=== PATIENT | female | born 1955 | race Hispanic/Latino ===

== ENCOUNTER 2018-07-12 14:46 | Inpatient (IN) | payer MEDICARE ==
[~2018-07-12] VITALS: Ht 157.5 cm; Wt 71.0 kg
[2018-07-12] VITALS (10 sets, daily range): BP systolic 93–194; BP diastolic 64–95
--- NOTE | 2018-07-12 14:54 | NUR ---
Pt taken to CT via WC with Maddy Fernandez RN.
--- NOTE | 2018-07-12 15:02 | NUR ---
Return from CT scan.
[2018-07-12] MEDS ORDERED: METOPROLOL TARTRATE INJ 1 MG/ML VIAL ONE (15:17)
[2018-07-12] MEDS ORDERED: NICARDIPINE 20MG/200ML PREMIX 200 ML ONE (15:26)
[2018-07-12] MEDS ORDERED: NICARDIPINE 20MG/200ML PREMIX 200 ML IV PRN (15:30)
--- NOTE | 2018-07-12 15:32 | Diagnostic Imaging Report ---
History:Stroke protocol, numbness Comparison studies:None Technique: Axial images were obtained from the skull base to the vertex. Coronal and sagittal images reconstructed from the axial data. Intravenous contrast: None Dose modulation, iterative reconstruction, and/or weight based adjustment of the mA/kV was utilized to reduce the radiation dose to as low as reasonably achievable. Findings: Scalp/skull: No abnormalities. Extra-axial spaces: No masses. No fluid collections. Brain sulci: Mildly prominent. Ventricles: Mild compensatory dilatation. No hydrocephalus. Parenchyma: Small scatterd hypodensities in the supratentorial white matter are small vessel ischemic changes. Small chronic lacunar infarcts at the right putamen and bilateral thalami. No masses, hemorrhage, acute or chronic cortical vascular insults. Sellar/suprasellar region: No abnormalities. Craniocervical junction: Patent foramen magnum. No Chiari one malformation. Incidental findings: Atherosclerotic calcifications in the carotid siphons . Impression: No acute abnormalities. No hemorrhage. Chronic findings: 1. Mild generalized volume loss. 2. Mild supratentorial white matter small vessel ischemic changes. 3. Small chronic lacunar infarcts at the right putamen and bilateral thalami Signed by: DR Basim Ramirez M.D. on 07/12/2018 3:29 PM
[2018-07-12] MEDS: NICARDIPINE 20MG/200ML PREMIX 200 ML IV PRN ×3 (15:35→20:59)
[2018-07-12 15:42] LABS: INR 0.87; PARTIAL THROMBOPLASTIN TIME 19.4 seconds (23.8-35.5); PROTHROMBIN TIME 12.6 seconds (11.9-14.5)
[2018-07-12 15:45] LABS: BASOPHILS # (AUTO) 0.1 (0.0-0.1); BASOPHILS % 0.8 % (0.0-1.0); EOSINOPHILS # (AUTO) 0.4 (0.0-0.4); EOSINOPHILS % 3.7 % (0.0-6.0); HEMATOCRIT 42.8 % (34.2-44.1); HEMOGLOBIN 14.7 g/dL (12.0-16.0); LYMPHOCYTES % 19.6 % (18.0-39.1); MEAN CORPUSCULAR HEMOGLOBIN 26.7 pg (28-32); MEAN CORPUSCULAR HGB CONC 34.3 g/dL (31-35); MEAN CORPUSCULAR VOLUME 77.8 fL (81-99); MONOCYTES # (AUTO) 0.3 (0.2-0.8); MONOCYTES % 2.9 % (4.4-11.3); NEUTROPHILS # (AUTO) 7.5 (2.1-6.9); NEUTROPHILS % 72.5 % (38.7-80.0); PLATELET COUNT 460 x10e3/uL (140-360); RED CELL DISTRIBUTION WIDTH 13.4 % (11.7-14.4)
[2018-07-12] MEDS: SODIUM CHLORIDE 0.9% 1000ML 1,000 ML IV SCH (15:47)
[2018-07-12] MEDS ORDERED: SODIUM CHLORIDE 0.9% 1000ML 1,000 ML ONE (15:48)
--- NOTE | 2018-07-12 15:50 | NUR ---
X-ray at bedside.
[2018-07-12 15:52] LABS: ALBUMIN 1.9 g/dL (3.5-5.0); ALBUMIN/GLOBULIN RATIO 0.4 (0.8-2.0); ANION GAP 15.5 mmol/L (8-16); CALCIUM 8.7 mg/dL (8.4-10.2); CREATININE, SERUM 1.74 mg/dL (0.57-1.11); POTASSIUM 3.5 mmol/L (3.5-5.1)
[2018-07-12 15:59] LABS: CREATINE KINASE MB 1.4 ng/mL (0-5.0)
[2018-07-12] MEDS ORDERED: METOPROLOL TARTRATE INJ 1 MG/ML VIAL IV ONE (16:00)
[2018-07-12] MEDS ORDERED: ALTEPLASE 50 MG/VIAL (29 MILLION IU) IV ONE ×4 (16:00→16:27)
--- NOTE | 2018-07-12 16:11 | NUR ---
Consent signed & on chart.
--- NOTE | 2018-07-12 16:16 | Diagnostic Imaging Report ---
A single frontal view of the chest. HISTORY: Left arm and leg a sleep COMPARISON: None available. DISCUSSION: Portable technique, limits sensitivity of the exam. Overlying monitoring leads. Tubes/Lines: None Lungs and pleura: The lungs are well inflated. No evidence of a consolidative pneumonia or pulmonary alveolar edema. No definite pleural effusion or pneumothorax is identified. Heart and mediastinum: The cardiomediastinal silhouette appears unremarkable. Bones and soft tissues: Appear unremarkable, given this limited exam. IMPRESSION: No acute radiographic abnormality. Signed by: Dr. Naga Otero D.O., M.M.M. on 07/12/2018 4:12 PM
--- OUTSIDE RECORDS SUMMARY | 2018-07-12 17:01 | XMS REPORT ---
Author Author [facility] Address Unknown Phone Unavailable Care Team Providers Care Mechanical Facilities Technician Name Role Phone Sunni RIVER Unavailable Unavailable Problems This patient has no known problems. Allergies, Adverse Reactions, Alerts This patient has no known allergies or adverse reactions. Medications This patient has no known medications. Results Test Description Test Time Test Comments Text Results Atomic Results Result Comments CHEST SINGLE (PORTABLE) 2018-07-12 16:12:00 [facility] [address] [place] [address] Patient Name: DEO ESCUDERO MR #: [id number] : 1955 Age/Sex: 63/F Req #: [id number] Adm Physician: Ordered by: HANDY RIVERA ETHNOARCHAEOLOGIST Report #: [id number] Location: ER Room/Bed: Procedure: [id number] DX/CHEST SINGLE (PORTABLE) Exam Date: 07/12/18 Exam Time: 1555 REPORT STATUS: Signed A single frontal view of the chest. HISTORY: Left arm and leg a sleep COMPARISON: None available. DISCUSSION: Portable technique, limits sensitivity of the exam. Overlying monitoring leads. Tubes/Lines: None Lungs and pleura: The lungs are well inflated. No evidence of a consolidative pneumonia or pulmonary alveolar edema. No definite pleural effusion or pneumothorax is identified. Heart and mediastinum: The cardiomediastinal silhouette appears unremarkable. Bones and soft tissues: Appear unremarkable, given this limited exam. IMPRESSION: No acute radiographic abnormality. Signed by: Dr. Kalli Otero D.O., M.M.M. on 07/12/2018 4:12 PM Dictated By: KALLI OTERO DO 11 Transcribed By: SCAR on 07/12/181611 COPY TO: HANDY RIVERA NP CT BRAIN WO 2018-07-12 15:25:00 [place] [address] Patient Name: DEO ESCUDERO MR #: [id number] : 1955 Age/Sex: 63/F Req #: [id number] Adm Physician: Ordered by: JANIE RIVER MD Report #: [id number] Location: ER Room/Bed: Procedure: [id number] CT/CT BRAIN WO Exam Date: 07/12/18 Exam Time: 1450 REPORT STATUS: Signed History:Stroke protocol, numbness Comparison studies:None Technique: Axial images were obtained from the skull base to the vertex. Coronal and sagittal images reconstructed from the axial data. Intravenous contrast: None Dose modulation, iterative reconstruction, and/or weight based adjustment of the mA/kV was utilized to reduce the radiation dose to as low as reasonably achievable. Findings: Scalp/skull: No abnormalities. Extra-axial spaces: No masses. No fluid collections. Brain sulci: Mildly prominent. Ventricles: Mild compensatory dilatation. No hydrocephalus. Parenchyma: Small scatterd hypodensities in the supratentorial white matter are small vessel ischemic changes. Small chronic lacunar infarcts at the right putamen and bilateral thalami. No masses, hemorrhage, acute or chronic cortical vascular insults. Sellar/suprasellar region: No abnormalities. Craniocervical junction: Patent foramen magnum. No Chiari one malformation. Incidental findings: Atherosclerotic calcifications in the carotid siphons . Impression: No acute abnormalities. No hemorrhage. Chronic findings: 1. Mild generalized volume loss. 2. Mild supratentorial white matter small vessel ischemic changes. 3. Small chronic lacunar infarcts at the right putamen and bilateral thalami Signed by: DR Basim Ramirez M.D. on 07/12/2018 3:29 PM Dictated By: BASIM VIRK MD 1529 Transcribed By: SCAR on 07/12/18 1529 COPY TO: JANIE RIVER MD
[2018-07-13] VITALS (27 sets, daily range): BP systolic 124–195; BP diastolic 53–100
[2018-07-13 04:46] LABS: BASOPHILS # (AUTO) 0.1 (0.0-0.1); BASOPHILS % 0.9 % (0.0-1.0); EOSINOPHILS # (AUTO) 0.4 (0.0-0.4); EOSINOPHILS % 2.8 % (0.0-6.0); HEMOGLOBIN 14.4 g/dL (12.0-16.0); LYMPHOCYTES # (AUTO) 4.8 (1.0-3.2); LYMPHOCYTES % 34.1 % (18.0-39.1); MEAN CORPUSCULAR HEMOGLOBIN 27.1 pg (28-32); MEAN CORPUSCULAR HGB CONC 35.1 g/dL (31-35); MEAN CORPUSCULAR VOLUME 77.1 fL (81-99); MONOCYTES # (AUTO) 0.6 (0.2-0.8); MONOCYTES % 4.2 % (4.4-11.3); NEUTROPHILS # (AUTO) 8.1 (2.1-6.9); NEUTROPHILS % 57.6 % (38.7-80.0); PLATELET COUNT 415 x10e3/uL (140-360); RED BLOOD COUNT 5.32 x10e6/uL (3.6-5.1); RED CELL DISTRIBUTION WIDTH 13.5 % (11.7-14.4)
[2018-07-13 04:58] LABS: INR 0.95; PROTHROMBIN TIME 13.5 seconds (11.9-14.5)
[2018-07-13 04:59] LABS: PARTIAL THROMBOPLASTIN TIME 29.4 seconds (23.8-35.5)
[2018-07-13 05:13] LABS: ALBUMIN 1.6 g/dL (3.5-5.0); ALBUMIN/GLOBULIN RATIO 0.5 (0.8-2.0); ANION GAP 11.8 mmol/L (8-16); CALCIUM 7.4 mg/dL (8.4-10.2); CHOL/HDL RATIO 9.6 (3.0-3.6); CREATININE, SERUM 1.52 mg/dL (0.57-1.11)
[2018-07-13 05:15] LABS: POTASSIUM 2.8 mmol/L (3.5-5.1)
[2018-07-13 05:24] LABS: CREATINE KINASE MB 0.8 ng/mL (0-5.0)
[2018-07-13] MEDS ORDERED: POTASSIUM CHLORIDE 20MEQ/100ML 200 ML IV ONE (07:15)
[2018-07-13] MEDS ORDERED: DEXTROSE 50% SYRINGE 50 ML IV PRN (08:00)
[2018-07-13 08:40] LABS: FREE THYROXINE INDEX 1.9343 (1.4-3.8); THYROID STIMULATING HORMONE 3.078 uIU/mL (0.350-4.940)
[2018-07-13] MEDS: METOPROLOL TARTRATE 25 MG TAB PO SCH ×2 (09:00→09:15)
[2018-07-13] MEDS: NICARDIPINE 20MG/200ML PREMIX 200 ML IV PRN (09:21)
--- NOTE | 2018-07-13 09:24 | NUR ---
notified dr. armendariz of [facility]
--- NOTE | 2018-07-13 09:48 | History and Physical ---
Patient is here for status post CVA, status post TPA. HISTORY OF PRESENTING ILLNESS: This is Ms. Anderson with a history of diabetes mellitus, hypertension, hyperlipidemia, history of CVA in the past, who was in his usual state of health until yesterday 15 to 20 minutes before arrival. The patient started to have facial droop, left-sided weakness, and left-sided paresthesias, and difficulty walking. Came in, received TPA. Patient is currently in the ICU receiving Cardene drip and also on neuro checks. Currently, patient's status is unchanged. Patient did not see any improvement status post TPA and currently n.p.o. 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 MEDICATIONS: Unknown. Does not remember name of her medications. PAST SURGICAL HISTORY: Patient had a hysterectomy. Also had appendectomy and tubal ligation. Patient did have cataract surgery x3 and also history of CVA apparently in the right eye. ALLERGIES: ALLERGIC TO BENADRYL, IODINE, TOMATOES, AND VANCOMYCIN. SOCIAL HISTORY: Positive for smoking in the past, currently nonsmoker, 5-pack history noted by the family. No ETOH and no IV drug abuse also noted. REVIEW OF SYSTEMS: Negative for chest pain. No shortness of breath. No nausea, vomiting, diarrhea. No constipation. No rectal pain, no hematochezia, no hematemesis. Positive for paresthesias and weakness as mentioned above and no diplopia and no blurry vision also noted. Patient does have a facial droop as noted above. PHYSICAL EXAMINATION GENERAL: Patient is alert and oriented x3, communicating well, no complaints. Has facial drooping present. HEENT: Normocephalic, atraumatic otherwise. CVS: S1, S2 normal. Regular rate and rhythm. ABDOMEN: Nontender, nondistended. EXTREMITIES: No clubbing, no cyanosis, no edema. NEUROLOGICAL: Facial droop noted. Patient with left-sided weakness, hyperreflexia on the left side with no Babinski's present. LABORATORY VALUES: The patient's hematology, white count was 10,000 with an increase to 14,000, hemoglobin is 14.7, platelet count was 460,000. Neutrophil count of 72.5, lymphocyte count was 2.0. Chemistries: Sodium was 139, potassium 3.5 and today is 2.8, replaced, BUN of 19, creatinine of 1.74, glucose of 245, BNP was 192, albumin was 1.9 with a globulin of 4.3. LDL was 272, HDL of 39, cholesterol 374, triglycerides of 313. IMAGING STUDIES: Brain CT showed mild generalized volume loss, mild supratentorial white matter small vessel disease, and small lacunar infarct at the right and bilateral thalami. MEDICATIONS: Currently is on nicardipine, Cardene drip, and potassium chloride which has been given 40 mEq, and sodium chloride at 50 mL an hour. ASSESSMENT: Cerebrovascular accident. PLAN 1. To continue the patient on Cardene drip now. Start the patient on metoprolol 12.5 mg twice a day for rate control. We will keep the blood pressure on the higher side. 2. Echocardiogram has been ordered. 3. Carotid Doppler. 4. Cardiology consult with Dr. Murphy has been done. 5. Patient's IV fluids will be increased to 75 mL an hour to improve perfusion. 6. Go ahead and start the patient on atorvastatin 40 mg for lipid control. 7. For diabetes, hemoglobin A1c will be done and the patient is put on insulin sliding scale. 8. Swallow evaluation has been ordered and will be done. In the interim, we will keep the patient n.p.o. 9. Consult with Dr. Ley is ordered. 10. MRA of the neck and brain has been also ordered. 11. We will continue monitoring the patient along with the consultants and await further testing and studies to be done. In the meantime, we will keep the patient n.p.o. Old records from the old CVA will also be obtained. Further recommendation per clinical course. Job#: [id number] HYUN
--- NOTE | 2018-07-13 10:58 | NUR ---
G[facility] Cespedes and Av notified that pt does not tolerate any po, orders rec'd.
[2018-07-13] MEDS ORDERED: ONDANSETRON HCL INJ 2MG/ML 2ML 2 MG/ML VIAL IV PRN (11:00)
[2018-07-13] MEDS ORDERED: ACETAMINOPHEN 325 MG SUPP PR PRN (11:00)
[2018-07-13] MEDS: SODIUM CHLORIDE 0.9% 1000ML 1,000 ML IV SCH (11:17)
[2018-07-13] MEDS: PANTOPRAZOLE 40 MG 10ML VIAL IV SCH (11:17)
[2018-07-13] MEDS: INSULIN LISPRO 100 UNIT/1 ML 3ML VIAL SQ SCH ×3 (11:30→20:57)
[2018-07-13] MEDS: METOPROLOL TARTRATE INJ 1 MG/ML VIAL IV SCH ×2 (12:00→18:00)
--- NOTE | 2018-07-13 15:00 | Consultation ---
DATE OF CONSULTATION: July 13, 2018 NEUROLOGY CONSULT NOTE HISTORY OF PRESENT ILLNESS: Ms. 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 At approximately 1330 on the day of admission, the patient awoke with left hemiparesis and left hemihypesthesia with the face and arm being more affected than the leg. Ms. Anderson reports dysarthria, mild expressive aphasia, poor balance, and impairment of gait associated with the above symptoms. The patient does not report a new or worsening visual field cut or other disturbance, though she does report chronic loss of vision in the right eye from a prior central retinal artery occlusion. She does not report confusion or dizziness. It is important to note the patient's last seen normal time was midnight on July 12, 2018. After she awoke with the above symptoms, Ms. Anderson alerted her daughter who brought her to the emergency center at [facility] for further evaluation. Upon arrival in the emergency center, the patient was afebrile with a blood pressure of 195/133 mmHg, pulse of 95 beats per minute, respiratory rate of 18 breaths per minute, and pulse oximetry of 100% on room air. The patient's neurological examination was documented as showing mild left-sided facial weakness, left arm weakness, left leg weakness, mild left-sided pronator drift, and "sensory deficit noted." A CT of the brain without contrast was obtained while the patient was in the emergency center. On my review, there is no evidence of recent large territorial ischemia or hemorrhage. The information obtained by the emergency center physician was somewhat different than the information detailed above. The emergency center physician was told the above described deficits began abruptly at 1300 on the day of admission. The last seen normal time of midnight on the day of admission was not communicated to the emergency center physician. Therefore, the emergency center physician determined the patient was an appropriate candidate for intravenous thrombolytics. Prior to treatment with intravenous thrombolytics, the patient was given a single dose of metoprolol intravenously to decrease her systolic blood pressure to less than 185 mmHg. Unfortunately, Ms. Anderson did not respond to treatment with this medication. Therefore, the patient was prescribed a continuous nicardipine infusion which was titrated, so the desired blood pressure goals could be met. At 1627 on July 12, 2018, Ms. Anderson received a bolus dose of tPA 6.4 mg intravenously x1. This was followed by an infusion of tPA 57.5 mg intravenously over 1 hour. The infusion was started at approximately 1635. After completing treatment with intravenous thrombolytics, the patient was transferred to the intensive care unit at [facility] for close observation and further evaluation and treatment of her symptoms. The patient does not report experiencing similar symptoms previously. At present, the patient has not taken an antiplatelet or anticoagulant medication for at least 1 month. REVIEW OF SYSTEMS: Chills, chronic loss of vision in the right eye, dysarthria, expressive aphasia, left facial weakness, left arm and leg weakness, left facial numbness, left arm and leg numbness, impairment of balance and gait. Otherwise, a 12-point review of systems is negative. PAST MEDICAL HISTORY: Hypertension, hyperlipidemia, diabetes mellitus type 2, prior history of migraines, prior transient ischemic attacks, chronic vision loss in the right eye secondary to central retinal artery occlusion. PAST SURGICAL HISTORY: Partial hysterectomy, bilateral tubal ligation, appendectomy, cholecystectomy, bilateral cataract removal. PAST HOSPITALIZATIONS: Surgeries/procedures as listed, transient ischemic attacks (multiple hospitalizations), childbirth x5. FAMILY MEDICAL HISTORY: Diabetes mellitus, coronary artery disease/myocardial infarction, breast cancer. SOCIAL HISTORY: Ms. Anderson is . She is retired. The patient does report a prior history of tobacco use, but quit smoking cigarettes 2 years ago. The patient does not report current or prior alcohol or recreational drug use. HOME MEDICATIONS: None. ALLERGIES: BENADRYL, VANCOMYCIN, TOMATO. NO KNOWN ALLERGIES TO LATEX. THE PATIENT DOES HAVE A DOCUMENTED ALLERGY TO IODINE. PHYSICAL EXAMINATION VITAL SIGNS: Height 60 inches, weight 162.5 pounds, BMI 31.7 kg per meter squared. Blood pressure 150/64 mmHg, pulse 81 beats per minute, respiratory rate 18 breaths per minute, oxygen saturation 99% on room air. GENERAL: The patient is awake and alert, moderately distressed secondary to her current deficits. Obese. HEENT: Normocephalic, atraumatic. Pupils are surgical. Moist mucous membranes. NECK: Supple. No appreciable thyromegaly. No appreciable carotid bruits. CARDIOVASCULAR: S1, S2, regular rate and rhythm. No murmurs, rubs, or gallops. RESPIRATORY: Clear to auscultation bilaterally. No wheezes, rhonchi, or rales. EXTREMITIES: The skin is warm and dry. No clubbing, cyanosis, or edema. The posterior tibial and dorsalis pedis pulses are 2+ and symmetric. Skin: No rashes or lesions. NEUROLOGIC Memory/Attention: The patient is awake and alert, oriented to person, place, time, and situation. Cranial Nerves: Cranial nerve I - Not tested. Cranial nerve II, III, IV, and - Pupils are surgical. Extraocular movements intact. No nystagmus. Cranial nerve V - Sensation to light touch and pinprick is diminished in the left V1 through V3 distributions. Strength of the temporalis and masseter muscles is within normal limits. Cranial nerve VII - The face is asymmetric on the left as are all facial movements. There is moderate central left facial weakness. Cranial nerve VIII - Hearing is intact to finger rub bilaterally. Cranial nerve IX, X - The soft palate elevates equally and symmetrically. Cranial nerve XI- Normal strength of the bilateral sternocleidomastoid and trapezius muscles. Cranial nerve XII - The tongue protrudes midline and moves symmetrically from [id number]. Strength: Bulk is normal. Strength is 5/5 in the right deltoid, bicep, tricep, wrist flexors and extensors, finger flexors and extensors, intrinsic hand muscles, hip flexors, knee flexors and extensors, ankle dorsiflexion and plantar flexion, and intrinsic foot muscles. Tone is normal in the right arm and right leg. There is positive drift in the left arm in less than 10 seconds. Strength of the left arm flexors is 4/5. Strength of the left arm extensors is 3+/5. There is drift in the left leg in less than 5 seconds. Strength of the left leg flexors is 3+/5. Strength of the left leg extensors is 4/5. Tone is decreased in the left arm and left leg. DTRs: Deep tendon reflexes are 2+ and symmetric at the triceps, biceps, brachioradialis, and patellas. Deep tendon reflexes are absent and symmetric at the Achilles. Plantar responses are flexor bilaterally. Sensation: Sensation is diminished to light touch and pinprick over the left arm and left leg. Left hemisensory neglect is present. Visual hemineglect is not appreciated. Cerebellar: [id number] and heel-martinez movements are intact without dysmetria or other impairment on the right. These movements are impaired on the left, but within the bounds of paresis. Gait: Deferred. Speech: Spontaneous speech is moderately dysarthric without aphasia. Repetition is intact. Involuntary Movements: None. Pronator Drift: Left arm and left leg. LABORATORY DATA: The most recent comprehensive metabolic panel is significant for potassium of 2.8, chloride 112, carbon dioxide of 18, creatinine 1.2, estimated GFR of 34, glucose of 144, total protein of 4.7, albumin of 1.6. Cardiac enzymes are negative x2. B-natriuretic peptide 192.7. TSH 3.078, free T4 index 1.9343, thyroxine (T4) 5.75, T3 uptake 33.64. Total cholesterol 374, triglycerides 313, LDL cholesterol 272, HDL cholesterol 39. The hemoglobin A1c is 8.8. The CBC with differential and platelets reveals a white blood cell count of 14.04 with 57.6% neutrophils, 34.1% lymphocytes, 4.2% monocytes, 2.8% eosinophils, and 0.9% basophils. The hemoglobin and hematocrit are 14.4 and 41.0, respectively. The platelet count is 115. PT, PTT and INR are within normal limits. DIAGNOSTIC STUDIES 1. Electrocardiogram, July 12, 2018: Sinus rhythm at 89 beats per minute with first-degree AV block. 2. CT of the brain without contrast, July 12, 2018: On my review, there is no evidence of recent large territorial ischemia, hemorrhage, mass, or mass effect. Chronic lacunar infarcts are seen in the right putamen and bilateral thalami. There is mild diffuse cerebral atrophy, more than expected for age, with compensatory dilatation of the ventricles. There are findings compatible with [id number] chronic small vessel ischemic disease. 3. Chest x-ray, July 12, 2018: No acute radiographic abnormality. 4. Echocardiogram, July 12, 2018: Ejection fraction 50% to 55%. Trace pericardial effusion. Trace tricuspid regurgitation, aortic insufficiency, and pulmonic insufficiency. ASSESSMENT AND PLAN: Ms. Anderson is a 63-year-old right hand dominant woman with multiple vascular risk factors (not compliant with treatments), admitted with a probable right middle cerebral artery stroke with cortical involvements. The patient is status post treatment with intravenous thrombolytics with no improvement of her symptoms. Fortunately, it does not appear that there was any worsening of the patient's symptoms. Ms. Anderson has undergone a thorough neurological evaluation with findings detailed above. The patient's laboratory data and diagnostic studies have been reviewed and are documented above. RECOMMENDATIONS: Are as follows: 1. An MRI of the brain without contrast and MRA of the brain and neck without contrast have been ordered and are pending. Follow up those results. 2. A repeat CT of the brain without contrast will be performed at approximately 1700 as a neuroimaging study approximately 24 hours, status post tPA is necessary. 3. If there is no evidence of hemorrhage on the CT of the brain without contrast, aspirin 325 mg per rectum daily will be prescribed. 4. The patient's goal blood pressure is 170 to 200 mmHg over 70 to 100 mmHg. Titrate Cardene drip to goal. In 24 to 48 hours post stroke (July 14, 2018), the blood pressure may be normalized to a goal of less than 140/90 mmHg. 5. The patient's goal total cholesterol is less than 200 with a LDL less than 70. Ms. Anderson's total cholesterol and LDL cholesterol are far above their goals. Treatment with atorvastatin 80 mg by mouth at bedtime daily will be initiated once the patient is able to tolerate p.o. medications. 6. The patient's goal hemoglobin A1c is less than 7.0. Ms. Anderson's hemoglobin A1c is 8.8. Continue treatment with sliding scale insulin per protocol. Defer treatment of the patient's diabetes mellitus type 2 to the primary service. 7. Speech therapy has been consulted for a swallow evaluation. Follow up on those results. A physical therapy evaluation will be ordered once the patient's blood pressure is better controlled. 8. GI prophylaxis with Protonix 40 mg IV daily. DVT prophylaxis with [place] hose and SCDs. If there is no evidence of hemorrhage on the repeat CT of the brain, DVT prophylaxis with heparin 5000 units subcutaneously q.12 hours will be initiated. 9. Defer treatment of the remaining medical comorbidities to the primary and other services. Thank you for this consultation. I will continue to follow this patient while she remains in the hospital. TIME SPENT: 70 minutes. Job#: [id number] CAITY WOODWARD
--- NOTE | 2018-07-13 15:04 | Consultation ---
DATE OF CONSULTATION: July 13, 2018 CARDIAC CONSULTATION REASON FOR CONSULTATION: CVA, hypertension, diabetes mellitus, and multiple health problems. HISTORY: This is a 63-year-old lady, very poor historian, diabetic, hypertensive, hyperlipidemic. Prior history of CVA in the past with good recovery. As per patient's daughter and herself, she is taking her medications but sometimes she missed them. Patient came to this institution with left body sided weakness, facial droop, and difficulty talking. She had tPA. She was started on Cardene drip, admitted to intensive care unit. Cardiac consultation is obtained. I visited the patient in intensive care unit, her family at bedside. Information from the patient who is communicative as well as her daughter who knows about her a lot. Apparently, patient denied having any prior cardiac issue, i.e., no orthopnea, no paroxysmal nocturnal dyspnea, no angina, no palpitation, no syncope, no prior atrial fibrillation. By questioning them, she is not aware what caused her previous stroke. Her physician did not tell her that. She claims she takes her medication for hypertension but sometimes she missed them. Prior to this stroke, she was fully active with shortness of breath on exertion, class II, and no other cardiovascular system complaint. PAST MEDICAL HISTORY 1. Hypertension. 2. Diabetes mellitus. 3. Hyperlipidemia. 4. Prior CVA in the past. 5. 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 6. GERD. MEDICATIONS: One medication for high blood pressure, 1 medication for diabetes, 1 medication for cholesterol but she does not recall the name. ALLERGIES: BENADRYL, IODINE, VANCOMYCIN. SOCIAL HISTORY: Ex-smoker, [id number]. REVIEW OF SYSTEMS GENERAL: No fever. No chills. HEENT: Blindness of the right eye, which is chronic, following the cataract surgery. PULMONARY: No cough. No hemoptysis. CARDIAC: No orthopnea. No paroxysmal nocturnal dyspnea. No syncope. No presyncope. GI: No hematemesis. No melena. No nausea. No vomiting. : Increased frequency of urination. Repeated UTIs. No hematuria. No dysuria. MUSCULOSKELETAL: No aches. No pain. NEUROLOGICAL: Prior history of CVA with good recovery. FAMILY HISTORY: There is no family history of premature coronary artery disease. PHYSICAL EXAMINATION VITAL SIGNS: Height of 5 feet, weight of 162 pounds, blood pressure 130/70, heart rate of 80, respiratory rate of 18. HEENT: Blindness of the right eye. NECK: No elevation of jugular venous pulsation. No bruit. CHEST: Few basilar crackles. HEART: PMI at fifth left intercostal space. Normal first and second heart sounds. ABDOMEN: Soft with no organomegaly. No abdominal bruits. EXTREMITIES: No cyanosis. No clubbing. No edema. NEUROLOGIC: Left facial droop, left body sided weakness. LAB DATA: Sodium of 139, potassium of 2.8, BUN 21, creatinine of 1.52, glucose of 144, white blood cell count of 14,000, hemoglobin of 14.4, hematocrit 44%, platelet count of 415,000. EKG, normal sinus rhythm, nonspecific ST changes. CT brain showed acute changes. No new insult. IMAGING: Chest x-ray showed no volume overload, mild cardiomegaly possibly related to the technique. IMPRESSION 1. Acute cerebrovascular accident, status post tissue plasminogen activator with residual. 2. Diabetes mellitus. 3. Hypertension. 4. Hypercholesterolemia. 5. Prior cerebrovascular accident. 6. Possible poor compliance. PLAN: Cardiac reece, plan will be to maintain blood pressure but to allow systolic up to 150 because of the recent stroke; however, I will discuss and will leave it up to the neurology for the level of systolic blood pressure and diastolic blood pressure but definitely not to let it drop below 150. We will check the echocardiogram. We will keep patient on telemetry, 4-hour regimen. We will check carotid Doppler. Care discussed with the patient, with the staff, and we will follow this patient's progression with you. Patient seen in intensive care unit. Job#: [id number] BRYCE
--- NOTE | 2018-07-13 18:05 | Diagnostic Imaging Report ---
Exam: Head CT without contrast Indication: Stroke, 1 day following TPA Comparison: Head CT 07/12/2018 Technique: Axial images were obtained from the skull base to the vertex. Coronal and sagittal images reconstructed from the axial data. Dose modulation, iterative reconstruction, and/or weight based adjustment of the mA/kV was utilized to reduce the radiation dose to as low as reasonably achievable. Intravenous contrast: None Findings: Scalp/skull: No abnormalities. Extra-axial spaces: No masses. No fluid collections. Brain sulci: Mildly prominent. Ventricles: Mild compensatory dilatation. No hydrocephalus. Parenchyma: Scattered hypodensities in the supratentorial white matter are small vessel ischemic changes. No masses, hemorrhage, acute or chronic cortical vascular insults. Sellar/suprasellar region: No abnormalities. Craniocervical junction: Patent foramen magnum. No Chiari one malformation. Incidental findings: Atherosclerotic calcifications in the carotid siphons . Impression: No acute abnormalities. No changes when compared to head CT dated 07/12/2018. Stable findings: 1. Mild generalized volume loss. 2. Mild supratentorial white matter small vessel ischemic changes. 3. Lacunar vascular insult in the right putamen and bilateral thalami. A preliminary report was provided by Dr. Barron on 07/13/2018 6:04 PM. Signed by: DR Basim Ramirez M.D. on 07/13/2018 7:51 PM
--- NOTE | 2018-07-13 19:00 | NUR ---
Report received. Assumed care. Assessment done. See interventions. 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 Left facial droop observed. Speak mostly clear. Left eye blind. IVF NS @ 75ml/hr.
[2018-07-13] MEDS: ATORVASTATIN 40 MG TAB PO SCH (20:05)
[2018-07-13] MEDS: ASPIRIN 300 MG SUPP PR SCH (20:44)
[2018-07-13] MEDS: HEPARIN SOD (PORCINE) 5,000 UNIT/ML VIAL SC SCH (20:47)
[2018-07-13] MEDS ORDERED: ATORVASTATIN 20 MG TAB PO SCH (21:00)
[2018-07-14] VITALS (45 sets, daily range): BP systolic 155–220; BP diastolic 52–162
[2018-07-14] MEDS: SODIUM CHLORIDE 0.9% 1000ML 1,000 ML IV SCH (01:38)
[2018-07-14 04:51] LABS: BASOPHILS # (AUTO) 0.1 (0.0-0.1); BASOPHILS % 0.9 % (0.0-1.0); EOSINOPHILS # (AUTO) 0.4 (0.0-0.4); EOSINOPHILS % 3.6 % (0.0-6.0); HEMATOCRIT 39.1 % (34.2-44.1); LYMPHOCYTES # (AUTO) 3.8 (1.0-3.2); LYMPHOCYTES % 34.5 % (18.0-39.1); MEAN CORPUSCULAR HEMOGLOBIN 26.8 pg (28-32); MEAN CORPUSCULAR HGB CONC 33.2 g/dL (31-35); MONOCYTES # (AUTO) 0.5 (0.2-0.8); MONOCYTES % 4.4 % (4.4-11.3); NEUTROPHILS # (AUTO) 6.2 (2.1-6.9); NEUTROPHILS % 56.2 % (38.7-80.0); PLATELET COUNT 396 x10e3/uL (140-360); RED BLOOD COUNT 4.85 x10e6/uL (3.6-5.1); RED CELL DISTRIBUTION WIDTH 13.8 % (11.7-14.4)
[2018-07-14 04:59] LABS: MEAN CORPUSCULAR VOLUME 80.6 fL (81-99)
[2018-07-14 05:18] LABS: ALBUMIN 1.4 g/dL (3.5-5.0); ALBUMIN/GLOBULIN RATIO 0.5 (0.8-2.0); CALCIUM 7.6 mg/dL (8.4-10.2); CHOL/HDL RATIO 10.1 (3.0-3.6); CREATININE, SERUM 1.33 mg/dL (0.57-1.11)
[2018-07-14 05:41] LABS: THYROID STIMULATING HORMONE 3.263 uIU/mL (0.350-4.940)
[2018-07-14] MEDS: METOPROLOL TARTRATE INJ 1 MG/ML VIAL IV SCH ×3 (05:49→12:00)
--- NOTE | 2018-07-14 07:08 | Progress Note ---
DATE: Patient is in ICU 190. Patient is status post CVA. Currently, no more neurological deficits. Patient did try swallowing, and had some episodes of choking. Currently, n.p.o. Patient is otherwise doing good and slept well. No BM yesterday. MEDICATIONS: The patient is on Tylenol suppository, aspirin every day suppository, atorvastatin, on heparin, insulin Lispro for diabetes with sliding scale, metoprolol injection, Cardene drip, pantoprazole, and sodium chloride for perfusion. OBJECTIVE VITAL SIGNS: The patient's temperature is 98.7, pulse of 66, respirations of 14, blood pressure is 180/76. The patient's O2 is 100% on room air. GENERAL: Alert and oriented times 3. The patient is dysarthric. HEENT: Normocephalic and atraumatic. Patient has a facial droop. NECK: No JVD present. No appreciable carotid bruits. CARDIOVASCULAR: S1 and S2 normal. Regular rate and rhythm. RESPIRATORY: Clear to auscultation bilaterally. EXTREMITIES: No clubbing. No cyanosis. No edema. Positive for bilateral pedal pulses. NEUROLOGICAL: Patient has hemiparesis. ASSESSMENT: A 63-year-old lady with: 1. Cerebrovascular accident. 2. History of hypertension. 3. History of hyperlipidemia. 4. History of diabetes mellitus. 5. History of noncompliance. 6. Status post thrombolytic treatment. PLAN: Continue monitoring the patient. MRA has been ordered and has not been done of the brain and the neck. Will continue monitoring the patient. The patient's laboratory values are white count is 11,000 today, hemoglobin 13, hematocrit of 30. Neutrophil count of 56.3 and platelet count is 396,000. Chemistry shows sodium of 139, potassium 3, BUN of 20, creatinine of 1.33. Hemoglobin A1c is 8.8. Calcium 7.6. LDL is 259. Total cholesterol 344. Continue the perfusion. Keep her blood pressure on the higher side. Will continue monitoring the patient. Check echocardiogram. Of course, MRI of the brain. Further recommendations per clinical course, and also depending on further studies. Job#: [id number] AAKASH
[2018-07-14] MEDS: INSULIN LISPRO 100 UNIT/1 ML 3ML VIAL SQ SCH ×4 (07:30→21:00)
[2018-07-14] MEDS ORDERED: POTASSIUM CHLORIDE 20MEQ/100ML 200 ML IV ONE (08:00)
[2018-07-14] MEDS ORDERED: MAGNESIUM SULFATE 2GM/50ML 50 ML IV ONE (08:00)
[2018-07-14] MEDS: PANTOPRAZOLE 40 MG 10ML VIAL IV SCH (08:20)
[2018-07-14] MEDS: ASPIRIN 300 MG SUPP PR SCH (08:20)
[2018-07-14] MEDS: HEPARIN SOD (PORCINE) 5,000 UNIT/ML VIAL SC SCH ×2 (08:21→21:02)
[2018-07-14] MEDS ORDERED: POTASSIUM CHLORIDE 20MEQ/100ML 200 ML ONE (09:35)
--- NOTE | 2018-07-14 13:09 | NUR ---
MD Cespedes notified of pt passing MBS, new orders approved. stated that pt can go to [facility] with tele if approved by other providers. Pt eating, verbalizes importance of keeping airway clear, keeping HOB up, coughing, and deep breathing.
--- NOTE | 2018-07-14 13:20 | Diagnostic Imaging Report ---
MRI BRAIN WO HISTORY: Weakness, right-sided facial droop COMPARISON: Head CT 07/13/2018 TECHNIQUE: Sagittal T2, axial T2, axial T1, axial T2/FLAIR, axial gradient echo (or susceptibility weighted), coronal T2/FLAIR, and axial diffusion weighted MR images of the brain were obtained without contrast. Motion artifacts obscure some details. DISCUSSION: Scalp/bone marrow: Unremarkable. Brain sulci: Appropriate for patient's age. Ventricles: Normal in size and configuration. No hydrocephalus. Extra-axial spaces: No masses or fluid collections. Parenchyma: Scattered small areas of diffusion restriction (bright on DWI, dark on ADC) are seen in the right myles radiata and right striatocapsular region. No other diffusion restricting abnormalities are seen. Scattered T2/FLAIR hyperintense foci throughout the supratentorial white matter on are likely chronic microvascular ischemic changes. There is an old small left thalamic lacunar infarct. Otherwise, no mass or hemorrhage. Vessels: Normal flow voids in major arteries and veins. Sellar/Suprasellar region: No abnormalities. Craniocervical junction: No abnormalities. Incidental findings: Both ocular lenses are thinned. The adenoid tonsils are prominent. IMPRESSION: 1. Few small acute lacunar infarcts in the right myles radiata and right striatocapsular region. 2. Mild to moderate supratentorial/pontine chronic microvascular ischemic change. 3. Old small left thalamic lacunar infarct. Signed by: Dr. Spencer Sanches M.D. on 07/14/2018 1:17 PM
--- NOTE | 2018-07-14 13:28 | Diagnostic Imaging Report ---
MRA NECK WO, MRA HEAD WO HISTORY: Weakness, right-sided facial droop COMPARISON: Concurrent MRI of the brain TECHNIQUE: Axial 2D cervical, and axial 3D intracranial [id number]-[id number] MRA images were obtained without contrast. Maximum intensity projection and coronal/sagittal reformatted images were created. If present, any cervical carotid stenosis will be measured as a percentage relative to the [place] artery distal to the stenosis. Intracranial MRA source axial images and MIPS were reviewed on [email or web address] system. FINDINGS: CERVICAL MRA: Motion and noise artifacts obscure some details. Right Carotid: No flow abnormalities. Left Carotid: No flow abnormalities. Right vertebral artery: No flow abnormalities. Left vertebral artery: No flow abnormalities. INTRACRANIAL MRA: Carotid arteries: No flow abnormalities in the intracranial internal carotid arteries. Normal A1 and M1 segments. Vertebrobasilar Circulation: Right vertebral artery: No flow abnormalities. Left vertebral artery: No flow abnormalities. Basilar artery: No flow abnormalities. Posterior cerebral arteries: No flow abnormalities. Normal Variants: ACom: May be patent. PComs: Not visualized on the left. Persistent circulation on the right. Vertebral arteries: Co-dominant. IMPRESSION: No cervical or intracranial MRA abnormalities. Signed by: Dr. Spencer Sanches M.D. on 07/14/2018 1:24 PM
--- NOTE | 2018-07-14 13:28 | Diagnostic Imaging Report ---
MRA NECK WO, MRA HEAD WO HISTORY: Weakness, right-sided facial droop COMPARISON: Concurrent MRI of the brain TECHNIQUE: Axial 2D cervical, and axial 3D intracranial [id number]-[id number] MRA images were obtained without contrast. Maximum intensity projection and coronal/sagittal reformatted images were created. If present, any cervical carotid stenosis will be measured as a percentage relative to the [place] artery distal to the stenosis. Intracranial MRA source axial images and MIPS were reviewed on [employer] system. FINDINGS: CERVICAL MRA: Motion and noise artifacts obscure some details. Right Carotid: No flow abnormalities. Left Carotid: No flow abnormalities. Right vertebral artery: No flow abnormalities. Left vertebral artery: No flow abnormalities. INTRACRANIAL MRA: Carotid arteries: No flow abnormalities in the intracranial internal carotid arteries. Normal A1 and M1 segments. Vertebrobasilar Circulation: Right vertebral artery: No flow abnormalities. Left vertebral artery: No flow abnormalities. Basilar artery: No flow abnormalities. Posterior cerebral arteries: No flow abnormalities. Normal Variants: ACom: May be patent. PComs: Not visualized on the left. Persistent circulation on the right. Vertebral arteries: Co-dominant. IMPRESSION: No cervical or intracranial MRA abnormalities. Signed by: Dr. Spencer Sanches M.D. on 07/14/2018 1:24 PM
--- NOTE | 2018-07-14 14:38 | Diagnostic Imaging Report ---
EXAM: Modified barium swallow with Speech Pathologist INDICATION: ^Reported coughing with po intake ^[id number] ^1200 COMPARISON: None available. RADIATION DOSE: Fluoroscopy Time: 1.4 min Dose (Kerma) Area Product: 2.58 Gycm2 Air Kerma (AK) value has been reviewed. It is below the limits set by the Radiation Protocol Committee (RPC) committee. FINDINGS: See impression IMPRESSION: Trace laryngeal penetration with thin liquids. No aspiration. Please see speech pathology report for detailed description and recommendations. Signed by: Dr. Dario Mcginnis M.D. on 07/14/2018 2:35 PM
--- NOTE | 2018-07-14 16:16 | NUR ---
MRI and MRA results read to MD Ley, orders rec'd. MD Ley states that pt can go to IMCU if okay with other MDs. Pt up to BSC with moderate assist.
--- NOTE | 2018-07-14 16:23 | NUR ---
MD Loyda Murphy paged and called, states that pt can go to [facility] from cardiology standpoint. Notified of pt's BP parameters and medications from MD Av MD stated that he concurred.
[2018-07-14] MEDS ORDERED: ACETAMINOPHEN 325 MG TAB PO PRN (16:30)
[2018-07-14] MEDS: METOPROLOL TARTRATE 25 MG TAB PO SCH (16:49)
[2018-07-14] MEDS: METOPROLOL TARTRATE INJ 1 MG/ML VIAL IV PRN ×2 (16:50→21:00)
[2018-07-14] MEDS: ATORVASTATIN 40 MG TAB PO SCH (21:01)
[2018-07-15] VITALS (23 sets, daily range): BP systolic 124–221; BP diastolic 54–121
[2018-07-15] MEDS: METOPROLOL TARTRATE INJ 1 MG/ML VIAL IV PRN ×2 (03:50→07:35)
[2018-07-15 04:46] LABS: BASOPHILS # (AUTO) 0.1 (0.0-0.1); BASOPHILS % 1.1 % (0.0-1.0); EOSINOPHILS # (AUTO) 0.6 (0.0-0.4); EOSINOPHILS % 5.2 % (0.0-6.0); HEMATOCRIT 41.2 % (34.2-44.1); HEMOGLOBIN 13.6 g/dL (12.0-16.0); LYMPHOCYTES # (AUTO) 3.3 (1.0-3.2); LYMPHOCYTES % 28.4 % (18.0-39.1); MEAN CORPUSCULAR HEMOGLOBIN 26.6 pg (28-32); MEAN CORPUSCULAR VOLUME 80.6 fL (81-99); MONOCYTES # (AUTO) 0.6 (0.2-0.8); MONOCYTES % 4.9 % (4.4-11.3); PLATELET COUNT 395 x10e3/uL (140-360); RED BLOOD COUNT 5.11 x10e6/uL (3.6-5.1); RED CELL DISTRIBUTION WIDTH 13.7 % (11.7-14.4)
[2018-07-15 05:05] LABS: ANION GAP 9.5 mmol/L (8-16); CALCIUM 7.7 mg/dL (8.4-10.2); CREATININE, SERUM 1.26 mg/dL (0.57-1.11); POTASSIUM 3.5 mmol/L (3.5-5.1)
[2018-07-15] MEDS: PANTOPRAZOLE 40 MG 10ML VIAL IV SCH (07:18)
[2018-07-15] MEDS: ASPIRIN 325 MG TAB PO SCH (07:18)
[2018-07-15] MEDS: METOPROLOL TARTRATE 25 MG TAB PO SCH ×2 (07:19→16:34)
[2018-07-15] MEDS: INSULIN LISPRO 100 UNIT/1 ML 3ML VIAL SQ SCH ×4 (07:30→20:52)
--- NOTE | 2018-07-15 07:44 | Progress Note ---
DATE: SUBJECTIVE: Patient is in ICU 190. Patient is here for acute CVA. Patient has no complaints today. Blood pressure has been running high, but does not have any chest pain. No shortness of breath or any worsening of neurological condition. PHYSICAL EXAMINATION: VITAL SIGNS: Temperature is 98.8, pulse of 88, respiration of 17, blood pressure is running high in the 187/70s, pulse oximetry of 100% O2, no room air. HEENT: Patient is having facial droop, dysarthric. CVS: S1, S2 normal. Regular rate and rhythm. ABDOMEN: Nontender, nondistended. EXTREMITIES: No clubbing, no cyanosis, no edema. NEUROLOGICAL: Left hemiparesis and no other neurological changes since the last examination. LABORATORY VALUES: Today's white count of 11.64, hemoglobin of 13.6, hematocrit of 41.2, platelet count is 395,000, neutrophil count 60. Coags are normal. Chemistries: Sodium of 136, potassium of 3.5, BUN of 17, creatinine of 1.26. IMAGING STUDIES: Patient's modified barium swallow, trace laryngeal penetration with thin liquids, no aspiration. Patient has been started on nectar thick diet. Brain MRI shows a few small acute lacunar infarcts in the right myles radiata and mild to moderate supratentorial and pontine chronic microvascular changes and old thalamic lacunar infarct too. Head MRA shows no cervical intracranial MRA abnormalities, and neck MRA shows no cervical intracranial abnormalities. ASSESSMENT: 1. Cerebrovascular accident. Continue to monitor the patient. 2. Hypertension. Will add amlodipine 10 mg, switch Lopressor to p.o. Lopressor. PLAN: Patient is to be transferred to intermediate medical care unit. Dr. Ley is being consulted. Physical therapy and occupational therapy will be continued. Further recommendations per clinical course. Will keep her inpatient until blood pressure has been monitored and controlled. Job#: [id number]
--- NOTE | 2018-07-15 08:53 | NUR ---
MD Ley stated that from Neurology standpoint, Bob can be removed. MD Murphy paged for continuing HTN despite all scheduled and prn meds given, awaiting response.
[2018-07-15] MEDS ORDERED: AMLODIPINE BESYLATE 10 MG TAB PO SCH (09:00)
[2018-07-15] MEDS ORDERED: HYDRALAZINE HCL 20 MG/ML VIAL IV PRN (09:15)
[2018-07-15] MEDS: HEPARIN SOD (PORCINE) 5,000 UNIT/ML VIAL SC SCH ×2 (09:27→20:51)
--- NOTE | 2018-07-15 14:50 | NUR ---
Report given to Sabiha Pastor RN.
--- NOTE | 2018-07-15 15:49 | NUR ---
[employer] to bedside to discuss plan of care with patient/family. CM/SW role and care transitions discussed. Anticipated discharge plan discussed along with duration of care. CM/SW discussed patients right to make decisions in care. CM/SW work hours given. Patient lives: with her son Alfonso Admit/Transfer: thru ED POA/Emergency contact: pt states emergency contact is daughter Roya Anderson, but she cannot remember her number at this time. 2nd contact is daughter and provider Farzana Durand [phone] Current/Previous Home Health: none PCP/Follow-up Care: does not have PCP, but says she will follow up with Dr. Cespedes on discharge. CM stressed importance of following up within 7 days of discharge. Pt verbalized understanding. Current/Previous DME: none; pt was previously independent. Now states she has weakness in her legs. States she "might need a hospital bed" Other Services: none Employment Status: retired Areas of Concerns: weakness due to CVA Referral Needs: PT recommending inpatient rehab Education Needs: safety, medical management, CVA education IMM/PRESLEY given and signed (if applicable): none at this time Goal for discharge: states she wants to go home, but is opened to therapy's recommendations. CM/SW left business card at the bedside with contact information. Name and number was also written on the patients whiteboard. Patient verbalized understanding of discussion. CM will follow-up with ongoing discharge and transition of care needs.
[2018-07-15] MEDS ORDERED: METOPROLOL TARTRATE INJ 1 MG/ML VIAL IV PRN (16:30)
[2018-07-15] MEDS: ATORVASTATIN 40 MG TAB PO SCH (20:50)
[2018-07-15] MEDS: HYDRALAZINE HCL 20 MG/ML VIAL IV PRN (21:40)
[2018-07-16] VITALS (7 sets, daily range): BP systolic 126–162; BP diastolic 58–74
--- NOTE | 2018-07-16 06:26 | NUR ---
DR. GORDON WANTS TO INFORM FAMILY PATIENT NEEDS TO GO TO SNF FOR INPATIENT REHAB. PATIENT IS UNSTEADY AND NEEDS MORE REHAB BEFORE GOING HOME.
--- NOTE | 2018-07-16 06:39 | Progress Note ---
DATE: Patient is in IMCU 197 status post stroke. No complaints today. Patient worked with physical therapy and occupational therapy. Found to be very unstable. Recommendation was to do inpatient rehab. Patient does not want to go into rehab. Wants to go home with DME. OBJECTIVE VITAL SIGNS: Today, temperature is 98.1, pulse of 82, respirations of 18, blood pressure is 145/84, pulse oximetry of 99%. HEENT: Normocephalic and atraumatic. Patient has facial droop. Patient has a left hemiparesis and also the patient has dysarthria. CV: S1 and S2 normal. Regular rate and rhythm. LUNGS: Clear to auscultation. ABDOMEN: Nontender and nondistended. EXTREMITIES: No clubbing. No cyanosis. No edema. NEUROLOGIC: Positive for left hemiparesis with dysarthria. Otherwise, no new neurological findings. LABORATORY VALUES: From yesterday, white count is 11.64 with no left shift. Chemistry: Glucose has been running in the 140s, 130s and 127. MEDICATIONS 1. Hydralazine q.6 h. p.r.n. 2. The patient is on heparin. 3. Atorvastatin 80 mg. 4. Metoprolol 12.5 mg twice a day. 5. Amlodipine 10 mg. 6. Pantoprazole 40 mg. 7. IV fluids have been stopped. ASSESSMENT: A 63-year-old woman with: 1. Cerebrovascular accident with left hemiparesis: MRI showing left middle cerebral artery distribution. Plan is to continue with aspirin. Continue with high-dose statins. Continue with physical therapy and occupational therapy. Again, recommend the patient to go to inpatient rehab versus SNF for continuous occupational and physical therapy. Will consider of the patient. 2. Hyperlipidemia: Continue on lipid-lowering agents. 3. Hypertension, controlled: Continue with amlodipine, lisinopril and metoprolol. 4. Diabetes mellitus: Will go ahead and start the patient on a low dose of Levemir today, 18 units of Levemir with sliding scale. 5. Gastrointestinal prophylaxis. Case management has been notified to consult for SNF or inpatient rehab. Further recommendations per clinical course. Again, the patient is very unstable in her gait, and would recommend physical therapy in SNF or inpatient rehab. Job#: [id number] RI
[2018-07-16] MEDS: INSULIN LISPRO 100 UNIT/1 ML 3ML VIAL SQ SCH ×4 (07:30→21:03)
[2018-07-16] MEDS: ASPIRIN 325 MG TAB PO SCH (09:08)
[2018-07-16] MEDS: PANTOPRAZOLE 40 MG 10ML VIAL IV SCH (09:08)
[2018-07-16] MEDS: METOPROLOL TARTRATE 25 MG TAB PO SCH ×2 (09:08→16:29)
[2018-07-16] MEDS: HEPARIN SOD (PORCINE) 5,000 UNIT/ML VIAL SC SCH ×2 (09:56→21:02)
--- NOTE | 2018-07-16 13:00 | NUR ---
ORDER FOR SNF [facility] NOTIFIED BY NURSING THAT PT AND FAMILY ARE REFUSING SNF THEY WANT PT TO GO HOME WITH HOME HEALTH, DME AND P.T. DR [facility] NOTIFIED OF PT'S WISHES
--- NOTE | 2018-07-16 14:07 | NUR ---
SHOWER AND LINEN CHANGE DONE
[2018-07-16] MEDS: ATORVASTATIN 40 MG TAB PO SCH (20:47)
[2018-07-16] MEDS: INSULIN DETEMIR 100 UNIT/ML PEN SQ SCH (21:03)
[2018-07-17] VITALS (7 sets, daily range): BP systolic 98–168; BP diastolic 47–83
--- NOTE | 2018-07-17 07:17 | Progress Note ---
DATE: Patient is here for status post stroke. Currently, no complaints. Wants to go home with DME. OBJECTIVE VITAL SIGNS: Temperature is 98.6, pulse of 81, respirations of 18, blood pressure is 148/72, pulse oximetry 99%. GENERAL: Alert and oriented times 3. The patient continues to have dysarthria and also continues to have facial droop. CV: S1 and S2 normal. LUNGS: Clear to auscultation bilaterally. ABDOMEN: Nontender and nondistended. EXTREMITIES: No clubbing. No cyanosis. No edema. NEUROLOGIC: Positive for left hemiparesis and dysarthria. No current other neurological findings. MEDICATIONS: Hydralazine, heparin, atorvastatin, metoprolol, amlodipine, pantoprazole. ASSESSMENT: A 63-year-old female with: 1. Cerebrovascular accident with left hemiparesis: Continue monitoring the patient. The patient is going to go home with DME. The patient's family has been advised not to, but the patient wants to go home. Physical therapy at home will be ordered. 2. Hyperlipidemia: Continue with atorvastatin. 3. Hypertension: Continue with amlodipine, lisinopril and metoprolol. 4. Diabetes mellitus: Continue with Levemir. 5. Gastrointestinal prophylaxis. Further recommendations as an outpatient. The patient is to follow up with her primary care physician as an outpatient. Job#: [id number] AAKASH
[2018-07-17] MEDS: INSULIN LISPRO 100 UNIT/1 ML 3ML VIAL SQ SCH ×4 (07:30→21:00)
[2018-07-17] MEDS: PANTOPRAZOLE 40 MG 10ML VIAL IV SCH (09:18)
[2018-07-17] MEDS: ASPIRIN 325 MG TAB PO SCH (09:18)
[2018-07-17] MEDS: METOPROLOL TARTRATE 25 MG TAB PO SCH ×2 (09:43→18:00)
[2018-07-17] MEDS: AMLODIPINE BESYLATE 10 MG TAB PO SCH (09:43)
[2018-07-17] MEDS: HEPARIN SOD (PORCINE) 5,000 UNIT/ML VIAL SC SCH ×2 (09:49→21:31)
[2018-07-17] MEDS ORDERED: METOPROLOL TARTRATE 25 MG TAB PO ONE (13:30)
--- NOTE | 2018-07-17 15:15 | NUR ---
ORDERS REC'D FOR HOME HEALTH, P.T./OT, SKILLED NURSE DME LEFT TEJAS, 3 IN 1 AND HOSPITAL BED CHOICE LETTER SIGNED FOR [facility] STAFF FOR HOME HEALTH PH: [phone] FAX: [phone] COPY OF CHOICE GIVEN TO PT CLINICALS FAXED; CONFIRMATION REC'D ORDERS FOR DME FAXED TO [facility] PHONE: [phone] FAX [phone] SPOKE WITH TRAVIS AT [facility] AND ASKED THAT LEFT FIDEWALLUZ BE DELIVERED TO PT'S ROOM DC IS PLANNED TUESDAY 07/18 IMM EXPLAINED, SIGNED AND ON CHART COPY TO PT GAVE PT MY CARD FOR QUESTIONS/CONCERNS
[2018-07-17] MEDS: ATORVASTATIN 40 MG TAB PO SCH (21:30)
[2018-07-17] MEDS: INSULIN DETEMIR 100 UNIT/ML PEN SQ SCH (21:36)
--- NOTE | 2018-07-17 23:50 | NUR ---
PT IS TRANSFERRED FROM [facility] .PT IS AOX2 /PT HAS LEFT SIDED WEAKNESS .PT RT EYE BLIND .RESPIRATIONS ARE EVEN AND UNLABORED .DENIES PAIN CALL LIGHT WITH IN REACH
[2018-07-18] VITALS: BP 184/74
[2018-07-18 04:00] VITALS: BP 184/84
[2018-07-18] MEDS: HYDRALAZINE HCL 20 MG/ML VIAL IV PRN (06:06)
[2018-07-18 06:31] VITALS: BP 184/84
--- NOTE | 2018-07-18 07:10 | NUR ---
RCD PT AT BED PT IS ALERT AND ORIENTED PT RESTING ON BED NO SIGNS OF ANY DISTRESS NOTED IV PATENT BED LOW AND LOCKED CALL LIGHT IN REACH
--- NOTE | 2018-07-18 07:12 | Progress Note ---
DATE: SUBJECTIVE: Patient is in 213, med-surg floor. Patient is status post CVA, status post tPA. No complaints today. Does have dysarthria and hemiparesis. Is progressing with physical therapy and wants to go home. The DME has been arranged at home and the patient is ready for discharge. CURRENT MEDICATIONS: Atorvastatin, hydralazine, insulin, and metoprolol. PHYSICAL EXAMINATION: VITAL SIGNS: Temperature is 98.4, pulse of 81, respiration of 18, pulse oximetry 93%. HEENT: Normocephalic, atraumatic. Dysarthria present. Patient has a facial droop. CVS: S1 and S2 normal. Regular rate and rhythm. ABDOMEN: Nontender, nondistended. EXTREMITIES: No clubbing, no cyanosis, no edema. NEUROLOGICAL: No new focal neurological changes. Patient has hemiparesis. LABORATORY VALUES: All within normal limits from the last time. Chemistries: Glucose is trending at 148. ASSESSMENT: 1. Cerebrovascular accident. Plan is to continue with physical therapy, occupational therapy. Patient is going to be going home with DME. Patient does not want to go to SNF. This has been talked to the patient and her family. 2. Diabetes mellitus, uncontrolled. Will continue on Levemir and also written prescription of Levemir has been given to the patient. 3. Hyperlipidemia. Continue statin. 4. Hypertension. Continue on current medication. Further recommendations as an outpatient. Patient can be discharged to home today and follow up with her primary care physician at a later date in 1 to 2 weeks. Job#: [id number]
[2018-07-18] MEDS: INSULIN LISPRO 100 UNIT/1 ML 3ML VIAL SQ SCH (07:30)
--- NOTE | 2018-07-18 07:30 | NUR ---
PT RESTING DENIES PAIN .CALL LIGHT WITH IN REACH.REPORT GIVEN TO TO THE ON COMING NURSE
[2018-07-18 08:00] VITALS: BP 127/62
[2018-07-18] MEDS: METOPROLOL TARTRATE 25 MG TAB PO SCH (09:00)
[2018-07-18] MEDS: AMLODIPINE BESYLATE 10 MG TAB PO SCH (09:00)
[2018-07-18] MEDS: PANTOPRAZOLE 40 MG 10ML VIAL IV SCH (09:00)
[2018-07-18] MEDS: ASPIRIN 325 MG TAB PO SCH (09:00)
[2018-07-18] MEDS: HEPARIN SOD (PORCINE) 5,000 UNIT/ML VIAL SC SCH (09:00)
[2018-07-18] MEDS ORDERED: AMLODIPINE BESYL5 MG PO (10:08)
[2018-07-18] MEDS ORDERED: PANTOPRAZOLE SO40 MG PO (10:08)
[2018-07-18] MEDS ORDERED: ATORVASTATIN CA10 MG PO (10:09)
[2018-07-18] MEDS ORDERED: METOPROLOL SUCC25 MG PO (10:10)
[2018-07-18] MEDS ORDERED: ASPIRIN325 MG PO (10:10)
--- NOTE | 2018-07-18 10:56 | NUR ---
PT WENT HOME IN SAFE CONDITION WITH HER DAUGHTER
== END 2018-07-18 10:56 | disposition home or self-care (01) | DRG 62 ==
LOC: ER 14:46 → ERHOLD 16:59 → ICU 18:21 → IMCU 07-15 14:37 → MED/SURG2 07-17 22:37
PROVIDERS: ADMIT Family Medicine; ATTEND Family Medicine
DX: I63.311 Cerebral infarction due to thrombosis of right middle cerebral artery (principal); H34.12 Central retinal artery occlusion, left eye; G81.94 Hemiplegia, unspecified affecting left nondominant side; I10 Essential (primary) hypertension; E11.9 Type 2 diabetes mellitus without complications; Z86.73 Personal history of transient ischemic attack (TIA), and cerebral infarction without residual deficits; K21.9 Gastro-esophageal reflux disease without esophagitis; E78.00 Pure hypercholesterolemia, unspecified; Z91.19 Patient's noncompliance with other medical treatment and regimen; H54.62 Unqualified visual loss, left eye, normal vision right eye; R29.810 Facial weakness
CPT/HCPCS: 36415; 70450; 70544; 70547; 70551; 71045; 74230; 80048; 80053; 80061; 82550; 82553; 82948; 83036; 83735; 83880; 84436; 84443; 84479; 84484; 85025; 85610; 85730; 93005; 93306; 93880; 96372; 97139; 99284; J0360; J1644; J3475; J3480; J7030

== ENCOUNTER 2018-07-29 11:33 | Emergency (ER) | payer MEDICARE ==
[~2018-07-29] VITALS: Ht 157.5 cm; Wt 70.8 kg
[~2018-07-29 11:33] MED LIST: AMLODIPINE BESYL5 MG PO; ASPIRIN325 MG PO; ATORVASTATIN CA10 MG PO; METOPROLOL SUCC25 MG PO; PANTOPRAZOLE SO40 MG PO
--- NOTE | 2018-07-29 11:52 | NUR ---
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 12-EKG obtained.
[2018-07-29] MEDS ORDERED: HYDRALAZINE HCL 20 MG/ML VIAL IV ONE (12:15)
[2018-07-29 14:15] VITALS: BP 176/79
== END 2018-07-29 14:15 | disposition home or self-care (01) ==
LOC: ER 11:33
DX: I10 Essential (primary) hypertension (principal)
CPT/HCPCS: 93005; 99282

== ENCOUNTER 2018-10-27 16:23 | Emergency (ER) | payer MEDICARE ==
[~2018-10-27] VITALS: Ht 157.5 cm; Wt 74.8 kg
[~2018-10-27 16:23] MED LIST changes: +LISINOPRIL10 MG PO
--- OUTSIDE RECORDS SUMMARY | 2018-10-27 16:28 | XMS REPORT | Continuity of Care Document ---
Author Author [facility] Interface Address Unknown Phone Unavailable Problems Problem Status Onset Date Classification Date Reported Comments Source MAMMO --- BONE DENSITY Active 10/06/2018 [facility] M25.512 Active 09/22/2018 [facility] Discharge Diagnosis: Abdominal pain 03/06/2014 03/08/2014 [facility] Discharge Diagnosis: Acute lower urinary tract infection 03/06/2014 03/08/2014 [facility] ABD PAIN Active 03/05/2014 [facility] 719.4 - PAIN IN JOINT Active 07/24/2013 [facility] SORE THROAT Active 04/01/2013 [facility] CHEST PAIN Active 07/27/2011 [facility] HTN - Hypertension Active 01/22/2001 Problem 08/03/2011 [facility] Chest pain Active Problem 04/04/2013 [facility] DM - Diabetes mellitus Active Problem 04/04/2013 [facility] HTN - Hypertension Active Problem 04/04/2013 [facility] Hyperlipidemia Active Problem 04/04/2013 [facility] Chest pain Active Problem 03/08/2014 [facility], [facility] DM - Diabetes mellitus Active Problem 03/08/2014 [facility], [facility] HTN - Hypertension Active Problem 03/08/2014 [facility], [facility] Hyperlipidemia Active Problem 03/08/2014 [facility], [facility] CVD (<span ID="[id number]">Confirmed</span>) Active Problem 10/22/2018 [facility] Body mass index 29.0-29.9, adult(<span ID="[id number]">Confirmed</span>) Active Problem 10/22/2018 [facility] Hypertension Active Problem 10/22/2018 [facility] Left-sided weakness Active Problem 10/22/2018 [facility] Mixed hyperlipidemia Active Problem 10/22/2018 [facility] Left shoulder pain Active Problem 10/22/2018 [facility] Type 2 diabetes mellitus with hyperglycemia Active Problem 10/22/2018 [facility] Unstable gait Active Problem 10/22/2018 [facility] Vitamin D deficiency Active Problem 10/22/2018 [facility] CKD , stage IV(<span ID="[id number]">Confirmed</span>) Active Problem 10/22/2018 [facility] Osteoporosis Active Problem 10/22/2018 [facility] CVA Active Problem 10/02/2018 [facility] Dehydration Active Problem 10/02/2018 [facility] Renal failure , acute on chronic Active Problem 10/02/2018 [facility] CHEST PAIN NOS Active [facility] Medications Medication Details Route Status Patient Instructions Ordering Provider Order Date Source Ergocalciferol 54044 UNT Oral Capsule 50,000 IntlUnit=1 cap, PO, qWeek, # 12 cap, 2 Refill(s), Pharmacy: [id number] Active 10/21/2018 [facility] citalopram 10 mg oral tablet 10 mg=1 tab, PO, Daily, # 30 tab, 1 Refill(s), Pharmacy: [facility] [id number] Active 10/20/2018 [facility] Alendronic acid 70 MG Oral Tablet 70 mg=1 tab, PO, Q7D, with 6 to 8 ounces plain water, at least 30 minutes before first food, beverage, or medication of the day, # 12 tab, 3 Refill(s) Active 10/20/2018 [facility] One[facility] Ultra Blue Blood Glucose Test Strip 1 ea, MISC, TID, Last HBA1c: Insulin Dep:Y High freq tests for: Poor control Certified Medically Necessary:, # 270 ea, Insulin dependent, Does not use insulin pump, Last DM eval date 10/20/18, 3 Refill(s), Pharmacy: [facility] [id number] Active 10/20/2018 [facility] atorvastatin 40 mg oral tablet 40 mg=1 tab, PO, Bedtime, # 90 tab, 1 Refill(s), Pharmacy: [facility] [id number] Active 10/20/2018 [facility] Hydrochlorothiazide 12.5 MG / Lisinopril 20 MG Oral Tablet 1 tab, PO, Daily, # 90 tab, 1 Refill(s), Pharmacy: [facility] [id number], stop losartan hctz and amlodipine. Active 10/20/2018 [facility] atorvastatin 40 mg oral tablet 40 mg=1 tab, PO, Bedtime, # 90 tab, 1 Refill(s), Pharmacy: [id number] [id number] Active 10/09/2018 [facility] Trazodone Hydrochloride 50 MG Oral Tablet 50 mg=1 tab, PO, Bedtime, after meals for insomnia, # 30 tab, 1 Refill(s), Pharmacy: [facility] [id number] Active 09/19/2018 [facility] gabapentin 300 MG Oral Capsule 300 mg=1 cap, PO, BID, # 60 cap, 1 Refill(s), Pharmacy: [facility] [id number] Active 09/19/2018 [facility] metoprolol tartrate 25 mg oral tablet 12.5 mg=0.5 tab, PO, BID, 0 Refill(s) Active 09/19/2018 [facility] Hydrochlorothiazide 12.5 MG / Losartan Potassium 50 MG Oral Tablet 1 tab, PO, Daily, # 90 tab, 0 Refill(s) Active 09/19/2018 [facility] amLODIPine 10 mg oral tablet 10 mg=1 tab, PO, Daily, # 90 tab, 1 Refill(s) Active 09/19/2018 [facility] Aspirin Enteric Coated 325 mg oral delayed release tablet 325 mg=1 tab, PO, Daily, 0 Refill(s) Active 09/19/2018 [facility] Glipizide 5 MG Oral Tablet 5 mg=1 tab, PO, Before Breakfast, # 30 tab, 0 Refill(s) Active 09/19/2018 [facility] pantoprazole 40 mg oral enteric coated tablet 40 mg=1 tab, PO, Daily, # 90 tab, 0 Refill(s) Active 09/19/2018 [facility] 3 ML insulin detemir 100 UNT/ML Prefilled Syringe [Levemir] 18 unit, SUB-Q, Bedtime, 0 Refill(s) Active 09/19/2018 [facility] atorvastatin 40 mg oral tablet 40 mg=1 tab, PO, Bedtime, # 90 tab, 1 Refill(s) Active 09/19/2018 [facility] Acetaminophen 325 MG / Hydrocodone Bitartrate 5 MG Oral Tablet 1 tab, PO, Q4H, for pain, # 12 tab, 0 Refill(s) Active 03/06/2014 [facility] ciprofloxacin 500 mg oral tablet 500 mg=1 tab, PO, Q12H, # 20 tab, 0 Refill(s) Active 03/06/2014 [facility] Zofran 4 mg, Route: IVP, Drug form: INJ, ONCE, Dosing Weight 78.636, kg, Priority: STAT, Start date: 03/05/14 22:16:00, Stop date: 03/05/14 22:16:00 Inactive 03/06/2014 [facility] Morphine 4 mg, Route: IVP, Drug form: INJ, ONCE, Dosing Weight 78.636, kg, Priority: STAT, Start date: 03/05/14 22:15:00, Stop date: 03/05/14 22:15:00 Inactive 03/06/2014 [facility] lisinopril 10 mg oral tablet 10 mg, 1 tab, PO, Daily, 30 tab, Substitution Allowed, TAB Active Luis Carlos 04/01/2013 [facility] metFORmin 500 mg oral tablet 500 mg, 1 tab, PO, BID, 30 tab, Substitution Allowed Active Luis Carlos 04/01/2013 [facility] Insulin regular 8 unit, Route: SUB-Q, ONCE, Dosing Weight 79.091, kg, Start date: 04/01/13 12:23:00, Stop date: 04/01/13 12:23:00 Inactive Luis Carlos 04/01/2013 [facility] dexamethasone 10 mg, Route: IM, ONCE, Dosing Weight 79.091, kg, Priority: STAT, Start date: 04/01/13 11:36:00, Stop date: 04/01/13 11:36:00 Inactive Luis Carlos 04/01/2013 [facility] ketorolac 60 mg, Route: IM, Drug form: INJ, ONCE, Dosing Weight 79.091, kg, Priority: STAT, Start date: 04/01/13 11:35:00, Stop date: 04/01/13 11:35:00 Inactive Luis Carlos 04/01/2013 [facility] Bicillin L-A 1,200,000 unit, 2 mL, Route: IM, Drug form: INJ, ONCE, Dosing Weight 79.091, kg, Start date: 04/01/13 11:35:00, Stop date: 04/01/13 11:35:00(penicillin G benzathine 1.2 MilUnit/2 ml INJ) (Same as: Bi cillin L-A, Permapen) NOT For Daily Use Inactive [place] 04/01/2013 [facility] acetaminophen 500 mg, 1 tab, Route: PO, Drug form: TAB, Q6H, PRN Pain, Start date: 07/31/11 19:22:00, Duration: 30 day, Stop date: 08/30/11 19:21:00 PO No Longer Active [place] 08/01/2011 [facility] Metoprolol Succinate ER 25 mg oral tablet, extended release 25 mg, 1 tab, Route: PO, Drug form: ERTAB, Daily, Start date: 07/30/11 9:00:00, Duration: 30 day, Stop date: 08/28/11 9:00:00 PO No Longer Active [place] 07/30/2011 [facility] aspirin 325 mg tablet, enteric coated 325 mg, 1 tab, Route: PO, Drug form: ECTAB, Daily, Start date: 07/30/11 9:00:00, Duration: 30 day, Stop date: 08/28/11 9:00:00 PO No Longer Active [place] 07/30/2011 [facility] Saline Flush 0.9% 5 ml, Route: IVP, Drug Form: INJ, Q12H, Start date: 07/29/11 21:00:00, Duration: 30 day, Stop date: 08/28/11 9:00:00 IVP No Longer Active [place] 07/30/2011 [facility] simvastatin 20 mg, 1 tab, Route: PO, Drug form: TAB, Bedtime, Start date: 07/29/11 21:00:00, Duration: 30 day, Stop date: 08/27/11 21:00:00 PO No Longer Active [place] 07/30/2011 [facility] Dextrose 50% in Water IV 50 mL, Route: IVP, PRN, Blood Glucose Results, Start date: 07/29/11 17:36:00, Duration: 30 day, Stop date: 08/28/11 17:35:00 IVP No Longer Active [place] 07/29/2011 [facility] Dextrose 50% in Water IV 25 mL, Route: IVP, PRN, Blood Glucose Results, Start date: 07/29/11 17:35:00, Duration: 30 day, Stop date: 08/28/11 17:34:00 IVP No Longer Active [place] 07/29/2011 [facility] metFORmin 500 mg oral tablet 500 mg, 1 tab, Route: PO, Drug form: TAB, BID-Meals, Start date: 07/29/11 17:00:00, Duration: 30 day, Stop date: 08/28/11 8:00:00 PO No Longer Active [place] 07/29/2011 [facility] insulin aspart 4 unit, 0.04 mL, Route: SUB-Q, Drug form: SOLN, TID-Before Meals, PRN Blood Glucose Results, Start date: 07/29/11 16:33:00, Duration: 30 day, Stop date: 08/28/11 16:32:00 SUB-Q No Longer Active [place] 07/29/2011 [facility] Saline Flush 0.9% 5 ml, Route: IVP, Drug Form: INJ, PRN, PRN Line Flush, Start date: 07/29/11 16:33:00, Duration: 30 day, Stop date: 08/28/11 16:32:00 IVP No Longer Active [place] 07/29/2011 [facility] nitroglycerin SL Tab 0.4 mg, 1 tab, Route: SL, Drug form: TAB, Q5Min, PRN Chest Pain, Start date: 07/29/11 16:33:00, Duration: 3 doses or times, Stop date: Limited # of times SL No Longer Active [place] 07/29/2011 [facility] insulin aspart 2 unit, 0.02 mL, Route: SUB-Q, Drug form: SOLN, TID-Before Meals, PRN Blood Glucose Results, Start date: 07/29/11 16:32:00, Duration: 30 day, Stop date: 08/28/11 16:31:00 SUB-Q No Longer Active [place] 07/29/2011 [facility] glucagon 1 mg, Route: IM, Drug form: PDR/INJ, PRN, PRN Blood Glucose Results, Start date: 07/29/11 16:32:00, Duration: 30 day, Stop date: 08/28/11 16:31:00 IM No Longer Active [place] 07/29/2011 [facility] atropine 0.5 mg, 5 mL, Route: IVP, Drug form: INJ, PRN, PRN Bradycardia, Start date: 07/29/11 16:32:00, Duration: 30 day, Stop date: 08/28/11 16:31:00 IVP No Longer Active [place] 07/29/2011 [facility] Tylenol 650 mg, 2 tab, Route: PO, Drug form: TAB, Q6H, PRN Pain, Start date: 07/29/11 16:32:00, Duration: 30 day, Stop date: 08/28/11 16:31:00 PO No Longer Active [place] 07/29/2011 [facility] Dextrose 50% Syringe 12.5 gm, Route: IVP, Drug Form: INJ, PRN, PRN Blood Glucose Results, Start date: 07/29/11 16:32:00, Duration: 30 day, Stop date: 08/28/11 16:31:00 IVP No Longer Active [place] 07/29/2011 [facility] Dextrose 50% Syringe 25 gm, Route: IVP, Drug Form: INJ, PRN, PRN Blood Glucose Results, Start date: 07/29/11 16:31:00, Duration: 30 day, Stop date: 08/28/11 16:30:00 IVP No Longer Active [place] 07/29/2011 [facility] Metoprolol Succinate ER 25 mg oral tablet, extended release 25 mg, 1 tab, Route: PO, Drug form: ERTAB, Daily, Start date: 07/29/11 9:00:00, Duration: 30 day, Stop date: 08/27/11 9:00:00 PO No Longer Active [place] 07/29/2011 [facility] simvastatin 20 mg, 1 tab, Route: PO, Drug form: TAB, Bedtime, Start date: 07/28/11 21:00:00, Duration: 30 day, Stop date: 08/26/11 21:00:00 PO No Longer Active [place] 07/29/2011 [facility] metFORmin 500 mg oral tablet 500 mg, 1 tab, Route: PO, Drug form: TAB, BID-Meals, Start date: 07/28/11 17:00:00, Duration: 30 day, Stop date: 08/27/11 8:00:00 PO No Longer Active [place] 07/28/2011 [facility] Tylenol 650 mg, 2 tab, Route: PO, Drug form: TAB, Q6H, PRN Pain, Start date: 07/28/11 4:25:00, Duration: 30 day, Stop date: 08/27/11 4:24:00 PO No Longer Active [place] 07/28/2011 [facility] Saline Flush 0.9% 5 ml, Route: IVP, Drug Form: INJ, Q12H, Start date: 07/27/11 21:00:00, Duration: 30 day, Stop date: 08/26/11 9:00:00 IVP No Longer Active [place] 07/28/2011 [facility] atropine 0.5 mg, 5 mL, Route: IVP, Drug form: INJ, PRN, PRN Bradycardia, Start date: 07/27/11 19:19:00, Duration: 30 day, Stop date: 08/26/11 19:18:00 IVP No Longer Active [place] 07/28/2011 [facility] aspirin 325 mg tablet, enteric coated 325 mg, 1 tab, Route: PO, Drug form: ECTAB, Q24H, Start date: 07/27/11 19:00:00, Duration: 30 day, Stop date: 08/25/11 19:00:00 PO No Longer Active [place] 07/28/2011 [facility] Saline Flush 0.9% 5 ml, Route: IVP, Drug Form: INJ, PRN, PRN Line Flush, Start date: 07/27/11 18:25:00, Duration: 30 day, Stop date: 08/26/11 18:24:00 IVP No Longer Active [place] 07/28/2011 [facility] nitroglycerin SL Tab 0.4 mg, 1 tab, Route: SL, Drug form: TAB, Q5Min, PRN Chest Pain, Start date: 07/27/11 18:25:00, Duration: 3 doses or times, Stop date: Limited # of times SL No Longer Active [place] 07/28/2011 [facility] Dextrose 50% Syringe 12.5 gm, 25 mL, Route: IVP, Drug Form: INJ, PRN, PRN Blood Glucose Results, Start date: 07/27/11 18:24:00, Duration: 30 day, Stop date: 08/26/11 18:23:00 IVP No Longer Active [place] 07/28/2011 [facility] glucagon 1 mg, Route: IM, Drug form: PDR/INJ, PRN, PRN Blood Glucose Results, Start date: 07/27/11 18:24:00, Duration: 30 day, Stop date: 08/26/11 18:23:00 IM No Longer Active [place] 07/28/2011 [facility] insulin aspart 2 unit, 0.02 mL, Route: SUB-Q, Drug form: SOLN, TID-Before Meals, PRN Blood Glucose Results, Start date: 07/27/11 18:24:00, Duration: 30 day, Stop date: 08/26/11 18:23:00 SUB-Q No Longer Active [place] 07/28/2011 [facility] Tylenol 1,000 mg, Route: PO, Drug form: TAB, ONCE, PRN Pain, Priority: STAT, Start date: 07/27/11 17:44:00, Stop date: 08/26/11 17:43:00 PO No Longer Active [place] 07/27/2011 [facility] metFORmin 500 mg oral tablet 500 mg, 1 tab, PO, BID-Meals, Substitution Allowed PO Active [place] 07/27/2011 [facility] hydrochlorothiazide-lisinopril 12.5 mg-10 mg oral tablet 1 tab, PO, Daily, Substitution Allowed, Maintenance PO Active 07/27/2011 [facility] simvastatin 20 mg, PO, Bedtime, Substitution Allowed PO Active [place] 07/27/2011 [facility] Vitamin D 50,000 intl units oral capsule 50,000 IntlUnit, 1 cap, PO, QFri, Substitution Allowed PO Active 07/27/2011 [facility] ibuprofen 400 mg oral tablet 400 mg, 1 tab, PO, TID, PRN, as needed for headache, Substitution Allowed PO Active 07/27/2011 [facility] Saline Flush 0.9% 5 ml, Route: IVP, Drug Form: INJ, PRN, PRN Line Flush, Start date: 07/27/11 14:54:00, Duration: 24 hr, Stop date: 07/28/11 14:53:00 IVP No Longer Active [place] 07/27/2011 [facility] aspirin 325 mg tablet 325 mg, Route: PO, Drug form: TAB, ONCE, Priority: STAT, Start date: 07/27/11 14:54:00, Stop date: 07/27/11 14:54:00 PO No Longer Active [place] 07/27/2011 [facility] Amlodipine Besylate 5 Mg Tablet Daily Active [facility] Aspirin 325 Mg Tablet Daily Active [facility] Atorvastatin Calcium 10 Mg Tablet Twice A Day Active [facility] Lisinopril 10 Mg Tablet Daily Active [facility] Metoprolol Succinate 25 Mg Tab.er.24h Twice A Day Active [facility] Pantoprazole Sodium (Protonix) 40 Mg Tablet.dr Daily Active [facility] Allergies, Adverse Reactions, Alerts Substance Category Reaction Severity Reaction type Status Date Reported Comments Source Iodine VOMITING Severe Allergy to Substance Active 09/30/2018 [facility] Diphenhydramine RASH Severe Allergy to Substance Active 09/30/2018 [facility] Vancomycin RASH/TURNS RED Severe Allergy to Substance Active 09/30/2018 [facility] Tomato RASH/VOMITING Severe Allergy to Substance Active 09/30/2018 [facility] vancomycin Assertion rash Low Drug allergy Active [facility] iodine Assertion Drug allergy Active [facility] Immunizations Immunization Date Given Site Status Last Updated Comments Source Results Order Name Results Value Reference Range Date Interpretation Comments Source Breast Mammo Scrn KIMBERLY incl CAD MA Breast Mammo Scrn KIMBERLY incl CAD MA BILATERAL DIGITAL SCREENING MAMMOGRAM WITH CAD: 10/15/2018 CLINICAL: /Routine. Current study was evaluated with a Computer Aided Detection (CAD) system. COMPARISON:Comparison is made to exam dated: 10/02/2011 mammogram - [facility]. TECHNIQUE: Mammographic views were obtained using digital acquisition. [employer] Version 1.3 was utilized for computer aided detection. FINDINGS: There are scattered fibroglandular densities in both breasts. Technologist indicates that the patient is confined to a wheelchair which limited positioning. Best images obtained were submitted for review. There are benign vascular calcifications and calcifications in both breasts. No significant masses, calcifications, or other findings are seen in either breast. There has been no significant interval change. IMPRESSION: BENIGN RECOMMENDATION:There is no mammographic evidence of malignancy. A 1 year screening mammogram is recommended.(10/16/2019) This exam was interpreted at [id number] for [facility]. Fran johnson/sonia:10/15/2018 15:19:21 Brim Stretcher(s): Kimberly Davis, [facility] letter sent: BI-RADS 1/2 Mammogram BI-RADS: 2 Benign 10/15/2018 - - Read by: Fran Uribe MD Dictated Date/time: 10/15/18 15:19 Electronically Signed by: Fran Uribe MD 10/15/18 15:19 FINAL REPORT [facility] Bone Density Scan Bone Density Scan Study: Bone Density Scan Clinical Indication: Osteoporosis screening; Images of the axial lumbar spine and left hip have been performed using [employer] Discovery SL scanner. COMPARISON: None FINDINGS: The left hip bone mineral density is 78% of the peak reference bone mass with a T-score of -1.7. Left hip BMD is 0.732 g/cm2. Left femoral neck BMD is 0.499 g/cm2 and T-score of -3.2. The axial lumbar bone mineral density is 76% of the peak reference bone mass with a T-score of -2.3. Axial lumbar average BMD is 0.797 g/cm2. IMPRESSION: 1. Osteoporosis of the left femoral neck. 2. Osteopenia of the total left hip. 3. Osteopenia of the lumbar spine. The World Health Organization has established that OSTEOPOROSIS occurs at -2.5 or more standard deviations (SD) below peak bone mass (T-score on the Hologic report). OSTEOPENIA (low bone mass) occurs at greater than -1.0 standard deviations to -2.5 standard deviations below peak bone mass. SL: [id number] 10/15/2018 - - Read by: Vinicio Fall MD Dictated Date/time: 10/15/18 15:47 Electronically Signed by: Vinicio Fall MD 10/15/18 15:47 FINAL REPORT [facility] Capillary blood glucose measurement by glucometer (mass/volume) 105 70 - 120 10/02/2018 [facility] Urine color determination YELLOW YELLOW 10/02/2018 [facility] Urine clarity SL CLOUDY CLEAR 10/02/2018 [facility] Specific gravity of Urine by Test strip 1.020 1.010 - 1.025 10/02/2018 [facility] Urine pH measurement by automated test strip 6.5 5 - 7 10/02/2018 [facility] Urine leukocyte esterase detection by dipstick NEGATIVE NEGATIVE 10/02/2018 [facility] Urine nitrite detection NEGATIVE NEGATIVE 10/02/2018 [facility] Urine protein measurement by test strip (mass/volume) 3+ NEGATIVE 10/02/2018 [facility] Urine glucose detection 2+ NEGATIVE 10/02/2018 [facility] Urine ketones detection by automated test strip NEGATIVE NEGATIVE 10/02/2018 [facility] Urine urobilinogen measurement by test strip (mass/volume) 0.2 0.2 - 1 10/02/2018 [facility] Urine total bilirubin measurement (mass/volume) NEGATIVE NEGATIVE 10/02/2018 [facility] Urine erythrocytes detection TRACE NEGATIVE 10/02/2018 [facility] Automated urine sediment leukocyte count by microscopy (number/high power field) 0-5 0 - 5 10/02/2018 [facility] Erythrocytes detection in urine sediment by light microscopy 0-5 0 - 5 10/02/2018 [facility] Bacteria detection in urine sediment by light microscopy RARE NONE 10/02/2018 [facility] Epithelial cells detection in urine sediment by light microscopy RARE NONE 10/02/2018 [facility] Urine protein measurement (mass/volume) 1055.7 1 - 14 10/02/2018 [facility] Urine creatinine measurement (mass/volume) 40.02 47 - 110 10/02/2018 [facility] Random urine protein/creatinine ratio 26.00 10/02/2018 [facility] Blood leukocytes automated count (number/volume) 11.01 4.8 - 10.8 10/02/2018 [facility] Blood erythrocytes automated count (number/volume) 4.63 3.6 - 5.1 10/02/2018 [facility] Blood hemoglobin measurement (moles/volume) 12.2 12.0 - 16.0 10/02/2018 [facility] Automated blood hematocrit (volume fraction) 38.7 34.2 - 44.1 10/02/2018 [facility] Automated erythrocyte mean corpuscular volume 83.6 81 - 99 10/02/2018 [facility] Automated erythrocyte mean corpuscular hemoglobin (mass per erythrocyte) 26.3 28 - 32 10/02/2018 [facility] Automated erythrocyte mean corpuscular hemoglobin concentration measurement (mass/volume) 31.5 31 - 35 10/02/2018 [facility] RDW BldCo-Rto 14.8 11.7 - 14.4 10/02/2018 [facility] Automated blood platelet count (count/volume) 394 140 - 360 10/02/2018 [facility] Automated blood segmented neutrophil count as percentage of total leukocytes 51.9 38.7 - 80.0 10/02/2018 [facility] Automated blood lymphocyte count as percentage ot total leukocytes 37.2 18.0 - 39.1 10/02/2018 [facility] Automated blood monocyte count as percentage of total leukocytes 5.8 4.4 - 11.3 10/02/2018 [facility] Automated blood eosinophil count as percentage of total leukocytes 3.7 0.0 - 6.0 10/02/2018 [facility] Automated blood basophil count as percentage of total leukocytes 0.9 0.0 - 1.0 10/02/2018 [facility] IM GRANULOCYTES % 0.5 0.0 - 1.0 10/02/2018 [facility] Automated blood neutrophil count 5.7 2.1 - 6.9 10/02/2018 [facility] Blood lymphocytes count (number/volume) 4.1 1.0 - 3.2 10/02/2018 [facility] [facility] monocytes automated count (number/volume) 0.6 0.2 - 0.8 10/02/2018 [facility] Automated blood eosinophil count 0.4 0.0 - 0.4 10/02/2018 [facility] Automated blood basophil count (count/volume) 0.1 0.0 - 0.1 10/02/2018 [facility] Absolute Immature Granulocyte (auto 0.06 0 - 0.1 10/02/2018 [facility] Serum or plasma sodium measurement (moles/volume) 138 136 - 145 10/02/2018 [facility] Serum or plasma potassium measurement (moles/volume) 4.8 3.5 - 5.1 10/02/2018 [facility] Serum or plasma chloride measurement (moles/volume) 116 98 - 107 10/02/2018 [facility] Serum or plasma carbon dioxide, total measurement (moles/volume) 18 22 - 29 10/02/2018 [facility] Serum or plasma anion gap 8.8 8 - 16 10/02/2018 [facility] Serum or plasma urea nitrogen measurement (mass/volume) 39 7 - 26 10/02/2018 [facility] Serum or plasma creatinine measurement (mass/volume) 1.74 0.57 - 1.11 10/02/2018 [facility] Serum or plasma urea nitrogen/creatinine mass ratio 22 6 - 25 10/02/2018 [facility] Estimated glomerular filtration rate (GFR) determination 29 60 10/02/2018 [facility] Glucose measurement 104 74 - 118 10/02/2018 [facility] Serum or plasma calcium measurement (mass/volume) 8.4 8.4 - 10.2 10/02/2018 [facility] Serum or plasma creatine kinase measurement (enzymatic activity/volume) 113 29 - 168 10/01/2018 [facility] Serum or plasma creatine kinase MB measurement (mass/volume) 1.30 0 - 5.0 10/01/2018 [facility] Troponin I measurement by highly sensitive enzyme immunoassay 0.021 0 - 0.300 10/01/2018 [facility] Serum or plasma total bilirubin measurement (mass/volume) 0.2 0.2 - 1.2 10/01/2018 [facility] Aspartate Amino Transf (AST/SGOT) 11 5 - 34 10/01/2018 [facility] Serum or plasma alanine aminotransferase measurement (enzymatic activity/volume) 6 0 - 55 10/01/2018 [facility] Serum or plasma protein measurement (mass/volume) 5.2 6.5 - 8.1 10/01/2018 [facility] Serum or plasma albumin measurement (mass/volume) 1.8 3.5 - 5.0 10/01/2018 [facility] Plasma globulin measurement (mass/volume) 3.4 2.3 - 3.5 10/01/2018 [facility] Serum or plasma albumin/globulin mass ratio 0.5 0.8 - 2.0 10/01/2018 [facility] Serum or plasma alkaline phosphatase measurement (enzymatic activity/volume) 76 40 - 150 10/01/2018 [facility] Prothrombin time (PT) in platelet poor plasma by coagulation assay 12.0 11.9 - 14.5 09/30/2018 [facility] INR in Platelet poor plasma by Coagulation assay 0.84 09/30/2018 [facility] Activated partial thromboplastin time (aPTT) in platelet poor plasma bycoagulation assay 29.7 23.8 - 35.5 09/30/2018 [facility] BNP Bld-mCnc 47.7 0 - 100 09/30/2018 [facility] Serum or plasma thyrotropin measurement by detection limit <=0.005 miu/l (units/volume) 3.276 0.350 - 4.940 09/30/2018 [facility] Shoulder series DX Shoulder series DX Left shoulder 3 views DX, 09/22/2018 12:37 CDT HISTORY: - left shoulder pain COMPARISON: None FINDINGS: No evidence for acute fracture. Humeral head is intact and located. Acromioclavicular joint is also intact mild degenerative changes. Soft tissues unremarkable. IMPRESSION: No acute osseous abnormality SL: [id number] 09/22/2018 - - Read by: Dennis Larios MD Dictated Date/time: 09/22/18 13:57 Electronically Signed by: Dennis Larios 09/22/18 13:57 FINAL REPORT [facility] Serum or plasma magnesium measurement (mass/volume) 2.3 1.3 - 2.1 07/15/2018 [facility] Serum or plasma triglyceride measurement (mass/volume) 257 0 - 149 07/14/2018 [facility] Serum or plasma cholesterol measurement (mass/volume) 344 0 - 199 07/14/2018 [facility] Serum or plasma cholesterol in LDL measurement (mass/volume) 259 60 - 130 07/14/2018 [facility] Serum or plasma cholesterol in HDL measurement (mass/volume) 34 40 - 60 07/14/2018 [facility] Serum or plasma total cholesterol/cholesterol in HDL mass ratio 10.1 3.0 - 3.6 07/14/2018 [facility] Hemoglobin A1c Percent 8.8 4.0 - 7.0 07/13/2018 [facility] Free thyroxine index 1.9343 1.4 - 3.8 07/13/2018 [facility] Serum or plasma thyroxine (T4) measurement (mass/volume) 5.75 4.5 - 10.9 07/13/2018 [facility] Serum or plasma triiodothyronine resin uptake (T3RU) 33.64 22.5 - 37.0 07/13/2018 [facility] CHEM PANEL eGFR 99 mL/min/1.73m2 03/06/2014 1Result Comment: The eGFR is calculated using the CKD-EPI formula. In most young, healthy individuals the eGFR will be >90 mL/min/1.73m2. The eGFR declines with age. An eGFR of 60-89 may be normal in some populations, particularly the elderly, for whom the CKD-EPI formula has not been extensively validated. Use of the eGFR is not recommended in the following populations: Individuals with unstable creatinine concentrations, including patients and those with serious co-morbid conditions. Patients with extremes in muscle mass or diet. The data above are obtained from the National Kidney Disease Education Program (NKDEP) which additionally recommends that when the eGFR is used in patients with extremes of body mass index for purposes of drug dosing, the eGFR should be multiplied by the estimated BMI. [facility] CHEM PANEL Bili Total 0.9 mg/dL 0.2 - 1.3 03/06/2014 [facility] CHEM PANEL AGAP 13.0 meq/L 10.0 - 20.0 03/06/2014 [facility] CHEM PANEL B/C Ratio 18 6 - 25 03/06/2014 [facility] CHEM PANEL ALT 28 unit/L 0 - 65 03/06/2014 [facility] CHEM PANEL AST 18 unit/L 0 - 37 03/06/2014 [facility] CHEM PANEL Alk Phos 152 unit/L 39 - 136 03/06/2014 [facility] CHEM PANEL Potassium Lvl 4.0 meq/L 3.5 - 5.1 03/06/2014 [facility] CHEM PANEL Chloride Lvl 100 meq/L 95 - 109 03/06/2014 [facility] CHEM PANEL Creatinine Lvl 0.6 mg/dL 0.5 - 1.4 03/06/2014 [facility] CHEM PANEL Sodium Lvl 134 meq/L 135 - 145 03/06/2014 [facility] CHEM PANEL Glucose Lvl 306 mg/dL 70 - 99 03/06/2014 2Interpretive Data: Adult reference range values reflect the clinical guidelines of the [employer]. [facility] CHEM PANEL BUN 11 mg/dL 7 - 22 03/06/2014 [facility] CHEM PANEL Albumin Lvl 3.6 g/dL 3.5 - 5.0 03/06/2014 [facility] CHEM PANEL Total Protein 8.0 g/dL 6.4 - 8.4 03/06/2014 [facility] CHEM PANEL Calcium Lvl 9.1 mg/dL 8.5 - 10.5 03/06/2014 [facility] CHEM PANEL CO2 25 meq/L 24 - 32 03/06/2014 [facility] CHEM PANEL A/G Ratio 0.8 0.7 - 1.6 03/06/2014 [facility] CHEM PANEL Globulin 4.4 g/dL 2.0 - 4.0 03/06/2014 [facility] HEMATOLOGY Segs 60.9 % 45.0 - 75.0 03/06/2014 [facility] HEMATOLOGY Basophils 1.1 % 0.0 - 1.0 03/06/2014 [facility] HEMATOLOGY Eosinophils 1.2 % 0.0 - 4.0 03/06/2014 [facility] HEMATOLOGY Monocytes 4.4 % 2.0 - 12.0 03/06/2014 [facility] Lymphocytes 32.4 % 20.0 - 40.0 03/06/2014 [facility] Eosinophils # 0.1 K/CMM 0.0 - 0.5 03/06/2014 [facility] Monocytes # 0.5 K/CMM 0.0 - 0.8 03/06/2014 [facility] Lymphocytes # 3.5 K/CMM 1.0 - 5.5 03/06/2014 [facility] Segs-Bands # 6.5 K/CMM 1.5 - 8.1 03/06/2014 [facility] Basophils # 0.1 K/CMM 0.0 - 0.2 03/06/2014 [facility] RDW 13.0 % 11.5 - 14.5 03/06/2014 [facility] MCHC 33.4 g/dL 32.0 - 36.0 03/06/2014 [facility] MCH 28.3 pg 27.0 - 31.0 03/06/2014 [facility] MCV 84.7 fL 80.0 - 98.0 03/06/2014 [facility] MPV 8.7 fL 7.4 - 10.4 03/06/2014 [facility] Platelet 366 K/CMM 133 - 450 03/06/2014 [facility] WBC 10.7 K/CMM 3.7 - 10.4 03/06/2014 [facility] Hct 49.5 % 36.0 - 48.0 03/06/2014 [facility] Hgb 16.5 g/dL 12.0 - 16.0 03/06/2014 [facility] RBC 5.84 M/CMM 4.20 - 5.40 03/06/2014 [facility] Abdomen/Pelvis wo IV contrast CT Abdomen/Pelvis wo IV contrast CT CT SCAN OF THE ABDOMEN AND PELVIS WITHOUT CONTRAST. HX: Acute abdominal pain. COMPARISON: [None] Technique: Helical CT images were obtained from the domes the diaphragms to the symphysis pubis following the administration of oral but no intravenous contrast. The lack of IV contrast lowers the sensitivity for diagnostic evaluation. ABDOMEN AND PELVIS: The lung bases are clear. There are no pleural effusions. The heart is normal in size. Postoperative cholecystectomy. Diffuse fatty liver infiltration. The unenhanced spleen, pancreas, and adrenals are normal in appearance. Small superior pole right renal calculi are present and cortical scarring. Nonspecific perinephric stranding is present. No definite hydronephrosis or ureteral calculi. Surgical sutures are present near the cecum likely postop appendectomy. Moderate sigmoid descending diverticulosis. Nonvisualization the uterus presumed post hysterectomy for the bladder is n ondistended. IMPRESSION: 1. Small superior pole right renal calculi are present and cortical scarring. Nonspecific perinephric stranding is present. No definite obstructive uropathy. 2. Diffuse fatty liver infiltration. 3. Postoperative cholecystectomy, appendectomy and hysterectomy. SL: 03/05/2014 - - Read by: Mario Carbajal MD Dictated Date/time: 03/05/14 23:28 Electronically Signed by: Mario Carbajal MD 03/05/14 23:32 FINAL REPORT [facility] Brain wo contrast CT Brain wo contrast CT CT head without contrast. CLINICAL INDICATION: Weakness. COMPARISON: [None]. TECHNIQUE: Multiple contiguous axial images of the brain were performed without IV contrast. FINDINGS: Ventricles and subarachnoid spaces are appropriate for age. No acute territorial infarction or intracranial hemorrhage. No extra-axial fluid collection. Matta-white distinction is preserved. No mass, mass-effect, or midline shift. Visualized paranasal sinuses are unremarkable. IMPRESSION: No acute intracranial process detected. Dedicated MRI brain if indicated. SL: 03/05/2014 - - Read by: Mario Carbajal MD Dictated Date/time: 03/05/14 22:12 Electronically Signed by: Mario Carbajal MD 03/05/14 22:13 FINAL REPORT [facility] URINE AND STOOL UA Urobilinogen <=1.0 mg/dL 0.1 - 1.0 03/05/2014 [facility] URINE AND STOOL UA Blood Small *ABN* (03/05/14 12:30 AM) Negative 03/05/2014 [facility] URINE AND STOOL UA Nitrite Negative (03/05/14 12:30 AM) Negative 03/05/2014 [facility] URINE AND STOOL UA Turbidity Marked *ABN* (03/05/14 12:30 AM) Clear 03/05/2014 [facility] URINE AND STOOL UA Spec Grav 1.032 <=1.030 03/05/2014 [facility] URINE AND STOOL UA Color Yellow *NA* (03/05/14 12:30 AM) Yellow 03/05/2014 [facility] URINE AND STOOL UA Sq Epi Many /LPF Few /LPF 03/05/2014 [facility] URINE AND STOOL UA WBC 128 /HPF 0 - 5 03/05/2014 [facility] URINE AND STOOL UA RBC 15 /HPF 0 - 2 03/05/2014 [facility] URINE AND STOOL UA Leuk Est Large *ABN* (03/05/14 12:30 AM) Negative 03/05/2014 [facility] URINE AND STOOL UA Bili Negative *NA* (03/05/14 12:30 AM) Negative 03/05/2014 [facility] URINE AND STOOL UA pH 5.0 5.0 - 8.0 03/05/2014 [facility] URINE AND STOOL UA Protein 30 mg/dL Negative mg/dL 03/05/2014 [facility] URINE AND STOOL UA Glucose 500 mg/dL Negative mg/dL 03/05/2014 [facility] URINE AND STOOL UA Ketones 20 mg/dL Negative mg/dL 03/05/2014 [facility] Ribs bilateral Ribs bilateral Exam: Bilateral rib x-ray series Reason for Exam: Pain status post fall Comparison Exam: None Discussion: No acute bony abnormalities are seen within the right or left rib cage. No evidence seen for pneumothorax or pulmonary contusion. No suspicious osteoblastic or osteolytic lesions. Impression: 1. No acute bony abnormalities are seen within the right or left rib cage. 07/24/2013 - - Read by: Robert Mclean Dictated Date/time: 07/24/13 15:13 Electronically Signed by: Robert Mclean MD 07/24/13 15:16 FINAL REPORT [facility] Knee AP and lateral Knee AP and lateral Exam: Right knee x-ray, 2 views Reason for exam: Pain status post fall Comparison exam: None Discussion: No fractures or dislocations are seen within the right knee. The joint spaces are preserved. No suspicious intraosseous lesions. No radiopaque foreign bodies. Impression: 1. No acute bony abnormalities seen within the right kidney. 07/24/2013 - - Read by: Robert Mclean Dictated Date/time: 07/24/13 15:12 Electronically Signed by: Robert Mclean MD 07/24/13 15:13 FINAL REPORT [facility] BEDSIDE GLUCOSE TESTING Glucose POC 340 mg/dL 70 - 99 04/01/2013 HI 1Interpretive Data: Upper Reportable Limit: 200 mg/dL. [facility] BEDSIDE GLUCOSE TESTING Glucose POC 356 mg/dL 70 - 99 04/01/2013 HI 2Interpretive Data: Upper Reportable Limit: 200 mg/dL. [facility] BEDSIDE GLUCOSE TESTING Gluc POC Lifscn 162 mg/dL 65 - 110 08/01/2011 HI 1Interpretive Data: Upper Reportable Limit: 200 mg/dL. [facility] BEDSIDE GLUCOSE TESTING Gluc POC Lifscn 226 mg/dL 65 - 110 08/01/2011 HI 2Interpretive Data: Upper Reportable Limit: 200 mg/dL. [facility] BEDSIDE GLUCOSE TESTING Gluc POC Lifscn 144 mg/dL 65 - 110 07/31/2011 HI 3Interpretive Data: Upper Reportable Limit: 200 mg/dL. [facility] BEDSIDE GLUCOSE TESTING Comment1 Notify RN/MD 07/31/2011 NA [facility] BEDSIDE GLUCOSE TESTING Comment1 Notify RN/ 07/31/2011 NA [facility] BEDSIDE GLUCOSE TESTING Comment1 Notify RN/MD 07/30/2011 NA [facility] CHEMISTRY Troponin-I null 0.00 - 0.40 07/28/2011 Normal [facility] CHEMISTRY Total CK 35 U/L 12 - 191 07/28/2011 Normal [facility] CHEMISTRY Total CK 35 U/L 12 - 191 07/28/2011 Normal [facility] CHEMISTRY Troponin-I null 0.00 - 0.40 07/28/2011 Normal [facility] CHEMISTRY CK MB Index null 0.0 - 2.5 07/27/2011 Normal [facility] CHEMISTRY Total CK 45 U/L 12 - 191 07/27/2011 Normal [facility] CHEMISTRY CK MB null 0.5 - 3.6 07/27/2011 Normal [facility] CHEMISTRY Troponin-I null 0.00 - 0.40 07/27/2011 Normal [facility] CHEMISTRY Chloride Lvl 103 meq/L 95 - 109 07/27/2011 Normal [facility] CHEMISTRY CO2 21 meq/L 24 - 32 07/27/2011 LOW [facility] CHEMISTRY Sodium Lvl 135 meq/L 135 - 145 07/27/2011 Normal [facility] CHEMISTRY Potassium Lvl 3.9 meq/L 3.5 - 5.1 07/27/2011 Normal [facility] CHEMISTRY Creatinine Lvl 0.8 mg/dL 0.5 - 1.4 07/27/2011 Normal [facility] CHEMISTRY Glucose Lvl 352 mg/dL 07/27/2011 NA 4Interpretive Data: Reference Ranges : 0 - 7 days : 41 - 90 mg/dL7 days - 150 yrs : 70 - 99 mg/dL (fasting), based on the clinical recommendations of the [employer]. [facility] CHEMISTRY BUN 23 mg/dL 7 - 22 07/27/2011 [facility] CHEMISTRY Bili Total 0.4 mg/dL 0.2 - 1.3 07/27/2011 Normal [facility] CHEMISTRY Alk Phos 99 U/L 39 - 136 07/27/2011 Normal [facility] CHEMISTRY AST 6 U/L 0 - 37 07/27/2011 Normal [facility] CHEMISTRY ALT 22 U/L 0 - 65 07/27/2011 Normal [facility] CHEMISTRY Total Protein 8.0 g/dL 6.4 - 8.4 07/27/2011 Normal [facility] CHEMISTRY Albumin Lvl 3.8 g/dL 3.5 - 5.0 07/27/2011 Normal [facility] CHEMISTRY Calcium Lvl 8.9 mg/dL 8.5 - 10.5 07/27/2011 Normal [facility] CHEMISTRY A/G Ratio 0.9 0.7 - 1.6 07/27/2011 Normal [facility] CHEMISTRY B/C Ratio 29 6 - 25 07/27/2011 [facility] CHEMISTRY Globulin 4.2 g/dL 2.0 - 4.0 07/27/2011 [facility] CHEMISTRY AGAP 14.9 meq/L 10.0 - 20.0 07/27/2011 Normal [facility] HEMATOLOGY Segs 73.9 % 45.0 - 75.0 07/27/2011 Normal [facility] HEMATOLOGY Eosinophils 0.6 % 0.0 - 4.0 07/27/2011 Normal [facility] HEMATOLOGY Lymphocytes 20.8 % 20.0 - 40.0 07/27/2011 Normal [facility] HEMATOLOGY Segs-Bands # 7.5 K/CMM 1.5 - 8.1 07/27/2011 Normal [facility] HEMATOLOGY Basophils 0.3 % 0.0 - 1.0 07/27/2011 Normal [facility] HEMATOLOGY Monocytes 4.4 % 2.0 - 12.0 07/27/2011 Normal [facility] HEMATOLOGY Lymphocytes # 2.1 K/CMM 1.0 - 5.5 07/27/2011 Normal [facility] HEMATOLOGY Basophils # 0.0 K/CMM 0.0 - 0.2 07/27/2011 Normal [facility] HEMATOLOGY Monocytes # 0.4 K/CMM 0.0 - 0.8 07/27/2011 Normal [facility] HEMATOLOGY Eosinophils # 0.1 K/CMM 0.0 - 0.5 07/27/2011 Normal [facility] HEMATOLOGY MPV 7.9 fL 7.4 - 10.4 07/27/2011 Normal [facility] HEMATOLOGY MCHC 35.4 g/dL 32.0 - 36.0 07/27/2011 Normal [facility] HEMATOLOGY MCH 29.2 pg 27.0 - 31.0 07/27/2011 Normal [facility] HEMATOLOGY RDW 13.2 % 11.5 - 14.5 07/27/2011 Normal [facility] HEMATOLOGY Platelet 360 K/CMM 133 - 450 07/27/2011 Normal [facility] HEMATOLOGY RBC 4.86 M/CMM 4.20 - 5.40 07/27/2011 Normal [facility] Hct 40.0 % 36.0 - 48.0 07/27/2011 Normal [facility] MCV 82.4 fL 81.0 - 99.0 07/27/2011 Normal [facility] Hgb 14.2 g/dL 12.0 - 16.0 07/27/2011 Normal [facility] WBC 10.2 K/CMM 3.7 - 10.4 07/27/2011 Normal [facility] HEMATOLOGY INR 0.95 0.85 - 1.17 07/27/2011 Normal 5Interpretive Data: RECOMMENDED RANGES FOR PROTIME INR: 2.0-3.0 for most medical and surgical thromboembolic states. 2.5-3.5 for artificial heart valves and recurrent embolism.INR SHOULD BE USED ONLY FOR PATIENTS ON STABLE ANTICOAGULANT THERAPY. [facility] HEMATOLOGY PT 12.7 s 12.0 - 14.7 07/27/2011 Normal [facility] PTT 25.2 s 22.9 - 35.8 07/27/2011 Normal 6Interpretive Data: Heparin Therapeutic Range: 57 - 92 [facility] Vital Signs Vital Sign Value Date Comments Source BMI Calculated 30.86 10/20/2018 [facility] Weight 74.091 10/20/2018 [facility] Height 154.94 cm 10/20/2018 [facility] Temperature Oral (F) 97.9 F 10/20/2018 [facility] Respitory Rate 16 10/20/2018 [facility] Heart Rate 86 10/20/2018 [facility] Systolic (mm Hg) 154 10/20/2018 [facility] Diastolic (mm Hg) 78 10/20/2018 [facility] Temperature Oral (F) 98.0 F 10/09/2018 [facility] Respitory Rate 14 10/09/2018 [facility] Heart Rate 79 10/09/2018 [facility] Weight 72.273 10/09/2018 [facility] BMI Calculated 29.14 10/09/2018 [facility] Systolic (mm Hg) 146 10/09/2018 [facility] Diastolic (mm Hg) 77 10/09/2018 [facility] Height 157.48 cm 10/09/2018 [facility] Weight 72.273 09/19/2018 [facility] Height 157.48 cm 09/19/2018 [facility] BMI Calculated 29.14 09/19/2018 [facility] Temperature Oral (F) 98.5 F 09/19/2018 [facility] Respitory Rate 16 09/19/2018 [facility] Heart Rate 76 09/19/2018 [facility] Systolic (mm Hg) 145 09/19/2018 [facility] Diastolic (mm Hg) 69 09/19/2018 [facility] Heart Rate 70 03/06/2014 [facility] Respitory Rate 16 03/06/2014 [facility] Diastolic (mm Hg) 76 03/06/2014 [facility] Systolic (mm Hg) 132 03/06/2014 [facility] Diastolic (mm Hg) 76 03/06/2014 [facility] Systolic (mm Hg) 134 03/06/2014 [facility] Heart Rate 75 03/06/2014 [facility] Respitory Rate 16 03/06/2014 [facility] Height 160.02 cm 03/05/2014 [facility] BMI Calculated 30.71 03/05/2014 [facility] Weight 78.636 03/05/2014 [facility] Temperature Oral (F) 98.3 F 03/05/2014 [facility] Heart Rate 74 03/05/2014 [facility] Systolic (mm Hg) 143 03/05/2014 [facility] Respitory Rate 16 03/05/2014 [facility] Diastolic (mm Hg) 81 03/05/2014 [facility] Heart Rate 86 04/01/2013 [facility] Systolic (mm Hg) 136 04/01/2013 [facility] Diastolic (mm Hg) 84 04/01/2013 [facility] Respitory Rate 16 04/01/2013 [facility] Respitory Rate 16 04/01/2013 [facility] Diastolic (mm Hg) 68 04/01/2013 [facility] Heart Rate 90 04/01/2013 [facility] Systolic (mm Hg) 142 04/01/2013 [facility] Weight 79.091 04/01/2013 [facility] Height 160.02 cm 04/01/2013 [facility] Respitory Rate 18 04/01/2013 [facility] Heart Rate 90 04/01/2013 [facility] Systolic (mm Hg) 132 04/01/2013 [facility] Diastolic (mm Hg) 85 04/01/2013 [facility] Temperature Oral (F) 98.2 F 04/01/2013 [facility] Heart Rate 69 08/01/2011 [facility] Temperature Oral (F) 98.2 F 08/01/2011 [facility] Respitory Rate 18 08/01/2011 [facility] Systolic (mm Hg) 122 08/01/2011 [facility] Diastolic (mm Hg) 69 08/01/2011 [facility] Diastolic (mm Hg) 71 08/01/2011 [facility] Heart Rate 71 08/01/2011 [facility] Systolic (mm Hg) 109 08/01/2011 [facility] Respitory Rate 20 08/01/2011 [facility] Temperature Oral (F) 97.4 F 08/01/2011 [facility] Diastolic (mm Hg) 56 08/01/2011 [facility] Respitory Rate 18 08/01/2011 [facility] Systolic (mm Hg) 92 08/01/2011 [facility] Heart Rate 70 08/01/2011 [facility] Temperature Oral (F) 98.2 F 08/01/2011 [facility] Weight 81.364 07/28/2011 [facility] Height 157.48 cm 07/28/2011 [facility] Weight 81.364 07/27/2011 [facility] Height 157.48 cm 07/27/2011 [facility] Encounters Location Location Details Encounter Type Encounter Number Reason For Visit Attending Provider ADM Date DC Date Status Source [facility] Inpatient [id number] CHEST PAIN CASTILLO GOMEZ 07/27/2011 08/01/2011 Active [facility] [id number] ZACHARY YEUNG 04/01/2013 04/01/2013 Active [facility] OD [id number] 719.4 - PAIN IN JOINT MILLIE ELOY 07/24/2013 07/24/2013 Active ASHLEY Degroot [facility] [id number] Susi Stanford 03/05/2014 03/06/2014 [facility] Discharged Inpatient [id number] ZAINA GORDON MD 07/12/2018 07/18/2018 [facility] Departed Emergency Room [id number] CALEB MELENDEZ MD 07/29/2018 07/29/2018 [facility] Outpatient [id number] Ciara Walker 09/19/2018 [facility] Outpatient [id number] Ciara Walker 09/19/2018 09/20/2018 [place] [facility] [id number] Ciara Walker 09/22/2018 09/23/2018 [facility] Discharged Inpatient (obs) [id number] ZAINA GORDON MD 09/30/2018 10/02/2018 [facility] Outpatient [id number] Dasha Bagleyh 10/09/2018 [facility] Outpatient [id number] Ciara Walker 10/09/2018 10/10/2018 [facility] Outpatient [id number] Ciara Walker 10/15/2018 10/16/2018 [facility] Outpatient [id number] Ciara Walker 10/20/2018 [facility] Outpatient [id number] Ciara Walker 10/20/2018 [facility] Outpatient [id number] Ciara Walker 10/20/2018 10/21/2018 [facility] Ambulatory Pre-Reg [id number] Ciara Walker 10/20/2018 10/20/2018 [facility] Outpatient [id number] Ciara Walker 01/19/2019 Active [facility] Procedures Procedure Code Date Perfomer Comments Source Bone density scan<sup>1</sup> [id number] 10/15/2018 1. Osteoporosis of the left femoral neck. 2. Osteopenia of the total left hip. 3. Osteopenia of the lumbar spine. [facility] Mammogram<sup>2</sup> [id number] 10/15/2018 There is no mammographic evidence of malignancy. A 1 year screening mammogram is recommended.(10/16/2019) [facility] Bone density scan<sup>1</sup> [id number] 10/15/2018 1. Osteoporosis of the left femoral neck. 2. Osteopenia of the total left hip. 3. Osteopenia of the lumbar spine. [facility] Mammogram<sup>2</sup> [id number] 10/15/2018 There is no mammographic evidence of malignancy. A 1 year screening mammogram is recommended.(10/16/2019) [facility] Diabetic Retinopathy [facility] 7 field stereoscopic fundus photography<sup>3, 4</sup> [id number] 10/08/[address] Ronak Lott is retinal specialist. [facility] Diabetic Retinopathy [facility] 7 field stereoscopic fundus photography<sup>3, 4</sup> [id number] 10/08/[address] Ronak Lott is retinal specialist. [facility] Diabetic Retinopathy [facility] 7 field stereoscopic fundus photography<sup>1, 2</sup> [id number] 10/08/[address] Ronak Lott is retinal specialist. [facility] Magnetic resonance imaging of cervical spine without contrast [id number] 10/01/2018 [facility] Ultrasound, renal [id number] 10/01/2018 [facility] Magnetic resonance imaging of brain without contrast [id number] 10/01/2018 [facility] Computed tomography of brain without radiopaque contrast [id number] 09/30/2018 [facility] X-ray of chest, single view [id number] 09/30/2018 [facility] Magnetic resonance angiography of head without contrast [id number] 07/14/2018 [facility] Magnetic resonance angiography of neck without contrast [id number] 07/14/2018 [facility] Magnetic resonance imaging of brain without contrast [id number] 07/14/2018 [facility] Computed tomography of brain without radiopaque contrast [id number] 07/13/2018 [facility] INTRODUCE OTH THROMBOLYTIC IN PERIPH VEIN, PERC [id number] 07/12/2018 [facility] Computed tomography of brain without radiopaque contrast [id number] 07/12/2018 [facility] Colonoscopy<sup>1</sup> [id number] 06/24/2014 Per patient it was ok. [facility] Colonoscopy<sup>1</sup> [id number] 06/24/2014 Per patient it was ok. [facility] Colonoscopy<sup>5</sup> [id number] 06/24/2014 Per patient it was ok. [facility] Colonoscopy<sup>5</sup> [id number] 06/24/2014 Per patient it was ok. [facility] Colonoscopy<sup>3</sup> [id number] 06/24/2014 Per patient it was ok. [facility] Emergency department visit for the evaluation and management of a patient, which requires these 3 sullivan components: A detailed history; A detailed examination; and Medical decision making of moderate complexity. Counseling and/or coordination of care with o [id number] 04/01/2013 [facility] Therapeutic, prophylactic, or diagnostic injection (specify substance or drug); subcutaneous or intramuscular 11132 04/01/2013 [facility] Hysterectomy<sup>2</sup> [id number] 06/24/1979 Due to fibroids [facility] Hysterectomy<sup>2</sup> [id number] 06/24/1979 Due to fibroids [facility] Hysterectomy<sup>6</sup> [id number] 06/24/1979 Due to fibroids [facility] Hysterectomy<sup>6</sup> [id number] 06/24/1979 Due to fibroids [facility] Hysterectomy<sup>4</sup> [id number] 06/24/1979 Due to fibroids [facility] Appendectomy [id number] [place] Cholecystectomy [id number] [facility] Tubal ligation [id number] [facility] Appendectomy [id number] [facility] Cholecystectomy [id number] [place] Tubal ligation [id number] [place] Appendectomy [id number] [facility] Cholecystectomy [id number] [facility] Tubal ligation [id number] [facility]
--- OUTSIDE RECORDS SUMMARY | 2018-10-27 16:28 | XMS REPORT | Summary of Care ---
Author Author [facility] Organization [facility] Address Unknown Phone Unavailable Encounter NELIA Cortes(JOEL) [id number] Date(s): 10/15/18 - 10/15/18 [facility] [address] [place] [address]- Discharge Disposition: Home or Self Care Attending Physician: Ciara Cardoso MD Referring Physician: Ciara Cardoso MD Vital Signs No data available for this section Problem List Condition Effective Dates Status Health Status Informant CVD (cerebrovascular Active disease)(Confirmed) Body mass index Active (BMI) 29.0-29.9, adult(Confirmed) Hypertension(Confirm Active ed) Left-sided Active weakness(Confirmed) Mixed Active hyperlipidemia(Confi rmed) Left shoulder Active pain(Confirmed) Type 2 diabetes Active mellitus with hyperglycemia(Confir med) Unstable Active gait(Confirmed) Vitamin D Active deficiency(Confirmed ) Allergies, Adverse Reactions, Alerts Substance Reaction Severity Status vancomycin rash Low Active iodine Active Medications No data available for this section Results No data available for this section Immunizations No data available for this section Procedures Procedure Date Related Diagnosis Body Site Status Bone density scan1 10/15/18 Completed Mammogram2 10/15/18 Completed Diabetic Retinopathy Study 7 field 10/08/18 Completed stereoscopic fundus photography3, 4 Colonoscopy2014 Completed Hysterectomy1979 Completed Appendectomy Completed Cholecystectomy Completed Tubal ligation Completed 11. Osteoporosis of the left femoral neck. 2. Osteopenia of the total left hip. 3. Osteopenia of the lumbar spine. 2There is no mammographic evidence of malignancy. A 1 year screening mammogram is recommended.(10/16/2019) 3NPDR. Dr Ronak Lott 4Dr Oren is retinal specialist. 5Per patient it was ok. 6Due to fibroids Social History Social History Type Response Alcohol Past Smoking Status Former smoker; Type: Cigarettes; Exposure to Tobacco Smoke None; Cigarette Smoking Last 365 Days No; Reg Smoking Cessation Counseling No entered on: 10/09/18 Assessment and Plan No data available for this section
--- OUTSIDE RECORDS SUMMARY | 2018-10-27 16:28 | XMS REPORT | Summary of Care ---
Author Author [facility] Organization [facility] Address Unknown Phone Unavailable Encounter HQ Sophia(FIN) [id number] Date(s): 10/09/18 - 10/09/18 [facility] [address] [place] [address]- Discharge Disposition: Home or Self Care Attending Physician: Ciara Cardoso MD Vital Signs Most recent to 1 oldest [Reference Range]: Height 157.48 cm (10/09/18 2:23 PM) Temperature Oral 98.0 DegF [96.4-99.1 DegF] (10/09/18 2:23 PM) Blood Pressure 146/77 mmHg [90-140/60-90 mmHg] *HI* (10/09/18 2:23 PM) Respiratory Rate 14 BRMIN [14-20 BRMIN] (10/09/18 2:23 PM) Peripheral Pulse 79 bpm Rate [60-100 bpm] (10/09/18 2:23 PM) Weight 72.273 kg (10/09/18 2:23 PM) Body Mass Index 29.14 m2 (10/09/18 2:23 PM) Problem List Condition Effective Dates Status Health [...] vancomycin rash Low Active iodine Active Medications atorvastatin 40 mg oral tablet 40 mg=1 tab, PO, Bedtime, # 90 tab, 1 Refill(s), Pharmacy: [facility] [id number] Start Date: 10/09/18 Status: Ordered Results No data available for this section Immunizations No data available for this section Procedures Procedure Date Related Diagnosis Body Site Status Diabetic Retinopathy Study 7 field 10/08/18 Completed stereoscopic fundus photography1, 2 Colonoscopy3 2014 Completed Hysterectomy4 1979 Completed Appendectomy Completed Cholecystectomy Completed Tubal ligation Completed 1NPDR. Dr Ronak Lott 2Dr Oren is retinal specialist. 3Per patient it was ok. 4Due to fibroids Social History Social History Type Response Alcohol Past Smoking Status Former smoker; Type: Cigarettes; Exposure to Tobacco Smoke None; Cigarette Smoking Last 365 Days No; Reg Smoking Cessation Counseling No entered on: 10/09/18 Assessment and Plan No data available for this section
--- OUTSIDE RECORDS SUMMARY | 2018-10-27 16:28 | XMS REPORT | Summary of Care ---
Author Author [facility] Organization [facility] Address Unknown Phone Unavailable Encounter NELIA Cortes(FIN) [id number] Date(s): 09/19/18 - 09/19/18 [facility] [address] [facility] [address] [place] [address]- Discharge Disposition: Home or Self Care Attending Physician: Ciara Cardoso MD Vital Signs Most recent to 1 oldest [Reference Range]: Height 157.48 cm (09/19/18 11:42 AM) Temperature Oral 98.5 DegF [96.4-99.1 DegF] (09/19/18 11:42 AM) Blood Pressure 145/69 mmHg [90-140/60-90 mmHg] *HI* (09/19/18 11:42 AM) Respiratory Rate 16 BRMIN [14-20 BRMIN] (09/19/18 11:42 AM) Peripheral Pulse 76 bpm Rate [60-100 bpm] (09/19/18 11:42 AM) Weight 72.273 kg (09/19/18 11:42 AM) Body Mass Index 29.14 m2 (09/19/18 11:42 AM) Problem List Condition Effective Dates Status Health [...] vancomycin rash Low Active iodine Active Medications amLODIPine 10 mg oral tablet 10 mg=1 tab, PO, Daily, # 90 tab, 1 Refill(s) Start Date: 09/19/18 Status: Ordered Aspirin Enteric Coated 325 mg oral delayed release tablet 325 mg=1 tab, PO, Daily, 0 Refill(s) Start Date: 09/19/18 Status: Ordered atorvastatin 40 mg oral tablet 40 mg=1 tab, PO, Bedtime, # 90 tab, 1 Refill(s) Start Date: 09/19/18 Status: Ordered gabapentin 300 mg oral capsule 300 mg=1 cap, PO, BID, # 60 cap, 1 Refill(s), [id number] Start Date: 09/19/18 Stop Date: 11/18/18 Status: Ordered glipiZIDE 5 mg oral tablet 5 mg=1 tab, PO, Before Breakfast, # 30 tab, 0 Refill(s) Start Date: 09/19/18 Status: Ordered hydrochlorothiazide-losartan 12.5 mg-50 mg oral tablet 1 tab, PO, Daily, # 90 tab, 0 Refill(s) Start Date: 09/19/18 Status: Ordered Levemir FlexPen 100 units/mL subcutaneous solution 18 unit, SUB-Q, Bedtime, 0 Refill(s) Start Date: 09/19/18 Status: Ordered metoprolol tartrate 25 mg oral tablet 12.5 mg=0.5 tab, PO, BID, 0 Refill(s) Start Date: 09/19/18 Status: Ordered pantoprazole 40 mg oral enteric coated tablet 40 mg=1 tab, PO, Daily, # 90 tab, 0 Refill(s) Start Date: 09/19/18 Status: Ordered trazodone 50 mg oral tablet 50 mg=1 tab, PO, Bedtime, after meals for insomnia, # 30 tab, 1 Refill(s), [facility] [id number] Start Date: 09/19/18 Status: Ordered Results No data available for this section Immunizations No data available for this section Procedures Procedure Date Related Diagnosis Body Site Status Colonoscopy2014 Completed Hysterectomy2 1979 Completed Appendectomy Completed Cholecystectomy Completed Tubal ligation Completed 1Per patient it was ok. 2Due to fibroids Social History Social History Type Response Alcohol Past Smoking Status Former smoker; Type: Cigarettes; Exposure to Tobacco Smoke None; Cigarette Smoking Last 365 Days No; Reg Smoking Cessation Counseling No entered on: 09/19/18 Assessment and Plan No data available for this section
--- OUTSIDE RECORDS SUMMARY | 2018-10-27 16:28 | XMS REPORT | Summary of Care ---
Author Author [facility] Organization [facility] Address Unknown Phone Unavailable Encounter NELIA Cortes(FIN) [id number] Date(s): 10/20/18 - 10/20/18 [facility] [address] [facility] [address] [place] [address]- Discharge Disposition: Home or Self Care Attending Physician: Ciara Cardoso MD Vital Signs Most recent to 1 oldest [Reference Range]: Height 154.94 cm (10/20/18 11:23 AM) Temperature Oral 97.9 DegF [96.4-99.1 DegF] (10/20/18 11:23 AM) Blood Pressure 154/78 mmHg [90-140/60-90 mmHg] *HI* (10/20/18 11:23 AM) Respiratory Rate 16 BRMIN [14-20 BRMIN] (10/20/18 11:23 AM) Peripheral Pulse 86 bpm Rate [60-100 bpm] (10/20/18 11:23 AM) Weight 74.091 kg (10/20/18 11:23 AM) Body Mass Index 30.86 m2 (10/20/18 11:23 AM) Problem List Condition Effective Dates Status Health Status Informant CVD (cerebrovascular Active disease)(Confirmed) CKD (chronic kidney Active disease), stage IV(Confirmed) Body mass index Active (BMI) 29.0-29.9, adult(Confirmed) Hypertension(Confirm Active ed) Left-sided Active weakness(Confirmed) Mixed Active hyperlipidemia(Confi rmed) Osteoporosis(Confirm Active ed) Left shoulder Active pain(Confirmed) Type 2 diabetes Active mellitus with hyperglycemia(Confir med) Unstable Active gait(Confirmed) Vitamin D Active deficiency(Confirmed ) Allergies, Adverse Reactions, Alerts Substance Reaction Severity Status vancomycin rash Low Active iodine Active Medications alendronate 70 mg oral tablet 70 mg=1 tab, PO, Q7D, with 6 to 8 ounces plain water, at least 30 minutes before first food, beverage, or medication of the day, # 12 tab, 3 Refill(s) Start Date: 10/20/18 Status: Ordered atorvastatin 40 mg oral tablet 40 mg=1 tab, PO, Bedtime, # 90 tab, 1 Refill(s), Pharmacy: [facility] [id number] Start Date: 10/20/18 Status: Ordered citalopram 10 mg oral tablet 10 mg=1 tab, PO, Daily, # 30 tab, 1 Refill(s), Pharmacy: [facility] [id number] Start Date: 10/20/18 Status: Ordered ergocalciferol 50,000 intl units oral capsule 50,000 IntlUnit=1 cap, PO, qWeek, # 12 cap, 2 Refill(s), Pharmacy: [facility] [id number] Start Date: 10/21/18 Stop Date: 06/30/19 Status: Ordered hydrochlorothiazide-lisinopril 12.5 mg-20 mg oral tablet 1 tab, PO, Daily, # 90 tab, 1 Refill(s), Pharmacy: [facility] [id number], s top losartan hctz and amlodipine. Start Date: 10/20/18 Status: Ordered OneTouch Ultra Blue Blood Glucose Test Strip 1 ea, MISC, TID, Last HBA1c:<> Insulin Dep:Y High freq tests for: Poor control Certified Medically Necessary:<>, # 270 ea, Insulin dependent, Does not use insulin pump, Last DM eval date 10/20/18, 3 Refill(s), Pharmacy: [facility] [id number] Start Date: 10/20/18 Stop Date: 10/15/19 Status: Ordered Results No data available for [...] Reg Smoking Cessation Counseling No entered on: 10/20/18 Assessment and Plan No data available for this section
--- OUTSIDE RECORDS SUMMARY | 2018-10-27 16:28 | XMS REPORT | Summary of Care ---
Author Author [facility] Organization [facility] Address Unknown Phone Unavailable Encounter HQ Sophia(FIN) [id number] Date(s): 10/20/18 - 10/20/18 [facility] [address] [facility] [address] [place] [address]- Attending Physician: Ciara Cardoso MD Vital Signs No [...]
--- OUTSIDE RECORDS SUMMARY | 2018-10-27 16:28 | XMS REPORT | Summary of Care ---
Author Author [facility] Organization [facility] Address Unknown Phone Unavailable Encounter HQ Sophia(FIN) [id number] Date(s): 09/22/18 - 09/22/18 [facility] [address] [place] [address]- Discharge Disposition: Home or Self Care Attending [...]
--- OUTSIDE RECORDS SUMMARY | 2018-10-27 16:29 | XMS REPORT | CCD ---
Author Author Auto Generated Organization [facility] Address Unknown Phone Unavailable Care Team Providers Care Scooter Mechanic Name Role Phone Jose C Gold CP Allergies, Adverse Reactions, Alerts Substance Reaction Status vancomycin rash Active Problem List Condition Effective Dates Status Chest pain Active DM - Diabetes mellitus Active DM - Diabetes mellitus 06/1999 Active HTN - Hypertension Active HTN - Hypertension 01/2001 Active Hyperlipidemia Active Medications Medication Instructions Start Date End Date Status Insulin regular 8 unit, Route: SUB-Q, ONCE, Dosing 04/01/2013 04/01/2013 Completed Weight 79.091, kg, Start date: 04/01/13 12:23:00, Stop date: 04/01/13 12:23:00 dexamethasone 10 mg, Route: IM, ONCE, Dosing 04/01/2013 04/01/2013 Completed Weight 79.091, kg, Priority: STAT, Start date: 04/01/13 11:36:00, Stop date: 04/01/13 11:36:00 ketorolac 60 mg, Route: IM, Drug form: INJ, 04/01/2013 04/01/2013 Completed ONCE, Dosing Weight 79.091, kg, Priority: STAT, Start date: 04/01/13 11:35:00, Stop date: 04/01/13 11:35:00 Bicillin L-A 1,200,000 unit, 2 mL, Route: IM, 04/01/2013 04/01/2013 Completed Drug form: INJ, ONCE, Dosing Weight 79.091, kg, Start date: 04/01/13 11:35:00, Stop date: 04/01/13 11:35:00 lisinopril 10 mg 10 mg, 1 tab, PO, Daily, 30 tab, 04/01/2013 Ordered oral tablet Substitution Allowed, TAB metFORmin 500 mg 500 mg, 1 tab, PO, BID, 30 tab, 04/01/2013 Ordered oral tablet Substitution Allowed Vital Signs Most recent to oldest [Reference Range]: 1 2 3 Height 160.02 cm (04/01/2013 09:47:00) Temperature Oral [96.4-99.1 DegF] 98.2 DegF (04/01/2013 09:47:00) Systolic Blood Pressure [90-140 mmHg] 136 mmHg (04/01/2013 13:51:00) 142 mmHg *HI* (04/01/2013 10:19:00) 132 mmHg (04/01/2013 09:47:00) Diastolic Blood Pressure [60-90 mmHg] 84 mmHg (04/01/2013 13:51:00) 68 mmHg (04/01/2013 10:19:00) 85 mmHg (04/01/2013 09:47:00) Respiratory Rate [14-20 BRMIN] 16 BRMIN (04/01/2013 13:51:00) 16 BRMIN (04/01/2013 10:19:00) 18 BRMIN (04/01/2013 09:47:00) Peripheral Pulse Rate [60-100 bpm] 86 bpm (04/01/2013 13:51:00) 90 bpm (04/01/2013 10:19:00) 90 bpm (04/01/2013 09:47:00) Weight 79.091 kg (04/01/2013 09:47:00) Procedures Procedures Date Related Diagnosis Appendectomy Cholecystectomy Tubal ligation
--- OUTSIDE RECORDS SUMMARY | 2018-10-27 16:29 | XMS REPORT | CCD ---
Author Author Auto Generated Organization [facility] Address Unknown Phone Unavailable Care Team Providers Care Slash Trimmer Name Role Phone Jovon Rai CP Allergies, Adverse Reactions, Alerts Substance Reaction Status vancomycin rash Active Problem List Condition Effective Dates Status Chest pain Active DM - Diabetes mellitus Active DM - Diabetes mellitus 06/1999 Active HTN - Hypertension Active HTN - Hypertension 01/2001 Active Hyperlipidemia Active
--- OUTSIDE RECORDS SUMMARY | 2018-10-27 16:29 | XMS REPORT | CCD ---
Author Author Auto Generated Organization [facility] Address Unknown Phone Unavailable Care Team Providers Care Talent Assistant Name Role Phone Jose C Gold CP [...] 04/01/13 11:35:00(penicillin G benzathine 1.2 MilUnit/2 ml INJ)(Same as: Bicillin L-A, Permapen) NOT For Daily Use lisinopril 10 mg 10 mg, 1 tab, [...] (04/01/2013 09:47:00) Weight 79.091 kg (04/01/2013 09:47:00) Results BEDSIDE GLUCOSE TESTING Most recent to oldest [Reference Range]: 1 2 Glucose POC [70-99 mg/dL] 340 mg/dL 1 *HI* (04/01/2013 13:22:00) 356 mg/dL 2 *HI* (04/01/2013 12:03:00) 1Interpretive Data: Upper Reportable Limit: 200 mg/dL. 2Interpretive Data: Upper Reportable Limit: 200 mg/dL. Procedures Procedures Date Related Diagnosis Appendectomy Cholecystectomy Emergency department visit for the evaluation and management 04/01/2013 00:00:00 of a patient, which requires these 3 sullvian components: A detailed history; A detailed examination; and Medical decision making of moderate complexity. Counseling and/or coordination of care with o Therapeutic, prophylactic, or diagnostic injection (specify 04/01/2013 00:00:00 substance or drug); subcutaneous or intramuscular Therapeutic, prophylactic, or diagnostic injection (specify 04/01/2013 00:00:00 substance or drug); subcutaneous or intramuscular Therapeutic, prophylactic, or diagnostic injection (specify 04/01/2013 00:00:00 substance or drug); subcutaneous or intramuscular Therapeutic, prophylactic, or diagnostic injection (specify 04/01/2013 00:00:00 substance or drug); subcutaneous or intramuscular Tubal ligation
--- OUTSIDE RECORDS SUMMARY | 2018-10-27 16:29 | XMS REPORT | Summary of Care ---
Author Organization Unknown Address Unknown Phone Unavailable Encounter HQ Sophia(JOEL) [id number] Date(s): 03/05/14 - 03/06/14 [facility] [id number] [address] Discharge Diagnosis: Abdominal pain Discharge Diagnosis: Acute lower urinary tract infection Discharge Disposition: Home Physician Attending: Susi Stanofrd MD Reason for Visit ABD PAIN Vital Signs 1 2 3 Most recent to oldest [Reference Range]: 160.02 cm (03/05/14 5:44 PM) Height 98.3 DegF (03/05/14 5:44 PM) Temperature Oral [96.4-99.1 DegF] 132 mmHg (03/06/14 3:46 AM) 134 mmHg (03/05/14 10:24 PM) 143 mmHg *HI* (03/05/14 5:44 PM) Systolic Blood Pressure [90-140 mmHg] 76 mmHg (03/06/14 3:46 AM) 76 mmHg (03/05/14 10:24 PM) 81 mmHg (03/05/14 5:44 PM) Diastolic Blood Pressure [60-90 mmHg] 16 BRMIN (03/06/14 3:46 AM) 16 BRMIN (03/05/14 10:24 PM) 16 BRMIN (03/05/14 5:44 PM) Respiratory Rate [14-20 BRMIN] 70 bpm (03/06/14 3:46 AM) 75 bpm (03/05/14 10:24 PM) 74 bpm (03/05/14 5:44 PM) Peripheral Pulse Rate [60-100 bpm] 78.636 kg (03/05/14 5:44 PM) Weight 30.71 m2 (03/05/14 5:44 PM) Body Mass Index Problem List Condition Effective Dates Status Health Status Informant Chest Active pain(Confirmed) DM - Diabetes Active mellitus(Confirmed) DM - Diabetes 06/1999 Active mellitus(Confirmed) HTN - Active Hypertension(Confirm ed) HTN - 01/2001 Active Hypertension(Confirm ed) Hyperlipidemia(Confi Active rmed) Allergies, Adverse Reactions, Alerts Substance Reaction Severity Status iodine Active vancomycin rash Low Active Medications acetaminophen-hydrocodone 325 mg-5 mg oral tablet 1 tab, PO, Q4H, for pain, # 12 tab, 0 Refill(s) Start Date: 03/06/14 Status: Ordered ciprofloxacin 500 mg oral tablet 500 mg=1 tab, PO, Q12H, # 20 tab, 0 Refill(s) Start Date: 03/06/14 Stop Date: 03/16/14 Status: Ordered morphine Sulfate 4 mg, Route: IVP, Drug form: INJ, ONCE, Dosing Weight 78.636, kg, Priority: STAT , Start date: 03/05/14 22:15:00, Stop date: 03/05/14 22:15:00 Start Date: 03/05/14 Stop Date: 03/05/14 Status: Completed Zofran 4 mg, Route: IVP, Drug form: INJ, ONCE, Dosing Weight 78.636, kg, Priority: STAT , Start date: 03/05/14 22:16:00, Stop date: 03/05/14 22:16:00 Start Date: 03/05/14 Stop Date: 03/05/14 Status: Completed Results ELECTROLYTES Most recent to 1 oldest [Reference Range]: Sodium Lvl [135-145 134 mEq/L mEq/L] *LOW* (03/05/14 7:50 PM) Potassium Lvl 4.0 mEq/L [3.5-5.1 mEq/L] (03/05/14 7:50 PM) Chloride Lvl [95-109 100 mEq/L mEq/L] (03/05/14 7:50 PM) CO2 [24-32 mEq/L] 25 mEq/L (03/05/14 7:50 PM) AGAP [10.0-20.0 13.0 mEq/L mEq/L] (03/05/14 7:50 PM) CHEM PANEL Most recent to 1 oldest [Reference Range]: Creatinine Lvl 0.6 mg/dL [0.5-1.4 mg/dL] (03/05/14 7:50 PM) eGFR 99 mL/min/1.73m2 1 *NA* (03/05/14 7:50 PM) BUN [7-22 mg/dL] 11 mg/dL (03/05/14 7:50 PM) B/C Ratio [6-25] 18 (03/05/14 7:50 PM) Glucose Lvl [70-99 306 mg/dL 2 mg/dL] *HI* (03/05/14 7:50 PM) Total Protein 8.0 g/dL [6.4-8.4 g/dL] (03/05/14 7:50 PM) Albumin Lvl [3.5-5.0 3.6 g/dL g/dL] (03/05/14 7:50 PM) Globulin [2.0-4.0 4.4 g/dL g/dL] *HI* (03/05/14 7:50 PM) A/G Ratio [0.7-1.6] 0.8 (03/05/14 7:50 PM) Calcium Lvl 9.1 mg/dL [8.5-10.5 mg/dL] (03/05/14 7:50 PM) ALT [0-65 unit/L] 28 unit/L (03/05/14 7:50 PM) AST [0-37 unit/L] 18 unit/L (03/05/14 7:50 PM) Alk Phos [39-136 152 unit/L unit/L] *HI* (03/05/14 7:50 PM) Bili Total [0.2-1.3 0.9 mg/dL mg/dL] (03/05/14 7:50 PM) 1Result Comment: The eGFR is calculated using [...] from the National Kidney Disease Education Program ( NKDEP) which additionally recommends that when the eGFR is used in patients with extremes of body mass index for purposes of drug dosing, the eGFR should be mul tiplied by the estimated BMI. 2Interpretive Data: Adult reference range values reflect the clinical guidelines of the [place] [employer]. URINE AND STOOL Most recent to 1 oldest [Reference Range]: UA Turbidity [Clear] Marked *ABN* (03/05/14 12:30 AM) UA Color [Yellow] Yellow *NA* (03/05/14 12:30 AM) UA pH [5.0-8.0] 5.0 (03/05/14 12:30 AM) UA Spec Grav 1.032 [<=1.030] *HI* (03/05/14 12:30 AM) UA Glucose [Negative 500 mg/dL mg/dL] *ABN* (03/05/14 12:30 AM) UA Blood [Negative] Small *ABN* (03/05/14 12:30 AM) UA Ketones [Negative 20 mg/dL mg/dL] *ABN* (03/05/14 12:30 AM) UA Protein [Negative 30 mg/dL mg/dL] *ABN* (03/05/14 12:30 AM) UA Urobilinogen <=1.0 mg/dL [0.1-1.0 mg/dL] *NA* (03/05/14 12:30 AM) UA Bili [Negative] Negative *NA* (03/05/14 12:30 AM) UA Leuk Est Large [Negative] *ABN* (03/05/14 12:30 AM) UA Nitrite Negative [Negative] (03/05/14 12:30 AM) UA WBC [0-5 /HPF] 128 /HPF *HI* (03/05/14 12:30 AM) UA RBC [0-2 /HPF] 15 /HPF *HI* (03/05/14 12:30 AM) UA Sq Epi [Few /LPF] Many /LPF *ABN* (03/05/14 12:30 AM) HEMATOLOGY Most recent to 1 oldest [Reference Range]: WBC [3.7-10.4 K/CMM] 10.7 K/CMM *HI* (03/05/14 7:50 PM) RBC [4.20-5.40 5.84 M/CMM M/CMM] *HI* (03/05/14 7:50 PM) Hgb [12.0-16.0 g/dL] 16.5 g/dL *HI* (03/05/14 7:50 PM) Hct [36.0-48.0 %] 49.5 % *HI* (03/05/14 7:50 PM) MCV [80.0-98.0 fL] 84.7 fL (03/05/14 7:50 PM) MCH [27.0-31.0 pg] 28.3 pg (03/05/14 7:50 PM) MCHC [32.0-36.0 33.4 g/dL g/dL] (03/05/14 7:50 PM) RDW [11.5-14.5 %] 13.0 % (03/05/14 7:50 PM) Platelet [133-450 366 K/CMM K/CMM] (03/05/14 7:50 PM) MPV [7.4-10.4 fL] 8.7 fL (03/05/14 7:50 PM) Segs [45.0-75.0 %] 60.9 % (03/05/14 7:50 PM) Lymphocytes 32.4 % [20.0-40.0 %] (03/05/14 7:50 PM) Monocytes [2.0-12.0 4.4 % %] (03/05/14 7:50 PM) Eosinophils [0.0-4.0 1.2 % %] (03/05/14 7:50 PM) Basophils [0.0-1.0 1.1 % %] *HI* (03/05/14 7:50 PM) Segs-Bands # 6.5 K/CMM [1.5-8.1 K/CMM] (03/05/14 7:50 PM) Lymphocytes # 3.5 K/CMM [1.0-5.5 K/CMM] (03/05/14 7:50 PM) Monocytes # [0.0-0.8 0.5 K/CMM K/CMM] (03/05/14 7:50 PM) Eosinophils # 0.1 K/CMM [0.0-0.5 K/CMM] (03/05/14 7:50 PM) Basophils # [0.0-0.2 0.1 K/CMM K/CMM] (03/05/14 7:50 PM) Medications Administered During Your Visit No data available for this section Immunizations No data available for this section
--- OUTSIDE RECORDS SUMMARY | 2018-10-27 16:29 | XMS REPORT | CCD ---
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 Role Phone Caden Rouse CP Allergies, Adverse Reactions, Alerts Substance Reaction Status vancomycin rash Active Problem List Condition Effective Dates Status Chest pain Active DM - Diabetes mellitus 06/1999 Active HTN - Hypertension 01/2001 Active Medications Medication Instructions Start Date End Date Status insulin aspart 4 unit, 0.04 mL, Route: SUB-Q, Drug 07/29/2011 08/01/2011 Discontinued form: SOLN, TID-Before Meals, PRN Blood Glucose Results, Start date: 07/29/11 16:33:00, Duration: 30 day, Stop date: 08/28/11 16:32:00 insulin aspart 3 unit, 0.03 mL, Route: SUB-Q, Drug 07/29/2011 08/01/2011 Discontinued form: SOLN, TID-Before Meals, PRN Blood Glucose Results, Start date: 07/29/11 16:33:00, Duration: 30 day, Stop date: 08/28/11 16:32:00 insulin aspart 5 unit, 0.05 mL, Route: SUB-Q, Drug 07/29/2011 08/01/2011 Discontinued form: SOLN, TID-Before Meals, PRN Blood Glucose Results, Start date: 07/29/11 16:33:00, Duration: 30 day, Stop date: 08/28/11 16:32:00 acetaminophen 500 mg, 1 tab, Route: PO, Drug 07/31/2011 08/01/2011 Discontinued form: TAB, Q6H, PRN Pain, Start date: 07/31/11 19:22:00, Duration: 30 day, Stop date: 08/30/11 19:21:00 Tylenol 1,000 mg, Route: PO, Drug form: 07/27/2011 07/27/2011 Completed TAB, ONCE, PRN Pain, Priority: STAT, Start date: 07/27/11 17:44:00, Stop date: 08/26/11 17:43:00 Saline Flush 0.9% 5 ml, Route: IVP, Drug Form: INJ, 07/27/2011 07/29/2011 Discontinued Q12H, Start date: 07/27/11 21:00:00, Duration: 30 day, Stop date: 08/26/11 9:00:00 Saline Flush 0.9% 5 ml, Route: IVP, Drug Form: INJ, 07/27/2011 07/29/2011 Discontinued PRN, PRN Line Flush, Start date: 07/27/11 18:25:00, Duration: 30 day, Stop date: 08/26/11 18:24:00 nitroglycerin SL Tab 0.4 mg, 1 tab, Route: SL, Drug 07/27/2011 07/29/2011 Discontinued form: TAB, Q5Min, PRN Chest Pain, Start date: 07/27/11 18:25:00, Duration: 3 doses or times, Stop date: Limited # of times aspirin 325 mg 325 mg, 1 tab, Route: PO, Drug 07/27/2011 07/29/2011 Discontinued tablet, enteric form: ECTAB, Q24H, Start date: coated 07/27/11 19:00:00, Duration: 30 day, Stop date: 08/25/11 19:00:00 insulin aspart 2 unit, 0.02 mL, Route: SUB-Q, Drug 07/29/2011 08/01/2011 Discontinued form: SOLN, TID-Before Meals, PRN Blood Glucose Results, Start date: 07/29/11 16:32:00, Duration: 30 day, Stop date: 08/28/11 16:31:00 insulin aspart 1 unit, 0.01 mL, Route: SUB-Q, Drug 07/29/2011 08/01/2011 Discontinued form: SOLN, TID-Before Meals, PRN Blood Glucose Results, Start date: 07/29/11 16:32:00, Duration: 30 day, Stop date: 08/28/11 16:31:00 glucagon 1 mg, Route: IM, Drug form: 07/29/2011 08/01/2011 Discontinued PDR/INJ, PRN, PRN Blood Glucose Results, Start date: 07/29/11 16:32:00, Duration: 30 day, Stop date: 08/28/11 16:31:00 metFORmin 500 mg 500 mg, 1 tab, PO, BID-Meals, 07/27/2011 Ordered oral tablet Substitution Allowed hydrochlorothiazide- 1 tab, PO, Daily, Substitution 07/27/2011 Ordered lisinopril 12.5 Allowed, Maintenance mg-10 mg oral tablet Dextrose 50% in 50 mL, Route: IVP, PRN, Blood 07/29/2011 08/01/2011 Discontinued Water IV Glucose Results, Start date: 07/29/11 17:36:00, Duration: 30 day, Stop date: 08/28/11 17:35:00 simvastatin 20 mg, PO, Bedtime, Substitution 07/27/2011 Ordered Allowed Vitamin D 50,000 50,000 IntlUnit, 1 cap, PO, QFri, 07/27/2011 Ordered intl units oral Substitution Allowed capsule Dextrose 50% in 25 mL, Route: IVP, PRN, Blood 07/29/2011 08/01/2011 Discontinued Water IV Glucose Results, Start date: 07/29/11 17:35:00, Duration: 30 day, Stop date: 08/28/11 17:34:00 atropine 0.5 mg, 5 mL, Route: IVP, Drug 07/29/2011 08/01/2011 Discontinued form: INJ, PRN, PRN Bradycardia, Start date: 07/29/11 16:32:00, Duration: 30 day, Stop date: 08/28/11 16:31:00 Tylenol 650 mg, 2 tab, Route: PO, Drug 07/29/2011 08/01/2011 Discontinued form: TAB, Q6H, PRN Pain, Start date: 07/29/11 16:32:00, Duration: 30 day, Stop date: 08/28/11 16:31:00 Dextrose 50% Syringe 12.5 gm, Route: IVP, Drug Form: 07/29/2011 07/29/2011 Deleted INJ, PRN, PRN Blood Glucose Results, Start date: 07/29/11 16:32:00, Duration: 30 day, Stop date: 08/28/11 16:31:00 ibuprofen 400 mg 400 mg, 1 tab, PO, TID, PRN, as 07/27/2011 Ordered oral tablet needed for headache, Substitution Allowed Dextrose 50% Syringe 25 gm, Route: IVP, Drug Form: INJ, 07/29/2011 07/29/2011 Deleted PRN, PRN Blood Glucose Results, Start date: 07/29/11 16:31:00, Duration: 30 day, Stop date: 08/28/11 16:30:00 Saline Flush 0.9% 5 ml, Route: IVP, Drug Form: INJ, 07/29/2011 08/01/2011 Discontinued Q12H, Start date: 07/29/11 21:00:00, Duration: 30 day, Stop date: 08/28/11 9:00:00 simvastatin 20 mg, 1 tab, Route: PO, Drug form: 07/29/2011 08/01/2011 Discontinued TAB, Bedtime, Start date: 07/29/11 21:00:00, Duration: 30 day, Stop date: 08/27/11 21:00:00 Metoprolol Succinate 25 mg, 1 tab, Route: PO, Drug form: 07/30/2011 08/01/2011 Discontinued ER 25 mg oral ERTAB, Daily, Start date: 07/30/11 tablet, extended 9:00:00, Duration: 30 day, Stop release date: 08/28/11 9:00:00 metFORmin 500 mg 500 mg, 1 tab, Route: PO, Drug 07/29/2011 08/01/2011 Discontinued oral tablet form: TAB, BID-Meals, Start date: 07/29/11 17:00:00, Duration: 30 day, Stop date: 08/28/11 8:00:00 aspirin 325 mg 325 mg, 1 tab, Route: PO, Drug 07/30/2011 08/01/2011 Discontinued tablet, enteric form: ECTAB, Daily, Start date: coated 07/30/11 9:00:00, Duration: 30 day, Stop date: 08/28/11 9:00:00 Saline Flush 0.9% 5 ml, Route: IVP, Drug Form: INJ, 07/27/2011 07/28/2011 Discontinued PRN, PRN Line Flush, Start date: 07/27/11 14:54:00, Duration: 24 hr, Stop date: 07/28/11 14:53:00 aspirin 325 mg 325 mg, Route: PO, Drug form: TAB, 07/27/2011 07/27/2011 Completed tablet ONCE, Priority: STAT, Start date: 07/27/11 14:54:00, Stop date: 07/27/11 14:54:00 atropine 0.5 mg, 5 mL, Route: IVP, Drug 07/27/2011 07/29/2011 Discontinued form: INJ, PRN, PRN Bradycardia, Start date: 07/27/11 19:19:00, Duration: 30 day, Stop date: 08/26/11 19:18:00 Metoprolol Succinate 25 mg, 1 tab, Route: PO, Drug form: 07/29/2011 07/29/2011 Discontinued ER 25 mg oral ERTAB, Daily, Start date: 07/29/11 tablet, extended 9:00:00, Duration: 30 day, Stop release date: 08/27/11 9:00:00 Dextrose 50% Syringe 12.5 gm, 25 mL, Route: IVP, Drug 07/27/2011 07/29/2011 Discontinued Form: INJ, PRN, PRN Blood Glucose Results, Start date: 07/27/11 18:24:00, Duration: 30 day, Stop date: 08/26/11 18:23:00 glucagon 1 mg, Route: IM, Drug form: 07/27/2011 07/29/2011 Discontinued PDR/INJ, PRN, PRN Blood Glucose Results, Start date: 07/27/11 18:24:00, Duration: 30 day, Stop date: 08/26/11 18:23:00 Dextrose 50% Syringe 25 gm, 50 mL, Route: IVP, Drug 07/27/2011 07/29/2011 Discontinued Form: INJ, PRN, PRN Blood Glucose Results, Start date: 07/27/11 18:24:00, Duration: 30 day, Stop date: 08/26/11 18:23:00 insulin aspart 2 unit, 0.02 mL, Route: SUB-Q, Drug 07/27/2011 07/29/2011 Discontinued form: SOLN, TID-Before Meals, PRN Blood Glucose Results, Start date: 07/27/11 18:24:00, Duration: 30 day, Stop date: 08/26/11 18:23:00 insulin aspart 1 unit, 0.01 mL, Route: SUB-Q, Drug 07/27/2011 07/29/2011 Discontinued form: SOLN, TID-Before Meals, PRN Blood Glucose Results, Start date: 07/27/11 18:24:00, Duration: 30 day, Stop date: 08/26/11 18:23:00 insulin aspart 4 unit, 0.04 mL, Route: SUB-Q, Drug 07/27/2011 07/29/2011 Discontinued form: SOLN, TID-Before Meals, PRN Blood Glucose Results, Start date: 07/27/11 18:24:00, Duration: 30 day, Stop date: 08/26/11 18:23:00 insulin aspart 3 unit, 0.03 mL, Route: SUB-Q, Drug 07/27/2011 07/29/2011 Discontinued form: SOLN, TID-Before Meals, PRN Blood Glucose Results, Start date: 07/27/11 18:24:00, Duration: 30 day, Stop date: 08/26/11 18:23:00 insulin aspart 5 unit, 0.05 mL, Route: SUB-Q, Drug 07/27/2011 07/29/2011 Discontinued form: SOLN, TID-Before Meals, PRN Blood Glucose Results, Start date: 07/27/11 18:24:00, Duration: 30 day, Stop date: 08/26/11 18:23:00 metFORmin 500 mg 500 mg, 1 tab, Route: PO, Drug 07/28/2011 07/29/2011 Discontinued oral tablet form: TAB, BID-Meals, Start date: 07/28/11 17:00:00, Duration: 30 day, Stop date: 08/27/11 8:00:00 simvastatin 20 mg, 1 tab, Route: PO, Drug form: 07/28/2011 07/29/2011 Discontinued TAB, Bedtime, Start date: 07/28/11 21:00:00, Duration: 30 day, Stop date: 08/26/11 21:00:00 Tylenol 650 mg, 2 tab, Route: PO, Drug 07/28/2011 07/29/2011 Discontinued form: TAB, Q6H, PRN Pain, Start date: 07/28/11 4:25:00, Duration: 30 day, Stop date: 08/27/11 4:24:00 Saline Flush 0.9% 5 ml, Route: IVP, Drug Form: INJ, 07/29/2011 08/01/2011 Discontinued PRN, PRN Line Flush, Start date: 07/29/11 16:33:00, Duration: 30 day, Stop date: 08/28/11 16:32:00 nitroglycerin SL Tab 0.4 mg, 1 tab, Route: SL, Drug 07/29/2011 08/01/2011 Discontinued form: TAB, Q5Min, PRN Chest Pain, Start date: 07/29/11 16:33:00, Duration: 3 doses or times, Stop date: Limited # of times Vital Signs Most recent to oldest [Reference Range]: 1 2 3 Height 157.48 cm (07/27/2011 18:35:00) 157.48 cm (07/27/2011 14:46:00) Temperature Oral [96.4-99.1 DegF] 98.2 DegF (08/01/2011 07:57:00) 97.4 DegF (08/01/2011 04:00:00) 98.2 DegF (08/01/2011 00:00:00) Systolic Blood Pressure [90-140 mmHg] 122 mmHg (08/01/2011 07:57:00) 109 mmHg (08/01/2011 04:00:00) 92 mmHg (08/01/2011 00:00:00) Diastolic Blood Pressure [60-90 mmHg] 69 mmHg (08/01/2011 07:57:00) 71 mmHg (08/01/2011 04:00:00) 56 mmHg *LOW* (08/01/2011 00:00:00) Respiratory Rate [14-20 BRMIN] 18 BRMIN (08/01/2011 07:57:00) 20 BRMIN (08/01/2011 04:00:00) 18 BRMIN (08/01/2011 00:00:00) Peripheral Pulse Rate [60-100 bpm] 69 bpm (08/01/2011 07:57:00) 71 bpm (08/01/2011 04:00:00) 70 bpm (08/01/2011 00:00:00) Weight 81.364 kg (07/27/2011 18:35:00) 81.364 kg (07/27/2011 14:46:00) Results BEDSIDE GLUCOSE TESTING Most recent to oldest [Reference Range]: 1 2 3 Gluc POC Lifscn [65-110 mg/dL] 162 mg/dL 1 *HI* (08/01/2011 06:20:00) 226 mg/dL 2 *HI* (07/31/2011 21:03:00) 144 mg/dL 3 *HI* (07/31/2011 16:04:00) Comment1 Notify RN/MD *NA* (07/31/2011 11:10:00) Notify RN/MD *NA* (07/31/2011 06:16:00) Notify RN/MD *NA* (07/30/2011 15:44:00) 1Interpretive Data: Upper Reportable Limit: 200 mg/dL. 2Interpretive Data: Upper Reportable Limit: 200 mg/dL. 3Interpretive Data: Upper Reportable Limit: 200 mg/dL. CHEMISTRY Most recent to oldest [Reference Range]: 1 2 3 Sodium Lvl [135-145 mEq/L] 135 mEq/L (07/27/2011 15:00:00) Potassium Lvl [3.5-5.1 mEq/L] 3.9 mEq/L (07/27/2011 15:00:00) Chloride Lvl [95-109 mEq/L] 103 mEq/L (07/27/2011 15:00:00) CO2 [24-32 mEq/L] 21 mEq/L *LOW* (07/27/2011 15:00:00) AGAP [10.0-20.0 mEq/L] 14.9 mEq/L (07/27/2011 15:00:00) Creatinine Lvl [0.5-1.4 mg/dL] 0.8 mg/dL (07/27/2011 15:00:00) BUN [7-22 mg/dL] 23 mg/dL *HI* (07/27/2011 15:00:00) B/C Ratio [6-25] 29 *HI* (07/27/2011 15:00:00) Glucose Lvl 352 mg/dL 4 *NA* (07/27/2011 15:00:00) Total Protein [6.4-8.4 g/dL] 8.0 g/dL (07/27/2011 15:00:00) Albumin Lvl [3.5-5.0 g/dL] 3.8 g/dL (07/27/2011 15:00:00) Globulin [2.0-4.0 g/dL] 4.2 g/dL *HI* (07/27/2011 15:00:00) A/G Ratio [0.7-1.6] 0.9 (07/27/2011 15:00:00) Calcium Lvl [8.5-10.5 mg/dL] 8.9 mg/dL (07/27/2011 15:00:00) ALT [0-65 U/L] 22 U/L (07/27/2011 15:00:00) AST [0-37 U/L] 6 U/L (07/27/2011 15:00:00) Alk Phos [39-136 U/L] 99 U/L (07/27/2011 15:00:00) Bili Total [0.2-1.3 mg/dL] 0.4 mg/dL (07/27/2011 15:00:00) Total CK [12-191 U/L] 35 U/L (07/28/2011 03:32:00) 35 U/L (07/27/2011 22:01:00) 45 U/L (07/27/2011 15:00:00) CK MB [0.5-3.6 ng/mL] <0.5 ng/mL (07/27/2011 15:00:00) CK MB Index [0.0-2.5] <1.1 (07/27/2011 15:00:00) Troponin-I [0.00-0.40 ng/mL] <0.02 ng/mL (07/28/2011 03:32:00) <0.02 ng/mL (07/27/2011 22:01:00) <0.02 ng/mL (07/27/2011 15:00:00) 4Interpretive Data: Reference Ranges : 0 - 7 days : 41 - 90 mg/dL7 days - 150 yrs : 70 - 99 mg/dL (fasting), based on the clinical recommendations of the [place] [employer]. HEMATOLOGY Most recent to oldest [Reference Range]: 1 2 3 WBC [3.7-10.4 K/CMM] 10.2 K/CMM (07/27/2011 15:00:00) RBC [4.20-5.40 M/CMM] 4.86 M/CMM (07/27/2011 15:00:00) Hgb [12.0-16.0 g/dL] 14.2 g/dL (07/27/2011 15:00:00) Hct [36.0-48.0 %] 40.0 % (07/27/2011 15:00:00) MCV [81.0-99.0 fL] 82.4 fL (07/27/2011 15:00:00) MCH [27.0-31.0 pg] 29.2 pg (07/27/2011:00:00) MCHC [32.0-36.0 g/dL] 35.4 g/dL (07/27/2011 15:00:00) RDW [11.5-14.5 %] 13.2 % (07/27/2011 15:00:00) Platelet [133-450 K/CMM] 360 K/CMM (07/27/2011 15:00:00) MPV [7.4-10.4 fL] 7.9 fL (07/27/2011 15:00:00) Segs [45.0-75.0 %] 73.9 % (07/27/2011 15:00:00) Lymphocytes [20.0-40.0 %] 20.8 % (07/27/2011 15:00:00) Monocytes [2.0-12.0 %] 4.4 % (07/27/2011 15:00:00) Eosinophils [0.0-4.0 %] 0.6 % (07/27/2011 15:00:00) Basophils [0.0-1.0 %] 0.3 % (07/27/2011 15:00:00) Segs-Bands # [1.5-8.1 K/CMM] 7.5 K/CMM (07/27/2011 15:00:00) Lymphocytes # [1.0-5.5 K/CMM] 2.1 K/CMM (07/27/2011 15:00:00) Monocytes # [0.0-0.8 K/CMM] 0.4 K/CMM (07/27/2011 15:00:00) Eosinophils # [0.0-0.5 K/CMM] 0.1 K/CMM (07/27/2011 15:00:00) Basophils # [0.0-0.2 K/CMM] 0.0 K/CMM (07/27/2011 15:00:00) PT [12.0-14.7 seconds] 12.7 seconds (07/27/2011 15:00:00) INR [0.85-1.17] 0.95 5 (07/27/2011 15:00:00) PTT [22.9-35.8 seconds] 25.2 seconds 6 (07/27/2011 15:00:00) 5Interpretive Data: RECOMMENDED RANGES FOR PROTIME INR: 2.0-3.0 for most medical and surgical thromboembolic states. 2.5-3.5 for artificial heart valves and recurrent embolism.INR SHOULD BE USED ONLY FOR PATIENTS ON STABLE ANTICOAGULANT THERAPY. 6Interpretive Data: Heparin Therapeutic Range: 57 - 92 Seconds
--- OUTSIDE RECORDS SUMMARY | 2018-10-27 16:29 | XMS REPORT | CCD ---
Author Author Auto Generated Organization [facility] Address Unknown Phone Unavailable Care Team Providers Care Wrestling Coach Name Role Phone Jose C Gold CP [...]
--- OUTSIDE RECORDS SUMMARY | 2018-10-27 16:29 | XMS REPORT | CCD ---
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
[2018-10-27] MEDS ORDERED: CLONIDINE HCL 0.3 MG TAB PO ONE (17:00)
[2018-10-27] MEDS ORDERED: CLONIDINE HCL 0.2 MG TAB PO ONE (17:30)
[2018-10-27 17:56] VITALS: BP 167/65
== END 2018-10-27 18:01 | disposition home or self-care (01) ==
LOC: ER 16:23
DX: I10 Essential (primary) hypertension (principal)
CPT/HCPCS: 99282

== ENCOUNTER 2019-01-01 12:45 | Inpatient (IN) | payer MEDICARE ==
[~2019-01-01] VITALS: Ht 157.5 cm; Wt 72.6 kg
--- OUTSIDE RECORDS SUMMARY | 2019-01-01 12:58 | XMS REPORT | Continuity of Care Document ---
Author Author Mysterio Organization Mysterio Address Unknown Phone Unavailable Care Team Providers Care Tours Hostess Name Role Phone Mysterio Unavailable Unavailable Problems Problem Status Onset Date Classification Date Reported Comments Source MAMMO --- BONE DENSITY Active 10/06/2018 [facility] M25.512 Active 09/22/2018 [facility] Discharge Diagnosis: Abdominal pain 03/06/2014 03/08/2014 [facility] Discharge Diagnosis: Acute lower urinary tract infection 03/06/2014 03/08/2014 [facility] ABD PAIN Active 03/05/2014 [facility] 719.4 - PAIN IN JOINT Active 07/24/2013 [facility] [place] SORE THROAT Active 04/01/2013 [facility] CHEST PAIN Active 07/27/2011 [facility] HTN - Hypertension Active 01/22/2001 Problem 08/03/2011 [facility] Chest pain Active Problem 04/04/2013 [facility] DM - Diabetes mellitus Active Problem 04/04/2013 [facility] HTN - Hypertension Active Problem 04/04/2013 [facility] Hyperlipidemia Active Problem 04/04/2013 [facility] Chest pain Active Problem 03/08/2014 [facility] [place] DM - Diabetes mellitus Active Problem 03/08/2014 [facility] [place] HTN - Hypertension Active Problem 03/08/2014 [facility] [place] Hyperlipidemia Active Problem 03/08/2014 [facility] [place] CVD (Confirmed) Active Problem 11/30/2018 [facility] CKD , stage IV(Confirmed) Active Problem 11/30/2018 [facility] Body mass index 29.0-29.9, adult(Confirmed) Active Problem 11/30/2018 [facility] Hypertension Active Problem 11/30/2018 [facility] Left-sided weakness Active Problem 11/30/2018 [facility] Mixed hyperlipidemia Active Problem 11/30/2018 [facility] Osteoporosis Active Problem 11/30/2018 [facility] Left shoulder pain Active Problem 11/30/2018 [facility] Type 2 diabetes mellitus with hyperglycemia Active Problem 11/30/2018 [facility] Unstable gait Active Problem 11/30/2018 [facility] Vitamin D deficiency Active Problem 11/30/2018 [facility] CVA Active Problem 10/27/2018 [facility] Dehydration Active Problem 10/27/2018 [facility] Renal failure , acute on chronic Active Problem 10/27/2018 [facility] CHEST PAIN NOS Active [facility] Medications Medication Details Route Status Patient Instructions Ordering Provider Order Date Source Ergocalciferol 40337 UNT Oral Capsule 50,000 IntlUnit=1 cap, PO, qWeek, # 12 cap, 2 Refill(s), Pharmacy: [id number] Active 10/21/2018 [facility] citalopram 10 mg oral tablet 10 mg=1 tab, PO, Daily, # 30 tab, 1 Refill(s), Pharmacy: [facility] [id number] Active 10/20/2018 [facility] Alendronic acid 70 MG Oral Tablet 70 mg=1 tab, PO, Q7D, with 6 to 8 ounces plain water, at least 30 minutes before first food, beverage, or medication of the day, # 12 tab, 3 Refill(s) Active 10/20/2018 [facility] OneTouch Ultra Blue Blood Glucose Test Strip 1 ea, MISC, TID, Last HBA1c: Insulin Dep:Y High freq tests for: Poor control Certified Medically Necessary:, # 270 ea, Insulin dependent, Does not use insulin pump, Last DM eval date 10/20/18, 3 Refill(s), Pharmacy: [facility] [id number] Active 10/20/2018 [facility] atorvastatin 40 mg oral tablet 40 mg=1 tab, PO, Bedtime, # 90 tab, 1 Refill(s), Pharmacy: [facility] [id number] Active 10/20/2018 [facility] Hydrochlorothiazide 12.5 MG / Lisinopril 20 MG Oral Tablet 1 tab, PO, Daily, # 90 tab, 1 Refill(s), Pharmacy: [facility] [id number], stop losartan hctz and amlodipine. Active 10/20/2018 [facility] atorvastatin 40 mg oral tablet 40 mg=1 tab, PO, Bedtime, # 90 tab, 1 Refill(s), Pharmacy: [facility] [id number] Active 10/09/2018 [facility] Trazodone Hydrochloride 50 MG Oral Tablet 50 mg=1 tab, PO, Bedtime, after meals for insomnia, # 30 tab, 1 Refill(s), Pharmacy: [facility] [id number] Active 09/19/2018 [facility] gabapentin 300 MG Oral Capsule 300 mg=1 cap, PO, BID, # 60 cap, 1 Refill(s), Pharmacy: [facility] [id number] Active 09/19/2018 [facility] metoprolol tartrate 25 mg oral tablet 12.5 mg=0.5 tab, PO, BID, 0 Refill(s) Active 09/19/2018 [facility] Hydrochlorothiazide 12.5 MG / Losartan Potassium 50 MG Oral Tablet 1 tab, PO, Daily, # 90 tab, 0 Refill(s) Active 09/19/2018 [facility] amLODIPine 10 mg oral tablet 10 mg=1 tab, PO, Daily, # 90 tab, 1 Refill(s) Active 09/19/2018 [facility] Aspirin Enteric Coated 325 mg oral delayed release tablet 325 mg=1 tab, PO, Daily, 0 Refill(s) Active 09/19/2018 [facility] Glipizide 5 MG Oral Tablet 5 mg=1 tab, PO, Before Breakfast, # 30 tab, 0 Refill(s) Active 09/19/2018 [facility] pantoprazole 40 mg oral enteric coated tablet 40 mg=1 tab, PO, Daily, # 90 tab, 0 Refill(s) Active 09/19/2018 [facility] 3 ML insulin detemir 100 UNT/ML Prefilled Syringe [Levemir] 18 unit, SUB-Q, Bedtime, 0 Refill(s) Active 09/19/2018 [facility] atorvastatin 40 mg oral tablet 40 mg=1 tab, PO, Bedtime, # 90 tab, 1 Refill(s) Active 09/19/2018 [facility] Acetaminophen 325 MG / Hydrocodone Bitartrate 5 MG Oral Tablet 1 tab, PO, Q4H, for pain, # 12 tab, 0 Refill(s) Active 03/06/2014 [facility] ciprofloxacin 500 mg oral tablet 500 mg=1 tab, PO, Q12H, # 20 tab, 0 Refill(s) Active 03/06/2014 [facility] Zofran 4 mg, Route: IVP, Drug form: INJ, ONCE, Dosing Weight 78.636, kg, Priority: STAT, Start date: 03/05/14 22:16:00, Stop date: 03/05/14 22:16:00 Inactive 03/06/2014 [facility] Morphine 4 mg, Route: IVP, Drug form: INJ, ONCE, Dosing Weight 78.636, kg, Priority: STAT, Start date: 03/05/14 22:15:00, Stop date: 03/05/14 22:15:00 Inactive 03/06/2014 [facility] lisinopril 10 mg oral tablet 10 mg, 1 tab, PO, Daily, 30 tab, Substitution Allowed, TAB Active [place] 04/01/2013 [facility] metFORmin 500 mg oral tablet 500 mg, 1 tab, PO, BID, 30 tab, Substitution Allowed Active [facility] 04/01/2013 [facility] Insulin regular 8 unit, Route: SUB-Q, ONCE, Dosing Weight 79.091, kg, Start date: 04/01/13 12:23:00, Stop date: 04/01/13 12:23:00 Inactive [place] 04/01/2013 [facility] dexamethasone 10 mg, Route: IM, ONCE, Dosing Weight 79.091, kg, Priority: STAT, Start date: 04/01/13 11:36:00, Stop date: 04/01/13 11:36:00 Inactive [place] 04/01/2013 [facility] ketorolac 60 mg, Route: IM, Drug form: INJ, ONCE, Dosing Weight 79.091, kg, Priority: STAT, Start date: 04/01/13 11:35:00, Stop date: 04/01/13 11:35:00 Inactive [place] 04/01/2013 [facility] Bicillin L-A 1,200,000 unit, 2 mL, Route: IM, Drug form: INJ, ONCE, Dosing Weight 79.091, kg, Start date: 04/01/13 11:35:00, Stop date: 04/01/13 11:35:00(penicillin G benzathine 1.2 MilUnit/2 ml INJ) (Same as: Bi cillin L-A, Permapen) NOT For Daily Use Inactive Luis Carlos 04/01/2013 [facility] acetaminophen 500 mg, 1 tab, Route: PO, Drug form: TAB, Q6H, PRN Pain, Start date: 07/31/11 19:22:00, Duration: 30 day, Stop date: 08/30/11 19:21:00 PO No Longer Active [place] 08/01/2011 [facility] Metoprolol Succinate ER 25 mg oral tablet, extended release 25 mg, 1 tab, Route: PO, Drug form: ERTAB, Daily, Start date: 07/30/11 9:00:00, Duration: 30 day, Stop date: 08/28/11 9:00:00 PO No Longer Active [place] 07/30/2011 [facility] aspirin 325 mg tablet, enteric coated 325 mg, 1 tab, Route: PO, Drug form: ECTAB, Daily, Start date: 07/30/11 9:00:00, Duration: 30 day, Stop date: 08/28/11 9:00:00 PO No Longer Active [place] 07/30/2011 [facility] Saline Flush 0.9% 5 ml, Route: IVP, Drug Form: INJ, Q12H, Start date: 07/29/11 21:00:00, Duration: 30 day, Stop date: 08/28/11 9:00:00 IVP No Longer Active [place] 07/30/2011 [facility] simvastatin 20 mg, 1 tab, Route: PO, Drug form: TAB, Bedtime, Start date: 07/29/11 21:00:00, Duration: 30 day, Stop date: 08/27/11 21:00:00 PO No Longer Active [place] 07/30/2011 [facility] Dextrose 50% in Water IV 50 mL, Route: IVP, PRN, Blood Glucose Results, Start date: 07/29/11 17:36:00, Duration: 30 day, Stop date: 08/28/11 17:35:00 IVP No Longer Active [place] 07/29/2011 [facility] Dextrose 50% in Water IV 25 mL, Route: IVP, PRN, Blood Glucose Results, Start date: 07/29/11 17:35:00, Duration: 30 day, Stop date: 08/28/11 17:34:00 IVP No Longer Active [place] 07/29/2011 [facility] metFORmin 500 mg oral tablet 500 mg, 1 tab, Route: PO, Drug form: TAB, BID-Meals, Start date: 07/29/11 17:00:00, Duration: 30 day, Stop date: 08/28/11 8:00:00 PO No Longer Active [place] 07/29/2011 [facility] insulin aspart 4 unit, 0.04 mL, Route: SUB-Q, Drug form: SOLN, TID-Before Meals, PRN Blood Glucose Results, Start date: 07/29/11 16:33:00, Duration: 30 day, Stop date: 08/28/11 16:32:00 SUB-Q No Longer Active [place] 07/29/2011 [facility] Saline Flush 0.9% 5 ml, Route: IVP, Drug Form: INJ, PRN, PRN Line Flush, Start date: 07/29/11 16:33:00, Duration: 30 day, Stop date: 08/28/11 16:32:00 IVP No Longer Active [place] 07/29/2011 [facility] nitroglycerin SL Tab 0.4 mg, 1 tab, Route: SL, Drug form: TAB, Q5Min, PRN Chest Pain, Start date: 07/29/11 16:33:00, Duration: 3 doses or times, Stop date: Limited # of times SL No Longer Active [place] 07/29/2011 [facility] insulin aspart 2 unit, 0.02 mL, Route: SUB-Q, Drug form: SOLN, TID-Before Meals, PRN Blood Glucose Results, Start date: 07/29/11 16:32:00, Duration: 30 day, Stop date: 08/28/11 16:31:00 SUB-Q No Longer Active [place] 07/29/2011 [facility] glucagon 1 mg, Route: IM, Drug form: PDR/INJ, PRN, PRN Blood Glucose Results, Start date: 07/29/11 16:32:00, Duration: 30 day, Stop date: 08/28/11 16:31:00 IM No Longer Active [place] 07/29/2011 [facility] atropine 0.5 mg, 5 mL, Route: IVP, Drug form: INJ, PRN, PRN Bradycardia, Start date: 07/29/11 16:32:00, Duration: 30 day, Stop date: 08/28/11 16:31:00 IVP No Longer Active [place] 07/29/2011 [facility] Tylenol 650 mg, 2 tab, Route: PO, Drug form: TAB, Q6H, PRN Pain, Start date: 07/29/11 16:32:00, Duration: 30 day, Stop date: 08/28/11 16:31:00 PO No Longer Active [place] 07/29/2011 [facility] Dextrose 50% Syringe 12.5 gm, Route: IVP, Drug Form: INJ, PRN, PRN Blood Glucose Results, Start date: 07/29/11 16:32:00, Duration: 30 day, Stop date: 08/28/11 16:31:00 IVP No Longer Active [place] 07/29/2011 [facility] Dextrose 50% Syringe 25 gm, Route: IVP, Drug Form: INJ, PRN, PRN Blood Glucose Results, Start date: 07/29/11 16:31:00, Duration: 30 day, Stop date: 08/28/11 16:30:00 IVP No Longer Active [place] 07/29/2011 [facility] Metoprolol Succinate ER 25 mg oral tablet, extended release 25 mg, 1 tab, Route: PO, Drug form: ERTAB, Daily, Start date: 07/29/11 9:00:00, Duration: 30 day, Stop date: 08/27/11 9:00:00 PO No Longer Active [place] 07/29/2011 [facility] simvastatin 20 mg, 1 tab, Route: PO, Drug form: TAB, Bedtime, Start date: 07/28/11 21:00:00, Duration: 30 day, Stop date: 08/26/11 21:00:00 PO No Longer Active [place] 07/29/2011 [facility] metFORmin 500 mg oral tablet 500 mg, 1 tab, Route: PO, Drug form: TAB, BID-Meals, Start date: 07/28/11 17:00:00, Duration: 30 day, Stop date: 08/27/11 8:00:00 PO No Longer Active [place] 07/28/2011 [facility] Tylenol 650 mg, 2 tab, Route: PO, Drug form: TAB, Q6H, PRN Pain, Start date: 07/28/11 4:25:00, Duration: 30 day, Stop date: 08/27/11 4:24:00 PO No Longer Active [place] 07/28/2011 [facility] Saline Flush 0.9% 5 ml, Route: IVP, Drug Form: INJ, Q12H, Start date: 07/27/11 21:00:00, Duration: 30 day, Stop date: 08/26/11 9:00:00 IVP No Longer Active [place] 07/28/2011 [facility] atropine 0.5 mg, 5 mL, Route: IVP, Drug form: INJ, PRN, PRN Bradycardia, Start date: 07/27/11 19:19:00, Duration: 30 day, Stop date: 08/26/11 19:18:00 IVP No Longer Active [place] 07/28/2011 [facility] aspirin 325 mg tablet, enteric coated 325 mg, 1 tab, Route: PO, Drug form: ECTAB, Q24H, Start date: 07/27/11 19:00:00, Duration: 30 day, Stop date: 08/25/11 19:00:00 PO No Longer Active [place] 07/28/2011 [facility] Saline Flush 0.9% 5 ml, Route: IVP, Drug Form: INJ, PRN, PRN Line Flush, Start date: 07/27/11 18:25:00, Duration: 30 day, Stop date: 08/26/11 18:24:00 IVP No Longer Active [place] 07/28/2011 [facility] nitroglycerin SL Tab 0.4 mg, 1 tab, Route: SL, Drug form: TAB, Q5Min, PRN Chest Pain, Start date: 07/27/11 18:25:00, Duration: 3 doses or times, Stop date: Limited # of times SL No Longer Active [place] 07/28/2011 [facility] Dextrose 50% Syringe 12.5 gm, 25 mL, Route: IVP, Drug Form: INJ, PRN, PRN Blood Glucose Results, Start date: 07/27/11 18:24:00, Duration: 30 day, Stop date: 08/26/11 18:23:00 IVP No Longer Active [place] 07/28/2011 [facility] glucagon 1 mg, Route: IM, Drug form: PDR/INJ, PRN, PRN Blood Glucose Results, Start date: 07/27/11 18:24:00, Duration: 30 day, Stop date: 08/26/11 18:23:00 IM No Longer Active [place] 07/28/2011 [facility] insulin aspart 2 unit, 0.02 mL, Route: SUB-Q, Drug form: SOLN, TID-Before Meals, PRN Blood Glucose Results, Start date: 07/27/11 18:24:00, Duration: 30 day, Stop date: 08/26/11 18:23:00 SUB-Q No Longer Active [place] 07/28/2011 [facility] Tylenol 1,000 mg, Route: PO, Drug form: TAB, ONCE, PRN Pain, Priority: STAT, Start date: 07/27/11 17:44:00, Stop date: 08/26/11 17:43:00 PO No Longer Active [place] 07/27/2011 [facility] metFORmin 500 mg oral tablet 500 mg, 1 tab, PO, BID-Meals, Substitution Allowed PO Active [place] 07/27/2011 [facility] hydrochlorothiazide-lisinopril 12.5 mg-10 mg oral tablet 1 tab, PO, Daily, Substitution Allowed, Maintenance PO Active 07/27/2011 [facility] simvastatin 20 mg, PO, Bedtime, Substitution Allowed PO Active [place] 07/27/2011 [facility] Vitamin D 50,000 intl units oral capsule 50,000 IntlUnit, 1 cap, PO, QFri, Substitution Allowed PO Active 07/27/2011 [facility] ibuprofen 400 mg oral tablet 400 mg, 1 tab, PO, TID, PRN, as needed for headache, Substitution Allowed PO Active 07/27/2011 [facility] Saline Flush 0.9% 5 ml, Route: IVP, Drug Form: INJ, PRN, PRN Line Flush, Start date: 07/27/11 14:54:00, Duration: 24 hr, Stop date: 07/28/11 14:53:00 IVP No Longer Active [place] 07/27/2011 [facility] aspirin 325 mg tablet 325 mg, Route: PO, Drug form: TAB, ONCE, Priority: STAT, Start date: 07/27/11 14:54:00, Stop date: 07/27/11 14:54:00 PO No Longer Active [place] 07/27/2011 [facility] Amlodipine Besylate 5 Mg Tablet Daily Active [facility] Aspirin 325 Mg Tablet Daily Active [facility] Atorvastatin Calcium 10 Mg Tablet Twice A Day Active [facility] Lisinopril 10 Mg Tablet Daily Active [facility] Metoprolol Succinate 25 Mg Tab.er.24h Twice A Day Active [facility] Pantoprazole Sodium (Protonix) 40 Mg Tablet. Daily Active [facility] Allergies, Adverse Reactions, Alerts Substance Category Reaction Severity Reaction type Status Date Reported Comments Source Iodine VOMITING Severe Allergy to Substance Active 09/30/2018 [facility] Diphenhydramine RASH Severe Allergy to Substance Active 09/30/2018 [facility] Vancomycin RASH/TURNS RED Severe Allergy to Substance Active 09/30/2018 [facility] Tomato RASH/VOMITING Severe Allergy to Substance Active 09/30/2018 [facility] vancomycin Assertion rash Low Drug allergy Active [facility] iodine Assertion Drug allergy Active [facility] Immunizations No Data Provided for This Section Results Order Name Results Value Reference Range Date Interpretation Comments Source Capillary blood glucose measurement by glucometer (mass/volume) 105 70 - 120 10/02/2018 [facility] Urine color determination YELLOW YELLOW 10/02/2018 [facility] Urine clarity SL CLOUDY CLEAR 10/02/2018 [facility] Specific gravity of Urine by Test strip 1.020 1.010 - 1.025 10/02/2018 [facility] Urine pH measurement by automated test strip 6.5 5 - 7 10/02/2018 [facility] Urine leukocyte esterase detection by dipstick NEGATIVE NEGATIVE 10/02/2018 [facility] Urine nitrite detection NEGATIVE NEGATIVE 10/02/2018 [facility] Urine protein measurement by test strip (mass/volume) 3+ NEGATIVE 10/02/2018 [facility] Urine glucose detection 2+ NEGATIVE 10/02/2018 [facility] Urine ketones detection by automated test strip NEGATIVE NEGATIVE 10/02/2018 [facility] Urine urobilinogen measurement by test strip (mass/volume) 0.2 0.2 - 1 10/02/2018 [facility] Urine total bilirubin measurement (mass/volume) NEGATIVE NEGATIVE 10/02/2018 [facility] Urine erythrocytes detection TRACE NEGATIVE 10/02/2018 [facility] Automated urine sediment leukocyte count by microscopy (number/high power field) 0-5 0 - 5 10/02/2018 [facility] Erythrocytes detection in urine sediment by light microscopy 0-5 0 - 5 10/02/2018 [facility] Bacteria detection in urine sediment by light microscopy RARE NONE 10/02/2018 [facility] Epithelial cells detection in urine sediment by light microscopy RARE NONE 10/02/2018 [facility] Urine protein measurement (mass/volume) 1055.7 1 - 14 10/02/2018 [facility] Urine creatinine measurement (mass/volume) 40.02 47 - 110 10/02/2018 [facility] Random urine protein/creatinine ratio 26.00 10/02/2018 [facility] Blood leukocytes automated count (number/volume) 11.01 4.8 - 10.8 10/02/2018 [facility] Blood erythrocytes automated count (number/volume) 4.63 3.6 - 5.1 10/02/2018 [facility] Blood hemoglobin measurement (moles/volume) 12.2 12.0 - 16.0 10/02/2018 [facility] Automated blood hematocrit (volume fraction) 38.7 34.2 - 44.1 10/02/2018 [facility] Automated erythrocyte mean corpuscular volume 83.6 81 - 99 10/02/2018 [facility] Automated erythrocyte mean corpuscular hemoglobin (mass per erythrocyte) 26.3 28 - 32 10/02/2018 [facility] Automated erythrocyte mean corpuscular hemoglobin concentration measurement (mass/volume) 31.5 31 - 35 10/02/2018 [facility] RDW BldCo-Rto 14.8 11.7 - 14.4 10/02/2018 [facility] Automated blood platelet count (count/volume) 394 140 - 360 10/02/2018 [facility] Automated blood segmented neutrophil count as percentage of total leukocytes 51.9 38.7 - 80.0 10/02/2018 [facility] Automated blood lymphocyte count as percentage ot total leukocytes 37.2 18.0 - 39.1 10/02/2018 [facility] Automated blood monocyte count as percentage of total leukocytes 5.8 4.4 - 11.3 10/02/2018 [facility] Automated blood eosinophil count as percentage of total leukocytes 3.7 0.0 - 6.0 10/02/2018 [facility] Automated blood basophil count as percentage of total leukocytes 0.9 0.0 - 1.0 10/02/2018 [facility] IM GRANULOCYTES % 0.5 0.0 - 1.0 10/02/2018 [facility] Automated blood neutrophil count 5.7 2.1 - 6.9 10/02/2018 [facility] Blood lymphocytes count (number/volume) 4.1 1.0 - 3.2 10/02/2018 [facility] Blood monocytes automated count (number/volume) 0.6 0.2 - 0.8 10/02/2018 [facility] Automated blood eosinophil count 0.4 0.0 - 0.4 10/02/2018 [facility] Automated blood basophil count (count/volume) 0.1 0.0 - 0.1 10/02/2018 [facility] Absolute Immature Granulocyte (auto 0.06 0 - 0.1 10/02/2018 [facility] Serum or plasma sodium measurement (moles/volume) 138 136 - 145 10/02/2018 [facility] Serum or plasma potassium measurement (moles/volume) 4.8 3.5 - 5.1 10/02/2018 [facility] Serum or plasma chloride measurement (moles/volume) 116 98 - 107 10/02/2018 [facility] Serum or plasma carbon dioxide, total measurement (moles/volume) 18 22 - 29 10/02/2018 [facility] Serum or plasma anion gap 8.8 8 - 16 10/02/2018 [facility] Serum or plasma urea nitrogen measurement (mass/volume) 39 7 - 26 10/02/2018 [facility] Serum or plasma creatinine measurement (mass/volume) 1.74 0.57 - 1.11 10/02/2018 [facility] Serum or plasma urea nitrogen/creatinine mass ratio 22 6 - 25 10/02/2018 [facility] Estimated glomerular filtration rate (GFR) determination 29 60 10/02/2018 [facility] Glucose measurement 104 74 - 118 10/02/2018 [facility] Serum or plasma calcium measurement (mass/volume) 8.4 8.4 - 10.2 10/02/2018 [facility] Serum or plasma creatine kinase measurement (enzymatic activity/volume) 113 29 - 168 10/01/2018 [facility] Serum or plasma creatine kinase MB measurement (mass/volume) 1.30 0 - 5.0 10/01/2018 [facility] Troponin I measurement by highly sensitive enzyme immunoassay 0.021 0 - 0.300 10/01/2018 [facility] Serum or plasma total bilirubin measurement (mass/volume) 0.2 0.2 - 1.2 10/01/2018 [facility] Aspartate Amino Transf (AST/SGOT) 11 5 - 34 10/01/2018 [facility] Serum or plasma alanine aminotransferase measurement (enzymatic activity/volume) 6 0 - 55 10/01/2018 [facility] Serum or plasma protein measurement (mass/volume) 5.2 6.5 - 8.1 10/01/2018 [facility] Serum or plasma albumin measurement (mass/volume) 1.8 3.5 - 5.0 10/01/2018 [facility] Plasma globulin measurement (mass/volume) 3.4 2.3 - 3.5 10/01/2018 [facility] [facility] Serum or plasma albumin/globulin mass ratio 0.5 0.8 - 2.0 10/01/2018 [facility] Serum or plasma alkaline phosphatase measurement (enzymatic activity/volume) 76 40 - 150 10/01/2018 [facility] Prothrombin time (PT) in platelet poor plasma by coagulation assay 12.0 11.9 - 14.5 09/30/2018 [facility] INR in Platelet poor plasma by Coagulation assay 0.84 09/30/2018 [facility] Activated partial thromboplastin time (aPTT) in platelet poor plasma bycoagulation assay 29.7 23.8 - 35.5 09/30/2018 [facility] BNP Bld-mCnc 47.7 0 - 100 09/30/2018 [facility] Serum or plasma thyrotropin measurement by detection limit <=0.005 miu/l (units/volume) 3.276 0.350 - 4.940 09/30/2018 [facility] Serum or plasma magnesium measurement (mass/volume) 2.3 1.3 - 2.1 07/15/2018 [facility] Serum or plasma triglyceride measurement (mass/volume) 257 0 - 149 07/14/2018 [facility] Serum or plasma cholesterol measurement (mass/volume) 344 0 - 199 07/14/2018 [facility] Serum or plasma cholesterol in LDL measurement (mass/volume) 259 60 - 130 07/14/2018 [facility] Serum or plasma cholesterol in HDL measurement (mass/volume) 34 40 - 60 07/14/2018 [facility] Serum or plasma total cholesterol/cholesterol in HDL mass ratio 10.1 3.0 - 3.6 07/14/2018 [facility] Hemoglobin A1c Percent 8.8 4.0 - 7.0 07/13/2018 [facility] Free thyroxine index 1.9343 1.4 - 3.8 07/13/2018 [facility] Serum or plasma thyroxine (T4) measurement (mass/volume) 5.75 4.5 - 10.9 07/13/2018 [facility] Serum or plasma triiodothyronine resin uptake (T3RU) 33.64 22.5 - 37.0 07/13/2018 [facility] CHEM PANEL eGFR 99 03/06/2014 <sup>1</sup>Result Comment: The eGFR is calculated using the CKD-EPI formula. In most young, healthy individuals the eGFR will be >90 mL/min/1.73m2. The eGFR declines with age. An eGFR of 60-89 may be normal in some populations, particularly the elderly, for whom the CKD-EPI formula has not been extensively validated. Use of the eGFR is not recommended in the following populations:& lt;br/>
Individuals with unstable creatinine concentrations, including patients [...] should be multiplied by the estimated BMI. [facility] CHEM PANEL Bili Total 0.9 0.2 - 1.3 03/06/2014 [facility] CHEM PANEL AGAP 13.0 10.0 - 20.0 03/06/2014 [facility] CHEM PANEL B/C Ratio 18 6 - 25 03/06/2014 [facility] CHEM PANEL ALT 28 0 - 65 03/06/2014 [facility] CHEM PANEL AST 18 0 - 37 03/06/2014 [facility] CHEM PANEL Alk Phos 152 39 - 136 03/06/2014 [facility] CHEM PANEL Potassium Lvl 4.0 3.5 - 5.1 03/06/2014 [facility] CHEM PANEL Chloride Lvl 100 95 - 109 03/06/2014 [facility] CHEM PANEL Creatinine Lvl 0.6 0.5 - 1.4 03/06/2014 [facility] CHEM PANEL Sodium Lvl 134 135 - 145 03/06/2014 [facility] CHEM PANEL Glucose Lvl 306 70 - 99 03/06/2014 <sup>2</sup>Interpretive Data: Adult reference range values reflect the clinical guidelines
of the [place] [employer]. [facility] CHEM PANEL BUN 11 7 - 22 03/06/2014 [facility] CHEM PANEL Albumin Lvl 3.6 3.5 - 5.0 03/06/2014 [facility] CHEM PANEL Total Protein 8.0 6.4 - 8.4 03/06/2014 [facility] CHEM PANEL Calcium Lvl 9.1 8.5 - 10.5 03/06/2014 [facility] CHEM PANEL CO2 25 24 - 32 03/06/2014 [facility] CHEM PANEL A/G Ratio 0.8 0.7 - 1.6 03/06/2014 [facility] CHEM PANEL Globulin 4.4 2.0 - 4.0 03/06/2014 [facility] HEMATOLOGY Segs 60.9 45.0 - 75.0 03/06/2014 [facility] HEMATOLOGY Basophils 1.1 0.0 - 1.0 03/06/2014 [facility] HEMATOLOGY Eosinophils 1.2 0.0 - 4.0 03/06/2014 [facility] HEMATOLOGY Monocytes 4.4 2.0 - 12.0 03/06/2014 [facility] HEMATOLOGY Lymphocytes 32.4 20.0 - 40.0 03/06/2014 [facility] HEMATOLOGY Eosinophils # 0.1 0.0 - 0.5 03/06/2014 [facility] HEMATOLOGY Monocytes # 0.5 0.0 - 0.8 03/06/2014 [facility] HEMATOLOGY Lymphocytes # 3.5 1.0 - 5.5 03/06/2014 [facility] HEMATOLOGY Segs-Bands # 6.5 1.5 - 8.1 03/06/2014 [facility] HEMATOLOGY Basophils # 0.1 0.0 - 0.2 03/06/2014 [facility] HEMATOLOGY RDW 13.0 11.5 - 14.5 03/06/2014 [facility] HEMATOLOGY MCHC 33.4 32.0 - 36.0 03/06/2014 [facility] HEMATOLOGY MCH 28.3 27.0 - 31.0 03/06/2014 [facility] HEMATOLOGY MCV 84.7 80.0 - 98.0 03/06/2014 [facility] HEMATOLOGY MPV 8.7 7.4 - 10.4 03/06/2014 [facility] HEMATOLOGY Platelet 366 133 - 450 03/06/2014 [facility] HEMATOLOGY WBC 10.7 3.7 - 10.4 03/06/2014 [facility] HEMATOLOGY Hct 49.5 36.0 - 48.0 03/06/2014 [facility] HEMATOLOGY Hgb 16.5 12.0 - 16.0 03/06/2014 [facility] HEMATOLOGY RBC 5.84 4.20 - 5.40 03/06/2014 [facility] URINE AND STOOL UA Urobilinogen <=1.0 mg/dL 0.1 - 1.0 03/05/2014 [facility] URINE AND STOOL UA Blood Small *ABN* (03/05/14 12:30 AM) Negative 03/05/2014 [facility] URINE AND STOOL UA Nitrite Negative (03/05/14 12:30 AM) Negative 03/05/2014 [facility] URINE AND STOOL UA Turbidity Marked *ABN* (03/05/14 12:30 AM) Clear 03/05/2014 [facility] URINE AND STOOL UA Spec Grav 1.032 <=1.030 03/05/2014 [facility] URINE AND STOOL UA Color Yellow *NA* (03/05/14 12:30 AM) Yellow 03/05/2014 [facility] URINE AND STOOL UA Sq Epi Many /LPF Few /LPF 03/05/2014 [facility] URINE AND STOOL UA WBC 128 0 - 5 03/05/2014 [facility] URINE AND STOOL UA RBC 15 0 - 2 03/05/2014 [facility] URINE AND STOOL UA Leuk Est Large *ABN* (03/05/14 12:30 AM) Negative 03/05/2014 [facility] URINE AND STOOL UA Bili Negative *NA* (03/05/14 12:30 AM) Negative 03/05/2014 [facility] URINE AND STOOL UA pH 5.0 5.0 - 8.0 03/05/2014 [facility] URINE AND STOOL UA Protein 30 mg/dL Negative mg/dL 03/05/2014 [facility] URINE AND STOOL UA Glucose 500 mg/dL Negative mg/dL 03/05/2014 [facility] URINE AND STOOL UA Ketones 20 mg/dL Negative mg/dL 03/05/2014 [facility] BEDSIDE GLUCOSE TESTING Glucose POC 340 70 - 99 04/01/2013 [facility] <sup>1</sup>Interpretive Data: Upper Reportable Limit: 200 mg/dL. [facility] BEDSIDE GLUCOSE TESTING Glucose POC 356 70 - 99 04/01/2013 [facility] <sup>2</sup>Interpretive Data: Upper Reportable Limit: 200 mg/dL. [facility] BEDSIDE GLUCOSE TESTING Gluc POC Lifscn 162 65 - 110 08/01/2011 [facility] <sup>1</sup>Interpretive Data: Upper Reportable Limit: 200 mg/dL. [facility] BEDSIDE GLUCOSE TESTING Gluc POC Lifscn 226 65 - 110 08/01/2011 [facility] <sup>2</sup>Interpretive Data: Upper Reportable Limit: 200 mg/dL. [facility] BEDSIDE GLUCOSE TESTING Gluc POC Lifscn 144 65 - 110 07/31/2011 [facility] <sup>3</sup>Interpretive Data: Upper Reportable Limit: 200 mg/dL. [facility] BEDSIDE GLUCOSE TESTING Comment1 Notify RN/ 07/31/2011 NA [facility] BEDSIDE GLUCOSE TESTING Comment1 Notify RN/ 07/31/2011 NA [facility] BEDSIDE GLUCOSE TESTING Comment1 Notify RN/ 07/30/2011 NA [facility] CHEMISTRY Troponin-I <0.02 0.00 - 0.40 07/28/2011 Normal [facility] CHEMISTRY Total CK 35 12 - 191 07/28/2011 Normal [facility] CHEMISTRY Total CK 35 12 - 191 07/28/2011 Normal [facility] CHEMISTRY Troponin-I <0.02 0.00 - 0.40 07/28/2011 Normal [facility] CHEMISTRY CK MB Index <1.1 0.0 - 2.5 07/27/2011 Normal [facility] CHEMISTRY Total CK 45 12 - 191 07/27/2011 Normal [facility] CHEMISTRY CK MB <0.5 0.5 - 3.6 07/27/2011 Normal [facility] CHEMISTRY Troponin-I <0.02 0.00 - 0.40 07/27/2011 Normal [facility] CHEMISTRY Chloride Lvl 103 95 - 109 07/27/2011 Normal [facility] CHEMISTRY CO2 21 24 - 32 07/27/2011 LOW [facility] CHEMISTRY Sodium Lvl 135 135 - 145 07/27/2011 Normal [facility] CHEMISTRY Potassium Lvl 3.9 3.5 - 5.1 07/27/2011 Normal [facility] CHEMISTRY Creatinine Lvl 0.8 0.5 - 1.4 07/27/2011 Normal [facility] CHEMISTRY Glucose Lvl 352 07/27/2011 NA <sup>4</sup>Interpretive Data: Reference Ranges : 0 - 7 days : 41 - 90 mg/dL 7 days - 150 yrs : 70 - 99 mg/dL (fasting), based on the clinical recommendations of the [place] [employer]. [facility] CHEMISTRY BUN 23 7 - 22 07/27/2011 HI [facility] CHEMISTRY Bili Total 0.4 0.2 - 1.3 07/27/2011 Normal [facility] CHEMISTRY Alk Phos 99 39 - 136 07/27/2011 Normal [facility] CHEMISTRY AST 6 0 - 37 07/27/2011 Normal [facility] CHEMISTRY ALT 22 0 - 65 07/27/2011 Normal [facility] CHEMISTRY Total Protein 8.0 6.4 - 8.4 07/27/2011 Normal [facility] CHEMISTRY Albumin Lvl 3.8 3.5 - 5.0 07/27/2011 Normal [facility] CHEMISTRY Calcium Lvl 8.9 8.5 - 10.5 07/27/2011 Normal [facility] CHEMISTRY A/G Ratio 0.9 0.7 - 1.6 07/27/2011 Normal [facility] CHEMISTRY B/C Ratio 29 6 - 25 07/27/2011 [facility] CHEMISTRY Globulin 4.2 2.0 - 4.0 07/27/2011 [facility] CHEMISTRY AGAP 14.9 10.0 - 20.0 07/27/2011 Normal [facility] HEMATOLOGY Segs 73.9 45.0 - 75.0 07/27/2011 Normal [facility] HEMATOLOGY Eosinophils 0.6 0.0 - 4.0 07/27/2011 Normal [facility] HEMATOLOGY Lymphocytes 20.8 20.0 - 40.0 07/27/2011 Normal [facility] HEMATOLOGY Segs-Bands # 7.5 1.5 - 8.1 07/27/2011 Normal [facility] HEMATOLOGY Basophils 0.3 0.0 - 1.0 07/27/2011 Normal [facility] HEMATOLOGY Monocytes 4.4 2.0 - 12.0 07/27/2011 Normal [facility] HEMATOLOGY Lymphocytes # 2.1 1.0 - 5.5 07/27/2011 Normal [facility] HEMATOLOGY Basophils # 0.0 0.0 - 0.2 07/27/2011 Normal [facility] HEMATOLOGY Monocytes # 0.4 0.0 - 0.8 07/27/2011 Normal [facility] HEMATOLOGY Eosinophils # 0.1 0.0 - 0.5 07/27/2011 Normal [facility] HEMATOLOGY MPV 7.9 7.4 - 10.4 07/27/2011 Normal [facility] HEMATOLOGY MCHC 35.4 32.0 - 36.0 07/27/2011 Normal [facility] HEMATOLOGY MCH 29.2 27.0 - 31.0 07/27/2011 Normal [facility] HEMATOLOGY RDW 13.2 11.5 - 14.5 07/27/2011 Normal [facility] HEMATOLOGY Platelet 360 133 - 450 07/27/2011 Normal [facility] HEMATOLOGY RBC 4.86 4.20 - 5.40 07/27/2011 Normal [facility] Hct 40.0 36.0 - 48.0 07/27/2011 Normal [facility] HEMATOLOGY MCV 82.4 81.0 - 99.0 07/27/2011 Normal [facility] HEMATOLOGY Hgb 14.2 12.0 - 16.0 07/27/2011 Normal [facility] WBC 10.2 3.7 - 10.4 07/27/2011 Normal [facility] INR 0.95 0.85 - 1.17 07/27/2011 Normal <sup>5</sup>Interpretive Data: RECOMMENDED RANGES FOR PROTIME INR: 2.0-3.0 for most medical and surgical thromboembolic states. 2.5-3.5 for artificial heart valves and recurrent embolism. INR SHOULD BE USED ONLY FOR PATIENTS ON STABLE ANTICOAGULANT THERAPY. [facility] HEMATOLOGY PT 12.7 12.0 - 14.7 07/27/2011 Normal [facility] PTT 25.2 22.9 - 35.8 07/27/2011 Normal <sup>6</sup>Interpretive Data: Heparin Therapeutic Range: 57 - 92 Seconds [facility] Pathology Reports No Data Provided for This Section Diagnostic Reports Report Value Date Source Breast Mammo Scrn KIMBERLY incl CAD MA BILATERAL DIGITAL SCREENING MAMMOGRAM WITH CAD: 10/15/2018 CLINICAL: /Routine. Current study was evaluated with a Computer Aided Detection (CAD) system. COMPARISON:Comparison is made to exam dated: 10/02/2011 mammogram - [facility]. TECHNIQUE: Mammographic views were obtained using digital acquisition. Favora Version 1.3 was utilized for computer aided [...] is recommended.(10/16/2019) This exam was interpreted at [id number] for [facility]. Fran johnson/penrad:10/15/2018 15:19:21 [employer](s): Kimberly Davis, [facility] letter sent: BI-RADS 1/2 Mammogram BI-RADS: 2 Benign 10/15/2018 [facility] Bone Density Scan Study: Bone Density Scan Clinical Indication: Osteoporosis screening; Images of the axial lumbar spine and left hip have been performed using [employer] Discovery SL scanner. COMPARISON: None FINDINGS: The [...] standard deviations below peak bone mass. SL: [id number] 10/15/2018 [facility] Shoulder series DX Left shoulder 3 views DX, 09/22/2018 12:37 CDT HISTORY: - left shoulder pain COMPARISON: None FINDINGS: No evidence for acute fracture. Humeral head is intact and located. Acromioclavicular joint is also intact mild degenerative changes. Soft tissues unremarkable. IMPRESSION: No acute osseous abnormality SL: [id number] 09/22/2018 [facility] Abdomen/Pelvis wo IV contrast CT CT SCAN [...] Postoperative cholecystectomy, appendectomy and hysterectomy. SL: 03/05/2014 [facility] Brain wo contrast CT CT head without [...] Dedicated MRI brain if indicated. SL: 03/05/2014 [facility] Knee AP and lateral Exam: Right knee x-ray, 2 views Reason for exam: Pain status post fall Comparison exam: None Discussion: No fractures or dislocations are seen within the right knee. The joint spaces are preserved. No suspicious intraosseous lesions. No radiopaque foreign bodies. Impression: 1. No acute bony abnormalities seen within the right kidney. 07/24/2013 [facility] Ribs bilateral Exam: Bilateral rib x-ray series Reason for Exam: Pain status post fall Comparison Exam: None Discussion: No acute bony abnormalities are seen within the right or left rib cage. No evidence seen for pneumothorax or pulmonary contusion. No suspicious osteoblastic or osteolytic lesions. Impression: 1. No acute bony abnormalities are seen within the right or left rib cage. 07/24/2013 [facility] Garcia Consultation Notes No Data Provided for This Section Discharge Summaries No Data Provided for This Section History and Physicals No Data Provided for This Section Vital Signs Vital Sign Value Date Comments Source BMI Calculated 30.86 10/20/2018 [facility] Weight 74.091 10/20/2018 [facility] Height 154.94 cm 10/20/2018 [facility] Temperature Oral (F) 97.9 F 10/20/2018 [facility] Respitory Rate 16 10/20/2018 [facility] Heart Rate 86 10/20/2018 [facility] Systolic (mm Hg) 154 10/20/2018 [facility] Diastolic (mm Hg) 78 10/20/2018 [...] 03/06/2014 [facility] Systolic (mm Hg) 134 03/06/2014 [facility] Heart Rate 75 03/06/2014 [facility] Respitory Rate 16 03/06/2014 [facility] Height 160.02 cm 03/05/2014 [facility] BMI Calculated 30.71 03/05/2014 [facility] Weight 78.636 03/05/2014 [facility] Temperature Oral (F) 98.3 F 03/05/2014 [facility] Heart Rate 74 03/05/2014 [facility] Systolic (mm Hg) 143 03/05/2014 [facility] Respitory Rate 16 03/05/2014 [facility] Diastolic (mm Hg) 81 03/05/2014 [facility] Heart Rate 86 04/01/2013 [facility] Systolic (mm Hg) 136 04/01/2013 [facility] Diastolic (mm Hg) 84 04/01/2013 [facility] Respitory Rate 16 04/01/2013 [facility] Respitory Rate 16 04/01/2013 [facility] Diastolic (mm Hg) 68 04/01/2013 [facility] Heart Rate 90 04/01/2013 [facility] Systolic (mm Hg) 142 04/01/2013 [facility] Weight 79.091 04/01/2013 [facility] Height 160.02 cm 04/01/2013 [facility] Respitory Rate 18 04/01/2013 [facility] Heart Rate 90 04/01/2013 [facility] Systolic (mm Hg) 132 04/01/2013 [facility] Diastolic (mm Hg) 85 04/01/2013 [facility] Temperature Oral (F) 98.2 F 04/01/2013 [facility] Heart Rate 69 08/01/2011 [facility] Temperature Oral (F) 98.2 F 08/01/2011 [facility] Respitory Rate 18 08/01/2011 [facility] Systolic (mm Hg) 122 08/01/2011 [facility] Diastolic (mm Hg) 69 08/01/2011 [facility] Diastolic (mm Hg) 71 08/01/2011 [facility] Heart Rate 71 08/01/2011 [facility] Systolic (mm Hg) 109 08/01/2011 [facility] Respitory Rate 20 08/01/2011 [facility] Temperature Oral (F) 97.4 F 08/01/2011 [facility] Diastolic (mm Hg) 56 08/01/2011 [facility] Respitory Rate 18 08/01/2011 [facility] Systolic (mm Hg) 92 08/01/2011 [facility] Heart Rate 70 08/01/2011 [facility] Temperature Oral (F) 98.2 F 08/01/2011 [facility] Weight 81.364 07/28/2011 [facility] Height 157.48 cm 07/28/2011 [facility] Weight 81.364 07/27/2011 [facility] Height 157.48 cm 07/27/2011 [facility] Encounters Location Location Details Encounter Type Encounter Number Reason For Visit Attending Provider ADM Date DC Date Status Source [facility] Inpatient [id number] CHEST PAIN CASTILLO NOVAR 07/27/2011 08/01/2011 Active [facility] Emergency [id number] ZACHARY MEZAE 04/01/2013 04/01/2013 Discharged [facility] OD [id number] 719.4 - PAIN IN JOINT MILLIE ELOY 07/24/2013 07/24/[address] [facility] [id number] Susi Stanford 03/05/2014 03/06/2014 [facility] Discharged Inpatient [id number] ZAINA GORDON MD 07/12/2018 07/18/2018 [facility] Departed Emergency Room [id number] CALEB MELENDEZ MD 07/29/2018 07/29/2018 [facility] Outpatient [id number] Ivet Walker 09/19/2018 [facility] Outpatient [id number] Ivet Walker 09/19/2018 09/20/2018 [facility] Outpatient [id number] Ivet Disla 09/22/2018 09/23/2018 [facility] Discharged Inpatient (obs) [id number] ZAINA GORDON MD 09/30/2018 10/02/2018 [facility] Outpatient [id number] Dasha Sushant 10/09/2018 [facility] Outpatient [id number] Ivet Walker 10/09/2018 10/10/2018 [facility] Outpatient [id number] Ivet Walker 10/15/2018 10/16/2018 [facility] Outpatient [id number] Ivet Disla 10/20/2018 [facility] Outpatient [id number] Ivet Disla 10/20/2018 [facility] Outpatient [id number] Ivet Walker 10/20/2018 10/21/2018 [facility] Ambulatory Pre-Reg [id number] Ivet Walker 10/20/2018 10/20/2018 [facility] Departed Emergency Room [id number] JANIE RIVER MD 10/27/2018 10/27/2018 [facility] Outpatient [id number] Shelton Jackson 11/28/2018 [facility] Ambulatory Pre-Reg [id number] Bravoao Renetta 11/28/2018 11/28/2018 [facility] Outpatient [id number] Ivet Walker 01/19/2019 Active [facility] Procedures Procedure Code Date Perfomer Comments Source Bone density scan<sup>1</sup> [id number] 10/15/2018 1. Osteoporosis of the left femoral neck. 2. Osteopenia of the total left hip. 3. Osteopenia of the lumbar spine. [facility] Mammogram<sup>2</sup> [id number] 10/15/2018 There is no mammographic evidence of malignancy. A 1 year screening mammogram is recommended.(10/16/2019) [facility] Bone density scan<sup>1</sup> [id number] 10/15/2018 1. Osteoporosis of the left femoral neck. 2. Osteopenia of the total left hip. 3. Osteopenia of the lumbar spine. [facility] Mammogram<sup>2</sup> [id number] 10/15/2018 There is no mammographic evidence of malignancy. A 1 year screening mammogram is recommended.(10/16/2019) [facility] Diabetic Retinopathy [facility] 7 field stereoscopic fundus photography<sup>3, 4</sup> [id number] 10/08/[address] Ronak Lott is retinal specialist. [facility] Diabetic Retinopathy [facility] 7 field stereoscopic fundus photography<sup>3, 4</sup> [id number] 10/08/[address] Ronak Lott is retinal specialist. [facility] Retinopathy [facility] 7 field stereoscopic fundus photography<sup>1, 2</sup> [id number] 10/08/[address] Ronak Lott is retinal specialist. [facility] Magnetic resonance imaging of cervical spine without contrast [id number] 10/01/2018 [facility] Ultrasound, renal [id number] 10/01/2018 [facility] Magnetic resonance imaging of brain without contrast [id number] 10/01/2018 [facility] Computed tomography of brain without radiopaque contrast [id number] 09/30/2018 [facility] X-ray of chest, single view [id number] 09/30/2018 [facility] Magnetic resonance angiography of head without contrast [id number] 07/14/2018 [facility] Magnetic resonance angiography of neck without contrast [id number] 07/14/2018 [facility] Magnetic resonance imaging of brain without contrast [id number] 07/14/2018 [facility] Computed tomography of brain without radiopaque contrast [id number] 07/13/2018 [facility] INTRODUCE OTH THROMBOLYTIC IN PERIPH VEIN, PERC [id number] 07/12/2018 [facility] Computed tomography of brain without radiopaque contrast [id number] 07/12/2018 [facility] Colonoscopy<sup>1</sup> [id number] 06/24/2014 Per patient it was ok. [facility] Colonoscopy<sup>5</sup> [id number] 06/24/2014 Per patient it was ok. [facility] Colonoscopy<sup>5</sup> [id number] 06/24/2014 Per patient it was ok. [facility] Colonoscopy<sup>1</sup> [id number] 06/24/2014 Per patient it was ok. [facility] Colonoscopy<sup>3</sup> [id number] 06/24/2014 Per patient it was ok. [facility] Emergency department visit for the evaluation and management of a patient, which requires these 3 sullivan components: A detailed history; A detailed examination; and Medical decision making of moderate complexity. Counseling [place] [id number] 04/01/2013 [facility] Therapeutic, prophylactic, or diagnostic injection (specify substance or drug); subcutaneous or intramuscular [id number] 04/01/2013 [facility] Hysterectomy<sup>2</sup> [id number] 06/24/1979 Due to fibroids [facility] Hysterectomy<sup>6</sup> [id number] 06/24/1979 Due to fibroids [facility] Hysterectomy<sup>6</sup> [id number] 06/24/1979 Due to fibroids [facility] Hysterectomy<sup>2</sup> [id number] 06/24/1979 Due to fibroids [facility] Hysterectomy<sup>4</sup> [id number] 06/24/1979 Due to fibroids [facility] Appendectomy [id number] [facility] Cholecystectomy [id number] [facility] Tubal ligation [id number] [facility] Appendectomy [id number] [facility] Cholecystectomy [id number] [facility] Tubal ligation [id number] [facility] Appendectomy [id number] [facility] Cholecystectomy [id number] [facility] Tubal ligation [id number] [facility] Assessment and Plan No Data Provided for This Section Plan of Care Plan of Care Date Source Discharge Date 10/27/18 6:01pm Disposition HOME, SELF-CARE Condition at Discharge Stable Instructions/Education Provided Hypertension Forms Provided Work/School Excuse Prescriptions See Medication Section Referrals IVET DISLA M.D. Order Date: Call for an appointment Address: [address] [place] [address] [place] [address] [id number] Additional Instructions/Education 1. Please double your HCTZ/lisinopril until your PCP 10/27/2018 [facility] Discharge Date 10/02/18 5:49pm Disposition HOME, SELF-CARE Instructions/Education Provided Dehydration - Adult Diabetic Nephropathy Prescriptions See Medication Section Additional Instructions/Education Follow up with PCP in 5-7 days. Follow up with Dr Michele Pineda in 1-2 weeks. [phone] Avoid nephrotoxic meds, including NSAIDs. Stay hydrated, drink plenty of water. Activity as tolerated. 10/02/2018 [facility] Social History Social History Date Source Smoking Status Start Date Stop Date Former smoker 10/27/2018 [facility] Social History TypeResponse Alcohol Past Smoking Status Former smoker; Type: Cigarettes; Exposure to Tobacco Smoke None; Cigarette Smoking Last 365 Days No; Reg Smoking Cessation Counseling No entered on: 10/09/18 09/19/2018 [facility] Social History TypeResponse Alcohol Past Smoking Status Former smoker; Type: Cigarettes; Exposure to Tobacco Smoke None; Cigarette Smoking Last 365 Days No; Reg Smoking Cessation Counseling No entered on: 10/20/18 09/19/2018 [facility] Family History No Data Provided for This Section Advance Directives Order Name Results Value Date Source Advance Directives Advance Directives Directive Response Recorded Date/Time Does the patient have an advance directive? No 10/01/18 10:58am If yes, is advance directive on file with [facility]? No 10/01/18 10:58am If not on file with [facility] will patient provide a copy? Yes 10/01/18 10:58am Do you have a Directive to Physician? No 10/27/18 5:02pm Do you have a Medical Power of Mechanical Facilities Technician? No 10/27/18 5:02pm Do you have an out of hospital Do Not Resuscitate Order? No 10/27/18 5:02pm Do you have any special needs we should be aware of? No 10/27/18 5:02pm Do you have a support person here with you today? Yes 10/27/18 5:02pm Did patient receive Notice of Privacy Practices? Yes 10/27/18 5:02pm Did patient receive patient rights and responsibilities? Yes 10/27/18 5:02pm 10/27/2018 [facility] Advance Directives Advance Directives Directive Response Recorded Date/Time Does the patient have an advance directive? No 10/01/18 10:58am If yes, is advance directive on file with [facility]? No 10/01/18 10:58am If not on file with [facility] will patient provide a copy? Yes 10/01/18 10:58am Do you have a Directive to Physician? No 09/30/18 1:01pm Do you have a Medical Power of Mechanical Facilities Technician? No 09/30/18 1:01pm Do you have an out of hospital Do Not Resuscitate Order? No 09/30/18 1:01pm Do you have any special needs we should be aware of? No 09/30/18 1:01pm Do you have a support person here with you today? Yes 09/30/18 1:01pm Did patient receive Notice of Privacy Practices? Yes 09/30/18 1:01pm Did patient receive patient rights and responsibilities? Yes 09/30/18 1:01pm 10/02/2018 [facility] Functional Status No Data Provided for This Section
--- NOTE | 2019-01-01 12:59 | NUR ---
DR. LAI IN TRIAGE EVALUATING PATIENT
--- OUTSIDE RECORDS SUMMARY | 2019-01-01 13:00 | XMS REPORT | Summary of Care ---
Author Author [facility] Organization [facility] Address Unknown Phone Unavailable Encounter [facility] Sophia(FIN) [id number] Date(s): 11/28/18 - 11/28/18 [facility] [address] [place] [address]- Attending Physician: Shelton Jackson MD Vital Signs No data available for [...]
--- NOTE | 2019-01-01 13:36 | Diagnostic Imaging Report ---
EXAMINATION: Head CT HISTORY: Left upper extremity numbness for the last 90 minutes COMPARISON: Brain MRI 10/01/2018 TECHNIQUE: Multidetector axial images were obtained without contrast from the foramen magnum to the vertex . The images were reconstructed using brain and bone algorithms. Thin section brain images were reformatted into coronal and sagittal planes. Image quality: Motion/streaking artifact limits the evaluation of the skull base and posterior cranial fossa. Dose modulation, iterative reconstruction, and/or weight based adjustment of the mA/kV was utilized to reduce the radiation dose to as low as reasonably achievable. FINDINGS: Parenchyma: 1. Scattered white matter hypodensities, again most likely chronic microvascular ischemic changes. 2. Chronic lacunar infarcts in the right frontal myles radiata, right striatocapsular, right putamen, and bilateral thalami. 3. No mass or hemorrhage. No CT evidence of acute territorial cortical vascular insult. Extra-axial spaces:No abnormal density. No extra-axial fluid collections Brain volume: Normal for age. Ventricles: No hydrocephalus or displacement. Arteries: No density suggestive of thrombus. Dural sinuses: No abnormal density. Extra-axial spaces: No abnormal density. Foramen magnum: No mass, Chiari malformation, or basilar invagination. Sella: No obvious mass. Paranasal/mastoid sinuses: Imaged portions unremarkable. Skull/Scalp: No lytic or blastic lesions. No fractures. IMPRESSION: 1. No acute intracranial hemorrhage or cortical infarcts, if clinical concern remains considered brain MRI for further evaluation. 2. Persistent moderate chronic microvascular ischemic changes and small chronic lacunar infarcts as described. Signed by: Dr. Cheyanne Lorenz M.D. on 01/01/2019 1:32 PM
--- NOTE | 2019-01-01 14:28 | Diagnostic Imaging Report ---
EXAMINATION: CHEST SINGLE (PORTABLE) INDICATION: Weakness COMPARISON: None FINDINGS: TUBES and LINES: EKG leads overlie the chest. LUNGS: The lung volumes are normal. No focal consolidation or pulmonary edema. PLEURA: No pleural effusion or pneumothorax. HEART AND MEDIASTINUM: The cardiomediastinal silhouette is normal in size and contour. BONES AND SOFT TISSUES: No acute fracture or dislocation. UPPER ABDOMEN: No free air under the diaphragm. IMPRESSION: No focal pneumonia or pulmonary edema. Signed by: Jasmeet Negrete MD on 01/01/2019 2:24 PM
[2019-01-01 14:32] LABS: BASOPHILS # (AUTO) 0.1 (0.0-0.1); BASOPHILS % 0.8 % (0.0-1.0); EOSINOPHILS # (AUTO) 0.3 (0.0-0.4); EOSINOPHILS % 2.7 % (0.0-6.0); HEMATOCRIT 36.6 % (34.2-44.1); HEMOGLOBIN 12.2 g/dL (12.0-16.0); LYMPHOCYTES # (AUTO) 2.3 (1.0-3.2); LYMPHOCYTES % 22.1 % (18.0-39.1); MEAN CORPUSCULAR HGB CONC 33.3 g/dL (31-35); MEAN CORPUSCULAR VOLUME 83.9 fL (81-99); MONOCYTES # (AUTO) 0.5 (0.2-0.8); MONOCYTES % 4.4 % (4.4-11.3); NEUTROPHILS # (AUTO) 7.2 (2.1-6.9); NEUTROPHILS % 68.8 % (38.7-80.0); PLATELET COUNT 426 x10e3/uL (140-360); RED BLOOD COUNT 4.36 x10e6/uL (3.6-5.1); RED CELL DISTRIBUTION WIDTH 13.8 % (11.7-14.4)
[2019-01-01 14:40] LABS: INR 0.91; PROTHROMBIN TIME 12.7 seconds (11.9-14.5)
[2019-01-01 14:41] LABS: PARTIAL THROMBOPLASTIN TIME 30.3 seconds (23.8-35.5)
[2019-01-01 14:50] LABS: ALBUMIN 2.1 g/dL (3.5-5.0); ALBUMIN/GLOBULIN RATIO 0.6 (0.8-2.0); ALKALINE PHOSPHATASE 87 IU/L (40-150); ANION GAP 13.7 mmol/L (8-16); BLOOD UREA NITROGEN 43 mg/dL (7-26); BUN/CREATININE RATIO 19 (6-25); CALCIUM 8.4 mg/dL (8.4-10.2); CARBON DIOXIDE 18 mmol/L (22-29); CHLORIDE 111 mmol/L (98-107); CREATINE KINASE 56 IU/L (29-168); CREATININE, SERUM 2.26 mg/dL (0.57-1.11); EST GLOMERULAR FILTRATION RATE 22 ML/MIN (60-); GLUCOSE 115 mg/dL (74-118); POTASSIUM 3.7 mmol/L (3.5-5.1); SODIUM 139 mmol/L (136-145)
[2019-01-01 14:59] LABS: ALANINE AMINOTRANSFERASE < 6 IU/L (0-55)
[2019-01-01 15:37] LABS: BILIRUBIN,URINE NEGATIVE (NEGATIVE); CLARITY,URINE CLEAR (CLEAR); COLOR,URINE YELLOW (YELLOW); KETONES,URINE NEGATIVE (NEGATIVE); LEUKOCYTE ESTERASE ,URINE NEGATIVE (NEGATIVE); NITRITE,URINE NEGATIVE (NEGATIVE); URINE UROBILINOGEN 0.2 mg/dL (0.2 - 1)
[2019-01-01 15:38] LABS: PROTEIN,URINE DIPSTICK 2+ (NEGATIVE)
[2019-01-01 15:50] LABS: BACTERIA,URINE MODERATE /HPF; EPITHELIAL CELLS,URINE MODERATE /LPF; WBC,URINE (MAN) 0-5 /HPF (0-5)
[2019-01-01] MEDS ORDERED: ASPIRIN 325 MG TAB EC PO ONE (16:57)
--- OUTSIDE RECORDS SUMMARY | 2019-01-01 17:31 | XMS REPORT | Continuity of Care Document ---
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 Role Phone [employer] Unavailable Unavailable Problems Problem Status Onset Date Classification Date Reported Comments Source MAMMO --- BONE DENSITY Active 10/06/2018 [facility] M25.512 Active 09/22/2018 [facility] Discharge Diagnosis: Abdominal pain 03/06/2014 03/08/2014 [facility] Discharge Diagnosis: Acute lower urinary tract infection 03/06/2014 03/08/2014 [facility] ABD PAIN Active 03/05/2014 [facility] 719.4 - PAIN IN JOINT Active 07/24/2013 [facility] SORE THROAT Active 04/01/2013 [facility] CHEST PAIN Active 07/27/2011 [facility] HTN - Hypertension Active 01/22/2001 Problem 08/03/2011 [facility] Chest pain Active Problem 04/04/2013 [facility] DM - Diabetes mellitus Active Problem 04/04/2013 [facility] HTN - Hypertension Active Problem 04/04/2013 [facility] Hyperlipidemia Active Problem 04/04/2013 [facility] Chest pain Active Problem 03/08/2014 [facility] DM - Diabetes mellitus Active Problem 03/08/2014 [facility] HTN - Hypertension Active Problem 03/08/2014 [facility] Hyperlipidemia Active Problem 03/08/2014 [facility] CVD (Confirmed) Active Problem 11/30/2018 [facility] CKD , stage IV(Confirmed) Active Problem 11/30/2018 [facility] Body mass index 29.0-29.9, adult(Confirmed) Active Problem 11/30/2018 [facility] Hypertension Active Problem 11/30/2018 [facility] Left-sided weakness Active Problem 11/30/2018 [facility] Mixed hyperlipidemia Active Problem 11/30/2018 [facility] Osteoporosis Active Problem 11/30/2018 [facility] Left shoulder pain Active Problem 11/30/2018 [facility] Type 2 diabetes mellitus with hyperglycemia Active Problem 11/30/2018 [facility] Unstable gait Active Problem 11/30/2018 [facility] Vitamin D deficiency Active Problem 11/30/2018 [facility] CVA Active Problem 10/27/2018 [facility] Dehydration Active Problem 10/27/2018 [facility] Renal failure , acute on chronic Active Problem 10/27/2018 [facility] CHEST PAIN NOS Active [facility] Medications Medication Details Route Status Patient Instructions Ordering Provider Order Date Source Ergocalciferol 76203 UNT Oral Capsule 50,000 IntlUnit=1 cap, PO, qWeek, # 12 cap, 2 Refill(s), [facility]acy: [id number] Active 10/21/2018 [facility] citalopram 10 mg oral tablet 10 mg=1 tab, PO, Daily, # 30 tab, 1 Refill(s), [facility]acy: [facility] [id number] Active 10/20/2018 [facility] Alendronic acid 70 MG Oral Tablet 70 mg=1 tab, PO, Q7D, with 6 to 8 ounces plain water, at least 30 minutes before first food, beverage, or medication of the day, # 12 tab, 3 Refill(s) Active 10/20/2018 [facility] OneTouch Ultra Blue Blood Glucose Test Strip 1 ea, MISC, TID, Last HBA1c: Insulin Dep:Y High freq tests for: Poor control Certified Medically Necessary:, # 270 ea, Insulin dependent, Does not use insulin pump, Last DM eval date 10/20/18, 3 Refill(s), [facility]acy: [id number] Active 10/20/2018 [facility] atorvastatin 40 mg oral tablet 40 mg=1 tab, PO, Bedtime, # 90 tab, 1 Refill(s), [facility]acy: [facility] [id number] Active 10/20/2018 [facility] Hydrochlorothiazide 12.5 MG / Lisinopril 20 MG Oral Tablet 1 tab, PO, Daily, # 90 tab, 1 Refill(s), Pharmacy: [id number], stop losartan hctz and amlodipine. Active 10/20/2018 [facility] atorvastatin 40 mg oral tablet 40 mg=1 tab, PO, Bedtime, # 90 tab, 1 Refill(s), Pharmacy: [facility] [id number] Active 10/09/2018 [facility] Trazodone Hydrochloride 50 MG Oral Tablet 50 mg=1 tab, PO, Bedtime, after meals for insomnia, # 30 tab, 1 Refill(s), Pharmacy: [facility] [id number] Active 09/19/2018 [facility] gabapentin 300 MG Oral Capsule 300 mg=1 cap, PO, BID, # 60 cap, 1 Refill(s), Pharmacy: [facility] [id number] Active 09/19/2018 [facility] metoprolol tartrate 25 mg oral tablet 12.5 mg=0.5 tab, PO, BID, 0 Refill(s) Active 09/19/2018 [facility] Hydrochlorothiazide 12.5 MG / Losartan Potassium 50 MG Oral Tablet 1 tab, PO, Daily, # 90 tab, 0 Refill(s) Active 09/19/2018 [facility] amLODIPine 10 mg oral tablet 10 mg=1 tab, PO, Daily, # 90 tab, 1 Refill(s) Active 09/19/2018 [facility] Aspirin Enteric Coated 325 mg oral delayed release tablet 325 mg=1 tab, PO, Daily, 0 Refill(s) Active 09/19/2018 [facility] Glipizide 5 MG Oral Tablet 5 mg=1 tab, PO, Before Breakfast, # 30 tab, 0 Refill(s) Active 09/19/2018 [facility] pantoprazole 40 mg oral enteric coated tablet 40 mg=1 tab, PO, Daily, # 90 tab, 0 Refill(s) Active 09/19/2018 [facility] 3 ML insulin detemir 100 UNT/ML Prefilled Syringe [Levemir] 18 unit, SUB-Q, Bedtime, 0 Refill(s) Active 09/19/2018 [facility] atorvastatin 40 mg oral tablet 40 mg=1 tab, PO, Bedtime, # 90 tab, 1 Refill(s) Active 09/19/2018 [facility] Acetaminophen 325 MG / Hydrocodone Bitartrate 5 MG Oral Tablet 1 tab, PO, Q4H, for pain, # 12 tab, 0 Refill(s) Active 03/06/2014 [facility] ciprofloxacin 500 mg oral tablet 500 mg=1 tab, PO, Q12H, # 20 tab, 0 Refill(s) Active 03/06/2014 [facility] Zofran 4 mg, Route: IVP, Drug form: INJ, ONCE, Dosing Weight 78.636, kg, Priority: STAT, Start date: 03/05/14 22:16:00, Stop date: 03/05/14 22:16:00 Inactive 03/06/2014 [facility] Morphine 4 mg, Route: IVP, Drug form: INJ, ONCE, Dosing Weight 78.636, kg, Priority: STAT, Start date: 03/05/14 22:15:00, Stop date: 03/05/14 22:15:00 Inactive 03/06/2014 [facility] lisinopril 10 mg oral tablet 10 mg, 1 tab, PO, Daily, 30 tab, Substitution Allowed, TAB Active Luis Carlos 04/01/2013 [facility] metFORmin 500 mg oral tablet 500 mg, 1 tab, PO, BID, 30 tab, Substitution Allowed Active Luis Carlos 04/01/2013 [facility] Insulin regular 8 unit, Route: SUB-Q, ONCE, Dosing Weight 79.091, kg, Start date: 04/01/13 12:23:00, Stop date: 04/01/13 12:23:00 Inactive Luis Carlos 04/01/2013 [facility] dexamethasone 10 mg, Route: IM, ONCE, Dosing Weight 79.091, kg, Priority: STAT, Start date: 04/01/13 11:36:00, Stop date: 04/01/13 11:36:00 Inactive Luis Carlos 04/01/2013 [facility] ketorolac 60 mg, Route: IM, Drug form: INJ, ONCE, Dosing Weight 79.091, kg, Priority: STAT, Start date: 04/01/13 11:35:00, Stop date: 04/01/13 11:35:00 Inactive Luis Carlos 04/01/2013 [facility] Bicillin L-A 1,200,000 unit, 2 mL, Route: IM, Drug form: INJ, ONCE, Dosing Weight 79.091, kg, Start date: 04/01/13 11:35:00, Stop date: 04/01/13 11:35:00(penicillin G benzathine 1.2 MilUnit/2 ml INJ) (Same as: Bi cillin L-A, Permapen) NOT For Daily Use Inactive Luis Carlos 04/01/2013 [facility] acetaminophen 500 mg, 1 tab, Route: PO, Drug form: TAB, Q6H, PRN Pain, Start date: 07/31/11 19:22:00, Duration: 30 day, Stop date: 08/30/11 19:21:00 PO No Longer Active [place] 08/01/2011 [facility] Metoprolol Succinate ER 25 mg oral tablet, extended release 25 mg, 1 tab, Route: PO, Drug form: ERTAB, Daily, Start date: 07/30/11 9:00:00, Duration: 30 day, Stop date: 08/28/11 9:00:00 PO No Longer Active [place] 07/30/2011 [facility] aspirin 325 mg tablet, enteric coated 325 mg, 1 tab, Route: PO, Drug form: ECTAB, Daily, Start date: 07/30/11 9:00:00, Duration: 30 day, Stop date: 08/28/11 9:00:00 PO No Longer Active [place] 07/30/2011 [facility] Saline Flush 0.9% 5 ml, Route: IVP, Drug Form: INJ, Q12H, Start date: 07/29/11 21:00:00, Duration: 30 day, Stop date: 08/28/11 9:00:00 IVP No Longer Active [place] 07/30/2011 [facility] simvastatin 20 mg, 1 tab, Route: PO, Drug form: TAB, Bedtime, Start date: 07/29/11 21:00:00, Duration: 30 day, Stop date: 08/27/11 21:00:00 PO No Longer Active [place] 07/30/2011 [facility] Dextrose 50% in Water IV 50 mL, Route: IVP, PRN, Blood Glucose Results, Start date: 07/29/11 17:36:00, Duration: 30 day, Stop date: 08/28/11 17:35:00 IVP No Longer Active [place] 07/29/2011 [facility] Dextrose 50% in Water IV 25 mL, Route: IVP, PRN, Blood Glucose Results, Start date: 07/29/11 17:35:00, Duration: 30 day, Stop date: 08/28/11 17:34:00 IVP No Longer Active [place] 07/29/2011 [facility] metFORmin 500 mg oral tablet 500 mg, 1 tab, Route: PO, Drug form: TAB, BID-Meals, Start date: 07/29/11 17:00:00, Duration: 30 day, Stop date: 08/28/11 8:00:00 PO No Longer Active [place] 07/29/2011 [facility] insulin aspart 4 unit, 0.04 mL, Route: SUB-Q, Drug form: SOLN, TID-Before Meals, PRN Blood Glucose Results, Start date: 07/29/11 16:33:00, Duration: 30 day, Stop date: 08/28/11 16:32:00 SUB-Q No Longer Active [place] 07/29/2011 [facility] Saline Flush 0.9% 5 ml, Route: IVP, Drug Form: INJ, PRN, PRN Line Flush, Start date: 07/29/11 16:33:00, Duration: 30 day, Stop date: 08/28/11 16:32:00 IVP No Longer Active [place] 07/29/2011 [facility] nitroglycerin SL Tab 0.4 mg, 1 tab, Route: SL, Drug form: TAB, Q5Min, PRN Chest Pain, Start date: 07/29/11 16:33:00, Duration: 3 doses or times, Stop date: Limited # of times SL No Longer Active [place] 07/29/2011 [facility] insulin aspart 2 unit, 0.02 mL, Route: SUB-Q, Drug form: SOLN, TID-Before Meals, PRN Blood Glucose Results, Start date: 07/29/11 16:32:00, Duration: 30 day, Stop date: 08/28/11 16:31:00 SUB-Q No Longer Active [place] 07/29/2011 [facility] glucagon 1 mg, Route: IM, Drug form: PDR/INJ, PRN, PRN Blood Glucose Results, Start date: 07/29/11 16:32:00, Duration: 30 day, Stop date: 08/28/11 16:31:00 IM No Longer Active [place] 07/29/2011 [facility] atropine 0.5 mg, 5 mL, Route: IVP, Drug form: INJ, PRN, PRN Bradycardia, Start date: 07/29/11 16:32:00, Duration: 30 day, Stop date: 08/28/11 16:31:00 IVP No Longer Active [place] 07/29/2011 [facility] Tylenol 650 mg, 2 tab, Route: PO, Drug form: TAB, Q6H, PRN Pain, Start date: 07/29/11 16:32:00, Duration: 30 day, Stop date: 08/28/11 16:31:00 PO No Longer Active [place] 07/29/2011 [facility] Dextrose 50% Syringe 12.5 gm, Route: IVP, Drug Form: INJ, PRN, PRN Blood Glucose Results, Start date: 07/29/11 16:32:00, Duration: 30 day, Stop date: 08/28/11 16:31:00 IVP No Longer Active [place] 07/29/2011 [facility] Dextrose 50% Syringe 25 gm, Route: IVP, Drug Form: INJ, PRN, PRN Blood Glucose Results, Start date: 07/29/11 16:31:00, Duration: 30 day, Stop date: 08/28/11 16:30:00 IVP No Longer Active [place] 07/29/2011 [facility] Metoprolol Succinate ER 25 mg oral tablet, extended release 25 mg, 1 tab, Route: PO, Drug form: ERTAB, Daily, Start date: 07/29/11 9:00:00, Duration: 30 day, Stop date: 08/27/11 9:00:00 PO No Longer Active Frederick 07/29/2011 [facility] simvastatin 20 mg, 1 tab, Route: PO, Drug form: TAB, Bedtime, Start date: 07/28/11 21:00:00, Duration: 30 day, Stop date: 08/26/11 21:00:00 PO No Longer Active Frederick 07/29/2011 [facility] metFORmin 500 mg oral tablet 500 mg, 1 tab, Route: PO, Drug form: TAB, BID-Meals, Start date: 07/28/11 17:00:00, Duration: 30 day, Stop date: 08/27/11 8:00:00 PO No Longer Active Frederick 07/28/2011 [facility] Tylenol 650 mg, 2 tab, Route: PO, Drug form: TAB, Q6H, PRN Pain, Start date: 07/28/11 4:25:00, Duration: 30 day, Stop date: 08/27/11 4:24:00 PO No Longer Active Frederick 07/28/2011 [facility] Saline Flush 0.9% 5 ml, Route: IVP, Drug Form: INJ, Q12H, Start date: 07/27/11 21:00:00, Duration: 30 day, Stop date: 08/26/11 9:00:00 IVP No Longer Active [place] 07/28/2011 [facility] atropine 0.5 mg, 5 mL, Route: IVP, Drug form: INJ, PRN, PRN Bradycardia, Start date: 07/27/11 19:19:00, Duration: 30 day, Stop date: 08/26/11 19:18:00 IVP No Longer Active [place] 07/28/2011 [facility] aspirin 325 mg tablet, enteric coated 325 mg, 1 tab, Route: PO, Drug form: ECTAB, Q24H, Start date: 07/27/11 19:00:00, Duration: 30 day, Stop date: 08/25/11 19:00:00 PO No Longer Active [place] 07/28/2011 [facility] Saline Flush 0.9% 5 ml, Route: IVP, Drug Form: INJ, PRN, PRN Line Flush, Start date: 07/27/11 18:25:00, Duration: 30 day, Stop date: 08/26/11 18:24:00 IVP No Longer Active [place] 07/28/2011 [facility] nitroglycerin SL Tab 0.4 mg, 1 tab, Route: SL, Drug form: TAB, Q5Min, PRN Chest Pain, Start date: 07/27/11 18:25:00, Duration: 3 doses or times, Stop date: Limited # of times SL No Longer Active [place] 07/28/2011 [facility] Dextrose 50% Syringe 12.5 gm, 25 mL, Route: IVP, Drug Form: INJ, PRN, PRN Blood Glucose Results, Start date: 07/27/11 18:24:00, Duration: 30 day, Stop date: 08/26/11 18:23:00 IVP No Longer Active [place] 07/28/2011 [facility] glucagon 1 mg, Route: IM, Drug form: PDR/INJ, PRN, PRN Blood Glucose Results, Start date: 07/27/11 18:24:00, Duration: 30 day, Stop date: 08/26/11 18:23:00 IM No Longer Active [place] 07/28/2011 [facility] insulin aspart 2 unit, 0.02 mL, Route: SUB-Q, Drug form: SOLN, TID-Before Meals, PRN Blood Glucose Results, Start date: 07/27/11 18:24:00, Duration: 30 day, Stop date: 08/26/11 18:23:00 SUB-Q No Longer Active Nasim 07/28/2011 [facility] Tylenol 1,000 mg, Route: PO, Drug form: TAB, ONCE, PRN Pain, Priority: STAT, Start date: 07/27/11 17:44:00, Stop date: 08/26/11 17:43:00 PO No Longer Active Santi 07/27/2011 [facility] metFORmin 500 mg oral tablet 500 mg, 1 tab, PO, BID-Meals, Substitution Allowed PO Active Frederick 07/27/2011 [facility] hydrochlorothiazide-lisinopril 12.5 mg-10 mg oral tablet 1 tab, PO, Daily, Substitution Allowed, Maintenance PO Active 07/27/2011 [facility] simvastatin 20 mg, PO, Bedtime, Substitution Allowed PO Active Frederick 07/27/2011 [facility] Vitamin D 50,000 intl units oral capsule 50,000 IntlUnit, 1 cap, PO, QFri, Substitution Allowed PO Active 07/27/2011 [facility] ibuprofen 400 mg oral tablet 400 mg, 1 tab, PO, TID, PRN, as needed for headache, Substitution Allowed PO Active 07/27/2011 [facility] Saline Flush 0.9% 5 ml, Route: IVP, Drug Form: INJ, PRN, PRN Line Flush, Start date: 07/27/11 14:54:00, Duration: 24 hr, Stop date: 07/28/11 14:53:00 IVP No Longer Active [place] 07/27/2011 [facility] aspirin 325 mg tablet 325 mg, Route: PO, Drug form: TAB, ONCE, Priority: STAT, Start date: 07/27/11 14:54:00, Stop date: 07/27/11 14:54:00 PO No Longer Active Santi 07/27/2011 [facility] Amlodipine Besylate 5 Mg Tablet Daily Active [facility] Aspirin 325 Mg Tablet Daily Active [facility] Atorvastatin Calcium 10 Mg Tablet Twice A Day Active [facility] Lisinopril 10 Mg Tablet Daily Active [facility] Metoprolol Succinate 25 Mg Tab.er.24h Twice A Day Active [facility] Pantoprazole Sodium (Protonix) 40 Mg Tablet. Daily Active [facility] Allergies, Adverse Reactions, Alerts Substance Category Reaction Severity Reaction type Status Date Reported Comments Source Iodine VOMITING Severe Allergy to Substance Active 09/30/2018 [facility] Diphenhydramine RASH Severe Allergy to Substance Active 09/30/2018 [facility] Vancomycin RASH/TURNS RED Severe Allergy to Substance Active 09/30/2018 [facility] Tomato RASH/VOMITING Severe Allergy to Substance Active 09/30/2018 [facility] vancomycin Assertion rash Low Drug allergy Active [facility] iodine Assertion Drug allergy Active [facility] Immunizations No Data Provided for This Section Results Order Name Results Value Reference Range Date Interpretation Comments Source Capillary blood glucose measurement by glucometer (mass/volume) 105 70 - 120 10/02/2018 [facility] Urine color determination YELLOW YELLOW 10/02/2018 [facility] Urine clarity SL CLOUDY CLEAR 10/02/2018 [facility] Specific gravity of Urine by Test strip 1.020 1.010 - 1.025 10/02/2018 [facility] Urine pH measurement by automated test strip 6.5 5 - 7 10/02/2018 [facility] Urine leukocyte esterase detection by dipstick NEGATIVE NEGATIVE 10/02/2018 [facility] Urine nitrite detection NEGATIVE NEGATIVE 10/02/2018 [facility] Urine protein measurement by test strip (mass/volume) 3+ NEGATIVE 10/02/2018 [facility] Urine glucose detection 2+ NEGATIVE 10/02/2018 [facility] Urine ketones detection by automated test strip NEGATIVE NEGATIVE 10/02/2018 [facility] Urine urobilinogen measurement by test strip (mass/volume) 0.2 0.2 - 1 10/02/2018 [facility] Urine total bilirubin measurement (mass/volume) NEGATIVE NEGATIVE 10/02/2018 [facility] Urine erythrocytes detection TRACE NEGATIVE 10/02/2018 [facility] Automated urine sediment leukocyte count by microscopy (number/high power field) 0-5 0 - 5 10/02/2018 [facility] Erythrocytes detection in urine sediment by light microscopy 0-5 0 - 5 10/02/2018 [facility] Bacteria detection in urine sediment by light microscopy RARE NONE 10/02/2018 [facility] Epithelial cells detection in urine sediment by light microscopy RARE NONE 10/02/2018 [facility] Urine protein measurement (mass/volume) 1055.7 1 - 14 10/02/2018 [facility] Urine creatinine measurement (mass/volume) 40.02 47 - 110 10/02/2018 [facility] Random urine protein/creatinine ratio 26.00 10/02/2018 [facility] Blood leukocytes automated count (number/volume) 11.01 4.8 - 10.8 10/02/2018 [facility] Blood erythrocytes automated count (number/volume) 4.63 3.6 - 5.1 10/02/2018 [facility] Blood hemoglobin measurement (moles/volume) 12.2 12.0 - 16.0 10/02/2018 [facility] Automated blood hematocrit (volume fraction) 38.7 34.2 - 44.1 10/02/2018 [facility] Automated erythrocyte mean corpuscular volume 83.6 81 - 99 10/02/2018 [facility] Automated erythrocyte mean corpuscular hemoglobin (mass per erythrocyte) 26.3 28 - 32 10/02/2018 [facility] Automated erythrocyte mean corpuscular hemoglobin concentration measurement (mass/volume) 31.5 31 - 35 10/02/2018 [facility] RDW BldCo-Rto 14.8 11.7 - 14.4 10/02/2018 [facility] Automated blood platelet count (count/volume) 394 140 - 360 10/02/2018 [facility] Automated blood segmented neutrophil count as percentage of total leukocytes 51.9 38.7 - 80.0 10/02/2018 [facility] Automated blood lymphocyte count as percentage ot total leukocytes 37.2 18.0 - 39.1 10/02/2018 [facility] Automated blood monocyte count as percentage of total leukocytes 5.8 4.4 - 11.3 10/02/2018 [facility] Automated blood eosinophil count as percentage of total leukocytes 3.7 0.0 - 6.0 10/02/2018 [facility] Automated blood basophil count as percentage of total leukocytes 0.9 0.0 - 1.0 10/02/2018 [facility] IM GRANULOCYTES % 0.5 0.0 - 1.0 10/02/2018 [facility] Automated blood neutrophil count 5.7 2.1 - 6.9 10/02/2018 [facility] Blood lymphocytes count (number/volume) 4.1 1.0 - 3.2 10/02/2018 [facility] Blood monocytes automated count (number/volume) 0.6 0.2 - 0.8 10/02/2018 [facility] Automated blood eosinophil count 0.4 0.0 - 0.4 10/02/2018 [facility] Automated blood basophil count (count/volume) 0.1 0.0 - 0.1 10/02/2018 [facility] Absolute Immature Granulocyte (auto 0.06 0 - 0.1 10/02/2018 [facility] Serum or plasma sodium measurement (moles/volume) 138 136 - 145 10/02/2018 [facility] Serum or plasma potassium measurement (moles/volume) 4.8 3.5 - 5.1 10/02/2018 [facility] Serum or plasma chloride measurement (moles/volume) 116 98 - 107 10/02/2018 [facility] Serum or plasma carbon dioxide, total measurement (moles/volume) 18 22 - 29 10/02/2018 [facility] Serum or plasma anion gap 8.8 8 - 16 10/02/2018 [facility] Serum or plasma urea nitrogen measurement (mass/volume) 39 7 - 26 10/02/2018 [facility] Serum or plasma creatinine measurement (mass/volume) 1.74 0.57 - 1.11 10/02/2018 [facility] Serum or plasma urea nitrogen/creatinine mass ratio 22 6 - 25 10/02/2018 [facility] Estimated glomerular filtration rate (GFR) determination 29 60 10/02/2018 [facility] Glucose measurement 104 74 - 118 10/02/2018 [facility] Serum or plasma calcium measurement (mass/volume) 8.4 8.4 - 10.2 10/02/2018 [facility] Serum or plasma creatine kinase measurement (enzymatic activity/volume) 113 29 - 168 10/01/2018 [facility] Serum or plasma creatine kinase MB measurement (mass/volume) 1.30 0 - 5.0 10/01/2018 [facility] Troponin I measurement by highly sensitive enzyme immunoassay 0.021 0 - 0.300 10/01/2018 [facility] Serum or plasma total bilirubin measurement (mass/volume) 0.2 0.2 - 1.2 10/01/2018 [facility] Aspartate Amino Transf (AST/SGOT) 11 5 - 34 10/01/2018 [facility] Serum or plasma alanine aminotransferase measurement (enzymatic activity/volume) 6 0 - 55 10/01/2018 [facility] Serum or plasma protein measurement (mass/volume) 5.2 6.5 - 8.1 10/01/2018 [facility] Serum or plasma albumin measurement (mass/volume) 1.8 3.5 - 5.0 10/01/2018 [facility] Plasma globulin measurement (mass/volume) 3.4 2.3 - 3.5 10/01/2018 [facility] Serum or plasma albumin/globulin mass ratio 0.5 0.8 - 2.0 10/01/2018 [facility] Serum or plasma alkaline phosphatase measurement (enzymatic activity/volume) 76 40 - 150 10/01/2018 [facility] Prothrombin time (PT) in platelet poor plasma by coagulation assay 12.0 11.9 - 14.5 09/30/2018 [facility] INR in Platelet poor plasma by Coagulation assay 0.84 09/30/2018 [facility] Activated partial thromboplastin time (aPTT) in platelet poor plasma bycoagulation assay 29.7 23.8 - 35.5 09/30/2018 [facility] BNP Bld-mCnc 47.7 0 - 100 09/30/2018 [facility] Serum or plasma thyrotropin measurement by detection limit <=0.005 miu/l (units/volume) 3.276 0.350 - 4.940 09/30/2018 [facility] Serum or plasma magnesium measurement (mass/volume) 2.3 1.3 - 2.1 07/15/2018 [facility] Serum or plasma triglyceride measurement (mass/volume) 257 0 - 149 07/14/2018 [facility] Serum or plasma cholesterol measurement (mass/volume) 344 0 - 199 07/14/2018 [facility] Serum or plasma cholesterol in LDL measurement (mass/volume) 259 60 - 130 07/14/2018 [facility] Serum or plasma cholesterol in HDL measurement (mass/volume) 34 40 - 60 07/14/2018 [facility] Serum or plasma total cholesterol/cholesterol in HDL mass ratio 10.1 3.0 - 3.6 07/14/2018 [facility] Hemoglobin A1c Percent 8.8 4.0 - 7.0 07/13/2018 [facility] Free thyroxine index 1.9343 1.4 - 3.8 07/13/2018 [facility] Serum or plasma thyroxine (T4) measurement (mass/volume) 5.75 4.5 - 10.9 07/13/2018 [facility] Serum or plasma triiodothyronine resin uptake (T3RU) 33.64 22.5 - 37.0 07/13/2018 [facility] CHEM PANEL eGFR 99 03/06/2014 <sup>1</sup>Result Comment: [...] should be multiplied by the estimated BMI. [facility] CHEM PANEL Bili Total 0.9 0.2 - 1.3 03/06/2014 [facility] CHEM PANEL AGAP 13.0 10.0 - 20.0 03/06/2014 [facility] CHEM PANEL B/C Ratio 18 6 - 25 03/06/2014 [facility] CHEM PANEL ALT 28 0 - 65 03/06/2014 [facility] CHEM PANEL AST 18 0 - 37 03/06/2014 [facility] CHEM PANEL Alk Phos 152 39 - 136 03/06/2014 [facility] CHEM PANEL Potassium Lvl 4.0 3.5 - 5.1 03/06/2014 [facility] CHEM PANEL Chloride Lvl 100 95 - 109 03/06/2014 [facility] CHEM PANEL Creatinine Lvl 0.6 0.5 - 1.4 03/06/2014 [facility] CHEM PANEL Sodium Lvl 134 135 - 145 03/06/2014 [facility] CHEM PANEL Glucose Lvl 306 70 - 99 03/06/2014 <sup>2</sup>Interpretive Data: Adult reference range values reflect the clinical guidelines
of the [place] [employer]. [facility] CHEM PANEL BUN 11 7 - 22 03/06/2014 [facility] CHEM PANEL Albumin Lvl 3.6 3.5 - 5.0 03/06/2014 [facility] CHEM PANEL Total Protein 8.0 6.4 - 8.4 03/06/2014 [facility] CHEM PANEL Calcium Lvl 9.1 8.5 - 10.5 03/06/2014 [facility] CHEM PANEL CO2 25 24 - 32 03/06/2014 [facility] CHEM PANEL A/G Ratio 0.8 0.7 - 1.6 03/06/2014 [facility] CHEM PANEL Globulin 4.4 2.0 - 4.0 03/06/2014 [facility] HEMATOLOGY Segs 60.9 45.0 - 75.0 03/06/2014 [facility] HEMATOLOGY Basophils 1.1 0.0 - 1.0 03/06/2014 [facility] HEMATOLOGY Eosinophils 1.2 0.0 - 4.0 03/06/2014 [facility] HEMATOLOGY Monocytes 4.4 2.0 - 12.0 03/06/2014 [facility] HEMATOLOGY Lymphocytes 32.4 20.0 - 40.0 03/06/2014 [facility] HEMATOLOGY Eosinophils # 0.1 0.0 - 0.5 03/06/2014 [facility] HEMATOLOGY Monocytes # 0.5 0.0 - 0.8 03/06/2014 [facility] HEMATOLOGY Lymphocytes # 3.5 1.0 - 5.5 03/06/2014 [facility] HEMATOLOGY Segs-Bands # 6.5 1.5 - 8.1 03/06/2014 [facility] HEMATOLOGY Basophils # 0.1 0.0 - 0.2 03/06/2014 [facility] HEMATOLOGY RDW 13.0 11.5 - 14.5 03/06/2014 [facility] HEMATOLOGY MCHC 33.4 32.0 - 36.0 03/06/2014 [facility] HEMATOLOGY MCH 28.3 27.0 - 31.0 03/06/2014 [facility] HEMATOLOGY MCV 84.7 80.0 - 98.0 03/06/2014 [facility] HEMATOLOGY MPV 8.7 7.4 - 10.4 03/06/2014 [facility] HEMATOLOGY Platelet 366 133 - 450 03/06/2014 [facility] HEMATOLOGY WBC 10.7 3.7 - 10.4 03/06/2014 [facility] HEMATOLOGY Hct 49.5 36.0 - 48.0 03/06/2014 [facility] HEMATOLOGY Hgb 16.5 12.0 - 16.0 03/06/2014 [facility] HEMATOLOGY RBC 5.84 4.20 - 5.40 03/06/2014 [facility] URINE AND STOOL UA Urobilinogen <=1.0 mg/dL 0.1 - 1.0 03/05/2014 [facility] URINE AND STOOL UA Blood Small *ABN* (03/05/14 12:30 AM) Negative 03/05/2014 [facility] URINE AND STOOL UA Nitrite Negative (03/05/14 12:30 AM) Negative 03/05/2014 [facility] URINE AND STOOL UA Turbidity Marked *ABN* (03/05/14 12:30 AM) Clear 03/05/2014 [facility] URINE AND STOOL UA Spec Grav 1.032 <=1.030 03/05/2014 [facility] URINE AND STOOL UA Color Yellow *NA* (03/05/14 12:30 AM) Yellow 03/05/2014 [facility] URINE AND STOOL UA Sq Epi Many /LPF Few /LPF 03/05/2014 [facility] URINE AND STOOL UA WBC 128 0 - 5 03/05/2014 [facility] URINE AND STOOL UA RBC 15 0 - 2 03/05/2014 [facility] URINE AND STOOL UA Leuk Est Large *ABN* (03/05/14 12:30 AM) Negative 03/05/2014 [facility] URINE AND STOOL UA Bili Negative *NA* (03/05/14 12:30 AM) Negative 03/05/2014 [facility] URINE AND STOOL UA pH 5.0 5.0 - 8.0 03/05/2014 [facility] URINE AND STOOL UA Protein 30 mg/dL Negative mg/dL 03/05/2014 [facility] URINE AND STOOL UA Glucose 500 mg/dL Negative mg/dL 03/05/2014 [facility] URINE AND STOOL UA Ketones 20 mg/dL Negative mg/dL 03/05/2014 [facility] BEDSIDE GLUCOSE TESTING Glucose POC 340 70 - 99 04/01/2013 [facility] <sup>1</sup>Interpretive Data: Upper Reportable Limit: 200 mg/dL. [facility] BEDSIDE GLUCOSE TESTING Glucose POC 356 70 - 99 04/01/2013 [facility] <sup>2</sup>Interpretive Data: Upper Reportable Limit: 200 mg/dL. [facility] BEDSIDE GLUCOSE TESTING Gluc POC Lifscn 162 65 - 110 08/01/2011 [facility] <sup>1</sup>Interpretive Data: Upper Reportable Limit: 200 mg/dL. [facility] BEDSIDE GLUCOSE TESTING Gluc POC Lifscn 226 65 - 110 08/01/2011 [facility] <sup>2</sup>Interpretive Data: Upper Reportable Limit: 200 mg/dL. [facility] BEDSIDE GLUCOSE TESTING Gluc POC Lifscn 144 65 - 110 07/31/2011 [facility] <sup>3</sup>Interpretive Data: Upper Reportable Limit: 200 mg/dL. [facility] BEDSIDE GLUCOSE TESTING Comment1 Notify RN/ 07/31/2011 NA [facility] BEDSIDE GLUCOSE TESTING Comment1 Notify RN/ 07/31/2011 NA [facility] BEDSIDE GLUCOSE TESTING Comment1 Notify RN/ 07/30/2011 NA [facility] CHEMISTRY Troponin-I <0.02 0.00 - 0.40 07/28/2011 Normal [facility] CHEMISTRY Total CK 35 12 - 191 07/28/2011 Normal [facility] CHEMISTRY Total CK 35 12 - 191 07/28/2011 Normal [facility] CHEMISTRY Troponin-I <0.02 0.00 - 0.40 07/28/2011 Normal [facility] CHEMISTRY CK MB Index <1.1 0.0 - 2.5 07/27/2011 Normal [facility] CHEMISTRY Total CK 45 12 - 191 07/27/2011 Normal [facility] CHEMISTRY CK MB <0.5 0.5 - 3.6 07/27/2011 Normal [facility] CHEMISTRY Troponin-I <0.02 0.00 - 0.40 07/27/2011 Normal [facility] CHEMISTRY Chloride Lvl 103 95 - 109 07/27/2011 Normal [facility] CHEMISTRY CO2 21 24 - 32 07/27/2011 LOW [facility] CHEMISTRY Sodium Lvl 135 135 - 145 07/27/2011 Normal [facility] CHEMISTRY Potassium Lvl 3.9 3.5 - 5.1 07/27/2011 Normal [facility] CHEMISTRY Creatinine Lvl 0.8 0.5 - 1.4 07/27/2011 Normal [facility] CHEMISTRY Glucose Lvl 352 07/27/2011 NA <sup>4</sup>Interpretive Data: Reference Ranges : 0 - 7 days : 41 - 90 mg/dL 7 days - 150 yrs : 70 - 99 mg/dL (fasting), based on the clinical recommendations of the [place] [employer]. [facility] CHEMISTRY BUN 23 7 - 22 07/27/2011 HI [facility] CHEMISTRY Bili Total 0.4 0.2 - 1.3 07/27/2011 Normal [facility] CHEMISTRY Alk Phos 99 39 - 136 07/27/2011 Normal [facility] CHEMISTRY AST 6 0 - 37 07/27/2011 Normal [facility] CHEMISTRY ALT 22 0 - 65 07/27/2011 Normal [facility] CHEMISTRY Total Protein 8.0 6.4 - 8.4 07/27/2011 Normal [facility] CHEMISTRY Albumin Lvl 3.8 3.5 - 5.0 07/27/2011 Normal [facility] CHEMISTRY Calcium Lvl 8.9 8.5 - 10.5 07/27/2011 Normal [facility] CHEMISTRY A/G Ratio 0.9 0.7 - 1.6 07/27/2011 Normal [facility] CHEMISTRY B/C Ratio 29 6 - 25 07/27/2011 [facility] CHEMISTRY Globulin 4.2 2.0 - 4.0 07/27/2011 [facility] CHEMISTRY AGAP 14.9 10.0 - [...] # 0.1 0.0 - 0.5 07/27/2011 Normal [facility] HEMATOLOGY MPV 7.9 7.4 - 10.4 07/27/2011 Normal [facility] HEMATOLOGY MCHC 35.4 32.0 - 36.0 07/27/2011 Normal [facility] HEMATOLOGY MCH 29.2 27.0 - 31.0 07/27/2011 Normal [facility] HEMATOLOGY RDW 13.2 11.5 - 14.5 07/27/2011 Normal [facility] HEMATOLOGY Platelet 360 133 - 450 07/27/2011 Normal [facility] HEMATOLOGY RBC 4.86 4.20 - 5.40 07/27/2011 Normal [facility] Hct 40.0 36.0 - 48.0 07/27/2011 Normal [facility] HEMATOLOGY MCV 82.4 81.0 - 99.0 07/27/2011 Normal [facility] HEMATOLOGY Hgb 14.2 12.0 - 16.0 07/27/2011 Normal [facility] WBC 10.2 3.7 - 10.4 07/27/2011 Normal [facility] INR 0.95 0.85 - 1.17 07/27/2011 Normal <sup>5</sup>Interpretive Data: RECOMMENDED RANGES FOR PROTIME INR: 2.0-3.0 for most medical and surgical thromboembolic states. 2.5-3.5 for artificial heart valves and recurrent embolism. INR SHOULD BE USED ONLY FOR PATIENTS ON STABLE ANTICOAGULANT THERAPY. [facility] HEMATOLOGY PT 12.7 12.0 - 14.7 07/27/2011 Normal [facility] PTT 25.2 22.9 - 35.8 07/27/2011 Normal <sup>6</sup>Interpretive Data: Heparin Therapeutic Range: 57 - 92 Seconds [facility] Pathology Reports No Data Provided for This Section Diagnostic Reports Report Value Date Source Breast Mammo Scrn KIMBERLY incl CAD MA BILATERAL DIGITAL SCREENING MAMMOGRAM WITH CAD: 10/15/2018 CLINICAL: /Routine. Current study was evaluated with a Computer Aided Detection (CAD) system. COMPARISON:Comparison is made to exam dated: 10/02/2011 mammogram - [facility]. TECHNIQUE: Mammographic views were obtained using digital acquisition. [employer] Version 1.3 was utilized for computer aided [...] is recommended.(10/16/2019) This exam was interpreted at [id number] for [facility]. Fran johnson/penrad:10/15/2018 15:19:21 Clinical Pharmacy Manager(s): Kimberly Davis, [facility] letter sent: BI-RADS 1/2 Mammogram BI-RADS: 2 Benign 10/15/2018 [facility] Bone Density Scan Study: Bone Density Scan Clinical Indication: Osteoporosis screening; Images of the axial lumbar spine and left hip have been performed using [employer] Discovery SL scanner. COMPARISON: None FINDINGS: The [...] standard deviations below peak bone mass. SL: [id number] 10/15/2018 [facility] Shoulder series DX Left shoulder 3 views DX, 09/22/2018 12:37 CDT HISTORY: - left shoulder pain COMPARISON: None FINDINGS: No evidence for acute fracture. Humeral head is intact and located. Acromioclavicular joint is also intact mild degenerative changes. Soft tissues unremarkable. IMPRESSION: No acute osseous abnormality SL: [id number] 09/22/2018 [facility] Abdomen/Pelvis wo IV contrast CT CT SCAN [...] Postoperative cholecystectomy, appendectomy and hysterectomy. SL: 03/05/2014 [facility] Brain wo contrast CT CT head without [...] Dedicated MRI brain if indicated. SL: 03/05/2014 [facility] Knee AP and lateral Exam: Right knee [...] [facility] Respitory Rate 16 10/20/2018 [facility] Heart Rate 86 10/20/2018 [facility] Systolic [...] 03/06/2014 [facility] Systolic (mm Hg) 134 03/06/2014 [facility] Heart Rate 75 03/06/2014 [facility] Respitory Rate 16 03/06/2014 [facility] Height 160.02 cm 03/05/2014 [facility] BMI Calculated 30.71 03/05/2014 [facility] Weight 78.636 03/05/2014 [facility] Temperature Oral (F) 98.3 F 03/05/2014 [facility] Heart Rate 74 03/05/2014 [facility] Systolic (mm Hg) 143 03/05/2014 [facility] Respitory Rate 16 03/05/2014 [facility] Diastolic (mm Hg) 81 03/05/2014 [facility] Heart Rate 86 04/01/2013 [facility] Systolic (mm Hg) 136 04/01/2013 [facility] Diastolic (mm Hg) 84 04/01/2013 [facility] Respitory Rate 16 04/01/2013 [facility] Respitory Rate 16 04/01/2013 [facility] Diastolic (mm Hg) 68 04/01/2013 [facility] Heart Rate 90 04/01/2013 [facility] Systolic (mm Hg) 142 04/01/2013 [facility] Weight 79.091 04/01/2013 [facility] Height 160.02 cm 04/01/2013 [facility] Respitory Rate 18 04/01/2013 [facility] Heart Rate 90 04/01/2013 [facility] Systolic (mm Hg) 132 04/01/2013 [facility] Diastolic (mm Hg) 85 04/01/2013 [facility] Temperature Oral (F) 98.2 F 04/01/2013 [facility] Heart Rate 69 08/01/2011 [facility] Temperature Oral (F) 98.2 F 08/01/2011 [facility] Respitory Rate 18 08/01/2011 [facility] Systolic (mm Hg) 122 08/01/2011 [facility] Diastolic (mm Hg) 69 08/01/2011 [facility] Diastolic (mm Hg) 71 08/01/2011 [facility] Heart Rate 71 08/01/2011 [facility] Systolic (mm Hg) 109 08/01/2011 [facility] Respitory Rate 20 08/01/2011 [facility] Temperature Oral (F) 97.4 F 08/01/2011 [facility] Diastolic (mm Hg) 56 08/01/2011 [facility] Respitory Rate 18 08/01/2011 [facility] Systolic (mm Hg) 92 08/01/2011 [facility] Heart Rate 70 08/01/2011 [facility] Temperature Oral (F) 98.2 F 08/01/2011 [facility] Weight 81.364 07/28/2011 [facility] Height 157.48 cm 07/28/2011 [facility] Weight 81.364 07/27/2011 [facility] Height 157.48 cm 07/27/2011 [facility] Encounters Location Location Details Encounter Type Encounter Number Reason For Visit Attending Provider ADM Date DC Date Status Source [facility] Inpatient [id number] CHEST PAIN CASTILLO NOVAR 07/27/2011 08/01/2011 Active [facility] Emergency [id number] ZACHARY MEZAE 04/01/2013 04/01/2013 Discharged [facility] OD [id number] 719.4 - PAIN IN JOINT MILLIE ELOY 07/24/2013 07/24/2013 Active ASHLEY Garcia [facility] [id number] Susi Stanford 03/05/2014 03/06/2014 [facility] Discharged Inpatient [id number] ZAINA GORDON MD 07/12/2018 07/18/2018 [facility] Departed Emergency Room [id number] CALEB MELENDEZ MD 07/29/2018 07/29/2018 [facility] Outpatient [id number] Ivet Walker 09/19/2018 [facility] Outpatient [id number] Ivet Walker 09/19/2018 09/20/2018 [facility] Outpatient [id number] Ivet Disla 09/22/2018 09/23/2018 [facility] Discharged Inpatient (obs) [id number] ZAINA GORDON MD 09/30/2018 10/02/2018 [facility] Outpatient [id number] Dasha Sushant 10/09/2018 [facility] Outpatient [id number] Ivet Walker 10/09/2018 10/10/2018 [facility] Outpatient [id number] Ivet Walker 10/15/2018 10/16/2018 [facility] Outpatient [id number] Ivet Disla 10/20/2018 [facility] Outpatient [id number] Ivet Disla 10/20/2018 [facility] Outpatient [id number] Ivet Walker 10/20/2018 10/21/2018 [facility] Ambulatory Pre-Reg [id number] Ivet Walker 10/20/2018 10/20/2018 [facility] Departed Emergency Room [id number] JANIE RIVER MD 10/27/2018 10/27/2018 [facility] Outpatient [id number] Shelton Jackson 11/28/2018 [facility] Ambulatory Pre-Reg [id number] Bravoao Renetta 11/28/2018 11/28/2018 [facility] Outpatient [id number] Ivet Walker 01/19/2019 Active [facility] Procedures Procedure Code Date Perfomer Comments Source Bone density scan<sup>1</sup> [id number] 10/15/2018 1. Osteoporosis of the left femoral neck. 2. Osteopenia of the total left hip. 3. Osteopenia of the lumbar spine. [facility] Mammogram<sup>2</sup> [id number] 10/15/2018 There is no mammographic evidence of malignancy. A 1 year screening mammogram is recommended.(10/16/2019) [facility] Bone density scan<sup>1</sup> [id number] 10/15/2018 1. Osteoporosis of the left femoral neck. 2. Osteopenia of the total left hip. 3. Osteopenia of the lumbar spine. [facility] Mammogram<sup>2</sup> [id number] 10/15/2018 There is no mammographic evidence of malignancy. A 1 year screening mammogram is recommended.(10/16/2019) [facility] Diabetic Retinopathy [facility] 7 field stereoscopic fundus photography<sup>3, 4</sup> [id number] 10/08/[address] Ronak Lott is retinal specialist. [facility] Diabetic Retinopathy [facility] 7 field stereoscopic fundus photography<sup>3, 4</sup> [id number] 10/08/[address] Ronak Lott is retinal specialist. [facility] Retinopathy [facility] 7 field stereoscopic fundus photography<sup>1, 2</sup> [id number] 10/08/[address] Ronak Lott is retinal specialist. [facility] Magnetic resonance imaging of cervical spine without contrast [id number] 10/01/2018 [facility] Ultrasound, renal [id number] 10/01/2018 [facility] Magnetic resonance imaging of brain without contrast [id number] 10/01/2018 [facility] Computed tomography of brain without radiopaque contrast [id number] 09/30/2018 [facility] X-ray of chest, single view [id number] 09/30/2018 [facility] Magnetic resonance angiography of head without contrast [id number] 07/14/2018 [facility] Magnetic resonance angiography of neck without contrast [id number] 07/14/2018 [facility] Magnetic resonance imaging of brain without contrast [id number] 07/14/2018 [facility] Computed tomography of brain without radiopaque contrast [id number] 07/13/2018 [facility] INTRODUCE OTH THROMBOLYTIC IN PERIPH VEIN, PERC [id number] 07/12/2018 [facility] Computed tomography of brain without radiopaque contrast [id number] 07/12/2018 [facility] Colonoscopy<sup>1</sup> [id number] 06/24/2014 Per patient it was ok. [facility] Colonoscopy<sup>5</sup> [id number] 06/24/2014 Per patient it was ok. [facility] Colonoscopy<sup>5</sup> [id number] 06/24/2014 Per patient it was ok. [facility] Colonoscopy<sup>1</sup> [id number] 06/24/2014 Per patient it was ok. [facility] Colonoscopy<sup>3</sup> [id number] 06/24/2014 Per patient it was ok. [facility] Emergency department visit for the evaluation and management of a patient, which requires these 3 sullivan components: A detailed history; A detailed examination; and Medical decision making of moderate complexity. Counseling and/[place] [id number] 04/01/2013 [facility] Therapeutic, prophylactic, or diagnostic injection (specify substance or drug); subcutaneous or intramuscular 03180 04/01/2013 [facility] Hysterectomy<sup>2</sup> [id number] 06/24/1979 Due to fibroids [facility] Hysterectomy<sup>6</sup> [id number] 06/24/1979 Due to fibroids [facility] Hysterectomy<sup>6</sup> [id number] 06/24/1979 Due to fibroids [facility] Hysterectomy<sup>2</sup> [id number] 06/24/1979 Due to fibroids [facility] Hysterectomy<sup>4</sup> [id number] 06/24/1979 Due to fibroids [facility] Appendectomy [id number] [facility] Cholecystectomy [id number] [facility] Tubal ligation [id number] [facility] Appendectomy [id number] [facility] Cholecystectomy [id number] [facility] Tubal ligation [id number] [facility] Appendectomy [id number] [facility] Cholecystectomy [id number] [facility] Tubal ligation [id number] Medical [facility] Assessment and Plan No Data Provided for This Section Plan of Care Plan of Care Date Source Discharge Date 10/27/18 6:01pm Disposition HOME, SELF-CARE Condition at Discharge Stable Instructions/Education Provided Hypertension Forms Provided Work/School Excuse Prescriptions See Medication Section Referrals IVET DISLA M.D. Order Date: Call for an appointment Address: [address] [place] [address] [place] [address] [id number] Additional Instructions/Education 1. Please double your HCTZ/lisinopril until your PCP 10/27/2018 [facility] Discharge Date 10/02/18 5:49pm Disposition HOME, SELF-CARE Instructions/Education Provided Dehydration - Adult Diabetic Nephropathy Prescriptions See Medication Section Additional Instructions/Education Follow up with PCP in 5-[address] days. Follow up with Dr Michele Pineda in 1-2 weeks. [phone] Avoid nephrotoxic meds, including NSAIDs. Stay hydrated, drink plenty of water. Activity as tolerated. 10/02/2018 [facility] Social History Social History Date Source Smoking Status Start Date Stop Date Former smoker 10/27/2018 [facility] Social History TypeResponse Alcohol Past Smoking Status Former smoker; Type: Cigarettes; Exposure to Tobacco Smoke None; Cigarette Smoking Last 365 Days No; Reg Smoking Cessation Counseling No entered on: 10/09/18 09/19/2018 [facility] Social History TypeResponse Alcohol Past Smoking Status [...] advance directive on file with [facility]? No 10/01/18 10:58am If not on file with [facility] will patient provide a copy? Yes 10/01/18 10:58am Do you have a Directive to Physician? No 10/27/18 5:02pm Do you have a Medical Power of Watch And Clock Maker And Repairer? No 10/27/18 5:02pm Do you have an [...] rights and responsibilities? Yes 10/27/18 5:02pm 10/27/2018 [facility] Advance Directives Advance Directives Directive Response Recorded Date/Time Does the patient have an advance directive? No 10/01/18 10:58am If yes, is advance directive on file with [facility]? No 10/01/18 10:58am If not on file with [facility] will patient provide a copy? Yes 10/01/18 10:58am Do you have a Directive to Physician? No 09/30/18 1:01pm Do you have a Medical Power of Watch And Clock Maker And Repairer? No 09/30/18 1:01pm Do you have an [...] rights and responsibilities? Yes 09/30/18 1:01pm 10/02/2018 [facility] [facility] Functional Status No Data Provided for This Section
[2019-01-01] MEDS: SODIUM CHLORIDE 0.9% 1000ML 1,000 ML IV SCH (17:48)
[2019-01-01 20:40] VITALS: BP_SYST 207; BP_SYST 229; BP_DIAS 72; BP_DIAS 90
[2019-01-01 21:25] VITALS: BP 190/90
--- NOTE | 2019-01-01 21:25 | NUR ---
PATIENT RECEIVED FROM EMERGENCY DEPARTMENT PER STRETCHER AT 2039. SHE'S ALERT AND ORIENTED X3, MOSTLY FORGETFUL, NO RESPIRATORY DISTRESS OBSERVED. SKIN INTEGRITY INTACT, NO EDEMA NOTED TO THE EXTREMITIES AND SHE DENIES PAIN. SHE WAS ASSISTED TO THE RESTROOM TO VOID, SHE'S NOW BACK IN BED WITH CALL LIGHT IN EASY REACH AND BED ALARM ON. SHE COMPLAINT EARLIER THAT HER PHONE WAS MISPLACED HOWEVER SHE HAS FOUND IT IN THE BED WITH HER.
--- NOTE | 2019-01-01 22:20 | NUR ---
BLOOD PRESSURE 207/90, HEART RATE 67. BLOOD PRESSURE REASSESSED MANUALLY WITH READING OF 190/90 NO DISTRESS OBSERVED. CALL AND SPOKE WITH DR GRODON REGARDING THE ELEVATED BLOOD PRESSURE READINGS, NEW ORDERS RECEIVED.
[2019-01-01] MEDS: METOPROLOL SUCCINATE 25 MG TAB XL PO SCH (22:54)
[2019-01-01] MEDS: AMLODIPINE BESYLATE 5 MG TAB PO SCH (22:54)
[2019-01-02] VITALS (9 sets, daily range): BP systolic 123–205; BP diastolic 59–95
--- NOTE | 2019-01-02 00:54 | NUR ---
CONDITION STABLE WITHOUT ACUTE DISTRESS, BLOOD PRESSURE NOW 178/72, HEART RATE 70. CALL LIGHT WITHIN EASY REACH, BED ALARM ON.
--- NOTE | 2019-01-02 04:10 | NUR ---
PATIENT ASSISTED TO THE RESTROOM TO VOID, SHE'S NOW BACK IN BED. NO ACUTE DISTRESS OBSERVED, SHE DENIES PAIN. BED ALARM ON, CALL LIGHT WITHIN EASY REACH.
[2019-01-02 06:20] LABS: BASOPHILS # (AUTO) 0.1 (0.0-0.1); BASOPHILS % 0.7 % (0.0-1.0); EOSINOPHILS # (AUTO) 0.3 (0.0-0.4); EOSINOPHILS % 2.6 % (0.0-6.0); HEMATOCRIT 34.4 % (34.2-44.1); HEMOGLOBIN 11.3 g/dL (12.0-16.0); LYMPHOCYTES # (AUTO) 3.2 (1.0-3.2); LYMPHOCYTES % 26.6 % (18.0-39.1); MEAN CORPUSCULAR HEMOGLOBIN 27.5 pg (28-32); MEAN CORPUSCULAR HGB CONC 32.8 g/dL (31-35); MEAN CORPUSCULAR VOLUME 83.7 fL (81-99); MONOCYTES # (AUTO) 0.6 (0.2-0.8); MONOCYTES % 4.9 % (4.4-11.3); NEUTROPHILS # (AUTO) 7.8 (2.1-6.9); NEUTROPHILS % 64.6 % (38.7-80.0); PLATELET COUNT 371 x10e3/uL (140-360); RED BLOOD COUNT 4.11 x10e6/uL (3.6-5.1); RED CELL DISTRIBUTION WIDTH 13.8 % (11.7-14.4)
[2019-01-02 06:46] LABS: ANION GAP 11.6 mmol/L (8-16); CALCIUM 8.3 mg/dL (8.4-10.2); CREATININE, SERUM 2.03 mg/dL (0.57-1.11); POTASSIUM 3.6 mmol/L (3.5-5.1)
[2019-01-02] MEDS: SODIUM CHLORIDE 0.9% 1000ML 1,000 ML IV SCH ×3 (07:00→21:36)
--- NOTE | 2019-01-02 07:15 | NUR ---
PT RESTING IN BED [id number] PT IS IN NO S.S OF DISTRESS DENIES PAIN PT AMBULATES WITH STEADY GAIT, HOWEVER ONE PERSON ASSIST FOR FALL PRECAUTIONS BEING USED AT THIS TIME PT HAS A RIGHT AC 20 WITH NS AT 125CC.HR SITE IS CLEAN AND DRY WILL CONTINUE TO MONITOR PT CLOSELY, SIDE RAILSX2, BED WHEELS LOCKED, CALL LIGHT IS WITHIN EASY REACH, INSTRUCTED TO CALL FOR ASSISTANCE IF NEEDED
[2019-01-02] MEDS: ASPIRIN 325 MG TAB EC PO SCH (09:00)
[2019-01-02] MEDS ORDERED: ASPIRIN 325 MG TAB PO SCH (09:00)
[2019-01-02] MEDS: PANTOPRAZOLE SOD 40 MG TABEC PO SCH (09:33)
[2019-01-02] MEDS: LISINOPRIL 10 MG TAB PO SCH (09:34)
[2019-01-02] MEDS: ATORVASTATIN 40 MG TAB PO SCH ×3 (09:34→21:36)
[2019-01-02] MEDS: AMLODIPINE BESYLATE 5 MG TAB PO SCH (09:34)
[2019-01-02] MEDS: METOPROLOL SUCCINATE 25 MG TAB XL PO SCH ×2 (09:34→17:15)
--- NOTE | 2019-01-02 12:06 | Diagnostic Imaging Report ---
EXAMINATION: Brain MRI and MR angiogram of the [place] and Neck CLINICAL HISTORY: Left upper extremity weakness and numbness. TIA, acute renal failure. COMPARISON: Head CT of 01/01/2019 and brain MRI of 10/01/2018 TECHNIQUE: Brain: Sagittal T2; axial DWI, T2, FLAIR, T1-IR, T2 gradient echo; coronal FLAIR. MRAs: 3D TOF and 2D-TOF images were obtained of the brain and neck. Image quality: Motion artifact limits the evaluation of the MR angiogram of the neck. BRAIN MRI FINDINGS: Parenchyma: 1. Focal area of FLAIR hyperintensity and subtle restricted diffusion in the left splenium of the corpus callosum, likely a subacute infarction. 2. A gating of the scatter and periventricular abnormalities. Hypodense foci as well as in the giulia,, consistent with nonspecific chronic microvascular ischemic changes. 3. Chronic lacunar infarcts in the right frontal frontoparietal myles radiata, right striatocapsular (with associated mild ipsilateral Wallerian degeneration with FLAIR hyperintensity of the right cerebral peduncle), right putamen, and bilateral thalami. 4. No mass, hemorrhage, acute or chronic infarcts. Skull: Unremarkable. Vessels: Expected flow voids present in the major arteries and dural sinuses. Extra-axial spaces: No abnormal signal intensity or mass effect. Brain volume: Within normal limits for age. Ventricles: No hydrocephalus or displacement. Foramen magnum: Unremarkable. Sella: Unremarkable. Paranasal / mastoid sinuses: No significant inflammatory disease. MRA OF THE [place] : The distal internal carotid, distal vertebral, basilar, and cerebral arteries are patent. No significant stenosis, occlusion, aneurysm, or arteriovenous malformation is seen. Anatomic variation: Anterior Communicating Artery: Patent Posterior Communicating Arteries: Patent on the right with origin of the right ELECTRICIAN'S ASSISTANT, not well-visualized on the left Vertebral arteries: Codominant MRA OF THE NECK: If present, stenosis of the carotid bulbs is measured based on NASCET criteria i.e area of maximum stenosis compared to the cervical ICA distal to the bulb. Aortic arch and origin of the vessels: Unremarkable. Right Carotid Artery: The common carotid, carotid bulb, internal and external carotid arteries at the level of the neck are normal in caliber, and patent, no evidence of stenoses. Left Carotid Artery: The common carotid, carotid bulb, internal and external carotid arteries at the level of the neck are normal in caliber, and patent, no evidence of stenoses. Vertebral Arteries: Both are normal in morphology and caliber. Both are codominant. No significant stenosis is seen. IMPRESSION: Brain MRI: 1. Subacute ischemic insult along the left side of the splenium, which was not seen on MRI of 10/01/2018. 2. Persistent moderate chronic microvascular ischemic changes. 3. Unchanged multiple chronic lacunar infarct versus detail above . MRI the head and neck: No large vessel occlusion or hemodynamically significant stenosis of the carotid or vertebral arteries in the head or neck. Signed by: Dr. Cheyanne Lorenz M.D. on 01/02/2019 12:02 PM
--- NOTE | 2019-01-02 12:06 | Diagnostic Imaging Report ---
EXAMINATION: Brain MRI and MR angiogram of the [place] and [place]ck CLINICAL HISTORY: Left upper extremity weakness and numbness. TIA, acute renal failure. COMPARISON: Head CT of 01/01/2019 and brain MRI of 10/01/2018 TECHNIQUE: Brain: Sagittal T2; axial DWI, T2, FLAIR, T1-IR, T2 gradient echo; coronal FLAIR. MRAs: 3D TOF and 2D-TOF images were obtained of the brain and neck. Image quality: Motion artifact limits the evaluation of the MR angiogram of the neck. BRAIN MRI FINDINGS: Parenchyma: 1. Focal area of FLAIR hyperintensity and subtle restricted diffusion in the left splenium of the corpus callosum, likely a subacute infarction. 2. A gating of the scatter and periventricular abnormalities. Hypodense foci as well as in the giulia,, consistent with nonspecific chronic microvascular ischemic changes. 3. Chronic lacunar infarcts in the right frontal frontoparietal myles radiata, right striatocapsular (with associated mild ipsilateral Wallerian degeneration with FLAIR hyperintensity of the right cerebral peduncle), right putamen, and bilateral thalami. 4. No mass, hemorrhage, acute or chronic infarcts. Skull: Unremarkable. Vessels: Expected flow voids present in the major arteries and dural sinuses. Extra-axial spaces: No abnormal signal intensity or mass effect. Brain volume: Within normal limits for age. Ventricles: No hydrocephalus or displacement. Foramen magnum: Unremarkable. Sella: Unremarkable. Paranasal / mastoid sinuses: No significant inflammatory disease. MRA OF THE [place] : The distal internal carotid, distal vertebral, basilar, and cerebral arteries are patent. No significant stenosis, occlusion, aneurysm, or arteriovenous malformation is seen. Anatomic variation: Anterior Communicating Artery: Patent Posterior Communicating Arteries: Patent on the right with origin of the right TICKET TAKER FERRYBOAT, not well-visualized on the left Vertebral arteries: Codominant MRA OF THE NECK: If present, stenosis of the carotid bulbs is measured based on NASCET criteria i.e area of maximum stenosis compared to the cervical ICA distal to the bulb. Aortic arch and origin of the vessels: Unremarkable. Right Carotid Artery: The common carotid, carotid bulb, internal and external carotid arteries at the level of the neck are normal in caliber, and patent, no evidence of stenoses. Left Carotid Artery: The common carotid, carotid bulb, internal and external carotid arteries at the level of the neck are normal in caliber, and patent, no evidence of stenoses. Vertebral Arteries: Both are normal in morphology and caliber. Both are codominant. No significant stenosis is seen. IMPRESSION: Brain MRI: 1. Subacute ischemic insult along the left side of the splenium, which was not seen on MRI of 10/01/2018. 2. Persistent moderate chronic microvascular ischemic changes. 3. Unchanged multiple chronic lacunar infarct versus detail above . MRI the head and neck: No large vessel occlusion or hemodynamically significant stenosis of the carotid or vertebral arteries in the head or neck. Signed by: Dr. Cheyanne Lorenz M.D. on 01/02/2019 12:02 PM
--- NOTE | 2019-01-02 12:06 | Diagnostic Imaging Report ---
EXAMINATION: Brain MRI and MR angiogram of the [place] and [place]ck CLINICAL HISTORY: Left upper extremity weakness and numbness. TIA, acute renal failure. COMPARISON: Head CT of 01/01/2019 and brain MRI of 10/01/2018 TECHNIQUE: Brain: Sagittal T2; axial DWI, T2, FLAIR, T1-IR, T2 gradient echo; coronal FLAIR. MRAs: 3D TOF and 2D-TOF images were obtained of the brain and neck. Image quality: Motion artifact limits the evaluation of the MR angiogram of the neck. BRAIN MRI FINDINGS: Parenchyma: 1. Focal area of FLAIR hyperintensity and subtle restricted diffusion in the left splenium of the corpus callosum, likely a subacute infarction. 2. A gating of the scatter and periventricular abnormalities. Hypodense foci as well as in the giulia,, consistent with nonspecific chronic microvascular ischemic changes. 3. Chronic lacunar infarcts in the right frontal frontoparietal myles radiata, right striatocapsular (with associated mild ipsilateral Wallerian degeneration with FLAIR hyperintensity of the right cerebral peduncle), right putamen, and bilateral thalami. 4. No mass, hemorrhage, acute or chronic infarcts. Skull: Unremarkable. Vessels: Expected flow voids present in the major arteries and dural sinuses. Extra-axial spaces: No abnormal signal intensity or mass effect. Brain volume: Within normal limits for age. Ventricles: No hydrocephalus or displacement. Foramen magnum: Unremarkable. Sella: Unremarkable. Paranasal / mastoid sinuses: No significant inflammatory disease. MRA OF THE [place] : The distal internal carotid, distal vertebral, basilar, and cerebral arteries are patent. No significant stenosis, occlusion, aneurysm, or arteriovenous malformation is seen. Anatomic variation: Anterior Communicating Artery: Patent Posterior Communicating Arteries: Patent on the right with origin of the right CALL CENTER RECRUITER, not well-visualized on the left Vertebral arteries: Codominant MRA OF THE NECK: If present, stenosis of the carotid bulbs is measured based on NASCET criteria i.e area of maximum stenosis compared to the cervical ICA distal to the bulb. Aortic arch and origin of the vessels: Unremarkable. Right Carotid Artery: The common carotid, carotid bulb, internal and external carotid arteries at the level of the neck are normal in caliber, and patent, no evidence of stenoses. Left Carotid Artery: The common carotid, carotid bulb, internal and external carotid arteries at the level of the neck are normal in caliber, and patent, no evidence of stenoses. Vertebral Arteries: Both are normal in morphology and caliber. Both are codominant. No significant stenosis is seen. IMPRESSION: Brain MRI: 1. Subacute ischemic insult along the left side of the splenium, which was not seen on MRI of 10/01/2018. 2. Persistent moderate chronic microvascular ischemic changes. 3. Unchanged multiple chronic lacunar infarct versus detail above . MRI the head and neck: No large vessel occlusion or hemodynamically significant stenosis of the carotid or vertebral arteries in the head or neck. Signed by: Dr. Cheyanne Lorenz M.D. on 01/02/2019 12:02 PM
[2019-01-02] MEDS: CLONIDINE HCL 0.1 MG TAB PO PRN (12:15)
[2019-01-02] MEDS ORDERED: [UNRECOGNIZED DRUG - CODE] (12:41)
[2019-01-02] MEDS ORDERED: GLIPIZIDE5 MG PO (12:41)
[2019-01-02] MEDS ORDERED: HYDROCHLOROTHIA25 MG PO (12:41)
[2019-01-02] MEDS ORDERED: ALENDRONATE SOD70 MG (12:41)
[2019-01-02] MEDS ORDERED: TRAZODONE HCL50 MG PO (12:41)
--- NOTE | 2019-01-02 12:43 | History and Physical ---
The patient is a 63-year-old female, who comes in with generalized weakness. HISTORY OF PRESENTING ILLNESS: Ms. Anderson is with a history of strokes in the past with left-sided weakness, who is in usual state of health and the patient started to have some weakness and some paresthesias. The patient has had tingling in the left arm, which is residual. The tingling is increased and the patient came into the emergency room, was admitted for TIA, rule out CVA. PAST MEDICAL HISTORY: History of diabetes mellitus, history of hypertension, history of hyperlipidemia, history of CVA, history of right eye blindness, and history of reflux esophagitis. MEDICATIONS: Medicines she takes at home are amlodipine 5 mg daily, aspirin 325 mg daily, atorvastatin 80 mg daily, lisinopril 10 mg daily, and also metoprolol 25 mg and Protonix 40 mg q.a.m. PAST SURGICAL HISTORY: Noncontributory. SOCIAL HISTORY: No EtOH. No IV drug abuse. Has been walking with the help of physical therapy, has regained most of her strength on the left side and the patient is ambulatory, 100%. REVIEW OF SYSTEMS: Negative for chest pain. No shortness of breath. No nausea, vomiting, or diarrhea. No constipation. No rectal bleeding. No hematochezia. No hematemesis. No palpitations. Weakness and paresthesias as noted above on history of presenting illness. ALLERGIES: ALLERGIC TO DIPHENHYDRAMINE, IODINE, TOMATOES, AND VANCOMYCIN. PHYSICAL EXAMINATION: GENERAL: The patient is alert and oriented x3, in good spirits. The patient yesterday had emotional disturbances according to the nurses. VITAL SIGNS: The patient's temperature is 97.6, pulse of 65, respirations of 20, blood pressure is 176/77, and pulse oximetry of 96%. HEENT: Normocephalic and atraumatic. Pupils are equal to light and accommodation. Left-sided blindness. CVS: S1 and S2 normal. Regular rate and rhythm. ABDOMEN: Nontender and nondistended. LUNGS: Clear to auscultation bilaterally. EXTREMITIES: No clubbing, no cyanosis, no edema. NEUROLOGIC: Alert and oriented x3. Mood and affect are normal. Speech is normal. Cranial nerves are normal. Cerebellar findings, normal [id number] test. No motor focal deficits except for decreased strength 4/5 in the left upper extremity, otherwise within normal limits. EKG normal sinus rhythm with normal QRS complexes, normal ST-T changes, normal CBCs, normal chemistries. The patient's chemistry shows sodium is 141, potassium 3.6, chloride of 115, BUN 43, creatinine 2.026, calcium is 8.4. Coags within normal limits. Urine did show moderate amount of bacteria and today's white count did show elevated leukocytosis. IMAGING STUDIES: Brain CT shows scattered white matter hyperdensities, most likely chronic microvascular changes, chronic lacunar infarct. No massive hemorrhage seen in the CT. The patient's chest x-ray was no focal pneumonia or pulmonary edema. ASSESSMENT: 63-year-old lady with history of cerebrovascular accident, comes with paresthesias and weakness. PLAN: 1. Plan is to do another MRI and MRA of the neck. 2. Echocardiogram will be repeated. 3. The patient will be started back on medication, . 4. Acute kidney injury. Fluid resuscitation will be continued. Blood pressure will be trended on the higher side. 5. Check her hemoglobin A1c. 6. Check her cholesterol values. 7. Restart her simvastatin or statin. Continue to monitor the patient. Physical therapy to monitor the patient. Blood pressure to be slowly lowered. Further recommendation per clinical course. We will continue to monitor the patient. MD BBOO Jackson/MODL /[id number]
--- NOTE | 2019-01-02 16:41 | NUR ---
MD GORDON NOTIFIED OF MRI RESULT OR NEURO CX. CALLED NEW CX. SPOKE WITH MD MUNOZ REGARDING MRI RESULT NO ORDERS RECEIVED AT THIS TIME
--- NOTE | 2019-01-02 19:45 | NUR ---
PATIENT ASSISTED TO THE RESTROOM TO VOID, SHE'S NOW BACK IN BED WITH CALL LIGHT IN EASY REACH AND BED ALARM ON. SKIN INTEGRITY INTACT, FAMILY MEMBERS VISITING WITH THE PATIENT. NO RESPIRATORY DISTRESS OBSERVED, SHE DENIES PAIN.
[2019-01-02] MEDS: HEPARIN SOD (PORCINE) 5,000 UNIT/ML VIAL SC SCH (21:44)
--- NOTE | 2019-01-02 23:53 | NUR ---
PATIENT RESTING IN BED, NO RESPIRATORY DISTRESS OBSERVED AND SHE DENIES PAIN. SKIN INTEGRITY INTACT, SHE'S INSTRUCTED TO CALL FOR ASSISTANCE NEEDED.
[2019-01-03] VITALS (8 sets, daily range): BP systolic 125–175; BP diastolic 55–78
[2019-01-03] MEDS: SODIUM CHLORIDE 0.9% 1000ML 1,000 ML IV SCH ×2 (00:50→06:17)
--- NOTE | 2019-01-03 02:44 | NUR ---
ROUNDS MADE, PATIENT OBSERVED SOUNDLY ASLEEP WITHOUT RESPIRATORY DISTRESS. BED ALARM ON, CALL LIGHT WITHIN EASY REACH.
--- NOTE | 2019-01-03 03:36 | Consultation ---
DATE OF CONSULTATION: 01/01/2019 Neurology Consult Note HISTORY OF PRESENT ILLNESS: Ms. Anderson is a 63-year-old right-hand dominant woman with past medical history significant for hypertension, hyperlipidemia, diabetes mellitus, and a prior stroke with residual left hemiparesis, admitted to [facility] on January 01, 2019, with symptoms suspicious for a transient ischemic attack as well as hypertensive emergency. On the day of admission, Ms. Anderson awoke with weakness affecting her left arm, which progressively worsened throughout the day. The patient does not report a visual field cut or other disturbance, dysarthria, aphasia, facial droop, weakness in the left leg, numbness, poor balance, gait impairment, dizziness, or confusion associated with the left arm weakness. Ms. Anderson presented to the emergency center at [facility] for further evaluation of her symptoms. While in the emergency center, she reports her left arm weakness significantly improved. Documentation of the patient's neurological examination in the emergency center at [facility] is unavailable for review at this time. A CT of the brain without contrast was performed. This study did not reveal evidence of recent large territorial ischemia or hemorrhage. Ms. Anderson was then admitted to [facility] for further evaluation and treatment of her symptoms, including acute on chronic kidney injury. Ms. Anderson previously experienced a stroke in June of 2018 with residual left hemiparesis. For stroke prophylaxis, the patient was prescribed aspirin 325 mg by mouth daily. Initially, Ms. Anderson endorses her compliance with this medication. Subsequently, she reports not knowing which medication she takes every day because her daughter administers the medication. Review of the patient's medications, which are kept in a bag in the patient's room reveals no aspirin, indicating Ms. Anderson has probably not taken the medicine for some time. REVIEW OF SYSTEMS: Weakness of the left arm. Otherwise, a 12-point review of systems is negative. PAST MEDICAL HISTORY: Hypertension, hyperlipidemia, diabetes mellitus, gastroesophageal reflux disease, prior stroke with residual left hemiparesis, and osteoporosis. PAST SURGICAL HISTORY: Partial hysterectomy, bilateral tubal ligation, appendectomy, cholecystectomy, bilateral cataract removal. PAST HOSPITALIZATIONS: Surgeries/procedures as listed, stroke, hypoglycemia, multiple other admissions for varying diagnoses. FAMILY MEDICAL HISTORY: Hypertension, hyperlipidemia, and diabetes mellitus. SOCIAL HISTORY: Ms. Anderson is a . She is retired. The patient does report a prior history of tobacco use, but quit smoking following her stroke in June 2018. The patient does not report current or prior alcohol or recreational drug use. HOME MEDICATIONS: Reviewed. Please see the list of home medications available in the electronic medical record. HOSPITAL MEDICATIONS: Reviewed. Please see list of hospital medications available in the electronic medical record. ALLERGIES: DIPHENHYDRAMINE, VANCOMYCIN. TOMATO. NO KNOWN ALLERGY TO LATEX. THE PATIENT DOES HAVE A DOCUMENTED ALLERGY TO IODINE. PHYSICAL EXAMINATION: VITAL SIGNS: Height 62 inches, weight 160 pounds, BMI 29.3 kg/m2 BP 145/65 mmHg P 64 beats per minute RR 18 breaths per minutes O2 Saturation 99% on room air. GENERAL: The patient is awake and alert, does not appear distressed. Overweight. HEENT: Normocephalic, atraumatic. Pupils are surgical. Moist mucous membranes. NECK: Supple. No appreciable thyromegaly. No appreciable carotid bruits. CARDIOVASCULAR: S1 and S2, regular rate and rhythm. No murmurs, rubs, or gallops. RESPIRATORY: Clear to auscultation bilaterally. No wheezes, rhonchi, or rales. EXTREMITIES: The skin is warm and dry. No clubbing, cyanosis, or edema. The posterior tibial and dorsalis pedis pulses are 1+ and symmetric. SKIN: No rashes or lesions. NEUROLOGIC: Memory/Attention: The patient is awake and alert, oriented to person, place, time, and situation. Cranial Nerves: Cranial nerve I - not tested. Cranial nerves II, III, IV, and - pupils are surgical. Extraocular movements intact. No nystagmus. Cranial nerve V - sensation to light touch and pinprick is intact in the bilateral V1 through V3 distributions. Strength in the temporalis and masseter muscles is within normal limits. Cranial nerve VII - the face is asymmetric on the left as are all facial movements. Mild left central facial weakness is noted. Cranial nerve VIII - hearing is intact to finger rub bilaterally. Cranial nerve IX, X - the soft palate elevates equally and symmetrically. Cranial nerve XI - normal strength of the bilateral sternocleidomastoid and trapezius muscles. Cranial nerve XII - tongue protrudes midline and moves symmetrically from [id number]. Strength: Bulk is normal. Strength is 5/5 bilateral deltoids, biceps, triceps, wrist flexors and extensors, finger flexors and extensors, intrinsic hand muscles, hip flexors, knee flexors and extensors, ankle dorsiflexion and plantar flexion, and intrinsic foot muscles except as follows: Right arm flexors-4+/5, right arm extensors-4/5. Tone is normal in arms and both legs. DTRs: Deeptendon reflexes are 3+ at the left triceps, biceps, and brachioradialis. Deep tendonreflexes are 2+ at the right triceps, biceps, and brachioradialis. Deep tendon reflexesare 1+ and symmetric at the patellas. Deep tendon reflexes are trace and symmetric atthe Achilles. Plantar responses are flexor on the right and extensor on the left. Sensation: Sensation is intact to light touch and pinprick in both arms and both legs. Cerebellar: [id number]-wdvk-[id number] and heel-martinez movements are intact without dysmetria or impairment. Gait: Deferred. Speech: Spontaneous speech is normal without appreciable dysarthria or aphasia. Repetition is intact. Involuntary movements: None. Pronator Drift: None. LABORATORY DATA: The most recent basic metabolic panel is significant for an elevated chloride of 115, carbon dioxide of 18, BUN of 29, creatinine of 2.03, estimated GFR of 25, and calcium of 8.3. A liver function panel collected on January 01, 2019, is significant for a total protein of 5.6, albumin of 2.1. Cardiac enzymes are negative x1. Hemoglobin A1c 5.5. Total cholesterol 149, triglycerides 166, LDL cholesterol 86, HDL cholesterol 30. CBC with differential and platelets reveals mildly elevated white blood cell count of 12.10 with a normal differential. The hemoglobin and hematocrit are 11.3 and 34.4, respectively. The platelet count is 371. A coagulation profile is within normal limits. A urinalysis collected on January 01, 2019, is significant for 2+ protein, 2+ glucose, 1+ blood, 6-10 red blood cells, 0-5 white blood cells, moderate urine epithelial cells, and moderate urine bacteria. DIAGNOSTIC STUDIES: Electrocardiogram of 01/01/2019: Normal sinus rhythm at [address] of the brain without contrast 01/01/2019: On my review, there is no evidence of recent large territorial ischemia or hemorrhage. Chronic lacunar infarcts are seen in the right frontal myles radiata, right striatocapsular region, right putamen, and bilateral thalami. Cerebral volumes are appropriate for age. There are scattered white matter hypodensities compatible with [id number] chronic small-vessel ischemic disease. Chest x-ray 01/01/2019: No focal pneumonia or pulmonary edema. Echocardiogram 01/02/2019: Ejection fraction 45% to 50%. Concentric left ventricular hypertrophy. Trace aortic insufficiency and tricuspid regurgitation. Trace to mild mitral regurgitation. MRI of the brain without contrast 01/02/2019: A subacute ischemic stroke is seen along the left side of the splenium. Multiple chronic lacunar strokes are seen in the right frontoparietal myles radiata, right striatocapsular region, right putamen, and bilateral thalami. Cerebral volumes are appropriate for age. There are scattered and confluent T2/FLAIR hyperintense foci of the supratentorial and infratentorial white matter compatible with moderate chronic small vessel ischemic disease. ASSESSMENT AND PLAN: Ms. Anderson is a 63-year-old woman with multiple vascular risk factors, admitted to [facility] on January 01, 2019, with a subacute stroke and acute on chronic kidney injury. Ms. Anderson has undergone a thorough neurological examination with findings detailed above. Her laboratory data and other diagnostic studies have been reviewed and are documented above. RECOMMENDATIONS: As follows: 1. Treatment with aspirin 325 mg by mouth daily will be resumed for stroke prophylaxis. As it appears the patient has not taken aspirin for some time, change to another anti-platelet or anticoagulant medication is not indicated. 2. The patient's blood pressure may be gradually normalized. Her goal blood pressure prior to discharge is less than 140/90 mmHg. Continue treatment with current antihypertensive medications. Monitor vital signs per unit protocol. 3. The patient's goal total cholesterol is less than 200 with an LDL of less than 70. The patient's total cholesterol is at goal, but the LDL is approximately 20 points above goal. Treatment with the patient's home medication of atorvastatin will be continued, but the dose will be increased to 80 mg by mouth at bedtime daily. Recheck a lipid panel in 8 weeks. 4. The patient's goal hemoglobin A1c is less than 7.0. Ms. Anderson's hemoglobin A1c is at goal. Continue current medications for diabetes. Tight glycemic control is recommended while the patient is hospitalized. 5. Speech and Physical therapy evaluations will be ordered. 6. GI prophylaxis with Protonix 40 mg by mouth daily. DVT prophylaxis with heparin 5000 units subcutaneously q.12 hours. 7. Defer treatment of the remaining medical comorbidities to the primary and other services following the patient. Thank you for this consultation. I will continue to follow the patient while she remains in the hospital. TIME SPENT: 50 minutes. Thelma Ley MD CP/ALBERTO /[id number] TRACE
--- NOTE | 2019-01-03 04:08 | NUR ---
ASSISTED WITH ADLS, BED ALARM ON, CALL LIGHT WITHIN EASY REACH.
[2019-01-03 06:17] LABS: BASOPHILS # (AUTO) 0.1 (0.0-0.1); BASOPHILS % 0.7 % (0.0-1.0); EOSINOPHILS # (AUTO) 0.4 (0.0-0.4); EOSINOPHILS % 3.4 % (0.0-6.0); HEMATOCRIT 32.9 % (34.2-44.1); LYMPHOCYTES # (AUTO) 2.7 (1.0-3.2); LYMPHOCYTES % 24.9 % (18.0-39.1); MEAN CORPUSCULAR HGB CONC 33.4 g/dL (31-35); MEAN CORPUSCULAR VOLUME 83.7 fL (81-99); MONOCYTES # (AUTO) 0.6 (0.2-0.8); MONOCYTES % 5.8 % (4.4-11.3); NEUTROPHILS # (AUTO) 6.9 (2.1-6.9); NEUTROPHILS % 64.6 % (38.7-80.0); PLATELET COUNT 382 x10e3/uL (140-360); RED BLOOD COUNT 3.93 x10e6/uL (3.6-5.1); RED CELL DISTRIBUTION WIDTH 13.3 % (11.7-14.4)
[2019-01-03 06:34] LABS: ALBUMIN 1.7 g/dL (3.5-5.0); ALBUMIN/GLOBULIN RATIO 0.6 (0.8-2.0); ALKALINE PHOSPHATASE 64 IU/L (40-150); ANION GAP 9.8 mmol/L (8-16); BLOOD UREA NITROGEN 35 mg/dL (7-26); BUN/CREATININE RATIO 18 (6-25); CALCIUM 8.1 mg/dL (8.4-10.2); CARBON DIOXIDE 18 mmol/L (22-29); CHLORIDE 118 mmol/L (98-107); CREATININE, SERUM 1.98 mg/dL (0.57-1.11); EST GLOMERULAR FILTRATION RATE 25 ML/MIN (60-); GLUCOSE 117 mg/dL (74-118); POTASSIUM 3.8 mmol/L (3.5-5.1); SODIUM 142 mmol/L (136-145)
[2019-01-03 06:42] LABS: ALANINE AMINOTRANSFERASE < 6 IU/L (0-55)
[2019-01-03] MEDS ORDERED: DEXTROSE 50% SYRINGE 50 ML IV PRN (07:15)
[2019-01-03] MEDS: INSULIN REGULAR, HUMAN 100 UNIT/1 ML 3ML VIAL SQ SCH ×4 (07:30→21:00)
--- NOTE | 2019-01-03 07:48 | Progress Note ---
DATE: SUBJECTIVE: The patient had an MRI yesterday. CT scan was negative for stroke. MRI was positive for subacute stroke. The patient is doing better. No complaints except for some nausea, which has been taking care of antinausea medications. No chest pains. No shortness of breath. The patient has no additional weakness that she notices. OBJECTIVE: VITAL SIGNS: Today temperature is 97.0, pulse is 67, respirations of 18, blood pressure is 161/78. HEENT: Normocephalic, atraumatic. Pupils reactive to light and accommodation. CVS: S1, S2 normal. Regular rate and rhythm. RESPIRATORY: Clear to auscultation. No wheezes. No rhonchi. No rales. EXTREMITIES: Normal pulses. No edema. No lesions noted. No clubbing noted too. NEUROLOGIC: The patient is alert and oriented x3. Complete neurological examination has been done by neuro. The patient's left-sided strength is decreased from the previous stroke. Speech is spontaneous. No involuntary movement and no pronator drift. LABORATORY DATA: The patient's laboratory data today shows white count 10.71, has been down from 12 yesterday; hemoglobin of 11; hematocrit of 32.9; platelet count is 382, trending high. The patient's coags are normal. IMAGING STUDIES: Imaging studies from yesterday. MRI of the brain shows subacute ischemic insult in the left side of the splenium, persist and moderate chronic microvascular changes. Head MRA shows the same subacute insult and echocardiogram done yesterday shows an EF of 45% to 50%, concentric LVH and trace TR, and mild MR. ASSESSMENT: 1. Subacute stroke. The patient's statins have increased. 2. For diabetes, her hemoglobin A1c is on goal. We will continue to monitor the patient. 3. Hypertension. The patient has concentric LVH and her blood pressure is optimized. We will keep her blood pressure at this point. IV fluids can be discontinued. The patient needs physical therapy. 4. Her acute renal failure has improved. The patient's creatinine is 1.98. PLAN: Plan is to continue monitor the patient. We will continue trending her creatinine. We will decrease the fluids to 70 mL an hour. Check BMP tomorrow. Physical therapy and occupational therapy. Possible cardiac consult with Dr. Phan, who has seen her previously. LDL is 86, and her statin has been increased. Further recommendation per clinical course. We will continue to monitor the patient along with consultants. MD BOBO Jackson/ALBERTO /[id number]
[2019-01-03] MEDS ORDERED: ONDANSETRON HCL INJ 2MG/ML 2ML 2 MG/ML VIAL IV PRN (08:30)
[2019-01-03] MEDS: GLIPIZIDE 5 MG TAB PO SCH (09:12)
[2019-01-03] MEDS: LISINOPRIL 10 MG TAB PO SCH (09:12)
[2019-01-03] MEDS: AMLODIPINE BESYLATE 5 MG TAB PO SCH (09:12)
[2019-01-03] MEDS: METOPROLOL SUCCINATE 25 MG TAB XL PO SCH ×2 (09:12→17:31)
[2019-01-03] MEDS: ASPIRIN 325 MG TAB EC PO SCH (09:12)
[2019-01-03] MEDS: HEPARIN SOD (PORCINE) 5,000 UNIT/ML VIAL SC SCH ×2 (09:12→21:28)
[2019-01-03] MEDS: PANTOPRAZOLE SOD 40 MG TABEC PO SCH (09:12)
--- NOTE | 2019-01-03 11:48 | NUR ---
LOW BLOOD SUGAR OF 58 NOTED. GIVEN ORANGE JUICE WITH 2 PACKS OF SUGAR PT [id number]. DENIES ANY DISTRESS OR DISCOMFORT. LUNCH TRAYS BEING DELIVERED AT THIS TIME
[2019-01-03] MEDS: CLONIDINE HCL 0.1 MG TAB PO PRN (17:31)
[2019-01-03] MEDS: ATORVASTATIN 40 MG TAB PO SCH (21:09)
--- NOTE | 2019-01-03 21:29 | NUR ---
PATIENT C/O PAINFUL SENSATION AT THE IV SITE, IV REMOVED WITH TIP INTACT. IV #22 GAUGE INSERTED TO THE RIGHT WRIST, PROCEDURE TOLERATED WELL, IV FLUID INFUSING ORDERED.
[2019-01-04] VITALS (7 sets, daily range): BP systolic 139–176; BP diastolic 64–94
--- NOTE | 2019-01-04 01:24 | NUR ---
PATIENT ASSISTED WITH ADLS, NO ACUTE DISTRESS OBSERVED AND SHE DENIES PAIN. BED ALARM ON, CALL LIGHT WITHIN EASY REACH.
--- NOTE | 2019-01-04 04:06 | NUR ---
PATIENT ASSISTED TO THE RESTROOM AND SHE'S NOW BACK IN BED. NO DISTRESS OBSERVED, SHE DENIES PAIN. BED ALARM ON, CALL LIGHT WITHIN EASY REACH.
[2019-01-04 06:08] LABS: ANION GAP 10.6 mmol/L (8-16); CALCIUM 7.9 mg/dL (8.4-10.2); CREATININE, SERUM 1.78 mg/dL (0.57-1.11); POTASSIUM 3.6 mmol/L (3.5-5.1)
[2019-01-04] MEDS: INSULIN REGULAR, HUMAN 100 UNIT/1 ML 3ML VIAL SQ SCH ×4 (07:30→21:00)
[2019-01-04] MEDS: GLIPIZIDE 5 MG TAB PO SCH (07:52)
[2019-01-04] MEDS: HEPARIN SOD (PORCINE) 5,000 UNIT/ML VIAL SC SCH ×2 (09:07→21:32)
[2019-01-04] MEDS: ASPIRIN 325 MG TAB EC PO SCH (09:53)
[2019-01-04] MEDS: METOPROLOL SUCCINATE 25 MG TAB XL PO SCH ×2 (09:54→17:12)
[2019-01-04] MEDS: PANTOPRAZOLE SOD 40 MG TABEC PO SCH (09:54)
[2019-01-04] MEDS: AMLODIPINE BESYLATE 5 MG TAB PO SCH (09:54)
[2019-01-04] MEDS: LISINOPRIL 10 MG TAB PO SCH (09:54)
[2019-01-04] MEDS ORDERED: LISINOPRIL 10 MG TAB PO ONE (11:00)
--- NOTE | 2019-01-04 11:03 | Progress Note ---
DATE: SUBJECTIVE: The patient is a 63-year-old lady, who comes in with subacute stroke. The patient is currently having some nausea, which dissipated yesterday, but is back again. No chest pain. No shortness of breath. No nausea, vomiting, or diarrhea. No additional weakness. The patient has slept well and blood pressure is running a little high. OBJECTIVE: VITAL SIGNS: Temperature is 97.2, pulse of 64, respirations of 18, blood pressure is 139/64. HEENT: Normocephalic, atraumatic. Pupils are reactive to light and accommodation. CVS: S1, S2 normal. Regular rate and rhythm. ABDOMEN: Nontender and nondistended. EXTREMITIES: No clubbing, no cyanosis, no edema. NEUROLOGIC: Left-sided weakness noted, this is from the previous stroke. The patient's gag reflex is normal. LABORATORY VALUES: There are none today. MICROBIOLOGY: Urine culture secondary to positive leukocyte esterase, negative cultures so far. ASSESSMENT: 1. Subacute stroke. The patient's statins have been increased. Continue with aspirin. 2. Diabetes. A1c is under goal. Continue with glimepiride. 3. Hypertension. The patient has been optimized on her medications. Left ventricular hypertrophy noted on echo. 4. The patient has acute renal failure. Creatinine today is still pending. PLAN: Plan is to continue to monitor the patient. Physical therapy will be started tomorrow. Possible discharge in 1 to 2 days. The patient is to follow up with her primary care physician and also with her neurologist on an outpatient basis. Aspirin and higher dose of statin have been instituted. MD BOBO Jackson/MODL /[id number]
[2019-01-04] MEDS: SODIUM CHLORIDE 0.9% 1000ML 1,000 ML IV SCH ×2 (11:37→14:13)
[2019-01-04] MEDS: ATORVASTATIN 40 MG TAB PO SCH (21:32)
[2019-01-05 05:26] LABS: BASOPHILS # (AUTO) 0.1 (0.0-0.1); BASOPHILS % 0.8 % (0.0-1.0); EOSINOPHILS # (AUTO) 0.4 (0.0-0.4); EOSINOPHILS % 3.3 % (0.0-6.0); HEMATOCRIT 33.2 % (34.2-44.1); HEMOGLOBIN 10.9 g/dL (12.0-16.0); LYMPHOCYTES # (AUTO) 3.3 (1.0-3.2); MEAN CORPUSCULAR HEMOGLOBIN 27.7 pg (28-32); MEAN CORPUSCULAR HGB CONC 32.8 g/dL (31-35); MEAN CORPUSCULAR VOLUME 84.5 fL (81-99); MONOCYTES # (AUTO) 0.6 (0.2-0.8); MONOCYTES % 5.6 % (4.4-11.3); NEUTROPHILS # (AUTO) 6.6 (2.1-6.9); NEUTROPHILS % 59.9 % (38.7-80.0); PLATELET COUNT 363 x10e3/uL (140-360); RED BLOOD COUNT 3.93 x10e6/uL (3.6-5.1); RED CELL DISTRIBUTION WIDTH 13.5 % (11.7-14.4)
[2019-01-05 05:50] LABS: ANION GAP 10.5 mmol/L (8-16); CREATININE, SERUM 1.77 mg/dL (0.57-1.11); POTASSIUM 3.5 mmol/L (3.5-5.1)
[2019-01-05] MEDS ORDERED: GLIPIZIDE 5 MG TAB PO SCH (07:30)
[2019-01-05] MEDS: INSULIN REGULAR, HUMAN 100 UNIT/1 ML 3ML VIAL SQ SCH ×2 (07:30→11:30)
--- NOTE | 2019-01-05 07:47 | Progress Note ---
DATE: SUBJECTIVE: The patient is a 63-year-old lady with a history of stroke. The patient had a subacute stroke and currently asymptomatic. Continues to improve. Physical therapy has not worked with her. We will start physical therapy today. MEDICATIONS: Amlodipine, aspirin, atorvastatin, clonidine, insulin, lisinopril, and pantoprazole. OBJECTIVE: VITAL SIGNS: Temperature is 97.2, pulse is 75, blood pressure is 172/77. HEENT: Normocephalic, atraumatic. Facial droop present. CVS: S1 and S2 normal. Regular rate and rhythm. ABDOMEN: Nontender, nondistended. EXTREMITIES: No clubbing, no cyanosis, no edema. NEUROLOGIC: Left-sided weakness present and continues to be there, baseline. LABORATORY VALUES: White count is 11,000, hemoglobin of 13.9, hematocrit of 33.2, and platelet count is 363. Chemistries show sodium of 142, potassium 3.5, BUN of 25, creatinine of 1.77, calcium is 8.0. ASSESSMENT: 1. Subacute stroke. The patient needs to start on physical therapy today. PT to assess her functionality and possible discharge today. 2. Diabetes. Continue on glimepiride. 3. Hypertension. Continue antihypertensive medications. 4. The patient's acute renal failure has come back to her baseline. 5. The patient has chronic renal failure. 6. Hyperlipidemia. Increasing statin on discharge. Further recommendation per clinical course. The patient can be discharged today if physical therapy has worked with her and also Home Health has been arranged. MD BOBO Jackson/ALBERTO /[id number]
[2019-01-05 07:54] VITALS: BP 163/71
[2019-01-05] MEDS: HEPARIN SOD (PORCINE) 5,000 UNIT/ML VIAL SC SCH (09:00)
[2019-01-05] MEDS ORDERED: LISINOPRIL 20 MG TAB PO SCH (09:00)
[2019-01-05] MEDS ORDERED: LISINOPRIL 10 MG TAB PO SCH (09:00)
[2019-01-05] MEDS: AMLODIPINE BESYLATE 5 MG TAB PO SCH (09:01)
[2019-01-05] MEDS: PANTOPRAZOLE SOD 40 MG TABEC PO SCH (09:01)
[2019-01-05] MEDS: METOPROLOL SUCCINATE 25 MG TAB XL PO SCH (09:01)
[2019-01-05] MEDS: ASPIRIN 325 MG TAB EC PO SCH (09:01)
[2019-01-05 09:05] VITALS: BP 163/71
[2019-01-05 11:23] VITALS: BP 131/85
--- NOTE | 2019-01-05 11:30 | NUR ---
FSBG 61 orange juice given Addendum: 01/05/19 at 1217 by JAMAR UNDERWOOD RN FSBG 62
--- NOTE | 2019-01-05 12:10 | NUR ---
FSBG 71
--- NOTE | 2019-01-05 12:16 | NUR ---
aware of FSBG and aware patient has been cleared by . See orders
[2019-01-05] MEDS ORDERED: GLIPIZIDE5 MG PO (12:31)
[2019-01-05] MEDS ORDERED: atorvastatin PO (12:37)
--- NOTE | 2019-01-05 12:39 | NUR ---
CM SPOKE TO PATIENT AT BEDSIDE REGARDING HOME HEALTH ORDER AND [facility] PRIOR TO DISCHARGE. PATIENT AWARE OF ORDER AND GIVEN CHOICES FOR HOME HEALTH AND DME COMPANIES. PATIENT REQUESTED DURAMEDIC THROUGH HOSPITAL. DURAMEDIC FORM COMPLETED, STAPLED TO FACESHEET AND ORDER THEN SIGNED BY PATIENT. PENDING SIGNATURE FROM PHYSICIAN. CHARGE NURSE, SANT[place] AWARE. PATIENT GIVEN CHOICES FOR HOME HEALTH COMPANIES AND SIGNED [facility]. CLINICAL SENT TO [facility] HOME HEALTH COMPANY: [facility] (P) [phone] (F) [phone]
--- NOTE | 2019-01-05 12:43 | NUR ---
DISCHARGE DISPOSITION PATIENT DISCHARGING HOME WITH ROLLING WALKER FROM [facility] FROM THE FOLLOWING COMPANY: [facility] (P) [phone] (F) [phone] PATIENT AWARE SHE WILL RECEIVE CALL WITHIN 48 HRS TO SCHEDULE TIME AND DATE FOR EVALUATION. SHE ENCOURAGED TO CALL CM IF SHE DOES NOT. PATIENT GIVEN CM CONTACT INFORMATION
--- NOTE | 2019-01-05 12:45 | NUR ---
FSBG 125. NO s/s of acute distress noted
--- NOTE | 2019-01-05 13:11 | NUR ---
right wrist IV discontinued. No signs of infiltration noted. 2x2 gauze and tape placed. Taken via wheelchair by PCT to personal car. Accompanied by caregiver. AAOX3 to time, person,place. Respirations even and unlabored. Discharge instructions, rx, and all personal belongings taken with patient.
== END 2019-01-05 13:11 | disposition home health service (06) | DRG 65 ==
LOC: ER 12:45 → ERHOLD 16:57 → MED/SURG 20:40
PROVIDERS: ADMIT Family Medicine; ATTEND Family Medicine
DX: I63.9 Cerebral infarction, unspecified (principal); I69.354 Hemiplegia and hemiparesis following cerebral infarction affecting left non-dominant side; N17.9 Acute kidney failure, unspecified; I16.1 Hypertensive emergency; E11.9 Type 2 diabetes mellitus without complications; I10 Essential (primary) hypertension; E78.5 Hyperlipidemia, unspecified; H54.62 Unqualified visual loss, left eye, normal vision right eye; R53.1 Weakness; H53.9 Unspecified visual disturbance
CPT/HCPCS: 36415; 70450; 70544; 70547; 70551; 71045; 80048; 80053; 80061; 81001; 82550; 82553; 82948; 83036; 84484; 85025; 85610; 85730; 87086; 92523; 93005; 93306; 96372; 97139; 99284; J1644; J2405; J7030

== ENCOUNTER 2019-08-10 11:27 | Observation (INO) | payer MEDICARE, OTHER ==
[~2019-08-10] VITALS: Ht 157.5 cm; Wt 64.1 kg
[~2019-08-10 11:27] MED LIST changes: +ALENDRONATE SOD70 MG; +GLIPIZIDE5 MG PO; +HYDROCHLOROTHIA25 MG PO; +TRAZODONE HCL50 MG PO; +[UNRECOGNIZED DRUG - CODE]; +atorvastatin PO
[2019-08-10] MEDS ORDERED: DIATRIZOATE MEGL/DIATRIZOA SOD 30 ML BTL PO ONE (11:58)
--- NOTE | 2019-08-10 13:43 | Diagnostic Imaging Report ---
Exam: KUB - 2 views Indication: PEG tube placement Comparison: None Findings: Portable abdominal radiograph following contrast injection through the percutaneous gastrostomy tube demonstrates opacification of the stomach and proximal duodenum, confirming intraluminal placement of the gastrostomy tube. No extraluminal contrast visualized. Nonobstructive bowel gas pattern. No free air. Mild degenerative changes of the visualized spine. Tunneled hemodialysis catheter partially visualized. Impression: Contrast injection through gastrostomy tube demonstrates intraluminal position without extraluminal contrast opacification. Signed by: Jasmeet Negrete MD on 08/10/2019 1:41 PM
[2019-08-10 21:16] VITALS: BP_SYST 136; BP_SYST 142; BP_DIAS 74; BP_DIAS 83
--- NOTE | 2019-08-10 21:16 | Diagnostic Imaging Report ---
EXAM: CHEST SINGLE (PORTABLE) DATE: 08/10/2019 7:57 PM INDICATION: PEG tube dysfunction ^PRE-OP COMPARISON: Chest x-ray, 07/09/2019 FINDINGS: Lines and tubes: Stable appearance of tunneled right IJ dialysis catheter. Heart size normal. No focal pulmonary opacity, pleural effusion or pneumothorax. Upper abdomen unremarkable. No acute bony abnormality. Surgical clips are seen in the upper abdomen. IMPRESSION: 1. No evidence for acute disease. 2. Stable right dialysis catheter. Signed by: Dr. Gentry Atwood M.D. on 08/10/2019 9:14 PM
[2019-08-10 21:24] VITALS: BP 136/83
[2019-08-10 23:08] LABS: BASOPHILS # (AUTO) 0.1 (0.0-0.1); BASOPHILS % 0.7 % (0.0-1.0); EOSINOPHILS # (AUTO) 0.2 (0.0-0.4); EOSINOPHILS % 2.2 % (0.0-6.0); HEMATOCRIT 41.2 % (34.2-44.1); LYMPHOCYTES # (AUTO) 2.4 (1.0-3.2); LYMPHOCYTES % 22.9 % (18.0-39.1); MEAN CORPUSCULAR HEMOGLOBIN 27.8 pg (28-32); MEAN CORPUSCULAR HGB CONC 31.6 g/dL (31-35); MEAN CORPUSCULAR VOLUME 88.2 fL (81-99); MONOCYTES # (AUTO) 0.7 (0.2-0.8); MONOCYTES % 6.5 % (4.4-11.3); NEUTROPHILS # (AUTO) 7.1 (2.1-6.9); NEUTROPHILS % 67.2 % (38.7-80.0); PLATELET COUNT 472 x10e3/uL (140-360); RED BLOOD COUNT 4.67 x10e6/uL (3.6-5.1); RED CELL DISTRIBUTION WIDTH 16.4 % (11.7-14.4)
[2019-08-10 23:18] LABS: INR 0.96; PROTHROMBIN TIME 13.3 seconds (11.9-14.5)
[2019-08-10 23:29] LABS: ALBUMIN/GLOBULIN RATIO 0.6 (0.8-2.0); ANION GAP 16.1 mmol/L (8-16); CALCIUM 7.9 mg/dL (8.4-10.2); CREATININE, SERUM 4.79 mg/dL (0.57-1.11); POTASSIUM 3.1 mmol/L (3.5-5.1)
[2019-08-11] VITALS (7 sets, daily range): BP systolic 109–177; BP diastolic 67–80
[2019-08-11] MEDS: PANTOPRAZOLE 40 MG 10ML VIAL IV SCH ×2 (01:25→12:35)
[2019-08-11] MEDS ORDERED: NIFEDIPINE20 MG PEG (01:31)
[2019-08-11] MEDS ORDERED: CLOPIDOGREL75 MG PEG (01:31)
[2019-08-11] MEDS ORDERED: LISINOPRIL20 MG PEG (01:31)
[2019-08-11] MEDS ORDERED: AMLODIPINE BESY10 MG PEG (01:31)
[2019-08-11] MEDS ORDERED: ASPIRIN81 MG PEG (01:31)
[2019-08-11] MEDS ORDERED: RIVASTIGMINE6 MG PEG (01:31)
[2019-08-11] MEDS ORDERED: FAMOTIDINE20 MG PEG (01:31)
[2019-08-11] MEDS ORDERED: CLONIDINE1 EAC1 (01:31)
[2019-08-11] MEDS ORDERED: ATORVASTATIN CA80 MG PEG (01:31)
[2019-08-11 04:59] LABS: BASOPHILS # (AUTO) 0.1 (0.0-0.1); EOSINOPHILS # (AUTO) 0.3 (0.0-0.4); EOSINOPHILS % 2.8 % (0.0-6.0); HEMATOCRIT 38.9 % (34.2-44.1); HEMOGLOBIN 12.3 g/dL (12.0-16.0); LYMPHOCYTES # (AUTO) 2.8 (1.0-3.2); LYMPHOCYTES % 28.8 % (18.0-39.1); MEAN CORPUSCULAR HEMOGLOBIN 27.6 pg (28-32); MEAN CORPUSCULAR HGB CONC 31.6 g/dL (31-35); MEAN CORPUSCULAR VOLUME 87.4 fL (81-99); MONOCYTES # (AUTO) 0.6 (0.2-0.8); MONOCYTES % 6.5 % (4.4-11.3); NEUTROPHILS # (AUTO) 5.8 (2.1-6.9); NEUTROPHILS % 60.5 % (38.7-80.0); PLATELET COUNT 442 x10e3/uL (140-360); RED BLOOD COUNT 4.45 x10e6/uL (3.6-5.1); RED CELL DISTRIBUTION WIDTH 16.3 % (11.7-14.4)
[2019-08-11 05:20] LABS: CALCIUM 7.9 mg/dL (8.4-10.2); CREATININE, SERUM 4.93 mg/dL (0.57-1.11); MAGNESIUM 1.9 MG/DL (1.3-2.1); PHOSPHORUS 4.3 MG/DL (2.3-4.7)
[2019-08-11] MEDS ORDERED: POTASSIUM CHLORIDE 20MEQ/15ML UDC NG ONE (10:35)
[2019-08-11] MEDS ORDERED: PROPOFOL IV EMULSION 10 MG/ML 20 ML VIAL ONE (14:22)
--- NOTE | 2019-08-11 14:33 | Operative Report ---
DATE OF PROCEDURE: 08/11/2019 SURGEON: Juan Carlos Piedra MD PROCEDURE: EGD with PEG tube replacement. INDICATION FOR PROCEDURE: Dysfunctional G-tube. MEDICATIONS: The patient was done under MAC, please see anesthesiologist's note. PROCEDURE IN DETAIL: With the patient in the supine position, the flexible fiberoptic Olympus gastroscope was introduced into the esophagus under direct visualization without any difficulty. There was some patchy erythema noted in distal esophagus. The scope was then advanced with ease into the stomach and mucosa overlying the antrum and the body revealed some patchy erythema. Pylorus was of normal contour and shape, was intubated with ease and the scope was advanced all the way to the second portion of the duodenum. The scope was then withdrawn slowly, mucosa overlying the proximal second portion and duodenal bulb grossly appeared to be within normal limits. The scope was then withdrawn back into the stomach and retroflexed, and mucosa overlying the fundus and the cardia grossly appeared to be within normal limits. The scope was then straightened out and the bumper of the old G-tube could not be found in the stomach. It appeared to have been dislodged into the gastrocutaneous fistula, was subsequently removed with the pull traction method. PEG tube replacement was carried out through the same G-tube stoma in the usual fashion. The scope was subsequently withdrawn after documenting a good positioning of the intragastric bumper. The patient tolerated the procedure well. IMPRESSION: 1. Distal esophagitis, mild. 2. Gastritis. 3. Bumper of old G-tube appears to have been dislodged and is in the gastrocutaneous fistula. The old G-tube was removed per the pull traction method. The new G-tube was inserted through the old G-tube stoma in the usual fashion. The patient tolerated the procedure well. Can use G-tube in the next 12 hours. The patient will need an abdominal binder so that the G-tube will not be dislodged and the patient will not be able to manipulate the position of the G-tube or dislodge it. Juan Carlos Piedra MD [facility]/MODL /[id number] cc: Rl Serrano MD
[2019-08-11] MEDS: LISINOPRIL 20 MG TAB PEG SCH ×2 (15:30→21:00)
[2019-08-11] MEDS: CEFTRIAXONE SOD 1 GM/NS 50 ML 50 ML IV SCH (15:30)
[2019-08-11] MEDS ORDERED: FAMOTIDINE 20 MG TAB PEG SCH (17:00)
[2019-08-11] MEDS ORDERED: RIVASTIGMINE TARTRATE 6 MG PEG SCH (17:00)
[2019-08-11] MEDS: RIVASTIGMINE TARTRATE 1.5 MG CAP PEG SCH (21:00)
[2019-08-11] MEDS: ATORVASTATIN 40 MG TAB PEG SCH (21:00)
[2019-08-11] MEDS ORDERED: NON-FORMULARY MEDICATION (Atorvastatin Calcium 80 MG) PEG SCH (21:00)
--- NOTE | 2019-08-11 23:39 | Consultation ---
DATE OF CONSULTATION: 08/11/2019 Renal Consultation REASON FOR CONSULTATION: End-stage renal disease. HISTORY OF PRESENT ILLNESS: A 64-year-old female with end-stage renal disease, on hemodialysis Saturday, Saturday, Saturday, who was brought to [facility] for a leaky G-tube. The patient missed dialysis on 08/10/2019, and today underwent procedure on her PEG tube. Nephrology was consulted for further dialysis. The patient is unable to give any further history. REVIEW OF SYSTEMS: As above, otherwise unable to obtain as patient has dysarthria. PAST MEDICAL HISTORY: 1. End-stage renal disease, on hemodialysis Saturday, Saturday, Saturday. 2. Diabetes. 3. Hypertension. 4. Dyslipidemia. 5. 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 6. History of CVA. PAST SURGICAL HISTORY: 1. Cataract surgery. 2. Appendectomy. 3. Total abdominal hysterectomy. 4. Tunneled dialysis catheter. 5. PEG tube insertion. SOCIAL HISTORY: No alcohol, no IV drugs. FAMILY HISTORY: No family history of kidney disease. ALLERGIES: SEE LIST INCLUDES VANCOMYCIN. PHYSICAL EXAMINATION: VITAL SIGNS: Blood pressure 130/70, pulse 81, respiratory rate 16, temperature 98.7. GENERAL: No apparent distress. HEENT: Oropharynx clear. No scleral icterus. No peripheral edema. NECK: Supple. CHEST: Clear to auscultation anteriorly with decreased breath sounds at bases. CARDIOVASCULAR: Regular rhythm. No murmurs or rubs. ABDOMEN: Soft. Binder in place. EXTREMITIES: Trace edema. No clubbing. No cyanosis. SKIN: Warm. LABORATORY DATA: Sodium 141, potassium 3, chloride 104, CO2 27, BUN 21, creatinine 4.93, phosphorus 4.3, magnesium 1.9. White count 9.57, hemoglobin 12.3, hematocrit 38.9, platelets 442. Chest x-ray, clear. ASSESSMENT AND PLAN: 1. End-stage renal disease. Patient's volume status and labs are acceptable. We will plan for hemodialysis in the morning. Continue Saturday, Saturday, Saturday. 2. Hypertension. Blood pressure controlled. 3. Hypokalemia. We will replace. May need potassium supplementation going forward. 4. Anemia secondary to chronic kidney disease. We will give Epogen if hemoglobin drops below 10.5. 5. PEG tube malfunction. The patient underwent EGD today. 6. Dysarthria, residual from previous stroke. MD SARAH Turner/ALBERTO /[id number]
[2019-08-12] VITALS (8 sets, daily range): BP systolic 129–167; BP diastolic 62–83
[2019-08-12] MEDS: PANTOPRAZOLE 40 MG 10ML VIAL IV SCH ×2 (00:15→12:00)
[2019-08-12 05:26] LABS: BASOPHILS # (AUTO) 0.1 (0.0-0.1); BASOPHILS % 0.9 % (0.0-1.0); EOSINOPHILS # (AUTO) 0.3 (0.0-0.4); EOSINOPHILS % 3.8 % (0.0-6.0); HEMATOCRIT 40.1 % (34.2-44.1); HEMOGLOBIN 12.4 g/dL (12.0-16.0); LYMPHOCYTES # (AUTO) 2.3 (1.0-3.2); MEAN CORPUSCULAR HEMOGLOBIN 27.6 pg (28-32); MEAN CORPUSCULAR HGB CONC 30.9 g/dL (31-35); MEAN CORPUSCULAR VOLUME 89.3 fL (81-99); MONOCYTES # (AUTO) 0.6 (0.2-0.8); MONOCYTES % 6.3 % (4.4-11.3); NEUTROPHILS # (AUTO) 5.7 (2.1-6.9); NEUTROPHILS % 63.6 % (38.7-80.0); PLATELET COUNT 482 x10e3/uL (140-360); RED BLOOD COUNT 4.49 x10e6/uL (3.6-5.1); RED CELL DISTRIBUTION WIDTH 16.3 % (11.7-14.4)
[2019-08-12 05:44] LABS: ANION GAP 14.6 mmol/L (8-16); CALCIUM 7.9 mg/dL (8.4-10.2); CREATININE, SERUM 5.47 mg/dL (0.57-1.11); POTASSIUM 3.6 mmol/L (3.5-5.1)
[2019-08-12] MEDS: RIVASTIGMINE TARTRATE 1.5 MG CAP PEG SCH ×2 (08:22→21:42)
[2019-08-12] MEDS: LISINOPRIL 20 MG TAB PEG SCH ×2 (08:25→21:43)
[2019-08-12] MEDS ORDERED: CLOPIDOGREL BISULFATE 75 MG TAB PEG SCH (09:00)
[2019-08-12] MEDS ORDERED: AMLODIPINE BESYLATE 10 MG TAB PEG SCH (09:00)
[2019-08-12] MEDS ORDERED: ASPIRIN 81 MG CHEW TAB PEG SCH (09:00)
[2019-08-12] MEDS: CEFTRIAXONE SOD 1 GM/NS 50 ML 50 ML IV SCH (15:30)
[2019-08-12] MEDS: ATORVASTATIN 40 MG TAB PEG SCH (21:42)
--- NOTE | 2019-08-13 11:55 | Discharge Summary ---
ADMISSION DIAGNOSES: 1. PEG tube dysfunction. 2. End-stage renal disease. 3. Hypertension with end-stage renal disease. 4. Type 2 diabetes with end-stage renal disease. 5. History of CVA. DISCHARGE DIAGNOSES: 1. PEG tube dysfunction. 2. End-stage renal disease. 3. Hypertension with end-stage renal disease. 4. Type 2 diabetes with end-stage renal disease. 5. History of CVA. HISTORY: End-stage renal disease, type 2 diabetes, hypertension, CVA. SURGICAL HISTORY: Hysterectomy, appendectomy, PEG for poor p.o. intake. FAMILY HISTORY: Noncontributory. SOCIAL HISTORY: Noncontributory. HOSPITAL COURSE: A 64-year-old female admitted with leaking PEG tube per family report. On admission, KUB was done, which showed contrast injection through gastrostomy tube demonstrates intraluminal position without extraluminal contrast opacification. Chest x-ray showed no evidence of acute disease, stable right dialysis catheter. GI was consulted and an EGD was done with PEG tube placement. EGD showed distal esophagitis and gastritis. The PEG tube was replaced and due to missing a previous dialysis treatment, the patient was kept overnight for dialysis per Nephrology recommendation. Speech therapy was consulted to do a bedside swallow evaluation, which the patient passed and Dietary was consulted for tube feeding as the patient has poor p.o. intake, so the family is using one Nepro can daily. Per dietary recommendation, the patient should be getting three Nepro cans daily. After dialysis, the patient will discharge home with family with home PT arranged. She will continue the same home medicine. The patient's son understands discharge instructions and agrees to plan. Vital signs stable, the patient is afebrile. Dictated by Elena Choi NP MD CITLALLI Barrientos/MODL /[id number]
== END 2019-08-12 21:45 | disposition home or self-care (01) ==
LOC: ER 11:27 → UNDOADMOB 12:20 → ERHOLD 12:20 → OR 20:45 → MED/SURG2 21:35
PROVIDERS: ADMIT Internal Medicine; ATTEND Internal Medicine
DX: K94.23 Gastrostomy malfunction (principal); E11.22 Type 2 diabetes mellitus with diabetic chronic kidney disease; I12.0 Hypertensive chronic kidney disease with stage 5 chronic kidney disease or end stage renal disease; N18.6 End stage renal disease; Z99.2 Dependence on renal dialysis; I69.322 Dysarthria following cerebral infarction; E87.6 Hypokalemia; D63.1 Anemia in chronic kidney disease; K20.9 Esophagitis, unspecified; Z88.1 Allergy status to other antibiotic agents; Z88.8 Allergy status to other drugs, medicaments and biological substances; Z91.018 Allergy to other foods; Z91.048 Other nonmedicinal substance allergy status; E11.319 Type 2 diabetes mellitus with unspecified diabetic retinopathy without macular edema; H54.61 Unqualified visual loss, right eye, normal vision left eye
CPT/HCPCS: 36415; 43246; 71045; 74018; 80048; 80053; 82948; 83735; 84100; 85025; 85610; 86704; 86705; 86706; 87340; 87350; 90962; 93005; 97139; 99284; G0378; J0696

== ENCOUNTER 2019-08-25 17:32 | Emergency (ER) | payer MEDICARE, OTHER ==
[~2019-08-25] VITALS: Ht 157.5 cm; Wt 64.0 kg
[~2019-08-25 17:32] MED LIST changes: +AMLODIPINE BESY10 MG PEG; +ASPIRIN81 MG PEG; +ATORVASTATIN CA80 MG PEG; +CLONIDINE1 EAC1; +CLOPIDOGREL75 MG PEG; +FAMOTIDINE20 MG PEG; +LISINOPRIL20 MG PEG; +NIFEDIPINE20 MG PEG; +RIVASTIGMINE6 MG PEG
[2019-08-25 18:51] LABS: BASOPHILS # (AUTO) 0.1 (0.0-0.1); BASOPHILS % 1.1 % (0.0-1.0); EOSINOPHILS # (AUTO) 0.2 (0.0-0.4); EOSINOPHILS % 2.5 % (0.0-6.0); HEMATOCRIT 42.3 % (34.2-44.1); HEMOGLOBIN 13.8 g/dL (12.0-16.0); LYMPHOCYTES # (AUTO) 2.3 (1.0-3.2); LYMPHOCYTES % 24.9 % (18.0-39.1); MEAN CORPUSCULAR HEMOGLOBIN 28.1 pg (28-32); MEAN CORPUSCULAR HGB CONC 32.6 g/dL (31-35); MEAN CORPUSCULAR VOLUME 86.2 fL (81-99); MONOCYTES # (AUTO) 0.7 (0.2-0.8); MONOCYTES % 7.7 % (4.4-11.3); NEUTROPHILS # (AUTO) 5.9 (2.1-6.9); NEUTROPHILS % 63.2 % (38.7-80.0); PLATELET COUNT 397 x10e3/uL (140-360); RED BLOOD COUNT 4.91 x10e6/uL (3.6-5.1); RED CELL DISTRIBUTION WIDTH 15.4 % (11.7-14.4)
[2019-08-25 19:08] LABS: ALBUMIN 2.8 g/dL (3.5-5.0); ALBUMIN/GLOBULIN RATIO 0.7 (0.8-2.0); ANION GAP 14.4 mmol/L (8-16); CALCIUM 8.8 mg/dL (8.4-10.2); CREATININE, SERUM 4.06 mg/dL (0.57-1.11); POTASSIUM 3.4 mmol/L (3.5-5.1)
--- NOTE | 2019-08-25 19:39 | Diagnostic Imaging Report ---
EXAM: CT Abdomen and Pelvis WITHOUT contrast INDICATION: ^suprapubic pain ^[id number] ^1830 COMPARISON: CT abdomen dated 07/10/2019 TECHNIQUE: Abdomen and pelvis were scanned utilizing a multidetector helical scanner from the lung base to the pubic symphysis without administration of IV contrast. Absence of intravenous contrast decreases sensitivity for detection of focal lesions and vascular pathology. Coronal and sagittal reformations were obtained. Routine protocol was performed. IV CONTRAST: None ORAL CONTRAST: Water COMPLICATIONS: None RADIATION DOSE: Total DLP: 478.62 mGy-cm Estimated effective dose: (DLP x 0.015 x size factor) mSv CTDIvol has been reviewed. It is below the limits set by the Radiation Protocol Committee (RPC). FINDINGS: LINES and TUBES: There is a new G-tube in place.. LOWER THORAX: Near-complete resolution of bilateral small pleural effusions with mild residual atelectasis noted. HEPATOBILIARY: No focal liver lesion. No intrahepatic biliary ductal dilation. Mild common bile duct dilatation likely due to reservoir effect. GALLBLADDER: There are cholecystectomy clips. SPLEEN: No splenomegaly. PANCREAS: No focal masses or ductal dilatation. ADRENALS: No adrenal nodules. KIDNEYS/URETERS: No hydronephrosis or solid mass lesions. Punctate nonobstructive calculi are again seen in the left kidney. Mild bilateral perinephric stranding left greater than right, unchanged from 06/29/2019. PERITONEUM / RETROPERITONEUM: No free air or fluid. LYMPH NODES: No lymphadenopathy. VESSELS: Scattered atherosclerotic calcifications of the nonaneurysmal abdominal aorta and major branches. GI TRACT: There is a new G-tube in place. Enteric contrast material in the distended rectum likely due to impaction or stenosis of the lower rectum.. Mild diverticulosis. No mild wall thickening or obstruction. No evidence of inflammation BONES AND SOFT TISSUES: Mild degenerative changes of the visualized spine. IMPRESSION: Near-complete resolution of bilateral small pleural effusions with mild residual atelectasis. Stable punctate nonobstructive right calculi. Distended rectum containing enteric contrast material likely due to impaction or stenosis of the lower rectum. No evidence of inflammation. Colonic diverticulosis. Signed by: Abebe Salguero MD on 08/25/2019 7:36 PM
[2019-08-25 20:14] LABS: CLARITY,URINE CLOUDY (CLEAR); COLOR,URINE YELLOW (YELLOW)
[2019-08-25 20:15] LABS: BILIRUBIN,URINE SMALL (NEGATIVE); KETONES,URINE NEGATIVE (NEGATIVE); LEUKOCYTE ESTERASE ,URINE MODERATE (NEGATIVE); NITRITE,URINE NEGATIVE (NEGATIVE); PROTEIN,URINE DIPSTICK 3+ (NEGATIVE); URINE UROBILINOGEN 0.2 mg/dL (0.2 - 1)
[2019-08-25 20:26] LABS: BACTERIA,URINE MANY /HPF; EPITHELIAL CELLS,URINE FEW /LPF; RBC,URINE 21-50 /HPF (0-5); WBC,URINE (MAN) >50 /HPF (0-5)
== END 2019-08-25 21:42 | disposition home or self-care (01) ==
LOC: ER 17:32
DX: R10.84 Generalized abdominal pain (principal); R11.0 Nausea; N39.0 Urinary tract infection, site not specified; E13.9 Other specified diabetes mellitus without complications; Z93.1 Gastrostomy status; Z99.2 Dependence on renal dialysis; E78.5 Hyperlipidemia, unspecified
CPT/HCPCS: 36415; 74176; 80053; 81001; 85025; 87086; 87186; 99284

== ENCOUNTER 2019-08-28 10:40 | Emergency (ER) | payer MEDICARE, OTHER ==
[~2019-08-28] VITALS: Ht 157.5 cm; Wt 64.0 kg
--- NOTE | 2019-08-28 11:03 | NUR ---
removed clonidine patch from patient and advised family to check with PCP for restarting.
== END 2019-08-28 11:27 | disposition home or self-care (01) ==
LOC: ER 10:40
DX: R10.84 Generalized abdominal pain (principal); I10 Essential (primary) hypertension; E11.9 Type 2 diabetes mellitus without complications; G98.8 Other disorders of nervous system; E78.5 Hyperlipidemia, unspecified; K21.9 Gastro-esophageal reflux disease without esophagitis; I69.820 Aphasia following other cerebrovascular disease; I69.828 Other speech and language deficits following other cerebrovascular disease
CPT/HCPCS: 99282

== ENCOUNTER 2019-09-02 18:31 | Inpatient (IN) | payer MEDICARE, OTHER ==
[~2019-09-02] VITALS: Ht 157.5 cm; Wt 58.5 kg
--- NOTE | 2019-09-02 19:04 | Diagnostic Imaging Report ---
History:Altered mental status Comparison studies: None Technique: Axial images were obtained from the skull base to the vertex. Coronal and sagittal images reconstructed from the axial data. Dose modulation, iterative reconstruction, and/or weight based adjustment of the mA/kV was utilized to reduce the radiation dose to as low as reasonably achievable. Intravenous contrast: None Findings: Scalp/skull: No abnormalities. Extra-axial spaces: No masses. No fluid collections. Brain sulci: Mildly prominent. Ventricles: Mild compensatory dilatation. No hydrocephalus. Parenchyma: Cortical encephalomalacic changes in the left superior and middle temporal gyri, which extend to the posterior insula and into the inferior parietal lobule, or the result of a distal left MCA vascular insult.. Confluent hypodensities in the supratentorial white matter are small vessel ischemic changes. Old lacunar insult in the right deep frontal coronal radiata, which extends into the head of the caudate and into the putamen, is associated with compensatory dilatation of the head of the right caudate. No masses, hemorrhage, acute or additional chronic cortical vascular insults. Sellar/suprasellar region: No abnormalities. Craniocervical junction: Patent foramen magnum. No Chiari one malformation. Incidental findings: Atherosclerotic calcifications in the carotid siphons . Impression: No acute abnormalities. Chronic findings: 1. Mildly generalized volume loss. 2. Moderate supratentorial white matter small vessel ischemic changes. 3. 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 4. Focal lacunar insult as described. Signed by: Dr. Carlos Duong M.D. on 09/02/2019 7:00 PM
--- NOTE | 2019-09-02 19:18 | Diagnostic Imaging Report ---
EXAMINATION: CHEST SINGLE (PORTABLE) COMPARISON: Chest x-ray 08/10/2019 INDICATION: Altered level of consciousness ^AMS ^[id number] ^1830 DISCUSSION: Frontal view of the chest obtained at 1848 hours. HEART AND MEDIASTINUM: The heart is top normal in size. Stable calcifications of the aortic arch LINES: Dual lumen central venous catheter remains in the SVC LUNGS: The lungs are well inflated and clear. No pneumonia or pulmonary edema. PLEURA: No pleural effusion or pneumothorax. BONES AND SOFT TISSUES: Stable degenerative changes of the shoulders and spine. There is a healed left inferior rib fracture. The soft tissues are normal. IMPRESSION: Stable chest. No active disease. Signed by: Dr. Eliz Uribe MD on 09/02/2019 7:15 PM
[2019-09-02 20:47] LABS: BASOPHILS # (AUTO) 0.1 (0.0-0.1); BASOPHILS % 0.5 % (0.0-1.0); EOSINOPHILS # (AUTO) 0.1 (0.0-0.4); EOSINOPHILS % 0.6 % (0.0-6.0); HEMATOCRIT 42.4 % (34.2-44.1); HEMOGLOBIN 13.8 g/dL (12.0-16.0); LYMPHOCYTES # (AUTO) 1.2 (1.0-3.2); LYMPHOCYTES % 11.5 % (18.0-39.1); MEAN CORPUSCULAR HEMOGLOBIN 27.9 pg (28-32); MEAN CORPUSCULAR HGB CONC 32.5 g/dL (31-35); MEAN CORPUSCULAR VOLUME 85.8 fL (81-99); MONOCYTES # (AUTO) 0.6 (0.2-0.8); MONOCYTES % 6.1 % (4.4-11.3); NEUTROPHILS # (AUTO) 8.4 (2.1-6.9); NEUTROPHILS % 80.6 % (38.7-80.0); PLATELET COUNT 374 x10e3/uL (140-360); RED BLOOD COUNT 4.94 x10e6/uL (3.6-5.1); RED CELL DISTRIBUTION WIDTH 15.9 % (11.7-14.4)
[2019-09-02 21:13] LABS: ALANINE AMINOTRANSFERASE 26 IU/L (0-55); ALBUMIN 3.1 g/dL (3.5-5.0); ALBUMIN/GLOBULIN RATIO 0.8 (0.8-2.0); ALKALINE PHOSPHATASE 73 IU/L (40-150); BLOOD UREA NITROGEN 9 mg/dL (7-26); BUN/CREATININE RATIO 4 (6-25); CALCIUM 9.5 mg/dL (8.4-10.2); CARBON DIOXIDE 27 mmol/L (22-29); CHLORIDE 102 mmol/L (98-107); CREATINE KINASE 15 IU/L (29-168); CREATININE, SERUM 2.27 mg/dL (0.57-1.11); EST GLOMERULAR FILTRATION RATE 22 ML/MIN (60-); GLUCOSE 153 mg/dL (74-118); SODIUM 140 mmol/L (136-145)
--- NOTE | 2019-09-02 23:18 | NUR ---
RECEIVED PT BY STRETCHER TO ROOM 102. PT IS AAOX0. RR EVEN AND NON-LABORED, ON ROOM AIR. NO S/SX OF DISTRESS NOTED. FAMILY AT BEDSIDE. ORIENTED PT TO HOSPITAL POLICIES, CALL LIGHT, PHONE, BED CONTROLS AND LIGHTS. LEFT PT LAYING SEMI FOWLERS IN BED, BED IN LOW LOCKED POSITION, SIDE RAILS UPX3, CALL LIGHT AND PHONE WITHIN REACH. BED ALARM ACTIVATED ZONE 1.
[2019-09-02] MEDS ORDERED: [UNRECOGNIZED DRUG - REMARK] (23:58)
[2019-09-03] VITALS (10 sets, daily range): BP systolic 105–153; BP diastolic 59–80
[2019-09-03] MEDS ORDERED: POTASSIUM CHLORIDE 20MEQ/15ML UDC PEG ONE (04:45)
--- NOTE | 2019-09-03 05:25 | NUR ---
STRAIGHT CATH PERFORMED USING STERILE TECHNIQUE. CHANTAL BATEMAN AT BEDSIDE TO ASSIST. URINE COLLECTED FOR UA/CULTURE.
--- NOTE | 2019-09-03 05:59 | NUR ---
PAGED MD LEE CONCERNING CONSULTATION. WAITING FOR CALLBACK.
--- NOTE | 2019-09-03 06:03 | NUR ---
PAGE PLACED FOR MD RESTREPO CONCERNING CONSULTATION. WAITING FOR CALLBACK.
--- NOTE | 2019-09-03 06:04 | NUR ---
SPOKE WITH MD RESTREPO CONCERNING CONSULTATION. NO NEW ORDERS AT THIS TIME.
[2019-09-03 06:28] LABS: CLARITY,URINE TURBID (CLEAR); COLOR,URINE YELLOW (YELLOW); LEUKOCYTE ESTERASE ,URINE TRACE (NEGATIVE); NITRITE,URINE NEGATIVE (NEGATIVE); PROTEIN,URINE DIPSTICK 3+ (NEGATIVE)
[2019-09-03 06:29] LABS: BILIRUBIN,URINE SMALL (NEGATIVE); KETONES,URINE 1+ (NEGATIVE); URINE UROBILINOGEN 0.2 mg/dL (0.2 - 1)
[2019-09-03 06:31] LABS: AMORPHOUS SEDIMENT,URINE FEW (FEW); BACTERIA,URINE MODERATE /HPF; EPITHELIAL CELLS,URINE RARE /LPF; RBC,URINE 21-50 /HPF (0-5)
--- NOTE | 2019-09-03 07:10 | NUR ---
Received change of shift report from pm nurse. Walking rounds completed.
[2019-09-03] MEDS: CLOPIDOGREL BISULFATE 75 MG TAB PEG SCH (09:00)
[2019-09-03] MEDS: ASPIRIN 81 MG CHEW TAB PEG SCH (09:00)
[2019-09-03] MEDS: LISINOPRIL 20 MG TAB PEG SCH ×2 (09:00→21:36)
[2019-09-03] MEDS: FAMOTIDINE 20 MG TAB PEG SCH (09:00)
[2019-09-03] MEDS: AMLODIPINE BESYLATE 10 MG TAB PEG SCH (09:00)
[2019-09-03] MEDS: NIFEDIPINE 10 MG CAP PO SCH (14:03)
--- NOTE | 2019-09-03 14:42 | Consultation ---
DATE OF CONSULTATION: 09/03/2019 Neurology Consultation HISTORY OF PRESENT ILLNESS: Mrs. Anderson is a 64-year-old female with a history of right MCA stroke, who has no baseline aphasia and left hemiparesis. Confidently, she is baseline, noncommunicative. She presents with increasing mental status changes. PAST MEDICAL HISTORY: End-stage renal disease, stroke, hypertension, diabetes mellitus. She has a PEG tube. Neurology was called to evaluate patient possibly for the old stroke versus the mental status changes. The patient herself is unable to give much information given her clinical status and history of the nonverbal state. Family is at the bedside. REVIEW OF SYSTEMS: Cannot be obtained. PHYSICAL EXAMINATION: VITAL SIGNS: Show a temperature of 99.8, heart rate of 84, blood pressure is in the 130s/60s, saturating 97% on room air. HEENT: Extraocular muscles are intact. She does respond and react to the examiner, but her verbalizations are incoherent. She seems to have a fluent aphasia where she gives a small one-word responses, but she attempts to communicate with the physician, the examiner. Her extraocular muscles are intact. She does cross the midline. CARDIOVASCULAR: Regular rate and rhythm. PULMONARY: Clear. ABDOMEN: Soft, nontender. There is no nuchal rigidity. NEUROLOGIC: Her left arm is hemiparetic, flaccid, hemiparesis. Her left lower extremity responds to noxious stimulation withdraws, but does not to move purposefully. Her right arm and right lower extremity moves purposefully and strongly at least 4/5. Reflexes are brisk in upper extremities and intact in the bilateral lower extremities. Toes are upgoing on the left and mute on the right. Sensory seems to be grossly intact in uppers and lowers, from noxious stimulation and will grimace, but no withdrawal on the left. She does have upper motor neuron facial weakness on the left. She does not appear to have ataxia or dysmetria. However, it is hard to evaluate that. ASSESSMENT AND PLAN: I am seeing Ms. Awilda Anderson for mental status changes, possibly new stroke, although it is not entirely clear. She does have a urinary tract infection based on the lab work or causing delirium. She has end-stage renal disease as well. We will send a delirium workup. We will check her carotids to see if she has a large MCA stenosis on the left even though the location of her stroke appears that is possibility. Echocardiogram to verify her atrial fibrillation. She does not appear to be on anticoagulation. She has atrial fibrillation, she will require that. In the meantime, continue aspirin, Plavix, and atorvastatin and get a lipid panel. RUBY RESTREPO MD RR/MODFrancisco Javier /[id number]
[2019-09-03] MEDS ORDERED: SODIUM CHLORIDE 0.9% 250ML 250 ML ONE (18:26)
--- NOTE | 2019-09-03 19:00 | NUR ---
Received patient in bed with eyes closed. Resp even and unlabored. No SUKUMAR/resp. distress noted. No c/o pain or discomfort. Call light in reach bed in locked and low position. Bed alarm activated. SR up x2.
--- NOTE | 2019-09-03 19:58 | NUR ---
REPORT GIVEN TO ONCOMING NURSE, WALKING ROUNDS COMPLETE.
[2019-09-03] MEDS: ATORVASTATIN 40 MG TAB PEG SCH (21:36)
[2019-09-04] VITALS (9 sets, daily range): BP systolic 130–154; BP diastolic 65–84
--- NOTE | 2019-09-04 00:19 | Consultation ---
DATE OF CONSULTATION: 09/03/2019 Renal Consultation REASON FOR CONSULTATION: End-stage renal disease. HISTORY OF PRESENT ILLNESS: A 64-year-old female with history of end-stage renal disease, on hemodialysis Saturday, Saturday, and Saturday at [facility], who presented to [facility] with altered mental status. There was a concern the patient had another stroke. She was admitted. Neurology consultation was called. The patient was thought possibly to have delirium from urinary tract infection. Nephrology was consulted for dialysis. REVIEW OF SYSTEMS: As above, otherwise unable to obtain. PAST MEDICAL HISTORY: 1. End-stage renal disease, on hemodialysis Saturday, Saturday, and Saturday at [facility] dialysis. 2. History of CVA. 3. History of spinal stenosis. 4. Diabetes type 2 complicated by retinopathy. 5. Hypertension. 6. Dyslipidemia. PAST SURGICAL HISTORY: 1. Cataract surgery. 2. Appendectomy. 3. Total abdominal hysterectomy. 4. Tunneled dialysis catheter. 5. PEG tube. SOCIAL HISTORY: No tobacco. No alcohol. No IV drugs. FAMILY HISTORY: No family history of kidney disease. ALLERGIES: VANCOMYCIN, BENADRYL, IODINE. CURRENT MEDICATIONS: See list. PHYSICAL EXAMINATION: VITAL SIGNS: Blood pressure 120/59, pulse 78, respiratory rate 18, temperature 98.6. GENERAL: No apparent distress. HEENT: Oropharynx clear. No scleral icterus. No periorbital edema. NECK: Supple. No elevation in jugular venous pressure. No lymphadenopathy. CHEST: Clear to auscultation anteriorly bilaterally. CARDIOVASCULAR: Regular rhythm. ABDOMEN: Soft. Positive bowel sounds. No tenderness. No rebound. EXTREMITIES: Trace edema. No clubbing. No cyanosis. SKIN: Warm. LABORATORY DATA: Sodium 140, potassium 3, chloride 102, CO2 of 14, creatinine 2.27, albumin 3.1. Hemoglobin 13.8, white count 10.45, platelets 374. CT of the brain shows moderate supratentorial white matter small vessel ischemic changes, cortical left temporoparietal left MCA vascular insult, and focal lacunar insult as described. Urine shows 11 to 20 wbc's, 21 to 50 rbc's. Urine culture pending. ASSESSMENT AND PLAN: 1. End-stage renal disease. We will plan for hemodialysis in the morning. Continue Saturday, Saturday, Saturday. 2. Hypertension. Blood pressure controlled. 3. Anemia secondary to chronic kidney disease. We will hold Epogen. 4. Lytes. Potassium was replaced. It was checked post dialysis. We will check again in the morning. 5. Diabetes per primary team. 6. Delirium. Neurology following. Await for urine culture. MD SARAH Turner/ALBERTO /[id number]
[2019-09-04] MEDS ORDERED: LORAZEPAM 1 MG TAB PO ONE (05:00)
[2019-09-04 05:41] LABS: BASOPHILS # (AUTO) 0.1 (0.0-0.1); BASOPHILS % 0.7 % (0.0-1.0); EOSINOPHILS # (AUTO) 0.5 (0.0-0.4); EOSINOPHILS % 4.2 % (0.0-6.0); HEMOGLOBIN 11.9 g/dL (12.0-16.0); LYMPHOCYTES # (AUTO) 2.3 (1.0-3.2); LYMPHOCYTES % 20.7 % (18.0-39.1); MEAN CORPUSCULAR HEMOGLOBIN 28.4 pg (28-32); MEAN CORPUSCULAR HGB CONC 32.2 g/dL (31-35); MEAN CORPUSCULAR VOLUME 88.3 fL (81-99); MONOCYTES # (AUTO) 0.7 (0.2-0.8); MONOCYTES % 6.3 % (4.4-11.3); NEUTROPHILS # (AUTO) 7.4 (2.1-6.9); NEUTROPHILS % 67.8 % (38.7-80.0); PLATELET COUNT 323 x10e3/uL (140-360); RED BLOOD COUNT 4.19 x10e6/uL (3.6-5.1); RED CELL DISTRIBUTION WIDTH 16.3 % (11.7-14.4)
[2019-09-04 06:02] LABS: ANION GAP 9.3 mmol/L (8-16); CALCIUM 8.7 mg/dL (8.4-10.2); CREATININE, SERUM 4.04 mg/dL (0.57-1.11); PHOSPHORUS 3.3 MG/DL (2.3-4.7); POTASSIUM 3.3 mmol/L (3.5-5.1)
[2019-09-04] MEDS ORDERED: POTASSIUM CHLORIDE 20 MEQ TAB CR PO ONE (08:35)
[2019-09-04] MEDS: AMLODIPINE BESYLATE 10 MG TAB PEG SCH (09:27)
[2019-09-04] MEDS: ASPIRIN 81 MG CHEW TAB PEG SCH (09:27)
[2019-09-04] MEDS: LISINOPRIL 20 MG TAB PEG SCH ×2 (09:28→20:34)
[2019-09-04] MEDS: NIFEDIPINE 10 MG CAP PO SCH (09:28)
[2019-09-04] MEDS: CLOPIDOGREL BISULFATE 75 MG TAB PEG SCH (09:28)
--- NOTE | 2019-09-04 09:40 | NUR ---
s: no acute overnight events vs 96.9 147/67 67 awake no nuchal rigidity rrr cta abd soft does not follow commands or respond to questions appropriately responsive but has expressive and receptive aphasia moves left side, right upper paretic a/p patient w/ L MCA syndrome- old stroke duplex pending echo report pending on asa and plavix no evidence of afib noted at this time, if a-fib becomes apparent transition from antiplatelet to anticoagulation pt ot speech therapy
[2019-09-04] MEDS ORDERED: LORAZEPAM 1 MG TAB PO PRN (11:15)
[2019-09-04] MEDS: ENOXAPARIN 30 MG/0.3 ML SYR SC SCH (17:53)
--- NOTE | 2019-09-04 18:42 | NUR ---
SPOKE WITH DIALYSIS, THEY WILL COME TO DIALYZE HER AT 10 PM TONIGHT
--- NOTE | 2019-09-04 19:00 | NUR ---
Received patient in bed with eyes closed. Resp even and unlabored. No SOB/resp distress at this time. No c/o pain or discomfort noted. Bed in locked and low position. Call light in reach.
[2019-09-04] MEDS: ATORVASTATIN 40 MG TAB PEG SCH (20:34)
[2019-09-04] MEDS ORDERED: MANNITOL 25% 12.5GM/50 ML VIAL IV PRN (21:45)
[2019-09-04] MEDS ORDERED: HEPARIN SOD (PORCINE) 1000 UNIT/ML SDV IV PRN (21:45)
[2019-09-04] MEDS ORDERED: SODIUM CHLORIDE 0.9% 250ML 500 ML IV PRN (21:45)
[2019-09-04] MEDS ORDERED: ALBUMIN 25% 12.5GM 0.25 GM/ML BTL IV PRN (21:45)
[2019-09-04] MEDS ORDERED: SODIUM CHLORIDE 0.9% 1000ML 2,000 ML IV PRN (21:45)
[2019-09-05] VITALS (8 sets, daily range): BP systolic 102–159; BP diastolic 46–78
--- NOTE | 2019-09-05 06:19 | NUR ---
Dr. López notified of incomplete MRI 09/04/19 d/t patient unable to hold still for exam. No new orders given at this time.
--- NOTE | 2019-09-05 06:55 | NUR ---
Received patient lying in bed with eyes open. Respiration even and unlabored without SOB. Call light in reach.
[2019-09-05] MEDS: FAMOTIDINE 20 MG TAB PEG SCH (08:52)
[2019-09-05] MEDS: AMLODIPINE BESYLATE 10 MG TAB PEG SCH (08:52)
[2019-09-05] MEDS: CLOPIDOGREL BISULFATE 75 MG TAB PEG SCH (08:52)
[2019-09-05] MEDS: ASPIRIN 81 MG CHEW TAB PEG SCH (08:52)
[2019-09-05] MEDS: NIFEDIPINE 10 MG CAP PO SCH (08:53)
[2019-09-05] MEDS: LISINOPRIL 20 MG TAB PEG SCH ×2 (08:53→21:17)
[2019-09-05] MEDS: ENOXAPARIN 30 MG/0.3 ML SYR SC SCH (16:02)
--- NOTE | 2019-09-05 19:00 | NUR ---
Report given to night auditor. Respiration even and unlabored without SOB. Call light in reach.
--- NOTE | 2019-09-05 19:35 | NUR ---
WALKING ROUNDS PERFORMED, RECEIVED PT LAYING SEMI FOWLERS IN BED, AAOX0, RR EVEN AND NON-LABORED, ON ROOM AIR. PT CALLING OUT AT THIS TIME, SPEECH NON-COMPREHENDIBLE. LEFT PT LAYING SEMI FOWLERS IN BED, BED IN LOW LOCKED POSITION,S CRYS RAILS UPX3, CALL LIGHT AND PHONE WITHIN REACH. BED ALARM ACTIVATED ZONE 1. Addendum: 09/05/19 at 1936 by Courtney Pradhan RN INCORRECT TIME, CORRECT TIME AT 1856
[2019-09-05] MEDS: ATORVASTATIN 40 MG TAB PEG SCH (21:16)
--- NOTE | 2019-09-05 21:16 | NUR ---
DRESSING CHANGED TO PEG TUBE. INCISION SITE CDI. CLEANSED AREA WITH NS APPLIED DRAIN SPONGE AND SECURED WITH TAPE. COVERED ENTIRE DRESSING AND PEG TUBE WITH FOAM TAPE TO PREVENT TUBE FROM BEING PULLED.
[2019-09-06] VITALS (7 sets, daily range): BP systolic 104–142; BP diastolic 55–73
--- NOTE | 2019-09-06 07:00 | NUR ---
BEDSIDE SHIFT REPORT RECEIVED FROM FURNACE BRAZER NURSE. PT DENIES NEEDS AT THIS TIME.
[2019-09-06] MEDS: CLOPIDOGREL BISULFATE 75 MG TAB PEG SCH (08:31)
[2019-09-06] MEDS: AMLODIPINE BESYLATE 10 MG TAB PEG SCH (08:31)
[2019-09-06] MEDS: ASPIRIN 81 MG CHEW TAB PEG SCH (08:31)
[2019-09-06] MEDS: LISINOPRIL 20 MG TAB PEG SCH ×2 (08:31→20:26)
[2019-09-06] MEDS: NIFEDIPINE 10 MG CAP PO SCH (08:31)
--- NOTE | 2019-09-06 10:35 | Progress Note ---
DATE: SUBJECTIVE: The patient comes in with CVA. Currently, the patient is confused, has a mixture of words. No congruent thoughts. No chest pain. No shortness of breath. As per nursing staff, increased mental status changes present. OBJECTIVE: VITAL SIGNS: Temperature 96.3, pulse of 81, respirations of 16, blood pressure is 142/69, pulse oximetry of 97%. HEENT: Normocephalic and atraumatic. Again, the patient has no congruent thoughts and speech is rambled. CVS: S1 and S2 are normal. Regular rate and rhythm. PULMONARY: Clear. ABDOMEN: Soft, nontender, nondistended. NEUROLOGIC: Left arm with hemiparesis, left lower extremity with hemiparesis. The patient's reflexes are strong 4/5 bilaterally. LABORATORY VALUES: On , white count is 10.87, hemoglobin of 11.9, hematocrit of 37.0. Chemistries, blood sugars are running in the 150s. Again, the patient has an abdominal PEG tube, which was clean and clear. IMAGING STUDIES: Initial CT shows lacunar insult, cortical encephalomalacic changes in the . Carotid Doppler results preliminary shows no evidence of stenosis. Echocardiogram not done. MRI has been canceled because the patient moves quite a bit. Dr. Hill has seen the patient. ASSESSMENT: 1. Ms. Awilda Anderson with mental status changes. 2. Cerebrovascular accident, presumably new. 3. Urinary tract infection. 4. End-stage renal disease, getting dialysis. 5. Diabetes mellitus, well controlled. 6. Hypertension, well controlled. Currently, the patient is receiving Lovenox for deep venous thrombosis prophylaxis. Further recommendation per clinical course. We will continue to monitor the patient. MD BOBO Jackson/MODL /[id number]
[2019-09-06] MEDS: ENOXAPARIN 30 MG/0.3 ML SYR SC SCH (17:40)
--- NOTE | 2019-09-06 19:29 | NUR ---
WALKING ROUNDS PERFORMED, RECEIVED PT (L) SIDE LAYING SEMI FOWLERS IN BED, AAOX0, RR EVEN AND NON-LABORED, ON ROOM AIR. NO S/SX OF DISTRESS NOTED. LEFT PT (L) SIDE LAYING SEMI FOWLERS IN BED, BED IN LOW LOCKED POSITION, SIDE RAILS UPX3, CALL LIGHT AND PHONE WITHIN REACH. BED ALARM ACTIVATED ZONE 1. Addendum: 09/06/19 at 1940 by Courtney Pradhan RN INCORRECT TIME, CORRECT TIME IS 1914
[2019-09-06] MEDS: ATORVASTATIN 40 MG TAB PEG SCH (20:24)
[2019-09-07] VITALS (9 sets, daily range): BP systolic 108–154; BP diastolic 56–83
[2019-09-07 05:44] LABS: BASOPHILS # (AUTO) 0.1 (0.0-0.1); EOSINOPHILS # (AUTO) 0.6 (0.0-0.4); EOSINOPHILS % 5.8 % (0.0-6.0); HEMATOCRIT 40.4 % (34.2-44.1); HEMOGLOBIN 12.9 g/dL (12.0-16.0); LYMPHOCYTES # (AUTO) 2.3 (1.0-3.2); LYMPHOCYTES % 24.4 % (18.0-39.1); MEAN CORPUSCULAR HEMOGLOBIN 28.2 pg (28-32); MEAN CORPUSCULAR HGB CONC 31.9 g/dL (31-35); MEAN CORPUSCULAR VOLUME 88.2 fL (81-99); MONOCYTES # (AUTO) 0.6 (0.2-0.8); MONOCYTES % 6.1 % (4.4-11.3); NEUTROPHILS # (AUTO) 5.9 (2.1-6.9); NEUTROPHILS % 62.4 % (38.7-80.0); PLATELET COUNT 355 x10e3/uL (140-360); RED BLOOD COUNT 4.58 x10e6/uL (3.6-5.1); RED CELL DISTRIBUTION WIDTH 15.8 % (11.7-14.4)
--- NOTE | 2019-09-07 05:53 | NUR ---
NOTIFIED MD REN CONCERNING PT HAVING RED BLOODY STOOLS. NEW ORDERS RECEIVED.
[2019-09-07 06:00] LABS: ALBUMIN 2.8 g/dL (3.5-5.0); ALBUMIN/GLOBULIN RATIO 0.8 (0.8-2.0); ANION GAP 10.7 mmol/L (8-16); CREATININE, SERUM 4.4 mg/dL (0.57-1.11); POTASSIUM 3.7 mmol/L (3.5-5.1)
--- NOTE | 2019-09-07 07:10 | NUR ---
REPORT GIVEN TO ONCOMING SHIFT, PASSED IN REPORT ABOUT PATIENT HAVING BLOODY STOOLS SO THE LOVENOX WAS STOPPED AND FOR THE NURSE TO CONTINUE TO MONITOR STOOLS FOR INCREASE OR DECREASE OF BLOOD.
[2019-09-07] MEDS: NIFEDIPINE 10 MG CAP PO SCH (09:00)
[2019-09-07] MEDS: CLOPIDOGREL BISULFATE 75 MG TAB PEG SCH (09:00)
[2019-09-07] MEDS: ASPIRIN 81 MG CHEW TAB PEG SCH (09:00)
[2019-09-07] MEDS: LISINOPRIL 20 MG TAB PEG SCH ×2 (09:45→22:52)
[2019-09-07] MEDS: AMLODIPINE BESYLATE 10 MG TAB PEG SCH (09:45)
[2019-09-07] MEDS: FAMOTIDINE 20 MG TAB PEG SCH (09:45)
--- NOTE | 2019-09-07 10:29 | NUR ---
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 attempted to contact family, no response at number in chart. question about how much patient has progressed or declined aphasia and confusion and left paresis appear old based on CT finding s patient not able to do MRI on max medical therapy given GIB and no evidence of valvular diseaes duplex reasurring echo appears reassuing use asa and plavix as tolerated continue statin no evidence of afib noted at this time, if a-fib becomes apparent transition from antiplatelet to anticoagulation - out pt eval and loop recorder pt ot speech therapy placement
--- NOTE | 2019-09-07 18:55 | NUR ---
WALKING ROUNDS PERFORMED, RECEIVED PT LAYING SEMI FOWLERS IN BED, AAOX0, RR EVEN AND NON-LABORED, ON ROOM AIR. PT RECEIVING DIALYSIS AT THIS TIME. LEFT P[T LAYING SEMI FOWLERS IN BED, BED IN LOW LOCKED POSITION, SIDE RAILS UPX2, CALL LIGHT AND PHONE WITHIN REACH.
--- NOTE | 2019-09-07 22:43 | NUR ---
DIALYSIS COMPLETED ON PATIENT. WAS INFORMED BY [employer] TEACHER THAT 1L WAS REMOVED.
[2019-09-07] MEDS: ATORVASTATIN 40 MG TAB PEG SCH (22:52)
[2019-09-08] VITALS (10 sets, daily range): BP systolic 122–146; BP diastolic 61–80
[2019-09-08] MEDS: AMLODIPINE BESYLATE 10 MG TAB PEG SCH (09:00)
[2019-09-08] MEDS: LISINOPRIL 20 MG TAB PEG SCH ×3 (09:00→21:19)
[2019-09-08] MEDS: CLOPIDOGREL BISULFATE 75 MG TAB PEG SCH ×2 (09:00→11:33)
[2019-09-08] MEDS: ASPIRIN 81 MG CHEW TAB PEG SCH ×2 (09:00→11:32)
[2019-09-08] MEDS: NIFEDIPINE 10 MG CAP PO SCH (09:00)
--- NOTE | 2019-09-08 15:33 | NUR ---
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 attempted to contact family, no response at number in chart. question about how much patient has progressed or declined aphasia and confusion and left paresis appear old based on CT finding s patient not able to do MRI on max medical therapy given GIB and no evidence of valvular diseaes duplex reasurring echo appears reassuing use asa and plavix as tolerated continue statin no evidence of afib noted at this time, if a-fib becomes apparent transition from antiplatelet to anticoagulation - out pt eval and loop recorder pt ot speech therapy placement
[2019-09-08] MEDS ORDERED: CIPROFLOXACIN 500 MG TAB PO SCH (18:30)
--- NOTE | 2019-09-08 18:50 | NUR ---
REPORT RECEIVED FROM DAY RN. PT IS ALERT AND ORIENTED X2. RESPIRATIONS ARE EVEN AND UNLABORED. DL DIALYSIS CATHETER RT - INTACT AND CLAMPED. SL 20G IN LEFT FOREARM TELE ON. PEG TUBE INTACT- COVERED WITH TAPE. PT REPORTED TO PULL AT TUBE AT TIMES. PT C/O OF PAIN IN LOWER ABDOMEN. PT TO START CIPRO THIS PM.CALL LIGHT WITHIN REACH. BED LOCKED AND IN LOW POSITION. PT TALKING. REPOSITIONED AND DIAPER CHANGED. PERICARE GIVEN PT HAD SMALL BM- NO BLOOD NOTED.
[2019-09-08] MEDS: CIPROFLOXACIN 500 MG TAB PO SCH (21:15)
[2019-09-08] MEDS: ATORVASTATIN 40 MG TAB PEG SCH (21:17)
[2019-09-09 04:00] VITALS: BP 134/64
[2019-09-09] MEDS: AMLODIPINE BESYLATE 10 MG TAB PEG SCH (09:00)
[2019-09-09] MEDS: ASPIRIN 81 MG CHEW TAB PEG SCH (09:00)
[2019-09-09] MEDS: LISINOPRIL 20 MG TAB PEG SCH ×2 (09:00→22:48)
[2019-09-09] MEDS: NIFEDIPINE 10 MG CAP PO SCH (09:00)
[2019-09-09] MEDS: FAMOTIDINE 20 MG TAB PEG SCH (09:00)
[2019-09-09] MEDS: CLOPIDOGREL BISULFATE 75 MG TAB PEG SCH (09:00)
--- NOTE | 2019-09-09 11:11 | NUR ---
TELEPHONED DIALYSIS COMPANY, SPOKE WITH INDER, AWAITING CALL BACK FROM NURSE FOR TIME OF DIALYSIS
[2019-09-09 12:14] VITALS: BP 140/83
--- NOTE | 2019-09-09 12:45 | NUR ---
ASSOUD INTO SEE PT, DISCUSSED POC, CALLED DIALYSIS COMPANY, "THEY HAVE DIALYSIS ORDERED"
[2019-09-09 13:38] VITALS: BP 140/83
[2019-09-09 16:13] VITALS: BP 136/80
--- NOTE | 2019-09-09 16:42 | NUR ---
SPOKE WITH MD WAHL, ORDERS NOTED THAT IT IS OKAY TO DISCHARGE FROM HIS STANDPOINT AFTER PT HAS DIALYSIS, TELEPHONED MD RESTREPO FOR CLARIFICATION IF OKAY TO DISCHARGE FROM HIS STANDPOINT, AWAITING CALL BACK
--- NOTE | 2019-09-09 17:46 | NUR ---
DIALYSIS IN PROGRESS, PT CONTINUES TO HOLLAR OUT AND TALK TO SELF, NO CHANGE IN CONDITION, CALL LIGHT WITHIN REACH
[2019-09-09] MEDS: CIPROFLOXACIN 500 MG TAB PO SCH (18:00)
--- NOTE | 2019-09-09 19:10 | NUR ---
RECEIVED THE PATIENT IN REPORT.AAOX1.DOING DIALYSIS .STABLE CONDITION.
[2019-09-09 20:00] VITALS: BP 120/80
--- NOTE | 2019-09-09 20:45 | NUR ---
DIALYSIS COMPLETED.1LITRE REMOVED.STABLE CONDITION.
--- NOTE | 2019-09-09 21:00 | NUR ---
REPORT GIVEN TO CHANTAL LAURENT.
[2019-09-09] MEDS: ATORVASTATIN 40 MG TAB PEG SCH (22:48)
[2019-09-10] VITALS: BP 128/74
[2019-09-10 00:38] VITALS: BP 120/80
[2019-09-10 04:00] VITALS: BP 113/77
[2019-09-10 08:51] VITALS: BP 98/66
[2019-09-10] MEDS: CLOPIDOGREL BISULFATE 75 MG TAB PEG SCH (09:00)
[2019-09-10] MEDS: LISINOPRIL 20 MG TAB PEG SCH (09:00)
[2019-09-10] MEDS: AMLODIPINE BESYLATE 10 MG TAB PEG SCH (09:00)
[2019-09-10] MEDS: NIFEDIPINE 10 MG CAP PO SCH (09:00)
[2019-09-10] MEDS: ASPIRIN 81 MG CHEW TAB PEG SCH (09:00)
[2019-09-10 13:23] VITALS: BP 140/97
--- NOTE | 2019-09-10 13:45 | NUR ---
SPOKE WITH DAUGHTER BALJIT, MADE AWARE THAT PT IS DISCHARGED, PT NOW AWAITING RIDE
--- NOTE | 2019-09-10 17:25 | NUR ---
PT WHEELED OFF UNIT VIA WC FOR DISCHARGE, NO CHANGE IN CONDITION
--- NOTE | 2019-09-15 06:13 | Discharge Summary ---
DISCHARGE DIAGNOSES: 1. Toxic encephalopathy. 2. Urinary tract infection. 3. Cerebrovascular accident. 4. Hypertension. 5. End-stage renal disease. HISTORY OF PRESENT ILLNESS AND HOSPITAL COURSE: See hospital chart for full details. The patient is a lady with a history of CVA, PEG tube placement in the past, who presents with encephalopathic changes above her baseline, noted to have at this time what appeared to be urinary tract infection, she is placed on IV antibiotics. Continue with home medications and maintained with her dialysis and continue her feeds through the PEG. The patient appeared to be better and according to the family, appeared to get back to her usual baseline and the patient's family wanted to take her back home halfway facility. However, they chose to take her back home. So at the time of discharge, she was discharged home. Continue with her home medication and follow up with PCP in 1 to 2 weeks. Please see hospital chart for full details. MD KARAN Brandon/ALBERTO /[id number]
== END 2019-09-10 16:46 | disposition home or self-care (01) | DRG 64 ==
LOC: ER 18:31 → ERHOLD 23:15 → MED/SURG 23:23 → OBSVTOIN 09-04 11:14
PROVIDERS: ADMIT Internal Medicine; ATTEND Internal Medicine
PROC: 5A1D70Z Performance of Urinary Filtration, Intermittent, Less than 6 Hours Per Day (ICD-10-PCS; principal; 2019-09-04)
DX: I63.9 Cerebral infarction, unspecified (principal); N18.6 End stage renal disease; G92 Toxic encephalopathy; N39.0 Urinary tract infection, site not specified; I12.0 Hypertensive chronic kidney disease with stage 5 chronic kidney disease or end stage renal disease; I10 Essential (primary) hypertension; R41.0 Disorientation, unspecified; E11.22 Type 2 diabetes mellitus with diabetic chronic kidney disease; Z99.2 Dependence on renal dialysis; Z86.73 Personal history of transient ischemic attack (TIA), and cerebral infarction without residual deficits; E11.319 Type 2 diabetes mellitus with unspecified diabetic retinopathy without macular edema; Z79.4 Long term (current) use of insulin; E78.5 Hyperlipidemia, unspecified; D63.1 Anemia in chronic kidney disease; I48.91 Unspecified atrial fibrillation; Z79.01 Long term (current) use of anticoagulants; E87.6 Hypokalemia; Z93.1 Gastrostomy status
CPT/HCPCS: 36415; 70450; 71045; 80048; 80053; 80061; 81001; 82550; 82553; 82948; 83735; 84100; 84484; 85025; 86704; 86705; 86706; 86707; 87086; 87340; 90962; 93005; 93306; 93880; 97139; 99284; G0378; J1644; J1650; J7030; J7050

== ENCOUNTER 2019-11-17 16:05 | Emergency (ER) | payer MEDICARE, OTHER ==
[~2019-11-17] VITALS: Ht 157.5 cm; Wt 58.5 kg
[~2019-11-17 16:05] MED LIST changes: +[UNRECOGNIZED DRUG - REMARK]
--- OUTSIDE RECORDS SUMMARY | 2019-11-17 16:08 | XMS REPORT | Summary of Care ---
Author Author [facility] Organization [facility] Address Unknown Phone Unavailable Encounter HQ Sophia(FIN) [id number] Date(s): 01/27/19 - 01/28/19 [facility] [address] [facility] [address] [place] [address]- [phone] Vital Signs No data available for this section Problem List Condition Effective Dates Status Health Status Informan t CVA (cerebrovascular Active accident)(Confirmed) CVD (cerebrovascular Active disease)(Confirmed) CKD (chronic kidney Active disease), stage IV(Confirmed) Diabetes mellitus Active type 2, controlled, with complications(Confir med) Body mass index Active (BMI) 29.0-29.9, adult(Confirmed) Hypertension(Confirm Active ed) Left-sided Active weakness(Confirmed) Mixed Active hyperlipidemia(Confi rmed) Osteoporosis(Confirm Active ed) Left shoulder Active pain(Confirmed) Unstable Active gait(Confirmed) Vitamin D Active deficiency(Confirmed ) Allergies, Adverse Reactions, Alerts Substance Reaction Severity Status vancomycin rash Low Active iodine Active Medications amLODIPine 5 mg oral tablet 5 mg = 1 tab, PO, BID, # 60 tab, 1 Refill(s), Pharmacy: [facility] #[id number] Start Date: 01/28/19 Stop Date: 01/28/19 Status: Completed amLODIPine 5 mg oral tablet = 1 tab, PO, BID, # 180 tab, Refill(s) 1, Pharmacy: [facility] #[id number] Start Date: 01/28/19 Status: Ordered atorvastatin 80 mg oral tablet 80 mg = 1 tab, PO, Bedtime, # 90 tab, 1 Refill(s), Pharmacy: [facility] #[id number] Start Date: 01/28/19 Status: Ordered NIFEdipine 30 mg oral tablet, extended release 30 mg = 1 tab, PO, Daily, # 90 tab, 1 Refill(s), Pharmacy: [facility] #[id number] Start Date: 01/27/19 Stop Date: 01/28/19 Status: Discontinued Results No data available for this section Immunizations No data available for this section Procedures Procedure Date Related Diagnosis Body Site Status Bone density scan1 10/15/18 Completed Mammogram2 10/15/18 Completed Diabetic Retinopathy Study 7 field 10/08/18 Com pleted stereoscopic fundus photography3, 4 Colonoscopy2014 Completed Hysterectomy1979 [...] Alcohol Past Smoking Status Former smoker; Type: Cigare ttes; Exposure to Tobacco Smoke None; Cigarette Smoking Last 365 Days No; Reg Smoking C essation Counseling No entered on: 01/19/19 Assessment and Plan No data available for this section
--- OUTSIDE RECORDS SUMMARY | 2019-11-17 16:08 | XMS REPORT | Summary of Care ---
Author Author [facility] Organization [facility] Address Unknown Phone Unavailable Encounter HQ Sophia(FIN) [id number] Date(s): 01/19/19 - 01/19/19 [facility] [address] [facility] [address] [place] [address]- Discharge Disposition: Home or Self Care Attending Physician: Ciara Cardoso MD Vital Signs Most recent to 1 2 oldest [Reference Range]: Height 157.48 cm (01/19/19 10:34 AM) Temperature Oral 98.0 DegF [96.4-99.1 DegF] (01/19/19 10:34 AM) Blood Pressure 180/89 mmHg 198/80 mmHg [90-140/60-90 mmHg] *HI* *HI* (01/19/19 1:06 PM) (01/19/19 10:34 AM) Respiratory Rate 16 BRMIN [14-20 BRMIN] (01/19/19 10:34 AM) Peripheral Pulse 68 bpm Rate [60-100 bpm] (01/19/19 10:34 AM) Weight 71.818 kg (01/19/19 10:34 AM) Body Mass Index 28.96 m2 (01/19/19 10:34 AM) Problem List Condition Effective Dates Status [...] Medications alendronate 70 mg oral tablet 70 mg = 1 tab, PO, Q7D, with 6 to 8 ounces plain water, at least 30 minutes befo re first food, beverage, or medication of the day, # 12 tab, 3 Refill(s), [facility]: [facility] #[id number] Start Date: 01/19/19 Stop Date: 01/20/19 Status: Discontinued atorvastatin 80 mg oral tablet 80 mg = 1 tab, PO, Daily, # 90 tab, 1 Refill(s), Pharmacy: [facility] #[id number] Start Date: 01/19/19 Stop Date: 07/18/19 Status: Ordered atorvastatin 80 mg oral tablet 80 mg = 1 tab, PO, Daily, # 90 tab, 3 Refill(s) Start Date: 01/19/19 Stop Date: 01/19/19 Status: Discontinued ergocalciferol 50,000 intl units oral capsule 50,000 IntlUnit = 1 cap, PO, qWeek, # 12 cap, 2 Refill(s), Pharmacy: [facility] #[id number] Start Date: 01/19/19 Stop Date: 09/28/19 Status: Ordered furosemide 20 mg oral tablet 20 mg = 1 tab, PO, Daily, # 90 tab, 0 Refill(s), Pharmacy: [facility] #[id number], stop lisinopril hctz Start Date: 01/19/19 Status: Ordered lisinopril 30 mg oral tablet 30 mg = 1 tab, PO, Daily, # 90 tab, 1 Refill(s), Pharmacy: [facility] #[id number], stop lisinopril hctz Start Date: 01/19/19 Status: Ordered pantoprazole 40 mg oral enteric coated tablet See Instructions, 1 tab PO a day only 2 times a week, # 90 tab, 0 Refill(s), [facility] Start Date: 01/20/19 Status: Ordered Results No data available for this section Immunizations No data available for this section Procedures Procedure Date Related Diagnosis Body Site Status Bone density scan1 10/15/18 Completed Mammogram2 10/15/18 Completed Diabetic Retinopathy Study 7 field 10/08/18 Com pleted stereoscopic fundus photography3, 4 Colonoscopy5 2014 Completed Hysterectomy6 1979 Completed Appendectomy Completed Cholecystectomy Completed Tubal [...]
--- OUTSIDE RECORDS SUMMARY | 2019-11-17 16:08 | XMS REPORT | Summary of Care ---
Author Author [facility] Organization [facility] Internal [facility] Address Unknown Phone Unavailable Encounter NELIA Cortes(FIN) [id number] Date(s): 07/08/19 - 07/09/19 [facility] [address] [place] [address]- [phone] Vital Signs No data available for this [...] stereoscopic fundus photography3, 4 Colonoscopy5 2014 Completed Hysterectomy1979 Completed Appendectomy Completed Cholecystectomy Completed [...]
--- OUTSIDE RECORDS SUMMARY | 2019-11-17 16:08 | XMS REPORT | Continuity of Care Document ---
Author Author [employer] [facility] [employer] Address Unknown Phone Unavailable Care Team Providers Care Distribution Associate Name Role Phone [employer] Unavailable Un available Problems Problem Status Onset Date Classification Date Reported Comments Source MAMMO --- BONE DENSITY Active 09/25/2018 [facility] M25.512 Active 09/22/2018 [facility] Discharge Diagnosis: Abdominal pain 03/06/2014 03/08/2014 [facility] Discharge Diagnosis: Acute lower urinary tract infection 03/06/2014 03/08/2014 [facility] ABD PAIN Active 03/05/2014 [facility] 719.4 - PAIN IN JOINT Active 07/24/2013 [facility] [place] SORE THROAT Active 04/01/2013 [facility] CHEST PAIN Active 07/27/2011 [facility] HTN - Hypertension Active 01/22/2001 Problem 08/03/2011 [facility] Cerebrovascular disease (disorder) [facility] Finding of body mass index (finding) Active Problem [facility] Hypertensive disorder, systemic arterial (disorder) Active Problem 07/12/2019 [facility], ASHLEY Garcia,[facility] Left hemiparesis (disorder) Ac tive Problem [facility] Mixed hyperlipidemia (disorder) Active Problem [facility] Shoulder pain (finding) Active Problem 07/12/2019 [facility] Diabetes mellitus type 2 (disorder) Active Problem 02/2019 [facility] Unsteady when walking (finding) Active Problem [facility] Vitamin D deficiency (disorder) Active Problem [facility] Cerebrovascular accident (disorder) Active Problem [facility] Chronic kidney disease stage 4 (disorder) Active Problem 07/12/2019 [facility] Diabetic complication (disorder) Active Problem [facility] Osteoporosis (disorder) Active Problem 07/12/2019 [facility] Chest pain Active Problem 04/04/2013 [facility] DM - Diabetes mellitus Active Problem 04/04/2013 [facility] Chest pain (finding) Active Problem 03/08/2014 ASHLEY Garcia [facility] Diabetes mellitus (disorder) A ctive Problem ASHLEY Garcia [facility]line m[facility] Hyperlipidemia (disorder) Acti ve Problem ASHLEY Garcia, [facility] HTN - Hypertension Active Problem 04/04/2013 [facility] Hyperlipidemia Active Problem 04/04/2013 [facility] CHEST PAIN NOS Active [facility] Medications Medication Details Route Status Patient Instructions Ordering Provider Order Date Source Metoprolol Tartrate 25 mg oral tablet = 0.5 tab, PO, BID, # 90 tab, Pharmacy: [facility] #[id number] Active 05/25/2019 [facility] Furosemide 20 MG Oral Tablet = 1 tab, PO, Daily, # 90 tab, STOP LISINOPRIL HCTZ, Pharmacy: [facility] #[id number] Active 04/08/2019 [facility] atorvastatin 80 mg oral tablet 80 mg = 1 tab, PO, Bedtime, # 90 tab, 1 Refill(s), Pharmacy: [facility] #[id number] Active 01/29/2019 [facility] amLODIPine 5 mg oral tablet = 1 tab, PO, BID, # 180 tab, Refill(s) 1, Pharmacy: [facility] #[id number] Active 01/28/2019 [facility] amLODIPine 5 mg oral tablet 5 mg = 1 tab, PO, BID, # 60 tab, 1 Refill(s), Pharmacy: [facility] #[id number] Inactive 01/28/2019 [facility] NIFEdipine 30 mg oral tablet, extended release 30 mg = 1 tab, PO, Daily, # 90 tab, 1 Refill(s), Pharmacy: [facility] #[id number] No Longer Active 01/28/2019 [facility] pantoprazole 40 mg oral enteric coated tablet See Instructions, 1 tab PO a day only 2 times a week, # 90 tab, 0 Refill(s), called to pharmacy Active 01/21/2019 [facility] Ergocalciferol 52170 UNT Oral Capsule 50,000 IntlUnit = 1 cap, PO, qWeek, # 12 cap, 2 Refill(s), [id number] Active 01/19/2019 [facility] Alendronic acid 70 MG Oral Tablet 70 mg = 1 tab, PO, Q7D, with 6 to 8 ounces plain water, at least 30 minutes before first food, beverage, or medication of the day, # 12 tab, 3 Refill(s), Pharmacy: [facility] #[id number] No Longer Active 01/19/2019 [facility] atorvastatin 80 mg oral tablet 80 mg = 1 tab, PO, Daily, # 90 tab, 1 Refill(s), Pharmacy: [facility] #[id number] Active 01/19/2019 [facility] lisinopril 30 mg oral tablet 3 0 mg = 1 tab, PO, Daily, # 90 tab, 1 Refill(s), [facility] #[id number], stop lisinopril hctz Active 01/19/2019 [facility] Furosemide 20 MG Oral Tablet 2 0 mg = 1 tab, PO, Daily, # 90 tab, 0 Refill(s), [facility]: [facility] #[id number], stop lisinopril hctz Active 01/19/2019 [facility] atorvastatin 80 mg oral tablet 80 mg = 1 tab, PO, Daily, # 90 tab, 3 Refill(s) Inactive 01/19/2019 [facility] Ergocalciferol 87756 UNT Oral Capsule 50,000 IntlUnit = 1 cap, PO, qWeek, # 12 cap, 2 Refill(s), [id number] Active 10[facility]21/2018 [facility] citalopram 10 mg oral tablet 1 0 mg = 1 tab, PO, Daily, # 30 tab, 1 Refill(s), [facility] [id number] Active 10/20/2018 [facility] Alendronic acid 70 MG Oral Tablet 70 mg = 1 tab, PO, Q7D, with 6 to 8 ounces plain water, at least 30 minutes before first food, beverage, or medication of the day, # 12 tab, 3 Refill(s) Active 10/20/2018 [facility] OneTouch Ultra Blue Blood Glucose Test Strip , # 270 ea, Insulin dependent, Does not use insulin pump, Last DM eval date 10/20/18, 3 Refill(s), [facility] [id number] Active 10/20/2018 [facility] atorvastatin 40 mg oral tablet 40 mg = 1 tab, PO, Bedtime, # 90 tab, 1 Refill(s), Pharmacy: [facility] [id number] Active 10/20/2018 [facility] Hydrochlorothiazide 12.5 MG / Lisinopril 20 MG Oral Tablet 1 tab, PO, Daily, # 90 tab, 1 Refill(s), Pharmacy: [facility] [id number], stop losartan hctz and amlodipine. Active 10/20/2018 [facility] atorvastatin 40 mg oral tablet 40 mg = 1 tab, PO, Bedtime, # 90 tab, 1 Refill(s), Pharmacy: [facility] [id number] Active 10/09/2018 [facility] Trazodone Hydrochloride 50 MG Oral Tablet 50 mg = 1 tab, PO, Bedtime, after meals for insomnia, # 30 tab, 1 Refill(s), Pharmacy: [facility] [id number] Active 09/19/2018 [facility] gabapentin 300 MG Oral Capsule 300 mg = 1 cap, PO, BID, # 60 cap, 1 Refill(s), [facility] [id number] Active 09/19/2018 [facility] metoprolol tartrate 25 mg oral tablet 12.5 mg = 0.5 tab, PO, BID, 0 Refill(s) Active 09/19/2018 [facility] Hydrochlorothiazide 12.5 MG / Losartan P otassium 50 MG Oral Tablet 1 tab, PO, Daily, # 90 tab, 0 Refill(s) Active 09/19/2018 [facility] amLODIPine 10 mg oral tablet 1 0 mg = 1 tab, PO, Daily, # 90 tab, 1 Refill(s) Active 09/19/2018 [facility] Aspirin Enteric Coated 325 mg oral delay ed release tablet 325 mg = 1 tab, PO, Daily, 0 Refill(s) Active 09/19/2018 [facility] Glipizide 5 MG Oral Tablet 5 m g = 1 tab, PO, Before Breakfast, # 30 tab, 0 Refill(s) Active 09/19/2018 [facility] pantoprazole 40 mg oral enteric coated tablet 40 mg = 1 tab, PO, Daily, # 90 tab, 0 Refill(s) Active 09/19/2018 [facility] 3 ML insulin detemir 100 UNT/ML Prefille d Syringe [Levemir] 18 unit, SUB-Q, Bedtime, 0 Refill(s) Active 09/19/2018 [facility] atorvastatin 40 mg oral tablet 40 mg = 1 tab, PO, Bedtime, # 90 tab, 1 Refill(s) Active 09/19/2018 [facility] Acetaminophen 325 MG / Hydrocodone Desirae trate 5 MG Oral Tablet 1 tab, PO, Q4H, for pain, # 12 tab, 0 Refill(s) Active 03/06/2014 [facility] ciprofloxacin 500 mg oral tablet 500 mg = 1 tab, PO, Q12H, # 20 tab, 0 Refill(s) Active 03/06/2014 [facility] Zofran 4 mg, Route: IVP, Drug form: INJ, ONCE, Dosing Weight 78.636, kg, Priority: STAT, Start date: 03/05/14 22:16:00, Stop date: 03/05/14 22:16:00 Inactive 03/06/2014 [facility] Morphine 4 mg, Route: IVP, Reyes g form: INJ, ONCE, Dosing Weight 78.636, kg, Priority: STAT, Start date: 03/05/14 22:15:00, Stop date: 03/05/14 22:15:00 Inactive 03/06/2014 [facility] lisinopril 10 mg oral tablet 1 0 mg, 1 tab, PO, Daily, 30 tab, Substitution Allowed, TAB Active Sam dan 04/01/2013 [facility] metFORmin 500 mg oral tablet 5 00 mg, 1 tab, PO, BID, 30 tab, Substitution Allowed Active Luis Carlos 04/01/2013 [facility] Insulin regular 8 unit, Route: SUB-Q, ONCE, Dosing Weight 79.091, kg, Start date: 04/01/13 12:23:00, Stop date: 04/01/13 12:23:00 Inactive Luis Carlos 02/2013 [facility] dexamethasone 10 mg, Route: IM , ONCE, Dosing Weight 79.091, kg, Priority: STAT, Start date: 04/01/13 11:36:00, Stop date: 04/01/13 11:36:00 Inactive Luis Carlos 02/2013 [facility] ketorolac 60 mg, Route: IM, Dr ug form: INJ, ONCE, Dosing Weight 79.091, kg, Priority: STAT, Start date: 04/01/13 11:35:00, Stop date: 04/01/13 11:35:00 Inactive [place] 04/01/2013 [facility] Bicillin L-A 1,200,000 unit, 2 mL, Route: IM, Drug form: INJ, ONCE, Dosing Weight 79.091, kg, Start date: 04/01/13 11:35:00, Stop date: 04/01/13 11:35:00(penicillin G benzathine 1.2 MilUnit/2 ml INJ) (Same as: Bi cillin L-A, Permapen) NOT For Daily Use Inactive [facility] 04/01/2013 [facility] acetaminophen 500 mg, 1 tab, R oute: PO, Drug form: TAB, Q6H, PRN Pain, Start date: 07/31/11 19:22:00, Duration: 30 day, Stop date: 08/30/11 19:21:00 PO No Longer Active [place] 08/01/2011 [facility] Metoprolol Succinate ER 25 mg oral table t, extended release 25 mg, 1 tab, Route: PO, Drug form: ERTA B, Daily, Start date: 07/30/11 9:00:00, Duration: 30 day, Stop date: 08/28/11 9:00:00 PO No Longer Active [place] 07/30/2011 [facility] aspirin 325 mg tablet, enteric coated 325 mg, 1 tab, Route: PO, Drug form: ECTAB, Daily, Start date: 07/30/11 9:00:00, Duration: 30 day, Stop date: 08/28/11 9:00:00 PO No Longer Active [place] 07/30/2011 [facility] Saline Flush 0.9% 5 ml, Route: IVP, Drug Form: INJ, Q12H, Start date: 07/29/11 21:00:00, Duration: 30 day, Stop date: 08/28/11 9:00:00 IVP No Longer Active [place] 07/30/2011 [facility] simvastatin 20 mg, 1 tab, Rout e: PO, Drug form: TAB, Bedtime, Start date: 07/29/11 21:00:00, Duration: 30 day, Stop date: 08/27/11 21:00:00 PO No Longer Active [place] 07/30/2011 [facility] Dextrose 50% in Water IV 50 mL , Route: IVP, PRN, Blood Glucose Results, Start date: 07/29/11 17:36:00, Duration: 30 day, Stop date: 08/28/11 17:35:00 IVP No Longer Active [place] 07/29/2011 [facility] Dextrose 50% in Water IV 25 mL , Route: IVP, PRN, Blood Glucose Results, Start date: 07/29/11 17:35:00, Duration: 30 day, Stop date: 08/28/11 17:34:00 IVP No Longer Active [place] 07/29/2011 [facility] metFORmin 500 mg oral tablet 5 00 mg, 1 tab, Route: PO, Drug form: TAB, BID-Meals, Start date: 07/29/11 17:00:00, Duration: 30 day, Stop date: 08/28/11 8:00:00 PO No Longer Active [place] 07/29/2011 [facility] insulin aspart 4 unit, 0.04 mL , Route: SUB-Q, Drug form: SOLN, TID-Before Meals, PRN Blood Glucose Results, Start date: 07/29/11 16:33:00, Duration: 30 day, Stop date: 08/28/11 16:32:00 SUB-Q No Longer Active [place] 07/29/2011 [facility] Saline Flush 0.9% 5 ml, Route: IVP, Drug Form: INJ, PRN, PRN Line Flush, Start date: 07/29/11 16:33:00, Duration: 30 day, Stop date: 08/28/11 16:32:00 IVP No Longer Active [place] 07/29/2011 [facility] nitroglycerin SL Tab 0.4 mg, 1 tab, Route: SL, Drug form: TAB, Q5Min, PRN Chest Pain, Start date: 07/29/11 16:33:00, Duration: 3 doses or times, Stop date: Limited # of times SL No Longer Active [place] 07/29/2011 [facility] insulin aspart 2 unit, 0.02 mL , Route: SUB-Q, Drug form: SOLN, TID-Before Meals, PRN Blood Glucose Results, Start date: 07/29/11 16:32:00, Duration: 30 day, Stop date: 08/28/11 16:31:00 SUB-Q No Longer Active [place] 07/29/2011 [facility] glucagon 1 mg, Route: IM, Drug form: PDR/INJ, PRN, PRN Blood Glucose Results, Start date: 07/29/11 16:32:00, Duration: 30 day, Stop date: 08/28/11 16:31:00 IM No Longer Active [place] 07/29/2011 [facility] atropine 0.5 mg, 5 mL, Route: IVP, Drug form: INJ, PRN, PRN Bradycardia, Start date: 07/29/11 16:32:00, Duration: 30 day, Stop date: 08/28/11 16:31:00 IVP No Longer Active [place] 07/29/2011 [facility] Tylenol 650 mg, 2 tab, Route: PO, Drug form: TAB, Q6H, PRN Pain, Start date: 07/29/11 16:32:00, Duration: 30 day, Stop date: 08/28/11 16:31:00 PO No Longer Active [place] 07/29/2011 [facility] Dextrose 50% Syringe 12.5 gm, Route: IVP, Drug Form: INJ, PRN, PRN Blood Glucose Results, Start date: 07/29/11 16:32:00, Duration: 30 day, Stop date: 08/28/11 16:31:00 IVP No Longer Active [place] 07/29/2011 [facility] Dextrose 50% Syringe 25 gm, Ro paige: IVP, Drug Form: INJ, PRN, PRN Blood Glucose Results, Start date: 07/29/11 16:31:00, Duration: 30 day, Stop date: 08/28/11 16:30:00 IVP No Longer Active [place] 07/29/2011 [facility] Metoprolol Succinate ER 25 mg oral table t, extended release 25 mg, 1 tab, Route: PO, Drug form: ERTA B, Daily, Start date: 07/29/11 9:00:00, Duration: 30 day, Stop date: 08/27/11 9:00:00 PO No Longer Active [place] 07/29/2011 [facility] simvastatin 20 mg, 1 tab, Rout e: PO, Drug form: TAB, Bedtime, Start date: 07/28/11 21:00:00, Duration: 30 day, Stop date: 08/26/11 21:00:00 PO No Longer Active [place] 07/29/2011 [facility] metFORmin 500 mg oral tablet 5 00 mg, 1 tab, Route: PO, Drug form: TAB, BID-Meals, Start date: 07/28/11 17:00:00, Duration: 30 day, Stop date: 08/27/11 8:00:00 PO No Longer Active [place] 07/28/2011 [facility] Tylenol 650 mg, 2 tab, Route: PO, Drug form: TAB, Q6H, PRN Pain, Start date: 07/28/11 4:25:00, Duration: 30 day, Stop date: 08/27/11 4:24:00 PO No Longer Active [place] 07/28/2011 [facility] Saline Flush 0.9% 5 ml, Route: IVP, Drug Form: INJ, Q12H, Start date: 07/27/11 21:00:00, Duration: 30 day, Stop date: 08/26/11 9:00:00 IVP No Longer Active [place] 07/28/2011 [facility] atropine 0.5 mg, 5 mL, Route: IVP, Drug form: INJ, PRN, PRN Bradycardia, Start date: 07/27/11 19:19:00, Duration: 30 day, Stop date: 08/26/11 19:18:00 IVP No Longer Active [place] 07/28/2011 [facility] aspirin 325 mg tablet, enteric coated 325 mg, 1 tab, Route: PO, Drug form: ECTAB, Q24H, Start date: 07/27/11 19:00:00, Duration: 30 day, Stop date: 08/25/11 19:00:00 PO No Longer Active [place] 07/28/2011 [facility] Saline Flush 0.9% 5 ml, Route: IVP, Drug Form: INJ, PRN, PRN Line Flush, Start date: 07/27/11 18:25:00, Duration: 30 day, Stop date: 08/26/11 18:24:00 IVP No Longer Active [place] 07/28/2011 [facility] nitroglycerin SL Tab 0.4 mg, 1 tab, Route: SL, Drug form: TAB, Q5Min, PRN Chest Pain, Start date: 07/27/11 18:25:00, Duration: 3 doses or times, Stop date: Limited # of times SL No Longer Active [place] 07/28/2011 [facility] Dextrose 50% Syringe 12.5 gm, 25 mL, Route: IVP, Drug Form: INJ, PRN, PRN Blood Glucose Results, Start date: 07/27/11 18:24:00, Duration: 30 day, Stop date: 08/26/11 18:23:00 IVP No Longer Active [place] 07/28/2011 [facility] glucagon 1 mg, Route: IM, Drug form: PDR/INJ, PRN, PRN Blood Glucose Results, Start date: 07/27/11 18:24:00, Duration: 30 day, Stop date: 08/26/11 18:23:00 IM No Longer Active [place] 07/28/2011 [facility] insulin aspart 2 unit, 0.02 mL , Route: SUB-Q, Drug form: SOLN, TID-Before Meals, PRN Blood Glucose Results, Start date: 07/27/11 18:24:00, Duration: 30 day, Stop date: 08/26/11 18:23:00 SUB-Q No Longer Active [place] 07/28/2011 [facility] Tylenol 1,000 mg, Route: PO, D rug form: TAB, ONCE, PRN Pain, Priority: STAT, Start date: 07/27/11 17:44:00, Stop date: 08/26/11 17:43:00 PO No Longer Active [place] 07/27/2011 [facility] metFORmin 500 mg oral tablet 5 00 mg, 1 tab, PO, BID- Meals, Substitution Allowed PO Active [place] 07/27/2011 [facility] hydrochlorothiazide-lisinopril 12.5 mg-1 0 mg oral tablet 1 tab, PO, Daily, Substitution Allowed, Maintenance PO Active 07/27/2011 [facility] simvastatin 20 mg, PO, Bedtime , Substitution Allowed PO Active [place] 07/27/2011 [facility] Vitamin D 50,000 intl units oral capsule 50,000 IntlUnit, 1 cap, PO, QFri, Substitution Allowed PO Active 07/27/2011 [facility] ibuprofen 400 mg oral tablet 4 00 mg, 1 tab, PO, TID, PRN, as needed for headache, Substitution Allowed PO Active 07/27/2011 [facility] Saline Flush 0.9% 5 ml, Route: IVP, Drug Form: INJ, PRN, PRN Line Flush, Start date: 07/27/11 14:54:00, Duration: 24 hr, Stop date: 07/28/11 14:53:00 IVP No Longer Active [place] 07/27/2011 [facility] aspirin 325 mg tablet 325 mg, Route: PO, Drug form: TAB, ONCE, Priority: STAT, Start date: 07/27/11 14:54:00, Stop date: 07/27/11 14:54:00 PO No Longer Active [place] 07/27/2011 [facility] Allergies, Adverse Reactions, Alerts Substance Category Reaction Severity Reaction type Status Date Reported Comments Source vancomycin Assertion rash Low Drug allergy Active [facility] Group iodine Assertion Drug allergy Active [facility] Group Immunizations No Data Provided for This Section Results Order Name Results Value Reference Range Date Interpretation Comments Source CHEM PANEL eGFR 99 03/06/2014 <sup>1</sup>Result Comment: [...] should be multiplied by the estimated BMI. [facility] CHEM PANEL Bili Total 0.9 0.2 - 1.3 03/06/2014 [facility] CHEM PANEL AGAP 13.0 10.0 - 20.0 03/06/2014 [facility] CHEM PANEL B/C Ratio 18 6 - 25 03/06/2014 [facility] CHEM PANEL ALT 28 0 - 65 03/06/2014 [facility] CHEM PANEL AST 18 0 - 37 03/06/2014 [facility] Alk Phos 152 39 - 136 03/06/2014 [facility]M PANEL Potassium Lvl 4.0 3.5 - 5.1 03/06/2014 [facility] Chloride Lvl 100 95 - 109 03/06/2014 [facility] CHEM PANEL Creatinine Lvl 0.6 0.5 - 1.4 03/06/2014 [facility] CHEM PANEL Sodium Lvl 134 135 - 145 03/06/2014 [facility] CHEM PANEL Glucose Lvl 306 70 - 99 03/06/2014 <sup>2</sup>Interpretive Data: Adult ref erence range values reflect the clinical guidelines
of the [place] [employer]. [facility] CHEM PANEL BUN 11 7 - 22 03/06/2014 [facility] CHEM PANEL Albumin Lvl 3.6 3.5 - 5.0 03/06/2014 [facility] CHEM PANEL Total Protein 8.0 6.4 - 8.4 03/06/2014 [facility] CHEM PANEL Calcium Lvl 9.1 8.5 - 10.5 03/06/2014 [facility] CHEM PANEL CO2 25 24 - 32 03/06/2014 [facility] CHEM PANEL A/G Ratio 0.8 0.7 - 1.6 03/06/2014 [facility] CHEM PANEL Globulin 4.4 2.0 - 4.0 03/06/2014 [facility] HEMATOLOGY Segs 60.9 45.0 - 75.0 03/06/2014 [facility] HEMATOLOGY Basophils 1.1 0.0 - 1.0 03/06/2014 [facility] HEMATOLOGY Eosinophils 1.2 0.0 - 4.0 03/06/2014 [facility] HEMATOLOGY Monocytes 4.4 2.0 - 12.0 03/06/2014 [facility] HEMATOLOGY Lymphocytes 32.4 20.0 - 40.0 03/06/2014 [facility] HEMATOLOGY Eosinophils # 0.1 0.0 - 0.5 03/06/2014 [facility] HEMATOLOGY Monocytes # 0.5 0.0 - 0.8 03/06/2014 [facility] HEMATOLOGY Lymphocytes # 3.5 1.0 - 5.5 03/06/2014 [facility] HEMATOLOGY Segs-Bands # 6.5 1.5 - 8.1 03/06/2014 [facility] HEMATOLOGY Basophils # 0.1 0.0 - 0.2 03/06/2014 [facility] HEMATOLOGY RDW 13.0 11.5 - 14.5 03/06/2014 [facility] HEMATOLOGY MCHC 33.4 32.0 - 36.0 03/06/2014 [facility] HEMATOLOGY MCH 28.3 27.0 - 31.0 03/06/2014 [facility] HEMATOLOGY MCV 84.7 80.0 - 98.0 03/06/2014 [facility] HEMATOLOGY MPV 8.7 7.4 - 10.4 03/06/2014 [facility] HEMATOLOGY Platelet 366 133 - 450 03/06/2014 [facility] HEMATOLOGY WBC 10.7 3.7 - 10.4 03/06/2014 [facility] HEMATOLOGY Hct 49.5 36.0 - 48.0 03/06/2014 [facility] HEMATOLOGY Hgb 16.5 12.0 - 16.0 03/06/2014 [facility] HEMATOLOGY RBC 5.84 4.20 - 5.40 03/06/2014 [facility] URINE AND STOOL UA Urobilinogen <=1.0 mg/dL 0.1 - 1.0 03/05/2014 [facility] URINE AND STOOL UA Blood Small *ABN* (03/05/14 12:30 AM) Negative 03/05/2014 [facility] URINE AND STOOL UA Nitrite Negative (03/05/14 12:30 AM) Negative 03/05/2014 [facility] URINE AND STOOL UA Turbidity Marked *ABN* (03/05/14 12:30 AM) Clear 03/05/2014 [facility] URINE AND STOOL UA Spec Grav 1.032 <=1.030 03/05/2014 [facility] URINE AND STOOL UA Color Yellow *NA* (03/05/14 12:30 AM) Yellow 03/05/2014 [facility] URINE AND STOOL UA Sq Epi Many /LPF Few /LPF 03/05/2014 [facility] URINE AND STOOL UA WBC 128 0 - 5 03/05/2014 [facility] URINE AND STOOL UA RBC 15 0 - 2 03/05/2014 [facility] URINE AND STOOL UA Leuk Est Large *ABN* (03/05/14 12:30 AM) Negative 03/05/2014 [facility] URINE AND STOOL UA Bili Negative *NA* (03/05/14 12:30 AM) Negative 03/05/2014 [facility] URINE AND STOOL UA pH 5.0 5.0 - 8.0 03/05/2014 [facility] URINE AND STOOL UA Protein 30 mg/dL Negative mg/dL 03/05/2014 [facility] URINE AND STOOL UA Glucose 500 mg/dL Negative mg/dL 03/05/2014 [facility] URINE AND STOOL UA Ketones 20 mg/dL Negative mg/dL 03/05/2014 [facility] BEDSIDE GLUCOSE TESTING Glucose POC 340 70 - 99 04/01/2013 [facility] <sup>1</sup>Interpretive Data: Upper Reportable Limit: 200 mg/dL. [facility] BEDSIDE GLUCOSE TESTING Glucose POC 356 70 - 99 04/01/2013 [facility] <sup>2</sup>Interpretive Data: Upper Reportable Limit: 200 mg/dL. [facility] BEDSIDE GLUCOSE TESTING Gluc POC Lif scn 162 65 - 110 08/01/2011 [facility] <sup>1</sup>Interpretive Data: Upper Reportable Limit: 200 mg/dL. [facility] BEDSIDE GLUCOSE TESTING Gluc POC Lif scn 226 65 - 110 08/01/2011 [facility] <sup>2</sup>Interpretive Data: Upper Reportable Limit: 200 mg/dL. [facility] BEDSIDE GLUCOSE TESTING Gluc POC Lif scn 144 65 - 110 07/31/2011 [facility] <sup>3</sup>Interpretive Data: Upper Reportable Limit: 200 mg/dL. [facility] BEDSIDE GLUCOSE TESTING Comment1 Notify RN/MD 07/31/2011 NA [facility] BEDSIDE GLUCOSE TESTING Comment1 Notify RN/MD 07/31/2011 NA [facility] BEDSIDE GLUCOSE TESTING Comment1 Notify RN/MD 07/30/2011 NA [facility] CHEMISTRY Troponin-I <0.02 0.00 - 0.40 07/28/2011 Normal [facility] CHEMISTRY Total CK 35 12 - 191 07/28/2011 Normal [facility] CHEMISTRY Total CK 35 12 - 191 07/28/2011 Normal [facility] CHEMISTRY Troponin-I <0.02 0.00 - 0.40 07/28/2011 Normal [facility] CHEMISTRY CK MB Index <1.1 0.0 - 2.5 07/27/2011 Normal [facility] CHEMISTRY Total CK 45 12 - 191 07/27/2011 Normal [facility] CHEMISTRY CK MB <0.5 0.5 - 3.6 07/27/2011 Normal [facility] CHEMISTRY Troponin-I <0.02 0.00 - 0.40 07/27/2011 Normal [facility] CHEMISTRY Chloride Lvl 103 95 - 109 07/27/2011 Normal [facility] CHEMISTRY CO2 21 24 - 32 07/27/2011 LOW [facility] CHEMISTRY Sodium Lvl 135 135 - 145 07/27/2011 Normal [facility] CHEMISTRY Potassium Lvl 3.9 3.5 - 5.1 07/27/2011 Normal [facility] CHEMISTRY Creatinine Lvl 0.8 0.5 - 1.4 07/27/2011 Normal [facility] CHEMISTRY Glucose Lvl 352 07/27/2011 NA <sup>4</sup>Interpretive Data: Reference Ranges : 0 - 7 days : 41 - 90 mg/dL 7 days - 150 yrs : 70 - 99 mg/dL (fasting), based on the clinical recommendations of the [place] [employer]. [facility] CHEMISTRY BUN 23 7 - 22 07/27/2011 HI [facility] CHEMISTRY Bili Total 0.4 0.2 - 1.3 07/27/2011 Normal [facility] CHEMISTRY Alk Phos 99 39 - 136 07/27/2011 Normal [facility] CHEMISTRY AST 6 0 - 37 07/27/2011 Normal [facility] CHEMISTRY ALT 22 0 - 65 07/27/2011 Normal [facility] CHEMISTRY Total Protein 8.0 6.4 - 8.4 07/27/2011 Normal [facility] CHEMISTRY Albumin Lvl 3.8 3.5 - 5.0 07/27/2011 Normal [facility] CHEMISTRY Calcium Lvl 8.9 8.5 - 10.5 07/27/2011 Normal [facility] CHEMISTRY A/G Ratio 0.9 0.7 - 1.6 07/27/2011 Normal [facility] CHEMISTRY B/C Ratio 29 6 - 25 07/27/2011 [facility] CHEMISTRY Globulin 4.2 2.0 - 4.0 07/27/2011 [facility] CHEMISTRY AGAP 14.9 10.0 - 20.0 07/27/2011 Normal [facility] HEMATOLOGY Segs 73.9 45.0 - 75.0 07/27/2011 Normal [facility] HEMATOLOGY Eosinophils 0.6 0.0 - 4.0 07/27/2011 Normal [facility] HEMATOLOGY Lymphocytes 20.8 20.0 - 40.0 07/27/2011 Normal [facility] HEMATOLOGY Segs-Bands # 7.5 1.5 - 8.1 07/27/2011 Normal [facility] HEMATOLOGY Basophils 0.3 0.0 - 1.0 07/27/2011 Normal [facility] HEMATOLOGY Monocytes 4.4 2.0 - 12.0 07/27/2011 Normal [facility] HEMATOLOGY Lymphocytes # 2.1 1.0 - 5.5 07/27/2011 Normal [facility] HEMATOLOGY Basophils # 0.0 0.0 - 0.2 07/27/2011 Normal [facility] HEMATOLOGY Monocytes # 0.4 0.0 - 0.8 07/27/2011 Normal [facility] Eosinophils # 0.1 0.0 - 0.5 07/27/2011 Normal [facility] MPV 7.9 7.4 - 10.4 07/27/2011 Normal [facility] MCHC 35.4 32.0 - 36.0 07/27/2011 Normal [facility] MCH 29.2 27.0 - 31.0 07/27/2011 Normal [facility] RDW 13.2 11.5 - 14.5 07/27/2011 Normal [facility] Platelet 360 133 - 450 07/27/2011 Normal [facility] RBC 4.86 4.20 - 5.40 07/27/2011 Normal [facility] Hct 40.0 36.0 - 48.0 07/27/2011 Normal [facility] MCV 82.4 81.0 - 99.0 07/27/2011 Normal [facility] Hgb 14.2 12.0 - 16.0 07/27/2011 Normal [facility] WBC 10.2 3.7 - 10.4 07/27/2011 Normal [facility] INR 0.95 0.85 - 1.17 07/27/2011 Normal <sup>5</sup>Interpretive Data: RECOMMEND ED RANGES FOR PROTIME INR: 2.0-3.0 for most medical and surgical thromboembolic states. 2.5-3.5 for artificial heart valves and recurrent embolism. INR SHOULD BE USED ONLY FOR PATIENTS ON STABLE ANTICOAGULANT THERAPY. [facility] PT 12.7 12.0 - 14.7 07/27/2011 Normal [facility] PTT 25.2 22.9 - 35.8 07/27/2011 Normal <sup>6</sup>Interpretive Data: Heparin T herapeutic Range: 57 - 92 Seconds [facility] Pathology Reports No Data Provided for This Section Diagnostic Reports Report Value Date Source Breast Mammo Scrn KIMBERLY incl CAD MA BILATERAL DIGITAL SCREENING MAMMOGRAM WITH CAD: 10/15/2018 CLINICAL: /Routine. Current study was evaluated with a Computer Aided Detection (CAD) system. COMPARISON:Comparison is made to exam dated: 10/02/2011 mammogram - [facility]. TECHNIQUE: Mammographic views were obtained using digital acquisition. [employer] Version 1.3 was utilized for computer aided [...] is recommended.(10/16/2019) This exam was interpreted at [id number] for [facility]. Fran johnson/sonia:10/15/2018 15:19:21 Service Girl(s): Kimberly Davis [facility] letter sent: BI-RADS 1/2 Mammogram BI-RADS: 2 Benign 10/15/2018 [facility] Bone Density Scan Study: Bone Density Scan Clinical Indication: Osteoporosis screening; Images of the axial lumbar spine and left hip have been performed using [employer] Discovery SL scanner. COMPARISON: None FINDINGS: The [...] IMPRESSION: 1. Osteoporosis of the left femoral neck . 2. Osteopenia of the total left hip. 3. Osteopenia of the lumbar spine. The World Health Organization has established that OSTEOPOROSIS occurs at -2.5 or more standard deviations (SD) below peak bone mass (T-score on the Hologic report). OSTEOPENIA (low bone mass) occurs at greater than -1.0 standard deviations to -2.5 standard deviations below peak bone mass. SL: [id number] 10/15/2018 [facility] Shoulder series DX Left should er 3 views DX, 09/22/2018 12:37 CDT HISTORY: - left shoulder pain COMPARISON: None FINDINGS: No evidence for acute fracture. Humeral head is intact and located. Acromioclavicular joint is also intact mild degenerative changes. Soft tissues unremarkable. IMPRESSION: No acute osseous abnormality SL: [id number] 09/22/2018 [facility] Abdomen/Pelvis wo IV contrast CT CT SCAN [...] IMPRESSION: 1. Small superior pole right renal calcu li are present and cortical scarring. Nonspecific perinephric stranding is present. No definite obstructive uropathy. 2. Diffuse fatty liver infiltration. 3. Postoperative cholecystectomy, append ectomy and hysterectomy. SL: 03/05/2014 [facility] Brain wo contrast CT CT head w ithout contrast. CLINICAL INDICATION: Weakness. COMPARISON: [None]. TECHNIQUE: [...] Dedicated MRI brain if indicated. SL: 03/05/2014 [facility] Ribs bilateral Exam: Bilateral rib x-ray series Reason for Exam: Pain status post fall Comparison Exam: None Discussion: No acute bony abnormalities are seen within the right or left rib cage. No evidence seen for pneumothorax or pulmonary contusion. No suspicious osteoblastic or osteolytic lesions. Impression: 1. No acute bony abnormalities are seen within the right or left rib cage. 07/24/2013 ASHLEY Garcia Knee AP and lateral Exam: Rig ht knee x-ray, 2 views Reason for exam: Pain status post fall Comparison exam: None Discussion: No fractures or dislocations are seen within the right knee. The joint spaces are preserved. No suspicious intraosseous lesions. No radiopaque foreign bodies. Impression: 1. No acute bony abnormalities seen wit hin the right kidney. 07/24/2013 ASHLEY Garcia Consultation Notes No Data Provided for This Section Discharge Summaries No Data Provided for This Section History and Physicals No Data Provided for This Section Vital Signs Vital Sign Value Date Comments Source Systolic (mm Hg) 180 01/19/2019 [facility] Diastolic (mm Hg) 89 01/19/2019 [facility] Weight 71.818 01/19/2019 [facility] Height 157.48 cm 01/19/2019 [facility] BMI Calculated 28.96 01/19/2019 [facility] Temperature Oral (F) 98.0 F 01/19/2019 [facility] Systolic (mm Hg) 198 01/19/2019 [facility] Diastolic (mm Hg) 80 01/19/2019 [facility] Respitory Rate 16 01/19/2019 [facility] Heart Rate 68 01/19/2019 [facility] BMI Calculated 30.86 10/20/2018 [facility] Weight [...] 03/06/2014 [facility] Systolic (mm Hg) 134 03/06/2014 [facility] Heart Rate 75 03/06/2014 [facility] Respitory Rate 16 03/06/2014 [facility] Height 160.02 cm 03/05/2014 [facility] BMI Calculated 30.71 03/05/2014 [facility] Weight 78.636 03/05/2014 [facility] Temperature Oral (F) 98.3 F 03/05/2014 [facility] Heart Rate 74 03/05/2014 [facility] Systolic (mm Hg) 143 03/05/2014 [facility] Respitory Rate 16 03/05/2014 [facility] Diastolic (mm Hg) 81 03/05/2014 [facility] Heart Rate 86 04/01/2013 [facility] Systolic (mm Hg) 136 04/01/2013 [facility] Diastolic (mm Hg) 84 04/01/2013 [facility] Respitory Rate 16 04/01/2013 [facility] Respitory Rate 16 04/01/2013 [facility] Diastolic (mm Hg) 68 04/01/2013 [facility] Heart Rate 90 04/01/2013 [facility] Systolic (mm Hg) 142 04/01/2013 [facility] Weight 79.091 04/01/2013 [facility] Height 160.02 cm 04/01/2013 [facility] Respitory Rate 18 04/01/2013 [facility] Heart Rate 90 04/01/2013 [facility] Systolic (mm Hg) 132 04/01/2013 [facility] Diastolic (mm Hg) 85 04/01/2013 [facility] Temperature Oral (F) 98.2 F 04/01/2013 [facility] Heart Rate 69 08/01/2011 [facility] Temperature Oral (F) 98.2 F 08/01/2011 [facility] Respitory Rate 18 08/01/2011 [facility] Systolic (mm Hg) 122 08/01/2011 [facility] Diastolic (mm Hg) 69 08/01/2011 [facility] Diastolic (mm Hg) 71 08/01/2011 [facility] Heart Rate 71 08/01/2011 [facility] Systolic (mm Hg) 109 08/01/2011 [facility] Respitory Rate 20 08/01/2011 [facility] Temperature Oral (F) 97.4 F 08/01/2011 [facility] Diastolic (mm Hg) 56 08/01/2011 [facility] Respitory Rate 18 08/01/2011 [facility] Systolic (mm Hg) 92 08/01/2011 [facility] Heart Rate 70 08/01/2011 [facility] Temperature Oral (F) 98.2 F 08/01/2011 [facility] Weight 81.364 07/28/2011 [facility] Height 157.48 cm 07/28/2011 [facility] Weight 81.364 07/27/2011 [facility] Height 157.48 cm 07/27/2011 [facility] Encounters Location Location Details Encounter Type Encounter Number Reason For Visit Attending Provider ADM Date DC Date Status Source [facility] Inpatient [id number] CHEST PAIN CASTILLOJazzy GOMEZ 07/27/2011 08/01/2011 Active [facility] Emergency [id number] ZACHARY YEUNG 04/01/2013 04/01/2013 Discharged [facility] OD [id number] 719.4 - PAIN IN JOINT MILLIE LYONS 07/24/2013 07/24/2013 Active ASHLEY Garcia [facility] [id number] 02 Susi Stanford 03/05/2014 03/06/2014 [facility] Outpatient [id number] Ciara Cardoso 09/19/2018 Active [facility] Primary Care [facility] Outpatient [id number] Ciara Cardoso 09/19/2018 09/20/2018 [facility] Outpatient [id number] Ciara Osunaero 09/22/2018 09/23/2018 [facility] Outpatient [id number] Dasha Canchola 10/09/2018 Active [facility] Primary Care [facility] Outpatient [id number] Ciara Walker 10/09/2018 10/10/2018 [facility] Outpatient [id number] Ciara Walker 10/15/2018 10/16/2018 [facility] Outpatient [id number] Ciara Cardoso 10/20/2018 Active [facility] Outpatient [id number] Ciara Cardoso 10/20/2018 Active [facility] Primary Care [facility] Outpatient [id number] Ciara Walker 10/20/2018 10/21/2018 [facility] Primary [facility] Ambulatory Pre-Reg [id number] Ciara Cardoso 10/20/2018 10/20/2018 [facility] Outpatient [id number] Zhchiao Renetta 11/28/2018 Active [facility] Ambulatory Pre-Reg [id number] Zhchiao Renetta 11/28/2018 11/28/2018 [facility] Outpatient [id number] Ciara Cardoso 01/19/2019 Active [facility] Outpatient [id number] Ciara Cardoso 01/19/2019 01/20/2019 [facility] Phone Message [id number] 01/27/2019 01/29/2019 [facility] Internal Medicine [facility] Phone Message [id number] 04/07/2019 04/09/2019 [facility] Outpatient [id number] Ciara Cardoso 04/21/2019 Active [facility] Internal Medicine [facility] Phone Message [id number] 05/25/2019 05/27/2019 [facility] Internal [facility] Phone Message [id number] 07/08/2019 07/10/2019 [facility] Procedures Procedure Code Date Perfomer Comments Source Bone density scan<sup>1</sup> [id number] 10/15/2018 1. Osteoporosis of the left femoral neck. 2. Osteopenia of the total left hip. 3. Osteopenia of the lumbar spine. [facility] Mammogram<sup>2</sup> [id number] 10/15/2018 There is no mammographic evidence of malignancy. A 1 year screening mammogram is recommended.(10/16/2019) [facility] Diabetic Retinopathy [facility] 7 field stere oscopic fundus photography<sup>3, 4</sup> [id number] 10/08/[address] Ronak avldez retinal specialist. [facility] Diabetic Retinopathy Study 7 field stere oscopic fundus photography<sup>1, 2</sup> [id number] 10/08/[address] Ronak valdez retinal specialist. [facility] Colonoscopy<sup>5</sup> [id number] 06/24/2014 Per patient it was ok. [facility] Colonoscopy<sup>3</sup> 632551 06/24/2014 Per patient it was ok. [facility] Colonoscopy<sup>1</sup> 837450 06/24/2014 Per patient it was ok. [facility] Emergency department visit for the evalu ation and management of a patient, which requires these 3 sullivan components: A detailed history; A detailed examination; and Medical decision making of moderate complexity. Counseling and/or [place] o 77232 04/01/2013 [facility] Therapeutic, prophylactic, or diagnostic injection (specify substance or drug); subcutaneous or intramuscular 51790 04/01/2013 [facility] Hysterectomy<sup>6</sup> 32115 6002 06/24/1979 Due to fibroids [facility] Hysterectomy<sup>4</sup> 63343 6002 06/24/1979 Due to fibroids [facility] Hysterectomy<sup>2</sup> 30088 6002 06/24/1979 Due to fibroids [facility] Appendectomy [id number] [facility] Cholecystectomy [id number] [facility] Tubal ligation [id number] [facility] Appendectomy [id number] [facility] Cholecystectomy [id number] [facility] Tubal ligation [id number] [facility] Assessment and Plan No Data Provided for This Section Plan of Care No Data Provided for This Section Social History Social History Date Source Social History TypeResponse Alcohol Past Smoking Status Former smoker; Type: Cigarettes; Exposure to Tobacco Smoke None; Cigarette Smoking Last 365 Days No; Reg Smoking Cessation Counseling No entered on: 01/19/19 09/19/2018 [facility] Social History TypeResponse Alcohol Past Smoking Status Former smoker; Type: Cigarettes; Exposure to Tobacco Smoke None; Cigarette Smoking Last 365 Days No; Reg Smoking Cessation Counseling No entered on: 10/09/18 09/19/2018 [facility] Family History No Data Provided for This Section Advance Directives No Data Provided for This Section Functional Status No Data Provided for This Section
--- OUTSIDE RECORDS SUMMARY | 2019-11-17 16:08 | XMS REPORT | Summary of Care ---
Author Author [facility] [place] [facility] [place] [facility] [place] [facility] [place] Address Unknown Phone Unavailable Encounter NELIA Cortes(FIN) [id number] Date(s): 04/07/19 - 04/08/19 [facility] [place] [facility] [place] [address] [place], [place] [address]- [phone] Vital Signs No data available for this [...] vancomycin rash Low Active iodine Active Medications furosemide 20 mg oral tablet = 1 tab, PO, Daily, # 90 tab, STOP LISINOPRIL HCTZ, Pharmacy: [facility] RE #[id number] Start Date: 04/07/19 Status: Ordered Results No data available for [...]
--- OUTSIDE RECORDS SUMMARY | 2019-11-17 16:08 | XMS REPORT | Summary of Care ---
Author Author [facility] Internal Medicine [facility] [place] Organization [facility] Internal Medicine [facility] [place] Address Unknown Phone Unavailable Encounter NELIA Cortes(FIN) [id number] Date(s): 05/25/19 - 05/26/19 [facility] Internal Medicine [facility] [place] [address] [place], [place] [address]- [phone] Vital Signs No data available for this [...] vancomycin rash Low Active iodine Active Medications Metoprolol Tartrate 25 mg oral tablet = 0.5 tab, PO, BID, # 90 tab, Pharmacy: [facility] #[id number] Start Date: 05/25/19 Status: Ordered Results No data available for [...]
--- OUTSIDE RECORDS SUMMARY | 2019-11-17 16:10 | XMS REPORT ---
Author Author [facility] t Organization [facility] t Address [address] [place] [address] Phone Unavailable Support Name Relationship Address Phone CHELI RUEDA PRS [address] [place] [address] CHELI RUEDA PRS [address] [place], [place] [id number] REJI FELIX PRS [address] [place] [address] JEAN-PIERRE [place] [address] Jazzy CALLE MD Caregiver Unknown Unavailable EVAN KOHLER, Sunni MAHAJAN Caregiver [address] [place] [address] ALETA KOHLER, S JANIE Caregiver [address] [place] [address] Unavailable RUEDA, HUMBERTO Next Of Kin [address] [facility] [address] [place] [address] AL KOHLER, P CALEB Caregiver [address] [place] [address] Unavailable ALFONSO FINN MD Caregiver [address] [address] [place] [address] RUEDA, HUMBERTO Next Of Kin [address] [facility] [address] [place] [address] CHEYANNE KOHLER, Dagoberto CHU Caregiver [address] [place] [address] Unavailable RUEDA, HUMBERTO Next Of Kin [address] [facility] [address] [place] [address] NIGHAT Hernadez, Loyda COONEY Caregiver [address] [place] [address] SHYLA KOHLER, Jazzy KARLI Caregiver [address] [place] [address] Unavailable HIRAM KOHLER, Chayito LAIRD Caregiver [address] [place] [address] Unavailable FELIPE GREEN Caregiver Unknown Unavailable NONSTAFF Caregiver Unknown Unavailable HIRAM KOHLER, Chayito LAIRD Caregiver [address] [facility] [address] [place] [address] BALJIT FELIX Next Of Kin [address] [place] [address] FERMIN KOHLER, CELENA Caregiver [address] [place] [address] LIZ , JANIE Caregiver [address] [facility] [place] [address] CORY KOHLER, FELIPE Caregiver Unknown KATHIA RODRIGUEZ, EHSAN Caregiver [address] [facility] [address] [place] [address] MIKAL KOHLER, DANIELE Caregiver [address] [place] [address] Care Team Providers Care Food Order Expediter Name Role Phone NONSTAFF PCP Unavailable Chayito GANDHI Attphys Unavailable EHSAN BAE Attphys Unavailable JOSR SAENZ Attphys Unavailable CELENA CHRISTENSEN Attphys Unavailable Delilah Cardoso Attphys Sunni GORDON Attphys Unavailable Shelton Jackson Attphys Yari Stanford Attphys CELENA CHRISTENSEN Admphys Unavailable Sunni GORDON Admphys Unavailable Payers Payer Name Policy Type Policy Number Effective Date Expiration Date S rahel [facility] [employer] [facility] [id number] 2019 00:00 :00 [facility] [id number] 2018 00:00:00 [facility] [employer] [facility] [id number] 2019 00:00 :00 [facility] [id number] 2018 00:00:00 [facility] [id number] 2019 00:00 :00 [facility] [id number] 2018 00:00:00 [facility] [id number] 2019 00:00 :00 [facility] [id number] 2018 00:00:00 [facility] [id number] 2018 00:00:00 [facility] [id number] 2018 00:00:00 [facility] [id number] 2018 00:00:00 [facility] [id number] 2018 00:00 :00 [facility] [id number] 2018 00:00:00 [facility] [id number] 2018 00:00:00 [facility] [id number] 2018 00:00:00 [facility] [id number] 2018 00:00:00 [facility] [id number] 2018 00:00:00 [facility] Problems Condition Name Condition Details Condition Category Status Onset Date Resolution Date Last Treatment Date Treating Clinician Comments Source MAMMO --- BONE DENSITY MAMM O --- BONE DENSITY Active 09/25/2018 [facility] Diagnosis Active 2018-09-25 00:00:00 2019-02-19 17:20:00 [facility] M25.512 M25. 512 Active 09/22/2018 [facility] Diagnosis Active 2018-09-22 00:00:00 2018-09-22 12:34:00 [facility] ABD PAIN ABD PAIN Active 03/05/2014 [facility] Diagnosis Active 2014-03-05 12:00:00 2014-03-05 21:57:00 [facility] 719.4 - PAIN IN JOINT 719. 4 - PAIN IN JOINT Active 07/24/2013 [facility] Diagnosis Active 2013-07-24 00:01:00 2013-07-30 08:00:00 [facility] SORE THROAT SORE THROAT Active 04/01/2013 [facility] Active 2013-04-01 00:00:00 2013-04-01 11:50:00 [facility] CHEST PAIN CHES T PAIN Active 07/27/2011 [facility] Active 2011-07-27 13:30:00 2011-08-07 13:33:00 [facility] HTN - Hypertension HTN - Hypertension Active 01/22/2001 Problem 08/03/2011 [facility] Problem Active 2001-01-22 00:00:00 2011-08-03 09:48:46 [facility] Cerebrovascular accident (CVA) CVA (cerebral vascular accident) Pro blem Active [facility] Dehydration Dehydration Problem Active [facility] Acute renal failure superimposed on chronic kidney dis ease Renal failure (ARF), acute on chronic Problem Active [facility] Acute on chronic renal insufficiency Acute on chronic renal insufficiency Problem Active [facility] 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 Hypoglycemia secondar y to sulfonylurea Problem Active [facility] Cerebrovascular disease (disorder) Cerebrovascular disease (disorder) Active Problem 07/12/2019 [facility] Problem Active 2019-07-12 00:50:24 [facility] Finding of body mass index (finding) Finding of body mass index (finding) Active Problem 07/12/2019 [facility] Problem Active 2019-07-12 00:50:24 [facility] Hypertensive disorder, systemic arterial (disorder) Hypertensive disorder, systemic arterial (disorder) Active Problem 07/12/2019 [facility] Problem Active 2019-07-12 00:50:24 [facility], [facility] Left hemiparesis (disorder) Le ft hemiparesis (disorder) Active Problem 07/12/2019 [facility] Problem Active 2019-07-12 00:50:24 [facility] Mixed hyperlipidemia (disorder) Mixed hyperlipidemia (disorder) Active Problem 07/12/2019 [facility] Problem Active 2019-07-12 00:50:24 [facility], [facility] Shoulder pain (finding) Shou lder pain (finding) Active Problem 07/12/2019 [facility] Problem Active 2019-07-12 00:50:24 [facility] Diabetes mellitus type 2 (disorder) Diabetes mellitus type 2 (disorder) Active Problem 11/30/2018 [facility] Problem Active 2018-11-30 21:55:37 [facility], [facility] Unsteady when walking (finding) Unsteady when walking (finding) Active Problem 07/12/2019 [facility] Problem Active 2019-07-12 00:50:24 [facility], [facility] Vitamin D deficiency (disorder) Vitamin D deficiency (disorder) Active Problem 07/12/2019 [facility] Problem Active 2019-07-12 00:50:24 [facility], [facility] Chronic kidney disease stage 4 (disorder) Chronic kidney disease stage 4 (disorder) Active Problem 07/12/2019 [facility] Problem Active 2019-07-12 00:50:24 [facility] dical Group Diabetic complication (disorder) Diabetic complication (disorder) Active Problem 07/12/2019 [facility] Problem Active 2019-07-12 00:50:24 [facility] Osteoporosis (disorder) Oste oporosis (disorder) Active Problem 07/12/2019 [facility] Problem Active 2019-07-12 00: 50:24 [facility] Chest pain Ches t pain Active Problem 04/04/2013 [facility] Problem Active 2013-04-04 05:57:39 [facility] DM - Diabetes mellitus DM - Diabetes mellitus Active Problem 04/04/2013 [facility] Problem Active 2013-04-04 05:57:3 9 [facility] Chest pain (finding) Ches t pain (finding) Active Problem 03/08/2014 [facility], [facility] Problem Active 2014-03-08 21:25:53 [facility], [facility] Diabetes mellitus (disorder) D iabetes mellitus (disorder) Active Problem 03/08/2014 [facility] Problem Active 2014-03-08 21:25:53 [facility], [facility] Hyperlipidemia (disorder) Hype rlipidemia (disorder) Active Problem 03/08/2014 [facility] Active 2014-03-08 21:25:53 ASHLEY Degroot [facility] HTN - Hypertension HTN - Hypertension Active Problem 04/04/2013 [facility] Problem Active 2013-04-04 05:57:39 [facility] Hyperlipidemia Hype rlipidemia Active Problem 04/04/2013 [facility] Problem Active 2013-04-04 05:57:39 [facility] CHEST PAIN NOS CHES T PAIN NOS Active [facility] Diagnosis Active 2011-08-07 13:33:00 [facility] Discharge Diagnosis: Abdominal pain Discharge Diagnosis: Abdominal pain 03/06/2014 03/08/2014 [facility] Problem 2014-03-06 05:00:00 2014-03-08 21:25:53 2014-03-08 21:25:53 [facility] Discharge Diagnosis: Acute lower urinary tract infecti on Discharge Diagnosis: Acute lower urinary tract infection 03/06/2014 03/08/2014 [facility] Problem 2014-03-06 05:00:00 2014-03-08 21:25:53 2014-02 21:25:53 [facility] Allergies, Adverse Reactions, Alerts Allergy Name Allergy Type Status Severity Reaction(s) Onset Date Inacti ve Date Treating Clinician Comments Source iodine DA Active U 2019-07-14 00:00:00 [facility] diphenhydramine DA Active U 2019-07-14 00:00:00 [facility] vancomycin DA Active U 2019-07-14 00:00:00 [facility] tomato FA Active U 2019-07-14 00:00:00 [facility] Diphenhydramine Allergy to Substance Active Severe [facility]ASH 2019-04-17 00:00:00 [facility] Tomato Allergy to Substance Active [facility]/VOMITING 2019-04-17 00 :00:00 [facility] iodine DA Active [place] 2016-07-05 00:00:00 [facility] vancomycin DA Active U 2016-07-05 00:00:00 [facility] tomato FA Active U 2016-07-05 00:00:00 [facility] vancomycin vancomycin Active [facility] iodine iodine Active [facility] Social History Social Habit Start Date Stop Date Quantity Comments Source Social History 2018-09-19 16:43:09 2018-09-19 16:43:09 [facility] Medications Ordered Medication Name Filled Medication Name Start Date Stop Da te Current Medication? Ordering Clinician Indication Dosage Frequency Signature (SIG) Comments Components Source Metoprolol Tartrate 25 mg oral tablet 2019-05-25 16:19:08 Y es = 0.5 tab, PO, BID, # 90 tab, [id number] Furosemide 20 MG Oral Tablet 2019-04-08 02:10:03 Yes = 1 tab, PO, Daily, # 90 tab, STOP LISINOPRIL HCTZ, Pharmacy: [facility] #[id number] [facility] atorvastatin 80 mg oral tablet 2019-01-29 02:40:00 Yes 80 mg = 1 tab, PO, Bedtime, # 90 tab, 1 Refill(s), Pharmacy: [facility] #[id number] [facility] amLODIPine 5 mg oral tablet 2019-01-28 21:42:09 Yes = 1 tab, PO, BID, # 180 tab, Refill(s) 1, [facility]acy: [facility] #[id number] [facility] amLODIPine 5 mg oral tablet 2019-01-28 21:36:00 No 5 mg = 1 tab, PO, BID, # 60 tab, 1 Refill(s), Pharmacy: [facility] #[id number] [facility] NIFEdipine 30 mg oral tablet, extended release 2019-01-28 02:09: 00 No 30 mg = 1 tab, PO, Daily, # 90 tab, 1 Re fill(s), [facility] #[id number] [facility] pantoprazole 40 mg oral enteric coated tablet 2019-01-21 02:07:0 0 Yes See Instructions, 1 tab PO a day only 2 times a week, # 90 tab, 0 Refill(s), called to pharmacy [facility] Ergocalciferol [id number] UNT Oral Capsule 2019-01-19 16:11:16 Y es 50,000 IntlUnit = 1 cap, PO, qWeek, # 12 cap, 2 Refill(s), [id number] Alendronic acid 70 MG Oral Tablet 2019-01-19 16:10:38 No 70 mg = 1 tab, PO, Q7D, with 6 to 8 ounces plain water, at least 30 minutes before first food, beverage, or medication of the day, # 12 tab, 3 Refill(s), [facility] #[id number] [facility] atorvastatin 80 mg oral tablet 2019-01-19 16:10:00 Yes 80 mg = 1 tab, PO, Daily, # 90 tab, 1 Refill(s), [facility] #[id number] [facility] lisinopril 30 mg oral tablet 2019-01-19 16:10:00 Yes 30 mg = 1 tab, PO, Daily, # 90 tab, 1 Refill(s), [facility]acy: [facility] #[id number], stop lisinopril hctz [facility] Furosemide 20 MG Oral Tablet 2019-01-19 16:10:00 Yes 20 mg = 1 tab, PO, Daily, # 90 tab, 0 Refill(s), Pharmacy: [facility] #[id number], stop lisinopril hctz [facility] atorvastatin 80 mg oral tablet 2019-01-19 15:36:00 No 80 mg = 1 tab, PO, Daily, # 90 tab, 3 Refill(s) [facility] Ergocalciferol [id number] UNT Oral Capsule 2018-10-21 21:15:00 Y es 50,000 IntlUnit = 1 cap, PO, qWeek, # 12 cap, 2 Refill(s), [facility]: [facility] [id number] [facility] citalopram 10 mg oral tablet 2018-10-20 17:05:00 Yes 10 mg = 1 tab, PO, Daily, # 30 tab, 1 Refill(s), Pharmacy: [facility] [id number] [facility] Alendronic acid 70 MG Oral Tablet 2018-10-20 17:03:00 Yes 70 mg = 1 tab, PO, Q7D, with 6 to 8 ounces plain water, at least 30 minutes before first food, beverage, or medication of the day, # 12 tab, 3 Refill(s) [facility] OneTouch Ultra Blue Blood Glucose Test Strip 2018-10-20 16:57:00 Yes , # 270 ea, Insulin dependent, Does not use insulin pump, Last DM eval date 10/20/18, 3 Refill(s), Pharmacy: [facility] [id number] atorvastatin 40 mg oral tablet 2018-10-20 16:56:30 Yes 40 mg = 1 tab, PO, Bedtime, # 90 tab, 1 Refill(s), Pharmacy: [facility] [address] [place] [address] [facility] Hydrochlorothiazide 12.5 MG / Lisinopril 20 MG Oral Tablet 2018-10-20 16:53:00 Yes 1 tab, PO, Daily, # 90 tab, 1 Refill(s), Pharmacy: [facility] [id number], stop losartan hctz and amlodipine. [facility] atorvastatin 40 mg oral tablet 2018-10-09 19:40:00 Yes 40 mg = 1 tab, PO, Bedtime, # 90 tab, 1 Refill(s), Pharmacy: [facility] [address] [place] [address] [facility] Trazodone Hydrochloride 50 MG Oral Tablet 2018-09-19 21:12:00 Yes 50 mg = 1 tab, PO, Bedtime, after meals for insomnia, # 30 tab, 1 Refill(s), Pharmacy: [facility] [id number] [facility] gabapentin 300 MG Oral Capsule 2018-09-19 17:33:00 Yes 300 mg = 1 cap, PO, BID, # 60 cap, 1 Refill(s), Pharmacy: [facility] [id number] [facility] metoprolol tartrate 25 mg oral tablet 2018-09-19 16:44:00 Y es 12.5 mg = 0.5 tab, PO, BID, 0 Refill(s) [facility] dical Group Hydrochlorothiazide 12.5 MG / Losartan Potassium 50 MG Oral Tablet 2018-09-19 16:44:00 Yes 1 tab, PO, Daily, # 90 tab, 0 Refill(s) [facility] amLODIPine 10 mg oral tablet 2018-09-19 16:44:00 Yes 10 mg = 1 tab, PO, Daily, # 90 tab, 1 Refill(s) [facility] Aspirin Enteric Coated 325 mg oral delayed release tablet 2018-09-19 16:44:00 Yes 325 mg = 1 tab, PO, Daily, 0 Ref ill(s) [facility] Glipizide 5 MG Oral Tablet 2018-09-19 16:44:00 Yes 5 mg = 1 tab, PO, Before Breakfast, # 30 tab, 0 Refill(s) [facility] pantoprazole 40 mg oral enteric coated tablet 2018-09-19 16:44:0 0 Yes 40 mg = 1 tab, PO, Daily, # 90 tab, 0 Refill(s) [facility] 3 ML insulin detemir 100 UNT/ML Prefilled Syringe [Levemir] 2018-09-19 16:44:00 Yes 18 unit, SUB-Q, Bedtime, 0 Re fill(s) [facility] atorvastatin 40 mg oral tablet 2018-09-19 16:44:00 Yes 40 mg = 1 tab, PO, Bedtime, # 90 tab, 1 Refill(s) [facility] Acetaminophen 325 MG / Hydrocodone Bitartrate 5 MG Oral Tabl et 2014-03-06 07:48:00 Yes 1 tab, PO, Q4H, for pain, # 1 2 tab, 0 Refill(s) [facility] ciprofloxacin 500 mg oral tablet 2014-03-06 07:48:00 Yes 500 mg = 1 tab, PO, Q12H, # 20 tab, 0 Refill(s) [facility] Zofran 2014-03-06 03:16:00 No 4 mg, Route: IVP, Drug form: INJ, ONCE, Dosing Weight 78.636, kg, Priority: STAT, Start date: 03/05/14 22:16:00, Stop date: 03/05/14 22:16:00 Germ[facility]neas t Morphine 2014-03-06 03:15:00 No 4 mg, Route: IVP, Drug form: INJ, ONCE, Dosing Weight 78.636, kg, Priority: STAT, Start date: 03/05/14 22:15:00, Stop date: 03/05/14 22:15:00 [facility] lisinopril 10 mg oral tablet 2013-04-01 18:36:01 Yes Bobbi Aldridge 10 mg, 1 tab, PO, Daily, 30 tab, Substit ution Allowed, TAB [facility] metFORmin 500 mg oral tablet 2013-04-01 18:35:52 Yes Bobbi Aldridge 500 mg, 1 tab, PO, BID, 30 tab, Substitu tion Allowed [facility] Insulin regular 2013-04-01 17:23:00 No Bobbi Aldridge 8 unit, Route: SUB-Q, ONCE, Dosing Weight 79.091, kg, Start date: 04/01/13 12:23:00, Stop date: 04/01/13 12:23:00 [facility] 2013-04-01 16:36:00 No Bobbi lees 10 mg, Route: IM, ONCE, Dosing Weight 79.091, kg, Priority: STAT, Start date: 04/01/13 11:36:00, Stop date: 04/01/13 11:36:00 [facility] ketorolac 2013-04-01 16:35:00 No Bobbi Franklin s 60 mg, Route: IM, Drug form: INJ, ONCE, Dosing Weight 79.091, kg, Priority: STAT, Start date: 04/01/13 11:35:00, Stop date: 04/01/13 11:35:00 [facility] Bicillin L-A 2013-04-01 16:35:00 No Bobbi Lawrence ards 1,200,000 unit, 2 mL, Route: IM, Drug form: INJ, ONCE, Dosing Weight 79.091, kg, Start date: 04/01/13 11:35:00, Stop date: 04/01/13 11:35:00(penicillin G benzathine 1.2 MilUnit/2 ml INJ) (Same as: Bicillin L-A, Permapen) NOT For Daily Use [facility] acetaminophen 2011-08-01 01:22:00 No Caden Kingston 500 mg, 1 tab, Route: PO, Drug form: TAB, Q6H, PRN Pain, Start date: 07/31/11 19:22:00, Duration: 30 day, Stop date: 08/30/11 19:21:00 [facility] Metoprolol Succinate ER 25 mg oral tablet, extended release 2011-07-30 15:00:00 No Caden Kingston 25 mg, 1 tab, Route: PO, Drug form: ERTAB, Daily, Start date: 07/30/11 9:00:00, Duration: 30 day, Stop date: 08/28/11 9:00:00 [facility] aspirin 325 mg tablet, enteric coated 2011-07-30 15:00:00 No Caden Nasim 325 mg, 1 tab, Route : PO, Drug form: ECTAB, Daily, Start date: 07/30/11 9:00:00, Duration: 30 day, Stop date: 08/28/11 9:00:00 [facility] Saline Flush 0.9% 2011-07-30 03:00:00 No Caden Nasim 5 ml, Route: IVP, Drug Form: INJ, Q12H, Start date: 07/29/11 21:00:00, Duration: 30 day, Stop date: 08/28/11 9:00:00 [facility] simvastatin 2011-07-30 03:00:00 No Caden Kingston 20 mg, 1 tab, Route: PO, Drug form: TAB, Bedtime, Start date: 07/29/11 21:00:00, Duration: 30 day, Stop date: 08/27/11 21:00:00 [facility] Dextrose 50% in Water IV 2011-07-29 23:36:00 No Caden Kingston 50 mL, Route: IVP, PRN, Blood Glucose Results, Start date: 07/29/11 17:36:00, Duration: 30 day, Stop date: 08/28/11 17:35:00 [facility] Dextrose 50% in Water IV 2011-07-29 23:35:00 No Caden Nasim 25 mL, Route: IVP, PRN, Blood Glucose Results, Start date: 07/29/11 17:35:00, Duration: 30 day, Stop date: 08/28/11 17:34:00 [facility] metFORmin 500 mg oral tablet 2011-07-29 23:00:00 No Placido eev Kingston 500 mg, 1 tab, Route: PO, Drug form: TAB, BID-Meals, Start date: 07/29/11 17:00:00, Duration: 30 day, Stop date: 08/28/11 8:00:00 [facility] insulin aspart 2011-07-29 22:33:00 No Caden Kingston 4 unit, 0.04 mL, Route: SUB-Q, Drug form: SOLN, TID-Before Meals, PRN Blood Glucose Results, Start date: 07/29/11 16:33:00, Duration: 30 day, Stop date: 08/28/11 16:32:00 [facility] Saline Flush 0.9% 2011-07-29 22:33:00 No Caden Nasim 5 ml, Route: IVP, Drug Form: INJ, PRN, PRN Line Flush, Start date: 07/29/11 16:33:00, Duration: 30 day, Stop date: 08/28/11 16:32:00 [facility] nitroglycerin SL Tab 2011-07-29 22:33:00 No Caden Grov er 0.4 mg, 1 tab, Route: SL, Drug form: TAB, Q5Min, PRN Chest Pain, Start date: 07/29/11 16:33:00, Duration: 3 doses or times, Stop date: Limited # of times [facility] insulin aspart 2011-07-29 22:32:00 No Caden Kingston 2 unit, 0.02 mL, Route: SUB-Q, Drug form: SOLN, TID-Before Meals, PRN Blood Glucose Results, Start date: 07/29/11 16:32:00, Duration: 30 day, Stop date: 08/28/11 16:31:00 [facility] glucagon 2011-07-29 22:32:00 No Caden Kingston 1 mg, Route: IM, Drug form: PDR/INJ, PRN, PRN Blood Glucose Results, Start date: 07/29/11 16:32:00, Duration: 30 day, Stop date: 08/28/11 16:31:00 [facility] atropine 2011-07-29 22:32:00 No Caden Kingston 0.5 mg, 5 mL, Route: IVP, Drug form: INJ, PRN, PRN Bradycardia, Start date: 07/29/11 16:32:00, Duration: 30 day, Stop date: 08/28/11 16:31:00 [facility] Tylenol 2011-07-29 22:32:00 No Caden Kingston 650 mg, 2 tab, Route: PO, Drug form: TAB, Q6H, PRN Pain, Start date: 07/29/11 16:32:00, Duration: 30 day, Stop date: 08/28/11 16:31:00 [facility] st Dextrose 50% Syringe 2011-07-29 22:32:00 No Caden Grov er 12.5 gm, Route: IVP, Drug Form: INJ, PRN, PRN Blood Glucose Results, Start date: 07/29/11 16:32:00, Duration: 30 day, Stop date: 08/28/11 16:31:00 [facility] Dextrose 50% Syringe 2011-07-29 22:31:00 No Caden Grov er 25 gm, Route: IVP, Drug Form: INJ, PRN, PRN Blood Glucose Results, Start date: 07/29/11 16:31:00, Duration: 30 day, Stop date: 08/28/11 16:30:00 [facility] Metoprolol Succinate ER 25 mg oral tablet, extended release 2011-07-29 15:00:00 No Palur V Frederick 25 mg, 1 tab, Route: PO, Drug form: ERTAB, Daily, Start date: 07/29/11 9:00:00, Duration: 30 day, Stop date: 08/27/11 9:00:00 [facility] simvastatin 2011-07-29 03:00:00 No Palur V Frdeerick 20 mg, 1 tab, Route: PO, Drug form: TAB, Bedtime, Start date: 07/28/11 21:00:00, Duration: 30 day, Stop date: 08/26/11 21:00:00 [facility] metFORmin 500 mg oral tablet 2011-07-28 23:00:00 No Palur V Frederick 500 mg, 1 tab, Route: PO, Dr ug form: TAB, BID-Meals, Start date: 07/28/11 17:00:00, Duration: 30 day, Stop date: 08/27/11 8:00:00 [facility] Tylenol 2011-07-28 10:25:00 No Palur V Frederick 650 mg, 2 tab, Route: PO, Drug form: TAB, Q6H, PRN Pain, Start date: 07/28/11 4:25:00, Duration: 30 day, Stop date: 08/27/11 4:24:00 [facility] Saline Flush 0.9% 2011-07-28 03:00:00 No Caden Kingston 5 ml, Route: IVP, Drug Form: INJ, Q12H, Start date: 07/27/11 21:00:00, Duration: 30 day, Stop date: 08/26/11 9:00:00 [facility] atropine 2011-07-28 01:19:00 No Caden Kingston 0.5 mg, 5 mL, Route: IVP, Drug form: INJ, PRN, PRN Bradycardia, Start date: 07/27/11 19:19:00, Duration: 30 day, Stop date: 08/26/11 19:18:00 [facility] aspirin 325 mg tablet, enteric coated 2011-07-28 01:00:00 No Caden Nasim 325 mg, 1 tab, Route : PO, Drug form: ECTAB, Q24H, Start date: 07/27/11 19:00:00, Duration: 30 day, Stop date: 08/25/11 19:00:00 [facility] Saline Flush 0.9% 2011-07-28 00:25:00 No Cdaen Nasim 5 ml, Route: IVP, Drug Form: INJ, PRN, PRN Line Flush, Start date: 07/27/11 18:25:00, Duration: 30 day, Stop date: 08/26/11 18:24:00 [facility] nitroglycerin SL Tab 2011-07-28 00:25:00 No Caden Grov er 0.4 mg, 1 tab, Route: SL, Drug form: TAB, Q5Min, PRN Chest Pain, Start date: 07/27/11 18:25:00, Duration: 3 doses or times, Stop date: Limited # of times [facility] Dextrose 50% Syringe 2011-07-28 00:24:00 No Caden Grov er 12.5 gm, 25 mL, Route: IVP, Drug Form: INJ, PRN, PRN Blood Glucose Results, Start date: 07/27/11 18:24:00, Duration: 30 day, Stop date: 08/26/11 18:23:00 [facility] glucagon 2011-07-28 00:24:00 No Caden Nasim 1 mg, Route: IM, Drug form: PDR/INJ, PRN, PRN Blood Glucose Results, Start date: 07/27/11 18:24:00, Duration: 30 day, Stop date: 08/26/11 18:23:00 [facility] insulin aspart 2011-07-28 00:24:00 No Caden Nasim 2 unit, 0.02 mL, Route: SUB-Q, Drug form: SOLN, TID-Before Meals, PRN Blood Glucose Results, Start date: 07/27/11 18:24:00, Duration: 30 day, Stop date: 08/26/11 18:23:00 [facility] Tylenol 2011-07-27 23:44:00 No Cornelius Montanezball 1,000 mg, Route: PO, Drug form: TAB, ONCE, PRN Pain, Priority: STAT, Start date: 07/27/11 17:44:00, Stop date: 08/26/11 17:43:00 [facility] metFORmin 500 mg oral tablet 2011-07-27 22:00:40 Yes Palur V Frederick 500 mg, 1 tab, PO, BID-Meals, Substitution Allowed [facility] hydrochlorothiazide-lisinopril 12.5 mg-10 mg oral tablet 2011-07-27 22:00:27 Yes 1 tab, PO, Daily, Substitution A llowed, Maintenance [facility] simvastatin 2011-07-27 22:00:11 Yes Palur V Frederick 20 mg, PO, Bedtime, Substitution Allowed [facility] Vitamin D 50,000 intl units oral capsule 2011-07-27 22:00:01 Yes 50,000 IntlUnit, 1 cap, PO, QFri, Substitution Allowed [facility] ibuprofen 400 mg oral tablet 2011-07-27 21:59:45 Yes 400 mg, 1 tab, PO, TID, PRN, as needed for headache, Substitution Allowed [facility] Saline Flush 0.9% 2011-07-27 20:54:00 No Caden Rouse 5 ml, Route: IVP, Drug Form: INJ, PRN, PRN Line Flush, Start date: 07/27/11 14:54:00, Duration: 24 hr, Stop date: 07/28/11 14:53:00 [facility] aspirin 325 mg tablet 2011-07-27 20:54:00 No Cornelius Hernandez all 325 mg, Route: PO, Drug form: TAB, ONCE, Priority: STAT, Start date: 07/27/11 14:54:00, Stop date: 07/27/11 14:54:00 [facility] Amlodipine Besylate 10 Mg Tablet Amlodipine Besylate 10 Mg Tablet Yes 10 Daily [facility] Aspirin 81 Mg Tab.chew Aspirin 81 Mg Tab.chew Yes 81 Daily [facility] Atorvastatin Calcium 80 Mg Tablet Atorvastatin Calcium 80 Mg Tablet Yes 80 Bedtime [facility] Clonidine 1 Each Patch.tdwk Clonidine 1 Each Patch.tdwk Yes Every 72 Hours [facility] Clopidogrel Bisulfate (Clopidogrel) 75 Mg Tablet Clopi dogrel Bisulfate (Clopidogrel) 75 Mg Tablet Yes 75 Daily [facility] Famotidine 20 Mg Tab Famotidine 20 Mg Tab Yes 20 Every 48 Hours [facility] Lisinopril (Prinavil / Zestril) 20 Mg Tablet Lisinopri l (Prinavil / Zestril) 20 Mg Tablet Yes 20 Every 12 Hours [facility] Nifedipine 20 Mg Capsule Nifedipine 20 Mg Capsule Yes 20 Daily [facility] Unk Uti Antibiotic , Unk Uti Antibiotic , 2019-09-10 00:00:00 No [facility] Rivastigmine Tartrate (Rivastigmine) 6 Mg Capsule, 6 M g Peg Tube Rivastigmine Tartrate (Rivastigmine) 6 Mg Capsule, 6 Mg Peg Tube 2019-09-02 00:0 0:00 No 6 Twice A Day [facility] Alendronate Sodium 70 Mg Tablet, 70 Alendronate Sodium 70 Mg Tab let, 70 2019-08-11 00:00:00 No 70 Weekly [facility] Aspirin 325 Mg Tablet, 325 Mg Oral Aspirin 325 Mg Tablet, 325 Mg Oral 2019-08-11 00:00:00 No 325 Daily [facility] Metoprolol Succinate 25 Mg Tab.er.24h, 12.5 Mg Oral Me toprolol Succinate 25 Mg Tab.er.24h, 12.5 Mg Oral 2019-08-11 00:00:00 No 12.5 Twice A Day [facility] Pantoprazole Sodium (Protonix) 40 Mg Tablet., 40 Mg Oral Pantoprazole Sodium (Protonix) 40 Mg Tablet., 40 Mg Oral 2019-08-11 00:00:00 No 40 Daily [facility] Trazodone Hcl 50 Mg Tablet, 50 Mg Oral Trazodone Hcl 50 Mg Table t, 50 Mg Oral 2019-08-11 00:00:00 No 50 Bedtime as needed fo r Insomnia [facility] Vit D2 09949 , Vit D2 94271 , 2019-08-11 00:00:00 No Weekly [facility] Atorvastatin , 80 Mg Oral Atorvastatin , 80 Mg Oral 00:00:00 No 80 Daily [facility] Atorvastatin Calcium 10 Mg Tablet, 40 Mg Oral Atorvast atin Calcium 10 Mg Tablet, 40 Mg Oral 2019-04-19 00:00:00 No 40 Bedtime [facility] Glipizide 5 Mg Tablet, 2.5 Mg Oral Glipizide 5 Mg Tablet, 2.5 Mg Oral 2019-04-19 00:00:00 No 2.5 Daily [facility] Hydrochlorothiazide 25 Mg Tablet, 12.5 Mg Oral Hydroch lorothiazide 25 Mg Tablet, 12.5 Mg Oral 2019-04-19 00:00:00 No 12.5 Daily [facility] Lisinopril 10 Mg Tablet, 20 Mg Oral Lisinopril 10 Mg Tablet, 20 Mg Oral 2019-04-19 00:00:00 No 20 Daily [facility] Glipizide 5 Mg Tablet, 5 Mg Oral Glipizide 5 Mg Tablet, 5 Mg Ora l 2019-01-05 00:00:00 No 5 Daily [facility] Amlodipine Besylate 5 Mg Tablet, 5 Mg Oral Amlodipine Besylate 5 Mg Tablet, 5 Mg Oral 2019-01-02 00:00:00 No 5 Daily [facility] Vital Signs Vital Name Observation Time Observation Value Comments Source Systolic (mm Hg) 2019-01-19 18:06:00 M edical Group Diastolic (mm Hg) 2019-01-19 18:06:00 Medical Group Weight 2019-01-19 15:34:00 [facility] al [facility] Height 2019-01-19 15:34:00 157.48 cm Medic al [facility] BMI Calculated 2019-01-19 15:34:00 Med ical Group Temperature Oral (F) 2019-01-19 15:34:00 98.0 F [facility] Systolic (mm Hg) 2019-01-19 15:34:00 [facility] Diastolic (mm Hg) 2019-01-19 15:34:00 [facility] Respitory Rate 2019-01-19 15:34:00 [facility] Heart Rate 2019-01-19 15:34:00 [facility] BMI Calculated 2018-10-20 16:23:00 [facility] Group Weight 2018-10-20 16:23:00 [facility] Height 2018-10-20 16:23:00 154.94 cm [facility] Temperature Oral (F) 2018-10-20 16:23:00 97.9 F [facility] Respitory Rate 2018-10-20 16:23:00 Med ical Group Heart Rate 2018-10-20 16:23:00 [facility] Systolic (mm Hg) 2018-10-20 16:23:00 M edical Group Diastolic (mm Hg) 2018-10-20 16:23:00 Medical Group Temperature Oral (F) 2018-10-09 19:23:00 98.0 F [facility] Respitory Rate 2018-10-09 19:23:00 Med ical Group Heart Rate 2018-10-09 19:23:00 [facility] Weight 2018-10-09 19:23:00 Medic al Group BMI Calculated 2018-10-09 19:23:00 Med ical Group Systolic (mm Hg) 2018-10-09 19:23:00 M edical Group Diastolic (mm Hg) 2018-10-09 19:23:00 [facility] Height 2018-10-09 19:23:00 157.48 cm [facility] Weight 2018-09-19 16:42:00 [facility] Height 2018-09-19 16:42:00 157.48 cm [facility] BMI Calculated 2018-09-19 16:42:00 Med ical Group Temperature Oral (F) 2018-09-19 16:42:00 98.5 F [facility] Respitory Rate 2018-09-19 16:42:00 [facility] Heart Rate 2018-09-19 16:42:00 [facility] Systolic (mm Hg) 2018-09-19 16:42:00 [facility] Diastolic (mm Hg) 2018-09-19 16:42:00 Medical Group Heart Rate 2014-03-06 08:46:00 [facility] Respitory Rate 2014-03-06 08:46:00 [facility] Diastolic (mm Hg) 2014-03-06 08:46:00 [facility] Systolic (mm Hg) 2014-03-06 08:46:00 [facility] Diastolic (mm Hg) 2014-03-06 03:24:00 [facility] Systolic (mm Hg) 2014-03-06 03:24:00 [facility] Heart Rate 2014-03-06 03:24:00 [facility] east Respitory Rate 2014-03-06 03:24:00 [facility] Height 2014-03-05 22:44:00 160.02 cm [facility] BMI Calculated 2014-03-05 22:44:00 [facility] Weight 2014-03-05 22:44:00 [facility] Temperature Oral (F) 2014-03-05 22:44:00 98.3 F [facility] Heart Rate 2014-03-05 22:44:00 [place] Systolic (mm Hg) 2014-03-05 22:44:00 [facility] Respitory Rate 2014-03-05 22:44:00 [facility] Diastolic (mm Hg) 2014-03-05 22:44:00 [facility] Heart Rate 2013-04-01 18:51:00 [facility] Systolic (mm Hg) 2013-04-01 18:51:00 [facility] Diastolic (mm Hg) 2013-04-01 18:51:00 [facility] Respitory Rate 2013-04-01 18:51:00 [facility] Respitory Rate 2013-04-01 15:19:00 [facility] Diastolic (mm Hg) 2013-04-01 15:19:00 [facility] Heart Rate 2013-04-01 15:19:00 [facility] Systolic (mm Hg) 2013-04-01 15:19:00 [facility] Weight 2013-04-01 14:47:00 [place] Height 2013-04-01 14:47:00 160.02 cm [facility] east Respitory Rate 2013-04-01 14:47:00 [facility] Heart Rate 2013-04-01 14:47:00 [facility] Systolic (mm Hg) 2013-04-01 14:47:00 [facility] Diastolic (mm Hg) 2013-04-01 14:47:00 [facility] Temperature Oral (F) 2013-04-01 14:47:00 98.2 F [facility] Heart Rate 2011-08-01 13:57:00 [facility] Temperature Oral (F) 2011-08-01 13:57:00 98.2 F [facility] Respitory Rate 2011-08-01 13:57:00 [facility] Systolic (mm Hg) 2011-08-01 13:57:00 [facility] Diastolic (mm Hg) 2011-08-01 13:57:00 [facility] Diastolic (mm Hg) 2011-08-01 10:00:00 [facility] Heart Rate 2011-08-01 10:00:00 [facility] Systolic (mm Hg) 2011-08-01 10:00:00 [facility] Respitory Rate 2011-08-01 10:00:00 [facility] Temperature Oral (F) 2011-08-01 10:00:00 97.4 F [facility] Diastolic (mm Hg) 2011-08-01 06:00:00 [facility] Respitory Rate 2011-08-01 06:00:00 [facility] Systolic (mm Hg) 2011-08-01 06:00:00 [facility] Heart Rate 2011-08-01 06:00:00 [facility] Temperature Oral (F) 2011-08-01 06:00:00 98.2 F [facility] Weight 2011-07-28 00:35:00 [facility] Height 2011-07-28 00:35:00 157.48 cm [facility] Weight 2011-07-27 20:46:00 [facility] Height 2011-07-27 20:46:00 157.48 cm [facility] Procedures Procedure Date / Time Performed Performing Clinician [facility] e Computed tomography of brain without radiopaque contrast 00:00:00 MEENAKSHI GANDHI [facility] CT of abdomen and pelvis without contrast 2019-08-25 00:00:00 EHSAN HAWK [facility] EGD PLACE GASTROSTOMY TUBE 2019-08-10 00:00:00 JOSR SAENZ [facility] HEMODIALYSIS ONE EVALUATION 2019-08-10 00:00:00 NICOLE PONCE [facility] INSERTION OF FEEDING DEVICE INTO STOMACH, PERC APPROACH 2019 00:00:00 JOSR SAENZ [facility] Computed tomography of chest without contrast 2019-07-10 00: 00:00 [facility] Computed tomography of abdomen without contrast 2019-07-10 0 0:00:00 [facility] Computed tomography of brain without radiopaque contrast 00:00:00 NADIA SOW [facility] Computed tomography of chest without contrast 2019-07-03 00: 00:00 [facility] Magnetic resonance imaging of brain without contrast 2019-06 00:00:00 [facility] Computed tomography angiography of brain 2019-07-03 00:00:00 NADIA GARCIA [facility] CT angiography of neck 2019-07-03 00:00:00 NADIA SOW [facility] Ultrasound guidance for vascular access 2019-07-01 00:00:00 CELENA HINTON AM [facility] Sedate Initial > 5 Yrs 2019-07-01 00:00:00 MICHAEL BEACH [facility] INSERT OF TUNNEL VAD INTO CHEST SUBCU/FASCIA, PERC APPROACH 2019-07-01 00:00:00 MICHAEL BEACH [facility] INSERTION OF INFUSION DEV INTO SUP VENA CAVA, PERC APPROACH 2019-07-01 00:00:00 MICHAEL BEACH [facility] EXCISION OF STOMACH, ENDO, DIAGN 2019-06-30 00:00:00 HAN SAENZ [facility] EXCISION OF STOMACH, PYLORUS, ENDO, DIAGN 2019-06-30 00:00:00 ROYAL DDJOSR BACH [facility] Computed tomography of abdomen without contrast 2019-06-29 0 0:00:00 PRASHANTHMARYSE VENTURAIN Loyda [facility] US abdomen complete 2019-06-29 00:00:00 NORFOLKABDIRASHID [facility] PERFORMANCE OF URINARY FILTRATION, <6 HRS/DAY 2019-06-27 00: 00:00 NICOLE PONCE [facility] X-ray of chest, two views 2019-04-17 00:00:00 NATALIA GREEN [facility] Magnetic resonance angiography of head without contrast 2018 00:00:00 ZAINA GORDON Sunni [facility] Magnetic resonance angiography of neck without contrast 2018 00:00:00 EVANZAINA [facility] Magnetic resonance imaging of brain without contrast 2018-12 00:00:00 KARLI MANSFIELD V [facility] Computed tomography of brain without radiopaque contrast 201 02-28-11 00:00:00 JANIE HILL [facility] Bone density scan<sup>1</sup> 2018-10-15 05:00:00 Medical Group, [facility] Mammogram<sup>2</sup> 2018-10-15 05:00:00 Med ical Group, [facility] Diabetic Retinopathy Study 7 field stere oscopic fundus photography<sup>3, 4</sup> 2018-10-08 05:00:00 Medical Group, [facility] Colonoscopy<sup>5</sup> 2014-06-24 00:00:00 [facility] visit for the evalu ation and management of a patient, which requires these 3 sullivan components: A detailed history; A detailed examination; and Medical decision making of moderate complexity. Counseling and/or coordination of care with o 2013-04-01 05:00:00 [facility] Therapeutic, prophylactic, or diagnostic injection (specify substance or drug); subcutaneous or intramuscular 2013-04-01 05:00:00 [facility] Hysterectomy<sup>6</sup> 1979-06-24 00:00:00 Medical Group, [facility] Appendectomy Medical Group , [facility] Cholecystectomy Medical [facility] , [facility] , [facility] Appendectomy [facility] Cholecystectomy [facility] Tubal ligation [facility] Encounters Start Date/Time End Date/Time Encounter Type Admission Type Attendi [facility] Care Department Encounter ID Source 2018-09-30 16:57:58 Outpatient [facility] [id number] [facility] 2019-09-04 11:14:00 2019-09-10 16:46:00 Discharged Inpatient 1 MEENAKSHI GANDHI [facility] [id number] [facility] 2019-08-28 10:40:00 2019-08-28 11:27:00 Departed Emergency Room [facility] [id number] [facility] 2019-08-25 17:32:00 2019-08-25 21:42:00 Departed Emergency Room 1 EHSAN BAE [facility] [id number] [facility] 2019-08-10 21:35:00 2019-08-12 21:45:00 Discharged Inpatient (obs) 1 JOSR SAENZ [facility] [id number] [facility] 2019-07-01 06:10:00 2019-07-14 21:16:00 Discharged Inpatient 1 CELENA CHRISTENSEN [facility] [id number] [facility] 2019-07-08 12:33:47 2019-07-10 05:59:59 Phone Message [facility] Internal Medicine [facility] [id number] Medical Group 2019-07-08 06:33:47 2019-07-09 23:59:59 Outpatient [facility] [id number] 2019-06-22 11:47:00 2019-06-22 16:49:00 Departed Emergency Room 1 MEENAKSHI GANDHI [facility] [id number] [facility] 2019-05-25 13:37:21 2019-05-27 05:59:59 Phone Message [facility] Internal Medicine [facility] [id number] Medical Group 2019-05-25 07:37:21 2019-05-26 23:59:59 Outpatient [facility] [id number] 2019-04-21 10:30:00 2019-04-21 10:30:00 Outpatient MHIEA LT [facility]ALT [id number] [facility] 2019-04-17 19:23:00 2019-04-20 10:33:00 Discharged Inpatient 1 MEENAKSHI GANDHI [facility] [id number] [facility] 2019-04-07 17:02:54 2019-04-09 04:59:59 Phone Message [facility] Internal Medicine [facility] [id number] Medical Group 2019-04-07 12:02:54 2019-04-08 23:59:59 Outpatient [facility] [id number] 2019-01-27 19:36:25 2019-01-29 04:59:59 Phone Message MHIEALT [facility] [id number] Medical Group 2019-01-27 14:36:25 2019-01-28 23:59:59 Outpatient [facility] [id number] 2019-01-19 15:00:00 2019-01-20 04:59:59 Outpatient [facility]ALT [facility] [id number] Medical Group 2019-01-19 10:00:00 2019-01-19 23:59:59 Outpatient Marco Cardosoa Maria [facility] [id number] 2019-01-19 10:00:00 2019-01-19 10:00:00 Outpatient MHIEA LT [facility] [id number] [facility] 2019-01-01 16:57:00 2019-01-05 13:11:00 Discharged Inpatient 1 ZAINA GORDON [facility] [id number] [facility] 2018-11-28 21:00:00 2018-11-28 21:00:00 Ambulatory Pre-Reg MH[facility]ALT [facility] [id number] Medical Group 2018-11-28 16:00:00 2018-11-28 16:00:00 Outpatient MHIEA LT [facility] [id number] [facility] 2018-11-28 16:00:00 2018-11-28 16:00:00 Outpatient Shelton Jackson [facility] [id number] 2018-10-27 16:23:00 2018-10-27 18:01:00 Departed Emergency Room [facility] [id number] [facility] 2018-10-20 16:00:00 2018-10-21 04:59:59 Outpatient MHIEALT [facility] [id number] Medical Group 2018-10-20 11:00:00 2018-10-20 23:59:59 Outpatient Ciara Cardoso [facility] [id number] 2018-10-20 18:00:00 2018-10-20 18:00:00 Ambulatory Pre-Reg MH[facility]ALT [facility] [id number] Medical Group 2018-10-20 13:00:00 2018-10-20 13:00:00 Outpatient MHIEA LT [facility] [id number] [facility] 2018-10-20 13:00:00 2018-10-20 13:00:00 Outpatient Ciara Cardoso [facility] [id number] 2018-10-20 11:00:00 2018-10-20 11:00:00 Outpatient MHIEA LT [facility] [id number] [facility] 2018-10-15 19:05:00 2018-10-16 04:59:00 Outpatient MHIEALT [facility] [id number] [facility] 2018-10-15 14:05:00 2018-10-15 23:59:00 [facility] [id number] 2018-10-15 14:05:00 2018-10-15 14:05:00 Outpatient [facility] MED [id number] MH 2018-10-09 20:30:00 2018-10-10 04:59:59 Outpatient MHIEALT [facility] [id number] [facility] 2018-10-09 15:30:00 2018-10-09 23:59:59 Outpatient Ciara Cardoso [facility] [id number] 2018-10-09 15:30:00 2018-10-09 15:30:00 Outpatient MHIEA LT [facility] [id number] [facility] 2018-09-30 15:13:00 2018-10-02 17:49:00 Discharged Inpatient (obs) 1 ZAINA GORDON [facility] [id number] [facility] 2018-09-22 17:25:00 2018-09-23 04:59:00 Outpatient MHIEALT [facility] [id number] [facility] 2018-09-22 12:25:00 2018-09-22 23:59:00 [facility] [id number] 2018-09-22 12:25:00 2018-09-22 12:25:00 Outpatient [facility] MED [id number] [facility] 2018-09-19 16:00:00 2018-09-20 04:59:59 Outpatient MHIEALT [facility] [id number] Medical Group 2018-09-19 11:00:00 2018-09-19 23:59:59 Outpatient Ciara Cardoso [facility] [id number] 2018-09-19 11:00:00 2018-09-19 11:00:00 Outpatient MHIEA LT [facility]ALT [id number] [facility] 2018-07-29 11:33:00 2018-07-29 14:15:00 Departed Emergency Room [facility] [id number] [facility] 2018-07-12 16:59:00 2018-07-18 10:56:00 Discharged Inpatient 1 ZAINA GORDON [facility] [id number] [facility] 2014-03-05 22:41:00 2014-03-06 08:48:00 Emergency Center MH[facility]ALT [facility] [id number] [facility] 2014-03-05 17:41:00 2014-03-06 03:48:00 Outpatient [place] Susi Harsad [facility] [id number] 2013-07-24 13:30:00 2013-07-24 23:59:00 OD MHIEALT [facility] [id number] [facility] [place] 2013-07-24 13:30:00 2013-07-24 23:59:00 Outpatient MHIEA LT [facility] [id number] [facility] Outpatient Imaging - [place] 2013-04-01 09:45:00 2013-04-01 14:00:00 Emergency MHIEAL T [facility] [id number] [facility] 2013-04-01 09:45:00 2013-04-01 14:00:00 Outpatient MHIEA LT [facility]ALT [id number] [facility] 2013-04-01 09:45:00 2013-04-01 14:00:00 Outpatient MHIEA LT [facility] [id number] [facility] 2013-04-01 09:45:00 2013-04-01 14:00:00 Outpatient MHIEA LT [facility]ALT [id number] [facility] 2013-04-01 09:45:00 2013-04-01 14:00:00 Outpatient MHIEA LT [facility] [id number] [facility] 2011-07-27 15:44:00 2011-08-01 11:15:00 Inpatient MHIEAL T [facility] [id number] [facility] Results Test Description Test Time Test Comments Results Result Comments Source Bedside Glucose 2019-09-10 11:56:00 Test Item Bedside Glucose (test code = 53626-1) 89 70-120 Meter ID: [id number] [facility] Antibody 2019-09-08 15:30:00* Test Item Value Reference Range Interpretation Comments Hepatitis Be Antibody (test code = 47816-9) Negative Negative Performed at: [facility] [address] [id number] Acute Care Nurse Practitioner: Kanika Corrales MD, Phone: [phone] [facility] [place] [place] B Surface Antibody, [id number] 10:48:00* Test Item Value Reference Range Interpretation Comments Hepatitis B Surface Antibody, Quant (test code = 5194-6) <3.1 Immunity>9.9 Status of Immunity Anti-HBs Level Inconsistent with Immunity 0.0 - 9.9Consistent with Immunity >9.9CHI [facility] [place] [place] B Core Total [id number] 10:48:00* Test Item Value Reference Range Interpretation Comments Hepatitis B Core Total Antibody (test code = 46700-9) Negative Negative [facility] IgM [id number] 10:48:00* Test Item Value Reference Range Interpretation Comments Hepatitis B Core IgM Antibody (test code = 24684-6) Negative Ne gative Performed at: [facility] [address] [id number] Director: Kevin Lino MD, Phone: [phone] [facility] Southeastodium [id number] 06:01:00* Test Item Value Reference Range Interpretation Comments Sodium Level (test code = 2951-2) 136 136-145 [facility] [id number] 06:01:00* Test Item Value Reference Range Interpretation Comments Potassium Level (test code = 2823-3) 3.7 3.5-5.1 [facility] HospitalChloride [id number] 06:01:00* Test Item Value Reference Range Interpretation Comments Chloride Level (test code = 2075-0) 103 98-107 [facility] HospitalCarbon Dioxide [id number] 06:01:00* Test Item Value Reference Range Interpretation Comments Carbon Dioxide Level (test code = 2028-9) 26 22-29 [facility] HospitalAnion [id number] 06:01:00* Test Item Value Reference Range Interpretation Comments Anion Gap (test code = 15288-8) 10.7 8-16 [facility] Urea [id number] 06:01:00* Test Item Value Reference Range Interpretation Comments Blood Urea Nitrogen (test code = 3094-0) 32 7-26 [facility] HospitalCreatinine2020-03-16 06:01:00* Test Item Value Reference Range Interpretation Comments Creatinine (test code = 2160-0) 4.40 0.57-1.11 [facility] HospitalBUN/Creatinine [id number] 06:01:00* Test Item Value Reference Range Interpretation Comments BUN/Creatinine Ratio (test code = 3097-3) 7 6-25 [facility] HospitalEstimat Glomerular Filtration Rate 2019-09-07 06:01:00* Test Item Value Reference Range Interpretation Comments Estimat Glomerular Filtration Rate (test code = 087447907) 10 >60 Ranges were taken from the National Kidney Disease Education Program and the On license of [facility] [employer] literature.Reference ranges:60 or greater: Uduvww63-05 ( for 3 consecutive months): Chronic kidney disease 15 or less: Kidney failureUT [facility] HospitalGlucose Ohale6044-27-84 06:01:00* Test Item Value Reference Range Interpretation Comments Glucose Level (test code = PMH0091) 84 74-118 [facility] HospitalCalcium Cezcv4375-52-61 06:01:00* Test Item Value Reference Range Interpretation Comments Calcium Level (test code = 97378-9) 9.0 8.4-10.2 [facility] HospitalMagnesium Xzcpv0247-65-72 06:01:00* Test Item Value Reference Range Interpretation Comments Magnesium Level (test code = 62430-9) 2.0 1.3-2.1 [facility] HospitalTotal Ypzemstof0541-03-31 06:01:00* Test Item Value Reference Range Interpretation Comments Total Bilirubin (test code = 1975-2) 0.6 0.2-1.2 [facility] HospitalAspartate Amino Transf (AST/SGOT) 2019-09-07 06:01:00* Test Item Value Reference Range Interpretation Comments Aspartate Amino Transf (AST/SGOT) (test code = Aspartate Amino Transf (AST/SGOT)) 18 5-34 [facility] HospitalAlanine Aminotransferase (ALT/SGPT) 2019-09-07 06:01:00* Test Item Value Reference Range Interpretation Comments Alanine Aminotransferase (ALT/SGPT) (test code = 1742-6) 19 0-55 [facility] HospitalTotal Eouohbo4767-23-00 06:01:00* Test Item Value Reference Range Interpretation Comments Total Protein (test code = 2885-2) 6.2 6.5-8.1 [facility] HospitalAlbumin2020-03-16 06:01:00* Test Item Value Reference Range Interpretation Comments Albumin (test code = 1751-7) 2.8 3.5-5.0 [facility] HospitalGlobulin2020-03-16 06:01:00* Test Item Value Reference Range Interpretation Comments Globulin (test code = 94722-3) 3.4 2.3-3.5 [facility] HospitalAlbumin/Globulin Towts6887-82-04 06:01:00 * Test Item Value Reference Range Interpretation Comments Albumin/Globulin Ratio (test code = 1759-0) 0.8 0.8-2.0 [facility] HospitalAlkaline Sueygynmpds4846-02-53 06:01:00* Test Item Value Reference Range Interpretation Comments Alkaline Phosphatase (test code = 6768-6) 74 40-150 [facility] HospitalWhite Blood Txupb6528-51-05 05:47:00* Test Item Value Reference Range Interpretation Comments White Blood Count (test code = 6690-2) 9.44 4.8-10.8 [facility] HospitalRed Blood Wwyxk0042-23-55 05:47:00* Test Item Value Reference Range Interpretation Comments Red Blood Count (test code = 789-8) 4.58 3.6-5.1 [facility] HospitalHemoglobin2020-03-16 05:47:00* Test Item Value Reference Range Interpretation Comments Hemoglobin (test code = 99700-8) 12.9 12.0-16.0 [facility] HospitalHematocrit2020-03-16 05:47:00* Test Item Value Reference Range Interpretation Comments Hematocrit (test code = 4544-3) 40.4 34.2-44.1 [facility] HospitalMean Corpuscular Iizvlx5389-39-17 05:47:00* Test Item Value Reference Range Interpretation Comments Mean Corpuscular Volume (test code = 787-2) 88.2 81-99 [facility] HospitalMean Corpuscular Fyzdmkxxdd1724-22-68 05:47:00* Test Item Value Reference Range Interpretation Comments Mean Corpuscular Hemoglobin (test code = 785-6) 28.2 28-32 [facility] HospitalMean Corpuscular Hemoglobin Concent 2019-09-07 05:47:00* Test Item Value Reference Range Interpretation Comments Mean Corpuscular Hemoglobin Concent (test code = 786-4) 31.9 31-35 [facility] HospitalRed Cell Distribution Usdoy2238-99-42 05:47:00* Test Item Value Reference Range Interpretation Comments Red Cell Distribution Width (test code = 22305-8) 15.8 11.7 -14.4 [facility] HospitalPlatelet Ejzgg3477-71-90 05:47:00* Test Item Value Reference Range Interpretation Comments Platelet Count (test code = 777-3) 355 140-360 [facility] HospitalNeutrophils (%) (Auto)2019-09-07 05:47:00 * Test Item Value Reference Range Interpretation Comments Neutrophils (%) (Auto) (test code = 88928-5) 62.4 38.7-80.0 [facility] HospitalLymphocytes (%) (Auto)2019-09-07 05:47:00 * Test Item Value Reference Range Interpretation Comments Lymphocytes (%) (Auto) (test code = 736-9) 24.4 18.0-39.1 [facility] HospitalMonocytes (%) (Auto)2019-09-07 05:47:00* Test Item Value Reference Range Interpretation Comments Monocytes (%) (Auto) (test code = 5905-5) 6.1 4.4-11.3 [facility] HospitalEosinophils (%) (Auto)2019-09-07 05:47:00 * Test Item Value Reference Range Interpretation Comments Eosinophils (%) (Auto) (test code = 713-8) 5.8 0.0-6.0 [facility] HospitalBasophils (%) (Auto)2019-09-07 05:47:00* Test Item Value Reference Range Interpretation Comments Basophils (%) (Auto) (test code = 706-2) 1.0 0.0-1.0 [facility] HospitalIM GRANULOCYTES %2019-09-07 05:47:00* Test Item Value Reference Range Interpretation Comments IM GRANULOCYTES % (test code = IM GRANULOCYTES %) 0.3 0.0- 1.0 [facility] HospitalNeutrophils # (Auto)2019-09-07 05:47:00* Test Item Value Reference Range Interpretation Comments Neutrophils # (Auto) (test code = 751-8) 5.9 2.1-6.9 [facility] HospitalLymphocytes # (Auto)2019-09-07 05:47:00* Test Item Value Reference Range Interpretation Comments Lymphocytes # (Auto) (test code = 52968-3) 2.3 1.0-3.2 [facility] HospitalMonocytes # (Auto)2019-09-07 05:47:00* Test Item Value Reference Range Interpretation Comments Monocytes # (Auto) (test code = 742-7) 0.6 0.2-0.8 [facility] HospitalEosinophils # (Auto)2019-09-07 05:47:00* Test Item Value Reference Range Interpretation Comments Eosinophils # (Auto) (test code = 711-2) 0.6 0.0-0.4 [facility] HospitalBasophils # (Auto)2019-09-07 05:47:00* Test Item Value Reference Range Interpretation Comments Basophils # (Auto) (test code = 704-7) 0.1 0.0-0.1 [facility] HospitalAbsolute Immature Granulocyte (auto 2019-09-07 05:47:00* Test Item Value Reference Range Interpretation Comments Absolute Immature Granulocyte (auto (jake t code = Absolute Immature Granulocyte (auto) 0.03 0-0.1 [facility] HospitalPhosphorus Rbyhc6098-22-31 06:16:00* Test Item Value Reference Range Interpretation Comments Phosphorus Level (test code = FYT3985) 3.3 2.3-4.7 [facility] HospitalTriglycerides Ixxpz4223-55-14 09:23:00* Test Item Value Reference Range Interpretation Comments Triglycerides Level (test code = 2571-8) 112 0-149 [facility] HospitalCholesterol Uxbuy6979-98-66 09:23:00* Test Item Value Reference Range Interpretation Comments Cholesterol Level (test code = 2093-3) 100 0-199 Less than 200 mg/dL Low Kcun281 - 239 mg/dL Borderline Fmrm993 m g/dl and greater High Risk [facility] HospitalLDL Jkscpgknsok6984-67-38 09:23:00* Test Item Value Reference Range Interpretation Comments LDL Cholesterol (test code = 2089-1) 45 60-130 [facility] HospitalHDL Rjjqjodwtjz0529-81-91 09:23:00* Test Item Value Reference Range Interpretation Comments HDL Cholesterol (test code = 2085-9) 33 40-60 [facility] HospitalCholesterol/HDL Rwtbs6543-02-09 09:23:00 * Test Item Value Reference Range Interpretation Comments Cholesterol/HDL Ratio (test code = 9830-1) 3.0 3.0-3.6 [facility] HospitalUrine Kzrgy0673-73-14 06:31:00* Test Item Value Reference Range Interpretation Comments Urine Color (test code = 5778-6) YELLOW YELLOW [facility] HospitalUrine Ioewmag0978-78-62 06:31:00* Test Item Value Reference Range Interpretation Comments Urine Clarity (test code = 02989-0) TURBID CLEAR [facility] HospitalUrine Specific Snubdtf3126-84-60 06:31:00 * Test Item Value Reference Range Interpretation Comments Urine Specific [place] (test code = 5811-5) 1.025 1.010-1.02 5 [facility] HospitalUrine qW3633-33-16 06:31:00* Test Item Value Reference Range Interpretation Comments Urine pH (test code = 06464-0) 5.5 5-7 [facility] HospitalUrine Leukocyte Lrgrahmg2159-52-53 06:31:00* Test Item Value Reference Range Interpretation Comments Urine Leukocyte Esterase (test code = 5799-2) TRACE NEGATIVE [facility] HospitalUrine Ormidfl6549-84-13 06:31:00* Test Item Value Reference Range Interpretation Comments Urine Nitrite (test code = 66208-8) NEGATIVE NEGATIVE [facility] HospitalUrine Vluajpi2090-70-98 06:31:00* Test Item Value Reference Range Interpretation Comments Urine Protein (test code = 5804-0) 3+ NEGATIVE [facility] HospitalUrine Glucose (UA)2019-09-03 06:31:00* Test Item Value Reference Range Interpretation Comments Urine Glucose (UA) (test code = 2349-9) NEGATIVE NEGATIVE [facility] HospitalUrine Dqdormf7226-39-29 06:31:00* Test Item Value Reference Range Interpretation Comments Urine Ketones (test code = 09671-4) 1+ NEGATIVE [facility] Ypjqatacnlvs0210-64-29 06:31:00* Test Item Value Reference Range Interpretation Comments Urine Urobilinogen (test code = 29445-9) 0.2 0.2-1 [facility] Hzjqhsawe6970-71-97 06:31:00* Test Item Value Reference Range Interpretation Comments Urine Bilirubin (test code = 1978-6) SMALL NEGATIVE [facility] Iyhac2659-04-68 06:31:00* Test Item Value Reference Range Interpretation Comments Urine Blood (test code = 56233-7) MODERATE NEGATIVE [facility] HospitalUrine XNT5238-04-15 06:31:00* Test Item Value Reference Range Interpretation Comments Urine WBC (test code = 5821-4) 11-20 0-5 [facility] HospitalUrine NSX0736-09-63 06:31:00* Test Item Value Reference Range Interpretation Comments Urine RBC (test code = 44378-7) 21-50 0-5 [facility] Hdkofqku5989-87-92 06:31:00* Test Item Value Reference Range Interpretation Comments Urine Bacteria (test code = 89612-6) MODERATE NONE [facility] HospitalUrine Epithelial Qngde1876-84-99 06:31:00 * Test Item Value Reference Range Interpretation Comments Urine Epithelial Cells (test code = 40139-0) RARE NONE [facility] Amorphous Xuefsdyb3034-43-80 06:31:00* Test Item Value Reference Range Interpretation Comments Urine Amorphous Sediment (test code = 8246-1) FEW FEW [facility] HospitalCreatine Kinase BA1169-34-78 21:27:00* Test Item Value Reference Range Interpretation Comments Creatine Kinase MB (test code = 60561-6) 0.60 0-5.0 [facility] HospitalTroponin S8991-31-32 21:27:00* Test Item Value Reference Range Interpretation Comments Troponin I (test code = VEK3575) < 0.001 0-0.300 [facility] HospitalCreatine Ylifpp6161-11-60 21:18:00* Test Item Value Reference Range Interpretation Comments Creatine Kinase (test code = 2157-6) 15 29-168 [facility] HospitalCHEST SINGLE (PORTABLE)2019-09-02 19:12:00 [facility] [address] [place] [address] Patient Name: DEO ESCUDERO MR #: [id number] : 1955 Age/Sex: 64/F Req #: [id number] Adm Physician: Ordered by: MEENAKSHI GANDHI MD Report #: [id number] Location: ER Room/Bed: Procedure: [id number] DX/CH EST SINGLE (PORTABLE) Exam Date: 09/02/19 Exam Time: 1829 REPORT STATUS: Signed EXAM INATION: CHEST SINGLE (PORTABLE) COMPARISON: Chest x-ray 08/10/2019 INDICATION: Altered level of consciousness AMS [id number] DISCUSSION: Frontal view of the chest obtained at 1848 hours. HEART AND M EDIASTINUM: The heart is top normal in size. Stable calcifications of the aor tic arch LINES: Dual lumen central venous catheter remains in the SVC LUNGS: The lungs are well inflated and clear. No pneumonia or pulmonary costa a. PLEURA: No pleural effusion or pneumothorax. BONES AND SOFT TISSUE S: Stable degenerative changes of the shoulders and spine. There is a healed left inferior rib fracture. The soft tissues are normal. IMPRESSION: Stable chest. No active disease. Signed by: Dr. Eliz Tyson MD on 09/02/2019 7:15 PM Dictated By: ELIZ TYSON MD Electronically Evelina d By: ELIZ TYSON MD on 09/02/191914 Transcribed By: SCAR on 09/02/191914 COPY TO: MEENAKSHI GANDHI MD CT BRAIN QL0500-32-50 18:56:00 [place] [address] Patient Name: DEO ESCUDERO MR #: [id number] : 1955 Age/Sex: 64/F Req #: [id number] Adm Physician: Ordered by: MEENAKSHI GANDHI MD Report #: [id number] Location: ER Room/Bed: Procedure: [id number] CT/CT BRAIN WO Exam Date: 09/02/19 Exam Time: 1830 REPORT STATUS: Signed History:Altered mental status Comparison studies: None Technique: Axial images wer e obtained from the skull base to the vertex. Coronal and sagittal images taylor nstructed from the axial data. Dose modulation, iterative reconstruction, and/ or weight based adjustment of the mA/kV was utilized to reduce the radiation dose to as low as reasonably achievable. Intravenous contrast: None Findings: Scalp/skull: No abnormalities. Extra-axial spaces: No masses. No fluid collections. Brain sulci: Mildly prominent. Ventricles : Mild compensatory dilatation. No hydrocephalus. Parenchyma: Cortica l encephalomalacic changes in the left superior and middle temporal gyri, whic h extend to the posterior insula and into the inferior parietal lobule, or the result of a distal left MCA vascular insult.. Confluent hypodensities in t he supratentorial white matter are small vessel ischemic changes. Old la cunar insult in the right deep frontal coronal radiata, which extends into the head of the caudate and into the putamen, is associated with compensatory dil atation of the head of the right caudate. No masses, hemorrhage, acute or a dditional chronic cortical vascular insults. Sellar/suprasellar region: No abn ormalities. Craniocervical junction: Patent foramen magnum. No Chiari one mal formation. Incidental findings: Atherosclerotic calcifications in the car otid siphons . Impression: No acute abnormalities. Chronic findin gs: 1. Mildly generalized volume loss. 2. Moderate supratentorial white ma tter small vessel ischemic changes. 3. 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 4. Focal lacunar insult as described. Signed by: Dr. Misti Junior M.D. on 09/02/2019 7:00 PM Dictated By: CRISTINA WHITNEY MD, MD 00 Transcribed By: SCAR on 09/02/19 1900 COPY TO: MEENAKSHI GANDHI MD CT ABDOMEN/PELVIS XA2156-07-64 19:21:00 [place] [address] Patient Name: DEO ESCUDERO MR #: [id number] : 1955 Age/Sex: 64/F Req #: [id number] Adm Physician: Ordered by: EHSAN BAE DO Report #: [id number] Location: ER Room/Bed: Procedure: [id number] CT/CT ABDOMEN/PELVIS WO Exam Date: 08/25/19 Exam Time: 183 0 REPORT STATUS: Signed EXAM: CT Abdomen and Pelvis WITHOUT contrast INDICATION: suprapubic pain 2019 302 1829 COMPARISON: CT abdomen dated 07/10/2019 TECHNIQUE: Abdomen and p betsey were scanned utilizing a multidetector helical scanner from the lung bas e to the pubic symphysis without administration of IV contrast. Absence of int ravenous contrast decreases sensitivity for detection of focal lesions and vas cular pathology. Coronal and sagittal reformations were obtained. Routine prot ocol was performed. IV CONTRAST: None ORAL CONTRAST: Water COMPLICATIONS: None RADIATION DOSE: Total DLP: 478.62 mGy -cm Estimated effective dose: (DLP x 0.015 x size factor) mSv CTDI vol has been reviewed. It is below the limits set by the Radiation Protocol [facility] ([facility]). FINDINGS: LINES and TUBES: There is a new G-tube in alberto ce.. LOWER THORAX: Near-complete resolution of bilateral small pleural eff usions with mild residual atelectasis noted. HEPATOBILIARY: No focal live r lesion. No intrahepatic biliary ductal dilation. Mild common bile duct dilat ation likely due to reservoir effect. GALLBLADDER: There are cholecystecto my clips. SPLEEN: No splenomegaly. PANCREAS: No focal masses or duct al dilatation. ADRENALS: No adrenal nodules. KIDNEYS/URETERS: No hydro nephrosis or solid mass lesions. Punctate nonobstructive calculi are again see n in the left kidney. Mild bilateral perinephric stranding left greater than r ight, unchanged from 06/29/2019. PERITONEUM / RETROPERITONEUM: No free air or fluid. LYMPH NODES: No lymphadenopathy. VESSELS: Scattered atheroscle rotic calcifications of the nonaneurysmal abdominal aorta and major branches. GI TRACT: There is a new G-tube in place. Enteric contrast material in the distended rectum likely due to impaction or stenosis of the lower rectum.. Mil d diverticulosis. No mild wall thickening or obstruction. No evidence of inf lammation BONES AND SOFT TISSUES: Mild degenerative changes of the visualiz ed spine. IMPRESSION: Near-complete resolution of bilateral small pl eural effusions with mild residual atelectasis. Stable punctate nonobstru ctive right calculi. Distended rectum containing enteric contrast material likely due to impaction or stenosis of the lower rectum. No evidence of inflam mation. Colonic diverticulosis. Signed by: Abebe Bañuelos MD on 08/25/2019 7:36 PM Dictated By: ABEBE BAÑUELOS MD 35 Transcribed By: SCAR on 08/25/19 COPY TO: EHSAN BAE DO Hepatitis Be Odnzfvg3318-67-31 21:53:00* Test Item Value Reference Range Interpretation Comments Hepatitis Be Antigen (test code = 14928-0) Negative Negative [facility] HospitalHepatitis B Surface Djwhdnv7846-61-71 21:53:00* Test Item Value Reference Range Interpretation Comments Hepatitis B Surface Antigen (test code = 5196-1) Negative Negat francois [facility] HospitalProthrombin Ciac9417-88-36 23:23:00* Test Item Value Reference Range Interpretation Comments Prothrombin Time (test code = 5902-2) 13.3 11.9-14.5 [facility] HospitalProthromb Time International Ratio 2019-08-10 23:23:00* Test Item Value Reference Range Interpretation Comments Prothromb Time International Ratio (test code = 6301-6) 0.96 Oral Anticoagulant Therapy INR Values:1. Low Intensity Therapy 1.5 - 2.02 . Moderate Intensity Therapy 2.0 - 3.03. High Intensity Therapy(1) 2.5 - 3. 54. High Intensity Therapy(2) 3.0 - 4.05. Panic Value INR > 5.0 [facility] HospitalCHEST SINGLE (PORTABLE)2019-08-10 21:12:00 [place] [address] Patient Name: DEO ESCUDERO MR #: [id number] : 1955 Age/Sex: 64/F Req #: [id number] Adm Physician: Ordered by: JOSR SAENZ MD Report #: [id number] Location: OR Room/Bed: Procedure: DX/C HEST SINGLE (PORTABLE) Exam Date: Exam Time: REPORT STATUS: Signed EXAM: CHEST SI NGLE (PORTABLE) DATE: 08/10/2019 7:57 PM INDICATION: PEG tube dysfunc tion PRE-OP COMPARISON: Chest x-ray, 07/09/2019 FINDINGS: Lines and tubes: Stable appearance of tunneled right IJ dialysis catheter. Heart size normal. No focal pulmonary opacity, pleural effusion or pneumoth orax. Upper abdomen unremarkable. No acute bony abnormality. Surgical clips are seen in the upper abdomen. IMPRESSION: 1. No evidence for acute disease. 2. Stable right dialysis catheter. Signed by: Dr. Vlad Williamson M.D. on 08/10/2019 9:14 PM Dictated By: VLAD JOHNSON MD [facility] Signed By: VLAD JOHNSON MD on 08/10/192113 Transcribed By: SCAR on 2113 COPY TO: JOSR SAENZ MD ABDOMEN-1VIEW ([facility]) 2019-08-10 13:39:00 [place] [address] Patient Name: DEO ESCUDERO MR #: [id number] : 1955 Age/Sex: 64/F Req #: [id number] Adm Physician: CELENA CHRISTENSEN MD Ordered by: EHSAN BAE DO Report #: [id number] Location: [facility] Room/Bed: [place] [address] Procedure: [id number] DX/AB CARRIE-1SANJAY (KUB) Exam Date: 08/10/19 Exam Time: 120 0 REPORT STATUS: Signed Exam: KU B - 2 views Indication: PEG tube placement Comparison: None Findi ngs: Portable abdominal radiograph following contrast injection through the percutaneous gastrostomy tube demonstrates opacification of the stomach and p roximal duodenum, confirming intraluminal placement of the gastrostomy tube. N o extraluminal contrast visualized. Nonobstructive bowel gas pattern. No free air. Mild degenerative changes of the visualized spine. Tunneled hemodialysis catheter partially visualized. Impression: Contrast injection through gas trostomy tube demonstrates intraluminal position without extraluminal contrast opacification. Signed by: Johnathan Headley MD on 08/10/2019 1:41 PM Dicta ester By: JOHNATHAN HEADLEY MD 1341 Transcribed By: SCAR on 08/10/19 1341 COPY TO: EHSAN BAE DO LVTICF0005-77-75 12:08:00* Test Item Value Reference Range Interpretation Comments GLUBED (test code = GLUBED) 137 mg/dL 74-106 H Performed by certified rotary rig engine operator at [facility] DBVFOO3237-88-70 05:52:00* Test Item Value Reference Range Interpretation Comments GLUBED (test code = GLUBED) 107 mg/dL 74-106 H Performed by certified rotary rig engine operator at [facility] URINALYSIS [id number] 02:18:00* Test Item Value Reference Range Interpretation Comments UA COLOR (test code = COLU) YELLOW YELLOW UA APPEARANCE (test code = APPU) CLEAR CLEAR UA GLUCOSE DIPSTICK (test code = DGLUU) 500 (3+) mg/dL NEGATIVE A UA BILIRUBIN DIPSTICK (test code = BILU) NEGATIVE mg/dL NEGATIVE UA KETONE DIPSTICK (test code = KETU) NEGATIVE mg/dL NEGATIVE UA SPECIFIC GRAVITY (test code = SGU) 1.016 1.001-1.035 UA BLOOD DIPSTICK (test code = ANETTE) Negative mg/dL NEGATIVE UA PH DIPSTICK (test code = PEGGY) 8.5 5.0-8.0 UA PROTEIN DIPSTICK (test code = PROU) >600 (4+) mg/dL NEGATIVE A UA UROBILINIOGEN DIPSTICK (test code = URO) Normal mg/dL NEGATIVE UA NITRITE DIPSTICK (test code = HO) NEGATIVE NEGATIVE UA LEUKOCYTE ESTERASE W REFLEX (test code = LEUUR) NEGATIVE Iesha/uL NEGATIVE UA WBC (test code = WBCU) 0-5 per HPF 0-5 UA RBC (test code = RBCU) 0-2 #/HPF 0-5 UA EPITHELIAL CELLS (test code = EPIU) None seen per HPF FEW UA BACTERIA (test code = BACU) FEW #/HPF NONE A UA MUCUS (test code = MUCU) FEW #/LPF FEW SPECIMEN COMMENTS: may straight cathUrine Source? BladderURINALYSIS COMPLETE 2019-07-30 02:18:00* Test Item Value Reference Range Interpretation Comments UA COLOR (test code = COLU) YELLOW YELLOW UA APPEARANCE (test code = APPU) CLEAR CLEAR UA GLUCOSE DIPSTICK (test code = DGLUU) 500 (3+) mg/dL NEGATIVE A UA BILIRUBIN DIPSTICK (test code = BILU) NEGATIVE mg/dL NEGATIVE UA KETONE DIPSTICK (test code = KETU) NEGATIVE mg/dL NEGATIVE UA SPECIFIC GRAVITY (test code = SGU) 1.016 1.001-1.035 UA BLOOD DIPSTICK (test code = ANETTE) Negative mg/dL NEGATIVE UA PH DIPSTICK (test code = PEGGY) 8.5 5.0-8.0 UA PROTEIN DIPSTICK (test code = PROU) >600 (4+) mg/dL NEGATIVE A UA UROBILINIOGEN DIPSTICK (test code = URO) Normal mg/dL NEGATIVE UA NITRITE DIPSTICK (test code = HO) NEGATIVE NEGATIVE UA LEUKOCYTE ESTERASE W REFLEX (test code = LEUUR) NEGATIVE Iesha/uL NEGATIVE UA WBC (test code = WBCU) 0-5 per HPF 0-5 UA RBC (test code = RBCU) 0-2 #/HPF 0-5 UA EPITHELIAL CELLS (test code = EPIU) None seen per HPF FEW UA BACTERIA (test code = BACU) FEW #/HPF NONE A UA MUCUS (test code = MUCU) FEW #/LPF FEW SPECIMEN COMMENTS: may straight cathUrine Source? [id number] 01:40:00* Test Item Value Reference Range Interpretation Comments GLUBED (test code = GLUBED) 129 mg/dL 74-106 H Performed by certified rotary rig engine operator at [facility] [id number] 17:42:00* Test Item Value Reference Range Interpretation Comments GLUBED (test code = GLUBED) 122 mg/dL 74-106 H Performed by certified rotary rig engine operator at [facility] [id number] 12:11:00* Test Item Value Reference Range Interpretation Comments GLUBED (test code = GLUBED) 111 mg/dL 74-106 H Performed by certified rotary rig engine operator at [facility] BASIC METABOLIC [id number] 12:03:00* Test Item Value Reference Range Interpretation Comments SODIUM (test code = NA) 141 mmol/L 136-145 N POTASSIUM (test code = K) 3.6 mmol/L 3.5-5.1 N CHLORIDE (test code = CL) 109.0 mmol/L 98-107 H CARBON DIOXIDE (test code = CO2) 26.0 mmol/L 21-32 N ANION GAP (test code = GAP) 9.6 10-20 L GLUCOSE (test code = GLU) 132 mg/dL 74-106 H BLOOD UREA NITROGEN (test code = BUN) 20 mg/dL 7-18 H GLOMERULAR FILTRATION RATE (test code = GFR) 13 mL/min >=60 Estimated GFR by using Modified MDRD formula.Chronic kidney disease is defined as either kidney damageor GFR <60 mL/min/1.73 m2 for >3 months. CREATININE (test code = CREAT) 3.60 mg/dL 0.55-1.02 H Note change in reference range due to change in reagent. BUN/CREATININE RATIO (test code = BUN/CREA) 5.6 10-20 L CALCIUM (test code = CA) 7.6 mg/dL 8.5-10.1 L BASIC METABOLIC [id number] 11:59:00* Test Item Value Reference Range Interpretation Comments SODIUM (test code = NA) 141 mmol/L 136-145 N POTASSIUM (test code = K) 3.6 mmol/L 3.5-5.1 N CHLORIDE (test code = CL) 109.0 mmol/L 98-107 H CARBON DIOXIDE (test code = CO2) mmol/L 21-32 ANION GAP (test code = GAP) 10-20 GLUCOSE (test code = GLU) mg/dL 74-106 BLOOD UREA NITROGEN (test code = BUN) mg/dL 7-18 GLOMERULAR FILTRATION RATE (test code = GFR) mL/min >=60 CREATININE (test code = CREAT) mg/dL 0.55-1.02 BUN/CREATININE RATIO (test code = BUN/CREA) 10-20 CALCIUM (test code = CA) mg/dL 8.5-10.1 CBC W/AUTO [id number] 11:23:00* Test Item Value Reference Range Interpretation Comments WHITE BLOOD CELL (test code = WBC) 13.3 K/mm3 4.5-12.5 H RED BLOOD CELL (test code = RBC) 3.88 mill/mm3 3.7-5.2 N HEMOGLOBIN (test code = HGB) 10.8 gram/dL 11.5-15.5 L HEMATOCRIT (test code = HCT) 34.0 % 36.0-46.0 L MEAN CELL VOLUME (test code = MCV) 87.6 fL 80-98 N MEAN CELL HGB (test code = MCH) 27.8 picogram 27.0-33.0 N MEAN CELL HGB CONCETRATION (test code = MCHC) 31.8 gram/dL 33.0-36. 0 L RED CELL DISTRIBUTION WIDTH (test code = RDW) 17.1 % 11.6-16. 2 H RED CELL DISTRIBUTION WIDTH SD (test code = RDW-SD) 53.5 fL 37 .0-51.0 H PLATELET COUNT (test code = PLT) 400 K/mm3 150-450 N MEAN PLATELET VOLUME (test code = MPV) 9.2 fL 6.7-11.0 N NEUTROPHIL % (test code = NT%) 70.3 % 39.0-69.0 H IMMATURE GRANULOCYTE % (test code = IG%) 1.7 % 0.0-5.0 N LYMPHOCYTE % (test code = LY%) 17.8 % 25.0-55.0 L MONOCYTE % (test code = MO%) 5.9 % 0.0-10.0 N EOSINOPHIL % (test code = EO%) 3.7 % 0.0-5.0 N BASOPHIL % (test code = BA%) 0.6 % 0.0-1.0 N NUCLEATED RBC % (test code = NRBC%) 0.0 % 0-0 N NEUTROPHIL # (test code = NT#) 9.33 K/mm3 1.8-7.7 H IMMATURE GRANULOCYTE # (test code = IG#) 0.22 x10 3/uL 0-0.03 H LYMPHOCYTE # (test code = LY#) 2.36 K/mm3 1.0-5.0 N MONOCYTE # (test code = MO#) 0.78 K/mm3 0-0.8 N EOSINOPHIL # (test code = EO#) 0.49 K/mm3 0.0-0.5 N BASOPHIL # (test code = BA#) 0.08 K/mm3 0.0-0.2 N NUCLEATED RBC # (test code = NRBC#) 0.00 K/mm3 0.0-0.1 N [id number] 06:00:00* Test Item Value Reference Range Interpretation Comments GLUBED (test code = GLUBED) 88 mg/dL 74-106 N Performed by certified rotary rig engine operator at [facility] [id number] 18:28:00* Test Item Value Reference Range Interpretation Comments GLUBED (test code = GLUBED) 94 mg/dL 74-106 N Performed by certified rotary rig engine operator at [facility] - CT HEAD/BRAIN W/O [id number] 14:49:00 Name: DEO ESCUDERO [facility] : 1955 Age/S: 64 / F [address] [facility] Unit #: [id number] Loc: Zane YUNG [address] Phys: Francesco Clement DO Acct: [id number] Dis Date: Status: ADM IN PHONE #: [phone] Exam Date: 07/28/2019 1400 FAX #: [phone] Reason: INCREASED DROWSINESS EXAMS: CPT CODE: [id number] CT HEAD/BRAIN W/O CONT 58823 HISTORY: INCREASED DROWSINESS TECHNIQUE: Noncontrast 2.[address] of the head. Examination acquired within 24 hours of arrival. Automated exposure control for dose reduction. COMPARISON: Noncontrast CT brain July 16, 2019 FINDINGS: No lacerations or contusions of the scalp or facial soft tissues. Calvarium and skull base are intact. No acute hemorrhage. No intracranial mass, mass effect, or midline shift. Wade-white matter interface involving the left temporal lobe is redemonstrated and consistent with acute infarction. There are also chronic infarcts in the bilateral basal ganglia and there are microva scular ischemic changes throughout the white matter which appear similar t o the previous exam. Visualized paranasal sinuses are clear. Mastoid air cells and middle ear cavities are clear. Prior lens extract ion bilaterally. IMPRESSION: No signi ficant change from prior exam. 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 Location: [facility] at 1449 Reported and sig edilberto by: Wade Adams MD PAGE 1 Signed Report (CONTINUED) Name: DEO ESCUDERO [facility] : 1955 Age/S: 64 / F [address] Unit #: [id number] Loc: Y[place] [address] Phys: Francesco Clement DO Acct: [id number] Dis Date: Status: ADM IN PHONE #: [phone] Exam Date: 07/28/2019 1400 FAX #: [phone] Reason: INCREASED DROWSINESS EXAMS: CPT CODE: [id number] CT HEAD/BRAIN W/O CONT 97386 < Continued> CC: Francesco Clement DO Technologist:Flora Mayen RT(R) CTDI: DLP: Trnscb Date/Time: 07/28/2019 (1449) [id number] Orig Print D/T: S: 07/28/2019 (7004) PAGE 2 Signed Report [id number] 12:34:00* Test Item Value Reference Range Interpretation Comments GLUBED (test code = GLUBED) 157 mg/dL 74-106 H Performed by certified rotary rig engine operator at [facility] [id number] 06:00:00* Test Item Value Reference Range Interpretation Comments GLUBED (test code = GLUBED) 107 mg/dL 74-106 H Performed by certified rotary rig engine operator at [facility] [id number] 00:14:00* Test Item Value Reference Range Interpretation Comments GLUBED (test code = GLUBED) 115 mg/dL 74-106 H Performed by certified rotary rig engine operator at [facility] [id number] 18:26:00* Test Item Value Reference Range Interpretation Comments GLUBED (test code = GLUBED) 104 mg/dL 74-106 N [facility] BASIC METABOLIC [id number] 11:56:00* Test Item Value Reference Range Interpretation Comments SODIUM (test code = NA) 139 mmol/L 136-145 N POTASSIUM (test code = K) 3.3 mmol/L 3.5-5.1 L CHLORIDE (test code = CL) 106.0 mmol/L 98-107 N CARBON DIOXIDE (test code = CO2) 25.0 mmol/L 21-32 N ANION GAP (test code = GAP) 11.3 10-20 N GLUCOSE (test code = GLU) 115 mg/dL 74-106 H BLOOD UREA NITROGEN (test code = BUN) 25 mg/dL 7-18 H GLOMERULAR FILTRATION RATE (test code = GFR) 12 mL/min >=60 Estimated GFR by using Modified MDRD formula.Chronic kidney disease is defined as either kidney damageor GFR <60 mL/min/1.73 m2 for >3 months. CREATININE (test code = CREAT) 3.70 mg/dL 0.55-1.02 H Note change in reference range due to change in reagent. BUN/CREATININE RATIO (test code = BUN/CREA) 6.8 10-20 L CALCIUM (test code = CA) 7.5 mg/dL 8.5-10.1 L BASIC METABOLIC [id number] 11:50:00* Test Item Value Reference Range Interpretation Comments SODIUM (test code = NA) 139 mmol/L 136-145 N POTASSIUM (test code = K) 3.3 mmol/L 3.5-5.1 L CHLORIDE (test code = CL) 106.0 mmol/L 98-107 N CARBON DIOXIDE (test code = CO2) mmol/L 21-32 ANION GAP (test code = GAP) 10-20 GLUCOSE (test code = GLU) mg/dL 74-106 BLOOD UREA NITROGEN (test code = BUN) mg/dL 7-18 GLOMERULAR FILTRATION RATE (test code = GFR) mL/min >=60 CREATININE (test code = CREAT) mg/dL 0.55-1.02 BUN/CREATININE RATIO (test code = BUN/CREA) 10-20 CALCIUM (test code = CA) mg/dL 8.5-10.1 CBC W/AUTO [id number] 11:33:00* Test Item Value Reference Range Interpretation Comments WHITE BLOOD CELL (test code = WBC) 16.9 K/mm3 4.5-12.5 H RED BLOOD CELL (test code = RBC) 3.62 mill/mm3 3.7-5.2 L HEMOGLOBIN (test code = HGB) 9.9 gram/dL 11.5-15.5 L HEMATOCRIT (test code = HCT) 31.5 % 36.0-46.0 L MEAN CELL VOLUME (test code = MCV) 87.0 fL 80-98 N MEAN CELL HGB (test code = MCH) 27.3 picogram 27.0-33.0 N MEAN CELL HGB CONCETRATION (test code = MCHC) 31.4 gram/dL 33.0-36. 0 L RED CELL DISTRIBUTION WIDTH (test code = RDW) 16.6 % 11.6-16. 2 H RED CELL DISTRIBUTION WIDTH SD (test code = RDW-SD) 50.0 fL 37 .0-51.0 N PLATELET COUNT (test code = PLT) 373 K/mm3 150-450 N MEAN PLATELET VOLUME (test code = MPV) 9.3 fL 6.7-11.0 N NEUTROPHIL % (test code = NT%) 71.3 % 39.0-69.0 H IMMATURE GRANULOCYTE % (test code = IG%) 3.1 % 0.0-5.0 N LYMPHOCYTE % (test code = LY%) 16.5 % 25.0-55.0 L MONOCYTE % (test code = MO%) 5.3 % 0.0-10.0 N EOSINOPHIL % (test code = EO%) 3.2 % 0.0-5.0 N BASOPHIL % (test code = BA%) 0.6 % 0.0-1.0 N NUCLEATED RBC % (test code = NRBC%) 0.0 % 0-0 N NEUTROPHIL # (test code = NT#) 12.07 K/mm3 1.8-7.7 H IMMATURE GRANULOCYTE # (test code = IG#) 0.53 x10 3/uL 0-0.03 H LYMPHOCYTE # (test code = LY#) 2.79 K/mm3 1.0-5.0 N MONOCYTE # (test code = MO#) 0.89 K/mm3 0-0.8 H EOSINOPHIL # (test code = EO#) 0.54 K/mm3 0.0-0.5 H BASOPHIL # (test code = BA#) 0.11 K/mm3 0.0-0.2 N NUCLEATED RBC # (test code = NRBC#) 0.00 K/mm3 0.0-0.1 N [id number] 06:56:00* Test Item Value Reference Range Interpretation Comments GLUBED (test code = GLUBED) 90 mg/dL 74-106 N Performed by certified rotary rig engine operator at [facility] [id number] 00:33:00* Test Item Value Reference Range Interpretation Comments GLUBED (test code = GLUBED) 152 mg/dL 74-106 H Performed by certified rotary rig engine operator at [facility] [id number] 20:28:00* Test Item Value Reference Range Interpretation Comments GLUBED (test code = GLUBED) 183 mg/dL 74-106 H Performed by certified rotary rig engine operator at [facility] [id number] 16:57:00* Test Item Value Reference Range Interpretation Comments GLUBED (test code = GLUBED) 169 mg/dL 74-106 H Performed by certified rotary rig engine operator at [facility] [id number] 11:42:00* Test Item Value Reference Range Interpretation Comments GLUBED (test code = GLUBED) 128 mg/dL 74-106 H Performed by certified rotary rig engine operator at [facility] [id number] 07:36:00* Test Item Value Reference Range Interpretation Comments GLUBED (test code = GLUBED) 108 mg/dL 74-106 H Performed by certified rotary rig engine operator at [facility] [id number] 06:27:00* Test Item Value Reference Range Interpretation Comments GLUBED (test code = GLUBED) 102 mg/dL 74-106 N Performed by certified rotary rig engine operator at [facility] [id number] 00:16:00* Test Item Value Reference Range Interpretation Comments GLUBED (test code = GLUBED) 138 mg/dL 74-106 H Performed by certified rotary rig engine operator at [facility] [id number] 20:28:00* Test Item Value Reference Range Interpretation Comments GLUBED (test code = GLUBED) 134 mg/dL 74-106 H Performed by certified rotary rig engine operator at [facility] [id number] 17:32:00* Test Item Value Reference Range Interpretation Comments GLUBED (test code = GLUBED) 107 mg/dL 74-106 H Performed by certified rotary rig engine operator at [facility] [id number] 11:36:00* Test Item Value Reference Range Interpretation Comments GLUBED (test code = GLUBED) 136 mg/dL 74-106 H Performed by certified rotary rig engine operator at [facility] [id number] 05:28:00* Test Item Value Reference Range Interpretation Comments GLUBED (test code = GLUBED) 121 mg/dL 74-106 H Performed by certified rotary rig engine operator at [facility] [id number] 20:08:00* Test Item Value Reference Range Interpretation Comments GLUBED (test code = GLUBED) 169 mg/dL 74-106 H Performed by certified rotary rig engine operator at [facility] [id number] 17:43:00* Test Item Value Reference Range Interpretation Comments GLUBED (test code = GLUBED) 142 mg/dL 74-106 H Performed by certified rotary rig engine operator at [facility] [id number] 14:04:00* Test Item Value Reference Range Interpretation Comments GLUBED (test code = GLUBED) 137 mg/dL 74-106 H Performed by certified rotary rig engine operator at [facility] [id number] 11:03:00* Test Item Value Reference Range Interpretation Comments GLUBED (test code = GLUBED) 141 mg/dL 74-106 H Performed by certified rotary rig engine operator at [facility] [id number] 08:42:00* Test Item Value Reference Range Interpretation Comments GLUBED (test code = GLUBED) 119 mg/dL 74-106 H Performed by certified rotary rig engine operator at [facility] BASIC METABOLIC [id number] 08:40:00* Test Item Value Reference Range Interpretation Comments SODIUM (test code = NA) 140 mmol/L 136-145 N POTASSIUM (test code = K) 3.6 mmol/L 3.5-5.1 N CHLORIDE (test code = CL) 106.0 mmol/L 98-107 N CARBON DIOXIDE (test code = CO2) 28.0 mmol/L 21-32 N ANION GAP (test code = GAP) 9.6 10-20 L GLUCOSE (test code = GLU) 121 mg/dL 74-106 H BLOOD UREA NITROGEN (test code = BUN) 19 mg/dL 7-18 H GLOMERULAR FILTRATION RATE (test code = GFR) 15 mL/min >=60 Estimated GFR by using Modified MDRD formula.Chronic kidney disease is defined as either kidney damageor GFR <60 mL/min/1.73 m2 for >3 months. CREATININE (test code = CREAT) 3.10 mg/dL 0.55-1.02 H Note change in reference range due to change in reagent. BUN/CREATININE RATIO (test code = BUN/CREA) 6.1 10-20 L CALCIUM (test code = CA) 7.2 mg/dL 8.5-10.1 L BASIC METABOLIC [id number] 08:35:00* Test Item Value Reference Range Interpretation Comments SODIUM (test code = NA) 140 mmol/L 136-145 N POTASSIUM (test code = K) 3.6 mmol/L 3.5-5.1 N CHLORIDE (test code = CL) 106.0 mmol/L 98-107 N CARBON DIOXIDE (test code = CO2) mmol/L 21-32 ANION GAP (test code = GAP) 10-20 GLUCOSE (test code = GLU) mg/dL 74-106 BLOOD UREA NITROGEN (test code = BUN) mg/dL 7-18 GLOMERULAR FILTRATION RATE (test code = GFR) mL/min >=60 CREATININE (test code = CREAT) mg/dL 0.55-1.02 BUN/CREATININE RATIO (test code = BUN/CREA) 10-20 CALCIUM (test code = CA) mg/dL 8.5-10.1 CBC W/AUTO [id number] 07:56:00* Test Item Value Reference Range Interpretation Comments WHITE BLOOD CELL (test code = WBC) 12.0 K/mm3 4.5-12.5 N RED BLOOD CELL (test code = RBC) 3.43 mill/mm3 3.7-5.2 L HEMOGLOBIN (test code = HGB) 9.3 gram/dL 11.5-15.5 L HEMATOCRIT (test code = HCT) 29.5 % 36.0-46.0 L MEAN CELL VOLUME (test code = MCV) 86.0 fL 80-98 N MEAN CELL HGB (test code = MCH) 27.1 picogram 27.0-33.0 N MEAN CELL HGB CONCETRATION (test code = MCHC) 31.5 gram/dL 33.0-36. 0 L RED CELL DISTRIBUTION WIDTH (test code = RDW) 15.6 % 11.6-16. 2 N RED CELL DISTRIBUTION WIDTH SD (test code = RDW-SD) 48.1 fL 37 .0-51.0 N PLATELET COUNT (test code = PLT) 370 K/mm3 150-450 N MEAN PLATELET VOLUME (test code = MPV) 9.7 fL 6.7-11.0 N NEUTROPHIL % (test code = NT%) 63.6 % 39.0-69.0 N IMMATURE GRANULOCYTE % (test code = IG%) 4.6 % 0.0-5.0 N LYMPHOCYTE % (test code = LY%) 18.9 % 25.0-55.0 L MONOCYTE % (test code = MO%) 8.2 % 0.0-10.0 N EOSINOPHIL % (test code = EO%) 3.8 % 0.0-5.0 N BASOPHIL % (test code = BA%) 0.9 % 0.0-1.0 N NUCLEATED RBC % (test code = NRBC%) 0.0 % 0-0 N NEUTROPHIL # (test code = NT#) 7.61 K/mm3 1.8-7.7 N IMMATURE GRANULOCYTE # (test code = IG#) 0.55 x10 3/uL 0-0.03 H LYMPHOCYTE # (test code = LY#) 2.27 K/mm3 1.0-5.0 N MONOCYTE # (test code = MO#) 0.98 K/mm3 0-0.8 H EOSINOPHIL # (test code = EO#) 0.46 K/mm3 0.0-0.5 N BASOPHIL # (test code = BA#) 0.11 K/mm3 0.0-0.2 N NUCLEATED RBC # (test code = NRBC#) 0.00 K/mm3 0.0-0.1 N MANUAL DIFF REQUIRED (test code = MDIFF) NO [id number] 06:13:00* Test Item Value Reference Range Interpretation Comments GLUBED (test code = GLUBED) 123 mg/dL 74-106 H Performed by certified rotary rig engine operator at [facility] [id number] 20:48:00* Test Item Value Reference Range Interpretation Comments GLUBED (test code = GLUBED) 147 mg/dL 74-106 H Performed by certified rotary rig engine operator at [facility] [id number] 19:37:00* Test Item Value Reference Range Interpretation Comments GLUBED (test code = GLUBED) 143 mg/dL 74-106 H Performed by certified rotary rig engine operator at [facility] [id number] 11:49:00* Test Item Value Reference Range Interpretation Comments GLUBED (test code = GLUBED) 116 mg/dL 74-106 H Performed by certified rotary rig engine operator at [facility] [id number] 08:42:00* Test Item Value Reference Range Interpretation Comments GLUBED (test code = GLUBED) 118 mg/dL 74-106 H Performed by certified rotary rig engine operator at [facility] [id number] 06:32:00* Test Item Value Reference Range Interpretation Comments GLUBED (test code = GLUBED) 90 mg/dL 74-106 N Performed by certified rotary rig engine operator at [facility] [id number] 21:10:00* Test Item Value Reference Range Interpretation Comments GLUBED (test code = GLUBED) 129 mg/dL 74-106 H Performed by certified rotary rig engine operator at [facility] BASIC METABOLIC [id number] 18:15:00* Test Item Value Reference Range Interpretation Comments SODIUM (test code = NA) 134 mmol/L 136-145 L POTASSIUM (test code = K) 3.0 mmol/L 3.5-5.1 L CHLORIDE (test code = CL) 97.0 mmol/L 98-107 L CARBON DIOXIDE (test code = CO2) 29.0 mmol/L 21-32 N ANION GAP (test code = GAP) 11.0 10-20 N GLUCOSE (test code = GLU) 166 mg/dL 74-106 H BLOOD UREA NITROGEN (test code = BUN) 25 mg/dL 7-18 H GLOMERULAR FILTRATION RATE (test code = GFR) 13 mL/min >=60 Estimated GFR by using Modified MDRD formula.Chronic kidney disease is defined as either kidney damageor GFR <60 mL/min/1.73 m2 for >3 months. CREATININE (test code = CREAT) 3.50 mg/dL 0.55-1.02 H Note change in reference range due to change in reagent. BUN/CREATININE RATIO (test code = BUN/CREA) 7.1 10-20 L CALCIUM (test code = CA) 7.0 mg/dL 8.5-10.1 L BASIC METABOLIC [id number] 18:10:00* Test Item Value Reference Range Interpretation Comments SODIUM (test code = NA) 134 mmol/L 136-145 L POTASSIUM (test code = K) 3.0 mmol/L 3.5-5.1 L CHLORIDE (test code = CL) 97.0 mmol/L 98-107 L CARBON DIOXIDE (test code = CO2) mmol/L 21-32 ANION GAP (test code = GAP) 10-20 GLUCOSE (test code = GLU) mg/dL 74-106 BLOOD UREA NITROGEN (test code = BUN) mg/dL 7-18 GLOMERULAR FILTRATION RATE (test code = GFR) mL/min >=60 CREATININE (test code = CREAT) mg/dL 0.55-1.02 BUN/CREATININE RATIO (test code = BUN/CREA) 10-20 CALCIUM (test code = CA) mg/dL 8.5-10.1 [id number] 16:51:00* Test Item Value Reference Range Interpretation Comments GLUBED (test code = GLUBED) 159 mg/dL 74-106 H Performed by certified rotary rig engine operator at [facility] CBC W/MANUAL [id number] 13:35:00* Test Item Value Reference Range Interpretation Comments WHITE BLOOD CELL (test code = WBC) 15.7 K/mm3 4.5-12.5 H RED BLOOD CELL (test code = RBC) 3.85 mill/mm3 3.7-5.2 N HEMOGLOBIN (test code = HGB) 10.5 gram/dL 11.5-15.5 L HEMATOCRIT (test code = HCT) 32.7 % 36.0-46.0 L MEAN CELL VOLUME (test code = MCV) 84.9 fL 80-98 N MEAN CELL HGB (test code = MCH) 27.3 picogram 27.0-33.0 N MEAN CELL HGB CONCETRATION (test code = MCHC) 32.1 gram/dL 33.0-36. 0 L RED CELL DISTRIBUTION WIDTH (test code = RDW) 15.0 % 11.6-16. 2 N RED CELL DISTRIBUTION WIDTH SD (test code = RDW-SD) 45.3 fL 37 .0-51.0 N PLATELET COUNT (test code = PLT) 377 K/mm3 150-450 N MEAN PLATELET VOLUME (test code = MPV) 10.3 fL 6.7-11.0 N NEUTROPHIL % (test code = NT%) 75.4 % 39.0-69.0 H IMMATURE GRANULOCYTE % (test code = IG%) 2.7 % 0.0-5.0 N LYMPHOCYTE % (test code = LY%) 10.5 % 25.0-55.0 L MONOCYTE % (test code = MO%) 8.9 % 0.0-10.0 N EOSINOPHIL % (test code = EO%) 1.8 % 0.0-5.0 N BASOPHIL % (test code = BA%) 0.7 % 0.0-1.0 N NUCLEATED RBC % (test code = NRBC%) 0.0 % 0-0 N NEUTROPHIL # (test code = NT#) 11.84 K/mm3 1.8-7.7 H IMMATURE GRANULOCYTE # (test code = IG#) 0.43 x10 3/uL 0-0.03 H LYMPHOCYTE # (test code = LY#) 1.65 K/mm3 1.0-5.0 N MONOCYTE # (test code = MO#) 1.40 K/mm3 0-0.8 H EOSINOPHIL # (test code = EO#) 0.28 K/mm3 0.0-0.5 N BASOPHIL # (test code = BA#) 0.11 K/mm3 0.0-0.2 N NUCLEATED RBC # (test code = NRBC#) 0.00 K/mm3 0.0-0.1 N MANUAL DIFF REQUIRED (test code = MDIFF) NO STAIN ACCEPTABILITY (test code = STN ACCEPTABLE) STAIN ACCEPTABLE TOTAL CELLS COUNTED (test code = TCC) 115 #CELLS SEGMENTED NEUTROPHILS (test code = SEG) 87.0 % 39-69 H BAND NEUTROPHIL (test code = BAND) 0 % 0-10 N LYMPHOCYTE (test code = LYMPH) 6.1 % 25-55 L REACTIVE LYMPH (test code = RELYMPH) 0 % MONOCYTE (test code = MON) 3.5 % 0-10 N EOSINOPHIL (test code = EOS) 1.7 % 0.0-5.0 N BASOPHIL (test code = BASO) 1.7 % 0-1.0 H METAMYELOCYTE (test code = META) 0 % 0-0 N MYELOCYTE (test code = MYELO) 0 % 0.0-0.0 N PROMYELOCYTE (test code = PROM) 0 % 0-0 N ANISOCYTOSIS (test code = ANISO) 1+ MICROCYTOSIS (test code = MICR) 1+ CRENATED CELLS (test code = CREN) 1+ PLATELET ESTIMATE (test code = PLTEST) ADEQUATE PLATELET MORPHOLOGY (test code = PLTMORPH) SIZE VARIABLE IMMATURE FORMS (test code = IMMAT) 0 % 0-0 N [id number] 11:58:00* Test Item Value Reference Range Interpretation Comments GLUBED (test code = GLUBED) 129 mg/dL 74-106 H Performed by certified rotary rig engine operator at [facility] CBC W/MANUAL [id number] 11:34:00* Test Item Value Reference Range Interpretation Comments WHITE BLOOD CELL (test code = WBC) 15.7 K/mm3 4.5-12.5 H RED BLOOD CELL (test code = RBC) 3.85 mill/mm3 3.7-5.2 N HEMOGLOBIN (test code = HGB) 10.5 gram/dL 11.5-15.5 L HEMATOCRIT (test code = HCT) 32.7 % 36.0-46.0 L MEAN CELL VOLUME (test code = MCV) 84.9 fL 80-98 N MEAN CELL HGB (test code = MCH) 27.3 picogram 27.0-33.0 N MEAN CELL HGB CONCETRATION (test code = MCHC) 32.1 gram/dL 33.0-36. 0 L RED CELL DISTRIBUTION WIDTH (test code = RDW) 15.0 % 11.6-16. 2 N RED CELL DISTRIBUTION WIDTH SD (test code = RDW-SD) 45.3 fL 37 .0-51.0 N PLATELET COUNT (test code = PLT) 377 K/mm3 150-450 N MEAN PLATELET VOLUME (test code = MPV) 10.3 fL 6.7-11.0 N NEUTROPHIL % (test code = NT%) 75.4 % 39.0-69.0 H IMMATURE GRANULOCYTE % (test code = IG%) 2.7 % 0.0-5.0 N LYMPHOCYTE % (test code = LY%) 10.5 % 25.0-55.0 L MONOCYTE % (test code = MO%) 8.9 % 0.0-10.0 N EOSINOPHIL % (test code = EO%) 1.8 % 0.0-5.0 N BASOPHIL % (test code = BA%) 0.7 % 0.0-1.0 N NUCLEATED RBC % (test code = NRBC%) 0.0 % 0-0 N NEUTROPHIL # (test code = NT#) 11.84 K/mm3 1.8-7.7 H IMMATURE GRANULOCYTE # (test code = IG#) 0.43 x10 3/uL 0-0.03 H LYMPHOCYTE # (test code = LY#) 1.65 K/mm3 1.0-5.0 N MONOCYTE # (test code = MO#) 1.40 K/mm3 0-0.8 H EOSINOPHIL # (test code = EO#) 0.28 K/mm3 0.0-0.5 N BASOPHIL # (test code = BA#) 0.11 K/mm3 0.0-0.2 N NUCLEATED RBC # (test code = NRBC#) 0.00 K/mm3 0.0-0.1 N MANUAL DIFF REQUIRED (test code = MDIFF) NO STAIN ACCEPTABILITY (test code = STN ACCEPTABLE) TOTAL CELLS COUNTED (test code = TCC) #CELLS SEGMENTED NEUTROPHILS (test code = SEG) % 39-69 LYMPHOCYTE (test code = LYMPH) % 25-55 MONOCYTE (test code = MON) % 0-10 MORPHOLOGY COMMENT (test code = MOC) PLATELET ESTIMATE (test code = PLTEST) PLATELET MORPHOLOGY (test code = PLTMORPH) - XR CHEST 1 [id number] 11:09:00 FAX: Francesco Champagne [facility] [place]: B St: ADM FAX: Kiley Jones NP [phone] Name: DEO ESCUDERO [facility] : 1955 Age/S: 64/F Bernardo Yang Unit #: [id number] Loc: [id number].3093 Z[place], [place] [address] Phys: Kiley Jones 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 Additionally there are prominent interstitial markings. However no airspace disease is seen. Cardiomediastinal silhouette is widened. Right IJ vascular catheter terminates in the right atrium. There are degenerative changes in the thoracic spine. Prior cholecystectomy. IMPRESSION: Prominent i nterstitial markings may represent interstitial edema. Given the presenc e of cardiomegaly this may represent CHF. Location: [facility] at 1109 Reported and signed by: Wade Adams MD CC: Francesco Clement ek Griffiths DO; Kiley Jones NP Technologist: FEMI ERIC Trnscrd Date/Time/By: 07/22/2019 (110) : By: John CarmichaelRR31 Orig Print D/T: S: 07/22/2019 ([id number]) PAG E 1 Signed Report GLUBED 2019-07-22 08:05:00* Test Item Value Reference Range Interpretation Comments GLUBED (test code = GLUBED) 92 mg/dL 74-106 N Performed by certified rotary rig engine operator at [facility] [id number] 05:56:00* Test Item Value Reference Range Interpretation Comments GLUBED (test code = GLUBED) 99 mg/dL 74-106 N Performed by certified rotary rig engine operator at [facility] [id number] 02:26:00* Test Item Value Reference Range Interpretation Comments GLUBED (test code = GLUBED) 115 mg/dL 74-106 H Performed by certified rotary rig engine operator at [facility] URINALYSIS [id number] 16:37:00* Test Item Value Reference Range Interpretation Comments UA COLOR (test code = COLU) Light-Yellow YELLOW UA APPEARANCE (test code = APPU) CLEAR CLEAR UA GLUCOSE DIPSTICK (test code = DGLUU) 300 (2+) mg/dL NEGATIVE A UA BILIRUBIN DIPSTICK (test code = BILU) NEGATIVE mg/dL NEGATIVE UA KETONE DIPSTICK (test code = KETU) NEGATIVE mg/dL NEGATIVE UA SPECIFIC GRAVITY (test code = SGU) 1.010 1.001-1.035 UA BLOOD DIPSTICK (test code = ANETTE) 0.03 mg/dL (Trace) mg/dL NEGATI VE A UA PH DIPSTICK (test code = PEGGY) 8.0 5.0-8.0 UA PROTEIN DIPSTICK (test code = PROU) 600 (3+) mg/dL NEGATIVE A UA UROBILINIOGEN DIPSTICK (test code = URO) Normal mg/dL NEGATIVE UA NITRITE DIPSTICK (test code = HO) NEGATIVE NEGATIVE UA LEUKOCYTE ESTERASE W REFLEX (test code = LEUUR) 75 Iesha/uL (1+) Iesha/uL NEGATIVE A UA WBC (test code = WBCU) 21-50 per HPF 0-5 A UA RBC (test code = RBCU) 0-2 #/HPF 0-5 UA EPITHELIAL CELLS (test code = EPIU) Few (2-5/hpf) per HPF FEW UA BACTERIA (test code = BACU) MODERATE #/HPF NONE A Urine Source? [id number] 16:18:00* Test Item Value Reference Range Interpretation Comments GLUBED (test code = GLUBED) 140 mg/dL 74-106 H Performed by certified rotary rig engine operator at [facility] PROCALCITONIN (PCT)2019-07-21 14:25:00* Test Item Value Reference Range Interpretation Comments PROCALCITONIN (PCT) (test code = PROCAL) 0.50 ng/ml Concentration Interpretation (ng/mL) <0.51 Sepsis is not likely. Local bacterial infection is possible. (LOW RISK for progression to Sepsis) 0.51 - 2.00 Sepsis is possible, but other conditions are known to elevate PCT as well. (MODERATE RISK for progression to Sepsis) > 2.00 Sepsis is likely, unless other causes are known. (HIGH RISK for progression to Severe Sepsis or Septic Shock) 10.00 High likelihood of Severe Sepsis or Septic or higher Shock. *Increased PCT levels may not always be related to systemic bacterial infection.*Low PCT levels do not automatically exclude the presence of bacterial infection.*All results should be interpreted taking into account the patients history. LACTIC [id number] 13:49:00* Test Item Value Reference Range Interpretation Comments LACTIC ACID (test code = LACT) 0.7 mmol/L 0.4-1.9 N [id number] 11:47:00* Test Item Value Reference Range Interpretation Comments GLUBED (test code = GLUBED) 188 mg/dL 74-106 H Performed by certified rotary rig engine operator at [facility] [id number] 08:00:00* Test Item Value Reference Range Interpretation Comments GLUBED (test code = GLUBED) 131 mg/dL 74-106 H Performed by certified rotary rig engine operator at [facility] BASIC METABOLIC [id number] 07:22:00* Test Item Value Reference Range Interpretation Comments SODIUM (test code = NA) 141 mmol/L 136-145 N POTASSIUM (test code = K) 3.0 mmol/L 3.5-5.1 L CHLORIDE (test code = CL) 104.0 mmol/L 98-107 N CARBON DIOXIDE (test code = CO2) 30.0 mmol/L 21-32 N ANION GAP (test code = GAP) 10.0 10-20 N GLUCOSE (test code = GLU) 127 mg/dL 74-106 H BLOOD UREA NITROGEN (test code = BUN) 13 mg/dL 7-18 N GLOMERULAR FILTRATION RATE (test code = GFR) 20 mL/min >=60 Estimated GFR by using Modified MDRD formula.Chronic kidney disease is defined as either kidney damageor GFR <60 mL/min/1.73 m2 for >3 months. CREATININE (test code = CREAT) 2.40 mg/dL 0.55-1.02 H Note change in reference range due to change in reagent. BUN/CREATININE RATIO (test code = BUN/CREA) 5.4 10-20 L CALCIUM (test code = CA) 7.6 mg/dL 8.5-10.1 L [id number] 07:22:00* Test Item Value Reference Range Interpretation Comments MAGNESIUM (test code = MAG) 1.5 mg/dL 1.8-2.4 L BASIC METABOLIC [id number] 07:20:00* Test Item Value Reference Range Interpretation Comments SODIUM (test code = NA) 141 mmol/L 136-145 N POTASSIUM (test code = K) 3.0 mmol/L 3.5-5.1 L CHLORIDE (test code = CL) 104.0 mmol/L 98-107 N CARBON DIOXIDE (test code = CO2) mmol/L 21-32 ANION GAP (test code = GAP) 10-20 GLUCOSE (test code = GLU) mg/dL 74-106 BLOOD UREA NITROGEN (test code = BUN) mg/dL 7-18 GLOMERULAR FILTRATION RATE (test code = GFR) mL/min >=60 CREATININE (test code = CREAT) mg/dL 0.55-1.02 BUN/CREATININE RATIO (test code = BUN/CREA) 10-20 CALCIUM (test code = CA) mg/dL 8.5-10.1 [id number] 07:20:00* Test Item Value Reference Range Interpretation Comments MAGNESIUM (test code = MAG) mg/dL 1.8-2.4 CBC W/AUTO [id number] 07:03:00* Test Item Value Reference Range Interpretation Comments WHITE BLOOD CELL (test code = WBC) 17.6 K/mm3 4.5-12.5 H RED BLOOD CELL (test code = RBC) 3.74 mill/mm3 3.7-5.2 N HEMOGLOBIN (test code = HGB) 10.2 gram/dL 11.5-15.5 L HEMATOCRIT (test code = HCT) 31.8 % 36.0-46.0 L MEAN CELL VOLUME (test code = MCV) 85.0 fL 80-98 N MEAN CELL HGB (test code = MCH) 27.3 picogram 27.0-33.0 N MEAN CELL HGB CONCETRATION (test code = MCHC) 32.1 gram/dL 33.0-36. 0 L RED CELL DISTRIBUTION WIDTH (test code = RDW) 14.9 % 11.6-16. 2 N RED CELL DISTRIBUTION WIDTH SD (test code = RDW-SD) 45.5 fL 37 .0-51.0 N PLATELET COUNT (test code = PLT) 373 K/mm3 150-450 N MEAN PLATELET VOLUME (test code = MPV) 10.3 fL 6.7-11.0 N NEUTROPHIL % (test code = NT%) 76.2 % 39.0-69.0 H IMMATURE GRANULOCYTE % (test code = IG%) 1.2 % 0.0-5.0 N LYMPHOCYTE % (test code = LY%) 11.6 % 25.0-55.0 L MONOCYTE % (test code = MO%) 8.6 % 0.0-10.0 N EOSINOPHIL % (test code = EO%) 1.9 % 0.0-5.0 N BASOPHIL % (test code = BA%) 0.5 % 0.0-1.0 N NUCLEATED RBC % (test code = NRBC%) 0.0 % 0-0 N NEUTROPHIL # (test code = NT#) 13.46 K/mm3 1.8-7.7 H IMMATURE GRANULOCYTE # (test code = IG#) 0.21 x10 3/uL 0-0.03 H LYMPHOCYTE # (test code = LY#) 2.04 K/mm3 1.0-5.0 N MONOCYTE # (test code = MO#) 1.51 K/mm3 0-0.8 H EOSINOPHIL # (test code = EO#) 0.33 K/mm3 0.0-0.5 N BASOPHIL # (test code = BA#) 0.09 K/mm3 0.0-0.2 N NUCLEATED RBC # (test code = NRBC#) 0.00 K/mm3 0.0-0.1 N [id number] 05:55:00* Test Item Value Reference Range Interpretation Comments GLUBED (test code = GLUBED) 120 mg/dL 74-106 H Performed by certified rotary rig engine operator at [facility] [id number] 00:30:00* Test Item Value Reference Range Interpretation Comments GLUBED (test code = GLUBED) 133 mg/dL 74-106 H Performed by certified rotary rig engine operator at [facility] [id number] 20:54:00* Test Item Value Reference Range Interpretation Comments GLUBED (test code = GLUBED) 158 mg/dL 74-106 H Performed by certified rotary rig engine operator at [facility] [id number] 18:09:00* Test Item Value Reference Range Interpretation Comments GLUBED (test code = GLUBED) 200 mg/dL 74-106 H Performed by certified rotary rig engine operator at [facility] PARATHYROID HORMONE [id number] 17:06:00* Test Item Value Reference Range Interpretation Comments PARATHYROID HORMONE INTACT (test code = PARAI) 96.30 pgram/mL 8.4-8 8 H VITAMIN [id number] 15:09:00* Test Item Value Reference Range Interpretation Comments VITAMIN B12 (test code = VITB12) 1507 pg/mL 193-986 H THYROID PROFILE [id number] 15:09:00* Test Item Value Reference Range Interpretation Comments T3 UPTAKE (test code = T3UP) 36.0 % 30.0-40.0 N T4 (THYROXINE) (test code = T4) 8.0 ug/dL 4.5-13.9 N T7 (FREE THYROXINE INDEX) (test code = T7) 2.88 FTI 1.3-5.1 N THYROID STIMULATING HORMONE (test code = TSH) 8.430 uIU/mL 0.36-3.7 4 H TSH REFERENCE RANGES: EUTHYROID: 0.35 - 4.3 mIU/mL HYPO : > 5.5 mIU/mL HYPER : < 0.35 mIU/mL VITAMIN D 1,03-[id number] 15:09:00* Test Item Value Reference Range Interpretation Comments VITAMIN D 1,25-DIHYDROXY (test code = AEUF582) 9.3 pg/mL 19.9-79 .3 A Performed At: [facility] [id number] Sanjai MD Ph:[phone] performed at: [facility] [address] [place] [address] BASIC METABOLIC [id number] 12:14:00* Test Item Value Reference Range Interpretation Comments SODIUM (test code = NA) 141 mmol/L 136-145 N POTASSIUM (test code = K) 3.0 mmol/L 3.5-5.1 L CHLORIDE (test code = CL) 104.0 mmol/L 98-107 N CARBON DIOXIDE (test code = CO2) 30.0 mmol/L 21-32 N ANION GAP (test code = GAP) 9.0 10-20 L GLUCOSE (test code = GLU) 154 mg/dL 74-106 H BLOOD UREA NITROGEN (test code = BUN) 21 mg/dL 7-18 H GLOMERULAR FILTRATION RATE (test code = GFR) 13 mL/min >=60 Estimated GFR by using Modified MDRD formula.Chronic kidney disease is defined as either kidney damageor GFR <60 mL/min/1.73 m2 for >3 months. CREATININE (test code = CREAT) 3.50 mg/dL 0.55-1.02 H Note change in reference range due to change in reagent. BUN/CREATININE RATIO (test code = BUN/CREA) 6.0 10-20 L CALCIUM (test code = CA) 7.3 mg/dL 8.5-10.1 L BASIC METABOLIC [id number] 12:05:00* Test Item Value Reference Range Interpretation Comments SODIUM (test code = NA) 141 mmol/L 136-145 N POTASSIUM (test code = K) 3.0 mmol/L 3.5-5.1 L CHLORIDE (test code = CL) mmol/L 98-107 CARBON DIOXIDE (test code = CO2) mmol/L 21-32 ANION GAP (test code = GAP) 10-20 GLUCOSE (test code = GLU) mg/dL 74-106 BLOOD UREA NITROGEN (test code = BUN) mg/dL 7-18 GLOMERULAR FILTRATION RATE (test code = GFR) mL/min >=60 CREATININE (test code = CREAT) mg/dL 0.55-1.02 BUN/CREATININE RATIO (test code = BUN/CREA) 10-20 CALCIUM (test code = CA) mg/dL 8.5-10.1 [id number] 11:40:00* Test Item Value Reference Range Interpretation Comments GLUBED (test code = GLUBED) 187 mg/dL 74-106 H Performed by certified rotary rig engine operator at [facility] CBC W/AUTO [id number] 10:58:00* Test Item Value Reference Range Interpretation Comments WHITE BLOOD CELL (test code = WBC) 14.8 K/mm3 4.5-12.5 H RED BLOOD CELL (test code = RBC) 3.97 mill/mm3 3.7-5.2 N HEMOGLOBIN (test code = HGB) 10.6 gram/dL 11.5-15.5 L HEMATOCRIT (test code = HCT) 33.7 % 36.0-46.0 L MEAN CELL VOLUME (test code = MCV) 84.9 fL 80-98 N MEAN CELL HGB (test code = MCH) 26.7 picogram 27.0-33.0 L MEAN CELL HGB CONCETRATION (test code = MCHC) 31.5 gram/dL 33.0-36. 0 L RED CELL DISTRIBUTION WIDTH (test code = RDW) 14.7 % 11.6-16. 2 N RED CELL DISTRIBUTION WIDTH SD (test code = RDW-SD) 45.1 fL 37 .0-51.0 N PLATELET COUNT (test code = PLT) 343 K/mm3 150-450 N MEAN PLATELET VOLUME (test code = MPV) 10.4 fL 6.7-11.0 N NEUTROPHIL % (test code = NT%) 76.0 % 39.0-69.0 H IMMATURE GRANULOCYTE % (test code = IG%) 1.6 % 0.0-5.0 N LYMPHOCYTE % (test code = LY%) 12.2 % 25.0-55.0 L MONOCYTE % (test code = MO%) 6.8 % 0.0-10.0 N EOSINOPHIL % (test code = EO%) 2.8 % 0.0-5.0 N BASOPHIL % (test code = BA%) 0.6 % 0.0-1.0 N NUCLEATED RBC % (test code = NRBC%) 0.0 % 0-0 N NEUTROPHIL # (test code = NT#) 11.22 K/mm3 1.8-7.7 H IMMATURE GRANULOCYTE # (test code = IG#) 0.23 x10 3/uL 0-0.03 H LYMPHOCYTE # (test code = LY#) 1.80 K/mm3 1.0-5.0 N MONOCYTE # (test code = MO#) 1.01 K/mm3 0-0.8 H EOSINOPHIL # (test code = EO#) 0.41 K/mm3 0.0-0.5 N BASOPHIL # (test code = BA#) 0.09 K/mm3 0.0-0.2 N NUCLEATED RBC # (test code = NRBC#) 0.00 K/mm3 0.0-0.1 N MANUAL DIFF REQUIRED (test code = MDIFF) NO [id number] 07:45:00* Test Item Value Reference Range Interpretation Comments GLUBED (test code = GLUBED) 90 mg/dL 74-106 N Performed by certified rotary rig engine operator at [facility] [id number] 06:14:00* Test Item Value Reference Range Interpretation Comments GLUBED (test code = GLUBED) 99 mg/dL 74-106 N Performed by certified rotary rig engine operator at [facility] [id number] 23:48:00* Test Item Value Reference Range Interpretation Comments GLUBED (test code = GLUBED) 134 mg/dL 74-106 H Performed by certified rotary rig engine operator at [facility] [id number] 16:33:00* Test Item Value Reference Range Interpretation Comments GLUBED (test code = GLUBED) 102 mg/dL 74-106 N Performed by certified rotary rig engine operator at [facility] [id number] 11:26:00* Test Item Value Reference Range Interpretation Comments GLUBED (test code = GLUBED) 111 mg/dL 74-106 H Performed by certified rotary rig engine operator at [facility] [id number] 08:45:00* Test Item Value Reference Range Interpretation Comments GLUBED (test code = GLUBED) 120 mg/dL 74-106 H Performed by certified rotary rig engine operator at [facility] [id number] 06:12:00* Test Item Value Reference Range Interpretation Comments GLUBED (test code = GLUBED) 110 mg/dL 74-106 H Performed by certified rotary rig engine operator at [facility] [id number] 00:00:00* Test Item Value Reference Range Interpretation Comments GLUBED (test code = GLUBED) 102 mg/dL 74-106 N Performed by certified rotary rig engine operator at [facility] [id number] 15:36:00* Test Item Value Reference Range Interpretation Comments GLUBED (test code = GLUBED) 87 mg/dL 74-106 N Performed by certified rotary rig engine operator at [facility] HEPATITIS B CORE ANTIBODY,[id number] 13:08:00* Test Item Value Reference Range Interpretation Comments HEPATITIS B CORE ANTIBODY,TOT (test code = HBCAB) Negative Nega tive Performed At: [facility] [place], [place] [id number] Mcintyre MD Ph:[phone] [id number] 11:22:00* Test Item Value Reference Range Interpretation Comments GLUBED (test code = GLUBED) 91 mg/dL 74-106 N Performed by certified rotary rig engine operator at [facility] [id number] 07:34:00* Test Item Value Reference Range Interpretation Comments GLUBED (test code = GLUBED) 75 mg/dL 74-106 N Performed by certified rotary rig engine operator at [facility] [id number] 06:15:00* Test Item Value Reference Range Interpretation Comments GLUBED (test code = GLUBED) 89 mg/dL 74-106 N Performed by certified rotary rig engine operator at [facility] AB HEPATITIS B [id number] 06:09:00* Test Item Value Reference Range Interpretation Comments AB HEPATITIS B SURFACE (test code = HBSAB) Non Reactive () Non Reactive: Inconsistent with immunity, less than 10 mIU/mL Reactive: Consistent with immunity, greater than 9.9 mIU/mLPerformed At: [facility] [address] [place], [place] [id number] Mcintyre MD Ph:[phone] [id number] 01:40:00* Test Item Value Reference Range Interpretation Comments GLUBED (test code = GLUBED) 114 mg/dL 74-106 H Performed by certified rotary rig engine operator at [facility] [id number] 21:18:00* Test Item Value Reference Range Interpretation Comments GLUBED (test code = GLUBED) 161 mg/dL 74-106 H Performed by certified rotary rig engine operator at [facility] [id number] 11:16:00* Test Item Value Reference Range Interpretation Comments GLUBED (test code = GLUBED) 159 mg/dL 74-106 H Performed by certified rotary rig engine operator at [facility] BASIC METABOLIC [id number] 08:16:00* Test Item Value Reference Range Interpretation Comments SODIUM (test code = NA) 144 mmol/L 136-145 N POTASSIUM (test code = K) 3.1 mmol/L 3.5-5.1 L CHLORIDE (test code = CL) 110.0 mmol/L 98-107 H CARBON DIOXIDE (test code = CO2) 29.0 mmol/L 21-32 N ANION GAP (test code = GAP) 8.1 10-20 L GLUCOSE (test code = GLU) 129 mg/dL 74-106 H BLOOD UREA NITROGEN (test code = BUN) 11 mg/dL 7-18 N GLOMERULAR FILTRATION RATE (test code = GFR) 15 mL/min >=60 Estimated GFR by using Modified MDRD formula.Chronic kidney disease is defined as either kidney damageor GFR <60 mL/min/1.73 m2 for >3 months. CREATININE (test code = CREAT) 3.10 mg/dL 0.55-1.02 H Note change in reference range due to change in reagent. BUN/CREATININE RATIO (test code = BUN/CREA) 3.5 10-20 L CALCIUM (test code = CA) 7.1 mg/dL 8.5-10.1 L BASIC METABOLIC [id number] 08:05:00* Test Item Value Reference Range Interpretation Comments SODIUM (test code = NA) 144 mmol/L 136-145 N POTASSIUM (test code = K) 3.1 mmol/L 3.5-5.1 L CHLORIDE (test code = CL) 110.0 mmol/L 98-107 H CARBON DIOXIDE (test code = CO2) mmol/L 21-32 ANION GAP (test code = GAP) 10-20 GLUCOSE (test code = GLU) mg/dL 74-106 BLOOD UREA NITROGEN (test code = BUN) mg/dL 7-18 GLOMERULAR FILTRATION RATE (test code = GFR) mL/min >=60 CREATININE (test code = CREAT) mg/dL 0.55-1.02 BUN/CREATININE RATIO (test code = BUN/CREA) 10-20 CALCIUM (test code = CA) mg/dL 8.5-10.1 CBC W/O [id number] 08:04:00* Test Item Value Reference Range Interpretation Comments WHITE BLOOD CELL (test code = WBC) 11.0 K/mm3 4.5-12.5 N RED BLOOD CELL (test code = RBC) 3.61 mill/mm3 3.7-5.2 L HEMOGLOBIN (test code = HGB) 9.7 gram/dL 11.5-15.5 L HEMATOCRIT (test code = HCT) 31.4 % 36.0-46.0 L MEAN CELL VOLUME (test code = MCV) 87.0 fL 80-98 N MEAN CELL HGB (test code = MCH) 26.9 picogram 27.0-33.0 L MEAN CELL HGB CONCETRATION (test code = MCHC) 30.9 gram/dL 33.0-36. 0 L RED CELL DISTRIBUTION WIDTH (test code = RDW) 14.8 % 11.6-16. 2 N PLATELET COUNT (test code = PLT) 281 K/mm3 150-450 MEAN PLATELET VOLUME (test code = MPV) 10.8 fL 6.7-11.0 N [id number] 07:47:00* Test Item Value Reference Range Interpretation Comments GLUBED (test code = GLUBED) 125 mg/dL 74-106 H Performed by certified rotary rig engine operator at [facility] VITAMIN [id number] 06:44:00* Test Item Value Reference Range Interpretation Comments VITAMIN B12 (test code = VITB12) 1507 pg/mL 193-986 H THYROID PROFILE [id number] 06:44:00* Test Item Value Reference Range Interpretation Comments T3 UPTAKE (test code = T3UP) 36.0 % 30.0-40.0 N T4 (THYROXINE) (test code = T4) 8.0 ug/dL 4.5-13.9 N T7 (FREE THYROXINE INDEX) (test code = T7) 2.88 FTI 1.3-5.1 N THYROID STIMULATING HORMONE (test code = TSH) 8.430 uIU/mL 0.36-3.7 4 H TSH REFERENCE RANGES: EUTHYROID: 0.35 - 4.3 mIU/mL HYPO : > 5.5 mIU/mL HYPER : < 0.35 mIU/mL VITAMIN D 1,39-[id number] 06:44:00* Test Item Value Reference Range Interpretation Comments VITAMIN D 1,25-DIHYDROXY (test code = FDUN535) pgram/mL [id number] 06:10:00* Test Item Value Reference Range Interpretation Comments AMMONIA (test code = AMM) < 10 umol/L 11-32 L [id number] 05:32:00* Test Item Value Reference Range Interpretation Comments GLUBED (test code = GLUBED) 113 mg/dL 74-106 H Performed by certified rotary rig engine operator at [facility] - CT HEAD/BRAIN W/O [id number] 23:35:00 Name: DEO ESCUDERO [facility] : 1955 Age/S: 64 / F Bernardo Yang Unit #: [id number] Loc: [place] [address] Phys: Nadia Sow MD Acct: [id number] Dis Date: Status: ADM IN PHONE #: [phone] Exam Date: 07/16/2019 2307 FAX #: [phone] Reason: ams EXAMS: CPT CODE: [id number] CT HEAD/BRAIN W/O CONT 66791 DICTATION LOCATION: H48 HISTORY: Female, 64 years of age with acute change in mental status, left CVA with dysphagia EXAM: CT BRAIN WITHOUT CONTRAST COMPARISON: None TECHNIQUE: Helical axial images were obtained through the brain without IV contrast. Coronal and sagittal reformats were performed. One or more of the following dose reduction techniques were used: Automated exposure control; adjustment of the mA and/or kV according to the patient size; and/or use of iterative reconstruction technique. FINDINGS: There is loss of cortical matta-white delineation and gyral swelling involving the entire left temporal lobe consistent with subacute infarction. No other areas of loss of cortical matta-white delineation. Multiple old lacunar infarctions are seen in both basal g anglia and internal capsules. There is no acute intra-axial or extra-axial hemorrhage, mass, mass effect or midline shift. No hydrocephalus. Age-re lated atrophy and chronic deep white matter ischemic injuries are noted. There is no acute calvarial fracture. The sinuses and mastoids are clear. IMPRESSION: 1. Subacute infarction involving the enti re left temporal lobe. No evidence for acute hemorrhage, mass effect, mi dline shift, or herniation. 2. Numerous old lacunar infarctions in both basal ganglia and internal capsules. at 2335 Reporte d and signed by: Kathy Maria MD CC: Francesco Clement DO; Nadia Vega MD Technologist:CHRISTINE MEDINA; Layne CTDI: DLP: Trnscb Date/Time: 07/16/2019 (2335) t.[email or web address].CLW Orig Print D/T: S: 07/16/2019 (4367) PAGE 1 Signed Report [id number] 23:14:00* Test Item Value Reference Range Interpretation Comments GLUBED (test code = GLUBED) 111 mg/dL 74-106 H Performed by certified rotary rig engine operator at [facility] [id number] 16:30:00* Test Item Value Reference Range Interpretation Comments GLUBED (test code = GLUBED) 65 mg/dL 74-106 L [facility]~ [id number] 08:18:00* Test Item Value Reference Range Interpretation Comments GLUBED (test code = GLUBED) 75 mg/dL 74-106 N Performed by certified rotary rig engine operator at [facility] [id number] 06:47:00* Test Item Value Reference Range Interpretation Comments GLUBED (test code = GLUBED) 72 mg/dL 74-106 L Performed by certified rotary rig engine operator at [facility] [id number] 00:54:00* Test Item Value Reference Range Interpretation Comments GLUBED (test code = GLUBED) 82 mg/dL 74-106 N Performed by certified rotary rig engine operator at [facility] [id number] 18:39:00* Test Item Value Reference Range Interpretation Comments GLUBED (test code = GLUBED) 116 mg/dL 74-106 H Performed by certified rotary rig engine operator at [facility] URINALYSIS [id number] 15:45:00* Test Item Value Reference Range Interpretation Comments UA COLOR (test code = COLU) YELLOW YELLOW UA APPEARANCE (test code = APPU) CLEAR CLEAR UA GLUCOSE DIPSTICK (test code = DGLUU) 300 (2+) mg/dL NEGATIVE A UA BILIRUBIN DIPSTICK (test code = BILU) NEGATIVE mg/dL NEGATIVE UA KETONE DIPSTICK (test code = KETU) 80 (3+) mg/dL NEGATIVE A UA SPECIFIC GRAVITY (test code = SGU) 1.025 1.001-1.035 UA BLOOD DIPSTICK (test code = ANETTE) 0.03 mg/dL (Trace) mg/dL NEGATI VE A UA PH DIPSTICK (test code = PEGGY) 8.5 5.0-8.0 UA PROTEIN DIPSTICK (test code = PROU) >600 (4+) mg/dL NEGATIVE A UA UROBILINIOGEN DIPSTICK (test code = URO) 2.0 (1+) mg/dL NEGATIVE A UA NITRITE DIPSTICK (test code = HO) NEGATIVE NEGATIVE UA LEUKOCYTE ESTERASE W REFLEX (test code = LEUUR) NEGATIVE Iesha/uL NEGATIVE UA WBC (test code = WBCU) 21-50 per HPF 0-5 A UA RBC (test code = RBCU) 6-10 #/HPF 0-5 A UA EPITHELIAL CELLS (test code = EPIU) FEW per HPF FEW UA BACTERIA (test code = BACU) FEW #/HPF NONE A UA MUCUS (test code = MUCU) FEW #/LPF FEW Urine Source? CatheterAG HEPAT B [id number] 13:17:00* Test Item Value Reference Range Interpretation Comments AG HEPAT B SURF (test code = HBSAG) Nonreactive Index Nonreactive Blood [id number] 12:08:00* Test Item Value Reference Range Interpretation Comments Blood Culture (test code = [id number]) NO GROWTH AFTER 5 DAYS, [id number] Test Item Value Reference Range Interpretation Comments GLUBED (test code = GLUBED) 73 mg/dL 74-106 L Performed by certified rotary rig engine operator at [facility] BASIC METABOLIC [id number] 10:46:00* Test Item Value Reference Range Interpretation Comments SODIUM (test code = NA) 145 mmol/L 136-145 N POTASSIUM (test code = K) 3.5 mmol/L 3.5-5.1 N CHLORIDE (test code = CL) 106.0 mmol/L 98-107 N CARBON DIOXIDE (test code = CO2) 28.0 mmol/L 21-32 N ANION GAP (test code = GAP) 14.5 10-20 N GLUCOSE (test code = GLU) 81 mg/dL 74-106 N BLOOD UREA NITROGEN (test code = BUN) 12 mg/dL 7-18 N GLOMERULAR FILTRATION RATE (test code = GFR) 14 mL/min >=60 Estimated GFR by using Modified MDRD formula.Chronic kidney disease is defined as either kidney damageor GFR <60 mL/min/1.73 m2 for >3 months. CREATININE (test code = CREAT) 3.40 mg/dL 0.55-1.02 H Note change in reference range due to change in reagent. BUN/CREATININE RATIO (test code = BUN/CREA) 3.5 10-20 L CALCIUM (test code = CA) 7.8 mg/dL 8.5-10.1 L [id number] 10:46:00* Test Item Value Reference Range Interpretation Comments PHOSPHORUS (test code = PHOS) 3.7 mg/dL 2.5-4.9 N BASIC METABOLIC [id number] 10:34:00* Test Item Value Reference Range Interpretation Comments SODIUM (test code = NA) 145 mmol/L 136-145 N POTASSIUM (test code = K) 3.5 mmol/L 3.5-5.1 N CHLORIDE (test code = CL) 106.0 mmol/L 98-107 N CARBON DIOXIDE (test code = CO2) mmol/L 21-32 ANION GAP (test code = GAP) 10-20 GLUCOSE (test code = GLU) mg/dL 74-106 BLOOD UREA NITROGEN (test code = BUN) mg/dL 7-18 GLOMERULAR FILTRATION RATE (test code = GFR) mL/min >=60 CREATININE (test code = CREAT) mg/dL 0.55-1.02 BUN/CREATININE RATIO (test code = BUN/CREA) 10-20 CALCIUM (test code = CA) mg/dL 8.5-10.1 [id number] 10:34:00* Test Item Value Reference Range Interpretation Comments PHOSPHORUS (test code = PHOS) mg/dL 2.5-4.9 CBC W/AUTO [id number] 10:26:00* Test Item Value Reference Range Interpretation Comments WHITE BLOOD CELL (test code = WBC) 12.8 K/mm3 4.5-12.5 H RED BLOOD CELL (test code = RBC) 4.18 mill/mm3 3.7-5.2 N HEMOGLOBIN (test code = HGB) 11.0 gram/dL 11.5-15.5 L HEMATOCRIT (test code = HCT) 36.1 % 36.0-46.0 N MEAN CELL VOLUME (test code = MCV) 86.4 fL 80-98 N MEAN CELL HGB (test code = MCH) 26.3 picogram 27.0-33.0 L MEAN CELL HGB CONCETRATION (test code = MCHC) 30.5 gram/dL 33.0-36. 0 L RED CELL DISTRIBUTION WIDTH (test code = RDW) 15.3 % 11.6-16. 2 N RED CELL DISTRIBUTION WIDTH SD (test code = RDW-SD) 47.9 fL 37 .0-51.0 N PLATELET COUNT (test code = PLT) 336 K/mm3 150-450 N MEAN PLATELET VOLUME (test code = MPV) 9.9 fL 6.7-11.0 N NEUTROPHIL % (test code = NT%) 77.0 % 39.0-69.0 H IMMATURE GRANULOCYTE % (test code = IG%) 0.7 % 0.0-5.0 N LYMPHOCYTE % (test code = LY%) 12.2 % 25.0-55.0 L MONOCYTE % (test code = MO%) 8.0 % 0.0-10.0 N EOSINOPHIL % (test code = EO%) 1.6 % 0.0-5.0 N BASOPHIL % (test code = BA%) 0.5 % 0.0-1.0 N NUCLEATED RBC % (test code = NRBC%) 0.0 % 0-0 N NEUTROPHIL # (test code = NT#) 9.84 K/mm3 1.8-7.7 H IMMATURE GRANULOCYTE # (test code = IG#) 0.09 x10 3/uL 0-0.03 H LYMPHOCYTE # (test code = LY#) 1.56 K/mm3 1.0-5.0 N MONOCYTE # (test code = MO#) 1.02 K/mm3 0-0.8 H EOSINOPHIL # (test code = EO#) 0.20 K/mm3 0.0-0.5 N BASOPHIL # (test code = BA#) 0.07 K/mm3 0.0-0.2 N NUCLEATED RBC # (test code = NRBC#) 0.00 K/mm3 0.0-0.1 N [id number] 07:46:00* Test Item Value Reference Range Interpretation Comments GLUBED (test code = GLUBED) 65 mg/dL 74-106 L Performed by certified rotary rig engine operator at [facility] [id number] 05:47:00* Test Item Value Reference Range Interpretation Comments GLUBED (test code = GLUBED) 67 mg/dL 74-106 L Performed by certified rotary rig engine operator at [facility] CT ABDOMEN [id number] 16:09:00 [facility] [address] [address] Patient Name: DEO ESCUDERO MR #: [id number] : 1955 Age/Sex: 64/F Req #: [id number] Adm Physician: CELENA CHRISTENSEN MD Ordered by: Abdirashid Alford NP Report #: [id number] Location: MED/SURG3 Room/Bed: 285-1 Procedure: [id number] CT/ CT ABDOMEN WO Exam Date: 07/10/19 Exam Time: 1506 REPORT STATUS: Signed EXAM: CT [facility] and Abdomen WITHOUT intravenous contrast INDICATION: Occult infection COMPARISON: Chest CT 07/03/2019, CT abdomen and pelvis 06/29/2019 TECHNI QUE: The chest and abdomen were scanned utilizing a multidetector helical scan ner from the thoracic inlet to the iliac crest without administration of IV co ntrast. Coronal and sagittal reformations were obtained. IV CONTRAST: None ORAL CONTRAST: Water COMPLICATIONS: None RADIATION DOSE: Total DLP: 647.3 mGy*cm Dose modulation, iterative reconstruction , and/or weight based adjustment of the mA/kV was utilized to reduce the radia tion dose to as low as reasonably achievable. FINDINGS: LINES/ TUBES: Right IJ tunneled hemodialysis catheter terminates at the superior cavoatrial junction. LUNGS AND AIRWAYS: The central airways are patent. No focal cons olidation. No air space pulmonary edema. Mild smooth interlobular septal thick ening suggestive of mild interstitial pulmonary edema. Mild bibasilar dependen t subsegmental atelectasis.. Airways are normal. PLEURA: Trace bilateral pleural effusion left greater than right. No pneumothorax. HEART AND MED IASTINUM: The thyroid gland is normal. No mediastinal, hilar or axillary lymp hadenopathy. The heart is mildly enlarged.. There is no pericardial effusion. Scattered atherosclerotic calcifications involve the coronary arteries, aort a and proximal great vessels. HEPATOBILIARY: No focal liver lesion. No bili perla ductal dilation. Status post cholecystectomy. SPLEEN: No splenomegaly . PANCREAS: No focal masses or ductal dilatation. ADRENALS: No adrenal nodules. KIDNEYS/URETERS: No hydronephrosis, stones, or solid mass lesions. M ild bilateral perinephric stranding left greater than right, unchanged from 06/29/2019. PERITONEUM / RETROPERITONEUM: No free air or fluid. LYMPH NODES : No lymphadenopathy. VESSELS: Scattered atherosclerotic calcifications of the nonaneurysmal abdominal aorta and major branches. GI TRACT: Residual con trast material in the colon. Mild diverticulosis. No CT evidence of diverticul itis. Metallic structure in the stomach, not previously present on 06/29/2019 li amita represents an intervally ingested structure. BONES AND SOFT TISSUES: N o acute osseous injury. No suspicious lytic or blastic lesions. Mild degenerat francois changes of the visualized spine. Mild diffuse subcutaneous soft tissue bret ma. IMPRESSION: Mild interstitial pulmonary edema. Trace bilateral pleur al effusions. Associated bibasilar dependent subsegmental atelectasis. No evidence of occult infection in the abdomen or chest. Scattered arterial a therosclerotic calcifications including of the coronary arteries. S igned by: Johnathan Headley MD on 07/10/2019 4:19 PM Dictated By: JOHNATHAN HEADLEY MD 1619 Transcribed By: MONO SALAZAR on 07/10/19 1619 COPY TO: ABDIRASHID ALFORD NP CT CHEST WO 2019-07-10 16:09:00 [address] [address] Patient Name: DEO ESCUDERO MR #: [id number] : 1955 Age/Sex: 64/F Req #: [id number] Adm Physician: CELENA CHRISTENSEN MD Ordered by: Abdirashid Alford NP Report #: [id number] Location: MED/SURG3 Room/Bed: 285-1 Procedure: [id number] CT/ CT CHEST WO Exam Date: 07/10/19 Exam Time: 1506 REPORT STATUS: Signed EXAM: CT Chest and Abdomen WITHOUT intravenous contrast INDICATION: Occult infection COMPARISON: Chest CT 07/03/2019, CT abdomen and pelvis 06/29/2019 TECHNIQU E: The chest and abdomen were scanned utilizing a multidetector helical scanne r from the thoracic inlet to the iliac crest without administration of IV cont rast. Coronal and sagittal reformations were obtained. IV CONTRAST: N one ORAL CONTRAST: Water COMPLICATIONS: None RADIATION D OSE: Total DLP: 647.3 mGy*cm Dose modulation, iterative reconstruction, and/or weight based adjustment of the mA/kV was utilized to reduce the radiati on dose to as low as reasonably achievable. FINDINGS: LINES/ TUBES: Ri ght IJ tunneled hemodialysis catheter terminates at the superior cavoatrial ju nction. LUNGS AND AIRWAYS: The central airways are patent. No focal consol idation. No air space pulmonary edema. Mild smooth interlobular septal thicken ing suggestive of mild interstitial pulmonary edema. Mild bibasilar dependent subsegmental atelectasis.. Airways are normal. PLEURA: Trace bilateral p leural effusion left greater than right. No pneumothorax. HEART AND MEDIA STINUM: The thyroid gland is normal. No mediastinal, hilar or axillary lympha denopathy. The heart is mildly enlarged.. There is no pericardial effusion. Scattered atherosclerotic calcifications involve the coronary arteries, aorta and proximal great vessels. HEPATOBILIARY: No focal liver lesion. No biliar y ductal dilation. Status post cholecystectomy. SPLEEN: No splenomegaly. PANCREAS: No focal masses or ductal dilatation. ADRENALS: No adrenal n odules. KIDNEYS/URETERS: No hydronephrosis, stones, or solid mass lesions. Mil d bilateral perinephric stranding left greater than right, unchanged from 06/29/2019. PERITONEUM / RETROPERITONEUM: No free air or fluid. LYMPH NODES: No lymphadenopathy. VESSELS: Scattered atherosclerotic calcifications of the n onaneurysmal abdominal aorta and major branches. GI TRACT: Residual contr ast material in the colon. Mild diverticulosis. No CT evidence of diverticulit is. Metallic structure in the stomach, not previously present on 06/29/2019 like ly represents an intervally ingested structure. BONES AND SOFT TISSUES: No acute osseous injury. No suspicious lytic or blastic lesions. Mild degenerativ e changes of the visualized spine. Mild diffuse subcutaneous soft tissue edema . IMPRESSION: Mild interstitial pulmonary edema. Trace bilateral pleural effusions. Associated bibasilar dependent subsegmental atelectasis. No e vidence of occult infection in the abdomen or chest. Scattered arterial ath erosclerotic calcifications including of the coronary arteries. Sig edilberto by: Johnathan Headley MD on 07/10/2019 4:19 PM Dictated By: JOHNATHAN HEADLEY MD E lectronically Signed By: JOHNATHAN HEADLEY MD on 07/10/191618 Transcribed By: SCAR on 07/10/191618 COPY TO: ABDIRASHID ALFORD NP MODIFIED [id number] 14:46:00 [address] [address] Patient Name: DEO ESCUDERO MR #: [id number] : 1955 Age/Sex: 64/F Req #: [id number] Adm Physician: CELENA CHRISTENSEN MD Ordered by: CELENA CHRISTENSEN MD Report #: [id number] Location: MED/SURG3 Room/Bed: [facility] Procedure: [id number] DX/M ODIFIED BA. SWALLOW Exam Date: 07/09/19 Exam Time: 1 450 REPORT STATUS: Signed PROCED URE: X-RAY MODIFIED BARIUM SWALLOW COMPARISON: None. INDICATION: Aspi ration Radiation Details: Fluoroscopy time: 1.2 minutes Cumulative dose : 8.2 mGy DISCUSSION: Fluoroscopic examination was performed in conjunction with speech pathology during swallowing a variety of thin and thick liquid co nsistencies. Provided images demonstrate no laryngeal penetration or aspiratio n. CONCLUSION: Modified barium swallow demonstrating no laryngeal penet ration or aspiration. Please refer to the speech pathology report for further details. Signed by: Johnathan Headley MD on 07/10/2019 2:46 PM Dictated By: JOHNATHAN HEADLEY MD 1446 Transc ribed By: SCAR on 07/10/19 1446 COPY TO: CELENA CHRISTENSEN MD CHEST SINGLE (PORTABLE)2019-07-09 16:02:00 [address] [address] Patient Name: DEO ESCUDERO MR #: [id number] : 1955 Age/Sex: 64/F Req #: [id number] Adm Physician: CELENA CHRISTENSEN MD Ordered by: VIRAL SCHULZ MD Report #: [id number] Location: MED/SURG3 Room/Bed: [facility] Procedure: [id number] DX/[facility] SINGLE (PORTABLE) Exam Date: 07/09/19 Exam Time: 1539 REPORT STATUS: Signed Chest , 1 view, 07/09/2019. History: Metabolic encephalopathy. Compar mack: 07/07/2019. Findings: The cardiomediastinal silhouette and pulmonary v asculature are within prominent with hazy bibasilar opacities, left greater th an right. Right IJ tunneled dialysis catheter is unchanged in position. There are no acute osseous or soft tissue abnormalities. Impression: Mild C HF with bibasilar atelectasis and possible small left pleural effusion without significant change. Signed by: Ehsan Carbajal on 07/09/2019 4:03 PM Dictated By: EHSAN CARBAJAL MD 02 COPY TO: ODALIS SCHULZ MD CT BRAIN [id number] 11:32:00 [address] [address] Patient Name: DEO ESCUDERO MR #: [id number] : 1955 Age/Sex: 64/F Req #: [id number] Adm Physician: CELENA CHRISTENSEN MD Ordered by: NADIA SOW MD Report #: [id number] Location: ICU Room/Bed: ICU [facility] Procedure: [id number] CT /CT BRAIN WO Exam Date: Exam Time: REPORT STATUS: Signed Examination: CT BRAIN WO CONTRAST History:Decline of condition. Comparison studies:07/03/[address] Technique: Axial images were obtained from the skull base to the verte x. Coronal and sagittal images reconstructed from the axial data. Dose modul ation, iterative reconstruction, and/or weight based adjustment of the mA/kV w as utilized to reduce the radiation dose to as low as reasonably achievable. Intravenous contrast: None Findings: Scalp: No abnormalities. Bone s: No fractures, blastic or lytic lesions. Brain sulci: Appropriate for age . Ventricles: Normal in size and configuration. No hydrocephalus. Extra-a xial space: No abnormalities. Parenchyma: There is further demarcation of the cortical and subcortical hypoattenuation of the superior and middle te mporal gyri and parietal operculum with associated effacement of the sulci. No herniation or midline shift. Chronic lacunar infarcts of the right striatoca psular region and bilateral subinsular cortices, thalami and putamina, unchang ed. No masses, hemorrhage, or chronic cortical based vascular insults. Se llar/suprasellar region: No abnormalities. Craniocervical junction: Patent for amen magnum. No Chiari one malformation. Incidental findings: Atheroscle rotic calcification of the cavernous and supraclinoid internal carotid and V4 segments of the bilateral vertebral arteries. Impression: Acute, non hemorrhagic left middle cerebral artery infarct with further demarcation when compared to prior head CT dated 07/03/2019. No herniation or midline shift. Unchanged chronic lacunar infarcts as above. Dr. Lexi Leung disc ussed new, acute findings and recommendations with Nurse Moriah on 07/07/2019 a t 1140 hours. Signed by: Dr. Lexi Leung M.D. on 07/07/2019 11:44 AM Dictated By: LEXI AHMADI MD 1144 Transcribed By: SCAR on 07/07/19 114 4 COPY TO: NADIA SOW MD CHEST SINGLE (PORTABLE)2019-07-07 06:47:00 [address] [address] Patient Name: DEO ESCUDERO MR #: [id number] : 1955 Age/Sex: 64/F Req #: [id number] Adm Physician: CELENA CHRISTENSEN MD Ordered by: VIRAL SCHULZ MD Report #: [id number] Location: ICU Room/Bed: ICU [facility] Procedure: [id number] DX/[facility] SINGLE (PORTABLE) Exam Date: 07/07/19 Exam Time: 0515 REPORT STATUS: Signed [place]: Single AP view of the chest. COMPARISON: AP chest 07/05/2019 IN DICATION: Acute on chronic failure, pneumonia IMPRESSION: 1. Paulino es and Tubes: Stable dual-lumen central venous catheter with distal tip projec ting at the cavoatrial junction. 2. Unchanged low lung volumes and bilateral basilar atelectatic changes, left greater than right. The left costophrenic an gle is indistinct, which may reflect a small pleural effusion. 3. Stable en largement of the cardiac silhouette. Stable central venous congestion. 4. No acute bony abnormalities. Signed by: Dr. Jack Godfrey M.D. on 07/07 6:51 AM Dictated By: JACK GODFREY MD 0 Transcribed By: SCAR on 07/07/19650 COPY TO: VIRAL SCHULZ MD Differential Total Cells [id number] 06:43:00* Test Item Value Reference Range Interpretation Comments Differential Total Cells Counted (test code = Differrocco tial Total Cells Counted) 100 [facility] ([facility]ual[facility]2019-07-06 06:43:00 * Test Item Value Reference Range Interpretation Comments Neutrophils % (Manual) (test code = 74256-4) 82 40-74 [facility]ymph[facility] % (Manual)2019-07-06 06:43:00 * Test Item Value Reference Range Interpretation Comments Lymphocytes % (Manual) (test code = 737-7) 15 19-48 [facility] % (Manual)2019-07-06 06:43:00* Test Item Value Reference Range Interpretation Comments Monocytes % (Manual) (test code = 744-3) 3 3.4-9.0 [facility] HospitalPlatelet [id number] 06:43:00* Test Item Value Reference Range Interpretation Comments Platelet Estimate (test code = 03518-3) ADEQUATE [facility] HospitalPlatelet Morphology [id number] 06:43:00* Test Item Value Reference Range Interpretation Comments Platelet Morphology Comment (test code = 59927-4) NORMAL [facility] HospitalRed Cell Morphology [id number] 06:43:00* Test Item Value Reference Range Interpretation Comments Red Cell Morphology Comment (test code = 6742-1) NORMAL [facility] Hospital[facility] SINGLE ([facility]ABLE)2019-07-05 09:33:00 [facility] [address] [address] Patient Name: DEO ESCUDERO MR #: [id number] : 1955 Age/Sex: 64/F Req #: [id number] Adm Physician: CELENA CHRISTENSEN MD Ordered by: VIRAL SCHULZ MD Report #: [id number] Location: ICU Room/Bed: [place] [address] [address] Procedure: [id number] DX/[facility] SINGLE (PORTABLE) Exam Date: 07/05/19 Exam Time: 914 REPORT STATUS: Signed EXAMI NATION: CHEST SINGLE (PORTABLE) COMPARISON: CT chest 07/03/2019 IN DICATION: Leukocytosis [id number] DISCUSSION: Frontal view of the chest obtained at 0918 hours. HEART AND MEDIASTINUM: Stable cardio megaly. Central pulmonary vasculature is prominent and stable. LINES: Dual lumen central venous catheter terminates at the cavoatrial junction LUNGS: Low lung volumes and bibasilar atelectasis. No confluent infiltrates in the upper lung zones. No pneumonia or pulmonary edema. PLEURA: No large effusions. No pneumothorax. BONES AND SOFT TISSUES: No focal osseous lesio n. The soft tissues are normal. IMPRESSION: Bibasilar atelectasis. Sm all foci of pneumonia cannot be excluded. Cardiomegaly and chronic central vas cular congestion. Signed by: Dr. Eliz Tyson MD on 07/05/2019 9:35 AM Dictated By: ELIZ TYSON MD 4 Transcribed By: SCAR on 07/05/19934 COPY TO: VIRAL SCHULZ MD Eosinophils % (Manual)2019-07-05 08:49:00* Test Item Value Reference Range Interpretation Comments Eosinophils % (Manual) (test code = 714-6) 1 0-7 [facility] % (Manual)2019-07-04 08:48:00* Test Item Value Reference Range Interpretation Comments Basophils % (Manual) (test code = 82037-4) 1 0-1.5 [facility] HospitalCTA [id number] 20:54:00 [place] [address] Patient Name: DEO ESCUDERO MR #: [id number] : 1955 Age/Sex: 64/F Req #: [id number] Adm Physician: CELENA CHRISTENSEN MD Ordered by: NADIA SOW MD Report #: [id number] Location: ICU Room/Bed: ICU [facility] Procedure: [id number] CT /CTA BRAIN Exam Date: 07/03/19 Exam Time: 1900 REPORT STATUS: Signed History: Stroke is seen on same day MRI, altered mental status. Comparison studies:Brain MRI 07/03/2019 and 01/10/2019. Technique: Axial images were obtained through t he brain prior to the administration of IV contrast. Axial images were then ob tained from the vertex through the thoracic inlet following the administration of IV contrast. Multiplanar MIP as well as 3-D volume rendered images of the arterial circulation of the neck and zuni of [place] were reformatted from th e axial source data. Dose modulation, iterative reconstruction, and/or weight based adjustment of the mA/kV was utilized to reduce the radiation dose to as low as reasonably achievable. Intravenous contrast: 100 cc of Isovue-370. Findings: Head CT: Exam limited by artifacts related to patient layton on. In spite of limitations: Subtle loss of matta-white differentiation in t he left temporal lobe without significant mass effect in the location of known acute infarct seen seen on the same day and brain MRI. Identified are multipl e chronic lacunar infarcts, such as that within the bilateral deep frontal whi te matter, bilateral basal ganglia and bilateral thalami. Scattered and conflu ent hypodensities throughout the supratentorial white matter are nonspecific b ut are most compatible with chronic microvascular ischemic changes. No gross a cute hemorrhage or gross new acute cortical infarct. Neck CTA: Exam is limited by artifacts related to patient motion. If present, stenosis is calculated utilizing the NASCET method which calculates the degree of stenosis with reference to the normal lumen of the carotid artery distal to the stenos is. Aortic arch and great vessels: Scattered calcified atherosclerosis in the aortic arch with mild nonstenotic calcified and soft plaque at the left s ubclavian artery origin. Common carotid arteries: Patent, no stenosis. C arotid bulbs: Patent bilaterally. Evaluation limited by artifacts. No gross st enosis. Internal carotid arteries: Evaluation limited by artifacts, no gross abnormalities. Vertebral arteries: Patent bilaterally with moderate stenos is at the right vertebral artery origin and mild stenosis at the left vertebra l artery origin. Intracranial CTA: Internal carotid arteries: Patent b ilaterally with moderate calcified plaque in the bilateral cavernous and parao phthalmic segments with no significant stenosis on the right. Calcified and so ft plaque in the proximal left paraophthalmic segment result in moderate steno sis. Middle cerebral arteries: Patent bilateral M1 segments. Luminal irregu larity throughout the bilateral MCAs presumably related atherosclerosis. Sever e focal short segmental stenosis/near total occlusion within a left perisylvia n M2 MCA division (series 7, image 416). Flow is maintained distally beyond th e area of stenosis. Evaluation of more distal MCA branches is limited by CTA. Anterior cerebral arteries: Patent bilateral A1 and A2 segments. Posterio r circulation: Vertebral arteries: Patent, no significant stenosis. Basilar artery: Patent with mild narrowing of the distal basilar artery between the pa tent bilateral superior cerebellar arteries and left P1 RADIO STATION MANAGER segment. Posterior cerebral arteries: Patent bilaterally. The right P1 segment is not visualized and may be absent or hypoplastic beyond resolution of CTA and there is a prom inent right posterior communicator artery which supplies the right RADIO STATION MANAGER (- type RADIO STATION MANAGER origin). Anatomical variants: Acom: Patent. Pcoms: Patent bila terally. Right -type RADIO STATION MANAGER origin. Vertebral arteries: Codominant. Add itional findings: Lens replacements for previous cataract surgery. Mild non specific left premaxillary soft tissue swelling. No fracture. Partially imaged dual-lumen right IJ dialysis catheter IMPRESSION: Head CT: 1. Exam limited by motion artifacts. 2. Acute nonhemorrhagic left temporal infarct w ithout significant mass effect in the left MCA territory is grossly unchanged from the 07/03/2019 MRI at 15:48 hours. 3. No gross acute hemorrhage or othe r acute intracranial abnormalities. 4. Moderate chronic microvascular ischem ic changes with multiple chronic lacunar infarcts as described. Neck CTA: 1. Exam limited by motion artifact. 2. Patent carotid arteries without gr oss stenosis. 3. Patent bilateral vertebral arteries with moderate stenosis a t the right vertebral artery origin and mild stenosis at the left vertebral ar ciaran origin. Intracranial CTA: 1. Moderate intracranial atherosclerosis. 2. Patent bilateral M1 MCA segments with severe focal stenosis/near total occlusion within a left M2 perisylvian MCA branch. 3. Moderate stenosis in th e left paraophthalmic ICA segment. 4. Mild narrowing of the distal basilar ar ciaran. 5. Anatomical variant right RADIO STATION MANAGER origin. Signed by: Dr. Ronald Wharton M.D. on 07/03/2019 9:42 PM Dictated By: RONALD WHARTON MD Elec tronically Signed By: RONALD WHARTON MD on 07/03/192141 Transcribed By: MONO SALAZAR on 07/03/192141 COPY TO: NADIA SOW MD CTA NECK 2019-07-03 20:54:00 [place] [address] Patient Name: DEO ESCUDERO MR #: [id number] : 1955 Age/Sex: 64/F Req #: [id number] Adm Physician: CELENA CHRISTENSEN MD Ordered by: NADIA SOW MD Report #: [id number] Location: ICU Room/Bed: ICU [facility] Procedure: [id number] CT /CTA NECK Exam Date: 07/03/19 Exam Time: 1900 REPORT STATUS: Signed History: Stroke is seen on same day MRI, altered mental status. Comparison studies:Brain MRI and 01/10/2019. Technique: Axial images were obtained through th e brain prior to the administration of IV contrast. Axial images were then obt ained from the vertex through the thoracic inlet following the administration of IV contrast. Multiplanar MIP as well as 3-D volume rendered images of the a rterial circulation of the neck and zuni of [place] were reformatted from the axial source data. Dose modulation, iterative reconstruction, and/or weight b ased adjustment of the mA/kV was utilized to reduce the radiation dose to as l ow as reasonably achievable. Intravenous contrast: 100 cc of Isovue-370. Findings: Head CT: Exam limited by artifacts related to patient motio n. In spite of limitations: Subtle loss of matta-white differentiation in th e left temporal lobe without significant mass effect in the location of known acute infarct seen seen on the same day and brain MRI. Identified are multiple chronic lacunar infarcts, such as that within the bilateral deep frontal whit e matter, bilateral basal ganglia and bilateral thalami. Scattered and conflue nt hypodensities throughout the supratentorial white matter are nonspecific bu t are most compatible with chronic microvascular ischemic changes. No gross ac ekuk hemorrhage or gross new acute cortical infarct. Neck CTA: Exam i s limited by artifacts related to patient motion. If present, stenosis is c alculated utilizing the NASCET method which calculates the degree of stenosis with reference to the normal lumen of the carotid artery distal to the stenosi s. Aortic arch and great vessels: Scattered calcified atherosclerosis in the aortic arch with mild nonstenotic calcified and soft plaque at the left mayers bclavian artery origin. Common carotid arteries: Patent, no stenosis. Ca rotid bulbs: Patent bilaterally. Evaluation limited by artifacts. No gross jose manuel nosis. Internal carotid arteries: Evaluation limited by artifacts, no gross abnormalities. Vertebral arteries: Patent bilaterally with moderate stenosi s at the right vertebral artery origin and mild stenosis at the left vertebral artery origin. Intracranial CTA: Internal carotid arteries: Patent bi laterally with moderate calcified plaque in the bilateral cavernous and paraop hthalmic segments with no significant stenosis on the right. Calcified and sof t plaque in the proximal left paraophthalmic segment result in moderate stenos is. Middle cerebral arteries: Patent bilateral M1 segments. Luminal irregul arity throughout the bilateral MCAs presumably related atherosclerosis. Severe focal short segmental stenosis/near total occlusion within a left perisylvian M2 MCA division (series 7, image 416). Flow is maintained distally beyond the area of stenosis. Evaluation of more distal MCA branches is limited by CTA. Anterior cerebral arteries: Patent bilateral A1 and A2 segments. Posterior circulation: Vertebral arteries: Patent, no significant stenosis. Basilar a rtery: Patent with mild narrowing of the distal basilar artery between the pat ent bilateral superior cerebellar arteries and left P1 RADIO STATION MANAGER segment. Posterior cerebral arteries: Patent bilaterally. The right P1 segment is not visualized and may be absent or hypoplastic beyond resolution of CTA and there is a promi nent right posterior communicator artery which supplies the right RADIO STATION MANAGER (-t ype RADIO STATION MANAGER origin). Anatomical variants: Acom: Patent. Pcoms: Patent bilat erally. Right -type RADIO STATION MANAGER origin. Vertebral arteries: Codominant. Jesus tional findings: Lens replacements for previous cataract surgery. Mild nons pecific left premaxillary soft tissue swelling. No fracture. Partially imaged dual-lumen right IJ dialysis catheter IMPRESSION: Head CT: 1. Exam limited by motion artifacts. 2. Acute nonhemorrhagic left temporal infarct wi thout significant mass effect in the left MCA territory is grossly unchanged f rom the 07/03/2019 MRI at 15:48 hours. 3. No gross acute hemorrhage or other acute intracranial abnormalities. 4. Moderate chronic microvascular ischemi c changes with multiple chronic lacunar infarcts as described. Neck CTA: 1. Exam limited by motion artifact. 2. Patent carotid arteries without philip ss stenosis. 3. Patent bilateral vertebral arteries with moderate stenosis at the right vertebral artery origin and mild stenosis at the left vertebral art orlin origin. Intracranial CTA: 1. Moderate intracranial atherosclerosis. 2. Patent bilateral M1 MCA segments with severe focal stenosis/near total o cclusion within a left M2 perisylvian MCA branch. 3. Moderate stenosis in the left paraophthalmic ICA segment. 4. Mild narrowing of the distal basilar art orlin. 5. Anatomical variant right RADIO STATION MANAGER origin. Signed by: Dr. Ronald Wharton M.D. on 07/03/2019 9:42 PM Dictated By: RONALD WHARTON MD [facility] Signed By: RONALD WHARTON MD on 07/03/192141 Transcribed By: JARRED Isbell on 07/03/192141 COPY TO: NADIA SOW MD MRI BRAIN WO 2019-07-03 16:21:00 [place] [address] Patient Name: DEO ESCUDERO MR #: [id number] : 1955 Age/Sex: 64/F Req #: [id number] Adm Physician: CELENA CHRISTENSEN MD Ordered by: Abdirashid Alford DAIRY INSPECTOR Report #: [id number] Location: [facility] Room/Bed: [facility] Procedure: [id number] MRI /MRI BRAIN WO Exam Date: Exam Time: REPORT STATUS: Signed Examination: Brain MRI w ithout Contrast History: Altered mental status. Confusion. Comparison st udies: Brain MRI performed January 02, 2019 Technique: Precontrast: Hi reso lution Sag T1 with coronal and axial reformats. Axial DWI, T2, T2 flair, gradi ent echo or SWI Intravenous contrast: None. Findings: Structural les ions: No intra-or extra-axial masses. No hematomas. Atrophy: General: Symmetric and age appropriate. Focal: No disproportionate lobar, hippocampal, mesencephalic, pontine, or cerebellar atrophy. Matta matter: Cortex:The re is subtle FLAIR signal and increased signal on DWI with reciprocal ADC map involving the left inferior temporal gyrus and left periatrial white matter. Basal ganglia: There are chronic infarcts in the bilateral thalami and subins ular cortices. Thalami: There are chronic infarcts in the bilateral thalami. Micro hemorrhages: None. White matter signal intensity: There are patchy and confluent areas of T2/FLAIR hyperintensity in the periventricular a nd subcortical and pontine white matter, nonspecific. There is a chronic infa rct in the right centrum semiovale. Subarachnoid spaces: No signal abnorm alities. Ventricles: Normal in size and configuration. No hydrocephalus . Hippocampi, fornix and mammillary bodies: Normal in size and symmetric. Other: Skull: No bone marrow abnormalities. Vessels: Expected flow voi ds present in the major arteries and dural sinuses.. Sella: Normal in size. N o intra-or suprasellar abnormalities. Cranio-cervical junction: No abnormaliti es. Patent foramen magnum. No Chiari one malformation. Paranasal sinuses: No T2 hyperintense mucosal thickening. IMPRESSION: 1. New, hyperacute , nonhemorrhagic left middle cerebral artery territory infarct when compared t o prior brain MRI performed January 02, 2019. 2. Moderate chronic microvascul ar ischemic change. 3. Chronic infarcts as above. Dr. Lexi urbano discussed acute finding with Nurse Blair on 07/03/2019 at 162 hours. Signed by: Dr. Lexi Leung M.D. on 07/03/2019 4:29 PM Dictated By : LEXI AHMADI MD 28 Transcribed By: SCAR on 07/03/191628 COPY TO: ABDIRASHID ALFORD NP [id number] 15:56:00* Test Item Value Reference Range Interpretation Comments Ammonia (test code = 49666-4) 41 31-123 [facility] C [id number] 10:33:00* Test Item Value Reference Range Interpretation Comments Hepatitis C Antibody (test code = 49213-0) <0.1 Reference Range:0.0 - 0.9 s/co ratio Negative: < 0.8 Indeterminate: 0.8 - 0.9 Positive: > 0.9 The CDC recommends that a positive HCV antibody result be followed up with a HCV Nucleic Acid Amplification test (088757).Performed at: - [address] [id number] Director: Kevin Lino MD, Phone: [phone] [facility] CHE[facility] [id number] 09:37:00 [place] [address] Patient Name: DEO ESCUDERO MR #: [id number] : 1955 Age/Sex: 64/F Req #: [id number] Adm Physician: CELENA CHRISTENSEN MD Ordered by: Abdirashid Alford DAIRY INSPECTOR Report #: [id number] Location: MED/SURG3 Room/Bed: [facility] Procedure: [id number] CT/ CT CHEST WO Exam Date: Exam Time: REPORT STATUS: Signed EXAM: CT Chest WITHOUT int ravenous contrast 07/03/2019 6:40 AM INDICATION: Pneumonia COMPARISON: Chest radiograph of 04/17/2019, 06/29/2019 TECHNIQUE: Chest was scanned utilizing a multidetector helical scanner from the lung apex through the level of the adr enal glands without administration of IV contrast. Coronal and sagittal reform ations were obtained. Routine protocol was performed. IV CONTRAST: None RADIATION DOSE: Total DLP: 436.1 mGy*cm. Dose modulation, iterative reconstru ction, and/or weight based adjustment of the mA/kV was utilized to reduce the radiation dose to as low as reasonably achievable. COMPLICATIONS: None F INDINGS: LINES/ TUBES: Right IJ tunneled hemodialysis catheter terminates a t the superior right atrium. LUNGS AND AIRWAYS: The central airways are patent. Bibasilar dependent subsegmental atelectasis. Diffuse lower lobe predo minant groundglass opacities as well as smooth interlobular septal thickening, consistent with pulmonary edema. No focal consolidation. PLEURA: Trace bilateral pleural effusion. No pneumothorax. HEART AND MEDIASTINUM: The thy roid gland is normal. No supraclavicular lymphadenopathy. Multiple prominent mediastinal lymph nodes including of the prevascular and pretracheal stations, the largest measuring up to 2.2 x 1.5 cm (series 2 image 30). No hilar lympha denopathy. No axillary, subpectoral, or internal mammary lymphadenopathy. The heart is mildly enlarged. Trace pericardial effusion. Atherosclerotic calcifi cations of the coronary arteries, thoracic aorta, and proximal great vessels. UPPER ABDOMEN: Limited noncontrast images of the upper abdomen demonstrate postoperative findings of cholecystectomy and no focal abnormality of the pa rtially visualized liver, spleen, adrenals, or upper most kidneys. There is ap parent mild fat stranding associated with the pancreas which did not appear to be present on the abdominal CT of 06/29/2019. BONES: No acute osseous injury . SOFT TISSUES: Mild diffuse subcutaneous soft tissue edema. IMPRESSIO N: Cardiomegaly, pulmonary edema and trace bilateral pleural effusions. No fo lawrence pneumonia. Mediastinal lymphadenopathy is likely reactive. Apparent m ild fat stranding associated with the partially visualized pancreas did not ap pear to be present on prior abdomen CT of 06/29/2019. Recommend correlation with pancreatic enzymes. Atherosclerotic calcifications, including of the coron perla arteries. Signed by: Johnathan Headley MD on 07/03/2019 9:52 AM Dict ated By: JOHNATHAN HEADLEY MD 1 Transcribed By: SCAR on 07/03/19951 COPY TO: ABDIRASHID ALFORD NP [id number] 11:48:00* Test Item Value Reference Range Interpretation Comments Folate (test code = 2284-8) <2.0 >3.0 A serum folate concentration of less than 3.1 ng/mL isconsidered to represent cl inical deficiency.Performed at: HD - [facility] [address] [place], [place] [id number] Director: Kevin Lino MD, Phone: [phone] StationMD SEDATE INITIAL > 5 [id number] 12:41:00 [facility] [address] [address] Patient Name: DEO ESCUDERO MR #: [id number] : 1955 Age/Sex: 64/F Req #: [id number] Adm Physician: CELENA CHRISTENSEN MD Ordered by: MICHAEL BEACH MD Report #: [id number] Location: ICU Room/Bed: ICU [facility] Procedure: [id number] Dre Arenas/ SEDATE INITIAL > 5 YRS Exam Date: 07/01/19 Exam Time: 1154 REPORT STATUS: Signed Tunneled dialysis catheter insertion, 07/01/2019. History: Renal failure. Modality: Sonography and fluoroscopy. Sedation: Versed 1.0 mg and fentanyl 50 mcg was given intravenously for conscious sedation. Vital signs were monitored throughout the procedure by a nurse, and remained stable. Physician intra-service time was 15 in its. Sales And Marketing Coordinator: Baylee. Carpet Floor Layer Apprentice: None. Approach: Right internal jugular vein Estimated blood loss: < 5 cc. Specimen: None. Fluoroscopy Time: 0.1 min. Dose (Ka,r): 1.4 mGy. Technique: Informed written consent was obtained. Discussion of risks, benefits, and alternatives were made with the patient. The patient expressed understanding and agreed to proceed. All elements maximal sterile barrier technique was utilized for this procedure, including utilization of sterile scrub solution for skin prep, a large sterile sheet to cover the areas of the patient that were not prepped, and hand hygiene, mask, head covering, and ster ile gown for performing radiologist and scrub technologist. The skin was a nesthetized with 2% lidocaine.Ultrasound evaluation showed a patent and compre ssible right internal jugular vein, which was punctured under direct real-time ultrasound guidance with a micropuncture needle. An ultrasound image was kathleen ed to PACS. A 0.018 inch wire was placed through the needle into the ri t atrium. A 4 Guyanese micropuncture sheath was placed. A subcutaneous tunnel was created in the right anterior chest wall by blunt dissection. A 1 cm 14. 5 Guyanese Palindrome catheter was brought through the tunnel. The vessel tract was serially dilated over a J-wire. A peel-away sheath was placed in the right IJ vein and the catheter was advanced through the sheath, with its distal tip terminating in the right atrium. The peel-away sheath was removed. The ports were flushed and aspirated easily following placement. The catheter was mayers tured to the skin with 2-0 silk to secure its placement. The small jugular in cision site was closed using resorbable suture. Vital signs were monitored thr oughout the procedure by a nurse, and remained stable. The patient tolerated the procedure well and left the department in the same condition. Results: Sp ot radiograph of the chest demonstrates the new dialysis catheter to lie in th e expected position with its tip overlying the superior right atrium. Impression: Successful, uncomplicate d placement of a right internal jugular tunneled dialysis catheter using sonog raphic and fluoroscopic guidance and conscious sedation. Signed by: Michael Beach MD on 07/01/2019 12:42 PM Dictated By: MICHAEL Casillas 1423 Transcribed B y: SCAR on 07/08/19 142 COPY TO: MICHAEL BEACH MD US GUIDANCE FOR VASCULAR [id number] 12:41:00 [place] [address] Patient Name: DEO ESCUDERO MR #: [id number] : 1955 Age/Sex: 64/F Req #: [id number] Adm Physician: CELENA CHRISTENSEN MD Ordered by: CELENA CHRISTENSEN MD Report #: [id number] Location: ICU Room/Bed: ICU 191-1 Procedure: [id number] US/U S GUIDANCE FOR VASCULAR ACCES Exam Date: 07/01/19 Ex am Time: 1136 REPORT STATUS: Signed Tunneled dialysis catheter insertion, 07/01/2019. History: Renal failure. Modality: Sonography and fluoroscopy. Sedation: Versed 1.0 mg and fentanyl 50 mcg was given intravenously for conscious sedation. Vital signs were monitored throughout the procedure by a nurse, and remained stable. Physician intra-service time was 15 in its. Sales And Marketing Coordinator: Baylee. Carpet Floor Layer Apprentice: None. Approach: Right internal jugular ve in Estimated blood loss: < 5 cc. Specimen: None. Fluoroscopy Time: 0.1 min. Dose (Ka,r): 1.4 mGy. Technique: Informed written consent was obtained. Discussion of risks, benefits, and alternatives were made with the patient. The patient expressed understanding and agreed to proceed. All elements maximal sterile barrier technique was utilized for this procedure, including utilization of sterile scrub solution for skin prep, a large sterile sheet to cover the areas of the patient that were not prepped, and hand hygiene, mask, head covering, and ster ile gown for performing radiologist and scrub technologist. The skin was a nesthetized with 2% lidocaine.Ultrasound evaluation showed a patent and compre ssible right internal jugular vein, which was punctured under direct real-time ultrasound guidance with a micropuncture needle. An ultrasound image was kathleen ed to PACS. A 0.018 inch wire was placed through the needle into the ri ght atrium. A 4 Guyanese micropuncture sheath was placed. A subcutaneous tunnel was created in the right anterior chest wall by blunt dissection. A 1 cm 14. 5 Guyanese Palindrome catheter was brought through the tunnel. The vessel tract was serially dilated over a J-wire. A peel-away sheath was placed in the right IJ vein and the catheter was advanced through the sheath, with its distal tip terminating in the right atrium. The peel-away sheath was removed. The ports were flushed and aspirated easily following placement. The catheter was mayers tured to the skin with 2-0 silk to secure its placement. The small jugular in cision site was closed using resorbable suture. Vital signs were monitored thr oughout the procedure by a nurse, and remained stable. The patient tolerated the procedure well and left the department in the same condition. Results: Sp ot radiograph of the chest demonstrates the new dialysis catheter to lie in th e expected position with its tip overlying the superior right atrium. Impression: Successful, uncomplicate d placement of a right internal jugular tunneled dialysis catheter using sonog raphic and fluoroscopic guidance and conscious sedation. Signed by: Michael Beach MD on 07/01/2019 12:42 PM Dictated By: MICHAEL Casillas 1423 Transcribed B y: SCAR on 07/08/19 1423 COPY TO: CELENA CHRISTENSEN MD IR CONSULT 2019-07-01 12:41:00 [place] [address] Patient Name: DEO ESCUDERO MR #: [id number] : 1955 Age/Sex: 64/F Req #: [id number] Adm Physician: CELENA CHRISTENSEN MD Ordered by: CELENA CHRISTENSEN MD Report #: [id number] Location: ICU Room/Bed: ICU [facility] Procedure: [id number] DX/I R CONSULT Exam Date: Exam Time: REPORT STATUS: Signed Tunneled dialysis catheter i winter, 07/01/2019. History: Renal failure. Modality: Sonogr aphy and fluoroscopy. Sedation: Versed 1. 0 mg and fentanyl 50 mcg was given intravenously for conscious sedation. Koirn l signs were monitored throughout the procedure by a nurse, and remained stabl e. Physician intra-service time was 15 in its. Primary O perator: Baylee. Carpet Floor Layer Apprentice: None. Approach: Right internal jugular vein Estimated blood loss: < 5 cc. Specimen: None. Fluoroscopy Time: 0.1 min. Dose (Ka,r): 1.4 mGy. Technique: Informed written consent was obtained. Discussion of risks, benefits, and alternatives were made with the patient. The patient expressed understanding and agreed to proceed. All elements maximal sterile barrier technique was utilized for this procedure, including utilization of sterile scrub solution for skin prep, a large sterile sheet to cover the areas of the patient that were not prepped, and hand hygiene, mask, head covering, and sterile gown for performing radiologist and scrub technologist. The skin was anesthetized with 2% lidocaine.Ultrasound evaluation showed a patent and compressible right internal jugular vein, which was punctured under direct real-time ultrasound guidance with a micropuncture needle. An ultrasound image was saved to PACS. A 0.018 inch wire was placed through the needle into the right atrium. A 4 Guyanese micropuncture sheath was placed. A subcutaneous tunnel was created in the right anterior chest wall by blunt dissection. A 1 cm 14.5 Guyanese Palindrome catheter was brought through the tunnel. The vessel tract was serially dilated over a J-wire. A peel-away sheath was placed in the right IJ vein and the catheter was advanced through the sheath, with its distal tip terminating in the right atrium. The peel-away sheath was removed. The ports were flushed and aspirated easily following placement. The catheter was mayers tured to the skin with 2-0 silk to secure its placement. The small jugular in cision site was closed using resorbable suture. Vital signs were monitored thr oughout the procedure by a nurse, and remained stable. The patient tolerated the procedure well and left the department in the same condition. Results: Sp ot radiograph of the chest demonstrates the new dialysis catheter to lie in th e expected position with its tip overlying the superior right atrium. Impression: Successful, uncomplicate d placement of a right internal jugular tunneled dialysis catheter using sonog raphic and fluoroscopic guidance and conscious sedation. Signed by: Michael Beach MD on 07/01/2019 12:42 PM Dictated By: MICHAEL Casillas 22 Transcribed B y: SCAR on 07/08/191422 COPY TO: CELENA CHRISTENSEN MD TUNNELLED CVC INSERT W/O [id number] 12:41:00 [place] [address] Patient Name: DEO ESCUDERO MR #: [id number] : 1955 Age/Sex: 64/F Req #: [id number] Adm Physician: CELENA CHRISTENSEN MD Ordered by: CELENA CHRISTENSEN MD Report #: [id number] Location: ICU Room/Bed: ICU [facility] Procedure: [id number] IR/T UNNELLED CVC INSERT W/O PORT Exam Date: Exam Time: REPORT STATUS: Signed Tunneled dialysis catheter insertion, 07/01/2019. History: Renal failure. Modality: Sonography and fluoroscopy. Sedation: Versed 1.0 mg and fentanyl 50 mcg was given intravenously for consci ous sedation. Vital signs were monitored throughout the procedure by a nurse, and remained stable. Physician intra-service time was 15 in its. Sales And Marketing Coordinator: Baylee. Carpet Floor Layer Apprentice: None. Approach: Right internal jugular vein Estimated blood loss: < 5 cc. Specimen: None. Fluoroscopy Time: 0.1 min. Dose (Ka,r): 1.4 mGy. Technique: Informed written consent was obtained. Discussion of risks, benefits, and alternatives were made with the patient. The patient expressed understanding and agreed to proceed. All elements maximal sterile barrier technique was utilized for this procedure, including utilization of sterile scrub solution for skin prep, a large sterile sheet to cover the areas of the patient that were not prepped, and hand hygiene, mask, head covering, and sterile gown for performing radiologist and scrub technologist. The skin was anesthetized with 2% lidocaine.Ultrasound evaluation showed a patent and compressible right internal jugular vein, which was punctured under direct real-time ultrasound guidance with a micropuncture needle. An ultrasound image was saved to PACS. A 0.018 inch wire was placed through the needle into the right atrium. A 4 Guyanese micropuncture sheath was placed. A subcutaneous tunnel was created in the right anterior chest wall by blunt dissection. A 1 cm 14.5 Guyanese Palindrome catheter was brought through the tunnel. The vessel tract was serially dilated over a J-wire. A peel-away sheath was placed in the right IJ vein and the catheter was advanced through the sheath, with its distal tip terminating in the right atrium. The peel-away sheath was removed. The ports were flushed and aspirated easily following placement. The catheter was mayers tured to the skin with 2-0 silk to secure its placement. The small jugular in cision site was closed using resorbable suture. Vital signs were monitored thr oughout the procedure by a nurse, and remained stable. The patient tolerated the procedure well and left the department in the same condition. Results: Sp ot radiograph of the chest demonstrates the new dialysis catheter to lie in th e expected position with its tip overlying the superior right atrium. Impression: Successful, uncomplicate d placement of a right internal jugular tunneled dialysis catheter using sonog raphic and fluoroscopic guidance and conscious sedation. Signed by: Michael Beach MD on 07/01/2019 12:42 PM Dictated By: MICHAEL Casillas 142 Transcribed B y: SCAR on 07/08/191422 COPY TO: CELENA CHRISTENSEN MD Ferritin 2019-07-01 04:35:00* Test Item Value Reference Range Interpretation Comments Ferritin (test code = 2276-4) 270.21 4.63-204.00 [facility] Hospital[facility]it[facility]12 [id number] 04:35:00* Test Item Value Reference Range Interpretation Comments Vitamin B12 Level (test code = 43195-7) 548 213-816 [facility] HospitalIron [id number] 03:57:00* Test Item Value Reference Range Interpretation Comments Iron Level (test code = 2498-4) 31 50-170 [facility] Hospital[facility] Iron Binding Noceyllr4318-29-72 03:57:00* Test Item Value Reference Range Interpretation Comments Total Iron Binding Capacity (test code = 2500-7) 139 261-4 78 [facility] HospitalPercent Iron Xesvxehtat3720-08-74 03:57:00* Test Item Value Reference Range Interpretation Comments Percent Iron Saturation (test code = 2502-3) 22 15-50 [facility] HospitalTransferrin2020-01-08 03:57:00* Test Item Value Reference Range Interpretation Comments Transferrin (test code = 3034-6) 99 180-382 [facility] HospitalPercent Reticulocyte Otryz9518-77-39 03:29:00* Test Item Value Reference Range Interpretation Comments Percent Reticulocyte Count (test code = 34488-5) 2.3 0.8-2 .2 [facility] HospitalUS ABDOMEN CQITJKCP1990-10-05 19:48:00 [facility] [address] [address] Patient Name: DEO ESCUDERO MR #: [id number] : 1955 Age/Sex: 64/F Req #: [id number] Adm Physician: Ordered by: Abdirashid Alford DAIRY INSPECTOR Report #: [id number] Location: Room/Bed: Procedure: [id number] US/U S ABDOMEN COMPLETE Exam Date: 06/29/19 Exam Time: 18 58 REPORT STATUS: Signed EXAM: C omplete Abdominal Ultrasound INDICATION: NAUSEA/VOMITING 1857 COMPARISON: Same day CT. TECHNIQUE: Transverse and longitudinal i mages of the upper abdomen were obtained. FINDINGS: Liver: Size: 17.6 cm in the right midclavicular line, enlarged Appearance: Hete rogeneous echogenicity, smooth contour Mass: No focal masses Spleen: Size: 10.1 cm in length, normal Echogenicity: Normal Ma ss: No focal masses Gallbladder: Surgically absent. Bile Ducts: Intrahepatic Ducts: No dilatation Extrahepatic Ducts: Common bile duct measures 0.7 cm, borderline dilatation, likely due to reservoir effect. Pancreas: Visualized pancreas is unremarkable. Right Kidney: Size: 11.7 cm Echogenicity: Normal Parenchymal thickness: Normal Collecting System: No hydronephrosis Stone: None Cyst/M ass: None Left Kidney: Size: 11.7 cm Echogeni city: Normal Parenchymal thickness: Normal Collecting System: N o hydronephrosis Stone: None Cyst/Mass: None Vessels: Aorta: Visualized portions are normal Inferior Vena Cava: Visualized por tions are normal Main Portal Vein: 1.1 cm, normal size with hepatopetal f low. Free Fluid: No ascites or pleural effusion IMPRESSION: H epatomegaly with heterogeneous parenchymal echotexture. No focal mass. Mild co mmon bile duct dilatation, likely due to postcholecystectomy reservoir effect. Signed by: Dr. Jesús Esquivel MD on 06/29/2019 7:51 PM Di ctated By: JESÚS ESQUIVEL MD 50 COPY TO: ABDIRASHID ALFORD NP CT ABDOMEN [id number] 19:06:00 [address] [address] Patient Name: DEO ESCUDERO MR #: [id number] : 1955 Age/Sex: 64/F Req #: [id number] Adm Physician: Ordered by: Abdirashid Alford DAIRY INSPECTOR Report #: [id number] Location: ER Room/Bed: Procedure: [id number] CT/C T ABDOMEN WO Exam Date: 06/29/19 Exam Time: 1843 REPORT STATUS: Signed EXAM: CT Abdo men WITHOUT contrast INDICATION: NAUSEA/VOMITING [id number] COMPARISON: None. TECHNIQUE: Abdomen was scanned utilizing a multidetecto r helical scanner from the lung base to the iliac crest without administration of IV contrast. Absence of intravenous contrast decreases sensitivity for det ection of focal lesions and vascular pathology. Coronal and sagittal reformati ons were obtained. Dose modulation, iterative reconstruction, and/or weight ba sed adjustment of the mA/kV was utilized to reduce the radiation dose to as lo w as reasonably achievable. Routine protocol was performed. IV CONTRAS T: None ORAL CONTRAST: None. COMPLICATIONS: None RA DIATION DOSE: Total DLP: 386.99 mGy*cm Estimated effective dose: ( DLP x 0.015 x size factor) mSv CTDIvol has been reviewed. It is below the limits set by the Radiation Protocol Committee (RPC). FINDINGS: PAULINO ES and TUBES: None. LOWER THORAX: Vascular congestion. Bibasilar subsegmen maura atelectasis. Borderline cardiomegaly. HEPATOBILIARY: Unenhanced liver is unremarkable. Common bile duct distention, likely due to reservoir ef fect. GALLBLADDER: Surgically absent. SPLEEN: No splenomegaly. PANCREAS: No focal masses or ductal dilatation. Minimal fat stranding surroun ding the pancreatic head. ADRENALS: No adrenal nodules KIDNEYS/URE TERS: No hydronephrosis. Limited for evaluation of renal parenchyma without i ntravenous contrast. Right upper pole scarring. Right upper pole subcentimeter nonobstructive calculus. No left renal stone. GI TRACT: Visualized bowel l oops are unremarkable. No evidence of bowel obstruction. LYMPH NODES: No lymphadenopathy. VESSELS: There is mild atherosclerotic disease i n the aorta and major arterial branches. PERITONEUM / RETROPERITONEUM: No free air or fluid. BONES: Unremarkable. SOFT TISSUES: Unremarkable. IMPRESSION: 1. Limited study without intravenous contrast. 2. Mild peripancreatic head fat stranding, concerning for mild pancreatitis. 3. Right renal subcentimeter nonobstructive calculi. Signed by: Dr. Jesús Esquivel MD on 06/29/2019 7:12 PM Dictated By: JESÚS carroll Signed By: JESÚS ESQUIVEL MD on 06/29/191911 Transcribed By: SCAR on 0 06/29/191911 COPY TO: ABDIRASHID ALFORD NP Thyroid Stimulating Hormone (TSH)2019-06-29 17:37:00* Test Item Value Reference Range Interpretation Comments Thyroid Stimulating Hormone (TSH) (test code = 24634-1) 3.979 0.350-4.940 [facility] HospitalLipase2020-01-06 17:16:00* Test Item Value Reference Range Interpretation Comments Lipase (test code = 3040-3) 56 8-78 [facility] HospitalHemoglobin A1c Qajrcfv1418-80-84 17:14:00 * Test Item Value Reference Range Interpretation Comments Hemoglobin A1c Percent (test code = Hemoglobin A1c Percent) 5.2 4.0-7.0 [facility] HospitalB-Type Natriuretic Uyqkckc4063-89-20 15:38:00* Test Item Value Reference Range Interpretation Comments B-Type Natriuretic Peptide (test code = 61283-3) 180.0 0-100 [facility] HospitalActivated Partial Thromboplast Time 2019-06-29 14:43:00* Test Item Value Reference Range Interpretation Comments Activated Partial Thromboplast Time (test code = 88910-5) 30.4 23.8-35.5 [facility] HospitalCHEST SINGLE (PORTABLE)2019-06-29 14:37:00 [address] [address] Patient Name: DEO ESCUDERO MR #: [id number] : 1955 Age/Sex: 64/F Req #: [id number] Adm Physician: Ordered by: JANIE HILL DO Report #: [id number] Location: ER Room/Bed: Procedure: [id number] DX /CHEST SINGLE (PORTABLE) Exam Date: 06/29/19 Exam Ti me: 1400 REPORT STATUS: Signed E XAMINATION: CHEST SINGLE (PORTABLE) INDICATION: Nausea, vomiting COMPARISON: Chest are graft and 10/11/2018 FINDINGS: LINES/TUBES:N one LUNGS:The lungs are moderately inflated. Mild bibasilar opacities, like ly subsegmental atelectasis. PLEURA:No pleural effusion or pneumothorax. MEDIASTINUM:The cardiomediastinal silhouette appears normal in size and sha pe. There is calcification of the coronary arteries, consistent with atheros clerotic disease. Chest BONES/SOFT TISSUES:No acute osseous injury. AB DOMEN:No free air under the diaphragm. IMPRESSION: Mild bibasilar opa cities, likely subsegmental atelectasis. Signed by: Johnathan Headley MD on 020 2:43 PM Dictated By: JOHNATHAN HEADLEY MD 1443 Transcribed By: SCAR on 06/29/19 1443 COPY TO: JANIE HILL DO KNEE LEFT THREE [id number] 14:35:00 [address] [address] Patient Name: DEO ESCUDERO MR #: [id number] : 1955 Age/Sex: 64/F Req #: [id number] Adm Physician: Ordered by: NATALIA GREEN NP Report #: [id number] Location: ER Room/Bed: Procedure: [id number] DX/ KNEE LEFT THREE VIEWS Exam Date: 06/22/19 Exam Time: 1326 REPORT STATUS: Signed EXAM INATION: KNEE LEFT THREE VIEWS INDICATION: Trauma COMPARISON: Non e FINDINGS: No acute fracture or dislocation. Alignment is anatom ic. Trace suprapatellar joint effusion. Mild degenerative changes. Scattered a thetotic arterial calcifications. IMPRESSION: No acute osseous injury. Trace suprapatellar joint effusion. Signed by: Johnathan Headley MD on 05/26 2:36 PM Dictated By: JOHNATHAN HEADLEY MD 1436 Transcribed By: SCAR on 06/22/19 1436 COPY TO: NATALIA GREEN NP Rapid Plasma Yydtou2391-48-12 05:20:00* Test Item Value Reference Range Interpretation Comments Rapid Plasma Reagin (test code = 17134-6) Non Reactive Non Reactive Performed at: [address] [id number] Director: Kevin Lino MD, Phone: [phone] [facility] HospitalCortisol PM Jyjcwe4550-12-00 21:56:00* Test Item Value Reference Range Interpretation Comments Cortisol PM Sample (test code = 9812-9) 8.2 2.3-11.9 16:46 DRAW TIMEPerformed at: [address], [place] [id number] Director: Kevin Lino MD, Phone: [phone] [facility] HospitalThyroid Stimulating Hormone (TSH)2019-04-19 15:20:00* Test Item Value Reference Range Interpretation Comments Thyroid Stimulating Hormone (TSH) (test code = YQZ3876) 6.260 0.450-4.500 Performed at: - [facility] [id number] Director: Kevin Lino MD, Phone: [phone] [facility] StationAmylase Pgpan7667-94-65 12:26:00* Test Item Value Reference Range Interpretation Comments Amylase Level (test code = 1798-8) 85 25-125 [facility] StationCHEST 2 EDAIH3407-29-14 18:43:00 [facility] [address] [address] Patient Name: DEO ESCUDERO MR #: [id number] : 1955 Age/Sex: 64/F Req #: [id number] Adm Physician: Ordered by: NATALIA GREEN DAIRY INSPECTOR Report #: [id number] Location: ER Room/Bed: Procedure: [id number] DX/CH EST 2 VIEWS Exam Date: 04/17/19 Exam Time: 1825 REPORT STATUS: Signed EXAMINATION : PA and lateral views of the chest. COMPARISON: None CLINICAL HISTORY : Falling asleep, chills DISCUSSION: Lines/tubes: None. Harriet ngs: The lungs are well inflated and clear. No pneumonia or pulmonary edema. Pleura: No pleural effusion or pneumothorax. Heart and mediastinum: Th e cardiomediastinal silhouette is normal. Bones and soft tissues: No acute bony abnormalities. IMPRESSION: No acute cardiopulmonary abnormalitie s. Signed by: Dr. Javan Hutchinson M.D. on 04/17/2019 6:44 PM Dictated By: JAVAN HUTCHINSON MD 43 Transcribed By: SCAR on 04/17/191843 COPY TO: NATALIA GREEN NP MRI BRAIN [id number] 11:46:00 [address] [address] Patient Name: DOE ESCUDERO MR #: [id number] : 1955 Age/Sex: 63/F Req #: [id number] Adm Physician: ZAINA GORDON MD Ordered by: KARLI MANSFIELD MD Report #: [id number] Location: MED/SURG Room/Bed: [facility] Procedure: [id number] MRI/MRI BRAIN WO Exam Date: Exam Time: REPORT STATUS: Signed EXAMINATION: Brain M RI and MR angiogram of the [place] of [place] and Neck CLINICAL HISTORY: Lef t upper extremity weakness and numbness. TIA, acute renal failure. COMPARISO N: Head CT of 01/01/2019 and brain MRI of 10/01/2018 TECHNIQUE: Brain: Sagitt al T2; axial DWI, T2, FLAIR, T1-IR, T2 gradient echo; coronal FLAIR. MRAs: 3 D TOF and 2D-TOF images were obtained of the brain and neck. Image quality: Motion artifact limits the evaluation of the MR angiogram of the neck. B RAIN MRI FINDINGS: Parenchyma: 1. Focal area of FLAIR hyperintensity and subtle restricted diffusion in the left splenium of the corpus callosum, l ikely a subacute infarction. 2. A gating of the scatter and periventricular a bnormalities. Hypodense foci as well as in the giulia,, consistent with nonspeci fic chronic microvascular ischemic changes. 3. Chronic lacunar infarcts in the right frontal frontoparietal myles radiata, right striatocapsular (with a ssociated mild ipsilateral Wallerian degeneration with FLAIR hyperintensity of the right cerebral peduncle), right putamen, and bilateral thalami. 4. No mass, hemorrhage, acute or chronic infarcts. Skull: Unremarkable. Vessels: Expected flow voids present in the major arteries and dural sinuses. Extra-axial spaces: No abnormal signal intensity or mass effect . Brain volume: Within normal limits for age. Ventricles: No hydro cephalus or displacement. Foramen magnum: Unremarkable. Sella: U nremarkable. Paranasal / mastoid sinuses: No significant inflammatory d isease. MRA OF THE [place] : The distal internal carotid, dis maura vertebral, basilar, and cerebral arteries are patent. No significant sten osis, occlusion, aneurysm, or arteriovenous malformation is seen. Anatomi c variation: Anterior Communicating Artery: Patent Posterior Communicating A rteries: Patent on the right with origin of the right RADIO STATION MANAGER, not well-visu alized on the left Vertebral arteries: Codominant MRA OF THE NECK: I f present, stenosis of the carotid bulbs is measured based on NASCET criteria i.e area of maximum stenosis compared to the cervical ICA distal to the bulb. Aortic arch and origin of the vessels: Unremarkable. Right Carotid Artery: The common carotid, carotid bulb, internal and external carotid arter ies at the level of the neck are normal in caliber, and patent, no evidence of stenoses. Left Carotid Artery: The common carotid, carotid bulb, int ernal and external carotid arteries at the level of the neck are normal in lawrence iber, and patent, no evidence of stenoses. Vertebral Arteries: Both ar e normal in morphology and caliber. Both are codominant. No significant stenos is is seen. IMPRESSION: Brain MRI: 1. Subacute ischemic insult a long the left side of the splenium, which was not seen on MRI of 10/01/2018. 2. Persistent moderate chronic microvascular ischemic changes. 3. Unchanged multiple chronic lacunar infarct versus detail above . MRI the head and nec k: No large vessel occlusion or hemodynamically significant stenosis of the carotid or vertebral arteries in the head or neck. Signed by: Sonja Perez M.D. on 01/02/2019 12:02 PM Dictated By: THOMAS PEREZ MD E lectronically Signed By: THOMAS PEREZ MD on 01/02/19 1202 Transcribed By: JARRED Isbell on 01/02/19 1202 COPY TO: KARLI MANSFIELD MD MRA HEAD WO 2019-01-02 11:46:00 [address] [address] Patient Name: DEO ESCUDERO MR #: [id number] : 1955 Age/Sex: 63/F Req #: [id number] Adm Physician: ZAINA GORDON MD Ordered by: ZAINA GORDON MD Report #: [id number] Location: MED/SURG Room/Bed: [facility] Procedure: [id number] MR I/MRA HEAD WO Exam Date: Exam Time: REPORT STATUS: Signed EXAMINATION: Brain MRI a nd MR angiogram of the [place] CLINICAL HISTORY: Left up per extremity weakness and numbness. TIA, acute renal failure. COMPARISON: H ead CT of 01/01/2019 and brain MRI of 10/01/2018 TECHNIQUE: Brain: Sagittal T 2; axial DWI, T2, FLAIR, T1-IR, T2 gradient echo; coronal FLAIR. MRAs: 3D TO F and 2D-TOF images were obtained of the brain and neck. Image quality: Mot ion artifact limits the evaluation of the MR angiogram of the neck. BRAIN MRI FINDINGS: Parenchyma: 1. Focal area of FLAIR hyperintensity and subtle restricted diffusion in the left splenium of the corpus callosum, likel y a subacute infarction. 2. A gating of the scatter and periventricular abnor malities. Hypodense foci as well as in the giulia,, consistent with nonspecific chronic microvascular ischemic changes. 3. Chronic lacunar infarcts in the right frontal frontoparietal myles radiata, right striatocapsular (with assoc iated mild ipsilateral Wallerian degeneration with FLAIR hyperintensity of the right cerebral peduncle), right putamen, and bilateral thalami. 4. No mass , hemorrhage, acute or chronic infarcts. Skull: Unremarkable. Vessels: Expected flow voids present in the major arteries and dural sin uses. Extra-axial spaces: No abnormal signal intensity or mass effect. Brain volume: Within normal limits for age. Ventricles: No hydroceph alus or displacement. Foramen magnum: Unremarkable. Sella: Unrem arkable. Paranasal / mastoid sinuses: No significant inflammatory disea se. MRA OF THE [place] : The distal internal carotid, distal vertebral, basilar, and cerebral arteries are patent. No significant stenosis , occlusion, aneurysm, or arteriovenous malformation is seen. Anatomic va riation: Anterior Communicating Artery: Patent Posterior Communicating Arter ies: Patent on the right with origin of the right RADIO STATION MANAGER, not well-visualiz ed on the left Vertebral arteries: Codominant MRA OF THE NECK: If pr esent, stenosis of the carotid bulbs is measured based on NASCET criteria i.e area of maximum stenosis compared to the cervical ICA distal to the bulb. Aortic arch and origin of the vessels: Unremarkable. Right Carotid Art orlin: The common carotid, carotid bulb, internal and external carotid arteries at the level of the neck are normal in caliber, and patent, no evidence of jose manuel noses. Left Carotid Artery: The common carotid, carotid bulb, interna l and external carotid arteries at the level of the neck are normal in caliber , and patent, no evidence of stenoses. Vertebral Arteries: Both are no rmal in morphology and caliber. Both are codominant. No significant stenosis i s seen. IMPRESSION: Brain MRI: 1. Subacute ischemic insult along the left side of the splenium, which was not seen on MRI of 10/01/2018. 2. Persistent moderate chronic microvascular ischemic changes. 3. Unchanged mult iple chronic lacunar infarct versus detail above . MRI the head and neck: No large vessel occlusion or hemodynamically significant stenosis of the lopez tid or vertebral arteries in the head or neck. Signed by: Dr. Bonnie Perez M.D. on 01/02/2019 12:02 PM Dictated By: THOMAS PEREZ MD Elect ronically Signed By: THOMAS PEREZ MD on 01/02/19 1202 Transcribed By: SCAR on 01/02/19 1202 COPY TO: ZAINA GORDON MD MRA NECK [id number] 11:46:00 [address] [address] Patient Name: DEO ESCUDERO MR #: [id number] : 1955 Age/Sex: 63/F Req #: [id number] Adm Physician: ZAINA GORDON MD Ordered by: ZAIAN GORDON MD Report #: [id number] Location: MED/SURG Room/Bed: [facility] Procedure: [id number] MR I/MRA NECK WO Exam Date: Exam Time: REPORT STATUS: Signed EXAMINATION: Brain MRI a nd MR angiogram of the [place] CLINICAL HISTORY: Left up per extremity weakness and numbness. TIA, acute renal failure. COMPARISON: H ead CT of 01/01/2019 and brain MRI of 10/01/2018 TECHNIQUE: Brain: Sagittal T 2; axial DWI, T2, FLAIR, T1-IR, T2 gradient echo; coronal FLAIR. MRAs: 3D TO F and 2D-TOF images were obtained of the brain and neck. Image quality: Mot ion artifact limits the evaluation of the MR angiogram of the neck. BRAIN MRI FINDINGS: Parenchyma: 1. Focal area of FLAIR hyperintensity and subtle restricted diffusion in the left splenium of the corpus callosum, likel y a subacute infarction. 2. A gating of the scatter and periventricular abnor malities. Hypodense foci as well as in the giulia,, consistent with nonspecific chronic microvascular ischemic changes. 3. Chronic lacunar infarcts in the right frontal frontoparietal myles radiata, right striatocapsular (with assoc iated mild ipsilateral Wallerian degeneration with FLAIR hyperintensity of the right cerebral peduncle), right putamen, and bilateral thalami. 4. No mass , hemorrhage, acute or chronic infarcts. Skull: Unremarkable. Vessels: Expected flow voids present in the major arteries and dural sin uses. Extra-axial spaces: No abnormal signal intensity or mass effect. Brain volume: Within normal limits for age. Ventricles: No hydroceph alus or displacement. Foramen magnum: Unremarkable. Sella: Unrem arkable. Paranasal / mastoid sinuses: No significant inflammatory disea se. MRA OF THE [place] : The distal internal carotid, distal vertebral, basilar, and cerebral arteries are patent. No significant stenosis , occlusion, aneurysm, or arteriovenous malformation is seen. Anatomic va riation: Anterior Communicating Artery: Patent Posterior Communicating Arter ies: Patent on the right with origin of the right RADIO STATION MANAGER, not well-visualiz ed on the left Vertebral arteries: Codominant MRA OF THE NECK: If pr esent, stenosis of the carotid bulbs is measured based on NASCET criteria i.e area of maximum stenosis compared to the cervical ICA distal to the bulb. Aortic arch and origin of the vessels: Unremarkable. Right Carotid Art orlin: The common carotid, carotid bulb, internal and external carotid arteries at the level of the neck are normal in caliber, and patent, no evidence of jose manuel noses. Left Carotid Artery: The common carotid, carotid bulb, interna l and external carotid arteries at the level of the neck are normal in caliber , and patent, no evidence of stenoses. Vertebral Arteries: Both are no rmal in morphology and caliber. Both are codominant. No significant stenosis i s seen. IMPRESSION: Brain MRI: 1. Subacute ischemic insult along the left side of the splenium, which was not seen on MRI of 10/01/2018. 2. Persistent moderate chronic microvascular ischemic changes. 3. Unchanged mult iple chronic lacunar infarct versus detail above . MRI the head and neck: No large vessel occlusion or hemodynamically significant stenosis of the lopez tid or vertebral arteries in the head or neck. Signed by: Dr. Bonnie Perez M.D. on 01/02/2019 12:02 PM Dictated By: THOMAS PEREZ MD Elect ronically Signed By: THOMAS PEREZ MD on 01/02/19 1202 Transcribed By: SCAR on 01/02/19 1202 COPY TO: ZAINA GORDON MD CHEST SINGLE (PORTABLE)2019-01-01 14:24:00 [address] [place] [address] Patient Name: DEO ESCUDERO MR #: [id number] : 1955 Age/Sex: 63/F Req #: [id number] Adm Physician: Ordered by: KARLI MANSFIELD MD Report #: [id number] Location: ER Room/Bed: Procedure: [id number] D X/CHEST SINGLE (PORTABLE) Exam Date: 01/01/19 Exam T emily: 1355 REPORT STATUS: Signed EXAMINATION: CHEST SINGLE (PORTABLE) INDICATION: Weakness COMPARI SON: None FINDINGS: TUBES and LINES: EKG leads overlie the chest. LUNGS: The lung volumes are normal. No focal consolidation or pulmonary bret ma. PLEURA: No pleural effusion or pneumothorax. HEART AND MEDIASTIN UM: The cardiomediastinal silhouette is normal in size and contour. BONES AND SOFT TISSUES: No acute fracture or dislocation. UPPER ABDOMEN: No free air under the diaphragm. IMPRESSION: No focal pneumonia or pulmonary ed kings. Signed by: Johnathan Headley MD on 01/01/2019 2:24 PM Dictated By: DENISSE HEADLEY MD 1424 Transcribe d By: SCAR on 01/01/19 1424 COPY TO: KARLI MANSFIELD MD CT BRAIN [id number] 13:27:00 [address] [place] [address] Patient Name: DEO ESCUDERO MR #: [id number] : 1955 Age/Sex: 63/F Req #: [id number] Adm Physician: Ordered by: JANIE RIVER MD Report #: [id number] Location: ER Room/Bed: Procedure: [id number] CT/ CT BRAIN WO Exam Date: 01/01/19 Exam Time: 1300 REPORT STATUS: Signed EXAMINATION: H ead CT HISTORY: Left upper extremity numbness for the last 90 minutes CO MPARISON: Brain MRI 10/01/2018 TECHNIQUE: Multidetector axial images were obtai edilberto without contrast from the foramen magnum to the vertex . The images were r econstructed using brain and bone algorithms. Thin section brain images were reformatted into coronal and sagittal planes. Image quality: Motion/streakin g artifact limits the evaluation of the skull base and posterior cranial fossa . Dose modulation, iterative reconstruction, and/or weight based adjustment of the mA/kV was utilized to reduce the radiation dose to as low as reasonably achievable. FINDINGS: Parenchyma: 1. Scattered white jarred er hypodensities, again most likely chronic microvascular ischemic changes. 2. Chronic lacunar infarcts in the right frontal myles radiata, right striat ocapsular, right putamen, and bilateral thalami. 3. No mass or hemorrhage. No CT evidence of acute territorial cortical vascular insult. Ext ra-axial spaces:No abnormal density. No extra-axial fluid collections Br ain volume: Normal for age. Ventricles: No hydrocephalus or displacement . Arteries: No density suggestive of thrombus. Dural sinuses: N o abnormal density. Extra-axial spaces: No abnormal density. For amen magnum: No mass, Chiari malformation, or basilar invagination. Sell a: No obvious mass. Paranasal/mastoid sinuses: Imaged portions unremark able. Skull/Scalp: No lytic or blastic lesions. No fractures. IMP RESSION: 1. No acute intracranial hemorrhage or cortical infarcts, if clin ical concern remains considered brain MRI for further evaluation. 2. Persis tent moderate chronic microvascular ischemic changes and small chronic lacunar infarcts as described. Signed by: Dr. Thomas ePrez M.D. on 01/01/2019 1:32 PM Dictated By: THOMAS PEREZ MD 31 Transcribed By: SCAR on 01/01/191331 COPY TO: JANIE GODINEZ MD MRI SPINE CERVICAL [id number] 14:58:00 [place] [address] Patient Name: DEO ESCUDERO MR #: [id number] : 1955 Age/Sex: 63/F Req #: [id number] Adm Physician: ZAINA GORDON MD Ordered by: ZAINA GORDON MD Report #: [id number] Location: [facility] Room/Bed: [place] [address] Procedure: [id number] MR I/MRI SPINE CERVICAL WO Exam Date: Exam Time: REPORT STATUS: Signed History: Comparison studies: None Technique: Sagittal T1, T2 and IR, axial T2 an d axial gradient echo Intravenous contrast: None Findings: Alignme nt: Normal lordosis. No scoliosis. Cervicomedullary junction: No abnormalities . Patent foramen magnum. Soft tissues: No paraspinal T2 hyperintense inflamma tory changes. Prominent adenoids again seen. Spinal cord: Normal in size and signal from the foramen magnum through T4 Vertebrae: Normal in height and signal intensity. Nondeforming hemangioma at T3 vertebral body. No fract ures, infection or neoplasm. Degenerative changes: C2-C3: Disc degen eration with loss of T2 signal. Patent canal and foramina C3-C4: Disc deg eneration with loss of T2 signal. Small central disc osteophyte complex and le ft facet hypertrophy with patent canal and foramina C4-C5: Disc degenerat ion with loss of T2 signal. Small disc osteophyte complex with patent canal an d foramina C5-C6: Disc degeneration with loss of T2 signal. Small central disc osteophyte complex and mild bilateral uncinate process hypertrophy resul ts in mild canal stenosis and mild bilateral foraminal narrowing C6-C7: Disc degeneration with loss of T2 signal. Small central disc osteophyte complex and bilateral uncinate process hypertrophy without significant canal stenosis and mild left foraminal narrowing C7-T1: Patent canal and foramina IMPRESSION: 1. Mild degenerative canal stenosis and mild bilateral crispin inal narrowing at C5-6 mild degenerative left foraminal narrowing at C6-7. Oth er mild degenerative changes as described above Signed by: DR Basim Ramirez M.D. on 10/01/2018 3:05 PM Dictated By: BASIM VIRK MD 1505 Transcribed By : SCAR on 10/01/18 1505 COPY TO: ZAINA GORDON MD MRI BRAIN [id number] 14:40:00 [place] [address] Patient Name: DEO ESCUDERO MR #: [id number] : 1955 Age/Sex: 63/F Req #: [id number] Adm Physician: ZAINA GORDON MD Ordered by: HOLA MUNOZ M.D. Report #: [id number] Location: [facility] Room/Bed: [place] [address] Procedure: [id number] MRI/MRI BRAIN WO Exam Date: Exam Time: REPORT STATUS: Signed MRI BRAIN WO HISTORY: Left arm weakness COMPARISON: MRI brain 07/14/[address] head 09/30/2018 TECHNIQUE: Sagittal T2, axial T2, axial T1, axial T2/FLAIR, axial gradient echo (or susceptibility weighted), coronal T2/FLAIR, and axial diffus ion weighted MR images of the brain were obtained without contrast. Motion art ifacts obscure some details. DISCUSSION: Scalp/bone marrow: Unremark able. Brain sulci: Appropriate for patient's age. Ventricles: Normal in siz e and configuration. No hydrocephalus. Extra-axial spaces: No masses or fluid collections. Parenchyma: Chronic bilateral thalamocapsular lacunar infarc ts. Encephalomalacia at the right myles radiata and centrum semiovale. Scat tered T2/FLAIR hyperintense foci throughout the supratentorial white matter on are likely chronic microvascular ischemic changes. Similar changes at the jaylene s. There is an old small left thalamic lacunar infarct. No hemorrhage, mass lesion or acute infarct . Vessels: Normal flow voids in major arteries and veins. Sellar/Suprasellar region: No abnormalities. Craniocervical junction : No abnormalities. Incidental findings: Both ocular lenses are thinned. The a denoid tonsils are prominent, stable. IMPRESSION: 1. No acute intracra nial abnormality. 2. Mild to moderate supratentorial/pontine chronic microvas cular ischemic change. 3. Bilateral thalamocapsular chronic lacunar infarct . Chronic lacunar infarct at the right myles radiata and centrum semiovale wi th encephalomalacia . Signed by: DR Basim Ramirez M.D. on 10/01/2018 2:57 PM Dictated By: BASIM VIRK MD 9131 Transcribed By: SCAR on 10/01/182 COPY TO: HOLA MUNOZ MD RENAL RETROPERITONEAL COMP 2018-10-01 09:25:00 [place] [address] Patient Name: DEO ESCUDERO MR #: [id number] : 1955 Age/Sex: 63/F Req #: [id number] Adm Physician: ZAINA GORDON MD Ordered by: ZAINA GORDON MD Report #: [id number] Location: [facility] Room/Bed: [place] [address] Procedure: [id number] US /US RENAL RETROPERITONEAL COMP Exam Date: 10/01/18 E xam Time: 0757 REPORT STATUS: Evelina d EXAMINATION: Renal ultrasound. CLINICAL HISTORY :Acute kidney injury COMPARISON: <None available.> TECHNIQUE: Grayscale and color Doppler evaluation of the kidneys and bladder was performed in transverse and longitudinal planes. DISCUSSION: RIGHT KIDNEY: The right kidney measures 11.5 cm in length and shows normal renal cortical echogenicity. No hydronephrosis, shadowing calculi or solid mass lesions. LEFT KIDNEY: The left kidney measures 11.2 cm in length and shows normal renal cortical echogenicity. No hydronephrosis, shadowing calculi or solid mass lesions. BLADDER: Unremarkable. Right and left ureteral jets are identified. IMPRESSION: Unremarkable sonographic appearance of the kidneys. Signed by: Dr. Ronald Hills M.D. on 10/01/2018 9:26 AM Dictated By: RONALD HILLS MD 5 Transcribed By: SCAR on 10/01/18925 COPY TO: ZAINA GORDON MD CHEST SINGLE (NOT PORTABLE)2018-09-30 13:20:00 [place] [address] Patient Name: DEO ESCUDERO MR #: [id number] : 1955 Age/Sex: 63/F Req #: [id number] Adm Physician: Ordered by: EHSAN RIVERA DAIRY INSPECTOR Report #: [id number] Location: ER Room/Bed: Procedure: DX/ CHEST SINGLE (NOT PORTABLE) Exam Date: Exam Time: REPORT STATUS: Signed EXAMINATIO N: CHEST SINGLE (NOT PORTABLE) INDICATION: Left arm numbness. COM PARISON: Chest radiograph 07/12/2018. FINDINGS: TUBES and LINES: No ne. LUNGS: Lungs are well inflated. Lungs are clear. There is no eviden ce of pneumonia or pulmonary edema. PLEURA: No pleural effusion or pneum othorax. HEART AND MEDIASTINUM: The cardiomediastinal silhouette is unrem arkable. There are atherosclerotic calcifications within the aorta. BONES AND SOFT TISSUES: No acute osseous abnormality. UPPER ABDOMEN: No free a ir under the diaphragm. Surgical clips project over the right upper quadrant. IMPRESSION: No acute radiographic abnormality. Signed by: Dr. Sunni Fuentes MD on 09/30/2018 1:22 PM Dictated By: PÉREZ FUENTES MD Electronica lly Signed By: PÉREZ FUENTES MD on 09/30/18 1322 Transcribed By: SCAR on 1322 COPY TO: EHSAN RIVERA DAIRY INSPECTOR CT BRAIN [id number] 12:43:00 [place] [address] Patient Name: DEO ESCUDERO MR #: [id number] : 1955 Age/Sex: 63/F Req #: [id number] Adm Physician: Ordered by: EHSAN RIVERA DAIRY INSPECTOR Report #: [id number] Location: ER Room/Bed: Procedure: [id number] CT/ CT BRAIN WO Exam Date: 09/30/18 Exam Time: 1220 REPORT STATUS: Signed CT BRAIN WO HISTORY: Left-sided numbness COMPARISON: MRI of the brain 07/14/2018, he ad CT 07/13/2018 TECHNIQUE: Noncontrast axial scans were obtained from sk ull base to the vertex. Coronal and sagittal reconstructions obtained from th e axial data. One or more of the following dose reduction techniques were use d: Automated exposure control, adjustment of the mA and/or kV according to pat ient size, and/or utilization of iterative reconstruction technique. DISC USSION: Scalp/Skull: Unremarkable. Brain sulci: Appropriate for patient's age. Ventricles: Normal in size and configuration. No hydrocephalus. Extra -axial spaces: No masses or fluid collections. Carotid siphon calcifications are present. Parenchyma: Focal hypodensities in the right myles radiata and right striatocapsular region are likely related to old lacunar infarcts ( acute on prior MRI). Old small bilateral thalamic lacunar infarcts are also p resent. Mild to moderate periventricular white matter hypodensities are likely chronic microvascular ischemic changes. Otherwise, no mass, hemorrhage, or large vascular territory acute infarct. Dural sinuses: No abnormal densiti es. Sellar/Suprasellar region: Intact. Skull base: Intact. Incidental find ings: None. IMPRESSION: 1. Focal hypodensities in the right myles ra diata and right striatocapsular region are likely related to old lacunar infar cts (acute on prior MRI). 2. Otherwise, no acute intracranial abnormalities. 3. Mild to moderate supratentorial chronic microvascular ischemic change. 4. Old small bilateral thalamic lacunar infarcts. Signed by: Dr. Spencer Canchola M.D. on 09/30/2018 12:52 PM Dictated By: SPENCER SANCHES MD Electr onically Signed By: SPENCER SANCHES MD on 09/30/18 1252 Transcribed By: JARRED Isbell on 09/30/18 1252 COPY TO: EHSAN RIVERA DAIRY INSPECTOR MODIFIED BA. [id number] 14:34:00 [place] [address] Patient Name: DEO ESCUEDRO MR #: [id number] : 1955 Age/Sex: 63/F Req #: [id number] Adm Physician: ZAINA GORDON MD Ordered by: ZAINA GORDON MD Report #: [id number] Location: ICU Room/Bed: ICU [facility] Procedure: [id number] DX /MODIFIED BA. SWALLOW Exam Date: 07/14/18 Exam Time: 1200 REPORT STATUS: Signed EXAM : Modified barium swallow with Speech Pathologist INDICATION: Reporte d coughing with po intake [id number] COMPARISON: None available. RADIATION DOSE: Fluoroscopy Time: 1.4 min Dose (Kerma) Area Pro duct: 2.58 Gycm2 Air Kerma (AK) value has been reviewed. It is below th e limits set by the Radiation Protocol Committee (RPC) committee. FINDING S: See impression IMPRESSION: Trace laryngeal penetratio n with thin liquids. No aspiration. Please see speech pathology report for det marcella description and recommendations. Signed by: Dr. Ronald Caldera M.D. on 07/14/2018 2:35 PM Dictated By: RONALD HILLS MD Electronicall y Signed By: RONALD HILLS MD on 07/14/18 1435 Transcribed By: SCAR on 07/14 1435 COPY TO: ZAINA GORDON MD MRA HEAD [id number] 13:17:00 [place] [address] [place] [address] Patient Name: DEO ESCUDERO MR #: [id number] : 1955 Age/Sex: 63/F Req #: [id number] Adm Physician: ZAINA GORDON MD Ordered by: ZAINA GORDON MD Report #: [id number] Location: ICU Room/Bed: ICU [facility] Procedure: [id number] MR I/MRA HEAD WO Exam Date: Exam Time: REPORT STATUS: Signed MRA NECK WO, MRA HEAD WO HISTORY: Weakness, right-sided facial droop COMPARISON: Concurrent M RI of the brain TECHNIQUE: Axial 2D cervical, and axial 3D intracranial nbla-ov-neppyi MRA images were obtained without contrast. Maximum intensity pr ojection and coronal/sagittal reformatted images were created. If present, an y cervical carotid stenosis will be measured as a percentage relative to the n ative artery distal to the stenosis. Intracranial MRA source axial images and MIPS were reviewed on Web Ambassador system. FINDINGS: CERVICAL MRA: Motion and noise artifacts obscure some details. Right Carotid: No flow abnormalities. Left Carotid: No flow abnormalities. Right vertebral adriel ry: No flow abnormalities. Left vertebral artery: No flow abnormalities. INTRACRANIAL MRA: Carotid arteries: No flow abnormalities in the intra cranial internal carotid arteries. Normal A1 and M1 segments. Vertebrobas ilar Circulation: Right vertebral artery: No flow abnormalities. Left verte bral artery: No flow abnormalities. Basilar artery: No flow abnormalities. Posterior cerebral arteries: No flow abnormalities. Normal Variants: AC om: May be patent. PComs: Not visualized on the left. Persistent circula tion on the right. Vertebral arteries: Co-dominant. IMPRESSION: No cerv ical or intracranial MRA abnormalities. Signed by: Dr. Spencer Sanches M.D. on 07/14/2018 1:24 PM Dictated By: SPENCER SANCHES MD Electronically Si gned By: SPENCER SANCHES MD on 07/14/181323 Transcribed By: SCAR on 1323 COPY TO: ZANIA GORDON MD MRA NECK [id number] 13:17:00 [place] [address] Patient Name: DEO ESCUDERO MR #: [id number] : 1955 Age/Sex: 63/F Req #: [id number] Adm Physician: ZAINA GORDON MD Ordered by: ZAINA GORDON MD Report #: [id number] Location: ICU Room/Bed: ICU [facility] Procedure: [id number] MR I/MRA NECK WO Exam Date: Exam Time: REPORT STATUS: Signed MRA NECK WO, MRA HEAD WO HISTORY: Weakness, right-sided facial droop COMPARISON: Concurrent M RI of the brain TECHNIQUE: Axial 2D cervical, and axial 3D intracranial birz-vb-hcjprj MRA images were obtained without contrast. Maximum intensity pr ojection and coronal/sagittal reformatted images were created. If present, an y cervical carotid stenosis will be measured as a percentage relative to the n ative artery distal to the stenosis. Intracranial MRA source axial images and MIPS were reviewed on Web Ambassador system. FINDINGS: CERVICAL MRA: Motion and noise artifacts obscure some details. Right Carotid: No flow abnormalities. Left Carotid: No flow abnormalities. Right vertebral adriel ry: No flow abnormalities. Left vertebral artery: No flow abnormalities. INTRACRANIAL MRA: Carotid arteries: No flow abnormalities in the intra cranial internal carotid arteries. Normal A1 and M1 segments. Vertebrobas ilar Circulation: Right vertebral artery: No flow abnormalities. Left verte bral artery: No flow abnormalities. Basilar artery: No flow abnormalities. Posterior cerebral arteries: No flow abnormalities. Normal Variants: AC om: May be patent. PComs: Not visualized on the left. Persistent circula tion on the right. Vertebral arteries: Co-dominant. IMPRESSION: No cerv ical or intracranial MRA abnormalities. Signed by: Dr. Spencer Sanches M.D. on 07/14/2018 1:24 PM Dictated By: SPENCER SANCHES MD Electronically Si gned By: SPENCER SANCHES MD on 07/14/18 1324 Transcribed By: SCAR on 1324 COPY TO: ZAINA GORDON MD MRI BRAIN [id number] 13:07:00 [place] [address] Patient Name: DEO ESCUDERO MR #: [id number] : 1955 Age/Sex: 63/F Req #: [id number] Adm Physician: ZAINA GORDON MD Ordered by: HOLA MUNOZ M.D. Report #: [id number] Location: ICU Room/Bed: ICU [facility] Procedure: 0121-0 003 MRI/MRI BRAIN WO Exam Date: Exam Time: REPORT STATUS: Signed MRI BRAIN WO HISTORY: Weakness, right-sided facial droop COMPARISON: Head CT 07/13/2018 TECHNIQUE: Sagittal T2, axial T2, axial T1, axial T2/FLAIR, axial gradie nt echo (or susceptibility weighted), coronal T2/FLAIR, and axial diffusion we ighted MR images of the brain were obtained without contrast. Motion artifacts obscure some details. DISCUSSION: Scalp/bone marrow: Unremarkable. Brain sulci: Appropriate for patient's age. Ventricles: Normal in size and configuration. No hydrocephalus. Extra-axial spaces: No masses or fluid collec tions. Parenchyma: Scattered small areas of diffusion restriction (bright on DWI, dark on ADC) are seen in the right myles radiata and right striatoca psular region. No other diffusion restricting abnormalities are seen. Sca ttered T2/FLAIR hyperintense foci throughout the supratentorial white matter o n are likely chronic microvascular ischemic changes. There is an old small lef t thalamic lacunar infarct. Otherwise, no mass or hemorrhage. Vessels: No rmal flow voids in major arteries and veins. Sellar/Suprasellar region: No ab normalities. Craniocervical junction: No abnormalities. Incidental findings: Both ocular lenses are thinned. The adenoid tonsils are prominent. IMPRE SSION: 1. Few small acute lacunar infarcts in the right myles radiata and ri ght striatocapsular region. 2. Mild to moderate supratentorial/pontine tray delivery aide gilbert microvascular ischemic change. 3. 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 Signed by: Dr. Spencer Sanches M.D. on 07/14/2018 1:17 PM Dictated By: SPENCER SANCHES MD 131 Transcribed By: SCAR on 07/14/18 1317 COPY TO: HOLA ROSAS MD CT BRAIN [id number] 17:58:00 [place] [address] Patient Name: DEO ESCUDERO MR #: [id number] : 1955 Age/Sex: 63/F Req #: [id number] Adm Physician: ZAINA GORDON MD Ordered by: HOLA MUNOZ M.D. Report #: [id number] Location: ICU Room/Bed: ICU [facility] Procedure: 0120-0 005 CT/CT BRAIN WO Exam Date: Exam Time: REPORT STATUS: Signed Exam: Head CT witho ut contrast Indication: Stroke, 1 day following TPA Comparison: Head CT 07/12 Technique: Axial images were obtained from the skull base to the ve rtex. Coronal and sagittal images reconstructed from the axial data. Dose mo dulation, iterative reconstruction, and/or weight based adjustment of the mA/ kV was utilized to reduce the radiation dose to as low as reasonably achievab le. Intravenous contrast: None Findings: Scalp/skull: No abnor malities. Extra-axial spaces: No masses. No fluid collections. Bra in sulci: Mildly prominent. Ventricles: Mild compensatory dilatation. No hydro cephalus. Parenchyma: Scattered hypodensities in the supratentorial whit e matter are small vessel ischemic changes. No masses, hemorrhage, acute or ch ronic cortical vascular insults. Sellar/suprasellar region: No abnormalit ies. Craniocervical junction: Patent foramen magnum. No Chiari one malformati on. Incidental findings: Atherosclerotic calcifications in the carotid si phons . Impression: No acute abnormalities. No changes when germain red to head CT dated 07/12/2018. Stable findings: 1. Mild generalized vol ume loss. 2. Mild supratentorial white matter small vessel ischemic changes. 3. Lacunar vascular insult in the right putamen and bilateral thalami. A preliminary report was provided by Dr. Barron on 07/13/2018 6:04 PM. Signed by: DR Basim Ramirez M.D. on 07/13/2018 7:51 PM Dictated By: GUSTAVO VIRK MD 1 951 Transcribed By: SCAR on 07/13/181950 COPY TO: HOLA MUNOZ MD CHEST SINGLE (PORTABLE)2018-07-12 16:12:00 [place] [address] Patient Name: DEO ESUCDERO MR #: [id number] : 1955 Age/Sex: 63/F Req #: [id number] Adm Physician: Ordered by: EHSAN RIVERA DAIRY INSPECTOR Report #: [id number] Location: ER Room/Bed: Procedure: [id number] DX/ CHEST SINGLE (PORTABLE) Exam Date: 07/12/18 Exam Bobby e: 1555 REPORT STATUS: Signed A single frontal view of the chest. HISTORY: Left arm and leg a sleep COMP ARISON: None available. DISCUSSION: Portable technique, limits sen sitivity of the exam. Overlying monitoring leads. Tubes/Lines: None Harriet ngs and pleura: The lungs are well inflated. No evidence of a consolidat francois pneumonia or pulmonary alveolar edema. No definite pleural effusion or pne umothorax is identified. Heart and mediastinum: The cardiomediastinal s ilhouette appears unremarkable. Bones and soft tissues: Appear unremark able, given this limited exam. IMPRESSION: No acute radiographic abno rmality. Signed by: Dr. Naga Lynn D.O., M.M.M. on 07/12/2018 4:12 PM Dictated By: NAGA LYNN DO 11 Transcribed By: SCAR on 07/12/181611 COPY TO: EHSAN RIVERA DAIRY INSPECTOR CT BRAIN [id number] 15:25:00 [place] [address] Patient Name: DEO ESCUDERO MR #: [id number] : 1955 Age/Sex: 63/F Req #: [id number] Adm Physician: Ordered by: JANIE RIVER MD Report #: [id number] Location: Room/Bed: Procedure: [id number] CT/ CT BRAIN WO Exam Date: 07/12/18 Exam Time: 1450 REPORT STATUS: Signed History:Stroke protocol, numbness Comparison studies:None Technique: Axial images wer e obtained from the skull base to the vertex. Coronal and sagittal images taylor nstructed from the axial data. Intravenous contrast: None Dose modulation, i terative reconstruction, and/or weight based adjustment of the mA/kV was utili zed to reduce the radiation dose to as low as reasonably achievable. Find ings: Scalp/skull: No abnormalities. Extra-axial spaces: No mass es. No fluid collections. Brain sulci: Mildly prominent. Ventricles: Mil d compensatory dilatation. No hydrocephalus. Parenchyma: Small scatterd hypodensities in the supratentorial white matter are small vessel ischemic jamin nges. Small chronic lacunar infarcts at the right putamen and bilateral thalam i. No masses, hemorrhage, acute or chronic cortical vascular insults. Se llar/suprasellar region: No abnormalities. Craniocervical junction: Patent for amen magnum. No Chiari one malformation. Incidental findings: Atheroscle rotic calcifications in the carotid siphons . Impression: No acute abn ormalities. No hemorrhage. Chronic findings: 1. Mild generalized volume loss. 2. Mild supratentorial white matter small vessel ischemic changes. 3 . Small chronic lacunar infarcts at the right putamen and bilateral thalami Signed by: DR Basim Ramirez M.D. on 07/12/2018 3:29 PM Dictated By: BASIM VIRK MD 1529 COPY TO: FRED RIVER MD CHEM [id number] 00:50:0099MH [facility] NOGAB4385-00-49 00:50:000.9MH [facility] JIHMU5048-66-51 00:50:0013.0 [facility] PANEL 2014-03-06 00:50:0018MH [facility] HMZRG2242-71-81 00:50:0028MH [facility] QHPIC0027-66-33 00:50:0018MH [facility] PETGN3403-90-93 00:50:79567PT [facility] KLZHL1591-98-10 00:50:004.0MH [facility] OFGHX1428-11-54 00:50:04630IK [facility] RSWGV8393-06-27 00:50:000.6MH [facility] PANEL 2014-03-06 00:50:36095BM [facility] ERKOE3060-85-69 00:50:72517MU [facility] CHE[facility] JOOOX3569-02-56 00:50:0011MH [facility] GXTML3393-77-04 00:50:003.6MH [facility] FMBQO9703-32-99 00:50:008.0 [facility] OSBZC7266-92-37 00:50:009.1MH [facility] VLHIF3914-68-27 00:50:0025MH [facility] PANEL 2014-03-06 00:50:000.8MH [facility] XBURD9805-47-10 00:50:004.4 [facility] GQOYOAWGSO1887-19-93 00:50:0060.9 VrzxpwfheCLXZAYRSMH1119-90-02 00:50:001.1MH CxfhmhbfbGHWJQXQYMS1124-02-56 00:50:001.2MH AfxunvcobRRTPCGCBSL7399-94-46 00:50:004.4 UdrqyonlyYDAIFCXLAH7662-06-92 00:50:0032.4 [facility]MATOLOGY 2014-03-06 00:50:000.1MH ZejczxoqwQMAAUWQOQV7740-44-73 00:50:000.5 [facility] FFBVXITWLA4070-97-31 00:50:003.5 SxopeptapJUXCKBTVRU2693-42-39 00:50:006.5 AimtcodjoTYPXFRQUHC5095-48-48 00:50:000.1MH ZxrsvwfbyEZRIAPPRLI9738-34-06 00:50:0013.0MH AqiepmbsiTCKOQULEHG6330-82-04 00:50:0033.4[facility] 2014-[facility] 00:50:00* Test Item Value Reference Range Interpretation Comments MCH (test code = MCH) 28.3 pg 27.0-31.0 MbblwfmwjKIRRXIRPQQ4957-39-20 00:50:0084.7[facility] HospitalBorelvedyUKSCYUAUSB4196-08-10 00:50:008.7[facility] HospitalAlvhxkqqeKOIOHVXHSN9082-52-40 00:50:73335FTWesson [facility] HospitalHEMATOLOGY 2014-03-06 00:50:0010.7[facility] HospitalAnifsdvrdFIQBWFGNAC4141-97-17 00:50:0049.5[facility] ADHJDBXNNP3037-51-57 00:50:0016.5[facility] HospitalBtwiqkftxQUJUXGPERL2333-49-67 00:50:005.84 [facility] GLMAA1392-32-62 05:30:00Small *ABN*(03/05/14 12:30 AM) [facility] YLVQJ7466-27-40 05:30:00Negative (03/05/14 12:30 AM) [facility] YBKIW8730-27-10 05:30:00Marked *ABN*(03/05/14 12:30 AM) [facility] DOSPZ0189-37-94 05:30:001.032 [facility] STOOL 2014-03-05 05:30:00Yellow *NA*(03/05/14 12:30 AM) [facility] STOOL 2014-03-05 05:30:11965ZS [facility] AND QYZYM4595-57-13 05:30:0015 [facility] GKAOM5925-17-49 05:30:00Large *ABN*(03/05/14 12:30 AM) [facility] TEDCT1998-96-73 05:30:00Negative *NA*(03/05/14 12:30 AM) [facility] BNISK0558-80-88 05:30:005.0[facility] SMJKDVC3295-29-33 18:22:08776YLWesson Memorial HospitalBEDSIDE GLUCOSE FJCNXIS2793-66-06 17:03:94857UG SoutheastBEDSIDE GLUCOSE CVZTQGA2299-92-88 12:20:29413WEWesson Memorial Hospital BEDSIDE GLUCOSE EVVVDOR4913-72-63 03:03:84259RT SoutheastBEDSIDE GLUCOSE TESTING 2011-07-31 22:04:53223KD MlxrmxtacOCHIEVWXG5274-63-14 09:32:00<0.02MH [facility] MYDFVPSBQ4254-95-34 09:32:0035MH LbxmzxsijSEVULHDXB3476-21-34 04:01:0035MH IgqvhcqavOUMCJNVUH7835-82-75 04:01:00<0.02MH RlblwmuapAOYZJSVAS3281-90-86 21:00:00<1.1MH PomfiznteIWWBNVGGM2959-46-07 21:00:0045MH SoutheastCHEMISTRY 2011-07-27 21:00:00<0.5MH YnxdxkivfBAMMPNZVE0834-44-48 21:00:00<0.02MH [facility] BYZXVWZUS1846-56-33 21:00:37787WE HqeqjfjywOOSDTRBJR7833-47-00 21:00:0021MH RcryiaslzDEHKOHRPZ1145-38-12 21:00:01073IG OnhcvosluZGRCLDZLU5906-53-70 21:00:00 3.9MH DvqkbpdgkNPDMTRHGN8652-87-92 21:00:000.8MH RvtrndemsDBYPHIFTA9425-02-22 21:00:67425RS KxohvctebNWONXQXVY0606-37-64 21:00:0023MH SoutheastCHEMISTRY 2011-07-27 21:00:000.4MH OvsrumaggLVYTEWMXH8039-47-30 21:00:0099[facility] VPWQBTPWK6182-10-28 21:00:006MH CbtruyahuVFJRGIJUQ3799-83-35 21:00:0022MH AjgczlrrnUYKKPNQEB6150-96-80 21:00:008.0MH CbapqsbnxNVFDSDVLJ6360-60-14 21:00:00 3.8MH HfrmykedsTKPMLEMDD4510-90-45 21:00:008.9MH UqliwsvalHFKEKMOQJ3934-73-79 21:00:000.9MH TfvmqxplqOWINGLEJF5132-27-79 21:00:0029MH SoutheastCHEMISTRY 2011-07-27 21:00:004.2MH CnawqflpzFTTSDOILT3822-15-62 21:00:0014.9[facility] RPSYOPAVBS7803-45-32 21:00:0073.9MH VthdqhtikJWLALZOHWV1931-54-61 21:00:000.6MH JwypyvvnyIQZUSSFOMV6575-17-31 21:00:0020.8[facility]LuqlxqlzoUKGHCURKGU9446-65-69 21:00:007.5[facility] HospitalJxbbwvuwxXKSFRGVWZR3438-87-74 21:00:000.3[facility] HospitalHE[facility]OLOGY 2011-07-27 21:00:004.4[facility]ByyqhzwnxBPLVDFKKCA5758-17-85 21:00:002.1[facility] KPPMVAIEYI3786-92-31 21:00:000.0[facility] HospitalPdehusvpoAOUHAOWNUC3161-55-44 21:00:000.4[facility] HospitalXijriiwnxCYZOPFLDPP6262-55-43 21:00:000.1[facility] CenterShvykfrgbYODSVJEIVV3929-57-52 21:00:007.9[facility] HospitalCzaoktpaxGCNZOPBVWB1622-08-30 21:00:0035.4[facility] HospitalATOLOGY 2011-07-27 21:00:00* Test Item Value Reference Range Interpretation Comments MCH (test code = MCH) 29.2 pg 27.0-31.0 N [facility] HospitalJbxsgiggeAWEMHXGSMT6901-24-52 21:00:0013.2[facility] CenterXwnxbmlcwCILSLTKNEH7652-93-76 21:00:13584WVHahnemann HospitalJjwyogbnyKVERDZFGHX2503-91-47 21:00:004.86[facility] HospitalAT[facility] 2011-07-27 21:00:0040.0[facility] HospitalKtvihctrlOLKBTEKFSE5865-11-76 21:00:0082.4[facility] GXFJDFBVHC4724-80-82 21:00:0014.2[facility] CenterLdlmxepdtYQWWRQICYC0959-71-05 21:00:0010.2[facility] CenterJvwdowynvZARCFITGZI4871-26-28 21:00:000.95[facility] HospitalMzgfyjtdnGIUOGEJWVL6105-97-58 21:00:00* Test Item Value Reference Range Interpretation Comments PT (test code = PT) 12.7 s 12.0-14.7 N [facility] HospitalZfuoxjchvHHFFBTOXYD0645-36-26 21:00:00* Test Item Value Reference Range Interpretation Comments PTT (test code = PTT) 25.2 s 22.9-35.8 N [facility]
[2019-11-17] MEDS ORDERED: ONDANSETRON HCL INJ 2MG/ML 2ML 2 MG/ML VIAL IV STA (16:35)
[2019-11-17] MEDS ORDERED: MORPHINE SULFATE 2 MG/ML SYR 1ML IV STA (16:35)
--- NOTE | 2019-11-17 17:16 | Emergency Department Note ---
History of Present Illnes History of Present Illness Chief Complaint: Abdominal Complaints History of Present Illness This is a 64 year old female C/O BILAT LEGS HURTING AND ABD PAIN AND DIARRHEA. Historian: Patient, Family Member Arrival Mode: Car Ring Maker Required: No Onset (how long ago): day(s) Location: LEGS, ABDOMEN Quality: PAIN Radiation: non-radiation Severity: mild Onset quality: gradual Duration (how long): day(s) Timing of current episode: intermittent Progression: waxing and waning Chronicity: new Context: recent illness Relieving factors: none Exacerbating factors: none Associated symptoms: denies other symptoms Treatments prior to arrival: none, other (PCP PRESCRIBED LOMOTIL 5 DAYS AGO FOR DIARRHEA) Past Medical/Family History Physician Review I have reviewed the patient's past medical and family history. Any updates have been documented here. 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 Past Surgical History: Cholecysctectomy, Appendectomy, Hysterectomy Other Surgery: PEG TUBE PLACEMENT Social History Smoking Cessation: Never Smoker Counseling Performed: No Alcohol Use: None Any Illegal Drug Use: No TB Exposure/Symptoms: No Physically hurt or threatened: No Other Last Tetanus: UNK Any Pre-Existing Lines (PICC,: No Is patient up to date on immun: Yes Last Flu: utd Last Pneumovax: utd Review of Systems Review of Systems Constitutional: no symptoms EENTM: no symptoms Cardiovascular: no symptoms Respiratory: no symptoms Gastrointestinal: abdominal pain, diarrhea, nausea Genitourinary: no symptoms Musculoskeletal: other (PAIN IN BOTH LEGS) Neurological: no symptoms Psychological: no symptoms Endocrine: no symptoms Hematological/Lymphatic: no symptoms Review of other systems All other systems reviewed and negative. Physical Exam Related Data Allergies: Coded Allergies: diphenhydramine (Verified Allergy, Severe, RASH, 04/17/19) iodine (Verified Allergy, Severe, VOMITING, 04/17/19) IV IODINE ONLY tomato (Verified Allergy, Severe, RASH/VOMITING, 04/17/19) PT STATES TOMATO SAUCE vancomycin (Verified Allergy, Severe, RASH/TURNS RED, 04/17/19) Triage Vital Signs Vital Signs Date Time Temp Pulse Resp B/P (MAP) Pulse Ox O2 Delivery O2 Flow Rate FiO2 11/17/19 16:33 98.7 99 22 167/78 96 Vital signs reviewed: Yes Physical Exam CONSTITUTIONAL Constitutional: well-developed, well-nourished HENT HENT: normocephalic, atraumatic, oropharynx clear/moist, nose normal HENT L/R: left ext ear normal, right ext ear normal EYES Eyes: PERRL, conjunctivae normal NECK Neck: ROM normal PULMONARY Pulmonary: effort normal, breath sounds normal CARDIOVASCULAR Cardiovascular: regular rhythm, heart sounds normal, capillary refill normal, normal rate GASTROINTESTINAL Abdominal: soft, nontender, bowel sounds normal; tender, guarding, mass, rebound GENITOURINARY Genitourinary: exam deferred SKIN Skin: warm, dry MUSCULOSKELETAL Musculoskeletal: ROM normal NEUROLOGICAL Neurological: alert, no gross motor or sensory deficits PSYCHOLOGICAL Psychological: other (EMOTIONALLY LABILE (SON SAYS IT IS CHRONIC SINCE STROKE)) Results Laboratory Laboratory Laboratory Tests Test 11/17/19 16:00 White Blood Count 10.70 x10e3/uL (4.8-10.8) Red Blood Count 4.57 x10e6/uL (3.6-5.1) Hemoglobin 13.0 g/dL (12.0-16.0) Hematocrit 39.4 % (34.2-44.1) Mean Corpuscular Volume 86.2 fL (81-99) Mean Corpuscular Hemoglobin 28.4 pg (28-32) Mean Corpuscular Hemoglobin Concent 33.0 g/dL (31-35) Red Cell Distribution Width 14.4 % (11.7-14.4) Platelet Count 501 x10e3/uL (140-360) Neutrophils (%) (Auto) 63.6 % (38.7-80.0) Lymphocytes (%) (Auto) 27.8 % (18.0-39.1) Monocytes (%) (Auto) 4.5 % (4.4-11.3) Eosinophils (%) (Auto) 2.8 % (0.0-6.0) Basophils (%) (Auto) 0.9 % (0.0-1.0) Neutrophils # (Auto) 6.8 (2.1-6.9) Lymphocytes # (Auto) 3.0 (1.0-3.2) Monocytes # (Auto) 0.5 (0.2-0.8) Eosinophils # (Auto) 0.3 (0.0-0.4) Basophils # (Auto) 0.1 (0.0-0.1) Absolute Immature Granulocyte (auto 0.04 x10e3/uL (0-0.1) Prothrombin Time 12.1 seconds (11.9-14.5) Prothromb Time International Ratio 0.85 Activated Partial Thromboplast Time 29.2 seconds (23.8-35.5) Sodium Level 142 mmol/L (136-145) Potassium Level 3.7 mmol/L (3.5-5.1) Chloride Level 101 mmol/L (98-107) Carbon Dioxide Level 26 mmol/L (22-29) Anion Gap 18.7 mmol/L (8-16) Blood Urea Nitrogen 36 mg/dL (7-26) Creatinine 3.62 mg/dL (0.57-1.11) Estimat Glomerular Filtration Rate 13 ML/MIN (60-) BUN/Creatinine Ratio 10 (6-25) Glucose Level 114 mg/dL (74-118) Calcium Level 10.0 mg/dL (8.4-10.2) Magnesium Level 2.0 MG/DL (1.3-2.1) Total Bilirubin 0.5 mg/dL (0.2-1.2) Aspartate Amino Transf (AST/SGOT) 16 IU/L (5-34) Alanine Aminotransferase (ALT/SGPT) 11 IU/L (0-55) Alkaline Phosphatase 74 IU/L (40-150) Creatine Kinase 13 IU/L (29-168) Creatine Kinase MB 0.80 ng/mL (0-5.0) Troponin I 0.031 ng/mL (0-0.300) Total Protein 7.7 g/dL (6.5-8.1) Albumin 3.8 g/dL (3.5-5.0) Globulin 3.9 g/dL (2.3-3.5) Albumin/Globulin Ratio 1.0 (0.8-2.0) Lab results reviewed: Yes Imaging Imaging results reviewed: Yes Impressions Examination: Single AP view of the chest. COMPARISON: None. INDICATION: Abdominal pain DISCUSSION: Lines/tubes: Dialysis catheter with tip overlying the high right atrium. Lungs: The lungs are well inflated and clear. No pneumonia or pulmonary edema. Pleura: No pleural effusion or pneumothorax. Heart and mediastinum: The heart and the mediastinum are unremarkable. Bones and soft tissues: No acute bony abnormalities. IMPRESSION: 1. No acute cardiopulmonary abnormalities. Signed by: Dr. Brenden Moore M.D. on 11/17/2019 5:15 PM EXAMINATION: CT of the abdomen and pelvis without contrast. TECHNIQUE: Helical CT images of the abdomen and pelvis were performed from the lung bases to the lesser trochanters. No intravenous contrast was given, however positive enteric contrast.. Coronal and sagittal reformatted images were obtained. Dose modulation, iterative reconstruction, and/or weight based adjustment of the mA/kV was utilized to reduce the radiation dose to as low as reasonably achievable. COMPARISON: None. CLINICAL HISTORY:Abdominal pain, diarrhea DISCUSSION: ABSENCE OF INTRAVENOUS CONTRAST DECREASES SENSITIVITY FOR DETECTION OF FOCAL LESIONS AND VASCULAR PATHOLOGY. ABDOMEN/PELVIS: LOWER THORAX: Atelectasis in the lung bases. HEPATOBILIARY:No focal hepatic lesions. No ductal dilatation. Cholecystectomy clips. SPLEEN: No splenomegaly. PANCREAS: No focal masses or ductal dilatation. ADRENALS: No adrenal nodules. KIDNEYS/URETERS: Bilateral punctate renal calculi. PELVIC ORGANS/BLADDER: The bladder is normal. Hysterectomy. PERITONEUM/RETROPERITONEUM: No free air or fluid. LYMPH NODES: No intra-abdominal,retroperitoneal, pelvic or inguinal lymphadenopathy. VESSELS: Vascular calcifications. GI TRACT: No distention or wall thickening. Gastrostomy tube. The rectosigmoid colon is distended with stool. The appendix is absent. BONES AND SOFT TISSUES: No bony destructive lesions. No soft tissue abnormalities. IMPRESSION: Rectosigmoid distention with stool/possible impaction. Signed by: Dr. Brenden Moore M.D. on 11/17/2019 6:20 PM Diagnostics Tests Diagnostic test(s) reviewed: Yes Procedures 12 Lead ECG Interpretation Ring Maker: Interpreted by ED physician Date: November 17, 2019 Time: 16:24 Prior FIN[employer]CIAL OPERATIONS CONSULTANT tracings: reviewed Rhythm: sinus rhythm Rate: normal (97) QRS axis: normal ST segments normal: Yes T wave depression: II, III, aVF T waves flattening: I, aVL, V1, V2, V3 Clinical Impression: abnormal ECG Critical Care Time Subsequent provider I assumed direction of critical care for this patient from another provider of my specialty. Assessment & Plan Assessment & Plan Final Impression: (1) Constipation Assessment & Plan FLEETS ENEMAS PRN, MIRALAX DIRECTED, F/U PCP TOMORROW Depart Disposition: HOME, SELF-CARE Last Vital Signs Date Time Temp Pulse Resp B/P (MAP) Pulse Ox O2 Delivery O2 Flow Rate FiO2 11/17/19 17:02 77 16 98 11/17/19 16:33 98.7 Home Meds Reported Medications Atorvastatin Calcium (ATORVASTATIN CALCIUM) 80 Mg Tablet, 80 MG PEG HS 08/11/19 Clopidogrel Bisulfate (CLOPIDOGREL) 75 Mg Tablet, 75 MG PEG DAILY 08/11/19 Amlodipine Besylate (AMLODIPINE BESYLATE) 10 Mg Tablet, 10 MG PEG DAILY 08/11/19 Famotidine (FAMOTIDINE) 20 Mg Tab, 20 MG PEG Q48H 08/11/19 Aspirin (ASPIRIN) 81 Mg Tab.chew, 81 MG PEG DAILY 08/11/19 Lisinopril (PRINAVIL / ZESTRIL) 20 Mg Tablet, 20 MG PEG Q12H 08/11/19 Nifedipine (NIFEDIPINE) 20 Mg Capsule, 20 MG PEG DAILY 08/11/19 Clonidine (CLONIDINE) 1 Each Patch.tdwk, Q72H 08/11/19 Medications in the ED Morphine Sulfate 2 mg ONCE STAT IV Last administered on 11/17/19at 17:02; Admin Dose 2 MG; Start 11/17/19 at 16:35; Stop 11/17/19 at 16:42; Status DC Ondansetron HCl 4 mg ONCE STAT IV Last administered on 11/17/19at 17:02; Admin Dose 4 MG; Start 11/17/19 at 16:35; Stop 11/17/19 at 16:42; Status DC MEENAKSHI GANDHI MD November 17, 2019 17:16
--- NOTE | 2019-11-17 17:19 | Diagnostic Imaging Report ---
Examination: Single AP view of the chest. COMPARISON: None. INDICATION: Abdominal pain DISCUSSION: Lines/tubes: Dialysis catheter with tip overlying the high right atrium. Lungs: The lungs are well inflated and clear. No pneumonia or pulmonary edema. Pleura: No pleural effusion or pneumothorax. Heart and mediastinum: The heart and the mediastinum are unremarkable. Bones and soft tissues: No acute bony abnormalities. IMPRESSION: 1. No acute cardiopulmonary abnormalities. Signed by: Dr. Brenden Moore M.D. on 11/17/2019 5:15 PM
[2019-11-17 17:25] LABS: BASOPHILS # (AUTO) 0.1 (0.0-0.1); BASOPHILS % 0.9 % (0.0-1.0); EOSINOPHILS # (AUTO) 0.3 (0.0-0.4); EOSINOPHILS % 2.8 % (0.0-6.0); HEMATOCRIT 39.4 % (34.2-44.1); LYMPHOCYTES % 27.8 % (18.0-39.1); MEAN CORPUSCULAR HEMOGLOBIN 28.4 pg (28-32); MEAN CORPUSCULAR VOLUME 86.2 fL (81-99); MONOCYTES # (AUTO) 0.5 (0.2-0.8); MONOCYTES % 4.5 % (4.4-11.3); NEUTROPHILS # (AUTO) 6.8 (2.1-6.9); NEUTROPHILS % 63.6 % (38.7-80.0); PLATELET COUNT 501 x10e3/uL (140-360); RED BLOOD COUNT 4.57 x10e6/uL (3.6-5.1); RED CELL DISTRIBUTION WIDTH 14.4 % (11.7-14.4)
[2019-11-17 17:35] LABS: INR 0.85; PROTHROMBIN TIME 12.1 seconds (11.9-14.5)
[2019-11-17 17:36] LABS: PARTIAL THROMBOPLASTIN TIME 29.2 seconds (23.8-35.5)
[2019-11-17 17:45] LABS: ALBUMIN 3.8 g/dL (3.5-5.0); ANION GAP 18.7 mmol/L (8-16); CREATININE, SERUM 3.62 mg/dL (0.57-1.11); POTASSIUM 3.7 mmol/L (3.5-5.1)
[2019-11-17 17:52] LABS: CREATINE KINASE MB 0.8 ng/mL (0-5.0)
--- NOTE | 2019-11-17 18:23 | Diagnostic Imaging Report ---
EXAMINATION: CT of the abdomen and pelvis without contrast. TECHNIQUE: Helical CT images of the abdomen and pelvis were performed from the lung bases to the lesser trochanters. No intravenous contrast was given, however positive enteric contrast.. Coronal and sagittal reformatted images were obtained. Dose modulation, iterative reconstruction, and/or weight based adjustment of the mA/kV was utilized to reduce the radiation dose to as low as reasonably achievable. COMPARISON: None. CLINICAL HISTORY:Abdominal pain, diarrhea DISCUSSION: ABSENCE OF INTRAVENOUS CONTRAST DECREASES SENSITIVITY FOR DETECTION OF FOCAL LESIONS AND VASCULAR PATHOLOGY. ABDOMEN/PELVIS: LOWER THORAX: Atelectasis in the lung bases. HEPATOBILIARY:No focal hepatic lesions. No ductal dilatation. Cholecystectomy clips. SPLEEN: No splenomegaly. PANCREAS: No focal masses or ductal dilatation. ADRENALS: No adrenal nodules. KIDNEYS/URETERS: Bilateral punctate renal calculi. PELVIC ORGANS/BLADDER: The bladder is normal. Hysterectomy. PERITONEUM/RETROPERITONEUM: No free air or fluid. LYMPH NODES: No intra-abdominal,retroperitoneal, pelvic or inguinal lymphadenopathy. VESSELS: Vascular calcifications. GI TRACT: No distention or wall thickening. Gastrostomy tube. The rectosigmoid colon is distended with stool. The appendix is absent. BONES AND SOFT TISSUES: No bony destructive lesions. No soft tissue abnormalities. IMPRESSION: Rectosigmoid distention with stool/possible impaction. Signed by: Dr. Brenden Moore M.D. on 11/17/2019 6:20 PM
--- NOTE | 2019-11-17 19:40 | NUR ---
DR. GANDHI STATES TO D/C UA COLLECTION AT THIS TIME.
--- NOTE | 2019-11-17 20:50 | NUR ---
SON AT BEDSIDE STATES HE DOES NOT WANT PT TO HAVE ENEMA ON SITE, STATES WILL PURCHASE OTC AND GIVE AT HOME PER ED MD ORDERS AT THIS TIME.
[2019-11-17 21:04] VITALS: BP 138/65
== END 2019-11-17 21:00 | disposition home or self-care (01) ==
LOC: ER 16:05
DX: R10.9 Unspecified abdominal pain (principal); K59.00 Constipation, unspecified; I12.9 Hypertensive chronic kidney disease with stage 1 through stage 4 chronic kidney disease, or unspecified chronic kidney disease; E11.22 Type 2 diabetes mellitus with diabetic chronic kidney disease; N18.9 Chronic kidney disease, unspecified; Z99.2 Dependence on renal dialysis; E78.5 Hyperlipidemia, unspecified; I25.10 Atherosclerotic heart disease of native coronary artery without angina pectoris; Z86.73 Personal history of transient ischemic attack (TIA), and cerebral infarction without residual deficits
CPT/HCPCS: 36415; 71045; 74176; 80053; 82550; 82553; 83735; 84484; 85025; 85610; 85730; 99285; J2270; J2405

== ENCOUNTER 2020-01-05 13:00 | Emergency (ER) | payer MEDICARE, OTHER ==
[~2020-01-05] VITALS: Ht 157.5 cm; Wt 72.6 kg
[2020-01-05] MEDS ORDERED: ONDANSETRON HCL INJ 2MG/ML 2ML 2 MG/ML VIAL IV STA (13:33)
--- NOTE | 2020-01-05 14:00 | NUR ---
UNABLE TO OBTAIN IV ACCESS. USED BUTTERFLY TO OBTAIN BLOOD
[2020-01-05 14:21] LABS: BASOPHILS % 0.3 % (0.0-1.0); EOSINOPHILS % 0.7 % (0.0-6.0); HEMATOCRIT 37.9 % (34.2-44.1); HEMOGLOBIN 12.1 g/dL (12.0-16.0); LYMPHOCYTES # (AUTO) 0.8 (1.0-3.2); LYMPHOCYTES % 13.4 % (18.0-39.1); MEAN CORPUSCULAR HEMOGLOBIN 28.2 pg (28-32); MEAN CORPUSCULAR HGB CONC 31.9 g/dL (31-35); MEAN CORPUSCULAR VOLUME 88.3 fL (81-99); MONOCYTES # (AUTO) 0.4 (0.2-0.8); NEUTROPHILS # (AUTO) 4.4 (2.1-6.9); NEUTROPHILS % 77.4 % (38.7-80.0); PLATELET COUNT 278 x10e3/uL (140-360); RED BLOOD COUNT 4.29 x10e6/uL (3.6-5.1); RED CELL DISTRIBUTION WIDTH 14.1 % (11.7-14.4)
[2020-01-05 14:28] LABS: CLARITY,URINE SL CLOUDY (CLEAR); COLOR,URINE YELLOW (YELLOW); KETONES,URINE TRACE (NEGATIVE); LEUKOCYTE ESTERASE ,URINE TRACE (NEGATIVE); NITRITE,URINE NEGATIVE (NEGATIVE); PROTEIN,URINE DIPSTICK >=300 (NEGATIVE); URINE UROBILINOGEN 0.2 mg/dL (0.2 - 1)
[2020-01-05 14:29] LABS: BILIRUBIN,URINE NEGATIVE (NEGATIVE)
[2020-01-05 14:41] LABS: BACTERIA,URINE MANY /HPF; RBC,URINE 0-5 /HPF (0-5); WBC,URINE (MAN) 0-5 /HPF (0-5)
[2020-01-05 14:44] LABS: ALBUMIN 3.1 g/dL (3.5-5.0); ALBUMIN/GLOBULIN RATIO 0.8 (0.8-2.0); ANION GAP 19.2 mmol/L (8-16); CALCIUM 8.1 mg/dL (8.4-10.2); CREATININE, SERUM 3.66 mg/dL (0.57-1.11); MAGNESIUM 1.8 MG/DL (1.3-2.1); POTASSIUM 4.2 mmol/L (3.5-5.1)
[2020-01-05 14:52] LABS: CREATINE KINASE MB 0.7 ng/mL (0-5.0)
--- NOTE | 2020-01-05 15:04 | Diagnostic Imaging Report ---
Examination: CT head without contrast Clinical Indication: Weakness. Nausea and vomiting.. Technique: Transaxial noncontrast images from the skull base through the vertex were obtained. Sagittal and coronal reformatted images were done. Dose modulation, iterative reconstruction, and/or weight based adjustment of the mA/kV was utilized to reduce the radiation dose to as low as reasonably achievable. Comparison: Multiple head CTs with the most recent performed September 02, 2019. Findings: Motion artifact. Scalp: No abnormalities. Bones: Intact. No fractures. No blastic or lytic lesions. Brain sulci: Mild volume loss for patient's age. Ventricles: No hydrocephalus. Extra-axial space: No abnormalities. Parenchyma: Again demonstrated are patchy and confluent areas of low-attenuation within subcortical and periventricular white matter, nonspecific, but could represent microvascular ischemic disease. 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 Chronic lacunar infarcts in the right straighter capsular region, bilateral subinsular cortices, thalami and putamina. No masses, hemorrhage, or acute cortical based vascular insults. Suprasellar region: No abnormalities. Craniocervical junction: The foramen magnum is patent. No Chiari one malformation. Incidental findings: Atherosclerotic calcification of the cavernous and supraclinoid internal carotid arteries. Impression: 1. Despite limitation, no new or acute intracranial abnormality when compared to prior head CT performed September 02, 2019. 2. Unchanged chronic microvascular ischemic change. 3. Unchanged chronic lacunar and left middle cerebral artery territory infarcts. Signed by: Dr. Lexi Leung M.D. on 01/05/2020 3:01 PM
--- NOTE | 2020-01-05 15:23 | Emergency Department Note ---
History of Present Illnes History of Present Illness Chief Complaint: COVID PUI History of Present Illness This is a 64 year old female PER DAUGHTER, PATIENT WAS VOMITING DURING DIALYSIS, AND WOULD NOT ASSIST WITH TRANSFER 2ND TO INCREASED WEAKNESS. TESTED +COVID LAST WEDS AT [facility], GOT 4 HRS HD TODAY AT [facility] FOR COVID+ PATIENTS (LAST HD WAS LAST ) Historian: Family Member Arrival Mode: Car History limited by: condition of the patient (NO SPEECH SINCE LAST STROKE) Videotape Operator Required: No Onset (how long ago): day(s) (TODAY) Radiation: Reports non-radiation Severity: mild Onset quality: sudden Timing of current episode: intermittent Progression: waxing and waning Relieving factors: none Exacerbating factors: none Associated symptoms: Reports denies other symptoms Treatments prior to arrival: none Past Medical/Family History Physician Review I have reviewed the patient's past medical and family history. Any updates have been documented here. 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 Past Surgical History: Cholecysctectomy, Appendectomy, Hysterectomy Other Surgery: PEG TUBE PLACEMENT Social History Smoking Cessation: Never Smoker Counseling Performed: No Alcohol Use: None Any Illegal Drug Use: No Physically hurt or threatened: No Family History Family history of heart diseas: No Other Last Tetanus: UNK Any Pre-Existing Lines (PICC,: Yes (R-CHEST WALL DIALYSIS POR) Review of Systems ROS Narrative Unable to obtain ROS: Unable to obtain due to (NO SPEECH, ROS OBTAINED FROM DAUGHTER) Review of Systems Constitutional: Reports as per HPI EENTM: Reports no symptoms Cardiovascular: Reports no symptoms Respiratory: Reports no symptoms Gastrointestinal: Reports as per HPI, Reports nausea, Reports vomiting Genitourinary: Reports no symptoms Musculoskeletal: Reports no symptoms Integumentary: Reports no symptoms Neurological: Reports as per HPI, Reports weakness Psychological: Reports no symptoms Endocrine: Reports no symptoms Hematological/Lymphatic: Reports no symptoms Physical Exam Related Data Allergies: Coded Allergies: diphenhydramine (Verified Allergy, Severe, RASH, 04/17/19) iodine (Verified Allergy, Severe, VOMITING, 04/17/19) IV IODINE ONLY tomato (Verified Allergy, Severe, RASH/VOMITING, 04/17/19) PT STATES TOMATO SAUCE vancomycin (Verified Allergy, Severe, RASH/TURNS RED, 04/17/19) Triage Vital Signs Vital Signs Date Time Temp Pulse Resp B/P (MAP) Pulse Ox O2 Delivery O2 Flow Rate FiO2 01/05/20 13:29 98.0 85 18 134/60 99 Room Air Vital signs reviewed: Yes Physical Exam CONSTITUTIONAL Constitutional: Present well-developed, Present well-nourished HENT HENT: Present normocephalic, Present atraumatic, Present oropharynx clear/moist, Present nose normal HENT L/R: Present left ext ear normal, Present right ext ear normal EYES Eyes: Reports PERRL, Reports conjunctivae normal NECK Neck: Present ROM normal PULMONARY Pulmonary: Present effort normal, Present breath sounds normal CARDIOVASCULAR Cardiovascular: Present regular rhythm, Present heart sounds normal, Present capillary refill normal, Present normal rate GASTROINTESTINAL Abdominal: Present soft, Present nontender, Present bowel sounds normal GENITOURINARY Genitourinary: Present exam deferred SKIN Skin: Present warm, Present dry MUSCULOSKELETAL Musculoskeletal: Present ROM normal NEUROLOGICAL Neurological: Present alert, Present no gross motor or sensory deficits (VICKERS'S EQUALLY); Absent cranial nerve deficit, Absent weakness PSYCHOLOGICAL Psychological: Present mood/affect normal, Present judgement normal Results Laboratory Result Diagram: 01/05/20 1405 01/05/20 1405 Laboratory Laboratory Tests Test 01/05/20 14:05 White Blood Count 5.73 x10e3/uL (4.8-10.8) Red Blood Count 4.29 x10e6/uL (3.6-5.1) Hemoglobin 12.1 g/dL (12.0-16.0) Hematocrit 37.9 % (34.2-44.1) Mean Corpuscular Volume 88.3 fL (81-99) Mean Corpuscular Hemoglobin 28.2 pg (28-32) Mean Corpuscular Hemoglobin Concent 31.9 g/dL (31-35) Red Cell Distribution Width 14.1 % (11.7-14.4) Platelet Count 278 x10e3/uL (140-360) Neutrophils (%) (Auto) 77.4 % (38.7-80.0) Lymphocytes (%) (Auto) 13.4 % (18.0-39.1) Monocytes (%) (Auto) 7.0 % (4.4-11.3) Eosinophils (%) (Auto) 0.7 % (0.0-6.0) Basophils (%) (Auto) 0.3 % (0.0-1.0) Neutrophils # (Auto) 4.4 (2.1-6.9) Lymphocytes # (Auto) 0.8 (1.0-3.2) Monocytes # (Auto) 0.4 (0.2-0.8) Eosinophils # (Auto) 0.0 (0.0-0.4) Basophils # (Auto) 0.0 (0.0-0.1) Absolute Immature Granulocyte (auto 0.07 x10e3/uL (0-0.1) Urine Color Yellow (YELLOW) Urine Clarity Sl cloudy (CLEAR) Urine pH 6 (5 - 7) Urine Specific [place] 1.025 (1.010-1.025) Urine Protein >=300 (NEGATIVE) Urine Glucose (UA) Negative (NEGATIVE) Urine Ketones Trace (NEGATIVE) Urine Blood Trace (NEGATIVE) Urine Nitrite Negative (NEGATIVE) Urine Bilirubin Negative (NEGATIVE) Urine Urobilinogen 0.2 mg/dL (0.2 - 1) Urine Leukocyte Esterase Trace (NEGATIVE) Urine RBC 0-5 /HPF (0-5) Urine WBC 0-5 /HPF (0-5) Urine Epithelial Cells None /LPF (NONE) Urine Bacteria Many /HPF (NONE) Sodium Level 130 mmol/L (136-145) Potassium Level 4.2 mmol/L (3.5-5.1) Chloride Level 100 mmol/L (98-107) Carbon Dioxide Level 15 mmol/L (22-29) Anion Gap 19.2 mmol/L (8-16) Blood Urea Nitrogen 30 mg/dL (7-26) Creatinine 3.66 mg/dL (0.57-1.11) Estimat Glomerular Filtration Rate 12 ML/MIN (60-) BUN/Creatinine Ratio 8 (6-25) Glucose Level 84 mg/dL (74-118) Calcium Level 8.1 mg/dL (8.4-10.2) Magnesium Level 1.8 MG/DL (1.3-2.1) Total Bilirubin 0.3 mg/dL (0.2-1.2) Aspartate Amino Transf (AST/SGOT) 24 IU/L (5-34) Alanine Aminotransferase (ALT/SGPT) 11 IU/L (0-55) Alkaline Phosphatase 59 IU/L (40-150) Creatine Kinase 17 IU/L (29-168) Creatine Kinase MB 0.70 ng/mL (0-5.0) Troponin I 0.020 ng/mL (0-0.300) B-Type Natriuretic Peptide 45.9 pg/mL (0-100) Total Protein 7.0 g/dL (6.5-8.1) Albumin 3.1 g/dL (3.5-5.0) Globulin 3.9 g/dL (2.3-3.5) Albumin/Globulin Ratio 0.8 (0.8-2.0) Lab results reviewed: Yes Imaging Imaging results reviewed: Yes Impressions CT BRAIN WO Impression: 1. Despite limitation, no new or acute intracranial abnormality when compared to prior head CT performed September 02, 2019. 2. Unchanged chronic microvascular ischemic change. 3. Unchanged chronic lacunar and left middle cerebral artery territory infarcts. Signed by: Dr. Lexi Leung M.D. on 01/05/2020 3:01 PM Procedure: [id number] CT/CT CHEST WO AND CT ABDOMEN/PELVIS WO Exam Date: 01/05/20 Exam Time: 1430 EXAM: CT Chest, Abdomen and Pelvis WITHOUT intravenous contrast INDICATION: Pneumonia, weakness, nausea vomiting COMPARISON: CT abdomen and pelvis of 11/17/2019 TECHNIQUE: The chest, abdomen and pelvis were scanned utilizing a multidetector helical scanner from the thoracic inlet to the pubic symphysis without administration of IV contrast. Coronal and sagittal reformations were obtained. IV CONTRAST: None ORAL CONTRAST: Water COMPLICATIONS: None RADIATION DOSE: Total DLP: 2058 mGy*cm Dose modulation, iterative reconstruction, and/or weight based adjustment of the mA/kV was utilized to reduce the radiation dose to as low as reasonably achievable. FINDINGS: LINES/ TUBES: None. LUNGS AND AIRWAYS: The central airways are patent. Multifocal lower lobe predominant groundglass and consolidative opacities. PLEURA: The pleural spaces are clear. HEART AND MEDIASTINUM: The thyroid gland is normal. No supraclavicular, axillary lymphadenopathy. Prominent mediastinal lymph nodes borderline for size criteria for lymphadenopathy. No hilar lymphadenopathy. The heart is not enlarged. Small pericardial effusion. HEPATOBILIARY: No focal liver lesions. Status post cholecystectomy. SPLEEN: No splenomegaly. PANCREAS: No focal masses or ductal dilatation. ADRENALS: No adrenal nodules. KIDNEYS/URETERS: No hydronephrosis, stones, or solid mass lesions. PELVIC ORGANS/BLADDER: Status post hysterectomy. PERITONEUM / RETROPERITONEUM: No free air or fluid. LYMPH NODES: No lymphadenopathy. VESSELS: Atherosclerotic calcifications of the nonaneurysmal abdominal aorta and major branches. GI TRACT: Distended rectum with mild rectal wall thickening. Retained contrast material in the rectum and sigmoid colon. No other abnormal bowel wall thickening. No bowel obstruction. BONES AND SOFT TISSUES: No acute osseous injury. No suspicious lytic or blastic lesions. IMPRESSION: Multifocal pneumonia. Distended rectum filled with stool and mild rectal wall thickening can be seen in the setting of constipation and/or proctitis. Signed by: Jasmeet Negrete MD on 01/05/2020 3:26 PM Procedures 12 Lead ECG Interpretation ECG Interpretation : ECG: ECG 1 Videotape Operator: Interpreted by ED physician Date: Jan 05, 2020 Time: 13:31 Rhythm: sinus rhythm Rate: normal (82) QRS axis: normal ST segments normal: Yes T waves normal: Yes Clinical Impression: abnormal ECG (QT PROLONGED) Assessment & Plan Medical Decision Making MDM CBC, CHEM, CARDIACS, BNP, ECG, UA, CT BRAIN, CT ABD PELVIS AND INSTEAD OF EXPOSING OTHERS TO KNOWN COVID WILL ALSO GET CT CHEST INSTEAD OF CXR - R/O PNEUMONIA, ELECTROLYTE ABNL SUCH HYPERKALEMIA, UREMIA, BOWEL OBSTRUCTION, STEMI/NSTEMI, UTI Reassessment Reassessment O2 SAT 99% ON RA, LABS UNREMARKABLE DC HOME, ZOFRAN, AZITHROMYCIN, F/U PCP AND HD SCHEDULED, SELF-QUARANTINE, PRONING, RTED PRN SX'S WORSEN Assessment & Plan Final Impression: (1) Pneumonia due to COVID-19 virus Depart Disposition: HOME, SELF-CARE Last Vital Signs Date Time Temp Pulse Resp B/P (MAP) Pulse Ox O2 Delivery O2 Flow Rate FiO2 01/05/20 13:29 98.0 85 18 134/60 99 Room Air Home Meds Reported Medications Atorvastatin Calcium (ATORVASTATIN CALCIUM) 80 Mg Tablet, 80 MG PEG HS 08/11/19 Clopidogrel Bisulfate (CLOPIDOGREL) 75 Mg Tablet, 75 MG PEG DAILY 08/11/19 Amlodipine Besylate (AMLODIPINE BESYLATE) 10 Mg Tablet, 10 MG PEG DAILY 08/11/19 Famotidine (FAMOTIDINE) 20 Mg Tab, 20 MG PEG Q48H 08/11/19 Aspirin (ASPIRIN) 81 Mg Tab.chew, 81 MG PEG DAILY 08/11/19 Lisinopril (PRINAVIL / ZESTRIL) 20 Mg Tablet, 20 MG PEG Q12H 08/11/19 Nifedipine (NIFEDIPINE) 20 Mg Capsule, 20 MG PEG DAILY 08/11/19 Clonidine (CLONIDINE) 1 Each Patch.tdwk, Q72H 08/11/19 Medications in the ED Ondansetron HCl 4 mg ONCE STAT IV Last administered on 01/05/20at 14:37; Admin Dose 4 MG; Start 01/05/20 at 13:33; Stop 01/05/20 at 13:41; Status DC MEENAKSHI GANDHI MD Jan 05, 2020 15:23
--- NOTE | 2020-01-05 15:29 | Diagnostic Imaging Report ---
EXAM: CT Chest, Abdomen and Pelvis WITHOUT intravenous contrast INDICATION: Pneumonia, weakness, nausea vomiting COMPARISON: CT abdomen and pelvis of 11/17/2019 TECHNIQUE: The chest, abdomen and pelvis were scanned utilizing a multidetector helical scanner from the thoracic inlet to the pubic symphysis without administration of IV contrast. Coronal and sagittal reformations were obtained. IV CONTRAST: None ORAL CONTRAST: Water COMPLICATIONS: None RADIATION DOSE: Total DLP: 2058 mGy*cm Dose modulation, iterative reconstruction, and/or weight based adjustment of the mA/kV was utilized to reduce the radiation dose to as low as reasonably achievable. FINDINGS: LINES/ TUBES: None. LUNGS AND AIRWAYS: The central airways are patent. Multifocal lower lobe predominant groundglass and consolidative opacities. PLEURA: The pleural spaces are clear. HEART AND MEDIASTINUM: The thyroid gland is normal. No supraclavicular, axillary lymphadenopathy. Prominent mediastinal lymph nodes borderline for size criteria for lymphadenopathy. No hilar lymphadenopathy. The heart is not enlarged. Small pericardial effusion. HEPATOBILIARY: No focal liver lesions. Status post cholecystectomy. SPLEEN: No splenomegaly. PANCREAS: No focal masses or ductal dilatation. ADRENALS: No adrenal nodules. KIDNEYS/URETERS: No hydronephrosis, stones, or solid mass lesions. PELVIC ORGANS/BLADDER: Status post hysterectomy. PERITONEUM / RETROPERITONEUM: No free air or fluid. LYMPH NODES: No lymphadenopathy. VESSELS: Atherosclerotic calcifications of the nonaneurysmal abdominal aorta and major branches. GI TRACT: Distended rectum with mild rectal wall thickening. Retained contrast material in the rectum and sigmoid colon. No other abnormal bowel wall thickening. No bowel obstruction. BONES AND SOFT TISSUES: No acute osseous injury. No suspicious lytic or blastic lesions. IMPRESSION: Multifocal pneumonia. Distended rectum filled with stool and mild rectal wall thickening can be seen in the setting of constipation and/or proctitis. Signed by: Jasmeet Negrete MD on 01/05/2020 3:26 PM
[2020-01-05] MEDS ORDERED: MEROPENEM 500MG/ NS 50ML 50 ML IV ONE (15:30)
[2020-01-05 15:54] LABS: INR 0.86; PROTHROMBIN TIME 12.2 seconds (11.9-14.5)
[2020-01-05 15:55] LABS: PARTIAL THROMBOPLASTIN TIME 73.6 seconds (23.8-35.5)
--- NOTE | 2020-01-05 17:08 | NUR ---
DAUGHTER CALLED FOR [employer]
== END 2020-01-05 17:33 | disposition home or self-care (01) ==
LOC: ER 13:20
DX: U07.1 COVID-19 (principal); J18.9 Pneumonia, unspecified organism; R53.1 Weakness; R11.2 Nausea with vomiting, unspecified; R94.31 Abnormal electrocardiogram [ECG] [EKG]
CPT/HCPCS: 36415; 70450; 71250; 74176; 80053; 81001; 82550; 82553; 83735; 83880; 84484; 85025; 85610; 85730; 87086; 87635; 93005; 99284; J2405; U0002

== ENCOUNTER 2020-04-08 14:21 | Observation (INO) | payer MEDICARE, OTHER ==
[~2020-04-08] VITALS: Ht 157.5 cm; Wt 55.6 kg
[~2020-04-08 14:21] MED LIST changes: -AMLODIPINE BESY10 MG PEG; +AMLODIPINE BESY10 MG PO; -ASPIRIN81 MG PEG; +ASPIRIN81 MG PO; -ATORVASTATIN CA80 MG PEG; +ATORVASTATIN CA80 MG PO; -CLOPIDOGREL75 MG PEG; +CLOPIDOGREL75 MG PO
[2020-04-08 14:45] LABS: BASOPHILS # (AUTO) 0.1 (0.0-0.1); BASOPHILS % 1.4 % (0.0-1.0); EOSINOPHILS # (AUTO) 0.3 (0.0-0.4); EOSINOPHILS % 4.4 % (0.0-6.0); HEMATOCRIT 34.9 % (34.2-44.1); LYMPHOCYTES # (AUTO) 2.2 (1.0-3.2); LYMPHOCYTES % 31.8 % (18.0-39.1); MEAN CORPUSCULAR HEMOGLOBIN 27.2 pg (28-32); MEAN CORPUSCULAR HGB CONC 31.5 g/dL (31-35); MEAN CORPUSCULAR VOLUME 86.2 fL (81-99); MONOCYTES # (AUTO) 0.4 (0.2-0.8); MONOCYTES % 5.4 % (4.4-11.3); NEUTROPHILS % 56.7 % (38.7-80.0); PLATELET COUNT 313 x10e3/uL (140-360); RED BLOOD COUNT 4.05 x10e6/uL (3.6-5.1); RED CELL DISTRIBUTION WIDTH 15.5 % (11.7-14.4)
--- NOTE | 2020-04-08 14:45 | Emergency Department Note ---
History of Present Illnes History of Present Illness Chief Complaint: Neurological History of Present Illness This is a 65 year old female Chief Complaint Comment Patient in from home with complaints of AMS and weakness since this morning at 1000. Patient was last seen normal at 0900 today. Patient has a history of CVA 6 months ago with residual aphasia and left sided weakness. Patient is unable to provide subjective information and is unable to follow commands. Family member reports difficulty waking her up this morning. Historian: Family Member Arrival Mode: Car Sustainability Engineer Required: No Onset (how long ago): hour(s) (4) Location: Generalized Quality: confusion Radiation: Reports non-radiation Severity: mild Onset quality: sudden Duration (how long): hour(s) Timing of current episode: constant Progression: unchanged Chronicity: new Context: Denies recent illness, Denies recent surgery Relieving factors: none Exacerbating factors: none Associated symptoms: Reports denies other symptoms Treatments prior to arrival: none Past Medical/Family History Physician Review I have reviewed the patient's past medical and family history. Any updates have been documented here. 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 Past Surgical History: Cholecysctectomy, Appendectomy, Hysterectomy Other Surgery: PEG TUBE PLACEMENT Other Last Tetanus: UNK Review of Systems ROS Narrative Unable to obtain ROS: altered mental status Physical Exam Related Data Allergies: Coded Allergies: diphenhydramine (Verified Allergy, Severe, RASH, 04/17/19) iodine (Verified Allergy, Severe, VOMITING, 04/17/19) IV IODINE ONLY tomato (Verified Allergy, Severe, RASH/VOMITING, 04/17/19) PT STATES TOMATO SAUCE vancomycin (Verified Allergy, Severe, RASH/TURNS RED, 04/17/19) Triage Vital Signs Vital Signs Date Time Temp Pulse Resp B/P (MAP) Pulse Ox O2 Delivery O2 Flow Rate FiO2 04/08/20 14:32 97.6 61 17 160/73 100 Room Air Vital signs reviewed: Yes Physical Exam CONSTITUTIONAL Constitutional: Present well-developed, Present well-nourished HENT HENT: Present normocephalic, Present atraumatic, Present oropharynx clear/moist, Present nose normal HENT L/R: Present left ext ear normal, Present right ext ear normal EYES Eyes: Reports PERRL, Reports conjunctivae normal NECK Neck: Present ROM normal PULMONARY Pulmonary: Present effort normal, Present breath sounds normal CARDIOVASCULAR Cardiovascular: Present regular rhythm, Present heart sounds normal, Present capillary refill normal, Present normal rate GASTROINTESTINAL Abdominal: Present soft, Present nontender, Present bowel sounds normal GENITOURINARY Genitourinary: Present exam deferred SKIN Skin: Present warm, Present dry MUSCULOSKELETAL Musculoskeletal: Present ROM normal NEUROLOGICAL Neurological: Present alert, Present other (Altered, does not coperate with exam or answer questions); Absent no gross motor or sensory deficits (Weakness to L arm and leg (base line)) PSYCHOLOGICAL Results Laboratory Lab results reviewed: Yes Imaging Imaging results reviewed: Yes Diagnostics Tests Diagnostic test(s) reviewed: Yes Assessment & Plan Medical Decision Making [facility] 65 y.o f presents for AMS. UTI on work up. Rocephin started nad UC sent. Admit to Dr. Serrano. Do not suspect sepsis. Reassessment Reassessment time: 17:49 Reassessment Well appearing, NAD Assessment & Plan Final Impression: (1) UTI (urinary tract infection) Depart Disposition: ADMITTED Last Vital Signs Date Time Temp Pulse Resp B/P (MAP) Pulse Ox O2 Delivery O2 Flow Rate FiO2 04/08/20 14:32 97.6 61 17 160/73 100 Room Air Home Meds Reported Medications Atorvastatin Calcium (ATORVASTATIN CALCIUM) 80 Mg Tablet, 80 MG PEG HS 08/11/19 Clopidogrel Bisulfate (CLOPIDOGREL) 75 Mg Tablet, 75 MG PEG DAILY 20 Amlodipine Besylate (AMLODIPINE BESYLATE) 10 Mg Tablet, 10 MG PEG DAILY 20 Famotidine (FAMOTIDINE) 20 Mg Tab, 20 MG PEG Q48H 20 Aspirin (ASPIRIN) 81 Mg Tab.chew, 81 MG PEG DAILY 20 Lisinopril (PRINAVIL / ZESTRIL) 20 Mg Tablet, 20 MG PEG Q12H 20 Nifedipine (NIFEDIPINE) 20 Mg Capsule, 20 MG PEG DAILY 20 Clonidine (CLONIDINE) 1 Each Patch.tdwk, Q72H 08/11/19 BATSHEVA QURESHI MD Apr 08, 2020 14:45
[2020-04-08 15:08] LABS: INR 0.93; PROTHROMBIN TIME 12.9 seconds (11.9-14.5)
--- NOTE | 2020-04-08 15:10 | Diagnostic Imaging Report ---
EXAM: CHEST SINGLE (PORTABLE) DATE: 04/08/2020 2:40 PM INDICATION: Altered mental status COMPARISON: 11/17/2019 FINDINGS/IMPRESSION: Right IJ tunneled dialysis catheter identified in stable position. The trachea is midline. There is minimal left basilar opacity suggestive of atelectasis. There is no evidence for large focal consolidation, pneumothorax, or significant pleural effusion. The cardiomediastinal silhouette appears magnified by technique but otherwise unremarkable.. Atherosclerotic calcifications are noted within the thoracic aorta. No acute osseous abnormalities identified. Signed by: Dr. Popeye Navarro MD on 04/08/2020 3:07 PM
[2020-04-08 15:15] LABS: ALBUMIN 3.4 g/dL (3.5-5.0); ALBUMIN/GLOBULIN RATIO 1.1 (0.8-2.0); ANION GAP 16.5 mmol/L (8-16); CALCIUM 9.2 mg/dL (8.4-10.2); CREATININE, SERUM 3.82 mg/dL (0.57-1.11); POTASSIUM 3.5 mmol/L (3.5-5.1)
--- NOTE | 2020-04-08 15:33 | NUR ---
requested phlebotomy to draw lactic acid
--- NOTE | 2020-04-08 15:47 | Diagnostic Imaging Report ---
EXAMINATION: Head CT HISTORY: 65-year-old female with altered mental status, right hand numbness COMPARISON: Head CT 01/05/2020 TECHNIQUE: Helical axial images of the head were obtained. Reformatted coronal and sagittal images from the axial data. Dose modulation, iterative reconstruction, and/or weight based adjustment of the mA/kV was utilized to reduce the radiation dose to as low as reasonably achievable. FINDINGS: Parenchyma: Unchanged nonspecific moderate confluent chronic microvascular ischemic disease. 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 Chronic lacunar infarcts in the right striato-capsular region, bilateral subinsular cortices, thalami and putamina. No mass or hemorrhage. No CT evidence of acute territorial vascular insult. Extra-axial spaces:No abnormal density. No extra-axial fluid collections Brain volume: Normal for age. Ventricles: No hydrocephalus or displacement. Arteries: No density suggestive of thrombus. Dural sinuses: No abnormal density. Foramen magnum: No mass, Chiari malformation, or basilar invagination. Sella: No obvious mass. Paranasal/mastoid sinuses: Imaged portions unremarkable. Skull/Scalp: No lytic or blastic lesions. No fractures. IMPRESSION: 1. No acute intracranial hemorrhage or cortical infarcts. 2. Unchanged left temporoparietal/MCA chronic infarct compared to head CT of 01/05/2020. 3. Moderate chronic microvascular ischemic changes and small chronic lacunar infarcts are also unchanged. Signed by: Dr. Cheyanne Lorenz M.D. on 04/08/2020 3:43 PM
--- OUTSIDE RECORDS SUMMARY | 2020-04-08 16:58 | XMS REPORT | Clinical Summary ---
Author Author ROCK [facility] Address Unknown Phone Unavailable Care Team Providers Care Director Of Email Marketing Name Role Phone Pcp, No PCP Unavailable Allergies Comments Active Allergy Reactions Severity Noted Date unsure Iodine Other (See Low 01/28/2020 Comments) Peanut Swelling High 03/01/2020 Medications End Date Status Medication Sig Dispensed Refills Start Date Active amLODIPine (NORVASC) 5 MG Take 5 mg by 0 tablet mouth daily. Active pantoprazole (PROTONIX) Take 40 mg by 0 40 MG tablet mouth daily. Active aspirin 81 MG EC tablet Take 81 mg by 0 mouth daily. Active atorvastatin (LIPITOR) 80 Take 80 mg by 0 MG tablet mouth daily. Active QUEtiapine (SEROQUEL) 25 Take 25 mg by 0 MG tablet mouth nightly. Active clopidogreL (PLAVIX) 75 Take 75 mg by 0 mg tablet mouth daily. Active ergocalciferol (VITAMIN Take 50,000 0 D2) 1,250 mcg (50,000 Units by unit) capsule mouth once a week. 03/09/2020 traMADoL (ULTRAM) 50 mg Take 1 tablet 20 tablet 0 tablet (50 mg total) 0 by mouth every 6 (six) hours as needed for Pain for up to 5 days. Max Daily Amount: 200 mg Active Problems Not on file Encounters Care Team Description Date Type Specialty Darrell Shaw MD Fernandez, Neena Goins MD 03/04/2020 Anesthesia Event Wagner Holcomb MD CREATION,A-V FISTULA 03/04/2020 Surgery Wagner Holcomb MD 03/04/2020 Hospital Encounter 03/04/2020 Travel Wagner Holcomb MD 03/03/2020 Hospital Cardiology Encounter Wagner Holcomb MD Screening for viral disease 03/03/2020 Hospital Pre-Admission Testi ng Encounter 03/01/2020 Hospital Pre-Admission Testi ng Encounter Sanford Barney NP Screening for viral disease (Primary Dx) 03/01/2020 Orders Only Cardiology 03/01/2020 Travel after 04/08/2019 Social History Date Tobacco Use Types Packs/Day Years Used Former Smoker Smokeless Tobacco: Never Used Comments: occassional smoker for 4 years only Drinks/Week oz/Week Comments Alcohol Use No Alcohol Habits Answer Date Recorded How often do you have a drink containing alcohol? Never 03/01/2020 How many drinks containing alcohol do you have on No t asked a typical day when you are drinking? How often do you have six or more drinks on one Not asked occasion? Sex Assigned at Date Recorded Not on file Last Filed Vital Signs Reading Time Taken Comments Vital Sign 164/77 03/04/2020 4:45 PM CDT Blood Pressure 68 03/04/2020 4:45 PM CDT Pulse 36.4 C (97.6 F) 03/04/2020 3:45 PM CDT Temperature 14 03/04/2020 4:45 PM CDT Respiratory Rate 95% 03/04/2020 4:45 PM CDT Oxygen Saturation - - Inhaled Oxygen Concentration 51.7 kg (113 lb 14.4 oz) 03/04/2020 6:50 AM CDT Weight 157.5 cm (5' 2") 03/04/2020 6:47 AM CDT Height 20.83 03/04/2020 6:47 AM CDT Body Mass Index Plan of Treatment Health Maintenance Due Date Last Done Comments BREAST CANCER SCREENING 1955 COLON CANCER SCREENING 1955 COLONOSCOPY PNEUMOCOCCAL 65+ YRS (1 2018 of 1 - [id number]) Medicare IPPE (WELCOME TO 06/24/2019 MEDICARE) INFLUENZA VACCINE (#1) 2020 Procedures Comments Procedure Name Priority Date/Time Associated Diag nosis TRANSFUSION SERVICE 03/05/2020 REPORT - SCAN 6:04 PM CDT CREATION,A-V FISTULA 03/04/2020 End stage renal disease 1:46 PM CDT (HCC) Case Notes 90 MINS PER TERRI Special Needs (PATIENT IS A DIALYSIS PATIENT) POCT-POTASSIUM Routine 03/04/2020 1:02 PM CDT POCT-GLUCOSE METER Routine 03/04/2020 6:52 AM CDT POCT-POTASSIUM Routine 03/04/2020 6:49 AM CDT CBC W/PLT COUNT & AUTO STAT 03/04/2020 DIFFERENTIAL 6:43 AM CDT TYPE AND SCREEN, STAT 03/04/2020 AUTOMATED 6:43 AM CDT APTT STAT 03/04/2020 6:43 AM CDT PROTHROMBIN TIME/INR STAT 03/04/2020 6:43 AM CDT PHOSPHORUS STAT 03/04/2020 6:43 AM CDT MAGNESIUM STAT 03/04/2020 6:43 AM CDT CBC W/PLT COUNT & AUTO STAT 03/04/2020 DIFFERENTIAL 6:43 AM CDT BASIC METABOLIC PANEL (7) STAT 03/04/2020 6:43 AM CDT ECG 12-LEAD Routine 03/03/2020 2:59 PM CDT Procedure Note - Interface, External Ris In - 03/04/2020 4:31 PM CDT Ventricula r Rate 87 BPM Atrial Rate 87 BPM P-R Interval 194 ms QRS Duration 82 ms Q-T Interval 412 ms QTC Calculatio n(Bazett) 495 ms P Muse 62 degrees R Muse 45 degrees T Muse -5 degrees Normal sinus rhythm Normal ECG No previous ECGs available ECG 12-LEAD Routine 03/03/2020 2:59 PM CDT BASIC METABOLIC PANEL (7) Routine 03/03/2020 2:58 PM CDT HEMOGLOBIN Routine 03/03/2020 2:58 PM CDT SARS-COV2/RT-PCR ([facility] & Routine 03/03/2020 Estefany trujillo for viral REF LABS) 2:58 PM CDT disease after 04/08/2019 Results * TRANSFUSION SERVICE REPORT - SCAN (03/05/2020 6:04 PM CDT) Narrative Performed At This result has an attachment that is n ot available. * POC-Potassium (03/04/2020 1:02 PM CDT) Only the most recent of 2 results within the time period is included. [facility] POC-Potassium 3.2 (L)Comment: : TESTED AT 3.6 - 5.5 meq/L C [facility] [address] [place] [address] [id number]: Employee Counselor/Specialties Operator ID [facility] = [id number] for BAGUNDOL ARNOLD Specimen Blood Performing Organization Address [facility] one Number [address] 0 [phone] [place] [address] * POC-Glucose meter (03/04/2020 6:52 AM CDT) [facility] POC-Glucose 91Comment: : TESTED AT [facility] 70 - 110 mg/dL C [facility] Meter [address] [place] [address] [id number]: Employee Counselor/Specialties Operator ID [facility] = [id number] for ARNOLD MARTINEZ Specimen Blood Performing Organization Address [facility] one Number [address] 0 [phone] [address] * Type and screen, automated (03/04/2020 6:43 AM CDT) Pathologist [facility] ABO/RH O POSITIVE [facility]) [facility] Ab Scrn NEGATIVE [facility] Specimen Blood Performing Organization Address City/[facility] Ph one Number [address] [address] [phone] [facility] * CBC with platelet count + automated diff (03/04/2020 6:43 AM CDT) Pathologist [facility] WBC 10.3 3.5 - 10.5 K/L [facility] RBC 3.99 3.93 - 5.22 M/L [facility] Hemoglobin 11.0 (L) 11.2 - 15.7 GM/DL [facility] Hematocrit 34.8 34.1 - 44.9 % [facility] MCV 87.2 79.4 - 94.8 fL [facility] MCH 27.6 25.6 - 32.2 pg [facility] MCHC 31.6 (L) 32.2 - 35.5 GM/DL [facility] RDW 17.0 (H) 11.7 - 14.4 % [facility] Platelets 312 150 - 450 K/CU MM [facility] MPV 9.8 9.4 - 12.3 fL [facility] nRBC 0 0 - 0 /100 WBC [facility] % Neutros 73 % [facility] % Lymphs 17 % [facility] % Monos 5 % [facility] % Eos 4 % [facility] % Baso 1 % [facility] # Neutros 7.52 (H) 1.56 - 6.13 K/L [facility] # Lymphs 1.71 1.18 - 3.74 K/L [facility] # Monos 0.56 (H) 0.24 - 0.36 K/L [facility] # Eos 0.37 (H) 0.04 - 0.36 K/L [facility] # Baso 0.11 (H) 0.01 - 0.08 K/L [facility] Immature 1 0 - 1 % [facility] Specimen Blood Performing Organization Address City/State/Zipcode Ph one Number [facility] [address] [place], [place] [address] [facility] * aPTT (03/04/2020 6:43 AM CDT) PTT 31.4 22.5 - 36.0 seconds [facility] Specimen Blood Performing Organization Address [facility] Ph one Number [address] [facility] * Prothrombin time/INR (03/04/2020 6:43 AM CDT) Protime 12.9 11.9 - 14.2 seconds [facility] INR 1.00 <=5.90 [facility] Specimen Blood Narrative Performed At Effective 11/19/2018: PT Reference Range Change [facility] New: 11.9-14.2 Previous: 11.7-14.7 [facility] MEDICAL JOSE TER RECOMMENDED COUMADIN/WARFARIN INR THERA PY RANGES STANDARD DOSE: 2.0-3.0 Includes: PROP HYLAXIS for venous thrombosis, systemic embolization; TREATMENT for venous thro mbosis and/or pulmonary embolus. HIGH RISK: Target INR is 2.5-3.5 for pa tients wiht mechanical heart valves. Performing Organization Address [facility] one Number [address] [facility] * Phosphorus (03/04/2020 6:43 AM CDT) Phosphorus 2.4 2.3 - 4.7 mg/dL [facility] Specimen Blood Narrative Performed At Employee Counselor ID - [facility] Performing Organization Address City/[facility] Ph one Number [address] [facility] * Magnesium (03/04/2020 6:43 AM CDT) Magnesium 1.8 1.6 - 2.6 mg/dL [facility] Specimen Blood Narrative Performed At Employee Counselor ID - [facility] Performing Organization Address City/[facility] Ph one Number [facility] [address] [place], [place] [address] [facility] * Basic Metabolic Panel (03/04/2020 6:43 AM CDT) Only the most recent of 2 results within the time period is included. Sodium 136 136 - 145 meq/L [facility] Potassium 2.7 (L) 3.5 - 5.1 meq/L [facility] Chloride 100 98 - 107 meq/L [facility] CO2 28 22 - 29 meq/L [facility] BUN 17 7 - 21 mg/dL [facility] Creatinine 2.18 (H) 0.57 - 1.25 mg/dL [facility] Glucose 93 70 - 105 mg/dL [facility] Calcium 8.7 8.4 - 10.2 mg/dL [facility] EGFR 22Comment: ESTIMATED GFR IS mL/min/1.73 sq m [facility] NOT ACCURATE CREATININE [facility] CLEARANCE IN PREDICTING [facility] GLOMERULAR FILTRATION RATE. ESTIMATED GFR IS NOT APPLICABLE FOR DIALYSIS PATIENTS. Specimen Blood Narrative Performed At Employee Counselor ID - [facility] Performing Organization Address City/[facility] Ph one Rashida [address] [address] [facility] * ECG 12 lead (03/03/2020 2:59 PM CDT) Specimen Narrative Performed At Ventricular Rate 87 BPM GE MUSE Atrial Rate 87 BPM P-R Interval 194 ms QRS Duration 82 ms Q-T Interval 412 ms QTC Calculation(Bazett) 495 ms P Muse 62 degrees R Muse 45 degrees T Muse -5 degrees Normal sinus rhythm Normal ECG No previous ECGs available Confirmed by MD STEFANIA, EVITA Chappell ([id number]) on 03/05/2020 8:24:45 AM Procedure Note Interface, External Ris In - 03/05/2020 8:24 AM CDT Ventricular Rate 87 BPM Atrial Rate 87 BPM P-R Interval 194 ms QRS Duration 82 ms Q-T Interval 412 ms QTC Calculation(Bazett) 495 ms P Muse 62 degrees R Muse 45 degrees T Muse -5 degrees Normal sinus rhythm Normal ECG No previous ECGs available Confirmed by MD STEFANIA, EVITA Chappell ([id number]) on 03/05/2020 8:24:45 AM Performing Organization Address City/State/Zipcode Ph one Number GE MUSE * SARS-CoV2/RT-PCR ([facility]) (03/03/2020 2:58 PM CDT) SARS-COV2/RT-PC Negative Not Detected, [facility] R Negative, See [facility] external report for [facility] linked test SARS-COV-2 [facility] IRVIN [facility] PERFORMING LAB [facility] Specimen Other - Nasopharyngeal wall structure (body structure) Narrative Performed At Negative result for this test determine s that SARS-CoV-2 RNA was not present in [facility] the specimen above the Limit of Detecti on (LOD). However, Negative results do [facility] not preclude SARS-CoV-2 infection and s hould not be used as the sole basis for treatment or patient management decisio ns. Negative results must be combined with clinical observations, patient his tory, and epidemiological information. A false negative result may occur if a sp ecimen is improperly collected, transported or handled. A false negat francois result should be considered if patient's recent exposures or clinical presentation indicate that COVID-19 (SARS-CoV-2) is likely and diagnostic t ests for other causes of illness are negative. Re-testing should be consid ered in cases of suspected false negatives. The limit of detection for this assay i s 800 copies/mL. This SARS CoV-2 test is a real-time RT- PCR test intended for the qualitative detection of nucleic acid from SARS-CoV -2 in a nasopharyngeal swab specimen collected from individuals suspected of COVID-19 by their healthcare provider. This test has not been Food and Drug Ad ministration (FDA) cleared or approved. This is a modified version of an appr sneha Emergency Use Authorization (EUA) and is in the process of review by the FDA. Once authorized by the FDA, the issued EUA will be effective until the declaration that circumstances exist justifying the authorization of the bharati rgency use of in vitro diagnostic tests for detection and/or diagnosis of COVID -19 is terminated under Section 564(b)(2) of the Act or the EUA is revoked under Section 564(g) of the Act. Fact Sheet for Healthcare Providers: https://www.[employer]/sites/default/files/product/documents/Fact_Sheet_HC_Provi pync_Omin_EFJP-DwL-6.pdf Fact Sheet for Healthcare Patients: https://www.[employer]/sites/default/files/product/documents/Fact_Sheet_Patients _Tvvc_HHVC-PsN-5.pdf Performing Laboratory: [address] [place] [address] Performing Organization Address City/[facility] Ph one Number [address] [facility] * Hemoglobin (03/03/2020 2:58 PM CDT) Hemoglobin 11.5 11.2 - 15.7 GM/DL [facility] Specimen Blood - Entire left upper arm (body structure) Narrative Performed At Employee Counselor ID - [id number] [facility] Performing Organization Address City/[facility] Ph one Number [address] [facility] after 04/08/2019 Insurance Type Payer Benefit Subscriber ID Effective Phone Address Plan / Dates Group Medicaid Contracted MEDICAID - MEDICAID MGD [facility] [id number] 20-P CARE COMM STAR resent PLAN [facility] [id number] 2019-P MEDICARE MGD CARE MEDICARE resent HMO CDC REVIEW CDC REVIEW [id number] 2020- [address] [place] [place] [address] [address] [facility] (Home) [place] [id number] Advance Directives For more information, please contact: [phone] Patient Regional Operations Director Explanation Type Date Recorded [email or web address] Power of Vice Chancellor 03/04/2020 12:00 AM
--- OUTSIDE RECORDS SUMMARY | 2020-04-08 16:59 | XMS REPORT | Continuity of Care Document ---
Author Author Stevo Clipsource Awilda Lopez [facility] Address Unknown Phone Unavailable Care Team Providers Care [employer] Name Role Phone [employer] Information Exchange Unavailable Un available Problems Problem Status Onset Date Classification Date Reported Comments Source MAMMO --- BONE DENSITY Active 09/25/2018 [facility] M25.512 Active 09/22/2018 [facility] Discharge Diagnosis: Abdominal pain 03/06/2014 03/08/2014 [facility] Discharge Diagnosis: Acute lower urinary tract infection 03/06/2014 03/08/2014 [facility] ABD PAIN Active 03/05/2014 [facility] 719.4 - PAIN IN JOINT Active 07/24/2013 [facility] [place] SORE THROAT Active 04/01/2013 [facility] CHEST PAIN Active 07/27/2011 [facility] HTN - Hypertension Active 01/22/2001 Problem 08/03/2011 [facility] Cerebrovascular disease (disorder) Active Problem [facility] Finding of body mass index (finding) Active Problem [facility] Hypertensive disorder, systemic arterial (disorder) Active Problem 07/12/2019 [facility] [place] Left hemiparesis (disorder) Ac tive Problem [facility] Mixed hyperlipidemia (disorder) Active Problem Medical [...] [facility] Chest pain Active Problem 04/04/2013 [facility] DM - Diabetes mellitus Active Problem 04/04/2013 [facility] Chest pain (finding) Active Problem 03/08/2014 ASHLEY Degroot Guerline mendez Diabetes mellitus (disorder) A ctive Problem ASHLEY Degroot Guerline mendez Hyperlipidemia (disorder) Acti ve Problem ASHLEY Degroot, [facility] HTN - Hypertension Active Problem 04/04/2013 [facility] Hyperlipidemia Active Problem 04/04/2013 [facility] CHEST PAIN NOS Active [facility] Medications Medication Details Route Status Patient Instructions Ordering Provider Order Date Source Metoprolol Tartrate 25 mg oral tablet = 0.5 tab, PO, BID, # 90 tab, Pharmacy: [facility] #[id number] Active 05/25/2019 [facility] Furosemide 20 MG Oral Tablet = 1 tab, PO, Daily, # 90 tab, STOP LISINOPRIL HCTZ, Pharmacy: [facility] #[id number] Active 04/08/2019 [facility] atorvastatin 80 mg oral tablet 80 mg = 1 tab, PO, Bedtime, # 90 tab, 1 Refill(s), Pharmacy: [facility] #[id number] Active 01/29/2019 [facility] amLODIPine 5 mg oral tablet = 1 tab, PO, BID, # 180 tab, Refill(s) 1, Pharmacy: [facility] #[id number] Active 01/28/2019 [facility] amLODIPine 5 mg oral tablet 5 mg = 1 tab, PO, BID, # 60 tab, 1 Refill(s), Pharmacy: [facility] #[id number] Inactive 01/28/2019 [facility] NIFEdipine 30 mg oral tablet, extended release 30 mg = 1 tab, PO, Daily, # 90 tab, 1 Refill(s), Pharmacy: [facility] #[id number] No Longer Active 01/28/2019 [facility] pantoprazole 40 mg oral enteric coated tablet See Instructions, 1 tab PO a day only 2 times a week, # 90 tab, 0 Refill(s), called to pharmacy Active 01/21/2019 [facility] Ergocalciferol 56880 UNT Oral Capsule 50,000 IntlUnit = 1 cap, PO, qWeek, # 12 cap, 2 Refill(s), [id number] Active 01/19/2019 [facility] Alendronic acid 70 MG Oral Tablet 70 mg = 1 tab, PO, Q7D, with 6 to 8 ounces plain water, at least 30 minutes before first food, beverage, or medication of the day, # 12 tab, 3 Refill(s), [id number] No Longer Active 01/19/2019 [facility] atorvastatin 80 mg oral tablet 80 mg = 1 tab, PO, Daily, # 90 tab, 1 Refill(s), [email or web address][id number] Active 01/19/2019 [facility] lisinopril 30 mg oral tablet 3 0 mg = 1 tab, PO, Daily, # 90 tab, 1 Refill(s), [facility][id number], stop lisinopril hctz Active 01/19/2019 [facility] Furosemide 20 MG Oral Tablet 2 0 mg = 1 tab, PO, Daily, # 90 tab, 0 Refill(s), [id number], stop lisinopril hctz Active 01/19/2019 [facility] atorvastatin 80 mg oral tablet 80 mg = 1 tab, PO, Daily, # 90 tab, 3 Refill(s) Inactive 01/19/2019 [facility] Ergocalciferol 09356 UNT Oral Capsule 50,000 IntlUnit = 1 cap, PO, qWeek, # 12 cap, 2 Refill(s), [id number] Active 10/21/2018 [facility] citalopram 10 mg oral tablet 1 0 mg = 1 tab, PO, Daily, # 30 tab, 1 Refill(s), [email or web address] [id number] Active 10/20/2018 [facility] Alendronic acid 70 [...] DM eval date 10/20/18, 3 Refill(s), Pharmacy: [facility] [id number] Active 10/20/2018 [facility] atorvastatin 40 mg oral tablet 40 mg = 1 tab, PO, Bedtime, # 90 tab, 1 Refill(s), Pharmacy: [facility] [id number] Active 10/20/2018 [facility] Hydrochlorothiazide 12.5 MG / Lisinopril 20 MG Oral Tablet 1 tab, PO, Daily, # 90 tab, 1 Refill(s), Pharmacy: [facility] [id number], stop losartan hctz and amlodipine. Active 10/20/2018 [facility] atorvastatin 40 mg oral tablet 40 mg = 1 tab, PO, Bedtime, # 90 tab, 1 Refill(s), Pharmacy: [facility] [id number] Active 10/09/2018 [facility] Trazodone Hydrochloride 50 MG Oral Tablet 50 mg = 1 tab, PO, Bedtime, after meals for insomnia, # 30 tab, 1 Refill(s), Pharmacy: [facility] [id number] Active 09/19/2018 [facility] gabapentin 300 MG Oral Capsule 300 mg = 1 cap, PO, BID, # 60 cap, 1 Refill(s), Pharmacy: [facility] [id number] Active 09/19/2018 [facility] metoprolol tartrate 25 mg oral tablet 12.5 mg = 0.5 tab, PO, BID, 0 Refill(s) Active 09/19/2018 [facility] Hydrochlorothiazide 12.5 MG / Losartan P otassium 50 MG Oral Tablet 1 tab, PO, Daily, # 90 tab, 0 Refill(s) Active 09/19/2018 [facility] amLODIPine 10 mg oral tablet 1 [...] SUB-Q, Bedtime, 0 Refill(s) Active 09/19/2018 [facility] atorvastatin 40 mg oral tablet 40 mg = 1 tab, PO, Bedtime, # 90 tab, 1 Refill(s) Active 09/19/2018 [facility] Acetaminophen 325 MG / Hydrocodone Desirae trate 5 MG Oral Tablet 1 tab, PO, Q4H, for pain, # 12 tab, 0 Refill(s) Active 03/06/2014 [facility] ciprofloxacin 500 mg oral tablet 500 mg = 1 tab, PO, Q12H, # 20 tab, 0 Refill(s) Active 03/06/2014 [facility] Zofran 4 mg, Route: IVP, Drug form: INJ, ONCE, Dosing Weight 78.636, kg, Priority: STAT, Start date: 03/05/14 22:16:00, Stop date: 03/05/14 22:16:00 Inactive 03/06/2014 [facility] Morphine 4 mg, Route: IVP, Reyes g form: INJ, ONCE, Dosing Weight 78.636, kg, Priority: STAT, Start date: 03/05/14 22:15:00, Stop date: 03/05/14 22:15:00 Inactive 03/06/2014 [facility] lisinopril 10 mg oral tablet 1 0 mg, 1 tab, PO, Daily, 30 tab, Substitution Allowed, TAB Active Sam dan 04/01/2013 [facility] metFORmin 500 mg oral tablet 5 00 mg, 1 tab, PO, BID, 30 tab, Substitution Allowed Active Luis Carlos 04/01/2013 [facility] Insulin regular 8 unit, Route: SUB-Q, ONCE, Dosing Weight 79.091, kg, Start date: 04/01/13 12:23:00, Stop date: 04/01/13 12:23:00 Inactive Luis Carlos 02/2013 [facility] dexamethasone 10 mg, Route: IM , ONCE, Dosing Weight 79.091, kg, Priority: STAT, Start date: 04/01/13 11:36:00, Stop date: 04/01/13 11:36:00 Inactive Luis Carlos 02/2013 [facility] ketorolac 60 mg, Route: IM, Dr ug form: INJ, ONCE, Dosing Weight 79.091, kg, Priority: STAT, Start date: 04/01/13 11:35:00, Stop date: 04/01/13 11:35:00 Inactive [place] 04/01/2013 [facility] Bicillin L-A 1,200,000 unit, 2 mL, Route: IM, Drug form: INJ, ONCE, Dosing Weight 79.091, kg, Start date: 04/01/13 11:35:00, Stop date: 04/01/13 11:35:00(penicillin G benzathine 1.2 MilUnit/2 ml INJ) (Same as: Bi cillin L-A, Permapen) NOT For Daily Use Inactive [facility] 04/01/2013 [facility] acetaminophen 500 mg, 1 tab, R oute: PO, Drug form: TAB, Q6H, PRN Pain, Start date: 07/31/11 19:22:00, Duration: 30 day, Stop date: 08/30/11 19:21:00 PO No Longer Active Newton 08/01/2011 [facility] Metoprolol Succinate ER 25 mg oral table t, extended release 25 mg, 1 tab, Route: PO, Drug form: ERTA B, Daily, Start date: 07/30/11 9:00:00, Duration: 30 day, Stop date: 08/28/11 9:00:00 PO No Longer Active [place] 07/30/2011 [facility] aspirin 325 mg tablet, enteric coated 325 mg, 1 tab, Route: PO, Drug form: ECTAB, Daily, Start date: 07/30/11 9:00:00, Duration: 30 day, Stop date: 08/28/11 9:00:00 PO No Longer Active [place] 07/30/2011 [facility] Saline Flush 0.9% 5 ml, Route: IVP, Drug Form: INJ, Q12H, Start date: 07/29/11 21:00:00, Duration: 30 day, Stop date: 08/28/11 9:00:00 IVP No Longer Active [place] 07/30/2011 [facility] simvastatin 20 mg, 1 tab, Rout e: PO, Drug form: TAB, Bedtime, Start date: 07/29/11 21:00:00, Duration: 30 day, Stop date: 08/27/11 21:00:00 PO No Longer Active [place] 07/30/2011 [facility] Dextrose 50% in Water IV 50 mL , Route: IVP, PRN, Blood Glucose Results, Start date: 07/29/11 17:36:00, Duration: 30 day, Stop date: 08/28/11 17:35:00 IVP No Longer Active [place] 07/29/2011 [facility] Dextrose 50% in Water IV 25 mL , Route: IVP, PRN, Blood Glucose Results, Start date: 07/29/11 17:35:00, Duration: 30 day, Stop date: 08/28/11 17:34:00 IVP No Longer Active [place] 07/29/2011 [facility] metFORmin 500 mg oral tablet 5 00 mg, 1 tab, Route: PO, Drug form: TAB, BID-Meals, Start date: 07/29/11 17:00:00, Duration: 30 day, Stop date: 08/28/11 8:00:00 PO No Longer Active [place] 07/29/2011 [facility] insulin aspart 4 unit, 0.04 mL , Route: SUB-Q, Drug form: SOLN, TID-Before Meals, PRN Blood Glucose Results, Start date: 07/29/11 16:33:00, Duration: 30 day, Stop date: 08/28/11 16:32:00 SUB-Q No Longer Active [place] 07/29/2011 [facility] Saline Flush 0.9% 5 ml, Route: IVP, Drug Form: INJ, PRN, PRN Line Flush, Start date: 07/29/11 16:33:00, Duration: 30 day, Stop date: 08/28/11 16:32:00 IVP No Longer Active [place] 07/29/2011 [facility] nitroglycerin SL Tab 0.4 mg, 1 tab, Route: SL, Drug form: TAB, Q5Min, PRN Chest Pain, Start date: 07/29/11 16:33:00, Duration: 3 doses or times, Stop date: Limited # of times SL No Longer Active Newton 07/29/2011 [facility] insulin aspart 2 unit, 0.02 mL , Route: SUB-Q, Drug form: SOLN, TID-Before Meals, PRN Blood Glucose Results, Start date: 07/29/11 16:32:00, Duration: 30 day, Stop date: 08/28/11 16:31:00 SUB-Q No Longer Active [place] 07/29/2011 [facility] glucagon 1 mg, Route: IM, Drug form: PDR/INJ, PRN, PRN Blood Glucose Results, Start date: 07/29/11 16:32:00, Duration: 30 day, Stop date: 08/28/11 16:31:00 IM No Longer Active Newton 07/29/2011 [facility] atropine 0.5 mg, 5 mL, Route: IVP, Drug form: INJ, PRN, PRN Bradycardia, Start date: 07/29/11 16:32:00, Duration: 30 day, Stop date: 08/28/11 16:31:00 IVP No Longer Active [place] 07/29/2011 [facility] Tylenol 650 mg, 2 tab, Route: PO, Drug form: TAB, Q6H, PRN Pain, Start date: 07/29/11 16:32:00, Duration: 30 day, Stop date: 08/28/11 16:31:00 PO No Longer Active [place] 07/29/2011 [facility] Dextrose 50% Syringe 12.5 gm, Route: IVP, Drug Form: INJ, PRN, PRN Blood Glucose Results, Start date: 07/29/11 16:32:00, Duration: 30 day, Stop date: 08/28/11 16:31:00 IVP No Longer Active [place] 07/29/2011 [facility] Dextrose 50% Syringe 25 gm, Ro [place]: IVP, Drug Form: INJ, PRN, PRN Blood Glucose Results, Start date: 07/29/11 16:31:00, Duration: 30 day, Stop date: 08/28/11 16:30:00 IVP No Longer Active [place] 07/29/2011 [facility] Metoprolol Succinate ER 25 mg oral table t, extended release 25 mg, 1 tab, Route: PO, Drug form: ERTA B, Daily, Start date: 07/29/11 9:00:00, Duration: 30 day, Stop date: 08/27/11 9:00:00 PO No Longer Active Frederick 07/29/2011 [facility] simvastatin 20 mg, 1 tab, Rout e: PO, Drug form: TAB, Bedtime, Start date: 07/28/11 21:00:00, Duration: 30 day, Stop date: 08/26/11 21:00:00 PO No Longer Active Frederick 07/29/2011 [facility] metFORmin 500 mg oral tablet 5 00 mg, 1 tab, Route: PO, Drug form: TAB, BID-Meals, Start date: 07/28/11 17:00:00, Duration: 30 day, Stop date: 08/27/11 8:00:00 PO No Longer Active Frederick 07/28/2011 [facility] Tylenol 650 mg, 2 tab, Route: PO, Drug form: TAB, Q6H, PRN Pain, Start date: 07/28/11 4:25:00, Duration: 30 day, Stop date: 08/27/11 4:24:00 PO No Longer Active Frederick 07/28/2011 [facility] Saline Flush 0.9% 5 ml, Route: IVP, Drug Form: INJ, Q12H, Start date: 07/27/11 21:00:00, Duration: 30 day, Stop date: 08/26/11 9:00:00 IVP No Longer Active [place] 07/28/2011 [facility] atropine 0.5 mg, 5 mL, Route: IVP, Drug form: INJ, PRN, PRN Bradycardia, Start date: 07/27/11 19:19:00, Duration: 30 day, Stop date: 08/26/11 19:18:00 IVP No Longer Active [place] 07/28/2011 [facility] aspirin 325 mg tablet, enteric coated 325 mg, 1 tab, Route: PO, Drug form: ECTAB, Q24H, Start date: 07/27/11 19:00:00, Duration: 30 day, Stop date: 08/25/11 19:00:00 PO No Longer Active [place] 07/28/2011 [facility] Saline Flush 0.9% 5 ml, Route: IVP, Drug Form: INJ, PRN, PRN Line Flush, Start date: 07/27/11 18:25:00, Duration: 30 day, Stop date: 08/26/11 18:24:00 IVP No Longer Active [place] 07/28/2011 [facility] nitroglycerin SL Tab 0.4 mg, 1 tab, Route: SL, Drug form: TAB, Q5Min, PRN Chest Pain, Start date: 07/27/11 18:25:00, Duration: 3 doses or times, Stop date: Limited # of times SL No Longer Active [place] 07/28/2011 [facility] Dextrose 50% Syringe 12.5 gm, 25 mL, Route: IVP, Drug Form: INJ, PRN, PRN Blood Glucose Results, Start date: 07/27/11 18:24:00, Duration: 30 day, Stop date: 08/26/11 18:23:00 IVP No Longer Active [place] 07/28/2011 [facility] glucagon 1 mg, Route: IM, Drug form: PDR/INJ, PRN, PRN Blood Glucose Results, Start date: 07/27/11 18:24:00, Duration: 30 day, Stop date: 08/26/11 18:23:00 IM No Longer Active [place] 07/28/2011 [facility] insulin aspart 2 unit, 0.02 mL , Route: SUB-Q, Drug form: SOLN, TID-Before Meals, PRN Blood Glucose Results, Start date: 07/27/11 18:24:00, Duration: 30 day, Stop date: 08/26/11 18:23:00 SUB-Q No Longer Active [place] 07/28/2011 [facility] Tylenol 1,000 mg, Route: PO, D rug form: TAB, ONCE, PRN Pain, Priority: STAT, Start date: 07/27/11 17:44:00, Stop date: 08/26/11 17:43:00 PO No Longer Active Santi 07/27/2011 [facility] metFORmin 500 mg oral tablet 5 00 mg, 1 tab, PO, BID- Meals, Substitution Allowed PO Active Frederick 07/27/2011 [facility] hydrochlorothiazide-lisinopril 12.5 mg-1 0 mg oral tablet 1 tab, PO, Daily, Substitution Allowed, Maintenance PO Active 07/27/2011 [facility] simvastatin 20 mg, PO, Bedtime , Substitution Allowed PO Active Frederick 07/27/2011 [facility] Vitamin D 50,000 intl units oral capsule 50,000 IntlUnit, 1 cap, PO, QFri, Substitution Allowed PO Active 07/27/2011 [facility] ibuprofen 400 mg oral tablet 4 00 mg, 1 tab, PO, TID, PRN, as needed for headache, Substitution Allowed PO Active 07/27/2011 [facility] Saline Flush 0.9% 5 ml, Route: IVP, Drug Form: INJ, PRN, PRN Line Flush, Start date: 07/27/11 14:54:00, Duration: 24 hr, Stop date: 07/28/11 14:53:00 IVP No Longer Active [place] 07/27/2011 [facility] aspirin 325 mg tablet 325 mg, Route: PO, Drug form: TAB, ONCE, Priority: STAT, Start date: 07/27/11 14:54:00, Stop date: 07/27/11 14:54:00 PO No Longer Active Santi 07/27/2011 [facility] Allergies, Adverse Reactions, Alerts Substance Category Reaction [...] should be multiplied by the estimated BMI. [facility] CHEM PANEL Bili Total 0.9 0.2 - 1.3 03/06/2014 [facility] CHEM PANEL AGAP 13.0 10.0 - 20.0 03/06/2014 [facility] CHEM PANEL B/C Ratio 18 6 - 25 03/06/2014 [facility] CHEM PANEL ALT 28 0 - 65 03/06/2014 [facility] CHEM PANEL AST 18 0 - 37 03/06/2014 [facility] CHEM PANEL Alk Phos 152 39 - 136 03/06/2014 [facility] CHEM PANEL Potassium Lvl 4.0 3.5 - 5.1 03/06/2014 [facility]M PANEL Chloride Lvl 100 95 - 109 03/06/2014 [facility]M PANEL Creatinine Lvl 0.6 0.5 - 1.4 03/06/2014 [facility] CHEM PANEL Sodium Lvl 134 135 - 145 03/06/2014 [facility]M PANEL Glucose Lvl 306 70 - 99 03/06/2014 <sup>2</sup>Interpretive Data: Adult ref erence range values reflect the clinical guidelines
of the [place] [employer]. [facility] CHEM PANEL BUN 11 7 - 22 03/06/2014 [facility] CHEM PANEL Albumin Lvl 3.6 3.5 - 5.0 03/06/2014 [facility] CHEM PANEL Total Protein 8.0 6.4 - 8.4 03/06/2014 [facility] CHEM PANEL Calcium Lvl 9.1 8.5 - 10.5 03/06/2014 [facility]M PANEL CO2 25 24 - 32 03/06/2014 [facility] CHEM PANEL A/G Ratio 0.8 0.7 - 1.6 03/06/2014 [facility] CHEM PANEL Globulin 4.4 2.0 - 4.0 03/06/2014 [facility] HEMATOLOGY Segs 60.9 45.0 - 75.0 03/06/2014 [facility] HEMATOLOGY Basophils 1.1 0.0 - 1.0 03/06/2014 [facility] HEMATOLOGY Eosinophils 1.2 0.0 - 4.0 03/06/2014 [facility] HEMATOLOGY Monocytes 4.4 2.0 - 12.0 03/06/2014 [facility] HEMATOLOGY Lymphocytes 32.4 20.0 - 40.0 03/06/2014 [facility] HEMATOLOGY Eosinophils # 0.1 0.0 - 0.5 03/06/2014 [facility] HEMATOLOGY Monocytes # 0.5 0.0 - 0.8 03/06/2014 [facility] HEMATOLOGY Lymphocytes # 3.5 1.0 - 5.5 03/06/2014 [facility] HEMATOLOGY Segs-Bands # 6.5 1.5 - 8.1 03/06/2014 [facility] HEMATOLOGY Basophils # 0.1 0.0 - 0.2 03/06/2014 [facility] HEMATOLOGY RDW 13.0 11.5 - 14.5 03/06/2014 [facility] HEMATOLOGY MCHC 33.4 32.0 - 36.0 03/06/2014 [facility] HEMATOLOGY MCH 28.3 27.0 - 31.0 03/06/2014 [facility] HEMATOLOGY MCV 84.7 80.0 - 98.0 03/06/2014 [facility] HEMATOLOGY MPV 8.7 7.4 - 10.4 03/06/2014 [facility] HEMATOLOGY Platelet 366 133 - 450 03/06/2014 [facility] HEMATOLOGY WBC 10.7 3.7 - 10.4 03/06/2014 [facility] HEMATOLOGY Hct 49.5 36.0 - 48.0 03/06/2014 [facility] HEMATOLOGY Hgb 16.5 12.0 - 16.0 03/06/2014 [facility] HEMATOLOGY RBC 5.84 4.20 - 5.40 03/06/2014 [facility] URINE AND STOOL UA Urobilinogen <=1.0 mg/dL 0.1 - 1.0 03/05/2014 [facility] URINE AND STOOL UA Blood Small *ABN* (03/05/14 12:30 AM) Negative 03/05/2014 [facility] URINE AND STOOL UA Nitrite Negative (03/05/14 12:30 AM) Negative 03/05/2014 [facility] URINE AND STOOL UA Turbidity Marked *ABN* (03/05/14 12:30 AM) Clear 03/05/2014 [facility] URINE AND STOOL UA Spec Grav 1.032 <=1.030 03/05/2014 [facility] URINE AND STOOL UA Color Yellow *NA* (03/05/14 12:30 AM) Yellow 03/05/2014 [facility] URINE AND STOOL UA Sq Epi Many /LPF Few /LPF 03/05/2014 [facility] URINE AND STOOL UA WBC 128 0 - 5 03/05/2014 [facility] URINE AND STOOL UA RBC 15 0 - 2 03/05/2014 [facility] URINE AND STOOL UA Leuk Est Large *ABN* (03/05/14 12:30 AM) Negative 03/05/2014 [facility] URINE AND STOOL UA Bili Negative *NA* (03/05/14 12:30 AM) Negative 03/05/2014 [facility] URINE AND STOOL UA pH 5.0 5.0 - 8.0 03/05/2014 [facility] URINE AND STOOL UA Protein 30 mg/dL Negative mg/dL 03/05/2014 [facility] URINE AND STOOL UA Glucose 500 mg/dL Negative mg/dL 03/05/2014 [facility] URINE AND STOOL UA Ketones 20 mg/dL Negative mg/dL 03/05/2014 [facility] BEDSIDE GLUCOSE TESTING Glucose POC 340 70 - 99 04/01/2013 [facility] <sup>1</sup>Interpretive Data: Upper Reportable Limit: 200 mg/dL. [facility] BEDSIDE GLUCOSE TESTING Glucose POC 356 70 - 99 04/01/2013 [facility] <sup>2</sup>Interpretive Data: Upper Reportable Limit: 200 mg/dL. [facility] BEDSIDE GLUCOSE TESTING Gluc POC Lif scn 162 65 - 110 08/01/2011 [facility] <sup>1</sup>Interpretive Data: Upper Reportable Limit: 200 mg/dL. [facility] BEDSIDE GLUCOSE TESTING Gluc POC Lif scn 226 65 - 110 08/01/2011 [facility] <sup>2</sup>Interpretive Data: Upper Reportable Limit: 200 mg/dL. [facility] BEDSIDE GLUCOSE TESTING Gluc POC Lif scn 144 65 - 110 07/31/2011 [facility] <sup>3</sup>Interpretive Data: Upper Reportable Limit: 200 mg/dL. [facility] BEDSIDE GLUCOSE TESTING Comment1 Notify RN/MD 07/31/2011 NA [facility] BEDSIDE GLUCOSE TESTING Comment1 Notify RN/MD 07/31/2011 NA [facility] BEDSIDE GLUCOSE TESTING Comment1 Notify RN/MD 07/30/2011 NA [facility] CHEMISTRY Troponin-I <0.02 0.00 - 0.40 07/28/2011 Normal [facility] CHEMISTRY Total CK 35 12 - 191 07/28/2011 Normal [facility] CHEMISTRY Total CK 35 12 - 191 07/28/2011 Normal [facility] CHEMISTRY Troponin-I <0.02 0.00 - 0.40 07/28/2011 Normal [facility] CHEMISTRY CK MB Index <1.1 0.0 - 2.5 07/27/2011 Normal [facility] CHEMISTRY Total CK 45 12 - 191 07/27/2011 Normal [facility] CHEMISTRY CK MB <0.5 0.5 - 3.6 07/27/2011 Normal [facility] CHEMISTRY Troponin-I <0.02 0.00 - 0.40 07/27/2011 Normal [facility] CHEMISTRY Chloride Lvl 103 95 - 109 07/27/2011 Normal [facility] CHEMISTRY CO2 21 24 - 32 07/27/2011 LOW [facility] CHEMISTRY Sodium Lvl 135 135 - 145 07/27/2011 Normal [facility] CHEMISTRY Potassium Lvl 3.9 3.5 - 5.1 07/27/2011 Normal [facility] CHEMISTRY Creatinine Lvl 0.8 0.5 - 1.4 07/27/2011 Normal [facility] CHEMISTRY Glucose Lvl 352 07/27/2011 NA <sup>4</sup>Interpretive Data: Reference Ranges : 0 - 7 days : 41 - 90 mg/dL 7 days - 150 yrs : 70 - 99 mg/dL (fasting), based on the clinical recommendations of the [place] [employer]. [facility] CHEMISTRY BUN 23 7 - 22 07/27/2011 HI [facility] CHEMISTRY Bili Total 0.4 0.2 - 1.3 07/27/2011 Normal [facility] CHEMISTRY Alk Phos 99 39 - 136 07/27/2011 Normal [facility] CHEMISTRY AST 6 0 - 37 07/27/2011 Normal [facility] CHEMISTRY ALT 22 0 - 65 07/27/2011 Normal [facility] CHEMISTRY Total Protein 8.0 6.4 - 8.4 07/27/2011 Normal [facility] CHEMISTRY Albumin Lvl 3.8 3.5 - 5.0 07/27/2011 Normal [facility] CHEMISTRY Calcium Lvl 8.9 8.5 - 10.5 07/27/2011 Normal [facility] CHEMISTRY A/G Ratio 0.9 0.7 - 1.6 07/27/2011 Normal [facility] CHEMISTRY B/C Ratio 29 6 - 25 07/27/2011 [facility] CHEMISTRY Globulin 4.2 2.0 - 4.0 07/27/2011 [facility] CHEMISTRY AGAP 14.9 10.0 - 20.0 07/27/2011 Normal [facility] HEMATOLOGY Segs 73.9 45.0 - 75.0 07/27/2011 Normal [facility] HEMATOLOGY Eosinophils 0.6 0.0 - 4.0 07/27/2011 Normal [facility] HEMATOLOGY Lymphocytes 20.8 20.0 - 40.0 07/27/2011 Normal [facility] HEMATOLOGY Segs-Bands # 7.5 1.5 - 8.1 07/27/2011 Normal [facility] HEMATOLOGY Basophils 0.3 0.0 - 1.0 07/27/2011 Normal [facility] HEMATOLOGY Monocytes 4.4 2.0 - 12.0 07/27/2011 Normal [facility] HEMATOLOGY Lymphocytes # 2.1 1.0 - 5.5 07/27/2011 Normal [facility] HEMATOLOGY Basophils # 0.0 0.0 - 0.2 07/27/2011 Normal [facility] HEMATOLOGY Monocytes # 0.4 0.0 - 0.8 07/27/2011 Normal [facility] Eosinophils # 0.1 0.0 - 0.5 07/27/2011 Normal [facility] MPV 7.9 7.4 - 10.4 07/27/2011 Normal [facility] MCHC 35.4 32.0 - 36.0 07/27/2011 Normal [facility] MCH 29.2 27.0 - 31.0 07/27/2011 Normal [facility] RDW 13.2 11.5 - 14.5 07/27/2011 Normal [facility] Platelet 360 133 - 450 07/27/2011 Normal [facility] RBC 4.86 4.20 - 5.40 07/27/2011 Normal [facility] Hct 40.0 36.0 - 48.0 07/27/2011 Normal [facility] MCV 82.4 81.0 - 99.0 07/27/2011 Normal [facility] Hgb 14.2 12.0 - 16.0 07/27/2011 Normal [facility] WBC 10.2 3.7 - 10.4 07/27/2011 Normal [facility] INR 0.95 0.85 - 1.17 07/27/2011 Normal <sup>5</sup>Interpretive Data: RECOMMEND ED RANGES FOR PROTIME INR: 2.0-3.0 for most medical and surgical thromboembolic states. 2.5-3.5 for artificial heart valves and recurrent embolism. INR SHOULD BE USED ONLY FOR PATIENTS ON STABLE ANTICOAGULANT THERAPY. [facility] PT 12.7 12.0 - 14.7 07/27/2011 Normal [facility] PTT 25.2 22.9 - 35.8 07/27/2011 Normal <sup>6</sup>Interpretive Data: Heparin T herapeutic Range: 57 - 92 Seconds [facility] Pathology Reports No Data Provided for This Section Diagnostic Reports Report Value Date Source Breast Mammo Scrn KIMBERLY incl CAD MA BILATERAL DIGITAL SCREENING MAMMOGRAM WITH CAD: 10/15/2018 CLINICAL: /Routine. Current study was evaluated with a Computer Aided Detection (CAD) system. COMPARISON:Comparison is made to exam dated: 10/02/2011 mammogram - [facility]. TECHNIQUE: Mammographic views were obtained using digital acquisition. [employer] Version 1.3 was utilized for computer aided [...] is recommended.(10/16/2019) This exam was interpreted at [id number] for [facility] Breast [place]. Fran johnson/sonia:10/15/2018 15:19:21 Legislative Analyst(s): Kimberly Davis [facility] letter sent: BI-RADS 1/2 Mammogram BI-RADS: 2 Benign 10/15/2018 [facility] Bone Density Scan Study: Bone Density Scan Clinical Indication: Osteoporosis screening; Images of the axial lumbar spine and left hip have been performed using [employer] Discovery SL scanner. COMPARISON: None FINDINGS: The [...] standard deviations below peak bone mass. SL: [id number] 10/15/2018 [facility] Shoulder series DX Left should er 3 views DX, 09/22/2018 12:37 CDT HISTORY: - left shoulder pain COMPARISON: None FINDINGS: No evidence for acute fracture. Humeral head is intact and located. Acromioclavicular joint is also intact mild degenerative changes. Soft tissues unremarkable. IMPRESSION: No acute osseous abnormality SL: [id number] 09/22/2018 [facility] Abdomen/Pelvis wo IV contrast CT CT [...] cholecystectomy, append ectomy and hysterectomy. SL: 03/05/2014 [facility] Brain wo contrast CT CT head w [...] Dedicated MRI brain if indicated. SL: 03/05/2014 [facility] Ribs bilateral Exam: Bilateral rib x-ray series Reason for Exam: Pain status post fall Comparison Exam: None Discussion: No acute bony abnormalities are seen within the right or left rib cage. No evidence seen for pneumothorax or pulmonary contusion. No suspicious osteoblastic or osteolytic lesions. Impression: 1. No acute bony abnormalities are seen within the right or left rib cage. 07/24/2013 ASH[facility] Degroot Knee AP and lateral Exam: Rig ht knee x-ray, 2 views Reason for exam: Pain status post fall Comparison exam: None Discussion: No fractures or dislocations are seen within the right knee. The joint spaces are preserved. No suspicious intraosseous lesions. No radiopaque foreign bodies. Impression: 1. No acute bony abnormalities seen wit hin the right kidney. 07/24/2013 [facility] [place] Consultation Notes No Data Provided for This [...] 03/06/2014 [facility] Systolic (mm Hg) 134 03/06/2014 [facility] Heart Rate 75 03/06/2014 [facility] Respitory Rate 16 03/06/2014 [facility] Height 160.02 cm 03/05/2014 [facility] BMI Calculated 30.71 03/05/2014 [facility] Weight 78.636 03/05/2014 [facility] Temperature Oral (F) 98.3 F 03/05/2014 [facility] Heart Rate 74 03/05/2014 [facility] Systolic (mm Hg) 143 03/05/2014 [facility] Respitory Rate 16 03/05/2014 [facility] Diastolic (mm Hg) 81 03/05/2014 [facility] Heart Rate 86 04/01/2013 [facility] Systolic (mm Hg) 136 04/01/2013 [facility] Diastolic (mm Hg) 84 04/01/2013 [facility] Respitory Rate 16 04/01/2013 [facility] Respitory Rate 16 04/01/2013 [facility] Diastolic (mm Hg) 68 04/01/2013 [facility] Heart Rate 90 04/01/2013 [facility] Systolic (mm Hg) 142 04/01/2013 [facility] Weight 79.091 04/01/2013 [facility] Height 160.02 cm 04/01/2013 [facility] Respitory Rate 18 04/01/2013 [facility] Heart Rate 90 04/01/2013 [facility] Systolic (mm Hg) 132 04/01/2013 [facility] Diastolic (mm Hg) 85 04/01/2013 [facility] Temperature Oral (F) 98.2 F 04/01/2013 [facility] Heart Rate 69 08/01/2011 [facility] Temperature Oral (F) 98.2 F 08/01/2011 [facility] Respitory Rate 18 08/01/2011 [facility] Systolic (mm Hg) 122 08/01/2011 [facility] Diastolic (mm Hg) 69 08/01/2011 [facility] Diastolic (mm Hg) 71 08/01/2011 [facility] Heart Rate 71 08/01/2011 [facility] Systolic (mm Hg) 109 08/01/2011 [facility] Respitory Rate 20 08/01/2011 [facility] Temperature Oral (F) 97.4 F 08/01/2011 [facility] Diastolic (mm Hg) 56 08/01/2011 [facility] Respitory Rate 18 08/01/2011 [facility] Systolic (mm Hg) 92 08/01/2011 [facility] Heart Rate 70 08/01/2011 [facility] Temperature Oral (F) 98.2 F 08/01/2011 [facility] Weight 81.364 07/28/2011 [facility] Height 157.48 cm 07/28/2011 [facility] Weight 81.364 07/27/2011 [facility] Height 157.48 cm 07/27/2011 [facility] Encounters Location Location Details Encounter Type Encounter Number Reason For Visit Attending Provider ADM Date DC Date Status Source [facility] Inpatient [id number] CHEST PAIN CASTILLOJazzy GOMEZ 07/27/2011 08/01/2011 Active [facility] Emergency [id number] ZACHARY YEUNG 04/01/2013 04/01/2013 Discharged [facility] OD [id number] 719.4 - PAIN IN JOINT MILLIE LYONS 07/24/2013 07/24/2013 Active ASHLEY Degroot [facility] [id number] 02 Susi Stanford 03/05/2014 03/06/2014 [facility] Outpatient [id number] Ciara Cardoso 09/19/2018 Active [facility] Primary [facility] Outpatient [id number] Ciara Cardoso 09/19/2018 09/20/2018 [facility] Outpatient [id number] Ciara Cardoso 09/22/2018 09/23/2018 [facility] Outpatient [id number] Dasha Canchola 10/09/2018 Active [facility] Primary Care [facility] Outpatient [id number] Ciara Cardoso 10/09/2018 10/10/2018 Medical [facility] Outpatient [id number] Ciara Osunaero 10/15/2018 10/16/2018 [facility] Outpatient [id number] Ciara Cardoso 10/20/2018 Active [facility] Outpatient [id number] Ciara Cardoso 10/20/2018 Active [facility] Primary [facility] Outpatient [id number] Ciara Osunaero 10/20/2018 10/21/2018 [facility] Primary [facility] Ambulatory Pre-Reg [id number] Ciara Cardoso 10/20/2018 10/20/2018 [facility] Out[facility] [id number] Zhchiao Renetta 11/28/2018 Active [facility] Ambulatory Pre-Reg [id number] Zhchiao Renetta 11/28/2018 11/28/2018 Medical [facility] Outpatient [id number] Ciara Cardoso 01/19/2019 Active [facility] Outpatient [id number] Ciara Cardoso 01/19/2019 01/20/2019 [facility] Phone Message [id number] 01/27/2019 01/29/2019 [facility] Internal Medicine [facility] Phone Message [id number] 04/07/2019 04/09/2019 [facility] Outpatient [id number] Ciara Cardoso 04/21/2019 Active [facility] Internal Medicine [facility] Phone Message [id number] 05/25/2019 05/27/2019 [facility] Internal [facility] Phone Message [id number] 07/08/2019 07/10/2019 [facility] Procedures Procedure Code Date Perfomer Comments Source Bone density scan<sup>1</sup> [id number] 10/15/2018 1. Osteoporosis of the left femoral neck. 2. Osteopenia of the total left hip. 3. Osteopenia of the lumbar spine. [facility] Mammogram<sup>2</sup> [id number] 10/15/2018 There is no mammographic evidence of malignancy. A 1 year screening mammogram is recommended.(10/16/2019) [facility] Diabetic Retinopathy [facility] 7 field stere oscopic fundus photography<sup>3, 4</sup> [id number] 10/08/[address] Ronak Lott i s retinal specialist. [facility] Diabetic Retinopathy Study 7 field stere oscopic fundus photography<sup>1, 2</sup> [id number] 10/08/[address] Ronak valdez retinal specialist. [facility] Colonoscopy<sup>5</sup> [id number] 06/24/2014 Per patient it was ok. [facility] Colonoscopy<sup>3</sup> [id number] 06/24/2014 Per patient it was ok. [facility] Colonoscopy<sup>1</sup> [id number] 06/24/2014 Per patient it was ok. [facility] Emergency department visit for the evalu ation and management of a patient, which requires these 3 sullivan components: A detailed history; A detailed examination; and Medical decision making of moderate complexity. Counseling and/or [place] o [id number] 04/01/2013 [facility] Therapeutic, prophylactic, or diagnostic injection (specify substance or drug); subcutaneous or intramuscular 53083 04/01/2013 [facility] Hysterectomy<sup>6</sup> [id number] 06/24/1979 Due to fibroids [facility] Hysterectomy<sup>4</sup> [id number] 6002 06/24/1979 Due to fibroids [facility] Hysterectomy<sup>2</sup> 52789 6002 06/24/1979 Due to fibroids [facility] Appendectomy [id number] [facility] Cholecystectomy [id number] [facility] Tubal ligation [id number] [facility] Appendectomy [id number] [facility] Cholecystectomy [id number] [facility] Tubal ligation [id number] [facility] Assessment and Plan No Data Provided for This Section Plan of Care No Data Provided for This Section Social History Social History Date Source Social History TypeResponse Alcohol Past Smoking Status Former smoker; Type: Cigarettes; Exposure to Tobacco Smoke None; Cigarette Smoking Last 365 Days No; Reg Smoking Cessation Counseling No entered on: 01/19/19 09/19/2018 [facility] Social History TypeResponse Alcohol Past Smoking Status Former smoker; Type: Cigarettes; Exposure to Tobacco Smoke None; Cigarette Smoking Last 365 Days No; Reg Smoking Cessation Counseling No entered on: 10/09/18 09/19/2018 [facility] Family History No Data Provided for This Section Advance Directives No Data Provided for This Section Functional Status No Data Provided for This Section
--- OUTSIDE RECORDS SUMMARY | 2020-04-08 17:02 | XMS REPORT | Continuity of Care Document ---
Author Author [facility] t Organization [facility] Address [address] [place] [address] Phone Unavailable Care Team Providers Care Cold Working Inspector Name Role Phone Satya MARTINEZ PCP Dewayne Schaeffer Attphys Unavailable Cornelius Bojorquez MD Attphys [phone] Aicha KOHLER, Cornelius Edward Attphys [phone] Valeria KOHLER, Jamar Ramírez Attphys Eagle KOHLER, Briseida Chaudhary Attphys CORNELIUS BOJORQUEZ Attphys Unavailable Ector LOVELACE, Sanford Attphys Chayito GANDHI Attphys Unavailable EHSAN BAE Attphys Unavailable JOSR SAENZ Attphys Unavailable CELENA CHRISTENSEN Attphys Unavailable Delilah Cardoso Attphys Sunni GORDON Attphys Unavailable Shelton Jackson Attphys Yari Stanford Attphys CORNELIUS BOJORQUEZ Admphys Unavailable CELENA CHRISTENSEN Admphys Unavailable Sunni GORDON Admphys Unavailable Payers Payer Name Policy Type Policy Number Effective Date Expiration Date Sunni mcginnis MEDICAID - MEDICAID MGD 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 [id number] 2019- PresentMedicaid Contracted [id number] 2019 00:00:00 [facility] - MEDICARE MGD CAREUNI ESTER MEDICARE [id number] 2019-Present [id number] 2019 00:00:00 [facility] CDC REVIEWCDC [id number] 2020-Present [facility] [address] [id number] 2020 00:00:00 [facility] Star Com [id number] 2019 00:00 :00 [facility] [id number] 2018 00:00:00 [facility] Problems Condition Name Condition Details Condition Category Status Onset Date Resolution Date Last Treatment Date Treating Clinician Comments Source MAMMO --- BONE DENSITY MAMM O --- BONE DENSITY Active 09/25/2018 [facility] Diagnosis Active 2018-09-25 00:00:00 2019-02-19 17:20:00 Stevo Sales M25.512 M25. 512 Active 09/22/2018 [facility] Active 2018-09-22 00:00:00 2018-09-22 12:34:00 Stevo Sales ABD PAIN ABD PAIN Active 03/05/2014 [facility] Active 2014-03-05 12:00:00 2014-03-05 21:57:00 Stevo Sales 719.4 - PAIN IN JOINT 719. 4 - PAIN IN JOINT Active 07/24/2013 [facility] [place] Diagnosis Active 2013-07-24 00:01:00 2013-07-30 08:00:00 [facility] SORE THROAT SORE THROAT Active 04/01/2013 [facility] Active 2013-04-01 00:00:00 2013-04-01 11:50:00 [facility] CHEST PAIN CHES T PAIN Active 07/27/2011 [facility] Active 2011-07-27 13:30:00 2011-08-07 13:33:00 [facility] HTN - Hypertension HTN - Hypertension Active 01/22/2001 Problem 08/03/2011 [facility] Problem Active 2001-01-22 00:00:00 2011-08-03 09:48:46 [facility] Cerebrovascular accident (CVA) CVA (cerebral vascular accident) Pro blem Active [facility] Dehydration Dehydration Problem Active [facility] Acute renal failure superimposed on chronic kidney dis ease Renal failure (ARF), acute on chronic Problem Active [facility] Acute on chronic renal insufficiency Acute on chronic renal insufficiency Problem Active [facility] 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 Hypoglycemia secondar y to sulfonylurea Problem Active [facility] Constipation Problem Active [facility] Pneumonia due to severe acute respiratory syndrome coronavir us 2 (SARS-CoV-2) Problem Active [facility] Cerebrovascular disease (disorder) Cerebrovascular disease (disorder) Active [facility]12[facility]2019 [facility] Active 2019-07-12 00:50:24 [facility] Finding of body mass index (finding) Finding of body mass index (finding) Active Problem 07/12/2019 [facility] Problem Active 2019-07-12 00:50:24 [facility] Hypertensive disorder, systemic arterial (disorder) Hypertensive disorder, systemic arterial (disorder) Active Problem 07/12/2019 [facility] ASHLEY [facility] Problem Active 2019-07-12 00:50:24 [facility] Left hemiparesis (disorder) Le ft hemiparesis (disorder) Active Problem 07/12/2019 [facility] Problem Active 2019-07-12 00:50:24 [facility] Mixed hyperlipidemia (disorder) Mixed hyperlipidemia (disorder) Active Problem 07/12/2019 [facility] Problem Active 2019-07-12 00:50:24 [facility] Shoulder pain (finding) Shou lder pain (finding) Active Problem 07/12/2019 [facility] Problem Active 2019-07-12 00:50:24 Stevo Sales Diabetes mellitus type 2 (disorder) Diabetes mellitus type 2 (disorder) Active Problem 11/30/2018 [facility] Problem Active 2018-11-30 21:55:37 Memzaki Sales Unsteady when walking (finding) Unsteady when walking (finding) Active Problem 07/12/2019 [facility] Problem Active 2019-07-12 00:50:24 Stevo Sales Vitamin D deficiency (disorder) Vitamin D deficiency (disorder) Active Problem 07/12/2019 [facility] Problem Active 2019-07-12 00:50:24 Stevo Sales Chronic kidney disease stage 4 (disorder) Chronic kidney disease stage 4 (disorder) Active Problem 07/12/2019 [facility] Problem Active 2019-07-12 00:50:24 Memzaki Sales Diabetic complication (disorder) Diabetic complication (disorder) Active Problem 07/12/2019 [facility] Problem Active 2019-07-12 00:50:24 Stevo Sales Osteoporosis (disorder) Oste oporosis (disorder) Active Problem 07/12/2019 [facility] Problem Active 2019-07-12 00: 50:24 Stevo Sales Chest pain Ches t pain Active Problem 04/04/2013 [facility] Problem Active 2013-04-04 05:57:39 Nc heidi Sales DM - Diabetes mellitus DM - Diabetes mellitus Active Problem 04/04/2013 [facility] Problem Active 2013-04-04 05:57:3 9 Stevo Sales Chest pain (finding) Ches t pain (finding) Active Problem 03/08/2014 ASHLEY Degroot [facility] Problem Active 2014-03-08 21:25:53 [facility] Henrry Diabetes mellitus (disorder) D iabetes mellitus (disorder) Active Problem 03/08/2014 ASHLEY Degroot [facility] Problem Active 2014-03-08 21:25:53 Stevo Sales Hyperlipidemia (disorder) Hype rlipidemia (disorder) Active Problem 03/08/2014 ASHLEY Degroot [facility] Problem Active 2014-03-08 21:25:53 [facility] Henrry HTN - Hypertension HTN - Hypertension Active Problem 04/04/2013 [facility] Problem Active 2013-04-04 05:57:39 [facility] Hyperlipidemia Hype rlipidemia Active Problem 04/04/2013 [facility] Problem Active 2013-04-04 05:57:39 [facility] CHEST PAIN NOS CHES T PAIN NOS Active [facility] Diagnosis Active 2011-08-07 13:33:00 [facility] Discharge Diagnosis: Abdominal pain Discharge Diagnosis: Abdominal pain 03/06/2014 03/08/2014 [facility] Problem 2014-03-06 05:00:00 2014-03-08 21:25:53 2014-03-08 21:25:53 [facility] Discharge Diagnosis: Acute lower urinary tract infecti on Discharge Diagnosis: Acute lower urinary tract infection 03/06/2014 03/08/2014 [facility] Problem 2014-03-06 05:00:00 2014-03-08 21:25:53 2014-02 21:25:53 [facility] Allergies, Adverse Reactions, Alerts Allergy Name Allergy Type Status Severity Reaction(s) Onset Date Inacti ve Date Treating Clinician Comments Source Peanut Propensity to adverse reactions Active Swelling 2020-02 00:00:00 [facility] Iodine Propensity to adverse reactions Active Othe r (See Comments) 2020-01-28 00:00:00 unsure [facility] iodine DA Active U 2019-07-14 00:00:00 [facility] diphenhydramine DA Active U 2019-07-14 00:00:00 [facility] vancomycin DA Active U 2019-07-14 00:00:00 [facility] tomato FA Active U 2019-07-14 00:00:00 [facility] Diphenhydramine Allergy to substance Active Severe RASH 2019-04-17 00:00:00 [facility] Tomato Allergy to substance Active Severe RASH/VOMITING 2019-04-17 00 :00:00 [facility] iodine DA Active MO 2016-07-05 00:00:00 [facility] vancomycin DA Active U 2016-07-05 00:00:00 [facility] tomato FA Active U 2016-07-05 00:00:00 [facility] vancomycin vancomycin Active Low Nc morial Henr[place] iodine iodine Active [facility] Social History Social Habit Start Date Stop Date Quantity Comments Source History SDOH Alcohol Std Drinks [facility] History SDOH Alcohol Binge [facility] Tobacco use and exposure 2020-03-04 00:00:00 2020-03-04 00:00:00 Pedro murphy used [facility] Alcohol intake 2020-03-04 00:00:00 2020-03-04 00:00:00 Current non-drinker of alcohol (finding) [facility] Alena r History SDOH Alcohol Frequency 2020-03-01 00:00:00 2020-03-01 00:00:0 0 1 [facility] Tobacco Comment 2020-03-01 00:00:00 2020-03-01 00:00:00 occassio nal smoker for 4 years only [facility] Social History 2018-09-19 16:43:09 2018-09-19 16:43:09 [facility] Sex Assigned At 1955 00:00:00 1955 00:00:00 Female [facility] Smoking Status Start Date Stop Date Source Former smoker 2020-03-04 00:00:00 2020-03-04 00:00:00 [facility] Medications Ordered Medication Name Filled Medication Name Start Date Stop Da te Current Medication? Ordering Clinician Indication Dosage Frequency Signature (SIG) Comments Components Source amLODIPine (NORVASC) 5 MG tablet 2020-03-04 17:24:01 Yes 5mg QD Take 5 mg by mouth daily. [facility] pantoprazole (PROTONIX) 40 MG tablet 2020-03-04 17:24:01 Ye s 40mg QD Take 40 mg by mouth daily. [facility] aspirin 81 MG EC tablet 2020-03-04 17:24:01 Yes 81mg QD Take 81 mg by mouth daily. [facility] atorvastatin (LIPITOR) 80 MG tablet 2020-03-04 17:24:01 Yes 80mg QD Take 80 mg by mouth daily. [facility] QUEtiapine (SEROQUEL) 25 MG tablet 2020-03-04 17:24:01 Yes 25mg QD Take 25 mg by mouth nightly. [facility] clopidogreL (PLAVIX) 75 mg tablet 2020-03-04 17:24:01 Yes 75mg QD Take 75 mg by mouth daily. [facility] ergocalciferol (VITAMIN D2) 1,250 mcg (50,000 unit) capsule 2020-03-04 17:24:01 Yes 20852B Q7D Take 50,000 Units by mouth on ce a week. [facility] traMADoL (ULTRAM) 50 mg tablet 2020-03-04 00:00:00 2020-03-09 23 :59:00 No 50mg Take 1 tablet (50 mg total) by mouth every 6 (six) hours as needed for Pain for up to 5 days. Max Daily Amount: 200 mg [facility] Metoprolol Tartrate 25 mg oral tablet 2019-05-25 16:19:08 Y es = 0.5 tab, PO, BID, # 90 tab, Pharmacy: [id number] [facility] Furosemide 20 MG Oral Tablet 2019-04-08 02:10:03 Yes = 1 tab, PO, Daily, # 90 tab, STOP LISINOPRIL HCTZ, Pharmacy: [facility] [employer] [facility]83[address] [facility] atorvastatin 80 mg oral tablet 2019-01-29 02:40:00 Yes 80 mg = 1 tab, PO, Bedtime, # 90 tab, 1 Refill(s), Pharmacy: [facility] [employer] #[id number] [facility] amLODIPine 5 mg oral tablet 2019-01-28 21:42:09 Yes = 1 tab, PO, BID, # 180 tab, Refill(s) 1, Pharmacy: [facility] [employer] [facility] #[id number] [facility] amLODIPine 5 mg oral tablet 2019-01-28 21:36:00 No 5 mg = 1 tab, PO, BID, # 60 tab, 1 Refill(s), Pharmacy: [facility] [employer] [facility]39[address] [facility] NIFEdipine 30 mg oral tablet, extended release 2019-01-28 02:09: 00 No 30 mg = 1 tab, PO, Daily, # 90 tab, 1 Re fill(s), Pharmacy: [facility] [employer] [facility]15338 [facility] pantoprazole 40 mg oral enteric coated tablet 2019-01-21 02:07:0 0 Yes See Instructions, 1 tab PO a day only 2 times a week, # 90 tab, 0 Refill(s), called to pharmacy [facility] Ergocalciferol 18962 UNT Oral Capsule 2019-01-19 16:11:16 Y es 50,000 IntlUnit = 1 cap, PO, qWeek, # 12 cap, 2 Refill(s), Pharmacy: [facility] [employer] [facility] #[id number] [facility] Alendronic acid 70 MG Oral Tablet 2019-01-19 16:10:38 No 70 mg = 1 tab, PO, Q7D, with 6 to 8 ounces plain water, at least 30 minutes before first food, beverage, or medication of the day, # 12 tab, 3 Refill(s), Pharmacy: [facility] [employer] [facility] #[id number] [facility] atorvastatin 80 mg oral tablet 2019-01-19 16:10:00 Yes 80 mg = 1 tab, PO, Daily, # 90 tab, 1 Refill(s), Pharmacy: [facility] [employer] [facility] #[id number] [facility] lisinopril 30 mg oral tablet 2019-01-19 16:10:00 Yes 30 mg = 1 tab, PO, Daily, # 90 tab, 1 Refill(s), Pharmacy: [facility] [employer] [facility] #[id number], stop lisinopril hctz [facility] Furosemide 20 MG Oral Tablet 2019-01-19 16:10:00 Yes 20 mg = 1 tab, PO, Daily, # 90 tab, 0 Refill(s), Pharmacy: [facility] [employer] [facility] #[id number], stop lisinopril hctz [facility] atorvastatin 80 mg oral tablet 2019-01-19 15:36:00 No 80 mg = 1 tab, PO, Daily, # 90 tab, 3 Refill(s) Cynthia kwon [place] Ergocalciferol 71073 UNT Oral Capsule 2018-10-21 21:15:00 Y es 50,000 IntlUnit = 1 cap, PO, qWeek, # 12 cap, 2 Refill(s), Pharmacy: [facility] [address] [facility] citalopram 10 mg oral tablet 2018-10-20 17:05:00 Yes 10 mg = 1 tab, PO, Daily, # 30 tab, 1 Refill(s), Pharmacy: [facility] [address] [facility] Alendronic acid 70 MG Oral Tablet 2018-10-20 17:03:00 Yes 70 mg = 1 tab, PO, Q7D, with 6 to 8 ounces plain water, at least 30 minutes before first food, beverage, or medication of the day, # 12 tab, 3 Refill(s) [facility] OneTouch Ultra Blue Blood Glucose Test Strip 2018-10-20 16:57:00 Yes , # 270 ea, Insulin dependent, Does not use insulin pump, Last DM eval date 10/20/18, 3 Refill(s), Pharmacy: [facility] [address] [facility] atorvastatin 40 mg oral tablet 2018-10-20 16:56:30 Yes 40 mg = 1 tab, PO, Bedtime, # 90 tab, 1 Refill(s), Pharmacy: [facility] [id number] [place] [address] Hydrochlorothiazide 12.5 MG / Lisinopril 20 MG Oral Tablet 2018-10-20 16:53:00 Yes 1 tab, PO, Daily, # 90 tab, 1 Refill(s), Pharmacy: [facility] [address], stop losartan hctz and amlodipine. [facility] atorvastatin 40 mg oral tablet 2018-10-09 19:40:00 Yes 40 mg = 1 tab, PO, Bedtime, # 90 tab, 1 Refill(s), Pharmacy: [facility] [id number] [place] [address] Trazodone Hydrochloride 50 MG Oral Tablet 2018-09-19 21:12:00 Yes 50 mg = 1 tab, PO, Bedtime, after meals for insomnia, # 30 tab, 1 Refill(s), Pharmacy: [facility] [address] [facility] orial [place] gabapentin 300 MG Oral Capsule 2018-09-19 17:33:00 Yes 300 mg = 1 cap, PO, BID, # 60 cap, 1 Refill(s), Pharmacy: [facility] [id number] [place] [address] metoprolol tartrate 25 mg oral tablet 2018-09-19 16:44:00 Y es 12.5 mg = 0.5 tab, PO, BID, 0 Refill(s) [facility] carmen [place] Hydrochlorothiazide 12.5 MG / Losartan Potassium 50 MG Oral Tablet 2018-09-19 16:44:00 Yes 1 tab, PO, Daily, # 90 tab, 0 Refill(s) Stevo Sales amLODIPine 10 mg oral tablet 2018-09-19 16:44:00 Yes 10 mg = 1 tab, PO, Daily, # 90 tab, 1 Refill(s) Cynthia Sales Aspirin Enteric Coated 325 mg oral delayed release tablet 2018-09-19 16:44:00 Yes 325 mg = 1 tab, PO, Daily, 0 Ref ill(s) Stevo Sales Glipizide 5 MG Oral Tablet 2018-09-19 16:44:00 Yes 5 mg = 1 tab, PO, Before Breakfast, # 30 tab, 0 Refill(s) Stevo Sales pantoprazole 40 mg oral enteric coated tablet 2018-09-19 16:44:0 0 Yes 40 mg = 1 tab, PO, Daily, # 90 tab, 0 Refill(s) Stevo Sales 3 ML insulin detemir 100 UNT/ML Prefilled Syringe [Levemir] 2018-09-19 16:44:00 Yes 18 unit, SUB-Q, Bedtime, 0 Re fill(s) [facility] [place] atorvastatin 40 mg oral tablet 2018-09-19 16:44:00 Yes 40 mg = 1 tab, PO, Bedtime, # 90 tab, 1 Refill(s) Stevo Sales Acetaminophen 325 MG / Hydrocodone Bitartrate 5 MG Oral Tabl et 2014-03-06 07:48:00 Yes 1 tab, PO, Q4H, for pain, # 1 2 tab, 0 Refill(s) [facility] [place] ciprofloxacin 500 mg oral tablet 2014-03-06 07:48:00 Yes 500 mg = 1 tab, PO, Q12H, # 20 tab, 0 Refill(s) Jose Guadalupe adismalcolm Gomezann Zofran 2014-03-06 03:16:00 No 4 mg, Route: IVP, Drug form: INJ, ONCE, Dosing Weight 78.636, kg, Priority: STAT, Start date: 03/05/14 22:16:00, Stop date: 03/05/14 22:16:00 [facility] Scott easley Morphine 2014-03-06 03:15:00 No 4 mg, Route: IVP, Drug form: INJ, ONCE, Dosing Weight 78.636, kg, Priority: STAT, Start date: 03/05/14 22:15:00, Stop date: 03/05/14 22:15:00 [facility] oral [facility] 2013-04-01 18:36:01 Yes Bobbi Talib Aldridge 10 mg, 1 tab, PO, Daily, 30 tab, Substit ution Allowed, TAB [facility] metFORmin 500 mg oral tablet 2013-04-01 18:35:52 Yes Bobbi Talib Aldridge 500 mg, 1 tab, PO, BID, 30 tab, Substitu tion Allowed [facility] Insulin regular 2013-04-01 17:23:00 No Bobbi Aldridge 8 unit, Route: SUB-Q, ONCE, Dosing Weight 79.091, kg, Start date: 04/01/13 12:23:00, Stop date: 04/01/13 12:23:00 [facility] 2013-04-01 16:36:00 No Bobbi lees 10 mg, Route: IM, ONCE, Dosing Weight 79.091, kg, Priority: STAT, Start date: 04/01/13 11:36:00, Stop date: 04/01/13 11:36:00 [facility] ketorolac 2013-04-01 16:35:00 No Bobbi Franklin s 60 mg, Route: IM, Drug form: INJ, ONCE, Dosing Weight 79.091, kg, Priority: STAT, Start date: 04/01/13 11:35:00, Stop date: 04/01/13 11:35:00 [facility] Bicillin L-A 2013-04-01 16:35:00 No Bobbi Lawrence ards 1,200,000 unit, 2 mL, Route: IM, Drug form: INJ, ONCE, Dosing Weight 79.091, kg, Start date: 04/01/13 11:35:00, Stop date: 04/01/13 11:35:00(penicillin G benzathine 1.2 MilUnit/2 ml INJ) (Same as: Bicillin L-A, Permapen) NOT For Daily Use [facility] acetaminophen 2011-08-01 01:22:00 No Caden [place] 500 mg, 1 tab, Route: PO, Drug form: TAB, Q6H, PRN Pain, Start date: 07/31/11 19:22:00, Duration: 30 day, Stop date: 08/30/11 19:21:00 [facility] Metoprolol Succinate ER 25 mg oral tablet, extended release 2011-07-30 15:00:00 No Caden [place] 25 mg, 1 tab, Route: PO, Drug form: ERTAB, Daily, Start date: 07/30/11 9:00:00, Duration: 30 day, Stop date: 08/28/11 9:00:00 [facility] aspirin 325 mg tablet, enteric coated 2011-07-30 15:00:00 No Caden [place] 325 mg, 1 tab, Route : PO, Drug form: ECTAB, Daily, Start date: 07/30/11 9:00:00, Duration: 30 day, Stop date: 08/28/11 9:00:00 [facility] Saline Flush 0.9% 2011-07-30 03:00:00 No Caden Liverpool 5 ml, Route: IVP, Drug Form: INJ, Q12H, Start date: 07/29/11 21:00:00, Duration: 30 day, Stop date: 08/28/11 9:00:00 [facility] simvastatin 2011-07-30 03:00:00 No Caden Nasim 20 mg, 1 tab, Route: PO, Drug form: TAB, Bedtime, Start date: 07/29/11 21:00:00, Duration: 30 day, Stop date: 08/27/11 21:00:00 [facility] De[facility]% in Water IV 2011-07-29 23:36:00 No Caden Nasim 50 mL, Route: IVP, PRN, Blood Glucose Results, Start date: 07/29/11 17:36:00, Duration: 30 day, Stop date: 08/28/11 17:35:00 Nc heidi [place] Dextrose 50% in Water IV 2011-07-29 23:35:00 No Caden Liverpool 25 mL, Route: IVP, PRN, Blood Glucose Results, Start date: 07/29/11 17:35:00, Duration: 30 day, Stop date: 08/28/11 17:34:00 Nc heidi Sales metFORmin 500 mg oral tablet 2011-07-29 23:00:00 No Placido eev [place] 500 mg, 1 tab, Route: PO, Drug form: TAB, BID-Meals, Start date: 07/29/11 17:00:00, Duration: 30 day, Stop date: 08/28/11 8:00:00 [facility] insulin aspart 2011-07-29 22:33:00 No Caden Liverpool 4 unit, 0.04 mL, Route: SUB-Q, Drug form: SOLN, TID-Before Meals, PRN Blood Glucose Results, Start date: 07/29/11 16:33:00, Duration: 30 day, Stop date: 08/28/11 16:32:00 [facility] Saline Flush 0.9% 2011-07-29 22:33:00 No Caden Liverpool 5 ml, Route: IVP, Drug Form: INJ, PRN, PRN Line Flush, Start date: 07/29/11 16:33:00, Duration: 30 day, Stop date: 08/28/11 16:32:00 [facility] nitroglycerin SL Tab 2011-07-29 22:33:00 No Caden Grov er 0.4 mg, 1 tab, Route: SL, Drug form: TAB, Q5Min, PRN Chest Pain, Start date: 07/29/11 16:33:00, Duration: 3 doses or times, Stop date: Limited # of times [facility] insulin aspart 2011-07-29 22:32:00 No Caden Nasim 2 unit, 0.02 mL, Route: SUB-Q, Drug form: SOLN, TID-Before Meals, PRN Blood Glucose Results, Start date: 07/29/11 16:32:00, Duration: 30 day, Stop date: 08/28/11 16:31:00 [facility] glucagon 2011-07-29 22:32:00 No Caden Liverpool 1 mg, Route: IM, Drug form: PDR/INJ, PRN, PRN Blood Glucose Results, Start date: 07/29/11 16:32:00, Duration: 30 day, Stop date: 08/28/11 16:31:00 [facility] atropine 2011-07-29 22:32:00 No Caden Nasim 0.5 mg, 5 mL, Route: IVP, Drug form: INJ, PRN, PRN Bradycardia, Start date: 07/29/11 16:32:00, Duration: 30 day, Stop date: 08/28/11 16:31:00 [facility] Tylenol 2011-07-29 22:32:00 No Caden Liverpool 650 mg, 2 tab, Route: PO, Drug form: TAB, Q6H, PRN Pain, Start date: 07/29/11 16:32:00, Duration: 30 day, Stop date: 08/28/11 16:31:00 [facility] Dextrose 50% Syringe 2011-07-29 22:32:00 No Caden Grov er 12.5 gm, Route: IVP, Drug Form: INJ, PRN, PRN Blood Glucose Results, Start date: 07/29/11 16:32:00, Duration: 30 day, Stop date: 08/28/11 16:31:00 [facility] Dextrose 50% Syringe 2011-07-29 22:31:00 No Caden Grov er 25 gm, Route: IVP, Drug Form: INJ, PRN, PRN Blood Glucose Results, Start date: 07/29/11 16:31:00, Duration: 30 day, Stop date: 08/28/11 16:30:00 [facility] Metoprolol Succinate ER 25 mg oral tablet, extended release 2011-07-29 15:00:00 No Palur V Frederick 25 mg, 1 tab, Route: PO, Drug form: ERTAB, Daily, Start date: 07/29/11 9:00:00, Duration: 30 day, Stop date: 08/27/11 9:00:00 [facility] simvastatin 2011-07-29 03:00:00 No Palur V Frederick 20 mg, 1 tab, Route: PO, Drug form: TAB, Bedtime, Start date: 07/28/11 21:00:00, Duration: 30 day, Stop date: 08/26/11 21:00:00 [facility] mg oral tablet 2011-07-28 23:00:00 No Palur V Frederick 500 mg, 1 tab, Route: PO, Dr ug form: TAB, BID-Meals, Start date: 07/28/11 17:00:00, Duration: 30 day, Stop date: 08/27/11 8:00:00 [facility] Tylenol 2011-07-28 10:25:00 No Palur V Frederick 650 mg, 2 tab, Route: PO, Drug form: TAB, Q6H, PRN Pain, Start date: 07/28/11 4:25:00, Duration: 30 day, Stop date: 08/27/11 4:24:00 [facility] Saline Flush 0.9% 2011-07-28 03:00:00 No Caden Nasim 5 ml, Route: IVP, Drug Form: INJ, Q12H, Start date: 07/27/11 21:00:00, Duration: 30 day, Stop date: 08/26/11 9:00:00 [facility] atropine 2011-07-28 01:19:00 No Caden [place] 0.5 mg, 5 mL, Route: IVP, Drug form: INJ, PRN, PRN Bradycardia, Start date: 07/27/11 19:19:00, Duration: 30 day, Stop date: 08/26/11 19:18:00 [facility] aspirin 325 mg tablet, enteric coated 2011-07-28 01:00:00 No Caden Nasim 325 mg, 1 tab, Route : PO, Drug form: ECTAB, Q24H, Start date: 07/27/11 19:00:00, Duration: 30 day, Stop date: 08/25/11 19:00:00 [facility] Saline Flush 0.9% 2011-07-28 00:25:00 No Caden Liverpool 5 ml, Route: IVP, Drug Form: INJ, PRN, PRN Line Flush, Start date: 07/27/11 18:25:00, Duration: 30 day, Stop date: 08/26/11 18:24:00 [facility] nitroglycerin SL Tab 2011-07-28 00:25:00 No Caden Grov er 0.4 mg, 1 tab, Route: SL, Drug form: TAB, Q5Min, PRN Chest Pain, Start date: 07/27/11 18:25:00, Duration: 3 doses or times, Stop date: Limited # of times [facility] Dextrose 50% Syringe 2011-07-28 00:24:00 No Caden Grov er 12.5 gm, 25 mL, Route: IVP, Drug Form: INJ, PRN, PRN Blood Glucose Results, Start date: 07/27/11 18:24:00, Duration: 30 day, Stop date: 08/26/11 18:23:00 [facility] glucagon 2011-07-28 00:24:00 No Caden Whiter 1 mg, Route: IM, Drug form: PDR/INJ, PRN, PRN Blood Glucose Results, Start date: 07/27/11 18:24:00, Duration: 30 day, Stop date: 08/26/11 18:23:00 [facility] insulin aspart 2011-07-28 00:24:00 No Caden Whiter 2 unit, 0.02 mL, Route: SUB-Q, Drug form: SOLN, TID-Before Meals, PRN Blood Glucose Results, Start date: 07/27/11 18:24:00, Duration: 30 day, Stop date: 08/26/11 18:23:00 [facility] Tylenol 2011-07-27 23:44:00 No Cornelius Santi 1,000 mg, Route: PO, Drug form: TAB, ONCE, PRN Pain, Priority: STAT, Start date: 07/27/11 17:44:00, Stop date: 08/26/11 17:43:00 [facility] metFORmin 500 mg oral tablet 2011-07-27 22:00:40 Yes Palur V Frederick 500 mg, 1 tab, PO, BID-Meals, Substitution Allowed [facility] hydrochlorothiazide-lisinopril 12.5 mg-10 mg oral tablet 2011-07-27 22:00:27 Yes 1 tab, PO, Daily, Substitution A llowed, Maintenance [facility] simvastatin 2011-07-27 22:00:11 Yes Palur V Frederick 20 mg, PO, Bedtime, Substitution Allowed [facility] Vitamin D 50,000 intl units oral capsule 2011-07-27 22:00:01 Yes 50,000 IntlUnit, 1 cap, PO, QFri, Substitution Allowed [facility] ibuprofen 400 mg oral tablet 2011-07-27 21:59:45 Yes 400 mg, 1 tab, PO, TID, PRN, as needed for headache, Substitution Allowed [facility] Saline Flush 0.9% 2011-07-27 20:54:00 No Caden Whiter 5 ml, Route: IVP, Drug Form: INJ, PRN, PRN Line Flush, Start date: 07/27/11 14:54:00, Duration: 24 hr, Stop date: 07/28/11 14:53:00 [facility] aspirin 325 mg tablet 2011-07-27 20:54:00 No Cornelius Hernandez all 325 mg, Route: PO, Drug form: TAB, ONCE, Priority: STAT, Start date: 07/27/11 14:54:00, Stop date: 07/27/11 14:54:00 [facility] Amlodipine Besylate Amlodipine Besylate Yes 10 Daily [facility] Aspirin Aspirin Yes 81 Daily [facility] Atorvastatin Calcium Atorvastatin Calcium Yes 80 Bedtime [facility] Clonidine Clonidine Yes Every 72 Hours [facility] Clopidogrel Bisulfate (Clopidogrel) 75 Mg TABLET Clopi dogrel Bisulfate (Clopidogrel) 75 Mg TABLET Yes 75 Daily [facility] Famotidine Famotidine Yes 20 Every 48 Hours [facility] Lisinopril (Prinavil / Zestril) 20 Mg TABLET Lisinopri l (Prinavil / Zestril) 20 Mg TABLET Yes 20 Every 12 Hours [facility] Nifedipine Nifedipine Yes 20 Daily [facility] Unk Uti Antibiotic Unk Uti Antibiotic 2019-09-10 00:00:00 No [facility] Rivastigmine Tartrate (Rivastigmine) 6 Mg CAPSULE [place] stigmine Tartrate (Rivastigmine) 6 Mg CAPSULE 2019-09-02 00:00:00 No 6 Twice A Day [facility] Alendronate Sodium Alendronate Sodium 2019-08-11 00:00:00 No 70 Weekly [facility] Aspirin Aspirin 2019-08-11 00:00:00 No 325 Daily [facility] Metoprolol Succinate Metoprolol Succinate 2019-08-11 00:00:00 No 12.5 Twice A Day [facility] Pantoprazole Sodium (Protonix) 40 Mg TABLET. Pantopr azole Sodium (Protonix) 40 Mg TABLET. 2019-08-11 00:00:00 No 40 Daily [facility] Trazodone Hcl Trazodone Hcl 2019-08-11 00:00:00 No 50 Bedtime as needed for Insomnia [facility] Vit D2 12452 Vit D2 46491 2019-08-11 00:00:00 No Weekly [facility] Atorvastatin Atorvastatin 2019-04-19 00:00:00 No 80 Daily [facility] Atorvastatin Calcium Atorvastatin Calcium 2019-04-19 00:00:00 No 40 Bedtime [facility] Glipizide Glipizide 2019-04-19 00:00:00 No 2.5 Daily [facility] Hydrochlorothiazide Hydrochlorothiazide 2019-04-19 00:00:00 No 12.5 Daily [facility] Lisinopril Lisinopril 2019-04-19 00:00:00 No 20 Renetta ly [facility] Glipizide Glipizide 2019-01-05 00:00:00 No 5 Daily [facility] Amlodipine Besylate Amlodipine Besylate 2019-01-02 00:00:00 No 5 Daily [facility] Vital Signs Vital Name Observation Time Observation Value Comments Source Systolic blood pressure 2020-03-04 16:45:00 164 mm[Hg] [facility] Diastolic blood pressure 2020-03-04 16:45:00 77 mm[Hg] [facility] Heart rate 2020-03-04 16:45:00 68 /min [facility] Respiratory rate 2020-03-04 16:45:00 14 /min [facility] Oxygen saturation in Arterial blood by Pulse oximetry 03-04 16:45:00 95 /min [facility] Body temperature 2020-03-04 15:45:00 36.44 Terra [facility] Body weight 2020-03-04 06:50:00 51.665 kg [facility] BMI 2020-03-04 06:50:00 20.83 kg/m2 [facility] Body height 2020-03-04 06:47:00 157.5 cm [facility] Weight 2020-01-05 13:29:00 160 [lb_av] [facility] BMI (Body Mass Index) 2020-01-05 13:29:00 29.3 kg/m2 [facility] Weight 2019-11-17 16:33:00 129 [lb_av] [facility] BMI (Body Mass Index) 2019-11-17 16:33:00 23.6 kg/m2 [facility] Body Temperature 2019-09-10 13:23:00 96.7 [degF] [facility] Systolic (mm Hg) 2019-01-19 18:06:00 [place] [facility] [place] Diastolic (mm Hg) 2019-01-19 18:06:00 [facility] Weight 2019-01-19 15:34:00 [facility] [place] Height 2019-01-19 15:34:00 157.48 cm [facility] [place] BMI Calculated 2019-01-19 15:34:00 [facility] [place] Temperature Oral (F) 2019-01-19 15:34:00 98.0 F [facility] Systolic (mm Hg) 2019-01-19 15:34:00 [place] [facility] [place] Diastolic (mm Hg) 2019-01-19 15:34:00 [facility] Respitory Rate 2019-01-19 15:34:00 [facility] [place] Heart Rate 2019-01-19 15:34:00 [facility] [place] BMI Calculated 2018-10-20 16:23:00 [facility] Weight 2018-10-20 16:23:00 [facility] [place] Height 2018-10-20 16:23:00 154.94 cm [facility] Temperature Oral (F) 2018-10-20 16:23:00 97.9 F [facility] Respitory Rate 2018-10-20 16:23:00 [facility] [place] Heart Rate 2018-10-20 16:23:00 [facility] Systolic (mm Hg) 2018-10-20 16:23:00 [place] [facility] Diastolic (mm Hg) 2018-10-20 16:23:00 [facility] [place] Temperature Oral (F) 2018-10-09 19:23:00 98.0 F [facility] [place] Respitory Rate 2018-10-09 19:23:00 [facility] [place] Heart Rate 2018-10-09 19:23:00 [facility] Weight 2018-10-09 19:23:00 [facility] [place] BMI Calculated 2018-10-09 19:23:00 [facility] [place] Systolic (mm Hg) 2018-10-09 19:23:00 [place] [facility] Diastolic (mm Hg) 2018-10-09 19:23:00 [facility] Height 2018-10-09 19:23:00 157.48 cm [facility] Weight 2018-09-19 16:42:00 [facility] Height 2018-09-19 16:42:00 157.48 cm [facility] BMI Calculated 2018-09-19 16:42:00 [facility] Temperature Oral (F) 2018-09-19 16:42:00 98.5 F [facility] Respitory Rate 2018-09-19 16:42:00 [facility] [place] Heart Rate 2018-09-19 16:42:00 [facility] [place] Systolic (mm Hg) 2018-09-19 16:42:00 [place] [facility] [place] Diastolic (mm Hg) 2018-09-19 16:42:00 [facility] Heart Rate 2014-03-06 08:46:00 [facility] [place] Respitory Rate 2014-03-06 08:46:00 [facility] [place] Diastolic (mm Hg) 2014-03-06 08:46:00 [facility] Systolic (mm Hg) 2014-03-06 08:46:00 [place] [facility] [place] Diastolic (mm Hg) 2014-03-06 03:24:00 [facility] [place] Systolic (mm Hg) 2014-03-06 03:24:00 [facility] Heart Rate 2014-03-06 03:24:00 [facility] Respitory Rate 2014-03-06 03:24:00 [facility] [place] Height 2014-03-05 22:44:00 160.02 cm [facility] [place] BMI Calculated 2014-03-05 22:44:00 [facility] [place] Weight 2014-03-05 22:44:00 [facility] [place] Temperature Oral (F) 2014-03-05 22:44:00 98.3 F [facility] Heart Rate 2014-03-05 22:44:00 [facility] [place] Systolic (mm Hg) 2014-03-05 22:44:00 [place] [facility] [place] Respitory Rate 2014-03-05 22:44:00 [facility] [place] Diastolic (mm Hg) 2014-03-05 22:44:00 [facility] Heart Rate 2013-04-01 18:51:00 [facility] Systolic (mm Hg) 2013-04-01 18:51:00 [place] [facility] [place] Diastolic (mm Hg) 2013-04-01 18:51:00 [facility] Respitory Rate 2013-04-01 18:51:00 [facility] [place] Respitory Rate 2013-04-01 15:19:00 [facility] [place] Diastolic (mm Hg) 2013-04-01 15:19:00 [facility] [place] Heart Rate 2013-04-01 15:19:00 [facility] [place] Systolic (mm Hg) 2013-04-01 15:19:00 [place] [facility] Weight 2013-04-01 14:47:00 [facility] [place] Height 2013-04-01 14:47:00 160.02 cm [facility] Respitory Rate 2013-04-01 14:47:00 [facility] [place] Heart Rate 2013-04-01 14:47:00 [facility] [place] Systolic (mm Hg) 2013-04-01 14:47:00 [place] [facility] [place] Diastolic (mm Hg) 2013-04-01 14:47:00 [facility] [place] Temperature Oral (F) 2013-04-01 14:47:00 98.2 F [facility] [place] Heart Rate 2011-08-01 13:57:00 [facility] [place] Temperature Oral (F) 2011-08-01 13:57:00 98.2 F [facility] [place] Respitory Rate 2011-08-01 13:57:00 [facility] [place] Systolic (mm Hg) 2011-08-01 13:57:00 [place] [facility] [place] Diastolic (mm Hg) 2011-08-01 13:57:00 [facility] Diastolic (mm Hg) 2011-08-01 10:00:00 [facility] Heart Rate 2011-08-01 10:00:00 [facility] [place] Systolic (mm Hg) 2011-08-01 10:00:00 [place] [facility] Respitory Rate 2011-08-01 10:00:00 [facility] [place] Temperature Oral (F) 2011-08-01 10:00:00 97.4 F [facility] [place] Diastolic (mm Hg) 2011-08-01 06:00:00 [facility] [place] Respitory Rate 2011-08-01 06:00:00 [facility] [place] Systolic (mm Hg) 2011-08-01 06:00:00 [facility] Heart Rate 2011-08-01 06:00:00 [facility] Temperature Oral (F) 2011-08-01 06:00:00 98.2 F [facility] [place] Weight 2011-07-28 00:35:00 [facility] [place] Height 2011-07-28 00:35:00 157.48 cm [facility] Weight 2011-07-27 20:46:00 [facility] Height 2011-07-27 20:46:00 157.48 cm [facility] Procedures Procedure Date / Time Performed Performing Clinician [facility] e TRANSFUSION SERVICE REPORT - SCAN 2020-03-05 18:04:26 Provid er, Default Scanning [facility] CREATION,A-V FISTULA 2020-03-04 13:46:00 Wagner Bojorquez [facility] POCT-POTASSIUM 2020-03-04 13:02:00 Wagner Bojorquez [facility] POCT-GLUCOSE METER 2020-03-04 06:52:00 Wagner Bojorquez [facility] POCT-POTASSIUM 2020-03-04 06:49:00 Wagner Bojorquez [facility] BASIC METABOLIC PANEL (7) 2020-03-04 06:43:00 Michael Barahona bruce [facility] MAGNESIUM 2020-03-04 06:43:00 Michael Barahona [facility] PHOSPHORUS 2020-03-04 06:43:00 Michael Barahona [facility] PROTHROMBIN TIME/INR 2020-03-04 06:43:[address] [facility] APTT 2020-03-04 06:43:00 Michael Barahona [facility] TYPE AND SCREEN, AUTOMATED 2020-03-04 06:43:00 Michael Barahona Ed lazaro [facility] CBC W/PLT COUNT & AUTO DIFFERENTIAL 2020-03-04 06:43:00 Sunni Barahona [facility] ECG 12-LEAD 2020-03-03 14:59:08 Unknown, Hl7 [facility] SARS-COV2/RT-PCR (HS & REF LABS) 2020-03-03 14:58:00 Sanford Barney [facility] HEMOGLOBIN 2020-03-03 14:58:00 Coy Magana [facility] BASIC METABOLIC PANEL (7) 2020-03-03 14:58:00 Coy Magana nd [facility] Computed tomography of brain without radiopaque contrast 2019-12 00:00:00 [facility] CT of abdomen and pelvis without contrast 2020-01-05 00:00:00 [facility] Computed tomography of chest without contrast 2020-01-05 00:00:0 0 [facility] CT of abdomen and pelvis without contrast 2019-11-17 00:00:00 [facility] PERFORMANCE OF URINARY FILTRATION, <6 HRS/DAY 2019-09-04 00:00:0 0 [facility] Computed tomography of brain without radiopaque contrast 00:00:00 MEENAKSHI GANDHI [facility] CT of abdomen and pelvis without contrast 2019-08-25 00:00:00 [facility] EGD PLACE GASTROSTOMY TUBE 2019-08-10 00:00:00 Dre [facility] HEMODIALYSIS ONE EVALUATION 2019-08-10 00:00:00 [facility] INSERTION OF FEEDING DEVICE INTO STOMACH, PERC APPROACH 00:00:00 [facility] Computed tomography of chest without contrast 2019-07-10 00: 00:00 ABDIRASHID ALFORD [facility] Computed tomography of abdomen without contrast 2019-07-10 00:00 :00 [facility] Computed tomography of brain without radiopaque contrast 00:00:00 NADIA SOW [facility] Computed tomography of chest without contrast 2019-07-03 00: 00:00 ABDIRASHID ALFORD [facility] Magnetic resonance imaging of brain without contrast 2019-06 00:00:00 ABDIRASHID ALFORD [facility] Computed tomography angiography of brain 2019-07-03 00:00:00 NADIA GARCIA [facility] CT angiography of neck 2019-07-03 00:00:00 NADIA SOW [facility] Ultrasound guidance for vascular access 2019-07-01 00:00:00 CELENA HINTON AM [facility] Sedate Initial > 5 Yrs 2019-07-01 00:00:00 MICHAEL BEACH [facility] INSERT OF TUNNEL VAD INTO CHEST SUBCU/FASCIA, PERC APPROACH 2019-07-01 00:00:00 [facility] INSERTION OF INFUSION DEV INTO SUP VENA CAVA, PERC APPROACH 2019-07-01 00:00:00 [facility] EXCISION OF STOMACH, ENDO, DIAGN 2019-06-30 00:00:00 [facility] EXCISION OF STOMACH, PYLORUS, ENDO, DIAGN 2019-06-30 00:00:00 [facility] US abdomen complete 2019-06-29 00:00:00 ABDIRASHID ALFORD [facility] Computed tomography of abdomen without contrast 2019-06-29 00:00 :00 [facility] PERFORMANCE OF URINARY FILTRATION, <6 HRS/DAY 2019-06-27 00:00:0 0 [facility] X-ray of chest, two views 2019-04-17 00:00:00 NATALIA GREEN [facility] Bone density scan<sup>1</sup> 2018-10-15 05:00:00 [facility] Mammogram<sup>2</sup> 2018-10-15 05:00:00 [facility] Diabetic Retinopathy Study 7 field stere oscopic fundus photography<sup>3, 4</sup> 2018-10-08 05:00:00 [facility] Colonoscopy<sup>5</sup> 2014-06-24 00:00:00 [place] Emergency department visit for the evalu ation and management of a patient, which requires these 3 sullivan components: A detailed history; A detailed examination; and Medical decision making of moderate complexity. Counseling and/or coordination of care with o 2013-04-01 05:00:00 [facility] Therapeutic, prophylactic, or diagnostic injection (specify substance or drug); subcutaneous or intramuscular 2013-04-01 05:00:00 [facility] Hysterectomy<sup>6</sup> 1979-06-24 00:00:00 [facility] [place] App[facility] Tubal ligation [facility] Appendectomy [facility] Chole[facility] Tubal ligation [facility] Plan of Care Planned Activity Planned Date Details Comments Source Future Scheduled Test 2020-02-23 00:00:00 INFLUENZA VACCINE (#1) [code = INFLUENZA VACCINE (#1)] [facility] Future Scheduled Test 2019-06-24 00:00:00 Medicare IPPE (WEL COME TO MEDICARE) [code = Medicare IPPE (WELCOME TO MEDICARE)] [facility] Future Scheduled Test 2018 00:00:00 PNEUMOCOCCAL 65+ Y RS (1 of 1 - [id number] PCV13) [code = PNEUMOCOCCAL 65+ YRS (1 of 1 - [id number] PCV13)] [facility] Future Scheduled Test 1955 00:00:00 Screening for anna gnant neoplasm of breast (procedure) [code = 762206389] [facility] Future Scheduled Test 1955 00:00:00 Screening for anna gnant neoplasm of colon (procedure) [code = 686108218] [facility] Instructions COVID-19: 09/07/2019 [facility] Instructions Constipation - Adult [facility] Instructions Pneumonia - Viral [facility] Encounters Start Date/Time End Date/Time Encounter Type Admission Type Attendi [facility] Care Department Encounter ID Source 2018-09-30 16:57:58 Outpatient [facility] [id number] 2020-03-17 10:00:59 2020-03-17 10:29:55 Office Visit Wagner Menchaca [facility] [id number] 2020-01-21 15:00:00 2020-01-21 15:30:00 Office Visit Wagner Menchaca [facility] [id number] 2020-01-05 13:20:00 2020-01-05 17:33:00 Departed Emergency Room 1 HIRAM [facility] [id number] [facility] 2019-11-17 16:05:00 2019-11-17 21:00:00 Departed Emergency Room 1 HIRAM [facility] [id number] [facility] 2019-09-04 11:14:00 2019-09-10 16:46:00 Discharged Inpatient 1 HIRAM [facility] [id number] [facility] 2019-08-28 09:40:00 2019-08-28 10:27:00 Departed Emergency Room [facility] [id number] [facility] 2019-08-25 16:32:00 2019-08-25 20:42:00 Departed Emergency Room 1 BAE EHSAN [facility] [id number] [facility] 2019-08-10 20:35:00 2019-08-12 20:45:00 Discharged Inpatient (obs) 1 JOSR SAENZ [facility] [id number] I [facility] 2019-07-01 05:10:00 2019-07-14 20:16:00 Discharged Inpatient 1 CELENA CHRISTENSEN [facility] Patients [facility] [id number] [facility] 2019-07-08 06:33:47 2019-07-09 23:59:59 Outpatient [facility] [id number] 2019-06-22 10:47:00 2019-06-22 15:49:00 Departed Emergency Room [facility] [id number] [facility] 2019-05-25 07:37:21 2019-05-26 23:59:59 Outpatient [facility] [id number] 2019-04-17 19:23:00 2019-04-20 10:33:00 Discharged Inpatient 1 MEENAKSHI GANDHI [facility] [id number] [facility] 2019-04-07 12:02:54 2019-04-08 23:59:59 Outpatient [facility] [id number] 2019-01-27 14:36:25 2019-01-28 23:59:59 Outpatient [facility] [id number] 2019-01-19 10:00:00 2019-01-19 23:59:59 Outpatient Ciara Cardoso [facility] [id number] 2019-01-01 16:57:00 2019-01-05 13:11:00 Discharged Inpatient 1 ZAINA GORDON [facility] [id number] [facility] 2018-11-28 16:00:00 2018-11-28 16:00:00 Outpatient Shelton Jackson [facility] [id number] 2018-10-27 16:23:00 2018-10-27 18:01:00 Departed Emergency Room [facility] [id number] [facility] 2018-10-20 11:00:00 2018-10-20 23:59:59 Outpatient Ciara Cardoso [facility] [id number] 2018-10-20 13:00:00 2018-10-20 13:00:00 Outpatient Ciara Cardoso [facility] [id number] 2018-10-15 14:05:00 2018-10-15 23:59:00 Outpatient Ciara Cardoso [facility] [id number] 2018-10-15 14:05:00 2018-10-15 14:05:00 Outpatient [facility] MED [id number] [facility] 2018-10-09 15:30:00 2018-10-09 23:59:59 Outpatient Ciara Cardoso [facility] [id number] 2018-09-30 15:13:00 2018-10-02 17:49:00 Discharged Inpatient (obs) 1 CHAR GORDONAHAM [facility] [id number] [facility] 2018-09-22 12:25:00 2018-09-22 23:59:00 Outpatient Ciara Cardoso [facility] [id number] 2018-09-22 12:25:00 2018-09-22 12:25:00 Outpatient [facility] MED [id number] [facility] 2018-09-19 11:00:00 2018-09-19 23:59:59 Outpatient Ciara Cardoso [facility] [id number] 2018-07-29 11:33:00 2018-07-29 14:15:00 Departed Emergency Room [facility] [id number] [facility] 2018-07-12 16:59:00 2018-07-18 10:56:00 Discharged Inpatient 1 ZAINA GORDON [facility] [id number] [facility] 2014-03-05 17:41:00 2014-03-06 03:48:00 Outpatient Diego Stanford [facility] [id number] 2013-07-24 13:30:00 2013-07-24 23:59:00 Outpatient [facility]IE [facility] [id number] [facility] Outpatient Guido - Zane 2013-04-01 09:45:00 2013-04-01 14:00:00 Outpatient MHIE [facility] [id number] [facility] 2013-04-01 09:45:00 2013-04-01 14:00:00 Outpatient MOHSEN CONNOLLY [id number] [facility] 2013-04-01 09:45:00 2013-04-01 14:00:00 Outpatient MOHSEN CONNOLLY [id number] [facility] 2013-04-01 09:45:00 2013-04-01 14:00:00 Outpatient MOHSEN RUPALI [id number] [facility] Results Test Description Test Time Test Comments Results Result Comments Source CT BRAIN WO 2020-04-08 15:25:00 [facility] 1955 Sex: [place] [address] Patient Name: DEO ESCUDERO MR #: [id number] : 1955 Age/Sex: 65/F Req #: [id number] [facility] Physician: Ordered by: Batsheva Schaeffer MD Report #: [id number] Location: ER Room/Bed: Procedure: [id number] CT/CT BRAIN WO Exam Date: 04/08/20 Exam Time: 1440 REPORT STATUS: Signed EXAMINATION: Head CT HISTORY: 65-year-old female with altered mental status, right hand numbness COMPARISON: Head CT 01/05/2020 TECHNIQUE: Helical axial images of the head were obtained. Reformatted coronal and sagittal images from the axial data. Dose modulation, iterative reconstruction, and/or weight based adjustment of the mA/kV was utilized to reduce the radiation dose to as low as reasonably achievable. FINDINGS: Parenchyma: Unchanged nonspecific moderate confluent chronic microvascular ischemic disease. 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 Chronic lacunar infarcts in the right striato- capsular region, bilateral subinsular cortices, thalami and putamina. No mass or hemorrhage. No CT evidence of acute territorial vascular insult. Extra-axial spaces:No abnormal density. No extra-axial fluid collections Brain volume: Normal for age. Ventricles: No hydrocephalus or displacement. Arteries: No density suggestive of thrombus. Dural sinuses: No abnormal density. Foramen magnum: No mass, Chiari malformation, or basilar invagination. Sella: No obvious mass. Paranasal/mastoid sinuses: Imaged portions unremarkable. Skull/Scalp: No lytic or blastic lesions. No fractures. IMPRESSION: 1. No acute intracranial hemorrhage or cortical infarcts. 2. Unchanged left temporoparietal/MCA chronic infarct compared to head CT of 01/05/2020. 3. Moderate chronic microvascular ischemic changes and small chronic lacunar infarcts are also unchanged. Signed by: Dr. Thomas Perez M.D. on 04/08/2020 3:43 PM Dictated By: THOMAS PEREZ MD 1543 Transcribed By: SCAR on 04/08/20 154 COPY TO: BATSHEVA SCHAEFFER MD CHEST SINGLE (PORTABLE) 2020-04-08 15:04:00 [facility] 1955 Sex: F [place] [address] Patient Name: DEO ESCUDERO MR #: [id number] : 1955 Age/Sex: 65/F Req #: [id number] Adm Physician: Ordered by: Batsheva Schaeffer MD Report #: [id number] Location: ER Room/Bed: Procedure: [id number] DX/CHEST SINGLE (PORTABLE) Exam Date: 04/08/20 Exam Time: 1440 REPORT STATUS: Signed EXAM: CHEST SINGLE (PORTABLE) DATE: 04/08/2020 2:40 PM INDICATION: Altered mental status COMPARISON: 11/17/2019 FINDINGS/IMPRESSION: Right IJ tunneled dialysis catheter identified in stable position. The trachea is midline. There is minimal left basilar opacity suggestive of atelectasis. There is no evidence for large focal consolidation, pneumothorax, or significant pleural effusion. The cardiomediastinal silhouette appears magnified by technique but otherwise unremarkable.. Atherosclerotic calcifications are noted within the thoracic aorta. No acute osseous abnormalities identified. Signed by: Dr. Popeye Navarro MD on 04/08/2020 3:07 PM Dictated By: POPEYE NAVARRO MD 4718 Transcribed By: SCAR on 04/08/205 COPY TO: BATSHEVA SCHAEFFER MD ECG 12 lead 2020-03-05 08:24:49 Interface, E xternal Ris In - 03/05/2020 8:24 AM CDTVentricular Rate 87 BPMAtrial Rate 87 BPMP-R Interval 194 msQRS Duration 82 msQ-T Interval 412 msQTC Calculation(Yung) 495 msP [place] 62 degreesR [place] 45 degreesT [place] -5 degreesNormal sinus rhythmNormal ECGNo previous ECGs availableConfirmed by MD STEFANIA, EVITA Chappell ([id number]) on 03/05/2020 8:24:45 AM [facility] POC-Potassium 2020-03-04 13:21:00 Test Item POC-Potassium (test code = 1540) 3.2 meq/L 3.6-5.5 L : TESTED AT [address], [address]: Capacity Analyst/Jack Frame Tender ID = [id number] for BAGARNOLD DONOHUE Lab Interpretation (test code = 19042-9) Abnormal [facility]PO[facility]-[id number] 13:21:00* Test Item Value Reference Range Interpretation Comments POC-POTASSIUM (BEAKER) (test code = 1540) 3.2 meq/L 3.6-5.5 L : TESTED AT [address], [address]: Capacity Analyst/Jack Frame Tender ID = [id number] for BAGARNOLD DONOHUE CBC with platelet count + automated [id number] 09:00:00* Test Item Value Reference Range Interpretation Comments WBC (test code = 6690-2) 10.3 3.5- 10.5 K/L RBC (test code = 789-8) 3.99 3.93- 5.22 M/L MCHC (test code = 786-4) 31.6 32.2- 35.5 GM/DL L Hematocrit (test code = 4544-3) 34.8 % 34.1-44.9 MCV (test code = 787-2) 87.2 fL 79.4-94.8 MCH (test code = 785-6) 27.6 pg 25.6-32.2 RDW (test code = 788-0) 17.0 % 11.7-14.4 H Platelets (test code = 777-3) 312 150- 450 K/CU MM MPV (test code = 34937-9) 9.8 fL 9.4-12.3 nRBC (test code = 413) 0 0- 0 /100 WBC % Neutros (test code = 429) 73 % % Lymphs (test code = 430) 17 % % Monos (test code = 431) 5 % % Eos (test code = 432) 4 % % Baso (test code = 437) 1 % # Neutros (test code = 670) 7.52 1.56- 6.13 K/L H # Lymphs (test code = 414) 1.71 1.18- 3.74 K/L # Monos (test code = 415) 0.56 0.24- 0.36 K/L H # Eos (test code = 416) 0.37 0.04- 0.36 K/L H # Baso (test code = 417) 0.11 0.01- 0.08 K/L H Immature Granulocytes-Relative (test code = 2801) 1 % 0-1 Lab Interpretation (test code = 15106-3) Abnormal [facility] W/PLT COUNT & AUTO KALZLJFZYOMS1235-76-26 09:00:00* Test Item Value Reference Range Interpretation Comments WHITE BLOOD CELL COUNT (BEAKER) (test code = 775) 10.3 K/ L 3.5- 10.5 RED BLOOD CELL COUNT (BEAKER) (test code = 761) 3.99 M/ L 3.93-5 .22 HEMOGLOBIN (BEAKER) (test code = 410) 11.0 GM/DL 11.2-15.7 L HEMATOCRIT (BEAKER) (test code = 411) 34.8 % 34.1-44.9 MEAN CORPUSCULAR VOLUME (BEAKER) (test code = 753) 87.2 fL 79. 4-94.8 MEAN CORPUSCULAR HEMOGLOBIN (BEAKER) (test code = 751) 27.6 pg 25.6-32.2 MEAN CORPUSCULAR HEMOGLOBIN CONC (BEAKER) (test code = 752) 31.6 GM/DL 32.2-35.5 L RED CELL DISTRIBUTION WIDTH (BEAKER) (test code = 412) 17.0 % 11.7-14.4 H PLATELET COUNT (BEAKER) (test code = 756) 312 K/CU MM 150-450 MEAN PLATELET VOLUME (BEAKER) (test code = 754) 9.8 fL 9.4-12 .3 NUCLEATED RED BLOOD CELLS (BEAKER) (test code = 413) 0 /100 WBC 0 -0 NEUTROPHILS RELATIVE PERCENT (BEAKER) (test code = 429) 73 % LYMPHOCYTES RELATIVE PERCENT (BEAKER) (test code = 430) 17 % MONOCYTES RELATIVE PERCENT (BEAKER) (test code = 431) 5 % EOSINOPHILS RELATIVE PERCENT (BEAKER) (test code = 432) 4 % BASOPHILS RELATIVE PERCENT (BEAKER) (test code = 437) 1 % NEUTROPHILS ABSOLUTE COUNT (BEAKER) (test code = 670) 7.52 K/ L 1.56-6.13 H LYMPHOCYTES ABSOLUTE COUNT (BEAKER) (test code = 414) 1.71 K/ L 1.18-3.74 MONOCYTES ABSOLUTE COUNT (BEAKER) (test code = 415) 0.56 K/ L 0. 24-0.36 H EOSINOPHILS ABSOLUTE COUNT (BEAKER) (test code = 416) 0.37 K/ L 0.04-0.36 H BASOPHILS ABSOLUTE COUNT (BEAKER) (test code = 417) 0.11 K/ L 0. 01-0.08 H IMMATURE GRANULOCYTES-RELATIVE PERCENT (BEAKER) (test code = 2801) 1 % 0-1 Type and screen, rdetecyfm0023-08-01 08:46:00* Test Item Value Reference Range Interpretation Comments ABO/RH AUTOMATED (BEAKER) (test code = 2260) O POSITIVE Ab Scrn (test code = 890-4) NEGATIVE [facility] [id number] 08:17:00* Test Item Value Reference Range Interpretation Comments Sodium (test code = 2951-2) 136 meq/L 136-145 Potassium (test code = 2823-3) 2.7 meq/L 3.5-5.1 L Chloride (test code = 5-0) 100 meq/L 98-107 CO2 (test code = 2027-9) 28 meq/L 22-29 BUN (test code = 3094-0) 17 mg/dL 7-21 Creatinine (test code = 2160-0) 2.18 mg/dL 0.57-1.25 H Glucose (test code = 2345-7) 93 mg/dL 70-105 Calcium (test code = 06139-8) 8.7 mg/dL 8.4-10.2 EGFR (test code = 67900-3) 22 mL/min/1.73 sq m ESTIMATED GFR IS NOT ACCURATE CREATININE CLEARANCE IN PREDICTING GLOMERULAR FILTRATION RATE. ESTIMATED GFR IS NOT APPLICABLE FOR DIALYSIS PATIENTS. ALBERTO (test code = ALBERTO) Capacity Analyst JORI Nicole Lab Interpretation (test code = 20189-6) Abnormal [facility]OLIC [id number] 08:17:00* Test Item Value Reference Range Interpretation Comments SODIUM (BEAKER) (test code = 381) 136 meq/L 136-145 POTASSIUM (BEAKER) (test code = 379) 2.7 meq/L 3.5-5.1 L CHLORIDE (BEAKER) (test code = 382) 100 meq/L 98-107 CO2 (BEAKER) (test code = 355) 28 meq/L 22-29 BLOOD UREA NITROGEN (BEAKER) (test code = 354) 17 mg/dL 7-21 CREATININE (BEAKER) (test code = 358) 2.18 mg/dL 0.57-1.25 H GLUCOSE RANDOM (BEAKER) (test code = 652) 93 mg/dL 70-105 CALCIUM (BEAKER) (test code = 697) 8.7 mg/dL 8.4-10.2 EGFR (BEAKER) (test code = 1092) 22 mL/min/1.73 sq m ESTIMATED GFR IS NOT ACCURATE CREATININE CLEARANCE IN PREDICTING GLOMERULAR FILTRATION RATE. ESTIMATED GFR IS NOT APPLICABLE FOR DIALYSIS PATIENTS. Capacity Analyst JORI LICONA VGtchiidrq9458-84-19 08:13:00* Test Item Value Reference Range Interpretation Comments Magnesium (test code = 33840-2) 1.8 mg/dL 1.6-2.6 ALBERTO (test code = ALBERTO) Capacity Analyst JORI Nicole Lab Interpretation (test code = 77582-2) Normal [facility]osphorus2020-09-[facility] 08:13:00* Test Item Value Reference Range Interpretation Comments Phosphorus (test code = 2777-1) 2.4 mg/dL 2.3-4.7 ALBERTO (test code = ALBERTO) Capacity Analyst JORI Nicole Lab Interpretation (test code = 68519-6) Normal [facility]PHOSPHORUS2020-09-11 08:13:00* Test Item Value Reference Range Interpretation Comments PHOSPHORUS (BEAKER) (test code = 604) 2.4 mg/dL 2.3-4.7 Capacity Analyst JORI LICONA [id number] 08:13:00* Test Item Value Reference Range Interpretation Comments MAGNESIUM (BEAKER) (test code = 627) 1.8 mg/dL 1.6-2.6 Capacity Analyst ID - LIVAN QUINTEROUXGSF-OINCXLFPH0215-55-11 07:13:00* Test Item Value Reference Range Interpretation Comments POC-POTASSIUM (BEAKER) (test code = 1540) 2.6 meq/L 3.6-5.5 LL : TESTED AT [facility] [address], [address]: Capacity Analyst/Jack Frame Tender ID = [id number] for ARNOLD MARTINEZ [id number] 07:05:00* Test Item Value Reference Range Interpretation Comments PTT (test code = 63131-7) 31.4 22.5- 36.0 seconds Lab Interpretation (test code = 54237-4) Normal [facility]APTT2020-09-11 07:05:00* Test Item Value Reference Range Interpretation Comments PARTIAL THROMBOPLASTIN TIME (BEAKER) (test code = 760) 31.4 seconds 22.5-36.0 Prothrombin time/[id number] 07:04:00* Test Item Value Reference Range Interpretation Comments Protime (test code = 5902-2) 12.9 11.9- 14.2 seconds INR (test code = 6301-6) 1.00 <=5.90 ALBERTO (test code = ALBERTO) Effective 11/19/2018: PT Refe rence Range ChangeNew: 11.9- 14.2 Previous: 11.7-14.7 RECOMMENDED COUMADIN/WARFARIN INR THERAPY RANGESSTANDARD DOSE: 2.0-3.0 Includes: PROPHYLAXIS for venous thrombosis, sys temic embolization; TREATMENT for venous thrombosis and/or pulmonary embolus.HIGH RISK: Target INR is 2.5-3.5 for patients wiht mechanical heart valves. Lab Interpretation (test code = 03118-0) Normal [facility] HospitalPROTHROMBIN TIME/[id number] 07:04:00* Test Item Value Reference Range Interpretation Comments PROTIME (BEAKER) (test code = 759) 12.9 seconds 11.9-14.2 INR (BEAKER) (test code = 370) 1.00 <=5.90 Effective 11/19/2018: PT Reference Range ChangeNew: 11.9-14.2 Previous: 11.7-14. 7RECOMMENDED COUMADIN/WARFARIN INR THERAPY RANGESSTANDARD DOSE: 2.0-3.0 Include s: PROPHYLAXIS for venous thrombosis, systemic embolization; TREATMENT for venou s thrombosis and/or pulmonary embolus.HIGH RISK: Target INR is 2.5-3.5 for patie nts wiht mechanical heart valves.POC-Glucose ngxnx1451-78-37 07:03:00* Test Item Value Reference Range Interpretation Comments POC-Glucose Meter (test code = 1538) 91 mg/dL 70-110 : TESTED AT [facility] [address], [address]: Capacity Analyst/Jack Frame Tender ID = [id number] for ARNOLD MARTINEZ Lab Interpretation (test code = 01890-8) Normal [facility] HospitalPOCT-GLUCOSE [id number] 07:03:00* Test Item Value Reference Range Interpretation Comments POC-GLUCOSE METER (BEAKER) (test code = 1538) 91 mg/dL 70-110 : TESTED AT [address], [address]: Capacity Analyst/Jack Frame Tender ID = [id number] for IVONOLARNOLD SARS-CoV2/RT-PCR ([facility])2020-03-03 21:15:00* Test Item Value Reference Range Interpretation Comments SARS-COV2/RT-PCR (test code = 48719-5) Negative N ot Detected, Negative, See external report for linked test SARS-COV-2 PERFORMING LAB (test code = 67372-6) [facility] IRVIN ALBERTO (test code = ALBERTO) Negative result for this jake t determines that SARS-CoV-2 RNA was not present in the specimen above the Limit of Detection (LOD). However, Negative results do not preclude SARS-CoV-2 infection and should not be used as the sole basis for treatment or patient management decisions. Negative results must be combined with clinical observations, patient history, and epidemiological information. A false negative result may occur if a specimen is improperly collected, transported or handled. A false negative result should be considered if patient's recent exposures or clinical presentation indicate that COVID-19 (SARS-CoV-2) is likely and diagnostic tests for other causes of illness are negative. Re-testing should be considered in cases of suspected false negatives. The limit of detection for this assay is 800 copies/mL. This SARS CoV-2 test is a real-time RT-PCR test intended for the qualitative detection of nucleic acid from SARS-CoV-2 in a nasopharyngeal swab specimen collected from individuals suspected of COVID-19 by their healthcare provider. This test has not been Food and Drug Administration (FDA) cleared or approved. This is a modified version of an approved Emergency Use Authorization (EUA) and is in the process of review by the FDA. Once authorized by the FDA, the issued EUA will be effective until the declaration that circumstances exist justifying the authorization of the emergency use of in vitro diagnostic tests for detection and/or diagnosis of COVID-19 is terminated under Section 564(b)(2) of the Act or the EUA is revoked under Section 564(g) of the Act. Fact Sheet for Healthcare Providers:https://www.[employer]/sites/default/files/product/documents/Fact_Shee o_VO_Pbrmcsmlc_Uqci_CTXE-RaM-4.pdf Fact Sheet for Healthcare Patients:https://www.[employer]/sites/default/files/pro duct/documents/Adfx_Fadbe_Tqufjnvc_Xlxd_YGYC-JtM-9.pdf Performing Laboratory:[facility] [place] [address] [facility]OV[facility] ([facility])2020-03-03 21:15:00* Test Item Value Reference Range Interpretation Comments SARS-COV2/RT-PCR (test code = 6640079) Negative N ot Detected, Negative, See external report for linked test SARS-COV-2 PERFORMING LAB (test code = 1780322) [facility] IRVIN Negative result for this test determines that SARS-CoV-2 RNA was not present in the specimen above the Limit of Detection (LOD). However, Negative results do n ot preclude SARS-CoV-2 infection and should not be used as the sole basis for tr eatment or patient management decisions. Negative results must be combined with clinical observations, patient history, and epidemiological information. A false negative result may occur if a specimen is improperly collected, transported or handled. A false negative result should be considered if patient's recent expo sures or clinical presentation indicate that COVID-19 (SARS-CoV-2) is likely and diagnostic tests for other causes of illness are negative. Re-testing should be considered in cases of suspected false negatives.The limit of detection for this assay is 800 copies/mL.This SARS CoV-2 test is a real-time RT-PCR test intended for the qualitative detection of nucleic acid from SARS-CoV-2 in a nasopharyn geal swab specimen collected from individuals suspected of COVID-19 by their [facility] provider.This test has not been Food and Drug Administration (FDA) clear ed or approved. This is a modified version of an approved Emergency Use Authori zation (EUA) and is in the process of review by the FDA. Once authorized by [facility] FDA, the issued EUA will be effective until the declaration that circumstances exist justifying the authorization of the emergency use of in vitro diagnostic tests for detection and/or diagnosis of COVID-19 is terminated under Section 564 (b)(2) of the Act or the EUA is revoked under Section 564(g) of the Act.Fact She et for Healthcare Providers:https://www.[employer]/sites/default/files/product/d ocuments/Ezzc_Nnqor_OZ_Rcqsxamqb_Psdr_TZEJ-JmF-1.pdfFact Sheet for Healthcare [place]:https://www.[employer]/sites/default/files/product/documents/Fact_Sheet_P jqbpgda_Zmnw_QHNY-HsJ-9.pdfPerforming Laboratory:[facility] [address] [place] [address].[place], [place] [address]PDQVQ METABOLIC [id number] 15:35:00* Test Item Value Reference Range Interpretation Comments SODIUM (BEAKER) (test code = 381) 139 meq/L 136-145 POTASSIUM (BEAKER) (test code = 379) 2.9 meq/L 3.5-5.1 L CHLORIDE (BEAKER) (test code = 382) 101 meq/L 98-107 CO2 (BEAKER) (test code = 355) 31 meq/L 22-29 H BLOOD UREA NITROGEN (BEAKER) (test code = 354) 9 mg/dL 7-21 CREATININE (BEAKER) (test code = 358) 1.35 mg/dL 0.57-1.25 H GLUCOSE RANDOM (BEAKER) (test code = 652) 114 mg/dL 70-105 H CALCIUM (BALA) (test code = 697) 8.7 mg/dL 8.4-10.2 EGFR (BALA) (test code = 1092) 39 mL/min/1.73 sq m ESTIMATED GFR IS NOT ACCURATE CREATININE CLEARANCE IN PREDICTING GLOMERULAR FILTRATION RATE. ESTIMATED GFR IS NOT APPLICABLE FOR DIALYSIS PATIENTS. Capacity Analyst ID - [id number] 15:14:00* Test Item Value Reference Range Interpretation Comments Hemoglobin (test code = 786-4) 11.5 11.2- 15.7 GM/DL ALBERTO (test code = ALBERTO) Capacity Analyst ID - [id number] Lab Interpretation (test code = 22159-9) Normal [facility]HEMOGLOBIN2020-09-10 15:14:00* Test Item Value Reference Range Interpretation Comments HEMOGLOBIN (BALA) (test code = 410) 11.5 GM/DL 11.2-15.7 Capacity Analyst ID - [id number] time (PT) in platelet poor plasma by coagulation [id number] 15:20:00* Test Item Value Reference Range Interpretation Comments Prothrombin Time (test code = 5902-2) 12.2 11.9-14.5 [facility] TexasINR in Platelet poor plasma by Coagulation vuveq7744-68-72 15:20:00* Test Item Value Reference Range Interpretation Comments Prothromb Time International Ratio (test code = 6301-6) 0.86 Oral Anticoagulant Therapy INR Values:1. Low Intensity Therapy 1.5 - 2.02 . Moderate Intensity Therapy 2.0 - 3.03. High Intensity Therapy(1) 2.5 - 3. 54. High Intensity Therapy(2) 3.0 - 4.05. Panic Value INR > 5.0 [facility] TexasActivated partial thromboplastin time (aPTT) in platelet poor plasma by coagulation xcmyh1895-63-72 15:20:00* Test Item Value Reference Range Interpretation Comments Activated Partial Thromboplast Time (test code = 98423-9) 73.6 23.8-35.5 [facility] TexasCT ABDOMEN/PELVIS [id number] 15:19:00 [facility] [address] [place] [address] Patient Name: DEO ESCUDERO MR #: [id number] : 1955 Age/Sex: 64/F Req #: [id number] Adm Physician: Ordered by: MEENAKSHI GANDHI MD Report #: [id number] Location: ER Room/Bed: Procedure: [id number] CT/CT ABDOMEN/PE LVIS WO Exam Date: 01/05/20 Exam Time: 1430 REPORT STATUS: Signed EXAM: CT Chest, Ab domen and Pelvis WITHOUT intravenous contrast INDICATION: Pneumonia, weak ness, nausea vomiting COMPARISON: CT abdomen and pelvis of 11/17/2019 T ECHNIQUE: The chest, abdomen and pelvis were scanned utilizing a multidetector helical scanner from the thoracic inlet to the pubic symphysis without admini stration of IV contrast. Coronal and sagittal reformations were obtained. IV CONTRAST: None ORAL CONTRAST: Water COMPLICATIONS: None RADIATION DOSE: Total DLP: 2058 mGy*cm Dose modulation, iterat francois reconstruction, and/or weight based adjustment of the mA/kV was utilized t o reduce the radiation dose to as low as reasonably achievable. FINDINGS : LINES/ TUBES: None. LUNGS AND AIRWAYS: The central airways are patent. Multifocal lower lobe predominant groundglass and consolidative opacities. PLEURA: The pleural spaces are clear. HEART AND MEDIASTINUM: The thyroid gland is normal. No supraclavicular, axillary lymphadenopathy. Prominent m ediastinal lymph nodes borderline for size criteria for lymphadenopathy. No hi lar lymphadenopathy. The heart is not enlarged. Small pericardial effusion. HEPATOBILIARY: No focal liver lesions. Status post cholecystectomy. SP MANGO: No splenomegaly. PANCREAS: No focal masses or ductal dilatation. ADRENALS: No adrenal nodules. KIDNEYS/URETERS: No hydronephrosis, stones, or solid mass lesions. PELVIC ORGANS/BLADDER: Status post hysterectomy. ANNIE TONEUM / RETROPERITONEUM: No free air or fluid. LYMPH NODES: No lymphadenopath y. VESSELS: Atherosclerotic calcifications of the nonaneurysmal abdominal aort a and major branches. GI TRACT: Distended rectum with mild rectal wall th ickening. Retained contrast material in the rectum and sigmoid colon. No other abnormal bowel wall thickening. No bowel obstruction. BONES AND SOFT TIS SUES: No acute osseous injury. No suspicious lytic or blastic lesions. IM PRESSION: Multifocal pneumonia. Distended rectum filled with stool and m ild rectal wall thickening can be seen in the setting of constipation and/or p roctitis. Signed by: Johnathan Headley MD on 01/05/2020 3:26 PM Dictated By : JOHNATHAN HEADLEY MD 1526 Trans cribed By: SCAR on 01/05/20 1526 COPY TO: MEENAKSHI GANDHI MD CT CHEST [id number] 15:19:00 [place] [address] Patient Name: DEO ESCUDERO MR #: [id number] : 1955 Age/Sex: 64/F Req #: [id number] Adm Physician: Ordered by: MEENAKSHI GANDHI MD Report #: [id number] Location: ER Room/Bed: Procedure: [id number] CT/CT CHEST WO Exam Date: 01/05/20 Exam Time: 1430 REPORT STATUS: Signed EXAM: CT Chest, Abdomen and Pelvis WITHOUT intravenous contrast INDICATION: Pneumonia, weakness, [place] vomiting COMPARISON: CT abdomen and pelvis of 11/17/2019 TECHNIQUE: The chest, abdomen and pelvis were scanned utilizing a multidetector helical scanner from the thoracic inlet to the pubic symphysis without administration of IV contrast. Coronal and sagittal reformations were obtained. IV CONTRAST: None ORAL CONTRAST: Water COMPLICATIONS: None RADIATION DOSE: Total DLP: 2058 mGy*cm Dose modulation, iterative recon struction, and/or weight based adjustment of the mA/kV was utilized to reduce the radiation dose to as low as reasonably achievable. FINDINGS: LINES / TUBES: None. LUNGS AND AIRWAYS: The central airways are patent. Multifoc al lower lobe predominant groundglass and consolidative opacities. PLEU RA: The pleural spaces are clear. HEART AND MEDIASTINUM: The thyroid gland is normal. No supraclavicular, axillary lymphadenopathy. Prominent mediastina l lymph nodes borderline for size criteria for lymphadenopathy. No hilar lymph adenopathy. The heart is not enlarged. Small pericardial effusion. HEPA TOBILIARY: No focal liver lesions. Status post cholecystectomy. SPLEEN: No splenomegaly. PANCREAS: No focal masses or ductal dilatation. ADRENALS : No adrenal nodules. KIDNEYS/URETERS: No hydronephrosis, stones, or solid mas s lesions. PELVIC ORGANS/BLADDER: Status post hysterectomy. PERITONEUM / RETROPERITONEUM: No free air or fluid. LYMPH NODES: No lymphadenopathy. VESS ELS: Atherosclerotic calcifications of the nonaneurysmal abdominal aorta and m ajor branches. GI TRACT: Distended rectum with mild rectal wall thickening. Retained contrast material in the rectum and sigmoid colon. No other abnormal bowel wall thickening. No bowel obstruction. BONES AND SOFT TISSUES: No acute osseous injury. No suspicious lytic or blastic lesions. IMPRESSION: Multifocal pneumonia. Distended rectum filled with stool and mild rectal wall thickening can be seen in the setting of constipation and/or proctitis. Signed by: Johnathan Headley MD on 01/05/2020 3:26 PM Dictated By: JOHNATHAN HEADLEY MD 1526 Transcribed By: SCAR on 01/05/20 1526 COPY TO: MEENAKSHI GANDHI MD CT BRAIN WO 2020-01-05 14:57:00 [place] [address] Patient Name: DEO ESCUDERO MR #: [id number] : 1955 Age/Sex: 64/F Req #: [id number] Adm Physician: Ordered by: MEENAKSHI GANDHI MD Report #: [id number] Location: ER Room/Bed: Procedure: [id number] CT/CT BRAIN WO Exam Date: 01/05/20 Exam Time: 1430 REPORT STATUS: Signed Examination: CT head without contrast Clinical Indication: Weakness. Nausea and vomiting.. Technique: T ransaxial noncontrast images from the skull base through the vertex were obtai edilberto. Sagittal and coronal reformatted images were done. Dose modulation, itera tive reconstruction, and/or weight based adjustment of the mA/kV was utilized to reduce the radiation dose to as low as reasonably achievable. Comparison : Multiple head CTs with the most recent performed September 02, 2019. Findings : Motion artifact. Scalp: No abnormalities. Bones: Intact. No fracture s. No blastic or lytic lesions. Brain sulci: Mild volume loss for patient 's age. Ventricles: No hydrocephalus. Extra-axial space: No abnormalit ies. Parenchyma: Again demonstrated are patchy and confluent areas of lo w-attenuation within subcortical and periventricular white matter, nonspecific , but could represent microvascular ischemic disease. 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 Chronic lacunar infarcts in the ri ght straighter capsular region, bilateral subinsular cortices, thalami and put maximo. No masses, hemorrhage, or acute cortical based vascular insults. S uprasellar region: No abnormalities. Craniocervical junction: The foramen magn um is patent. No Chiari one malformation. Incidental findings: Athero sclerotic calcification of the cavernous and supraclinoid internal carotid art eries. Impression: 1. Despite limitation, no new or acute intracrania l abnormality when compared to prior head CT performed September 02, 2019. 2. Unchanged chronic microvascular ischemic change. 3. 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 Signed by: Dr. Lexi Leung M.D. on 01/05/2020 3:01 PM Dictated By: LEXI WINN MD 1 501 Transcribed By: SCAR on 01/05/20 1501 COPY TO: MEENAKSHI GANDHI MD Blood leukocytes automated count (number/volume)2020-01-05 14:05:00* Test Item Value Reference Range Interpretation Comments White Blood Count (test code = 6690-2) 5.73 4.8-10.8 [facility] TexasBlood erythrocytes automated count (number/volume)2020-01-05 14:05:00* Test Item Value Reference Range Interpretation Comments Red Blood Count (test code = 789-8) 4.29 3.6-5.1 [facility] TexasBlood hemoglobin measurement (moles/volume)2020-01-05 14:05:00* Test Item Value Reference Range Interpretation Comments Hemoglobin (test code = 23621-5) 12.1 12.0-16.0 [facility] TexasAutomated blood hematocrit (volume fraction)2020-01-05 14:05:00* Test Item Value Reference Range Interpretation Comments Hematocrit (test code = 4544-3) 37.9 34.2-44.1 [facility] TexasAutomated erythrocyte mean corpuscular lyabjc5776-18-69 14:05:00* Test Item Value Reference Range Interpretation Comments Mean Corpuscular Volume (test code = 787-2) 88.3 81-99 [facility] TexasAutomated erythrocyte mean corpuscular hemoglobin (mass per erythrocyte)2020-01-05 14:05:00* Test Item Value Reference Range Interpretation Comments Mean Corpuscular Hemoglobin (test code = 785-6) 28.2 28-32 [facility] TexasAutomated erythrocyte mean corpuscular hemoglobin concentration measurement (mass/volume)2020-01-05 14:05:00* Test Item Value Reference Range Interpretation Comments Mean Corpuscular Hemoglobin Concent (test code = 786-4) 31.9 31-35 [facility] TexasRDW WhoXa-Cwx5114-83-14 14:05:00* Test Item Value Reference Range Interpretation Comments Red Cell Distribution Width (test code = 94345-5) 14.1 11.7 -14.4 [facility] TexasAutomated blood platelet count (count/volume)2020-01-05 14:05:00* Test Item Value Reference Range Interpretation Comments Platelet Count (test code = 777-3) 278 140-360 [facility] TexasAutomated blood segmented neutrophil count as percentage of total aoqbquzeek3210-32-17 14:05:00* Test Item Value Reference Range Interpretation Comments Neutrophils (%) (Auto) (test code = 90771-3) 77.4 38.7-80.0 [facility] TexasAutomated blood lymphocyte count as percentage ot total enkvfuvdgf1866-02-47 14:05:00* Test Item Value Reference Range Interpretation Comments Lymphocytes (%) (Auto) (test code = 736-9) 13.4 18.0-39.1 [facility] TexasAutomated blood monocyte count as percentage of total uhivfrkppv8203-91-19 14:05:00* Test Item Value Reference Range Interpretation Comments Monocytes (%) (Auto) (test code = 5905-5) 7.0 4.4-11.3 [facility] TexasAutomated blood eosinophil count as percentage of total mywvdcnipd3000-70-92 14:05:00* Test Item Value Reference Range Interpretation Comments Eosinophils (%) (Auto) (test code = 713-8) 0.7 0.0-6.0 [facility] TexasAutomated blood basophil count as percentage of total etukyijdon2588-71-15 14:05:00* Test Item Value Reference Range Interpretation Comments Basophils (%) (Auto) (test code = 706-2) 0.3 0.0-1.0 [facility] TexasFluoroscopic procedure less than one hour eoxxsxai9303-21-54 14:05:00* Test Item Value Reference Range Interpretation Comments IM GRANULOCYTES % (test code = IM GRANULOCYTES %) 1.2 0.0- 1.0 [facility] TexasAutomated blood neutrophil count 2020-01-05 14:05:00* Test Item Value Reference Range Interpretation Comments Neutrophils # (Auto) (test code = 751-8) 4.4 2.1-6.9 [facility] TexasBlood lymphocytes count (number/volume) 2020-01-05 14:05:00* Test Item Value Reference Range Interpretation Comments Lymphocytes # (Auto) (test code = 23704-7) 0.8 1.0-3.2 [facility] TexasBlood monocytes automated count (number/volume)2020-01-05 14:05:00* Test Item Value Reference Range Interpretation Comments Monocytes # (Auto) (test code = 742-7) 0.4 0.2-0.8 [facility] TexasAutomated blood eosinophil count 2020-01-05 14:05:00* Test Item Value Reference Range Interpretation Comments Eosinophils # (Auto) (test code = 711-2) 0.0 0.0-0.4 [facility] TexasAutomated blood basophil count (count/volume)2020-01-05 14:05:00* Test Item Value Reference Range Interpretation Comments Basophils # (Auto) (test code = 704-7) 0.0 0.0-0.1 [facility] TexasFluoroscopic procedure less than one hour vrifqvzu5969-88-85 14:05:00* Test Item Value Reference Range Interpretation Comments Absolute Immature Granulocyte (auto (jake t code = Absolute Immature Granulocyte (auto) 0.07 0-0.1 [facility] TexasUrine color fwlrcxfclwzgo5593-04-80 14:05:00* Test Item Value Reference Range Interpretation Comments Urine Color (test code = 5778-6) YELLOW YELLOW [facility] TexasUrine sbcxdvo8483-81-01 14:05:00* Test Item Value Reference Range Interpretation Comments Urine Clarity (test code = 62317-1) SL CLOUDY CLEAR [facility] by Test strip 2020-01-05 14:05:00* Test Item Value Reference Range Interpretation Comments Urine Specific [place] (test code = 5811-5) 1.025 1.010-1.02 5 [facility] TexasUrine pH measurement by automated test nmnkr3766-67-32 14:05:00* Test Item Value Reference Range Interpretation Comments Urine pH (test code = 66515-1) 6 5-7 [facility] TexasUrine leukocyte esterase detection by kgpikexh3528-40-14 14:05:00* Test Item Value Reference Range Interpretation Comments Urine Leukocyte Esterase (test code = 5799-2) TRACE NEGATIVE [facility] TexasUrine nitrite lkdmsdbfp5245-25-60 14:05:00* Test Item Value Reference Range Interpretation Comments Urine Nitrite (test code = 34591-5) NEGATIVE NEGATIVE [facility] TexasUrine protein measurement by test strip (mass/volume)2020-01-05 14:05:00* Test Item Value Reference Range Interpretation Comments Urine Protein (test code = 5804-0) >=300 NEGATIVE [facility] TexasUrine glucose hjfidbwmm6510-09-80 14:05:00* Test Item Value Reference Range Interpretation Comments Urine Glucose (UA) (test code = 2349-9) NEGATIVE NEGATIVE [facility] TexasUrine ketones detection by automated test ebikp2053-62-84 14:05:00* Test Item Value Reference Range Interpretation Comments Urine Ketones (test code = 37880-0) TRACE NEGATIVE [facility] TexasUrine urobilinogen measurement by test strip (mass/volume)2020-01-05 14:05:00* Test Item Value Reference Range Interpretation Comments Urine Urobilinogen (test code = 21602-1) 0.2 0.2-1 [facility] TexasUrine total bilirubin measurement (mass/volume)2020-01-05 14:05:00* Test Item Value Reference Range Interpretation Comments Urine Bilirubin (test code = 1978-6) NEGATIVE NEGATIVE [facility] TexasUrine erythrocytes xvptsgxzw5911-98-87 14:05:00* Test Item Value Reference Range Interpretation Comments Urine Blood (test code = 41096-1) TRACE NEGATIVE [facility] TexasAutomated urine sediment leukocyte count by microscopy (number/high power field)2020-01-05 14:05:00* Test Item Value Reference Range Interpretation Comments Urine WBC (test code = 5821-4) 0-5 0-5 [facility] TexasErythrocytes detection in urine sediment by light lpelqqcaqe3028-91-74 14:05:00* Test Item Value Reference Range Interpretation Comments Urine RBC (test code = 60547-0) 0-5 0-5 [facility] TexasBacteria detection in urine sediment by light wqbastscdn9996-30-00 14:05:00* Test Item Value Reference Range Interpretation Comments Urine Bacteria (test code = 46259-3) MANY NONE [facility] TexasEpithelial cells detection in urine sediment by light pcjtkcsysy2549-90-14 14:05:00* Test Item Value Reference Range Interpretation Comments Urine Epithelial Cells (test code = 03043-8) NONE NONE [facility]erum or plasma sodium measurement (moles/volume)2020-01-05 14:05:00* Test Item Value Reference Range Interpretation Comments Sodium Level (test code = 2951-2) 130 136-145 [facility]erum or plasma potassium measurement (moles/volume)2020-01-05 14:05:00* Test Item Value Reference Range Interpretation Comments Potassium Level (test code = 2823-3) 4.2 3.5-5.1 [facility]er[facility] or plasma chloride measurement (moles/volume)2020-01-05 14:05:00* Test Item Value Reference Range Interpretation Comments Chloride Level (test code = 2075-0) 100 98-107 [facility]erum or plasma carbon dioxide, total measurement (moles/volume)2020-01-05 14:05:00* Test Item Value Reference Range Interpretation Comments Carbon Dioxide Level (test code = 2028-9) 15 22-29 [facility]erum or plasma anion akw6733-72-71 14:05:00* Test Item Value Reference Range Interpretation Comments Anion Gap (test code = 91178-9) 19.2 8-16 [facility]er[facility] plasma urea nitrogen measurement (mass/volume)2020-01-05 14:05:00* Test Item Value Reference Range Interpretation Comments Blood Urea Nitrogen (test code = 3094-0) 30 7-26 [facility]er[facility] or plasma creatinine measurement (mass/volume)2020-01-05 14:05:00* Test Item Value Reference Range Interpretation Comments Creatinine (test code = 2160-0) 3.66 0.57-1.11 [facility]er[facility] or plasma urea nitrogen/creatinine mass dtxci1090-16-53 14:05:00* Test Item Value Reference Range Interpretation Comments BUN/Creatinine Ratio (test code = 3097-3) 8 6-25 [facility] TexasEstimated glomerular filtration rate (GFR) hywdkgoxgwfsj0112-12-11 14:05:00* Test Item Value Reference Range Interpretation Comments Estimat Glomerular Filtration Rate (test code = 106839158) 12 >60 Ranges were taken from the National Kidney Disease Education Program and the [facility] Kidney Foundation literature.Reference ranges:60 or greater: Tdgwia60-41 ( for 3 consecutive months): Chronic kidney disease 15 or less: Kidney failureD[facility] at [facility] University of TexasGlucose erjurtabcqp4724-26-51 14:05:00* Test Item Value Reference Range Interpretation Comments Glucose Level (test code = CHG3918) 84 74-118 [facility]er[facility] or plasma calcium measurement (mass/volume)2020-01-05 14:05:00* Test Item Value Reference Range Interpretation Comments Calcium Level (test code = 88325-1) 8.1 8.4-10.2 [facility]er[facility] or plasma magnesium measurement (mass/volume)2020-01-05 14:05:00* Test Item Value Reference Range Interpretation Comments Magnesium Level (test code = 44934-2) 1.8 1.3-2.1 [facility]erum or plasma total bilirubin measurement (mass/volume)2020-01-05 14:05:00* Test Item Value Reference Range Interpretation Comments Total Bilirubin (test code = 1975-2) 0.3 0.2-1.2 [facility] TexasFluoroscopic procedure less than one hour xywbayjl0685-48-44 14:05:00* Test Item Value Reference Range Interpretation Comments Aspartate Amino Transf (AST/SGOT) (test code = Aspartate Amino Transf (AST/SGOT)) 24 5-34 [facility] or plasma alanine aminotransferase measurement (enzymatic activity/volume)2020-01-05 14:05:00* Test Item Value Reference Range Interpretation Comments Alanine Aminotransferase (ALT/SGPT) (test code = 1742-6) 11 0-55 [facility]erum or plasma protein measurement (mass/volume)2020-01-05 14:05:00* Test Item Value Reference Range Interpretation Comments Total Protein (test code = 2885-2) 7.0 6.5-8.1 [facility]er[facility] plasma albumin measurement (mass/volume)2020-01-05 14:05:00* Test Item Value Reference Range Interpretation Comments Albumin (test code = 1751-7) 3.1 3.5-5.0 [facility] TexasPlasma globulin measurement (mass/volume) 2020-01-05 14:05:00* Test Item Value Reference Range Interpretation Comments Globulin (test code = 77217-6) 3.9 2.3-3.5 [facility]er[facility] or plasma albumin/globulin mass fkidb8395-80-94 14:05:00* Test Item Value Reference Range Interpretation Comments Albumin/Globulin Ratio (test code = 1759-0) 0.8 0.8-2.0 [facility]er[facility] or plasma alkaline phosphatase measurement (enzymatic activity/volume)2020-01-05 14:05:00* Test Item Value Reference Range Interpretation Comments Alkaline Phosphatase (test code = 6768-6) 59 40-150 [facility] TexasBNP Asl-zZmq1711-47-14 14:05:00* Test Item Value Reference Range Interpretation Comments B-Type Natriuretic Peptide (test code = 66534-1) 45.9 0-100 [facility] or plasma creatine kinase measurement (enzymatic activity/volume)2020-01-05 14:05:00* Test Item Value Reference Range Interpretation Comments Creatine Kinase (test code = 2157-6) 17 29-168 [facility]erum or plasma creatine kinase MB measurement (mass/volume)2020-01-05 14:05:00* Test Item Value Reference Range Interpretation Comments Creatine Kinase MB (test code = 10421-6) 0.70 0-5.0 [facility] TexasTroponin I measurement by highly sensitive enzyme fuvqjgahopm4546-36-55 14:05:00* Test Item Value Reference Range Interpretation Comments Troponin I (test code = 16603-4) 0.020 0-0.300 [facility] of TexasCT ABDOMEN/PELVIS [id number] 18:14:00 [facility] [address] [address] Patient Name: DEO ESCUDERO MR #: [id number] : 1955 Age/Sex: 64/F Req #: [id number] Adm Physician: Ordered by: MEENAKSHI GANDHI MD Report #: [id number] Location: ER Room/Bed: Procedure: [id number] CT/CT ABDOMEN/PE LVIS WO Exam Date: 11/17/19 Exam Time: 1800 REPORT STATUS: Signed EXAMINATION: CT of the abdomen and pelvis without contrast. TECHNIQUE: Helical CT images of the abdomen and pelvis were performed from the lung bases to the lesser trocha nters. No intravenous contrast was given, however positive enteric contrast.. Coronal and sagittal reformatted images were obtained. Dose modulation, iter ative reconstruction, and/or weight based adjustment of the mA/kV was utilized to reduce the radiation dose to as low as reasonably achievable. COMPAR MACK: None. CLINICAL HISTORY:Abdominal pain, diarrhea DISCUSSION : ABSENCE OF INTRAVENOUS CONTRAST DECREASES SENSITIVITY FOR DETECTION OF FOCAL LESIONS AND VASCULAR PATHOLOGY. ABDOMEN/PELVIS: LOWER THORAX: Atelect asis in the lung bases. HEPATOBILIARY:No focal hepatic lesions. No ductal dilatation. Cholecystectomy clips. SPLEEN: No splenomegaly. PANCREAS : No focal masses or ductal dilatation. ADRENALS: No adrenal nodules. KIDNEYS/URETERS: Bilateral punctate renal calculi. PELVIC ORGANS/BLADDER: T he bladder is normal. Hysterectomy. PERITONEUM/RETROPERITONEUM: No free air or fluid. LYMPH NODES: No intra-abdominal,retroperitoneal, pelvic or ingui nal lymphadenopathy. VESSELS: Vascular calcifications. GI TRACT: No distention or wall thickening. Gastrostomy tube. The rectosigmoid colon is dis tended with stool. The appendix is absent. BONES AND SOFT TISSUES: No bony destructive lesions. No soft tissue abnormalities. IMPRESSION: R ectosigmoid distention with stool/possible impaction. Signed by: Dr. And rew Oscar M.D. on 11/17/2019 6:20 PM Dictated By: JAVAN HUTCHINSON MD 19 Transcribed By: SCAR on 11/17/191819 COPY TO: MEENAKSHI GANDHI MD CHEST SINGLE (PORTABLE)2019-11-17 17:14:00 [address] [address] Patient Name: DEO ESCUDERO MR #: [id number] : 1955 Age/Sex: 64/F Req #: [id number] Adm Physician: Ordered by: MEENAKSHI GANDHI MD Report #: [id number] Location: ER Room/Bed: Procedure: [id number] DX/CHEST SINGLE (PORTABLE) Exam Date: 11/17/19 Exam Time: 1644 REPORT STATUS: Signed Examination: Si ngle AP view of the chest. COMPARISON: None. INDICATION: Abdominal zainab n DISCUSSION: Lines/tubes: Dialysis catheter with tip overlying the high right atrium. Lungs: The lungs are well inflated and clear. No pn eumonia or pulmonary edema. Pleura: No pleural effusion or pneumothorax. Heart and mediastinum: The heart and the mediastinum are unremarkable. Bones and soft tissues: No acute bony abnormalities. IMPRESSION: 1. No acute cardiopulmonary abnormalities. Signed by: Dr. Javan Hutchinson M.D. on 11/17/2019 5:15 PM Dictated By: JAVAN HUTCHINSON MD Electronical ly Signed By: JAVAN HUTCHINSON MD on 11/17/191714 Transcribed By: SCAR on 0 11/17/191714 COPY TO: MEENAKSHI GANDHI MD Blood leukocytes automated count (number/volume)2019-11-17 16:00:00* Test Item Value Reference Range Interpretation Comments White Blood Count (test code = 6690-2) 10.70 4.8-10.8 [facility] TexasBlcambridge medical center erythrocytes automated count (number/volume)2019-11-17 16:00:00* Test Item Value Reference Range Interpretation Comments Red Blood Count (test code = 789-8) 4.57 3.6-5.1 [facility] TexasBlood hemoglobin measurement (moles/volume)2019-11-17 16:00:00* Test Item Value Reference Range Interpretation Comments Hemoglobin (test code = 00111-6) 13.0 12.0-16.0 [facility] TexasAutomated blood hematocrit (volume fraction)2019-11-17 16:00:00* Test Item Value Reference Range Interpretation Comments Hematocrit (test code = 4544-3) 39.4 34.2-44.1 [facility] TexasAutomated erythrocyte mean corpuscular rdkzxx8611-19-40 16:00:00* Test Item Value Reference Range Interpretation Comments Mean Corpuscular Volume (test code = 787-2) 86.2 81-99 [facility] TexasAutomated erythrocyte mean corpuscular hemoglobin (mass per erythrocyte)2019-11-17 16:00:00* Test Item Value Reference Range Interpretation Comments Mean Corpuscular Hemoglobin (test code = 785-6) 28.4 28-32 [facility] TexasAutomated erythrocyte mean corpuscular hemoglobin concentration measurement (mass/volume)2019-11-17 16:00:00* Test Item Value Reference Range Interpretation Comments Mean Corpuscular Hemoglobin Concent (test code = 786-4) 33.0 31-35 [facility] TexasRDW XmnFe-Tya9725-19-26 16:00:00* Test Item Value Reference Range Interpretation Comments Red Cell Distribution Width (test code = 91568-9) 14.4 11.7 -14.4 [facility] TexasAutomated blood platelet count (count/volume)2019-11-17 16:00:00* Test Item Value Reference Range Interpretation Comments Platelet Count (test code = 777-3) 501 140-360 [facility] TexasAutomated blood segmented neutrophil count as percentage of total vacxunihqx9771-33-61 16:00:00* Test Item Value Reference Range Interpretation Comments Neutrophils (%) (Auto) (test code = 41469-6) 63.6 38.7-80.0 [facility] TexasAutomated blood lymphocyte count as percentage ot total fkjqlfqufz8346-87-49 16:00:00* Test Item Value Reference Range Interpretation Comments Lymphocytes (%) (Auto) (test code = 736-9) 27.8 18.0-39.1 [facility] TexasAutomated blood monocyte count as percentage of total runvjmyjou2033-77-38 16:00:00* Test Item Value Reference Range Interpretation Comments Monocytes (%) (Auto) (test code = 5905-5) 4.5 4.4-11.3 [facility] TexasAutomated blood eosinophil count as percentage of total hdyjthiuxb2971-23-57 16:00:00* Test Item Value Reference Range Interpretation Comments Eosinophils (%) (Auto) (test code = 713-8) 2.8 0.0-6.0 [facility] TexasAutomated blood basophil count as percentage of total zbaavuaiwx7499-31-05 16:00:00* Test Item Value Reference Range Interpretation Comments Basophils (%) (Auto) (test code = 706-2) 0.9 0.0-1.0 [facility] TexasFluoroscopic procedure less than one hour llomehkt9026-74-65 16:00:00* Test Item Value Reference Range Interpretation Comments IM GRANULOCYTES % (test code = IM GRANULOCYTES %) 0.4 0.0- 1.0 [facility] TexasAutomated blood neutrophil count 2019-11-17 16:00:00* Test Item Value Reference Range Interpretation Comments Neutrophils # (Auto) (test code = 751-8) 6.8 2.1-6.9 [facility] TexasBlood lymphocytes count (number/volume) 2019-11-17 16:00:00* Test Item Value Reference Range Interpretation Comments Lymphocytes # (Auto) (test code = 82197-8) 3.0 1.0-3.2 [facility] TexasBlood monocytes automated count (number/volume)2019-11-17 16:00:00* Test Item Value Reference Range Interpretation Comments Monocytes # (Auto) (test code = 742-7) 0.5 0.2-0.8 [facility] TexasAutomated blood eosinophil count 2019-11-17 16:00:00* Test Item Value Reference Range Interpretation Comments Eosinophils # (Auto) (test code = 711-2) 0.3 0.0-0.4 [facility] TexasAutomated blood basophil count (count/volume)2019-11-17 16:00:00* Test Item Value Reference Range Interpretation Comments Basophils # (Auto) (test code = 704-7) 0.1 0.0-0.1 [facility] TexasFluoroscopic procedure less than one hour iyxomxqt7861-62-24 16:00:00* Test Item Value Reference Range Interpretation Comments Absolute Immature Granulocyte (auto (jake t code = Absolute Immature Granulocyte (auto) 0.04 0-0.1 [facility] TexasProthrombin time (PT) in platelet poor plasma by coagulation wuyqc7246-88-91 16:00:00* Test Item Value Reference Range Interpretation Comments Prothrombin Time (test code = 5902-2) 12.1 11.9-14.5 [facility] TexasINR in Platelet poor plasma by Coagulation ajlqp4696-62-49 16:00:00* Test Item Value Reference Range Interpretation Comments Prothromb Time International Ratio (test code = 6301-6) 0.85 Oral Anticoagulant Therapy INR Values:1. Low Intensity Therapy 1.5 - 2.02 . Moderate Intensity Therapy 2.0 - 3.03. High Intensity Therapy(1) 2.5 - 3. 54. High Intensity Therapy(2) 3.0 - 4.05. Panic Value INR > 5.0 [facility] [facility] TexasActivated partial thromboplastin time (aPTT) in platelet poor plasma by coagulation eetjz0997-89-93 16:00:00* Test Item Value Reference Range Interpretation Comments Activated Partial Thromboplast Time (test code = 34825-9) 29.2 23.8-35.5 [facility] sodium measurement (moles/volume)2019-11-17 16:00:00* Test Item Value Reference Range Interpretation Comments Sodium Level (test code = 2951-2) 142 136-145 [facility] potassium measurement (moles/volume)2019-11-17 16:00:00* Test Item Value Reference Range Interpretation Comments Potassium Level (test code = 2823-3) 3.7 3.5-5.1 [facility] chloride measurement (moles/volume)2019-11-17 16:00:00* Test Item Value Reference Range Interpretation Comments Chloride Level (test code = 2075-0) 101 98-107 [facility] carbon dioxide, total measurement (moles/volume)2019-11-17 16:00:00* Test Item Value Reference Range Interpretation Comments Carbon Dioxide Level (test code = 2028-9) 26 22-29 [facility] anion ymu1207-01-45 16:00:00* Test Item Value Reference Range Interpretation Comments Anion Gap (test code = 93974-8) 18.7 8-16 [facility] urea nitrogen measurement (mass/volume)2019-11-17 16:00:00* Test Item Value Reference Range Interpretation Comments Blood Urea Nitrogen (test code = 3094-0) 36 7-26 [facility] creatinine measurement (mass/volume)2019-11-17 16:00:00* Test Item Value Reference Range Interpretation Comments Creatinine (test code = 2160-0) 3.62 0.57-1.11 [facility] urea nitrogen/creatinine mass ksoww8404-70-14 16:00:00* Test Item Value Reference Range Interpretation Comments BUN/Creatinine Ratio (test code = 3097-3) 10 6-25 [facility] TexasEstimated glomerular filtration rate (GFR) kocwxxslzkkag3570-27-29 16:00:00* Test Item Value Reference Range Interpretation Comments Estimat Glomerular Filtration Rate (test code = 350558185) 13 >60 Ranges were taken from the National Kidney Disease Education Program and the [facility] Kidney Foundation literature.Reference ranges:60 or greater: Aatyou98-65 ( for 3 consecutive months): Chronic kidney disease 15 or less: Kidney failureDell [facility] TexasGlucose fvpzpzrnqro2683-42-31 16:00:00* Test Item Value Reference Range Interpretation Comments Glucose Level (test code = ENV3448) 114 74-118 [facility] plasma calcium measurement (mass/volume)2019-11-17 16:00:00* Test Item Value Reference Range Interpretation Comments Calcium Level (test code = 69624-4) 10.0 8.4-10.2 [facility] plasma magnesium measurement (mass/volume)2019-11-17 16:00:00* Test Item Value Reference Range Interpretation Comments Magnesium Level (test code = 50144-0) 2.0 1.3-2.1 [facility] plasma total bilirubin measurement (mass/volume)2019-11-17 16:00:00* Test Item Value Reference Range Interpretation Comments Total Bilirubin (test code = 1975-2) 0.5 0.2-1.2 [facility] TexasFluoroscopic procedure less than one hour dbkmsmqv0752-13-26 16:00:00* Test Item Value Reference Range Interpretation Comments Aspartate Amino Transf (AST/SGOT) (test code = Aspartate Amino Transf (AST/SGOT)) 16 5-34 [facility] alanine aminotransferase measurement (enzymatic activity/volume)2019-11-17 16:00:00* Test Item Value Reference Range Interpretation Comments Alanine Aminotransferase (ALT/SGPT) (test code = 1742-6) 11 0-55 [facility] plasma protein measurement (mass/volume)2019-11-17 16:00:00* Test Item Value Reference Range Interpretation Comments Total Protein (test code = 2885-2) 7.7 6.5-8.1 [facility] albumin measurement (mass/volume)2019-11-17 16:00:00* Test Item Value Reference Range Interpretation Comments Albumin (test code = 1751-7) 3.8 3.5-5.0 [facility] TexasPlasma globulin measurement (mass/volume) 2019-11-17 16:00:00* Test Item Value Reference Range Interpretation Comments Globulin (test code = 88148-6) 3.9 2.3-3.5 [facility] albumin/globulin mass jjzmu5938-13-81 16:00:00* Test Item Value Reference Range Interpretation Comments Albumin/Globulin Ratio (test code = 1759-0) 1.0 0.8-2.0 [facility] alkaline phosphatase measurement (enzymatic activity/volume)2019-11-17 16:00:00* Test Item Value Reference Range Interpretation Comments Alkaline Phosphatase (test code = 6768-6) 74 40-150 [facility] plasma creatine kinase measurement (enzymatic activity/volume)2019-11-17 16:00:00* Test Item Value Reference Range Interpretation Comments Creatine Kinase (test code = 2157-6) 13 29-168 [facility] plasma creatine kinase MB measurement (mass/volume)2019-11-17 16:00:00* Test Item Value Reference Range Interpretation Comments Creatine Kinase MB (test code = 64419-3) 0.80 0-5.0 [facility] TexasTroponin I measurement by highly sensitive enzyme kntgsaxmguy1925-73-65 16:00:00* Test Item Value Reference Range Interpretation Comments Troponin I (test code = 47791-1) 0.031 0-0.300 [facility] TexasBedside Jxlqxke8610-46-55 11:56:00* Test Item Value Reference Range Interpretation Comments Bedside Glucose (test code = 27673-9) 89 70-120 Meter ID: [id number] [facility] LakewayCapillary blood glucose measurement by glucometer (mass/volume)2019-09-10 07:11:00* Test Item Value Reference Range Interpretation Comments Bedside Glucose (test code = 70642-8) 89 70-120 Meter ID: [id number] [facility] LakewayCapillary blood glucose measurement by glucometer (mass/volume)2019-09-10 07:11:00* Test Item Value Reference Range Interpretation Comments Bedside Glucose (test code = 15284-0) 89 70-120 Meter ID: [id number] [facility]er[facility] plasma hepatitis B virus surface antigen detection by cpaobzhtzzm3833-80-33 19:30:00* Test Item Value Reference Range Interpretation Comments Hepatitis B Surface Antigen (test code = 5196-1) Negative Negat francois Performed at: [facility] [id number] Director: Kevin Lino MD, Phone: [phone] Hospitalerum or plasma hepatitis B virus surface antigen detection by immunoassay 2019-09-09 19:30:00* Test Item Value Reference Range Interpretation Comments Hepatitis B Surface Antigen (test code = 5196-1) Negative Negat francois Performed at: [facility] [id number] Director: Kevin Lino MD, Phone: [phone] [facility] TexasHepatitis Be Zwmgurfq8449-16-70 15:30:00* Test Item Value Reference Range Interpretation Comments Hepatitis Be Antibody (test code = 05391-6) Negative Negative Performed at: - [facility] [id number] [employer]: Kanika Corrales MD, Phone: [phone] [facility] TexasHepatitis B Surface Antibody, Wiyja7983-40-87 10:48:00* Test Item Value Reference Range Interpretation Comments Hepatitis B Surface Antibody, Quant (test code = 5194-6) <3.1 Immunity>9.9 L Status of Immunity Anti-HBs Level Inconsistent with Immunity 0.0 - 9.9Consistent with Immunity >9.9CHI [facility] LakewayHepatitis B Core Total Viwzluku8946-77-27 10:48:00* Test Item Value Reference Range Interpretation Comments Hepatitis B Core Total Antibody (test code = 17934-6) Negative Negative [facility] TexasHe[facility] B Core IgM Axmntmsz5867-12-75 10:48:00* Test Item Value Reference Range Interpretation Comments Hepatitis B Core IgM Antibody (test code = 43261-7) Negative Ne gative Performed at: [employer] [facility] [id number] Director: Kevin Lino MD, Phone: [phone] Hospitalodium Lllqs4275-46-11 06:01:00* Test Item Value Reference Range Interpretation Comments Sodium Level (test code = 2951-2) 136 136-145 [facility] TexasPotassium Uffst0878-63-22 06:01:00* Test Item Value Reference Range Interpretation Comments Potassium Level (test code = 2823-3) 3.7 3.5-5.1 [facility] TexasChloride Mrump4396-95-88 06:01:00* Test Item Value Reference Range Interpretation Comments Chloride Level (test code = 2075-0) 103 98-107 [facility] TexasCarbon Dioxide Nfhkp1180-49-16 06:01:00* Test Item Value Reference Range Interpretation Comments Carbon Dioxide Level (test code = 2028-9) 26 22-29 [facility] TexasAnion Eus9885-85-74 06:01:00* Test Item Value Reference Range Interpretation Comments Anion Gap (test code = 65583-5) 10.7 8-16 [facility] TexasBlood Urea Rpeiicgn2610-59-66 06:01:00* Test Item Value Reference Range Interpretation Comments Blood Urea Nitrogen (test code = 3094-0) 32 7-26 H [facility] TexasCreatinine2020-03-16 06:01:00* Test Item Value Reference Range Interpretation Comments Creatinine (test code = 2160-0) 4.40 0.57-1.11 H [facility] TexasBUN/Creatinine Vxbfk9415-79-58 06:01:00* Test Item Value Reference Range Interpretation Comments BUN/Creatinine Ratio (test code = 3097-3) 7 6-25 [facility] TexasEstimat Glomerular Filtration Rate 2019-09-07 06:01:00* Test Item Value Reference Range Interpretation Comments Estimat Glomerular Filtration Rate (test code = 409591334) 10 >60 L Ranges were taken from the National Kidney Disease Education Program and the [facility] Kidney Foundation literature.Reference ranges:60 or greater: Hmcgde31-18 ( for 3 consecutive months): Chronic kidney disease 15 or less: Kidney failureDell [facility] TexasGlucose Iylwz0660-02-25 06:01:00* Test Item Value Reference Range Interpretation Comments Glucose Level (test code = EMU6418) 84 74-118 [facility] TexasCalcium Ynabg1187-44-07 06:01:00* Test Item Value Reference Range Interpretation Comments Calcium Level (test code = 90162-0) 9.0 8.4-10.2 [facility] TexasMagnesium Fsmdw5963-26-41 06:01:00* Test Item Value Reference Range Interpretation Comments Magnesium Level (test code = 65694-3) 2.0 1.3-2.1 [facility] TexasTotal Amkdonehk4065-06-82 06:01:00* Test Item Value Reference Range Interpretation Comments Total Bilirubin (test code = 1975-2) 0.6 0.2-1.2 [facility] TexasAspartate Amino Transf (AST/SGOT) 2019-09-07 06:01:00* Test Item Value Reference Range Interpretation Comments Aspartate Amino Transf (AST/SGOT) (test code = Aspartate Amino Transf (AST/SGOT)) 18 5-34 [facility] TexasAlanine Aminotransferase (ALT/SGPT) 2019-09-07 06:01:00* Test Item Value Reference Range Interpretation Comments Alanine Aminotransferase (ALT/SGPT) (test code = 1742-6) 19 0-55 [facility] TexasTotal Eevtxiq4870-28-66 06:01:00* Test Item Value Reference Range Interpretation Comments Total Protein (test code = 2885-2) 6.2 6.5-8.1 L [facility] TexasAlbumin2020-03-16 06:01:00* Test Item Value Reference Range Interpretation Comments Albumin (test code = 1751-7) 2.8 3.5-5.0 L [facility] TexasGlobulin2020-03-16 06:01:00* Test Item Value Reference Range Interpretation Comments Globulin (test code = 86122-5) 3.4 2.3-3.5 [facility] TexasAlbumin/Globulin Jxhko2832-55-97 06:01:00 * Test Item Value Reference Range Interpretation Comments Albumin/Globulin Ratio (test code = 1759-0) 0.8 0.8-2.0 [facility] TexasAlkaline Nfiveeosrae9055-28-87 06:01:00* Test Item Value Reference Range Interpretation Comments Alkaline Phosphatase (test code = 6768-6) 74 40-150 [facility] TexasWhite Blood Kgdvo0803-47-11 05:47:00* Test Item Value Reference Range Interpretation Comments White Blood Count (test code = 6690-2) 9.44 4.8-10.8 [facility] TexasRed Blood Fikhn8746-96-15 05:47:00* Test Item Value Reference Range Interpretation Comments Red Blood Count (test code = 789-8) 4.58 3.6-5.1 [facility] TexasHemoglobin2020-03-16 05:47:00* Test Item Value Reference Range Interpretation Comments Hemoglobin (test code = 85342-0) 12.9 12.0-16.0 [facility] TexasHematocrit2020-03-16 05:47:00* Test Item Value Reference Range Interpretation Comments Hematocrit (test code = 4544-3) 40.4 34.2-44.1 [facility] TexasMean Corpuscular Nfdakn3466-79-11 05:47:00* Test Item Value Reference Range Interpretation Comments Mean Corpuscular Volume (test code = 787-2) 88.2 81-99 [facility] TexasMean Corpuscular Hqlounkllh0577-71-41 05:47:00* Test Item Value Reference Range Interpretation Comments Mean Corpuscular Hemoglobin (test code = 785-6) 28.2 28-32 [facility] TexasMean Corpuscular Hemoglobin Concent 2019-09-07 05:47:00* Test Item Value Reference Range Interpretation Comments Mean Corpuscular Hemoglobin Concent (test code = 786-4) 31.9 31-35 [facility] TexasRed Cell Distribution Othij8286-97-89 05:47:00* Test Item Value Reference Range Interpretation Comments Red Cell Distribution Width (test code = 19200-4) 15.8 11.7 -14.4 H [facility] TexasPlatelet Fngdb1330-10-55 05:47:00* Test Item Value Reference Range Interpretation Comments Platelet Count (test code = 777-3) 355 140-360 [facility] TexasNeutrophils (%) (Auto)2019-09-07 05:47:00 * Test Item Value Reference Range Interpretation Comments Neutrophils (%) (Auto) (test code = 13895-8) 62.4 38.7-80.0 [facility] TexasLymphocytes (%) (Auto)2019-09-07 05:47:00 * Test Item Value Reference Range Interpretation Comments Lymphocytes (%) (Auto) (test code = 736-9) 24.4 18.0-39.1 [facility] TexasMonocytes (%) (Auto)2019-09-07 05:47:00* Test Item Value Reference Range Interpretation Comments Monocytes (%) (Auto) (test code = 5905-5) 6.1 4.4-11.3 [facility] TexasEosinophils (%) (Auto)2019-09-07 05:47:00 * Test Item Value Reference Range Interpretation Comments Eosinophils (%) (Auto) (test code = 713-8) 5.8 0.0-6.0 [facility] TexasBasophils (%) (Auto)2019-09-07 05:47:00* Test Item Value Reference Range Interpretation Comments Basophils (%) (Auto) (test code = 706-2) 1.0 0.0-1.0 [facility] TexasIM GRANULOCYTES %2019-09-07 05:47:00* Test Item Value Reference Range Interpretation Comments IM GRANULOCYTES % (test code = IM GRANULOCYTES %) 0.3 0.0- 1.0 [facility] TexasNeutrophils # (Auto)2019-09-07 05:47:00* Test Item Value Reference Range Interpretation Comments Neutrophils # (Auto) (test code = 751-8) 5.9 2.1-6.9 [facility] TexasLymphocytes # (Auto)2019-09-07 05:47:00* Test Item Value Reference Range Interpretation Comments Lymphocytes # (Auto) (test code = 63320-0) 2.3 1.0-3.2 [facility] TexasMonocytes # (Auto)2019-09-07 05:47:00* Test Item Value Reference Range Interpretation Comments Monocytes # (Auto) (test code = 742-7) 0.6 0.2-0.8 [facility] TexasEosinophils # (Auto)2019-09-07 05:47:00* Test Item Value Reference Range Interpretation Comments Eosinophils # (Auto) (test code = 711-2) 0.6 0.0-0.4 H [facility] TexasBasophils # (Auto)2019-09-07 05:47:00* Test Item Value Reference Range Interpretation Comments Basophils # (Auto) (test code = 704-7) 0.1 0.0-0.1 [facility] TexasAbsolute Immature Granulocyte (auto 2019-09-07 05:47:00* Test Item Value Reference Range Interpretation Comments Absolute Immature Granulocyte (auto (jake t code = Absolute Immature Granulocyte (auto) 0.03 0-0.1 [facility] hepatitis B virus surface antibody assay by radioimmunoassay (units/volume)2019-09-04 22:15:00* Test Item Value Reference Range Interpretation Comments Hepatitis B Surface Antibody, Quant (test code = 5194-6) <3.1 Immunity>9.9 Status of Immunity Anti-HBs Level Inconsistent with Immunity 0.0 - 9.9Consistent with Immunity >9.9CH[facility] LakewayQualitative serum or plasma hepatitis B virus e antibody by enzyme zrhgdmwinwv1345-17-75 22:15:00* Test Item Value Reference Range Interpretation Comments Hepatitis Be Antibody (test code = 97384-4) Negative Negative Performed at: [facility] [address] [id number] [employer]: Kanika Corrales MD, Phone: [phone] Hospitalerum or plasma hepatitis B virus core antibody detection by wtsnlkbkcug9373-07-67 22:15:00* Test Item Value Reference Range Interpretation Comments Hepatitis B Core Total Antibody (test code = 74346-8) Negative Negative [facility] plasma hepatitis B virus core IgM antibody detection by vyxlyvpsbug7102-57-99 22:15:00* Test Item Value Reference Range Interpretation Comments Hepatitis B Core IgM Antibody (test code = 95587-3) Negative Ne gative Performed at: [facility] [address] [id number] Director: Kevin Lino MD, Phone: [phone] Hospitalerum hepatitis B virus surface antibody assay by radioimmunoassay (units/volume)2019-09-04 22:15:00* Test Item Value Reference Range Interpretation Comments Hepatitis B Surface Antibody, Quant (test code = 5194-6) <3.1 Immunity>9.9 Status of Immunity Anti-HBs Level Inconsistent with Immunity 0.0 - 9.9Consistent with Immunity >9.9[facility] LakewayQualitative serum or plasma hepatitis B virus e antibody by enzyme ihktyhjevzz6138-51-26 22:15:00* Test Item Value Reference Range Interpretation Comments Hepatitis Be Antibody (test code = 56978-9) Negative Negative Performed at: [facility] [id number] [employer]: Kanika Corrales MD, Phone: [phone] Hospitalerum or plasma hepatitis B virus core antibody detection by aorntvckhvi1482-76-82 22:15:00* Test Item Value Reference Range Interpretation Comments Hepatitis B Core Total Antibody (test code = 81269-9) Negative Negative [facility] plasma hepatitis B virus core IgM antibody detection by cmatgbnxire1144-28-56 22:15:00* Test Item Value Reference Range Interpretation Comments Hepatitis B Core IgM Antibody (test code = 18511-2) Negative Ne gative Performed at: - [facility] [id number] Director: Kevin Lino MD, Phone: [phone] [facility] Center [facility] University of TexasPhosphorus Sjllw4988-52-38 06:16:00* Test Item Value Reference Range Interpretation Comments Phosphorus Level (test code = QML2083) 3.3 2.3-4.7 [facility] TexasPhosphorus zlafbahrwls4847-37-17 05:25:00 * Test Item Value Reference Range Interpretation Comments Phosphorus Level (test code = CHQ2062) 3.3 2.3-4.7 [facility] TexasPhosphorus fggkmstsoto0471-53-66 05:25:00 * Test Item Value Reference Range Interpretation Comments Phosphorus Level (test code = PZV3220) 3.3 2.3-4.7 [facility] TexasTriglycerides Tjkbk5331-34-20 09:23:00* Test Item Value Reference Range Interpretation Comments Triglycerides Level (test code = 2571-8) 112 0-149 [facility] TexasCholesterol Yzutd0281-30-15 09:23:00* Test Item Value Reference Range Interpretation Comments Cholesterol Level (test code = 2093-3) 100 0-199 Less than 200 mg/dL Low Pddi251 - 239 mg/dL Borderline Qgir565 m g/dl and greater High Risk [facility] TexasLDL Potavnonebh9763-94-70 09:23:00* Test Item Value Reference Range Interpretation Comments LDL Cholesterol (test code = 2089-1) 45 60-130 L [facility] TexasHDL Wrmfowctgvl0800-98-03 09:23:00* Test Item Value Reference Range Interpretation Comments HDL Cholesterol (test code = 2085-9) 33 40-60 L [facility] TexasCholesterol/HDL Ydzmk6496-30-95 09:23:00 * Test Item Value Reference Range Interpretation Comments Cholesterol/HDL Ratio (test code = 9830-1) 3.0 3.0-3.6 [facility] or plasma triglyceride measurement (mass/volume)2019-09-03 08:10:00* Test Item Value Reference Range Interpretation Comments Triglycerides Level (test code = 2571-8) 112 0-149 [facility]er[facility] or plasma cholesterol measurement (mass/volume)2019-09-03 08:10:00* Test Item Value Reference Range Interpretation Comments Cholesterol Level (test code = 2093-3) 100 0-199 Less than 200 mg/dL Low Ulbu975 - 239 mg/dL Borderline Nkwr224 m g/dl and greater High Risk [facility] plasma cholesterol in LDL measurement (mass/volume) 2019-09-03 08:10:00* Test Item Value Reference Range Interpretation Comments LDL Cholesterol (test code = 2089-1) 45 60-130 [facility] plasma cholesterol in HDL measurement (mass/volume)2019-09-03 08:10:00* Test Item Value Reference Range Interpretation Comments HDL Cholesterol (test code = 2085-9) 33 40-60 [facility] or plasma total cholesterol/cholesterol in HDL mass uwarj5886-37-69 08:10:00* Test Item Value Reference Range Interpretation Comments Cholesterol/HDL Ratio (test code = 9830-1) 3.0 3.0-3.6 [facility] or plasma triglyceride measurement (mass/volume)2019-09-03 08:10:00* Test Item Value Reference Range Interpretation Comments Triglycerides Level (test code = 2571-8) 112 0-149 [facility] or plasma cholesterol measurement (mass/volume)2019-09-03 08:10:00* Test Item Value Reference Range Interpretation Comments Cholesterol Level (test code = 2093-3) 100 0-199 Less than 200 mg/dL Low Vqdj715 - 239 mg/dL Borderline Sfiq741 m g/dl and greater High Risk [facility] plasma cholesterol in LDL measurement (mass/volume) 2019-09-03 08:10:00* Test Item Value Reference Range Interpretation Comments LDL Cholesterol (test code = 2089-1) 45 60-130 [facility] plasma cholesterol in HDL measurement (mass/volume)2019-09-03 08:10:00* Test Item Value Reference Range Interpretation Comments HDL Cholesterol (test code = 2085-9) 33 40-60 [facility] or plasma total cholesterol/cholesterol in HDL mass ptrbv2889-21-70 08:10:00* Test Item Value Reference Range Interpretation Comments Cholesterol/HDL Ratio (test code = 9830-1) 3.0 3.0-3.6 [facility] TexasUrine Moqje2575-29-92 06:31:00* Test Item Value Reference Range Interpretation Comments Urine Color (test code = 5778-6) YELLOW YELLOW [facility] TexasUrine Qgpawss8945-95-59 06:31:00* Test Item Value Reference Range Interpretation Comments Urine Clarity (test code = 00741-0) TURBID CLEAR H [facility] TexasUrine Specific Luowdyv3604-04-35 06:31:00 * Test Item Value Reference Range Interpretation Comments Urine Specific [place] (test code = 5811-5) 1.025 1.010-1.02 5 [facility] TexasUrine dY8875-34-97 06:31:00* Test Item Value Reference Range Interpretation Comments Urine pH (test code = 41488-3) 5.5 5-7 [facility] TexasUrine Leukocyte Cytexozn1415-24-52 06:31:00* Test Item Value Reference Range Interpretation Comments Urine Leukocyte Esterase (test code = 5799-2) TRACE NEGATIVE H [facility] [place] Rgubfxf2020-33-09 06:31:00* Test Item Value Reference Range Interpretation Comments Urine Nitrite (test code = 69678-7) NEGATIVE NEGATIVE [facility] TexasUrine Sjkwxnj3750-37-18 06:31:00* Test Item Value Reference Range Interpretation Comments Urine Protein (test code = 5804-0) 3+ NEGATIVE H [facility] Glucose (UA)2019-09-03 06:31:00* Test Item Value Reference Range Interpretation Comments Urine Glucose (UA) (test code = 2349-9) NEGATIVE NEGATIVE [facility] Glqntfg7354-23-72 06:31:00* Test Item Value Reference Range Interpretation Comments Urine Ketones (test code = 36258-0) 1+ NEGATIVE H [facility] Cucekfhenmzu6994-18-40 06:31:00* Test Item Value Reference Range Interpretation Comments Urine Urobilinogen (test code = 89304-6) 0.2 0.2-1 [facility] Tfpmvpozs7642-98-49 06:31:00* Test Item Value Reference Range Interpretation Comments Urine Bilirubin (test code = 1978-6) SMALL NEGATIVE [facility] Rrnnj6323-63-85 06:31:00* Test Item Value Reference Range Interpretation Comments Urine Blood (test code = 19253-4) MODERATE NEGATIVE [facility] EWC4538-95-32 06:31:00* Test Item Value Reference Range Interpretation Comments Urine WBC (test code = 5821-4) 11-20 0-5 H [facility] ZXO5788-64-52 06:31:00* Test Item Value Reference Range Interpretation Comments Urine RBC (test code = 77276-6) 21-50 0-5 H [facility] Hnapzunu7070-98-91 06:31:00* Test Item Value Reference Range Interpretation Comments Urine Bacteria (test code = 21308-0) MODERATE NONE [facility] Epithelial Jbtjr7096-33-83 06:31:00 * Test Item Value Reference Range Interpretation Comments Urine Epithelial Cells (test code = 71081-6) RARE NONE [facility] Amorphous Khbktnob5100-45-95 06:31:00* Test Item Value Reference Range Interpretation Comments Urine Amorphous Sediment (test code = 8246-1) FEW FEW [facility] TexasUrine color xcqkxqcaaffrm6811-27-93 05:25:00* Test Item Value Reference Range Interpretation Comments Urine Color (test code = 5778-6) YELLOW YELLOW [facility] TexasUrine yjkddhk8082-56-48 05:25:00* Test Item Value Reference Range Interpretation Comments Urine Clarity (test code = 24290-5) [facility]BID [facility]AR [facility] Test strip 2019-09-03 05:25:00* Test Item Value Reference Range Interpretation Comments Urine Specific [place] (test code = 5811-5) 1.025 1.010-1.02 5 [facility] TexasUrine pH measurement by automated test eniuj9795-41-85 05:25:00* Test Item Value Reference Range Interpretation Comments Urine pH (test code = 19512-6) 5.5 5-7 [facility] TexasUrine leukocyte esterase detection by jvbkwgkh3235-66-01 05:25:00* Test Item Value Reference Range Interpretation Comments Urine Leukocyte Esterase (test code = 5799-2) TRACE NEGATIVE [facility] TexasUrine nitrite nyfbaqarq9532-84-20 05:25:00* Test Item Value Reference Range Interpretation Comments Urine Nitrite (test code = 92305-3) NEGATIVE NEGATIVE [facility] TexasUrine protein measurement by test strip (mass/volume)2019-09-03 05:25:00* Test Item Value Reference Range Interpretation Comments Urine Protein (test code = 5804-0) 3+ NEGATIVE [facility] TexasUrine glucose komebckbn5515-51-51 05:25:00* Test Item Value Reference Range Interpretation Comments Urine Glucose (UA) (test code = 2349-9) NEGATIVE NEGATIVE [facility] TexasUrine ketones detection by automated test brbbb0764-78-97 05:25:00* Test Item Value Reference Range Interpretation Comments Urine Ketones (test code = 35198-7) 1+ NEGATIVE [facility] TexasUrine urobilinogen measurement by test strip (mass/volume)2019-09-03 05:25:00* Test Item Value Reference Range Interpretation Comments Urine Urobilinogen (test code = 79284-2) 0.2 0.2-1 [facility] TexasUrine total bilirubin measurement (mass/volume)2019-09-03 05:25:00* Test Item Value Reference Range Interpretation Comments Urine Bilirubin (test code = 1978-6) SMALL NEGATIVE [facility] TexasUrine erythrocytes amzxrujbn4428-01-98 05:25:00* Test Item Value Reference Range Interpretation Comments Urine Blood (test code = 88225-7) MODERATE NEGATIVE [facility] TexasAutomated urine sediment leukocyte count by microscopy (number/high power field)2019-09-03 05:25:00* Test Item Value Reference Range Interpretation Comments Urine WBC (test code = 5821-4) 11-20 0-5 [facility] TexasErythrocytes detection in urine sediment by light bsnenpmrkw6432-19-02 05:25:00* Test Item Value Reference Range Interpretation Comments Urine RBC (test code = 17478-3) 21-50 0-5 [facility] TexasBacteria detection in urine sediment by light yepyotjzhj7433-20-66 05:25:00* Test Item Value Reference Range Interpretation Comments Urine Bacteria (test code = 06885-6) MODERATE NONE [facility] TexasEpithelial cells detection in urine sediment by light dmhloxjwue7111-31-36 05:25:00* Test Item Value Reference Range Interpretation Comments Urine Epithelial Cells (test code = 94227-7) RARE NONE [facility] TexasAmorphous sediment detection in urine sediment by light gbnsbtppon6538-14-82 05:25:00* Test Item Value Reference Range Interpretation Comments Urine Amorphous Sediment (test code = 8246-1) FEW FEW [facility] TexasAmorphous sediment detection in urine sediment by light qolhynbver5699-11-92 05:25:00* Test Item Value Reference Range Interpretation Comments Urine Amorphous Sediment (test code = 8246-1) FEW FEW [facility] TexasCreatine Kinase DS4383-13-65 21:27:00* Test Item Value Reference Range Interpretation Comments Creatine Kinase MB (test code = 85581-2) 0.60 0-5.0 [facility] TexasTroponin D5324-36-18 21:27:00* Test Item Value Reference Range Interpretation Comments Troponin I (test code = VPV4560) < 0.001 0-0.300 [facility] TexasCreatine Cskhpg5730-22-06 21:18:00* Test Item Value Reference Range Interpretation Comments Creatine Kinase (test code = 2157-6) 15 29-168 L [facility]2019-09-02 19:12:00 [facility] [address] [address] Patient Name: DEO ESCUDERO MR #: [id number] : 1955 Age/Sex: 64/F Req #: [id number] Adm Physician: Ordered by: MEENAKSHI GANDHI MD Report #: [id number] Location: ER Room/Bed: Procedure: [id number] DX/CH EST SINGLE (PORTABLE) Exam Date: 09/02/19 Exam Time: 1829 REPORT STATUS: Signed EXAM INATION: CHEST SINGLE (PORTABLE) COMPARISON: Chest x-ray 08/10/2019 INDICATION: Altered level of consciousness [facility] [id number] DISCUSSION: Frontal view of the chest obtained [...] COPY TO: MEENAKSHI GANDHI MD CT BRAIN PV5010-00-88 18:56:00 [address] [address] Patient Name: DEO ESCUDERO MR #: [id number] : 1955 Age/Sex: 64/F Req #: [id number] Adm Physician: Ordered by: MEENAKSHI GANDHI MD Report #: [id number] Location: ER Room/Bed: Procedure: [id number] CT/CT BRAIN WO Exam Date: 09/02/19 Exam Time: 1829 REPORT STATUS: Signed History:Altered mental status Comparison [...] Ventricles: Mild compensatory dilatation. No hydrocephalus. Parenchyma: Cortical encephalomalacic changes in the left superior and middle temporal gyri, which extend to the posterior insula and into [...] PM Dictated By: CRISTINA WHITNEY MD, MD Transcribed By: SCAR on 09/02/19 190 COPY TO: MEENAKSHI GANDHI MD Urine Fryvhxq6369-74-69 07:53:00* Test Item Value Reference Range Interpretation Comments Urine Culture (test code = 630-4) No Result Data Provided [facility] TexasUrine Ghvivpg4791-58-95 07:53:00* Test Item Value Reference Range Interpretation Comments Urine Culture (test code = 630-4) No Result Data Provided [facility] TexasUrine MQM9151-36-70 20:26:00* Test Item Value Reference Range Interpretation Comments Urine WBC (test code = 5821-4) >50 0-5 H [facility] TexasUrine REY7797-79-20 20:26:00* Test Item Value Reference Range Interpretation Comments Urine RBC (test code = 34682-8) 21-50 0-5 H [facility] TexasUrine Hevxoipf2229-54-32 20:26:00* Test Item Value Reference Range Interpretation Comments Urine Bacteria (test code = 30987-4) MANY NONE H [facility] TexasUrine Epithelial Icafj5064-73-46 20:26:00 * Test Item Value Reference Range Interpretation Comments Urine Epithelial Cells (test code = 58317-3) FEW NONE [facility] TexasUrine BYC7672-85-78 20:26:00* Test Item Value Reference Range Interpretation Comments Urine WBC (test code = 5821-4) >50 0-5 H [facility] TexasUrine BOM9592-65-78 20:26:00* Test Item Value Reference Range Interpretation Comments Urine RBC (test code = 27888-5) 21-50 0-5 H [facility] TexasUrine Vidvxeen2964-25-12 20:26:00* Test Item Value Reference Range Interpretation Comments Urine Bacteria (test code = 52375-0) MANY NONE H [facility] TexasUrine Epithelial Ockkh1697-78-35 20:26:00 * Test Item Value Reference Range Interpretation Comments Urine Epithelial Cells (test code = 50180-7) FEW NONE [facility] TexasUrine Qznqu6705-96-47 20:16:00* Test Item Value Reference Range Interpretation Comments Urine Color (test code = 5778-6) YELLOW YELLOW [facility] TexasUrine Luiopok9558-70-28 20:16:00* Test Item Value Reference Range Interpretation Comments Urine Clarity (test code = 22451-2) CLOUDY CLEAR H [facility] TexasUrine Specific Xoejxeg2293-50-48 20:16:00 * Test Item Value Reference Range Interpretation Comments Urine Specific [place] (test code = 5811-5) 1.020 1.010-1.02 5 [facility] TexasUrine oG5111-11-11 20:16:00* Test Item Value Reference Range Interpretation Comments Urine pH (test code = 83090-0) 6 5-7 [facility] TexasUrine Leukocyte Ufzxaghb6520-57-51 20:16:00* Test Item Value Reference Range Interpretation Comments Urine Leukocyte Esterase (test code = 5799-2) MODERATE NEGATIVE [facility] TexasUrine Vlpzxtl1728-98-01 20:16:00* Test Item Value Reference Range Interpretation Comments Urine Nitrite (test code = 77571-4) NEGATIVE NEGATIVE [facility] TexasUrine Ibchmat6439-83-67 20:16:00* Test Item Value Reference Range Interpretation Comments Urine Protein (test code = 5804-0) 3+ NEGATIVE H [facility] TexasUrine Glucose (UA)2019-08-25 20:16:00* Test Item Value Reference Range Interpretation Comments Urine Glucose (UA) (test code = 2349-9) NEGATIVE NEGATIVE [facility] TexasUrine Fdgayfx9696-19-61 20:16:00* Test Item Value Reference Range Interpretation Comments Urine Ketones (test code = 11960-0) NEGATIVE NEGATIVE [facility] TexasUrine Ydvzqqysmkml4149-15-61 20:16:00* Test Item Value Reference Range Interpretation Comments Urine Urobilinogen (test code = 54145-7) 0.2 0.2-1 [facility] TexasUrine Ekmmcghzb6954-60-61 20:16:00* Test Item Value Reference Range Interpretation Comments Urine Bilirubin (test code = 1978-6) SMALL NEGATIVE [facility] Mqrxi4930-48-10 20:16:00* Test Item Value Reference Range Interpretation Comments Urine Blood (test code = 68097-7) 1+ NEGATIVE [facility] TexasUrine Dlryq9789-94-73 20:16:00* Test Item Value Reference Range Interpretation Comments Urine Color (test code = 5778-6) YELLOW YELLOW [facility] TexasUrine Dgagnoa1969-93-08 20:16:00* Test Item Value Reference Range Interpretation Comments Urine Clarity (test code = 24201-2) CLOUDY CLEAR H [facility] TexasUrine Specific Cghhknq8936-94-35 20:16:00 * Test Item Value Reference Range Interpretation Comments Urine Specific [place] (test code = 5811-5) 1.020 1.010-1.02 5 [facility] TexasUrine tN2926-25-50 20:16:00* Test Item Value Reference Range Interpretation Comments Urine pH (test code = 76588-3) 6 5-7 [facility] TexasUrine Leukocyte Lwslrfcn0483-51-19 20:16:00* Test Item Value Reference Range Interpretation Comments Urine Leukocyte Esterase (test code = 5799-2) MODERATE NEGATIVE [facility] TexasUrine Jnlqqyk1132-79-50 20:16:00* Test Item Value Reference Range Interpretation Comments Urine Nitrite (test code = 72979-2) NEGATIVE NEGATIVE [facility] TexasUrine Pnigbqr2148-16-95 20:16:00* Test Item Value Reference Range Interpretation Comments Urine Protein (test code = 5804-0) 3+ NEGATIVE H [facility] TexasUrine Glucose (UA)2019-08-25 20:16:00* Test Item Value Reference Range Interpretation Comments Urine Glucose (UA) (test code = 2349-9) NEGATIVE NEGATIVE [facility] TexasUrine Vcqmvep0565-00-60 20:16:00* Test Item Value Reference Range Interpretation Comments Urine Ketones (test code = 44871-1) NEGATIVE NEGATIVE [facility] TexasUrine Ebqgtwktojno2542-56-44 20:16:00* Test Item Value Reference Range Interpretation Comments Urine Urobilinogen (test code = 76076-8) 0.2 0.2-1 [facility] TexasUrine Ecmxhkwtc5955-91-14 20:16:00* Test Item Value Reference Range Interpretation Comments Urine Bilirubin (test code = 1978-6) SMALL NEGATIVE [facility] TexasUrine Jmcls1664-85-22 20:16:00* Test Item Value Reference Range Interpretation Comments Urine Blood (test code = 10384-9) 1+ NEGATIVE [facility] of TexasCT ABDOMEN/PELVIS TE5047-01-20 19:21:00 [facility] [address] [place] [address] Patient Name: DEO ESCUDERO MR #: [id number] : 1955 Age/Sex: 64/F Req #: [id number] Adm Physician: Ordered by: EHSAN BAE DO Report #: [id number] Location: ER Room/Bed: Procedure: CT/CT ABDOMEN/PELVIS WO Exam Date: 08/25/19 Exam Time: 183 0 REPORT STATUS: Signed EXAM: CT Abdomen and Pelvis WITHOUT contrast INDICATION: suprapubic pain 2019 302 183 COMPARISON: CT abdomen dated 07/10/2019 TECHNIQUE: Abdomen [...] COMPLICATIONS: None RADIATION DOSE: Total DLP: 478.62 mGy- cm Estimated effective dose: (DLP x 0.015 x size factor) mSv CTDI vol has been reviewed. It is below the limits set by the Radiation Protocol [facility] ([facility] FINDINGS: LINES and TUBES: There is a [...] impaction or stenosis of the lower rectum.. Mild diverticulosis. No mild wall thickening or obstruction. [...] MD 35 Transcribed By: SCAR on 08/25/19 36 COPY TO: EHSAN BAE DO Sodium Fmbts9310-69-62 19:09:00* Test Item Value Reference Range Interpretation Comments Sodium Level (test code = 2951-2) 136 136-145 [facility] TexasPotassium Mhmxu9675-34-86 19:09:00* Test Item Value Reference Range Interpretation Comments Potassium Level (test code = 2823-3) 3.4 3.5-5.1 L [facility] TexasChloride Zrjvl8642-00-08 19:09:00* Test Item Value Reference Range Interpretation Comments Chloride Level (test code = 2075-0) 99 98-107 [facility] TexasCarbon Dioxide Hsaxj0946-88-74 19:09:00* Test Item Value Reference Range Interpretation Comments Carbon Dioxide Level (test code = 2028-9) 26 22-29 [facility] TexasAnion Ksa0856-84-65 19:09:00* Test Item Value Reference Range Interpretation Comments Anion Gap (test code = 26346-7) 14.4 8-16 [facility] TexasBlood Urea Phafgyes7882-70-68 19:09:00* Test Item Value Reference Range Interpretation Comments Blood Urea Nitrogen (test code = 3094-0) 25 7-26 [facility] TexasCreatinine2020-03-03 19:09:00* Test Item Value Reference Range Interpretation Comments Creatinine (test code = 2160-0) 4.06 0.57-1.11 H [facility] TexasBUN/Creatinine Wxvsd3905-55-86 19:09:00* Test Item Value Reference Range Interpretation Comments BUN/Creatinine Ratio (test code = 3097-3) 6 6-25 [facility] TexasEstimat Glomerular Filtration Rate 2019-08-25 19:09:00* Test Item Value Reference Range Interpretation Comments Estimat Glomerular Filtration Rate (test code = 239089234) 11 >60 L Ranges were taken from the National Kidney Disease Education Program and the [facility] literature.Reference ranges:60 or greater: Svgmse04-51 ( for 3 consecutive months): Chronic kidney disease 15 or less: Kidney failureDell Seton Medical Center at The University of TexasGlucose Mpmll4387-23-13 19:09:00* Test Item Value Reference Range Interpretation Comments Glucose Level (test code = MIP6737) 189 74-118 H [facility] TexasCalcium Xgxsz6317-88-22 19:09:00* Test Item Value Reference Range Interpretation Comments Calcium Level (test code = 98394-4) 8.8 8.4-10.2 [facility] TexasTotal Kgsvwdotw3626-13-51 19:09:00* Test Item Value Reference Range Interpretation Comments Total Bilirubin (test code = 1975-2) 0.3 0.2-1.2 [facility] of TexasAspartate Amino Transf (AST/SGOT) 2019-08-25 19:09:00* Test Item Value Reference Range Interpretation Comments Aspartate Amino Transf (AST/SGOT) (test code = Aspartate Amino Transf (AST/SGOT)) 25 5-34 [facility] TexasAlanine Aminotransferase (ALT/SGPT) 2019-08-25 19:09:00* Test Item Value Reference Range Interpretation Comments Alanine Aminotransferase (ALT/SGPT) (test code = 1742-6) 18 0-55 [facility] TexasTotal Yoqryqw6135-64-45 19:09:00* Test Item Value Reference Range Interpretation Comments Total Protein (test code = 2885-2) 6.6 6.5-8.1 [facility] TexasAlbumin2020-03-03 19:09:00* Test Item Value Reference Range Interpretation Comments Albumin (test code = 1751-7) 2.8 3.5-5.0 L [facility] TexasGlobulin2020-03-03 19:09:00* Test Item Value Reference Range Interpretation Comments Globulin (test code = 23374-7) 3.8 2.3-3.5 H [facility] TexasAlbumin/Globulin Apkyj4330-85-49 19:09:00 * Test Item Value Reference Range Interpretation Comments Albumin/Globulin Ratio (test code = 1759-0) 0.7 0.8-2.0 L [facility] TexasAlkaline Myvylnxanpz5488-65-20 19:09:00* Test Item Value Reference Range Interpretation Comments Alkaline Phosphatase (test code = 6768-6) 92 40-150 [facility] Buakv7104-61-79 19:09:00* Test Item Value Reference Range Interpretation Comments Sodium Level (test code = 2951-2) 136 136-145 [facility] TexasPotassium Hxott7486-81-56 19:09:00* Test Item Value Reference Range Interpretation Comments Potassium Level (test code = 2823-3) 3.4 3.5-5.1 L [facility] TexasChloride Oxodj8141-62-61 19:09:00* Test Item Value Reference Range Interpretation Comments Chloride Level (test code = 2075-0) 99 98-107 [facility] TexasCarbon Dioxide Fzjwy7342-49-25 19:09:00* Test Item Value Reference Range Interpretation Comments Carbon Dioxide Level (test code = 2028-9) 26 22-29 [facility] TexasAnion Ndh1174-43-73 19:09:00* Test Item Value Reference Range Interpretation Comments Anion Gap (test code = 61560-9) 14.4 8-16 [facility] TexasBlood Urea Hczuyapw1393-21-33 19:09:00* Test Item Value Reference Range Interpretation Comments Blood Urea Nitrogen (test code = 3094-0) 25 7-26 [facility] TexasCreatinine2020-03-03 19:09:00* Test Item Value Reference Range Interpretation Comments Creatinine (test code = 2160-0) 4.06 0.57-1.11 H [facility] TexasBUN/Creatinine Bwrji9315-03-02 19:09:00* Test Item Value Reference Range Interpretation Comments BUN/Creatinine Ratio (test code = 3097-3) 6 6-25 [facility] TexasEstimat Glomerular Filtration Rate 2019-08-25 19:09:00* Test Item Value Reference Range Interpretation Comments Estimat Glomerular Filtration Rate (test code = 431075717) 11 >60 L Ranges were taken from the National Kidney Disease Education Program and the [facility] literature.Reference ranges:60 or greater: Qjioho11-16 ( for 3 consecutive months): Chronic kidney disease 15 or less: Kidney failureDell Seton Medical Center at The University of TexasGlucose Khmkq8164-01-62 19:09:00* Test Item Value Reference Range Interpretation Comments Glucose Level (test code = UXC6165) 189 74-118 H [facility] TexasCalcium Modtd9293-70-17 19:09:00* Test Item Value Reference Range Interpretation Comments Calcium Level (test code = 57434-1) 8.8 8.4-10.2 [facility] TexasTotal Oczbsuggl6489-96-39 19:09:00* Test Item Value Reference Range Interpretation Comments Total Bilirubin (test code = 1975-2) 0.3 0.2-1.2 [facility] of TexasAspartate Amino Transf (AST/SGOT) 2019-08-25 19:09:00* Test Item Value Reference Range Interpretation Comments Aspartate Amino Transf (AST/SGOT) (test code = Aspartate Amino Transf (AST/SGOT)) 25 5-34 [facility] TexasAlanine Aminotransferase (ALT/SGPT) 2019-08-25 19:09:00* Test Item Value Reference Range Interpretation Comments Alanine Aminotransferase (ALT/SGPT) (test code = 1742-6) 18 0-55 [facility] TexasTotal Xllutpp7413-36-25 19:09:00* Test Item Value Reference Range Interpretation Comments Total Protein (test code = 2885-2) 6.6 6.5-8.1 [facility] TexasAlbumin2020-03-03 19:09:00* Test Item Value Reference Range Interpretation Comments Albumin (test code = 1751-7) 2.8 3.5-5.0 L [facility] TexasGlobulin2020-03-03 19:09:00* Test Item Value Reference Range Interpretation Comments Globulin (test code = 87050-8) 3.8 2.3-3.5 H [facility] TexasAlbumin/Globulin Ggvbn3352-18-95 19:09:00 * Test Item Value Reference Range Interpretation Comments Albumin/Globulin Ratio (test code = 1759-0) 0.7 0.8-2.0 L [facility] TexasAlkaline Pbpqyruzvbx1116-05-52 19:09:00* Test Item Value Reference Range Interpretation Comments Alkaline Phosphatase (test code = 6768-6) 92 40-150 [facility] TexasWhite Blood Lghwu5757-75-35 19:08:00* Test Item Value Reference Range Interpretation Comments White Blood Count (test code = 6690-2) 9.36 4.8-10.8 [facility] TexasRed Blood Kwvru3926-93-15 19:08:00* Test Item Value Reference Range Interpretation Comments Red Blood Count (test code = 789-8) 4.91 3.6-5.1 [facility] [facility] TexasHemoglobin2020-03-03 19:08:00* Test Item Value Reference Range Interpretation Comments Hemoglobin (test code = 38111-1) 13.8 12.0-16.0 [facility] TexasHematocrit2020-03-03 19:08:00* Test Item Value Reference Range Interpretation Comments Hematocrit (test code = 4544-3) 42.3 34.2-44.1 [facility] TexasMean Corpuscular Avhqgk4014-37-53 19:08:00* Test Item Value Reference Range Interpretation Comments Mean Corpuscular Volume (test code = 787-2) 86.2 81-99 [facility] TexasMean Corpuscular Dnxvedlayh3479-07-49 19:08:00* Test Item Value Reference Range Interpretation Comments Mean Corpuscular Hemoglobin (test code = 785-6) 28.1 28-32 [facility] TexasMean Corpuscular Hemoglobin Concent 2019-08-25 19:08:00* Test Item Value Reference Range Interpretation Comments Mean Corpuscular Hemoglobin Concent (test code = 786-4) 32.6 31-35 [facility] TexasRed Cell Distribution Ajbvv6810-62-99 19:08:00* Test Item Value Reference Range Interpretation Comments Red Cell Distribution Width (test code = 42381-4) 15.4 11.7 -14.4 H [facility] TexasPlatelet Gzgxc1234-99-35 19:08:00* Test Item Value Reference Range Interpretation Comments Platelet Count (test code = 777-3) 397 140-360 H [facility] TexasNeutrophils (%) (Auto)2019-08-25 19:08:00 * Test Item Value Reference Range Interpretation Comments Neutrophils (%) (Auto) (test code = 31771-2) 63.2 38.7-80.0 [facility] TexasLymphocytes (%) (Auto)2019-08-25 19:08:00 * Test Item Value Reference Range Interpretation Comments Lymphocytes (%) (Auto) (test code = 736-9) 24.9 18.0-39.1 [facility] TexasMonocytes (%) (Auto)2019-08-25 19:08:00* Test Item Value Reference Range Interpretation Comments Monocytes (%) (Auto) (test code = 5905-5) 7.7 4.4-11.3 [facility] TexasEosinophils (%) (Auto)2019-08-25 19:08:00 * Test Item Value Reference Range Interpretation Comments Eosinophils (%) (Auto) (test code = 713-8) 2.5 0.0-6.0 [facility] TexasBasophils (%) (Auto)2019-08-25 19:08:00* Test Item Value Reference Range Interpretation Comments Basophils (%) (Auto) (test code = 706-2) 1.1 0.0-1.0 H [facility] TexasIM GRANULOCYTES %2019-08-25 19:08:00* Test Item Value Reference Range Interpretation Comments IM GRANULOCYTES % (test code = IM GRANULOCYTES %) 0.6 0.0- 1.0 [facility] TexasNeutrophils # (Auto)2019-08-25 19:08:00* Test Item Value Reference Range Interpretation Comments Neutrophils # (Auto) (test code = 751-8) 5.9 2.1-6.9 [facility] TexasLymphocytes # (Auto)2019-08-25 19:08:00* Test Item Value Reference Range Interpretation Comments Lymphocytes # (Auto) (test code = 01259-5) 2.3 1.0-3.2 [facility] TexasMonocytes # (Auto)2019-08-25 19:08:00* Test Item Value Reference Range Interpretation Comments Monocytes # (Auto) (test code = 742-7) 0.7 0.2-0.8 [facility] TexasEosinophils # (Auto)2019-08-25 19:08:00* Test Item Value Reference Range Interpretation Comments Eosinophils # (Auto) (test code = 711-2) 0.2 0.0-0.4 [facility] TexasBasophils # (Auto)2019-08-25 19:08:00* Test Item Value Reference Range Interpretation Comments Basophils # (Auto) (test code = 704-7) 0.1 0.0-0.1 [facility] TexasAbsolute Immature Granulocyte (auto 2019-08-25 19:08:00* Test Item Value Reference Range Interpretation Comments Absolute Immature Granulocyte (auto (jake t code = Absolute Immature Granulocyte (auto) 0.06 0-0.1 [facility] TexasWhite Blood Wzrvf2426-34-39 19:08:00* Test Item Value Reference Range Interpretation Comments White Blood Count (test code = 6690-2) 9.36 4.8-10.8 [facility] TexasRed Blood Ynezh2534-44-43 19:08:00* Test Item Value Reference Range Interpretation Comments Red Blood Count (test code = 789-8) 4.91 3.6-5.1 [facility] TexasHemoglobin2020-03-03 19:08:00* Test Item Value Reference Range Interpretation Comments Hemoglobin (test code = 43205-8) 13.8 12.0-16.0 [facility] TexasHematocrit2020-03-03 19:08:00* Test Item Value Reference Range Interpretation Comments Hematocrit (test code = 4544-3) 42.3 34.2-44.1 [facility] TexasMean Corpuscular Wcgkpx8318-84-40 19:08:00* Test Item Value Reference Range Interpretation Comments Mean Corpuscular Volume (test code = 787-2) 86.2 81-99 [facility] TexasMean Corpuscular Tcrjskinfa6595-83-83 19:08:00* Test Item Value Reference Range Interpretation Comments Mean Corpuscular Hemoglobin (test code = 785-6) 28.1 28-32 [facility] TexasMean Corpuscular Hemoglobin Concent 2019-08-25 19:08:00* Test Item Value Reference Range Interpretation Comments Mean Corpuscular Hemoglobin Concent (test code = 786-4) 32.6 31-35 [facility] TexasRed Cell Distribution Rhjra7347-83-52 19:08:00* Test Item Value Reference Range Interpretation Comments Red Cell Distribution Width (test code = 30568-0) 15.4 11.7 -14.4 H [facility] TexasPlatelet Vwrfo7482-00-36 19:08:00* Test Item Value Reference Range Interpretation Comments Platelet Count (test code = 777-3) 397 140-360 H [facility] TexasNeutrophils (%) (Auto)2019-08-25 19:08:00 * Test Item Value Reference Range Interpretation Comments Neutrophils (%) (Auto) (test code = 80147-8) 63.2 38.7-80.0 [facility] TexasLymphocytes (%) (Auto)2019-08-25 19:08:00 * Test Item Value Reference Range Interpretation Comments Lymphocytes (%) (Auto) (test code = 736-9) 24.9 18.0-39.1 [facility] TexasMonocytes (%) (Auto)2019-08-25 19:08:00* Test Item Value Reference Range Interpretation Comments Monocytes (%) (Auto) (test code = 5905-5) 7.7 4.4-11.3 [facility] TexasEosinophils (%) (Auto)2019-08-25 19:08:00 * Test Item Value Reference Range Interpretation Comments Eosinophils (%) (Auto) (test code = 713-8) 2.5 0.0-6.0 [facility] TexasBasophils (%) (Auto)2019-08-25 19:08:00* Test Item Value Reference Range Interpretation Comments Basophils (%) (Auto) (test code = 706-2) 1.1 0.0-1.0 H [facility] TexasIM GRANULOCYTES %2019-08-25 19:08:00* Test Item Value Reference Range Interpretation Comments IM GRANULOCYTES % (test code = IM GRANULOCYTES %) 0.6 0.0- 1.0 [facility] TexasNeutrophils # (Auto)2019-08-25 19:08:00* Test Item Value Reference Range Interpretation Comments Neutrophils # (Auto) (test code = 751-8) 5.9 2.1-6.9 [facility] TexasLymphocytes # (Auto)2019-08-25 19:08:00* Test Item Value Reference Range Interpretation Comments Lymphocytes # (Auto) (test code = 04837-0) 2.3 1.0-3.2 [facility] TexasMonocytes # (Auto)2019-08-25 19:08:00* Test Item Value Reference Range Interpretation Comments Monocytes # (Auto) (test code = 742-7) 0.7 0.2-0.8 [facility] TexasEosinophils # (Auto)2019-08-25 19:08:00* Test Item Value Reference Range Interpretation Comments Eosinophils # (Auto) (test code = 711-2) 0.2 0.0-0.4 [facility] TexasBasophils # (Auto)2019-08-25 19:08:00* Test Item Value Reference Range Interpretation Comments Basophils # (Auto) (test code = 704-7) 0.1 0.0-0.1 [facility] TexasAbsolute Immature Granulocyte (auto 2019-08-25 19:08:00* Test Item Value Reference Range Interpretation Comments Absolute Immature Granulocyte (auto (jake t code = Absolute Immature Granulocyte (auto) 0.06 0-0.1 [facility] TexasBacterial urine waokwsh7980-28-59 19:00:00* Test Item Value Reference Range Interpretation Comments Urine Culture (test code = 630-4) ENTEROBACTER AEROGENES [facility] TexasBacterial urine wdvsrep2075-27-70 19:00:00* Test Item Value Reference Range Interpretation Comments Urine Culture (test code = 630-4) ENTEROBACTER AEROGENES [facility]He[facility] B Surface Antibody, Quant 2019-08-12 21:53:00* Test Item Value Reference Range Interpretation Comments Hepatitis B Surface Antibody, Quant (test code = 5194-6) <3.1 Immunity>9.9 L Status of Immunity Anti-HBs Level Inconsistent with Immunity 0.0 - 9.9Consistent with Immunity >9.9[facility] Be Cjezdxx0988-75-93 21:53:00* Test Item Value Reference Range Interpretation Comments Hepatitis Be Antigen (test code = 43960-9) Negative Negative [facility] B Core Total Fhsbiggp1793-64-56 21:53:00* Test Item Value Reference Range Interpretation Comments Hepatitis B Core Total Antibody (test code = 43194-6) Negative Negative [facility] B Surface Ljweloj1547-70-32 21:53:00* Test Item Value Reference Range Interpretation Comments Hepatitis B Surface Antigen (test code = 5196-1) Negative Negat francois [facility] B Core IgM Tnftmcer0047-46-96 21:53:00* Test Item Value Reference Range Interpretation Comments Hepatitis B Core IgM Antibody (test code = 08832-6) Negative Ne gative Performed at: [facility] [id number] Director: Kevin Lino MD, Phone: [phone] [facility] B Surface Antibody, Vdmwk6774-53-94 21:53:00* Test Item Value Reference Range Interpretation Comments Hepatitis B Surface Antibody, Quant (test code = 5194-6) <3.1 Immunity>9.9 L Status of Immunity Anti-HBs Level Inconsistent with Immunity 0.0 - 9.9Consistent with Immunity >9.9[facility] Be Djiyhdl4242-83-27 21:53:00* Test Item Value Reference Range Interpretation Comments Hepatitis Be Antigen (test code = 07853-9) Negative Negative [facility] B Core Total Bxavmace3011-35-72 21:53:00* Test Item Value Reference Range Interpretation Comments Hepatitis B Core Total Antibody (test code = 53403-0) Negative Negative [facility] B Surface Sxyetgb5157-28-77 21:53:00* Test Item Value Reference Range Interpretation Comments Hepatitis B Surface Antigen (test code = 5196-1) Negative Negat francois [facility] B Core IgM Xcbfxyqc6432-90-88 21:53:00* Test Item Value Reference Range Interpretation Comments Hepatitis B Core IgM Antibody (test code = 80831-3) Negative Ne gative Performed at: [facility] [id number] Director: Kevin Lino MD, Phone: [phone] Hermann Southwest Hospital B Surface Antibody, Vywae6967-95-42 21:53:00* Test Item Value Reference Range Interpretation Comments Hepatitis B Surface Antibody, Quant (test code = 5194-6) <3.1 Immunity>9.9 L Status of Immunity Anti-HBs Level Inconsistent with Immunity 0.0 - 9.9Consistent with Immunity >9.9[facility] Be Reumojg8950-85-20 21:53:00* Test Item Value Reference Range Interpretation Comments Hepatitis Be Antigen (test code = 58723-7) Negative Negative [facility] B Core Total Tdzlwgbm6982-57-13 21:53:00* Test Item Value Reference Range Interpretation Comments Hepatitis B Core Total Antibody (test code = 91897-2) Negative Negative [facility] B Surface Teokdij0397-46-22 21:53:00* Test Item Value Reference Range Interpretation Comments Hepatitis B Surface Antigen (test code = 5196-1) Negative Negat francois [facility] B Core IgM Vuxnrcga8773-89-18 21:53:00* Test Item Value Reference Range Interpretation Comments Hepatitis B Core IgM Antibody (test code = 12273-3) Negative Ne gative Performed at: - [facility] [id number] Director: Kevin Lino MD, Phone: [phone] Be Depfsse9435-50-14 21:53:00* Test Item Value Reference Range Interpretation Comments Hepatitis Be Antigen (test code = 44218-1) Negative Negative [facility] B Surface Vwiscxh4910-36-19 21:53:00* Test Item Value Reference Range Interpretation Comments Hepatitis B Surface Antigen (test code = 5196-1) Negative Negat francois [facility] Slzrkbt3458-74-07 15:09:00* Test Item Value Reference Range Interpretation Comments Bedside Glucose (test code = 71562-6) 107 70-120 Meter ID: [id number] [facility] Glucose 2019-08-12 15:09:00* Test Item Value Reference Range Interpretation Comments Bedside Glucose (test code = 99948-2) 107 70-120 Meter ID: [id number] Children's Hospital Glucose 2019-08-12 15:09:00* Test Item Value Reference Range Interpretation Comments Bedside Glucose (test code = 61346-5) 107 70-120 Meter ID: [id number] Behavioral Health Hospitalodium Level 2019-08-12 05:46:00* Test Item Value Reference Range Interpretation Comments Sodium Level (test code = 2951-2) 142 136-145 [facility] TexasPotassium Jxgee1877-48-71 05:46:00* Test Item Value Reference Range Interpretation Comments Potassium Level (test code = 2823-3) 3.6 3.5-5.1 [facility] TexasChloride Pckwx5361-67-15 05:46:00* Test Item Value Reference Range Interpretation Comments Chloride Level (test code = 2075-0) 107 98-107 [facility] TexasCarbon Dioxide Aynzc3445-44-65 05:46:00* Test Item Value Reference Range Interpretation Comments Carbon Dioxide Level (test code = 2028-9) 24 22-29 [facility] TexasAnion Ipa6319-80-49 05:46:00* Test Item Value Reference Range Interpretation Comments Anion Gap (test code = 96192-5) 14.6 8-16 [facility] TexasBlood Urea Dhzijzxr3522-75-81 05:46:00* Test Item Value Reference Range Interpretation Comments Blood Urea Nitrogen (test code = 3094-0) 26 7-26 [facility] TexasCreatinine2020-02-19 05:46:00* Test Item Value Reference Range Interpretation Comments Creatinine (test code = 2160-0) 5.47 0.57-1.11 H [facility] TexasBUN/Creatinine Vpawj5632-16-29 05:46:00* Test Item Value Reference Range Interpretation Comments BUN/Creatinine Ratio (test code = 3097-3) 5 6-25 L [facility] TexasEstimat Glomerular Filtration Rate 2019-08-12 05:46:00* Test Item Value Reference Range Interpretation Comments Estimat Glomerular Filtration Rate (test code = 616028960) 8 >60 L Ranges were taken from the National Kidney Disease Education Program and the [facility] Kid[facility] Foundation literature.Reference ranges:60 or greater: Wdprjt56-24 ( for 3 consecutive months): Chronic kidney disease 15 or less: Kidney failureDell Seton Medical Center at [facility] University of TexasGlucose Hpige4366-54-52 05:46:00* Test Item Value Reference Range Interpretation Comments Glucose Level (test code = UVQ4492) 78 74-118 [facility] TexasCalcium Tfvaq4297-18-95 05:46:00* Test Item Value Reference Range Interpretation Comments Calcium Level (test code = 06890-3) 7.9 8.4-10.2 L [facility] TexasWhite Blood Mtewf2822-82-14 05:29:00* Test Item Value Reference Range Interpretation Comments White Blood Count (test code = 6690-2) 8.99 4.8-10.8 [facility] TexasRed Blood Iuezo5689-96-95 05:29:00* Test Item Value Reference Range Interpretation Comments Red Blood Count (test code = 789-8) 4.49 3.6-5.1 [facility] TexasHemoglobin2020-02-19 05:29:00* Test Item Value Reference Range Interpretation Comments Hemoglobin (test code = 00133-6) 12.4 12.0-16.0 [facility] TexasHematocrit2020-02-19 05:29:00* Test Item Value Reference Range Interpretation Comments Hematocrit (test code = 4544-3) 40.1 34.2-44.1 [facility] TexasMean Corpuscular Alnubi4865-88-55 05:29:00* Test Item Value Reference Range Interpretation Comments Mean Corpuscular Volume (test code = 787-2) 89.3 81-99 [facility] TexasMean Corpuscular Tfkzrfdhhg4345-27-59 05:29:00* Test Item Value Reference Range Interpretation Comments Mean Corpuscular Hemoglobin (test code = 785-6) 27.6 28-32 L [facility] TexasMean Corpuscular Hemoglobin Concent 2019-08-12 05:29:00* Test Item Value Reference Range Interpretation Comments Mean Corpuscular Hemoglobin Concent (test code = 786-4) 30.9 31-35 L [facility] TexasRed Cell Distribution Yjbzi3136-76-80 05:29:00* Test Item Value Reference Range Interpretation Comments Red Cell Distribution Width (test code = 38236-4) 16.3 11.7 -14.4 H [facility] TexasPlatelet Llmjs0679-84-81 05:29:00* Test Item Value Reference Range Interpretation Comments Platelet Count (test code = 777-3) 482 140-360 H [facility] TexasNeutrophils (%) (Auto)2019-08-12 05:29:00 * Test Item Value Reference Range Interpretation Comments Neutrophils (%) (Auto) (test code = 12244-6) 63.6 38.7-80.0 [facility] TexasLymphocytes (%) (Auto)2019-08-12 05:29:00 * Test Item Value Reference Range Interpretation Comments Lymphocytes (%) (Auto) (test code = 736-9) 25.0 18.0-39.1 [facility] TexasMonocytes (%) (Auto)2019-08-12 05:29:00* Test Item Value Reference Range Interpretation Comments Monocytes (%) (Auto) (test code = 5905-5) 6.3 4.4-11.3 [facility] TexasEosinophils (%) (Auto)2019-08-12 05:29:00 * Test Item Value Reference Range Interpretation Comments Eosinophils (%) (Auto) (test code = 713-8) 3.8 0.0-6.0 [facility] TexasBasophils (%) (Auto)2019-08-12 05:29:00* Test Item Value Reference Range Interpretation Comments Basophils (%) (Auto) (test code = 706-2) 0.9 0.0-1.0 [facility] TexasIM GRANULOCYTES %2019-08-12 05:29:00* Test Item Value Reference Range Interpretation Comments IM GRANULOCYTES % (test code = IM GRANULOCYTES %) 0.4 0.0- 1.0 [facility] TexasNeutrophils # (Auto)2019-08-12 05:29:00* Test Item Value Reference Range Interpretation Comments Neutrophils # (Auto) (test code = 751-8) 5.7 2.1-6.9 [facility] TexasLymphocytes # (Auto)2019-08-12 05:29:00* Test Item Value Reference Range Interpretation Comments Lymphocytes # (Auto) (test code = 56226-3) 2.3 1.0-3.2 [facility] TexasMonocytes # (Auto)2019-08-12 05:29:00* Test Item Value Reference Range Interpretation Comments Monocytes # (Auto) (test code = 742-7) 0.6 0.2-0.8 [facility] TexasEosinophils # (Auto)2019-08-12 05:29:00* Test Item Value Reference Range Interpretation Comments Eosinophils # (Auto) (test code = 711-2) 0.3 0.0-0.4 [facility] TexasBasophils # (Auto)2019-08-12 05:29:00* Test Item Value Reference Range Interpretation Comments Basophils # (Auto) (test code = 704-7) 0.1 0.0-0.1 [facility] TexasAbsolute Immature Granulocyte (auto 2019-08-12 05:29:00* Test Item Value Reference Range Interpretation Comments Absolute Immature Granulocyte (auto (jake t code = Absolute Immature Granulocyte (auto) 0.04 0-0.1 [facility] e antigen detection by enzyme ddjpihmvneh7613-13-91 06:25:00* Test Item Value Reference Range Interpretation Comments Hepatitis Be Antigen (test code = 77061-8) Negative Negative [facility] B virus e antigen detection by enzyme yfcdbeeqzrk8223-20-56 06:25:00* Test Item Value Reference Range Interpretation Comments Hepatitis Be Antigen (test code = 23554-0) Negative Negative [facility] TexasPhosphorus Mhjnz2410-41-66 05:23:00* Test Item Value Reference Range Interpretation Comments Phosphorus Level (test code = KXI9809) 4.3 2.3-4.7 [facility] TexasMagnesium Hncsv9060-35-19 05:23:00* Test Item Value Reference Range Interpretation Comments Magnesium Level (test code = 49617-1) 1.9 1.3-2.1 [facility] TexasPhosphorus Iufvk9446-48-98 05:23:00* Test Item Value Reference Range Interpretation Comments Phosphorus Level (test code = LMT6040) 4.3 2.3-4.7 [facility] TexasMagnesium Eynwg6709-70-95 05:23:00* Test Item Value Reference Range Interpretation Comments Magnesium Level (test code = 82536-9) 1.9 1.3-2.1 [facility] TexasPhosphorus Ifvcw1229-83-60 05:23:00* Test Item Value Reference Range Interpretation Comments Phosphorus Level (test code = DCA9507) 4.3 2.3-4.7 [facility] TexasMagnesium Ujaro6708-08-82 05:23:00* Test Item Value Reference Range Interpretation Comments Magnesium Level (test code = 87586-0) 1.9 1.3-2.1 [facility] TexasTotal Krbvrijoz1627-65-16 23:32:00* Test Item Value Reference Range Interpretation Comments Total Bilirubin (test code = 1975-2) 0.4 0.2-1.2 [facility] TexasAspartate Amino Transf (AST/SGOT) 2019-08-10 23:32:00* Test Item Value Reference Range Interpretation Comments Aspartate Amino Transf (AST/SGOT) (test code = Aspartate Amino Transf (AST/SGOT)) 12 5-34 [facility] TexasAlanine Aminotransferase (ALT/SGPT) 2019-08-10 23:32:00* Test Item Value Reference Range Interpretation Comments Alanine Aminotransferase (ALT/SGPT) (test code = 1742-6) 8 0-55 [facility] TexasTotal Fioqmji2349-43-98 23:32:00* Test Item Value Reference Range Interpretation Comments Total Protein (test code = 2885-2) 5.6 6.5-8.1 L [facility] TexasAlbumin2020-02-17 23:32:00* Test Item Value Reference Range Interpretation Comments Albumin (test code = 1751-7) 2.0 3.5-5.0 L [facility] TexasGlobulin2020-02-17 23:32:00* Test Item Value Reference Range Interpretation Comments Globulin (test code = 34471-2) 3.6 2.3-3.5 H [facility] TexasAlbumin/Globulin Jvuqt9160-96-55 23:32:00 * Test Item Value Reference Range Interpretation Comments Albumin/Globulin Ratio (test code = 1759-0) 0.6 0.8-2.0 L [facility] TexasAlkaline Mmhlqpstxpr5984-00-12 23:32:00* Test Item Value Reference Range Interpretation Comments Alkaline Phosphatase (test code = 6768-6) 77 40-150 [facility] TexasProthrombin Deth8443-33-61 23:23:00* Test Item Value Reference Range Interpretation Comments Prothrombin Time (test code = 5902-2) 13.3 11.9-14.5 [facility] TexasProthromb Time International Ratio 2019-08-10 23:23:00* Test Item Value Reference Range Interpretation Comments Prothromb Time International Ratio (test code = 6301-6) 0.96 Oral Anticoagulant Therapy INR Values:1. Low Intensity Therapy 1.5 - 2.02 . Moderate Intensity Therapy 2.0 - 3.03. High Intensity Therapy(1) 2.5 - 3. 54. High Intensity Therapy(2) 3.0 - 4.05. Panic Value INR > 5.0 [facility] [facility]th[facility] [id number] 23:23:00* Test Item Value Reference Range Interpretation Comments Prothrombin Time (test code = 5902-2) 13.3 11.9-14.5 [facility] TexasProth[facility] International Ratio 2019-08-10 23:23:00* Test Item Value Reference Range Interpretation Comments Prothromb Time International Ratio (test code = 6301-6) 0.96 Oral Anticoagulant Therapy INR Values:1. Low Intensity Therapy 1.5 - 2.02 . Moderate Intensity Therapy 2.0 - 3.03. High Intensity Therapy(1) 2.5 - 3. 54. High Intensity Therapy(2) 3.0 - 4.05. Panic Value INR > 5.0 [facility] [id number] 23:23:00* Test Item Value Reference Range Interpretation Comments Prothrombin Time (test code = 5902-2) 13.3 11.9-14.5 [facility] Texas[facility] Time International Ratio 2019-08-10 23:23:00* Test Item Value Reference Range Interpretation Comments Prothromb Time International Ratio (test code = 6301-6) 0.96 Oral Anticoagulant Therapy INR Values:1. Low Intensity Therapy 1.5 - 2.02 . Moderate Intensity Therapy 2.0 - 3.03. High Intensity Therapy(1) 2.5 - 3. 54. High Intensity Therapy(2) 3.0 - 4.05. Panic Value INR > 5.0 [facility] [id number] 23:23:00* Test Item Value Reference Range Interpretation Comments Prothrombin Time (test code = 5902-2) 13.3 11.9-14.5 [facility] Texas[facility] Time International Ratio 2019-08-10 23:23:00* Test Item Value Reference Range Interpretation Comments Prothromb Time International Ratio (test code = 6301-6) 0.96 Oral Anticoagulant Therapy INR Values:1. Low Intensity Therapy 1.5 - 2.02 . Moderate Intensity Therapy 2.0 - 3.03. High Intensity Therapy(1) 2.5 - 3. 54. High Intensity Therapy(2) 3.0 - 4.05. Panic Value INR > 5.0 [facility] TexasCH[facility] SINGLE (PORTABLE)2019-08-10 21:12:00 [facility] [address] [place] [address] Patient Name: DEO ESCUDERO MR #: [id number] : 1955 Age/Sex: 64/F Req #: [id number] Adm Physician: Ordered by: JOSR SAENZ MD Report #: [id number] Location: OR Room/Bed: Procedure: [id number] DX/C HEST SINGLE (PORTABLE) Exam Date: Exam [...] 9:14 PM Dictated By: VLAD JOHNSON [facility] Signed By: VLAD JOHNSON MD on 08/10/192113 Transcribed By: SCAR on 2113 COPY TO: JOSR SAENZ MD ABDOMEN-1VIEW ([facility]) 2019-08-10 13:39:00 [place] [address] Patient Name: DEO ESCUDERO MR #: [id number] : 1955 Age/Sex: 64/F Req #: [id number] Adm Physician: CELENA CHRISTENSEN MD Ordered by: EHSAN BAE DO Report #: [id number] Location: [facility] Room/Bed: [place] [address] Procedure: [id number] DX/AB DOMEN-1VIEW (KUB) Exam Date: 08/10/19 Exam Time: 120 [...] 08/10/19 1341 COPY TO: EHSAN BAE DO [id number] 12:08:00* Test Item Value Reference Range Interpretation Comments GLUBED (test code = GLUBED) 137 mg/dL 74-106 H Performed by certified facilities operator at [facility] [id number] 05:52:00* Test Item Value Reference Range Interpretation Comments GLUBED (test code = GLUBED) 107 mg/dL 74-106 H Performed by certified facilities operator at [facility] URINALYSIS [id number] 02:18:00* Test Item Value Reference Range Interpretation [...] FEW SPECIMEN COMMENTS: may straight cathUrine Source? [id number] 01:40:00* Test Item Value Reference Range Interpretation Comments GLUBED (test code = GLUBED) 129 mg/dL 74-106 H Performed by certified facilities operator at [facility] [id number] 17:42:00* Test Item Value Reference Range Interpretation Comments GLUBED (test code = GLUBED) 122 mg/dL 74-106 H Performed by certified facilities operator at [facility] [id number] 12:11:00* Test Item Value Reference Range Interpretation Comments GLUBED (test code = GLUBED) 111 mg/dL 74-106 H Performed by certified facilities operator at [facility] BASIC METABOLIC [id number] 12:03:00* Test Item Value Reference Range Interpretation [...] CA) 7.6 mg/dL 8.5-10.1 L BASIC METABOLIC [id number] 11:59:00* Test Item Value Reference Range Interpretation [...] code = CA) mg/dL 8.5-10.1 CBC W/AUTO [id number] 11:23:00* Test Item Value Reference Range Interpretation [...] code = NRBC#) 0.00 K/mm3 0.0-0.1 N [id number] 06:00:00* Test Item Value Reference Range Interpretation Comments GLUBED (test code = GLUBED) 88 mg/dL 74-106 N Performed by certified facilities operator at [facility] [id number] 18:28:00* Test Item Value Reference Range Interpretation Comments GLUBED (test code = GLUBED) 94 mg/dL 74-106 N Performed by certified facilities operator at [facility] - CT HEAD/BRAIN W/O [id number] 14:49:00 Name: DEO ESCUDERO [facility] : 1955 Age/S: 64 / F [address] [facility] Unit #: [id number] Loc: [place] [address] Phys: Francesco Clement Griffiths DO Acct: [id number] Dis Date: Status: ADM IN PHONE #: [phone] Exam Date: 07/28/2019 1400 FAX #: [phone] Reason: INCREASED DROWSINESS EXAMS: CPT CODE: [id number] CT HEAD/BRAIN W/O CONT 30038 HISTORY: INCREASED DROWSINESS TECHNIQUE: Noncontrast 2.5 mm [...] similar to th e prior exam. Location: [facility] at 1449 Reported and sig edilberto by: Wade Adams MD PAGE 1 Signed Report (CONTINUED) Name: DEO ESCUDERO [facility] : 1955 Age/S: 64 / F [address] Unit #: [id number] Loc: [place] [address] Phys: Francesco Clement DO Acct: [id number] Dis Date: Status: ADM IN PHONE #: [phone] Exam Date: 07/28/2019 1400 FAX #: [phone] Reason: INCREASED DROWSINESS EXAMS: CPT CODE: [id number] CT HEAD/BRAIN W/O CONT 53226 < Continued> CC: Francesco Clement DO Technologist:Flora Mayen RT(R) CTDI: DLP: Trnscb Date/Time: 07/28/2019 (1449) t.SDR.RR31 Orig Print D/T: S: 07/28/2019 (8513) PAGE 2 Signed Report [id number] 12:34:00* Test Item Value Reference Range Interpretation Comments GLUBED (test code = GLUBED) 157 mg/dL 74-106 H Performed by certified facilities operator at [facility] [id number] 06:00:00* Test Item Value Reference Range Interpretation Comments GLUBED (test code = GLUBED) 107 mg/dL 74-106 H Performed by certified facilities operator at [facility] [id number] 00:14:00* Test Item Value Reference Range Interpretation Comments GLUBED (test code = GLUBED) 115 mg/dL 74-106 H Performed by certified facilities operator at [facility] [id number] 18:26:00* Test Item Value Reference Range Interpretation Comments GLUBED (test code = GLUBED) 104 mg/dL 74-106 N Performed by certified facilities [facility]ified Nurse~ BASIC METABOLIC [id number] 11:56:00* Test Item Value Reference Range Interpretation [...] CA) 7.5 mg/dL 8.5-10.1 L BASIC METABOLIC [id number] 11:50:00* Test Item Value Reference Range Interpretation [...] code = CA) mg/dL 8.5-10.1 CBC W/AUTO [id number] 11:33:00* Test Item Value Reference Range Interpretation [...] code = NRBC#) 0.00 K/mm3 0.0-0.1 N [id number] 06:56:00* Test Item Value Reference Range Interpretation Comments GLUBED (test code = GLUBED) 90 mg/dL 74-106 N Performed by certified facilities operator at [facility] [id number] 00:33:00* Test Item Value Reference Range Interpretation Comments GLUBED (test code = GLUBED) 152 mg/dL 74-106 H Performed by certified facilities operator at [facility] [id number] 20:28:00* Test Item Value Reference Range Interpretation Comments GLUBED (test code = GLUBED) 183 mg/dL 74-106 H Performed by certified facilities operator at [facility] [id number] 16:57:00* Test Item Value Reference Range Interpretation Comments GLUBED (test code = GLUBED) 169 mg/dL 74-106 H Performed by certified facilities operator at [facility] [id number] 11:42:00* Test Item Value Reference Range Interpretation Comments GLUBED (test code = GLUBED) 128 mg/dL 74-106 H Performed by certified facilities operator at [facility] [id number] 07:36:00* Test Item Value Reference Range Interpretation Comments GLUBED (test code = GLUBED) 108 mg/dL 74-106 H Performed by certified facilities operator at [facility] [id number] 06:27:00* Test Item Value Reference Range Interpretation Comments GLUBED (test code = GLUBED) 102 mg/dL 74-106 N Performed by certified facilities operator at [facility] [id number] 00:16:00* Test Item Value Reference Range Interpretation Comments GLUBED (test code = GLUBED) 138 mg/dL 74-106 H Performed by certified facilities operator at [facility] [id number] 20:28:00* Test Item Value Reference Range Interpretation Comments GLUBED (test code = GLUBED) 134 mg/dL 74-106 H Performed by certified facilities operator at [facility] [id number] 17:32:00* Test Item Value Reference Range Interpretation Comments GLUBED (test code = GLUBED) 107 mg/dL 74-106 H Performed by certified facilities operator at [facility] [id number] 11:36:00* Test Item Value Reference Range Interpretation Comments GLUBED (test code = GLUBED) 136 mg/dL 74-106 H Performed by certified facilities operator at [facility] [id number] 05:28:00* Test Item Value Reference Range Interpretation Comments GLUBED (test code = GLUBED) 121 mg/dL 74-106 H Performed by certified facilities operator at [facility] [id number] 20:08:00* Test Item Value Reference Range Interpretation Comments GLUBED (test code = GLUBED) 169 mg/dL 74-106 H Performed by certified facilities operator at [facility] [id number] 17:43:00* Test Item Value Reference Range Interpretation Comments GLUBED (test code = GLUBED) 142 mg/dL 74-106 H Performed by certified facilities operator at [facility] [id number] 14:04:00* Test Item Value Reference Range Interpretation Comments GLUBED (test code = GLUBED) 137 mg/dL 74-106 H Performed by certified facilities operator at [facility] [id number] 11:03:00* Test Item Value Reference Range Interpretation Comments GLUBED (test code = GLUBED) 141 mg/dL 74-106 H Performed by certified facilities operator at [facility] [id number] 08:42:00* Test Item Value Reference Range Interpretation Comments GLUBED (test code = GLUBED) 119 mg/dL 74-106 H Performed by certified facilities operator at [facility] BASIC METABOLIC [id number] 08:40:00* Test Item Value Reference Range Interpretation [...] CA) 7.2 mg/dL 8.5-10.1 L BASIC METABOLIC [id number] 08:35:00* Test Item Value Reference Range Interpretation [...] code = CA) mg/dL 8.5-10.1 CBC W/AUTO [id number] 07:56:00* Test Item Value Reference Range Interpretation [...] DIFF REQUIRED (test code = MDIFF) NO [id number] 06:13:00* Test Item Value Reference Range Interpretation Comments GLUBED (test code = GLUBED) 123 mg/dL 74-106 H Performed by certified facilities operator at [facility] [id number] 20:48:00* Test Item Value Reference Range Interpretation Comments GLUBED (test code = GLUBED) 147 mg/dL 74-106 H Performed by certified facilities operator at [facility] [id number] 19:37:00* Test Item Value Reference Range Interpretation Comments GLUBED (test code = GLUBED) 143 mg/dL 74-106 H Performed by certified facilities operator at [facility] [id number] 11:49:00* Test Item Value Reference Range Interpretation Comments GLUBED (test code = GLUBED) 116 mg/dL 74-106 H Performed by certified facilities operator at [facility] [id number] 08:42:00* Test Item Value Reference Range Interpretation Comments GLUBED (test code = GLUBED) 118 mg/dL 74-106 H Performed by certified facilities operator at [facility] [id number] 06:32:00* Test Item Value Reference Range Interpretation Comments GLUBED (test code = GLUBED) 90 mg/dL 74-106 N Performed by certified facilities operator at [facility] [id number] 21:10:00* Test Item Value Reference Range Interpretation Comments GLUBED (test code = GLUBED) 129 mg/dL 74-106 H Performed by certified facilities operator at [facility] BASIC METABOLIC [id number] 18:15:00* Test Item Value Reference Range Interpretation [...] CA) 7.0 mg/dL 8.5-10.1 L BASIC METABOLIC [id number] 18:10:00* Test Item Value Reference Range Interpretation [...] CALCIUM (test code = CA) mg/dL 8.5-10.1 [id number] 16:51:00* Test Item Value Reference Range Interpretation Comments GLUBED (test code = GLUBED) 159 mg/dL 74-106 H Performed by certified facilities operator at [facility] CBC W/MANUAL [id number] 13:35:00* Test Item Value Reference Range Interpretation [...] code = IMMAT) 0 % 0-0 N [id number] 11:58:00* Test Item Value Reference Range Interpretation Comments GLUBED (test code = GLUBED) 129 mg/dL 74-106 H Performed by certified facilities operator at [facility] CBC W/MANUAL [id number] 11:34:00* Test Item Value Reference Range Interpretation [...] code = PLTMORPH) - XR CHEST 1 [id number] 11:09:00 FAX: Francesco Champagne [place]: B St: ADM FAX: Kiley Jones NP [phone] Name: DEO ESCUDERO [facility] : 1955 Age/S: 64/F [address] Unit #: [id number] Loc: V.[address]93 [place] [address] Phys: Kiley Jones NP Acct: [id number] Dis Date: Status: ADM IN PHONE #: [phone] Exam Date: 07/21/2019 0543 FAX #: [phone] Reason: r/o pneumonia EXAMS: CPT CODE: [id number] XR CHEST 1 V 88417 REASON FOR EXAM: r/o pneumonia Exam Order Date: 07/21/2019 12:00 AM Ordering Satya: Kiley Jones NP PROCEDURE: - XR CHEST [...] of cardiomegaly this may represent CHF. Location: [facility] at 1109 Reported and signed by: Wade Adams MD CC: Francesco Clement DO; Kiley Jones NP Technologist: FEMI ERIC Trntxrd Date/Time/By: 07/22/2019 (1109) : By: John CarmichaelRR31 Orig Print D/T: S: 07/22/2019 (1112) PAG E 1 Signed Report GLUBED 2019-07-22 08:05:00* Test Item Value Reference Range Interpretation Comments GLUBED (test code = GLUBED) 92 mg/dL 74-106 N Performed by certified facilities operator at [facility] [id number] 05:56:00* Test Item Value Reference Range Interpretation Comments GLUBED (test code = GLUBED) 99 mg/dL 74-106 N Performed by certified facilities operator at [facility] [id number] 02:26:00* Test Item Value Reference Range Interpretation Comments GLUBED (test code = GLUBED) 115 mg/dL 74-106 H Performed by certified facilities operator at [facility] URINALYSIS [id number] 16:37:00* Test Item Value Reference Range Interpretation [...] BACU) MODERATE #/HPF NONE A Urine Source? [id number] 16:18:00* Test Item Value Reference Range Interpretation Comments GLUBED (test code = GLUBED) 140 mg/dL 74-106 H Performed by certified facilities operator at [facility] PROCALCITONIN (PCT)2019-07-21 14:25:00* Test Item Value Reference [...] taking into account the patients history. LACTIC [id number] 13:49:00* Test Item Value Reference Range Interpretation Comments LACTIC ACID (test code = LACT) 0.7 mmol/L 0.4-1.9 N [id number] 11:47:00* Test Item Value Reference Range Interpretation Comments GLUBED (test code = GLUBED) 188 mg/dL 74-106 H Performed by certified facilities operator at [facility] [id number] 08:00:00* Test Item Value Reference Range Interpretation Comments GLUBED (test code = GLUBED) 131 mg/dL 74-106 H Performed by certified facilities operator at [facility] BASIC METABOLIC [id number] 07:22:00* Test Item Value Reference Range Interpretation [...] code = CA) 7.6 mg/dL 8.5-10.1 L [id number] 07:22:00* Test Item Value Reference Range Interpretation Comments MAGNESIUM (test code = MAG) 1.5 mg/dL 1.8-2.4 L BASIC METABOLIC [id number] 07:20:00* Test Item Value Reference Range Interpretation [...] CALCIUM (test code = CA) mg/dL 8.5-10.1 [id number] 07:20:00* Test Item Value Reference Range Interpretation Comments MAGNESIUM (test code = MAG) mg/dL 1.8-2.4 CBC W/AUTO [id number] 07:03:00* Test Item Value Reference Range Interpretation [...] code = NRBC#) 0.00 K/mm3 0.0-0.1 N [id number] 05:55:00* Test Item Value Reference Range Interpretation Comments GLUBED (test code = GLUBED) 120 mg/dL 74-106 H Performed by certified facilities operator at [facility] [id number] 00:30:00* Test Item Value Reference Range Interpretation Comments GLUBED (test code = GLUBED) 133 mg/dL 74-106 H Performed by certified facilities operator at [facility] [id number] 20:54:00* Test Item Value Reference Range Interpretation Comments GLUBED (test code = GLUBED) 158 mg/dL 74-106 H Performed by certified facilities operator at [facility] [id number] 18:09:00* Test Item Value Reference Range Interpretation Comments GLUBED (test code = GLUBED) 200 mg/dL 74-106 H Performed by certified facilities operator at [facility] PARATHYROID HORMONE [id number] 17:06:00* Test Item Value Reference Range Interpretation Comments PARATHYROID HORMONE INTACT (test code = PARAI) 96.30 pgram/mL 8.4-8 8 H VITAMIN [id number] 15:09:00* Test Item Value Reference Range Interpretation Comments VITAMIN B12 (test code = VITB12) 1507 pg/mL 193-986 H THYROID PROFILE [id number] 15:09:00* Test Item Value Reference Range Interpretation [...] HYPER : < 0.35 mIU/mL VITAMIN D 1,77-[id number] 15:09:00* Test Item Value Reference Range Interpretation Comments VITAMIN D 1,25-DIHYDROXY (test code = FPTB434) 9.3 pg/mL 19.9-79 .3 A Performed At: [address] [id number] Sanjai MD Ph:[phone] performed at: [facility] [address] [place] [address] BASIC METABOLIC [id number] 12:14:00* Test Item Value Reference Range Interpretation [...] CA) 7.3 mg/dL 8.5-10.1 L BASIC METABOLIC [id number] 12:05:00* Test Item Value Reference Range Interpretation [...] CALCIUM (test code = CA) mg/dL 8.5-10.1 [id number] 11:40:00* Test Item Value Reference Range Interpretation Comments GLUBED (test code = GLUBED) 187 mg/dL 74-106 H Performed by certified facilities operator at [facility] CBC W/AUTO [id number] 10:58:00* Test Item Value Reference Range Interpretation [...] DIFF REQUIRED (test code = MDIFF) NO [id number] 07:45:00* Test Item Value Reference Range Interpretation Comments GLUBED (test code = GLUBED) 90 mg/dL 74-106 N Performed by certified facilities operator at [facility] [id number] 06:14:00* Test Item Value Reference Range Interpretation Comments GLUBED (test code = GLUBED) 99 mg/dL 74-106 N Performed by certified facilities operator at [facility] [id number] 23:48:00* Test Item Value Reference Range Interpretation Comments GLUBED (test code = GLUBED) 134 mg/dL 74-106 H Performed by certified facilities operator at [facility] [id number] 16:33:00* Test Item Value Reference Range Interpretation Comments GLUBED (test code = GLUBED) 102 mg/dL 74-106 N Performed by certified facilities operator at [facility] [id number] 11:26:00* Test Item Value Reference Range Interpretation Comments GLUBED (test code = GLUBED) 111 mg/dL 74-106 H Performed by certified facilities operator at [facility] [id number] 08:45:00* Test Item Value Reference Range Interpretation Comments GLUBED (test code = GLUBED) 120 mg/dL 74-106 H Performed by certified facilities operator at [facility] [id number] 06:12:00* Test Item Value Reference Range Interpretation Comments GLUBED (test code = GLUBED) 110 mg/dL 74-106 H Performed by certified facilities operator at [facility] [id number] 00:00:00* Test Item Value Reference Range Interpretation Comments GLUBED (test code = GLUBED) 102 mg/dL 74-106 N Performed by certified facilities operator at [facility] [id number] 15:36:00* Test Item Value Reference Range Interpretation Comments GLUBED (test code = GLUBED) 87 mg/dL 74-106 N Performed by certified facilities operator at [facility] HEPATITIS B CORE ANTIBODY,[id number] 13:08:00* Test Item Value Reference Range Interpretation Comments HEPATITIS B CORE ANTIBODY,TOT (test code = HBCAB) Negative Nega tive Performed At: [address] [id number] Kyle L MD Ph:[phone] [id number] 11:22:00* Test Item Value Reference Range Interpretation Comments GLUBED (test code = GLUBED) 91 mg/dL 74-106 N Performed by certified facilities operator at [facility] [id number] 07:34:00* Test Item Value Reference Range Interpretation Comments GLUBED (test code = GLUBED) 75 mg/dL 74-106 N Performed by certified facilities operator at [facility] [id number] 06:15:00* Test Item Value Reference Range Interpretation Comments GLUBED (test code = GLUBED) 89 mg/dL 74-106 N Performed by certified facilities operator at [facility] AB HEPATITIS B [id number] 06:09:00* Test Item Value Reference Range Interpretation Comments AB HEPATITIS B SURFACE (test code = HBSAB) Non Reactive () Non Reactive: Inconsistent with immunity, less than 10 mIU/mL Reactive: Consistent with immunity, greater than 9.9 mIU/mLPerformed At: Lab[address] [id number] Kevin Kwon MD Ph:[phone] [id number] 01:40:00* Test Item Value Reference Range Interpretation Comments GLUBED (test code = GLUBED) 114 mg/dL 74-106 H Performed by certified facilities operator at [facility] [id number] 21:18:00* Test Item Value Reference Range Interpretation Comments GLUBED (test code = GLUBED) 161 mg/dL 74-106 H Performed by certified facilities operator at [facility] [id number] 11:16:00* Test Item Value Reference Range Interpretation Comments GLUBED (test code = GLUBED) 159 mg/dL 74-106 H Performed by certified facilities operator at [facility] BASIC METABOLIC [id number] 08:16:00* Test Item Value Reference Range Interpretation [...] CA) 7.1 mg/dL 8.5-10.1 L BASIC METABOLIC [id number] 08:05:00* Test Item Value Reference Range Interpretation [...] code = CA) mg/dL 8.5-10.1 CBC W/O [id number] 08:04:00* Test Item Value Reference Range Interpretation [...] code = MPV) 10.8 fL 6.7-11.0 N ZTVLYZ8067-26-46 07:47:00* Test Item Value Reference Range Interpretation Comments GLUBED (test code = GLUBED) 125 mg/dL 74-106 H Performed by certified facilities operator at [facility] VITAMIN [id number] 06:44:00* Test Item Value Reference Range Interpretation Comments VITAMIN B12 (test code = VITB12) 1507 pg/mL 193-986 H THYROID PROFILE W/CFR6125-55-13 06:44:00* Test Item Value Reference Range Interpretation [...] HYPER : < 0.35 mIU/mL VITAMIN D 1,24-IIJIAZLOS1513-15-24 06:44:00* Test Item Value Reference Range Interpretation Comments VITAMIN D 1,25-DIHYDROXY (test code = YILP493) pgram/mL CIVCEFO0584-06-18 06:10:00* Test Item Value Reference Range Interpretation Comments AMMONIA (test code = AMM) < 10 umol/L 11-32 L TKPOEZ8526-98-67 05:32:00* Test Item Value Reference Range Interpretation Comments GLUBED (test code = GLUBED) 113 mg/dL 74-106 H Performed by certified facilities operator at [facility] - CT HEAD/BRAIN W/O HVSQ6804-65-78 23:35:00 Name: DEO ESCUDERO [facility] : 1955 Age/S: 64 / F [address] [facility] Unit #: [id number] Loc: [place] [address] Phys: Nadia Sow MD Acct: [id number] Dis Date: Status: ADM IN PHONE #: [phone] Exam Date: 07/16/2019 230 FAX #: [phone] Reason: ams EXAMS: CPT CODE: [id number] CT HEAD/BRAIN W/O CONT 36317 DICTATION LOCATION: H48 HISTORY: Female, 64 years [...] both basal ganglia and internal capsules. at 233 Reporte d and signed by: Kathy Maria MD CC: Francesco Clement DO; Nadia Vega MD Technologist:CHRISTINE Tillman CTDI: DLP: Trnscb Date/Time: 07/16/2019 (9236) t.SHANNONW Orig Print D/T: S: 07/16/2019 (5005) PAGE 1 Signed Report [id number] 23:14:00* Test Item Value Reference Range Interpretation Comments GLUBED (test code = GLUBED) 111 mg/dL 74-106 H Performed by certified facilities operator at [facility] DLSWFW5742-27-38 16:30:00* Test Item Value Reference Range Interpretation Comments GLUBED (test code = GLUBED) 65 mg/dL 74-106 L [facility] certified [facility]ified Nurse~ VJEHXI3800-38-06 08:18:00* Test Item Value Reference Range Interpretation Comments GLUBED (test code = GLUBED) 75 mg/dL 74-106 N Performed by certified facilities operator at [facility] OSKVYR0599-94-59 06:47:00* Test Item Value Reference Range Interpretation Comments GLUBED (test code = GLUBED) 72 mg/dL 74-106 L Performed by certified facilities operator at [facility] PCTMQG8688-97-81 00:54:00* Test Item Value Reference Range Interpretation Comments GLUBED (test code = GLUBED) 82 mg/dL 74-106 N Performed by certified facilities operator at [facility] [id number] 18:39:00* Test Item Value Reference Range Interpretation Comments GLUBED (test code = GLUBED) 116 mg/dL 74-106 H Performed by certified facilities operator at [facility] URINALYSIS MWRKEYLI9735-95-66 15:45:00* Test Item Value Reference Range Interpretation [...] #/LPF FEW Urine Source? CatheterAG HEPAT B [id number] 13:17:00* Test Item Value Reference Range Interpretation Comments AG HEPAT B SURF (test code = HBSAG) Nonreactive Index Nonreactive Blood Czpbptz8481-60-64 12:08:00* Test Item Value Reference Range Interpretation Comments Blood Culture (test code = 19218928) NO GROWTH AFTER 5 DAYS, FINAL REPORT [facility] Aucgqnb3172-89-15 12:08:00* Test Item Value Reference Range Interpretation Comments Blood Culture (test code = 51136499) NO GROWTH AFTER 5 DAYS, FINAL REPORT [facility] Ykbbjdt1686-36-41 12:08:00* Test Item Value Reference Range Interpretation Comments Blood Culture (test code = 90584032) NO GROWTH AFTER 5 DAYS, [facility] Udxrawl7074-11-68 12:08:00* Test Item Value Reference Range Interpretation Comments Blood Culture (test code = 29931453) NO GROWTH AFTER 5 DAYS, FINAL REPORT [facility] TexasGLUBED2020-01-22 11:20:00* Test Item Value Reference Range Interpretation Comments GLUBED (test code = GLUBED) 73 mg/dL 74-106 L Performed by certified facilities operator at [facility] BASIC METABOLIC KPNAP8539-62-66 10:46:00* Test Item Value Reference Range Interpretation [...] code = CA) 7.8 mg/dL 8.5-10.1 L JMXKVWUTMF9169-98-64 10:46:00* Test Item Value Reference Range Interpretation Comments PHOSPHORUS (test code = PHOS) 3.7 mg/dL 2.5-4.9 N BASIC METABOLIC OESLQ7476-92-00 10:34:00* Test Item Value Reference Range Interpretation [...] CALCIUM (test code = CA) mg/dL 8.5-10.1 GEGGMIRWJV9008-99-22 10:34:00* Test Item Value Reference Range Interpretation Comments PHOSPHORUS (test code = PHOS) mg/dL 2.5-4.9 CBC W/AUTO HGUY6679-39-25 10:26:00* Test Item Value Reference Range Interpretation [...] code = NRBC#) 0.00 K/mm3 0.0-0.1 N GCLXRZ2694-68-03 07:46:00* Test Item Value Reference Range Interpretation Comments GLUBED (test code = GLUBED) 65 mg/dL 74-106 L Performed by certified facilities operator at [facility] ZNWJTN7449-79-55 05:47:00* Test Item Value Reference Range Interpretation Comments GLUBED (test code = GLUBED) 67 mg/dL 74-106 L Performed by certified facilities operator at [facility] Bedside Dymdnks0993-47-54 21:13:00* Test Item Value Reference Range Interpretation Comments Bedside Glucose (test code = 14263-0) 74 70-120 Meter ID: [id number] [facility] TexasPotassium Level 2019-07-14 12:16:00* Test Item Value Reference Range Interpretation Comments Potassium Level (test code = 2823-3) 3.5 3.5-5.1 [facility] TexasBlood Dcdsaur9853-98-65 12:08:00* Test Item Value Reference Range Interpretation Comments Blood Culture (test code = 37231566) NO GROWTH AFTER 72 HOURS [facility] TexasHepatitis B Surface Crinfdl8893-76-09 11:08:00* Test Item Value Reference Range Interpretation Comments Hepatitis B Surface Antigen (test code = 5196-1) Negative Testing performed by:Lab[address] [id number] 288Dir: Kevin Lino [facility] Campusodium Level 2019-07-13 06:02:00* Test Item Value Reference Range Interpretation Comments Sodium Level (test code = 2951-2) 139 136-145 [facility] TexasChloride Pisxo4099-55-00 06:02:00* Test Item Value Reference Range Interpretation Comments Chloride Level (test code = 2075-0) 102 98-107 [facility] TexasCarbon Dioxide Bwjzt2677-40-99 06:02:00* Test Item Value Reference Range Interpretation Comments Carbon Dioxide Level (test code = 2028-9) 25 22-29 [facility] TexasAnion Gqp6299-88-42 06:02:00* Test Item Value Reference Range Interpretation Comments Anion Gap (test code = 37506-0) 15.4 8-16 [facility] TexasBlood Urea Youqqlak8927-09-32 06:02:00* Test Item Value Reference Range Interpretation Comments Blood Urea Nitrogen (test code = 3094-0) 11 7-26 [facility] TexasCreatinine2020-01-20 06:02:00* Test Item Value Reference Range Interpretation Comments Creatinine (test code = 2160-0) 3.76 0.57-1.11 H [facility] TexasBUN/Creatinine Cabih7689-93-29 06:02:00* Test Item Value Reference Range Interpretation Comments BUN/Creatinine Ratio (test code = 3097-3) 3 6-25 L [facility] of TexasEstimat Glomerular Filtration Rate 2019-07-13 06:02:00* Test Item Value Reference Range Interpretation Comments Estimat Glomerular Filtration Rate (test code = 908639851) 12 >60 L Ranges were taken from the National Kidney Disease Education Program and the [facility] Kidney Foundation literature.Reference ranges:60 or greater: Fgpznm92-41 ( for 3 consecutive months): Chronic kidney disease 15 or less: Kidney failureDell [facility] at [facility] University of TexasGlucose Frmsg8821-34-08 06:02:00* Test Item Value Reference Range Interpretation Comments Glucose Level (test code = JUG4978) 65 74-118 L [facility] TexasCalcium Mpzyc4960-09-72 06:02:00* Test Item Value Reference Range Interpretation Comments Calcium Level (test code = 99985-4) 7.1 8.4-10.2 L [facility] TexasWhite Blood Pdhcf1733-86-12 05:56:00* Test Item Value Reference Range Interpretation Comments White Blood Count (test code = 6690-2) 8.50 4.8-10.8 [facility] of TexasRed Blood Ooaqm9401-74-61 05:56:00* Test Item Value Reference Range Interpretation Comments Red Blood Count (test code = 789-8) 3.66 3.6-5.1 [facility] TexasHemoglobin2020-01-20 05:56:00* Test Item Value Reference Range Interpretation Comments Hemoglobin (test code = 90880-1) 9.8 12.0-16.0 L [facility] TexasHematocrit2020-01-20 05:56:00* Test Item Value Reference Range Interpretation Comments Hematocrit (test code = 4544-3) 32.5 34.2-44.1 L [facility] of TexasMean Corpuscular Sxtndf5506-04-54 05:56:00* Test Item Value Reference Range Interpretation Comments Mean Corpuscular Volume (test code = 787-2) 88.8 81-99 [facility] of TexasMean Corpuscular Pemojehseu5807-97-23 05:56:00* Test Item Value Reference Range Interpretation Comments Mean Corpuscular Hemoglobin (test code = 785-6) 26.8 28-32 L [facility] of TexasMean Corpuscular Hemoglobin Concent 2019-07-13 05:56:00* Test Item Value Reference Range Interpretation Comments Mean Corpuscular Hemoglobin Concent (test code = 786-4) 30.2 31-35 L [facility] of TexasRed Cell Distribution Bgwiq5713-67-40 05:56:00* Test Item Value Reference Range Interpretation Comments Red Cell Distribution Width (test code = 29030-6) 15.0 11.7 -14.4 H [facility] of TexasPlatelet Pbhis5500-36-81 05:56:00* Test Item Value Reference Range Interpretation Comments Platelet Count (test code = 777-3) 309 140-360 [facility] TexasNeutrophils (%) (Auto)2019-07-13 05:56:00 * Test Item Value Reference Range Interpretation Comments Neutrophils (%) (Auto) (test code = 92391-5) 63.9 38.7-80.0 [facility] of TexasLymphocytes (%) (Auto)2019-07-13 05:56:00 * Test Item Value Reference Range Interpretation Comments Lymphocytes (%) (Auto) (test code = 736-9) 21.8 18.0-39.1 [facility] TexasMonocytes (%) (Auto)2019-07-13 05:56:00* Test Item Value Reference Range Interpretation Comments Monocytes (%) (Auto) (test code = 5905-5) 7.4 4.4-11.3 [facility] TexasEosinophils (%) (Auto)2019-07-13 05:56:00 * Test Item Value Reference Range Interpretation Comments Eosinophils (%) (Auto) (test code = 713-8) 4.8 0.0-6.0 [facility] TexasBasophils (%) (Auto)2019-07-13 05:56:00* Test Item Value Reference Range Interpretation Comments Basophils (%) (Auto) (test code = 706-2) 0.9 0.0-1.0 [facility] of TexasIM GRANULOCYTES %2019-07-13 05:56:00* Test Item Value Reference Range Interpretation Comments IM GRANULOCYTES % (test code = IM GRANULOCYTES %) 1.2 0.0- 1.0 H [facility] TexasNeutrophils # (Auto)2019-07-13 05:56:00* Test Item Value Reference Range Interpretation Comments Neutrophils # (Auto) (test code = 751-8) 5.4 2.1-6.9 [facility] of TexasLymphocytes # (Auto)2019-07-13 05:56:00* Test Item Value Reference Range Interpretation Comments Lymphocytes # (Auto) (test code = 76536-3) 1.9 1.0-3.2 [facility] TexasMonocytes # (Auto)2019-07-13 05:56:00* Test Item Value Reference Range Interpretation Comments Monocytes # (Auto) (test code = 742-7) 0.6 0.2-0.8 [facility] TexasEosinophils # (Auto)2019-07-13 05:56:00* Test Item Value Reference Range Interpretation Comments Eosinophils # (Auto) (test code = 711-2) 0.4 0.0-0.4 [facility] TexasBasophils # (Auto)2019-07-13 05:56:00* Test Item Value Reference Range Interpretation Comments Basophils # (Auto) (test code = 704-7) 0.1 0.0-0.1 [facility] of TexasAbsolute Immature Granulocyte (auto 2019-07-13 05:56:00* Test Item Value Reference Range Interpretation Comments Absolute Immature Granulocyte (auto (jake t code = Absolute Immature Granulocyte (auto) 0.10 0-0.1 [facility]wayCT ABDOM[facility] BE9470-67-38 16:09:00 [facility] [address] [address] Patient Name: DEO ESCUDERO MR #: [id number] : 1955 Age/Sex: 64/F Req #: [id number] Adm Physician: CELENA CHRISTENSEN MD Ordered by: Abdirashid Alford NP Report #: [id number] Location: [facility] Room/Bed: 285-1 Procedure: [id number] CT/ CT ABDOMEN WO Exam Date: 07/10/19 [...] 4:19 PM Dictated By: JOHNATHAN HEADLEY MD 18 Transcribed By: MONO SALAZAR on 07/10/19 161 COPY TO: ABDIRASHID ALFORD NP CT CHEST WO 2019-07-10 16:09:00 [address] [place] [address] Patient Name: DEO ESCUDERO MR #: [id number] : 1955 Age/Sex: 64/F Req #: [id number] Adm Physician: CELENA CHRISTENSEN MD Ordered by: Abdirashid Alford NP Report #: [id number] Location: MED/SURG3 Room/Bed: 285-1 Procedure: [id number] CT/ CT CHEST WO Exam Date: 07/10/19 Exam Time: 1506 REPORT STATUS: Signed EXAM: CT Chest and Abdomen WITHOUT intravenous contrast INDICATION: Occult infection COMPARISON: Chest CT 07/03/2019, CT abdomen and pelvis 06/29/2019 TECHNIQUE: The chest and abdomen were scanned utilizing a multidetector helical scanner from the thoracic inlet to the iliac [...] 07/10/191618 COPY TO: ABDIRASHID ALFORD NP MODIFIED BA. SWALLOW 2019-07-10 14:46:00 [address] [place] [address] Patient Name: DEO ESCUDERO MR #: [id number] : 1955 Age/Sex: 64/F Req #: [id number] Adm Physician: CELENA CHRISTENSEN MD Ordered by: CELENA CHRISTENSEN MD Report #: [id number] Location: MED/SURG3 Room/Bed: 285-1 Procedure: [id number] DX/M ODIFIED BA. SWALLOW Exam Date: 07/09/19 [...] 07/10/19 1446 COPY TO: CELENA CHRISTENSEN MD Urine CWS9352-96-41 13:01:00* Test Item Value Reference Range Interpretation Comments Urine WBC (test code = 5821-4) >50 0-5 H [facility] TexasUrine KGD4180-23-84 13:01:00* Test Item Value Reference Range Interpretation Comments Urine RBC (test code = 34336-7) >50 0-5 H [facility] TexasUrine Mhwrhnak6747-78-66 13:01:00* Test Item Value Reference Range Interpretation Comments Urine Bacteria (test code = 00001-3) MANY NONE H [facility] TexasUrine Epithelial Rsope5243-80-29 13:01:00 * Test Item Value Reference Range Interpretation Comments Urine Epithelial Cells (test code = 47464-6) MANY NONE [facility] TexasUrine UDY0212-72-79 13:01:00* Test Item Value Reference Range Interpretation Comments Urine WBC (test code = 5821-4) >50 0-5 H [facility] TexasUrine FJW6051-89-37 13:01:00* Test Item Value Reference Range Interpretation Comments Urine RBC (test code = 95022-0) >50 0-5 H [facility] TexasUrine Ctbewvsv3715-23-04 13:01:00* Test Item Value Reference Range Interpretation Comments Urine Bacteria (test code = 48582-9) MANY NONE H [facility] TexasUrine Epithelial Eospv3821-44-94 13:01:00 * Test Item Value Reference Range Interpretation Comments Urine Epithelial Cells (test code = 02583-6) MANY NONE [facility] TexasUrine Cqgeo3626-92-64 12:48:00* Test Item Value Reference Range Interpretation Comments Urine Color (test code = 5778-6) YELLOW YELLOW [facility] TexasUrine Hrcxsel8834-50-33 12:48:00* Test Item Value Reference Range Interpretation Comments Urine Clarity (test code = 66362-3) CLEAR CLEAR [facility] Specific Ffxjivy7891-15-48 12:48:00 * Test Item Value Reference Range Interpretation Comments Urine Specific [place] (test code = 5811-5) 1.015 1.010-1.02 5 [facility] TexasUrine sJ9536-83-42 12:48:00* Test Item Value Reference Range Interpretation Comments Urine pH (test code = 42649-7) 8.5 5-7 [facility] TexasUrine Leukocyte Eipaxjwf7221-27-83 12:48:00* Test Item Value Reference Range Interpretation Comments Urine Leukocyte Esterase (test code = 5799-2) TRACE NEGATIVE H [facility] TexasUrine Snffdjw1141-44-73 12:48:00* Test Item Value Reference Range Interpretation Comments Urine Nitrite (test code = 06061-5) NEGATIVE NEGATIVE [facility] TexasUrine Ywoeuyr9253-04-79 12:48:00* Test Item Value Reference Range Interpretation Comments Urine Protein (test code = 5804-0) 3+ NEGATIVE H [facility] TexasUrine Glucose (UA)2019-07-10 12:48:00* Test Item Value Reference Range Interpretation Comments Urine Glucose (UA) (test code = 2349-9) 1+ NEGATIVE H [facility] TexasUrine Pyymvkw4589-36-91 12:48:00* Test Item Value Reference Range Interpretation Comments Urine Ketones (test code = 79071-7) 2+ NEGATIVE H [facility] TexasUrine Ityirgprnprn0757-70-75 12:48:00* Test Item Value Reference Range Interpretation Comments Urine Urobilinogen (test code = 42223-2) 0.2 0.2-1 [facility] TexasUrine Ocjasgadl1223-08-76 12:48:00* Test Item Value Reference Range Interpretation Comments Urine Bilirubin (test code = 1978-6) MODERATE NEGATIVE [facility] TexasUrine Fkafl5262-39-57 12:48:00* Test Item Value Reference Range Interpretation Comments Urine Blood (test code = 74454-5) TRACE NEGATIVE [facility] TexasUrine Ecgdu9647-73-95 12:48:00* Test Item Value Reference Range Interpretation Comments Urine Color (test code = 5778-6) YELLOW YELLOW [facility] TexasUrine Qbjyhzn2209-31-61 12:48:00* Test Item Value Reference Range Interpretation Comments Urine Clarity (test code = 71491-5) CLEAR CLEAR [facility] Specific Lugvzct0387-02-70 12:48:00 * Test Item Value Reference Range Interpretation Comments Urine Specific [place] (test code = 5811-5) 1.015 1.010-1.02 5 [facility] TexasUrine tL4658-04-81 12:48:00* Test Item Value Reference Range Interpretation Comments Urine pH (test code = 52011-8) 8.5 5-7 [facility] TexasUrine Leukocyte Yqipcnvc0492-90-02 12:48:00* Test Item Value Reference Range Interpretation Comments Urine Leukocyte Esterase (test code = 5799-2) TRACE NEGATIVE H [facility] TexasUrine Nktrvrr9988-54-31 12:48:00* Test Item Value Reference Range Interpretation Comments Urine Nitrite (test code = 44869-8) NEGATIVE NEGATIVE [facility] TexasUrine Subleas7036-43-43 12:48:00* Test Item Value Reference Range Interpretation Comments Urine Protein (test code = 5804-0) 3+ NEGATIVE H [facility] TexasUrine Glucose (UA)2019-07-10 12:48:00* Test Item Value Reference Range Interpretation Comments Urine Glucose (UA) (test code = 2349-9) 1+ NEGATIVE H [facility] TexasUrine Miveahw6673-85-55 12:48:00* Test Item Value Reference Range Interpretation Comments Urine Ketones (test code = 65344-6) 2+ NEGATIVE H [facility] TexasUrine Suuzalqxuyyo3208-40-70 12:48:00* Test Item Value Reference Range Interpretation Comments Urine Urobilinogen (test code = 83787-5) 0.2 0.2-1 [facility] TexasUrine Owhgwkxop8912-94-14 12:48:00* Test Item Value Reference Range Interpretation Comments Urine Bilirubin (test code = 1978-6) MODERATE NEGATIVE [facility] TexasUrine Ggfea0320-28-04 12:48:00* Test Item Value Reference Range Interpretation Comments Urine Blood (test code = 13408-6) TRACE NEGATIVE [facility] TexasBlood qfvldwk2139-15-34 11:00:00* Test Item Value Reference Range Interpretation Comments Blood Culture (test code = 33542491) NO GROWTH AFTER 5 DAYS, FINAL REPORT [facility] zgkfkpt3802-12-20 11:00:00* Test Item Value Reference Range Interpretation Comments Blood Culture (test code = 45446821) NO GROWTH AFTER 5 DAYS, FINAL REPORT [facility] TexasCHEST SINGLE (PORTABLE)2019-07-09 16:02:00 [facility] [address] [address] Patient Name: DEO ESCUDERO MR #: [id number] : 1955 Age/Sex: 64/F Req #: [id number] Adm Physician: CELENA CHRISTENSEN MD Ordered by: VIRAL SCHULZ MD Report #: [id number] Location: MED/SURG3 Room/Bed: [facility] Procedure: [id number] DX/[facility] ST SINGLE (PORTABLE) Exam Date: 07/09/19 [...] 4:03 PM Dictated By: EHSAN CARBAJAL MD 1603 COPY TO: ODALIS SCHULZ MD Total Osxjepwqq1477-61-09 06:10:00* Test Item Value Reference Range Interpretation Comments Total Bilirubin (test code = 1975-2) 0.3 0.2-1.2 [facility] TexasAspartate Amino Transf (AST/SGOT) 2019-07-09 06:10:00* Test Item Value Reference Range Interpretation Comments Aspartate Amino Transf (AST/SGOT) (test code = Aspartate Amino Transf (AST/SGOT)) 18 5-34 [facility] TexasAlanine Aminotransferase (ALT/SGPT) 2019-07-09 06:10:00* Test Item Value Reference Range Interpretation Comments Alanine Aminotransferase (ALT/SGPT) (test code = 1742-6) 9 0-55 [facility] TexasTotal Csetkmw9663-90-48 06:10:00* Test Item Value Reference Range Interpretation Comments Total Protein (test code = 2885-2) 4.8 6.5-8.1 L [facility] TexasAlbumin2020-01-16 06:10:00* Test Item Value Reference Range Interpretation Comments Albumin (test code = 1751-7) 1.9 3.5-5.0 L [facility] TexasGlobulin2020-01-16 06:10:00* Test Item Value Reference Range Interpretation Comments Globulin (test code = 86077-9) 2.9 2.3-3.5 [facility] TexasAlbumin/Globulin Kjxwd9968-04-49 06:10:00 * Test Item Value Reference Range Interpretation Comments Albumin/Globulin Ratio (test code = 1759-0) 0.7 0.8-2.0 L [facility] TexasAlkaline Fqtyxwrrbof1137-95-50 06:10:00* Test Item Value Reference Range Interpretation Comments Alkaline Phosphatase (test code = 6768-6) 53 40-150 [facility] of TexasCT BRAIN SI8874-45-12 11:32:00 [facility] [address] [address] Patient Name: DEO ESCUDERO MR #: [id number] : 1955 Age/Sex: 64/F Req #: [id number] Adm Physician: CELENA CHRISTENSEN MD Ordered by: NADIA SOW MD Report #: [id number] Location: ICU Room/Bed: ICU [facility] Procedure: [id number] CT /CT BRAIN WO Exam Date: Exam [...] NADIA SOW MD CHEST SINGLE (PORTABLE)2019-07-07 06:47:00 [place] [address] Patient Name: DEO ESCUDERO MR #: [id number] : 1955 Age/Sex: 64/F Req #: [id number] Adm Physician: CELENA CHRISTENSEN MD Ordered by: VIRAL SCHULZ MD Report #: [id number] Location: ICU Room/Bed: ICU [facility] Procedure: [id number] DX/ELIZABETH ST SINGLE (PORTABLE) Exam Date: 07/07/19 [...] TO: VIRAL SCHULZ MD Differential Total Cells Zjczhib1975-16-29 06:43:00* Test Item Value Reference Range Interpretation Comments Differential Total Cells Counted (test code = Differen tial Total Cells Counted) 100 [facility] TexasNeutrophils % (Manual)2019-07-06 06:43:00 * Test Item Value Reference Range Interpretation Comments Neutrophils % (Manual) (test code = 17129-6) 82 40-74 H [facility] TexasLymphocytes % (Manual)2019-07-06 06:43:00 * Test Item Value Reference Range Interpretation Comments Lymphocytes % (Manual) (test code = 737-7) 15 19-48 L [facility] TexasMonocytes % (Manual)2019-07-06 06:43:00* Test Item Value Reference Range Interpretation Comments Monocytes % (Manual) (test code = 744-3) 3 3.4-9.0 L [facility] TexasPlatelet Lvponsfx9593-15-36 06:43:00* Test Item Value Reference Range Interpretation Comments Platelet Estimate (test code = 75523-2) ADEQUATE [facility] TexasPlatelet Morphology Zrdsilj4630-89-88 06:43:00* Test Item Value Reference Range Interpretation Comments Platelet Morphology Comment (test code = 61500-2) NORMAL [facility] TexasRed Cell Morphology Mzqazah2552-19-99 06:43:00* Test Item Value Reference Range Interpretation Comments Red Cell Morphology Comment (test code = 6742-1) NORMAL [facility] TexasDifferential Total Cells Counted 2019-07-06 06:43:00* Test Item Value Reference Range Interpretation Comments Differential Total Cells Counted (test code = Differen tial Total Cells Counted) 100 [facility] TexasNeutrophils % (Manual)2019-07-06 06:43:00 * Test Item Value Reference Range Interpretation Comments Neutrophils % (Manual) (test code = 98776-6) 82 40-74 H [facility] TexasLymphocytes % (Manual)2019-07-06 06:43:00 * Test Item Value Reference Range Interpretation Comments Lymphocytes % (Manual) (test code = 737-7) 15 19-48 L [facility] TexasMonocytes % (Manual)2019-07-06 06:43:00* Test Item Value Reference Range Interpretation Comments Monocytes % (Manual) (test code = 744-3) 3 3.4-9.0 L [facility] TexasPlatelet Ifpmtmgh0864-45-31 06:43:00* Test Item Value Reference Range Interpretation Comments Platelet Estimate (test code = 94310-5) ADEQUATE [facility] TexasPlatelet Morphology Tpoeotw2904-40-26 06:43:00* Test Item Value Reference Range Interpretation Comments Platelet Morphology Comment (test code = 18739-5) NORMAL [facility] TexasRed Cell Morphology Nhjufaj6562-18-90 06:43:00* Test Item Value Reference Range Interpretation Comments Red Cell Morphology Comment (test code = 6742-1) NORMAL [facility] TexasDifferential Total Cells Counted 2019-07-06 06:43:00* Test Item Value Reference Range Interpretation Comments Differential Total Cells Counted (test code = Differen tial Total Cells Counted) 100 [facility] TexasNeutrophils % (Manual)2019-07-06 06:43:00 * Test Item Value Reference Range Interpretation Comments Neutrophils % (Manual) (test code = 54195-4) 82 40-74 H [facility] TexasLymphocytes % (Manual)2019-07-06 06:43:00 * Test Item Value Reference Range Interpretation Comments Lymphocytes % (Manual) (test code = 737-7) 15 19-48 L [facility] CenterMon[facility] % (Manual)2019-07-06 06:43:00* Test Item Value Reference Range Interpretation Comments Monocytes % (Manual) (test code = 744-3) 3 3.4-9.0 L [facility] TexasPlatelet Rgrzjvho6075-02-29 06:43:00* Test Item Value Reference Range Interpretation Comments Platelet Estimate (test code = 40331-3) ADEQUATE [facility] TexasPlatelet Morphology Mgpwjju7374-11-26 06:43:00* Test Item Value Reference Range Interpretation Comments Platelet Morphology Comment (test code = 11167-1) NORMAL [facility] TexasRed Cell Morphology Wazyeqv5605-66-10 06:43:00* Test Item Value Reference Range Interpretation Comments Red Cell Morphology Comment (test code = 6742-1) NORMAL [facility] TexasDifferential Total Cells Counted 2019-07-06 06:43:00* Test Item Value Reference Range Interpretation Comments Differential Total Cells Counted (test code = Differen tial Total Cells Counted) 100 [facility] TexasNeutrophils % (Manual)2019-07-06 06:43:00 * Test Item Value Reference Range Interpretation Comments Neutrophils % (Manual) (test code = 63192-3) 82 40-74 H [facility] TexasLymphocytes % (Manual)2019-07-06 06:43:00 * Test Item Value Reference Range Interpretation Comments Lymphocytes % (Manual) (test code = 737-7) 15 19-48 L [facility] TexasMonocytes % (Manual)2019-07-06 06:43:00* Test Item Value Reference Range Interpretation Comments Monocytes % (Manual) (test code = 744-3) 3 3.4-9.0 L [facility] TexasPlatelet Zldvurfn1509-38-63 06:43:00* Test Item Value Reference Range Interpretation Comments Platelet Estimate (test code = 40372-0) ADEQUATE [facility] TexasPlatelet Morphology Xlgpwcl7310-37-94 06:43:00* Test Item Value Reference Range Interpretation Comments Platelet Morphology Comment (test code = 69737-2) NORMAL [facility] TexasRed Cell Morphology Vjzobqo4707-36-54 06:43:00* Test Item Value Reference Range Interpretation Comments Red Cell Morphology Comment (test code = 6742-1) NORMAL [facility] TexasDifferential Total Cells Counted 2019-07-06 06:43:00* Test Item Value Reference Range Interpretation Comments Differential Total Cells Counted (test code = Differrocco tial Total Cells Counted) 100 [facility] TexasNeutrophils % (Manual)2019-07-06 06:43:00 * Test Item Value Reference Range Interpretation Comments Neutrophils % (Manual) (test code = 12993-7) 82 40-74 H [facility] TexasLymphocytes % (Manual)2019-07-06 06:43:00 * Test Item Value Reference Range Interpretation Comments Lymphocytes % (Manual) (test code = 737-7) 15 19-48 L [facility] TexasMonocytes % (Manual)2019-07-06 06:43:00* Test Item Value Reference Range Interpretation Comments Monocytes % (Manual) (test code = 744-3) 3 3.4-9.0 L [facility] TexasPlatelet Iacpbkmc5071-76-49 06:43:00* Test Item Value Reference Range Interpretation Comments Platelet Estimate (test code = 51576-9) ADEQUATE [facility] TexasPlatelet Morphology Ichjpnp4634-88-42 06:43:00* Test Item Value Reference Range Interpretation Comments Platelet Morphology Comment (test code = 70662-0) NORMAL [facility] TexasRed Cell Morphology Nykelta0125-77-79 06:43:00* Test Item Value Reference Range Interpretation Comments Red Cell Morphology Comment (test code = 6742-1) NORMAL [facility] TexasMagnesium Prswk8825-15-75 03:31:00* Test Item Value Reference Range Interpretation Comments Magnesium Level (test code = 49599-6) 1.5 1.3-2.1 [facility] TexasFluoroscopic procedure less than one hour mkglzwwo3249-50-96 02:00:00* Test Item Value Reference Range Interpretation Comments Differential Total Cells Counted (test code = Differen tial Total Cells Counted) 100 [facility] neutrophils/100 leukocytes 2019-07-06 02:00:00* Test Item Value Reference Range Interpretation Comments Neutrophils % (Manual) (test code = 20699-3) 82 40-74 [facility] blood lymphocytes/100 leukocytes 2019-07-06 02:00:00* Test Item Value Reference Range Interpretation Comments Lymphocytes % (Manual) (test code = 737-7) 15 19-48 [facility] blood monocytes/100 leukocytes 2019-07-06 02:00:00* Test Item Value Reference Range Interpretation Comments Monocytes % (Manual) (test code = 744-3) 3 3.4-9.0 [facility] TexasBlood platelets count by estimate (number/volume)2019-07-06 02:00:00* Test Item Value Reference Range Interpretation Comments Platelet Estimate (test code = 66315-7) ADEQUATE [facility] TexasPlatelet kdkveqksfd8414-48-72 02:00:00* Test Item Value Reference Range Interpretation Comments Platelet Morphology Comment (test code = 66830-7) NORMAL [facility] TexasRB rgbpxnafff3360-00-03 02:00:00* Test Item Value Reference Range Interpretation Comments Red Cell Morphology Comment (test code = 6742-1) NORMAL [facility] TexasFluoroscopic procedure less than one hour rohztkpe5361-62-61 02:00:00* Test Item Value Reference Range Interpretation Comments Differential Total Cells Counted (test code = Differen tial Total Cells Counted) 100 [facility] blood neutrophils/100 leukocytes 2019-07-06 02:00:00* Test Item Value Reference Range Interpretation Comments Neutrophils % (Manual) (test code = 95428-8) 82 40-74 [facility] TexasManual blood lymphocytes/100 leukocytes 2019-07-06 02:00:00* Test Item Value Reference Range Interpretation Comments Lymphocytes % (Manual) (test code = 737-7) 15 19-48 [facility] blood monocytes/100 leukocytes 2019-07-06 02:00:00* Test Item Value Reference Range Interpretation Comments Monocytes % (Manual) (test code = 744-3) 3 3.4-9.0 [facility] TexasBlood platelets count by estimate (number/volume)2019-07-06 02:00:00* Test Item Value Reference Range Interpretation Comments Platelet Estimate (test code = 32104-1) ADEQUATE [facility] TexasPlatelet lnrmbimgnc9706-47-04 02:00:00* Test Item Value Reference Range Interpretation Comments Platelet Morphology Comment (test code = 91253-4) NORMAL [facility] TexasRB mtwjjgpphy1861-95-68 02:00:00* Test Item Value Reference Range Interpretation Comments Red Cell Morphology Comment (test code = 6742-1) NORMAL [facility] TexasCHEST SINGLE (PORTABLE)2019-07-05 09:33:00 [facility] [address] [place] [address] Patient Name: DEO ESCUDERO MR #: [id number] : 1955 Age/Sex: 64/F Req #: [id number] Adm Physician: CELENA CHRISTENSEN MD Ordered by: VIRAL SCHULZ MD Report #: [id number] Location: ICU Room/Bed: ICU [facility] Procedure: [id number] DX/ELIZABETH ST SINGLE (PORTABLE) Exam Date: 07/05/19 Exam Time: 0915 REPORT STATUS: Signed EXAMI NATION: CHEST SINGLE [...] (Manual) (test code = 714-6) 1 0-7 [facility] TexasEosinophils % (Manual)2019-07-05 08:49:00 * Test Item Value Reference Range Interpretation Comments Eosinophils % (Manual) (test code = 714-6) 1 0-7 [facility] TexasEosinophils % (Manual)2019-07-05 08:49:00 * Test Item Value Reference Range Interpretation Comments Eosinophils % (Manual) (test code = 714-6) 1 0-7 [facility] TexasEosinophils % (Manual)2019-07-05 08:49:00 * Test Item Value Reference Range Interpretation Comments Eosinophils % (Manual) (test code = 714-6) 1 0-7 [facility] TexasEosinophils % (Manual)2019-07-05 08:49:00 * Test Item Value Reference Range Interpretation Comments Eosinophils % (Manual) (test code = 714-6) 1 0-7 [facility] TexasManual blood eosinophil count as percentage of total jusdsuusxk4600-37-26 02:20:00* Test Item Value Reference Range Interpretation Comments Eosinophils % (Manual) (test code = 714-6) 1 0-7 [facility] blood eosinophil count as percentage of total opkyigkkhq0894-96-76 02:20:00* Test Item Value Reference Range Interpretation Comments Eosinophils % (Manual) (test code = 714-6) 1 0-7 [facility] CenterBasophils % (Manual)2019-07-04 08:48:00* Test Item Value Reference Range Interpretation Comments Basophils % (Manual) (test code = 03887-6) 1 0-1.5 [facility] TexasBasophils % (Manual)2019-07-04 08:48:00* Test Item Value Reference Range Interpretation Comments Basophils % (Manual) (test code = 34229-4) 1 0-1.5 [facility] TexasBasophils % (Manual)2019-07-04 08:48:00* Test Item Value Reference Range Interpretation Comments Basophils % (Manual) (test code = 82018-8) 1 0-1.5 [facility] TexasBasophils % (Manual)2019-07-04 08:48:00* Test Item Value Reference Range Interpretation Comments Basophils % (Manual) (test code = 40245-2) 1 0-1.5 [facility] TexasBasophils % (Manual)2019-07-04 08:48:00* Test Item Value Reference Range Interpretation Comments Basophils % (Manual) (test code = 42759-1) 1 0-1.5 [facility] TexasManual basophil kvbskevkxf8746-03-50 02:15:00* Test Item Value Reference Range Interpretation Comments Basophils % (Manual) (test code = 93526-3) 1 0-1.5 [facility] TexasManual basophil zmxpsgtczb7708-42-13 02:15:00* Test Item Value Reference Range Interpretation Comments Basophils % (Manual) (test code = 47369-4) 1 0-1.5 [facility] JXTZB9979-96-12 20:54:00 [facility] [address] [address] Patient Name: DEO ESCUDERO MR #: [id number] : 1955 Age/Sex: 64/F Req #: [id number] Adm Physician: CELENA CHRISTENSEN MD Ordered by: NADIA SOW MD Report #: [id number] Location: ICU Room/Bed: ICU [facility] Procedure: [id number] CT /CTA BRAIN Exam Date: 07/03/19 Exam [...] the arterial circulation of the neck and [place] were reformatted from th e [...] as that within the bilateral deep frontal white matter, bilateral basal ganglia and bilateral thalami. Scattered and confluent hypodensities throughout the supratentorial white matter are nonspecific but are most compatible with chronic microvascular ischemic [...] bilateral superior cerebellar arteries and left P1 SAP ABAP PROGRAMMER segment. Posterior cerebral arteries: Patent bilaterally. The right P1 segment is not visualized and may be absent or hypoplastic beyond resolution of CTA and there is a prom inent right posterior communicator artery which supplies the right SAP ABAP PROGRAMMER (- type SAP ABAP PROGRAMMER origin). Anatomical variants: Acom: Patent. Pcoms: Patent bila terally. Right -type SAP ABAP PROGRAMMER origin. Vertebral arteries: Codominant. Add itional findings: [...] basilar ar ciaran. 5. Anatomical variant right SAP ABAP PROGRAMMER origin. Signed by: Dr. Ronald Wharton M.D. on 07/03/2019 9:42 PM Dictated By: RONALD WHARTON MD Elec tronically Signed By: RONALD WHARTON MD on 07/03/192141 Transcribed By: MONO SALAZAR on 07/03/192141 COPY TO: NADIA SOW MD CTA NECK 2019-07-03 20:54:00 [place] [address] Patient Name: DEO ESCUDERO MR #: [id number] : 1955 Age/Sex: 64/F Req #: [id number] Adm Physician: CELENA CHRISTENSEN MD Ordered by: NADIA SOW MD Report #: [id number] Location: ICU Room/Bed: ICU [facility] Procedure: [id number] CT /CTA NECK Exam Date: 07/03/19 Exam [...] a rterial circulation of the neck and [place] were reformatted from the axial [...] as that within the bilateral deep frontal white matter, bilateral basal ganglia and bilateral thalami. Scattered and confluent hypodensities throughout the supratentorial white matter are nonspecific but are most compatible with chronic microvascular ischemic changes. No gross ac redding hemorrhage or gross new acute cortical infarct. [...] bilaterally. Evaluation limited by artifacts. No gross vikas nosis. Internal carotid arteries: Evaluation limited by [...] bilateral superior cerebellar arteries and left P1 SAP ABAP PROGRAMMER segment. Posterior cerebral arteries: Patent bilaterally. The right P1 segment is not visualized and may be absent or hypoplastic beyond resolution of CTA and there is a promi nent right posterior communicator artery which supplies the right SAP ABAP PROGRAMMER (-t ype SAP ABAP PROGRAMMER origin). Anatomical variants: Acom: Patent. Pcoms: Patent bilat erally. Right -type SAP ABAP PROGRAMMER origin. Vertebral arteries: Codominant. Jseus tional findings: Lens replacements for previous cataract [...] acute intracranial abnormalities. 4. Moderate chronic microvascular ischemic changes with multiple chronic lacunar infarcts as described. Neck CTA: 1. Exam limited by motion artifact. 2. Patent carotid arteries without gross stenosis. 3. Patent bilateral vertebral arteries with [...] basilar art orlin. 5. Anatomical variant right SAP ABAP PROGRAMMER origin. Signed by: Dr. Ronald Wharton M.D. on 07/03/2019 9:42 PM Dictated By: RONALD WHARTON MD Elect ronically Signed By: RONALD WHARTON MD on 07/03/192141 Transcribed By: JARRED Isbell on 07/03/192141 COPY TO: NADIA SOW MD MRI BRAIN WO 2019-07-03 16:21:00 [place] [address] [place] [address] Patient Name: DEO ESCUDERO MR #: [id number] : 1955 Age/Sex: 64/F Req #: [id number] Adm Physician: CELENA CHRISTENSEN MD Ordered by: Abdirashid Alford [employer] Report #: [id number] Location: MED/SURG3 Room/Bed: 284-1 Procedure: [id number] MRI /MRI BRAIN WO Exam Date: Exam Time: REPORT STATUS: Signed Examination: Brain MRI w ithout Contrast History: Altered mental status. Confusion. Comparison [facility]: Brain MRI performed January 02, 2019 Technique: [...] Lexi urbano discussed acute finding with Nurse Rossy on 07/03/2019 at 162 hours. Signed by: Dr. Lexi Leung M.D. on 07/03/2019 4:29 PM Dictated By: LEXI AHMADI MD 28 Transcribed By: SCAR on 07/03/19 1629 COPY TO: ABDIRASHID ALFORD NP Quufcag1085-27-69 15:56:00* Test Item Value Reference Range Interpretation Comments Ammonia (test code = 53175-4) 41 -123 [facility]2020-01-10 15:56:00* Test Item Value Reference Range Interpretation Comments Ammonia (test code = 60166-6) 41 -123 [facility]2020-01-10 15:56:00* Test Item Value Reference Range Interpretation Comments Ammonia (test code = 52177-1) 41 -123 [facility]2020-01-10 15:56:00* Test Item Value Reference Range Interpretation Comments Ammonia (test code = 88654-6) 41 -123 [facility]2020-01-10 15:56:00* Test Item Value Reference Range Interpretation Comments Ammonia (test code = 02219-2) 41 -123 [facility] Hpk-sSmn9714-66-10 14:20:00* Test Item Value Reference Range Interpretation Comments Ammonia (test code = 99113-3) 41 31-123 [facility] Vip-qJuv3034-08-10 14:20:00* Test Item Value Reference Range Interpretation Comments Ammonia (test code = 87901-6) 41 31-123 [facility] B Surface Antibody, Quant 2019-07-03 10:33:00* Test Item Value Reference Range Interpretation Comments Hepatitis B Surface Antibody, Quant (test code = 5194-6) <3.1 Status of Immunity Anti-HBs Level Inconsistent with Immunity 0.0 - 9 .9Consistent with Immunity >9.9Performed at: [facility] [id number] Director: Kevin Lino MD, Phone: [phone] B Core Total Clmowiva8184-35-34 10:33:00* Test Item Value Reference Range Interpretation Comments Hepatitis B Core Total Antibody (test code = 75711-6) Negative [facility] B Core IgM Giwvqahq1301-05-61 10:33:00* Test Item Value Reference Range Interpretation Comments Hepatitis B Core IgM Antibody (test code = 43744-7) Negative Performed at: [facility] [id number] Director: Kevin Lino MD, Phone: [phone] C Wkpqmlbw1024-24-66 10:33:00* Test Item Value Reference Range Interpretation Comments Hepatitis C Antibody (test code = 56243-3) <0.1 Reference Range:0.0 - 0.9 s/co ratio Negative: < 0.8 Indeterminate: 0.8 - 0.9 Positive: > 0.9 The [facility] recommends that a positive HCV antibody result be followed up with a HCV Nucleic Acid Amplification test (179947).Performed at: [facility] [address] [id number] Director: Kevin Lino MD, Phone: [phone] [facility] Jdnonefw7161-87-35 10:33:00* Test Item Value Reference Range Interpretation Comments Hepatitis C Antibody (test code = 47003-2) <0.1 Reference Range:0.0 - 0.9 s/co ratio Negative: < 0.8 Indeterminate: 0.8 - 0.9 Positive: > 0.9 The CDC recommends that a positive HCV antibody result be followed up with a HCV Nucleic Acid Amplification test (029395).Performed at: [address] [id number] Director: Kevin Lino MD, Phone: [phone] [facility] Mvfdamfz4427-01-42 10:33:00* Test Item Value Reference Range Interpretation Comments Hepatitis C Antibody (test code = 81369-9) <0.1 Reference Range:0.0 - 0.9 s/co ratio Negative: < 0.8 Indeterminate: 0.8 - 0.9 Positive: > 0.9 The CDC recommends that a positive HCV antibody result be followed up with a HCV Nucleic Acid Amplification test (325159).Performed at: [address] [id number] Director: Kevin Lino MD, Phone: [phone] [facility] Oixtjmgc3939-99-65 10:33:00* Test Item Value Reference Range Interpretation Comments Hepatitis C Antibody (test code = 95273-1) <0.1 Reference Range:0.0 - 0.9 s/co ratio Negative: < 0.8 Indeterminate: 0.8 - 0.9 Positive: > 0.9 The CDC recommends that a positive HCV antibody result be followed up with a HCV Nucleic Acid Amplification test (068532).Performed at: [address] [id number] Director: Kevin Lino MD, Phone: [phone] [facility] Nofcfkxb5956-65-56 10:33:00* Test Item Value Reference Range Interpretation Comments Hepatitis C Antibody (test code = 34924-4) <0.1 Reference Range:0.0 - 0.9 s/co ratio Negative: < 0.8 Indeterminate: 0.8 - 0.9 Positive: > 0.9 The CDC recommends that a positive HCV antibody result be followed up with a HCV Nucleic Acid Amplification test (078843).Performed at: - [facility] [id number] Director: Kevin Lino MD, Phone: [phone] [facility] Texas[facility] CHEST TJ9166-15-88 09:37:00 [facility] [address] [address] Patient Name: DEO ESCUDERO MR #: [id number] : 1955 Age/Sex: 64/F Req #: [id number] Adm Physician: CELENA CHRISTENSEN MD Ordered by: Abdirashid Alford [employer] Report #: [id number] Location: MED/SURG3 Room[facility]Bed: [facility] Procedure: [id number] CT/ CT CHEST WO Exam Date: Exam [...] CT of 06/29/2019. BONES: No acute osseous injury. SOFT TISSUES: Mild diffuse subcutaneous soft tissue edema. IMPRESSION: Cardiomegaly, pulmonary edema and trace bilateral pleural effusions. No focal pneumonia. Mediastinal lymphadenopathy is likely reactive. Apparent mild fat stranding associated with the partially visualized pancreas did not appear to be present on prior abdomen CT of 06/29/2019. Recommend correlation with pancreatic enzymes. Atherosclerotic calcifications, including of the coron perla arteries. Signed by: Johnathan Headley MD on 07/03/2019 9:52 AM Dict ated By: JOHNATHAN HEADLEY MD 1 Transcribed By: SCAR on 07/03/19951 COPY TO: ABDIRASHID ALFORD NP Pcymhl7955-41-84 11:48:00* Test Item Value Reference Range Interpretation Comments Folate (test code = 2284-8) <2.0 >3.0 L A serum folate concentration of less than 3.1 ng/mL isconsidered to represent cl inical deficiency.Performed at: [address] [address] [id number] Director: Kevin Lino MD, Phone: [phone] Seton [facility] Center at The University of TexasFolate2020-01-09 11:48:00* Test Item Value Reference Range Interpretation Comments Folate (test code = 2284-8) <2.0 >3.0 L A serum folate concentration of less than 3.1 ng/mL isconsidered to represent cl inical deficiency.Performed at: [address] [id number] Director: Kevin Lino MD, Phone: [phone] [facility] The University of TexasFolate2020-01-09 11:48:00* Test Item Value Reference Range Interpretation Comments Folate (test code = 2284-8) <2.0 >3.0 L A serum folate concentration of less than 3.1 ng/mL isconsidered to represent cl inical deficiency.Performed at: [address] [id number] Director: Kevin Lino MD, Phone: [phone] [facility] University of TexasFolate2020-01-09 11:48:00* Test Item Value Reference Range Interpretation Comments Folate (test code = 2284-8) <2.0 >3.0 L A serum folate concentration of less than 3.1 ng/mL isconsidered to represent cl inical deficiency.Performed at: [address] [id number] Director: Kevin Lino MD, Phone: [phone] [facility] University of TexasFolate2020-01-09 11:48:00* Test Item Value Reference Range Interpretation Comments Folate (test code = 2284-8) <2.0 >3.0 L A serum folate concentration of less than 3.1 ng/mL isconsidered to represent cl inical deficiency.Performed at: [address] [id number] Director: Kevin Lino MD, Phone: [phone] Seton Medical Center at The University of TexasPhosphorus Rdicc0013-60-72 07:05:00* Test Item Value Reference Range Interpretation Comments Phosphorus Level (test code = TCR0610) 4.0 2.3-4.7 [facility] antibody dokowbixf8823-10-74 04:15:00* Test Item Value Reference Range Interpretation Comments Hepatitis C Antibody (test code = 12465-1) <0.1 Reference Range:0.0 - 0.9 s/co ratio Negative: < 0.8 Indeterminate: 0.8 - 0.9 Positive: > 0.9 The CDC recommends that a positive HCV antibody result be followed up with a HCV Nucleic Acid Amplification test (592914).Performed at: [address] [id number] Director: Kevin Lino MD, Phone: [phone] [facility] C virus antibody xgdidzqlt5874-94-35 04:15:00* Test Item Value Reference Range Interpretation Comments Hepatitis C Antibody (test code = 66472-4) <0.1 Reference Range:0.0 - 0.9 s/co ratio Negative: < 0.8 Indeterminate: 0.8 - 0.9 Positive: > 0.9 The CDC recommends that a positive HCV antibody result be followed up with a HCV Nucleic Acid Amplification test (682455).Performed at: [address] [id number] Director: Kevin Lino MD, Phone: [phone] [facility] of TexasMD SEDATE INITIAL > 5 KOJ1367-67-16 12:41:00 [facility] [address] [place] [address] Patient Name: DEO ESCUDERO MR #: [id number] : 1955 Age/Sex: 64/F Req #: [id number] Adm Physician: CELENA CHRISTENSEN MD Ordered by: MICHAEL BEACH MD Report #: [id number] Location: ICU Room/Bed: ICU [facility] Procedure: [id number] C T/ SEDATE INITIAL > 5 YRS Exam Date: 07/01/19 Exam Time: 1154 REPORT STATUS: Signed Tunneled dialysis catheter insertion, 07/01/2019. History: Renal failure. Modality: Sonography and fluoroscopy. Sedation: Versed 1.0 mg and fentanyl 50 mcg was given intravenously for conscious sedation. Vital signs were monitored throughout the procedure by a nurse, and remained stable. Physician intra-service time was 15 in its. District Leader: Baylee. [employer] Supervisor: None. Approach: Right internal jugular vein Estimated [...] needle into the right atrium. A 4 Brazilian micropuncture sheath was placed. A subcutaneous tunnel was created in the right anterior chest wall by blunt dissection. A 1 cm 14.5 Brazilian Palindrome catheter was brought through the tunnel. [...] overlying the superior right atrium. Impression: Successful, uncomplicated placement of a right internal jugular tunneled dialysis catheter using sonog raphic and fluoroscopic guidance and conscious sedation. Signed by: Michael Beach MD on 07/01/2019 12:42 PM Dictated By: MICHAEL Casillas 22 Transcribed B y: SCAR on 07/08/191422 COPY TO: MICHAEL BEACH MD GUIDANCE FOR VASCULAR [id number] 12:41:00 [place] [address] Patient Name: DEO ESCUDERO MR #: [id number] : 1955 Age/Sex: 64/F Req #: [id number] Adm Physician: CELENA CHRISTENSEN MD Ordered by: CELENA CHRISTENSEN MD Report #: [id number] Location: ICU Room/Bed: ICU [facility] Procedure: [id number] US/U S GUIDANCE FOR VASCULAR ACCES Exam Date: 07/01/19 Ex am Time: 1136 REPORT STATUS: Signed Tunneled dialysis catheter insertion, 07/01/2019. History: Renal failure. Modality: Sonography and fluoroscopy. Sedation: Versed 1.0 mg and fentanyl 50 mcg was given intravenously for conscious sedation. Vital signs were monitored throughout the procedure by a nurse, and remained stable. Physician intra-service time was 15 in its. District Leader: Baylee. [employer] Supervisor: None. Approach: Right internal jugular vein Estimated [...] needle into the right atrium. A 4 Brazilian micropuncture sheath was placed. A subcutaneous tunnel was created in the right anterior chest wall by blunt dissection. A 1 cm 14.5 Brazilian Palindrome catheter was brought through the tunnel. [...] overlying the superior right atrium. Impression: Successful, uncomplicated placement of a right internal jugular tunneled dialysis catheter using sonog raphic and fluoroscopic guidance and conscious sedation. Signed by: Michael Beach MD on 07/01/2019 12:42 PM Dictated By: MICHAEL Casillas [id number] Transcribed B y: SCAR on 07/08/19 1423 COPY TO: CELENA CHRISTENSEN MD IR CONSULT 2019-07-01 12:41:00 [place] [id number] [place] [address] Patient Name: DEO ESCUDERO MR #: [id number] : 1955 Age/Sex: 64/F Req #: [id number] Adm Physician: CELENA CHRISTENSEN MD Ordered by: CELENA CHRISTENSEN MD Report #: [id number] Location: ICU Room/Bed: ICU [facility] Procedure: [id number] DX/I R CONSULT Exam Date: Exam Time: REPORT STATUS: Signed Tunneled dialysis catheter i nsertion, 07/01/2019. History: Renal failure. Modality: Sonogr aphy and fluoroscopy. Sedation: Versed 1.0 mg and fentanyl 50 mcg was given intravenously for conscious sedation. Vital signs were monitored throughout the procedure by a nurse, and remained stable. Physician intra-service time was 15 in its. Primary O perator: Baylee. [employer]er[employer] Supervisor: None. Approach: Right internal jugular vein Estimated [...] needle into the right atrium. A 4 Brazilian micropuncture sheath was placed. A subcutaneous tunnel was created in the right anterior chest wall by blunt dissection. A 1 cm 14.5 Brazilian Palindrome catheter was brought through the tunnel. [...] overlying the superior right atrium. Impression: Successful, uncomplicated placement of a right internal jugular tunneled dialysis catheter using sonog raphic and fluoroscopic guidance and conscious sedation. Signed by: Michael Beach MD on 07/01/2019 12:42 PM Dictated By: MICHAEL Casillas 142 Transcribed B y: SCAR on 07/08/191422 COPY TO: CELENA CHRISTENSEN MD TUNNELLED CVC INSERT W/O [id number] 12:41:00 [place] [address] Patient Name: DEO ESCUDERO MR #: [id number] : 1955 Age/Sex: 64/F Req #: [id number] Adm Physician: CELENA CHRISTENSEN MD Ordered by: CELENA CHRISTENSEN MD Report #: [id number] Location: ICU Room/Bed: [place] [address] Procedure: [id number] IR/T UNNELLED CVC INSERT W/O PORT Exam Date: Exam Time: REPORT STATUS: Signed Tunneled dialysis catheter insertion, 07/01/2019. History: Renal failure. Modality: Sonography and fluoroscopy. Sedation: Versed 1.0 mg and fentanyl 50 mcg was given intravenously for consci ous sedation. Vital signs were monitored throughout the procedure by a nurse, and remained stable. Physician intra-service time was 15 in its. District Leader: Baylee. [employer] Supervisor: None. Approach: Right internal jugular vein Estimated [...] needle into the right atrium. A 4 Brazilian micropuncture sheath was placed. A subcutaneous tunnel was created in the right anterior chest wall by blunt dissection. A 1 cm 14.5 Brazilian Palindrome catheter was brought through the tunnel. [...] overlying the superior right atrium. Impression: Successful, uncomplicated placement of a right internal jugular tunneled dialysis catheter using sonog raphic and fluoroscopic guidance and conscious sedation. Signed by: Michael Beach MD on 07/01/2019 12:42 PM Dictated By: MICHAEL Casillas 22 Transcribed B y: SCAR on 07/08/191422 COPY TO: CELENA CHRISTENSEN MD Ferritin 2019-07-01 04:35:00* Test Item Value Reference Range Interpretation Comments Ferritin (test code = 2276-4) 270.21 4.63-204.00 H [facility] TexasVitamin B12 Ppwzm3284-94-19 04:35:00* Test Item Value Reference Range Interpretation Comments Vitamin B12 Level (test code = 60481-6) 548 213-816 [facility] TexasFerritin2020-01-08 04:35:00* Test Item Value Reference Range Interpretation Comments Ferritin (test code = 2276-4) 270.21 4.63-204.00 H [facility] TexasVitamin B12 Pesmj1505-71-24 04:35:00* Test Item Value Reference Range Interpretation Comments Vitamin B12 Level (test code = 08492-3) 548 213-816 [facility] TexasFerritin2020-01-08 04:35:00* Test Item Value Reference Range Interpretation Comments Ferritin (test code = 2276-4) 270.21 4.63-204.00 H [facility] TexasVitamin B12 Fyoii9053-82-34 04:35:00* Test Item Value Reference Range Interpretation Comments Vitamin B12 Level (test code = 90560-5) 548 213-816 [facility] TexasFerritin2020-01-08 04:35:00* Test Item Value Reference Range Interpretation Comments Ferritin (test code = 2276-4) 270.21 4.63-204.00 H [facility] TexasVitamin B12 Bnbny2906-65-01 04:35:00* Test Item Value Reference Range Interpretation Comments Vitamin B12 Level (test code = 71258-0) 548 213-816 [facility] TexasFerritin2020-01-08 04:35:00* Test Item Value Reference Range Interpretation Comments Ferritin (test code = 2276-4) 270.21 4.63-204.00 H [facility] TexasVitamin B12 Vlbdf6986-08-87 04:35:00* Test Item Value Reference Range Interpretation Comments Vitamin B12 Level (test code = 21128-2) 548 213-816 [facility] of TexasIron Xfqva9736-94-14 03:57:00* Test Item Value Reference Range Interpretation Comments Iron Level (test code = 2498-4) 31 50-170 L [facility] of TexasTotal Iron Binding Gcolwoti7885-73-66 03:57:00* Test Item Value Reference Range Interpretation Comments Total Iron Binding Capacity (test code = 2500-7) 139 261-4 78 L [facility] of TexasPercent Iron Tmecsqdnmz5953-89-34 03:57:00* Test Item Value Reference Range Interpretation Comments Percent Iron Saturation (test code = 2502-3) 22 15-50 [facility] TexasTransferrin2020-01-08 03:57:00* Test Item Value Reference Range Interpretation Comments Transferrin (test code = 3034-6) 99 180-382 L [facility] TexasIron Qsmaj5657-64-65 03:57:00* Test Item Value Reference Range Interpretation Comments Iron Level (test code = 2498-4) 31 50-170 L [facility] TexasTotal Iron Binding Jublvtyq7018-15-70 03:57:00* Test Item Value Reference Range Interpretation Comments Total Iron Binding Capacity (test code = 2500-7) 139 261-4 78 L [facility] TexasPercent Iron Zgptqkmbjc1894-34-10 03:57:00* Test Item Value Reference Range Interpretation Comments Percent Iron Saturation (test code = 2502-3) 22 15-50 [facility] TexasTransferrin2020-01-08 03:57:00* Test Item Value Reference Range Interpretation Comments Transferrin (test code = 3034-6) 99 180-382 L [facility]2020-01-08 03:57:00* Test Item Value Reference Range Interpretation Comments Iron Level (test code = 2498-4) 31 50-170 L [facility] Iron Binding Kcespaao7183-88-43 03:57:00* Test Item Value Reference Range Interpretation Comments Total Iron Binding Capacity (test code = 2500-7) 139 261-4 78 L [facility] Iron Nylmuppzot0620-13-17 03:57:00* Test Item Value Reference Range Interpretation Comments Percent Iron Saturation (test code = 2502-3) 22 15-50 [facility] TexasTransferrin2020-01-08 03:57:00* Test Item Value Reference Range Interpretation Comments Transferrin (test code = 3034-6) 99 180-382 L [facility]2020-01-08 03:57:00* Test Item Value Reference Range Interpretation Comments Iron Level (test code = 2498-4) 31 50-170 L [facility] Iron Binding Prhllkvd4209-34-88 03:57:00* Test Item Value Reference Range Interpretation Comments Total Iron Binding Capacity (test code = 2500-7) 139 261-4 78 L [facility] Iron Eecfcghgcm0875-94-72 03:57:00* Test Item Value Reference Range Interpretation Comments Percent Iron Saturation (test code = 2502-3) 22 15-50 [facility] TexasTransferrin2020-01-08 03:57:00* Test Item Value Reference Range Interpretation Comments Transferrin (test code = 3034-6) 99 180-382 L [facility]2020-01-08 03:57:00* Test Item Value Reference Range Interpretation Comments Iron Level (test code = 2498-4) 31 50-170 L [facility] TexasTotal Iron Binding Qofhqyyg6945-46-02 03:57:00* Test Item Value Reference Range Interpretation Comments Total Iron Binding Capacity (test code = 2500-7) 139 261-4 78 L [facility] TexasPercent Iron Eaxbcgfijv2448-50-28 03:57:00* Test Item Value Reference Range Interpretation Comments Percent Iron Saturation (test code = 2502-3) 22 15-50 [facility] TexasTransferrin2020-01-08 03:57:00* Test Item Value Reference Range Interpretation Comments Transferrin (test code = 3034-6) 99 180-382 L [facility] TexasPercent Reticulocyte Qcgyy6898-58-44 03:29:00* Test Item Value Reference Range Interpretation Comments Percent Reticulocyte Count (test code = 80657-6) 2.3 0.8-2 .2 H [facility] TexasPercent Reticulocyte Lvzdh3431-71-66 03:29:00* Test Item Value Reference Range Interpretation Comments Percent Reticulocyte Count (test code = 64093-1) 2.3 0.8-2 .2 H [facility] TexasPercent Reticulocyte Mujfd0711-00-26 03:29:00* Test Item Value Reference Range Interpretation Comments Percent Reticulocyte Count (test code = 02972-6) 2.3 0.8-2 .2 H [facility] TexasPercent Reticulocyte Qifzp0667-24-68 03:29:00* Test Item Value Reference Range Interpretation Comments Percent Reticulocyte Count (test code = 02216-7) 2.3 0.8-2 .2 H [facility] TexasPercent Reticulocyte Blmhj4358-64-94 03:29:00* Test Item Value Reference Range Interpretation Comments Percent Reticulocyte Count (test code = 89061-7) 2.3 0.8-2 .2 H [facility] of TexasAutomated reticulocyte count as percentage of total tdlbcjnqupfg3790-67-65 02:00:00* Test Item Value Reference Range Interpretation Comments Percent Reticulocyte Count (test code = 48100-7) 2.3 0.8-2 .2 [facility] iron measurement (mass/volume)2019-07-01 02:00:00* Test Item Value Reference Range Interpretation Comments Iron Level (test code = 2498-4) 31 50-170 [facility] plasma iron binding capacity measurement (mass/volume)2019-07-01 02:00:00* Test Item Value Reference Range Interpretation Comments Total Iron Binding Capacity (test code = 2500-7) 139 261-4 78 [facility] plasma iron saturation measurement (mass fraction)2019-07-01 02:00:00* Test Item Value Reference Range Interpretation Comments Percent Iron Saturation (test code = 2502-3) 22 15-50 [facility] plasma transferrin measurement (mass/volume)2019-07-01 02:00:00* Test Item Value Reference Range Interpretation Comments Transferrin (test code = 3034-6) 99 180-382 [facility] plasma ferritin measurement (mass/volume)2019-07-01 02:00:00* Test Item Value Reference Range Interpretation Comments Ferritin (test code = 2276-4) 270.21 4.63-204.00 [facility] TexasBlood cobalamin (vitamin B12) measurement (mass/volume)2019-07-01 02:00:00* Test Item Value Reference Range Interpretation Comments Vitamin B12 Level (test code = 97677-6) 548 213-816 [facility] plasma folate measurement (mass/volume)2019-07-01 02:00:00* Test Item Value Reference Range Interpretation Comments Folate (test code = 2284-8) <2.0 >3.0 A serum folate concentration of less than 3.1 ng/mL isconsidered to represent cl inical deficiency.Performed at: - [facility] [id number] Director: Kevin Lino MD, Phone: [phone] Seton Medical Center at The University of TexasAutomated reticulocyte count as percentage of total zmyfklsfnfnj8386-42-82 02:00:00* Test Item Value Reference Range Interpretation Comments Percent Reticulocyte Count (test code = 70569-3) 2.3 0.8-2 .2 [facility] iron measurement (mass/volume)2019-07-01 02:00:00* Test Item Value Reference Range Interpretation Comments Iron Level (test code = 2498-4) 31 50-170 [facility] plasma iron binding capacity measurement (mass/volume)2019-07-01 02:00:00* Test Item Value Reference Range Interpretation Comments Total Iron Binding Capacity (test code = 2500-7) 139 261-4 78 [facility] plasma iron saturation measurement (mass fraction)2019-07-01 02:00:00* Test Item Value Reference Range Interpretation Comments Percent Iron Saturation (test code = 2502-3) 22 15-50 [facility] plasma transferrin measurement (mass/volume)2019-07-01 02:00:00* Test Item Value Reference Range Interpretation Comments Transferrin (test code = 3034-6) 99 180-382 [facility] plasma ferritin measurement (mass/volume)2019-07-01 02:00:00* Test Item Value Reference Range Interpretation Comments Ferritin (test code = 2276-4) 270.21 4.63-204.00 [facility] TexasBlood cobalamin (vitamin B12) measurement (mass/volume)2019-07-01 02:00:00* Test Item Value Reference Range Interpretation Comments Vitamin B12 Level (test code = 50870-5) 548 213-816 [facility] plasma folate measurement (mass/volume)2019-07-01 02:00:00* Test Item Value Reference Range Interpretation Comments Folate (test code = 2284-8) <2.0 >3.0 A serum folate concentration of less than 3.1 ng/mL isconsidered to represent cl inical deficiency.Performed at: - [facility] [id number] Director: Kevin Lino MD, Phone: [phone] Seton Medical Center at The University of TexasTriglycerides Yyyqu1127-59-92 04:53:00* Test Item Value Reference Range Interpretation Comments Triglycerides Level (test code = 2571-8) 160 0-149 H [facility] TexasCholesterol Zukua5809-59-13 04:53:00* Test Item Value Reference Range Interpretation Comments Cholesterol Level (test code = 2093-3) 212 0-199 H Less than 200 mg/dL Low Rbia942 - 239 mg/dL Borderline Ieta367 m g/dl and greater High Risk [facility] TexasLDL Dlppzdfuokm0925-42-21 04:53:00* Test Item Value Reference Range Interpretation Comments LDL Cholesterol (test code = 2089-1) 150 60-130 H [facility] Snhfexaluqx5425-96-66 04:53:00* Test Item Value Reference Range Interpretation Comments HDL Cholesterol (test code = 2085-9) 30 40-60 L [facility] TexasCholesterol/HDL Rgdsh0131-94-02 04:53:00 * Test Item Value Reference Range Interpretation Comments Cholesterol/HDL Ratio (test code = 9830-1) 7.1 3.0-3.6 H [facility] TexasTriglycerides Ugoes1236-50-75 04:53:00* Test Item Value Reference Range Interpretation Comments Triglycerides Level (test code = 2571-8) 160 0-149 H [facility] TexasCholesterol Htuek1193-39-78 04:53:00* Test Item Value Reference Range Interpretation Comments Cholesterol Level (test code = 2093-3) 212 0-199 H Less than 200 mg/dL Low Tokr262 - 239 mg/dL Borderline Wjox791 m g/dl and greater High Risk [facility] TexasLDL Jciruzszfyr4199-72-70 04:53:00* Test Item Value Reference Range Interpretation Comments LDL Cholesterol (test code = 2089-1) 150 60-130 H [facility] Pmlcfopbrdm1450-11-21 04:53:00* Test Item Value Reference Range Interpretation Comments HDL Cholesterol (test code = 2085-9) 30 40-60 L [facility] TexasCholesterol/HDL Aigcn1721-84-41 04:53:00 * Test Item Value Reference Range Interpretation Comments Cholesterol/HDL Ratio (test code = 9830-1) 7.1 3.0-3.6 H [facility] TexasTriglycerides Vfcen7069-55-92 04:53:00* Test Item Value Reference Range Interpretation Comments Triglycerides Level (test code = 2571-8) 160 0-149 H [facility] TexasCholesterol Xforo5347-46-22 04:53:00* Test Item Value Reference Range Interpretation Comments Cholesterol Level (test code = 2093-3) 212 0-199 H Less than 200 mg/dL Low Uhkx570 - 239 mg/dL Borderline Vlbn226 m g/dl and greater High Risk [facility] TexasLDL Rbrwtebbdhm4140-21-50 04:53:00* Test Item Value Reference Range Interpretation Comments LDL Cholesterol (test code = 2089-1) 150 60-130 H [facility] Glkqiefiqlr2055-18-40 04:53:00* Test Item Value Reference Range Interpretation Comments HDL Cholesterol (test code = 2085-9) 30 40-60 L [facility] TexasCholesterol/HDL Liwxk6466-01-64 04:53:00 * Test Item Value Reference Range Interpretation Comments Cholesterol/HDL Ratio (test code = 9830-1) 7.1 3.0-3.6 H [facility] TexasTriglycerides Clkle5686-55-00 04:53:00* Test Item Value Reference Range Interpretation Comments Triglycerides Level (test code = 2571-8) 160 0-149 H [facility] TexasCholesterol Ciikh1162-93-33 04:53:00* Test Item Value Reference Range Interpretation Comments Cholesterol Level (test code = 2093-3) 212 0-199 H Less than 200 mg/dL Low Uauw596 - 239 mg/dL Borderline Sgyy053 m g/dl and greater High Risk [facility] TexasLDL Gracpltwmag5527-56-28 04:53:00* Test Item Value Reference Range Interpretation Comments LDL Cholesterol (test code = 2089-1) 150 60-130 H [facility] Gbftclxwwbg8520-51-45 04:53:00* Test Item Value Reference Range Interpretation Comments HDL Cholesterol (test code = 2085-9) 30 40-60 L [facility] TexasCholesterol/HDL Jbujv1954-58-26 04:53:00 * Test Item Value Reference Range Interpretation Comments Cholesterol/HDL Ratio (test code = 9830-1) 7.1 3.0-3.6 H [facility] VXAHAKWE3243-18-86 19:48:00 [facility] [address] [place] [address] Patient Name: DEO ESCUDERO MR #: [id number] : 1955 Age/Sex: 64/F Req #: [id number] Adm Physician: Ordered by: Abdirashid Alford NP Report #: [id number] Location: ER Room/Bed: Procedure: [id number] US/U S ABDOMEN COMPLETE Exam Date: 06/29/19 [...] COPY TO: ABDIRASHID ALFORD NP CT ABDOMEN SL5396-52-00 19:06:00 [place] [address] Patient Name: DEO ESCUDERO MR #: [id number] : 1955 Age/Sex: 64/F Req #: [id number] Adm Physician: Ordered by: Abdirashid Alford NP Report #: [id number] Location: ER Room/Bed: Procedure: [id number] CT/C T ABDOMEN WO Exam Date: 06/29/19 [...] on 06/29/2019 7:12 PM Dictated By: JESÚS Chi carly Signed By: JESÚS ESQUIVEL MD on 06/29/191911 Transcribed By: SCAR on 0 06/29/191911 COPY TO: ABDIRASHID ALFORD NP Thyroid Stimulating Hormone (TSH)2019-06-29 17:37:00* Test Item Value Reference Range Interpretation Comments Thyroid Stimulating Hormone (TSH) (test code = 47943-3) 3.979 0.350-4.940 [facility] TexasThyroid Stimulating Hormone (TSH) 2019-06-29 17:37:00* Test Item Value Reference Range Interpretation Comments Thyroid Stimulating Hormone (TSH) (test code = 45651-5) 3.979 0.350-4.940 [facility] TexasThyroid Stimulating Hormone (TSH) 2019-06-29 17:37:00* Test Item Value Reference Range Interpretation Comments Thyroid Stimulating Hormone (TSH) (test code = 59010-9) 3.979 0.350-4.940 [facility] TexasThyroid Stimulating Hormone (TSH) 2019-06-29 17:37:00* Test Item Value Reference Range Interpretation Comments Thyroid Stimulating Hormone (TSH) (test code = 74927-4) 3.979 0.350-4.940 [facility] TexasThyroid Stimulating Hormone (TSH) 2019-06-29 17:37:00* Test Item Value Reference Range Interpretation Comments Thyroid Stimulating Hormone (TSH) (test code = 89456-8) 3.979 0.350-4.940 [facility] TexasLipase2020-01-06 17:16:00* Test Item Value Reference Range Interpretation Comments Lipase (test code = 3040-3) 56 8-78 [facility] TexasLipase2020-01-06 17:16:00* Test Item Value Reference Range Interpretation Comments Lipase (test code = 3040-3) 56 878 [facility] TexasLipase2020-01-06 17:16:00* Test Item Value Reference Range Interpretation Comments Lipase (test code = 3040-3) 56 8-78 [facility] TexasLipase2020-01-06 17:16:00* Test Item Value Reference Range Interpretation Comments Lipase (test code = 3040-3) 56 8-78 [facility] TexasLipase2020-01-06 17:16:00* Test Item Value Reference Range Interpretation Comments Lipase (test code = 3040-3) 56 8-78 [facility] TexasHemoglobin A1c Odipgqc9297-01-11 17:14:00 * Test Item Value Reference Range Interpretation Comments Hemoglobin A1c Percent (test code = Hemoglobin A1c Percent) 5.2 4.0-7.0 [facility] TexasHemoglobin A1c Kxaopwh9518-55-59 17:14:00 * Test Item Value Reference Range Interpretation Comments Hemoglobin A1c Percent (test code = Hemoglobin A1c Percent) 5.2 4.0-7.0 [facility] TexasHemoglobin A1c Nmfojzv6700-61-12 17:14:00 * Test Item Value Reference Range Interpretation Comments Hemoglobin A1c Percent (test code = Hemoglobin A1c Percent) 5.2 4.0-7.0 [facility] TexasHemoglobin A1c Rbarphr9967-22-18 17:14:00 * Test Item Value Reference Range Interpretation Comments Hemoglobin A1c Percent (test code = Hemoglobin A1c Percent) 5.2 4.0-7.0 [facility] TexasHemoglobin A1c Yeenpmw6745-72-89 17:14:00 * Test Item Value Reference Range Interpretation Comments Hemoglobin A1c Percent (test code = Hemoglobin A1c Percent) 5.2 4.0-7.0 [facility] TexasB-Type Natriuretic Fdmvupn6490-09-80 15:38:00* Test Item Value Reference Range Interpretation Comments B-Type Natriuretic Peptide (test code = 72137-4) 180.0 0-100 H [facility] TexasB-Type Natriuretic Tadkcut9034-80-72 15:38:00* Test Item Value Reference Range Interpretation Comments B-Type Natriuretic Peptide (test code = 92663-9) 180.0 0-100 H [facility] TexasB-Type Natriuretic Pafanbz4252-85-67 15:38:00* Test Item Value Reference Range Interpretation Comments B-Type Natriuretic Peptide (test code = 66342-7) 180.0 0-100 H [facility] TexasB-Type Natriuretic Omwhsks4280-67-31 15:38:00* Test Item Value Reference Range Interpretation Comments B-Type Natriuretic Peptide (test code = 43766-9) 180.0 0-100 [facility] TexasB-Type Natriuretic Tvcqysa7813-06-17 15:38:00* Test Item Value Reference Range Interpretation Comments B-Type Natriuretic Peptide (test code = 21594-1) 180.0 0-100 H [facility] TexasCreatine Kinase FJ5661-19-81 14:56:00* Test Item Value Reference Range Interpretation Comments Creatine Kinase MB (test code = 81360-8) 1.20 0-5.0 [facility] V8949-73-24 14:56:00* Test Item Value Reference Range Interpretation Comments Troponin I (test code = BEP3274) < 0.001 0-0.300 [facility] TexasCreatine Kinase IL3394-80-07 14:56:00* Test Item Value Reference Range Interpretation Comments Creatine Kinase MB (test code = 05721-1) 1.20 0-5.0 [place] 02545020-01-06 14:56:00* Test Item Value Reference Range Interpretation Comments Troponin I (test code = YYY3360) < 0.001 0-0.300 [facility] TexasCreatine Kinase ZX3683-16-71 14:56:00* Test Item Value Reference Range Interpretation Comments Creatine Kinase MB (test code = 19880-7) 1.20 0-5.0 [place] 02545020-01-06 14:56:00* Test Item Value Reference Range Interpretation Comments Troponin I (test code = BMN9857) < 0.001 0-0.300 [facility] TexasCreatine Kinase EH3484-44-15 14:56:00* Test Item Value Reference Range Interpretation Comments Creatine Kinase MB (test code = 63633-7) 1.20 0-5.0 [place] 02545020-01-06 14:56:00* Test Item Value Reference Range Interpretation Comments Troponin I (test code = DBR6798) < 0.001 0-0.300 [facility] TexasCreatine Cumnza5631-60-83 14:53:00* Test Item Value Reference Range Interpretation Comments Creatine Kinase (test code = 2157-6) 99 29-168 [facility] TexasCreatine Hbdyet1751-88-67 14:53:00* Test Item Value Reference Range Interpretation Comments Creatine Kinase (test code = 2157-6) 99 29-168 [facility] TexasCreatine Ietnyg0240-82-64 14:53:00* Test Item Value Reference Range Interpretation Comments Creatine Kinase (test code = 2157-6) 99 29-168 [facility] TexasCreatine Gwgmos2477-78-06 14:53:00* Test Item Value Reference Range Interpretation Comments Creatine Kinase (test code = 2157-6) 99 29-168 [facility] TexasProthrombin Jxla8149-63-22 14:43:00* Test Item Value Reference Range Interpretation Comments Prothrombin Time (test code = 5902-2) 12.9 11.9-14.5 [facility] TexasProthromb Time International Ratio 2019-06-29 14:43:00* Test Item Value Reference Range Interpretation Comments Prothromb Time International Ratio (test code = 6301-6) 0.92 Oral Anticoagulant Therapy INR Values:1. Low Intensity Therapy 1.5 - 2.02 . Moderate Intensity Therapy 2.0 - 3.03. High Intensity Therapy(1) 2.5 - 3. 54. High Intensity Therapy(2) 3.0 - 4.05. Panic Value INR > 5.0 [facility] TexasActivated Partial Thromboplast Time 2019-06-29 14:43:00* Test Item Value Reference Range Interpretation Comments Activated Partial Thromboplast Time (test code = 12640-8) 30.4 23.8-35.5 [facility] TexasActivated Partial Thromboplast Time 2019-06-29 14:43:00* Test Item Value Reference Range Interpretation Comments Activated Partial Thromboplast Time (test code = 46170-1) 30.4 23.8-35.5 [facility] TexasActivated Partial Thromboplast Time 2019-06-29 14:43:00* Test Item Value Reference Range Interpretation Comments Activated Partial Thromboplast Time (test code = 78947-7) 30.4 23.8-35.5 [facility] TexasActivated Partial Thromboplast Time 2019-06-29 14:43:00* Test Item Value Reference Range Interpretation Comments Activated Partial Thromboplast Time (test code = 45999-3) 30.4 23.8-35.5 [facility] TexasActivated Partial Thromboplast Time 2019-06-29 14:43:00* Test Item Value Reference Range Interpretation Comments Activated Partial Thromboplast Time (test code = 82440-7) 30.4 23.8-35.5 [facility]CH[facility])2019-06-29 14:37:00 [facility] [address] [address] Patient Name: DEO ESCUDERO MR #: [id number] : 1955 Age/Sex: 64/F Req #: [id number] Adm Physician: Ordered by: JANIE HILL DO Report #: [id number] Location: ER Room/Bed: Procedure: [id number] DX /CHEST SINGLE (PORTABLE) Exam Date: 06/29/19 [...] 06/29/19 1443 COPY TO: JANIE HILL DO Fluoroscopic procedure less than one hour duration 2019-06-29 13:11:00* Test Item Value Reference Range Interpretation Comments Hemoglobin A1c Percent (test code = Hemoglobin A1c Percent) 5.2 4.0-7.0 [facility] Ftp-uYqr6603-48-06 13:11:00* Test Item Value Reference Range Interpretation Comments B-Type Natriuretic Peptide (test code = 32070-4) 180.0 0-100 [facility] lip[facility] measurement (enzymatic activity/volume)2019-06-29 13:11:00* Test Item Value Reference Range Interpretation Comments Lipase (test code = 3040-3) 56 8-78 [facility] plasma thyrotropin measurement by detection limit <= 0.005 miu/l (units/volume)2019-06-29 13:11:00* Test Item Value Reference Range Interpretation Comments Thyroid Stimulating Hormone (TSH) (test code = 11448-8) 3.979 0.350-4.940 [facility] TexasFluoroscopic procedure less than one hour rfoyyizo4849-92-33 13:11:00* Test Item Value Reference Range Interpretation Comments Hemoglobin A1c Percent (test code = Hemoglobin A1c Percent) 5.2 4.0-7.0 [facility] plasma lipase measurement (enzymatic activity/volume)2019-06-29 13:11:00* Test Item Value Reference Range Interpretation Comments Lipase (test code = 3040-3) 56 8-78 [facility]er[facility] or plasma thyrotropin measurement by detection limit <= 0.005 miu/l (units/volume)2019-06-29 13:11:00* Test Item Value Reference Range Interpretation Comments Thyroid Stimulating Hormone (TSH) (test code = 00722-2) 3.979 0.350-4.940 [facility] TexasKNEE LEFT THREE OZNNY5360-73-38 14:35:00 [place] [address] Patient Name: DEO ESCUDERO MR #: [id number] : 1955 Age/Sex: 64/F Req #: [id number] Adm Physician: Ordered by: NATALIA GREEN NP Report #: [id number] Location: ER Room/Bed: Procedure: [id number] DX/ KNEE LEFT THREE VIEWS Exam Date: [...] 2:36 PM Dictated By: JOHNATHAN HEADLEY MD 35 Transcribed By: SCAR on 06/22/19 143 COPY TO: NATALIA GREEN NP Blood Cagahcf8879-29-66 11:40:00* Test Item Value Reference Range Interpretation Comments Blood Culture (test code = 03151407) NO GROWTH AFTER 5 DAYS, FINAL REPORT [facility] Plasma Stvqyr0557-55-86 05:20:00* Test Item Value Reference Range Interpretation Comments Rapid Plasma Reagin (test code = 16338-3) Non Reactive Non Reactive Performed at: [facility] [id number] Director: Kevin Lino MD, Phone: [phone] Seton [facility] University of TexasRasouthwell [facility] Plasma Ekxgfk5796-29-54 05:20:00* Test Item Value Reference Range Interpretation Comments Rapid Plasma Reagin (test code = 77062-7) Non Reactive Non Reactive Performed at: [address] [id number] Director: Kevin Lino MD, Phone: [phone] [facility] of TexasRasouthwell [facility] Plasma Qubuww7022-91-57 05:20:00* Test Item Value Reference Range Interpretation Comments Rapid Plasma Reagin (test code = 55146-7) Non Reactive Non Reactive Performed at: [address] [id number] Director: Kevin Lino MD, Phone: [phone] Scott and [facility] Plasma Qnhsom8119-89-11 05:20:00* Test Item Value Reference Range Interpretation Comments Rapid Plasma Reagin (test code = 80519-3) Non Reactive Non Reactive Performed at: [address] [id number] Director: Kevin Lino MD, Phone: [phone] Scott and White [facility] Plasma Nwpixy5021-30-20 05:20:00* Test Item Value Reference Range Interpretation Comments Rapid Plasma Reagin (test code = 10567-3) Non Reactive Non Reactive Performed at: [address] [id number] Director: Kevin Lino MD, Phone: [phone] Scott and White [facility] Plasma Muizrw4176-53-22 05:20:00* Test Item Value Reference Range Interpretation Comments Rapid Plasma Reagin (test code = 33536-9) Non Reactive Non Reactive Performed at: [address] [id number] Director: Kevin Lino MD, Phone: [phone] Seton [facility] of TexasCortisol PM Mceztd9255-95-15 21:56:00* Test Item Value Reference Range Interpretation Comments Cortisol PM Sample (test code = 9812-9) 8.2 2.3-11.9 16:46 DRAW TIMEPerformed at: [address], T X [id number] Director: Kevin Lino MD, Phone: [phone] [place], [place] [address]Cortisol PM Jrblzv6009-16-99 21:56:00* Test Item Value Reference Range Interpretation Comments Cortisol PM Sample (test code = 9812-9) 8.2 2.3-11.9 16:46 DRAW TIMEPerformed at: [facility], X [id number] Director: Kevin Lino MD, Phone: [phone] [place], [place] [address]Cortisol PM Wfpaig3094-05-13 21:56:00* Test Item Value Reference Range Interpretation Comments Cortisol PM Sample (test code = 9812-9) 8.2 2.3-11.9 16:46 DRAW TIMEPerformed at: [facility], X [id number] Director: Kevin Lino MD, Phone: [phone] [place], [place] [address]Cortisol PM Uuebhm1367-22-68 21:56:00* Test Item Value Reference Range Interpretation Comments Cortisol PM Sample (test code = 9812-9) 8.2 2.3-11.9 16:46 DRAW TIMEPerformed at: [facility], X [id number] Director: Kevin Lino MD, Phone: [phone] [place], [place] [address]Cortisol PM Dboceu0476-81-86 21:56:00* Test Item Value Reference Range Interpretation Comments Cortisol PM Sample (test code = 9812-9) 8.2 2.3-11.9 16:46 DRAW TIMEPerformed at: [facility], T X [id number] Director: Kevin Lino MD, Phone: [phone] [place], [place] [address]Cortisol PM Wdceex6690-82-93 21:56:00* Test Item Value Reference Range Interpretation Comments Cortisol PM Sample (test code = 9812-9) 8.2 2.3-11.9 16:46 DRAW TIMEPerformed at: [address], T X [id number] Director: Kevin Lino MD, Phone: [phone] [facility] Ghdpptu4452-52-60 08:45:00* Test Item Value Reference Range Interpretation Comments Bedside Glucose (test code = 42453-5) 104 70-120 Meter ID: [id number] [facility] Glucose 2019-04-20 08:45:00* Test Item Value Reference Range Interpretation Comments Bedside Glucose (test code = 51725-4) 104 70-120 Meter ID: [id number] Behavioral Health Hospitalodium Level 2019-04-20 05:32:00* Test Item Value Reference Range Interpretation Comments Sodium Level (test code = 2951-2) 141 136-145 [facility] TexasPotassium Wctgy1824-13-05 05:32:00* Test Item Value Reference Range Interpretation Comments Potassium Level (test code = 2823-3) 3.3 3.5-5.1 L [facility] TexasChloride Dhsea7305-39-63 05:32:00* Test Item Value Reference Range Interpretation Comments Chloride Level (test code = 2075-0) 116 98-107 H [facility] TexasCarbon Dioxide Bygbe2936-05-75 05:32:00* Test Item Value Reference Range Interpretation Comments Carbon Dioxide Level (test code = 2028-9) 15 22-29 L [facility] TexasAnion Oov3878-04-58 05:32:00* Test Item Value Reference Range Interpretation Comments Anion Gap (test code = 99062-4) 13.3 8-16 [facility] TexasBlood Urea Loqexnbn9252-14-18 05:32:00* Test Item Value Reference Range Interpretation Comments Blood Urea Nitrogen (test code = 3094-0) 47 7-26 H [facility] TexasCreatinine2019-10-28 05:32:00* Test Item Value Reference Range Interpretation Comments Creatinine (test code = 2160-0) 3.62 0.57-1.11 H [facility] TexasBUN/Creatinine Peqpm7227-18-72 05:32:00* Test Item Value Reference Range Interpretation Comments BUN/Creatinine Ratio (test code = 3097-3) 13 6-25 [facility] TexasEstimat Glomerular Filtration Rate 2019-04-20 05:32:00* Test Item Value Reference Range Interpretation Comments Estimat Glomerular Filtration Rate (test code = 474626631) 13 >60 L Ranges were taken from the National Kidney Disease Education Program and the [facility] Kidney Foundation literature.Reference ranges:60 or greater: Xfycqw24-81 ( for 3 consecutive months): Chronic kidney disease 15 or less: Kidney failureDell Seton Medical Center at The University of TexasGlucose Hkway1039-01-61 05:32:00* Test Item Value Reference Range Interpretation Comments Glucose Level (test code = MKK6941) 86 74-118 [facility] TexasCalcium Qebug4297-91-79 05:32:00* Test Item Value Reference Range Interpretation Comments Calcium Level (test code = 46024-8) 8.6 8.4-10.2 [facility]odium Bsfkz8354-09-91 05:32:00* Test Item Value Reference Range Interpretation Comments Sodium Level (test code = 2951-2) 141 136-145 [facility] TexasPotassium Pfcif2894-78-19 05:32:00* Test Item Value Reference Range Interpretation Comments Potassium Level (test code = 2823-3) 3.3 3.5-5.1 L [facility] TexasChloride Vnwnu8881-88-06 05:32:00* Test Item Value Reference Range Interpretation Comments Chloride Level (test code = 2075-0) 116 98-107 H [facility] of TexasCarbon Dioxide Nyqgt9496-56-42 05:32:00* Test Item Value Reference Range Interpretation Comments Carbon Dioxide Level (test code = 2028-9) 15 22-29 L [facility] TexasAnion Fge0778-79-82 05:32:00* Test Item Value Reference Range Interpretation Comments Anion Gap (test code = 97483-0) 13.3 8-16 [facility] TexasBlood Urea Wtoeuxid6990-11-05 05:32:00* Test Item Value Reference Range Interpretation Comments Blood Urea Nitrogen (test code = 3094-0) 47 7-26 H [facility] TexasCreatinine2019-10-28 05:32:00* Test Item Value Reference Range Interpretation Comments Creatinine (test code = 2160-0) 3.62 0.57-1.11 H [facility] TexasBUN/Creatinine Brrqr6840-94-80 05:32:00* Test Item Value Reference Range Interpretation Comments BUN/Creatinine Ratio (test code = 3097-3) 13 6-25 [facility] TexasEstimat Glomerular Filtration Rate 2019-04-20 05:32:00* Test Item Value Reference Range Interpretation Comments Estimat Glomerular Filtration Rate (test code = 873090456) 13 >60 L Ranges were taken from the National Kidney Disease Education Program and the [facility] Kidney Foundation literature.Reference ranges:60 or greater: Alrkgx33-87 ( for 3 consecutive months): Chronic kidney disease 15 or less: Kidney failureDell Seton Medical Center at The University of TexasGlucose Tijod2705-71-30 05:32:00* Test Item Value Reference Range Interpretation Comments Glucose Level (test code = UZH8993) 86 74-118 [facility] TexasCalcium Dymja1624-72-66 05:32:00* Test Item Value Reference Range Interpretation Comments Calcium Level (test code = 24953-1) 8.6 8.4-10.2 [facility] TexasWhite Blood Yldyu3626-72-41 05:19:00* Test Item Value Reference Range Interpretation Comments White Blood Count (test code = 6690-2) 12.49 4.8-10.8 H [facility] of TexasRed Blood Vdnli0235-53-59 05:19:00* Test Item Value Reference Range Interpretation Comments Red Blood Count (test code = 789-8) 3.91 3.6-5.1 [facility] TexasHemoglobin2019-10-28 05:19:00* Test Item Value Reference Range Interpretation Comments Hemoglobin (test code = 36686-7) 10.5 12.0-16.0 L [facility] TexasHematocrit2019-10-28 05:19:00* Test Item Value Reference Range Interpretation Comments Hematocrit (test code = 4544-3) 32.3 34.2-44.1 L [facility] of TexasMean Corpuscular Guguzw2830-61-26 05:19:00* Test Item Value Reference Range Interpretation Comments Mean Corpuscular Volume (test code = 787-2) 82.6 81-99 [facility] TexasMean Corpuscular Tdkuqhlmqx0470-47-60 05:19:00* Test Item Value Reference Range Interpretation Comments Mean Corpuscular Hemoglobin (test code = 785-6) 26.9 28-32 L [facility] TexasMean Corpuscular Hemoglobin Concent 2019-04-20 05:19:00* Test Item Value Reference Range Interpretation Comments Mean Corpuscular Hemoglobin Concent (test code = 786-4) 32.5 31-35 [facility] of TexasRed Cell Distribution Hfihw8829-65-31 05:19:00* Test Item Value Reference Range Interpretation Comments Red Cell Distribution Width (test code = 69815-1) 14.1 11.7 -14.4 [facility] TexasPlatelet Xpwhq2855-01-29 05:19:00* Test Item Value Reference Range Interpretation Comments Platelet Count (test code = 777-3) 414 140-360 H [facility] TexasNeutrophils (%) (Auto)2019-04-20 05:19:00 * Test Item Value Reference Range Interpretation Comments Neutrophils (%) (Auto) (test code = 68981-7) 63.8 38.7-80.0 [facility] TexasLymphocytes (%) (Auto)2019-04-20 05:19:00 * Test Item Value Reference Range Interpretation Comments Lymphocytes (%) (Auto) (test code = 736-9) 25.5 18.0-39.1 [facility] TexasMonocytes (%) (Auto)2019-04-20 05:19:00* Test Item Value Reference Range Interpretation Comments Monocytes (%) (Auto) (test code = 5905-5) 5.4 4.4-11.3 [facility] TexasEosinophils (%) (Auto)2019-04-20 05:19:00 * Test Item Value Reference Range Interpretation Comments Eosinophils (%) (Auto) (test code = 713-8) 3.8 0.0-6.0 [facility] TexasBasophils (%) (Auto)2019-04-20 05:19:00* Test Item Value Reference Range Interpretation Comments Basophils (%) (Auto) (test code = 706-2) 0.9 0.0-1.0 [facility] of TexasIM GRANULOCYTES %2019-04-20 05:19:00* Test Item Value Reference Range Interpretation Comments IM GRANULOCYTES % (test code = IM GRANULOCYTES %) 0.6 0.0- 1.0 [facility] TexasNeutrophils # (Auto)2019-04-20 05:19:00* Test Item Value Reference Range Interpretation Comments Neutrophils # (Auto) (test code = 751-8) 8.0 2.1-6.9 H [facility] of TexasLymphocytes # (Auto)2019-04-20 05:19:00* Test Item Value Reference Range Interpretation Comments Lymphocytes # (Auto) (test code = 57818-3) 3.2 1.0-3.2 [facility] TexasMonocytes # (Auto)2019-04-20 05:19:00* Test Item Value Reference Range Interpretation Comments Monocytes # (Auto) (test code = 742-7) 0.7 0.2-0.8 [facility] TexasEosinophils # (Auto)2019-04-20 05:19:00* Test Item Value Reference Range Interpretation Comments Eosinophils # (Auto) (test code = 711-2) 0.5 0.0-0.4 H [facility] TexasBasophils # (Auto)2019-04-20 05:19:00* Test Item Value Reference Range Interpretation Comments Basophils # (Auto) (test code = 704-7) 0.1 0.0-0.1 [facility] [facility] TexasAbsolute Immature Granulocyte (auto 2019-04-20 05:19:00* Test Item Value Reference Range Interpretation Comments Absolute Immature Granulocyte (auto (jake t code = Absolute Immature Granulocyte (auto) 0.08 0-0.1 [facility] TexasWhite Blood Clwni5560-39-60 05:19:00* Test Item Value Reference Range Interpretation Comments White Blood Count (test code = 6690-2) 12.49 4.8-10.8 H [facility] TexasRed Blood Ivzer9912-86-89 05:19:00* Test Item Value Reference Range Interpretation Comments Red Blood Count (test code = 789-8) 3.91 3.6-5.1 [facility] TexasHemoglobin2019-10-28 05:19:00* Test Item Value Reference Range Interpretation Comments Hemoglobin (test code = 20978-4) 10.5 12.0-16.0 L [facility] TexasHematocrit2019-10-28 05:19:00* Test Item Value Reference Range Interpretation Comments Hematocrit (test code = 4544-3) 32.3 34.2-44.1 L [facility] TexasMean Corpuscular Tnhchi2654-89-92 05:19:00* Test Item Value Reference Range Interpretation Comments Mean Corpuscular Volume (test code = 787-2) 82.6 81-99 [facility] TexasMean Corpuscular Wzkwugyxzi8140-99-16 05:19:00* Test Item Value Reference Range Interpretation Comments Mean Corpuscular Hemoglobin (test code = 785-6) 26.9 28-32 L [facility] TexasMean Corpuscular Hemoglobin Concent 2019-04-20 05:19:00* Test Item Value Reference Range Interpretation Comments Mean Corpuscular Hemoglobin Concent (test code = 786-4) 32.5 31-35 [facility] TexasRed Cell Distribution Omsvj6362-13-82 05:19:00* Test Item Value Reference Range Interpretation Comments Red Cell Distribution Width (test code = 65094-0) 14.1 11.7 -14.4 [facility] TexasPlatelet Jsyvl7110-80-67 05:19:00* Test Item Value Reference Range Interpretation Comments Platelet Count (test code = 777-3) 414 140-360 H [facility] TexasNeutrophils (%) (Auto)2019-04-20 05:19:00 * Test Item Value Reference Range Interpretation Comments Neutrophils (%) (Auto) (test code = 80612-8) 63.8 38.7-80.0 [facility] TexasLymphocytes (%) (Auto)2019-04-20 05:19:00 * Test Item Value Reference Range Interpretation Comments Lymphocytes (%) (Auto) (test code = 736-9) 25.5 18.0-39.1 [facility] TexasMonocytes (%) (Auto)2019-04-20 05:19:00* Test Item Value Reference Range Interpretation Comments Monocytes (%) (Auto) (test code = 5905-5) 5.4 4.4-11.3 [facility] TexasEosinophils (%) (Auto)2019-04-20 05:19:00 * Test Item Value Reference Range Interpretation Comments Eosinophils (%) (Auto) (test code = 713-8) 3.8 0.0-6.0 [facility] TexasBasophils (%) (Auto)2019-04-20 05:19:00* Test Item Value Reference Range Interpretation Comments Basophils (%) (Auto) (test code = 706-2) 0.9 0.0-1.0 [facility] TexasIM GRANULOCYTES %2019-04-20 05:19:00* Test Item Value Reference Range Interpretation Comments IM GRANULOCYTES % (test code = IM GRANULOCYTES %) 0.6 0.0- 1.0 [facility] TexasNeutrophils # (Auto)2019-04-20 05:19:00* Test Item Value Reference Range Interpretation Comments Neutrophils # (Auto) (test code = 751-8) 8.0 2.1-6.9 H [facility] TexasLymphocytes # (Auto)2019-04-20 05:19:00* Test Item Value Reference Range Interpretation Comments Lymphocytes # (Auto) (test code = 84605-7) 3.2 1.0-3.2 [facility] TexasMonocytes # (Auto)2019-04-20 05:19:00* Test Item Value Reference Range Interpretation Comments Monocytes # (Auto) (test code = 742-7) 0.7 0.2-0.8 [facility] TexasEosinophils # (Auto)2019-04-20 05:19:00* Test Item Value Reference Range Interpretation Comments Eosinophils # (Auto) (test code = 711-2) 0.5 0.0-0.4 H [facility] TexasBasophils # (Auto)2019-04-20 05:19:00* Test Item Value Reference Range Interpretation Comments Basophils # (Auto) (test code = 704-7) 0.1 0.0-0.1 [facility] TexasAbsolute Immature Granulocyte (auto 2019-04-20 05:19:00* Test Item Value Reference Range Interpretation Comments Absolute Immature Granulocyte (auto (jake t code = Absolute Immature Granulocyte (auto) 0.08 0-0.1 [facility] of TexasThyroid Stimulating Hormone (TSH) 2019-04-19 15:20:00* Test Item Value Reference Range Interpretation Comments Thyroid Stimulating Hormone (TSH) (test code = GHY7007) 6.260 0.450-4.500 H Performed at: [address] [id number] Director: Kevin Lino MD, Phone: [phone] [facility] University of TexasThyroid Stimulating Hormone (TSH)2019-04-19 15:20:00* Test Item Value Reference Range Interpretation Comments Thyroid Stimulating Hormone (TSH) (test code = QFS6509) 6.260 0.450-4.500 H Performed at: [facility] [id number] Director: Kevin Lino MD, Phone: [phone] [facility] of TexasThyroid Stimulating Hormone (TSH)2019-04-19 15:20:00* Test Item Value Reference Range Interpretation Comments Thyroid Stimulating Hormone (TSH) (test code = SZW7730) 6.260 0.450-4.500 H Performed at: [address] [id number] Director: Kevin Lino MD, Phone: [phone] [place], [place] [address]Thyroid Stimulating Hormone (TSH)2019-04-19 15:20:00* Test Item Value Reference Range Interpretation Comments Thyroid Stimulating Hormone (TSH) (test code = SKD5092) 6.260 0.450-4.500 H Performed at: [address] [id number] Director: Kevin Lino MD, Phone: [phone] [facility] of TexasThyroid Stimulating Hormone (TSH)2019-04-19 15:20:00* Test Item Value Reference Range Interpretation Comments Thyroid Stimulating Hormone (TSH) (test code = BPX3841) 6.260 0.450-4.500 H Performed at: [address] [id number] Director: Kevin Lino MD, Phone: [phone] [facility] of TexasThyroid Stimulating Hormone (TSH)2019-04-19 15:20:00* Test Item Value Reference Range Interpretation Comments Thyroid Stimulating Hormone (TSH) (test code = ZWU5232) 6.260 0.450-4.500 H Performed at: [address] [id number] Director: Kevin Lino MD, Phone: [phone] [facility] of TexasThyroid Stimulating Hormone (TSH)2019-04-19 15:20:00* Test Item Value Reference Range Interpretation Comments Thyroid Stimulating Hormone (TSH) (test code = KOY4986) 6.260 0.450-4.500 H Performed at: [address] [id number] Director: Kevin Lino MD, Phone: [phone] [facility] of TexasBlood Pugnwhn5485-90-04 11:39:00* Test Item Value Reference Range Interpretation Comments Blood Culture (test code = 73838482) NO GROWTH AFTER 24 HOURS [facility] TexasCreatine Kinase YH9168-30-34 20:15:00* Test Item Value Reference Range Interpretation Comments Creatine Kinase MB (test code = 03859-6) 5.80 0-5.0 H [facility] TexasTroponin H9236-15-98 20:15:00* Test Item Value Reference Range Interpretation Comments Troponin I (test code = CMO2007) 0.082 0-0.300 [facility] TexasCreatine Kinase EJ4074-20-80 20:15:00* Test Item Value Reference Range Interpretation Comments Creatine Kinase MB (test code = 27947-1) 5.80 0-5.0 H [facility] TexasTroponin D0226-51-52 20:15:00* Test Item Value Reference Range Interpretation Comments Troponin I (test code = AKT5890) 0.082 0-0.300 [facility] TexasCreatine Hkioby6064-55-85 19:52:00* Test Item Value Reference Range Interpretation Comments Creatine Kinase (test code = 2157-6) 339 29-168 H [facility] TexasCreatine Sxadxn6277-61-78 19:52:00* Test Item Value Reference Range Interpretation Comments Creatine Kinase (test code = 2157-6) 339 29-168 [facility] cortisol measurement PM trough specimen (mass/volume)2019-04-18 16:46:00* Test Item Value Reference Range Interpretation Comments Cortisol PM Sample (test code = 9812-9) 8.2 2.3-11.9 16:46 DRAW TIMEPerformed at: [employer], [place] [id number] Director: Kevin Lino MD, Phone: [phone] Hospitalerum or plasma cortisol measurement PM trough specimen (mass/volume)2019-04-18 16:46:00* Test Item Value Reference Range Interpretation Comments Cortisol PM Sample (test code = 9812-9) 8.2 2.3-11.9 16:46 DRAW TIMEPerformed at: [employer], [place] [id number] Director: Kevin Lino MD, Phone: [phone] [facility] of TexasIron Lyaxn9239-86-20 12:26:00* Test Item Value Reference Range Interpretation Comments Iron Level (test code = 2498-4) 49 50-170 L [facility] TexasTotal Iron Binding Riklzwpf0452-44-53 12:26:00* Test Item Value Reference Range Interpretation Comments Total Iron Binding Capacity (test code = 2500-7) 185 261-4 78 L [facility] TexasPercent Iron Isauyanjyi3225-01-47 12:26:00* Test Item Value Reference Range Interpretation Comments Percent Iron Saturation (test code = 2502-3) 26 15-50 [facility] TexasTransferrin2019-10-26 12:26:00* Test Item Value Reference Range Interpretation Comments Transferrin (test code = 3034-6) 132 180-382 L [facility] TexasTriglycerides Xsvwv9338-90-76 12:26:00* Test Item Value Reference Range Interpretation Comments Triglycerides Level (test code = 2571-8) 171 0-149 H [facility] TexasCholesterol Rwxco8095-01-45 12:26:00* Test Item Value Reference Range Interpretation Comments Cholesterol Level (test code = 2093-3) 154 0-199 Less than 200 mg/dL Low Jcih094 - 239 mg/dL Borderline Zuio212 m g/dl and greater High Risk [facility] TexasLDL Anwctfdndjh8040-98-53 12:26:00* Test Item Value Reference Range Interpretation Comments LDL Cholesterol (test code = 2089-1) 87 60-130 [facility] TexasHDL Tnasxnmylqq3237-30-33 12:26:00* Test Item Value Reference Range Interpretation Comments HDL Cholesterol (test code = 2085-9) 33 40-60 L [facility] TexasCholesterol/HDL Oygxu2456-98-07 12:26:00 * Test Item Value Reference Range Interpretation Comments Cholesterol/HDL Ratio (test code = 9830-1) 4.7 3.0-3.6 H [facility] TexasAmylase Ebvfe5371-17-75 12:26:00* Test Item Value Reference Range Interpretation Comments Amylase Level (test code = 1798-8) 85 25-125 [facility] TexasIron Yaklx5112-07-03 12:26:00* Test Item Value Reference Range Interpretation Comments Iron Level (test code = 2498-4) 49 50-170 L [facility] TexasTotal Iron Binding Oalojzsm9537-49-31 12:26:00* Test Item Value Reference Range Interpretation Comments Total Iron Binding Capacity (test code = 2500-7) 185 261-4 78 L [facility] TexasPercent Iron Ytslocbsex5892-23-83 12:26:00* Test Item Value Reference Range Interpretation Comments Percent Iron Saturation (test code = 2502-3) 26 15-50 [facility] TexasTransferrin2019-10-26 12:26:00* Test Item Value Reference Range Interpretation Comments Transferrin (test code = 3034-6) 132 180-382 L [facility] TexasTriglycerides Bkqbe5020-20-62 12:26:00* Test Item Value Reference Range Interpretation Comments Triglycerides Level (test code = 2571-8) 171 0-149 H [facility] TexasCholesterol Kipbl6089-15-66 12:26:00* Test Item Value Reference Range Interpretation Comments Cholesterol Level (test code = 2093-3) 154 0-199 Less than 200 mg/dL Low Xsax585 - 239 mg/dL Borderline Bbru713 m g/dl and greater High Risk [facility] TexasLDL Gyglllqnexs2165-12-79 12:26:00* Test Item Value Reference Range Interpretation Comments LDL Cholesterol (test code = 2089-1) 87 60-130 [facility] TexasHDL Ocwlskwigph2067-17-95 12:26:00* Test Item Value Reference Range Interpretation Comments HDL Cholesterol (test code = 2085-9) 33 40-60 L [facility] TexasCholesterol/HDL Opanp9738-08-16 12:26:00 * Test Item Value Reference Range Interpretation Comments Cholesterol/HDL Ratio (test code = 9830-1) 4.7 3.0-3.6 H [facility] TexasAmylase Ozhlv1727-01-67 12:26:00* Test Item Value Reference Range Interpretation Comments Amylase Level (test code = 1798-8) 85 25-125 [facility] TexasAmylase Vosee0799-76-41 12:26:00* Test Item Value Reference Range Interpretation Comments Amylase Level (test code = 1798-8) 85 25-125 [facility] TexasAmylase Ouimq5299-03-20 12:26:00* Test Item Value Reference Range Interpretation Comments Amylase Level (test code = 1798-8) 85 25-125 [facility] TexasAmylase Ehiau6436-61-15 12:26:00* Test Item Value Reference Range Interpretation Comments Amylase Level (test code = 1798-8) 85 25-125 [facility] TexasAmylase Ddfqu1630-00-83 12:26:00* Test Item Value Reference Range Interpretation Comments Amylase Level (test code = 1798-8) 85 25-125 [facility] TexasAmylase Tcarh8582-64-10 12:26:00* Test Item Value Reference Range Interpretation Comments Amylase Level (test code = 1798-8) 85 25-125 [facility] TexasHemoglobin A1c Nryiixu7584-45-33 12:00:00 * Test Item Value Reference Range Interpretation Comments Hemoglobin A1c Percent (test code = Hemoglobin A1c Percent) 4.9 4.0-7.0 [facility] TexasHemoglobin A1c Pzlgafb3297-28-02 12:00:00 * Test Item Value Reference Range Interpretation Comments Hemoglobin A1c Percent (test code = Hemoglobin A1c Percent) 4.9 4.0-7.0 [facility]2019-10-26 11:57:00* Test Item Value Reference Range Interpretation Comments Ammonia (test code = 56527-3) 45 -123 [facility]2019-10-26 11:57:00* Test Item Value Reference Range Interpretation Comments Ammonia (test code = 25158-3) 45 31-123 [facility]er[facility] plasma amylase measurement (enzymatic activity/volume)2019-04-18 11:15:00* Test Item Value Reference Range Interpretation Comments Amylase Level (test code = 1798-8) 85 25-125 [facility] TexasQualitative serum rapid plasma reagin (RPR) pyex2222-46-06 11:15:00* Test Item Value Reference Range Interpretation Comments Rapid Plasma Reagin (test code = 50209-7) Non Reactive Non Reactive Performed at: [address] [id number] Director: Kevin Lino MD, Phone: [phone] Hospitalerum or plasma thyrotropin measurement (mass/volume)2019-04-18 11:15:00* Test Item Value Reference Range Interpretation Comments Thyroid Stimulating Hormone (TSH) (test code = HPR9446) 6.260 0.450-4.500 Performed at: [address] [id number] Director: Kevin Lino MD, Phone: [phone] Hospitalerum or plasma amylase measurement (enzymatic activity/volume)2019-04-18 11:15:00* Test Item Value Reference Range Interpretation Comments Amylase Level (test code = 1798-8) 85 25-125 [facility] TexasQualitative serum rapid plasma reagin (RPR) ieic1243-52-28 11:15:00* Test Item Value Reference Range Interpretation Comments Rapid Plasma Reagin (test code = 39448-2) Non Reactive Non Reactive Performed at: [address] [id number] Director: Kevin Lino MD, Phone: [phone] Hospitalerum or plasma thyrotropin measurement (mass/volume)2019-04-18 11:15:00* Test Item Value Reference Range Interpretation Comments Thyroid Stimulating Hormone (TSH) (test code = SBD0257) 6.260 0.450-4.500 Performed at: [address] [id number] Director: Kevin Lino MD, Phone: [phone] [facility] of TexasTotal Miyhfuaxv0134-81-49 05:42:00* Test Item Value Reference Range Interpretation Comments Total Bilirubin (test code = 1975-2) 0.2 0.2-1.2 [facility] TexasAspartate Amino Transf (AST/SGOT) 2019-04-18 05:42:00* Test Item Value Reference Range Interpretation Comments Aspartate Amino Transf (AST/SGOT) (test code = Aspartate Amino Transf (AST/SGOT)) [facility] TexasAlanine Aminotransferase (ALT/SGPT) 2019-04-18 05:42:00* Test Item Value Reference Range Interpretation Comments Alanine Aminotransferase (ALT/SGPT) (test code = 1742-6) 19 0-55 [facility] TexasTotal Habrgmg0321-05-77 05:42:00* Test Item Value Reference Range Interpretation Comments Total Protein (test code = 2885-2) 5.7 6.5-8.1 L [facility] TexasAlbumin2019-10-26 05:42:00* Test Item Value Reference Range Interpretation Comments Albumin (test code = 1751-7) 2.2 3.5-5.0 L [facility] TexasGlobulin2019-10-26 05:42:00* Test Item Value Reference Range Interpretation Comments Globulin (test code = 43493-7) 3.5 2.3-3.5 [facility] TexasAlbumin/Globulin Arjkr9005-65-46 05:42:00 * Test Item Value Reference Range Interpretation Comments Albumin/Globulin Ratio (test code = 1759-0) 0.6 0.8-2.0 L [facility] TexasAlkaline Yzgjbmxtofm6006-01-51 05:42:00* Test Item Value Reference Range Interpretation Comments Alkaline Phosphatase (test code = 6768-6) 86 40-150 [facility] TexasTotal Egcbatsuj5392-18-69 05:42:00* Test Item Value Reference Range Interpretation Comments Total Bilirubin (test code = 1975-2) 0.2 0.2-1.2 [facility] TexasAspartate Amino Transf (AST/SGOT) 2019-04-18 05:42:00* Test Item Value Reference Range Interpretation Comments Aspartate Amino Transf (AST/SGOT) (test code = Aspartate Amino Transf (AST/SGOT)) 34 [facility] TexasAlanine Aminotransferase (ALT/SGPT) 2019-04-18 05:42:00* Test Item Value Reference Range Interpretation Comments Alanine Aminotransferase (ALT/SGPT) (test code = 1742-6) 19 0-55 [facility] TexasTotal Uxlczwp4866-52-14 05:42:00* Test Item Value Reference Range Interpretation Comments Total Protein (test code = 2885-2) 5.7 6.5-8.1 L [facility] TexasAlbumin2019-10-26 05:42:00* Test Item Value Reference Range Interpretation Comments Albumin (test code = 1751-7) 2.2 3.5-5.0 L [facility] TexasGlobulin2019-10-26 05:42:00* Test Item Value Reference Range Interpretation Comments Globulin (test code = 11497-7) 3.5 2.3-3.5 [facility] TexasAlbumin/Globulin Wclsy7681-93-26 05:42:00 * Test Item Value Reference Range Interpretation Comments Albumin/Globulin Ratio (test code = 1759-0) 0.6 0.8-2.0 L [facility] TexasAlkaline Ufijqyqguff2117-61-46 05:42:00* Test Item Value Reference Range Interpretation Comments Alkaline Phosphatase (test code = 6768-6) 86 40-150 [facility] TexasCHEST 2 YFCGH6983-13-05 18:43:00 [facility] [address] [place] [address] Patient Name: DEO ESCUDERO MR #: [id number] : 1955 Age/Sex: 64/F Req #: [id number] Adm Physician: Ordered by: NATALIA GREEN [employer] Report #: [id number] Location: ER Room/Bed: Procedure: [id number] DX/CH EST 2 VIEWS Exam Date: 04/17/19 Exam Time: 1824 REPORT STATUS: Signed EXAMINATION: PA and lateral views of the chest. COMPARISON: None CLINICAL HISTORY: Falling asleep, chills DISCUSSION: Lines/tubes: None. Harriet ngs: The lungs are well inflated and clear. No pneumonia or pulmonary edema. Pleura: No pleural effusion or pneumothorax. Heart and mediastinum: The cardiomediastinal silhouette is normal. Bones and soft tissues: No acute bony abnormalities. IMPRESSION: No acute cardiopulmonary abnormalitie s. Signed by: Dr. Javan Hutchinson M.D. on 04/17/2019 6:44 PM Dictated By: JAVAN HUTCHINSON MD 43 Transcribed By: SCAR on 04/17/191843 COPY TO: NATALIA GREEN NP Urine ANT4471-57-90 17:57:00* Test Item Value Reference Range Interpretation Comments Urine WBC (test code = 5821-4) NONE 0-5 [facility] TexasUrine MQH0926-36-87 17:57:00* Test Item Value Reference Range Interpretation Comments Urine RBC (test code = 89391-3) 11-20 0-5 H [facility] TexasUrine Ajjryeki6251-05-38 17:57:00* Test Item Value Reference Range Interpretation Comments Urine Bacteria (test code = 32402-4) MODERATE NONE H [facility] TexasUrine Epithelial Wigwi1558-95-24 17:57:00 * Test Item Value Reference Range Interpretation Comments Urine Epithelial Cells (test code = 95622-6) MANY NONE [facility] TexasUrine NJU7672-42-31 17:57:00* Test Item Value Reference Range Interpretation Comments Urine WBC (test code = 5821-4) NONE 0-5 [facility] TexasUrine BED8940-29-21 17:57:00* Test Item Value Reference Range Interpretation Comments Urine RBC (test code = 95201-7) 11-20 0-5 H [facility] TexasUrine Fzxggvto2966-52-25 17:57:00* Test Item Value Reference Range Interpretation Comments Urine Bacteria (test code = 77817-0) MODERATE NONE H [facility] TexasUrine Epithelial Hhvgl2922-30-50 17:57:00 * Test Item Value Reference Range Interpretation Comments Urine Epithelial Cells (test code = 48229-7) MANY NONE [facility] TexasUrine Gjlqk3449-23-41 17:43:00* Test Item Value Reference Range Interpretation Comments Urine Color (test code = 5778-6) YELLOW YELLOW [facility] TexasUrine Rcwjgiw1672-30-90 17:43:00* Test Item Value Reference Range Interpretation Comments Urine Clarity (test code = 58893-5) CLOUDY CLEAR H [facility] TexasUrine Specific Vemmoby2524-90-64 17:43:00 * Test Item Value Reference Range Interpretation Comments Urine Specific [place] (test code = 5811-5) 1.025 1.010-1.02 5 [facility] TexasUrine zA8167-19-61 17:43:00* Test Item Value Reference Range Interpretation Comments Urine pH (test code = 15250-9) 6 5-7 [facility] TexasUrine Leukocyte Dbukyseh7243-50-37 17:43:00* Test Item Value Reference Range Interpretation Comments Urine Leukocyte Esterase (test code = 27636-3) NEGATIVE NEGATIV E [facility] TexasUrine Qdfrjzj6481-93-54 17:43:00* Test Item Value Reference Range Interpretation Comments Urine Nitrite (test code = 96737-6) NEGATIVE NEGATIVE [facility] TexasUrine Jspbomd2029-36-90 17:43:00* Test Item Value Reference Range Interpretation Comments Urine Protein (test code = 96307-2) 2+ NEGATIVE H [facility] TexasUrine Glucose (UA)2019-04-17 17:43:00* Test Item Value Reference Range Interpretation Comments Urine Glucose (UA) (test code = 16388-2) 1+ NEGATIVE H [facility] TexasUrine Abmbimx3417-95-70 17:43:00* Test Item Value Reference Range Interpretation Comments Urine Ketones (test code = 01099-2) NEGATIVE NEGATIVE [facility] [facility] TexasUrine Katocxkhwowx4668-40-18 17:43:00* Test Item Value Reference Range Interpretation Comments Urine Urobilinogen (test code = 79476-4) 0.2 0.2-1 [facility] TexasUrine Uqouamtdy3458-30-25 17:43:00* Test Item Value Reference Range Interpretation Comments Urine Bilirubin (test code = 1977-8) NEGATIVE NEGATIVE [facility] TexasUrine Tljkv2221-87-29 17:43:00* Test Item Value Reference Range Interpretation Comments Urine Blood (test code = 54558-8) MODERATE NEGATIVE [facility] TexasUrine Fjlan6373-20-40 17:43:00* Test Item Value Reference Range Interpretation Comments Urine Color (test code = 5778-6) YELLOW YELLOW [facility] TexasUrine Cxndoof0538-23-65 17:43:00* Test Item Value Reference Range Interpretation Comments Urine Clarity (test code = 52463-5) CLOUDY CLEAR H [facility] TexasUrine Specific Fyeimgn9897-37-02 17:43:00 * Test Item Value Reference Range Interpretation Comments Urine Specific [place] (test code = 5811-5) 1.025 1.010-1.02 5 [facility] TexasUrine mP1096-29-87 17:43:00* Test Item Value Reference Range Interpretation Comments Urine pH (test code = 34690-1) 6 5-7 [facility] TexasUrine Leukocyte Pkuvyvzf3795-87-23 17:43:00* Test Item Value Reference Range Interpretation Comments Urine Leukocyte Esterase (test code = 44674-7) NEGATIVE NEGATIV E [facility] TexasUrine Ysukkvq0804-70-54 17:43:00* Test Item Value Reference Range Interpretation Comments Urine Nitrite (test code = 58398-1) NEGATIVE NEGATIVE [facility] TexasUrine Cutjzdn5878-33-79 17:43:00* Test Item Value Reference Range Interpretation Comments Urine Protein (test code = 49355-7) 2+ NEGATIVE H [facility] TexasUrine Glucose (UA)2019-04-17 17:43:00* Test Item Value Reference Range Interpretation Comments Urine Glucose (UA) (test code = 40119-7) 1+ NEGATIVE H [facility] TexasUrine Nqdkivt2031-87-55 17:43:00* Test Item Value Reference Range Interpretation Comments Urine Ketones (test code = 07779-6) NEGATIVE NEGATIVE [facility] TexasUrine Gspzltegjjxx1318-81-51 17:43:00* Test Item Value Reference Range Interpretation Comments Urine Urobilinogen (test code = 91599-7) 0.2 0.2-1 [facility] TexasUrine Aohvkcyev9248-62-80 17:43:00* Test Item Value Reference Range Interpretation Comments Urine Bilirubin (test code = 1977-8) NEGATIVE NEGATIVE [facility] TexasUrine Qcjlt4449-71-57 17:43:00* Test Item Value Reference Range Interpretation Comments Urine Blood (test code = 29228-8) MODERATE NEGATIVE [facility] TexasBedside Weyiybi0471-92-68 11:41:00* Test Item Value Reference Range Interpretation Comments Bedside Glucose (test code = 90866-2) 71 70-120 Meter ID: [id number] Hospitalodium Level 2019-01-05 06:08:00* Test Item Value Reference Range Interpretation Comments Sodium Level (test code = 2951-2) 142 136-145 [facility] TexasPotassium Ugztw5364-95-61 06:08:00* Test Item Value Reference Range Interpretation Comments Potassium Level (test code = 2823-3) 3.5 3.5-5.1 [facility] TexasChloride Bciyy3212-27-02 06:08:00* Test Item Value Reference Range Interpretation Comments Chloride Level (test code = 2075-0) 120 98-107 H [facility] TexasCarbon Dioxide Gbgae5380-77-29 06:08:00* Test Item Value Reference Range Interpretation Comments Carbon Dioxide Level (test code = 2028-9) 15 22-29 L [facility] TexasAnion Gwd2802-67-15 06:08:00* Test Item Value Reference Range Interpretation Comments Anion Gap (test code = 07335-1) 10.5 8-16 [facility] TexasBlood Urea Nykrlgsi6612-58-86 06:08:00* Test Item Value Reference Range Interpretation Comments Blood Urea Nitrogen (test code = 3094-0) 25 7-26 [facility] TexasCreatinine2019-07-15 06:08:00* Test Item Value Reference Range Interpretation Comments Creatinine (test code = 2160-0) 1.77 0.57-1.11 H [facility] TexasBUN/Creatinine Kxfni8143-24-40 06:08:00* Test Item Value Reference Range Interpretation Comments BUN/Creatinine Ratio (test code = 3097-3) 14 6- [facility] TexasEstimat Glomerular Filtration Rate 2019-01-05 06:08:00* Test Item Value Reference Range Interpretation Comments Estimat Glomerular Filtration Rate (test code = 160051024) 29 >60 L Ranges were taken from the National Kidney Disease Education Program and the [facility] Kidney Foundation literature.Reference ranges:60 or greater: Qvrend13-95 ( for 3 consecutive months): Chronic kidney disease 15 or less: Kidney failureDell [facility] Center at [facility] University of TexasGlucose Yilbn2232-28-86 06:08:00* Test Item Value Reference Range Interpretation Comments Glucose Level (test code = EUF2427) 96 74-118 [facility] TexasCalcium Tuceq0354-89-05 06:08:00* Test Item Value Reference Range Interpretation Comments Calcium Level (test code = 15953-2) 8.0 8.4-10.2 L [facility] TexasWhite Blood Kkkjl6130-16-23 05:28:00* Test Item Value Reference Range Interpretation Comments White Blood Count (test code = 6690-2) 11.05 4.8-10.8 H [facility] TexasRed Blood Vgrdh1025-02-78 05:28:00* Test Item Value Reference Range Interpretation Comments Red Blood Count (test code = 789-8) 3.93 3.6-5.1 [facility] TexasHemoglobin2019-07-15 05:28:00* Test Item Value Reference Range Interpretation Comments Hemoglobin (test code = 64956-9) 10.9 12.0-16.0 L [facility] TexasHematocrit2019-07-15 05:28:00* Test Item Value Reference Range Interpretation Comments Hematocrit (test code = 4544-3) 33.2 34.2-44.1 L [facility] TexasMean Corpuscular Emktyi5967-25-48 05:28:00* Test Item Value Reference Range Interpretation Comments Mean Corpuscular Volume (test code = 787-2) 84.5 81-99 [facility] TexasMean Corpuscular Iwgqqcnstc5415-93-96 05:28:00* Test Item Value Reference Range Interpretation Comments Mean Corpuscular Hemoglobin (test code = 785-6) 27.7 28-32 L [facility] TexasMean Corpuscular Hemoglobin Concent 2019-01-05 05:28:00* Test Item Value Reference Range Interpretation Comments Mean Corpuscular Hemoglobin Concent (test code = 786-4) 32.8 31-35 [facility] TexasRed Cell Distribution Vpztr6732-08-56 05:28:00* Test Item Value Reference Range Interpretation Comments Red Cell Distribution Width (test code = 31756-6) 13.5 11.7 -14.4 [facility] TexasPlatelet Ztlcs4673-98-68 05:28:00* Test Item Value Reference Range Interpretation Comments Platelet Count (test code = 777-3) 363 140-360 H [facility] TexasNeutrophils (%) (Auto)2019-01-05 05:28:00 * Test Item Value Reference Range Interpretation Comments Neutrophils (%) (Auto) (test code = 02739-0) 59.9 38.7-80.0 [facility] TexasLymphocytes (%) (Auto)2019-01-05 05:28:00 * Test Item Value Reference Range Interpretation Comments Lymphocytes (%) (Auto) (test code = 736-9) 30.0 18.0-39.1 [facility] TexasMonocytes (%) (Auto)2019-01-05 05:28:00* Test Item Value Reference Range Interpretation Comments Monocytes (%) (Auto) (test code = 5905-5) 5.6 4.4-11.3 [facility] TexasEosinophils (%) (Auto)2019-01-05 05:28:00 * Test Item Value Reference Range Interpretation Comments Eosinophils (%) (Auto) (test code = 713-8) 3.3 0.0-6.0 [facility] TexasBasophils (%) (Auto)2019-01-05 05:28:00* Test Item Value Reference Range Interpretation Comments Basophils (%) (Auto) (test code = 706-2) 0.8 0.0-1.0 [facility] of TexasIM GRANULOCYTES %2019-01-05 05:28:00* Test Item Value Reference Range Interpretation Comments IM GRANULOCYTES % (test code = IM GRANULOCYTES %) 0.4 0.0- 1.0 [facility] TexasNeutrophils # (Auto)2019-01-05 05:28:00* Test Item Value Reference Range Interpretation Comments Neutrophils # (Auto) (test code = 751-8) 6.6 2.1-6.9 [facility] TexasLymphocytes # (Auto)2019-01-05 05:28:00* Test Item Value Reference Range Interpretation Comments Lymphocytes # (Auto) (test code = 34314-5) 3.3 1.0-3.2 H [facility] TexasMonocytes # (Auto)2019-01-05 05:28:00* Test Item Value Reference Range Interpretation Comments Monocytes # (Auto) (test code = 742-7) 0.6 0.2-0.8 [facility] TexasEosinophils # (Auto)2019-01-05 05:28:00* Test Item Value Reference Range Interpretation Comments Eosinophils # (Auto) (test code = 711-2) 0.4 0.0-0.4 [facility] TexasBasophils # (Auto)2019-01-05 05:28:00* Test Item Value Reference Range Interpretation Comments Basophils # (Auto) (test code = 704-7) 0.1 0.0-0.1 [facility] TexasAbsolute Immature Granulocyte (auto 2019-01-05 05:28:00* Test Item Value Reference Range Interpretation Comments Absolute Immature Granulocyte (auto (jake t code = Absolute Immature Granulocyte (auto) 0.04 0-0.1 [facility] TexasTotal Cvhtmwwbl1647-28-12 06:42:00* Test Item Value Reference Range Interpretation Comments Total Bilirubin (test code = 1975-2) 0.3 0.2-1.2 [facility] TexasAspartate Amino Transf (AST/SGOT) 2019-01-03 06:42:00* Test Item Value Reference Range Interpretation Comments Aspartate Amino Transf (AST/SGOT) (test code = Aspartate Amino Transf (AST/SGOT)) 10 5-34 [facility] TexasAlanine Aminotransferase (ALT/SGPT) 2019-01-03 06:42:00* Test Item Value Reference Range Interpretation Comments Alanine Aminotransferase (ALT/SGPT) (test code = 1742-6) < 6 0-55 [facility] TexasTotal Nrlejsy8829-99-54 06:42:00* Test Item Value Reference Range Interpretation Comments Total Protein (test code = 2885-2) 4.5 6.5-8.1 L [facility] TexasAlbumin2019-07-13 06:42:00* Test Item Value Reference Range Interpretation Comments Albumin (test code = 1751-7) 1.7 3.5-5.0 L [facility] TexasGlobulin2019-07-13 06:42:00* Test Item Value Reference Range Interpretation Comments Globulin (test code = 20909-6) 2.8 2.3-3.5 [facility] TexasAlbumin/Globulin Jghbk4468-47-64 06:42:00 * Test Item Value Reference Range Interpretation Comments Albumin/Globulin Ratio (test code = 1759-0) 0.6 0.8-2.0 L [facility] TexasAlkaline Kizbbowevpt4655-46-60 06:42:00* Test Item Value Reference Range Interpretation Comments Alkaline Phosphatase (test code = 6768-6) 64 40-150 [facility] of TexasMRI BRAIN CA4848-18-75 11:46:00 [place] [address] Patient Name: DEO ESCUDERO MR #: [id number] : 1955 Age/Sex: 63[id number] Req #: [id number] Adm Physician: ZAINA GORDON MD Ordered by: KARLI MANSFIELD MD Report #: [id number] Location: MED/SURG Room/Bed: [facility] Procedure: [id number] MRI/MRI BRAIN WO Exam Date: Exam Time: REPORT STATUS: Signed EXAMINATION: Brain MRI and MR angiogram of [place] CLINICAL HISTORY: Left upper extremity weakness and numbness. TIA, acute renal failure. COMPARISON: Head CT of 01/01/2019 and brain MRI of 10/01/2018 TECHNIQUE: Brain: Sagittal T2; axial DWI, T2, FLAIR, T1-IR, T2 gradient echo; coronal FLAIR. MRAs: 3D TOF and 2D-TOF images were obtained of [...] significant inflammatory d isease. MRA OF [place] : The distal internal carotid, dis maura vertebral, basilar, and cerebral arteries are patent. No significant sten osis, occlusion, aneurysm, or arteriovenous malformation is seen. Anatomi c variation: Anterior Communicating Artery: Patent Posterior Communicating A rteries: Patent on the right with origin of the right SAP ABAP PROGRAMMER, not well-visu alized on the left Vertebral [...] MANSFIELD MD MRA HEAD WO 2019-01-02 11:46:00 [place] [address] Patient Name: DEO ESCUDERO MR #: [id number] : 1955 Age/Sex: 63/F Req #: [id number] Adm Physician: ZAINA GORDON MD Ordered by: ZAINA GORDON MD Report #: [id number] Location: MED/SURG Room/Bed: [facility] Procedure: [id number] MR I/MRA HEAD WO Exam Date: Exam Time: REPORT STATUS: Signed EXAMINATION: Brain MRI a nd MR angiogram of [place] CLINICAL HISTORY: Left [...] significant inflammatory disea se. MRA OF [place] : The distal internal carotid, distal vertebral, basilar, and cerebral arteries are patent. No significant stenosis , occlusion, aneurysm, or arteriovenous malformation is seen. Anatomic va riation: Anterior Communicating Artery: Patent Posterior Communicating Arter ies: Patent on the right with origin of the right SAP ABAP PROGRAMMER, not well-visualiz ed on the left Vertebral [...] in caliber, and patent, no evidence of vikas noses. Left Carotid Artery: The common carotid, [...] COPY TO: ZAINA GORDON MD MRA NECK JK0636-24-69 11:46:00 [place] [address] Patient Name: DEO ESCUDERO MR #: [id number] : 1955 Age/Sex: 63/F Req #: [id number] Adm Physician: ZAINA GORDON MD Ordered by: ZAINA GORDON MD Report #: [id number] Location: MED/SURG Room/Bed: 111-1 Procedure: [id number] MR I/MRA NECK WO Exam Date: Exam Time: REPORT STATUS: Signed EXAMINATION: Brain MRI a nd MR angiogram of [place] CLINICAL HISTORY: Left [...] significant inflammatory disea se. MRA OF [place] : The distal internal carotid, distal vertebral, basilar, and cerebral arteries are patent. No significant stenosis , occlusion, aneurysm, or arteriovenous malformation is seen. Anatomic va riation: Anterior Communicating Artery: Patent Posterior Communicating Arter ies: Patent on the right with origin of the right SAP ABAP PROGRAMMER, not well-visualiz ed on the left Vertebral [...] in caliber, and patent, no evidence of vikas noses. Left Carotid Artery: The common carotid, [...] 01/02/19 1202 COPY TO: ZAINA GORDON MD Hemoglobin A1c Percent 2019-01-02 07:19:00* Test Item Value Reference Range Interpretation Comments Hemoglobin A1c Percent (test code = Hemoglobin A1c Percent) 5.5 4.0-7.0 [facility] TexasTriglycerides Fstzw6696-20-23 07:19:00* Test Item Value Reference Range Interpretation Comments Triglycerides Level (test code = 2571-8) 166 0-149 H [facility] TexasCholesterol Qlflw7541-67-76 07:19:00* Test Item Value Reference Range Interpretation Comments Cholesterol Level (test code = 2093-3) 149 0-199 Less than 200 mg/dL Low Exdy075 - 239 mg/dL Borderline Coex637 m g/dl and greater High Risk [facility] of TexasLDL Lnwwsacaatt8407-22-54 07:19:00* Test Item Value Reference Range Interpretation Comments LDL Cholesterol (test code = 2089-1) 86 60-130 [facility] TexasHDL Vqfohkigavh7077-71-08 07:19:00* Test Item Value Reference Range Interpretation Comments HDL Cholesterol (test code = 2085-9) 30 40-60 L [facility] TexasCholesterol/HDL Vogzw3665-11-49 07:19:00 * Test Item Value Reference Range Interpretation Comments Cholesterol/HDL Ratio (test code = 9830-1) 5.0 3.0-3.6 H [facility] TexasUrine MZB0180-43-67 15:50:00* Test Item Value Reference Range Interpretation Comments Urine WBC (test code = 5821-4) 0-5 0-5 [facility] TexasUrine LRA2290-44-43 15:50:00* Test Item Value Reference Range Interpretation Comments Urine RBC (test code = 79660-9) 6-10 0-5 H [facility] TexasUrine Gslskvdz3277-45-97 15:50:00* Test Item Value Reference Range Interpretation Comments Urine Bacteria (test code = 79735-2) MODERATE NONE H [facility] TexasUrine Epithelial Ydpbc6917-82-06 15:50:00 * Test Item Value Reference Range Interpretation Comments Urine Epithelial Cells (test code = 56811-1) MODERATE NONE [facility] TexasUrine Hexaf3511-52-45 15:38:00* Test Item Value Reference Range Interpretation Comments Urine Color (test code = 5778-6) YELLOW YELLOW [facility] TexasUrine Dfklvdy1317-03-44 15:38:00* Test Item Value Reference Range Interpretation Comments Urine Clarity (test code = 01999-8) CLEAR CLEAR [facility] TexasUrine Specific Piyfssj5092-09-88 15:38:00 * Test Item Value Reference Range Interpretation Comments Urine Specific [place] (test code = 5811-5) 1.015 1.010-1.02 5 [facility] TexasUrine sY9673-25-19 15:38:00* Test Item Value Reference Range Interpretation Comments Urine pH (test code = 27857-4) 6.5 5-7 [facility] TexasUrine Leukocyte Voqqpume0225-29-90 15:38:00* Test Item Value Reference Range Interpretation Comments Urine Leukocyte Esterase (test code = 83626-1) NEGATIVE NEGATIV E [facility] Hlhjhos9278-19-80 15:38:00* Test Item Value Reference Range Interpretation Comments Urine Nitrite (test code = 77757-0) NEGATIVE NEGATIVE [facility] Casxiwd0347-32-03 15:38:00* Test Item Value Reference Range Interpretation Comments Urine Protein (test code = 74470-0) 2+ NEGATIVE H [facility] Glucose (UA)2019-01-01 15:38:00* Test Item Value Reference Range Interpretation Comments Urine Glucose (UA) (test code = 89510-2) 2+ NEGATIVE H [facility] Wcaxwmo4601-00-06 15:38:00* Test Item Value Reference Range Interpretation Comments Urine Ketones (test code = 95010-7) NEGATIVE NEGATIVE [facility] Icntozmjpxqb8165-41-09 15:38:00* Test Item Value Reference Range Interpretation Comments Urine Urobilinogen (test code = 74248-1) 0.2 0.2-1 [facility] TexasUrine Lmfysptbm3107-90-97 15:38:00* Test Item Value Reference Range Interpretation Comments Urine Bilirubin (test code = 1977-8) NEGATIVE NEGATIVE [facility] TexasUrine Dlycd4747-05-29 15:38:00* Test Item Value Reference Range Interpretation Comments Urine Blood (test code = 08460-6) 1+ NEGATIVE [facility] TexasCreatine Nqygwc0971-83-55 14:59:00* Test Item Value Reference Range Interpretation Comments Creatine Kinase (test code = 2157-6) 56 29-168 [facility] TexasCreatine Kinase SV0867-39-82 14:59:00* Test Item Value Reference Range Interpretation Comments Creatine Kinase MB (test code = 33841-0) 3.20 0-5.0 [facility] TexasTroponin T5025-06-37 14:59:00* Test Item Value Reference Range Interpretation Comments Troponin I (test code = FGW1353) 0.004 0-0.300 [facility] TexasProthrombin Dzrh6641-90-47 14:42:00* Test Item Value Reference Range Interpretation Comments Prothrombin Time (test code = 5902-2) 12.7 11.9-14.5 [facility] TexasProthromb Time International Ratio 2019-01-01 14:42:00* Test Item Value Reference Range Interpretation Comments Prothromb Time International Ratio (test code = 6301-6) 0.91 Oral Anticoagulant Therapy INR Values:1. Low Intensity Therapy 1.5 - 2.02 . Moderate Intensity Therapy 2.0 - 3.03. High Intensity Therapy(1) 2.5 - 3. 54. High Intensity Therapy(2) 3.0 - 4.05. Panic Value INR > 5.0 [facility] TexasActivated Partial Thromboplast Time 2019-01-01 14:42:00* Test Item Value Reference Range Interpretation Comments Activated Partial Thromboplast Time (test code = 71161-9) 30.3 23.8-35.5 [facility] TexasProthrombin Bgoa7476-22-17 14:42:00* Test Item Value Reference Range Interpretation Comments Prothrombin Time (test code = 5902-2) 12.7 11.9-14.5 [facility] TexasProthromb Time International Ratio 2019-01-01 14:42:00* Test Item Value Reference Range Interpretation Comments Prothromb Time International Ratio (test code = 6301-6) 0.91 Oral Anticoagulant Therapy INR Values:1. Low Intensity Therapy 1.5 - 2.02 . Moderate Intensity Therapy 2.0 - 3.03. High Intensity Therapy(1) 2.5 - 3. 54. High Intensity Therapy(2) 3.0 - 4.05. Panic Value INR > 5.0 [facility] TexasActivated Partial Thromboplast Time 2019-01-01 14:42:00* Test Item Value Reference Range Interpretation Comments Activated Partial Thromboplast Time (test code = 95430-4) 30.3 23.8-35.5 [facility] TexasProthrombin Wqkx5125-44-39 14:42:00* Test Item Value Reference Range Interpretation Comments Prothrombin Time (test code = 5902-2) 12.7 11.9-14.5 [facility] TexasProthromb Time International Ratio 2019-01-01 14:42:00* Test Item Value Reference Range Interpretation Comments Prothromb Time International Ratio (test code = 6301-6) 0.91 Oral Anticoagulant Therapy INR Values:1. Low Intensity Therapy 1.5 - 2.02 . Moderate Intensity Therapy 2.0 - 3.03. High Intensity Therapy(1) 2.5 - 3. 54. High Intensity Therapy(2) 3.0 - 4.05. Panic Value INR > 5.0 [facility] TexasActivated Partial Thromboplast Time 2019-01-01 14:42:00* Test Item Value Reference Range Interpretation Comments Activated Partial Thromboplast Time (test code = 20275-4) 30.3 23.8-35.5 [facility] TexasCHEST SINGLE (PORTABLE)2019-01-01 14:24:00 [facility] [address] [place] [address] Patient Name: DEO ESCUDERO MR #: [id number] : 1955 Age/Sex: 63/F Req #: [id number] Adm Physician: Ordered by: KARLI MANSFIELD MD Report #: [id number] Location: Room/Bed: Procedure: [id number] D X/CHEST SINGLE (PORTABLE) Exam Date: 01/01/19 [...] 2:24 PM Dictated By: DENISSE HEADLEY MD 1422 Transcribe d By: SCAR on 01/01/19 2861 COPY TO: KARLI MANSFIELD MD CT BRAIN VI8884-09-05 13:27:00 [place] [address] Patient Name: DEO ESCUDERO MR #: [id number] : 1955 Age/Sex: 63/F Req #: [id number] Adm Physician: Ordered by: JANIE RIVER MD Report #: [id number] Location: ER Room/Bed: Procedure: [id number] CT/ CT BRAIN WO Exam Date: 01/01/19 [...] infarcts as described. Signed by: Dr. Thomas Perez M.D. on 01/01/2019 1:32 PM Dictated By: THOMAS PEREZ MD 1332 Transcribed By: SCAR on 01/01/19 1332 COPY TO: JANIE GODINEZ MD Bedside Cvyoxgm2005-40-11 16:59:00* Test Item Value Reference Range Interpretation Comments Bedside Glucose (test code = 75566-0) 105 70-120 Meter ID: [id number] [facility] of TexasBedside Glucose 2018-10-02 16:59:00* Test Item Value Reference Range Interpretation Comments Bedside Glucose (test code = 56537-7) 105 70-120 Meter ID: [id number] [facility] The University of TexasUrine Random Total Brskfys9255-06-81 10:39:00* Test Item Value Reference Range Interpretation Comments Urine Random Total Protein (test code = 2888-6) 1055.7 1-14 H [facility] TexasUrine Protein/Creatinine Kcmsg0423-59-73 10:39:00* Test Item Value Reference Range Interpretation Comments Urine Protein/Creatinine Ratio (test code = 45095-1) 26.00 [facility] Random Total Uptyusw0592-63-38 10:39:00* Test Item Value Reference Range Interpretation Comments Urine Random Total Protein (test code = 2888-6) 1055.7 1-14 H [facility] TexasUrine Protein/Creatinine Zbxnl0518-54-62 10:39:00* Test Item Value Reference Range Interpretation Comments Urine Protein/Creatinine Ratio (test code = 58375-4) 26.00 [facility] TexasU[facility] Random Total Vyxmwxi3313-33-21 10:39:00* Test Item Value Reference Range Interpretation Comments Urine Random Total Protein (test code = 2888-6) 1055.7 1-14 H [facility] TexasUrine Protein/Creatinine Qikoi2260-82-55 10:39:00* Test Item Value Reference Range Interpretation Comments Urine Protein/Creatinine Ratio (test code = 48511-9) 26.00 [facility] Texas[facility] Random Total Voqsirl3678-77-29 10:39:00* Test Item Value Reference Range Interpretation Comments Urine Random Total Protein (test code = 2888-6) 1055.7 1-14 H [facility] TexasU[facility] Protein/Creatinine Ubuca9625-41-91 10:39:00* Test Item Value Reference Range Interpretation Comments Urine Protein/Creatinine Ratio (test code = 35087-2) 26.00 [facility] TexasU[facility] Random Total Rrintrm5105-24-76 10:39:00* Test Item Value Reference Range Interpretation Comments Urine Random Total Protein (test code = 2888-6) 1055.7 1-14 H [facility] TexasU[facility] Protein/Creatinine Rtwyb9915-68-97 10:39:00* Test Item Value Reference Range Interpretation Comments Urine Protein/Creatinine Ratio (test code = 40788-0) 26.00 [facility] Random Total Gwodeua0231-47-60 10:39:00* Test Item Value Reference Range Interpretation Comments Urine Random Total Protein (test code = 2888-6) 1055.7 1-14 H [facility] Protein/Creatinine Irfgm8316-48-69 10:39:00* Test Item Value Reference Range Interpretation Comments Urine Protein/Creatinine Ratio (test code = 14405-9) 26.00 [facility] Hmomjtomud1501-21-33 10:37:00* Test Item Value Reference Range Interpretation Comments Urine Creatinine (test code = 2161-8) 40.02 47-110 L [facility] Fjvzeaasby3698-31-40 10:37:00* Test Item Value Reference Range Interpretation Comments Urine Creatinine (test code = 2161-8) 40.02 47-110 L [facility] Mqhjbjtmah5882-05-07 10:37:00* Test Item Value Reference Range Interpretation Comments Urine Creatinine (test code = 2161-8) 40.02 47-110 L [facility] Zpgtgbreyh7579-30-86 10:37:00* Test Item Value Reference Range Interpretation Comments Urine Creatinine (test code = 2161-8) 40.02 47-110 L [facility] Jydxxooefj4689-62-64 10:37:00* Test Item Value Reference Range Interpretation Comments Urine Creatinine (test code = 2161-8) 40.02 47-110 L [facility] TexasU[facility] Rbobzojmcw8890-43-34 10:37:00* Test Item Value Reference Range Interpretation Comments Urine Creatinine (test code = 2161-8) 40.02 47-110 L [facility] TexasBedside Qsrglmt0830-86-22 07:26:00* Test Item Value Reference Range Interpretation Comments Bedside Glucose (test code = 99611-2) 101 70-120 Meter ID: [id number] [facility] TexasUrine WCK0764-32-77 06:31:00* Test Item Value Reference Range Interpretation Comments Urine WBC (test code = 5821-4) 0-5 0-5 [facility] TexasU[facility] RJE9565-22-58 06:31:00* Test Item Value Reference Range Interpretation Comments Urine RBC (test code = 51433-0) 0-5 0-5 [facility] TexasU[facility] Ztnlujgm6010-86-36 06:31:00* Test Item Value Reference Range Interpretation Comments Urine Bacteria (test code = 75488-6) RARE NONE [facility] TexasUrine Epithelial Lagsi5065-69-89 06:31:00 * Test Item Value Reference Range Interpretation Comments Urine Epithelial Cells (test code = 87833-9) RARE NONE [facility] TexasU[facility] UXG1662-89-76 06:31:00* Test Item Value Reference Range Interpretation Comments Urine WBC (test code = 5821-4) 0-5 0-5 [facility] TexasU[facility] YHM3096-49-94 06:31:00* Test Item Value Reference Range Interpretation Comments Urine RBC (test code = 65390-5) 0-5 0-5 [facility] TexasU[facility] Eozvlxci7782-36-27 06:31:00* Test Item Value Reference Range Interpretation Comments Urine Bacteria (test code = 24194-7) RARE NONE [facility] TexasU[facility] Epithelial Lzmtp6850-95-23 06:31:00 * Test Item Value Reference Range Interpretation Comments Urine Epithelial Cells (test code = 54244-8) RARE NONE [facility] TexasU[facility] TGF0172-80-39 06:31:00* Test Item Value Reference Range Interpretation Comments Urine WBC (test code = 5821-4) 0-5 0-5 [facility] TexasU[facility] TLZ2243-55-83 06:31:00* Test Item Value Reference Range Interpretation Comments Urine RBC (test code = 43919-0) 0-5 0-5 [facility] TexasU[facility] Bwkpzkpf0953-14-24 06:31:00* Test Item Value Reference Range Interpretation Comments Urine Bacteria (test code = 96919-8) RARE NONE [facility] TexasU[facility] Epithelial Ndxzb6897-50-67 06:31:00 * Test Item Value Reference Range Interpretation Comments Urine Epithelial Cells (test code = 11782-3) RARE NONE [facility] TexasU[facility] Afhnp2595-98-73 06:19:00* Test Item Value Reference Range Interpretation Comments Urine Color (test code = 5778-6) YELLOW YELLOW [facility] TexasU[facility] Gquhrat3107-79-71 06:19:00* Test Item Value Reference Range Interpretation Comments Urine Clarity (test code = 09460-9) SL CLOUDY CLEAR [facility] Specific Iixntud6589-12-43 06:19:00 * Test Item Value Reference Range Interpretation Comments Urine Specific [place] (test code = 5811-5) 1.020 1.010-1.02 5 [facility] TexasUrine vZ0747-88-09 06:19:00* Test Item Value Reference Range Interpretation Comments Urine pH (test code = 92289-8) 6.5 5-7 [facility] Leukocyte Bcrfqmyj5219-24-18 06:19:00* Test Item Value Reference Range Interpretation Comments Urine Leukocyte Esterase (test code = 5799-2) NEGATIVE NEGATIVE [facility] Vsuxpyc1685-02-73 06:19:00* Test Item Value Reference Range Interpretation Comments Urine Nitrite (test code = 63434-7) NEGATIVE NEGATIVE [facility] Wuohhud4953-05-02 06:19:00* Test Item Value Reference Range Interpretation Comments Urine Protein (test code = 5804-0) 3+ NEGATIVE H [facility] TexasUrine Glucose (UA)2018-10-02 06:19:00* Test Item Value Reference Range Interpretation Comments Urine Glucose (UA) (test code = 2349-9) 2+ NEGATIVE H [facility] TexasU[facility] Rzvkorf5098-24-80 06:19:00* Test Item Value Reference Range Interpretation Comments Urine Ketones (test code = 89698-9) NEGATIVE NEGATIVE [facility] Jojyomqqmpdf8528-99-97 06:19:00* Test Item Value Reference Range Interpretation Comments Urine Urobilinogen (test code = 11654-2) 0.2 0.2-1 [facility] Yvwbfkzdx3445-84-82 06:19:00* Test Item Value Reference Range Interpretation Comments Urine Bilirubin (test code = 1978-6) NEGATIVE NEGATIVE [facility] TexasU[facility] Ljnbv9452-90-28 06:19:00* Test Item Value Reference Range Interpretation Comments Urine Blood (test code = 22461-4) TRACE NEGATIVE H [facility] TexasU[facility] Jtlqp9698-69-59 06:19:00* Test Item Value Reference Range Interpretation Comments Urine Color (test code = 5778-6) YELLOW YELLOW [facility] TexasU[facility] Uowljeh6412-38-37 06:19:00* Test Item Value Reference Range Interpretation Comments Urine Clarity (test code = 64751-0) SL CLOUDY CLEAR [facility] TexasU[facility] Specific Apzxbcq0414-04-59 06:19:00 * Test Item Value Reference Range Interpretation Comments Urine Specific [place] (test code = 5811-5) 1.020 1.010-1.02 5 [facility] TexasU[facility] oO3472-51-02 06:19:00* Test Item Value Reference Range Interpretation Comments Urine pH (test code = 15756-5) 6.5 5-7 [facility] Leukocyte Ipkcmagy0944-64-71 06:19:00* Test Item Value Reference Range Interpretation Comments Urine Leukocyte Esterase (test code = 5799-2) NEGATIVE NEGATIVE [facility] TexasU[facility] Cltyeym6070-13-26 06:19:00* Test Item Value Reference Range Interpretation Comments Urine Nitrite (test code = 86476-6) NEGATIVE NEGATIVE [facility] TexasU[facility] Bobobvl8353-84-57 06:19:00* Test Item Value Reference Range Interpretation Comments Urine Protein (test code = 5804-0) 3+ NEGATIVE H [facility] TexasUrine Glucose (UA)2018-10-02 06:19:00* Test Item Value Reference Range Interpretation Comments Urine Glucose (UA) (test code = 2349-9) 2+ NEGATIVE H [facility] TexasU[facility] Koewdeg4314-74-66 06:19:00* Test Item Value Reference Range Interpretation Comments Urine Ketones (test code = 46633-8) NEGATIVE NEGATIVE [facility] TexasU[facility] Sptymecfozwh6131-52-35 06:19:00* Test Item Value Reference Range Interpretation Comments Urine Urobilinogen (test code = 58733-9) 0.2 0.2-1 [facility] TexasU[facility] Kuwvrjxhl7055-93-89 06:19:00* Test Item Value Reference Range Interpretation Comments Urine Bilirubin (test code = 1978-6) NEGATIVE NEGATIVE [facility] Grxzz3864-83-07 06:19:00* Test Item Value Reference Range Interpretation Comments Urine Blood (test code = 67981-4) TRACE NEGATIVE H [facility] Ifmgn4270-80-46 06:19:00* Test Item Value Reference Range Interpretation Comments Urine Color (test code = 5778-6) YELLOW YELLOW [facility] Ivssqkf3584-18-20 06:19:00* Test Item Value Reference Range Interpretation Comments Urine Clarity (test code = 69154-1) SL CLOUDY CLEAR [facility] Specific Mnparmk6435-44-10 06:19:00 * Test Item Value Reference Range Interpretation Comments Urine Specific [place] (test code = 5811-5) 1.020 1.010-1.02 5 [facility] TexasU[facility] yN9185-54-32 06:19:00* Test Item Value Reference Range Interpretation Comments Urine pH (test code = 29295-4) 6.5 5-7 [facility] TexasU[facility] Leukocyte Fozwcpqs4322-70-51 06:19:00* Test Item Value Reference Range Interpretation Comments Urine Leukocyte Esterase (test code = 5799-2) NEGATIVE NEGATIVE [facility] TexasU[facility] Onsuxeb3530-47-45 06:19:00* Test Item Value Reference Range Interpretation Comments Urine Nitrite (test code = 57476-2) NEGATIVE NEGATIVE [facility] TexasU[facility] Gvoksqg0950-83-98 06:19:00* Test Item Value Reference Range Interpretation Comments Urine Protein (test code = 5804-0) 3+ NEGATIVE H [facility] TexasUrine Glucose (UA)2018-10-02 06:19:00* Test Item Value Reference Range Interpretation Comments Urine Glucose (UA) (test code = 2349-9) 2+ NEGATIVE H [facility] TexasUrine Vkzccjk6502-75-07 06:19:00* Test Item Value Reference Range Interpretation Comments Urine Ketones (test code = 54864-5) NEGATIVE NEGATIVE [facility] TexasUrine Fvfewazrwvee1839-37-81 06:19:00* Test Item Value Reference Range Interpretation Comments Urine Urobilinogen (test code = 69451-4) 0.2 0.2-1 [facility] TexasU[facility] Yffkqcqxr4010-26-02 06:19:00* Test Item Value Reference Range Interpretation Comments Urine Bilirubin (test code = 1978-6) NEGATIVE NEGATIVE [facility] TexasUrine Fxvjh6927-62-11 06:19:00* Test Item Value Reference Range Interpretation Comments Urine Blood (test code = 68170-6) TRACE NEGATIVE [facility] Wmxsl0329-79-18 05:45:00* Test Item Value Reference Range Interpretation Comments Sodium Level (test code = 2951-2) 138 136-145 [facility] TexasPotassium Itxxb6977-58-02 05:45:00* Test Item Value Reference Range Interpretation Comments Potassium Level (test code = 2823-3) 4.8 3.5-5.1 [facility] TexasChloride Ksoen5428-38-90 05:45:00* Test Item Value Reference Range Interpretation Comments Chloride Level (test code = 2075-0) 116 98-107 H [facility] TexasCarbon Dioxide Bplgk9898-14-60 05:45:00* Test Item Value Reference Range Interpretation Comments Carbon Dioxide Level (test code = 2028-9) 18 22-29 L [facility] TexasAnion Ncv1009-82-98 05:45:00* Test Item Value Reference Range Interpretation Comments Anion Gap (test code = 64453-9) 8.8 8-16 [facility] TexasBlood Urea Yrqwdnam5303-88-51 05:45:00* Test Item Value Reference Range Interpretation Comments Blood Urea Nitrogen (test code = 3094-0) 39 7-26 H [facility] TexasCreatinine2019-04-11 05:45:00* Test Item Value Reference Range Interpretation Comments Creatinine (test code = 2160-0) 1.74 0.57-1.11 H [facility] TexasBUN/Creatinine Oxeqi3078-49-81 05:45:00* Test Item Value Reference Range Interpretation Comments BUN/Creatinine Ratio (test code = 3097-3) 22 6-25 [facility] TexasEstimat Glomerular Filtration Rate 2018-10-02 05:45:00* Test Item Value Reference Range Interpretation Comments Estimat Glomerular Filtration Rate (test code = 733422363) 29 >60 L Ranges were taken from the National Kidney Disease Education Program and the [facility] Kidney Foundation literature.Reference ranges:60 or greater: Nctdth71-00 ( for 3 consecutive months): Chronic kidney disease 15 or less: Kidney failureDell [facility] at [facility] University of TexasGlucose Dbomg3504-95-44 05:45:00* Test Item Value Reference Range Interpretation Comments Glucose Level (test code = WQT6324) 104 74-118 [facility] TexasCalcium Qxdsb2296-80-49 05:45:00* Test Item Value Reference Range Interpretation Comments Calcium Level (test code = 29712-6) 8.4 8.4-10.2 [facility] Slpps6020-37-52 05:45:00* Test Item Value Reference Range Interpretation Comments Sodium Level (test code = 2951-2) 138 136-145 [facility] TexasPotassium Qmjyj3571-03-50 05:45:00* Test Item Value Reference Range Interpretation Comments Potassium Level (test code = 2823-3) 4.8 3.5-5.1 [facility] TexasChloride Eapme0697-51-74 05:45:00* Test Item Value Reference Range Interpretation Comments Chloride Level (test code = 2075-0) 116 98-107 H [facility] TexasCarbon Dioxide Thxff8644-22-37 05:45:00* Test Item Value Reference Range Interpretation Comments Carbon Dioxide Level (test code = 2028-9) 18 22-29 L [facility] TexasAnion Ljb5270-64-23 05:45:00* Test Item Value Reference Range Interpretation Comments Anion Gap (test code = 91343-0) 8.8 8-16 [facility] TexasBlood Urea Jbprfdin7614-00-99 05:45:00* Test Item Value Reference Range Interpretation Comments Blood Urea Nitrogen (test code = 3094-0) 39 7-26 H [facility] TexasCreatinine2019-04-11 05:45:00* Test Item Value Reference Range Interpretation Comments Creatinine (test code = 2160-0) 1.74 0.57-1.11 H [facility] TexasBUN/Creatinine Wmuik5319-94-69 05:45:00* Test Item Value Reference Range Interpretation Comments BUN/Creatinine Ratio (test code = 3097-3) 22 6-25 [facility] TexasEstimat Glomerular Filtration Rate 2018-10-02 05:45:00* Test Item Value Reference Range Interpretation Comments Estimat Glomerular Filtration Rate (test code = 198532526) 29 >60 L Ranges were taken from the National Kidney Disease Education Program and the [facility] Kidney Foundation literature.Reference ranges:60 or greater: Joqkzw33-53 ( for 3 consecutive months): Chronic kidney disease 15 or less: Kidney failureDell [facility]on [facility] Center at The University of TexasGlucose Ttdwx9589-10-27 05:45:00* Test Item Value Reference Range Interpretation Comments Glucose Level (test code = PZF4992) 104 74-118 [facility] TexasCalcium Yspmk9517-86-63 05:45:00* Test Item Value Reference Range Interpretation Comments Calcium Level (test code = 07152-1) 8.4 8.4-10.2 [facility] Nhhnj9032-27-53 05:45:00* Test Item Value Reference Range Interpretation Comments Sodium Level (test code = 2951-2) 138 136-145 [facility] TexasPotassium Kzyyk0848-44-56 05:45:00* Test Item Value Reference Range Interpretation Comments Potassium Level (test code = 2823-3) 4.8 3.5-5.1 [facility] TexasChloride Ywrke9922-06-65 05:45:00* Test Item Value Reference Range Interpretation Comments Chloride Level (test code = 2075-0) 116 98-107 H [facility] TexasCarbon Dioxide Piprf1714-38-51 05:45:00* Test Item Value Reference Range Interpretation Comments Carbon Dioxide Level (test code = 8-9) 18 22-29 L [facility] TexasAnion Uww3214-37-87 05:45:00* Test Item Value Reference Range Interpretation Comments Anion Gap (test code = 85609-0) 8.8 8-16 [facility] TexasBlood Urea Gpinjfbn2150-96-72 05:45:00* Test Item Value Reference Range Interpretation Comments Blood Urea Nitrogen (test code = 3094-0) 39 7-26 H [facility] TexasCreatinine2019-04-11 05:45:00* Test Item Value Reference Range Interpretation Comments Creatinine (test code = 2160-0) 1.74 0.57-1.11 H [facility] TexasBUN/Creatinine Ptuym8516-46-79 05:45:00* Test Item Value Reference Range Interpretation Comments BUN/Creatinine Ratio (test code = 3097-3) 22 6-25 [facility] TexasEstimat Glomerular Filtration Rate 2018-10-02 05:45:00* Test Item Value Reference Range Interpretation Comments Estimat Glomerular Filtration Rate (test code = 320067597) 29 >60 L Ranges were taken from the National Kidney Disease Education Program and the [facility] Foundation literature.Reference ranges:60 or greater: Genmed01-93 ( for 3 consecutive months): Chronic kidney disease 15 or less: Kidney failureDell [facility]on [facility] Center at The University of TexasGlucose Cktae8668-74-37 05:45:00* Test Item Value Reference Range Interpretation Comments Glucose Level (test code = RFD3435) 104 74-118 [facility] TexasCalcium Wgfpy5041-98-28 05:45:00* Test Item Value Reference Range Interpretation Comments Calcium Level (test code = 85722-2) 8.4 8.4-10.2 [facility] TexasWhite Blood Tyukr9788-42-55 04:58:00* Test Item Value Reference Range Interpretation Comments White Blood Count (test code = 6690-2) 11.01 4.8-10.8 H [facility] TexasRed Blood Vsydl1058-28-13 04:58:00* Test Item Value Reference Range Interpretation Comments Red Blood Count (test code = 789-8) 4.63 3.6-5.1 [facility] TexasHemoglobin2019-04-11 04:58:00* Test Item Value Reference Range Interpretation Comments Hemoglobin (test code = 22428-4) 12.2 12.0-16.0 [facility] TexasHematocrit2019-04-11 04:58:00* Test Item Value Reference Range Interpretation Comments Hematocrit (test code = 4544-3) 38.7 34.2-44.1 [facility] TexasMean Corpuscular Tvwbee7188-43-71 04:58:00* Test Item Value Reference Range Interpretation Comments Mean Corpuscular Volume (test code = 787-2) 83.6 81-99 [facility] TexasMean Corpuscular Izkmdaaoar4542-28-78 04:58:00* Test Item Value Reference Range Interpretation Comments Mean Corpuscular Hemoglobin (test code = 785-6) 26.3 28-32 L [facility] TexasMean Corpuscular Hemoglobin Concent 2018-10-02 04:58:00* Test Item Value Reference Range Interpretation Comments Mean Corpuscular Hemoglobin Concent (test code = 786-4) 31.5 31-35 [facility] TexasRed Cell Distribution Xrncc8870-20-75 04:58:00* Test Item Value Reference Range Interpretation Comments Red Cell Distribution Width (test code = 62593-9) 14.8 11.7 -14.4 H [facility] TexasPlatelet Uaeld1422-14-73 04:58:00* Test Item Value Reference Range Interpretation Comments Platelet Count (test code = 777-3) 394 140-360 H [facility] TexasNeutrophils (%) (Auto)2018-10-02 04:58:00 * Test Item Value Reference Range Interpretation Comments Neutrophils (%) (Auto) (test code = 77847-1) 51.9 38.7-80.0 [facility] TexasLymphocytes (%) (Auto)2018-10-02 04:58:00 * Test Item Value Reference Range Interpretation Comments Lymphocytes (%) (Auto) (test code = 736-9) 37.2 18.0-39.1 [facility] TexasMonocytes (%) (Auto)2018-10-02 04:58:00* Test Item Value Reference Range Interpretation Comments Monocytes (%) (Auto) (test code = 5905-5) 5.8 4.4-11.3 [facility] TexasEosinophils (%) (Auto)2018-10-02 04:58:00 * Test Item Value Reference Range Interpretation Comments Eosinophils (%) (Auto) (test code = 713-8) 3.7 0.0-6.0 [facility] TexasBasophils (%) (Auto)2018-10-02 04:58:00* Test Item Value Reference Range Interpretation Comments Basophils (%) (Auto) (test code = 706-2) 0.9 0.0-1.0 [facility] of TexasIM GRANULOCYTES %2018-10-02 04:58:00* Test Item Value Reference Range Interpretation Comments IM GRANULOCYTES % (test code = IM GRANULOCYTES %) 0.5 0.0- 1.0 [facility] TexasNeutrophils # (Auto)2018-10-02 04:58:00* Test Item Value Reference Range Interpretation Comments Neutrophils # (Auto) (test code = 751-8) 5.7 2.1-6.9 [facility] TexasLymphocytes # (Auto)2018-10-02 04:58:00* Test Item Value Reference Range Interpretation Comments Lymphocytes # (Auto) (test code = 55379-6) 4.1 1.0-3.2 H [facility] TexasMonocytes # (Auto)2018-10-02 04:58:00* Test Item Value Reference Range Interpretation Comments Monocytes # (Auto) (test code = 742-7) 0.6 0.2-0.8 [facility] TexasEosinophils # (Auto)2018-10-02 04:58:00* Test Item Value Reference Range Interpretation Comments Eosinophils # (Auto) (test code = 711-2) 0.4 0.0-0.4 [facility] TexasBasophils # (Auto)2018-10-02 04:58:00* Test Item Value Reference Range Interpretation Comments Basophils # (Auto) (test code = 704-7) 0.1 0.0-0.1 [facility] TexasAbsolute Immature Granulocyte (auto 2018-10-02 04:58:00* Test Item Value Reference Range Interpretation Comments Absolute Immature Granulocyte (auto (jake t code = Absolute Immature Granulocyte (auto) 0.06 0-0.1 [facility] TexasWhite Blood Tgpni3652-49-29 04:58:00* Test Item Value Reference Range Interpretation Comments White Blood Count (test code = 6690-2) 11.01 4.8-10.8 H [facility] TexasRed Blood Puktp6576-07-17 04:58:00* Test Item Value Reference Range Interpretation Comments Red Blood Count (test code = 789-8) 4.63 3.6-5.1 [facility] TexasHemoglobin2019-04-11 04:58:00* Test Item Value Reference Range Interpretation Comments Hemoglobin (test code = 54403-8) 12.2 12.0-16.0 [facility] TexasHematocrit2019-04-11 04:58:00* Test Item Value Reference Range Interpretation Comments Hematocrit (test code = 4544-3) 38.7 34.2-44.1 [facility] TexasMean Corpuscular Bvsjgv4195-67-01 04:58:00* Test Item Value Reference Range Interpretation Comments Mean Corpuscular Volume (test code = 787-2) 83.6 81-99 [facility] TexasMean Corpuscular Uwthhlcrww0800-00-47 04:58:00* Test Item Value Reference Range Interpretation Comments Mean Corpuscular Hemoglobin (test code = 785-6) 26.3 28-32 L [facility] TexasMe Corpuscular Hemoglobin Concent 2018-10-02 04:58:00* Test Item Value Reference Range Interpretation Comments Mean Corpuscular Hemoglobin Concent (test code = 786-4) 31.5 31-35 [facility] TexasRed Cell Distribution Kougb8556-61-71 04:58:00* Test Item Value Reference Range Interpretation Comments Red Cell Distribution Width (test code = 62738-3) 14.8 11.7 -14.4 H [facility] TexasPlatelet Yqtiv5994-29-01 04:58:00* Test Item Value Reference Range Interpretation Comments Platelet Count (test code = 777-3) 394 140-360 H [facility] TexasNeutrophils (%) (Auto)2018-10-02 04:58:00 * Test Item Value Reference Range Interpretation Comments Neutrophils (%) (Auto) (test code = 44828-3) 51.9 38.7-80.0 [facility] TexasLymphocytes (%) (Auto)2018-10-02 04:58:00 * Test Item Value Reference Range Interpretation Comments Lymphocytes (%) (Auto) (test code = 736-9) 37.2 18.0-39.1 [facility] TexasMonocytes (%) (Auto)2018-10-02 04:58:00* Test Item Value Reference Range Interpretation Comments Monocytes (%) (Auto) (test code = 5905-5) 5.8 4.4-11.3 [facility] TexasEosinophils (%) (Auto)2018-10-02 04:58:00 * Test Item Value Reference Range Interpretation Comments Eosinophils (%) (Auto) (test code = 713-8) 3.7 0.0-6.0 [facility] TexasBasophils (%) (Auto)2018-10-02 04:58:00* Test Item Value Reference Range Interpretation Comments Basophils (%) (Auto) (test code = 706-2) 0.9 0.0-1.0 [facility] TexasIM GRANULOCYTES %2018-10-02 04:58:00* Test Item Value Reference Range Interpretation Comments IM GRANULOCYTES % (test code = IM GRANULOCYTES %) 0.5 0.0- 1.0 [facility] TexasNeutrophils # (Auto)2018-10-02 04:58:00* Test Item Value Reference Range Interpretation Comments Neutrophils # (Auto) (test code = 751-8) 5.7 2.1-6.9 [facility] TexasLymphocytes # (Auto)2018-10-02 04:58:00* Test Item Value Reference Range Interpretation Comments Lymphocytes # (Auto) (test code = 76265-9) 4.1 1.0-3.2 H [facility] TexasMonocytes # (Auto)2018-10-02 04:58:00* Test Item Value Reference Range Interpretation Comments Monocytes # (Auto) (test code = 742-7) 0.6 0.2-0.8 [facility] TexasEosinophils # (Auto)2018-10-02 04:58:00* Test Item Value Reference Range Interpretation Comments Eosinophils # (Auto) (test code = 711-2) 0.4 0.0-0.4 [facility] TexasBasophils # (Auto)2018-10-02 04:58:00* Test Item Value Reference Range Interpretation Comments Basophils # (Auto) (test code = 704-7) 0.1 0.0-0.1 [facility] TexasAbsolute Immature Granulocyte (auto 2018-10-02 04:58:00* Test Item Value Reference Range Interpretation Comments Absolute Immature Granulocyte (auto (jake t code = Absolute Immature Granulocyte (auto) 0.06 0-0.1 [facility] TexasWhite Blood Zokno7182-20-37 04:58:00* Test Item Value Reference Range Interpretation Comments White Blood Count (test code = 6690-2) 11.01 4.8-10.8 H [facility] TexasRed Blood Zmeon0625-59-05 04:58:00* Test Item Value Reference Range Interpretation Comments Red Blood Count (test code = 789-8) 4.63 3.6-5.1 [facility] TexasHemoglobin2019-04-11 04:58:00* Test Item Value Reference Range Interpretation Comments Hemoglobin (test code = 63969-9) 12.2 12.0-16.0 [facility] TexasHematocrit2019-04-11 04:58:00* Test Item Value Reference Range Interpretation Comments Hematocrit (test code = 4544-3) 38.7 34.2-44.1 [facility] TexasMean Corpuscular Vuuehu6531-40-73 04:58:00* Test Item Value Reference Range Interpretation Comments Mean Corpuscular Volume (test code = 787-2) 83.6 81-99 [facility] TexasMean Corpuscular Hqxlmholwi4159-00-25 04:58:00* Test Item Value Reference Range Interpretation Comments Mean Corpuscular Hemoglobin (test code = 785-6) 26.3 28-32 [facility]an Corpuscular Hemoglobin Concent 2018-10-02 04:58:00* Test Item Value Reference Range Interpretation Comments Mean Corpuscular Hemoglobin Concent (test code = 786-4) 31.5 31-35 [facility] TexasRed Cell Distribution Lzgid4237-07-46 04:58:00* Test Item Value Reference Range Interpretation Comments Red Cell Distribution Width (test code = 98922-1) 14.8 11.7 -14.4 H [facility] TexasPlatelet Orssb8586-93-03 04:58:00* Test Item Value Reference Range Interpretation Comments Platelet Count (test code = 777-3) 394 140-360 H [facility] TexasNeutrophils (%) (Auto)2018-10-02 04:58:00 * Test Item Value Reference Range Interpretation Comments Neutrophils (%) (Auto) (test code = 93702-2) 51.9 38.7-80.0 [facility] TexasLymphocytes (%) (Auto)2018-10-02 04:58:00 * Test Item Value Reference Range Interpretation Comments Lymphocytes (%) (Auto) (test code = 736-9) 37.2 18.0-39.1 [facility] TexasMonocytes (%) (Auto)2018-10-02 04:58:00* Test Item Value Reference Range Interpretation Comments Monocytes (%) (Auto) (test code = 5905-5) 5.8 4.4-11.3 [facility] TexasEosinophils (%) (Auto)2018-10-02 04:58:00 * Test Item Value Reference Range Interpretation Comments Eosinophils (%) (Auto) (test code = 713-8) 3.7 0.0-6.0 [facility] TexasBasophils (%) (Auto)2018-10-02 04:58:00* Test Item Value Reference Range Interpretation Comments Basophils (%) (Auto) (test code = 706-2) 0.9 0.0-1.0 [facility] TexasIM GRANULOCYTES %2018-10-02 04:58:00* Test Item Value Reference Range Interpretation Comments IM GRANULOCYTES % (test code = IM GRANULOCYTES %) 0.5 0.0- 1.0 [facility] TexasNeutrophils # (Auto)2018-10-02 04:58:00* Test Item Value Reference Range Interpretation Comments Neutrophils # (Auto) (test code = 751-8) 5.7 2.1-6.9 [facility] TexasLymphocytes # (Auto)2018-10-02 04:58:00* Test Item Value Reference Range Interpretation Comments Lymphocytes # (Auto) (test code = 41883-9) 4.1 1.0-3.2 H [facility] TexasMonocytes # (Auto)2018-10-02 04:58:00* Test Item Value Reference Range Interpretation Comments Monocytes # (Auto) (test code = 742-7) 0.6 0.2-0.8 [facility] TexasEosinophils # (Auto)2018-10-02 04:58:00* Test Item Value Reference Range Interpretation Comments Eosinophils # (Auto) (test code = 711-2) 0.4 0.0-0.4 [facility] TexasBasophils # (Auto)2018-10-02 04:58:00* Test Item Value Reference Range Interpretation Comments Basophils # (Auto) (test code = 704-7) 0.1 0.0-0.1 [facility] TexasAbsolute Immature Granulocyte (auto 2018-10-02 04:58:00* Test Item Value Reference Range Interpretation Comments Absolute Immature Granulocyte (auto (jake t code = Absolute Immature Granulocyte (auto) 0.06 0-0.1 [facility] TexasCreatine Kinase OB8473-73-66 16:45:00* Test Item Value Reference Range Interpretation Comments Creatine Kinase MB (test code = 40249-8) 1.30 0-5.0 [place] [id number] 16:45:00* Test Item Value Reference Range Interpretation Comments Troponin I (test code = GLK9574) 0.021 0-0.300 [facility] TexasCreatine Kinase XY4703-45-16 16:45:00* Test Item Value Reference Range Interpretation Comments Creatine Kinase MB (test code = 10208-3) 1.30 0-5.0 [place] [id number] 16:45:00* Test Item Value Reference Range Interpretation Comments Troponin I (test code = OTX1433) 0.021 0-0.300 [facility] TexasCreatine Kinase YX8836-77-37 16:45:00* Test Item Value Reference Range Interpretation Comments Creatine Kinase MB (test code = 49233-7) 1.30 0-5.0 [place] 02545019-04-10 16:45:00* Test Item Value Reference Range Interpretation Comments Troponin I (test code = PRZ5651) 0.021 0-0.300 [facility] TexasCreatine Ztrwoz1460-10-48 16:39:00* Test Item Value Reference Range Interpretation Comments Creatine Kinase (test code = 2157-6) 113 29-168 [facility] TexasCreatine Pirger8195-37-47 16:39:00* Test Item Value Reference Range Interpretation Comments Creatine Kinase (test code = 2157-6) 113 29-168 [facility] TexasCreatine Drccdf0924-27-44 16:39:00* Test Item Value Reference Range Interpretation Comments Creatine Kinase (test code = 2157-6) 113 29-168 [facility] TexasMRI SPINE CERVICAL NC4027-08-50 14:58:00 [facility] [address] [place] [address] Patient Name: DEO ESCUDERO MR #: [id number] : 1955 Age/Sex: 63/F Req #: [id number] Adm Physician: ZAINA GORDON MD Ordered by: ZAINA GORDON MD Report #: [id number] Location: [facility] Room/Bed: [place] [address] Procedure: [id number] MR I/MRI SPINE CERVICAL WO Exam Date: Exam Time: REPORT STATUS: Signed History: Comparison studies: None Technique: Sagittal T1, T2 and IR, axial T2 and axial gradient echo Intravenous contrast: None Findings: [...] 3:05 PM Dictated By: BASIM VIRK MD 1500 Transcribed By : SCAR on 10/01/18 1506 COPY TO: ZAINA GORDON MD MRI BRAIN [id number] 14:40:00 [place] [address] Patient Name: DEO ESCUDERO MR #: [id number] : 1955 Age/Sex: 63/F Req #: [id number] Adm Physician: ZAINA GORDON MD Ordered by: HOLA MUNOZ M.D. Report #: [id number] Location: [facility] Room/Bed: [place] [address] Procedure: [id number] MRI/MRI BRAIN WO Exam [...] 2:57 PM Dictated By: BASIM VIRK MD 56 Transcribed By: SCAR on 10/01/181456 COPY TO: HOLA MUNOZ MD RENAL RETROPERITONEAL COMP 2018-10-01 09:25:00 [place] [address] Patient Name: DEO ESCUDERO MR #: [id number] : 1955 Age/Sex: 63/F Req #: [id number] Adm Physician: ZAINA GORDON MD Ordered by: ZAINA GORDON MD Report #: [id number] Location: [facility] Room/Bed: [place] [address] Procedure: [id number] US /US RENAL RETROPERITONEAL COMP Exam Date: [...] on 10/01/18925 COPY TO: ZAINA GORDON MD Total Jmivcvskx0151-54-71 09:15:00* Test Item Value Reference Range Interpretation Comments Total Bilirubin (test code = 1975-2) 0.2 0.2-1.2 [facility] TexasAspartate Amino Transf (AST/SGOT) 2018-10-01 09:15:00* Test Item Value Reference Range Interpretation Comments Aspartate Amino Transf (AST/SGOT) (test code = Aspartate Amino Transf (AST/SGOT)) 11 5-34 [facility] TexasAlanine Aminotransferase (ALT/SGPT) 2018-10-01 09:15:00* Test Item Value Reference Range Interpretation Comments Alanine Aminotransferase (ALT/SGPT) (test code = 1742-6) 6 0-55 [facility] TexasTotal Wohtvqr7142-53-04 09:15:00* Test Item Value Reference Range Interpretation Comments Total Protein (test code = 2885-2) 5.2 6.5-8.1 L [facility] TexasAlbumin2019-04-10 09:15:00* Test Item Value Reference Range Interpretation Comments Albumin (test code = 1751-7) 1.8 3.5-5.0 L [facility] TexasGlobulin2019-04-10 09:15:00* Test Item Value Reference Range Interpretation Comments Globulin (test code = 90773-8) 3.4 2.3-3.5 [facility] TexasAlbumin/Globulin Mlbfc2894-86-59 09:15:00 * Test Item Value Reference Range Interpretation Comments Albumin/Globulin Ratio (test code = 1759-0) 0.5 0.8-2.0 L [facility] TexasAlkaline Kodvgergtej7724-97-56 09:15:00* Test Item Value Reference Range Interpretation Comments Alkaline Phosphatase (test code = 6768-6) 76 40-150 [facility] TexasTotal Iiwgosdpp7145-23-92 09:15:00* Test Item Value Reference Range Interpretation Comments Total Bilirubin (test code = 1975-2) 0.2 0.2-1.2 [facility] TexasAspartate Amino Transf (AST/SGOT) 2018-10-01 09:15:00* Test Item Value Reference Range Interpretation Comments Aspartate Amino Transf (AST/SGOT) (test code = Aspartate Amino Transf (AST/SGOT)) 11 5-34 [facility] TexasAlanine Aminotransferase (ALT/SGPT) 2018-10-01 09:15:00* Test Item Value Reference Range Interpretation Comments Alanine Aminotransferase (ALT/SGPT) (test code = 1742-6) 6 0-55 [facility] Iumcllc2352-83-82 09:15:00* Test Item Value Reference Range Interpretation Comments Total Protein (test code = 2885-2) 5.2 6.5-8.1 L [facility] TexasAlbumin2019-04-10 09:15:00* Test Item Value Reference Range Interpretation Comments Albumin (test code = 1751-7) 1.8 3.5-5.0 L [facility] TexasGlobulin2019-04-10 09:15:00* Test Item Value Reference Range Interpretation Comments Globulin (test code = 49813-5) 3.4 2.3-3.5 [facility] TexasAlbumin/Globulin Nhjrz2246-47-41 09:15:00 * Test Item Value Reference Range Interpretation Comments Albumin/Globulin Ratio (test code = 1759-0) 0.5 0.8-2.0 L [facility] TexasAlkaline Jbxhnvxwggf9984-20-54 09:15:00* Test Item Value Reference Range Interpretation Comments Alkaline Phosphatase (test code = 6768-6) 76 40-150 [facility] TexasTotal Hdmafqldj2534-63-06 09:15:00* Test Item Value Reference Range Interpretation Comments Total Bilirubin (test code = 1975-2) 0.2 0.2-1.2 [facility] TexasAspartate Amino Transf (AST/SGOT) 2018-10-01 09:15:00* Test Item Value Reference Range Interpretation Comments Aspartate Amino Transf (AST/SGOT) (test code = Aspartate Amino Transf (AST/SGOT)) 11 5-34 [facility] TexasAlanine Aminotransferase (ALT/SGPT) 2018-10-01 09:15:00* Test Item Value Reference Range Interpretation Comments Alanine Aminotransferase (ALT/SGPT) (test code = 1742-6) 6 0-55 [facility] TexasTotal Gvkfhee5128-65-69 09:15:00* Test Item Value Reference Range Interpretation Comments Total Protein (test code = 2885-2) 5.2 6.5-8.1 L [facility] TexasAlbumin2019-04-10 09:15:00* Test Item Value Reference Range Interpretation Comments Albumin (test code = 1751-7) 1.8 3.5-5.0 L [facility] TexasGlobulin2019-04-10 09:15:00* Test Item Value Reference Range Interpretation Comments Globulin (test code = 43937-8) 3.4 2.3-3.5 [facility] TexasAlbumin/Globulin Rdkhs7744-85-41 09:15:00 * Test Item Value Reference Range Interpretation Comments Albumin/Globulin Ratio (test code = 1759-0) 0.5 0.8-2.0 L [facility] TexasAlkaline Jzrxvnirvdk3054-68-27 09:15:00* Test Item Value Reference Range Interpretation Comments Alkaline Phosphatase (test code = 6768-6) 76 40-150 [facility] of TexasB-Type Natriuretic Qbnkaok9227-56-02 14:41:00* Test Item Value Reference Range Interpretation Comments B-Type Natriuretic Peptide (test code = 15116-9) 47.7 0-100 [facility] TexasThyroid Stimulating Hormone (TSH) 2018-09-30 14:41:00* Test Item Value Reference Range Interpretation Comments Thyroid Stimulating Hormone (TSH) (test code = 88423-7) 3.276 0.350-4.940 [facility] TexasB-Type Natriuretic Exhpceb1590-09-86 14:41:00* Test Item Value Reference Range Interpretation Comments B-Type Natriuretic Peptide (test code = 93021-7) 47.7 0-100 [facility] TexasThyroid Stimulating Hormone (TSH) 2018-09-30 14:41:00* Test Item Value Reference Range Interpretation Comments Thyroid Stimulating Hormone (TSH) (test code = 92337-8) 3.276 0.350-4.940 [facility] TexasB-Type Natriuretic Xwjkrgg6078-48-11 14:41:00* Test Item Value Reference Range Interpretation Comments B-Type Natriuretic Peptide (test code = 64593-0) 47.7 0-100 [facility] TexasThyroid Stimulating Hormone (TSH) 2018-09-30 14:41:00* Test Item Value Reference Range Interpretation Comments Thyroid Stimulating Hormone (TSH) (test code = 27843-8) 3.276 0.350-4.940 [facility] TexasB-Type Natriuretic Lwskmcr3537-20-53 14:41:00* Test Item Value Reference Range Interpretation Comments B-Type Natriuretic Peptide (test code = 12588-0) 47.7 0-100 [facility] TexasThyroid Stimulating Hormone (TSH) 2018-09-30 14:41:00* Test Item Value Reference Range Interpretation Comments Thyroid Stimulating Hormone (TSH) (test code = 32653-0) 3.276 0.350-4.940 [facility] TexasB-Type Natriuretic Xqefkha2373-71-92 14:41:00* Test Item Value Reference Range Interpretation Comments B-Type Natriuretic Peptide (test code = 25712-6) 47.7 0-100 [facility] TexasThyroid Stimulating Hormone (TSH) 2018-09-30 14:41:00* Test Item Value Reference Range Interpretation Comments Thyroid Stimulating Hormone (TSH) (test code = 98314-7) 3.276 0.350-4.940 [facility] TexasB-Type Natriuretic Okwbgjf9516-72-46 14:41:00* Test Item Value Reference Range Interpretation Comments B-Type Natriuretic Peptide (test code = 27738-4) 47.7 0-100 [facility] TexasThyroid Stimulating Hormone (TSH) 2018-09-30 14:41:00* Test Item Value Reference Range Interpretation Comments Thyroid Stimulating Hormone (TSH) (test code = 35670-7) 3.276 0.350-4.940 [facility] TexasActivated Partial Thromboplast Time 2018-09-30 14:08:00* Test Item Value Reference Range Interpretation Comments Activated Partial Thromboplast Time (test code = 91628-9) 29.7 23.8-35.5 [facility] TexasActivated Partial Thromboplast Time 2018-09-30 14:08:00* Test Item Value Reference Range Interpretation Comments Activated Partial Thromboplast Time (test code = 47634-8) 29.7 23.8-35.5 [facility] TexasActivated Partial Thromboplast Time 2018-09-30 14:08:00* Test Item Value Reference Range Interpretation Comments Activated Partial Thromboplast Time (test code = 40797-6) 29.7 23.8-35.5 [facility] TexasProthrombin Edmb8438-44-95 14:07:00* Test Item Value Reference Range Interpretation Comments Prothrombin Time (test code = 5902-2) 12.0 11.9-14.5 [facility] TexasProthromb Time International Ratio 2018-09-30 14:07:00* Test Item Value Reference Range Interpretation Comments Prothromb Time International Ratio (test code = 6301-6) 0.84 Oral Anticoagulant Therapy INR Values:1. Low Intensity Therapy 1.5 - 2.02 . Moderate Intensity Therapy 2.0 - 3.03. High Intensity Therapy(1) 2.5 - 3. 54. High Intensity Therapy(2) 3.0 - 4.05. Panic Value INR > 5.0 [facility] TexasProthrombin Lehc8733-13-23 14:07:00* Test Item Value Reference Range Interpretation Comments Prothrombin Time (test code = 5902-2) 12.0 11.9-14.5 [facility] TexasProthromb Time International Ratio 2018-09-30 14:07:00* Test Item Value Reference Range Interpretation Comments Prothromb Time International Ratio (test code = 6301-6) 0.84 Oral Anticoagulant Therapy INR Values:1. Low Intensity Therapy 1.5 - 2.02 . Moderate Intensity Therapy 2.0 - 3.03. High Intensity Therapy(1) 2.5 - 3. 54. High Intensity Therapy(2) 3.0 - 4.05. Panic Value INR > 5.0 [facility] TexasProthrombin Mscb6783-74-78 14:07:00* Test Item Value Reference Range Interpretation Comments Prothrombin Time (test code = 5902-2) 12.0 11.9-14.5 [facility] TexasProthromb Time International Ratio 2018-09-30 14:07:00* Test Item Value Reference Range Interpretation Comments Prothromb Time International Ratio (test code = 6301-6) 0.84 Oral Anticoagulant Therapy INR Values:1. Low Intensity Therapy 1.5 - 2.02 . Moderate Intensity Therapy 2.0 - 3.03. High Intensity Therapy(1) 2.5 - 3. 54. High Intensity Therapy(2) 3.0 - 4.05. Panic Value INR > 5.0 [facility] TexasCHEST SINGLE (NOT PORTABLE)2018-09-30 13:20:00 [facility] [place] [address] Patient Name: DEO ESCUDERO MR #: [id number] : 1955 Age/Sex: 63/F Req #: [id number] Adm Physician: Ordered by: EHSAN RIVERA [employer] Report #: [id number] Location: ER Room/Bed: Procedure: [id number] DX/ CHEST SINGLE (NOT PORTABLE) Exam Date: [...] SCAR on 1322 COPY TO: EHSAN RIVERA [employer] WORKER CT BRAIN VT3225-32-10 12:43:00 [place] [address] Patient Name: DEO ESCUDERO MR #: [id number] : 1955 Age/Sex: 63/F Req #: [id number] Adm Physician: Ordered by: EHSAN RIVERA [employer] Report #: [id number] Location: ER Room/Bed: Procedure: [id number] CT/ CT BRAIN WO Exam Date: 09/30/18 Exam Time: 1220 REPORT STATUS: Signed CT BRAIN WO HISTORY: Left-sided numbness COMPARISON: MRI of the brain 07/14/2018, head CT 07/13/2018 TECHNIQUE: Noncontrast axial scans were obtained from skull base to the vertex. Coronal and sagittal reconstructions obtained from the axial data. One or more of the following dose reduction techniques were used: Automated exposure control, adjustment of the mA and/or kV according to pat ient size, and/or utilization of iterative reconstruction technique. DISC USSION: Scalp/Skull: Unremarkable. Brain sulci: Appropriate for patient's age. Ventricles: Normal in size and configuration. No hydrocephalus. Extra- axial spaces: No masses or fluid collections. Carotid [...] on 09/30/18 1252 COPY TO: EHSAN RIVERA [employer] Bedside Glucose 2018-07-18 08:13:00* Test Item Value Reference Range Interpretation Comments Bedside Glucose (test code = 36711-0) 113 70-120 Meter ID: [id number] [facility]wayBedside Glucose 2018-07-18 08:13:00* Test Item Value Reference Range Interpretation Comments Bedside Glucose (test code = 04571-8) 113 70-120 Meter ID: [id number] [facility] 2018-07-15 06:34:00* Test Item Value Reference Range Interpretation Comments Magnesium Level (test code = 58007-9) 2.3 1.3-2.1 [facility]2019-01-22 06:34:00* Test Item Value Reference Range Interpretation Comments Magnesium Level (test code = 16329-6) 2.3 1.3-2.1 [facility]2019-01-22 06:34:00* Test Item Value Reference Range Interpretation Comments Magnesium Level (test code = 50155-2) 2.3 1.3-2.1 [facility]2019-01-22 06:34:00* Test Item Value Reference Range Interpretation Comments Magnesium Level (test code = 48830-7) 2.3 1.3-2.1 [facility]2019-01-22 06:34:00* Test Item Value Reference Range Interpretation Comments Magnesium Level (test code = 83296-4) 2.3 1.3-2.1 [facility]2019-01-22 06:34:00* Test Item Value Reference Range Interpretation Comments Magnesium Level (test code = 64099-9) 2.3 1.3-2.1 [facility] TexasMagnesium Xvbzl3658-31-44 06:34:00* Test Item Value Reference Range Interpretation Comments Magnesium Level (test code = 80631-5) 2.3 1.3-2.1 [facility] Wcgyz4639-90-34 05:06:00* Test Item Value Reference Range Interpretation Comments Sodium Level (test code = 2951-2) 136 136-145 [facility] TexasPotassium Frzit3146-70-75 05:06:00* Test Item Value Reference Range Interpretation Comments Potassium Level (test code = 2823-3) 3.5 3.5-5.1 [facility] TexasChloride Nsrnd2891-63-53 05:06:00* Test Item Value Reference Range Interpretation Comments Chloride Level (test code = 2075-0) 112 98-107 [facility] TexasCarbon Dioxide Pfigs7456-28-21 05:06:00* Test Item Value Reference Range Interpretation Comments Carbon Dioxide Level (test code = 2028-9) 18 22-29 L [facility] TexasAnion Yid4954-60-61 05:06:00* Test Item Value Reference Range Interpretation Comments Anion Gap (test code = 65133-0) 9.5 8-16 [facility] TexasBlood Urea Pcrmbkci4252-40-42 05:06:00* Test Item Value Reference Range Interpretation Comments Blood Urea Nitrogen (test code = 3094-0) 17 7-26 [facility] TexasCreatinine2019-01-22 05:06:00* Test Item Value Reference Range Interpretation Comments Creatinine (test code = 2160-0) 1.26 0.57-1.11 [facility] TexasBUN/Creatinine Dmowx0988-92-70 05:06:00* Test Item Value Reference Range Interpretation Comments BUN/Creatinine Ratio (test code = 3097-3) 13 6-25 [facility] TexasEstimat Glomerular Filtration Rate 2018-07-15 05:06:00* Test Item Value Reference Range Interpretation Comments Estimat Glomerular Filtration Rate (test code = 733174932) 43 >60 L Ranges were taken from the National Kidney Disease Education Program and the [facility] Foundation literature.Reference ranges:60 or greater: Yciuma93-62 ( for 3 consecutive months): Chronic kidney disease 15 or less: Kidney failureDell [facility] at [facility] of TexasGlucose Grobn5195-01-26 05:06:00* Test Item Value Reference Range Interpretation Comments Glucose Level (test code = MFJ0119) 94 74-118 [facility] TexasCalcium Cdnww7063-42-19 05:06:00* Test Item Value Reference Range Interpretation Comments Calcium Level (test code = 39953-0) 7.7 8.4-10.2 [facility] Hoxxt4586-08-50 05:06:00* Test Item Value Reference Range Interpretation Comments Sodium Level (test code = 2951-2) 136 136-145 [facility] TexasPotassium Wbpsn4956-20-89 05:06:00* Test Item Value Reference Range Interpretation Comments Potassium Level (test code = 2823-3) 3.5 3.5-5.1 [facility] TexasChloride Tvtbl9739-77-45 05:06:00* Test Item Value Reference Range Interpretation Comments Chloride Level (test code = 2075-0) 112 98-107 [facility] TexasCarbon Dioxide Dnzjl0293-03-24 05:06:00* Test Item Value Reference Range Interpretation Comments Carbon Dioxide Level (test code = 2028-9) 18 22-29 L [facility] TexasAnion Osx2660-69-57 05:06:00* Test Item Value Reference Range Interpretation Comments Anion Gap (test code = 41502-9) 9.5 8-16 [facility] TexasBlood Urea Mpbsxnkr9687-13-51 05:06:00* Test Item Value Reference Range Interpretation Comments Blood Urea Nitrogen (test code = 3094-0) 17 7-26 [facility] TexasCreatinine2019-01-22 05:06:00* Test Item Value Reference Range Interpretation Comments Creatinine (test code = 2160-0) 1.26 0.57-1.11 [facility] TexasBUN/Creatinine Qivyi9694-86-93 05:06:00* Test Item Value Reference Range Interpretation Comments BUN/Creatinine Ratio (test code = 3097-3) 13 6-25 [facility] TexasEstimat Glomerular Filtration Rate 2018-07-15 05:06:00* Test Item Value Reference Range Interpretation Comments Estimat Glomerular Filtration Rate (test code = 516641652) 43 >60 L Ranges were taken from the National Kidney Disease Education Program and the [facility] Kidney Foundation literature.Reference ranges:60 or greater: Rambsg60-86 ( for 3 consecutive months): Chronic kidney disease 15 or less: Kidney failureDell [facility] Center at The University of TexasGlucose Xathv6178-26-42 05:06:00* Test Item Value Reference Range Interpretation Comments Glucose Level (test code = YEL2929) 94 74-118 [facility] TexasCalcium Xxcpx9060-06-06 05:06:00* Test Item Value Reference Range Interpretation Comments Calcium Level (test code = 65137-2) 7.7 8.4-10.2 L [facility] TexasWhite Blood Hdctr2121-88-58 04:48:00* Test Item Value Reference Range Interpretation Comments White Blood Count (test code = 6690-2) 11.64 4.8-10.8 [facility] TexasRed Blood Ynfyq0040-80-47 04:48:00* Test Item Value Reference Range Interpretation Comments Red Blood Count (test code = 789-8) 5.11 3.6-5.1 [facility] TexasHemoglobin2019-01-22 04:48:00* Test Item Value Reference Range Interpretation Comments Hemoglobin (test code = 11509-3) 13.6 12.0-16.0 [facility] TexasHematocrit2019-01-22 04:48:00* Test Item Value Reference Range Interpretation Comments Hematocrit (test code = 4544-3) 41.2 34.2-44.1 [facility] of TexasMean Corpuscular Dkzhgv7665-75-19 04:48:00* Test Item Value Reference Range Interpretation Comments Mean Corpuscular Volume (test code = 787-2) 80.6 81-99 L [facility] TexasMean Corpuscular Nthyppqejt7867-37-33 04:48:00* Test Item Value Reference Range Interpretation Comments Mean Corpuscular Hemoglobin (test code = 785-6) 26.6 28-32 L [facility] TexasMean Corpuscular Hemoglobin Concent 2018-07-15 04:48:00* Test Item Value Reference Range Interpretation Comments Mean Corpuscular Hemoglobin Concent (test code = 786-4) 33.0 31-35 [facility] TexasRed Cell Distribution Gkdsh3301-35-24 04:48:00* Test Item Value Reference Range Interpretation Comments Red Cell Distribution Width (test code = 18166-8) 13.7 11.7 -14.4 [facility] TexasPlatelet Yjche9074-63-04 04:48:00* Test Item Value Reference Range Interpretation Comments Platelet Count (test code = 777-3) 395 140-360 [facility] TexasNeutrophils (%) (Auto)2018-07-15 04:48:00 * Test Item Value Reference Range Interpretation Comments Neutrophils (%) (Auto) (test code = 99028-8) 60.0 38.7-80.0 [facility] TexasLymphocytes (%) (Auto)2018-07-15 04:48:00 * Test Item Value Reference Range Interpretation Comments Lymphocytes (%) (Auto) (test code = 736-9) 28.4 18.0-39.1 [facility] TexasMonocytes (%) (Auto)2018-07-15 04:48:00* Test Item Value Reference Range Interpretation Comments Monocytes (%) (Auto) (test code = 5905-5) 4.9 4.4-11.3 [facility] TexasEosinophils (%) (Auto)2018-07-15 04:48:00 * Test Item Value Reference Range Interpretation Comments Eosinophils (%) (Auto) (test code = 713-8) 5.2 0.0-6.0 [facility] TexasBasophils (%) (Auto)2018-07-15 04:48:00* Test Item Value Reference Range Interpretation Comments Basophils (%) (Auto) (test code = 706-2) 1.1 0.0-1.0 H [facility] of TexasIM GRANULOCYTES %2018-07-15 04:48:00* Test Item Value Reference Range Interpretation Comments IM GRANULOCYTES % (test code = IM GRANULOCYTES %) 0.4 0.0- 1.0 [facility] TexasNeutrophils # (Auto)2018-07-15 04:48:00* Test Item Value Reference Range Interpretation Comments Neutrophils # (Auto) (test code = 751-8) 7.0 2.1-6.9 [facility] TexasLymphocytes # (Auto)2018-07-15 04:48:00* Test Item Value Reference Range Interpretation Comments Lymphocytes # (Auto) (test code = 28999-9) 3.3 1.0-3.2 [facility] TexasMonocytes # (Auto)2018-07-15 04:48:00* Test Item Value Reference Range Interpretation Comments Monocytes # (Auto) (test code = 742-7) 0.6 0.2-0.8 [facility] TexasEosinophils # (Auto)2018-07-15 04:48:00* Test Item Value Reference Range Interpretation Comments Eosinophils # (Auto) (test code = 711-2) 0.6 0.0-0.4 [facility] TexasBasophils # (Auto)2018-07-15 04:48:00* Test Item Value Reference Range Interpretation Comments Basophils # (Auto) (test code = 704-7) 0.1 0.0-0.1 [facility] of TexasAbsolute Immature Granulocyte (auto 2018-07-15 04:48:00* Test Item Value Reference Range Interpretation Comments Absolute Immature Granulocyte (auto (jake t code = Absolute Immature Granulocyte (auto) 0.05 0-0.1 [facility] TexasWhite Blood Epeiu9942-14-29 04:48:00* Test Item Value Reference Range Interpretation Comments White Blood Count (test code = 6690-2) 11.64 4.8-10.8 [facility] TexasRed Blood Bdubp9627-02-76 04:48:00* Test Item Value Reference Range Interpretation Comments Red Blood Count (test code = 789-8) 5.11 3.6-5.1 [facility] TexasHemoglobin2019-01-22 04:48:00* Test Item Value Reference Range Interpretation Comments Hemoglobin (test code = 09286-1) 13.6 12.0-16.0 [facility] TexasHematocrit2019-01-22 04:48:00* Test Item Value Reference Range Interpretation Comments Hematocrit (test code = 4544-3) 41.2 34.2-44.1 [facility] TexasMean Corpuscular Ndajev3174-15-64 04:48:00* Test Item Value Reference Range Interpretation Comments Mean Corpuscular Volume (test code = 787-2) 80.6 81-99 L [facility] TexasMean Corpuscular Jmofmhuaix2294-36-13 04:48:00* Test Item Value Reference Range Interpretation Comments Mean Corpuscular Hemoglobin (test code = 785-6) 26.6 28-32 L [facility] TexasMean Corpuscular Hemoglobin Concent 2018-07-15 04:48:00* Test Item Value Reference Range Interpretation Comments Mean Corpuscular Hemoglobin Concent (test code = 786-4) 33.0 31-35 [facility] TexasRed Cell Distribution Bvgsk2247-48-55 04:48:00* Test Item Value Reference Range Interpretation Comments Red Cell Distribution Width (test code = 24050-0) 13.7 11.7 -14.4 [facility] TexasPlatelet Cujsd5418-87-01 04:48:00* Test Item Value Reference Range Interpretation Comments Platelet Count (test code = 777-3) 395 140-360 [facility] TexasNeutrophils (%) (Auto)2018-07-15 04:48:00 * Test Item Value Reference Range Interpretation Comments Neutrophils (%) (Auto) (test code = 22623-7) 60.0 38.7-80.0 [facility] TexasLymphocytes (%) (Auto)2018-07-15 04:48:00 * Test Item Value Reference Range Interpretation Comments Lymphocytes (%) (Auto) (test code = 736-9) 28.4 18.0-39.1 [facility] TexasMonocytes (%) (Auto)2018-07-15 04:48:00* Test Item Value Reference Range Interpretation Comments Monocytes (%) (Auto) (test code = 5905-5) 4.9 4.4-11.3 [facility] TexasEosinophils (%) (Auto)2018-07-15 04:48:00 * Test Item Value Reference Range Interpretation Comments Eosinophils (%) (Auto) (test code = 713-8) 5.2 0.0-6.0 [facility] TexasBasophils (%) (Auto)2018-07-15 04:48:00* Test Item Value Reference Range Interpretation Comments Basophils (%) (Auto) (test code = 706-2) 1.1 0.0-1.0 H [facility] of TexasIM GRANULOCYTES %2018-07-15 04:48:00* Test Item Value Reference Range Interpretation Comments IM GRANULOCYTES % (test code = IM GRANULOCYTES %) 0.4 0.0- 1.0 [facility] TexasNeutrophils # (Auto)2018-07-15 04:48:00* Test Item Value Reference Range Interpretation Comments Neutrophils # (Auto) (test code = 751-8) 7.0 2.1-6.9 [facility] TexasLymphocytes # (Auto)2018-07-15 04:48:00* Test Item Value Reference Range Interpretation Comments Lymphocytes # (Auto) (test code = 81060-0) 3.3 1.0-3.2 H [facility] TexasMonocytes # (Auto)2018-07-15 04:48:00* Test Item Value Reference Range Interpretation Comments Monocytes # (Auto) (test code = 742-7) 0.6 0.2-0.8 [facility] TexasEosinophils # (Auto)2018-07-15 04:48:00* Test Item Value Reference Range Interpretation Comments Eosinophils # (Auto) (test code = 711-2) 0.6 0.0-0.4 [facility] TexasBasophils # (Auto)2018-07-15 04:48:00* Test Item Value Reference Range Interpretation Comments Basophils # (Auto) (test code = 704-7) 0.1 0.0-0.1 [facility] TexasAbsolute Immature Granulocyte (auto 2018-07-15 04:48:00* Test Item Value Reference Range Interpretation Comments Absolute Immature Granulocyte (auto (jake t code = Absolute Immature Granulocyte (auto) 0.05 0-0.1 [facility] of TexasMODIFIED BA. ALWWOWC2252-49-82 14:34:00 [facility] [address] [place] [address] Patient Name: DEO ESCUDERO MR #: [id number] : 1955 Age/Sex: 63/F Req #: [id number] Adm Physician: ZAINA GORDON MD Ordered by: ZAINA GORDON MD Report #: [id number] Location: ICU Room/Bed: ICU [facility] Procedure: [id number] DX /MODIFIED BA. SWALLOW Exam Date: 07/14/18 Exam Time: 1200 REPORT STATUS: Signed EXAM: Modified barium swallow with Speech Pathologist INDICATION: Reported coughing with po intake [id number] COMPARISON: None [...] y Signed By: RONALD HILLS MD on 07/14/181434 Transcribed By: SCAR on 07/14 COPY TO: ZAINA GORDON MD MRA HEAD [id number] 13:17:00 [place] [address] Patient Name: DEO ESCUDERO MR #: [id number] : 1955 Age/Sex: 63/F Req #: [id number] Adm Physician: ZAINA GORDON MD Ordered by: ZAINA GORDON MD Report #: [id number] Location: ICU Room/Bed: ICU [facility] Procedure: [id number] MR I/MRA HEAD WO Exam Date: Exam Time: REPORT STATUS: Signed MRA NECK WO, MRA HEAD WO HISTORY: Weakness, right-sided facial droop COMPARISON: Concurrent MRI of the brain TECHNIQUE: Axial 2D cervical, and axial 3D intracranial enmo-vz-dgqqbg MRA images were obtained without contrast. Maximum intensity pr ojection and coronal/sagittal reformatted images were created. If present, an y cervical carotid stenosis will be measured as a percentage relative to the n ative artery distal to the stenosis. Intracranial MRA source axial images and MIPS were reviewed on [employer] system. FINDINGS: CERVICAL MRA: Motion and noise [...] gned By: SPENCER SANCHES MD on 07/14/18 132 Transcribed By: SCAR on 132 COPY TO: ZAINA GORDON MD MRA NECK [id number] 13:17:00 [place] [address] Patient Name: DEO ESCUDERO MR #: [id number] : 1955 Age/Sex: 63/F Req #: [id number] Adm Physician: ZAINA GORDON MD Ordered by: ZAINA GORDON MD Report #: [id number] Location: ICU Room/Bed: [place] [address] Procedure: [id number] MR I/MRA NECK WO Exam Date: Exam Time: REPORT STATUS: Signed MRA NECK WO, MRA HEAD WO HISTORY: Weakness, right-sided facial droop COMPARISON: Concurrent MRI of the brain TECHNIQUE: Axial 2D cervical, and axial 3D intracranial wvct-xy-casiza MRA images were obtained without contrast. Maximum intensity pr ojection and coronal/sagittal reformatted images were created. If present, an y cervical carotid stenosis will be measured as a percentage relative to the n ative artery distal to the stenosis. Intracranial MRA source axial images and MIPS were reviewed on [employer] system. FINDINGS: CERVICAL MRA: Motion and noise [...] COPY TO: ZAINA GORDON MD MRI BRAIN [id number] 13:07:00 [place] [address] Patient Name: DEO ESCUDERO MR #: [id number] : 1955 Age/Sex: 63/F Req #: [id number] Adm Physician: ZAINA GORDON MD Ordered by: HOLA MUNOZ M.D. Report #: [id number] Location: ICU Room/Bed: ICU 190 Procedure: [id number] MRI/MRI BRAIN WO Exam [...] striatocapsular region. 2. 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 3. 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 Signed by: Dr. Spencer Sanches M.D. on 07/14/2018 1:17 PM Dictated By: SPENCER SANCHES MD 1317 Transcribed By: SCAR on 07/14/18 1317 COPY TO: HOLA ROSAS MD Thyroid Stimulating Hormone (TSH)2018-07-14 05:43:00 * Test Item Value Reference Range Interpretation Comments Thyroid Stimulating Hormone (TSH) (test code = 79873-4) 3.263 0.350-4.940 [facility] TexasThyroid Stimulating Hormone (TSH) 2018-07-14 05:43:00* Test Item Value Reference Range Interpretation Comments Thyroid Stimulating Hormone (TSH) (test code = 48663-2) 3.263 0.350-4.940 [facility] TexasTotal Ghrbllise6856-48-26 05:29:00* Test Item Value Reference Range Interpretation Comments Total Bilirubin (test code = 1975-2) 0.5 0.2-1.2 [facility] of TexasAspartate Amino Transf (AST/SGOT) 2018-07-14 05:29:00* Test Item Value Reference Range Interpretation Comments Aspartate Amino Transf (AST/SGOT) (test code = Aspartate Amino Transf (AST/SGOT)) 10 5-34 [facility] TexasAlanine Aminotransferase (ALT/SGPT) 2018-07-14 05:29:00* Test Item Value Reference Range Interpretation Comments Alanine Aminotransferase (ALT/SGPT) (test code = 1742-6) 8 0-55 [facility] TexasTotal Wqvtakc0820-48-66 05:29:00* Test Item Value Reference Range Interpretation Comments Total Protein (test code = 2885-2) 4.5 6.5-8.1 L [facility] TexasAlbumin2019-01-21 05:29:00* Test Item Value Reference Range Interpretation Comments Albumin (test code = 1751-7) 1.4 3.5-5.0 L [facility] TexasGlobulin2019-01-21 05:29:00* Test Item Value Reference Range Interpretation Comments Globulin (test code = 65863-9) 3.1 2.3-3.5 [facility] TexasAlbumin/Globulin Rxwuf7157-67-85 05:29:00 * Test Item Value Reference Range Interpretation Comments Albumin/Globulin Ratio (test code = 1759-0) 0.5 0.8-2.0 L [facility] TexasAlkaline Xmgcokemrwx8460-01-92 05:29:00* Test Item Value Reference Range Interpretation Comments Alkaline Phosphatase (test code = 6768-6) 55 40-150 [facility] TexasTriglycerides Cyepr5888-59-00 05:29:00* Test Item Value Reference Range Interpretation Comments Triglycerides Level (test code = 2571-8) 257 0-149 H [facility] TexasCholesterol Wyeqs1838-98-15 05:29:00* Test Item Value Reference Range Interpretation Comments Cholesterol Level (test code = 2093-3) 344 0-199 H Less than 200 mg/dL Low Lgig204 - 239 mg/dL Borderline Bkky437 m g/dl and greater High Risk [facility] TexasLDL Vtygjoxrblb9655-91-96 05:29:00* Test Item Value Reference Range Interpretation Comments LDL Cholesterol (test code = 2089-1) 259 60-130 H [facility] of TexasHDL Ojzrcdzplwz2711-35-10 05:29:00* Test Item Value Reference Range Interpretation Comments HDL Cholesterol (test code = 2085-9) 34 40-60 L [facility] TexasCholesterol/HDL Gdcon1215-80-40 05:29:00 * Test Item Value Reference Range Interpretation Comments Cholesterol/HDL Ratio (test code = 9830-1) 10.1 3.0-3.6 H [facility] TexasTotal Fbvgnzhok5178-66-90 05:29:00* Test Item Value Reference Range Interpretation Comments Total Bilirubin (test code = 1975-2) 0.5 0.2-1.2 [facility] of TexasAspartate Amino Transf (AST/SGOT) 2018-07-14 05:29:00* Test Item Value Reference Range Interpretation Comments Aspartate Amino Transf (AST/SGOT) (test code = Aspartate Amino Transf (AST/SGOT)) 10 5-34 [facility] TexasAlanine Aminotransferase (ALT/SGPT) 2018-07-14 05:29:00* Test Item Value Reference Range Interpretation Comments Alanine Aminotransferase (ALT/SGPT) (test code = 1742-6) 8 0-55 [facility] TexasTotal Ohvvfso4636-95-80 05:29:00* Test Item Value Reference Range Interpretation Comments Total Protein (test code = 2885-2) 4.5 6.5-8.1 L [facility] TexasAlbumin2019-01-21 05:29:00* Test Item Value Reference Range Interpretation Comments Albumin (test code = 1751-7) 1.4 3.5-5.0 L [facility] TexasGlobulin2019-01-21 05:29:00* Test Item Value Reference Range Interpretation Comments Globulin (test code = 82220-7) 3.1 2.3-3.5 [facility] TexasAlbumin/Globulin Nwafb0214-60-83 05:29:00 * Test Item Value Reference Range Interpretation Comments Albumin/Globulin Ratio (test code = 1759-0) 0.5 0.8-2.0 L [facility] TexasAlkaline Zdgcpyfidpm8513-83-60 05:29:00* Test Item Value Reference Range Interpretation Comments Alkaline Phosphatase (test code = 6768-6) 55 40-150 [facility] TexasTriglycerides Myaht5968-53-85 05:29:00* Test Item Value Reference Range Interpretation Comments Triglycerides Level (test code = 2571-8) 257 0-149 H [facility] TexasCholesterol Ygwrm7080-09-45 05:29:00* Test Item Value Reference Range Interpretation Comments Cholesterol Level (test code = 2093-3) 344 0-199 H Less than 200 mg/dL Low Eqsx671 - 239 mg/dL Borderline Zcme631 m g/dl and greater High Risk [facility] of TexasLDL Xjjivulifhy4564-48-85 05:29:00* Test Item Value Reference Range Interpretation Comments LDL Cholesterol (test code = 2089-1) 259 60-130 H [facility] TexasHDL Hkgwwetidux9591-55-39 05:29:00* Test Item Value Reference Range Interpretation Comments HDL Cholesterol (test code = 2085-9) 34 40-60 L [facility] TexasCholesterol/HDL Cpzrq7429-38-97 05:29:00 * Test Item Value Reference Range Interpretation Comments Cholesterol/HDL Ratio (test code = 9830-1) 10.1 3.0-3.6 H [facility] TexasTriglycerides Mxnkd9661-67-04 05:29:00* Test Item Value Reference Range Interpretation Comments Triglycerides Level (test code = 2571-8) 257 0-149 H [facility] TexasCholesterol Vlipu0086-24-82 05:29:00* Test Item Value Reference Range Interpretation Comments Cholesterol Level (test code = 2093-3) 344 0-199 H Less than 200 mg/dL Low Gogy148 - 239 mg/dL Borderline Fgdc310 m g/dl and greater High Risk [facility] TexasLDL Kbmwrxosyja7293-13-97 05:29:00* Test Item Value Reference Range Interpretation Comments LDL Cholesterol (test code = 2089-1) 259 60-130 H [facility] Ztscawxigna1432-93-63 05:29:00* Test Item Value Reference Range Interpretation Comments HDL Cholesterol (test code = 2085-9) 34 40-60 L [facility] TexasCholesterol/HDL Msito7312-48-28 05:29:00 * Test Item Value Reference Range Interpretation Comments Cholesterol/HDL Ratio (test code = 9830-1) 10.1 3.0-3.6 H [facility] TexasTriglycerides Yepzj7729-45-27 05:29:00* Test Item Value Reference Range Interpretation Comments Triglycerides Level (test code = 2571-8) 257 0-149 H [facility] Texas[facility]olesterol Xkvjn3601-16-62 05:29:00* Test Item Value Reference Range Interpretation Comments Cholesterol Level (test code = 2093-3) 344 0-199 H Less than 200 mg/dL Low Tyox046 - 239 mg/dL Borderline Pcsg759 m g/dl and greater High Risk [facility] TexasLDL Onpnuchzkoe8205-80-88 05:29:00* Test Item Value Reference Range Interpretation Comments LDL Cholesterol (test code = 2089-1) 259 60-130 H [facility] Pfkrufxwzsv8153-97-31 05:29:00* Test Item Value Reference Range Interpretation Comments HDL Cholesterol (test code = 2085-9) 34 40-60 L [facility] TexasCholesterol/HDL Lfzxv5144-28-55 05:29:00 * Test Item Value Reference Range Interpretation Comments Cholesterol/HDL Ratio (test code = 9830-1) 10.1 3.0-3.6 H [facility] TexasTriglycerides Fcntz9075-53-00 05:29:00* Test Item Value Reference Range Interpretation Comments Triglycerides Level (test code = 2571-8) 257 0-149 H [facility] TexasCholesterol Uomrn2718-83-03 05:29:00* Test Item Value Reference Range Interpretation Comments Cholesterol Level (test code = 2093-3) 344 0-199 H Less than 200 mg/dL Low Bbpi320 - 239 mg/dL Borderline Wlqa699 m g/dl and greater High Risk [facility] TexasLDL Camalbofdzh5443-44-78 05:29:00* Test Item Value Reference Range Interpretation Comments LDL Cholesterol (test code = 2089-1) 259 60-130 H [facility] TexasHDL Ajnftakgvnp2604-53-16 05:29:00* Test Item Value Reference Range Interpretation Comments HDL Cholesterol (test code = 2085-9) 34 40-60 L [facility] TexasCholesterol/HDL Zrxez8035-00-86 05:29:00 * Test Item Value Reference Range Interpretation Comments Cholesterol/HDL Ratio (test code = 9830-1) 10.1 3.0-3.6 H [facility] TexasCT BRAIN FX2544-60-29 17:58:00 [place] [address] Patient Name: DEO ESCUDERO MR #: [id number] : 1955 Age/Sex: 63/F Req #: [id number] Adm Physician: ZAINA GORDON MD Ordered by: HOLA MUNOZ M.D. Report #: [id number] Location: ICU Room/Bed: ICU 190 Procedure: 0120-[address]/CT BRAIN WO Exam [...] M.D. on 07/13/2018 7:51 PM Dictated By: BASIM VIRK MD 1 951 Transcribed By: SCAR on 07/13/18 195 COPY TO: HOLA MUNOZ MD Troponin A2760-29-64 15:22:00* Test Item Value Reference Range Interpretation Comments Troponin I (test code = TTL1170) 0.019 0-0.300 [facility] TexasTroponin J5323-99-42 15:22:00* Test Item Value Reference Range Interpretation Comments Troponin I (test code = ITY0431) 0.019 0-0.300 [facility] TexasCreatine Kinase SA4197-72-96 14:19:00* Test Item Value Reference Range Interpretation Comments Creatine Kinase MB (test code = 11949-1) 1.00 0-5.0 [facility] TexasCreatine Kinase UR2407-09-35 14:19:00* Test Item Value Reference Range Interpretation Comments Creatine Kinase MB (test code = 42143-3) 1.00 0-5.0 [facility] TexasCreatine Yhmekl9812-24-79 14:10:00* Test Item Value Reference Range Interpretation Comments Creatine Kinase (test code = 2157-6) 55 29-168 [facility] TexasCreatine Tyihov4278-36-26 14:10:00* Test Item Value Reference Range Interpretation Comments Creatine Kinase (test code = 2157-6) 55 29-168 [facility] TexasFr Thyroxine Sehsj7899-79-93 08:42:00* Test Item Value Reference Range Interpretation Comments Free Thyroxine Index (test code = 06235-0) 1.9343 1.4-3.8 [facility] TexasThyroxine (T4)2018-07-13 08:42:00* Test Item Value Reference Range Interpretation Comments Thyroxine (T4) (test code = 3026-2) 5.75 4.5-10.9 Our current method for Total T4 is not recommended for use as the only marker fo r evaluating patients for thyroid disorders.[facility] TexasTriiodothyronine (T3) Wswyva1791-88-35 08:42:00* Test Item Value Reference Range Interpretation Comments Triiodothyronine (T3) Uptake (test code = 3050-2) 33.64 22.5 -37.0 [facility] TexasFr Thyroxine Chlqx7948-06-20 08:42:00* Test Item Value Reference Range Interpretation Comments Free Thyroxine Index (test code = 58067-0) 1.9343 1.4-3.8 [facility] TexasThyroxine (T4)2018-07-13 08:42:00* Test Item Value Reference Range Interpretation Comments Thyroxine (T4) (test code = 3026-2) 5.75 4.5-10.9 Our current method for Total T4 is not recommended for use as the only marker fo r evaluating patients for thyroid disorders.[facility] TexasTriiodothyronine (T3) Hzqeux0346-75-56 08:42:00* Test Item Value Reference Range Interpretation Comments Triiodothyronine (T3) Uptake (test code = 3050-2) 33.64 22.5 -37.0 [facility] Thyroxine Uzhif7420-82-09 08:42:00* Test Item Value Reference Range Interpretation Comments Free Thyroxine Index (test code = 79769-7) 1.9343 1.4-3.8 [facility] TexasThyroxine (T4)2018-07-13 08:42:00* Test Item Value Reference Range Interpretation Comments Thyroxine (T4) (test code = 3026-2) 5.75 4.5-10.9 Our current method for Total T4 is not recommended for use as the only marker fo r evaluating patients for thyroid disorders.[facility] TexasTriiodothyronine (T3) Slmgov5656-60-80 08:42:00* Test Item Value Reference Range Interpretation Comments Triiodothyronine (T3) Uptake (test code = 3050-2) 33.64 22.5 -37.0 [facility] Thyroxine Dmezg3711-24-28 08:42:00* Test Item Value Reference Range Interpretation Comments Free Thyroxine Index (test code = 66519-0) 1.9343 1.4-3.8 [facility] TexasThyroxine (T4)2018-07-13 08:42:00* Test Item Value Reference Range Interpretation Comments Thyroxine (T4) (test code = 3026-2) 5.75 4.5-10.9 Our current method for Total T4 is not recommended for use as the only marker fo r evaluating patients for thyroid disorders.[facility] TexasTriiodothyronine (T3) Tpikzo4263-31-88 08:42:00* Test Item Value Reference Range Interpretation Comments Triiodothyronine (T3) Uptake (test code = 3050-2) 33.64 22.5 -37.0 [facility] Thyroxine Ignag8040-27-64 08:42:00* Test Item Value Reference Range Interpretation Comments Free Thyroxine Index (test code = 95963-0) 1.9343 1.4-3.8 [facility] TexasThyroxine (T4)2018-07-13 08:42:00* Test Item Value Reference Range Interpretation Comments Thyroxine (T4) (test code = 3026-2) 5.75 4.5-10.9 Our current method for Total T4 is not recommended for use as the only marker fo r evaluating patients for thyroid disorders.[facility] TexasTriiodothyronine (T3) Yfccnx0325-70-26 08:42:00* Test Item Value Reference Range Interpretation Comments Triiodothyronine (T3) Uptake (test code = 3050-2) 33.64 22.5 -37.0 [facility] Thyroxine Ijmms7596-55-79 08:42:00* Test Item Value Reference Range Interpretation Comments Free Thyroxine Index (test code = 41956-5) 1.9343 1.4-3.8 [facility] TexasThyroxine (T4)2018-07-13 08:42:00* Test Item Value Reference Range Interpretation Comments Thyroxine (T4) (test code = 3026-2) 5.75 4.5-10.9 Our current method for Total T4 is not recommended for use as the only marker fo r evaluating patients for thyroid disorders.[facility] TexasTriiodothyronine (T3) Dbdikd5842-72-52 08:42:00* Test Item Value Reference Range Interpretation Comments Triiodothyronine (T3) Uptake (test code = 3050-2) 33.64 22.5 -37.0 [facility] Thyroxine Bzhdg8666-14-59 08:42:00* Test Item Value Reference Range Interpretation Comments Free Thyroxine Index (test code = 83707-0) 1.9343 1.4-3.8 [facility] TexasThyroxine (T4)2018-07-13 08:42:00* Test Item Value Reference Range Interpretation Comments Thyroxine (T4) (test code = 3026-2) 5.75 4.5-10.9 Our current method for Total T4 is not recommended for use as the only marker fo r evaluating patients for thyroid disorders.[facility] TexasTriiodothyronine (T3) Gkvpmo3529-62-39 08:42:00* Test Item Value Reference Range Interpretation Comments Triiodothyronine (T3) Uptake (test code = 3050-2) 33.64 22.5 -37.0 [facility] TexasHemoglobin A1c Wuinrpy4403-37-82 08:18:00 * Test Item Value Reference Range Interpretation Comments Hemoglobin A1c Percent (test code = Hemoglobin A1c Percent) 8.8 4.0-7.0 H [facility] TexasHemoglobin A1c Azbdwfn4292-65-42 08:18:00 * Test Item Value Reference Range Interpretation Comments Hemoglobin A1c Percent (test code = Hemoglobin A1c Percent) 8.8 4.0-7.0 H [facility] TexasHemoglobin A1c Wfxnpnn2725-16-23 08:18:00 * Test Item Value Reference Range Interpretation Comments Hemoglobin A1c Percent (test code = Hemoglobin A1c Percent) 8.8 4.0-7.0 H [facility] TexasHemoglobin A1c Tmlyvbg8937-94-73 08:18:00 * Test Item Value Reference Range Interpretation Comments Hemoglobin A1c Percent (test code = Hemoglobin A1c Percent) 8.8 4.0-7.0 H [facility] TexasHemoglobin A1c Ankamlx8563-14-43 08:18:00 * Test Item Value Reference Range Interpretation Comments Hemoglobin A1c Percent (test code = Hemoglobin A1c Percent) 8.8 4.0-7.0 H [facility] TexasProthrombin Tgxi9523-15-27 04:59:00* Test Item Value Reference Range Interpretation Comments Prothrombin Time (test code = 5902-2) 13.5 11.9-14.5 [facility] TexasProthromb Time International Ratio 2018-07-13 04:59:00* Test Item Value Reference Range Interpretation Comments Prothromb Time International Ratio (test code = 6301-6) 0.95 Oral Anticoagulant Therapy INR Values:1. Low Intensity Therapy 1.5 - 2.02 . Moderate Intensity Therapy 2.0 - 3.03. High Intensity Therapy(1) 2.5 - 3. 54. High Intensity Therapy(2) 3.0 - 4.05. Panic Value INR > 5.0 [facility] TexasActivated Partial Thromboplast Time 2018-07-13 04:59:00* Test Item Value Reference Range Interpretation Comments Activated Partial Thromboplast Time (test code = 64632-8) 29.4 23.8-35.5 [facility] TexasProthrombin Sgin8321-97-37 04:59:00* Test Item Value Reference Range Interpretation Comments Prothrombin Time (test code = 5902-2) 13.5 11.9-14.5 [facility] TexasProthromb Time International Ratio 2018-07-13 04:59:00* Test Item Value Reference Range Interpretation Comments Prothromb Time International Ratio (test code = 6301-6) 0.95 Oral Anticoagulant Therapy INR Values:1. Low Intensity Therapy 1.5 - 2.02 . Moderate Intensity Therapy 2.0 - 3.03. High Intensity Therapy(1) 2.5 - 3. 54. High Intensity Therapy(2) 3.0 - 4.05. Panic Value INR > 5.0 [facility] TexasActivated Partial Thromboplast Time 2018-07-13 04:59:00* Test Item Value Reference Range Interpretation Comments Activated Partial Thromboplast Time (test code = 80682-6) 29.4 23.8-35.5 [facility] TexasB-Type Natriuretic Miyuctt7931-17-55 16:24:00* Test Item Value Reference Range Interpretation Comments B-Type Natriuretic Peptide (test code = 31748-6) 192.7 0-100 H [facility] TexasB-Type Natriuretic Qxvimcm0977-79-05 16:24:00* Test Item Value Reference Range Interpretation Comments B-Type Natriuretic Peptide (test code = 04938-8) 192.7 0-100 H [facility] TexasCHEST SINGLE (PORTABLE)2018-07-12 16:12:00 [place] [address] Patient Name: DEO ESCUDERO MR #: [id number] : 1955 Age/Sex: 63/F Req #: [id number] Adm Physician: Ordered by: EHSAN RIVERA [employer] WORKER Report #: [id number] Location: ER Room/Bed: Procedure: [id number] DX/ CHEST SINGLE (PORTABLE) Exam Date: 07/12/18 [...] No acute radiographic abno rmality. Signed by: Leila ChavezOKylee, M.M.M. on 07/12/2018 4:12 PM Dictated By: KALLI LYNN DO 11 Transcribed By: SCAR on 07/12/18 161 COPY TO: EHSAN RIVERA [employer] WORKER CT BRAIN [id number] 15:25:00 [place] [address] Patient Name: DEO ESCUDERO MR #: [id number] : 1955 Age/Sex: 63/F Req #: [id number] Adm Physician: Ordered by: JANIE RIVER MD Report #: [id number] Location: ER Room/Bed: Procedure: [id number] CT/ CT BRAIN WO Exam Date: 07/12/18 [...] 1529 COPY TO: FRED RIVER MD CHEM HXKZD9105-49-22 00:50:0099[facility]annCHEM PANEL 2014-03-06 00:50:000.9[facility]annCHEM LSOCI9385-25-26 00:50:0013.0[facility]annCHEM DERVW1943-50-22 00:50:0018[facility]annCHEM GTWMW1328-45-19 00:50:0028[facility]annCHEM OLSIW8803-40-48 00:50:0018[facility]annCHEM CAPDB1325-21-13 00:50:41301Wxmxabpk HermannCHEM NBNUX9439-19-93 00:50:004.0 [facility]annCHE[facility] XWKVE4887-52-02 00:50:41876Hfcehtkj HermannCHEM PANEL 2014-03-06 00:50:000.6[facility]annCHEM ATQLJ8302-30-76 00:50:88369Ammqgfag HermannCHEM TZNMN4039-91-33 00:50:22583Vakqdbiz HermannCHEM YLQYB7315-42-06 00:50:0011[facility]annCHEM HDZBP4530-42-09 00:50:003.6[facility]annCHEM PYJLO3857-78-15 00:50:008.0[facility]annCHEM LDNLJ8727-54-07 00:50:009.1 [facility]annCHE[facility] RKPRF8185-02-72 00:50:0025[facility]annCHEM PANEL 2014-03-06 00:50:000.8[facility]annCHEM FWHPS3319-44-85 00:50:004.4[facility] BtcckyzQBLPESPMLM6899-46-97 00:50:0060.9[facility] PdhdszgJBSFTFXXGW8405-45-24 00:50:001.1[facility] MuzhaycSJDVAJXJNG7230-72-57 00:50:001.2[facility] WWESVBULCL4456-45-44 00:50:004.4[facility] RkhlbyfCCQTSYJOSI9895-48-64 00:50:00 32.4[facility] EnivnflGWOOWILPLM8552-09-04 00:50:000.1[facility]annHEMATOLOGY 2014-03-06 00:50:000.5[facility] KgufxzuPJLYMYKKDD0685-56-03 00:50:003.5[facility] DcoypkhRXBGBOMEAY5497-08-28 00:50:006.5[facility] RgvqwbxNYQKHUDBBZ0937-43-46 00:50:000.1[facility] MieblrqNPONBKEERI4587-55-96 00:50:0013.0[facility] SOPTIEQPAN3471-71-94 00:50:0033.4[facility] PwpacldTDYEASSTCB5759-79-27 00:50:00* Test Item Value Reference Range Interpretation Comments MCH (test code = MCH) 28.3 pg 27.0-31.0 [facility] IktghyqZHAKHVFAJL0508-16-62 00:50:0084.7[facility]annHEMATOLOGY 2014-03-06 00:50:008.7[facility] MertywrHZRUDCWSDI8973-42-84 00:50:62703Pbaftfzi ZixtikhWGUCGNRZWR1911-11-09 00:50:0010.7[facility] ElkqsptMLNSCOCGSZ1042-41-85 00:50:0049.5[facility] PkaxzjuDQMEEBELHO5585-27-58 00:50:0016.5[facility] CFXANAMQNF8182-36-62 00:50:005.84[facility]annURINE AND XGUID9052-96-64 05:30:00Small *ABN*(03/05/14 12:30 AM)[facility] AWWKO8401-85-25 05:30:00Negative (03/05/14 12:30 AM)[facility] EICMB9274-80-68 05:30:00Marked *ABN*(03/05/14 12:30 AM)[facility] VRXTP0198-29-12 05:30:001.032[facility]UR[facility] AND AXFAN6365-77-90 05:30:00Yellow *NA*(03/05/14 12:30 AM)[facility] ALOWF4139-29-68 05:30:05908 [facility] NKZVY0968-90-90 05:30:0015[facility]UR[facility] AND ORAQL1474-66-29 05:30:00Large *ABN*(03/05/14 12:30 AM)[facility] KZUJH5388-79-76 05:30:00Negative *NA*(03/05/14 12:30 AM)[facility] AND EHPSC7975-94-84 05:30:005.0[facility] HermannBEDSIDE GLUCOSE KFWDNFD9276-96-76 18:22:96214Tjobfzas HermannBEDSIDE GLUCOSE RMCPXGA0661-75-24 17:03:27332Niquaixm HermannBEDSIDE GLUCOSE KZSIYNA6021-60-64 12:20:74527Fjhztnrp HermannBEDSIDE GLUCOSE SUJQOXN5615-70-00 03:03:21956Zpqgqwiu HermannBEDSIDE GLUCOSE TESTING 2011-07-31 22:04:79632Szdeydrr OornfueFPNBCDKHE4335-42-10 09:32:00<0.02[facility] NikxantZPEWUCHKE9767-53-18 09:32:0035[facility] RbwhykuZZXNWXCMT8910-69-31 04:01:0035[facility] UnjavxfCVDKOZYJZ0507-70-24 04:01:00<0.02[facility] ZLMMRBRTR8773-18-92 21:00:00<1.1[facility] JzpdtebIYNSISAZP1304-19-39 21:00:0045 [facility] NupkspaSRBUHWYKK3452-01-25 21:00:00<0.5[facility] HermannCHEMISTRY 2011-07-27 21:00:00<0.02[facility] CaqbpxkFMNNVCYFZ1078-93-68 21:00:34193Xwqxyska EksnsitPAYTTSVCU7733-50-34 21:00:0021[facility] EibxizuGKBVLOAPF6325-62-80 21:00:11027Vypsptvs XmzyclbBIYABKIQH3665-75-01 21:00:003.9[facility] [place] OWPBZSGKA8981-48-38 21:00:000.8[facility] SnfwswyEWOOIXGPQ4341-68-71 21:00:93289 [facility] HchmsikBOUKVXEJA7999-47-83 21:00:0023[facility] HermannCHEMISTRY 2011-07-27 21:00:000.4[facility] BdjxeoxGRJFUNSEK9703-34-80 21:00:0099[facility] HgthxytZLJIDWQBF2495-70-49 21:00:006[facility] KmjsgmcACODJYRBE9249-68-02 21:00:00 22[facility] GtvhxujTEYYBIMDR8556-78-37 21:00:008.0[facility] HermannCHEMISTRY 2011-07-27 21:00:003.8[facility] FjhczimGUEMTVEBM1306-86-84 21:00:008.9[facility] SxctzzlGJYVKUUKA9498-00-12 21:00:000.9[facility] YucjnyvAVUAHMXUO3843-15-06 21:00:0029[facility] XhkmjnaHZEUXTDQA5061-86-29 21:00:004.2[facility] KLQRFZXDX0736-09-15 21:00:0014.9[facility] KjszgynRYVKRIOEGL0568-01-62 21:00:00 73.9[facility] QavoqfkXQFYYWHGRV0607-66-91 21:00:000.6[facility]annHEMATOLOGY 2011-07-27 21:00:0020.8[facility] HvazfyzBKSCQUGQHL2293-57-64 21:00:007.5[facility] EopvhihDUHRBETPME4438-63-14 21:00:000.3[facility] OqyembwDNOAUIWNKD8251-54-90 21:00:004.4[facility] PgzfukrMGHJHIDBYQ4032-87-26 21:00:002.1[facility] [place] XLSGSZJJLT9409-53-99 21:00:000.0[facility] OdufjjiYCQDFBUCFS0199-52-40 21:00:000.4 [facility] WnyglveVQCGNWHSHC2608-93-60 21:00:000.1[facility]annHEMATOLOGY 2011-07-27 21:00:007.9[facility] KcypmdcMTYXGCGRHS6329-17-40 21:00:0035.4[facility] JhnoultPKRSZYBABQ6633-07-19 21:00:00* Test Item Value Reference Range Interpretation Comments MCH (test code = MCH) 29.2 pg 27.0-31.0 N [facility] FpczigpCXWTMKGXOC1987-19-31 21:00:0013.2[facility]annHEMATOLOGY 2011-07-27 21:00:17975Kofapqzc IxhbtbrBZOOTSUWXA5673-10-78 21:00:004.86[facility] ShexiuiFHKZGLPSXA5382-08-09 21:00:0040.0[facility] NvyyfncPFLTUNOXXN0380-67-30 21:00:0082.4[facility] XtnyaapRHNEKCBWNP8393-38-82 21:00:0014.2[facility] BPZZTXEADD1084-72-44 21:00:0010.2[facility] FaramndFSWVGIMTMQ5927-17-48 21:00:00 0.95[facility] PrtdovsVBREIVPVGP4303-54-39 21:00:00* Test Item Value Reference Range Interpretation Comments PT (test code = PT) 12.7 s 12.0-14.7 N [facility] CampusInnwsneYFVQAWEYHX3894-21-85 21:00:00* Test Item Value Reference Range Interpretation Comments PTT (test code = PTT) 25.2 s 22.9-35.8 N [facility]
[2020-04-08 17:25] LABS: BILIRUBIN,URINE NEGATIVE (NEGATIVE); CLARITY,URINE CLOUDY (CLEAR); COLOR,URINE YELLOW (YELLOW); KETONES,URINE TRACE (NEGATIVE); LEUKOCYTE ESTERASE ,URINE SMALL (NEGATIVE); NITRITE,URINE NEGATIVE (NEGATIVE); PROTEIN,URINE DIPSTICK >=300 (NEGATIVE); URINE UROBILINOGEN 0.2 mg/dL (0.2 - 1)
[2020-04-08 17:37] LABS: BACTERIA,URINE MANY /HPF; EPITHELIAL CELLS,URINE RARE /LPF
--- NOTE | 2020-04-08 17:57 | NUR ---
Dr. Schaeffer made aware that patient missed dialysis today
[2020-04-08] MEDS ORDERED: CEFTRIAXONE SOD 1 GM/NS 50 ML 50 ML IV ONE (18:00)
--- NOTE | 2020-04-08 18:27 | NUR ---
as per Dr. Henriquez, patient will be dialyzed first thing in the morning tomorrow, MD made aware of patient's current status including labs and O2 saturation
--- OUTSIDE RECORDS SUMMARY | 2020-04-08 18:29 | XMS REPORT | Clinical Summary ---
Author Author ROCK [facility] Address Unknown Phone Unavailable Care Team Providers Care Mercury Recoverer Name Role Phone Pcp, No PCP Unavailable [...] 65+ YRS (1 2018 of 1 - [id number]) Medicare IPPE (WELCOME TO 06/24/2019 MEDICARE) [...] ms QTC Calculatio n(Bazett) 495 ms P Lawton 62 degrees R Lawton 45 degrees T Lawton -5 degrees Normal sinus rhythm Normal ECG No previous ECGs available ECG 12-LEAD Routine 03/03/2020 2:59 PM CDT BASIC METABOLIC PANEL (7) Routine 03/03/2020 2:58 PM CDT HEMOGLOBIN Routine 03/03/2020 2:58 PM CDT SARS-COV2/RT-PCR ([facility] & Routine 03/03/2020 Estefany trujillo for viral REF LABS) 2:58 PM CDT disease after 04/08/2019 Results * TRANSFUSION SERVICE REPORT - SCAN (03/05/2020 6:04 PM CDT) Narrative Performed At This result has an attachment that is n ot available. * POC-Potassium (03/04/2020 1:02 PM CDT) Only the most recent of 2 results within the time period is included. [facility] POC-Potassium 3.2 (L)Comment: : TESTED AT 3.6 - 5.5 meq/L [facility] [address] [place] [address] [id number]: Childcare Worker/Oil Gauger ID [facility] = [id number] for BAGUNDOL ARNOLD Specimen Blood Performing Organization Address [facility] one Number [address] 7[address] [phone] [place] [address] * POC-Glucose meter (03/04/2020 6:52 AM CDT) [facility] POC-Glucose 91Comment: : TESTED AT [facility] 70 - 110 mg/dL C [facility] Meter [address] [place] [address] [id number]: Childcare Worker/Oil Gauger ID [facility] = [id number] for ARNOLD MARTINEZ Specimen Blood Performing Organization Address [facility] one Number [address] 0 [phone] [address] * Type and screen, automated (03/04/2020 6:43 AM CDT) Pathologist [facility] ABO/RH O POSITIVE [facility] ([facility]) [facility] Ab Scrn NEGATIVE [facility] Specimen Blood Performing Organization Address City/[facility] Ph one Number [address] [address] [phone] [facility] * CBC with platelet count + automated diff (03/04/2020 6:43 AM CDT) Pathologist [facility] WBC 10.3 3.5 - 10.5 K/L [facility] RBC 3.99 3.93 - 5.22 M/L [facility] Hemoglobin 11.0 (L) 11.2 - 15.7 GM/DL [facility] Hematocrit 34.8 34.1 - 44.9 % [facility] MCV 87.2 79.4 - 94.8 fL [facility] MCH 27.6 25.6 - 32.2 pg [facility] MCHC 31.6 (L) 32.2 - 35.5 GM/DL [facility] RDW 17.0 (H) 11.7 - 14.4 % [facility] Platelets 312 150 - 450 K/CU MM [facility] MPV 9.8 9.4 - 12.3 fL [facility] nRBC 0 0 - 0 /100 WBC [facility] % Neutros 73 % [facility] % Lymphs 17 % [facility] % Monos 5 % [facility] % Eos 4 % [facility] % Baso 1 % [facility] # Neutros 7.52 (H) 1.56 - 6.13 K/L [facility] # Lymphs 1.71 1.18 - 3.74 K/L [facility] # Monos 0.56 (H) 0.24 - 0.36 K/L [facility] # Eos 0.37 (H) 0.04 - 0.36 K/L [facility] # Baso 0.11 (H) 0.01 - 0.08 K/L [facility] Immature 1 0 - 1 % [facility] Specimen Blood Performing Organization Address City/State/Zipcode Ph one Number [facility] [address] [place], [place] [address] [facility] * aPTT (03/04/2020 6:43 AM CDT) PTT 31.4 22.5 - 36.0 seconds [facility] Specimen Blood Performing Organization Address [facility] Ph one Number [address] [facility] * Prothrombin time/INR (03/04/2020 6:43 AM CDT) Protime 12.9 11.9 - 14.2 seconds [facility] INR 1.00 <=5.90 [facility] Specimen Blood Narrative Performed At Effective 11/19/2018: PT Reference Range Change [facility] New: 11.9-14.2 Previous: 11.7-14.7 [facility] MEDICAL JOSE TER RECOMMENDED COUMADIN/WARFARIN INR THERA PY RANGES STANDARD DOSE: 2.0-3.0 Includes: PROP HYLAXIS for venous thrombosis, systemic embolization; TREATMENT for venous thro mbosis and/or pulmonary embolus. HIGH RISK: Target INR is 2.5-3.5 for pa tients wiht mechanical heart valves. Performing Organization Address [facility] one Number [address] [facility] * Phosphorus (03/04/2020 6:43 AM CDT) Phosphorus 2.4 2.3 - 4.7 mg/dL [facility] Specimen Blood Narrative Performed At Childcare Worker ID - [facility] Performing Organization Address City/[facility] Ph one Number [address] [facility] * Magnesium (03/04/2020 6:43 AM CDT) Magnesium 1.8 1.6 - 2.6 mg/dL [facility] Specimen Blood Narrative Performed At Childcare Worker ID - [facility] Performing Organization Address City/[facility] Ph one Number [facility] [address] [place], [place] [address] [facility] * Basic Metabolic Panel (03/04/2020 6:43 AM CDT) Only the most recent of 2 results within the time period is included. Sodium 136 136 - 145 meq/L [facility] Potassium 2.7 (L) 3.5 - 5.1 meq/L [facility] Chloride 100 98 - 107 meq/L [facility] CO2 28 22 - 29 meq/L [facility] BUN 17 7 - 21 mg/dL [facility] Creatinine 2.18 (H) 0.57 - 1.25 mg/dL [facility] Glucose 93 70 - 105 mg/dL [facility] Calcium 8.7 8.4 - 10.2 mg/dL [facility] EGFR 22Comment: ESTIMATED GFR IS mL/min/1.73 sq m [facility] NOT ACCURATE CREATININE [facility] CLEARANCE IN PREDICTING [facility] CENTER GLOMERULAR FILTRATION RATE. ESTIMATED GFR IS NOT APPLICABLE FOR DIALYSIS PATIENTS. Specimen Blood Narrative Performed At Childcare Worker ID - [facility] Performing Organization Address City/[facility] Ph one Rashida [address] [facility] * ECG 12 lead (03/03/2020 2:59 PM CDT) Specimen Narrative Performed At Ventricular Rate 87 BPM GE MUSE Atrial Rate 87 BPM P-R Interval 194 ms QRS Duration 82 ms Q-T Interval 412 ms QTC Calculation(Bazett) 495 ms P Lawton 62 degrees R Lawton 45 degrees T Lawton -5 degrees Normal sinus rhythm Normal ECG No previous ECGs available Confirmed by MD STEFANIA, EVITA Chappell ([id number]) on 03/05/2020 8:24:45 AM Procedure Note Interface, External Ris In - 03/05/2020 8:24 AM CDT Ventricular Rate 87 BPM Atrial Rate 87 BPM P-R Interval 194 ms QRS Duration 82 ms Q-T Interval 412 ms QTC Calculation(Bazett) 495 ms P Lawton 62 degrees R Lawton 45 degrees T Lawton -5 degrees Normal sinus rhythm Normal ECG No previous ECGs available Confirmed by MD STEFANIA, EVITA Chappell ([id number]) on 03/05/2020 8:24:45 AM Performing Organization Address City/State/Zipcode Ph one Number GE MUSE * SARS-CoV2/RT-PCR ([facility] & Ref Labs) (03/03/2020 2:58 PM CDT) SARS-COV2/RT-PC Negative Not Detected, [facility] R Negative, See [facility] external report for [facility] CENTER linked test SARS-COV-2 [facility] IRVIN [facility] PERFORMING LAB [facility] Specimen Other - Nasopharyngeal wall structure (body structure) Narrative Performed At Negative result for this test determine s that SARS-CoV-2 RNA was not present in [facility] the specimen above the Limit of Detecti on (LOD). However, Negative results do [facility] not preclude SARS-CoV-2 infection and s hould [...] the Act. Fact Sheet for Healthcare Providers: https://www.InfoRe[employer]/sites/default/files/product/documents/Fact_Sheet_HC_Provi isby_Rzsd_TCHM-ByN-7.pdf Fact Sheet for Healthcare Patients: https://www.[employer]/sites/default/files/product/documents/Fact_Sheet_Patients _Eapm_VRLW-KhD-9.pdf Performing Laboratory: [address] [place] [address] Performing Organization Address City/[facility] Ph one Number [address] [facility] [place] * Hemoglobin (03/03/2020 2:58 PM CDT) Hemoglobin 11.5 11.2 - 15.7 GM/DL [facility] Specimen Blood - Entire left upper arm (body structure) Narrative Performed At Childcare Worker ID - [id number] [facility] Performing Organization Address City/[facility] Ph one Number [address] MEDICAL CENTER after 04/08/2019 Insurance Type Payer Benefit Subscriber ID Effective Phone Address Plan / Dates Group Medicaid Contracted MEDICAID - MEDICAID MGD [facility] [id number] 19 20-P CARE COMM STAR resent PLAN [facility] [id number] 2019-P MEDICARE MGD CARE MEDICARE resent HMO CDC REVIEW CDC REVIEW [id number] 2020- [address] [place] [address] [address] [facility] (Home) [place] GARCIA [address] Advance Directives For more information, please contact: [phone] Patient Paperback Machine Operator Explanation Type Date Recorded [email or web address] Power of Perforator Typist 03/04/2020 12:00 AM
--- OUTSIDE RECORDS SUMMARY | 2020-04-08 18:30 | XMS REPORT | Continuity of Care Document ---
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 [employer] Information Exchange Unavailable Un available Problems Problem Status Onset Date Classification Date Reported Comments Source MAMMO --- BONE DENSITY Active 09/25/2018 [facility] M25.512 Active 09/22/2018 [facility] Discharge Diagnosis: Abdominal pain 03/06/2014 03/08/2014 [facility] Discharge Diagnosis: Acute lower urinary tract infection 03/06/2014 03/08/2014 [facility] ABD PAIN Active 03/05/2014 [facility] 719.4 - PAIN IN JOINT Active 07/24/2013 [facility] SORE THROAT Active 04/01/2013 [facility] CHEST PAIN Active 07/27/2011 [facility] HTN - Hypertension Active 01/22/2001 Problem 08/03/2011 [facility] Cerebrovascular disease (disorder) Active [facility] Finding of body mass index (finding) Active Problem [facility] Hypertensive disorder, systemic arterial (disorder) Active Problem 07/12/2019 [facility], [facility] Left hemiparesis (disorder) Ac tive Problem [facility] Mixed hyperlipidemia (disorder) Active Problem [...] [facility] Chest pain Active Problem 04/04/2013 [facility] DM - Diabetes mellitus Active Problem 04/04/2013 [facility] Chest pain (finding) Active Problem 03/08/2014 ASHLEY Degroot Guerline mendez Diabetes mellitus (disorder) A ctive Problem ASHLEY Degroot Guerline mendez Hyperlipidemia (disorder) Acti ve Problem ASHLEY Degroot, [facility] HTN - Hypertension Active Problem 04/04/2013 [facility] Hyperlipidemia Active Problem 04/04/2013 [facility] CHEST PAIN NOS Active [facility] Medications Medication Details Route Status Patient Instructions Ordering Provider Order Date Source Metoprolol Tartrate 25 mg oral tablet = 0.5 tab, PO, BID, # 90 tab, Pharmacy: [facility] #[id number] Active 05/25/2019 [facility] Furosemide 20 MG Oral Tablet = 1 tab, PO, Daily, # 90 tab, STOP LISINOPRIL HCTZ, Pharmacy: [facility] #[id number] Active 04/08/2019 [facility] atorvastatin 80 mg oral tablet 80 mg = 1 tab, PO, Bedtime, # 90 tab, 1 Refill(s), Pharmacy: [facility] #[id number] Active 01/29/2019 [facility] amLODIPine 5 mg oral tablet = 1 tab, PO, BID, # 180 tab, Refill(s) 1, Pharmacy: [facility] #[id number] Active 01/28/2019 [facility] amLODIPine 5 mg oral tablet 5 mg = 1 tab, PO, BID, # 60 tab, 1 Refill(s), Pharmacy: [facility] #[id number] Inactive 01/28/2019 [facility] NIFEdipine 30 mg oral tablet, extended release 30 mg = 1 tab, PO, Daily, # 90 tab, 1 Refill(s), Pharmacy: [facility] #[id number] No Longer Active 01/28/2019 [facility] pantoprazole 40 mg oral enteric coated tablet See Instructions, 1 tab PO a day only 2 times a week, # 90 tab, 0 Refill(s), called to pharmacy Active 01/21/2019 [facility] Ergocalciferol 08130 UNT Oral Capsule 50,000 IntlUnit = 1 cap, PO, qWeek, # 12 cap, 2 Refill(s), [id number] Active 01/19/2019 [facility] Alendronic acid 70 MG Oral Tablet 70 mg = 1 tab, PO, Q7D, with 6 to 8 ounces plain water, at least 30 minutes before first food, beverage, or medication of the day, # 12 tab, 3 Refill(s), [id number] No Longer Active 01/19/2019 [facility] atorvastatin 80 mg oral tablet 80 mg = 1 tab, PO, Daily, # 90 tab, 1 Refill(s), [id number] Active 01/19/2019 [facility] lisinopril 30 mg oral tablet 3 0 mg = 1 tab, PO, Daily, # 90 tab, 1 Refill(s), [id number], stop lisinopril hctz Active 01/19/2019 [facility] Furosemide 20 MG Oral Tablet 2 0 mg = 1 tab, PO, Daily, # 90 tab, 0 Refill(s), [id number], stop lisinopril hctz Active 01/19/2019 [facility] atorvastatin 80 mg oral tablet 80 mg = 1 tab, PO, Daily, # 90 tab, 3 Refill(s) Inactive 01/19/2019 [facility] Ergocalciferol 86696 UNT Oral Capsule 50,000 IntlUnit = 1 cap, PO, qWeek, # 12 cap, 2 Refill(s), [id number] Active 10/21/2018 [facility] citalopram 10 mg oral tablet 1 0 mg = 1 tab, PO, Daily, # 30 tab, 1 Refill(s), [facility] [id number] Active 10/20/2018 [facility] Alendronic acid 70 [...] DM eval date 10/20/18, 3 Refill(s), Pharmacy: [facility] [id number] Active 10/20/2018 [facility] atorvastatin 40 mg oral tablet 40 mg = 1 tab, PO, Bedtime, # 90 tab, 1 Refill(s), Pharmacy: [facility] [id number] Active 10/20/2018 [facility] Hydrochlorothiazide 12.5 MG / Lisinopril 20 MG Oral Tablet 1 tab, PO, Daily, # 90 tab, 1 Refill(s), Pharmacy: [facility] [id number], stop losartan hctz and amlodipine. Active 10/20/2018 [facility] atorvastatin 40 mg oral tablet 40 mg = 1 tab, PO, Bedtime, # 90 tab, 1 Refill(s), Pharmacy: [facility] [id number] Active 10/09/2018 [facility] Trazodone Hydrochloride 50 MG Oral Tablet 50 mg = 1 tab, PO, Bedtime, after meals for insomnia, # 30 tab, 1 Refill(s), Pharmacy: [facility] [id number] Active 09/19/2018 [facility] gabapentin 300 MG Oral Capsule 300 mg = 1 cap, PO, BID, # 60 cap, 1 Refill(s), Pharmacy: [facility] [id number] Active 09/19/2018 [facility] metoprolol tartrate 25 mg oral tablet 12.5 mg = 0.5 tab, PO, BID, 0 Refill(s) Active 09/19/2018 [facility] Hydrochlorothiazide 12.5 MG / Losartan P otassium 50 MG Oral Tablet 1 tab, PO, Daily, # 90 tab, 0 Refill(s) Active 09/19/2018 [facility] amLODIPine 10 mg oral tablet 1 0 mg = 1 tab, PO, Daily, # 90 tab, 1 Refill(s) Active 09/19/2018 [facility] Aspirin Enteric Coated 325 mg oral delay ed release tablet 325 mg = 1 tab, PO, Daily, 0 Refill(s) Active 09/19/2018 [facility] Glipizide 5 MG Oral Tablet 5 [...] # 12 tab, 0 Refill(s) Active 03/06/2014 [facility] ciprofloxacin 500 mg oral tablet 500 mg = 1 tab, PO, Q12H, # 20 tab, 0 Refill(s) Active 03/06/2014 [facility] Zofran 4 mg, Route: IVP, Drug form: INJ, ONCE, Dosing Weight 78.636, kg, Priority: STAT, Start date: 03/05/14 22:16:00, Stop date: 03/05/14 22:16:00 Inactive 03/06/2014 [facility] Morphine 4 mg, Route: IVP, Reyes g form: INJ, ONCE, Dosing Weight 78.636, kg, Priority: STAT, Start date: 03/05/14 22:15:00, Stop date: 03/05/14 22:15:00 Inactive 03/06/2014 [facility] lisinopril 10 mg oral tablet 1 0 mg, 1 tab, PO, Daily, 30 tab, Substitution Allowed, TAB Active Sam dan 04/01/2013 [facility] metFORmin 500 mg oral tablet 5 00 mg, 1 tab, PO, BID, 30 tab, Substitution Allowed Active Luis Carlos 04/01/2013 [facility] Insulin regular 8 unit, Route: SUB-Q, ONCE, Dosing Weight 79.091, kg, Start date: 04/01/13 12:23:00, Stop date: 04/01/13 12:23:00 Inactive Luis Carlos 02/2013 [facility] dexamethasone 10 mg, Route: IM , ONCE, Dosing Weight 79.091, kg, Priority: STAT, Start date: 04/01/13 11:36:00, Stop date: 04/01/13 11:36:00 Inactive Luis Carlos 02/2013 [facility] ketorolac 60 mg, Route: IM, Dr ug form: INJ, ONCE, Dosing Weight 79.091, kg, Priority: STAT, Start date: 04/01/13 11:35:00, Stop date: 04/01/13 11:35:00 Inactive [place] 04/01/2013 [facility] Bicillin L-A 1,200,000 unit, 2 mL, Route: IM, Drug form: INJ, ONCE, Dosing Weight 79.091, kg, Start date: 04/01/13 11:35:00, Stop date: 04/01/13 11:35:00(penicillin G benzathine 1.2 MilUnit/2 ml INJ) (Same as: Bi cillin L-A, Permapen) NOT For Daily Use Inactive [facility] 04/01/2013 [facility] acetaminophen 500 mg, 1 tab, R oute: PO, Drug form: TAB, Q6H, PRN Pain, Start date: 07/31/11 19:22:00, Duration: 30 day, Stop date: 08/30/11 19:21:00 PO No Longer Active [place] 08/01/2011 [facility] Metoprolol Succinate ER 25 mg oral table t, extended release 25 mg, 1 tab, Route: PO, Drug form: ERTA B, Daily, Start date: 07/30/11 9:00:00, Duration: 30 day, Stop date: 08/28/11 9:00:00 PO No Longer Active [place] 07/30/2011 [facility] aspirin 325 mg tablet, enteric coated 325 mg, 1 tab, Route: PO, Drug form: ECTAB, Daily, Start date: 07/30/11 9:00:00, Duration: 30 day, Stop date: 08/28/11 9:00:00 PO No Longer Active [place] 07/30/2011 [facility] Saline Flush 0.9% 5 ml, Route: IVP, Drug Form: INJ, Q12H, Start date: 07/29/11 21:00:00, Duration: 30 day, Stop date: 08/28/11 9:00:00 IVP No Longer Active [place] 07/30/2011 [facility] simvastatin 20 mg, 1 tab, Rout e: PO, Drug form: TAB, Bedtime, Start date: 07/29/11 21:00:00, Duration: 30 day, Stop date: 08/27/11 21:00:00 PO No Longer Active [place] 07/30/2011 [facility] Dextrose 50% in Water IV 50 mL , Route: IVP, PRN, Blood Glucose Results, Start date: 07/29/11 17:36:00, Duration: 30 day, Stop date: 08/28/11 17:35:00 IVP No Longer Active [place] 07/29/2011 [facility] Dextrose 50% in Water IV 25 mL , Route: IVP, PRN, Blood Glucose Results, Start date: 07/29/11 17:35:00, Duration: 30 day, Stop date: 08/28/11 17:34:00 IVP No Longer Active [place] 07/29/2011 [facility] metFORmin 500 mg oral tablet 5 00 mg, 1 tab, Route: PO, Drug form: TAB, BID-Meals, Start date: 07/29/11 17:00:00, Duration: 30 day, Stop date: 08/28/11 8:00:00 PO No Longer Active [place] 07/29/2011 [facility] insulin aspart 4 unit, 0.04 mL , Route: SUB-Q, Drug form: SOLN, TID-Before Meals, PRN Blood Glucose Results, Start date: 07/29/11 16:33:00, Duration: 30 day, Stop date: 08/28/11 16:32:00 SUB-Q No Longer Active [place] 07/29/2011 [facility] Saline Flush 0.9% 5 ml, Route: IVP, Drug Form: INJ, PRN, PRN Line Flush, Start date: 07/29/11 16:33:00, Duration: 30 day, Stop date: 08/28/11 16:32:00 IVP No Longer Active [place] 07/29/2011 [facility] nitroglycerin SL Tab 0.4 mg, 1 tab, Route: SL, Drug form: TAB, Q5Min, PRN Chest Pain, Start date: 07/29/11 16:33:00, Duration: 3 doses or times, Stop date: Limited # of times SL No Longer Active [place] 07/29/2011 [facility] insulin aspart 2 unit, 0.02 mL , Route: SUB-Q, Drug form: SOLN, TID-Before Meals, PRN Blood Glucose Results, Start date: 07/29/11 16:32:00, Duration: 30 day, Stop date: 08/28/11 16:31:00 SUB-Q No Longer Active [place] 07/29/2011 [facility] glucagon 1 mg, Route: IM, Drug form: PDR/INJ, PRN, PRN Blood Glucose Results, Start date: 07/29/11 16:32:00, Duration: 30 day, Stop date: 08/28/11 16:31:00 IM No Longer Active [place] 07/29/2011 [facility] atropine 0.5 mg, 5 mL, Route: IVP, Drug form: INJ, PRN, PRN Bradycardia, Start date: 07/29/11 16:32:00, Duration: 30 day, Stop date: 08/28/11 16:31:00 IVP No Longer Active [place] 07/29/2011 [facility] Tylenol 650 mg, 2 tab, Route: PO, Drug form: TAB, Q6H, PRN Pain, Start date: 07/29/11 16:32:00, Duration: 30 day, Stop date: 08/28/11 16:31:00 PO No Longer Active [place] 07/29/2011 [facility] Dextrose 50% Syringe 12.5 gm, Route: IVP, Drug Form: INJ, PRN, PRN Blood Glucose Results, Start date: 07/29/11 16:32:00, Duration: 30 day, Stop date: 08/28/11 16:31:00 IVP No Longer Active [place] 07/29/2011 [facility] Dextrose 50% Syringe 25 gm, Ro hoh: IVP, Drug Form: INJ, PRN, PRN Blood Glucose Results, Start date: 07/29/11 16:31:00, Duration: 30 day, Stop date: 08/28/11 16:30:00 IVP No Longer Active [place] 07/29/2011 [facility] Metoprolol Succinate ER 25 mg oral table t, extended release 25 mg, 1 tab, Route: PO, Drug form: ERTA B, Daily, Start date: 07/29/11 9:00:00, Duration: 30 day, Stop date: 08/27/11 9:00:00 PO No Longer Active [place] 07/29/2011 [facility] simvastatin 20 mg, 1 tab, Rout e: PO, Drug form: TAB, Bedtime, Start date: 07/28/11 21:00:00, Duration: 30 day, Stop date: 08/26/11 21:00:00 PO No Longer Active [place] 07/29/2011 [facility] metFORmin 500 mg oral tablet 5 00 mg, 1 tab, Route: PO, Drug form: TAB, BID-Meals, Start date: 07/28/11 17:00:00, Duration: 30 day, Stop date: 08/27/11 8:00:00 PO No Longer Active [place] 07/28/2011 [facility] Tylenol 650 mg, 2 tab, Route: PO, Drug form: TAB, Q6H, PRN Pain, Start date: 07/28/11 4:25:00, Duration: 30 day, Stop date: 08/27/11 4:24:00 PO No Longer Active [place] 07/28/2011 [facility] Saline Flush 0.9% 5 ml, Route: IVP, Drug Form: INJ, Q12H, Start date: 07/27/11 21:00:00, Duration: 30 day, Stop date: 08/26/11 9:00:00 IVP No Longer Active [place] 07/28/2011 [facility] atropine 0.5 mg, 5 mL, Route: IVP, Drug form: INJ, PRN, PRN Bradycardia, Start date: 07/27/11 19:19:00, Duration: 30 day, Stop date: 08/26/11 19:18:00 IVP No Longer Active [place] 07/28/2011 [facility] aspirin 325 mg tablet, enteric coated 325 mg, 1 tab, Route: PO, Drug form: ECTAB, Q24H, Start date: 07/27/11 19:00:00, Duration: 30 day, Stop date: 08/25/11 19:00:00 PO No Longer Active [place] 07/28/2011 [facility] Saline Flush 0.9% 5 ml, Route: IVP, Drug Form: INJ, PRN, PRN Line Flush, Start date: 07/27/11 18:25:00, Duration: 30 day, Stop date: 08/26/11 18:24:00 IVP No Longer Active [place] 07/28/2011 [facility] nitroglycerin SL Tab 0.4 mg, 1 tab, Route: SL, Drug form: TAB, Q5Min, PRN Chest Pain, Start date: 07/27/11 18:25:00, Duration: 3 doses or times, Stop date: Limited # of times SL No Longer Active [place] 07/28/2011 [facility] Dextrose 50% Syringe 12.5 gm, 25 mL, Route: IVP, Drug Form: INJ, PRN, PRN Blood Glucose Results, Start date: 07/27/11 18:24:00, Duration: 30 day, Stop date: 08/26/11 18:23:00 IVP No Longer Active [place] 07/28/2011 [facility] glucagon 1 mg, Route: IM, Drug form: PDR/INJ, PRN, PRN Blood Glucose Results, Start date: 07/27/11 18:24:00, Duration: 30 day, Stop date: 08/26/11 18:23:00 IM No Longer Active [place] 07/28/2011 [facility] insulin aspart 2 unit, 0.02 mL , Route: SUB-Q, Drug form: SOLN, TID-Before Meals, PRN Blood Glucose Results, Start date: 07/27/11 18:24:00, Duration: 30 day, Stop date: 08/26/11 18:23:00 SUB-Q No Longer Active [place] 07/28/2011 [facility] Tylenol 1,000 mg, Route: PO, D rug form: TAB, ONCE, PRN Pain, Priority: STAT, Start date: 07/27/11 17:44:00, Stop date: 08/26/11 17:43:00 PO No Longer Active [place] 07/27/2011 [facility] metFORmin 500 mg oral tablet 5 00 mg, 1 tab, PO, BID- Meals, Substitution Allowed PO Active [place] 07/27/2011 [facility] hydrochlorothiazide-lisinopril 12.5 mg-1 0 mg oral tablet 1 tab, PO, Daily, Substitution Allowed, Maintenance PO Active 07/27/2011 [facility] simvastatin 20 mg, PO, Bedtime , Substitution Allowed PO Active [place] 07/27/2011 [facility] Vitamin D 50,000 intl units oral capsule 50,000 IntlUnit, 1 cap, PO, QFri, Substitution Allowed PO Active 07/27/2011 [facility] ibuprofen 400 mg oral tablet 4 00 mg, 1 tab, PO, TID, PRN, as needed for headache, Substitution Allowed PO Active 07/27/2011 [facility] Saline Flush 0.9% 5 ml, Route: IVP, Drug Form: INJ, PRN, PRN Line Flush, Start date: 07/27/11 14:54:00, Duration: 24 hr, Stop date: 07/28/11 14:53:00 IVP No Longer Active [place] 07/27/2011 [facility] aspirin 325 mg tablet 325 mg, Route: PO, Drug form: TAB, ONCE, Priority: STAT, Start date: 07/27/11 14:54:00, Stop date: 07/27/11 14:54:00 PO No Longer Active [place] 07/27/2011 [facility] Allergies, Adverse Reactions, Alerts Substance [...] should be multiplied by the estimated BMI. [facility] CHEM PANEL Bili Total 0.9 0.2 - 1.3 03/06/2014 [facility] CHEM PANEL AGAP 13.0 10.0 - 20.0 03/06/2014 [facility] CHEM PANEL B/C Ratio 18 6 - 25 03/06/2014 [facility] CHEM PANEL ALT 28 0 - 65 03/06/2014 [facility] CHEM PANEL AST 18 0 - [...] values reflect the clinical guidelines
of the [place] [employer]. [facility] CHEM PANEL BUN 11 7 - 22 03/06/2014 [facility] CHEM PANEL Albumin Lvl 3.6 3.5 - 5.0 03/06/2014 [facility] CHEM PANEL Total Protein 8.0 6.4 - 8.4 03/06/2014 [facility] CHEM PANEL Calcium Lvl 9.1 8.5 - 10.5 03/06/2014 [facility] CHEM PANEL CO2 25 24 - 32 03/06/2014 [facility] CHEM PANEL A/G Ratio 0.8 0.7 - 1.6 03/06/2014 [facility] CHEM PANEL Globulin 4.4 2.0 - 4.0 03/06/2014 [facility] HEMATOLOGY Segs 60.9 45.0 - 75.0 03/06/2014 [facility] HEMATOLOGY Basophils 1.1 0.0 - 1.0 03/06/2014 [facility] HEMATOLOGY Eosinophils 1.2 0.0 - 4.0 03/06/2014 [facility] HEMATOLOGY Monocytes 4.4 2.0 - 12.0 03/06/2014 [facility] HEMATOLOGY Lymphocytes 32.4 20.0 - 40.0 03/06/2014 [facility] HEMATOLOGY Eosinophils # 0.1 0.0 - 0.5 03/06/2014 [facility] HEMATOLOGY Monocytes # 0.5 0.0 - 0.8 03/06/2014 [facility] HEMATOLOGY Lymphocytes # 3.5 1.0 - 5.5 03/06/2014 [facility] HEMATOLOGY Segs-Bands # 6.5 1.5 - 8.1 03/06/2014 [facility] HEMATOLOGY Basophils # 0.1 0.0 - 0.2 03/06/2014 [facility] HEMATOLOGY RDW 13.0 11.5 - 14.5 03/06/2014 [facility] HEMATOLOGY MCHC 33.4 32.0 - 36.0 03/06/2014 [facility] HEMATOLOGY MCH 28.3 27.0 - 31.0 03/06/2014 [facility] HEMATOLOGY MCV 84.7 80.0 - 98.0 03/06/2014 [facility] HEMATOLOGY MPV 8.7 7.4 - 10.4 03/06/2014 [facility] HEMATOLOGY Platelet 366 133 - 450 03/06/2014 [facility] HEMATOLOGY WBC 10.7 3.7 - 10.4 03/06/2014 [facility] HEMATOLOGY Hct 49.5 36.0 - 48.0 03/06/2014 [facility] HEMATOLOGY Hgb 16.5 12.0 - 16.0 03/06/2014 [facility] HEMATOLOGY RBC 5.84 4.20 - 5.40 03/06/2014 [facility] URINE AND STOOL UA Urobilinogen <=1.0 mg/dL 0.1 - 1.0 03/05/2014 [facility] URINE AND STOOL UA Blood Small *ABN* (03/05/14 12:30 AM) Negative 03/05/2014 [facility] URINE AND STOOL UA Nitrite Negative (03/05/14 12:30 AM) Negative 03/05/2014 [facility] URINE AND STOOL UA Turbidity Marked *ABN* (03/05/14 12:30 AM) Clear 03/05/2014 [facility] URINE AND STOOL UA Spec Grav 1.032 <=1.030 03/05/2014 [facility] URINE AND STOOL UA Color Yellow *NA* (03/05/14 12:30 AM) Yellow 03/05/2014 [facility] URINE AND STOOL UA Sq Epi Many /LPF Few /LPF 03/05/2014 [facility] URINE AND STOOL UA WBC 128 0 - 5 03/05/2014 [facility] URINE AND STOOL UA RBC 15 0 - 2 03/05/2014 [facility] URINE AND STOOL UA Leuk Est Large *ABN* (03/05/14 12:30 AM) Negative 03/05/2014 [facility] URINE AND STOOL UA Bili Negative *NA* (03/05/14 12:30 AM) Negative 03/05/2014 [facility] URINE AND STOOL UA pH 5.0 5.0 - 8.0 03/05/2014 [facility] URINE AND STOOL UA Protein 30 mg/dL Negative mg/dL 03/05/2014 [facility] URINE AND STOOL UA Glucose 500 mg/dL Negative mg/dL 03/05/2014 [facility] URINE AND STOOL UA Ketones 20 mg/dL Negative mg/dL 03/05/2014 [facility] BEDSIDE GLUCOSE TESTING Glucose POC 340 70 - 99 04/01/2013 [facility] <sup>1</sup>Interpretive Data: Upper Reportable Limit: 200 mg/dL. [facility] BEDSIDE GLUCOSE TESTING Glucose POC 356 70 - 99 04/01/2013 [facility] <sup>2</sup>Interpretive Data: Upper Reportable Limit: 200 mg/dL. [facility] BEDSIDE GLUCOSE TESTING Gluc POC Lif scn 162 65 - 110 08/01/2011 [facility] <sup>1</sup>Interpretive Data: Upper Reportable Limit: 200 mg/dL. [facility] BEDSIDE GLUCOSE TESTING Gluc POC Lif scn 226 65 - 110 08/01/2011 [facility] <sup>2</sup>Interpretive Data: Upper Reportable Limit: 200 mg/dL. [facility] BEDSIDE GLUCOSE TESTING Gluc POC Lif scn 144 65 - 110 07/31/2011 [facility] <sup>3</sup>Interpretive Data: Upper Reportable Limit: 200 mg/dL. [facility] BEDSIDE GLUCOSE TESTING Comment1 Notify RN/MD 07/31/2011 NA [facility] BEDSIDE GLUCOSE TESTING Comment1 Notify RN/MD 07/31/2011 NA [facility] BEDSIDE GLUCOSE TESTING Comment1 Notify RN/MD 07/30/2011 NA [facility] CHEMISTRY Troponin-I <0.02 0.00 - 0.40 07/28/2011 Normal [facility] CHEMISTRY Total CK 35 12 - 191 07/28/2011 Normal [facility] CHEMISTRY Total CK 35 12 - 191 07/28/2011 Normal [facility] CHEMISTRY Troponin-I <0.02 0.00 - 0.40 07/28/2011 Normal [facility] CHEMISTRY CK MB Index <1.1 0.0 - 2.5 07/27/2011 Normal [facility] CHEMISTRY Total CK 45 12 - 191 07/27/2011 Normal [facility] CHEMISTRY CK MB <0.5 0.5 - 3.6 07/27/2011 Normal [facility] CHEMISTRY Troponin-I <0.02 0.00 - 0.40 07/27/2011 Normal [facility] CHEMISTRY Chloride Lvl 103 95 - 109 07/27/2011 Normal [facility] CHEMISTRY CO2 21 24 - 32 07/27/2011 LOW [facility] CHEMISTRY Sodium Lvl 135 135 - 145 07/27/2011 Normal [facility] CHEMISTRY Potassium Lvl 3.9 3.5 - 5.1 07/27/2011 Normal [facility] CHEMISTRY Creatinine Lvl 0.8 0.5 - 1.4 07/27/2011 Normal [facility] CHEMISTRY Glucose Lvl 352 07/27/2011 NA <sup>4</sup>Interpretive Data: Reference Ranges : 0 - 7 days : 41 - 90 mg/dL 7 days - 150 yrs : 70 - 99 mg/dL (fasting), based on the clinical recommendations of the [place] [employer]. [facility] CHEMISTRY BUN 23 7 - 22 07/27/2011 HI [facility] CHEMISTRY Bili Total 0.4 0.2 - 1.3 07/27/2011 Normal [facility] CHEMISTRY Alk Phos 99 39 - 136 07/27/2011 Normal [facility] CHEMISTRY AST 6 0 - 37 07/27/2011 Normal [facility] CHEMISTRY ALT 22 0 - 65 07/27/2011 Normal [facility] CHEMISTRY Total Protein 8.0 6.4 - 8.4 07/27/2011 Normal [facility] CHEMISTRY Albumin Lvl 3.8 3.5 - 5.0 07/27/2011 Normal [facility] CHEMISTRY Calcium Lvl 8.9 8.5 - 10.5 07/27/2011 Normal [facility] CHEMISTRY A/G Ratio 0.9 0.7 - 1.6 07/27/2011 Normal [facility] CHEMISTRY B/C Ratio 29 6 - 25 07/27/2011 [facility] CHEMISTRY Globulin 4.2 2.0 - 4.0 07/27/2011 [facility] CHEMISTRY AGAP 14.9 10.0 - 20.0 07/27/2011 Normal [facility] HEMATOLOGY Segs 73.9 45.0 - 75.0 07/27/2011 Normal [facility] HEMATOLOGY Eosinophils 0.6 0.0 - 4.0 07/27/2011 Normal [facility] HEMATOLOGY Lymphocytes 20.8 20.0 - 40.0 07/27/2011 Normal [facility] HEMATOLOGY Segs-Bands # 7.5 1.5 - 8.1 07/27/2011 Normal [facility] HEMATOLOGY Basophils 0.3 0.0 - 1.0 07/27/2011 Normal [facility] HEMATOLOGY Monocytes 4.4 2.0 - 12.0 07/27/2011 Normal [facility] HEMATOLOGY Lymphocytes # 2.1 1.0 - 5.5 07/27/2011 Normal [facility] HEMATOLOGY Basophils # 0.0 0.0 - 0.2 07/27/2011 Normal [facility] HEMATOLOGY Monocytes # 0.4 0.0 - 0.8 07/27/2011 Normal [facility] Eosinophils # 0.1 0.0 - 0.5 07/27/2011 Normal [facility] MPV 7.9 7.4 - 10.4 07/27/2011 Normal [facility] MCHC 35.4 32.0 - 36.0 07/27/2011 Normal [facility] MCH 29.2 27.0 - 31.0 07/27/2011 Normal [facility] RDW 13.2 11.5 - 14.5 07/27/2011 Normal [facility] Platelet 360 133 - 450 07/27/2011 Normal [facility] RBC 4.86 4.20 - 5.40 07/27/2011 Normal [facility] Hct 40.0 36.0 - 48.0 07/27/2011 Normal [facility] MCV 82.4 81.0 - 99.0 07/27/2011 Normal [facility] Hgb 14.2 12.0 - 16.0 07/27/2011 Normal [facility] WBC 10.2 3.7 - 10.4 07/27/2011 Normal [facility] INR 0.95 0.85 - 1.17 07/27/2011 Normal <sup>5</sup>Interpretive Data: RECOMMEND ED RANGES FOR PROTIME INR: 2.0-3.0 for most medical and surgical thromboembolic states. 2.5-3.5 for artificial heart valves and recurrent embolism. INR SHOULD BE USED ONLY FOR PATIENTS ON STABLE ANTICOAGULANT THERAPY. [facility] PT 12.7 12.0 - 14.7 07/27/2011 Normal [facility] PTT 25.2 22.9 - 35.8 07/27/2011 Normal <sup>6</sup>Interpretive Data: Heparin T herapeutic Range: 57 - 92 Seconds [facility] Pathology Reports No Data Provided for This Section Diagnostic Reports Report Value Date Source Breast Mammo Scrn KIMBERLY incl CAD MA BILATERAL DIGITAL SCREENING MAMMOGRAM WITH CAD: 10/15/2018 CLINICAL: /Routine. Current study was evaluated with a Computer Aided Detection (CAD) system. COMPARISON:Comparison is made to exam dated: 10/02/2011 mammogram - [facility]. TECHNIQUE: Mammographic views were obtained using digital acquisition. [address] [employer] Version 1.3 was utilized for computer aided [...] is recommended.(10/16/2019) This exam was interpreted at [id number] for [facility] Breast [place]. Fran johnson/[place]:10/15/2018 15:19:21 [employer] Supervisor(s): Kimberly Davis [facility] letter sent: BI-RADS 1/2 Mammogram BI-RADS: 2 Benign 10/15/2018 [facility] Bone Density Scan Study: Bone Density Scan Clinical Indication: Osteoporosis screening; Images of the axial lumbar spine and left hip have been performed using Nova Ratio Discovery SL scanner. COMPARISON: None FINDINGS: The [...] standard deviations below peak bone mass. SL: [id number] 10/15/2018 [facility] Shoulder series DX Left should er 3 views DX, 09/22/2018 12:37 CDT HISTORY: - left shoulder pain COMPARISON: None FINDINGS: No evidence for acute fracture. Humeral head is intact and located. Acromioclavicular joint is also intact mild degenerative changes. Soft tissues unremarkable. IMPRESSION: No acute osseous abnormality SL: [id number] 09/22/2018 [facility] Abdomen/Pelvis wo IV contrast CT CT [...] cholecystectomy, append ectomy and hysterectomy. SL: 03/05/2014 [facility] Brain wo contrast CT CT head w [...] Dedicated MRI brain if indicated. SL: 03/05/2014 [facility] Ribs bilateral Exam: Bilateral rib x-ray series [...] 03/06/2014 [facility] Systolic (mm Hg) 134 03/06/2014 [facility] Heart Rate 75 03/06/2014 [facility] Respitory Rate 16 03/06/2014 [facility] Height 160.02 cm 03/05/2014 [facility] BMI Calculated 30.71 03/05/2014 [facility] Weight 78.636 03/05/2014 [facility] Temperature Oral (F) 98.3 F 03/05/2014 [facility] Heart Rate 74 03/05/2014 [facility] Systolic (mm Hg) 143 03/05/2014 [facility] Respitory Rate 16 03/05/2014 [facility] Diastolic (mm Hg) 81 03/05/2014 [facility] Heart Rate 86 04/01/2013 [facility] Systolic (mm Hg) 136 04/01/2013 [facility] Diastolic (mm Hg) 84 04/01/2013 [facility] Respitory Rate 16 04/01/2013 [facility] Respitory Rate 16 04/01/2013 [facility] Diastolic (mm Hg) 68 04/01/2013 [facility] Heart Rate 90 04/01/2013 [facility] Systolic (mm Hg) 142 04/01/2013 [facility] Weight 79.091 04/01/2013 [facility] Height 160.02 cm 04/01/2013 [facility] Respitory Rate 18 04/01/2013 [facility] Heart Rate 90 04/01/2013 [facility] Systolic (mm Hg) 132 04/01/2013 [facility] Diastolic (mm Hg) 85 04/01/2013 [facility] Temperature Oral (F) 98.2 F 04/01/2013 [facility] Heart Rate 69 08/01/2011 [facility] Temperature Oral (F) 98.2 F 08/01/2011 [facility] Respitory Rate 18 08/01/2011 [facility] Systolic (mm Hg) 122 08/01/2011 [facility] Diastolic (mm Hg) 69 08/01/2011 [facility] Diastolic (mm Hg) 71 08/01/2011 [facility] Heart Rate 71 08/01/2011 [facility] Systolic (mm Hg) 109 08/01/2011 [facility] Respitory Rate 20 08/01/2011 [facility] Temperature Oral (F) 97.4 F 08/01/2011 [facility] Diastolic (mm Hg) 56 08/01/2011 [facility] Respitory Rate 18 08/01/2011 [facility] Systolic (mm Hg) 92 08/01/2011 [facility] Heart Rate 70 08/01/2011 [facility] Temperature Oral (F) 98.2 F 08/01/2011 [facility] Weight 81.364 07/28/2011 [facility] Height 157.48 cm 07/28/2011 [facility] Weight 81.364 07/27/2011 [facility] Height 157.48 cm 07/27/2011 [facility] Encounters Location Location Details Encounter Type Encounter Number Reason For Visit Attending Provider ADM Date DC Date Status Source [facility] Inpatient [id number] CHEST PAIN CASTILLOJazzy GOMEZ 07/27/2011 08/01/2011 Active [facility] [id number] ZACHARY YEUNG 04/01/2013 04/01/2013 Discharged [facility] OD [id number] 719.4 - PAIN IN JOINT MILLIE LYONS 07/24/2013 07/24/2013 Active ASHLEY Degroot [facility] [id number] 02 Susi Stanford 03/05/2014 03/06/2014 [facility] Outpatient [id number] Ciara Cardoso 09/19/2018 Active [facility] Primary Care [facility] Outpatient [id number] Ciara Cardoso 09/19/2018 09/20/2018 [facility] Outpatient [id number] Ciara Cardoso 09/22/2018 09/23/2018 [facility] Outpatient [id number] Dasha Canchola 10/09/2018 Active [facility] Primary Care [facility] Outpatient [id number] Ciara Cardoso 10/09/2018 10/10/2018 Medical [facility] Outpatient [id number] Ciara Osunaero 10/15/2018 10/16/2018 [facility] Outpatient [id number] Ciara Cardoso 10/20/2018 Active [facility] Outpatient [id number] Ciara Cardoso 10/20/2018 Active [facility] Primary [facility] Outpatient [id number] Ciara Osunaero 10/20/2018 10/21/2018 [facility] Primary [facility] Ambulatory Pre-Reg [id number] Ciara Cardoso 10/20/2018 10/20/2018 [facility] Outpatient [id number] Zhchiao Renetta 11/28/2018 Active [facility] Ambulatory Pre-Reg [id number] Zhchiao Renetta 11/28/2018 11/28/2018 Medical [facility] Outpatient [id number] Ciara Cardoso 01/19/2019 Active [facility] Outpatient [id number] Ciara Cardoso 01/19/2019 01/20/2019 [facility] Phone Message [id number] 01/27/2019 01/29/2019 [facility] Internal Medicine [facility] Phone Message [id number] 04/07/2019 04/09/2019 [facility] Outpatient [id number] Ciara Cardoso 04/21/2019 Active [facility] Internal Medicine [facility] Phone Message [id number] 05/25/2019 05/27/2019 [facility] Internal Medicine [facility] Phone Message [id number] 07/08/2019 07/10/2019 [facility] Procedures Procedure Code Date Perfomer Comments Source Bone density scan<sup>1</sup> [id number] 10/15/2018 1. Osteoporosis of the left femoral neck. 2. Osteopenia of the total left hip. 3. Osteopenia of the lumbar spine. [facility] Mammogram<sup>2</sup> [id number] 10/15/2018 There is no mammographic evidence of malignancy. A 1 year screening mammogram is recommended.(10/16/2019) [facility] Diabetic Retinopathy [facility] 7 field stere oscopic fundus photography<sup>3, 4</sup> [id number] 10/08/[address] Ronak Lott i s retinal specialist. [facility] Diabetic Retinopathy Study 7 field stere oscopic fundus photography<sup>1, 2</sup> [id number] 10/08/[address] Ronak valdez retinal specialist. [facility] Colonoscopy<sup>5</sup> [id number] 06/24/2014 Per patient it was ok. [facility] Colonoscopy<sup>3</sup> [id number] 06/24/2014 Per patient it was ok. [facility] Colonoscopy<sup>1</sup> [id number] 06/24/2014 Per patient it was ok. Medical [facility] Emergency department visit for the evalu ation and management of a patient, which requires these 3 sullivan components: A detailed history; A detailed examination; and Medical decision making of moderate complexity. Counseling [place] [id number] 04/01/2013 [facility] Therapeutic, prophylactic, or diagnostic injection (specify substance or drug); subcutaneous or intramuscular [id number] 04/01/2013 [facility] Hysterectomy<sup>6</sup> [id number] 06/24/1979 Due to fibroids Medical [facility] Hysterectomy<sup>4</sup> [id number] 06/24/1979 Due to fibroids [facility] Hysterectomy<sup>2</sup> 34839 [id number] 06/24/1979 Due to fibroids Medical [facility] Appendectomy [id number] [facility] Cholecystectomy [id number] [facility] Tubal ligation [id number] [facility] Appendectomy [id number] [facility] Cholecystectomy [id number] [facility] Tubal ligation [id number] [facility] Assessment and Plan No Data Provided for This Section Plan of Care No Data Provided for This Section Social History Social History Date Source Social History TypeResponse Alcohol Past Smoking Status Former smoker; Type: Cigarettes; Exposure to Tobacco Smoke None; Cigarette Smoking Last 365 Days No; Reg Smoking Cessation Counseling No entered on: 01/19/19 09/19/2018 [facility] Social History TypeResponse Alcohol Past Smoking Status Former smoker; Type: Cigarettes; Exposure to Tobacco Smoke None; Cigarette Smoking Last 365 Days No; Reg Smoking Cessation Counseling No entered on: 10/09/18 09/19/2018 [facility] Family History No Data Provided for This Section Advance Directives No Data Provided for This Section Functional Status No Data Provided for This Section
--- OUTSIDE RECORDS SUMMARY | 2020-04-08 18:33 | XMS REPORT | Continuity of Care Document ---
Author Author [facility] t Organization [facility] Address [address] [place] [address] Phone Unavailable Care Team Providers Care Associate Vice President Name Role Phone Satya MARTINEZ PCP Dewayne Schaeffer Attphys Unavailable Cornelius Bojorquez MD Attphys [phone] Cornelius Bojorquez MD Attphys [phone] Valeria KOHLER, Jamar Ramírez Attphys [place] [...] MEDICAID - MEDICAID MGD 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 [id number] 2019- PresentMedicaid Contracted [id number] 2019 00:00:00 [facility] - MEDICARE MGD CAREUNI ESTER MEDICARE [id number]/06/2019-Present [id number] 2019 00:00:00 [facility] CDC REVIEWCDC [id number] 2020-Present [facility] [place] [address] [id number] 2020 00:00:00 [facility] Star Com [id number] 2019 00:00 :00 [facility] [id number] 2018 00:00:00 [facility] Problems Condition Name Condition Details Condition Category Status Onset Date Resolution Date Last Treatment Date Treating Clinician Comments Source MAMMO --- BONE DENSITY MAMM O --- BONE DENSITY Active 09/25/2018 [facility] Active 2018-09-25 00:00:00 2019-02-19 17:20:00 Stevo Sales M25.512 M25. 512 Active 09/22/2018 [facility] Active 2018-09-22 00:00:00 2018-09-22 12:34:00 Stevo Sales ABD PAIN ABD PAIN Active 03/05/2014 [facility] Active 2014-03-05 12:00:00 2014-03-05 21:57:00 Stevo Sales 719.4 - PAIN IN JOINT 719. 4 - PAIN IN JOINT Active 07/24/2013 [facility] [place] [facility] Active 2013-07-24 00:01:00 2013-07-30 08:00:00 [facility] SORE THROAT SORE THROAT Active 04/01/2013 [facility] Active 2013-04-01 00:00:00 2013-04-01 11:50:00 [facility] CHEST PAIN CHES T PAIN Active 07/27/2011 [facility] Active 2011-07-27 13:30:00 2011-08-07 13:33:00 [facility] HTN - Hypertension HTN - Hypertension Active 01/22/2001 Problem 08/03/2011 [facility] Active 2001-01-22 00:00:00 2011-08-03 09:48:46 [facility] Cerebrovascular accident (CVA) CVA (cerebral vascular accident) Pro blem Active [facility] Dehydration Dehydration Problem Active [facility] Acute renal failure superimposed on chronic kidney dis ease Renal failure (ARF), acute on chronic Problem Active [facility] Acute on chronic renal insufficiency Acute on chronic renal insufficiency Problem Active [facility] 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 Hypoglycemia secondar y to sulfonylurea Problem Active [facility] Constipation Problem Active [facility] Pneumonia due to severe acute respiratory syndrome coronavir us 2 (SARS-CoV-2) Problem Active [facility] Cerebrovascular disease (disorder) Cerebrovascular disease (disorder) [facility] Active 2019-07-12 00:50:24 [facility] Finding of body mass index (finding) Finding of body mass index (finding) Active [facility]12[facility]2019 [facility] Problem Active 2019-07-12 00:50:24 [facility] Hypertensive disorder, systemic arterial (disorder) Hypertensive disorder, systemic arterial (disorder) Active [facility]12[facility]2019 [facility] ASHLEY Degroot [facility] Problem Active 2019-07-12 00:50:24 [facility] Left hemiparesis (disorder) Le ft hemiparesis (disorder) Active Problem 07/12/2019 [facility] Problem Active 2019-07-12 00:50:24 [facility] Mixed hyperlipidemia (disorder) Mixed hyperlipidemia (disorder) Active [facility]12[facility]2019 [facility] Problem Active 2019-07-12 00:50:24 Stevo Sales Shoulder pain (finding) Shou lder pain (finding) Active Problem [facility]12/2019 [facility] Problem Active 2019-07-12 00:50:24 Stevo Sales Diabetes mellitus type 2 (disorder) Diabetes mellitus type 2 (disorder) Active Problem 11/30/2018 [facility] Problem Active 2018-11-30 21:55:37 Memzaki Sales Unsteady when walking (finding) Unsteady when walking (finding) Active Problem 07/12/2019 [facility] Problem Active 2019-07-12 00:50:24 Stevo Sales Vitamin D deficiency (disorder) Vitamin D deficiency (disorder) Active Problem 07/12/2019 [facility] Problem Active 2019-07-12 00:50:24 Stevo Sales Chronic kidney disease stage 4 (disorder) Chronic kidney disease stage 4 (disorder) Active Problem 07/12/2019 [facility] Problem Active 2019-07-12 00:50:24 Kai Sales Diabetic complication (disorder) Diabetic complication (disorder) Active Problem 07/12/2019 [facility] Problem Active 2019-07-12 00:50:24 Stevo Sales Osteoporosis (disorder) Oste oporosis (disorder) Active Problem 07/12/2019 [facility] Problem Active 2019-07-12 00: 50:24 Stevo Sales Chest pain Ches t pain Active Problem 04/04/2013 [facility] Active 2013-04-04 05:57:39 Ca heidi Sales DM - Diabetes mellitus DM - Diabetes mellitus Active Problem 04/04/2013 [facility] Active 2013-04-04 05:57:3 9 Stevo Sales Chest pain (finding) Ches t pain (finding) Active Problem 03/08/2014 ASHLEY Degroot [facility] Problem Active 2014-03-08 21:25:53 Stevo Sales Diabetes mellitus (disorder) D iabetes mellitus (disorder) Active Problem 03/08/2014 ASHLEY Degroot [facility] Problem Active 2014-03-08 21:25:53 Stevo Sales Hyperlipidemia (disorder) Hype rlipidemia (disorder) Active Problem 03/08/2014 ASHLEY Degroot [facility] Problem Active 2014-03-08 21:25:53 Stevo Sales HTN - Hypertension HTN - Hypertension Active Problem 04/04/2013 [facility] Active 2013-04-04 05:57:39 [facility] Hyperlipidemia Hype rlipidemia Active Problem 04/04/2013 [facility] Active 2013-04-04 05:57:39 [facility] CHEST PAIN NOS CHES T PAIN NOS Active [facility] Active 2011-08-07 13:33:00 [facility] Discharge Diagnosis: Abdominal pain Discharge Diagnosis: Abdominal pain 03/06/2014 03/08/2014 [facility] Problem 2014-03-06 05:00:00 2014-03-08 21:25:53 2014-03-08 21:25:53 [facility] Discharge Diagnosis: Acute lower urinary tract infecti on Discharge Diagnosis: Acute lower urinary tract infection 03/06/2014 03/08/2014 [facility] 2014-03-06 05:00:00 2014-03-08 21:25:53 2014-02 21:25:53 [facility] Allergies, Adverse Reactions, Alerts Allergy Name Allergy Type Status Severity Reaction(s) Onset Date Inacti ve Date Treating Clinician Comments Source Peanut Propensity to adverse reactions Active Swelling 2020-02 00:00:00 [facility] Iodine Propensity to adverse reactions Active Othe r (See Comments) 2020-01-28 00:00:00 unsure [facility] iodine DA Active U 2019-07-14 00:00:00 [facility] diphenhydramine DA Active U 2019-07-14 00:00:00 [facility] vancomycin DA Active U 2019-07-14 00:00:00 [facility] tomato FA Active U 2019-07-14 00:00:00 [facility] Diphenhydramine Allergy to substance Active Severe RASH 2019-04-17 00:00:00 [facility] Tomato Allergy to substance Active Severe RASH/VOMITING 2019-04-17 00 :00:00 [facility] iodine DA Active MO 2016-07-05 00:00:00 [facility] vancomycin DA Active U 2016-07-05 00:00:00 [facility] tomato FA Active U 2016-07-05 00:00:00 [facility] vancomycin vancomycin Active Low Ca morial Henrry iodine iodine Active [facility] Social History Social Habit Start Date Stop Date Quantity Comments Source History SDOH Alcohol Std Drinks [facility] History SDOH Alcohol Binge [facility] Tobacco use and exposure 2020-03-04 00:00:00 2020-03-04 00:00:00 Pedro murphy used [facility] Alcohol intake 2020-03-04 00:00:00 2020-03-04 00:00:00 Current non-drinker of alcohol (finding) [facility] Alena r History SDOH Alcohol Frequency 2020-03-01 00:00:00 2020-03-01 00:00:0 0 1 [facility] Tobacco Comment 2020-03-01 00:00:00 2020-03-01 00:00:00 occassio nal smoker for 4 years only [facility] Social History 2018-09-19 16:43:09 2018-09-19 16:43:09 [facility] Sex Ass[birth year] At 1955 00:00:00 1955 00:00:00 Female [facility] Smoking Status Start Date Stop Date Source Former smoker 2020-03-04 00:00:00 2020-03-04 00:00:00 [facility] Medications Ordered Medication Name Filled Medication Name Start Date Stop Da te Current Medication? Ordering Clinician Indication Dosage Frequency Signature (SIG) Comments Components Source amLODIPine (NORVASC) 5 MG tablet 2020-03-04 17:24:01 Yes 5mg QD Take 5 mg by mouth daily. [facility] pantoprazole (PROTONIX) 40 MG tablet 2020-03-04 17:24:01 Ye s 40mg QD Take 40 mg by mouth daily. [facility] aspirin 81 MG EC tablet 2020-03-04 17:24:01 Yes 81mg QD Take 81 mg by mouth daily. [facility] atorvastatin (LIPITOR) 80 MG tablet 2020-03-04 17:24:01 Yes 80mg QD Take 80 mg by mouth daily. [facility] QUE[facility]apine (SEROQUEL) 25 MG tablet 2020-03-04 17:24:01 Yes 25mg QD Take 25 mg by mouth nightly. [facility] clopidogreL (PLAVIX) 75 mg tablet 2020-03-04 17:24:01 Yes 75mg QD Take 75 mg by mouth daily. [facility] ergocalciferol (VITAMIN D2) 1,250 mcg (50,000 unit) capsule 2020-03-04 17:24:01 Yes [id number] Q7D Take 50,000 Units by mouth on ce a week. [facility] traMADoL (ULTRAM) 50 mg tablet 2020-03-04 00:00:00 2020-03-09 23 :59:00 No 50mg Take 1 tablet (50 mg total) by mouth every 6 (six) hours as needed for Pain for up to 5 days. Max Daily Amount: 200 mg [facility] Metoprolol Tartrate 25 mg oral tablet 2019-05-25 16:19:08 Y es = 0.5 tab, PO, BID, # 90 tab, Pharmacy: [facility] #[id number] [facility] Furosemide 20 MG Oral Tablet 2019-04-08 02:10:03 Yes = 1 tab, PO, Daily, # 90 tab, STOP LISINOPRIL HCTZ, Pharmacy: [facility] #[id number] [facility] atorvastatin 80 mg oral tablet 2019-01-29 02:40:00 Yes 80 mg = 1 tab, PO, Bedtime, # 90 tab, 1 Refill(s), Pharmacy: [facility] [employer] [facility] #[id number] [facility] amLODIPine 5 mg oral tablet 2019-01-28 21:42:09 Yes = 1 tab, PO, BID, # 180 tab, Refill(s) 1, Pharmacy: [facility] [employer] [facility] #[id number] [facility] amLODIPine 5 mg oral tablet 2019-01-28 21:36:00 No 5 mg = 1 tab, PO, BID, # 60 tab, 1 Refill(s), Pharmacy: [facility] [employer] [facility] #[id number] [facility] NIFEdipine 30 mg oral tablet, extended release 2019-01-28 02:09: 00 No 30 mg = 1 tab, PO, Daily, # 90 tab, 1 Re fill(s), Pharmacy: [id number] pantoprazole 40 mg oral enteric coated tablet 2019-01-21 02:07:0 0 Yes See Instructions, 1 tab PO a day only 2 times a week, # 90 tab, 0 Refill(s), called to pharmacy [facility] Ergocalciferol [id number] UNT Oral Capsule 2019-01-19 16:11:16 Y es 50,000 IntlUnit = 1 cap, PO, qWeek, # 12 cap, 2 Refill(s), Pharmacy: [facility] [employer] [facility] #[id number] [facility] Alendronic acid 70 MG Oral Tablet 2019-01-19 16:10:38 No 70 mg = 1 tab, PO, Q7D, with 6 to 8 ounces plain water, at least 30 minutes before first food, beverage, or medication of the day, # 12 tab, 3 Refill(s), Pharmacy: [facility] [employer] [facility] #[id number] [facility] atorvastatin 80 mg oral tablet 2019-01-19 16:10:00 Yes 80 mg = 1 tab, PO, Daily, # 90 tab, 1 Refill(s), Pharmacy: [facility] [employer] [facility] #[id number] [facility] lisinopril 30 mg oral tablet 2019-01-19 16:10:00 Yes 30 mg = 1 tab, PO, Daily, # 90 tab, 1 Refill(s), Pharmacy: [facility] [employer] [facility] #[id number], stop lisinopril hctz [facility] Furosemide 20 MG Oral Tablet 2019-01-19 16:10:00 Yes 20 mg = 1 tab, PO, Daily, # 90 tab, 0 Refill(s), Pharmacy: [facility] [employer] [facility] #[id number], stop lisinopril hctz [facility] atorvastatin 80 mg oral tablet 2019-01-19 15:36:00 No 80 mg = 1 tab, PO, Daily, # 90 tab, 3 Refill(s) Cynthia kwon Henrry Ergocalciferol [id number] UNT Oral Capsule 2018-10-21 21:15:00 Y es 50,000 IntlUnit = 1 cap, PO, qWeek, # 12 cap, 2 Refill(s), Pharmacy: [facility] [address] [facility] citalopram 10 mg oral tablet 2018-10-20 17:05:00 Yes 10 mg = 1 tab, PO, Daily, # 30 tab, 1 Refill(s), Pharmacy: [facility] [address] [place] [address] Alendronic acid 70 MG Oral Tablet 2018-10-20 17:03:00 Yes 70 mg = 1 tab, PO, Q7D, with 6 to 8 ounces plain water, at least 30 minutes before first food, beverage, or medication of the day, # 12 tab, 3 Refill(s) [facility] OneTouch Ultra Blue Blood Glucose Test Strip 2018-10-20 16:57:00 Yes , # 270 ea, Insulin dependent, Does not use insulin pump, Last DM eval date 10/20/18, 3 Refill(s), Pharmacy: [facility] [address] atorvastatin 40 mg oral tablet 2018-10-20 16:56:30 Yes 40 mg = 1 tab, PO, Bedtime, # 90 tab, 1 Refill(s), Pharmacy: [facility] [address] Hydrochlorothiazide 12.5 MG / Lisinopril 20 MG Oral Tablet 2018-10-20 16:53:00 Yes 1 tab, PO, Daily, # 90 tab, 1 Refill(s), Pharmacy: [facility] [id number], stop losartan hctz and amlodipine. [facility] atorvastatin 40 mg oral tablet 2018-10-09 19:40:00 Yes 40 mg = 1 tab, PO, Bedtime, # 90 tab, 1 Refill(s), Pharmacy: [facility] [address] Trazodone Hydrochloride 50 MG Oral Tablet 2018-09-19 21:12:00 Yes 50 mg = 1 tab, PO, Bedtime, after meals for insomnia, # 30 tab, 1 Refill(s), Pharmacy: [facility] [address] [place] gabapentin 300 MG Oral Capsule 2018-09-19 17:33:00 Yes 300 mg = 1 cap, PO, BID, # 60 cap, 1 Refill(s), Pharmacy: [facility] [address] metoprolol tartrate 25 mg oral tablet 2018-09-19 16:44:00 Y es 12.5 mg = 0.5 tab, PO, BID, 0 Refill(s) [facility] carmen [place] Hydrochlorothiazide 12.5 MG / Losartan Potassium 50 [...] 18 unit, SUB-Q, Bedtime, 0 Re fill(s) Stevo Sales atorvastatin 40 mg oral tablet 2018-09-19 16:44:00 Yes 40 mg = 1 tab, PO, Bedtime, # 90 tab, 1 Refill(s) Stevo Sales Acetaminophen 325 MG / Hydrocodone Bitartrate 5 MG Oral Tabl et 2014-03-06 07:48:00 Yes 1 tab, PO, Q4H, for pain, # 1 2 tab, 0 Refill(s) Stevo Sales ciprofloxacin 500 mg oral tablet 2014-03-06 07:48:00 Yes 500 mg = 1 tab, PO, Q12H, # 20 tab, 0 Refill(s) [facility] camron Sales Zofran 2014-03-06 03:16:00 No 4 mg, Route: IVP, Drug form: INJ, ONCE, Dosing Weight 78.636, kg, Priority: STAT, Start date: 03/05/14 22:16:00, Stop date: 03/05/14 22:16:00 [facility] Scott easley Morphine 2014-03-06 03:15:00 No 4 mg, Route: IVP, Drug form: INJ, ONCE, Dosing Weight 78.636, kg, Priority: STAT, Start date: 03/05/14 22:15:00, Stop date: 03/05/14 22:15:00 [facility] mg oral tablet 2013-04-01 18:36:01 Yes Bobbi Talib Aldridge 10 mg, 1 tab, PO, Daily, 30 tab, Substit ution Allowed, TAB [facility] metFORmin 500 mg oral tablet 2013-04-01 18:35:52 Yes Bobbi Talib Aldridge 500 mg, 1 tab, PO, BID, 30 tab, Substitu tion Allowed [facility] Insulin regular 2013-04-01 17:23:00 No Bobbi Aldridge 8 unit, Route: SUB-Q, ONCE, Dosing Weight 79.091, kg, Start date: 04/01/13 12:23:00, Stop date: 04/01/13 12:23:00 [facility] dexamethasone 2013-04-01 16:36:00 No Bobbi lees 10 mg, Route: IM, ONCE, Dosing Weight 79.091, kg, Priority: STAT, Start date: 04/01/13 11:36:00, Stop date: 04/01/13 11:36:00 [facility] ketorolac 2013-04-01 16:35:00 No Bobbi Franklin s 60 mg, Route: IM, Drug form: INJ, ONCE, Dosing Weight 79.091, kg, Priority: STAT, Start date: 04/01/13 11:35:00, Stop date: 04/01/13 11:35:00 [facility] Bicillin L-A 2013-04-01 16:35:00 No Bobbi Lawrence ards 1,200,000 unit, 2 mL, Route: IM, Drug form: INJ, ONCE, Dosing Weight 79.091, kg, Start date: 04/01/13 11:35:00, Stop date: 04/01/13 11:35:00(penicillin G benzathine 1.2 MilUnit/2 ml INJ) (Same as: Bicillin L-A, Permapen) NOT For Daily Use [facility] acetaminophen 2011-08-01 01:22:00 No Caden Snelling 500 mg, 1 tab, Route: PO, Drug form: TAB, Q6H, PRN Pain, Start date: 07/31/11 19:22:00, Duration: 30 day, Stop date: 08/30/11 19:21:00 [facility] Metoprolol Succinate ER 25 mg oral tablet, extended release 2011-07-30 15:00:00 No Caden Snelling 25 mg, 1 tab, Route: PO, Drug form: ERTAB, Daily, Start date: 07/30/11 9:00:00, Duration: 30 day, Stop date: 08/28/11 9:00:00 [facility] aspirin 325 mg tablet, enteric coated 2011-07-30 15:00:00 No Caden Nasim 325 mg, 1 tab, Route : PO, Drug form: ECTAB, Daily, Start date: 07/30/11 9:00:00, Duration: 30 day, Stop date: 08/28/11 9:00:00 [facility] Saline Flush 0.9% 2011-07-30 03:00:00 No Caden Snelling 5 ml, Route: IVP, Drug Form: INJ, Q12H, Start date: 07/29/11 21:00:00, Duration: 30 day, Stop date: 08/28/11 9:00:00 [facility] simvastatin 2011-07-30 03:00:00 No Caden Nasim 20 mg, 1 tab, Route: PO, Drug form: TAB, Bedtime, Start date: 07/29/11 21:00:00, Duration: 30 day, Stop date: 08/27/11 21:00:00 [facility] Dextrose 50% in Water IV 2011-07-29 23:36:00 No Caden Nasim 50 mL, Route: IVP, PRN, Blood Glucose Results, Start date: 07/29/11 17:36:00, Duration: 30 day, Stop date: 08/28/11 17:35:00 [facility] Dext[facility]% in Water IV 2011-07-29 23:35:00 No Caden Snelling 25 mL, Route: IVP, PRN, Blood Glucose Results, Start date: 07/29/11 17:35:00, Duration: 30 day, Stop date: 08/28/11 17:34:00 Ca heidi Sales metFORmin 500 mg oral tablet 2011-07-29 23:00:00 No Placido eev Snelling 500 mg, 1 tab, Route: PO, Drug form: TAB, BID-Meals, Start date: 07/29/11 17:00:00, Duration: 30 day, Stop date: 08/28/11 8:00:00 [facility] insulin aspart 2011-07-29 22:33:00 No Caden Nasim 4 unit, 0.04 mL, Route: SUB-Q, Drug form: SOLN, TID-Before Meals, PRN Blood Glucose Results, Start date: 07/29/11 16:33:00, Duration: 30 day, Stop date: 08/28/11 16:32:00 [facility] Saline Flush 0.9% 2011-07-29 22:33:00 No Caden Nasim 5 ml, Route: IVP, Drug Form: INJ, PRN, PRN Line Flush, Start date: 07/29/11 16:33:00, Duration: 30 day, Stop date: 08/28/11 16:32:00 [facility] nitroglycerin SL Tab 2011-07-29 22:33:00 No Caden Grov er 0.4 mg, 1 tab, Route: SL, Drug form: TAB, Q5Min, PRN Chest Pain, Start date: 07/29/11 16:33:00, Duration: 3 doses or times, Stop date: Limited # of times [facility] insulin aspart 2011-07-29 22:32:00 No Caden Nasim 2 unit, 0.02 mL, Route: SUB-Q, Drug form: SOLN, TID-Before Meals, PRN Blood Glucose Results, Start date: 07/29/11 16:32:00, Duration: 30 day, Stop date: 08/28/11 16:31:00 [facility] glucagon 2011-07-29 22:32:00 No Caden Nasim 1 mg, Route: IM, Drug form: PDR/INJ, PRN, PRN Blood Glucose Results, Start date: 07/29/11 16:32:00, Duration: 30 day, Stop date: 08/28/11 16:31:00 [facility] atropine 2011-07-29 22:32:00 No Caden Nasim 0.5 mg, 5 mL, Route: IVP, Drug form: INJ, PRN, PRN Bradycardia, Start date: 07/29/11 16:32:00, Duration: 30 day, Stop date: 08/28/11 16:31:00 [facility] Tylenol 2011-07-29 22:32:00 No Caden Nasim 650 mg, 2 tab, Route: PO, Drug form: TAB, Q6H, PRN Pain, Start date: 07/29/11 16:32:00, Duration: 30 day, Stop date: 08/28/11 16:31:00 [facility] Dextrose 50% Syringe 2011-07-29 22:32:00 No Caden Grov er 12.5 gm, Route: IVP, Drug Form: INJ, PRN, PRN Blood Glucose Results, Start date: 07/29/11 16:32:00, Duration: 30 day, Stop date: 08/28/11 16:31:00 [facility] Dextrose 50% Syringe 2011-07-29 22:31:00 No Caden Grov er 25 gm, Route: IVP, Drug Form: INJ, PRN, PRN Blood Glucose Results, Start date: 07/29/11 16:31:00, Duration: 30 day, Stop date: 08/28/11 16:30:00 [facility] Metoprolol Succinate ER 25 mg oral tablet, extended release 2011-07-29 15:00:00 No Palur V [place] 25 mg, 1 tab, Route: PO, Drug form: ERTAB, Daily, Start date: 07/29/11 9:00:00, Duration: 30 day, Stop date: 08/27/11 9:00:00 [facility] simvastatin 2011-07-29 03:00:00 No Palur V [place] 20 mg, 1 tab, Route: PO, Drug form: TAB, Bedtime, Start date: 07/28/11 21:00:00, Duration: 30 day, Stop date: 08/26/11 21:00:00 [facility] mg oral tablet 2011-07-28 23:00:00 No Palur V [place] 500 mg, 1 tab, Route: PO, Dr ug form: TAB, BID-Meals, Start date: 07/28/11 17:00:00, Duration: 30 day, Stop date: 08/27/11 8:00:00 [facility] Tylenol 2011-07-28 10:25:00 No Palur V [place] 650 mg, 2 tab, Route: PO, Drug form: TAB, Q6H, PRN Pain, Start date: 07/28/11 4:25:00, Duration: 30 day, Stop date: 08/27/11 4:24:00 [facility] Saline Flush 0.9% 2011-07-28 03:00:00 No Caden Snelling 5 ml, Route: IVP, Drug Form: INJ, Q12H, Start date: 07/27/11 21:00:00, Duration: 30 day, Stop date: 08/26/11 9:00:00 [facility] atropine 2011-07-28 01:19:00 No Caden Snelling 0.5 mg, 5 mL, Route: IVP, Drug form: INJ, PRN, PRN Bradycardia, Start date: 07/27/11 19:19:00, Duration: 30 day, Stop date: 08/26/11 19:18:00 [facility] aspirin 325 mg tablet, enteric coated 2011-07-28 01:00:00 No Caden Nasim 325 mg, 1 tab, Route : PO, Drug form: ECTAB, Q24H, Start date: 07/27/11 19:00:00, Duration: 30 day, Stop date: 08/25/11 19:00:00 [facility] Saline Flush 0.9% 2011-07-28 00:25:00 No Caden Nasim 5 ml, Route: IVP, Drug Form: INJ, PRN, PRN Line Flush, Start date: 07/27/11 18:25:00, Duration: 30 day, Stop date: 08/26/11 18:24:00 [facility] nitroglycerin SL Tab 2011-07-28 00:25:00 No Caden Grov er 0.4 mg, 1 tab, Route: SL, Drug form: TAB, Q5Min, PRN Chest Pain, Start date: 07/27/11 18:25:00, Duration: 3 doses or times, Stop date: Limited # of times [facility] Dextrose 50% Syringe 2011-07-28 00:24:00 No Caden Grov er 12.5 gm, 25 mL, Route: IVP, Drug Form: INJ, PRN, PRN Blood Glucose Results, Start date: 07/27/11 18:24:00, Duration: 30 day, Stop date: 08/26/11 18:23:00 [facility] glucagon 2011-07-28 00:24:00 No Caden Whiter 1 mg, Route: IM, Drug form: PDR/INJ, PRN, PRN Blood Glucose Results, Start date: 07/27/11 18:24:00, Duration: 30 day, Stop date: 08/26/11 18:23:00 [facility] insulin aspart 2011-07-28 00:24:00 No Caden Whiter 2 unit, 0.02 mL, Route: SUB-Q, Drug form: SOLN, TID-Before Meals, PRN Blood Glucose Results, Start date: 07/27/11 18:24:00, Duration: 30 day, Stop date: 08/26/11 18:23:00 [facility] Tylenol 2011-07-27 23:44:00 No Cornelius [place] 1,000 mg, Route: PO, Drug form: TAB, ONCE, PRN Pain, Priority: STAT, Start date: 07/27/11 17:44:00, Stop date: 08/26/11 17:43:00 [facility] metFORmin 500 mg oral tablet 2011-07-27 22:00:40 Yes Palur V [place] 500 mg, 1 tab, PO, BID-Meals, Substitution Allowed [facility] hydrochlorothiazide-lisinopril 12.5 mg-10 mg oral tablet 2011-07-27 22:00:27 Yes 1 tab, PO, Daily, Substitution A llowed, Maintenance [facility] simvastatin 2011-07-27 22:00:11 Yes Palur V [place] 20 mg, PO, Bedtime, Substitution Allowed [facility] Vitamin D 50,000 intl units oral capsule 2011-07-27 22:00:01 Yes 50,000 IntlUnit, 1 cap, PO, QFri, Substitution Allowed [facility] ibuprofen 400 mg oral tablet 2011-07-27 21:59:45 Yes 400 mg, 1 tab, PO, TID, PRN, as needed for headache, Substitution Allowed [facility] Saline Flush 0.9% 2011-07-27 20:54:00 No Caden Whiter 5 ml, Route: IVP, Drug Form: INJ, PRN, PRN Line Flush, Start date: 07/27/11 14:54:00, Duration: 24 hr, Stop date: 07/28/11 14:53:00 [facility] aspirin 325 mg tablet 2011-07-27 20:54:00 No Cornelius Hernandez all 325 mg, Route: PO, Drug form: TAB, ONCE, Priority: STAT, Start date: 07/27/11 14:54:00, Stop date: 07/27/11 14:54:00 [facility] Amlodipine Besylate Amlodipine Besylate Yes 10 Daily [facility] Aspirin Aspirin Yes 81 Daily [facility] Atorvastatin Calcium Atorvastatin Calcium Yes 80 Bedtime [facility] Clonidine Clonidine Yes Every 72 Hours [facility] Clopidogrel Bisulfate (Clopidogrel) 75 Mg TABLET Clopi dogrel Bisulfate (Clopidogrel) 75 Mg TABLET Yes 75 Daily [facility] Famotidine Famotidine Yes 20 Every 48 Hours [facility] Lisinopril (Prinavil / Zestril) 20 Mg TABLET Lisinopri l (Prinavil / Zestril) 20 Mg TABLET Yes 20 Every 12 Hours C HI [facility] Nifedipine Nifedipine Yes 20 Daily CH I [facility] Unk Uti Antibiotic Unk Uti Antibiotic 2019-09-10 00:00:00 No [facility] Rivastigmine Tartrate (Rivastigmine) 6 Mg CAPSULE [place] stigmine Tartrate (Rivastigmine) 6 Mg CAPSULE 2019-09-02 00:00:00 No 6 Twice A Day [facility] Alendronate Sodium Alendronate Sodium 2019-08-11 00:00:00 No 70 Weekly [facility] Aspirin Aspirin 2019-08-11 00:00:00 No 325 Daily [facility] Metoprolol Succinate Metoprolol Succinate 2019-08-11 00:00:00 No 12.5 Twice A Day [facility] Pantoprazole Sodium (Protonix) 40 Mg TABLET.DR Allenopr azole Sodium (Protonix) 40 Mg TABLET.DR 2019-08-11 00:00:00 No 40 Daily [facility] Trazodone Hcl Trazodone Hcl 2019-08-11 00:00:00 No 50 Bedtime as needed for Insomnia [facility] Vit D2 60751 Vit D2 69074 2019-08-11 00:00:00 No Weekly [facility] Atorvastatin Atorvastatin 2019-04-19 00:00:00 No 80 Daily [facility] Atorvastatin Calcium Atorvastatin Calcium 2019-04-19 00:00:00 No 40 Bedtime [facility] Glipizide Glipizide 2019-04-19 00:00:00 No 2.5 Daily [facility] Hydrochlorothiazide Hydrochlorothiazide 2019-04-19 00:00:00 No 12.5 Daily [facility] Lisinopril Lisinopril 2019-04-19 00:00:00 No 20 Renetta ly [facility] Glipizide Glipizide 2019-01-05 00:00:00 No 5 Daily [facility] Amlodipine Besylate Amlodipine Besylate 2019-01-02 00:00:00 No 5 Daily [facility] Vital Signs Vital Name Observation Time Observation Value Comments Source Systolic blood pressure 2020-03-04 16:45:00 164 mm[Hg] [facility] Diastolic blood pressure 2020-03-04 16:45:00 77 mm[Hg] [facility] Heart rate 2020-03-04 16:45:00 68 /min [facility] Respiratory rate 2020-03-04 16:45:00 14 /min [facility] Oxygen saturation in Arterial blood by Pulse oximetry 03-04 16:45:00 95 /[facility] temperature 2020-03-04 15:45:00 36.44 Terra [facility] Body weight 2020-03-04 06:50:00 51.665 kg [facility] BMI 2020-03-04 06:50:00 20.83 kg/m2 [facility] Body height 2020-03-04 06:47:00 157.5 cm [facility] Weight 2020-01-05 13:29:00 160 [lb_av] [facility] BMI (Body Mass Index) 2020-01-05 13:29:00 29.3 kg/m2 [facility] Weight 2019-11-17 16:33:00 129 [lb_av] [facility] BMI (Body Mass Index) 2019-11-17 16:33:00 23.6 kg/m2 [facility] Body Temperature 2019-09-10 13:23:00 96.7 [degF] [facility] Systolic (mm Hg) 2019-01-19 18:06:00 [facility] [place] Diastolic (mm Hg) 2019-01-19 18:06:00 [facility] Weight 2019-01-19 15:34:00 [facility] Height 2019-01-19 15:34:00 157.48 cm [facility] BMI Calculated 2019-01-19 15:34:00 [facility] Temperature Oral (F) 2019-01-19 15:34:00 98.0 F [facility] Systolic (mm Hg) 2019-01-19 15:34:00 [facility] Diastolic (mm Hg) 2019-01-19 15:34:00 [facility] Respitory Rate 2019-01-19 15:34:00 [facility] [place] Heart Rate 2019-01-19 15:34:00 [facility] BMI Calculated 2018-10-20 16:23:00 [facility] [place] Weight 2018-10-20 16:23:00 [facility] Height 2018-10-20 16:23:00 154.94 cm [facility] Temperature Oral (F) 2018-10-20 16:23:00 97.9 F [facility] Respitory Rate 2018-10-20 16:23:00 [facility] Heart Rate 2018-10-20 16:23:00 [facility] Systolic (mm Hg) 2018-10-20 16:23:00 [facility] Diastolic (mm Hg) 2018-10-20 16:23:00 [facility] Temperature Oral (F) 2018-10-09 19:23:00 98.0 F [facility] Respitory Rate 2018-10-09 19:23:00 [facility] Heart Rate 2018-10-09 19:23:00 [facility] Weight 2018-10-09 19:23:00 [facility] BMI Calculated 2018-10-09 19:23:00 [facility] [place] Systolic (mm Hg) 2018-10-09 19:23:00 [facility] Diastolic (mm Hg) 2018-10-09 19:23:00 [facility] Height 2018-10-09 19:23:00 157.48 cm [facility] Weight 2018-09-19 16:42:00 [facility] Height 2018-09-19 16:42:00 157.48 cm [facility] BMI Calculated 2018-09-19 16:42:00 [facility] [place] Temperature Oral (F) 2018-09-19 16:42:00 98.5 F [facility] Respitory Rate 2018-09-19 16:42:00 [facility] Heart Rate 2018-09-19 16:42:00 [facility] Systolic (mm Hg) 2018-09-19 16:42:00 [facility] Diastolic (mm Hg) 2018-09-19 16:42:00 [facility] Heart Rate 2014-03-06 08:46:00 [facility] Respitory Rate 2014-03-06 08:46:00 [facility] Diastolic (mm Hg) 2014-03-06 08:46:00 [facility] Systolic (mm Hg) 2014-03-06 08:46:00 [facility] Diastolic (mm Hg) 2014-03-06 03:24:00 [facility] Systolic (mm Hg) 2014-03-06 03:24:00 [facility] Heart Rate 2014-03-06 03:24:00 [facility] Respitory Rate 2014-03-06 03:24:00 [facility] Height 2014-03-05 22:44:00 160.02 cm [facility] BMI Calculated 2014-03-05 22:44:00 [facility] Weight 2014-03-05 22:44:00 [facility] Temperature Oral (F) 2014-03-05 22:44:00 98.3 F [facility] Heart Rate 2014-03-05 22:44:00 [facility] Systolic (mm Hg) 2014-03-05 22:44:00 [facility] Respitory Rate 2014-03-05 22:44:00 [facility] Diastolic (mm Hg) 2014-03-05 22:44:00 [facility] Heart Rate 2013-04-01 18:51:00 [facility] Systolic (mm Hg) 2013-04-01 18:51:00 [facility] Diastolic (mm Hg) 2013-04-01 18:51:00 [facility] Respitory Rate 2013-04-01 18:51:00 [facility] Respitory Rate 2013-04-01 15:19:00 [facility] Diastolic (mm Hg) 2013-04-01 15:19:00 [facility] Heart Rate 2013-04-01 15:19:00 [facility] Systolic (mm Hg) 2013-04-01 15:19:00 [facility] Weight 2013-04-01 14:47:00 [facility] Height 2013-04-01 14:47:00 160.02 cm [facility] Respitory Rate 2013-04-01 14:47:00 [facility] Heart Rate 2013-04-01 14:47:00 [facility] Systolic (mm Hg) 2013-04-01 14:47:00 [facility] Diastolic (mm Hg) 2013-04-01 14:47:00 [facility] Temperature Oral (F) 2013-04-01 14:47:00 98.2 F [facility] Heart Rate 2011-08-01 13:57:00 [facility] Temperature Oral (F) 2011-08-01 13:57:00 98.2 F [facility] Respitory Rate 2011-08-01 13:57:00 [facility] Systolic (mm Hg) 2011-08-01 13:57:00 [facility] Diastolic (mm Hg) 2011-08-01 13:57:00 [facility] Diastolic (mm Hg) 2011-08-01 10:00:00 [facility] Heart Rate 2011-08-01 10:00:00 [facility] Systolic (mm Hg) 2011-08-01 10:00:00 [facility] Respitory Rate 2011-08-01 10:00:00 [facility] Temperature Oral (F) 2011-08-01 10:00:00 97.4 F [facility] Diastolic (mm Hg) 2011-08-01 06:00:00 [facility] Respitory Rate 2011-08-01 06:00:00 [facility] Systolic (mm Hg) 2011-08-01 06:00:00 [facility] Heart Rate 2011-08-01 06:00:00 [facility] Temperature Oral (F) 2011-08-01 06:00:00 98.2 F [facility] Weight 2011-07-28 00:35:00 [facility] Height 2011-07-28 00:35:00 157.48 cm [facility] Weight 2011-07-27 20:46:00 [facility] Height 2011-07-27 20:46:00 157.48 cm [facility] Procedures Procedure Date / Time Performed Performing Clinician [facility] e TRANSFUSION SERVICE REPORT - SCAN 2020-03-05 18:04:26 Provid er, Default Scanning [facility] CREATION,A-V FISTULA 2020-03-04 13:46:00 Wagner Bojorquez [facility] POCT-POTASSIUM 2020-03-04 13:02:00 Wagner Bojorquez [facility] POCT-GLUCOSE METER 2020-03-04 06:52:00 Wagner Bojorquez [facility] POCT-POTASSIUM 2020-03-04 06:49:00 Wagner Bojorquez [facility] BASIC METABOLIC PANEL (7) 2020-03-04 06:43:00 Michael Barahona [facility] MAGNESIUM 2020-03-04 06:43:00 Michael Barahona [facility] PHOSPHORUS 2020-03-04 06:43:00 Michael Barahona [facility] PROTHROMBIN TIME/INR 2020-03-04 06:43:00 Michael Barahona [facility] APTT 2020-03-04 06:43:00 Michael Barahona [facility] TYPE AND SCREEN, AUTOMATED 2020-03-04 06:43:00 Michael Barahona Ed lazaro [facility] CBC W/PLT COUNT & AUTO DIFFERENTIAL 2020-03-04 06:43:00 Sunni Barahona [facility] ECG 12-LEAD 2020-03-03 14:59:08 Unknown, Hl7 Doctor [facility] SARS-COV2/RT-PCR (HS & REF LABS) 2020-03-03 14:58:00 Sanford Barney [facility] HEMOGLOBIN 2020-03-03 14:58:00 Coy Magana [facility] BASIC METABOLIC PANEL (7) 2020-03-03 14:58:00 Coy Magana nd [facility] Computed tomography of brain without radiopaque contrast 2019-12 00:00:[address] [facility] [address] of abdomen and pelvis without contrast 2020-01-05 00:00:00 [facility] Computed tomography of chest without contrast 2020-01-05 00:00:0 [address] [facility] [address] of abdomen and pelvis without contrast 2019-11-17 00:00:00 [facility] PERFORMANCE OF URINARY FILTRATION, <6 HRS/DAY 2019-09-04 00:00:0 0 [facility] Computed tomography of brain without radiopaque contrast 00:00:00 MEENAKSHI GANDHI [facility] CT of abdomen and pelvis without contrast 2019-08-25 00:00:00 [facility] EGD PLACE GASTROSTOMY TUBE 2019-08-10 00:00:00 Dre [facility] HEMODIALYSIS ONE EVALUATION 2019-08-10 00:00:00 [facility] INSERTION OF FEEDING DEVICE INTO STOMACH, PERC APPROACH 00:00:00 [facility] Computed tomography of chest without contrast 2019-07-10 00: 00:00 ABDIRASHID ALFORD [facility] Computed tomography of abdomen without contrast 2019-07-10 00:00 :00 [facility] Computed tomography of brain without radiopaque contrast 00:00:00 NADIA SOW [facility] Computed tomography of chest without contrast 2019-07-03 00: 00:00 ABDIRASHID ALFORD [facility] Magnetic resonance imaging of brain without contrast 2019-06 00:00:00 ABDIRASHID ALFORD [facility] Computed tomography angiography of brain 2019-07-03 00:00:00 NADIA GARCIA [facility] CT angiography of neck 2019-07-03 00:00:00 NADIA SOW [facility] Ultrasound guidance for vascular access 2019-07-01 00:00:00 CELENA HINTON AM [facility] Sedate Initial > 5 Yrs 2019-07-01 00:00:00 MICHAEL BEACH [facility] INSERT OF TUNNEL VAD INTO CHEST SUBCU/FASCIA, PERC APPROACH 2019-07-01 00:00:00 [facility] INSERTION OF INFUSION DEV INTO SUP VENA CAVA, PERC APPROACH 2019-07-01 00:00:00 [facility] EXCISION OF STOMACH, ENDO, DIAGN 2019-06-30 00:00:00 [facility] EXCISION OF STOMACH, PYLORUS, ENDO, DIAGN 2019-06-30 00:00:00 [facility] US abdomen complete 2019-06-29 00:00:00 ABDIRASHID ALFORD [facility] Computed tomography of abdomen without contrast 2019-06-29 00:00 :00 [facility] PERFORMANCE OF URINARY FILTRATION, <6 HRS/DAY 2019-06-27 00:00:0 0 [facility] X-ray of chest, two views 2019-04-17 00:00:00 NATALIA GREEN CH I [facility] Bone density scan<sup>1</sup> 2018-10-15 05:00:00 [facility] Mammogram<sup>2</sup> 2018-10-15 05:00:00 [facility] Diabetic Retinopathy Study 7 field stere oscopic fundus photography<sup>3, 4</sup> 2018-10-08 05:00:00 [facility] Colonoscopy<sup>5</sup> 2014-06-24 00:00:00 [facility] [place] Emergency department visit for the evalu ation and management of a patient, which requires these 3 sullivan components: A detailed history; A detailed examination; and Medical decision making of moderate complexity. Counseling and/or coordination of care with o 2013-04-01 05:00:00 [facility] Therapeutic, prophylactic, or diagnostic injection (specify substance or drug); subcutaneous or intramuscular 2013-04-01 05:00:00 [facility] Hysterectomy<sup>6</sup> 1979-06-24 00:00:00 [facility] [place] Appendectomy [facility] Cholecystectomy [facility] Tubal ligation [facility] Appendectomy [facility] Cholecystectomy [facility] Tubal ligation [facility] Plan of Care Planned Activity Planned Date Details Comments Source Future Scheduled Test 2020-02-23 00:00:00 INFLUENZA VACCINE (#1) [code = INFLUENZA VACCINE (#1)] [facility] Future Scheduled Test 2019-06-24 00:00:00 Medicare IPPE (WEL COME TO MEDICARE) [code = Medicare IPPE (WELCOME TO MEDICARE)] [facility] Future Scheduled Test 2018 00:00:00 PNEUMOCOCCAL 65+ Y RS (1 of 1 - [id number] PCV13) [code = PNEUMOCOCCAL 65+ YRS (1 of 1 - [id number] PCV13)] [facility] Future Scheduled Test 1955 00:00:00 Screening for anna gnant neoplasm of breast (procedure) [code = 290163360] [facility] Future Scheduled Test 1955 00:00:00 Screening for anna gnant neoplasm of colon (procedure) [code = 521809117] [facility] [place] Inst[facility] COVID-19: 09/07/2019 [facility] Instructions Constipation - Adult [facility] Instructions Pneumonia - Viral [facility] Encounters Start Date/Time End Date/Time Encounter Type Admission Type Attendi [facility] Care Department Encounter ID Source 2018-09-30 16:57:58 Outpatient [id number] 2020-03-17 10:00:59 2020-03-17 10:29:55 Office Visit Wagner Menchaca [facility] [id number] 2020-01-21 15:00:00 2020-01-21 15:30:00 Office Visit Wagner Menchaca [facility] [id number] 2020-01-05 13:20:00 2020-01-05 17:33:00 Departed Emergency Room 1 HIRAM [facility] [id number] [facility] 2019-11-17 16:05:00 2019-11-17 21:00:00 Departed Emergency Room 1 HIRAM [facility] [id number] [facility] 2019-09-04 11:14:00 2019-09-10 16:46:00 Discharged Inpatient 1 TEJAL GANDHICox [facility] [id number] [facility] 2019-08-28 09:40:00 2019-08-28 10:27:00 Departed Emergency Room [facility] [id number] [facility] 2019-08-25 16:32:00 2019-08-25 20:42:00 Departed Emergency Room 1 BAEEHSAN [facility] [id number] [facility] 2019-08-10 20:35:00 2019-08-12 20:45:00 Discharged Inpatient (obs) 1 JOSR SAENZ [facility] [id number] I [facility] 2019-07-01 05:10:00 2019-07-14 20:16:00 Discharged Inpatient 1 CELENA CHRISTENSEN [id number] [facility] 2019-07-08 06:33:47 2019-07-09 23:59:59 Outpatient [facility] [id number] 2019-06-22 10:47:00 2019-06-22 15:49:00 Departed Emergency Room 1 HIRAM [facility] [id number] [facility] 2019-05-25 07:37:21 2019-05-26 23:59:59 Outpatient [facility] [id number] 2019-04-17 19:23:00 2019-04-20 10:33:00 Discharged Inpatient 1 MEENAKSHI GANDHI [facility] [id number] [facility] 2019-04-07 12:02:54 2019-04-08 23:59:59 Outpatient [facility] [id number] 2019-01-27 14:36:25 2019-01-28 23:59:59 Outpatient [facility] [id number] 2019-01-19 10:00:00 2019-01-19 23:59:59 Outpatient Ciara Cardoso [facility] [id number] 2019-01-01 16:57:00 2019-01-05 13:11:00 Discharged Inpatient 1 ZAINA GORDON [facility] [id number] [facility] 2018-11-28 16:00:00 2018-11-28 16:00:00 Outpatient Shelton Jackson [facility] [id number] 2018-10-27 16:23:00 2018-10-27 18:01:00 Departed Emergency Room [facility] [id number] [facility] 2018-10-20 11:00:00 2018-10-20 23:59:59 Outpatient Ciara Cardoso [facility] [id number] 2018-10-20 13:00:00 2018-10-20 13:00:00 Outpatient Ciara Cardoso [facility] [id number] 2018-10-15 14:05:00 2018-10-15 23:59:00 Outpatient Ciara Cardoso [facility] [id number] 2018-10-15 14:05:00 2018-10-15 14:05:00 Outpatient [facility] [id number] [facility] 2018-10-09 15:30:00 2018-10-09 23:59:59 Outpatient Ciara Cardoos [facility] [id number] 2018-09-30 15:13:00 2018-10-02 17:49:00 Discharged Inpatient (obs) 1 CHAR GORDONAHAM [facility] [id number] [facility] 2018-09-22 12:25:00 2018-09-22 23:59:00 Outpatient Ciara Cardoso [facility] [id number] 2018-09-22 12:25:00 2018-09-22 12:25:00 Outpatient [facility] MED [id number] [facility] 2018-09-19 11:00:00 2018-09-19 23:59:59 Outpatient Ciara Cardoso [facility] [id number] 2018-07-29 11:33:00 2018-07-29 14:15:00 Departed Emergency Room [facility] [id number] [facility] 2018-07-12 16:59:00 2018-07-18 10:56:00 Discharged Inpatient 1 ZAINA GORDON [facility] [id number] [facility] 2014-03-05 17:41:00 2014-03-06 03:48:00 Outpatient Diego Stanford [facility] [id number] 2013-07-24 13:30:00 2013-07-24 23:59:00 Outpatient [facility] [id number] [facility] Outpatient Guido - Zane 2013-04-01 09:45:00 2013-04-01 14:00:00 Outpatient MHIE [facility] [id number] [facility] 2013-04-01 09:45:00 2013-04-01 14:00:00 Outpatient MOHSEN CONNOLLY [id number] [facility] 2013-04-01 09:45:00 2013-04-01 14:00:00 Outpatient MOHSEN RUPALI [id number] [facility] 2013-04-01 09:45:00 2013-04-01 14:00:00 Outpatient MOHSEN RUPALI [id number] [facility] Results Test Description Test Time Test Comments Results Result Comments Source CT BRAIN WO 2020-04-08 15:25:00 [facility] : 1955 Sex: [place] [address] Patient Name: DEO ESCUDERO MR #: [id number] : 1955 Age/Sex: 65/F Req #: [id number] Adm Physician: Ordered by: Batshvea Schaeffer MD Report #: [id number] Location: Room/Bed: Procedure: [id number] CT/CT BRAIN WO Exam Date: 04/08/20 Exam [...] MD 1543 Transcribed By: SCAR on 04/08/20 1543 COPY TO: BATSHEVA SCHAEFFER MD CHEST SINGLE (PORTABLE) 2020-04-08 15:04:00 [facility] 1955 Sex: [place] [address] Patient Name: DEO ESCUDERO MR #: [id number] : 1955 Age/Sex: 65/F Req #: [id number] Adm Physician: Ordered by: Batsheva Schaeffer MD Report #: [id number] Location: ER Room/Bed: Procedure: [id number] DX/CHEST SINGLE (PORTABLE) Exam Date: 04/08/20 Exam [...] 3:07 PM Dictated By: POPEYE NAVARRO MD [id number] Transcribed By: SCAR on 04/08/20 8754 COPY TO: BATSHEVA SCHAEFFER MD ECG 12 lead 2020-03-05 08:24:49 Interface, E xternal Ris In 03/05/2020 8:24 AM CDTVentricular Rate 87 BPMAtrial Rate 87 BPMP-R Interval 194 msQRS Duration 82 msQ-T Interval 412 msQTC Calculation(Yung) 495 msP Beaver 62 degreesR Beaver 45 degreesT Beaver -5 degreesNormal sinus rhythmNormal ECGNo previous ECGs availableConfirmed by MD STEFANIA, EVITA Chappell ([id number]) on 03/05/2020 8:24:45 AM [facility] POC-Potassium 2020-03-04 13:21:00 Test Item POC-Potassium (test code = 1540) 3.2 meq/L 3.6-5.5 L : TESTED AT [address], [address]: Train Crew Member/Fur Weigher ID = [id number] for ARNOLD MARTINEZ Lab Interpretation (test code = 17435-6) Abnormal [facility][id number] 13:21:00* Test Item Value Reference Range Interpretation Comments POC-POTASSIUM (BEAKER) (test code = 1540) 3.2 meq/L 3.6-5.5 L : TESTED AT [address], [address]: Train Crew Member/Fur Weigher ID = [id number] for ARNOLD MARTINEZ CBC with platelet count + automated [id number] 09:00:00* Test Item Value Reference Range Interpretation [...] 450 K/CU MM MPV (test code = 28366-9) 9.8 fL 9.4-12.3 nRBC (test code = [...] % 0-1 Lab Interpretation (test code = 44202-7) Abnormal [facility] W/PLT COUNT & AUTO [id number] 09:00:00* Test Item Value Reference Range Interpretation [...] 2801) 1 % 0-1 Type and screen, [id number] 08:46:00* Test Item Value Reference Range Interpretation Comments ABO/RH AUTOMATED (BEAKER) (test code = 2260) O POSITIVE Ab Scrn (test code = 890-4) NEGATIVE [facility] [id number] 08:17:00* Test Item Value Reference Range Interpretation [...] 93 mg/dL 70-105 Calcium (test code = 68447-6) 8.7 mg/dL 8.4-10.2 EGFR (test code = 58105-2) 22 mL/min/1.73 sq m ESTIMATED GFR IS NOT ACCURATE CREATININE CLEARANCE IN PREDICTING GLOMERULAR FILTRATION RATE. ESTIMATED GFR IS NOT APPLICABLE FOR DIALYSIS PATIENTS. ALBERTO (test code = ALBERTO) Train Crew Member JORI Nicole Lab Interpretation (test code = 54360-9) [facility]normal [facility] [id number] 08:17:00* Test Item Value Reference Range Interpretation [...] GFR IS NOT APPLICABLE FOR DIALYSIS PATIENTS. Train Crew Member JORI LICONA [id number] 08:13:00* Test Item Value Reference Range Interpretation Comments Magnesium (test code = 52100-8) 1.8 mg/dL 1.6-2.6 ALBERTO (test code = ALBERTO) Train Crew Member JORI Nicole Lab Interpretation (test code = 57371-6) Normal [facility] 08:13:00* Test Item Value Reference Range Interpretation Comments Phosphorus (test code = 2777-1) 2.4 mg/dL 2.3-4.7 ALBERTO (test code = ALBERTO) Train Crew Member JORI Nicole Lab Interpretation (test code = 99065-2) [facility]* Test Item Value Reference Range Interpretation Comments PHOSPHORUS (BEAKER) (test code = 604) 2.4 mg/dL 2.3-4.7 Train Crew Member JORI LICONA NSZXVVMAGM3576-13-03 08:13:00* Test Item Value Reference Range Interpretation Comments MAGNESIUM (BEAKER) (test code = 627) 1.8 mg/dL 1.6-2.6 Train Crew Member ID - LIVAN QUINTEROEJVNQ-UZWAXCPIV5622-84-11 07:13:00* Test Item Value Reference Range Interpretation Comments POC-POTASSIUM (BEAKER) (test code = 1540) 2.6 meq/L 3.6-5.5 LL : TESTED AT [facility] [address] [place] [address], [address]: Train Crew Member/Fur Weigher ID = [id number] for ARNOLD MARTINEZ lGFR1176-09-88 07:05:00* Test Item Value Reference Range Interpretation Comments PTT (test code = 14833-9) 31.4 22.5- 36.0 seconds Lab Interpretation (test code = 90441-3) [facility] 07:05:00* Test Item Value Reference Range Interpretation Comments PARTIAL THROMBOPLASTIN TIME (BEAKER) (test code = 760) 31.4 seconds 22.5-36.0 Prothrombin time/TCA7816-32-25 07:04:00* Test Item Value Reference Range Interpretation [...] heart valves. Lab Interpretation (test code = 79604-3) Normal [facility]PROTHROMBIN TIME/EPG7796-82-48 07:04:00* Test Item Value Reference Range Interpretation [...] for patie nts wiht mechanical heart valves.POC-Glucose abmor0221-81-93 07:03:00* Test Item Value Reference Range Interpretation Comments POC-Glucose Meter (test code = 1538) 91 mg/dL 70-110 : TESTED AT [facility] [address] [facility], [address]: Train Crew Member/Fur Weigher ID = [id number] for ARNOLD MARTINEZ Lab Interpretation (test code = 67632-5) [facility] SVOMN2457-09-10 07:03:00* Test Item Value Reference Range Interpretation Comments POC-GLUCOSE METER (BEAKER) (test code = 1538) 91 mg/dL 70-110 : TESTED AT [place] [id number] [facility], [address]: Train Crew Member/Fur Weigher ID = [id number] for IVONOLARNOLD SARS-CoV2/RT-PCR ([facility])2020-03-03 21:15:00* Test Item Value Reference Range Interpretation Comments SARS-COV2/RT-PCR (test code = 02938-8) Negative N ot Detected, Negative, See external report for linked test SARS-COV-2 PERFORMING LAB (test code = 91875-4) [facility] IRVIN ALBERTO (test code = ALBERTO) Negative [...] of the Act. Fact Sheet for Healthcare Providers:https://www.[employer]/sites/default/files/product/documents/Fact_Shee l_KO_Plmtgnncw_Ueaa_YFZR-HaY-2.pdf Fact Sheet for Healthcare Patients:https://www.[employer]/sites/default/files/pro duct/documents/Eyuf_Zmnqq_Xtrgeolv_Tmjh_NKTB-WmB-5.pdf Performing Laboratory:[facility], [place] [address] [place], [place] [address]ARS-COV2/RT-PCR ([facility])2020-03-03 21:15:00* Test Item Value Reference Range Interpretation Comments SARS-COV2/RT-PCR (test code = 6631666) Negative N ot Detected, Negative, See external report for linked test SARS-COV-2 PERFORMING LAB (test code = 5198823) [facility] IRVIN Negative result for this test determines [...] from individuals suspected of COVID-19 by their [facility] provider.This test has not been Food and Drug Administration (FDA) clear ed or approved. This is a modified version of an approved Emergency Use Authori zation (EUA) and is in the process of review by the FDA. Once authorized by [facility] FDA, the issued EUA will be effective until the declaration that circumstances exist justifying the authorization of the emergency use of in vitro diagnostic tests for detection and/or diagnosis of COVID-19 is terminated under Section 564 (b)(2) of the Act or the EUA is revoked under Section 564(g) of the Act.Fact She et for Healthcare Providers:https://www.[employer]/sites/default/files/product/d ocuments/Quki_Wxbof_WF_Wkcdbwdok_Qcmb_ULZO-LeK-0.pdfFact Sheet for Healthcare [place]:https://www.[employer]/sites/default/files/product/documents/Fact_Sheet_P fuuorch_Enof_GOPT-EzB-0.pdfPerforming Laboratory:[facility] [address] [place], [place] [address]bh[facility].[place], [place] [address]YTWHY METABOLIC BQWTS5042-32-94 15:35:00* Test Item Value Reference Range Interpretation [...] GFR IS NOT APPLICABLE FOR DIALYSIS PATIENTS. Train Crew 15:14:00* Test Item Value Reference Range Interpretation Comments Hemoglobin (test code = 786-4) 11.5 11.2- 15.7 GM/DL ALBERTO (test code = ALBERTO) Train Crew Lab Interpretation (test code = 15660-6) Normal [facility] 15:14:00* Test Item Value Reference Range Interpretation Comments HEMOGLOBIN (BALA) (test code = 410) 11.5 GM/DL 11.2-15.7 Train Crew time (PT) in platelet poor plasma by coagulation rzoou8289-05-77 15:20:00* Test Item Value Reference Range Interpretation Comments Prothrombin Time (test code = 5902-2) 12.2 11.9-14.5 [facility] CenterIN[facility] in Platelet poor plasma by Coagulation rrezc6548-92-00 15:20:00* Test Item Value Reference Range Interpretation Comments Prothromb Time International Ratio (test code = 6301-6) 0.86 Oral Anticoagulant Therapy INR Values:1. Low Intensity Therapy 1.5 - 2.02 . Moderate Intensity Therapy 2.0 - 3.03. High Intensity Therapy(1) 2.5 - 3. 54. High Intensity Therapy(2) 3.0 - 4.05. Panic Value INR > 5.0 [facility] CenterActivated partial thromboplastin time (aPTT) in platelet poor plasma by coagulation jccad0949-18-97 15:20:00* Test Item Value Reference Range Interpretation Comments Activated Partial Thromboplast Time (test code = 35184-3) 73.6 23.8-35.5 [facility] CenterCT ABDOMEN/PELVIS KO2583-97-06 15:19:00 [facility] [address] [place] [address] Patient Name: DEO ESCUDERO MR #: [id number] : 1955 Age/Sex: 64/F Req #: [id number] Adm Physician: Ordered by: MEENAKSHI GANDHI MD Report #: [id number] Location: ER Room/Bed: Procedure: [id number] CT/CT ABDOMEN/PE LVIS WO Exam Date: 01/05/20 [...] COPY TO: MEENAKSHI GANDHI MD CT CHEST [id number] 15:19:00 [place] [address] Patient Name: DEO ESCUDERO MR #: [id number] : 1955 Age/Sex: 64/F Req #: [id number] Adm Physician: Ordered by: MEENAKSHI GANDHI MD Report #: [id number] Location: ER Room/Bed: Procedure: [id number] CT/CT CHEST WO Exam Date: 01/05/20 Exam [...] GANDHI MD CT BRAIN WO 2020-01-05 14:57:00 [place] [address] Patient Name: DEO ESCUDERO MR #: [id number] : 1955 Age/Sex: 64/F [id number] Req #: [id number] Adm Physician: Ordered by: MEENAKSHI GANDHI MD Report #: [id number] Location: ER Room/Bed: Procedure: [id number] CT/CT BRAIN WO Exam Date: 01/05/20 Exam [...] Count (test code = 6690-2) 5.73 4.8-10.8 [facility] CenterBlood erythrocytes automated count (number/volume)2020-01-05 14:05:00* Test Item Value Reference Range Interpretation Comments Red Blood Count (test code = 789-8) 4.29 3.6-5.1 [facility] CenterBlood hemoglobin measurement (moles/volume)2020-01-05 14:05:00* Test Item Value Reference Range Interpretation Comments Hemoglobin (test code = 15249-0) 12.1 12.0-16.0 [facility] CenterAutomated blood hematocrit (volume fraction)2020-01-05 14:05:00* Test Item Value Reference Range Interpretation Comments Hematocrit (test code = 4544-3) 37.9 34.2-44.1 [facility] CenterAutomated erythrocyte mean corpuscular msoofl0173-78-93 14:05:00* Test Item Value Reference Range Interpretation Comments Mean Corpuscular Volume (test code = 787-2) 88.3 81-99 [facility] CenterAutomated erythrocyte mean corpuscular hemoglobin (mass per erythrocyte)2020-01-05 14:05:00* Test Item Value Reference Range Interpretation Comments Mean Corpuscular Hemoglobin (test code = 785-6) 28.2 28-32 [facility] CenterAutomated erythrocyte mean corpuscular hemoglobin concentration measurement (mass/volume)2020-01-05 14:05:00* Test Item Value Reference Range Interpretation Comments Mean Corpuscular Hemoglobin Concent (test code = 786-4) 31.9 31-35 [facility] CenterRDW WisJe-Xxs9051-60-14 14:05:00* Test Item Value Reference Range Interpretation Comments Red Cell Distribution Width (test code = 08945-0) 14.1 11.7 -14.4 [facility] CenterAutomated blood platelet count (count/volume)2020-01-05 14:05:00* Test Item Value Reference Range Interpretation Comments Platelet Count (test code = 777-3) 278 140-360 [facility] CenterAutomated blood segmented neutrophil count as percentage of total xzghtfmeuz7096-99-13 14:05:00* Test Item Value Reference Range Interpretation Comments Neutrophils (%) (Auto) (test code = 72224-4) 77.4 38.7-80.0 [facility] CenterAutomated blood lymphocyte count as percentage ot total apxjrvocdn3059-08-89 14:05:00* Test Item Value Reference Range Interpretation Comments Lymphocytes (%) (Auto) (test code = 736-9) 13.4 18.0-39.1 [facility] CenterAutomated blood monocyte count as percentage of total qfouvericp1551-22-96 14:05:00* Test Item Value Reference Range Interpretation Comments Monocytes (%) (Auto) (test code = 5905-5) 7.0 4.4-11.3 [facility] CenterAutomated blood eosinophil count as percentage of total nvuhcygoxp4443-64-15 14:05:00* Test Item Value Reference Range Interpretation Comments Eosinophils (%) (Auto) (test code = 713-8) 0.7 0.0-6.0 [facility] CenterAutomated blood basophil count as percentage of total bcxeiuqpzm1349-42-44 14:05:00* Test Item Value Reference Range Interpretation Comments Basophils (%) (Auto) (test code = 706-2) 0.3 0.0-1.0 [facility] CenterFluoroscopic procedure less than one hour vvnhxmkt8908-85-71 14:05:00* Test Item Value Reference Range Interpretation Comments IM GRANULOCYTES % (test code = IM GRANULOCYTES %) 1.2 0.0- 1.0 [facility] CenterAutomated blood neutrophil count 2020-01-05 14:05:00* Test Item Value Reference Range Interpretation Comments Neutrophils # (Auto) (test code = 751-8) 4.4 2.1-6.9 [facility] CenterBlood lymphocytes count (number/volume) 2020-01-05 14:05:00* Test Item Value Reference Range Interpretation Comments Lymphocytes # (Auto) (test code = 73088-6) 0.8 1.0-3.2 [facility] CenterBlood monocytes automated count (number/volume)2020-01-05 14:05:00* Test Item Value Reference Range Interpretation Comments Monocytes # (Auto) (test code = 742-7) 0.4 0.2-0.8 [facility] CenterAutomated blood eosinophil count 2020-01-05 14:05:00* Test Item Value Reference Range Interpretation Comments Eosinophils # (Auto) (test code = 711-2) 0.0 0.0-0.4 [facility] CenterAutomated blood basophil count (count/volume)2020-01-05 14:05:00* Test Item Value Reference Range Interpretation Comments Basophils # (Auto) (test code = 704-7) 0.0 0.0-0.1 [facility] CenterFluoroscopic procedure less than one hour sjhfdckl7106-17-72 14:05:00* Test Item Value Reference Range Interpretation Comments Absolute Immature Granulocyte (auto (jake t code = Absolute Immature Granulocyte (auto) 0.07 0-0.1 [facility] CenterUrine color askbhbzbozetg2529-68-61 14:05:00* Test Item Value Reference Range Interpretation Comments Urine Color (test code = 5778-6) YELLOW YELLOW [facility] CenterUrine ixycsxb3779-28-05 14:05:00* Test Item Value Reference Range Interpretation Comments Urine Clarity (test code = 48823-3) SL CLOUDY CLEAR [facility] Cypresspecific gravity of Urine by Test strip 2020-01-05 14:05:00* Test Item Value Reference Range Interpretation Comments Urine Specific [place] (test code = 5811-5) 1.025 1.010-1.02 5 [facility] CenterUrine pH measurement by automated test atnrk1965-57-72 14:05:00* Test Item Value Reference Range Interpretation Comments Urine pH (test code = 95986-2) 6 5-7 [facility] CenterUrine leukocyte esterase detection by mcyntixn7966-04-14 14:05:00* Test Item Value Reference Range Interpretation Comments Urine Leukocyte Esterase (test code = 5799-2) TRACE NEGATIVE [facility] CenterUrine nitrite xpopmemvm3821-73-31 14:05:00* Test Item Value Reference Range Interpretation Comments Urine Nitrite (test code = 61506-4) NEGATIVE NEGATIVE [facility] CenterUrine protein measurement by test strip (mass/volume)2020-01-05 14:05:00* Test Item Value Reference Range Interpretation Comments Urine Protein (test code = 5804-0) >=300 NEGATIVE [facility] CenterUrine glucose wclaoyemo2649-30-04 14:05:00* Test Item Value Reference Range Interpretation Comments Urine Glucose (UA) (test code = 2349-9) NEGATIVE NEGATIVE [facility] CenterUrine ketones detection by automated test xlvoj5215-07-89 14:05:00* Test Item Value Reference Range Interpretation Comments Urine Ketones (test code = 63474-7) TRACE NEGATIVE [facility] CenterUrine urobilinogen measurement by test strip (mass/volume)2020-01-05 14:05:00* Test Item Value Reference Range Interpretation Comments Urine Urobilinogen (test code = 11682-2) 0.2 0.2-1 [facility] CenterUrine total bilirubin measurement (mass/volume)2020-01-05 14:05:00* Test Item Value Reference Range Interpretation Comments Urine Bilirubin (test code = 1978-6) NEGATIVE NEGATIVE [facility] CenterUrine erythrocytes zxgskptpw9699-42-58 14:05:00* Test Item Value Reference Range Interpretation Comments Urine Blood (test code = 24598-0) TRACE NEGATIVE [facility] CenterAutomated urine sediment leukocyte count by microscopy (number/high power field)2020-01-05 14:05:00* Test Item Value Reference Range Interpretation Comments Urine WBC (test code = 5821-4) 0-5 0-5 [facility] CenterErythrocytes detection in urine sediment by light ujxqxuytjz3632-72-85 14:05:00* Test Item Value Reference Range Interpretation Comments Urine RBC (test code = 68343-1) 0-5 0-5 [facility] CenterBacteria detection in urine sediment by light nlemjeifxi4205-95-75 14:05:00* Test Item Value Reference Range Interpretation Comments Urine Bacteria (test code = 44340-7) MANY NONE [facility] CenterEpithelial cells detection in urine sediment by light kgfhypeugm9682-49-24 14:05:00* Test Item Value Reference Range Interpretation Comments Urine Epithelial Cells (test code = 50731-7) NONE NONE [facility]resserum or plasma sodium measurement (moles/volume)2020-01-05 14:05:00* Test Item Value Reference Range Interpretation Comments Sodium Level (test code = 2951-2) 130 136-145 [facility]resserum or plasma potassium measurement (moles/volume)2020-01-05 14:05:00* Test Item Value Reference Range Interpretation Comments Potassium Level (test code = 2823-3) 4.2 3.5-5.1 [facility] Cypresserum or plasma chloride measurement (moles/volume)2020-01-05 14:05:00* Test Item Value Reference Range Interpretation Comments Chloride Level (test code = 2075-0) 100 98-107 [facility] Cypresserum or plasma carbon dioxide, total measurement (moles/volume)2020-01-05 14:05:00* Test Item Value Reference Range Interpretation Comments Carbon Dioxide Level (test code = 2028-9) 15 22-29 [facility] Cypresserum or plasma anion ipx5421-77-88 14:05:00* Test Item Value Reference Range Interpretation Comments Anion Gap (test code = 05291-3) 19.2 8-16 [facility] Cypresserum or plasma urea nitrogen measurement (mass/volume)2020-01-05 14:05:00* Test Item Value Reference Range Interpretation Comments Blood Urea Nitrogen (test code = 3094-0) 30 7-26 [facility] Cypresserum or plasma creatinine measurement (mass/volume)2020-01-05 14:05:00* Test Item Value Reference Range Interpretation Comments Creatinine (test code = 2160-0) 3.66 0.57-1.11 [facility] Cypresserum or plasma urea nitrogen/creatinine mass ijqoy4396-55-81 14:05:00* Test Item Value Reference Range Interpretation Comments BUN/Creatinine Ratio (test code = 3097-3) 8 6-25 [facility] CenterEstimated glomerular filtration rate (GFR) qvjxrwybltmds3989-30-18 14:05:00* Test Item Value Reference Range Interpretation Comments Estimat Glomerular Filtration Rate (test code = 865508500) 12 >60 Ranges were taken from the National Kidney Disease Education Program and the formerly [facility] Kidney Foundation literature.Reference ranges:60 or greater: Gzelmd37-37 ( for 3 consecutive months): Chronic kidney disease 15 or less: Kidney failureMethodist Dallas Medical CenterGlucose ghsyzysgucs3998-47-82 14:05:00* Test Item Value Reference Range Interpretation Comments Glucose Level (test code = AQQ5359) 84 74-118 [facility] Cypresserum or plasma calcium measurement (mass/volume)2020-01-05 14:05:00* Test Item Value Reference Range Interpretation Comments Calcium Level (test code = 25493-4) 8.1 8.4-10.2 [facility] Cypresserum or plasma magnesium measurement (mass/volume)2020-01-05 14:05:00* Test Item Value Reference Range Interpretation Comments Magnesium Level (test code = 89347-5) 1.8 1.3-2.1 [facility] Cypresserum or plasma total bilirubin measurement (mass/volume)2020-01-05 14:05:00* Test Item Value Reference Range Interpretation Comments Total Bilirubin (test code = 1975-2) 0.3 0.2-1.2 [facility] CenterFluoroscopic procedure less than one hour wqkscaer9887-36-91 14:05:00* Test Item Value Reference Range Interpretation Comments Aspartate Amino Transf (AST/SGOT) (test code = Aspartate Amino Transf (AST/SGOT)) 24 5-34 [facility] Cypresserum or plasma alanine aminotransferase measurement (enzymatic activity/volume)2020-01-05 14:05:00* Test Item Value Reference Range Interpretation Comments Alanine Aminotransferase (ALT/SGPT) (test code = 1742-6) 11 0-55 [facility] Cypresserum or plasma protein measurement (mass/volume)2020-01-05 14:05:00* Test Item Value Reference Range Interpretation Comments Total Protein (test code = 2885-2) 7.0 6.5-8.1 [facility] Cypresserum or plasma albumin measurement (mass/volume)2020-01-05 14:05:00* Test Item Value Reference Range Interpretation Comments Albumin (test code = 1751-7) 3.1 3.5-5.0 [facility] CenterPlasma globulin measurement (mass/volume) 2020-01-05 14:05:00* Test Item Value Reference Range Interpretation Comments Globulin (test code = 53626-4) 3.9 2.3-3.5 [facility] Cypresserum or plasma albumin/globulin mass kzrvd2223-33-12 14:05:00* Test Item Value Reference Range Interpretation Comments Albumin/Globulin Ratio (test code = 1759-0) 0.8 0.8-2.0 [facility] Cypresserum or plasma alkaline phosphatase measurement (enzymatic activity/volume)2020-01-05 14:05:00* Test Item Value Reference Range Interpretation Comments Alkaline Phosphatase (test code = 6768-6) 59 40-150 [facility] CenterBNP Khv-gIzi3303-51-14 14:05:00* Test Item Value Reference Range Interpretation Comments B-Type Natriuretic Peptide (test code = 65028-3) 45.9 0-100 [facility] Cypresserum or plasma creatine kinase measurement (enzymatic activity/volume)2020-01-05 14:05:00* Test Item Value Reference Range Interpretation Comments Creatine Kinase (test code = 2157-6) 17 29-168 [facility] Cypresserum or plasma creatine kinase MB measurement (mass/volume)2020-01-05 14:05:00* Test Item Value Reference Range Interpretation Comments Creatine Kinase MB (test code = 97638-5) 0.70 0-5.0 [facility] CenterTroponin I measurement by highly sensitive enzyme vgbqzfxrvgq7531-77-15 14:05:00* Test Item Value Reference Range Interpretation Comments Troponin I (test code = 53375-8) 0.020 0-0.300 [facility] CenterCT ABDOMEN/PELVIS KU3009-42-66 18:14:00 [facility] [address] [address] Patient Name: DEO ESCUDERO MR #: [id number] : 1955 Age/Sex: 64/F Req #: [id number] Adm Physician: Ordered by: MEENAKSHI GANDHI MD Report #: [id number] Location: ER Room/Bed: Procedure: [id number] CT/CT ABDOMEN/PE LVIS WO Exam Date: 11/17/19 [...] MEENAKSHI GANDHI MD CHEST SINGLE (PORTABLE)2019-11-17 17:14:00 [place] [address] Patient Name: DEO ESCUDERO MR #: [id number] : 1955 Age/Sex: 64/F Req #: [id number] Adm Physician: Ordered by: MEENAKSHI GANDHI MD Report #: [id number] Location: ER Room/Bed: Procedure: [id number] DX/CHEST SINGLE (PORTABLE) Exam Date: 11/17/19 Exam Time: 5 REPORT STATUS: Signed Examination: Si ngle AP [...] Count (test code = 6690-2) 10.70 4.8-10.8 [facility] CenterBlood erythrocytes automated count (number/volume)2019-11-17 16:00:00* Test Item Value Reference Range Interpretation Comments Red Blood Count (test code = 789-8) 4.57 3.6-5.1 [facility] CenterBlood hemoglobin measurement (moles/volume)2019-11-17 16:00:00* Test Item Value Reference Range Interpretation Comments Hemoglobin (test code = 52908-1) 13.0 12.0-16.0 [facility] CenterAutomated blood hematocrit (volume fraction)2019-11-17 16:00:00* Test Item Value Reference Range Interpretation Comments Hematocrit (test code = 4544-3) 39.4 34.2-44.1 [facility] CenterAutomated erythrocyte mean corpuscular bggyrq7880-76-09 16:00:00* Test Item Value Reference Range Interpretation Comments Mean Corpuscular Volume (test code = 787-2) 86.2 81-99 [facility] CenterAutomated erythrocyte mean corpuscular hemoglobin (mass per erythrocyte)2019-11-17 16:00:00* Test Item Value Reference Range Interpretation Comments Mean Corpuscular Hemoglobin (test code = 785-6) 28.4 28-32 [facility] CenterAutomated erythrocyte mean corpuscular hemoglobin concentration measurement (mass/volume)2019-11-17 16:00:00* Test Item Value Reference Range Interpretation Comments Mean Corpuscular Hemoglobin Concent (test code = 786-4) 33.0 31-35 [facility] CenterRDW NliUi-Mwt6788-28-26 16:00:00* Test Item Value Reference Range Interpretation Comments Red Cell Distribution Width (test code = 71173-3) 14.4 11.7 -14.4 [facility] CenterAutomated blood platelet count (count/volume)2019-11-17 16:00:00* Test Item Value Reference Range Interpretation Comments Platelet Count (test code = 777-3) 501 140-360 [facility] CenterAutomated blood segmented neutrophil count as percentage of total zcxkmeoome8080-30-93 16:00:00* Test Item Value Reference Range Interpretation Comments Neutrophils (%) (Auto) (test code = 27392-2) 63.6 38.7-80.0 [facility] CenterAutomated blood lymphocyte count as percentage ot total kejudwqtuk2190-55-73 16:00:00* Test Item Value Reference Range Interpretation Comments Lymphocytes (%) (Auto) (test code = 736-9) 27.8 18.0-39.1 [facility] CenterAutomated blood monocyte count as percentage of total nwydkaxmhm4118-75-81 16:00:00* Test Item Value Reference Range Interpretation Comments Monocytes (%) (Auto) (test code = 5905-5) 4.5 4.4-11.3 [facility] CenterAutomated blood eosinophil count as percentage of total hffdmwzouv2765-65-37 16:00:00* Test Item Value Reference Range Interpretation Comments Eosinophils (%) (Auto) (test code = 713-8) 2.8 0.0-6.0 [facility] CenterAutomated blood basophil count as percentage of total ewmtrlkwnd1123-97-62 16:00:00* Test Item Value Reference Range Interpretation Comments Basophils (%) (Auto) (test code = 706-2) 0.9 0.0-1.0 [facility] CenterFluoroscopic procedure less than one hour rortagqh5628-73-58 16:00:00* Test Item Value Reference Range Interpretation Comments IM GRANULOCYTES % (test code = IM GRANULOCYTES %) 0.4 0.0- 1.0 [facility] CenterAutomated blood neutrophil count 2019-11-17 16:00:00* Test Item Value Reference Range Interpretation Comments Neutrophils # (Auto) (test code = 751-8) 6.8 2.1-6.9 [facility] CenterBlood lymphocytes count (number/volume) 2019-11-17 16:00:00* Test Item Value Reference Range Interpretation Comments Lymphocytes # (Auto) (test code = 32974-6) 3.0 1.0-3.2 [facility] CenterBlood monocytes automated count (number/volume)2019-11-17 16:00:00* Test Item Value Reference Range Interpretation Comments Monocytes # (Auto) (test code = 742-7) 0.5 0.2-0.8 [facility] CenterAutomated blood eosinophil count 2019-11-17 16:00:00* Test Item Value Reference Range Interpretation Comments Eosinophils # (Auto) (test code = 711-2) 0.3 0.0-0.4 [facility] CenterAutomated blood basophil count (count/volume)2019-11-17 16:00:00* Test Item Value Reference Range Interpretation Comments Basophils # (Auto) (test code = 704-7) 0.1 0.0-0.1 [facility] CenterFluoroscopic procedure less than one hour qnvzqohy7528-26-42 16:00:00* Test Item Value Reference Range Interpretation Comments Absolute Immature Granulocyte (auto (jake t code = Absolute Immature Granulocyte (auto) 0.04 0-0.1 [facility] CenterProthrombin time (PT) in platelet poor plasma by coagulation igcte2147-65-20 16:00:00* Test Item Value Reference Range Interpretation Comments Prothrombin Time (test code = 5902-2) 12.1 11.9-14.5 [facility] CenterINR in Platelet poor plasma by Coagulation ndokc2023-01-13 16:00:00* Test Item Value Reference Range Interpretation Comments Prothromb Time International Ratio (test code = 6301-6) 0.85 Oral Anticoagulant Therapy INR Values:1. Low Intensity Therapy 1.5 - 2.02 . Moderate Intensity Therapy 2.0 - 3.03. High Intensity Therapy(1) 2.5 - 3. 54. High Intensity Therapy(2) 3.0 - 4.05. Panic Value INR > 5.0 [facility] CenterActivated partial thromboplastin time (aPTT) in platelet poor plasma by coagulation oiqja9442-17-94 16:00:00* Test Item Value Reference Range Interpretation Comments Activated Partial Thromboplast Time (test code = 72750-1) 29.2 23.8-35.5 [facility]um or plasma sodium measurement (moles/volume)2019-11-17 16:00:00* Test Item Value Reference Range Interpretation Comments Sodium Level (test code = 2951-2) 142 136-145 [facility]resserum or plasma potassium measurement (moles/volume)2019-11-17 16:00:00* Test Item Value Reference Range Interpretation Comments Potassium Level (test code = 2823-3) 3.7 3.5-5.1 [facility]resserum or plasma chloride measurement (moles/volume)2019-11-17 16:00:00* Test Item Value Reference Range Interpretation Comments Chloride Level (test code = 2075-0) 101 98-107 [facility]resserum or plasma carbon dioxide, total measurement (moles/volume)2019-11-17 16:00:00* Test Item Value Reference Range Interpretation Comments Carbon Dioxide Level (test code = 2028-9) 26 22-29 [facility]resserum or plasma anion tqn5414-81-31 16:00:00* Test Item Value Reference Range Interpretation Comments Anion Gap (test code = 75510-4) 18.7 8-16 [facility]resserum or plasma urea nitrogen measurement (mass/volume)2019-11-17 16:00:00* Test Item Value Reference Range Interpretation Comments Blood Urea Nitrogen (test code = 3094-0) 36 7-26 [facility]resserum or plasma creatinine measurement (mass/volume)2019-11-17 16:00:00* Test Item Value Reference Range Interpretation Comments Creatinine (test code = 2160-0) 3.62 0.57-1.11 [facility]resserum or plasma urea nitrogen/creatinine mass zgcno1573-94-64 16:00:00* Test Item Value Reference Range Interpretation Comments BUN/Creatinine Ratio (test code = 3097-3) 10 6-25 [facility] CenterEstimated glomerular filtration rate (GFR) hrzwmqwpmqenc1264-69-19 16:00:00* Test Item Value Reference Range Interpretation Comments Estimat Glomerular Filtration Rate (test code = 287316287) 13 >60 Ranges were taken from the National Kidney Disease Education Program and the formerly [facility] Kidney Foundation literature.Reference ranges:60 or greater: Tldwcb99-64 ( for 3 consecutive months): Chronic kidney disease 15 or less: Kidney failureMethodist Dallas Medical CenterGlucose bjugxrxvggv3949-25-03 16:00:00* Test Item Value Reference Range Interpretation Comments Glucose Level (test code = NSE5236) 114 74-118 [facility]resserum or plasma calcium measurement (mass/volume)2019-11-17 16:00:00* Test Item Value Reference Range Interpretation Comments Calcium Level (test code = 89959-7) 10.0 8.4-10.2 [facility]resserum or plasma magnesium measurement (mass/volume)2019-11-17 16:00:00* Test Item Value Reference Range Interpretation Comments Magnesium Level (test code = 95158-7) 2.0 1.3-2.1 [facility]resserum or plasma total bilirubin measurement (mass/volume)2019-11-17 16:00:00* Test Item Value Reference Range Interpretation Comments Total Bilirubin (test code = 1975-2) 0.5 0.2-1.2 [facility] CenterFluoroscopic procedure less than one hour gnwubcqy0352-89-77 16:00:00* Test Item Value Reference Range Interpretation Comments Aspartate Amino Transf (AST/SGOT) (test code = Aspartate Amino Transf (AST/SGOT)) 16 5-34 [facility] Cypresserum or plasma alanine aminotransferase measurement (enzymatic activity/volume)2019-11-17 16:00:00* Test Item Value Reference Range Interpretation Comments Alanine Aminotransferase (ALT/SGPT) (test code = 1742-6) 11 0-55 [facility] Cypresserum or plasma protein measurement (mass/volume)2019-11-17 16:00:00* Test Item Value Reference Range Interpretation Comments Total Protein (test code = 2885-2) 7.7 6.5-8.1 [facility]resserum or plasma albumin measurement (mass/volume)2019-11-17 16:00:00* Test Item Value Reference Range Interpretation Comments Albumin (test code = 1751-7) 3.8 3.5-5.0 [facility] CenterPlasma globulin measurement (mass/volume) 2019-11-17 16:00:00* Test Item Value Reference Range Interpretation Comments Globulin (test code = 03297-3) 3.9 2.3-3.5 [facility]resserum or plasma albumin/globulin mass cmaqs7953-52-50 16:00:00* Test Item Value Reference Range Interpretation Comments Albumin/Globulin Ratio (test code = 1759-0) 1.0 0.8-2.0 [facility]resserum or plasma alkaline phosphatase measurement (enzymatic activity/volume)2019-11-17 16:00:00* Test Item Value Reference Range Interpretation Comments Alkaline Phosphatase (test code = 6768-6) 74 40-150 [facility] Cypresserum or plasma creatine kinase measurement (enzymatic activity/volume)2019-11-17 16:00:00* Test Item Value Reference Range Interpretation Comments Creatine Kinase (test code = 2157-6) 13 29-168 [facility] Cypresserum or plasma creatine kinase MB measurement (mass/volume)2019-11-17 16:00:00* Test Item Value Reference Range Interpretation Comments Creatine Kinase MB (test code = 68696-0) 0.80 0-5.0 [facility] CenterTroponin I measurement by highly sensitive enzyme wxbekptcozu6753-42-58 16:00:00* Test Item Value Reference Range Interpretation Comments Troponin I (test code = 49955-7) 0.031 0-0.300 [facility] CenterBedside Zmccltq3376-98-88 11:56:00* Test Item Value Reference Range Interpretation Comments Bedside Glucose (test code = 12955-5) 89 70-120 Meter ID: [id number] [facility] PointeCapillary blood glucose measurement by glucometer (mass/volume)2019-09-10 07:11:00* Test Item Value Reference Range Interpretation Comments Bedside Glucose (test code = 71858-1) 89 70-120 Meter ID: [id number] [facility] PointeCapillary blood glucose measurement by glucometer (mass/volume)2019-09-10 07:11:00* Test Item Value Reference Range Interpretation Comments Bedside Glucose (test code = 21005-3) 89 70-120 Meter ID: [id number] [facility]neerum or plasma hepatitis B virus surface antigen detection by jqvsznzlcds0181-27-26 19:30:00* Test Item Value Reference Range Interpretation Comments Hepatitis B Surface Antigen (test code = 5196-1) Negative Negat francois Performed at: [facility] [id number] Director: Kevin Lino MD, Phone: [phone] [facility] Healthcare [facility] Cypresserum or plasma hepatitis B virus surface antigen detection by immunoassay 2019-09-09 19:30:00* Test Item Value Reference Range Interpretation Comments Hepatitis B Surface Antigen (test code = 5196-1) Negative Negat francois Performed at: - [address] [id number] Director: Kevin Lino MD, Phone: [phone] [facility] Medical CenterHepatitis Be Ilpiypzd9914-42-79 15:30:00* Test Item Value Reference Range Interpretation Comments Hepatitis Be Antibody (test code = 79636-9) Negative Negative Performed at: - Lab[address] [id number] Partnership Development Manager: Kanika Corrales MD, Phone: [phone] Dallas Medical CenterHepatitis B Surface Antibody, Bcooy9351-64-08 10:48:00* Test Item Value Reference Range Interpretation Comments Hepatitis B Surface Antibody, Quant (test code = 5194-6) <3.1 Immunity>9.9 L Status of Immunity Anti-HBs Level Inconsistent with Immunity 0.0 - 9.9Consistent with Immunity >9.9CHI [facility] PointeHepatibristol regional medical center B Core Total Qbgpbdjh8538-03-98 10:48:00* Test Item Value Reference Range Interpretation Comments Hepatitis B Core Total Antibody (test code = 11778-5) Negative Negative [facility] Core IgM Huxdmlmk6236-39-20 10:48:00* Test Item Value Reference Range Interpretation Comments Hepatitis B Core IgM Antibody (test code = 81804-0) Negative Ne gative Performed at: [employer] [facility] [id number] Director: Kevin Lino MD, Phone: [phone] [facility] Healthcare North Cypressodium Upkop7103-21-90 06:01:00* Test Item Value Reference Range Interpretation Comments Sodium Level (test code = 2951-2) 136 136-145 [facility] CenterPotassium Fgdfu9120-84-64 06:01:00* Test Item Value Reference Range Interpretation Comments Potassium Level (test code = 2823-3) 3.7 3.5-5.1 [facility] CenterChloride Ttfjj8296-67-10 06:01:00* Test Item Value Reference Range Interpretation Comments Chloride Level (test code = 2075-0) 103 98-107 [facility] CenterCarbon Dioxide Nvapy8485-13-46 06:01:00* Test Item Value Reference Range Interpretation Comments Carbon Dioxide Level (test code = 2028-9) 26 22-29 [facility] CenterAnion Qlv4073-77-38 06:01:00* Test Item Value Reference Range Interpretation Comments Anion Gap (test code = 25520-3) 10.7 8-16 [facility] CenterBlood Urea Ybcppxkg2526-04-84 06:01:00* Test Item Value Reference Range Interpretation Comments Blood Urea Nitrogen (test code = 3094-0) 32 7-26 H [facility] CenterCreatinine2020-03-16 06:01:00* Test Item Value Reference Range Interpretation Comments Creatinine (test code = 2160-0) 4.40 0.57-1.11 H [facility] CenterBUN/Creatinine Djvpq5029-67-74 06:01:00* Test Item Value Reference Range Interpretation Comments BUN/Creatinine Ratio (test code = 3097-3) 7 6-25 [facility] CenterEstimat Glomerular Filtration Rate 2019-09-07 06:01:00* Test Item Value Reference Range Interpretation Comments Estimat Glomerular Filtration Rate (test code = 419361198) 10 >60 L Ranges were taken from the National Kidney Disease Education Program and the formerly [facility] Kidney Foundation literature.Reference ranges:60 or greater: Jpnekp45-23 ( for 3 consecutive months): Chronic kidney disease 15 or less: Kidney failureMethodist [facility] Medical CenterGlucose Zsopd8081-50-84 06:01:00* Test Item Value Reference Range Interpretation Comments Glucose Level (test code = IOX8743) 84 74-118 [facility] CenterCalcium Dxaxu1071-02-64 06:01:00* Test Item Value Reference Range Interpretation Comments Calcium Level (test code = 99754-8) 9.0 8.4-10.2 [facility] CenterMagnesium Sguho8693-09-03 06:01:00* Test Item Value Reference Range Interpretation Comments Magnesium Level (test code = 78230-3) 2.0 1.3-2.1 [facility] CenterTotal Kjwlidzot8437-20-69 06:01:00* Test Item Value Reference Range Interpretation Comments Total Bilirubin (test code = 1975-2) 0.6 0.2-1.2 [facility] CenterAspartate Amino Transf (AST/SGOT) 2019-09-07 06:01:00* Test Item Value Reference Range Interpretation Comments Aspartate Amino Transf (AST/SGOT) (test code = Aspartate Amino Transf (AST/SGOT)) 18 5-34 [facility] CenterAlanine Aminotransferase (ALT/SGPT) 2019-09-07 06:01:00* Test Item Value Reference Range Interpretation Comments Alanine Aminotransferase (ALT/SGPT) (test code = 1742-6) 19 0-55 [facility] CenterTotal Btnmokc7679-37-92 06:01:00* Test Item Value Reference Range Interpretation Comments Total Protein (test code = 2885-2) 6.2 6.5-8.1 L [facility] CenterAlbumin2020-03-16 06:01:00* Test Item Value Reference Range Interpretation Comments Albumin (test code = 1751-7) 2.8 3.5-5.0 L [facility] CenterGlobulin2020-03-16 06:01:00* Test Item Value Reference Range Interpretation Comments Globulin (test code = 88533-8) 3.4 2.3-3.5 [facility] CenterAlbumin/Globulin Huqal1825-48-41 06:01:00 * Test Item Value Reference Range Interpretation Comments Albumin/Globulin Ratio (test code = 1759-0) 0.8 0.8-2.0 [facility] CenterAlkaline Iarxxceroor0993-31-34 06:01:00* Test Item Value Reference Range Interpretation Comments Alkaline Phosphatase (test code = 6768-6) 74 40-150 [facility] CenterWhite Blood Xqftn1847-92-66 05:47:00* Test Item Value Reference Range Interpretation Comments White Blood Count (test code = 6690-2) 9.44 4.8-10.8 [facility] CenterRed Blood Udgxs6165-85-68 05:47:00* Test Item Value Reference Range Interpretation Comments Red Blood Count (test code = 789-8) 4.58 3.6-5.1 [facility] CenterHemoglobin2020-03-16 05:47:00* Test Item Value Reference Range Interpretation Comments Hemoglobin (test code = 12279-5) 12.9 12.0-16.0 [facility] CenterHematocrit2020-03-16 05:47:00* Test Item Value Reference Range Interpretation Comments Hematocrit (test code = 4544-3) 40.4 34.2-44.1 [facility] CenterMean Corpuscular Fwvlse4208-45-97 05:47:00* Test Item Value Reference Range Interpretation Comments Mean Corpuscular Volume (test code = 787-2) 88.2 81-99 [facility] CenterMean Corpuscular Kyiqwfqups6774-95-65 05:47:00* Test Item Value Reference Range Interpretation Comments Mean Corpuscular Hemoglobin (test code = 785-6) 28.2 28-32 [facility] CenterMean Corpuscular Hemoglobin Concent 2019-09-07 05:47:00* Test Item Value Reference Range Interpretation Comments Mean Corpuscular Hemoglobin Concent (test code = 786-4) 31.9 31-35 [facility] CenterRed Cell Distribution Rzziq2252-28-03 05:47:00* Test Item Value Reference Range Interpretation Comments Red Cell Distribution Width (test code = 50531-3) 15.8 11.7 -14.4 H [facility] CenterPlatelet Wpihn3173-86-47 05:47:00* Test Item Value Reference Range Interpretation Comments Platelet Count (test code = 777-3) 355 140-360 [facility] CenterNeutrophils (%) (Auto)2019-09-07 05:47:00 * Test Item Value Reference Range Interpretation Comments Neutrophils (%) (Auto) (test code = 75013-1) 62.4 38.7-80.0 [facility] CenterLymphocytes (%) (Auto)2019-09-07 05:47:00 * Test Item Value Reference Range Interpretation Comments Lymphocytes (%) (Auto) (test code = 736-9) 24.4 18.0-39.1 [facility] CenterMonocytes (%) (Auto)2019-09-07 05:47:00* Test Item Value Reference Range Interpretation Comments Monocytes (%) (Auto) (test code = 5905-5) 6.1 4.4-11.3 [facility] CenterEosinophils (%) (Auto)2019-09-07 05:47:00 * Test Item Value Reference Range Interpretation Comments Eosinophils (%) (Auto) (test code = 713-8) 5.8 0.0-6.0 [facility] CenterBasophils (%) (Auto)2019-09-07 05:47:00* Test Item Value Reference Range Interpretation Comments Basophils (%) (Auto) (test code = 706-2) 1.0 0.0-1.0 [facility] CenterIM GRANULOCYTES %2019-09-07 05:47:00* Test Item Value Reference Range Interpretation Comments IM GRANULOCYTES % (test code = IM GRANULOCYTES %) 0.3 0.0- 1.0 [facility] CenterNeutrophils # (Auto)2019-09-07 05:47:00* Test Item Value Reference Range Interpretation Comments Neutrophils # (Auto) (test code = 751-8) 5.9 2.1-6.9 [facility] CenterLymphocytes # (Auto)2019-09-07 05:47:00* Test Item Value Reference Range Interpretation Comments Lymphocytes # (Auto) (test code = 44985-0) 2.3 1.0-3.2 [facility] CenterMonocytes # (Auto)2019-09-07 05:47:00* Test Item Value Reference Range Interpretation Comments Monocytes # (Auto) (test code = 742-7) 0.6 0.2-0.8 [facility] CenterEosinophils # (Auto)2019-09-07 05:47:00* Test Item Value Reference Range Interpretation Comments Eosinophils # (Auto) (test code = 711-2) 0.6 0.0-0.4 H [facility] CenterBasophils # (Auto)2019-09-07 05:47:00* Test Item Value Reference Range Interpretation Comments Basophils # (Auto) (test code = 704-7) 0.1 0.0-0.1 [facility] CenterAbsolute Immature Granulocyte (auto 2019-09-07 05:47:00* Test Item Value Reference Range Interpretation Comments Absolute Immature Granulocyte (auto (jake t code = Absolute Immature Granulocyte (auto) 0.03 0-0.1 [facility] Cypresserum hepatitis B virus surface antibody assay by radioimmunoassay (units/volume)2019-09-04 22:15:00* Test Item Value Reference Range Interpretation Comments Hepatitis B Surface Antibody, Quant (test code = 5194-6) <3.1 Immunity>9.9 Status of Immunity Anti-HBs Level Inconsistent with Immunity 0.0 - 9.9Consistent with Immunity >9.9[facility] PointeQualitative serum or plasma hepatitis B virus e antibody by enzyme doajshowpta8985-69-01 22:15:00* Test Item Value Reference Range Interpretation Comments Hepatitis Be Antibody (test code = 25904-4) Negative Negative Performed at: [employer] [address] [id number] Partnership Development Manager: Kanika Corrales MD, Phone: [phone] [facility] Healthcare North Cypresserum or plasma hepatitis B virus core antibody detection by kvllhgyrpiy7805-29-03 22:15:00* Test Item Value Reference Range Interpretation Comments Hepatitis B Core Total Antibody (test code = 89559-3) Negative Negative [facility] Cypresserum or plasma hepatitis B virus core IgM antibody detection by yxbhuhcuctv7756-38-98 22:15:00* Test Item Value Reference Range Interpretation Comments Hepatitis B Core IgM Antibody (test code = 47493-0) Negative Ne gative Performed at: [employer] [id number] Director: Kevin Lino MD, Phone: [phone] [facility] Healthcare North Cypresserum hepatitis B virus surface antibody assay by radioimmunoassay (units/volume)2019-09-04 22:15:00* Test Item Value Reference Range Interpretation Comments Hepatitis B Surface Antibody, Quant (test code = 5194-6) <3.1 Immunity>9.9 Status of Immunity Anti-HBs Level Inconsistent with Immunity 0.0 - 9.9Consistent with Immunity >9.9[facility] PointeQualitative serum or plasma hepatitis B virus e antibody by enzyme kkbpwpxeqpg2136-47-39 22:15:00* Test Item Value Reference Range Interpretation Comments Hepatitis Be Antibody (test code = 50373-9) Negative Negative Performed at: [employer] [id number] Partnership Development Manager: Kanika Corrales MD, Phone: [phone] [facility] Healthcare [facility] Cypresserum or plasma hepatitis B virus core antibody detection by lyftrpzfube3638-74-08 22:15:00* Test Item Value Reference Range Interpretation Comments Hepatitis B Core Total Antibody (test code = 33792-5) Negative Negative [facility] Cypresserum or plasma hepatitis B virus core IgM antibody detection by kahfqtetdjc8230-05-89 22:15:00* Test Item Value Reference Range Interpretation Comments Hepatitis B Core IgM Antibody (test code = 28246-2) Negative Ne gative Performed at: - [facility] [id number] Director: Kevin Lino MD, Phone: [phone] CenterPhosphorus Ukkdw6578-31-18 06:16:00* Test Item Value Reference Range Interpretation Comments Phosphorus Level (test code = KPJ6545) 3.3 2.3-4.7 [facility] CenterPhosphorus zlrucxzyhlb0709-17-17 05:25:00 * Test Item Value Reference Range Interpretation Comments Phosphorus Level (test code = ERS5618) 3.3 2.3-4.7 [facility] CenterPhosphorus aedruwljjtm6986-98-78 05:25:00 * Test Item Value Reference Range Interpretation Comments Phosphorus Level (test code = HRC5619) 3.3 2.3-4.7 [facility] CenterTriglycerides Kljkf1969-95-07 09:23:00* Test Item Value Reference Range Interpretation Comments Triglycerides Level (test code = 2571-8) 112 0-149 [facility] CenterCholesterol Cvvqc9619-08-38 09:23:00* Test Item Value Reference Range Interpretation Comments Cholesterol Level (test code = 2093-3) 100 0-199 Less than 200 mg/dL Low Bduo991 - 239 mg/dL Borderline Zyck848 m g/dl and greater High Risk [facility] CenterLDL Dytwnfhdoqv4214-73-67 09:23:00* Test Item Value Reference Range Interpretation Comments LDL Cholesterol (test code = 2089-1) 45 60-130 L [facility] CenterHDL Krlzjnnaoxi2019-66-45 09:23:00* Test Item Value Reference Range Interpretation Comments HDL Cholesterol (test code = 2085-9) 33 40-60 L [facility] CenterCholesterol/HDL Tkfbq8316-58-31 09:23:00 * Test Item Value Reference Range Interpretation Comments Cholesterol/HDL Ratio (test code = 9830-1) 3.0 3.0-3.6 [facility]resserum or plasma triglyceride measurement (mass/volume)2019-09-03 08:10:00* Test Item Value Reference Range Interpretation Comments Triglycerides Level (test code = 2571-8) 112 0-149 [facility] Cypresserum or plasma cholesterol measurement (mass/volume)2019-09-03 08:10:00* Test Item Value Reference Range Interpretation Comments Cholesterol Level (test code = 2093-3) 100 0-199 Less than 200 mg/dL Low Idpd933 - 239 mg/dL Borderline Slxq973 m g/dl and greater High Risk [facility]resserum or plasma cholesterol in LDL measurement (mass/volume) 2019-09-03 08:10:00* Test Item Value Reference Range Interpretation Comments LDL Cholesterol (test code = 2089-1) 45 60-130 [facility] Cypresserum or plasma cholesterol in HDL measurement (mass/volume)2019-09-03 08:10:00* Test Item Value Reference Range Interpretation Comments HDL Cholesterol (test code = 2085-9) 33 40-60 [facility] Cypresserum or plasma total cholesterol/cholesterol in HDL mass xrtjl8346-76-91 08:10:00* Test Item Value Reference Range Interpretation Comments Cholesterol/HDL Ratio (test code = 9830-1) 3.0 3.0-3.6 [facility] Cypresserum or plasma triglyceride measurement (mass/volume)2019-09-03 08:10:00* Test Item Value Reference Range Interpretation Comments Triglycerides Level (test code = 2571-8) 112 0-149 [facility] Cypresserum or plasma cholesterol measurement (mass/volume)2019-09-03 08:10:00* Test Item Value Reference Range Interpretation Comments Cholesterol Level (test code = 2093-3) 100 0-199 Less than 200 mg/dL Low Zwtn472 - 239 mg/dL Borderline Kqxp356 m g/dl and greater High Risk [facility] Cypresserum or plasma cholesterol in LDL measurement (mass/volume) 2019-09-03 08:10:00* Test Item Value Reference Range Interpretation Comments LDL Cholesterol (test code = 2089-1) 45 60-130 [facility] Cypresserum or plasma cholesterol in HDL measurement (mass/volume)2019-09-03 08:10:00* Test Item Value Reference Range Interpretation Comments HDL Cholesterol (test code = 2085-9) 33 40-60 [facility] Cypresserum or plasma total cholesterol/cholesterol in HDL mass lxnre2378-19-64 08:10:00* Test Item Value Reference Range Interpretation Comments Cholesterol/HDL Ratio (test code = 9830-1) 3.0 3.0-3.6 [facility] Iaxnm5201-57-96 06:31:00* Test Item Value Reference Range Interpretation Comments Urine Color (test code = 5778-6) YELLOW YELLOW [facility] Xlytzia3989-22-19 06:31:00* Test Item Value Reference Range Interpretation Comments Urine Clarity (test code = 49951-5) TURBID CLEAR H [facility] CenterU[facility] Specific Inbooer2202-80-07 06:31:00 * Test Item Value Reference Range Interpretation Comments Urine Specific [place] (test code = 5811-5) 1.025 1.010-1.02 5 [facility] cU8228-26-54 06:31:00* Test Item Value Reference Range Interpretation Comments Urine pH (test code = 98890-2) 5.5 5-7 [facility] Leukocyte Mupdgueg4503-76-31 06:31:00* Test Item Value Reference Range Interpretation Comments Urine Leukocyte Esterase (test code = 5799-2) TRACE NEGATIVE H [facility] Uuxbbus0750-90-03 06:31:00* Test Item Value Reference Range Interpretation Comments Urine Nitrite (test code = 40906-9) NEGATIVE NEGATIVE [facility] Kfduutr4496-66-70 06:31:00* Test Item Value Reference Range Interpretation Comments Urine Protein (test code = 5804-0) 3+ NEGATIVE H [facility] Glucose (UA)2019-09-03 06:31:00* Test Item Value Reference Range Interpretation Comments Urine Glucose (UA) (test code = 2349-9) NEGATIVE NEGATIVE [facility] Rewqfcd4615-27-94 06:31:00* Test Item Value Reference Range Interpretation Comments Urine Ketones (test code = 73698-8) 1+ NEGATIVE H [facility] Exbalmduszek7852-81-62 06:31:00* Test Item Value Reference Range Interpretation Comments Urine Urobilinogen (test code = 25818-0) 0.2 0.2-1 [facility] Fnuvihovr4504-73-88 06:31:00* Test Item Value Reference Range Interpretation Comments Urine Bilirubin (test code = 1978-6) SMALL NEGATIVE [facility] Jwvzi7119-54-00 06:31:00* Test Item Value Reference Range Interpretation Comments Urine Blood (test code = 36001-0) MODERATE NEGATIVE [facility] MWI2388-21-21 06:31:00* Test Item Value Reference Range Interpretation Comments Urine WBC (test code = 5821-4) 11-20 0-5 H [facility] RHD8480-10-06 06:31:00* Test Item Value Reference Range Interpretation Comments Urine RBC (test code = 20702-0) 21-50 0-5 H [facility] Mldvmhku1037-46-96 06:31:00* Test Item Value Reference Range Interpretation Comments Urine Bacteria (test code = 34548-2) MODERATE NONE H [facility] Epithelial Lnegq0024-41-34 06:31:00 * Test Item Value Reference Range Interpretation Comments Urine Epithelial Cells (test code = 97887-0) RARE NONE [facility] Amorphous Bqkphmor3327-63-36 06:31:00* Test Item Value Reference Range Interpretation Comments Urine Amorphous Sediment (test code = 8246-1) FEW FEW [facility] color yehebkiewymks2304-54-18 05:25:00* Test Item Value Reference Range Interpretation Comments Urine Color (test code = 5778-6) YELLOW YELLOW [facility] nekyipp0106-30-38 05:25:00* Test Item Value Reference Range Interpretation Comments Urine Clarity (test code = 80497-0) TURBID CLEAR [facility] gravity of Urine by Test strip 2019-09-03 05:25:00* Test Item Value Reference Range Interpretation Comments Urine Specific [place] (test code = 5811-5) 1.025 1.010-1.02 5 [facility] CenterU[facility] pH measurement by automated test ldvbx1733-59-85 05:25:00* Test Item Value Reference Range Interpretation Comments Urine pH (test code = 90045-1) 5.5 5-7 [facility] CenterU[facility] leukocyte esterase detection by rkyamwcw7337-13-71 05:25:00* Test Item Value Reference Range Interpretation Comments Urine Leukocyte Esterase (test code = 5799-2) TRACE NEGATIVE [facility] nitrite fipheeplu3828-79-91 05:25:00* Test Item Value Reference Range Interpretation Comments Urine Nitrite (test code = 17724-4) NEGATIVE NEGATIVE [facility] CenterU[facility] protein measurement by test strip (mass/volume)2019-09-03 05:25:00* Test Item Value Reference Range Interpretation Comments Urine Protein (test code = 5804-0) 3+ NEGATIVE [facility] CenterU[facility] glucose wpckbddnq9593-08-35 05:25:00* Test Item Value Reference Range Interpretation Comments Urine Glucose (UA) (test code = 2349-9) NEGATIVE NEGATIVE [facility] CenterU[facility] ketones detection by automated test urjoa7823-80-00 05:25:00* Test Item Value Reference Range Interpretation Comments Urine Ketones (test code = 52540-9) 1+ NEGATIVE [facility] CenterU[facility] urobilinogen measurement by test strip (mass/volume)2019-09-03 05:25:00* Test Item Value Reference Range Interpretation Comments Urine Urobilinogen (test code = 78575-0) 0.2 0.2-1 [facility] Center[facility] total bilirubin measurement (mass/volume)2019-09-03 05:25:00* Test Item Value Reference Range Interpretation Comments Urine Bilirubin (test code = 1978-6) SMALL NEGATIVE [facility] CenterU[facility] erythrocytes uzrbyivbc6429-58-98 05:25:00* Test Item Value Reference Range Interpretation Comments Urine Blood (test code = 77157-0) MODERATE NEGATIVE [facility] CenterAutomated urine sediment leukocyte count by microscopy (number/high power field)2019-09-03 05:25:00* Test Item Value Reference Range Interpretation Comments Urine WBC (test code = 5821-4) 11-20 0-5 [facility] CenterErythrocytes detection in urine sediment by light qknjuplddv6745-42-58 05:25:00* Test Item Value Reference Range Interpretation Comments Urine RBC (test code = 30255-7) 21-50 0-5 [facility] CenterBacteria detection in urine sediment by light oqkycfvngf1144-76-43 05:25:00* Test Item Value Reference Range Interpretation Comments Urine Bacteria (test code = 58282-6) MODERATE NONE [facility] CenterEpithelial cells detection in urine sediment by light qusntkxhma9504-74-25 05:25:00* Test Item Value Reference Range Interpretation Comments Urine Epithelial Cells (test code = 79800-9) RARE NONE [facility] CenterAmorphous sediment detection in urine sediment by light tqigvaawme1570-75-18 05:25:00* Test Item Value Reference Range Interpretation Comments Urine Amorphous Sediment (test code = 8246-1) FEW FEW [facility] CenterAmorphous sediment detection in urine sediment by light bcrmhfdzpj2106-94-31 05:25:00* Test Item Value Reference Range Interpretation Comments Urine Amorphous Sediment (test code = 8246-1) FEW FEW [facility] CenterCreatine Kinase GZ2594-23-09 21:27:00* Test Item Value Reference Range Interpretation Comments Creatine Kinase MB (test code = 75308-1) 0.60 0-5.0 [facility] CenterTroponin R0806-13-86 21:27:00* Test Item Value Reference Range Interpretation Comments Troponin I (test code = MFA4447) < 0.001 0-0.300 [facility] CenterCreatine Shwizd9015-40-74 21:18:00* Test Item Value Reference Range Interpretation Comments Creatine Kinase (test code = 2157-6) 15 29-168 L [facility] CenterCHEST SINGLE (PORTABLE)2019-09-02 19:12:00 [facility] [address] [address] Patient Name: DEO ESCUDERO MR #: [id number] : 1955 Age/Sex: 64/F Req #: [id number] Adm Physician: Ordered by: MEENAKSHI GANDHI MD Report #: [id number] Location: ER Room/Bed: Procedure: [id number] DX/CH EST SINGLE (PORTABLE) Exam Date: 09/02/19 Exam Time: 1829 REPORT STATUS: Signed EXAM INATION: CHEST SINGLE (PORTABLE) COMPARISON: Chest x-ray 08/10/2019 INDICATION: Altered level of consciousness [facility] [id number] DISCUSSION: Frontal view of the chest [...] COPY TO: MEENAKSHI GANDHI MD CT BRAIN LH4075-35-46 18:56:[address] [address] Patient Name: DEO ESCUDERO MR #: [id number] : 1955 Age/Sex: 64/F Req #: [id number] Adm Physician: Ordered by: MEENAKSHI GANDHI MD Report #: [id number] Location: ER Room/Bed: Procedure: [id number] CT/CT BRAIN WO Exam Date: 09/02/19 Exam Time: 183 REPORT STATUS: Signed History:Altered mental status Comparison [...] 190 COPY TO: MEENAKSHI GANDHI MD Urine Crrtzpa6304-28-25 07:53:00* Test Item Value Reference Range Interpretation Comments Urine Culture (test code = 630-4) No Result Data Provided [facility] Dtwyccs0129-36-11 07:53:00* Test Item Value Reference Range Interpretation Comments Urine Culture (test code = 630-4) No Result Data Provided [facility] CenterU[facility] IGN0978-94-68 20:26:00* Test Item Value Reference Range Interpretation Comments Urine WBC (test code = 5821-4) >50 0-5 H [facility] CenterU[facility] FSV6023-57-89 20:26:00* Test Item Value Reference Range Interpretation Comments Urine RBC (test code = 58134-8) 21-50 0-5 H [facility] CenterU[facility] Pykenjry6034-53-95 20:26:00* Test Item Value Reference Range Interpretation Comments Urine Bacteria (test code = 92689-5) MANY NONE H [facility] CenterU[facility] Epithelial Mctbj9976-08-17 20:26:00 * Test Item Value Reference Range Interpretation Comments Urine Epithelial Cells (test code = 27488-8) FEW NONE [facility] CenterU[facility] FZQ8066-83-07 20:26:00* Test Item Value Reference Range Interpretation Comments Urine WBC (test code = 5821-4) >50 0-5 H [facility] CenterU[facility] WXP7179-11-76 20:26:00* Test Item Value Reference Range Interpretation Comments Urine RBC (test code = 54883-9) 21-50 0-5 H [facility] CenterU[facility] Yuyuoqtt4404-96-41 20:26:00* Test Item Value Reference Range Interpretation Comments Urine Bacteria (test code = 11138-8) MANY NONE H [facility] CenterU[facility] Epithelial Rxqzc9369-91-67 20:26:00 * Test Item Value Reference Range Interpretation Comments Urine Epithelial Cells (test code = 54016-4) FEW NONE [facility] CenterU[facility] Uwmhq9853-05-82 20:16:00* Test Item Value Reference Range Interpretation Comments Urine Color (test code = 5778-6) YELLOW YELLOW [facility] CenterU[facility] Fzlosdu5607-00-30 20:16:00* Test Item Value Reference Range Interpretation Comments Urine Clarity (test code = 76524-1) CLOUDY CLEAR H [facility] CenterU[facility] Specific Jysbkcu3340-25-23 20:16:00 * Test Item Value Reference Range Interpretation Comments Urine Specific [place] (test code = 5811-5) 1.020 1.010-1.02 5 [facility] CenterU[facility] oC8267-13-65 20:16:00* Test Item Value Reference Range Interpretation Comments Urine pH (test code = 64758-6) 6 5-7 [facility] Center[facility] Leukocyte Iatbcrox4478-08-92 20:16:00* Test Item Value Reference Range Interpretation Comments Urine Leukocyte Esterase (test code = 5799-2) MODERATE NEGATIVE [facility] CenterU[facility] Ooouluf3286-77-01 20:16:00* Test Item Value Reference Range Interpretation Comments Urine Nitrite (test code = 46554-0) NEGATIVE NEGATIVE [facility] CenterU[facility] Tiqfbiq8466-41-21 20:16:00* Test Item Value Reference Range Interpretation Comments Urine Protein (test code = 5804-0) 3+ NEGATIVE H [facility] CenterU[facility] Glucose (UA)2019-08-25 20:16:00* Test Item Value Reference Range Interpretation Comments Urine Glucose (UA) (test code = 2349-9) NEGATIVE NEGATIVE [facility] CenterU[facility] Exfiqoo8827-04-31 20:16:00* Test Item Value Reference Range Interpretation Comments Urine Ketones (test code = 65791-9) NEGATIVE NEGATIVE [facility] CenterU[facility] Awlpuxtnfrxo7229-95-11 20:16:00* Test Item Value Reference Range Interpretation Comments Urine Urobilinogen (test code = 76175-0) 0.2 0.2-1 [facility] CenterU[facility] Lmdpbqonc9899-07-39 20:16:00* Test Item Value Reference Range Interpretation Comments Urine Bilirubin (test code = 1978-6) SMALL NEGATIVE [facility] Ubyyb0157-12-59 20:16:00* Test Item Value Reference Range Interpretation Comments Urine Blood (test code = 44530-6) 1+ NEGATIVE [facility] CenterU[facility] Codyh2681-57-83 20:16:00* Test Item Value Reference Range Interpretation Comments Urine Color (test code = 5778-6) YELLOW YELLOW [facility] CenterU[facility] Dmakmnx5076-55-87 20:16:00* Test Item Value Reference Range Interpretation Comments Urine Clarity (test code = 94030-8) CLOUDY CLEAR H [facility] CenterU[facility] Specific Gjlmzvy8951-83-79 20:16:00 * Test Item Value Reference Range Interpretation Comments Urine Specific [place] (test code = 5811-5) 1.020 1.010-1.02 5 [facility] CenterU[facility] hO4788-06-26 20:16:00* Test Item Value Reference Range Interpretation Comments Urine pH (test code = 14234-2) 6 5-7 [facility] CenterU[facility] Leukocyte Tulpdykt8401-12-96 20:16:00* Test Item Value Reference Range Interpretation Comments Urine Leukocyte Esterase (test code = 5799-2) MODERATE NEGATIVE [facility] CenterU[facility] Yvcdvqx6833-54-21 20:16:00* Test Item Value Reference Range Interpretation Comments Urine Nitrite (test code = 80076-6) NEGATIVE NEGATIVE [facility] CenterU[facility] Jusdfql9224-13-67 20:16:00* Test Item Value Reference Range Interpretation Comments Urine Protein (test code = 5804-0) 3+ NEGATIVE H [facility] CenterU[facility] Glucose (UA)2019-08-25 20:16:00* Test Item Value Reference Range Interpretation Comments Urine Glucose (UA) (test code = 2349-9) NEGATIVE NEGATIVE [facility] CenterU[facility] Cizhnej2610-02-58 20:16:00* Test Item Value Reference Range Interpretation Comments Urine Ketones (test code = 59540-7) NEGATIVE NEGATIVE [facility] CenterU[facility] Ocioflygjgmq1372-05-29 20:16:00* Test Item Value Reference Range Interpretation Comments Urine Urobilinogen (test code = 87167-3) 0.2 0.2-1 [facility] CenterU[facility] Hxfvalwun8400-67-81 20:16:00* Test Item Value Reference Range Interpretation Comments Urine Bilirubin (test code = 1978-6) SMALL NEGATIVE [facility] CenterU[facility] Kbwel0916-75-98 20:16:00* Test Item Value Reference Range Interpretation Comments Urine Blood (test code = 56610-9) 1+ NEGATIVE [facility] CenterCT [facility]BDOMEN[facility]PELVIS RP2119-37-55 19:21:00 [facility] [address] [place] [address] Patient Name: DEO ESCUDERO MR #: [id number] : 1955 Age/Sex: 64/F Req #: [id number] Adm Physician: Ordered by: EHSAN BAE DO Report #: [id number] Location: ER Room/Bed: Procedure: CT/CT ABDOMEN/PELVIS WO [...] limits set by the [employer] [facility] ([facility]). FINDINGS: LINES and TUBES: There is [...] 36 COPY TO: EHSAN BAE DO Sodium Pnztu8791-32-03 19:09:00* Test Item Value Reference Range Interpretation Comments Sodium Level (test code = 2951-2) 136 136-145 [facility] CenterPotassium Nummy7752-63-79 19:09:00* Test Item Value Reference Range Interpretation Comments Potassium Level (test code = 2823-3) 3.4 3.5-5.1 L [facility] CenterChloride Gxgpw0799-55-37 19:09:00* Test Item Value Reference Range Interpretation Comments Chloride Level (test code = 2075-0) 99 98-107 [facility] CenterCarbon Dioxide Kzwsu0518-44-10 19:09:00* Test Item Value Reference Range Interpretation Comments Carbon Dioxide Level (test code = 2028-9) 26 22-29 [facility] CenterAnion Fnq4060-65-64 19:09:00* Test Item Value Reference Range Interpretation Comments Anion Gap (test code = 98837-7) 14.4 8-16 [facility] CenterBlood Urea Ptioqzhi3540-26-64 19:09:00* Test Item Value Reference Range Interpretation Comments Blood Urea Nitrogen (test code = 3094-0) 25 7-26 [facility] CenterCreatinine2020-03-03 19:09:00* Test Item Value Reference Range Interpretation Comments Creatinine (test code = 2160-0) 4.06 0.57-1.11 H [facility] CenterBUN/Creatinine Wstjy5648-01-45 19:09:00* Test Item Value Reference Range Interpretation Comments BUN/Creatinine Ratio (test code = 3097-3) 6 6-25 [facility] CenterEstimat Glomerular Filtration Rate 2019-08-25 19:09:00* Test Item Value Reference Range Interpretation Comments Estimat Glomerular Filtration Rate (test code = 411243420) 11 >60 L Ranges were taken from the National Kidney Disease Education Program and the [facility] literature.Reference ranges:60 or greater: Htsdpg58-09 ( for 3 consecutive months): Chronic kidney disease 15 or less: Kidney failureMethodist [facility] Medical CenterGlucose Mpgkm3955-44-04 19:09:00* Test Item Value Reference Range Interpretation Comments Glucose Level (test code = VZL2890) 189 74-118 H [facility] CenterCalcium Svrpj9733-59-07 19:09:00* Test Item Value Reference Range Interpretation Comments Calcium Level (test code = 94207-7) 8.8 8.4-10.2 [facility] CenterTotal Kyxonlxas2640-77-14 19:09:00* Test Item Value Reference Range Interpretation Comments Total Bilirubin (test code = 1975-2) 0.3 0.2-1.2 [facility] CenterAspartate Amino Transf (AST/SGOT) 2019-08-25 19:09:00* Test Item Value Reference Range Interpretation Comments Aspartate Amino Transf (AST/SGOT) (test code = Aspartate Amino Transf (AST/SGOT)) 25 5-34 [facility] CenterAlanine Aminotransferase (ALT/SGPT) 2019-08-25 19:09:00* Test Item Value Reference Range Interpretation Comments Alanine Aminotransferase (ALT/SGPT) (test code = 1742-6) 18 0-55 [facility] CenterTotal Ntughlc1350-16-38 19:09:00* Test Item Value Reference Range Interpretation Comments Total Protein (test code = 2885-2) 6.6 6.5-8.1 [facility] CenterAlbumin2020-03-03 19:09:00* Test Item Value Reference Range Interpretation Comments Albumin (test code = 1751-7) 2.8 3.5-5.0 L [facility] CenterGlobulin2020-03-03 19:09:00* Test Item Value Reference Range Interpretation Comments Globulin (test code = 48019-9) 3.8 2.3-3.5 H [facility] CenterAlbumin/Globulin Ktjst4183-51-18 19:09:00 * Test Item Value Reference Range Interpretation Comments Albumin/Globulin Ratio (test code = 1759-0) 0.7 0.8-2.0 L [facility] CenterAlkaline Ppapomghgbf1048-47-53 19:09:00* Test Item Value Reference Range Interpretation Comments Alkaline Phosphatase (test code = 6768-6) 92 40-150 [facility] Cypressodium Nzvhj3612-42-61 19:09:00* Test Item Value Reference Range Interpretation Comments Sodium Level (test code = 2951-2) 136 136-145 [facility] CenterPotassium Qofrv4569-97-78 19:09:00* Test Item Value Reference Range Interpretation Comments Potassium Level (test code = 2823-3) 3.4 3.5-5.1 L [facility] CenterChloride Eghzq5567-38-50 19:09:00* Test Item Value Reference Range Interpretation Comments Chloride Level (test code = 2075-0) 99 98-107 [facility] CenterCarbon Dioxide Adsjc0542-10-52 19:09:00* Test Item Value Reference Range Interpretation Comments Carbon Dioxide Level (test code = 2028-9) 26 22-29 [facility] CenterAnion Uxn3865-50-79 19:09:00* Test Item Value Reference Range Interpretation Comments Anion Gap (test code = 08053-3) 14.4 8-16 [facility] CenterBlood Urea Pqqhpqoo7807-79-70 19:09:00* Test Item Value Reference Range Interpretation Comments Blood Urea Nitrogen (test code = 3094-0) 25 7-26 [facility] CenterCreatinine2020-03-03 19:09:00* Test Item Value Reference Range Interpretation Comments Creatinine (test code = 2160-0) 4.06 0.57-1.11 H [facility] CenterBUN/Creatinine Klagu0883-89-88 19:09:00* Test Item Value Reference Range Interpretation Comments BUN/Creatinine Ratio (test code = 3097-3) 6 6-[address] [facility] Glomer[facility] Fil[facility] Rate 2019-08-25 19:09:00* Test Item Value Reference Range Interpretation Comments Estimat Glomerular Filtration Rate (test code = 111407291) 11 >60 L Ranges were taken from the National Kidney Disease Education Program and the [facility] literature.Reference ranges:60 or greater: Taccei40-38 ( for 3 consecutive months): Chronic kidney disease 15 or less: Kidney failureMethodist [facility] Medical CenterGlucose Dplit3396-40-67 19:09:00* Test Item Value Reference Range Interpretation Comments Glucose Level (test code = DRL1481) 189 74-118 H [facility] CenterCalcium Wiuox8918-62-40 19:09:00* Test Item Value Reference Range Interpretation Comments Calcium Level (test code = 32419-7) 8.8 8.4-10.2 [facility] CenterTotal Kkarevicv3292-46-13 19:09:00* Test Item Value Reference Range Interpretation Comments Total Bilirubin (test code = 1975-2) 0.3 0.2-1.2 [facility] CenterAspartate Amino Transf (AST/SGOT) 2019-08-25 19:09:00* Test Item Value Reference Range Interpretation Comments Aspartate Amino Transf (AST/SGOT) (test code = Aspartate Amino Transf (AST/SGOT)) 25 5-34 [facility] CenterAlanine Aminotransferase (ALT/SGPT) 2019-08-25 19:09:00* Test Item Value Reference Range Interpretation Comments Alanine Aminotransferase (ALT/SGPT) (test code = 1742-6) 18 0-55 [facility] CenterTotal Vbjpgyy5524-55-14 19:09:00* Test Item Value Reference Range Interpretation Comments Total Protein (test code = 2885-2) 6.6 6.5-8.1 [facility] CenterAlbumin2020-03-03 19:09:00* Test Item Value Reference Range Interpretation Comments Albumin (test code = 1751-7) 2.8 3.5-5.0 L [facility] CenterGlobulin2020-03-03 19:09:00* Test Item Value Reference Range Interpretation Comments Globulin (test code = 51039-7) 3.8 2.3-3.5 H [facility] CenterAlbumin/Globulin Euweh2291-93-12 19:09:00 * Test Item Value Reference Range Interpretation Comments Albumin/Globulin Ratio (test code = 1759-0) 0.7 0.8-2.0 L [facility] CenterAlkaline Giohtitraml8877-29-39 19:09:00* Test Item Value Reference Range Interpretation Comments Alkaline Phosphatase (test code = 6768-6) 92 40-150 [facility] CenterWhite Blood Qqpli3113-22-13 19:08:00* Test Item Value Reference Range Interpretation Comments White Blood Count (test code = 6690-2) 9.36 4.8-10.8 [facility] CenterRed Blood Hjuit5992-04-85 19:08:00* Test Item Value Reference Range Interpretation Comments Red Blood Count (test code = 789-8) 4.91 3.6-5.1 [facility] CenterHemoglobin2020-03-03 19:08:00* Test Item Value Reference Range Interpretation Comments Hemoglobin (test code = 76366-5) 13.8 12.0-16.0 [facility] CenterHematocrit2020-03-03 19:08:00* Test Item Value Reference Range Interpretation Comments Hematocrit (test code = 4544-3) 42.3 34.2-44.1 [facility] CenterMean Corpuscular Sidmzj7748-04-37 19:08:00* Test Item Value Reference Range Interpretation Comments Mean Corpuscular Volume (test code = 787-2) 86.2 81-99 [facility] CenterMean Corpuscular Ethuswdvcm0752-73-86 19:08:00* Test Item Value Reference Range Interpretation Comments Mean Corpuscular Hemoglobin (test code = 785-6) 28.1 28-32 [facility] CenterMean Corpuscular Hemoglobin Concent 2019-08-25 19:08:00* Test Item Value Reference Range Interpretation Comments Mean Corpuscular Hemoglobin Concent (test code = 786-4) 32.6 31-35 [facility] CenterRed Cell Distribution Kmffs7666-02-42 19:08:00* Test Item Value Reference Range Interpretation Comments Red Cell Distribution Width (test code = 66017-2) 15.4 11.7 -14.4 H [facility] CenterPlatelet Opfeg1144-60-01 19:08:00* Test Item Value Reference Range Interpretation Comments Platelet Count (test code = 777-3) 397 140-360 H [facility] CenterNeutrophils (%) (Auto)2019-08-25 19:08:00 * Test Item Value Reference Range Interpretation Comments Neutrophils (%) (Auto) (test code = 49332-6) 63.2 38.7-80.0 [facility] CenterLymphocytes (%) (Auto)2019-08-25 19:08:00 * Test Item Value Reference Range Interpretation Comments Lymphocytes (%) (Auto) (test code = 736-9) 24.9 18.0-39.1 [facility] CenterMonocytes (%) (Auto)2019-08-25 19:08:00* Test Item Value Reference Range Interpretation Comments Monocytes (%) (Auto) (test code = 5905-5) 7.7 4.4-11.3 [facility] CenterEosinophils (%) (Auto)2019-08-25 19:08:00 * Test Item Value Reference Range Interpretation Comments Eosinophils (%) (Auto) (test code = 713-8) 2.5 0.0-6.0 [facility] CenterBasophils (%) (Auto)2019-08-25 19:08:00* Test Item Value Reference Range Interpretation Comments Basophils (%) (Auto) (test code = 706-2) 1.1 0.0-1.0 H [facility] CenterIM GRANULOCYTES %2019-08-25 19:08:00* Test Item Value Reference Range Interpretation Comments IM GRANULOCYTES % (test code = IM GRANULOCYTES %) 0.6 0.0- 1.0 [facility] CenterNeutrophils # (Auto)2019-08-25 19:08:00* Test Item Value Reference Range Interpretation Comments Neutrophils # (Auto) (test code = 751-8) 5.9 2.1-6.9 [facility] CenterLymphocytes # (Auto)2019-08-25 19:08:00* Test Item Value Reference Range Interpretation Comments Lymphocytes # (Auto) (test code = 62250-7) 2.3 1.0-3.2 [facility] CenterMonocytes # (Auto)2019-08-25 19:08:00* Test Item Value Reference Range Interpretation Comments Monocytes # (Auto) (test code = 742-7) 0.7 0.2-0.8 [facility] CenterEosinophils # (Auto)2019-08-25 19:08:00* Test Item Value Reference Range Interpretation Comments Eosinophils # (Auto) (test code = 711-2) 0.2 0.0-0.4 [facility] CenterBasophils # (Auto)2019-08-25 19:08:00* Test Item Value Reference Range Interpretation Comments Basophils # (Auto) (test code = 704-7) 0.1 0.0-0.1 [facility] CenterAbsolute Immature Granulocyte (auto 2019-08-25 19:08:00* Test Item Value Reference Range Interpretation Comments Absolute Immature Granulocyte (auto (jake t code = Absolute Immature Granulocyte (auto) 0.06 0-0.1 [facility] CenterWhite Blood Ejlql4623-51-55 19:08:00* Test Item Value Reference Range Interpretation Comments White Blood Count (test code = 6690-2) 9.36 4.8-10.8 [facility] CenterRed Blood Uxble0191-00-19 19:08:00* Test Item Value Reference Range Interpretation Comments Red Blood Count (test code = 789-8) 4.91 3.6-5.1 [facility] CenterHemoglobin2020-03-03 19:08:00* Test Item Value Reference Range Interpretation Comments Hemoglobin (test code = 47303-1) 13.8 12.0-16.0 [facility] CenterHematocrit2020-03-03 19:08:00* Test Item Value Reference Range Interpretation Comments Hematocrit (test code = 4544-3) 42.3 34.2-44.1 [facility] CenterMean Corpuscular Vcvpof7707-92-84 19:08:00* Test Item Value Reference Range Interpretation Comments Mean Corpuscular Volume (test code = 787-2) 86.2 81-99 [facility] CenterMean Corpuscular Mgixivcusz5037-27-52 19:08:00* Test Item Value Reference Range Interpretation Comments Mean Corpuscular Hemoglobin (test code = 785-6) 28.1 28-32 [facility] CenterMean Corpuscular Hemoglobin Concent 2019-08-25 19:08:00* Test Item Value Reference Range Interpretation Comments Mean Corpuscular Hemoglobin Concent (test code = 786-4) 32.6 31-35 [facility] CenterRed Cell Distribution Jnxbm1783-48-44 19:08:00* Test Item Value Reference Range Interpretation Comments Red Cell Distribution Width (test code = 39271-5) 15.4 11.7 -14.4 H [facility] CenterPlatelet Lpaxr1543-59-85 19:08:00* Test Item Value Reference Range Interpretation Comments Platelet Count (test code = 777-3) 397 140-360 H [facility] CenterNeutrophils (%) (Auto)2019-08-25 19:08:00 * Test Item Value Reference Range Interpretation Comments Neutrophils (%) (Auto) (test code = 04288-0) 63.2 38.7-80.0 [facility] CenterLymphocytes (%) (Auto)2019-08-25 19:08:00 * Test Item Value Reference Range Interpretation Comments Lymphocytes (%) (Auto) (test code = 736-9) 24.9 18.0-39.1 [facility] CenterMonocytes (%) (Auto)2019-08-25 19:08:00* Test Item Value Reference Range Interpretation Comments Monocytes (%) (Auto) (test code = 5905-5) 7.7 4.4-11.3 [facility] CenterEosinophils (%) (Auto)2019-08-25 19:08:00 * Test Item Value Reference Range Interpretation Comments Eosinophils (%) (Auto) (test code = 713-8) 2.5 0.0-6.0 [facility] CenterBasophils (%) (Auto)2019-08-25 19:08:00* Test Item Value Reference Range Interpretation Comments Basophils (%) (Auto) (test code = 706-2) 1.1 0.0-1.0 H [facility] CenterIM GRANULOCYTES %2019-08-25 19:08:00* Test Item Value Reference Range Interpretation Comments IM GRANULOCYTES % (test code = IM GRANULOCYTES %) 0.6 0.0- 1.0 [facility] CenterNeutrophils # (Auto)2019-08-25 19:08:00* Test Item Value Reference Range Interpretation Comments Neutrophils # (Auto) (test code = 751-8) 5.9 2.1-6.9 [facility] CenterLymphocytes # (Auto)2019-08-25 19:08:00* Test Item Value Reference Range Interpretation Comments Lymphocytes # (Auto) (test code = 21541-9) 2.3 1.0-3.2 [facility] CenterMonocytes # (Auto)2019-08-25 19:08:00* Test Item Value Reference Range Interpretation Comments Monocytes # (Auto) (test code = 742-7) 0.7 0.2-0.8 [facility] CenterEosinophils # (Auto)2019-08-25 19:08:00* Test Item Value Reference Range Interpretation Comments Eosinophils # (Auto) (test code = 711-2) 0.2 0.0-0.4 [facility] CenterBasophils # (Auto)2019-08-25 19:08:00* Test Item Value Reference Range Interpretation Comments Basophils # (Auto) (test code = 704-7) 0.1 0.0-0.1 [facility] CenterAbsolute Immature Granulocyte (auto 2019-08-25 19:08:00* Test Item Value Reference Range Interpretation Comments Absolute Immature Granulocyte (auto (jake t code = Absolute Immature Granulocyte (auto) 0.06 0-0.1 [facility] CenterBacterial urine ojqklig9642-31-11 19:00:00* Test Item Value Reference Range Interpretation Comments Urine Culture (test code = 630-4) ENTEROBACTER AEROGENES [facility] CenterBacterial urine oaktvjv0419-64-36 19:00:00* Test Item Value Reference Range Interpretation Comments Urine Culture (test code = 630-4) ENTEROBACTER AEROGENES [facility] Antibody, Quant 2019-08-12 21:53:00* Test Item Value Reference Range Interpretation Comments Hepatitis B Surface Antibody, Quant (test code = 5194-6) <3.1 Immunity>9.9 L Status of Immunity Anti-HBs Level Inconsistent with Immunity 0.0 - 9.9Consistent with Immunity >9.9[facility] Be Egnlsje0313-21-66 21:53:00* Test Item Value Reference Range Interpretation Comments Hepatitis Be Antigen (test code = 84855-1) Negative Negative [facility] B Core Total Wvnadclp7363-49-56 21:53:00* Test Item Value Reference Range Interpretation Comments Hepatitis B Core Total Antibody (test code = 77106-2) Negative Negative [facility] B Surface Qxtrogh8346-24-45 21:53:00* Test Item Value Reference Range Interpretation Comments Hepatitis B Surface Antigen (test code = 5196-1) Negative Negat frnacois [facility] B Core IgM Hhwyckit5889-77-28 21:53:00* Test Item Value Reference Range Interpretation Comments Hepatitis B Core IgM Antibody (test code = 53534-7) Negative Ne gative Performed at: [facility] [id number] Director: Kevin Lino MD, Phone: [phone] Country Memorial Hospital B Surface Antibody, Tcmja3820-01-20 21:53:00* Test Item Value Reference Range Interpretation Comments Hepatitis B Surface Antibody, Quant (test code = 5194-6) <3.1 Immunity>9.9 L Status of Immunity Anti-HBs Level Inconsistent with Immunity 0.0 - 9.9Consistent with Immunity >9.9[facility] Be Xuagsyh1602-57-82 21:53:00* Test Item Value Reference Range Interpretation Comments Hepatitis Be Antigen (test code = 51892-7) Negative Negative [facility] B Core Total Ulzeqdlj2600-70-19 21:53:00* Test Item Value Reference Range Interpretation Comments Hepatitis B Core Total Antibody (test code = 52106-2) Negative Negative [facility] B Surface Lmsppqg5592-01-88 21:53:00* Test Item Value Reference Range Interpretation Comments Hepatitis B Surface Antigen (test code = 5196-1) Negative Negat francois [facility] B Core IgM Oynmwray8649-59-00 21:53:00* Test Item Value Reference Range Interpretation Comments Hepatitis B Core IgM Antibody (test code = 29221-5) Negative Ne gative Performed at: [employer] [facility] [id number] Director: Kevin Lino MD, Phone: [phone] Country Memorial Hospital B Surface Antibody, Bhisn1289-15-35 21:53:00* Test Item Value Reference Range Interpretation Comments Hepatitis B Surface Antibody, Quant (test code = 5194-6) <3.1 Immunity>9.9 L Status of Immunity Anti-HBs Level Inconsistent with Immunity 0.0 - 9.9Consistent with Immunity >9.9[facility] Be Qbxznxy1391-87-68 21:53:00* Test Item Value Reference Range Interpretation Comments Hepatitis Be Antigen (test code = 61005-6) Negative Negative [facility] B Core Total Jpqrvzbv7764-78-59 21:53:00* Test Item Value Reference Range Interpretation Comments Hepatitis B Core Total Antibody (test code = 75207-7) Negative Negative [facility] B Surface Vsqlvsq2125-92-93 21:53:00* Test Item Value Reference Range Interpretation Comments Hepatitis B Surface Antigen (test code = 5196-1) Negative Negat francois [facility] B Core IgM Kaiahlny3800-32-88 21:53:00* Test Item Value Reference Range Interpretation Comments Hepatitis B Core IgM Antibody (test code = 69002-2) Negative Ne gative Performed at: - [facility] [id number] Director: Kevin Lino MD, Phone: [phone] Country Memorial Hospital Be Xinflzk4220-00-15 21:53:00* Test Item Value Reference Range Interpretation Comments Hepatitis Be Antigen (test code = 96124-3) Negative Negative [facility] B Surface Eqhqlym6071-40-40 21:53:00* Test Item Value Reference Range Interpretation Comments Hepatitis B Surface Antigen (test code = 5196-1) Negative Negat francois [facility] Cnpunvk1252-68-48 15:09:00* Test Item Value Reference Range Interpretation Comments Bedside Glucose (test code = 84727-8) 107 70-120 Meter ID: [id number] [facility] Glucose 2019-08-12 15:09:00* Test Item Value Reference Range Interpretation Comments Bedside Glucose (test code = 23474-6) 107 70-120 Meter ID: [id number] [facility]opedic Hospital Glucose 2019-08-12 15:09:00* Test Item Value Reference Range Interpretation Comments Bedside Glucose (test code = 12654-9) 107 70-120 Meter ID: [id number] Methodist Clear [facility] Hospitalodium Level 2019-08-12 05:46:00* Test Item Value Reference Range Interpretation Comments Sodium Level (test code = 2951-2) 142 136-145 [facility] CenterPotassium Cdcgy7678-42-54 05:46:00* Test Item Value Reference Range Interpretation Comments Potassium Level (test code = 2823-3) 3.6 3.5-5.1 [facility] CenterChloride Iarlz9700-37-60 05:46:00* Test Item Value Reference Range Interpretation Comments Chloride Level (test code = 2075-0) 107 98-107 [facility] CenterCarbon Dioxide Tfbyt5252-44-41 05:46:00* Test Item Value Reference Range Interpretation Comments Carbon Dioxide Level (test code = 2028-9) 24 22-29 [facility] CenterAnion Bzg1511-18-42 05:46:00* Test Item Value Reference Range Interpretation Comments Anion Gap (test code = 03877-5) 14.6 8-16 [facility] CenterBlood Urea Qeeksops6135-10-39 05:46:00* Test Item Value Reference Range Interpretation Comments Blood Urea Nitrogen (test code = 3094-0) 26 7-26 [facility] CenterCreatinine2020-02-19 05:46:00* Test Item Value Reference Range Interpretation Comments Creatinine (test code = 2160-0) 5.47 0.57-1.11 H [facility] CenterBUN/Creatinine Awxhr3637-23-32 05:46:00* Test Item Value Reference Range Interpretation Comments BUN/Creatinine Ratio (test code = 3097-3) 5 6-25 L [facility] CenterEstimat Glomerular Filtration Rate 2019-08-12 05:46:00* Test Item Value Reference Range Interpretation Comments Estimat Glomerular Filtration Rate (test code = 619997131) 8 >60 L Ranges were taken from the National Kidney Disease Education Program and the [facility] Kid[facility] Foundation literature.Reference ranges:60 or greater: Jmgeco11-00 ( for 3 consecutive months): Chronic kidney disease 15 or less: Kidney failureMethodist Dallas Medical CenterGlucose Ejqyn8838-97-78 05:46:00* Test Item Value Reference Range Interpretation Comments Glucose Level (test code = KAT4663) 78 74-118 [facility] CenterCalcium Ovgvf3851-18-18 05:46:00* Test Item Value Reference Range Interpretation Comments Calcium Level (test code = 57500-5) 7.9 8.4-10.2 L [facility] CenterWhite Blood Ncggu0832-23-62 05:29:00* Test Item Value Reference Range Interpretation Comments White Blood Count (test code = 6690-2) 8.99 4.8-10.8 [facility] CenterRed Blood Jnmnl4381-66-18 05:29:00* Test Item Value Reference Range Interpretation Comments Red Blood Count (test code = 789-8) 4.49 3.6-5.1 [facility] CenterHemoglobin2020-02-19 05:29:00* Test Item Value Reference Range Interpretation Comments Hemoglobin (test code = 41936-6) 12.4 12.0-16.0 [facility] CenterHematocrit2020-02-19 05:29:00* Test Item Value Reference Range Interpretation Comments Hematocrit (test code = 4544-3) 40.1 34.2-44.1 [facility] CenterMean Corpuscular Zbvynl4632-51-57 05:29:00* Test Item Value Reference Range Interpretation Comments Mean Corpuscular Volume (test code = 787-2) 89.3 81-99 [facility] CenterMean Corpuscular Udvfpfppxd1659-64-70 05:29:00* Test Item Value Reference Range Interpretation Comments Mean Corpuscular Hemoglobin (test code = 785-6) 27.6 28-32 L [facility] CenterMean Corpuscular Hemoglobin Concent 2019-08-12 05:29:00* Test Item Value Reference Range Interpretation Comments Mean Corpuscular Hemoglobin Concent (test code = 786-4) 30.9 31-35 L [facility] CenterRed Cell Distribution Halij2548-96-03 05:29:00* Test Item Value Reference Range Interpretation Comments Red Cell Distribution Width (test code = 87778-9) 16.3 11.7 -14.4 H [facility] CenterPlatelet Whgiw7133-76-89 05:29:00* Test Item Value Reference Range Interpretation Comments Platelet Count (test code = 777-3) 482 140-360 H [facility] CenterNeutrophils (%) (Auto)2019-08-12 05:29:00 * Test Item Value Reference Range Interpretation Comments Neutrophils (%) (Auto) (test code = 06867-7) 63.6 38.7-80.0 [facility] CenterLymphocytes (%) (Auto)2019-08-12 05:29:00 * Test Item Value Reference Range Interpretation Comments Lymphocytes (%) (Auto) (test code = 736-9) 25.0 18.0-39.1 [facility] CenterMonocytes (%) (Auto)2019-08-12 05:29:00* Test Item Value Reference Range Interpretation Comments Monocytes (%) (Auto) (test code = 5905-5) 6.3 4.4-11.3 [facility] CenterEosinophils (%) (Auto)2019-08-12 05:29:00 * Test Item Value Reference Range Interpretation Comments Eosinophils (%) (Auto) (test code = 713-8) 3.8 0.0-6.0 [facility] CenterBasophils (%) (Auto)2019-08-12 05:29:00* Test Item Value Reference Range Interpretation Comments Basophils (%) (Auto) (test code = 706-2) 0.9 0.0-1.0 [facility] CenterIM GRANULOCYTES %2019-08-12 05:29:00* Test Item Value Reference Range Interpretation Comments IM GRANULOCYTES % (test code = IM GRANULOCYTES %) 0.4 0.0- 1.0 [facility] CenterNeutrophils # (Auto)2019-08-12 05:29:00* Test Item Value Reference Range Interpretation Comments Neutrophils # (Auto) (test code = 751-8) 5.7 2.1-6.9 [facility] CenterLymphocytes # (Auto)2019-08-12 05:29:00* Test Item Value Reference Range Interpretation Comments Lymphocytes # (Auto) (test code = 38083-7) 2.3 1.0-3.2 [facility] CenterMonocytes # (Auto)2019-08-12 05:29:00* Test Item Value Reference Range Interpretation Comments Monocytes # (Auto) (test code = 742-7) 0.6 0.2-0.8 [facility] CenterEosinophils # (Auto)2019-08-12 05:29:00* Test Item Value Reference Range Interpretation Comments Eosinophils # (Auto) (test code = 711-2) 0.3 0.0-0.4 [facility] CenterBasophils # (Auto)2019-08-12 05:29:00* Test Item Value Reference Range Interpretation Comments Basophils # (Auto) (test code = 704-7) 0.1 0.0-0.1 [facility] CenterAbsolute Immature Granulocyte (auto 2019-08-12 05:29:00* Test Item Value Reference Range Interpretation Comments Absolute Immature Granulocyte (auto (jake t code = Absolute Immature Granulocyte (auto) 0.04 0-0.1 [facility] Cypresserum hepatitis B virus e antigen detection by enzyme lmqplmqriwj6211-74-65 06:25:00* Test Item Value Reference Range Interpretation Comments Hepatitis Be Antigen (test code = 17834-4) Negative Negative [facility] Cypresserum hepatitis B virus e antigen detection by enzyme gijaozeitho9664-53-70 06:25:00* Test Item Value Reference Range Interpretation Comments Hepatitis Be Antigen (test code = 90654-4) Negative Negative [facility] CenterPhosphorus Kadao1276-78-43 05:23:00* Test Item Value Reference Range Interpretation Comments Phosphorus Level (test code = RIM8757) 4.3 2.3-4.7 [facility] CenterMagnesium Voouq9509-07-13 05:23:00* Test Item Value Reference Range Interpretation Comments Magnesium Level (test code = 90437-7) 1.9 1.3-2.1 [facility] CenterPhosphorus Vvidy1220-38-71 05:23:00* Test Item Value Reference Range Interpretation Comments Phosphorus Level (test code = MKC1417) 4.3 2.3-4.7 [facility] CenterMagnesium Riigb6326-92-24 05:23:00* Test Item Value Reference Range Interpretation Comments Magnesium Level (test code = 23129-0) 1.9 1.3-2.1 [facility] CenterPhosphorus Omwfm6499-67-43 05:23:00* Test Item Value Reference Range Interpretation Comments Phosphorus Level (test code = JHG4425) 4.3 2.3-4.7 [facility] CenterMagnesium Gpdfn0507-75-51 05:23:00* Test Item Value Reference Range Interpretation Comments Magnesium Level (test code = 87323-6) 1.9 1.3-2.1 [facility] CenterTotal Jadwqjdxi7276-67-60 23:32:00* Test Item Value Reference Range Interpretation Comments Total Bilirubin (test code = 1975-2) 0.4 0.2-1.2 [facility] CenterAspartate Amino Transf (AST/SGOT) 2019-08-10 23:32:00* Test Item Value Reference Range Interpretation Comments Aspartate Amino Transf (AST/SGOT) (test code = Aspartate Amino Transf (AST/SGOT)) 12 5-34 [facility] CenterAlanine Aminotransferase (ALT/SGPT) 2019-08-10 23:32:00* Test Item Value Reference Range Interpretation Comments Alanine Aminotransferase (ALT/SGPT) (test code = 1742-6) 8 0-55 [facility] CenterTotal Tkvetum3904-95-21 23:32:00* Test Item Value Reference Range Interpretation Comments Total Protein (test code = 2885-2) 5.6 6.5-8.1 L [facility] CenterAlbumin2020-02-17 23:32:00* Test Item Value Reference Range Interpretation Comments Albumin (test code = 1751-7) 2.0 3.5-5.0 L [facility] CenterGlobulin2020-02-17 23:32:00* Test Item Value Reference Range Interpretation Comments Globulin (test code = 38849-3) 3.6 2.3-3.5 H [facility] CenterAlbumin/Globulin Tagwr6604-16-56 23:32:00 * Test Item Value Reference Range Interpretation Comments Albumin/Globulin Ratio (test code = 1759-0) 0.6 0.8-2.0 L [facility] CenterAlkaline Fzywkuhyoqf5341-46-43 23:32:00* Test Item Value Reference Range Interpretation Comments Alkaline Phosphatase (test code = 6768-6) 77 40-150 [facility] CenterProthrombin Zdcm7223-71-14 23:23:00* Test Item Value Reference Range Interpretation Comments Prothrombin Time (test code = 5902-2) 13.3 11.9-14.5 [facility] CenterProthromb Time International Ratio 2019-08-10 23:23:00* Test Item Value Reference Range Interpretation Comments Prothromb Time International Ratio (test code = 6301-6) 0.96 Oral Anticoagulant Therapy INR Values:1. Low Intensity Therapy 1.5 - 2.02 . Moderate Intensity Therapy 2.0 - 3.03. High Intensity Therapy(1) 2.5 - 3. 54. High Intensity Therapy(2) 3.0 - 4.05. Panic Value INR > 5.0 [facility] CenterProthrombin Fbey2033-95-91 23:23:00* Test Item Value Reference Range Interpretation Comments Prothrombin Time (test code = 5902-2) 13.3 11.9-14.5 [facility] CenterProthromb Time International Ratio 2019-08-10 23:23:00* Test Item Value Reference Range Interpretation Comments Prothromb Time International Ratio (test code = 6301-6) 0.96 Oral Anticoagulant Therapy INR Values:1. Low Intensity Therapy 1.5 - 2.02 . Moderate Intensity Therapy 2.0 - 3.03. High Intensity Therapy(1) 2.5 - 3. 54. High Intensity Therapy(2) 3.0 - 4.05. Panic Value INR > 5.0 [facility] CenterProthrombin Hglj3378-83-72 23:23:00* Test Item Value Reference Range Interpretation Comments Prothrombin Time (test code = 5902-2) 13.3 11.9-14.5 [facility] CenterProthromb Time International Ratio 2019-08-10 23:23:00* Test Item Value Reference Range Interpretation Comments Prothromb Time International Ratio (test code = 6301-6) 0.96 Oral Anticoagulant Therapy INR Values:1. Low Intensity Therapy 1.5 - 2.02 . Moderate Intensity Therapy 2.0 - 3.03. High Intensity Therapy(1) 2.5 - 3. 54. High Intensity Therapy(2) 3.0 - 4.05. Panic Value INR > 5.0 [facility] CenterProthrombin Sgaw8055-53-55 23:23:00* Test Item Value Reference Range Interpretation Comments Prothrombin Time (test code = 5902-2) 13.3 11.9-14.5 [facility] CenterProthromb Time International Ratio 2019-08-10 23:23:00* Test Item Value Reference Range Interpretation Comments Prothromb Time International Ratio (test code = 6301-6) 0.96 Oral Anticoagulant Therapy INR Values:1. Low Intensity Therapy 1.5 - 2.02 . Moderate Intensity Therapy 2.0 - 3.03. High Intensity Therapy(1) 2.5 - 3. 54. High Intensity Therapy(2) 3.0 - 4.05. Panic Value INR > 5.0 [facility] CenterCHES SINGLE (PORTABLE)2019-08-10 21:12:00 [place] [address] Patient Name: DEO ESCUDERO MR #: [id number] : 1955 Age/Sex: 64/F Req #: [id number] Adm Physician: Ordered by: JOSR SAENZ MD Report #: [id number] Location: OR Room/Bed: Procedure: [id number] DX/C HEST SINGLE (PORTABLE) Exam Date: Exam [...] 9:14 PM Dictated By: VLAD JOHNSON MD [facility] Signed By: VLAD JOHNSON MD on 08/10/192113 Transcribed By: SCAR on 2113 COPY TO: JOSR SAENZ MD ABDOMEN-1VIEW (KU) 2019-08-10 13:39:00 [place] [address] Patient Name: DEO ESCUDERO MR #: [id number] : 1955 Age/Sex: 64/F Req #: [id number] Adm Physician: CELENA CHRISTENSEN MD Ordered by: EHSAN BAE DO Report #: [id number] Location: [facility] Room/Bed: [place] [address] Procedure: [id number] DX/AB DOMEN-1VIEW (KUB) Exam Date: 08/10/19 Exam [...] By: SCAR on 08/10/19 1341 COPY TO: KATHIAEHSAN DO HOYRMD5773-81-03 12:08:00* Test Item Value Reference Range Interpretation Comments GLUBED (test code = GLUBED) 137 mg/dL 74-106 H Performed by certified vegetable loader machine operator at [facility] HVCRKN5339-59-80 05:52:00* Test Item Value Reference Range Interpretation Comments GLUBED (test code = GLUBED) 107 mg/dL 74-106 H Performed by certified vegetable loader machine operator at [facility] URINALYSIS LJKVXAOW3950-48-75 02:18:00* Test Item Value Reference Range Interpretation [...] FEW SPECIMEN COMMENTS: may straight cathUrine Source? WxcfogoOAKQOK2499-00-11 01:40:00* Test Item Value Reference Range Interpretation Comments GLUBED (test code = GLUBED) 129 mg/dL 74-106 H Performed by certified vegetable loader machine operator at [facility] WTKDLX7704-33-95 17:42:00* Test Item Value Reference Range Interpretation Comments GLUBED (test code = GLUBED) 122 mg/dL 74-106 H Performed by certified vegetable loader machine operator at [facility] [id number] 12:11:00* Test Item Value Reference Range Interpretation Comments GLUBED (test code = GLUBED) 111 mg/dL 74-106 H Performed by certified vegetable loader machine operator at [facility] BASIC METABOLIC [id number] 12:03:00* Test Item Value Reference Range Interpretation [...] CA) 7.6 mg/dL 8.5-10.1 L BASIC METABOLIC [id number] 11:59:00* Test Item Value Reference Range Interpretation [...] code = CA) mg/dL 8.5-10.1 CBC W/AUTO [id number] 11:23:00* Test Item Value Reference Range Interpretation [...] code = NRBC#) 0.00 K/mm3 0.0-0.1 N [id number] 06:00:00* Test Item Value Reference Range Interpretation Comments GLUBED (test code = GLUBED) 88 mg/dL 74-106 N Performed by certified vegetable loader machine operator at [facility] [id number] 18:28:00* Test Item Value Reference Range Interpretation Comments GLUBED (test code = GLUBED) 94 mg/dL 74-106 N Performed by certified vegetable loader machine operator at [facility] - CT HEAD/BRAIN W/O [id number] 14:49:00 Name: DEO ESCUDERO [facility] : 1955 Age/S: 64 / F [address] [facility] Unit #: [id number] Loc: [place] [address] Phys: Francesco Clement Peamando Griffiths DO Acct: [id number] Dis Date: Status: ADM IN PHONE #: [phone] Exam Date: 07/28/2019 1400 FAX #: [phone] Reason: INCREASED DROWSINESS EXAMS: CPT CODE: [id number] CT HEAD/BRAIN W/O CONT 63552 HISTORY: INCREASED DROWSINESS TECHNIQUE: Noncontrast 2.5 mm [...] similar to th e prior exam. [facility] at 1449 Reported and sig edilberto by: Wade Adams MD PAGE 1 Signed Report (CONTINUED) Name: DEO ESCUDERO [facility] : 1955 Age/S: 64 / F [address] [facility] Unit #: [id number] Loc: [place] [address] Phys: Francesco Clement Griffiths DO Acct: [id number] Dis Date: Status: ADM IN PHONE #: [phone] Exam Date: 07/28/2019 1400 FAX #: [phone] Reason: INCREASED DROWSINESS EXAMS: CPT CODE: [id number] CT HEAD/BRAIN W/O CONT 23263 < Continued> CC: Francesco Clement DO Technologist:Flora Mayen RT(R) CTDI: DLP: Trnscb Date/Time: 07/28/2019 (144) t.SDR.RR31 Orig Print D/T: S: 07/28/2019 (4608) PAGE 2 Signed Report [id number] 12:34:00* Test Item Value Reference Range Interpretation Comments GLUBED (test code = GLUBED) 157 mg/dL 74-106 H Performed by certified vegetable loader machine operator at [facility] [id number] 06:00:00* Test Item Value Reference Range Interpretation Comments GLUBED (test code = GLUBED) 107 mg/dL 74-106 H Performed by certified vegetable loader machine operator at [facility] [id number] 00:14:00* Test Item Value Reference Range Interpretation Comments GLUBED (test code = GLUBED) 115 mg/dL 74-106 H Performed by certified vegetable loader machine operator at [facility] [id number] 18:26:00* Test Item Value Reference Range Interpretation Comments GLUBED (test code = GLUBED) 104 mg/dL 74-106 N Per[facility] by certified vegetable loader machine operator [facility] BASIC METABOLIC [id number] 11:56:00* Test Item Value Reference Range Interpretation [...] CA) 7.5 mg/dL 8.5-10.1 L BASIC METABOLIC [id number] 11:50:00* Test Item Value Reference Range Interpretation [...] code = CA) mg/dL 8.5-10.1 CBC W/AUTO [id number] 11:33:00* Test Item Value Reference Range Interpretation [...] code = NRBC#) 0.00 K/mm3 0.0-0.1 N [id number] 06:56:00* Test Item Value Reference Range Interpretation Comments GLUBED (test code = GLUBED) 90 mg/dL 74-106 N Performed by certified vegetable loader machine operator at [facility] [id number] 00:33:00* Test Item Value Reference Range Interpretation Comments GLUBED (test code = GLUBED) 152 mg/dL 74-106 H Performed by certified vegetable loader machine operator at [facility] [id number] 20:28:00* Test Item Value Reference Range Interpretation Comments GLUBED (test code = GLUBED) 183 mg/dL 74-106 H Performed by certified vegetable loader machine operator at [facility] [id number] 16:57:00* Test Item Value Reference Range Interpretation Comments GLUBED (test code = GLUBED) 169 mg/dL 74-106 H Performed by certified vegetable loader machine operator at [facility] [id number] 11:42:00* Test Item Value Reference Range Interpretation Comments GLUBED (test code = GLUBED) 128 mg/dL 74-106 H Performed by certified vegetable loader machine operator at [facility] [id number] 07:36:00* Test Item Value Reference Range Interpretation Comments GLUBED (test code = GLUBED) 108 mg/dL 74-106 H Performed by certified vegetable loader machine operator at [facility] [id number] 06:27:00* Test Item Value Reference Range Interpretation Comments GLUBED (test code = GLUBED) 102 mg/dL 74-106 N Performed by certified vegetable loader machine operator at [facility] [id number] 00:16:00* Test Item Value Reference Range Interpretation Comments GLUBED (test code = GLUBED) 138 mg/dL 74-106 H Performed by certified vegetable loader machine operator at [facility] [id number] 20:28:00* Test Item Value Reference Range Interpretation Comments GLUBED (test code = GLUBED) 134 mg/dL 74-106 H Performed by certified vegetable loader machine operator at [facility] [id number] 17:32:00* Test Item Value Reference Range Interpretation Comments GLUBED (test code = GLUBED) 107 mg/dL 74-106 H Performed by certified vegetable loader machine operator at [facility] [id number] 11:36:00* Test Item Value Reference Range Interpretation Comments GLUBED (test code = GLUBED) 136 mg/dL 74-106 H Performed by certified vegetable loader machine operator at [facility] [id number] 05:28:00* Test Item Value Reference Range Interpretation Comments GLUBED (test code = GLUBED) 121 mg/dL 74-106 H Performed by certified vegetable loader machine operator at [facility] [id number] 20:08:00* Test Item Value Reference Range Interpretation Comments GLUBED (test code = GLUBED) 169 mg/dL 74-106 H Performed by certified vegetable loader machine operator at [facility] [id number] 17:43:00* Test Item Value Reference Range Interpretation Comments GLUBED (test code = GLUBED) 142 mg/dL 74-106 H Performed by certified vegetable loader machine operator at [facility] [id number] 14:04:00* Test Item Value Reference Range Interpretation Comments GLUBED (test code = GLUBED) 137 mg/dL 74-106 H Performed by certified vegetable loader machine operator at [facility] [id number] 11:03:00* Test Item Value Reference Range Interpretation Comments GLUBED (test code = GLUBED) 141 mg/dL 74-106 H Performed by certified vegetable loader machine operator at [facility] [id number] 08:42:00* Test Item Value Reference Range Interpretation Comments GLUBED (test code = GLUBED) 119 mg/dL 74-106 H Performed by certified vegetable loader machine operator at [facility] BASIC METABOLIC [id number] 08:40:00* Test Item Value Reference Range Interpretation [...] CA) 7.2 mg/dL 8.5-10.1 L BASIC METABOLIC [id number] 08:35:00* Test Item Value Reference Range Interpretation [...] code = CA) mg/dL 8.5-10.1 CBC W/AUTO [id number] 07:56:00* Test Item Value Reference Range Interpretation [...] DIFF REQUIRED (test code = MDIFF) NO [id number] 06:13:00* Test Item Value Reference Range Interpretation Comments GLUBED (test code = GLUBED) 123 mg/dL 74-106 H Performed by certified vegetable loader machine operator at [facility] [id number] 20:48:00* Test Item Value Reference Range Interpretation Comments GLUBED (test code = GLUBED) 147 mg/dL 74-106 H Performed by certified vegetable loader machine operator at [facility] [id number] 19:37:00* Test Item Value Reference Range Interpretation Comments GLUBED (test code = GLUBED) 143 mg/dL 74-106 H Performed by certified vegetable loader machine operator at [facility] [id number] 11:49:00* Test Item Value Reference Range Interpretation Comments GLUBED (test code = GLUBED) 116 mg/dL 74-106 H Performed by certified vegetable loader machine operator at [facility] [id number] 08:42:00* Test Item Value Reference Range Interpretation Comments GLUBED (test code = GLUBED) 118 mg/dL 74-106 H Performed by certified vegetable loader machine operator at [facility] [id number] 06:32:00* Test Item Value Reference Range Interpretation Comments GLUBED (test code = GLUBED) 90 mg/dL 74-106 N Performed by certified vegetable loader machine operator at [facility] [id number] 21:10:00* Test Item Value Reference Range Interpretation Comments GLUBED (test code = GLUBED) 129 mg/dL 74-106 H Performed by certified vegetable loader machine operator at [facility] BASIC METABOLIC [id number] 18:15:00* Test Item Value Reference Range Interpretation [...] CA) 7.0 mg/dL 8.5-10.1 L BASIC METABOLIC [id number] 18:10:00* Test Item Value Reference Range Interpretation [...] CALCIUM (test code = CA) mg/dL 8.5-10.1 [id number] 16:51:00* Test Item Value Reference Range Interpretation Comments GLUBED (test code = GLUBED) 159 mg/dL 74-106 H Performed by certified vegetable loader machine operator at [facility] CBC W/MANUAL [id number] 13:35:00* Test Item Value Reference Range Interpretation [...] code = IMMAT) 0 % 0-0 N [id number] 11:58:00* Test Item Value Reference Range Interpretation Comments GLUBED (test code = GLUBED) 129 mg/dL 74-106 H Performed by certified vegetable loader machine operator at [facility] CBC W/MANUAL [id number] 11:34:00* Test Item Value Reference Range Interpretation [...] code = PLTMORPH) - XR CHEST 1 [id number] 11:09:00 FAX: Francesco Champagne [place]: B St: ADM FAX: Kiley Jones NP [phone] Name: DEO ESCUDERO [facility] : 1955 Age/S: 64/F [address] Unit #: [id number] Loc: V.3093 [place] [address] Phys: Kiley Jones NP Acct: [id number] Dis Date: Status: ADM IN PHONE #: [phone] Exam Date: 07/21/2019 1732 FAX #: [phone] Reason: r/o pneumonia EXAMS: CPT CODE: [id number] XR CHEST 1 V 61072 REASON FOR EXAM: r/o pneumonia Exam Order [...] of cardiomegaly this may represent CHF. [facility] at 1109 Reported and signed by: Wade Adams MD CC: Francesco Clement DO; Kiley Jones NP Technologist: FEMI ERIC Trnscrd Date/Time/By: 07/22/2019 (1100) : By: John CarmichaelRR31 Orig Print D/T: S: 07/22/2019 (9457) PAG E 1 Signed Report GLUBED 2019-07-22 08:05:00* Test Item Value Reference Range Interpretation Comments GLUBED (test code = GLUBED) 92 mg/dL 74-106 N Performed by certified vegetable loader machine operator at [facility] [id number] 05:56:00* Test Item Value Reference Range Interpretation Comments GLUBED (test code = GLUBED) 99 mg/dL 74-106 N Performed by certified vegetable loader machine operator at [facility] [id number] 02:26:00* Test Item Value Reference Range Interpretation Comments GLUBED (test code = GLUBED) 115 mg/dL 74-106 H Performed by certified vegetable loader machine operator at [facility] URINALYSIS [id number] 16:37:00* Test Item Value Reference Range Interpretation [...] BACU) MODERATE #/HPF NONE A Urine Source? [id number] 16:18:00* Test Item Value Reference Range Interpretation Comments GLUBED (test code = GLUBED) 140 mg/dL 74-106 H Performed by certified vegetable loader machine operator at [facility] PROCALCITONIN (PCT)2019-07-21 14:25:00* Test Item Value Reference [...] taking into account the patients history. LACTIC [id number] 13:49:00* Test Item Value Reference Range Interpretation Comments LACTIC ACID (test code = LACT) 0.7 mmol/L 0.4-1.9 N [id number] 11:47:00* Test Item Value Reference Range Interpretation Comments GLUBED (test code = GLUBED) 188 mg/dL 74-106 H Performed by certified vegetable loader machine operator at [facility] [id number] 08:00:00* Test Item Value Reference Range Interpretation Comments GLUBED (test code = GLUBED) 131 mg/dL 74-106 H Performed by certified vegetable loader machine operator at [facility] BASIC METABOLIC [id number] 07:22:00* Test Item Value Reference Range Interpretation [...] code = CA) 7.6 mg/dL 8.5-10.1 L [id number] 07:22:00* Test Item Value Reference Range Interpretation Comments MAGNESIUM (test code = MAG) 1.5 mg/dL 1.8-2.4 L BASIC METABOLIC [id number] 07:20:00* Test Item Value Reference Range Interpretation [...] CALCIUM (test code = CA) mg/dL 8.5-10.1 [id number] 07:20:00* Test Item Value Reference Range Interpretation Comments MAGNESIUM (test code = MAG) mg/dL 1.8-2.4 CBC W/AUTO [id number] 07:03:00* Test Item Value Reference Range Interpretation [...] code = NRBC#) 0.00 K/mm3 0.0-0.1 N [id number] 05:55:00* Test Item Value Reference Range Interpretation Comments GLUBED (test code = GLUBED) 120 mg/dL 74-106 H Performed by certified vegetable loader machine operator at [facility] [id number] 00:30:00* Test Item Value Reference Range Interpretation Comments GLUBED (test code = GLUBED) 133 mg/dL 74-106 H Performed by certified vegetable loader machine operator at [facility] [id number] 20:54:00* Test Item Value Reference Range Interpretation Comments GLUBED (test code = GLUBED) 158 mg/dL 74-106 H Performed by certified vegetable loader machine operator at [facility] [id number] 18:09:00* Test Item Value Reference Range Interpretation Comments GLUBED (test code = GLUBED) 200 mg/dL 74-106 H Performed by certified vegetable loader machine operator at [facility] PARATHYROID HORMONE [id number] 17:06:00* Test Item Value Reference Range Interpretation Comments PARATHYROID HORMONE INTACT (test code = PARAI) 96.30 pgram/mL 8.4-8 8 H VITAMIN [id number] 15:09:00* Test Item Value Reference Range Interpretation Comments VITAMIN B12 (test code = VITB12) 1507 pg/mL 193-986 H THYROID PROFILE [id number] 15:09:00* Test Item Value Reference Range Interpretation [...] HYPER : < 0.35 mIU/mL VITAMIN D 1,82-[id number] 15:09:00* Test Item Value Reference Range Interpretation Comments VITAMIN D 1,25-DIHYDROXY (test code = EIKR114) 9.3 pg/mL 19.9-79 .3 A Performed At: [facility] [id number] Boudreaux MD Ph:[phone] performed at: [facility] [address] [place] [address] BASIC METABOLIC [id number] 12:14:00* Test Item Value Reference Range Interpretation [...] CA) 7.3 mg/dL 8.5-10.1 L BASIC METABOLIC [id number] 12:05:00* Test Item Value Reference Range Interpretation [...] CALCIUM (test code = CA) mg/dL 8.5-10.1 [id number] 11:40:00* Test Item Value Reference Range Interpretation Comments GLUBED (test code = GLUBED) 187 mg/dL 74-106 H Performed by certified vegetable loader machine operator at [facility] CBC W/AUTO [id number] 10:58:00* Test Item Value Reference Range Interpretation [...] DIFF REQUIRED (test code = MDIFF) NO [id number] 07:45:00* Test Item Value Reference Range Interpretation Comments GLUBED (test code = GLUBED) 90 mg/dL 74-106 N Performed by certified vegetable loader machine operator at [facility] [id number] 06:14:00* Test Item Value Reference Range Interpretation Comments GLUBED (test code = GLUBED) 99 mg/dL 74-106 N Performed by certified vegetable loader machine operator at [facility] [id number] 23:48:00* Test Item Value Reference Range Interpretation Comments GLUBED (test code = GLUBED) 134 mg/dL 74-106 H Performed by certified vegetable loader machine operator at [facility] [id number] 16:33:00* Test Item Value Reference Range Interpretation Comments GLUBED (test code = GLUBED) 102 mg/dL 74-106 N Performed by certified vegetable loader machine operator at [facility] [id number] 11:26:00* Test Item Value Reference Range Interpretation Comments GLUBED (test code = GLUBED) 111 mg/dL 74-106 H Performed by certified vegetable loader machine operator at [facility] [id number] 08:45:00* Test Item Value Reference Range Interpretation Comments GLUBED (test code = GLUBED) 120 mg/dL 74-106 H Performed by certified vegetable loader machine operator at [facility] [id number] 06:12:00* Test Item Value Reference Range Interpretation Comments GLUBED (test code = GLUBED) 110 mg/dL 74-106 H Performed by certified vegetable loader machine operator at [facility] [id number] 00:00:00* Test Item Value Reference Range Interpretation Comments GLUBED (test code = GLUBED) 102 mg/dL 74-106 N Performed by certified vegetable loader machine operator at [facility] [id number] 15:36:00* Test Item Value Reference Range Interpretation Comments GLUBED (test code = GLUBED) 87 mg/dL 74-106 N Performed by certified vegetable loader machine operator at [facility] HEPATITIS B CORE ANTIBODY,[id number] 13:08:00* Test Item Value Reference Range Interpretation Comments HEPATITIS B CORE ANTIBODY,TOT (test code = HBCAB) Negative Nega tive Performed At: [address] [id number] Kyle L MD Ph:[phone] [id number] 11:22:00* Test Item Value Reference Range Interpretation Comments GLUBED (test code = GLUBED) 91 mg/dL 74-106 N Performed by certified vegetable loader machine operator at [facility] [id number] 07:34:00* Test Item Value Reference Range Interpretation Comments GLUBED (test code = GLUBED) 75 mg/dL 74-106 N Performed by certified vegetable loader machine operator at [facility] [id number] 06:15:00* Test Item Value Reference Range Interpretation Comments GLUBED (test code = GLUBED) 89 mg/dL 74-106 N Performed by certified vegetable loader machine operator at [facility] AB HEPATITIS B [id number] 06:09:00* Test Item Value Reference Range Interpretation Comments AB HEPATITIS B SURFACE (test code = HBSAB) Non Reactive () Non Reactive: Inconsistent with immunity, less than 10 mIU/mL Reactive: Consistent with immunity, greater than 9.9 mIU/mLPerformed At: LabCo[address] [id number] Kevin Kwon MD Ph:[phone] [id number] 01:40:00* Test Item Value Reference Range Interpretation Comments GLUBED (test code = GLUBED) 114 mg/dL 74-106 H Performed by certified vegetable loader machine operator at [facility] [id number] 21:18:00* Test Item Value Reference Range Interpretation Comments GLUBED (test code = GLUBED) 161 mg/dL 74-106 H Performed by certified vegetable loader machine operator at [facility] [id number] 11:16:00* Test Item Value Reference Range Interpretation Comments GLUBED (test code = GLUBED) 159 mg/dL 74-106 H Performed by certified vegetable loader machine operator at [facility] BASIC METABOLIC [id number] 08:16:00* Test Item Value Reference Range Interpretation [...] CA) 7.1 mg/dL 8.5-10.1 L BASIC METABOLIC [id number] 08:05:00* Test Item Value Reference Range Interpretation [...] code = CA) mg/dL 8.5-10.1 CBC W/O [id number] 08:04:00* Test Item Value Reference Range Interpretation [...] code = MPV) 10.8 fL 6.7-11.0 N [id number] 07:47:00* Test Item Value Reference Range Interpretation Comments GLUBED (test code = GLUBED) 125 mg/dL 74-106 H Performed by certified vegetable loader machine operator at [facility] VITAMIN [id number] 06:44:00* Test Item Value Reference Range Interpretation Comments VITAMIN B12 (test code = VITB12) 1507 pg/mL 193-986 H THYROID PROFILE [id number] 06:44:00* Test Item Value Reference Range Interpretation [...] HYPER : < 0.35 mIU/mL VITAMIN D 1,14-[id number] 06:44:00* Test Item Value Reference Range Interpretation Comments VITAMIN D 1,25-DIHYDROXY (test code = VQUC264) pgram/mL [id number] 06:10:00* Test Item Value Reference Range Interpretation Comments AMMONIA (test code = AMM) < 10 umol/L 11-32 L [id number] 05:32:00* Test Item Value Reference Range Interpretation Comments GLUBED (test code = GLUBED) 113 mg/dL 74-106 H Performed by certified vegetable loader machine operator at [facility] - CT HEAD/BRAIN W/O [id number] 23:35:00 Name: DEO ESCUDERO [facility] : 1955 Age/S: 64 [facility] F [address] [facility]: [id number] Loc: [place] [address] Phys: Nadia Sow MD Acct: [id number] Dis Date: Status: ADM IN PHONE #: [phone] Exam Date: 07/16/2019 2307 FAX #: [phone] Reason: ams EXAMS: CPT CODE: [id number] CT HEAD/BRAIN W/O CONT 82646 DICTATION LOCATION: H48 HISTORY: Female, 64 years [...] both basal ganglia and internal capsules. at 2330 Reporte d and signed by: Kathy Maria MD CC: Francesco Clement DO; Nadia Vega MD Technologist:CHRISTINE Tillman CTDI: DLP: Trnscb Date/Time: 07/16/2019 (2958) tJOSESITOW Orig Print D/T: S: 07/16/2019 (7975) PAGE 1 Signed Report [id number] 23:14:00* Test Item Value Reference Range Interpretation Comments GLUBED (test code = GLUBED) 111 mg/dL 74-106 H Performed by certified vegetable loader machine operator at [facility] [id number] 16:30:00* Test Item Value Reference Range Interpretation Comments GLUBED (test code = GLUBED) 65 mg/dL 74-106 L [facility] certified vegetable loader machine [facility] [id number] 08:18:00* Test Item Value Reference Range Interpretation Comments GLUBED (test code = GLUBED) 75 mg/dL 74-106 N Performed by certified vegetable loader machine operator at [facility] [id number] 06:47:00* Test Item Value Reference Range Interpretation Comments GLUBED (test code = GLUBED) 72 mg/dL 74-106 L Performed by certified vegetable loader machine operator at [facility] [id number] 00:54:00* Test Item Value Reference Range Interpretation Comments GLUBED (test code = GLUBED) 82 mg/dL 74-106 N Performed by certified vegetable loader machine operator at [facility] [id number] 18:39:00* Test Item Value Reference Range Interpretation Comments GLUBED (test code = GLUBED) 116 mg/dL 74-106 H Performed by certified vegetable loader machine operator at [facility] URINALYSIS [id number] 15:45:00* Test Item Value Reference Range Interpretation [...] #/LPF FEW Urine Source? CatheterAG HEPAT B [id number] 13:17:00* Test Item Value Reference Range Interpretation Comments AG HEPAT B SURF (test code = HBSAG) Nonreactive Index Nonreactive Blood [id number] 12:08:00* Test Item Value Reference Range Interpretation Comments Blood Culture (test code = [id number]) NO GROWTH AFTER 5 DAYS, [facility] [id number] 12:08:00* Test Item Value Reference Range Interpretation Comments Blood Culture (test code = [id number]) NO GROWTH AFTER 5 DAYS, FINAL REPORT [facility] [id number] 12:08:00* Test Item Value Reference Range Interpretation Comments Blood Culture (test code = [id number]) NO GROWTH AFTER 5 DAYS, [facility] [id number] 12:08:00* Test Item Value Reference Range Interpretation Comments Blood Culture (test code = 25389985) NO GROWTH AFTER 5 DAYS, FINAL REPORT [facility] CenterGLUBED2020-01-22 11:20:00* Test Item Value Reference Range Interpretation Comments GLUBED (test code = GLUBED) 73 mg/dL 74-106 L Performed by certified vegetable loader machine operator at [facility] BASIC METABOLIC PNJKU9791-47-35 10:46:00* Test Item Value Reference Range Interpretation [...] code = CA) 7.8 mg/dL 8.5-10.1 L DXXVPWPCGP2112-75-64 10:46:00* Test Item Value Reference Range Interpretation Comments PHOSPHORUS (test code = PHOS) 3.7 mg/dL 2.5-4.9 N BASIC METABOLIC GJMEF2961-85-53 10:34:00* Test Item Value Reference Range Interpretation [...] CALCIUM (test code = CA) mg/dL 8.5-10.1 AXNIYLJAVW5073-28-93 10:34:00* Test Item Value Reference Range Interpretation Comments PHOSPHORUS (test code = PHOS) mg/dL 2.5-4.9 CBC W/AUTO AWWE3466-18-10 10:26:00* Test Item Value Reference Range Interpretation [...] code = NRBC#) 0.00 K/mm3 0.0-0.1 N TGFHOS7344-73-08 07:46:00* Test Item Value Reference Range Interpretation Comments GLUBED (test code = GLUBED) 65 mg/dL 74-106 L Performed by certified vegetable loader machine operator at [facility] CRLIIZ6177-71-15 05:47:00* Test Item Value Reference Range Interpretation Comments GLUBED (test code = GLUBED) 67 mg/dL 74-106 L Performed by certified vegetable loader machine operator at [facility] Bedside Xobbcjw5210-49-87 21:13:00* Test Item Value Reference Range Interpretation Comments Bedside Glucose (test code = 05272-9) 74 70-120 Meter ID: [id number] Dallas Medical CenterPotassium Level 2019-07-14 12:16:00* Test Item Value Reference Range Interpretation Comments Potassium Level (test code = 2823-3) 3.5 3.5-5.1 [facility] CenterBlood Lyuqgbh8482-15-79 12:08:00* Test Item Value Reference Range Interpretation Comments Blood Culture (test code = 84323787) NO GROWTH AFTER 72 HOURS [facility] CenterHepatitis B Surface Tqccpsn5414-03-11 11:08:00* Test Item Value Reference Range Interpretation Comments Hepatitis B Surface Antigen (test code = 5196-1) Negative Testing performed by:[facility] [id number]: Kevin Lino [facility] Resourcesodium Level 2019-07-13 06:02:00* Test Item Value Reference Range Interpretation Comments Sodium Level (test code = 2951-2) 139 136-145 [facility] CenterChloride Fvohe1773-27-07 06:02:00* Test Item Value Reference Range Interpretation Comments Chloride Level (test code = 2075-0) 102 98-107 [facility] CenterCarbon Dioxide Kowsm5414-49-52 06:02:00* Test Item Value Reference Range Interpretation Comments Carbon Dioxide Level (test code = 2028-9) 25 22-29 [facility] CenterAnion Nrd2998-59-10 06:02:00* Test Item Value Reference Range Interpretation Comments Anion Gap (test code = 16847-7) 15.4 8-16 [facility] CenterBlood Urea Accshsxs6214-12-96 06:02:00* Test Item Value Reference Range Interpretation Comments Blood Urea Nitrogen (test code = 3094-0) 11 7-26 [facility] CenterCreatinine2020-01-20 06:02:00* Test Item Value Reference Range Interpretation Comments Creatinine (test code = 2160-0) 3.76 0.57-1.11 H [facility] CenterBUN/Creatinine Tyown1941-56-46 06:02:00* Test Item Value Reference Range Interpretation Comments BUN/Creatinine Ratio (test code = 3097-3) 3 6-25 L [facility] CenterEstimat Glomerular Filtration Rate 2019-07-13 06:02:00* Test Item Value Reference Range Interpretation Comments Estimat Glomerular Filtration Rate (test code = 519385067) 12 >60 L Ranges were taken from the National Kidney Disease Education Program and the formerly [facility] Kidney Foundation literature.Reference ranges:60 or greater: Rtwfdj69-63 ( for 3 consecutive months): Chronic kidney disease 15 or less: Kidney failureMethodist Dallas Medical CenterGlucose Nvqhj0317-89-65 06:02:00* Test Item Value Reference Range Interpretation Comments Glucose Level (test code = BFY7572) 65 74-118 L [facility] CenterCalcium Gxsjo0086-48-86 06:02:00* Test Item Value Reference Range Interpretation Comments Calcium Level (test code = 12198-4) 7.1 8.4-10.2 L [facility] CenterWhite Blood Ijimx5907-81-63 05:56:00* Test Item Value Reference Range Interpretation Comments White Blood Count (test code = 6690-2) 8.50 4.8-10.8 [facility] CenterRed Blood Mhyvb2320-78-70 05:56:00* Test Item Value Reference Range Interpretation Comments Red Blood Count (test code = 789-8) 3.66 3.6-5.1 [facility] CenterHemoglobin2020-01-20 05:56:00* Test Item Value Reference Range Interpretation Comments Hemoglobin (test code = 66026-4) 9.8 12.0-16.0 L [facility] CenterHematocrit2020-01-20 05:56:00* Test Item Value Reference Range Interpretation Comments Hematocrit (test code = 4544-3) 32.5 34.2-44.1 L [facility] CenterMean Corpuscular Tnehpe0196-99-91 05:56:00* Test Item Value Reference Range Interpretation Comments Mean Corpuscular Volume (test code = 787-2) 88.8 81-99 [facility] CenterMean Corpuscular Cytdwebrhq0955-88-93 05:56:00* Test Item Value Reference Range Interpretation Comments Mean Corpuscular Hemoglobin (test code = 785-6) 26.8 28-32 L [facility] CenterMean Corpuscular Hemoglobin Concent 2019-07-13 05:56:00* Test Item Value Reference Range Interpretation Comments Mean Corpuscular Hemoglobin Concent (test code = 786-4) 30.2 31-35 L [facility] CenterRed Cell Distribution Kdncw6457-14-38 05:56:00* Test Item Value Reference Range Interpretation Comments Red Cell Distribution Width (test code = 09449-2) 15.0 11.7 -14.4 H [facility] CenterPlatelet Yrgis5626-90-74 05:56:00* Test Item Value Reference Range Interpretation Comments Platelet Count (test code = 777-3) 309 140-360 [facility] CenterNeutrophils (%) (Auto)2019-07-13 05:56:00 * Test Item Value Reference Range Interpretation Comments Neutrophils (%) (Auto) (test code = 32453-2) 63.9 38.7-80.0 [facility] CenterLymphocytes (%) (Auto)2019-07-13 05:56:00 * Test Item Value Reference Range Interpretation Comments Lymphocytes (%) (Auto) (test code = 736-9) 21.8 18.0-39.1 [facility] CenterMonocytes (%) (Auto)2019-07-13 05:56:00* Test Item Value Reference Range Interpretation Comments Monocytes (%) (Auto) (test code = 5905-5) 7.4 4.4-11.3 [facility] CenterEosinophils (%) (Auto)2019-07-13 05:56:00 * Test Item Value Reference Range Interpretation Comments Eosinophils (%) (Auto) (test code = 713-8) 4.8 0.0-6.0 [facility] CenterBasophils (%) (Auto)2019-07-13 05:56:00* Test Item Value Reference Range Interpretation Comments Basophils (%) (Auto) (test code = 706-2) 0.9 0.0-1.0 [facility] CenterIM GRANULOCYTES %2019-07-13 05:56:00* Test Item Value Reference Range Interpretation Comments IM GRANULOCYTES % (test code = IM GRANULOCYTES %) 1.2 0.0- 1.0 H [facility] CenterNeutrophils # (Auto)2019-07-13 05:56:00* Test Item Value Reference Range Interpretation Comments Neutrophils # (Auto) (test code = 751-8) 5.4 2.1-6.9 [facility] CenterLymphocytes # (Auto)2019-07-13 05:56:00* Test Item Value Reference Range Interpretation Comments Lymphocytes # (Auto) (test code = 49028-0) 1.9 1.0-3.2 [facility] CenterMonocytes # (Auto)2019-07-13 05:56:00* Test Item Value Reference Range Interpretation Comments Monocytes # (Auto) (test code = 742-7) 0.6 0.2-0.8 [facility] CenterEosinophils # (Auto)2019-07-13 05:56:00* Test Item Value Reference Range Interpretation Comments Eosinophils # (Auto) (test code = 711-2) 0.4 0.0-0.4 [facility] CenterBasophils # (Auto)2019-07-13 05:56:00* Test Item Value Reference Range Interpretation Comments Basophils # (Auto) (test code = 704-7) 0.1 0.0-0.1 [facility] CenterAbsolute Immature Granulocyte (auto 2019-07-13 05:56:00* Test Item Value Reference Range Interpretation Comments Absolute Immature Granulocyte (auto (jake t code = Absolute Immature Granulocyte (auto) 0.10 0-0.1 [facility] FB5380-59-99 16:09:00 [facility] [address] [address] Patient Name: DEO ESCUDERO MR #: [id number] : 1955 Age/Sex: 64/F Req #: [id number] Adm Physician: CELENA CHRISTENSEN MD Ordered by: Abdirashid Alford NP Report #: [id number] Location: [facility] Room/Bed: 285-1 Procedure: [id number] CT/ CT ABDOMEN WO Exam Date: 07/10/19 [...] MD 18 Transcribed By: MONO SALAZAR on 07/10/191618 COPY TO: ABDIRASHID ALFORD NP CT CHEST WO 2019-07-10 16:09:[address] [address] Patient Name: DEO ESCUDERO MR #: [id number] : 1955 Age/Sex: 64/F Req #: [id number] Adm Physician: CELENA CHRISTENSEN MD Ordered by: Abdirashid Alford NP Report #: [id number] Location: MED/SURG3 Room/Bed: 285-1 Procedure: [id number] CT/ CT CHEST WO Exam Date: 07/10/19 [...] SCAR on 07/10/191618 COPY TO: ABDIRASHID ALFORD CONFIGURATION SPECIALIST MODIFIED BA. SWALLOW 2019-07-10 14:46:00 [address] [address] Patient Name: DEO ESCUDERO MR #: [id number] : 1955 Age/Sex: 64/F Req #: [id number] Adm Physician: CELENA CHRISTENSEN MD Ordered by: CELENA CHRISTENSEN MD Report #: [id number] Location: MED/SURG3 Room/Bed: 285-1 Procedure: [id number] DX/M ODIFIED BA. SWALLOW Exam Date: 07/09/19 [...] 1446 COPY TO: CELENA CHRISTENSEN MD Urine KVI0367-70-19 13:01:00* Test Item Value Reference Range Interpretation Comments Urine WBC (test code = 5821-4) >50 0-5 H [facility] CenterUrine BEK9545-91-36 13:01:00* Test Item Value Reference Range Interpretation Comments Urine RBC (test code = 79002-1) >50 0-5 H [facility] CenterUrine Vfkulojx6158-58-57 13:01:00* Test Item Value Reference Range Interpretation Comments Urine Bacteria (test code = 66722-2) MANY NONE H [facility] CenterUrine Epithelial Fxcxe2406-54-97 13:01:00 * Test Item Value Reference Range Interpretation Comments Urine Epithelial Cells (test code = 35354-2) MANY NONE [facility] CenterUrine AYS3420-11-75 13:01:00* Test Item Value Reference Range Interpretation Comments Urine WBC (test code = 5821-4) >50 0-5 H [facility] CenterUrine BIS9701-57-85 13:01:00* Test Item Value Reference Range Interpretation Comments Urine RBC (test code = 65872-1) >50 0-5 H [facility] CenterUrine Oarkynyg7660-59-45 13:01:00* Test Item Value Reference Range Interpretation Comments Urine Bacteria (test code = 93592-9) MANY NONE H [facility] CenterUrine Epithelial Bicix5611-62-70 13:01:00 * Test Item Value Reference Range Interpretation Comments Urine Epithelial Cells (test code = 90668-3) MANY NONE [facility] CenterUrine Piqpi6876-34-12 12:48:00* Test Item Value Reference Range Interpretation Comments Urine Color (test code = 5778-6) YELLOW YELLOW [facility] CenterUrine Rxvgkar0689-17-71 12:48:00* Test Item Value Reference Range Interpretation Comments Urine Clarity (test code = 41074-6) CLEAR CLEAR [facility] Specific Efgiijm7280-39-00 12:48:00 * Test Item Value Reference Range Interpretation Comments Urine Specific [place] (test code = 5811-5) 1.015 1.010-1.02 5 [facility] CenterUrine fG5582-37-56 12:48:00* Test Item Value Reference Range Interpretation Comments Urine pH (test code = 86875-9) 8.5 5-7 [facility] CenterUrine Leukocyte Iddkccip5736-02-96 12:48:00* Test Item Value Reference Range Interpretation Comments Urine Leukocyte Esterase (test code = 5799-2) TRACE NEGATIVE H [facility] CenterUrine Idlcwyp0375-78-86 12:48:00* Test Item Value Reference Range Interpretation Comments Urine Nitrite (test code = 56091-9) NEGATIVE NEGATIVE [facility] CenterUrine Deucugq9084-22-20 12:48:00* Test Item Value Reference Range Interpretation Comments Urine Protein (test code = 5804-0) 3+ NEGATIVE H [facility] CenterUrine Glucose (UA)2019-07-10 12:48:00* Test Item Value Reference Range Interpretation Comments Urine Glucose (UA) (test code = 2349-9) 1+ NEGATIVE H [facility] CenterUrine Jdkcfdq6280-53-58 12:48:00* Test Item Value Reference Range Interpretation Comments Urine Ketones (test code = 82385-5) 2+ NEGATIVE [facility] Cabxpmmxhpia3464-13-73 12:48:00* Test Item Value Reference Range Interpretation Comments Urine Urobilinogen (test code = 52565-9) 0.2 0.2-1 [facility] CenterUrine Emtdcbgyj3683-28-89 12:48:00* Test Item Value Reference Range Interpretation Comments Urine Bilirubin (test code = 1978-6) MODERATE NEGATIVE [facility] CenterUrine Rsqtk9643-66-40 12:48:00* Test Item Value Reference Range Interpretation Comments Urine Blood (test code = 18815-7) TRACE NEGATIVE [facility] CenterUrine Vwmlv6881-24-57 12:48:00* Test Item Value Reference Range Interpretation Comments Urine Color (test code = 5778-6) YELLOW YELLOW [facility] CenterUrine Tguibzj5782-36-01 12:48:00* Test Item Value Reference Range Interpretation Comments Urine Clarity (test code = 06599-5) CLEAR CLEAR [facility] CenterUrine Specific Gzkggou2882-64-83 12:48:00 * Test Item Value Reference Range Interpretation Comments Urine Specific [place] (test code = 5811-5) 1.015 1.010-1.02 5 [facility] CenterUrine bD5353-71-39 12:48:00* Test Item Value Reference Range Interpretation Comments Urine pH (test code = 33006-2) 8.5 5-7 [facility] CenterUrine Leukocyte Owhrhehl4015-54-71 12:48:00* Test Item Value Reference Range Interpretation Comments Urine Leukocyte Esterase (test code = 5799-2) TRACE NEGATIVE H [facility] CenterUrine Lydefio4395-92-34 12:48:00* Test Item Value Reference Range Interpretation Comments Urine Nitrite (test code = 66696-3) NEGATIVE NEGATIVE [facility] CenterUrine Hywwqyr2906-20-08 12:48:00* Test Item Value Reference Range Interpretation Comments Urine Protein (test code = 5804-0) 3+ NEGATIVE H [facility] CenterUrine Glucose (UA)2019-07-10 12:48:00* Test Item Value Reference Range Interpretation Comments Urine Glucose (UA) (test code = 2349-9) 1+ NEGATIVE H [facility] CenterUrine Ryjcrug8452-00-31 12:48:00* Test Item Value Reference Range Interpretation Comments Urine Ketones (test code = 55009-1) 2+ NEGATIVE H [facility] CenterUrine Uqhiyqgntbul1746-99-26 12:48:00* Test Item Value Reference Range Interpretation Comments Urine Urobilinogen (test code = 07287-9) 0.2 0.2-1 [facility] CenterUrine Okfvuuzyi3133-24-03 12:48:00* Test Item Value Reference Range Interpretation Comments Urine Bilirubin (test code = 1978-6) MODERATE NEGATIVE [facility] CenterUrine Krrfe2034-01-13 12:48:00* Test Item Value Reference Range Interpretation Comments Urine Blood (test code = 93615-3) TRACE NEGATIVE [facility] CenterBlood dzmjklo6561-43-37 11:00:00* Test Item Value Reference Range Interpretation Comments Blood Culture (test code = 50996850) NO GROWTH AFTER 5 DAYS, [facility] qtlypdl3856[facility]-42 11:00:00* Test Item Value Reference Range Interpretation Comments Blood Culture (test code = 40485319) NO GROWTH AFTER 5 DAYS, FINAL REPORT [facility] CenterCHEST SINGLE (PORTABLE)2019-07-09 16:02:00 [facility] [address] [address] Patient Name: DEO ESCUDERO MR #: [id number] : 1955 Age/Sex: 64/F Req #: [id number] Adm Physician: CELENA CHRISTENSEN MD Ordered by: VIRAL SCHULZ MD Report #: [id number] Location: MED/SURG3 Room/Bed: [facility] Procedure: [id number] DX/[facility] SINGLE (PORTABLE) Exam Date: 07/09/19 [...] 1603 COPY TO: ODALIS SCHULZ MD Total Kkbitvqmz2332-40-22 06:10:00* Test Item Value Reference Range Interpretation Comments Total Bilirubin (test code = 1975-2) 0.3 0.2-1.2 [facility] CenterAspartate Amino Transf (AST/SGOT) 2019-07-09 06:10:00* Test Item Value Reference Range Interpretation Comments Aspartate Amino Transf (AST/SGOT) (test code = Aspartate Amino Transf (AST/SGOT)) 18 5-34 [facility] CenterAlanine Aminotransferase (ALT/SGPT) 2019-07-09 06:10:00* Test Item Value Reference Range Interpretation Comments Alanine Aminotransferase (ALT/SGPT) (test code = 1742-6) 9 0-55 [facility] CenterTotal Rkiuhfx2942-17-32 06:10:00* Test Item Value Reference Range Interpretation Comments Total Protein (test code = 2885-2) 4.8 6.5-8.1 L [facility] CenterAlbumin2020-01-16 06:10:00* Test Item Value Reference Range Interpretation Comments Albumin (test code = 1751-7) 1.9 3.5-5.0 L [facility] CenterGlobulin2020-01-16 06:10:00* Test Item Value Reference Range Interpretation Comments Globulin (test code = 05616-8) 2.9 2.3-3.5 [facility] CenterAlbumin/Globulin Qasit5000-82-81 06:10:00 * Test Item Value Reference Range Interpretation Comments Albumin/Globulin Ratio (test code = 1759-0) 0.7 0.8-2.0 L [facility] CenterAlkaline Kymcimyoiqj4421-22-85 06:10:00* Test Item Value Reference Range Interpretation Comments Alkaline Phosphatase (test code = 6768-6) 53 40-150 [facility] CenterCT BRAIN YB6125-68-13 11:32:00 [facility] [address] [address] Patient Name: DEO ESCUDERO MR #: [id number] : 1955 Age/Sex: 64/F Req #: [id number] Adm Physician: CELENA CHRISTENSEN MD Ordered by: NADIA SOW MD Report #: [id number] Location: ICU Room/Bed: ICU [facility] Procedure: [id number] CT /CT BRAIN WO Exam Date: Exam [...] NADIA SOW MD CHEST SINGLE (PORTABLE)2019-07-07 06:47:00 [address] [address] Patient Name: DEO ESCUDERO MR #: [id number] : 1955 Age/Sex: 64/F Req #: [id number] Adm Physician: CELENA CHRISTENSEN MD Ordered by: VIRAL SCHULZ MD Report #: [id number] Location: ICU Room/Bed: ICU [facility] Procedure: [id number] DX/[facility] SINGLE (PORTABLE) Exam Date: 07/07/19 [...] TO: VIRAL SCHULZ MD Differential Total Cells Lrcsoaz2061-97-31 06:43:00* Test Item Value Reference Range Interpretation Comments Differential Total Cells Counted (test code = Differen tial Total Cells Counted) 100 [facility] CenterNeutrophils % (Manual)2019-07-06 06:43:00 * Test Item Value Reference Range Interpretation Comments Neutrophils % (Manual) (test code = 26224-6) 82 40-74 H [facility] CenterLymphocytes % (Manual)2019-07-06 06:43:00 * Test Item Value Reference Range Interpretation Comments Lymphocytes % (Manual) (test code = 737-7) 15 19-48 L [facility] CenterMonocytes % (Manual)2019-07-06 06:43:00* Test Item Value Reference Range Interpretation Comments Monocytes % (Manual) (test code = 744-3) 3 3.4-9.0 L [facility] CenterPlatelet Wwaxxvjs2045-56-76 06:43:00* Test Item Value Reference Range Interpretation Comments Platelet Estimate (test code = 04626-5) ADEQUATE [facility] CenterPlatelet Morphology Gmgdhuy7260-30-36 06:43:00* Test Item Value Reference Range Interpretation Comments Platelet Morphology Comment (test code = 56245-3) NORMAL [facility] CenterRed Cell Morphology Wlsvfuw4188-64-75 06:43:00* Test Item Value Reference Range Interpretation Comments Red Cell Morphology Comment (test code = 6742-1) NORMAL [facility] CenterDifferential Total Cells Counted 2019-07-06 06:43:00* Test Item Value Reference Range Interpretation Comments Differential Total Cells Counted (test code = Differrocco tial Total Cells Counted) 100 [facility] CenterNeutrophils % (Manual)2019-07-06 06:43:00 * Test Item Value Reference Range Interpretation Comments Neutrophils % (Manual) (test code = 06627-6) 82 40-74 H [facility] CenterLymphocytes % (Manual)2019-07-06 06:43:00 * Test Item Value Reference Range Interpretation Comments Lymphocytes % (Manual) (test code = 737-7) 15 19-48 L [facility] CenterMonocytes % (Manual)2019-07-06 06:43:00* Test Item Value Reference Range Interpretation Comments Monocytes % (Manual) (test code = 744-3) 3 3.4-9.0 L [facility] CenterPlatelet Lcfinelo9409-64-94 06:43:00* Test Item Value Reference Range Interpretation Comments Platelet Estimate (test code = 14943-3) ADEQUATE [facility] CenterPlatelet Morphology Vdsmkuj9008-93-90 06:43:00* Test Item Value Reference Range Interpretation Comments Platelet Morphology Comment (test code = 28247-7) NORMAL [facility] CenterRed Cell Morphology Qkomvmk2324-69-24 06:43:00* Test Item Value Reference Range Interpretation Comments Red Cell Morphology Comment (test code = 6742-1) NORMAL [facility] CenterDifferential Total Cells Counted 2019-07-06 06:43:00* Test Item Value Reference Range Interpretation Comments Differential Total Cells Counted (test code = Differen tial Total Cells Counted) 100 [facility] CenterNeutrophils % (Manual)2019-07-06 06:43:00 * Test Item Value Reference Range Interpretation Comments Neutrophils % (Manual) (test code = 61430-2) 82 40-74 H [facility] CenterLymphocytes % (Manual)2019-07-06 06:43:00 * Test Item Value Reference Range Interpretation Comments Lymphocytes % (Manual) (test code = 737-7) 15 19-48 L [facility] CenterMon[facility] % (Manual)2019-07-06 06:43:00* Test Item Value Reference Range Interpretation Comments Monocytes % (Manual) (test code = 744-3) 3 3.4-9.0 L [facility] CenterPlatelet Exemrizs3397-93-63 06:43:00* Test Item Value Reference Range Interpretation Comments Platelet Estimate (test code = 97358-5) ADEQUATE [facility] CenterPlatelet Morphology Zghotbj2864-21-75 06:43:00* Test Item Value Reference Range Interpretation Comments Platelet Morphology Comment (test code = 19958-8) NORMAL [facility] CenterRed Cell Morphology Usqotxc4946-55-18 06:43:00* Test Item Value Reference Range Interpretation Comments Red Cell Morphology Comment (test code = 6742-1) NORMAL [facility] CenterDifferential Total Cells Counted 2019-07-06 06:43:00* Test Item Value Reference Range Interpretation Comments Differential Total Cells Counted (test code = Differen tial Total Cells Counted) 100 [facility] CenterNeutrophils % (Manual)2019-07-06 06:43:00 * Test Item Value Reference Range Interpretation Comments Neutrophils % (Manual) (test code = 21823-4) 82 40-74 H [facility] CenterLymphocytes % (Manual)2019-07-06 06:43:00 * Test Item Value Reference Range Interpretation Comments Lymphocytes % (Manual) (test code = 737-7) 15 19-48 L [facility] CenterMonocytes % (Manual)2019-07-06 06:43:00* Test Item Value Reference Range Interpretation Comments Monocytes % (Manual) (test code = 744-3) 3 3.4-9.0 L [facility] CenterPlatelet Rtiuoawm2320-80-11 06:43:00* Test Item Value Reference Range Interpretation Comments Platelet Estimate (test code = 45991-5) ADEQUATE [facility] CenterPlatelet Morphology Dopvygf6561-84-80 06:43:00* Test Item Value Reference Range Interpretation Comments Platelet Morphology Comment (test code = 12578-9) NORMAL [facility] CenterRed Cell Morphology Iifcdaj4583-38-40 06:43:00* Test Item Value Reference Range Interpretation Comments Red Cell Morphology Comment (test code = 6742-1) NORMAL [facility] CenterDifferential Total Cells Counted 2019-07-06 06:43:00* Test Item Value Reference Range Interpretation Comments Differential Total Cells Counted (test code = Differrocco tial Total Cells Counted) 100 [facility] CenterNeutrophils % (Manual)2019-07-06 06:43:00 * Test Item Value Reference Range Interpretation Comments Neutrophils % (Manual) (test code = 17661-2) 82 40-74 H [facility] CenterLymphocytes % (Manual)2019-07-06 06:43:00 * Test Item Value Reference Range Interpretation Comments Lymphocytes % (Manual) (test code = 737-7) 15 19-48 L [facility] CenterMonocytes % (Manual)2019-07-06 06:43:00* Test Item Value Reference Range Interpretation Comments Monocytes % (Manual) (test code = 744-3) 3 3.4-9.0 L [facility] CenterPlatelet Kirgplop5584-20-79 06:43:00* Test Item Value Reference Range Interpretation Comments Platelet Estimate (test code = 39634-0) ADEQUATE [facility] CenterPlatelet Morphology Yxthlff8692-07-92 06:43:00* Test Item Value Reference Range Interpretation Comments Platelet Morphology Comment (test code = 27913-1) NORMAL [facility] CenterRed Cell Morphology Vhibeaw7097-92-79 06:43:00* Test Item Value Reference Range Interpretation Comments Red Cell Morphology Comment (test code = 6742-1) NORMAL [facility] CenterMagnesium Vonnm4539-47-53 03:31:00* Test Item Value Reference Range Interpretation Comments Magnesium Level (test code = 71638-1) 1.5 1.3-2.1 [facility] CenterFluoroscopic procedure less than one hour yciyaips7180-08-28 02:00:00* Test Item Value Reference Range Interpretation Comments Differential Total Cells Counted (test code = Differen tial Total Cells Counted) 100 [facility]100 leukocytes 2019-07-06 02:00:00* Test Item Value Reference Range Interpretation Comments Neutrophils % (Manual) (test code = 49560-0) 82 40-74 [facility] blood lymphocytes/100 leukocytes 2019-07-06 02:00:00* Test Item Value Reference Range Interpretation Comments Lymphocytes % (Manual) (test code = 737-7) 15 19-48 [facility] blood monocytes/100 leukocytes 2019-07-06 02:00:00* Test Item Value Reference Range Interpretation Comments Monocytes % (Manual) (test code = 744-3) 3 3.4-9.0 [facility] CenterBlood platelets count by estimate (number/volume)2019-07-06 02:00:00* Test Item Value Reference Range Interpretation Comments Platelet Estimate (test code = 45417-5) ADEQUATE [facility] CenterPlatelet anyldsytco7861-69-30 02:00:00* Test Item Value Reference Range Interpretation Comments Platelet Morphology Comment (test code = 22533-8) NORMAL [facility] CenterRB ttlwwwfzcn4082-87-20 02:00:00* Test Item Value Reference Range Interpretation Comments Red Cell Morphology Comment (test code = 6742-1) NORMAL [facility] CenterFluoroscopic procedure less than one hour xlsqwbcn5716-80-33 02:00:00* Test Item Value Reference Range Interpretation Comments Differential Total Cells Counted (test code = Differen tial Total Cells Counted) 100 [facility] blood neutrophils/100 leukocytes 2019-07-06 02:00:00* Test Item Value Reference Range Interpretation Comments Neutrophils % (Manual) (test code = 65337-6) 82 40-74 [facility] CenterManual blood lymphocytes/100 leukocytes 2019-07-06 02:00:00* Test Item Value Reference Range Interpretation Comments Lymphocytes % (Manual) (test code = 737-7) 15 19-48 [facility] blood monocytes/100 leukocytes 2019-07-06 02:00:00* Test Item Value Reference Range Interpretation Comments Monocytes % (Manual) (test code = 744-3) 3 3.4-9.0 [facility] CenterBlood platelets count by estimate (number/volume)2019-07-06 02:00:00* Test Item Value Reference Range Interpretation Comments Platelet Estimate (test code = 88503-8) ADEQUATE [facility] CenterPlatelet epdicwwlqs7712-40-72 02:00:00* Test Item Value Reference Range Interpretation Comments Platelet Morphology Comment (test code = 74964-8) NORMAL [facility] CenterRB mrkuthjibd1502-86-78 02:00:00* Test Item Value Reference Range Interpretation Comments Red Cell Morphology Comment (test code = 6742-1) NORMAL [facility] CenterCHEST SINGLE (PORTABLE)2019-07-05 09:33:00 [facility] [address] [place] [address] Patient Name: DEO ESCUDERO MR #: [id number] : 1955 Age/Sex: 64/F Req #: [id number] Adm Physician: CELENA CHRISTENSEN MD Ordered by: VIRAL SCHULZ MD Report #: [id number] Location: ICU Room/Bed: ICU [facility] access hospital Procedure: [id number] DX/[facility] ST SINGLE (PORTABLE) Exam Date: 07/05/19 [...] (Manual) (test code = 714-6) 1 0-7 [facility] CenterEosinophils % (Manual)2019-07-05 08:49:00 * Test Item Value Reference Range Interpretation Comments Eosinophils % (Manual) (test code = 714-6) 1 0-7 [facility] CenterEosinophils % (Manual)2019-07-05 08:49:00 * Test Item Value Reference Range Interpretation Comments Eosinophils % (Manual) (test code = 714-6) 1 0-7 [facility] CenterEosinophils % (Manual)2019-07-05 08:49:00 * Test Item Value Reference Range Interpretation Comments Eosinophils % (Manual) (test code = 714-6) 1 0-7 [facility] CenterEosinophils % (Manual)2019-07-05 08:49:00 * Test Item Value Reference Range Interpretation Comments Eosinophils % (Manual) (test code = 714-6) 1 0-7 [facility] eosinophil count as percentage of total daigxfznat3079-08-02 02:20:00* Test Item Value Reference Range Interpretation Comments Eosinophils % (Manual) (test code = 714-6) 1 0-7 [facility] blood eosinophil count as percentage of total qegudeuvaf5318-80-21 02:20:00* Test Item Value Reference Range Interpretation Comments Eosinophils % (Manual) (test code = 714-6) 1 0-7 [facility] ([facility])2019-07-04 08:48:00* Test Item Value Reference Range Interpretation Comments Basophils % (Manual) (test code = 63993-1) 1 0-1.5 [facility] CenterBasophils % (Manual)2019-07-04 08:48:00* Test Item Value Reference Range Interpretation Comments Basophils % (Manual) (test code = 13071-8) 1 0-1.5 [facility] CenterBasophils % (Manual)2019-07-04 08:48:00* Test Item Value Reference Range Interpretation Comments Basophils % (Manual) (test code = 78261-7) 1 0-1.5 [facility] Center[facility] % (Manual)2019-07-04 08:48:00* Test Item Value Reference Range Interpretation Comments Basophils % (Manual) (test code = 18669-3) 1 0-1.5 [facility] CenterBasophils % (Manual)2019-07-04 08:48:00* Test Item Value Reference Range Interpretation Comments Basophils % (Manual) (test code = 53964-7) 1 0-1.5 [facility] CenterManual basophil jzetpzmuuy6074-98-10 02:15:00* Test Item Value Reference Range Interpretation Comments Basophils % (Manual) (test code = 55428-2) 1 0-1.5 [facility] CenterManual basophil lyrywrmvfx8750-81-87 02:15:00* Test Item Value Reference Range Interpretation Comments Basophils % (Manual) (test code = 96425-9) 1 0-1.5 [facility] VWJUT4844-23-03 20:54:00 [facility] [address] [address] Patient Name: DEO ESCUDERO MR #: [id number] : 1955 Age/Sex: 64/F Req #: [id number] Adm Physician: CELENA CHRISTENSEN MD Ordered by: NADIA SOW MD Report #: [id number] Location: ICU Room/Bed: ICU Critical access hospital Procedure: [id number] CT /CTA BRAIN Exam Date: 07/03/19 Exam [...] the arterial circulation of the neck and algaaciq of [place] were reformatted from th e [...] bilateral superior cerebellar arteries and left P1 SHAREPOINT DESIGNER DEVELOPER segment. Posterior cerebral arteries: Patent bilaterally. The right P1 segment is not visualized and may be absent or hypoplastic beyond resolution of CTA and there is a prom inent right posterior communicator artery which supplies the right SHAREPOINT DESIGNER DEVELOPER (- type SHAREPOINT DESIGNER DEVELOPER origin). Anatomical variants: Acom: Patent. Pcoms: Patent bila terally. Right -type SHAREPOINT DESIGNER DEVELOPER origin. Vertebral arteries: Codominant. Add itional findings: [...] basilar ar ciaran. 5. Anatomical variant right SHAREPOINT DESIGNER DEVELOPER origin. Signed by: Dr. Ronald Wharton M.D. on 07/03/2019 9:42 PM Dictated By: RONALD WHARTON MD Elec tronically Signed By: RONALD WHARTON MD on 07/03/192141 Transcribed By: MONO SALAZAR on 07/03/192141 COPY TO: NADIA SOW MD CTA NECK 2019-07-03 20:54:[address] [address] Patient Name: DEO ESCUDERO MR #: [id number] : 1955 Age/Sex: 64/F Req #: [id number] Adm Physician: CELENA CHRISTENSEN MD Ordered by: NADIA SOW MD Report #: [id number] Location: ICU Room/Bed: ICU Critical access hospital Procedure: [id number] CT /CTA NECK Exam Date: 07/03/19 Exam [...] a rterial circulation of the neck and algaaciq of [place] were reformatted from the axial source data. Dose modulation, iterative reconstruction, and/or weight b ased adjustment of the mA/kV was utilized to reduce the radiation dose to as l ow as reasonably achievable. Intravenous contrast: 100 cc of Isovue-370. Findings: Head CT: Exam limited by artifacts related to patient motio n. In spite of limitations: Subtle loss of amtta-white differentiation in th e left temporal lobe [...] chronic microvascular ischemic changes. No gross ac paige hemorrhage or gross new acute cortical infarct. [...] bilateral superior cerebellar arteries and left P1 SHAREPOINT DESIGNER DEVELOPER segment. Posterior cerebral arteries: Patent bilaterally. The right P1 segment is not visualized and may be absent or hypoplastic beyond resolution of CTA and there is a promi nent right posterior communicator artery which supplies the right SHAREPOINT DESIGNER DEVELOPER (-t ype SHAREPOINT DESIGNER DEVELOPER origin). Anatomical variants: Acom: Patent. Pcoms: Patent bilat erally. Right -type SHAREPOINT DESIGNER DEVELOPER origin. Vertebral arteries: Codominant. Jesus tional findings: [...] basilar art orlin. 5. Anatomical variant right SHAREPOINT DESIGNER DEVELOPER origin. Signed by: Dr. Ronald Wharton M.D. on 07/03/2019 9:42 PM Dictated By: RONALD WHARTON MD Elect ronically Signed By: RONALD WHARTON MD on 07/03/192141 Transcribed By: JARRED Isbell on 07/03/192141 COPY TO: NADIA SOW MD MRI BRAIN WO 2019-07-03 16:21:00 [facility] [address] [address] Patient Name: DEO ESCUDERO MR #: [id number] : 1955 Age/Sex: 64/F Req #: [id number] Adm Physician: CELENA CHRISTENSEN MD Ordered by: Abdirashid Alford CONFIGURATION SPECIALIST Report #: [id number] Location: MED/SURG3 Room/Bed: 284-1 Procedure: [id number] MRI /MRI BRAIN WO Exam Date: Exam Time: REPORT STATUS: Signed Examination: Brain MRI w ithout Contrast History: Altered mental status. Confusion. Comparison [facility]: Brain MRI performed January 02, 2019 Technique: [...] on 07/03/191628 COPY TO: ABDIRASHID ALFORD NP Pjsgxgt7803-30-40 15:56:00* Test Item Value Reference Range Interpretation Comments Ammonia (test code = 17728-6) 41 123 [facility]2020-01-10 15:56:00* Test Item Value Reference Range Interpretation Comments Ammonia (test code = 08769-2) 41 -123 [facility]2020-01-10 15:56:00* Test Item Value Reference Range Interpretation Comments Ammonia (test code = 14059-3) 41 -123 [facility]2020-01-10 15:56:00* Test Item Value Reference Range Interpretation Comments Ammonia (test code = 81496-8) 41 -123 [facility]2020-01-10 15:56:00* Test Item Value Reference Range Interpretation Comments Ammonia (test code = 49512-5) 41 -123 [facility] Kya-mLcl0924-18-10 14:20:00* Test Item Value Reference Range Interpretation Comments Ammonia (test code = 44986-0) 41 31-123 [facility] Yav-wMel7660-59-10 14:20:00* Test Item Value Reference Range Interpretation Comments Ammonia (test code = 21565-9) 41 31-123 [facility] Surface Antibody, Quant 2019-07-03 10:33:00* Test Item Value Reference Range Interpretation Comments Hepatitis B Surface Antibody, Quant (test code = 5194-6) <3.1 Status of Immunity Anti-HBs Level Inconsistent with Immunity 0.0 - 9 .9Consistent with Immunity >9.9Performed at: [facility] [id number] Director: Kevin Lino MD, Phone: [phone] [facility] B Core Total Pruzmtbd6084-18-70 10:33:00* Test Item Value Reference Range Interpretation Comments Hepatitis B Core Total Antibody (test code = 90299-3) Negative [facility] B Core IgM Vbiapkfx3366-28-56 10:33:00* Test Item Value Reference Range Interpretation Comments Hepatitis B Core IgM Antibody (test code = 81662-9) Negative Performed at: [facility] [id number] Director: Kevin Lino MD, Phone: [phone] [facility] Hospital C Qvupbozr3423-92-86 10:33:00* Test Item Value Reference Range Interpretation Comments Hepatitis C Antibody (test code = 93539-7) <0.1 Reference Range:0.0 - 0.9 s/co ratio Negative: < 0.8 Indeterminate: 0.8 - 0.9 Positive: > 0.9 The [facility] recommends that a positive HCV antibody result be followed up with a HCV Nucleic Acid Amplification test (814646).Performed at: [address] [id number] Director: Kevin Lino MD, Phone: [phone] [facility] C Ggnitkew5342-07-02 10:33:00* Test Item Value Reference Range Interpretation Comments Hepatitis C Antibody (test code = 61984-8) <0.1 Reference Range:0.0 - 0.9 s/co ratio Negative: < 0.8 Indeterminate: 0.8 - 0.9 Positive: > 0.9 The CDC recommends that a positive HCV antibody result be followed up with a HCV Nucleic Acid Amplification test (039995).Performed at: [address] [id number] Director: Kevin Lino MD, Phone: [phone] [facility] Edvliufx0213-00-37 10:33:00* Test Item Value Reference Range Interpretation Comments Hepatitis C Antibody (test code = 79577-6) <0.1 Reference Range:0.0 - 0.9 s/co ratio Negative: < 0.8 Indeterminate: 0.8 - 0.9 Positive: > 0.9 The CDC recommends that a positive HCV antibody result be followed up with a HCV Nucleic Acid Amplification test (060552).Performed at: [address] [id number] Director: Kevin Lino MD, Phone: [phone] [facility] C Unypyqff2900-65-57 10:33:00* Test Item Value Reference Range Interpretation Comments Hepatitis C Antibody (test code = 09503-7) <0.1 Reference Range:0.0 - 0.9 s/co ratio Negative: < 0.8 Indeterminate: 0.8 - 0.9 Positive: > 0.9 The CDC recommends that a positive HCV antibody result be followed up with a HCV Nucleic Acid Amplification test (595145).Performed at: [address] [id number] Director: Kevin Lino MD, Phone: [phone] [facility] C Vkyenqvn9890-59-24 10:33:00* Test Item Value Reference Range Interpretation Comments Hepatitis C Antibody (test code = 97056-4) <0.1 Reference Range:0.0 - 0.9 s/co ratio Negative: < 0.8 Indeterminate: 0.8 - 0.9 Positive: > 0.9 The CDC recommends that a positive HCV antibody result be followed up with a HCV Nucleic Acid Amplification test (933562).Performed at: - [facility] [id number] Director: Kevin Lino MD, Phone: [phone] [facility] CenterCT CHEST XA0485-60-79 09:37:00 [facility] [address] [address] Patient Name: DEO ESCUDERO MR #: [id number] : 1955 Age/Sex: 64/F Req #: [id number] Adm Physician: CELENA CHRISTENSEN MD Ordered by: Abdirashid Alford CONFIGURATION SPECIALIST Report #: [id number] Location: MED/SURG3 Room/Bed: [facility] Procedure: [id number] CT/ CT CHEST WO Exam Date: Exam [...] on 07/03/19951 COPY TO: ABDIRASHID ALFORD NP Ewjbav2830-18-55 11:48:00* Test Item Value Reference Range Interpretation Comments Folate (test code = 2284-8) <2.0 >3.0 L A serum folate concentration of less than 3.1 ng/mL isconsidered to represent cl inical deficiency.Performed at: [address] [id number] Director: Kevin Lino MD, Phone: [phone] Dallas Medical CenterFolate2020-01-09 11:48:00* Test Item Value Reference Range Interpretation Comments Folate (test code = 2284-8) <2.0 >3.0 L A serum folate concentration of less than 3.1 ng/mL isconsidered to represent cl inical deficiency.Performed at: [address] [id number] Director: Kevin Lino MD, Phone: [phone] [facility] Medical CenterFolate2020-01-09 11:48:00* Test Item Value Reference Range Interpretation Comments Folate (test code = 2284-8) <2.0 >3.0 L A serum folate concentration of less than 3.1 ng/mL isconsidered to represent cl inical deficiency.Performed at: [address] [id number] Director: Kevin Lino MD, Phone: [phone] Dallas Medical CenterFolate2020-01-09 11:48:00* Test Item Value Reference Range Interpretation Comments Folate (test code = 2284-8) <2.0 >3.0 L A serum folate concentration of less than 3.1 ng/mL isconsidered to represent cl inical deficiency.Performed at: [address] [id number] Director: Kevin Lino MD, Phone: [phone] [facility] Medical CenterFolate2020-01-09 11:48:00* Test Item Value Reference Range Interpretation Comments Folate (test code = 2284-8) <2.0 >3.0 L A serum folate concentration of less than 3.1 ng/mL isconsidered to represent cl inical deficiency.Performed at: [address] [id number] Director: Kevin Lino MD, Phone: [phone] Dallas Medical CenterPhosphorus Wvqml5105-85-66 07:05:00* Test Item Value Reference Range Interpretation Comments Phosphorus Level (test code = FTY1923) 4.0 2.3-4.7 [facility] C virus antibody gjxuqxqbf8587-66-57 04:15:00* Test Item Value Reference Range Interpretation Comments Hepatitis C Antibody (test code = 44481-2) <0.1 Reference Range:0.0 - 0.9 s/co ratio Negative: < 0.8 Indeterminate: 0.8 - 0.9 Positive: > 0.9 The CDC recommends that a positive HCV antibody result be followed up with a HCV Nucleic Acid Amplification test (146076).Performed at: [address] [id number] Director: Kevin Lino MD, Phone: [phone] [facility]resserum hepatitis C virus antibody wlbcltham3651-58-52 04:15:00* Test Item Value Reference Range Interpretation Comments Hepatitis C Antibody (test code = 83893-3) <0.1 Reference Range:0.0 - 0.9 s/co ratio Negative: < 0.8 Indeterminate: 0.8 - 0.9 Positive: > 0.9 The CDC recommends that a positive HCV antibody result be followed up with a HCV Nucleic Acid Amplification test (260765).Performed at: [address] [id number] Director: Kevin Lino MD, Phone: [phone] [facility] CenterMD SEDATE INITIAL > 5 VFH9570-57-23 12:41:00 [facility] [address] [place] [address] Patient Name: DEO ESCUDERO MR #: [id number] : 1955 Age/Sex: 64/F Req #: [id number] Adm Physician: CELENA CHRISTENSEN MD Ordered by: MICHAEL BEACH MD Report #: [id number] Location: ICU Room/Bed: ICU [facility] Procedure: [id number] C Dagoberto/ SEDATE INITIAL > 5 YRS Exam Date: 07/01/19 Exam Time: 1154 REPORT STATUS: Signed Tunneled dialysis catheter insertion, 07/01/2019. History: Renal failure. Modality: Sonography and fluoroscopy. Sedation: Versed 1.0 mg and fentanyl 50 mcg was given intravenously for conscious sedation. Vital signs were monitored throughout the procedure by a nurse, and remained stable. Physician intra-service time was 15 in its. Commission Auditor: Baylee. Senior Java Software Developer: None. Approach: Right internal jugular vein Estimated [...] needle into the right atrium. A 4 Prydeinig micropuncture sheath was placed. A subcutaneous tunnel was created in the right anterior chest wall by blunt dissection. A 1 cm 14.5 Prydeinig Palindrome catheter was brought through the tunnel. [...] TO: MICHAEL BEACH MD GUIDANCE FOR VASCULAR ZAHUY0952-11-83 12:41:[address] [address] Patient Name: DEO ESCUDERO MR #: [id number] : 1955 Age/Sex: 64/F Req #: [id number] Adm Physician: CELENA CHRISTENSEN MD Ordered by: CELENA CHRISTENSEN MD Report #: [id number] Location: ICU Room/Bed: ICU Critical access hospital Procedure: [id number] US/U S GUIDANCE FOR VASCULAR ACCES Exam Date: 07/01/19 Ex am Time: 1136 REPORT STATUS: Signed Tunneled dialysis catheter insertion, 07/01/2019. History: Renal failure. Modality: Sonography and fluoroscopy. Sedation: Versed 1.0 mg and fentanyl 50 mcg was given intravenously for conscious sedation. Vital signs were monitored throughout the procedure by a nurse, and remained stable. Physician intra-service time was 15 in its. Commission Auditor: Baylee. Senior Java Software Developer: None. Approach: Right internal jugular vein Estimated [...] needle into the right atrium. A 4 Prydeinig micropuncture sheath was placed. A subcutaneous tunnel was created in the right anterior chest wall by blunt dissection. A 1 cm 14.5 Prydeinig Palindrome catheter was brought through the tunnel. [...] CELENA CHRISTENSEN MD IR CONSULT 2019-07-01 12:41:00 [facility] [address] [address] Patient Name: DEO ESCUDERO MR #: [id number] : 1955 Age/Sex: 64/F Req #: [id number] Adm Physician: CELENA CHRISTENSEN MD Ordered by: CELENA CHRISTENSEN MD Report #: [id number] Location: ICU Room/Bed: ICU Critical access hospital Procedure: [id number] DX/I R CONSULT Exam Date: Exam Time: REPORT STATUS: Signed Tunneled dialysis catheter i nsertion, 07/01/2019. History: Renal failure. Modality: Sonogr aphy and fluoroscopy. Sedation: Versed 1.0 mg and fentanyl 50 mcg was given intravenously for conscious sedation. Vital signs were monitored throughout the procedure by a nurse, and remained stable. Physician intra-service time was 15 in its. Primary O perator: Baylee. Senior Java Software Developer: None. Approach: Right internal jugular vein Estimated [...] needle into the right atrium. A 4 Prydeinig micropuncture sheath was placed. A subcutaneous tunnel was created in the right anterior chest wall by blunt dissection. A 1 cm 14.5 Prydeinig Palindrome catheter was brought through the tunnel. [...] CELENA CHRISTENSEN MD TUNNELLED CVC INSERT W/O BTAK3834-32-21 12:41:00 [address] [address] Patient Name: DEO ESCUDERO MR #: [id number] : 1955 Age/Sex: 64/F Req #: [id number] Adm Physician: CELENA CHRISTENSEN MD Ordered by: CELENA CHRISTENSEN MD Report #: [id number] Location: ICU Room/Bed: ICU Critical access hospital Procedure: [id number] IR/T UNNELLED CVC INSERT W/O PORT Exam Date: Exam Time: REPORT STATUS: Signed Tunneled dialysis catheter insertion, 07/01/2019. History: Renal failure. Modality: Sonography and fluoroscopy. Sedation: Versed 1.0 mg and fentanyl 50 mcg was given intravenously for consci ous sedation. Vital signs were monitored throughout the procedure by a nurse, and remained stable. Physician intra-service time was 15 in its. Commission Auditor: Baylee. Senior Java Software Developer: None. Approach: Right internal jugular vein Estimated [...] needle into the right atrium. A 4 Prydeinig micropuncture sheath was placed. A subcutaneous tunnel was created in the right anterior chest wall by blunt dissection. A 1 cm 14.5 Prydeinig Palindrome catheter was brought through the tunnel. [...] (test code = 2276-4) 270.21 4.63-204.00 H [facility] CenterVitamin B12 Ucosq2635-82-17 04:35:00* Test Item Value Reference Range Interpretation Comments Vitamin B12 Level (test code = 54627-0) 548 213-816 [facility] CenterFerritin2020-01-08 04:35:00* Test Item Value Reference Range Interpretation Comments Ferritin (test code = 2276-4) 270.21 4.63-204.00 H [facility] CenterVitamin B12 Inezo5358-02-84 04:35:00* Test Item Value Reference Range Interpretation Comments Vitamin B12 Level (test code = 40689-5) 548 213-816 [facility] CenterFerritin2020-01-08 04:35:00* Test Item Value Reference Range Interpretation Comments Ferritin (test code = 2276-4) 270.21 4.63-204.00 H [facility] CenterVitamin B12 Tnida1664-06-68 04:35:00* Test Item Value Reference Range Interpretation Comments Vitamin B12 Level (test code = 41660-8) 548 213-816 [facility] CenterFerritin2020-01-08 04:35:00* Test Item Value Reference Range Interpretation Comments Ferritin (test code = 2276-4) 270.21 4.63-204.00 H [facility] CenterVitamin B12 Mlrgb6541-92-22 04:35:00* Test Item Value Reference Range Interpretation Comments Vitamin B12 Level (test code = 62810-7) 548 213-816 [facility] CenterFerritin2020-01-08 04:35:00* Test Item Value Reference Range Interpretation Comments Ferritin (test code = 2276-4) 270.21 4.63-204.00 [facility] CenterVitamin B12 Coytm1209-19-21 04:35:00* Test Item Value Reference Range Interpretation Comments Vitamin B12 Level (test code = 68941-2) 548 213-816 [facility] CenterIron Ykuml5942-07-80 03:57:00* Test Item Value Reference Range Interpretation Comments Iron Level (test code = 2498-4) 31 50-170 L [facility] CenterTotal Iron Binding Zulxxrsx9446-38-49 03:57:00* Test Item Value Reference Range Interpretation Comments Total Iron Binding Capacity (test code = 2500-7) 139 261-4 78 L [facility] CenterPercent Iron Dbqtbkovkg0283-45-24 03:57:00* Test Item Value Reference Range Interpretation Comments Percent Iron Saturation (test code = 2502-3) 22 15-50 [facility] CenterTransferrin2020-01-08 03:57:00* Test Item Value Reference Range Interpretation Comments Transferrin (test code = 3034-6) 99 180-382 L [facility] CenterIron Gsxuv8851-08-89 03:57:00* Test Item Value Reference Range Interpretation Comments Iron Level (test code = 2498-4) 31 50-170 L [facility] CenterTotal Iron Binding Btyvajgo5456-09-06 03:57:00* Test Item Value Reference Range Interpretation Comments Total Iron Binding Capacity (test code = 2500-7) 139 261-4 78 L [facility] CenterPercent Iron Ptxwmbydhh8994-64-14 03:57:00* Test Item Value Reference Range Interpretation Comments Percent Iron Saturation (test code = 2502-3) 22 15-50 [facility] CenterTransferrin2020-01-08 03:57:00* Test Item Value Reference Range Interpretation Comments Transferrin (test code = 3034-6) 99 180-382 L [facility]2020-01-08 03:57:00* Test Item Value Reference Range Interpretation Comments Iron Level (test code = 2498-4) 31 50-[address] [facility] Iron Binding Rzzaxxdk7257-21-09 03:57:00* Test Item Value Reference Range Interpretation Comments Total Iron Binding Capacity (test code = 2500-7) 139 261-4 78 L [facility] Iron Bbdsdxgpzy0887-84-75 03:57:00* Test Item Value Reference Range Interpretation Comments Percent Iron Saturation (test code = 2502-3) 22 15-50 [facility]2020-01-08 03:57:00* Test Item Value Reference Range Interpretation Comments Transferrin (test code = 3034-6) 99 180-382 L [facility]2020-01-08 03:57:00* Test Item Value Reference Range Interpretation Comments Iron Level (test code = 2498-4) 31 50-[address] [facility] Iron Binding Duyqrgap8393-64-60 03:57:00* Test Item Value Reference Range Interpretation Comments Total Iron Binding Capacity (test code = 2500-7) 139 261-4 78 L [facility] Iron Vumvtfidcz3672-51-27 03:57:00* Test Item Value Reference Range Interpretation Comments Percent Iron Saturation (test code = 2502-3) 22 15-50 [facility] CenterTransferrin2020-01-08 03:57:00* Test Item Value Reference Range Interpretation Comments Transferrin (test code = 3034-6) 99 180-382 L [facility]2020-01-08 03:57:00* Test Item Value Reference Range Interpretation Comments Iron Level (test code = 2498-4) 31 50-170 L [facility] CenterTotal Iron Binding Kqyqhwll5690-27-82 03:57:00* Test Item Value Reference Range Interpretation Comments Total Iron Binding Capacity (test code = 2500-7) 139 261-4 78 L [facility] CenterPercent Iron Vltgavecan9766-02-36 03:57:00* Test Item Value Reference Range Interpretation Comments Percent Iron Saturation (test code = 2502-3) 22 15-50 [facility] CenterTransferrin2020-01-08 03:57:00* Test Item Value Reference Range Interpretation Comments Transferrin (test code = 3034-6) 99 180-382 L [facility] CenterPercent Reticulocyte Wvaop5281-78-26 03:29:00* Test Item Value Reference Range Interpretation Comments Percent Reticulocyte Count (test code = 48138-5) 2.3 0.8-2 .2 H [facility] CenterPercent Reticulocyte Dvaff2558-14-93 03:29:00* Test Item Value Reference Range Interpretation Comments Percent Reticulocyte Count (test code = 88238-0) 2.3 0.8-2 .2 H [facility] CenterPercent Reticulocyte Tcxce2562-22-60 03:29:00* Test Item Value Reference Range Interpretation Comments Percent Reticulocyte Count (test code = 96441-3) 2.3 0.8-2 .2 H [facility]Percent Reticulocyte Alvgm1347-18-54 03:29:00* Test Item Value Reference Range Interpretation Comments Percent Reticulocyte Count (test code = 94027-2) 2.3 0.8-2 .2 H [facility] CenterPercent Reticulocyte Vmwwd5327-50-73 03:29:00* Test Item Value Reference Range Interpretation Comments Percent Reticulocyte Count (test code = 92056-4) 2.3 0.8-2 .2 H [facility] CenterAutomated reticulocyte count as percentage of total ynntzfbvkreb3139-66-13 02:00:00* Test Item Value Reference Range Interpretation Comments Percent Reticulocyte Count (test code = 26027-9) 2.3 0.8-2 .2 [facility] plasma iron measurement (mass/volume)2019-07-01 02:00:00* Test Item Value Reference Range Interpretation Comments Iron Level (test code = 2498-4) 31 50-170 [facility]ress[facility]um or plasma iron binding capacity measurement (mass/volume)2019-07-01 02:00:00* Test Item Value Reference Range Interpretation Comments Total Iron Binding Capacity (test code = 2500-7) 139 261-4 78 [facility]resserum or plasma iron saturation measurement (mass fraction)2019-07-01 02:00:00* Test Item Value Reference Range Interpretation Comments Percent Iron Saturation (test code = 2502-3) 22 15-50 [facility]resserum or plasma transferrin measurement (mass/volume)2019-07-01 02:00:00* Test Item Value Reference Range Interpretation Comments Transferrin (test code = 3034-6) 99 180-382 [facility]erum or plasma ferritin measurement (mass/volume)2019-07-01 02:00:00* Test Item Value Reference Range Interpretation Comments Ferritin (test code = 2276-4) 270.21 4.63-204.00 [facility] CenterBlood cobalamin (vitamin B12) measurement (mass/volume)2019-07-01 02:00:00* Test Item Value Reference Range Interpretation Comments Vitamin B12 Level (test code = 16498-5) 548 213-816 [facility] or plasma folate measurement (mass/volume)2019-07-01 02:00:00* Test Item Value Reference Range Interpretation Comments Folate (test code = 2284-8) <2.0 >3.0 A serum folate concentration of less than 3.1 ng/mL isconsidered to represent cl inical deficiency.Performed at: - [facility] [id number] Director: Kevin Lino MD, Phone: [phone] [facility] Medical CenterAutomated reticulocyte count as percentage of total areatwkhvgfo0272-66-36 02:00:00* Test Item Value Reference Range Interpretation Comments Percent Reticulocyte Count (test code = 23344-9) 2.3 0.8-2 .2 [facility] or plasma iron measurement (mass/volume)2019-07-01 02:00:00* Test Item Value Reference Range Interpretation Comments Iron Level (test code = 2498-4) 31 50-170 [facility]um or plasma iron binding capacity measurement (mass/volume)2019-07-01 02:00:00* Test Item Value Reference Range Interpretation Comments Total Iron Binding Capacity (test code = 2500-7) 139 261-4 78 [facility]resserum or plasma iron saturation measurement (mass fraction)2019-07-01 02:00:00* Test Item Value Reference Range Interpretation Comments Percent Iron Saturation (test code = 2502-3) 22 15-50 [facility]resserum or plasma transferrin measurement (mass/volume)2019-07-01 02:00:00* Test Item Value Reference Range Interpretation Comments Transferrin (test code = 3034-6) 99 180-382 [facility]um or plasma ferritin measurement (mass/volume)2019-07-01 02:00:00* Test Item Value Reference Range Interpretation Comments Ferritin (test code = 2276-4) 270.21 4.63-204.00 [facility] CenterBlood cobalamin (vitamin B12) measurement (mass/volume)2019-07-01 02:00:00* Test Item Value Reference Range Interpretation Comments Vitamin B12 Level (test code = 58276-0) 548 213-816 [facility]ress[facility] or plasma folate measurement (mass/volume)2019-07-01 02:00:00* Test Item Value Reference Range Interpretation Comments Folate (test code = 2284-8) <2.0 >3.0 A serum folate concentration of less than 3.1 ng/mL isconsidered to represent cl inical deficiency.Performed at: - [facility] [id number] Director: Kevin Lino MD, Phone: [phone] Dallas Medical CenterTriglycerides Ciqer1365-88-16 04:53:00* Test Item Value Reference Range Interpretation Comments Triglycerides Level (test code = 2571-8) 160 0-149 H [facility] CenterCholesterol Llgxa4488-48-44 04:53:00* Test Item Value Reference Range Interpretation Comments Cholesterol Level (test code = 2093-3) 212 0-199 H Less than 200 mg/dL Low Fwrq197 - 239 mg/dL Borderline Mcaq507 m g/dl and greater High Risk [facility] CenterLDL Mviidxrogmg9475-61-90 04:53:00* Test Item Value Reference Range Interpretation Comments LDL Cholesterol (test code = 2089-1) 150 60-130 [facility] Mwilagdwdpa7252-32-17 04:53:00* Test Item Value Reference Range Interpretation Comments HDL Cholesterol (test code = 2085-9) 30 40-60 L [facility] CenterCholesterol/HDL Pyyxt4563-76-84 04:53:00 * Test Item Value Reference Range Interpretation Comments Cholesterol/HDL Ratio (test code = 9830-1) 7.1 3.0-3.6 H [facility] CenterTriglycerides Euoit1652-58-79 04:53:00* Test Item Value Reference Range Interpretation Comments Triglycerides Level (test code = 2571-8) 160 0-149 H [facility] CenterCholesterol Lpqha4723-93-78 04:53:00* Test Item Value Reference Range Interpretation Comments Cholesterol Level (test code = 2093-3) 212 0-199 H Less than 200 mg/dL Low Fboe580 - 239 mg/dL Borderline Mywz792 m g/dl and greater High Risk [facility] CenterLDL Xmnflkbhwki9147-11-08 04:53:00* Test Item Value Reference Range Interpretation Comments LDL Cholesterol (test code = 2089-1) 150 60-[address] [facility] Quunexrsftd8286-45-58 04:53:00* Test Item Value Reference Range Interpretation Comments HDL Cholesterol (test code = 2085-9) 30 40-60 L [facility] CenterCholesterol/HDL Moptw4881-90-94 04:53:00 * Test Item Value Reference Range Interpretation Comments Cholesterol/HDL Ratio (test code = 9830-1) 7.1 3.0-3.6 H [facility] CenterTriglycerides Socbu7357-91-36 04:53:00* Test Item Value Reference Range Interpretation Comments Triglycerides Level (test code = 2571-8) 160 0-149 H [facility] CenterCholesterol Kgrxy8405-53-73 04:53:00* Test Item Value Reference Range Interpretation Comments Cholesterol Level (test code = 2093-3) 212 0-199 H Less than 200 mg/dL Low Flyw735 - 239 mg/dL Borderline Ftuk723 m g/dl and greater High Risk [facility] CenterLDL Wvmdpakanhg8364-00-97 04:53:00* Test Item Value Reference Range Interpretation Comments LDL Cholesterol (test code = 2089-1) 150 60-[address] [facility] Nxwdqlchafi3017-62-46 04:53:00* Test Item Value Reference Range Interpretation Comments HDL Cholesterol (test code = 2085-9) 30 40-60 L [facility] CenterCholesterol/HDL Xaqpw0462-59-20 04:53:00 * Test Item Value Reference Range Interpretation Comments Cholesterol/HDL Ratio (test code = 9830-1) 7.1 3.0-3.6 H [facility] CenterTriglycerides Iqsfd8871-16-83 04:53:00* Test Item Value Reference Range Interpretation Comments Triglycerides Level (test code = 2571-8) 160 0-149 H [facility] CenterCholesterol Gdfuv2729-07-40 04:53:00* Test Item Value Reference Range Interpretation Comments Cholesterol Level (test code = 2093-3) 212 0-199 H Less than 200 mg/dL Low Ofjb230 - 239 mg/dL Borderline Nedv228 m g/dl and greater High Risk [facility] CenterLDL Letbvwmnqyb6938-03-88 04:53:00* Test Item Value Reference Range Interpretation Comments LDL Cholesterol (test code = 2089-1) 150 60-[address] [facility] Zjeypbkpuyh6035-59-79 04:53:00* Test Item Value Reference Range Interpretation Comments HDL Cholesterol (test code = 2085-9) 30 40-60 L [facility] CenterCholesterol/HDL Nnfjj6980-98-22 04:53:00 * Test Item Value Reference Range Interpretation Comments Cholesterol/HDL Ratio (test code = 9830-1) 7.1 3.0-3.6 H [facility] XTOZIKRK5680-99-26 19:48:00 [facility] [address] [address] Patient Name: DEO ESCUDERO MR #: [id number] : 1955 Age/Sex: 64/F Req #: [id number] Adm Physician: Ordered by: Abdirashid Alford NP Report #: [id number] Location: ER Room/Bed: Procedure: [id number] US/U S ABDOMEN COMPLETE Exam Date: 06/29/19 [...] COPY TO: ABDIRASHID ALFORD NP CT ABDOMEN PS1936-68-47 19:06:00 [place] [address] Patient Name: DEO ESCUDERO MR #: [id number] : 1955 Age/Sex: 64/F Req #: [id number] Adm Physician: Ordered by: Abdirashid Alford NP Report #: [id number] Location: ER Room/Bed: Procedure: [id number] CT/C T ABDOMEN WO Exam Date: 06/29/19 Exam Time: 1843 REPORT STATUS: Signed EXAM: CT Abdo men WITHOUT contrast INDICATION: NAUSEA/VOMITING [id number] COMPARISON: None. TECHNIQUE: Abdomen was scanned utilizing [...] Thyroid Stimulating Hormone (TSH) (test code = 05147-6) 3.979 0.350-4.940 [facility] CenterThyroid Stimulating Hormone (TSH) 2019-06-29 17:37:00* Test Item Value Reference Range Interpretation Comments Thyroid Stimulating Hormone (TSH) (test code = 44503-0) 3.979 0.350-4.940 [facility] CenterThyroid Stimulating Hormone (TSH) 2019-06-29 17:37:00* Test Item Value Reference Range Interpretation Comments Thyroid Stimulating Hormone (TSH) (test code = 64433-0) 3.979 0.350-4.940 [facility] CenterThyroid Stimulating Hormone (TSH) 2019-06-29 17:37:00* Test Item Value Reference Range Interpretation Comments Thyroid Stimulating Hormone (TSH) (test code = 90366-0) 3.979 0.350-4.940 [facility] CenterThyroid Stimulating Hormone (TSH) 2019-06-29 17:37:00* Test Item Value Reference Range Interpretation Comments Thyroid Stimulating Hormone (TSH) (test code = 42353-6) 3.979 0.350-4.940 [facility] CenterLipase2020-01-06 17:16:00* Test Item Value Reference Range Interpretation Comments Lipase (test code = 3040-3) 56 8-78 [facility] CenterLipase2020-01-06 17:16:00* Test Item Value Reference Range Interpretation Comments Lipase (test code = 3040-3) 56 8-78 [facility] CenterLipase2020-01-06 17:16:00* Test Item Value Reference Range Interpretation Comments Lipase (test code = 3040-3) 56 8-78 [facility] CenterLipase2020-01-06 17:16:00* Test Item Value Reference Range Interpretation Comments Lipase (test code = 3040-3) 56 8-78 [facility] CenterLipase2020-01-06 17:16:00* Test Item Value Reference Range Interpretation Comments Lipase (test code = 3040-3) 56 8-78 [facility] CenterHemoglobin A1c Hbldpqz1901-76-05 17:14:00 * Test Item Value Reference Range Interpretation Comments Hemoglobin A1c Percent (test code = Hemoglobin A1c Percent) 5.2 4.0-7.0 [facility] CenterHemoglobin A1c Loqzwim1893-67-89 17:14:00 * Test Item Value Reference Range Interpretation Comments Hemoglobin A1c Percent (test code = Hemoglobin A1c Percent) 5.2 4.0-7.0 [facility] CenterHemoglobin A1c Imjzpea7430-49-95 17:14:00 * Test Item Value Reference Range Interpretation Comments Hemoglobin A1c Percent (test code = Hemoglobin A1c Percent) 5.2 4.0-7.0 [facility] CenterHemoglobin A1c Ufksczv7823-94-05 17:14:00 * Test Item Value Reference Range Interpretation Comments Hemoglobin A1c Percent (test code = Hemoglobin A1c Percent) 5.2 4.0-7.0 [facility] CenterHemoglobin A1c Eqasmkl0745-96-95 17:14:00 * Test Item Value Reference Range Interpretation Comments Hemoglobin A1c Percent (test code = Hemoglobin A1c Percent) 5.2 4.0-7.0 [facility] CenterB-Type Natriuretic Qkksvsz4122-85-48 15:38:00* Test Item Value Reference Range Interpretation Comments B-Type Natriuretic Peptide (test code = 63788-3) 180.0 0-100 H [facility] CenterB-Type Natriuretic Qjbacoi7942-92-56 15:38:00* Test Item Value Reference Range Interpretation Comments B-Type Natriuretic Peptide (test code = 50034-3) 180.0 0-100 H [facility] CenterB-Type Natriuretic Lubaqry8296-97-08 15:38:00* Test Item Value Reference Range Interpretation Comments B-Type Natriuretic Peptide (test code = 79593-4) 180.0 0-100 H [facility] CenterB-Type Natriuretic Dnzcgxu2896-21-63 15:38:00* Test Item Value Reference Range Interpretation Comments B-Type Natriuretic Peptide (test code = 00118-4) 180.0 0-100 H [facility] CenterB-Type Natriuretic Oamwqsd5905-19-95 15:38:00* Test Item Value Reference Range Interpretation Comments B-Type Natriuretic Peptide (test code = 27227-9) 180.0 0-100 H [facility] CenterCreatine Kinase OQ0654-81-02 14:56:00* Test Item Value Reference Range Interpretation Comments Creatine Kinase MB (test code = 87836-5) 1.20 0-5.0 [place] [address]-01-06 14:56:00* Test Item Value Reference Range Interpretation Comments Troponin I (test code = BCW2111) < 0.001 0-0.300 [facility] CenterCreatine Kinase MY7894-57-76 14:56:00* Test Item Value Reference Range Interpretation Comments Creatine Kinase MB (test code = 06193-7) 1.20 0-5.0 [facility] Z8550-98-72 14:56:00* Test Item Value Reference Range Interpretation Comments Troponin I (test code = ASX9258) < 0.001 0-0.300 [facility] CenterCreatine Kinase CK2908-16-99 14:56:00* Test Item Value Reference Range Interpretation Comments Creatine Kinase MB (test code = 90935-7) 1.20 0-5.0 [place] [address]-01-06 14:56:00* Test Item Value Reference Range Interpretation Comments Troponin I (test code = SRE9007) < 0.001 0-0.300 [facility] CenterCreatine Kinase NZ0097-91-54 14:56:00* Test Item Value Reference Range Interpretation Comments Creatine Kinase MB (test code = 48713-0) 1.20 0-5.0 [place] [address]0020-01-06 14:56:00* Test Item Value Reference Range Interpretation Comments Troponin I (test code = JZX5785) < 0.001 0-0.300 [facility] CenterCreatine Avmodb3367-76-54 14:53:00* Test Item Value Reference Range Interpretation Comments Creatine Kinase (test code = 2157-6) 99 29-168 [facility] CenterCreatine Ayozxi9490-80-03 14:53:00* Test Item Value Reference Range Interpretation Comments Creatine Kinase (test code = 2157-6) 99 29-168 [facility] CenterCreatine Ftnccn4331-91-05 14:53:00* Test Item Value Reference Range Interpretation Comments Creatine Kinase (test code = 2157-6) 99 29-168 [facility] CenterCreatine Vnmonb4029-55-79 14:53:00* Test Item Value Reference Range Interpretation Comments Creatine Kinase (test code = 2157-6) 99 29-168 [facility] CenterProthrombin Jgfo2512-61-01 14:43:00* Test Item Value Reference Range Interpretation Comments Prothrombin Time (test code = 5902-2) 12.9 11.9-14.5 [facility] CenterProthromb Time International Ratio 2019-06-29 14:43:00* Test Item Value Reference Range Interpretation Comments Prothromb Time International Ratio (test code = 6301-6) 0.92 Oral Anticoagulant Therapy INR Values:1. Low Intensity Therapy 1.5 - 2.02 . Moderate Intensity Therapy 2.0 - 3.03. High Intensity Therapy(1) 2.5 - 3. 54. High Intensity Therapy(2) 3.0 - 4.05. Panic Value INR > 5.0 [facility] CenterActivated Partial Thromboplast Time 2019-06-29 14:43:00* Test Item Value Reference Range Interpretation Comments Activated Partial Thromboplast Time (test code = 58448-5) 30.4 23.8-35.5 [facility] CenterActivated Partial Thromboplast Time 2019-06-29 14:43:00* Test Item Value Reference Range Interpretation Comments Activated Partial Thromboplast Time (test code = 14439-1) 30.4 23.8-35.5 [facility] CenterActivated Partial Thromboplast Time 2019-06-29 14:43:00* Test Item Value Reference Range Interpretation Comments Activated Partial Thromboplast Time (test code = 14804-3) 30.4 23.8-35.5 [facility] CenterActivated Partial Thromboplast Time 2019-06-29 14:43:00* Test Item Value Reference Range Interpretation Comments Activated Partial Thromboplast Time (test code = 92478-9) 30.4 23.8-35.5 [facility] CenterActivated Partial Thromboplast Time 2019-06-29 14:43:00* Test Item Value Reference Range Interpretation Comments Activated Partial Thromboplast Time (test code = 55682-3) 30.4 23.8-35.5 [facility] SINGLE (PORTABLE)2019-06-29 14:37:00 [facility] [address], [place] [address] Patient Name: DEO ESCUDERO MR #: [id number] : 1955 Age/Sex: 64/F Req #: [id number] Adm Physician: Ordered by: JANIE HILL DO Report #: [id number] Location: ER Room/Bed: Procedure: [id number] DX /CHEST SINGLE (PORTABLE) Exam Date: 06/29/19 [...] code = Hemoglobin A1c Percent) 5.2 4.0-7.0 [facility] Sil-dBqg8788-21-06 13:11:00* Test Item Value Reference Range Interpretation Comments B-Type Natriuretic Peptide (test code = 99791-8) 180.0 0-100 [facility] or plasma lipase measurement (enzymatic activity/volume)2019-06-29 13:11:00* Test Item Value Reference Range Interpretation Comments Lipase (test code = 3040-3) 56 8-78 [facility]resserum or plasma thyrotropin measurement by detection limit <= 0.005 miu/l (units/volume)2019-06-29 13:11:00* Test Item Value Reference Range Interpretation Comments Thyroid Stimulating Hormone (TSH) (test code = 06641-7) 3.979 0.350-4.940 [facility] CenterFluoroscopic procedure less than one hour tlqnklfg1018-16-09 13:11:00* Test Item Value Reference Range Interpretation Comments Hemoglobin A1c Percent (test code = Hemoglobin A1c Percent) 5.2 4.0-7.0 [facility] or plasma lipase measurement (enzymatic activity/volume)2019-06-29 13:11:00* Test Item Value Reference Range Interpretation Comments Lipase (test code = 3040-3) 56 8-78 [facility]resserum or plasma thyrotropin measurement by detection limit <= 0.005 miu/l (units/volume)2019-06-29 13:11:00* Test Item Value Reference Range Interpretation Comments Thyroid Stimulating Hormone (TSH) (test code = 85474-1) 3.979 0.350-4.940 [facility] CenterKNEE LEFT THREE NRSDO5781-03-69 14:35:[address] [address] Patient Name: DEO ESCUDERO MR #: [id number] : 1955 Age/Sex: 64/F Req #: [id number] Adm Physician: Ordered by: NATALIA GREEN NP Report #: [id number] Location: ER Room/Bed: Procedure: [id number] DX/ KNEE LEFT THREE VIEWS Exam Date: [...] 143 COPY TO: NATALIA GREEN NP Blood Rhupnbs1491-91-61 11:40:00* Test Item Value Reference Range Interpretation Comments Blood Culture (test code = 90521742) NO GROWTH AFTER 5 DAYS, FINAL REPORT [facility] Plasma Hjwzsu8207-89-66 05:20:00* Test Item Value Reference Range Interpretation Comments Rapid Plasma Reagin (test code = 55905-1) Non Reactive Non Reactive Performed at: [address] [id number] Director: Kevin Lino MD, Phone: [phone]'s Medical Center [facility] Plasma Tnbwrh0776-47-97 05:20:00* Test Item Value Reference Range Interpretation Comments Rapid Plasma Reagin (test code = 98522-9) Non Reactive Non Reactive Performed at: [address] [id number] Director: Kevin Lino MD, Phone: [phone]'s Medical Center [facility] Plasma Abtzjo6506-62-64 05:20:00* Test Item Value Reference Range Interpretation Comments Rapid Plasma Reagin (test code = 14014-7) Non Reactive Non Reactive Performed at: [address] [id number] Director: Kevin Lino MD, Phone: [phone]'s Medical Center [place] Plasma Unjhye0967-78-55 05:20:00* Test Item Value Reference Range Interpretation Comments Rapid Plasma Reagin (test code = 88265-7) Non Reactive Non Reactive Performed at: [address] [id number] Director: Kevin Lino MD, Phone: [phone]'s Medical Center [facility] Plasma Duvqxs9219-99-83 05:20:00* Test Item Value Reference Range Interpretation Comments Rapid Plasma Reagin (test code = 37014-8) Non Reactive Non Reactive Performed at: [address] [id number] Director: Kevin Lino MD, Phone: [phone]'s Medical Center [facility] Plasma Vfxdvl2248-83-48 05:20:00* Test Item Value Reference Range Interpretation Comments Rapid Plasma Reagin (test code = 32002-2) Non Reactive Non Reactive Performed at: [address] [id number] Director: Kevin Lino MD, Phone: [phone] Dallas Medical CenterCortisol PM Tmtfrw0845-88-81 21:56:00* Test Item Value Reference Range Interpretation Comments Cortisol PM Sample (test code = 9812-9) 8.2 2.3-11.9 16:46 DRAW TIMEPerformed at: [address], [place] [id number] Director: Kevin Lino MD, Phone: [phone] Dallas Medical CenterCortisol PM Luffsd9665-37-34 21:56:00* Test Item Value Reference Range Interpretation Comments Cortisol PM Sample (test code = 9812-9) 8.2 2.3-11.9 16:46 DRAW TIMEPerformed at: [address], X [id number] Director: Kevin Lino MD, Phone: [phone] [place], [place] [address]Cortisol PM Oyvwur9446-40-87 21:56:00* Test Item Value Reference Range Interpretation Comments Cortisol PM Sample (test code = 9812-9) 8.2 2.3-11.9 16:46 DRAW TIMEPerformed at: [address], X [id number] Director: Kevin Lino MD, Phone: [phone] [place], [place] [address]Cortisol PM Ulyngp8855-73-05 21:56:00* Test Item Value Reference Range Interpretation Comments Cortisol PM Sample (test code = 9812-9) 8.2 2.3-11.9 16:46 DRAW TIMEPerformed at: [address], X [id number] Director: Kevin Lino MD, Phone: [phone] [place], [place] [address]Cortisol PM Fnzmsk4559-74-77 21:56:00* Test Item Value Reference Range Interpretation Comments Cortisol PM Sample (test code = 9812-9) 8.2 2.3-11.9 16:46 DRAW TIMEPerformed at: [address], T X [id number] Director: Kevin Lino MD, Phone: [phone] [place], [place] [address]Cortisol PM Fosqyv1742-52-31 21:56:00* Test Item Value Reference Range Interpretation Comments Cortisol PM Sample (test code = 9812-9) 8.2 2.3-11.9 16:46 DRAW TIMEPerformed at: [address], X [id number] Director: Kevin Lino MD, Phone: [phone] [facility] Tzhciej0614-97-79 08:45:00* Test Item Value Reference Range Interpretation Comments Bedside Glucose (test code = 82487-2) 104 70-120 Meter ID: [id number] [facility] Glucose 2019-04-20 08:45:00* Test Item Value Reference Range Interpretation Comments Bedside Glucose (test code = 90826-9) 104 70-120 Meter ID: [id number] Methodist Clear Lake Hospitalodium Level 2019-04-20 05:32:00* Test Item Value Reference Range Interpretation Comments Sodium Level (test code = 2951-2) 141 136-145 [facility] CenterPotassium Ydsah7045-84-37 05:32:00* Test Item Value Reference Range Interpretation Comments Potassium Level (test code = 2823-3) 3.3 3.5-5.1 L [facility] CenterChloride Twsua2239-65-07 05:32:00* Test Item Value Reference Range Interpretation Comments Chloride Level (test code = 2075-0) 116 98-107 H [facility] CenterCarbon Dioxide Xjvpp8924-38-82 05:32:00* Test Item Value Reference Range Interpretation Comments Carbon Dioxide Level (test code = 2028-9) 15 22-29 L [facility] CenterAnion Mgy4987-78-76 05:32:00* Test Item Value Reference Range Interpretation Comments Anion Gap (test code = 34927-4) 13.3 8-16 [facility] CenterBlood Urea Tmwkldgx6915-15-34 05:32:00* Test Item Value Reference Range Interpretation Comments Blood Urea Nitrogen (test code = 3094-0) 47 7-26 H [facility] CenterCreatinine2019-10-28 05:32:00* Test Item Value Reference Range Interpretation Comments Creatinine (test code = 2160-0) 3.62 0.57-1.11 H [facility] CenterBUN/Creatinine Kwljc7042-69-19 05:32:00* Test Item Value Reference Range Interpretation Comments BUN/Creatinine Ratio (test code = 3097-3) 13 6-25 [facility] CenterEstimat Glomerular Filtration Rate 2019-04-20 05:32:00* Test Item Value Reference Range Interpretation Comments Estimat Glomerular Filtration Rate (test code = 696102836) 13 >60 L Ranges were taken from the National Kidney Disease Education Program and the formerly [facility] Kidney Foundation literature.Reference ranges:60 or greater: Lvlinu44-50 ( for 3 consecutive months): Chronic kidney disease 15 or less: Kidney failureMethodist Dallas Medical CenterGlucose Liifx6074-09-23 05:32:00* Test Item Value Reference Range Interpretation Comments Glucose Level (test code = VHP4116) 86 74-118 [facility] CenterCalcium Svezk1546-67-18 05:32:00* Test Item Value Reference Range Interpretation Comments Calcium Level (test code = 20444-8) 8.6 8.4-10.2 [facility] Cypressodium Qxdlf4703-56-69 05:32:00* Test Item Value Reference Range Interpretation Comments Sodium Level (test code = 2951-2) 141 136-145 [facility] CenterPotassium Lzguz3778-99-75 05:32:00* Test Item Value Reference Range Interpretation Comments Potassium Level (test code = 2823-3) 3.3 3.5-5.1 L [facility] CenterChloride Jxags9515-94-52 05:32:00* Test Item Value Reference Range Interpretation Comments Chloride Level (test code = 2075-0) 116 98-107 H [facility] CenterCarbon Dioxide Xrlnn2134-93-99 05:32:00* Test Item Value Reference Range Interpretation Comments Carbon Dioxide Level (test code = 2028-9) 15 22-29 L [facility] CenterAnion Phw9654-10-13 05:32:00* Test Item Value Reference Range Interpretation Comments Anion Gap (test code = 95298-1) 13.3 8-16 [facility] CenterBlood Urea Vbiylxcr0584-35-98 05:32:00* Test Item Value Reference Range Interpretation Comments Blood Urea Nitrogen (test code = 3094-0) 47 7-26 H [facility] CenterCreatinine2019-10-28 05:32:00* Test Item Value Reference Range Interpretation Comments Creatinine (test code = 2160-0) 3.62 0.57-1.11 H [facility] CenterBUN/Creatinine Bhmgw0009-70-25 05:32:00* Test Item Value Reference Range Interpretation Comments BUN/Creatinine Ratio (test code = 3097-3) 13 6- [facility] CenterEstimat Glomerular Filtration Rate 2019-04-20 05:32:00* Test Item Value Reference Range Interpretation Comments Estimat Glomerular Filtration Rate (test code = 946467362) 13 >60 L Ranges were taken from the National Kidney Disease Education Program and the formerly [facility] Kidney Foundation literature.Reference ranges:60 or greater: Iefijg76-70 ( for 3 consecutive months): Chronic kidney disease 15 or less: Kidney failureMethodist Dallas Medical CenterGlucose Rpjpk8251-43-97 05:32:00* Test Item Value Reference Range Interpretation Comments Glucose Level (test code = FQT5164) 86 74-118 [facility] CenterCalcium Nmwqo8164-18-41 05:32:00* Test Item Value Reference Range Interpretation Comments Calcium Level (test code = 63131-7) 8.6 8.4-10.2 [facility] CenterWhite Blood Eukee7301-59-59 05:19:00* Test Item Value Reference Range Interpretation Comments White Blood Count (test code = 6690-2) 12.49 4.8-10.8 H [facility] CenterRed Blood Mwdas6739-44-83 05:19:00* Test Item Value Reference Range Interpretation Comments Red Blood Count (test code = 789-8) 3.91 3.6-5.1 [facility] CenterHemoglobin2019-10-28 05:19:00* Test Item Value Reference Range Interpretation Comments Hemoglobin (test code = 95693-3) 10.5 12.0-16.0 L [facility] CenterHematocrit2019-10-28 05:19:00* Test Item Value Reference Range Interpretation Comments Hematocrit (test code = 4544-3) 32.3 34.2-44.1 L [facility] CenterMean Corpuscular Djuwwt0996-83-28 05:19:00* Test Item Value Reference Range Interpretation Comments Mean Corpuscular Volume (test code = 787-2) 82.6 81-99 [facility] CenterMean Corpuscular Kebotkxyxo7085-01-40 05:19:00* Test Item Value Reference Range Interpretation Comments Mean Corpuscular Hemoglobin (test code = 785-6) 26.9 28-32 L [facility] CenterMean Corpuscular Hemoglobin Concent 2019-04-20 05:19:00* Test Item Value Reference Range Interpretation Comments Mean Corpuscular Hemoglobin Concent (test code = 786-4) 32.5 31-35 [facility] CenterRed Cell Distribution Aweke0379-48-51 05:19:00* Test Item Value Reference Range Interpretation Comments Red Cell Distribution Width (test code = 95295-6) 14.1 11.7 -14.4 [facility] CenterPlatelet Bltxv2175-76-67 05:19:00* Test Item Value Reference Range Interpretation Comments Platelet Count (test code = 777-3) 414 140-360 H [facility] CenterNeutrophils (%) (Auto)2019-04-20 05:19:00 * Test Item Value Reference Range Interpretation Comments Neutrophils (%) (Auto) (test code = 17634-2) 63.8 38.7-80.0 [facility] CenterLymphocytes (%) (Auto)2019-04-20 05:19:00 * Test Item Value Reference Range Interpretation Comments Lymphocytes (%) (Auto) (test code = 736-9) 25.5 18.0-39.1 [facility] CenterMonocytes (%) (Auto)2019-04-20 05:19:00* Test Item Value Reference Range Interpretation Comments Monocytes (%) (Auto) (test code = 5905-5) 5.4 4.4-11.3 [facility] CenterEosinophils (%) (Auto)2019-04-20 05:19:00 * Test Item Value Reference Range Interpretation Comments Eosinophils (%) (Auto) (test code = 713-8) 3.8 0.0-6.0 [facility] CenterBasophils (%) (Auto)2019-04-20 05:19:00* Test Item Value Reference Range Interpretation Comments Basophils (%) (Auto) (test code = 706-2) 0.9 0.0-1.0 [facility] CenterIM GRANULOCYTES %2019-04-20 05:19:00* Test Item Value Reference Range Interpretation Comments IM GRANULOCYTES % (test code = IM GRANULOCYTES %) 0.6 0.0- 1.0 [facility] CenterNeutrophils # (Auto)2019-04-20 05:19:00* Test Item Value Reference Range Interpretation Comments Neutrophils # (Auto) (test code = 751-8) 8.0 2.1-6.9 H [facility] CenterLymphocytes # (Auto)2019-04-20 05:19:00* Test Item Value Reference Range Interpretation Comments Lymphocytes # (Auto) (test code = 69830-4) 3.2 1.0-3.2 [facility] CenterMonocytes # (Auto)2019-04-20 05:19:00* Test Item Value Reference Range Interpretation Comments Monocytes # (Auto) (test code = 742-7) 0.7 0.2-0.8 [facility] CenterEosinophils # (Auto)2019-04-20 05:19:00* Test Item Value Reference Range Interpretation Comments Eosinophils # (Auto) (test code = 711-2) 0.5 0.0-0.4 H [facility] CenterBasophils # (Auto)2019-04-20 05:19:00* Test Item Value Reference Range Interpretation Comments Basophils # (Auto) (test code = 704-7) 0.1 0.0-0.1 [facility] CenterAbsolute Immature Granulocyte (auto 2019-04-20 05:19:00* Test Item Value Reference Range Interpretation Comments Absolute Immature Granulocyte (auto (jake t code = Absolute Immature Granulocyte (auto) 0.08 0-0.1 [facility] CenterWhite Blood Vfcdm4255-19-22 05:19:00* Test Item Value Reference Range Interpretation Comments White Blood Count (test code = 6690-2) 12.49 4.8-10.8 H [facility] CenterRed Blood Ksnwz0171-19-33 05:19:00* Test Item Value Reference Range Interpretation Comments Red Blood Count (test code = 789-8) 3.91 3.6-5.1 [facility] CenterHemoglobin2019-10-28 05:19:00* Test Item Value Reference Range Interpretation Comments Hemoglobin (test code = 33637-5) 10.5 12.0-16.0 L [facility] CenterHematocrit2019-10-28 05:19:00* Test Item Value Reference Range Interpretation Comments Hematocrit (test code = 4544-3) 32.3 34.2-44.1 L [facility] CenterMean Corpuscular Kefpny4764-72-01 05:19:00* Test Item Value Reference Range Interpretation Comments Mean Corpuscular Volume (test code = 787-2) 82.6 81-99 [facility] CenterMean Corpuscular Hzkhtujqiy8838-54-51 05:19:00* Test Item Value Reference Range Interpretation Comments Mean Corpuscular Hemoglobin (test code = 785-6) 26.9 28-32 L [facility] CenterMean Corpuscular Hemoglobin Concent 2019-04-20 05:19:00* Test Item Value Reference Range Interpretation Comments Mean Corpuscular Hemoglobin Concent (test code = 786-4) 32.5 31-35 [facility] CenterRed Cell Distribution Ctswt6797-97-67 05:19:00* Test Item Value Reference Range Interpretation Comments Red Cell Distribution Width (test code = 62477-3) 14.1 11.7 -14.4 [facility] CenterPlatelet Jgyuq9606-24-61 05:19:00* Test Item Value Reference Range Interpretation Comments Platelet Count (test code = 777-3) 414 140-360 H [facility] CenterNeutrophils (%) (Auto)2019-04-20 05:19:00 * Test Item Value Reference Range Interpretation Comments Neutrophils (%) (Auto) (test code = 68212-9) 63.8 38.7-80.0 [facility] CenterLymphocytes (%) (Auto)2019-04-20 05:19:00 * Test Item Value Reference Range Interpretation Comments Lymphocytes (%) (Auto) (test code = 736-9) 25.5 18.0-39.1 [facility] CenterMonocytes (%) (Auto)2019-04-20 05:19:00* Test Item Value Reference Range Interpretation Comments Monocytes (%) (Auto) (test code = 5905-5) 5.4 4.4-11.3 [facility] CenterEosinophils (%) (Auto)2019-04-20 05:19:00 * Test Item Value Reference Range Interpretation Comments Eosinophils (%) (Auto) (test code = 713-8) 3.8 0.0-6.0 [facility] CenterBasophils (%) (Auto)2019-04-20 05:19:00* Test Item Value Reference Range Interpretation Comments Basophils (%) (Auto) (test code = 706-2) 0.9 0.0-1.0 [facility] CenterIM GRANULOCYTES %2019-04-20 05:19:00* Test Item Value Reference Range Interpretation Comments IM GRANULOCYTES % (test code = IM GRANULOCYTES %) 0.6 0.0- 1.0 [facility] CenterNeutrophils # (Auto)2019-04-20 05:19:00* Test Item Value Reference Range Interpretation Comments Neutrophils # (Auto) (test code = 751-8) 8.0 2.1-6.9 H [facility] CenterLymphocytes # (Auto)2019-04-20 05:19:00* Test Item Value Reference Range Interpretation Comments Lymphocytes # (Auto) (test code = 83284-9) 3.2 1.0-3.2 [facility] CenterMonocytes # (Auto)2019-04-20 05:19:00* Test Item Value Reference Range Interpretation Comments Monocytes # (Auto) (test code = 742-7) 0.7 0.2-0.8 [facility] CenterEosinophils # (Auto)2019-04-20 05:19:00* Test Item Value Reference Range Interpretation Comments Eosinophils # (Auto) (test code = 711-2) 0.5 0.0-0.4 H [facility] CenterBasophils # (Auto)2019-04-20 05:19:00* Test Item Value Reference Range Interpretation Comments Basophils # (Auto) (test code = 704-7) 0.1 0.0-0.1 [facility] CenterAbsolute Immature Granulocyte (auto 2019-04-20 05:19:00* Test Item Value Reference Range Interpretation Comments Absolute Immature Granulocyte (auto (jake t code = Absolute Immature Granulocyte (auto) 0.08 0-0.1 [facility] CenterThyroid Stimulating Hormone (TSH) 2019-04-19 15:20:00* Test Item Value Reference Range Interpretation Comments Thyroid Stimulating Hormone (TSH) (test code = SZC4158) 6.260 0.450-4.500 H Performed at: [address] [id number] Director: Kevin Lino MD, Phone: [phone] Dallas Medical CenterThyroid Stimulating Hormone (TSH)2019-04-19 15:20:00* Test Item Value Reference Range Interpretation Comments Thyroid Stimulating Hormone (TSH) (test code = PUK5985) 6.260 0.450-4.500 H Performed at: - Lab[address] [id number] Director: Kevin Lino MD, Phone: [phone] Dallas Medical CenterThyroid Stimulating Hormone (TSH)2019-04-19 15:20:00* Test Item Value Reference Range Interpretation Comments Thyroid Stimulating Hormone (TSH) (test code = ZJT5452) 6.260 0.450-4.500 H Performed at: [address] [id number] Director: Kevin Lino MD, Phone: [phone] Dallas Medical CenterThyroid Stimulating Hormone (TSH)2019-04-19 15:20:00* Test Item Value Reference Range Interpretation Comments Thyroid Stimulating Hormone (TSH) (test code = EIW5129) 6.260 0.450-4.500 H Performed at: [address] [id number] Director: Kevin Lino MD, Phone: [phone] Dallas Medical CenterThyroid Stimulating Hormone (TSH)2019-04-19 15:20:00* Test Item Value Reference Range Interpretation Comments Thyroid Stimulating Hormone (TSH) (test code = FIL9964) 6.260 0.450-4.500 H Performed at: [address] [id number] Director: Kevin Lino MD, Phone: [phone] [facility] Medical CenterThyroid Stimulating Hormone (TSH)2019-04-19 15:20:00* Test Item Value Reference Range Interpretation Comments Thyroid Stimulating Hormone (TSH) (test code = NMC3644) 6.260 0.450-4.500 H Performed at: [address] [id number] Director: Kevin Lino MD, Phone: [phone] [facility] Medical CenterThyroid Stimulating Hormone (TSH)2019-04-19 15:20:00* Test Item Value Reference Range Interpretation Comments Thyroid Stimulating Hormone (TSH) (test code = RCL1559) 6.260 0.450-4.500 H Performed at: [address] [id number] Director: Kevin Lino MD, Phone: [phone] [facility] Medical CenterBlood Qdwkdks4533-44-49 11:39:00* Test Item Value Reference Range Interpretation Comments Blood Culture (test code = 73576008) NO GROWTH AFTER 24 HOURS [facility] CenterCreatine Kinase XZ2978-39-58 20:15:00* Test Item Value Reference Range Interpretation Comments Creatine Kinase MB (test code = 19783-8) 5.80 0-5.0 H [facility] CenterTroponin Z7960-11-42 20:15:00* Test Item Value Reference Range Interpretation Comments Troponin I (test code = WUW6097) 0.082 0-0.300 [facility] CenterCreatine Kinase EF7520-54-02 20:15:00* Test Item Value Reference Range Interpretation Comments Creatine Kinase MB (test code = 40250-5) 5.80 0-5.0 H [facility] CenterTroponin T8877-77-98 20:15:00* Test Item Value Reference Range Interpretation Comments Troponin I (test code = HNO9696) 0.082 0-0.300 [facility] CenterCreatine Rojouj0626-49-47 19:52:00* Test Item Value Reference Range Interpretation Comments Creatine Kinase (test code = 2157-6) 339 29-168 H [facility] CenterCreatine Tunyec9680-99-80 19:52:00* Test Item Value Reference Range Interpretation Comments Creatine Kinase (test code = 2157-6) 339 29-168 H [facility] Cypresserum or plasma cortisol measurement PM trough specimen (mass/volume)2019-04-18 16:46:00* Test Item Value Reference Range Interpretation Comments Cortisol PM Sample (test code = 9812-9) 8.2 2.3-11.9 16:46 DRAW TIMEPerformed at: [facility] [address], [place] [id number] Director: Kevin Lino MD, Phone: [phone] Houston Healthcare North Cypresserum or plasma cortisol measurement PM trough specimen (mass/volume)2019-04-18 16:46:00* Test Item Value Reference Range Interpretation Comments Cortisol PM Sample (test code = 9812-9) 8.2 2.3-11.9 16:46 DRAW TIMEPerformed at: [facility] [address], X [id number] Director: Kevin Lino MD, Phone: [phone] [facility] Medical CenterIron Iqwjz4314-46-39 12:26:00* Test Item Value Reference Range Interpretation Comments Iron Level (test code = 2498-4) 49 50-170 L [facility] CenterTotal Iron Binding Zyimyxgp6552-88-28 12:26:00* Test Item Value Reference Range Interpretation Comments Total Iron Binding Capacity (test code = 2500-7) 185 261-4 78 L [facility] CenterPercent Iron Smcueoofla5499-46-88 12:26:00* Test Item Value Reference Range Interpretation Comments Percent Iron Saturation (test code = 2502-3) 26 15-50 [facility] CenterTransferrin2019-10-26 12:26:00* Test Item Value Reference Range Interpretation Comments Transferrin (test code = 3034-6) 132 180-382 L [facility] CenterTriglycerides Ugfmw7161-10-26 12:26:00* Test Item Value Reference Range Interpretation Comments Triglycerides Level (test code = 2571-8) 171 0-149 H [facility] CenterCholesterol Ikmty9309-40-23 12:26:00* Test Item Value Reference Range Interpretation Comments Cholesterol Level (test code = 2093-3) 154 0-199 Less than 200 mg/dL Low Wiox181 - 239 mg/dL Borderline Spjf997 m g/dl and greater High Risk [facility] CenterLDL Jdrshlbitcf1119-30-10 12:26:00* Test Item Value Reference Range Interpretation Comments LDL Cholesterol (test code = 2089-1) 87 60-130 [facility] CenterHDL Kttkmeolrlc9106-31-84 12:26:00* Test Item Value Reference Range Interpretation Comments HDL Cholesterol (test code = 2085-9) 33 40-60 L [facility] CenterCholesterol/HDL Kvuob4799-32-18 12:26:00 * Test Item Value Reference Range Interpretation Comments Cholesterol/HDL Ratio (test code = 9830-1) 4.7 3.0-3.6 H [facility] CenterAmylase Apzdm1005-78-46 12:26:00* Test Item Value Reference Range Interpretation Comments Amylase Level (test code = 1798-8) 85 25-125 [facility] CenterIron Dgzhm5229-50-01 12:26:00* Test Item Value Reference Range Interpretation Comments Iron Level (test code = 2498-4) 49 50-170 L [facility] CenterTotal Iron Binding Bmyeiull3088-92-14 12:26:00* Test Item Value Reference Range Interpretation Comments Total Iron Binding Capacity (test code = 2500-7) 185 261-4 78 L [facility] CenterPercent Iron Amcufeombu9275-22-94 12:26:00* Test Item Value Reference Range Interpretation Comments Percent Iron Saturation (test code = 2502-3) 26 15-50 [facility] CenterTransferrin2019-10-26 12:26:00* Test Item Value Reference Range Interpretation Comments Transferrin (test code = 3034-6) 132 180-382 L [facility] CenterTriglycerides Swdvr0136-93-80 12:26:00* Test Item Value Reference Range Interpretation Comments Triglycerides Level (test code = 2571-8) 171 0-149 H [facility] CenterCholesterol Fcbwm2065-01-73 12:26:00* Test Item Value Reference Range Interpretation Comments Cholesterol Level (test code = 2093-3) 154 0-199 Less than 200 mg/dL Low Ejvk355 - 239 mg/dL Borderline Xemi299 m g/dl and greater High Risk [facility] CenterLDL Zpdibguhsmf9411-50-93 12:26:00* Test Item Value Reference Range Interpretation Comments LDL Cholesterol (test code = 2089-1) 87 60-130 [facility] CenterHDL Ajwzdpeoovp3980-62-47 12:26:00* Test Item Value Reference Range Interpretation Comments HDL Cholesterol (test code = 2085-9) 33 40-60 L [facility] CenterCholesterol/HDL Farui2158-12-59 12:26:00 * Test Item Value Reference Range Interpretation Comments Cholesterol/HDL Ratio (test code = 9830-1) 4.7 3.0-3.6 H [facility] CenterAmylase Rjgsq0010-35-81 12:26:00* Test Item Value Reference Range Interpretation Comments Amylase Level (test code = 1798-8) 85 25-125 [facility] CenterAmylase Unqcj7644-34-08 12:26:00* Test Item Value Reference Range Interpretation Comments Amylase Level (test code = 1798-8) 85 25-125 [facility] CenterAmylase Ypkff3017-38-73 12:26:00* Test Item Value Reference Range Interpretation Comments Amylase Level (test code = 1798-8) 85 25-125 [facility] CenterAmylase Uhekw5687-61-60 12:26:00* Test Item Value Reference Range Interpretation Comments Amylase Level (test code = 1798-8) 85 25-125 [facility] CenterAmylase Pjord4457-68-13 12:26:00* Test Item Value Reference Range Interpretation Comments Amylase Level (test code = 1798-8) 85 25-125 [facility] CenterAmylase Fgsak9868-29-06 12:26:00* Test Item Value Reference Range Interpretation Comments Amylase Level (test code = 1798-8) 85 25-125 [facility] CenterHemoglobin A1c Clrniwz1929-42-57 12:00:00 * Test Item Value Reference Range Interpretation Comments Hemoglobin A1c Percent (test code = Hemoglobin A1c Percent) 4.9 4.0-7.0 [facility] CenterHemoglobin A1c Jupmgui3339-56-07 12:00:00 * Test Item Value Reference Range Interpretation Comments Hemoglobin A1c Percent (test code = Hemoglobin A1c Percent) 4.9 4.0-7.0 [facility]2019-10-26 11:57:00* Test Item Value Reference Range Interpretation Comments Ammonia (test code = 39180-7) 45 -123 [facility]2019-10-26 11:57:00* Test Item Value Reference Range Interpretation Comments Ammonia (test code = 32942-3) 45 31-123 [facility] or plasma amylase measurement (enzymatic activity/volume)2019-04-18 11:15:00* Test Item Value Reference Range Interpretation Comments Amylase Level (test code = 1798-8) 85 25-125 [facility] CenterQualitative serum rapid plasma reagin (RPR) xzml6605-32-62 11:15:00* Test Item Value Reference Range Interpretation Comments Rapid Plasma Reagin (test code = 30543-5) Non Reactive Non Reactive Performed at: [address] [id number] Director: Kevin Lino MD, Phone: [phone] [facility] Cypresserum or plasma thyrotropin measurement (mass/volume)2019-04-18 11:15:00* Test Item Value Reference Range Interpretation Comments Thyroid Stimulating Hormone (TSH) (test code = KGL3277) 6.260 0.450-4.500 Performed at: [address] [id number] Director: Kevin Lino MD, Phone: [phone] [facility] Healthcare [facility] Cypresserum or plasma amylase measurement (enzymatic activity/volume)2019-04-18 11:15:00* Test Item Value Reference Range Interpretation Comments Amylase Level (test code = 1798-8) 85 25-125 [facility] CenterQualitative serum rapid plasma reagin (RPR) uvsb0806-10-33 11:15:00* Test Item Value Reference Range Interpretation Comments Rapid Plasma Reagin (test code = 93352-1) Non Reactive Non Reactive Performed at: [address] [id number] Director: Kevin Lino MD, Phone: [phone] [facility] Cypresserum or plasma thyrotropin measurement (mass/volume)2019-04-18 11:15:00* Test Item Value Reference Range Interpretation Comments Thyroid Stimulating Hormone (TSH) (test code = OTL8087) 6.260 0.450-4.500 Performed at: [address] [id number] Director: Kevin Lino MD, Phone: [phone] [facility] Medical CenterTotal Nrwqnuuus3518-77-58 05:42:00* Test Item Value Reference Range Interpretation Comments Total Bilirubin (test code = 1975-2) 0.2 0.2-1.2 [facility] CenterAspartate Amino Transf (AST/SGOT) 2019-04-18 05:42:00* Test Item Value Reference Range Interpretation Comments Aspartate Amino Transf (AST/SGOT) (test code = Aspartate Amino Transf (AST/SGOT)) [facility] CenterAlanine Aminotransferase (ALT/SGPT) 2019-04-18 05:42:00* Test Item Value Reference Range Interpretation Comments Alanine Aminotransferase (ALT/SGPT) (test code = 1742-6) 19 0-55 [facility] CenterTotal Uinfnti4611-42-01 05:42:00* Test Item Value Reference Range Interpretation Comments Total Protein (test code = 2885-2) 5.7 6.5-8.1 L [facility] CenterAlbumin2019-10-26 05:42:00* Test Item Value Reference Range Interpretation Comments Albumin (test code = 1751-7) 2.2 3.5-5.0 L [facility] CenterGlobulin2019-10-26 05:42:00* Test Item Value Reference Range Interpretation Comments Globulin (test code = 00021-5) 3.5 2.3-3.5 [facility] CenterAlbumin/Globulin Qyjpd4001-22-37 05:42:00 * Test Item Value Reference Range Interpretation Comments Albumin/Globulin Ratio (test code = 1759-0) 0.6 0.8-2.0 L [facility] CenterAlkaline Xivxpzwuzvj3338-78-17 05:42:00* Test Item Value Reference Range Interpretation Comments Alkaline Phosphatase (test code = 6768-6) 86 40-150 [facility] CenterTotal Rpqilqojf4426-52-80 05:42:00* Test Item Value Reference Range Interpretation Comments Total Bilirubin (test code = 1975-2) 0.2 0.2-1.2 [facility] CenterAspartate Amino Transf (AST/SGOT) 2019-04-18 05:42:00* Test Item Value Reference Range Interpretation Comments Aspartate Amino Transf (AST/SGOT) (test code = Aspartate Amino Transf (AST/SGOT)) 34 [facility] CenterAlanine Aminotransferase (ALT/SGPT) 2019-04-18 05:42:00* Test Item Value Reference Range Interpretation Comments Alanine Aminotransferase (ALT/SGPT) (test code = 1742-6) 19 0-55 [facility] CenterTotal Tekpaxi1302-78-61 05:42:00* Test Item Value Reference Range Interpretation Comments Total Protein (test code = 2885-2) 5.7 6.5-8.1 L [facility] CenterAlbumin2019-10-26 05:42:00* Test Item Value Reference Range Interpretation Comments Albumin (test code = 1751-7) 2.2 3.5-5.0 L [facility] CenterGlobulin2019-10-26 05:42:00* Test Item Value Reference Range Interpretation Comments Globulin (test code = 07730-1) 3.5 2.3-3.5 [facility] CenterAlbumin/Globulin Dnzta8423-76-29 05:42:00 * Test Item Value Reference Range Interpretation Comments Albumin/Globulin Ratio (test code = 1759-0) 0.6 0.8-2.0 L [facility] CenterAlkaline Phejrkebtdy3576-42-30 05:42:00* Test Item Value Reference Range Interpretation Comments Alkaline Phosphatase (test code = 6768-6) 86 40-150 [facility] CenterCHEST 2 DCIES0248-69-19 18:43:00 [facility] [address] [address] Patient Name: DEO ESCUDERO MR #: [id number] : 1955 Age/Sex: 64/F Req #: [id number] Adm Physician: Ordered by: NATALIA GREEN CONFIGURATION SPECIALIST Report #: [id number] Location: ER Room/Bed: Procedure: [id number] DX/CH EST 2 VIEWS Exam Date: 04/17/19 Exam Time: 1825 REPORT STATUS: Signed EXAMINATION: PA and lateral [...] 04/17/191843 COPY TO: NATALIA GREEN NP Urine XGG4638-99-41 17:57:00* Test Item Value Reference Range Interpretation Comments Urine WBC (test code = 5821-4) NONE 0-5 [facility] CenterUrine UTA4113-85-17 17:57:00* Test Item Value Reference Range Interpretation Comments Urine RBC (test code = 41154-5) 11-20 0-5 H [facility] CenterUrine Asdmzgug7395-72-80 17:57:00* Test Item Value Reference Range Interpretation Comments Urine Bacteria (test code = 73716-6) MODERATE NONE H [facility] CenterUrine Epithelial Ylxaw0104-02-68 17:57:00 * Test Item Value Reference Range Interpretation Comments Urine Epithelial Cells (test code = 41503-3) MANY NONE [facility] CenterUrine XLO9467-62-92 17:57:00* Test Item Value Reference Range Interpretation Comments Urine WBC (test code = 5821-4) NONE 0-5 [facility] CenterUrine RUL7256-72-40 17:57:00* Test Item Value Reference Range Interpretation Comments Urine RBC (test code = 88494-8) 11-20 0-5 H [facility] CenterUrine Bskprush9705-87-14 17:57:00* Test Item Value Reference Range Interpretation Comments Urine Bacteria (test code = 70113-9) MODERATE NONE H [facility] CenterUrine Epithelial Zdavy1511-06-50 17:57:00 * Test Item Value Reference Range Interpretation Comments Urine Epithelial Cells (test code = 73526-8) MANY NONE [facility] CenterUrine Brgey8532-52-29 17:43:00* Test Item Value Reference Range Interpretation Comments Urine Color (test code = 5778-6) YELLOW YELLOW [facility] CenterUrine Zlcnlcr8368-43-81 17:43:00* Test Item Value Reference Range Interpretation Comments Urine Clarity (test code = 64585-5) CLOUDY CLEAR H [facility] CenterUrine Specific Ojflnkv0603-31-40 17:43:00 * Test Item Value Reference Range Interpretation Comments Urine Specific [place] (test code = 5811-5) 1.025 1.010-1.02 5 [facility] CenterUrine oY2848-94-96 17:43:00* Test Item Value Reference Range Interpretation Comments Urine pH (test code = 22882-6) 6 5-7 [facility] CenterUrine Leukocyte Tmomrcbw4404-24-92 17:43:00* Test Item Value Reference Range Interpretation Comments Urine Leukocyte Esterase (test code = 96965-6) NEGATIVE NEGATIV E [facility] CenterUrine Banukwq6930-23-18 17:43:00* Test Item Value Reference Range Interpretation Comments Urine Nitrite (test code = 55092-0) NEGATIVE NEGATIVE [facility] CenterUrine Sgcuwws3173-54-50 17:43:00* Test Item Value Reference Range Interpretation Comments Urine Protein (test code = 81849-8) 2+ NEGATIVE H [facility] CenterUrine Glucose (UA)2019-04-17 17:43:00* Test Item Value Reference Range Interpretation Comments Urine Glucose (UA) (test code = 86377-1) 1+ NEGATIVE H [facility] CenterUrine Tbaxgat4026-56-52 17:43:00* Test Item Value Reference Range Interpretation Comments Urine Ketones (test code = 29667-0) NEGATIVE NEGATIVE [facility] CenterU[facility] Trefvsfdkdjv2151-34-89 17:43:00* Test Item Value Reference Range Interpretation Comments Urine Urobilinogen (test code = 26400-2) 0.2 0.2-1 [facility] CenterUrine Pserdzinf3799-63-36 17:43:00* Test Item Value Reference Range Interpretation Comments Urine Bilirubin (test code = 1977-8) NEGATIVE NEGATIVE [facility] CenterUrine Vdhss2749-97-19 17:43:00* Test Item Value Reference Range Interpretation Comments Urine Blood (test code = 49459-0) MODERATE NEGATIVE [facility] CenterUrine Vhnfm3710-81-13 17:43:00* Test Item Value Reference Range Interpretation Comments Urine Color (test code = 5778-6) YELLOW YELLOW [facility] CenterUrine Ppswexz0140-26-21 17:43:00* Test Item Value Reference Range Interpretation Comments Urine Clarity (test code = 87363-2) CLOUDY CLEAR H [facility] CenterUrine Specific Ogjqbmt0637-49-13 17:43:00 * Test Item Value Reference Range Interpretation Comments Urine Specific [place] (test code = 5811-5) 1.025 1.010-1.02 5 [facility] CenterUrine yR1777-84-43 17:43:00* Test Item Value Reference Range Interpretation Comments Urine pH (test code = 72266-6) 6 5-7 [facility] CenterUrine Leukocyte Vjrknddi3460-81-90 17:43:00* Test Item Value Reference Range Interpretation Comments Urine Leukocyte Esterase (test code = 04608-7) NEGATIVE NEGATIV E [facility] CenterUrine Rahxlbs3675-86-71 17:43:00* Test Item Value Reference Range Interpretation Comments Urine Nitrite (test code = 69762-6) NEGATIVE NEGATIVE [facility] CenterUrine Fsiztkl7928-48-20 17:43:00* Test Item Value Reference Range Interpretation Comments Urine Protein (test code = 63436-4) 2+ NEGATIVE H [facility] CenterUrine Glucose (UA)2019-04-17 17:43:00* Test Item Value Reference Range Interpretation Comments Urine Glucose (UA) (test code = 69593-4) 1+ NEGATIVE H [facility] CenterUrine Urnldyd7569-03-54 17:43:00* Test Item Value Reference Range Interpretation Comments Urine Ketones (test code = 19728-3) NEGATIVE NEGATIVE [facility] CenterUrine Vlmlkhvwkzap9426-43-10 17:43:00* Test Item Value Reference Range Interpretation Comments Urine Urobilinogen (test code = 10072-7) 0.2 0.2-1 [facility] CenterUrine Ikdozkext8022-41-36 17:43:00* Test Item Value Reference Range Interpretation Comments Urine Bilirubin (test code = 1977-8) NEGATIVE NEGATIVE [facility] CenterUrine Lmgji4485-41-93 17:43:00* Test Item Value Reference Range Interpretation Comments Urine Blood (test code = 42904-9) MODERATE NEGATIVE [facility] CenterBedside Yjsxjni6408-46-40 11:41:00* Test Item Value Reference Range Interpretation Comments Bedside Glucose (test code = 20592-9) 71 70-120 Meter ID: [id number] [facility] Healthcare [facility] Cypressodium Level 2019-01-05 06:08:00* Test Item Value Reference Range Interpretation Comments Sodium Level (test code = 2951-2) 142 136-145 [facility] CenterPotassium Bhvzh0332-28-14 06:08:00* Test Item Value Reference Range Interpretation Comments Potassium Level (test code = 2823-3) 3.5 3.5-5.1 [facility] CenterChloride Dalje9918-20-69 06:08:00* Test Item Value Reference Range Interpretation Comments Chloride Level (test code = 2075-0) 120 98-107 H [facility] CenterCarbon Dioxide Wqpbj4439-90-69 06:08:00* Test Item Value Reference Range Interpretation Comments Carbon Dioxide Level (test code = 2028-9) 15 22-29 L [facility] CenterAnion Zdz4446-23-33 06:08:00* Test Item Value Reference Range Interpretation Comments Anion Gap (test code = 19086-2) 10.5 8-16 [facility] CenterBlood Urea Oopislum0827-11-86 06:08:00* Test Item Value Reference Range Interpretation Comments Blood Urea Nitrogen (test code = 3094-0) 25 7-26 [facility] CenterCreatinine2019-07-15 06:08:00* Test Item Value Reference Range Interpretation Comments Creatinine (test code = 2160-0) 1.77 0.57-1.11 H [facility] CenterBUN/Creatinine Oqnhl6005-61-62 06:08:00* Test Item Value Reference Range Interpretation Comments BUN/Creatinine Ratio (test code = 3097-3) 14 12-16 [facility] CenterEstimat Glomerular Filtration Rate 2019-01-05 06:08:00* Test Item Value Reference Range Interpretation Comments Estimat Glomerular Filtration Rate (test code = 466007348) 29 >60 L Ranges were taken from the National Kidney Disease Education Program and the [facility] Kidney Foundation literature.Reference ranges:60 or greater: Ixqsfn30-48 ( for 3 consecutive months): Chronic kidney disease 15 or less: Kidney failureMethodist Dallas Medical CenterGlucose Pkbcs3868-10-28 06:08:00* Test Item Value Reference Range Interpretation Comments Glucose Level (test code = WKM5762) 96 74-118 [facility] CenterCalcium Nzdvn7493-04-87 06:08:00* Test Item Value Reference Range Interpretation Comments Calcium Level (test code = 12255-5) 8.0 8.4-10.2 L [facility] CenterWhite Blood Ihfof3292-21-45 05:28:00* Test Item Value Reference Range Interpretation Comments White Blood Count (test code = 6690-2) 11.05 4.8-10.8 H [facility] CenterRed Blood Cdigb3105-74-37 05:28:00* Test Item Value Reference Range Interpretation Comments Red Blood Count (test code = 789-8) 3.93 3.6-5.1 [facility] CenterHemoglobin2019-07-15 05:28:00* Test Item Value Reference Range Interpretation Comments Hemoglobin (test code = 35391-7) 10.9 12.0-16.0 L [facility] CenterHematocrit2019-07-15 05:28:00* Test Item Value Reference Range Interpretation Comments Hematocrit (test code = 4544-3) 33.2 34.2-44.1 L [facility] CenterMean Corpuscular Uynadb6035-98-95 05:28:00* Test Item Value Reference Range Interpretation Comments Mean Corpuscular Volume (test code = 787-2) 84.5 81-99 [facility] CenterMean Corpuscular Wcjcgmhznp9929-93-53 05:28:00* Test Item Value Reference Range Interpretation Comments Mean Corpuscular Hemoglobin (test code = 785-6) 27.7 28-32 L [facility] CenterMean Corpuscular Hemoglobin Concent 2019-01-05 05:28:00* Test Item Value Reference Range Interpretation Comments Mean Corpuscular Hemoglobin Concent (test code = 786-4) 32.8 31-35 [facility] CenterRed Cell Distribution Qwcni2608-88-11 05:28:00* Test Item Value Reference Range Interpretation Comments Red Cell Distribution Width (test code = 50065-7) 13.5 11.7 -14.4 [facility] CenterPlatelet Wqycs7561-70-13 05:28:00* Test Item Value Reference Range Interpretation Comments Platelet Count (test code = 777-3) 363 140-360 H [facility] CenterNeutrophils (%) (Auto)2019-01-05 05:28:00 * Test Item Value Reference Range Interpretation Comments Neutrophils (%) (Auto) (test code = 18740-9) 59.9 38.7-80.0 [facility] CenterLymphocytes (%) (Auto)2019-01-05 05:28:00 * Test Item Value Reference Range Interpretation Comments Lymphocytes (%) (Auto) (test code = 736-9) 30.0 18.0-39.1 [facility] CenterMonocytes (%) (Auto)2019-01-05 05:28:00* Test Item Value Reference Range Interpretation Comments Monocytes (%) (Auto) (test code = 5905-5) 5.6 4.4-11.3 [facility] CenterEosinophils (%) (Auto)2019-01-05 05:28:00 * Test Item Value Reference Range Interpretation Comments Eosinophils (%) (Auto) (test code = 713-8) 3.3 0.0-6.0 [facility] CenterBasophils (%) (Auto)2019-01-05 05:28:00* Test Item Value Reference Range Interpretation Comments Basophils (%) (Auto) (test code = 706-2) 0.8 0.0-1.0 [facility] CenterIM GRANULOCYTES %2019-01-05 05:28:00* Test Item Value Reference Range Interpretation Comments IM GRANULOCYTES % (test code = IM GRANULOCYTES %) 0.4 0.0- 1.0 [facility] CenterNeutrophils # (Auto)2019-01-05 05:28:00* Test Item Value Reference Range Interpretation Comments Neutrophils # (Auto) (test code = 751-8) 6.6 2.1-6.9 [facility] CenterLymphocytes # (Auto)2019-01-05 05:28:00* Test Item Value Reference Range Interpretation Comments Lymphocytes # (Auto) (test code = 83987-1) 3.3 1.0-3.2 H [facility] CenterMonocytes # (Auto)2019-01-05 05:28:00* Test Item Value Reference Range Interpretation Comments Monocytes # (Auto) (test code = 742-7) 0.6 0.2-0.8 [facility] CenterEosinophils # (Auto)2019-01-05 05:28:00* Test Item Value Reference Range Interpretation Comments Eosinophils # (Auto) (test code = 711-2) 0.4 0.0-0.4 [facility] CenterBasophils # (Auto)2019-01-05 05:28:00* Test Item Value Reference Range Interpretation Comments Basophils # (Auto) (test code = 704-7) 0.1 0.0-0.1 [facility] CenterAbsolute Immature Granulocyte (auto 2019-01-05 05:28:00* Test Item Value Reference Range Interpretation Comments Absolute Immature Granulocyte (auto (jake t code = Absolute Immature Granulocyte (auto) 0.04 0-0.1 [facility] CenterTotal Zeqanswhg8127-91-47 06:42:00* Test Item Value Reference Range Interpretation Comments Total Bilirubin (test code = 1975-2) 0.3 0.2-1.2 [facility] CenterAspartate Amino Transf (AST/SGOT) 2019-01-03 06:42:00* Test Item Value Reference Range Interpretation Comments Aspartate Amino Transf (AST/SGOT) (test code = Aspartate Amino Transf (AST/SGOT)) 10 5-34 [facility] CenterAlanine Aminotransferase (ALT/SGPT) 2019-01-03 06:42:00* Test Item Value Reference Range Interpretation Comments Alanine Aminotransferase (ALT/SGPT) (test code = 1742-6) < 6 0-55 [facility] CenterTotal Dsrqmdq1378-08-12 06:42:00* Test Item Value Reference Range Interpretation Comments Total Protein (test code = 2885-2) 4.5 6.5-8.1 L [facility] CenterAlbumin2019-07-13 06:42:00* Test Item Value Reference Range Interpretation Comments Albumin (test code = 1751-7) 1.7 3.5-5.0 L [facility] CenterGlobulin2019-07-13 06:42:00* Test Item Value Reference Range Interpretation Comments Globulin (test code = 67217-5) 2.8 2.3-3.5 [facility] CenterAlbumin/Globulin Cgtdt6910-79-09 06:42:00 * Test Item Value Reference Range Interpretation Comments Albumin/Globulin Ratio (test code = 1759-0) 0.6 0.8-2.0 L [facility] CenterAlkaline Rrounrfdkdm8235-97-97 06:42:00* Test Item Value Reference Range Interpretation Comments Alkaline Phosphatase (test code = 6768-6) 64 40-150 [facility] CenterMRI BRAIN FF0109-46-35 11:46:[address] [address] Patient Name: DEO ESCUDERO MR #: [id number] : 1955 Age/Sex: 63[facility]F [id number] Req #: [id number] Adm Physician: ZAINA GORDON MD Ordered by: KARLI MANSFIELD MD Report #: [id number] Location: MED/SURG Room/Bed: [facility] Procedure: [id number] MRI/MRI BRAIN WO Exam Date: Exam Time: REPORT STATUS: Signed EXAMINATION: Brain MRI and MR angiogram of the [place] CLINICAL HISTORY: Left [...] significant inflammatory d isease. MRA OF THE [place] : The distal internal carotid, dis maura vertebral, basilar, and cerebral arteries are patent. No significant sten osis, occlusion, aneurysm, or arteriovenous malformation is seen. Anatomi c variation: Anterior Communicating Artery: Patent Posterior Communicating A rteries: Patent on the right with origin of the right SHAREPOINT DESIGNER DEVELOPER, not well-visu alized on the left Vertebral [...] MANSFIELD MD MRA HEAD WO 2019-01-02 11:46:00 [address] [address] Patient Name: DEO ESCUDERO MR #: [id number] : 1955 Age/Sex: 63/F Req #: [id number] Adm Physician: ZAINA GORDON MD Ordered by: ZAINA GORDON MD Report #: [id number] Location: MED/SURG Room/Bed: [facility] Procedure: [id number] MR I/MRA HEAD WO Exam Date: Exam Time: REPORT STATUS: Signed EXAMINATION: Brain MRI a nd MR angiogram of the [place] CLINICAL HISTORY: Left [...] significant inflammatory disea se. MRA OF THE [place] : The distal internal carotid, distal vertebral, basilar, and cerebral arteries are patent. No significant stenosis , occlusion, aneurysm, or arteriovenous malformation is seen. Anatomic va riation: Anterior Communicating Artery: Patent Posterior Communicating Arter ies: Patent on the right with origin of the right SHAREPOINT DESIGNER DEVELOPER, not well-visualiz ed on the left Vertebral [...] COPY TO: ZAINA GORDON MD MRA NECK OP5920-94-93 11:46:00 [address] [address] Patient Name: DEO ESCUDERO MR #: [id number] : 1955 Age/Sex: 63/F Req #: [id number] Adm Physician: ZAINA GORDON MD Ordered by: ZAINA GORDON MD Report #: [id number] Location: MED/SURG Room/Bed: [facility] Procedure: [id number] MR I/MRA NECK WO Exam Date: Exam Time: REPORT STATUS: Signed EXAMINATION: Brain MRI a nd MR angiogram of the [place] CLINICAL HISTORY: Left [...] significant inflammatory disea se. MRA OF THE [place] : The distal internal carotid, distal vertebral, basilar, and cerebral arteries are patent. No significant stenosis , occlusion, aneurysm, or arteriovenous malformation is seen. Anatomic va riation: Anterior Communicating Artery: Patent Posterior Communicating Arter ies: Patent on the right with origin of the right SHAREPOINT DESIGNER DEVELOPER, not well-visualiz ed on the left Vertebral [...] code = Hemoglobin A1c Percent) 5.5 4.0-7.0 [facility] CenterTriglycerides Wbyaz2533-99-96 07:19:00* Test Item Value Reference Range Interpretation Comments Triglycerides Level (test code = 2571-8) 166 0-149 H [facility] CenterCholesterol Mgnjh6761-37-14 07:19:00* Test Item Value Reference Range Interpretation Comments Cholesterol Level (test code = 2093-3) 149 0-199 Less than 200 mg/dL Low Pkat731 - 239 mg/dL Borderline Cztz130 m g/dl and greater High Risk [facility] CenterLDL Twwwuzqkzxu2370-89-59 07:19:00* Test Item Value Reference Range Interpretation Comments LDL Cholesterol (test code = 2089-1) 86 60-130 [facility] CenterHDL Jblmyqafnqk3577-75-67 07:19:00* Test Item Value Reference Range Interpretation Comments HDL Cholesterol (test code = 2085-9) 30 40-60 L [facility] CenterCholesterol/HDL Qrlli8500-02-83 07:19:00 * Test Item Value Reference Range Interpretation Comments Cholesterol/HDL Ratio (test code = 9830-1) 5.0 3.0-3.6 H [facility] CenterUrine VBL7984-83-73 15:50:00* Test Item Value Reference Range Interpretation Comments Urine WBC (test code = 5821-4) 0-5 0-5 [facility] CenterUrine GKY7173-93-34 15:50:00* Test Item Value Reference Range Interpretation Comments Urine RBC (test code = 35903-9) 6-10 0-5 H [facility] CenterUrine Egrckkwa1124-13-03 15:50:00* Test Item Value Reference Range Interpretation Comments Urine Bacteria (test code = 83038-9) MODERATE NONE H [facility] CenterUrine Epithelial Pyowh6009-20-13 15:50:00 * Test Item Value Reference Range Interpretation Comments Urine Epithelial Cells (test code = 94679-7) MODERATE NONE [facility] CenterUrine Giylq8485-35-74 15:38:00* Test Item Value Reference Range Interpretation Comments Urine Color (test code = 5778-6) YELLOW YELLOW [facility] CenterUrine Ccrktoz5633-53-29 15:38:00* Test Item Value Reference Range Interpretation Comments Urine Clarity (test code = 04578-2) CLEAR CLEAR [facility] CenterUrine Specific Lfwhsgm9104-80-89 15:38:00 * Test Item Value Reference Range Interpretation Comments Urine Specific [place] (test code = 5811-5) 1.015 1.010-1.02 5 [facility] vT0236-68-17 15:38:00* Test Item Value Reference Range Interpretation Comments Urine pH (test code = 46378-7) 6.5 5-7 [facility] Leukocyte Chmcjbrz4935-48-02 15:38:00* Test Item Value Reference Range Interpretation Comments Urine Leukocyte Esterase (test code = 13179-0) NEGATIVE NEGATIV E [facility] Ckaoyxm2807-44-88 15:38:00* Test Item Value Reference Range Interpretation Comments Urine Nitrite (test code = 80227-9) NEGATIVE NEGATIVE [facility] Kcgckuu3495-08-64 15:38:00* Test Item Value Reference Range Interpretation Comments Urine Protein (test code = 96061-5) 2+ NEGATIVE H [facility] Glucose (UA)2019-01-01 15:38:00* Test Item Value Reference Range Interpretation Comments Urine Glucose (UA) (test code = 09139-3) 2+ NEGATIVE H [facility] Rcsfhlt6144-91-61 15:38:00* Test Item Value Reference Range Interpretation Comments Urine Ketones (test code = 70358-5) NEGATIVE NEGATIVE [facility] Onecelchetwk0010-67-24 15:38:00* Test Item Value Reference Range Interpretation Comments Urine Urobilinogen (test code = 15165-5) 0.2 0.2-1 [facility] Lejtbshrn6503-99-92 15:38:00* Test Item Value Reference Range Interpretation Comments Urine Bilirubin (test code = 1977-8) NEGATIVE NEGATIVE [facility] Ruztj9332-42-96 15:38:00* Test Item Value Reference Range Interpretation Comments Urine Blood (test code = 47714-0) 1+ NEGATIVE [facility] CenterCreatine Erjuzm8570-58-38 14:59:00* Test Item Value Reference Range Interpretation Comments Creatine Kinase (test code = 2157-6) 56 29-168 [facility] CenterCreat[facility] Kinase ZH1185-13-37 14:59:00* Test Item Value Reference Range Interpretation Comments Creatine Kinase MB (test code = 23882-9) 3.20 0-5.0 [facility] CenterTroponin W7573-98-72 14:59:00* Test Item Value Reference Range Interpretation Comments Troponin I (test code = BCI5206) 0.004 0-0.300 [facility] CenterProthrombin Pskz2488-51-98 14:42:00* Test Item Value Reference Range Interpretation Comments Prothrombin Time (test code = 5902-2) 12.7 11.9-14.5 [facility] CenterProthromb Time International Ratio 2019-01-01 14:42:00* Test Item Value Reference Range Interpretation Comments Prothromb Time International Ratio (test code = 6301-6) 0.91 Oral Anticoagulant Therapy INR Values:1. Low Intensity Therapy 1.5 - 2.02 . Moderate Intensity Therapy 2.0 - 3.03. High Intensity Therapy(1) 2.5 - 3. 54. High Intensity Therapy(2) 3.0 - 4.05. Panic Value INR > 5.0 [facility] CenterActivated Partial Thromboplast Time 2019-01-01 14:42:00* Test Item Value Reference Range Interpretation Comments Activated Partial Thromboplast Time (test code = 78457-2) 30.3 23.8-35.5 [facility] CenterProthrombin Jxay4788-54-08 14:42:00* Test Item Value Reference Range Interpretation Comments Prothrombin Time (test code = 5902-2) 12.7 11.9-14.5 [facility] CenterProthromb Time International Ratio 2019-01-01 14:42:00* Test Item Value Reference Range Interpretation Comments Prothromb Time International Ratio (test code = 6301-6) 0.91 Oral Anticoagulant Therapy INR Values:1. Low Intensity Therapy 1.5 - 2.02 . Moderate Intensity Therapy 2.0 - 3.03. High Intensity Therapy(1) 2.5 - 3. 54. High Intensity Therapy(2) 3.0 - 4.05. Panic Value INR > 5.0 [facility] CenterAct[facility] Partial Thromboplast Time 2019-01-01 14:42:00* Test Item Value Reference Range Interpretation Comments Activated Partial Thromboplast Time (test code = 53114-9) 30.3 23.8-35.5 [facility] CenterProthrombin Lguj2814-50-45 14:42:00* Test Item Value Reference Range Interpretation Comments Prothrombin Time (test code = 5902-2) 12.7 11.9-14.5 [facility] CenterProthromb Time International Ratio 2019-01-01 14:42:00* Test Item Value Reference Range Interpretation Comments Prothromb Time International Ratio (test code = 6301-6) 0.91 Oral Anticoagulant Therapy INR Values:1. Low Intensity Therapy 1.5 - 2.02 . Moderate Intensity Therapy 2.0 - 3.03. High Intensity Therapy(1) 2.5 - 3. 54. High Intensity Therapy(2) 3.0 - 4.05. Panic Value INR > 5.0 [facility] CenterAct[facility] Partial Thromboplast Time 2019-01-01 14:42:00* Test Item Value Reference Range Interpretation Comments Activated Partial Thromboplast Time (test code = 35033-5) 30.3 23.8-35.5 [facility] CenterCHEST SINGLE (PORTABLE)2019-01-01 14:24:00 [facility] [address] [place] [address] Patient Name: DEO ESCUDERO MR #: [id number] : 1955 Age/Sex: 63/F Req #: [id number] Adm Physician: Ordered by: KARLI MANSFIELD MD Report #: [id number] Location: Room/Bed: Procedure: [id number] D X/CHEST SINGLE (PORTABLE) Exam Date: 01/01/19 [...] 2:24 PM Dictated By: DENISSE HEADLEY MD 142 Transcribe d By: SCAR on 01/01/191423 COPY TO: KARLI MANSFIELD MD CT BRAIN YK5348-68-08 13:27:00 [place] [address] Patient Name: DEO ESCUDERO MR #: [id number] : 1955 Age/Sex: 63/F Req #: [id number] Adm Physician: Ordered by: JANIE RIVER MD Report #: [id number] Location: ER Room/Bed: Procedure: [id number] CT/ CT BRAIN WO Exam Date: 01/01/19 [...] 1332 COPY TO: JANIE GODINEZ MD Bedside Tvuispv1716-04-98 16:59:00* Test Item Value Reference Range Interpretation Comments Bedside Glucose (test code = 66070-1) 105 70-120 Meter ID: [id number] CenterBedside Glucose 2018-10-02 16:59:00* Test Item Value Reference Range Interpretation Comments Bedside Glucose (test code = 50703-0) 105 70-120 Meter ID: [id number] [facility] Medical CenterUrine Random Total Pvynyiz3921-01-70 10:39:00* Test Item Value Reference Range Interpretation Comments Urine Random Total Protein (test code = 2888-6) 1055.7 1-14 H [facility] CenterU[facility] Protein/Creatinine Acsnb5461-29-19 10:39:00* Test Item Value Reference Range Interpretation Comments Urine Protein/Creatinine Ratio (test code = 61654-6) 26.00 [facility] CenterU[facility] Random Total Ilxarhv7379-94-94 10:39:00* Test Item Value Reference Range Interpretation Comments Urine Random Total Protein (test code = 2888-6) 1055.7 1-14 H [facility] CenterU[facility] Protein/Creatinine Txexd5744-39-87 10:39:00* Test Item Value Reference Range Interpretation Comments Urine Protein/Creatinine Ratio (test code = 72048-8) 26.00 [facility] CenterU[facility] Random Total Lmfxyof2084-72-86 10:39:00* Test Item Value Reference Range Interpretation Comments Urine Random Total Protein (test code = 2888-6) 1055.7 1-14 H [facility] CenterU[facility] Protein/Creatinine Legwp7060-89-51 10:39:00* Test Item Value Reference Range Interpretation Comments Urine Protein/Creatinine Ratio (test code = 72928-9) 26.00 [facility] Center[facility] Random Total Sijafzo4641-94-25 10:39:00* Test Item Value Reference Range Interpretation Comments Urine Random Total Protein (test code = 2888-6) 1055.7 1-14 H [facility] CenterU[facility] Protein/Creatinine Sabyx9389-37-62 10:39:00* Test Item Value Reference Range Interpretation Comments Urine Protein/Creatinine Ratio (test code = 53326-8) 26.00 [facility] CenterU[facility] Random Total Aacqvtj9951-04-57 10:39:00* Test Item Value Reference Range Interpretation Comments Urine Random Total Protein (test code = 2888-6) 1055.7 1-14 H [facility] CenterU[facility] Protein/Creatinine Yrmdt3390-37-51 10:39:00* Test Item Value Reference Range Interpretation Comments Urine Protein/Creatinine Ratio (test code = 97747-2) 26.00 [facility] CenterU[facility] Random Total Ioveomd7705-93-16 10:39:00* Test Item Value Reference Range Interpretation Comments Urine Random Total Protein (test code = 2888-6) 1055.7 1-14 H [facility] CenterU[facility] Protein/Creatinine Gtfge6992-64-21 10:39:00* Test Item Value Reference Range Interpretation Comments Urine Protein/Creatinine Ratio (test code = 47818-2) 26.00 [facility] CenterU[facility] Bintegiixh1328-28-83 10:37:00* Test Item Value Reference Range Interpretation Comments Urine Creatinine (test code = 2161-8) 40.02 47-110 L [facility] Kcefeoteqb5419-17-41 10:37:00* Test Item Value Reference Range Interpretation Comments Urine Creatinine (test code = 2161-8) 40.02 47-110 L [facility] Avwawjfmnm8082-06-07 10:37:00* Test Item Value Reference Range Interpretation Comments Urine Creatinine (test code = 2161-8) 40.02 47-110 L [facility] CenterU[facility] Usxsrnmaim7906-82-70 10:37:00* Test Item Value Reference Range Interpretation Comments Urine Creatinine (test code = 2161-8) 40.02 47-110 L [facility] CenterU[facility] Gaithylcyv9378-92-60 10:37:00* Test Item Value Reference Range Interpretation Comments Urine Creatinine (test code = 2161-8) 40.02 47-110 L [facility] CenterU[facility] Mzacvvixud6884-68-60 10:37:00* Test Item Value Reference Range Interpretation Comments Urine Creatinine (test code = 2161-8) 40.02 47-110 L [facility] CenterBedside Iftdboj1074-80-63 07:26:00* Test Item Value Reference Range Interpretation Comments Bedside Glucose (test code = 27862-0) 101 70-120 Meter ID: [id number] [facility] CenterUrine MHD3145-08-71 06:31:00* Test Item Value Reference Range Interpretation Comments Urine WBC (test code = 5821-4) 0-5 0-5 [facility] TWZ9956-96-41 06:31:00* Test Item Value Reference Range Interpretation Comments Urine RBC (test code = 29962-3) 0-5 0-5 [facility] CenterU[facility] Stahfnms2293-14-81 06:31:00* Test Item Value Reference Range Interpretation Comments Urine Bacteria (test code = 99225-7) RARE NONE [facility] Epithelial Vbwhd9194-88-99 06:31:00 * Test Item Value Reference Range Interpretation Comments Urine Epithelial Cells (test code = 80222-4) RARE NONE [facility] CenterU[facility] DBX2345-14-22 06:31:00* Test Item Value Reference Range Interpretation Comments Urine WBC (test code = 5821-4) 0-5 0-5 [facility] CenterU[facility] PKA2448-31-85 06:31:00* Test Item Value Reference Range Interpretation Comments Urine RBC (test code = 05257-4) 0-5 0-5 [facility] CenterU[facility] Bexsiwip9537-48-78 06:31:00* Test Item Value Reference Range Interpretation Comments Urine Bacteria (test code = 04050-9) RARE NONE [facility] Epithelial Gjpfm8886-86-12 06:31:00 * Test Item Value Reference Range Interpretation Comments Urine Epithelial Cells (test code = 65832-0) RARE NONE [facility] CenterU[facility] UJC5970-63-71 06:31:00* Test Item Value Reference Range Interpretation Comments Urine WBC (test code = 5821-4) 0-5 0-5 [facility] UKJ0635-01-84 06:31:00* Test Item Value Reference Range Interpretation Comments Urine RBC (test code = 27491-2) 0-5 0-5 [facility] Center[facility] Uucrlqxa8156-92-62 06:31:00* Test Item Value Reference Range Interpretation Comments Urine Bacteria (test code = 61874-9) RARE NONE [facility] CenterU[facility] Epithelial Nnslf6570-07-58 06:31:00 * Test Item Value Reference Range Interpretation Comments Urine Epithelial Cells (test code = 28587-9) RARE NONE [facility] CenterU[facility] Kneua9733-14-22 06:19:00* Test Item Value Reference Range Interpretation Comments Urine Color (test code = 5778-6) YELLOW YELLOW [facility] CenterU[facility] Rvujimt3198-33-79 06:19:00* Test Item Value Reference Range Interpretation Comments Urine Clarity (test code = 36617-1) SL CLOUDY CLEAR [facility] Specific Lpoghrz9566-92-29 06:19:00 * Test Item Value Reference Range Interpretation Comments Urine Specific [place] (test code = 5811-5) 1.020 1.010-1.02 5 [facility] CenterU[facility] kU3275-36-38 06:19:00* Test Item Value Reference Range Interpretation Comments Urine pH (test code = 26100-8) 6.5 5-7 [facility] Leukocyte Rrsqykoq9273-46-33 06:19:00* Test Item Value Reference Range Interpretation Comments Urine Leukocyte Esterase (test code = 5799-2) NEGATIVE NEGATIVE [facility] Vbmsavv3489-66-16 06:19:00* Test Item Value Reference Range Interpretation Comments Urine Nitrite (test code = 38018-8) NEGATIVE NEGATIVE [facility] Xilraet4731-90-53 06:19:00* Test Item Value Reference Range Interpretation Comments Urine Protein (test code = 5804-0) 3+ NEGATIVE H [facility] CenterU[facility] Glucose (UA)2018-10-02 06:19:00* Test Item Value Reference Range Interpretation Comments Urine Glucose (UA) (test code = 2349-9) 2+ NEGATIVE H [facility] CenterU[facility] Vxujebl5429-42-74 06:19:00* Test Item Value Reference Range Interpretation Comments Urine Ketones (test code = 41915-3) NEGATIVE NEGATIVE [facility] Exsdxtovgzqy4952-10-95 06:19:00* Test Item Value Reference Range Interpretation Comments Urine Urobilinogen (test code = 01355-5) 0.2 0.2-1 [facility] Jwaqidbqy5430-25-83 06:19:00* Test Item Value Reference Range Interpretation Comments Urine Bilirubin (test code = 1978-6) NEGATIVE NEGATIVE [facility] Rvkls3460-83-79 06:19:00* Test Item Value Reference Range Interpretation Comments Urine Blood (test code = 46680-1) TRACE NEGATIVE H [facility] CenterU[facility] Akkis1195-88-39 06:19:00* Test Item Value Reference Range Interpretation Comments Urine Color (test code = 5778-6) YELLOW YELLOW [facility] Wwczoer9180-69-84 06:19:00* Test Item Value Reference Range Interpretation Comments Urine Clarity (test code = 39168-4) SL CLOUDY CLEAR [facility] Specific Ywpzwwq8606-40-39 06:19:00 * Test Item Value Reference Range Interpretation Comments Urine Specific [place] (test code = 5811-5) 1.020 1.010-1.02 5 [facility] CenterU[facility] uU4044-57-49 06:19:00* Test Item Value Reference Range Interpretation Comments Urine pH (test code = 84466-7) 6.5 5-7 [facility] Leukocyte Lbpcxzir0902-67-00 06:19:00* Test Item Value Reference Range Interpretation Comments Urine Leukocyte Esterase (test code = 5799-2) NEGATIVE NEGATIVE [facility] Center[facility] Jifwazk8850-33-20 06:19:00* Test Item Value Reference Range Interpretation Comments Urine Nitrite (test code = 52668-5) NEGATIVE NEGATIVE [facility] Zhbbhta0755-94-56 06:19:00* Test Item Value Reference Range Interpretation Comments Urine Protein (test code = 5804-0) 3+ NEGATIVE H [facility] CenterU[facility] Glucose (UA)2018-10-02 06:19:00* Test Item Value Reference Range Interpretation Comments Urine Glucose (UA) (test code = 2349-9) 2+ NEGATIVE H [facility] CenterU[facility] Pypsndc0737-81-46 06:19:00* Test Item Value Reference Range Interpretation Comments Urine Ketones (test code = 47992-4) NEGATIVE NEGATIVE [facility] CenterU[facility] Ptflgljsbapj9402-44-34 06:19:00* Test Item Value Reference Range Interpretation Comments Urine Urobilinogen (test code = 95697-4) 0.2 0.2-1 [facility] Loakeojpc1643-48-27 06:19:00* Test Item Value Reference Range Interpretation Comments Urine Bilirubin (test code = 1978-6) NEGATIVE NEGATIVE [facility] Twmov0714-67-38 06:19:00* Test Item Value Reference Range Interpretation Comments Urine Blood (test code = 43542-8) TRACE NEGATIVE H [facility] CenterU[facility] Bnqll3338-94-85 06:19:00* Test Item Value Reference Range Interpretation Comments Urine Color (test code = 5778-6) YELLOW YELLOW [facility] Qgebzfi4792-78-43 06:19:00* Test Item Value Reference Range Interpretation Comments Urine Clarity (test code = 59294-7) SL CLOUDY CLEAR [facility] Specific Bjdxclw7025-19-61 06:19:00 * Test Item Value Reference Range Interpretation Comments Urine Specific [place] (test code = 5811-5) 1.020 1.010-1.02 5 [facility] Center[facility] dF9219-37-26 06:19:00* Test Item Value Reference Range Interpretation Comments Urine pH (test code = 60852-1) 6.5 5-7 [facility] Leukocyte Nlytxtdj6075-66-66 06:19:00* Test Item Value Reference Range Interpretation Comments Urine Leukocyte Esterase (test code = 5799-2) NEGATIVE NEGATIVE [facility] CenterU[facility] Lecjhny0357-53-34 06:19:00* Test Item Value Reference Range Interpretation Comments Urine Nitrite (test code = 27779-2) NEGATIVE NEGATIVE [facility] Center[facility] Ixfzagj7219-90-44 06:19:00* Test Item Value Reference Range Interpretation Comments Urine Protein (test code = 5804-0) 3+ NEGATIVE H [facility] CenterU[facility] Glucose (UA)2018-10-02 06:19:00* Test Item Value Reference Range Interpretation Comments Urine Glucose (UA) (test code = 2349-9) 2+ NEGATIVE H [facility] CenterU[facility] Uzihfrq0725-70-40 06:19:00* Test Item Value Reference Range Interpretation Comments Urine Ketones (test code = 11659-4) NEGATIVE NEGATIVE [facility] Center[facility] Ihktbwfnotlu1655-39-75 06:19:00* Test Item Value Reference Range Interpretation Comments Urine Urobilinogen (test code = 37040-5) 0.2 0.2-1 [facility] Center[facility] Ljhvxfjxr6673-19-18 06:19:00* Test Item Value Reference Range Interpretation Comments Urine Bilirubin (test code = 1978-6) NEGATIVE NEGATIVE [facility] Center[facility] Rtbfk7643-05-81 06:19:00* Test Item Value Reference Range Interpretation Comments Urine Blood (test code = 72477-9) TRACE NEGATIVE H [facility] Qnlpm2571-43-62 05:45:00* Test Item Value Reference Range Interpretation Comments Sodium Level (test code = 2951-2) 138 136-145 [facility] CenterPotassium Epaxz4063-34-57 05:45:00* Test Item Value Reference Range Interpretation Comments Potassium Level (test code = 2823-3) 4.8 3.5-5.1 [facility] CenterChloride Urgvu3543-42-94 05:45:00* Test Item Value Reference Range Interpretation Comments Chloride Level (test code = 2075-0) 116 98-107 H [facility] CenterCarbon Dioxide Qrxzg3569-46-14 05:45:00* Test Item Value Reference Range Interpretation Comments Carbon Dioxide Level (test code = 2028-9) 18 22-29 L [facility] CenterAnion Qfu0609-46-50 05:45:00* Test Item Value Reference Range Interpretation Comments Anion Gap (test code = 66719-3) 8.8 8-16 [facility] CenterBlood Urea Bniszzok9873-22-14 05:45:00* Test Item Value Reference Range Interpretation Comments Blood Urea Nitrogen (test code = 3094-0) 39 7-26 H [facility] CenterCreatinine2019-04-11 05:45:00* Test Item Value Reference Range Interpretation Comments Creatinine (test code = 2160-0) 1.74 0.57-1.11 H [facility] CenterBUN/Creatinine Fcuaa5888-27-71 05:45:00* Test Item Value Reference Range Interpretation Comments BUN/Creatinine Ratio (test code = 3097-3) 22 6-25 [facility] CenterEstimat Glomerular Filtration Rate 2018-10-02 05:45:00* Test Item Value Reference Range Interpretation Comments Estimat Glomerular Filtration Rate (test code = 655266335) 29 >60 L Ranges were taken from the National Kidney Disease Education Program and the formerly [facility] Kidney Foundation literature.Reference ranges:60 or greater: Ojkulj00-91 ( for 3 consecutive months): Chronic kidney disease 15 or less: Kidney failureMethodist Dallas Medical CenterGlucose Tludi1816-76-05 05:45:00* Test Item Value Reference Range Interpretation Comments Glucose Level (test code = ZSQ5610) 104 74-118 [facility] CenterCalcium Immsi5365-74-78 05:45:00* Test Item Value Reference Range Interpretation Comments Calcium Level (test code = 44169-2) 8.4 8.4-10.2 [facility] Dnclu4061-50-82 05:45:00* Test Item Value Reference Range Interpretation Comments Sodium Level (test code = 2951-2) 138 136-145 [facility] CenterPotassium Jiwru5795-86-47 05:45:00* Test Item Value Reference Range Interpretation Comments Potassium Level (test code = 2823-3) 4.8 3.5-5.1 [facility] CenterChloride Ytgsu0730-32-13 05:45:00* Test Item Value Reference Range Interpretation Comments Chloride Level (test code = 2075-0) 116 98-107 H [facility] CenterCarbon Dioxide Ezoth4234-45-17 05:45:00* Test Item Value Reference Range Interpretation Comments Carbon Dioxide Level (test code = 2028-9) 18 22-29 L [facility] CenterAnion Esk1328-40-56 05:45:00* Test Item Value Reference Range Interpretation Comments Anion Gap (test code = 01715-6) 8.8 8-16 [facility] CenterBlood Urea Immgnuqa5400-00-55 05:45:00* Test Item Value Reference Range Interpretation Comments Blood Urea Nitrogen (test code = 3094-0) 39 7-26 H [facility] CenterCreatinine2019-04-11 05:45:00* Test Item Value Reference Range Interpretation Comments Creatinine (test code = 2160-0) 1.74 0.57-1.11 H [facility] CenterBUN/Creatinine Ruleg8735-22-01 05:45:00* Test Item Value Reference Range Interpretation Comments BUN/Creatinine Ratio (test code = 3097-3) 22 6-25 [facility] CenterEstimat Glomerular Filtration Rate 2018-10-02 05:45:00* Test Item Value Reference Range Interpretation Comments Estimat Glomerular Filtration Rate (test code = 856005470) 29 >60 L Ranges were taken from the National Kidney Disease Education Program and the formerly [facility] Kidney Foundation literature.Reference ranges:60 or greater: Svtbvy93-68 ( for 3 consecutive months): Chronic kidney disease 15 or less: Kidney failureMethodist [facility] Medical CenterGlucose Rmerp6147-70-91 05:45:00* Test Item Value Reference Range Interpretation Comments Glucose Level (test code = UHK1685) 104 74-118 [facility] CenterCalcium Nmzad6376-39-04 05:45:00* Test Item Value Reference Range Interpretation Comments Calcium Level (test code = 23153-6) 8.4 8.4-10.2 [facility] Zimdc8396-01-63 05:45:00* Test Item Value Reference Range Interpretation Comments Sodium Level (test code = 2951-2) 138 136-145 [facility] CenterPotassium Zdpra4667-96-75 05:45:00* Test Item Value Reference Range Interpretation Comments Potassium Level (test code = 2823-3) 4.8 3.5-5.1 [facility] CenterChloride Ciubp9306-53-38 05:45:00* Test Item Value Reference Range Interpretation Comments Chloride Level (test code = 2075-0) 116 98-107 H [facility] CenterCarbon Dioxide Gtruk3689-45-28 05:45:00* Test Item Value Reference Range Interpretation Comments Carbon Dioxide Level (test code = 2028-9) 18 22-29 L [facility] CenterAnion Nla4074-93-17 05:45:00* Test Item Value Reference Range Interpretation Comments Anion Gap (test code = 13303-1) 8.8 8-16 [facility] CenterBlood Urea Dagkdefu5313-96-98 05:45:00* Test Item Value Reference Range Interpretation Comments Blood Urea Nitrogen (test code = 3094-0) 39 7-26 H [facility] CenterCreatinine2019-04-11 05:45:00* Test Item Value Reference Range Interpretation Comments Creatinine (test code = 2160-0) 1.74 0.57-1.11 H [facility] CenterBUN/Creatinine Yaqqj8523-24-58 05:45:00* Test Item Value Reference Range Interpretation Comments BUN/Creatinine Ratio (test code = 3097-3) 22 6-25 [facility] CenterEstimat Glomerular Filtration Rate 2018-10-02 05:45:00* Test Item Value Reference Range Interpretation Comments Estimat Glomerular Filtration Rate (test code = 628432229) 29 >60 L Ranges were taken from the National Kidney Disease Education Program and the [facility] literature.Reference ranges:60 or greater: Cqtvzs90-87 ( for 3 consecutive months): Chronic kidney disease 15 or less: Kidney failureMethodist Dallas Medical CenterGlucose Jvwie0124-33-32 05:45:00* Test Item Value Reference Range Interpretation Comments Glucose Level (test code = BCD8221) 104 74-118 [facility] [facility] CenterCalcium Plxbm1313-61-05 05:45:00* Test Item Value Reference Range Interpretation Comments Calcium Level (test code = 18193-5) 8.4 8.4-10.2 [facility] CenterWhite Blood Bpfcw5518-77-53 04:58:00* Test Item Value Reference Range Interpretation Comments White Blood Count (test code = 6690-2) 11.01 4.8-10.8 H [facility] CenterRed Blood Swjvr4033-75-63 04:58:00* Test Item Value Reference Range Interpretation Comments Red Blood Count (test code = 789-8) 4.63 3.6-5.1 [facility] CenterHemoglobin2019-04-11 04:58:00* Test Item Value Reference Range Interpretation Comments Hemoglobin (test code = 91081-3) 12.2 12.0-16.0 [facility] CenterHematocrit2019-04-11 04:58:00* Test Item Value Reference Range Interpretation Comments Hematocrit (test code = 4544-3) 38.7 34.2-44.1 [facility] CenterMean Corpuscular Rmcgjr9093-24-54 04:58:00* Test Item Value Reference Range Interpretation Comments Mean Corpuscular Volume (test code = 787-2) 83.6 81-99 [facility] CenterMean Corpuscular Hzhfsmuxhq5377-73-61 04:58:00* Test Item Value Reference Range Interpretation Comments Mean Corpuscular Hemoglobin (test code = 785-6) 26.3 28-32 L [facility] CenterMean Corpuscular Hemoglobin Concent 2018-10-02 04:58:00* Test Item Value Reference Range Interpretation Comments Mean Corpuscular Hemoglobin Concent (test code = 786-4) 31.5 31-35 [facility] CenterRed Cell Distribution Bqxvw1254-79-54 04:58:00* Test Item Value Reference Range Interpretation Comments Red Cell Distribution Width (test code = 67267-2) 14.8 11.7 -14.4 H [facility] CenterPlatelet Wntqc9681-55-42 04:58:00* Test Item Value Reference Range Interpretation Comments Platelet Count (test code = 777-3) 394 140-360 H [facility] CenterNeutrophils (%) (Auto)2018-10-02 04:58:00 * Test Item Value Reference Range Interpretation Comments Neutrophils (%) (Auto) (test code = 43149-7) 51.9 38.7-80.0 [facility] CenterLymphocytes (%) (Auto)2018-10-02 04:58:00 * Test Item Value Reference Range Interpretation Comments Lymphocytes (%) (Auto) (test code = 736-9) 37.2 18.0-39.1 [facility] CenterMonocytes (%) (Auto)2018-10-02 04:58:00* Test Item Value Reference Range Interpretation Comments Monocytes (%) (Auto) (test code = 5905-5) 5.8 4.4-11.3 [facility] CenterEosinophils (%) (Auto)2018-10-02 04:58:00 * Test Item Value Reference Range Interpretation Comments Eosinophils (%) (Auto) (test code = 713-8) 3.7 0.0-6.0 [facility] CenterBasophils (%) (Auto)2018-10-02 04:58:00* Test Item Value Reference Range Interpretation Comments Basophils (%) (Auto) (test code = 706-2) 0.9 0.0-1.0 [facility] CenterIM GRANULOCYTES %2018-10-02 04:58:00* Test Item Value Reference Range Interpretation Comments IM GRANULOCYTES % (test code = IM GRANULOCYTES %) 0.5 0.0- 1.0 [facility] CenterNeutrophils # (Auto)2018-10-02 04:58:00* Test Item Value Reference Range Interpretation Comments Neutrophils # (Auto) (test code = 751-8) 5.7 2.1-6.9 [facility] CenterLymphocytes # (Auto)2018-10-02 04:58:00* Test Item Value Reference Range Interpretation Comments Lymphocytes # (Auto) (test code = 77126-7) 4.1 1.0-3.2 H [facility] CenterMonocytes # (Auto)2018-10-02 04:58:00* Test Item Value Reference Range Interpretation Comments Monocytes # (Auto) (test code = 742-7) 0.6 0.2-0.8 [facility] CenterEosinophils # (Auto)2018-10-02 04:58:00* Test Item Value Reference Range Interpretation Comments Eosinophils # (Auto) (test code = 711-2) 0.4 0.0-0.4 [facility] CenterBasophils # (Auto)2018-10-02 04:58:00* Test Item Value Reference Range Interpretation Comments Basophils # (Auto) (test code = 704-7) 0.1 0.0-0.1 [facility] CenterAbsolute Immature Granulocyte (auto 2018-10-02 04:58:00* Test Item Value Reference Range Interpretation Comments Absolute Immature Granulocyte (auto (jake t code = Absolute Immature Granulocyte (auto) 0.06 0-0.1 [facility] CenterWhite Blood Eqmts3904-54-60 04:58:00* Test Item Value Reference Range Interpretation Comments White Blood Count (test code = 6690-2) 11.01 4.8-10.8 H [facility] CenterRed Blood Wnfvp4296-33-44 04:58:00* Test Item Value Reference Range Interpretation Comments Red Blood Count (test code = 789-8) 4.63 3.6-5.1 [facility] CenterHemoglobin2019-04-11 04:58:00* Test Item Value Reference Range Interpretation Comments Hemoglobin (test code = 84892-5) 12.2 12.0-16.0 [facility] CenterHematocrit2019-04-11 04:58:00* Test Item Value Reference Range Interpretation Comments Hematocrit (test code = 4544-3) 38.7 34.2-44.1 [facility] CenterMean Corpuscular Extfuj9434-34-38 04:58:00* Test Item Value Reference Range Interpretation Comments Mean Corpuscular Volume (test code = 787-2) 83.6 81-99 [facility] CenterMean Corpuscular Eckhnzlxwz6507-24-62 04:58:00* Test Item Value Reference Range Interpretation Comments Mean Corpuscular Hemoglobin (test code = 785-6) 26.3 28-32 L [facility] CenterMe Corpuscular Hemoglobin Concent 2018-10-02 04:58:00* Test Item Value Reference Range Interpretation Comments Mean Corpuscular Hemoglobin Concent (test code = 786-4) 31.5 31-35 [facility] CenterRed Cell Distribution Fhztt5375-79-43 04:58:00* Test Item Value Reference Range Interpretation Comments Red Cell Distribution Width (test code = 70174-8) 14.8 11.7 -14.4 H [facility] CenterPlatelet Tsqug8516-88-37 04:58:00* Test Item Value Reference Range Interpretation Comments Platelet Count (test code = 777-3) 394 140-360 H [facility] CenterNeutrophils (%) (Auto)2018-10-02 04:58:00 * Test Item Value Reference Range Interpretation Comments Neutrophils (%) (Auto) (test code = 06921-1) 51.9 38.7-80.0 [facility] CenterLymphocytes (%) (Auto)2018-10-02 04:58:00 * Test Item Value Reference Range Interpretation Comments Lymphocytes (%) (Auto) (test code = 736-9) 37.2 18.0-39.1 [facility] CenterMonocytes (%) (Auto)2018-10-02 04:58:00* Test Item Value Reference Range Interpretation Comments Monocytes (%) (Auto) (test code = 5905-5) 5.8 4.4-11.3 [facility] CenterEosinophils (%) (Auto)2018-10-02 04:58:00 * Test Item Value Reference Range Interpretation Comments Eosinophils (%) (Auto) (test code = 713-8) 3.7 0.0-6.0 [facility] CenterBasophils (%) (Auto)2018-10-02 04:58:00* Test Item Value Reference Range Interpretation Comments Basophils (%) (Auto) (test code = 706-2) 0.9 0.0-1.0 [facility] CenterIM GRANULOCYTES %2018-10-02 04:58:00* Test Item Value Reference Range Interpretation Comments IM GRANULOCYTES % (test code = IM GRANULOCYTES %) 0.5 0.0- 1.0 [facility] CenterNeutrophils # (Auto)2018-10-02 04:58:00* Test Item Value Reference Range Interpretation Comments Neutrophils # (Auto) (test code = 751-8) 5.7 2.1-6.9 [facility] CenterLymphocytes # (Auto)2018-10-02 04:58:00* Test Item Value Reference Range Interpretation Comments Lymphocytes # (Auto) (test code = 23693-2) 4.1 1.0-3.2 H [facility] CenterMonocytes # (Auto)2018-10-02 04:58:00* Test Item Value Reference Range Interpretation Comments Monocytes # (Auto) (test code = 742-7) 0.6 0.2-0.8 [facility] CenterEosinophils # (Auto)2018-10-02 04:58:00* Test Item Value Reference Range Interpretation Comments Eosinophils # (Auto) (test code = 711-2) 0.4 0.0-0.4 [facility] CenterBasophils # (Auto)2018-10-02 04:58:00* Test Item Value Reference Range Interpretation Comments Basophils # (Auto) (test code = 704-7) 0.1 0.0-0.1 [facility] CenterAbsolute Immature Granulocyte (auto 2018-10-02 04:58:00* Test Item Value Reference Range Interpretation Comments Absolute Immature Granulocyte (auto (jake t code = Absolute Immature Granulocyte (auto) 0.06 0-0.1 [facility] CenterWhite Blood Wdldw7941-40-86 04:58:00* Test Item Value Reference Range Interpretation Comments White Blood Count (test code = 6690-2) 11.01 4.8-10.8 H [facility] CenterRed Blood Vwkdm7296-51-93 04:58:00* Test Item Value Reference Range Interpretation Comments Red Blood Count (test code = 789-8) 4.63 3.6-5.1 [facility] CenterHemoglobin2019-04-11 04:58:00* Test Item Value Reference Range Interpretation Comments Hemoglobin (test code = 32150-7) 12.2 12.0-16.0 [facility] CenterHematocrit2019-04-11 04:58:00* Test Item Value Reference Range Interpretation Comments Hematocrit (test code = 4544-3) 38.7 34.2-44.1 [facility] CenterMean Corpuscular Xunmxs3884-59-60 04:58:00* Test Item Value Reference Range Interpretation Comments Mean Corpuscular Volume (test code = 787-2) 83.6 81-99 [facility] CenterMean Corpuscular Zzjkmvdqzi9695-45-27 04:58:00* Test Item Value Reference Range Interpretation Comments Mean Corpuscular Hemoglobin (test code = 785-6) 26.3 28-32 L [facility] Corpuscular Hemoglobin Concent 2018-10-02 04:58:00* Test Item Value Reference Range Interpretation Comments Mean Corpuscular Hemoglobin Concent (test code = 786-4) 31.5 31-35 [facility] CenterRed Cell Distribution Whrkv6422-27-24 04:58:00* Test Item Value Reference Range Interpretation Comments Red Cell Distribution Width (test code = 94255-6) 14.8 11.7 -14.4 H [facility] CenterPlatelet Iohwh2404-55-21 04:58:00* Test Item Value Reference Range Interpretation Comments Platelet Count (test code = 777-3) 394 140-360 H [facility] CenterNeutrophils (%) (Auto)2018-10-02 04:58:00 * Test Item Value Reference Range Interpretation Comments Neutrophils (%) (Auto) (test code = 48988-6) 51.9 38.7-80.0 [facility] CenterLymphocytes (%) (Auto)2018-10-02 04:58:00 * Test Item Value Reference Range Interpretation Comments Lymphocytes (%) (Auto) (test code = 736-9) 37.2 18.0-39.1 [facility] CenterMonocytes (%) (Auto)2018-10-02 04:58:00* Test Item Value Reference Range Interpretation Comments Monocytes (%) (Auto) (test code = 5905-5) 5.8 4.4-11.3 [facility] CenterEosinophils (%) (Auto)2018-10-02 04:58:00 * Test Item Value Reference Range Interpretation Comments Eosinophils (%) (Auto) (test code = 713-8) 3.7 0.0-6.0 [facility] CenterBasophils (%) (Auto)2018-10-02 04:58:00* Test Item Value Reference Range Interpretation Comments Basophils (%) (Auto) (test code = 706-2) 0.9 0.0-1.0 [facility] CenterIM GRANULOCYTES %2018-10-02 04:58:00* Test Item Value Reference Range Interpretation Comments IM GRANULOCYTES % (test code = IM GRANULOCYTES %) 0.5 0.0- 1.0 [facility] CenterNeutrophils # (Auto)2018-10-02 04:58:00* Test Item Value Reference Range Interpretation Comments Neutrophils # (Auto) (test code = 751-8) 5.7 2.1-6.9 [facility] CenterLymphocytes # (Auto)2018-10-02 04:58:00* Test Item Value Reference Range Interpretation Comments Lymphocytes # (Auto) (test code = 76317-2) 4.1 1.0-3.2 H [facility] CenterMonocytes # (Auto)2018-10-02 04:58:00* Test Item Value Reference Range Interpretation Comments Monocytes # (Auto) (test code = 742-7) 0.6 0.2-0.8 [facility] CenterEosinophils # (Auto)2018-10-02 04:58:00* Test Item Value Reference Range Interpretation Comments Eosinophils # (Auto) (test code = 711-2) 0.4 0.0-0.4 [facility] CenterBasophils # (Auto)2018-10-02 04:58:00* Test Item Value Reference Range Interpretation Comments Basophils # (Auto) (test code = 704-7) 0.1 0.0-0.1 [facility] CenterAbsolute Immature Granulocyte (auto 2018-10-02 04:58:00* Test Item Value Reference Range Interpretation Comments Absolute Immature Granulocyte (auto (jake t code = Absolute Immature Granulocyte (auto) 0.06 0-0.1 [facility] CenterCreatine Kinase IB0328-46-39 16:45:00* Test Item Value Reference Range Interpretation Comments Creatine Kinase MB (test code = 00845-6) 1.30 0-5.0 [place] 05240019-04-10 16:45:00* Test Item Value Reference Range Interpretation Comments Troponin I (test code = KZM7667) 0.021 0-0.300 [facility] CenterCreatine Kinase CT9472-31-42 16:45:00* Test Item Value Reference Range Interpretation Comments Creatine Kinase MB (test code = 74540-0) 1.30 0-5.0 [place] 05240019-04-10 16:45:00* Test Item Value Reference Range Interpretation Comments Troponin I (test code = FJK4246) 0.021 0-0.300 [facility] CenterCreatine Kinase UH8298-27-00 16:45:00* Test Item Value Reference Range Interpretation Comments Creatine Kinase MB (test code = 22380-0) 1.30 0-5.0 [place] 05240019-04-10 16:45:00* Test Item Value Reference Range Interpretation Comments Troponin I (test code = NTQ2564) 0.021 0-0.300 [facility] CenterCreatine Hzzses8404-84-55 16:39:00* Test Item Value Reference Range Interpretation Comments Creatine Kinase (test code = 2157-6) 113 29-168 [facility] CenterCreatine Itgfcb4161-99-96 16:39:00* Test Item Value Reference Range Interpretation Comments Creatine Kinase (test code = 2157-6) 113 29-168 [facility] CenterCreatine Zngixu1115-48-64 16:39:00* Test Item Value Reference Range Interpretation Comments Creatine Kinase (test code = 2157-6) 113 29-725 [facility] CenterMRI SPINE CERVICAL TS8965-98-62 14:58:00 [facility] [address] [place] [address] Patient Name: DEO ESCUDERO MR #: [id number] : 1955 Age/Sex: 63/F Req #: [id number] Adm Physician: ZAINA GORDON MD Ordered by: ZAINA GORDON MD Report #: [id number] Location: [facility] Room/Bed: [place] [address] Procedure: [id number] MR I/MRI SPINE CERVICAL WO Exam Date: [...] 3:05 PM Dictated By: BASIM VIRK MD 1503 Transcribed By : SCAR on 10/01/18 1507 COPY TO: ZAINA GORDON MD MRI BRAIN AJ7457-27-35 14:40:00 [place] [address] Patient Name: DEO ESCUDERO MR #: [id number] : 1955 Age/Sex: 63/F Req #: [id number] Adm Physician: ZAINA GORDON MD Ordered by: HOLA MUNOZ M.D. Report #: [id number] Location: [facility] Room/Bed: [place] [address] Procedure: [id number] MRI/MRI BRAIN WO Exam [...] MUNOZ MD RENAL RETROPERITONEAL COMP 2018-10-01 09:25:00 [place] [address] Patient Name: DEO ESCUDERO MR #: [id number] : 1955 Age/Sex: 63/F Req #: [id number] Adm Physician: ZAINA GORDON MD Ordered by: ZAINA GORDON MD Report #: [id number] Location: [facility] Room/Bed: [place] [address] Procedure: [id number] US /US RENAL RETROPERITONEAL COMP Exam Date: [...] 10/01/18925 COPY TO: ZAINA GORDON MD Total Byeqzsccr3199-67-05 09:15:00* Test Item Value Reference Range Interpretation Comments Total Bilirubin (test code = 1975-2) 0.2 0.2-1.2 [facility] CenterAspartate Amino Transf (AST/SGOT) 2018-10-01 09:15:00* Test Item Value Reference Range Interpretation Comments Aspartate Amino Transf (AST/SGOT) (test code = Aspartate Amino Transf (AST/SGOT)) 11 5-34 [facility] CenterAlanine Aminotransferase (ALT/SGPT) 2018-10-01 09:15:00* Test Item Value Reference Range Interpretation Comments Alanine Aminotransferase (ALT/SGPT) (test code = 1742-6) 6 0-55 [facility] CenterTotal Dyperxr8139-60-53 09:15:00* Test Item Value Reference Range Interpretation Comments Total Protein (test code = 2885-2) 5.2 6.5-8.1 L [facility] CenterAlbumin2019-04-10 09:15:00* Test Item Value Reference Range Interpretation Comments Albumin (test code = 1751-7) 1.8 3.5-5.0 L [facility] CenterGlobulin2019-04-10 09:15:00* Test Item Value Reference Range Interpretation Comments Globulin (test code = 80637-3) 3.4 2.3-3.5 [facility] CenterAlbumin/Globulin Hdgou0981-28-01 09:15:00 * Test Item Value Reference Range Interpretation Comments Albumin/Globulin Ratio (test code = 1759-0) 0.5 0.8-2.0 L [facility] CenterAlkaline Ukpwagnkdyz6663-50-87 09:15:00* Test Item Value Reference Range Interpretation Comments Alkaline Phosphatase (test code = 6768-6) 76 40-150 [facility] CenterTotal Elbtehsyj4570-06-29 09:15:00* Test Item Value Reference Range Interpretation Comments Total Bilirubin (test code = 1975-2) 0.2 0.2-1.2 [facility] CenterAspartate Amino Transf (AST/SGOT) 2018-10-01 09:15:00* Test Item Value Reference Range Interpretation Comments Aspartate Amino Transf (AST/SGOT) (test code = Aspartate Amino Transf (AST/SGOT)) 11 5-34 [facility] CenterAlanine Aminotransferase (ALT/SGPT) 2018-10-01 09:15:00* Test Item Value Reference Range Interpretation Comments Alanine Aminotransferase (ALT/SGPT) (test code = 1742-6) 6 0-55 [facility] Jmabbgq7807-01-43 09:15:00* Test Item Value Reference Range Interpretation Comments Total Protein (test code = 2885-2) 5.2 6.5-8.1 L [facility] CenterAlbumin2019-04-10 09:15:00* Test Item Value Reference Range Interpretation Comments Albumin (test code = 1751-7) 1.8 3.5-5.0 L [facility] CenterGlobulin2019-04-10 09:15:00* Test Item Value Reference Range Interpretation Comments Globulin (test code = 39170-5) 3.4 2.3-3.5 [facility] CenterAlbumin/Globulin Qfbvq0864-91-63 09:15:00 * Test Item Value Reference Range Interpretation Comments Albumin/Globulin Ratio (test code = 1759-0) 0.5 0.8-2.0 L [facility] CenterAlkaline Udwbsiyemdu3202-06-34 09:15:00* Test Item Value Reference Range Interpretation Comments Alkaline Phosphatase (test code = 6768-6) 76 40-150 [facility] CenterTotal Apygljsnf7534-11-38 09:15:00* Test Item Value Reference Range Interpretation Comments Total Bilirubin (test code = 1975-2) 0.2 0.2-1.2 [facility] CenterAspartate Amino Transf (AST/SGOT) 2018-10-01 09:15:00* Test Item Value Reference Range Interpretation Comments Aspartate Amino Transf (AST/SGOT) (test code = Aspartate Amino Transf (AST/SGOT)) 11 5-34 [facility] CenterAlanine Aminotransferase (ALT/SGPT) 2018-10-01 09:15:00* Test Item Value Reference Range Interpretation Comments Alanine Aminotransferase (ALT/SGPT) (test code = 1742-6) 6 0-55 [facility] CenterTotal Pllqjkv1680-87-48 09:15:00* Test Item Value Reference Range Interpretation Comments Total Protein (test code = 2885-2) 5.2 6.5-8.1 L [facility] CenterAlbumin2019-04-10 09:15:00* Test Item Value Reference Range Interpretation Comments Albumin (test code = 1751-7) 1.8 3.5-5.0 L [facility] CenterGlobulin2019-04-10 09:15:00* Test Item Value Reference Range Interpretation Comments Globulin (test code = 86663-9) 3.4 2.3-3.5 [facility] CenterAlbumin/Globulin Ysiwz7334-26-70 09:15:00 * Test Item Value Reference Range Interpretation Comments Albumin/Globulin Ratio (test code = 1759-0) 0.5 0.8-2.0 L [facility] CenterAlkaline Odsyomuwnvr6977-20-42 09:15:00* Test Item Value Reference Range Interpretation Comments Alkaline Phosphatase (test code = 6768-6) 76 40-150 [facility] CenterB-Type Natriuretic Hdhvlpc2891-51-12 14:41:00* Test Item Value Reference Range Interpretation Comments B-Type Natriuretic Peptide (test code = 00297-4) 47.7 0-100 [facility] CenterThyroid Stimulating Hormone (TSH) 2018-09-30 14:41:00* Test Item Value Reference Range Interpretation Comments Thyroid Stimulating Hormone (TSH) (test code = 22550-5) 3.276 0.350-4.940 [facility] CenterB-Type Natriuretic Qoropbq9842-48-17 14:41:00* Test Item Value Reference Range Interpretation Comments B-Type Natriuretic Peptide (test code = 34477-9) 47.7 0-100 [facility] CenterThyroid Stimulating Hormone (TSH) 2018-09-30 14:41:00* Test Item Value Reference Range Interpretation Comments Thyroid Stimulating Hormone (TSH) (test code = 33899-4) 3.276 0.350-4.940 [facility] CenterB-Type Natriuretic Artxamp5720-35-70 14:41:00* Test Item Value Reference Range Interpretation Comments B-Type Natriuretic Peptide (test code = 67375-8) 47.7 0-100 [facility] CenterThyroid Stimulating Hormone (TSH) 2018-09-30 14:41:00* Test Item Value Reference Range Interpretation Comments Thyroid Stimulating Hormone (TSH) (test code = 21870-8) 3.276 0.350-4.940 [facility] CenterB-Type Natriuretic Yrelibf7069-74-37 14:41:00* Test Item Value Reference Range Interpretation Comments B-Type Natriuretic Peptide (test code = 46678-9) 47.7 0-100 [facility] CenterThyroid Stimulating Hormone (TSH) 2018-09-30 14:41:00* Test Item Value Reference Range Interpretation Comments Thyroid Stimulating Hormone (TSH) (test code = 51106-9) 3.276 0.350-4.940 [facility] CenterB-Type Natriuretic Udheobx9917-32-24 14:41:00* Test Item Value Reference Range Interpretation Comments B-Type Natriuretic Peptide (test code = 88401-3) 47.7 0-100 [facility] CenterThyroid Stimulating Hormone (TSH) 2018-09-30 14:41:00* Test Item Value Reference Range Interpretation Comments Thyroid Stimulating Hormone (TSH) (test code = 06466-7) 3.276 0.350-4.940 [facility] CenterB-Type Natriuretic Amfwode1256-78-47 14:41:00* Test Item Value Reference Range Interpretation Comments B-Type Natriuretic Peptide (test code = 41389-6) 47.7 0-100 [facility] CenterThyroid Stimulating Hormone (TSH) 2018-09-30 14:41:00* Test Item Value Reference Range Interpretation Comments Thyroid Stimulating Hormone (TSH) (test code = 90534-7) 3.276 0.350-4.940 [facility] CenterActivated Partial Thromboplast Time 2018-09-30 14:08:00* Test Item Value Reference Range Interpretation Comments Activated Partial Thromboplast Time (test code = 07098-8) 29.7 23.8-35.5 [facility] CenterActivated Partial Thromboplast Time 2018-09-30 14:08:00* Test Item Value Reference Range Interpretation Comments Activated Partial Thromboplast Time (test code = 52967-0) 29.7 23.8-35.5 [facility] CenterActivated Partial Thromboplast Time 2018-09-30 14:08:00* Test Item Value Reference Range Interpretation Comments Activated Partial Thromboplast Time (test code = 16899-6) 29.7 23.8-35.5 [facility] CenterProthrombin Vhoh2916-90-30 14:07:00* Test Item Value Reference Range Interpretation Comments Prothrombin Time (test code = 5902-2) 12.0 11.9-14.5 [facility] CenterProthromb Time International Ratio 2018-09-30 14:07:00* Test Item Value Reference Range Interpretation Comments Prothromb Time International Ratio (test code = 6301-6) 0.84 Oral Anticoagulant Therapy INR Values:1. Low Intensity Therapy 1.5 - 2.02 . Moderate Intensity Therapy 2.0 - 3.03. High Intensity Therapy(1) 2.5 - 3. 54. High Intensity Therapy(2) 3.0 - 4.05. Panic Value INR > 5.0 [facility] CenterProthrombin Zowq6837-21-75 14:07:00* Test Item Value Reference Range Interpretation Comments Prothrombin Time (test code = 5902-2) 12.0 11.9-14.5 [facility] CenterProthromb Time International Ratio 2018-09-30 14:07:00* Test Item Value Reference Range Interpretation Comments Prothromb Time International Ratio (test code = 6301-6) 0.84 Oral Anticoagulant Therapy INR Values:1. Low Intensity Therapy 1.5 - 2.02 . Moderate Intensity Therapy 2.0 - 3.03. High Intensity Therapy(1) 2.5 - 3. 54. High Intensity Therapy(2) 3.0 - 4.05. Panic Value INR > 5.0 [facility] CenterProthrombin Djhw6092-38-12 14:07:00* Test Item Value Reference Range Interpretation Comments Prothrombin Time (test code = 5902-2) 12.0 11.9-14.5 [facility] CenterProthromb Time International Ratio 2018-09-30 14:07:00* Test Item Value Reference Range Interpretation Comments Prothromb Time International Ratio (test code = 6301-6) 0.84 Oral Anticoagulant Therapy INR Values:1. Low Intensity Therapy 1.5 - 2.02 . Moderate Intensity Therapy 2.0 - 3.03. High Intensity Therapy(1) 2.5 - 3. 54. High Intensity Therapy(2) 3.0 - 4.05. Panic Value INR > 5.0 [facility] CenterCHEST SINGLE (NOT PORTABLE)2018-09-30 13:20:00 [facility] [facility] [address] [address] Patient Name: DEO ESCUDERO MR #: [id number] : 1955 Age/Sex: 63/F Req #: [id number] Adm Physician: Ordered by: EHSAN RIVERA CONFIGURATION SPECIALIST Report #: [id number] Location: ER Room/Bed: Procedure: [id number] DX/ CHEST SINGLE (NOT PORTABLE) Exam Date: [...] SCAR on 1322 COPY TO: EHSAN RIVERA CONFIGURATION SPECIALIST CT BRAIN CG4222-64-91 12:43:[address] [address] Patient Name: DEO ESCUDERO MR #: [id number] : 1955 Age/Sex: 63/F Req #: [id number] Adm Physician: Ordered by: EHSAN RIVERA CONFIGURATION SPECIALIST Report #: [id number] Location: ER Room/Bed: Procedure: [id number] CT/ CT BRAIN WO Exam Date: 09/30/18 [...] on 09/30/18 1252 COPY TO: EHSAN RIVERA CONFIGURATION SPECIALIST Bedside Glucose 2018-07-18 08:13:00* Test Item Value Reference Range Interpretation Comments Bedside Glucose (test code = 51318-8) 113 70-120 Meter ID: [id number] [facility] 2018-07-18 08:13:00* Test Item Value Reference Range Interpretation Comments Bedside Glucose (test code = 29871-3) 113 70-120 Meter ID: [id number] [facility] 2018-07-15 06:34:00* Test Item Value Reference Range Interpretation Comments Magnesium Level (test code = 34006-7) 2.3 1.3-2.1 H [facility]2019-01-22 06:34:00* Test Item Value Reference Range Interpretation Comments Magnesium Level (test code = 71477-8) 2.3 1.3-2.1 H [facility]2019-01-22 06:34:00* Test Item Value Reference Range Interpretation Comments Magnesium Level (test code = 97597-7) 2.3 1.3-2.1 H [facility]2019-01-22 06:34:00* Test Item Value Reference Range Interpretation Comments Magnesium Level (test code = 95165-2) 2.3 1.3-2.1 H [facility]2019-01-22 06:34:00* Test Item Value Reference Range Interpretation Comments Magnesium Level (test code = 10039-3) 2.3 1.3-2.1 H [facility]2019-01-22 06:34:00* Test Item Value Reference Range Interpretation Comments Magnesium Level (test code = 18870-0) 2.3 1.3-2.1 H [facility] Flmip5941-91-07 06:34:00* Test Item Value Reference Range Interpretation Comments Magnesium Level (test code = 57458-8) 2.3 1.3-2.1 H [facility] Xejfc6484-50-28 05:06:00* Test Item Value Reference Range Interpretation Comments Sodium Level (test code = 2951-2) 136 136-145 [facility] CenterPotassium Swvnn6231-31-10 05:06:00* Test Item Value Reference Range Interpretation Comments Potassium Level (test code = 2823-3) 3.5 3.5-5.1 [facility] CenterChloride Qcklb4939-94-59 05:06:00* Test Item Value Reference Range Interpretation Comments Chloride Level (test code = 2075-0) 112 98-107 H [facility] CenterCarbon Dioxide Vbmks7393-35-86 05:06:00* Test Item Value Reference Range Interpretation Comments Carbon Dioxide Level (test code = 2028-9) 18 22-29 L [facility] CenterAnion Dry0212-44-17 05:06:00* Test Item Value Reference Range Interpretation Comments Anion Gap (test code = 79008-4) 9.5 8-16 [facility] CenterBlood Urea Xwkhjymc0843-87-28 05:06:00* Test Item Value Reference Range Interpretation Comments Blood Urea Nitrogen (test code = 3094-0) 17 7-26 [facility] CenterCreatinine2019-01-22 05:06:00* Test Item Value Reference Range Interpretation Comments Creatinine (test code = 2160-0) 1.26 0.57-1.11 H [facility] CenterBUN/Creatinine Hegjj4962-12-18 05:06:00* Test Item Value Reference Range Interpretation Comments BUN/Creatinine Ratio (test code = 3097-3) 13 6-25 [facility] CenterEstimat Glomerular Filtration Rate 2018-07-15 05:06:00* Test Item Value Reference Range Interpretation Comments Estimat Glomerular Filtration Rate (test code = 851535501) 43 >60 L Ranges were taken from the National Kidney Disease Education Program and the formerly [facility] Kidney Foundation literature.Reference ranges:60 or greater: Gcrygk20-49 ( for 3 consecutive months): Chronic kidney disease 15 or less: Kidney failureMethodist Dallas Medical CenterGlucose Wetme5858-52-88 05:06:00* Test Item Value Reference Range Interpretation Comments Glucose Level (test code = QVJ7242) 94 74-118 [facility] CenterCalcium Hlyxx1920-11-56 05:06:00* Test Item Value Reference Range Interpretation Comments Calcium Level (test code = 34128-4) 7.7 8.4-10.2 L [facility]ressodium Hljfg4422-47-71 05:06:00* Test Item Value Reference Range Interpretation Comments Sodium Level (test code = 2951-2) 136 136-145 [facility] CenterPotassium Krlxj5941-46-83 05:06:00* Test Item Value Reference Range Interpretation Comments Potassium Level (test code = 2823-3) 3.5 3.5-5.1 [facility] CenterChloride Dwprv2433-61-13 05:06:00* Test Item Value Reference Range Interpretation Comments Chloride Level (test code = 2075-0) 112 98-107 H [facility] CenterCarbon Dioxide Qigor1741-16-53 05:06:00* Test Item Value Reference Range Interpretation Comments Carbon Dioxide Level (test code = 2028-9) 18 22-29 L [facility] CenterAnion Avp9651-21-90 05:06:00* Test Item Value Reference Range Interpretation Comments Anion Gap (test code = 79764-4) 9.5 8-16 [facility] CenterBlood Urea Tlgztjkz5500-75-59 05:06:00* Test Item Value Reference Range Interpretation Comments Blood Urea Nitrogen (test code = 3094-0) 17 7-26 [facility] CenterCreatinine2019-01-22 05:06:00* Test Item Value Reference Range Interpretation Comments Creatinine (test code = 2160-0) 1.26 0.57-1.11 H [facility] CenterBUN/Creatinine Bhuru9388-27-45 05:06:00* Test Item Value Reference Range Interpretation Comments BUN/Creatinine Ratio (test code = 3097-3) 13 6-25 [facility] CenterEstimat Glomerular Filtration Rate 2018-07-15 05:06:00* Test Item Value Reference Range Interpretation Comments Estimat Glomerular Filtration Rate (test code = 888693460) 43 >60 L Ranges were taken from the National Kidney Disease Education Program and the formerly [facility] Kidney Foundation literature.Reference ranges:60 or greater: Kfaefi33-89 ( for 3 consecutive months): Chronic kidney disease 15 or less: Kidney failureMethodist Dallas Medical CenterGlucose Xlcnc0676-25-88 05:06:00* Test Item Value Reference Range Interpretation Comments Glucose Level (test code = QEL2838) 94 74-118 [facility] CenterCalcium Ltqdx8633-61-66 05:06:00* Test Item Value Reference Range Interpretation Comments Calcium Level (test code = 12510-6) 7.7 8.4-10.2 L [facility] CenterWhite Blood Hudpa5313-77-07 04:48:00* Test Item Value Reference Range Interpretation Comments White Blood Count (test code = 6690-2) 11.64 4.8-10.8 H [facility] CenterRed Blood Frabj0235-82-63 04:48:00* Test Item Value Reference Range Interpretation Comments Red Blood Count (test code = 789-8) 5.11 3.6-5.1 H [facility] CenterHemoglobin2019-01-22 04:48:00* Test Item Value Reference Range Interpretation Comments Hemoglobin (test code = 30531-5) 13.6 12.0-16.0 [facility] CenterHematocrit2019-01-22 04:48:00* Test Item Value Reference Range Interpretation Comments Hematocrit (test code = 4544-3) 41.2 34.2-44.1 [facility] CenterMean Corpuscular Xnhgaf0592-13-72 04:48:00* Test Item Value Reference Range Interpretation Comments Mean Corpuscular Volume (test code = 787-2) 80.6 81-99 L [facility] CenterMean Corpuscular Zaupljlkck8052-69-83 04:48:00* Test Item Value Reference Range Interpretation Comments Mean Corpuscular Hemoglobin (test code = 785-6) 26.6 28-32 L [facility] CenterMean Corpuscular Hemoglobin Concent 2018-07-15 04:48:00* Test Item Value Reference Range Interpretation Comments Mean Corpuscular Hemoglobin Concent (test code = 786-4) 33.0 31-35 [facility] CenterRed Cell Distribution Vfgmn0257-57-02 04:48:00* Test Item Value Reference Range Interpretation Comments Red Cell Distribution Width (test code = 38248-6) 13.7 11.7 -14.4 [facility] CenterPlatelet Obheo9275-89-42 04:48:00* Test Item Value Reference Range Interpretation Comments Platelet Count (test code = 777-3) 395 140-360 H [facility] CenterNeutrophils (%) (Auto)2018-07-15 04:48:00 * Test Item Value Reference Range Interpretation Comments Neutrophils (%) (Auto) (test code = 89631-7) 60.0 38.7-80.0 [facility] CenterLymphocytes (%) (Auto)2018-07-15 04:48:00 * Test Item Value Reference Range Interpretation Comments Lymphocytes (%) (Auto) (test code = 736-9) 28.4 18.0-39.1 [facility] CenterMonocytes (%) (Auto)2018-07-15 04:48:00* Test Item Value Reference Range Interpretation Comments Monocytes (%) (Auto) (test code = 5905-5) 4.9 4.4-11.3 [facility] CenterEosinophils (%) (Auto)2018-07-15 04:48:00 * Test Item Value Reference Range Interpretation Comments Eosinophils (%) (Auto) (test code = 713-8) 5.2 0.0-6.0 [facility] CenterBasophils (%) (Auto)2018-07-15 04:48:00* Test Item Value Reference Range Interpretation Comments Basophils (%) (Auto) (test code = 706-2) 1.1 0.0-1.0 H [facility] CenterIM GRANULOCYTES %2018-07-15 04:48:00* Test Item Value Reference Range Interpretation Comments IM GRANULOCYTES % (test code = IM GRANULOCYTES %) 0.4 0.0- 1.0 [facility] CenterNeutrophils # (Auto)2018-07-15 04:48:00* Test Item Value Reference Range Interpretation Comments Neutrophils # (Auto) (test code = 751-8) 7.0 2.1-6.9 H [facility] CenterLymphocytes # (Auto)2018-07-15 04:48:00* Test Item Value Reference Range Interpretation Comments Lymphocytes # (Auto) (test code = 96487-9) 3.3 1.0-3.2 H [facility] CenterMonocytes # (Auto)2018-07-15 04:48:00* Test Item Value Reference Range Interpretation Comments Monocytes # (Auto) (test code = 742-7) 0.6 0.2-0.8 [facility] CenterEosinophils # (Auto)2018-07-15 04:48:00* Test Item Value Reference Range Interpretation Comments Eosinophils # (Auto) (test code = 711-2) 0.6 0.0-0.4 H [facility] CenterBasophils # (Auto)2018-07-15 04:48:00* Test Item Value Reference Range Interpretation Comments Basophils # (Auto) (test code = 704-7) 0.1 0.0-0.1 [facility] CenterAbsolute Immature Granulocyte (auto 2018-07-15 04:48:00* Test Item Value Reference Range Interpretation Comments Absolute Immature Granulocyte (auto (jake t code = Absolute Immature Granulocyte (auto) 0.05 0-0.1 [facility] CenterWhite Blood Pgema3615-90-73 04:48:00* Test Item Value Reference Range Interpretation Comments White Blood Count (test code = 6690-2) 11.64 4.8-10.8 H [facility] CenterRed Blood Iminl0457-73-99 04:48:00* Test Item Value Reference Range Interpretation Comments Red Blood Count (test code = 789-8) 5.11 3.6-5.1 H [facility] CenterHemoglobin2019-01-22 04:48:00* Test Item Value Reference Range Interpretation Comments Hemoglobin (test code = 06518-5) 13.6 12.0-16.0 [facility] CenterHematocrit2019-01-22 04:48:00* Test Item Value Reference Range Interpretation Comments Hematocrit (test code = 4544-3) 41.2 34.2-44.1 [facility] CenterMean Corpuscular Djrrso9453-89-78 04:48:00* Test Item Value Reference Range Interpretation Comments Mean Corpuscular Volume (test code = 787-2) 80.6 81-99 L [facility] CenterMean Corpuscular Ecpefuakqe9740-38-03 04:48:00* Test Item Value Reference Range Interpretation Comments Mean Corpuscular Hemoglobin (test code = 785-6) 26.6 28-32 L [facility] CenterMean Corpuscular Hemoglobin Concent 2018-07-15 04:48:00* Test Item Value Reference Range Interpretation Comments Mean Corpuscular Hemoglobin Concent (test code = 786-4) 33.0 31-35 [facility] CenterRed Cell Distribution Cjooo2625-59-23 04:48:00* Test Item Value Reference Range Interpretation Comments Red Cell Distribution Width (test code = 45432-8) 13.7 11.7 -14.4 [facility] CenterPlatelet Vjajd2401-93-11 04:48:00* Test Item Value Reference Range Interpretation Comments Platelet Count (test code = 777-3) 395 140-360 H [facility] CenterNeutrophils (%) (Auto)2018-07-15 04:48:00 * Test Item Value Reference Range Interpretation Comments Neutrophils (%) (Auto) (test code = 90838-9) 60.0 38.7-80.0 [facility] CenterLymphocytes (%) (Auto)2018-07-15 04:48:00 * Test Item Value Reference Range Interpretation Comments Lymphocytes (%) (Auto) (test code = 736-9) 28.4 18.0-39.1 [facility] CenterMonocytes (%) (Auto)2018-07-15 04:48:00* Test Item Value Reference Range Interpretation Comments Monocytes (%) (Auto) (test code = 5905-5) 4.9 4.4-11.3 [facility] CenterEosinophils (%) (Auto)2018-07-15 04:48:00 * Test Item Value Reference Range Interpretation Comments Eosinophils (%) (Auto) (test code = 713-8) 5.2 0.0-6.0 [facility] CenterBasophils (%) (Auto)2018-07-15 04:48:00* Test Item Value Reference Range Interpretation Comments Basophils (%) (Auto) (test code = 706-2) 1.1 0.0-1.0 H [facility] CenterIM GRANULOCYTES %2018-07-15 04:48:00* Test Item Value Reference Range Interpretation Comments IM GRANULOCYTES % (test code = IM GRANULOCYTES %) 0.4 0.0- 1.0 [facility] CenterNeutrophils # (Auto)2018-07-15 04:48:00* Test Item Value Reference Range Interpretation Comments Neutrophils # (Auto) (test code = 751-8) 7.0 2.1-6.9 H [facility] CenterLymphocytes # (Auto)2018-07-15 04:48:00* Test Item Value Reference Range Interpretation Comments Lymphocytes # (Auto) (test code = 02080-2) 3.3 1.0-3.2 H [facility] CenterMonocytes # (Auto)2018-07-15 04:48:00* Test Item Value Reference Range Interpretation Comments Monocytes # (Auto) (test code = 742-7) 0.6 0.2-0.8 [facility] CenterEosinophils # (Auto)2018-07-15 04:48:00* Test Item Value Reference Range Interpretation Comments Eosinophils # (Auto) (test code = 711-2) 0.6 0.0-0.4 H [facility] CenterBasophils # (Auto)2018-07-15 04:48:00* Test Item Value Reference Range Interpretation Comments Basophils # (Auto) (test code = 704-7) 0.1 0.0-0.1 [facility] CenterAbsolute Immature Granulocyte (auto 2018-07-15 04:48:00* Test Item Value Reference Range Interpretation Comments Absolute Immature Granulocyte (auto (jake t code = Absolute Immature Granulocyte (auto) 0.05 0-0.1 [facility] CenterMODIFIED BA. EEYKSUK3640-13-80 14:34:00 [facility] [address] [address] Patient Name: DEO ESCUDERO MR #: [id number] : 1955 Age/Sex: 63/F Req #: [id number] Adm Physician: ZAINA GORDON MD Ordered by: ZAINA GORDON MD Report #: [id number] Location: ICU Room/Bed: ICU [facility] Procedure: [id number] DX /MODIFIED BA. SWALLOW Exam Date: 07/14/18 [...] COPY TO: ZAINA GORDON MD MRA HEAD FA1704-13-81 13:17:00 [address] [address] Patient Name: DEO ESCUDERO MR #: [id number] : 1955 Age/Sex: 63/F Req #: [id number] Adm Physician: ZAINA GORDON MD Ordered by: ZAINA GORDON MD Report #: [id number] Location: ICU Room/Bed: [address] [address] Procedure: [id number] MR I/MRA HEAD WO Exam Date: Exam Time: REPORT STATUS: Signed MRA NECK WO, MRA HEAD WO HISTORY: Weakness, right-sided facial droop COMPARISON: Concurrent MRI of the brain TECHNIQUE: Axial 2D cervical, and axial 3D intracranial idrs-fm-kgiyrj MRA images were obtained without contrast. Maximum intensity pr ojection and coronal/sagittal reformatted images were created. If present, an y cervical carotid stenosis will be measured as a percentage relative to the n ative artery distal to the stenosis. Intracranial MRA source axial images and MIPS were reviewed on [employer] system. FINDINGS: CERVICAL MRA: Motion and noise [...] on 1324 COPY TO: ZAINA GORDON MD MRA NECK QX8128-02-08 13:17:[address] [address] Patient Name: DEO ESCUDERO MR #: [id number] : 1955 Age/Sex: 63/F Req #: [id number] Adm Physician: ZAINA GORDON MD Ordered by: ZAINA GORDON MD Report #: [id number] Location: ICU Room/Bed: [address] [address] Procedure: [id number] MR I/MRA NECK WO Exam Date: Exam Time: REPORT STATUS: Signed MRA NECK WO, MRA HEAD WO HISTORY: Weakness, right-sided facial droop COMPARISON: Concurrent MRI of the brain TECHNIQUE: Axial 2D cervical, and axial 3D intracranial unjy-pl-lmrxho MRA images were obtained without contrast. Maximum intensity pr ojection and coronal/sagittal reformatted images were created. If present, an y cervical carotid stenosis will be measured as a percentage relative to the n ative artery distal to the stenosis. Intracranial MRA source axial images and MIPS were reviewed on [employer] system. FINDINGS: CERVICAL MRA: Motion and noise [...] COPY TO: ZAINA GORDON MD MRI BRAIN IC1830-81-32 13:07:00 [address] [address] Patient Name: DEO ESCUDERO MR #: [id number] : 1955 Age/Sex: 63/F Req #: [id number] Adm Physician: ZAINA GORDON MD Ordered by: HOLA MUNOZ M.D. Report #: [id number] Location: ICU Room/Bed: ICU [facility] Procedure: [id number] MRI/MRI BRAIN WO [...] striatocapsular region. 2. 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 3. 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 Signed by: Dr. Spencer Sanches M.D. on 07/14/2018 1:17 PM Dictated By: SPENCER SANCHES MD 1317 Transcribed By: SCAR on 07/14/18 1317 COPY TO: HOLA ROSAS MD Thyroid Stimulating Hormone (TSH)2018-07-14 05:43:00 * Test Item Value Reference Range Interpretation Comments Thyroid Stimulating Hormone (TSH) (test code = 27811-9) 3.263 0.350-4.940 [facility] CenterThyroid Stimulating Hormone (TSH) 2018-07-14 05:43:00* Test Item Value Reference Range Interpretation Comments Thyroid Stimulating Hormone (TSH) (test code = 28075-0) 3.263 0.350-4.940 [facility] CenterTotal Celyuqvml6759-16-39 05:29:00* Test Item Value Reference Range Interpretation Comments Total Bilirubin (test code = 1975-2) 0.5 0.2-1.2 [facility] CenterAspartate Amino Transf (AST/SGOT) 2018-07-14 05:29:00* Test Item Value Reference Range Interpretation Comments Aspartate Amino Transf (AST/SGOT) (test code = Aspartate Amino Transf (AST/SGOT)) 10 5-34 [facility] CenterAlanine Aminotransferase (ALT/SGPT) 2018-07-14 05:29:00* Test Item Value Reference Range Interpretation Comments Alanine Aminotransferase (ALT/SGPT) (test code = 1742-6) 8 0-55 [facility] CenterTotal Pntseud5865-84-71 05:29:00* Test Item Value Reference Range Interpretation Comments Total Protein (test code = 2885-2) 4.5 6.5-8.1 L [facility] CenterAlbumin2019-01-21 05:29:00* Test Item Value Reference Range Interpretation Comments Albumin (test code = 1751-7) 1.4 3.5-5.0 L [facility] CenterGlobulin2019-01-21 05:29:00* Test Item Value Reference Range Interpretation Comments Globulin (test code = 68393-5) 3.1 2.3-3.5 [facility] CenterAlbumin/Globulin Eblag8583-79-62 05:29:00 * Test Item Value Reference Range Interpretation Comments Albumin/Globulin Ratio (test code = 1759-0) 0.5 0.8-2.0 L [facility] CenterAlkaline Zuufiqwglpg6903-74-78 05:29:00* Test Item Value Reference Range Interpretation Comments Alkaline Phosphatase (test code = 6768-6) 55 40-150 [facility] CenterTriglycerides Yldst4232-86-39 05:29:00* Test Item Value Reference Range Interpretation Comments Triglycerides Level (test code = 2571-8) 257 0-149 H [facility] CenterCholesterol Mmfig2279-48-95 05:29:00* Test Item Value Reference Range Interpretation Comments Cholesterol Level (test code = 2093-3) 344 0-199 H Less than 200 mg/dL Low Xchr889 - 239 mg/dL Borderline Xkbc020 m g/dl and greater High Risk [facility] CenterLDL Rfdltmqqjfi5017-92-10 05:29:00* Test Item Value Reference Range Interpretation Comments LDL Cholesterol (test code = 2089-1) 259 60-130 H [facility] CenterHDL Xppsklatisk5459-28-06 05:29:00* Test Item Value Reference Range Interpretation Comments HDL Cholesterol (test code = 2085-9) 34 40-60 L [facility] CenterCholesterol/HDL Zlxly7344-20-66 05:29:00 * Test Item Value Reference Range Interpretation Comments Cholesterol/HDL Ratio (test code = 9830-1) 10.1 3.0-3.6 H [facility] CenterTotal Wthdkdpjx1838-99-25 05:29:00* Test Item Value Reference Range Interpretation Comments Total Bilirubin (test code = 1975-2) 0.5 0.2-1.2 [facility] CenterAspartate Amino Transf (AST/SGOT) 2018-07-14 05:29:00* Test Item Value Reference Range Interpretation Comments Aspartate Amino Transf (AST/SGOT) (test code = Aspartate Amino Transf (AST/SGOT)) 10 5-34 [facility] CenterAlanine Aminotransferase (ALT/SGPT) 2018-07-14 05:29:00* Test Item Value Reference Range Interpretation Comments Alanine Aminotransferase (ALT/SGPT) (test code = 1742-6) 8 0-55 [facility] CenterTotal Gbtbyyf3439-97-71 05:29:00* Test Item Value Reference Range Interpretation Comments Total Protein (test code = 2885-2) 4.5 6.5-8.1 L [facility] CenterAlbumin2019-01-21 05:29:00* Test Item Value Reference Range Interpretation Comments Albumin (test code = 1751-7) 1.4 3.5-5.0 L [facility] CenterGlobulin2019-01-21 05:29:00* Test Item Value Reference Range Interpretation Comments Globulin (test code = 10376-9) 3.1 2.3-3.5 [facility] CenterAlbumin/Globulin Zhtlx0071-88-88 05:29:00 * Test Item Value Reference Range Interpretation Comments Albumin/Globulin Ratio (test code = 1759-0) 0.5 0.8-2.0 L [facility] CenterAlkaline Elgulvtfcfx2557-73-42 05:29:00* Test Item Value Reference Range Interpretation Comments Alkaline Phosphatase (test code = 6768-6) 55 40-150 [facility] CenterTriglycerides Jlolm9873-79-62 05:29:00* Test Item Value Reference Range Interpretation Comments Triglycerides Level (test code = 2571-8) 257 0-149 H [facility] CenterCholesterol Tfzjw2544-78-28 05:29:00* Test Item Value Reference Range Interpretation Comments Cholesterol Level (test code = 2093-3) 344 0-199 H Less than 200 mg/dL Low Hfvm680 - 239 mg/dL Borderline Xnkc648 m g/dl and greater High Risk [facility] CenterLDL Jllhsdqwwhd7397-04-55 05:29:00* Test Item Value Reference Range Interpretation Comments LDL Cholesterol (test code = 2089-1) 259 60-130 H [facility] CenterHDL Fsybuccjdxl3859-09-28 05:29:00* Test Item Value Reference Range Interpretation Comments HDL Cholesterol (test code = 2085-9) 34 40-60 L [facility] CenterCholesterol/HDL Bmwhp7240-30-78 05:29:00 * Test Item Value Reference Range Interpretation Comments Cholesterol/HDL Ratio (test code = 9830-1) 10.1 3.0-3.6 H [facility] CenterTriglycerides Mzxwb3033-96-70 05:29:00* Test Item Value Reference Range Interpretation Comments Triglycerides Level (test code = 2571-8) 257 0-149 H [facility] CenterCholesterol Umnbd4156-74-49 05:29:00* Test Item Value Reference Range Interpretation Comments Cholesterol Level (test code = 2093-3) 344 0-199 H Less than 200 mg/dL Low Eetp785 - 239 mg/dL Borderline Dnbz073 m g/dl and greater High Risk [facility] CenterLDL Qupsgdptiwp3461-45-10 05:29:00* Test Item Value Reference Range Interpretation Comments LDL Cholesterol (test code = 2089-1) 259 60-[address] [facility] Qzkcbeiiuhj4736-83-96 05:29:00* Test Item Value Reference Range Interpretation Comments HDL Cholesterol (test code = 2085-9) 34 40-60 L [facility] CenterCholesterol/HDL Enrfa0433-04-60 05:29:00 * Test Item Value Reference Range Interpretation Comments Cholesterol/HDL Ratio (test code = 9830-1) 10.1 3.0-3.6 H [facility] CenterTriglycerides Ytsbv0001-43-96 05:29:00* Test Item Value Reference Range Interpretation Comments Triglycerides Level (test code = 2571-8) 257 0-149 H [facility] CenterCholesterol Zwxof8431-96-41 05:29:00* Test Item Value Reference Range Interpretation Comments Cholesterol Level (test code = 2093-3) 344 0-199 H Less than 200 mg/dL Low Xgwd093 - 239 mg/dL Borderline Qctc170 m g/dl and greater [facility] CenterLDL Hgflyyzkkpu5326-38-00 05:29:00* Test Item Value Reference Range Interpretation Comments LDL Cholesterol (test code = 2089-1) 259 60-[address] [facility] Qdhxkbhqptn3593-47-36 05:29:00* Test Item Value Reference Range Interpretation Comments HDL Cholesterol (test code = 2085-9) 34 40-60 L [facility]Ch[facility]/HDL Yynbe0250-78-36 05:29:00 * Test Item Value Reference Range Interpretation Comments Cholesterol/HDL Ratio (test code = 9830-1) 10.1 3.0-3.6 H [facility] CenterTriglycerides Ugrwr4849-92-34 05:29:00* Test Item Value Reference Range Interpretation Comments Triglycerides Level (test code = 2571-8) 257 0-149 H [facility] CenterCholesterol Hdkzp2164-97-19 05:29:00* Test Item Value Reference Range Interpretation Comments Cholesterol Level (test code = 2093-3) 344 0-199 H Less than 200 mg/dL Low Lzpu523 - 239 mg/dL Borderline Wzkv511 m g/dl and greater [facility] CenterLDL Ehscdtgjufl5496-66-63 05:29:00* Test Item Value Reference Range Interpretation Comments LDL Cholesterol (test code = 2089-1) 259 60-130 H [facility] CenterHDL Edadpiqbjxm4201-77-50 05:29:00* Test Item Value Reference Range Interpretation Comments HDL Cholesterol (test code = 2085-9) 34 40-60 L [facility]Ch[facility]/HDL Jnamb8996-68-03 05:29:00 * Test Item Value Reference Range Interpretation Comments Cholesterol/HDL Ratio (test code = 9830-1) 10.1 3.0-3.6 H [facility] CenterCT BRAIN JT2916-48-00 17:58:00 [place] [address] Patient Name: DEO ESCUDERO MR #: [id number] : 1955 Age/Sex: 63/F Req #: [id number] Adm Physician: ZAINA GORDON MD Ordered by: HOLA MUNOZ M.D. Report #: [id number] Location: ICU Room/Bed: ICU [facility] Procedure: 0120-[address]/CT BRAIN WO [...] on 07/13/181950 COPY TO: HOLA MUNOZ MD Troponin A4502-05-65 15:22:00* Test Item Value Reference Range Interpretation Comments Troponin I (test code = MGT9053) 0.019 0-0.300 [facility] CenterTroponin P5344-20-30 15:22:00* Test Item Value Reference Range Interpretation Comments Troponin I (test code = PNO5831) 0.019 0-0.300 [facility] CenterCreatine Kinase HB0771-31-02 14:19:00* Test Item Value Reference Range Interpretation Comments Creatine Kinase MB (test code = 36784-8) 1.00 0-5.0 [facility] CenterCreatine Kinase LG2362-05-83 14:19:00* Test Item Value Reference Range Interpretation Comments Creatine Kinase MB (test code = 08343-7) 1.00 0-5.0 [facility] CenterCreatine Txpyfm7572-26-49 14:10:00* Test Item Value Reference Range Interpretation Comments Creatine Kinase (test code = 2157-6) 55 29-168 [facility] CenterCreatine Eljvze2671-67-07 14:10:00* Test Item Value Reference Range Interpretation Comments Creatine Kinase (test code = 2157-6) 55 29-168 [facility] CenterFr Thyroxine Fcotf0269-37-75 08:42:00* Test Item Value Reference Range Interpretation Comments Free Thyroxine Index (test code = 10864-0) 1.9343 1.4-3.8 [facility] CenterThyroxine (T4)2018-07-13 08:42:00* Test Item Value Reference Range Interpretation Comments Thyroxine (T4) (test code = 3026-2) 5.75 4.5-10.9 Our current method for Total T4 is not recommended for use as the only marker fo r evaluating patients for thyroid disorders.[facility] CenterTriiodothyronine (T3) Rezeux1913-81-74 08:42:00* Test Item Value Reference Range Interpretation Comments Triiodothyronine (T3) Uptake (test code = 3050-2) 33.64 22.5 -37.0 [facility] CenterFr Thyroxine Erqzp4849-03-06 08:42:00* Test Item Value Reference Range Interpretation Comments Free Thyroxine Index (test code = 92149-8) 1.9343 1.4-3.8 [facility] CenterThyroxine (T4)2018-07-13 08:42:00* Test Item Value Reference Range Interpretation Comments Thyroxine (T4) (test code = 3026-2) 5.75 4.5-10.9 Our current method for Total T4 is not recommended for use as the only marker fo r evaluating patients for thyroid disorders.[facility] CenterTriiodothyronine (T3) Ipjlcs2431-45-46 08:42:00* Test Item Value Reference Range Interpretation Comments Triiodothyronine (T3) Uptake (test code = 3050-2) 33.64 22.5 -37.0 [facility] Thyroxine Ytdfa9461-92-79 08:42:00* Test Item Value Reference Range Interpretation Comments Free Thyroxine Index (test code = 25947-8) 1.9343 1.4-3.8 [facility] CenterThyroxine (T4)2018-07-13 08:42:00* Test Item Value Reference Range Interpretation Comments Thyroxine (T4) (test code = 3026-2) 5.75 4.5-10.9 Our current method for Total T4 is not recommended for use as the only marker fo r evaluating patients for thyroid disorders.[facility] CenterTriiodothyronine (T3) Smtpdk3021-62-35 08:42:00* Test Item Value Reference Range Interpretation Comments Triiodothyronine (T3) Uptake (test code = 3050-2) 33.64 22.5 -37.0 [facility] Thyroxine Flnqq4327-91-38 08:42:00* Test Item Value Reference Range Interpretation Comments Free Thyroxine Index (test code = 99453-7) 1.9343 1.4-3.8 [facility] CenterThyroxine (T4)2018-07-13 08:42:00* Test Item Value Reference Range Interpretation Comments Thyroxine (T4) (test code = 3026-2) 5.75 4.5-10.9 Our current method for Total T4 is not recommended for use as the only marker fo r evaluating patients for thyroid disorders.[facility] CenterTriiodothyronine (T3) Hrszbl5180-48-38 08:42:00* Test Item Value Reference Range Interpretation Comments Triiodothyronine (T3) Uptake (test code = 3050-2) 33.64 22.5 -37.0 [facility] Thyroxine Prqwj2433-43-15 08:42:00* Test Item Value Reference Range Interpretation Comments Free Thyroxine Index (test code = 94861-0) 1.9343 1.4-3.8 [facility] CenterThyroxine (T4)2018-07-13 08:42:00* Test Item Value Reference Range Interpretation Comments Thyroxine (T4) (test code = 3026-2) 5.75 4.5-10.9 Our current method for Total T4 is not recommended for use as the only marker fo r evaluating patients for thyroid disorders.[facility] CenterTriiodothyronine (T3) Uajvrf8504-66-61 08:42:00* Test Item Value Reference Range Interpretation Comments Triiodothyronine (T3) Uptake (test code = 3050-2) 33.64 22.5 -37.0 [facility] Thyroxine Vzijl0146-60-84 08:42:00* Test Item Value Reference Range Interpretation Comments Free Thyroxine Index (test code = 07118-7) 1.9343 1.4-3.8 [facility] CenterThyroxine (T4)2018-07-13 08:42:00* Test Item Value Reference Range Interpretation Comments Thyroxine (T4) (test code = 3026-2) 5.75 4.5-10.9 Our current method for Total T4 is not recommended for use as the only marker fo r evaluating patients for thyroid disorders.[facility] CenterTriiodothyronine (T3) Niucjq9800-72-97 08:42:00* Test Item Value Reference Range Interpretation Comments Triiodothyronine (T3) Uptake (test code = 3050-2) 33.64 22.5 -37.0 [facility] Thyroxine Zxkbi0397-23-42 08:42:00* Test Item Value Reference Range Interpretation Comments Free Thyroxine Index (test code = 04405-4) 1.9343 1.4-3.8 [facility] CenterThyroxine (T4)2018-07-13 08:42:00* Test Item Value Reference Range Interpretation Comments Thyroxine (T4) (test code = 3026-2) 5.75 4.5-10.9 Our current method for Total T4 is not recommended for use as the only marker fo r evaluating patients for thyroid disorders.[facility] CenterTriiodothyronine (T3) Cwgacv1102-60-07 08:42:00* Test Item Value Reference Range Interpretation Comments Triiodothyronine (T3) Uptake (test code = 3050-2) 33.64 22.5 -37.0 [facility] CenterHemoglobin A1c Ouctrrw3945-51-20 08:18:00 * Test Item Value Reference Range Interpretation Comments Hemoglobin A1c Percent (test code = Hemoglobin A1c Percent) 8.8 4.0-7.0 H [facility] CenterHemoglobin A1c Kuxzbci5829-08-38 08:18:00 * Test Item Value Reference Range Interpretation Comments Hemoglobin A1c Percent (test code = Hemoglobin A1c Percent) 8.8 4.0-7.0 H [facility] CenterHemoglobin A1c Zxrrxiv5681-52-77 08:18:00 * Test Item Value Reference Range Interpretation Comments Hemoglobin A1c Percent (test code = Hemoglobin A1c Percent) 8.8 4.0-7.0 H [facility] CenterHemoglobin A1c Hgbhnvu8747-89-76 08:18:00 * Test Item Value Reference Range Interpretation Comments Hemoglobin A1c Percent (test code = Hemoglobin A1c Percent) 8.8 4.0-7.0 H [facility] CenterHemoglobin A1c Bvoqzbb6017-36-81 08:18:00 * Test Item Value Reference Range Interpretation Comments Hemoglobin A1c Percent (test code = Hemoglobin A1c Percent) 8.8 4.0-7.0 H [facility] CenterProthrombin Ayij5064-28-80 04:59:00* Test Item Value Reference Range Interpretation Comments Prothrombin Time (test code = 5902-2) 13.5 11.9-14.5 [facility] CenterProthromb Time International Ratio 2018-07-13 04:59:00* Test Item Value Reference Range Interpretation Comments Prothromb Time International Ratio (test code = 6301-6) 0.95 Oral Anticoagulant Therapy INR Values:1. Low Intensity Therapy 1.5 - 2.02 . Moderate Intensity Therapy 2.0 - 3.03. High Intensity Therapy(1) 2.5 - 3. 54. High Intensity Therapy(2) 3.0 - 4.05. Panic Value INR > 5.0 [facility] CenterActivated Partial Thromboplast Time 2018-07-13 04:59:00* Test Item Value Reference Range Interpretation Comments Activated Partial Thromboplast Time (test code = 54739-2) 29.4 23.8-35.5 [facility] CenterProthrombin Heim0732-37-26 04:59:00* Test Item Value Reference Range Interpretation Comments Prothrombin Time (test code = 5902-2) 13.5 11.9-14.5 [facility] CenterProthromb Time International Ratio 2018-07-13 04:59:00* Test Item Value Reference Range Interpretation Comments Prothromb Time International Ratio (test code = 6301-6) 0.95 Oral Anticoagulant Therapy INR Values:1. Low Intensity Therapy 1.5 - 2.02 . Moderate Intensity Therapy 2.0 - 3.03. High Intensity Therapy(1) 2.5 - 3. 54. High Intensity Therapy(2) 3.0 - 4.05. Panic Value INR > 5.0 [facility] CenterActivated Partial Thromboplast Time 2018-07-13 04:59:00* Test Item Value Reference Range Interpretation Comments Activated Partial Thromboplast Time (test code = 87079-9) 29.4 23.8-35.5 [facility] CenterB-Type Natriuretic Wqsthlg6312-79-38 16:24:00* Test Item Value Reference Range Interpretation Comments B-Type Natriuretic Peptide (test code = 15676-6) 192.7 0-100 H [facility] CenterB-Type Natriuretic Agktlmo1810-19-02 16:24:00* Test Item Value Reference Range Interpretation Comments B-Type Natriuretic Peptide (test code = 25157-8) 192.7 0-100 H [facility] CenterCHEST SINGLE (PORTABLE)2018-07-12 16:12:00 [place] [address] Patient Name: DEO ESCUDERO MR #: [id number] : 1955 Age/Sex: 63/F Req #: [id number] Adm Physician: Ordered by: EHSAN RIVERA CONFIGURATION SPECIALIST Report #: [id number] Location: ER Room/Bed: Procedure: [id number] DX/ CHEST SINGLE (PORTABLE) Exam Date: 07/12/18 Exam Bobby e: 1555 REPORT STATUS: Signed A single frontal view of the chest. HISTORY: Left arm and leg a sleep COMP ARISON: None available. DISCUSSION: Portable technique, limits sen sitivity of the exam. Overlying monitoring leads. Tubes/Lines: None Harreit ngs and pleura: The lungs are well [...] on 07/12/18 161 COPY TO: EHSAN RIVERA CONFIGURATION SPECIALIST CT BRAIN CE9847-41-31 15:25:00 [place] [address] Patient Name: DEO ESCUDERO MR #: [id number] : 1955 Age/Sex: 63/F Req #: [id number] Adm Physician: Ordered by: JANIE RIVER MD Report #: [id number] Location: ER Room/Bed: Procedure: [id number] CT/ CT BRAIN WO Exam Date: 07/12/18 [...] 1529 COPY TO: FRED RIVER MD CHEM ZVVDS2381-73-60 00:50:0099[facility]CHEM PANEL 2014-03-06 00:50:000.9[facility]annCHEM BOGLX8304-93-99 00:50:0013.0[facility]annCHEM HUEOJ2993-85-16 00:50:0018[facility]annCHEM ARWDA4949-45-52 00:50:0028[facility]annCHEM VIKXC4622-50-33 00:50:0018[facility]annCHEM ZDDRB0460-26-34 00:50:58981Cakoyjcp HermannCHEM EUCSJ6717-06-50 00:50:004.0 [facility]annCHE[facility] WWXEW5650-68-16 00:50:57432Tydultjp HermannCHEM PANEL 2014-03-06 00:50:000.6[facility]annCHEM YDVFE0222-20-59 00:50:76622Zqvfqnrm HermannCHEM XWJJI2633-16-90 00:50:34321Gxaqsxvo HermannCHEM NDIXK9532-32-70 00:50:0011[facility]annCHEM IMRPY1192-80-36 00:50:003.6[facility]annCHEM JDKOV9181-93-11 00:50:008.0[facility]annCHEM UQIYR9170-64-56 00:50:009.1 [facility]annCHEM OSORL6672-26-74 00:50:0025[facility]annCHEM PANEL 2014-03-06 00:50:000.8[facility]annCHEM AGCAF8147-45-41 00:50:004.4[facility] TaqsawkIDLOKMZZMO8364-09-43 00:50:0060.9[facility] TniydtgFSCYMLJBKM3173-16-58 00:50:001.1[facility] XrzscvzEGDKUFVPKR6125-31-80 00:50:001.2[facility] PQCCPWLSZQ6141-45-87 00:50:004.4[facility] TcpsjubMVFLKKEBWW8960-04-75 00:50:00 32.4[facility] TlbscrxJHIQINBFVS2861-91-20 00:50:000.1[facility]annHEMATOLOGY 2014-03-06 00:50:000.5[facility] WfrtyifLREHCWMDDL3244-51-54 00:50:003.5[facility] RlsjygmDTEBMDXHFM7658-06-86 00:50:006.5[facility] PpyawuhIKLOOMHBWF0649-41-72 00:50:000.1[facility] NuxwmxnLFQRLUSZSV3324-35-66 00:50:0013.0[facility] BUJQKLLELU1995-33-72 00:50:0033.4[facility] UzmunjiMZQUXFPHLB4364-66-78 00:50:00* Test Item Value Reference Range Interpretation Comments MCH (test code = MCH) 28.3 pg 27.0-31.0 [facility] FvybictCJBKRHRYBY5102-78-64 00:50:0084.7[facility]annHEMATOLOGY 2014-03-06 00:50:008.7[facility] IuyldnsHCFROLURRC5819-80-78 00:50:91360Oqpvkbih DgepvkjQHCGZACLSU2486-34-89 00:50:0010.7[facility] XrfqwgfEZWOPYNVON1631-71-90 00:50:0049.5[facility] CkgybdyXRTLVLIPXZ1181-16-73 00:50:0016.5[facility] LGTMAIGIUY5164-50-03 00:50:005.84[facility]annURINE AND HYRAJ7510-73-04 05:30:00Small *ABN*(03/05/14 12:30 AM)[facility] WDOAU6240-69-56 05:30:00Negative (03/05/14 12:30 AM)[facility] ISMIY5554-80-03 05:30:00Marked *ABN*(03/05/14 12:30 AM)[facility] ANHHW7963-39-50 05:30:001.032[facility] AND DZZOT5845-29-25 05:30:00Yellow *NA*(03/05/14 12:30 AM)[facility] RRTSW3494-48-02 05:30:99474 [facility] YMRBV1158-05-00 05:30:0015[facility] AND CCNBP3088-99-43 05:30:00Large *ABN*(03/05/14 12:30 AM)[facility] ZXKBF6644-06-28 05:30:00Negative *NA*(03/05/14 12:30 AM)[facility] UJRTY6659-24-64 05:30:005.0[facility] HermannBEDSIDE GLUCOSE GBRIHMW5920-37-83 18:22:71183Xnlnwbjc HermannBEDSIDE GLUCOSE SQMMTSR1775-05-42 17:03:81820Qxhctcme HermannBEDSIDE GLUCOSE OPLOKEL2180-10-71 12:20:40256Ldevrjpv HermannBEDSIDE GLUCOSE WXEDTPU1612-30-20 03:03:51515Bzdjywyj HermannBEDSIDE GLUCOSE TESTING 2011-07-31 22:04:56160Rzcfbzag OemygfmYKHNWQIXM9695-72-73 09:32:00<0.02[facility] KyhnkynQLATBMYKY8451-31-92 09:32:0035[facility] XlrsjziFPFCZWMIW4422-81-52 04:01:0035[facility] AnidvhwTERPZSEHW2527-21-43 04:01:00<0.02[facility] JHPZZICRO1723-90-05 21:00:00<1.1[facility] NaqxvjjNXKNLDRKG9704-87-43 21:00:0045 Memorial GdberhmLYTMDKPCN7029-42-45 21:00:00<0.5[facility] HermannCHEMISTRY 2011-07-27 21:00:00<0.02[facility] RcxeimbJDKAUCOXI1973-60-53 21:00:48748Uviucpyt AynwijiZCSBSIRDS0004-63-55 21:00:0021[facility] AkeruozPFEEOVXTF0694-63-09 21:00:27033Kdntfeip GkvcmgjEIARUDCMR3663-12-23 21:00:003.9[facility] CRGGNFJSH9611-57-65 21:00:000.8[facility] LygbczyAXFJUMBTU6147-44-82 21:00:67745 Memorial QdopvnkKNDVXVZZP7063-72-92 21:00:0023[facility] HermannCHEMISTRY 2011-07-27 21:00:000.4[facility] EnxdloxLQCOYGGXI2509-65-48 21:00:0099[facility] CqkfcjkYIRPJRMXI5049-97-89 21:00:006[facility] WgfyksoOSSXCLZHM5325-64-98 21:00:00 22[facility] NtmjqzpQECKQAPAR9840-98-94 21:00:008.0[facility]annCHEMISTRY 2011-07-27 21:00:003.8[facility] HzdumymCQOCGRUAC2469-61-16 21:00:008.9[facility] NdotmkvSSDIWFPEL7625-41-88 21:00:000.9[facility] BgvvsunVSKHNYTAN2231-52-66 21:00:0029[facility] PndmycyCJFPOWEZK5489-36-61 21:00:004.2[facility] REYNYWUSE6085-58-19 21:00:0014.9[facility] WokaedrCSMQVNOAAU6463-17-26 21:00:00 73.9[facility] EamvskcKTFTTCZBWC7431-34-83 21:00:000.6[facility]annHEMATOLOGY 2011-07-27 21:00:0020.8[facility] MamvazrQAZMMTULND1903-46-95 21:00:007.5[facility] OonaulrUJACXWWZYG2973-80-67 21:00:000.3[facility] RmbjvprVOHPPMQMCB4852-60-56 21:00:004.4[facility] CwmmhgkDJRHCXQHHW0947-77-05 21:00:002.1[facility] EIWRGMMLNB7590-19-24 21:00:000.0[facility] AtfgtrkIBHDETDDNQ6869-41-96 21:00:000.4 [facility] NxbhcovEQOPEBZAKQ1571-38-78 21:00:000.1[facility]annHEMATOLOGY 2011-07-27 21:00:007.9[facility] NpnboliPRHCYVSEKN6076-29-97 21:00:0035.4[facility] GizfimxIPFGAADINR1142-66-26 21:00:00* Test Item Value Reference Range Interpretation Comments MCH (test code = MCH) 29.2 pg 27.0-31.0 N [facility] TprpvhxXSTVBFFTKU0019-22-43 21:00:0013.2[facility] HermannHEMATOLOGY 2011-07-27 21:00:60593Idkwrmdm MnpitfuRRLKRSTGZJ9684-02-36 21:00:004.86[facility] IsjqeorZBINKGWZTA0291-55-43 21:00:0040.0[facility] WeaobxdDZXCBBNBTM1806-50-16 21:00:0082.4[facility]orial TmxpjadQLAGGZFMNJ9946-65-91 21:00:0014.2[facility] WQTMFQBGOA0223-32-01 21:00:0010.2[facility] IutphpuUVHEVKYBEN9627-57-21 21:00:00 0.95[facility] PowpcwxSFVZKAAARG0486-94-67 21:00:00* Test Item Value Reference Range Interpretation Comments PT (test code = PT) 12.7 s 12.0-14.7 [facility]IfdivhcOOZRBFQHEO1675-31-55 21:00:00* Test Item Value Reference Range Interpretation Comments PTT (test code = PTT) 25.2 s 22.9-35.8 N [facility]
[2020-04-08 20:45] VITALS: BP 159/64
[2020-04-08 21:41] VITALS: BP 159/64
[2020-04-08 21:42] VITALS: BP 159/64
--- NOTE | 2020-04-08 21:53 | NUR ---
called patients sons number to find out about patients home medications. Unable to get in touch with son. Voice message left on son's phone.
--- NOTE | 2020-04-08 22:13 | NUR ---
son returned call
[2020-04-08] MEDS ORDERED: QUETIAPINE FUMA25 MG PO (22:23)
[2020-04-08] MEDS ORDERED: ALPRAZOLAM1 MG PO (22:23)
[2020-04-08] MEDS ORDERED: PANTOPRAZOLE SO40 MG PO (22:23)
--- NOTE | 2020-04-08 22:26 | NUR ---
spoke with patients son regarding peg tube. son states peg tube is not being used.
[2020-04-09] VITALS (8 sets, daily range): BP systolic 135–167; BP diastolic 51–98
[2020-04-09 05:09] LABS: BASOPHILS # (AUTO) 0.1 (0.0-0.1); BASOPHILS % 1.1 % (0.0-1.0); EOSINOPHILS # (AUTO) 0.5 (0.0-0.4); EOSINOPHILS % 5.7 % (0.0-6.0); HEMATOCRIT 31.3 % (34.2-44.1); HEMOGLOBIN 10.2 g/dL (12.0-16.0); LYMPHOCYTES # (AUTO) 2.7 (1.0-3.2); LYMPHOCYTES % 33.5 % (18.0-39.1); MEAN CORPUSCULAR HEMOGLOBIN 27.7 pg (28-32); MEAN CORPUSCULAR HGB CONC 32.6 g/dL (31-35); MEAN CORPUSCULAR VOLUME 85.1 fL (81-99); MONOCYTES # (AUTO) 0.5 (0.2-0.8); MONOCYTES % 5.9 % (4.4-11.3); NEUTROPHILS # (AUTO) 4.3 (2.1-6.9); NEUTROPHILS % 53.4 % (38.7-80.0); PLATELET COUNT 286 x10e3/uL (140-360); RED BLOOD COUNT 3.68 x10e6/uL (3.6-5.1); RED CELL DISTRIBUTION WIDTH 15.4 % (11.7-14.4)
[2020-04-09 05:26] LABS: ANION GAP 16.5 mmol/L (8-16); CALCIUM 8.5 mg/dL (8.4-10.2); CREATININE, SERUM 4.21 mg/dL (0.57-1.11); POTASSIUM 3.5 mmol/L (3.5-5.1)
[2020-04-09] MEDS ORDERED: FAMOTIDINE 20 MG TAB PEG SCH (11:15)
[2020-04-09] MEDS: LISINOPRIL 20 MG TAB PEG SCH ×2 (11:15→22:00)
--- NOTE | 2020-04-09 12:23 | Consultation ---
DATE OF CONSULTATION: Renal Consult REASON FOR CONSULT: ESRD. HISTORY OF PRESENT ILLNESS: This is a 65-year-old female with history of CVA, who was admitted with mental status changes. The patient is also with ESRD on hemodialysis Saturday, Saturday, Saturday at [facility]. PAST MEDICAL HISTORY: Include. 1. ESRD on hemodialysis Saturday, Saturday, Saturday at [facility] Dialysis. 2. History of CVA. 3. History of spinal stenosis. 4. Type 2 diabetes mellitus. 5. Diabetic retinopathy. 6. Hypertension. 7. Dyslipidemia. 8. Positive COVID-19 pneumonia and diagnosed in December. PAST SURGICAL HISTORY: 1. Cataract surgery. 2. Appendectomy. 3. Total abdominal hysterectomy. 4. Tunneled dialysis catheter. 5. PEG tube. SOCIAL HISTORY: No smoking. No alcohol. No drugs. REVIEW OF SYSTEMS: Unable to get from the patient. FAMILY HISTORY: Negative. ALLERGIES: VANCOMYCIN, BENADRYL, IODINE. PHYSICAL EXAMINATION: GENERAL: The patient is currently back to her baseline according to her family. NECK: No JVD. No bruit. LUNGS: Rhonchi. No rales. HEART: Regular rate and rhythm. No S3, no S4. ABDOMEN: Nontender and nondistended. No hepatomegaly or splenomegaly. EXTREMITIES: No clubbing, no cyanosis, no edema. NEUROLOGICAL: No changes neurologically. No new sensory changes. LABORATORY DATA: White count 8, hemoglobin 10.2, and hematocrit 31.3. Sodium 139, potassium 3.5, chloride 100, and creatinine 4.2. Urinalysis; many bacteria. CURRENT MEDICATIONS: Include: 1. Atorvastatin. 2. Nicardipine. 3. Protonix. 4. Lisinopril. 5. Famotidine. 6. Plavix. 7. Clonidine. 8. Aspirin. 9. Amlodipine. 10. Alprazolam. 11. Rocephin. ASSESSMENT: 1. End-stage renal disease. The patient will be dialyzed today. 2. Urinary tract infection, sepsis, received Rocephin. Currently, much better, back to her baseline. 3. Mental status changes as above. 4. Anemia of chronic disease. Currently stable with hemoglobin above 10. 5. We will be monitoring her blood pressure and her glucose. Néstor Augustin MD MA/ALBERTO /[id number]
[2020-04-09] MEDS ORDERED: ALPRAZOLAM 1 MG TAB PO ONE ×2 (14:00→17:00)
[2020-04-09] MEDS ORDERED: MANNITOL 25% 12.5GM/50 ML VIAL IV PRN (15:00)
[2020-04-09] MEDS ORDERED: HEPARIN SOD (PORCINE) 1000 UNIT/ML SDV IV PRN (15:00)
[2020-04-09] MEDS ORDERED: ALBUMIN 25% 12.5GM 0.25 GM/ML BTL IV PRN (15:00)
[2020-04-09] MEDS ORDERED: SODIUM CHLORIDE 0.9% 1000ML 2,000 ML IV PRN (15:00)
[2020-04-09] MEDS ORDERED: SODIUM CHLORIDE 0.9% 250ML 500 ML IV PRN (15:00)
[2020-04-09] MEDS ORDERED: CEFTRIAXONE SOD 1 GM/NS 50 ML 50 ML IV SCH (16:45)
[2020-04-09] MEDS ORDERED: SODIUM CHLORIDE 0.9% 250ML 250 ML ONE (17:17)
[2020-04-09] MEDS ORDERED: ATORVASTATIN 40 MG TAB PO SCH (21:00)
[2020-04-09] MEDS ORDERED: ATORVASTATIN 20 MG TAB PO SCH (21:00)
[2020-04-10] VITALS: BP 165/53
--- NOTE | 2020-04-10 | NUR ---
Patient rounded and stable.
--- NOTE | 2020-04-10 04:00 | NUR ---
Patient rounded and stable.
[2020-04-10 07:55] VITALS: BP 162/65
[2020-04-10] MEDS: LISINOPRIL 20 MG TAB PEG SCH (08:48)
[2020-04-10] MEDS ORDERED: CLOPIDOGREL BISULFATE 75 MG TAB PO SCH (09:00)
[2020-04-10] MEDS ORDERED: ASPIRIN 81 MG CHEW TAB PO SCH (09:00)
[2020-04-10] MEDS ORDERED: AMLODIPINE BESYLATE 10 MG TAB PO SCH (09:00)
[2020-04-10] MEDS ORDERED: NIFEDIPINE 10 MG CAP PO SCH (09:00)
[2020-04-10] MEDS ORDERED: CLONIDINE HCL 0.2 MG/24 HR 1 EA PATCH TD SCH ×2 (09:00→10:45)
[2020-04-10] MEDS ORDERED: PANTOPRAZOLE SOD 40 MG TABEC PO SCH (09:00)
[2020-04-10 09:07] VITALS: BP 162/65
[2020-04-10 11:01] VITALS: BP 128/47
--- NOTE | 2020-04-10 11:07 | NUR ---
Notified Dr. Serrano that pt is Day 2 obs, and please assess dc plan/status.
[2020-04-10 14:59] VITALS: BP 137/58
[2020-04-10] MEDS ORDERED: CEFUROXIME250 MG PO (15:15)
--- NOTE | 2020-04-10 16:07 | NUR ---
PIV to right hand discontinue, catheter tip intact, no bleeding noted. gauze applied.
--- NOTE | 2020-04-10 16:18 | Discharge Summary ---
PRIMARY CARE PROVIDER: Elisabet Diamond, not on staff. ADMITTING DIAGNOSES: 1. Altered mental status due to metabolic encephalopathy due to infection. 2. Urinary tract infection with enterococcus faecalis. 3. History of previous stroke with left hemipareses. 4. Hypertension with chronic kidney disease, end-stage. 5. Type 2 diabetes with chronic kidney disease. 6. End-stage renal disease, on hemodialysis. 7. Previous positive COVID test. Her COVID test on admission was negative. DISCHARGE DIAGNOSES: 1. Altered mental status due to metabolic encephalopathy due to infection. 2. Urinary tract infection with enterococcus faecalis. 3. History of previous stroke with left hemipareses. 4. Hypertension with chronic kidney disease, end-stage. 5. Type 2 diabetes with chronic kidney disease. 6. End-stage renal disease, on hemodialysis. 7. Previous positive COVID test. Her COVID test on admission was negative. BRIEF HISTORY: Ms. Anderson is a 65-year-old lady with past medical history of CVA. She has some baseline altered mentation. However, she presented with worsening of her mental status. She had no fever or chills, but her UA showed leukocytosis. HOSPITAL COURSE: The patient was admitted to the floor. She received her regular hemodialysis on the 2nd day. On the 3rd day, her culture came back positive for enterococcus faecalis. She had been getting IV Rocephin. The organism was pansensitive. Her mental status had returned to baseline after initiation of antibiotic therapy. The rest of her labs were stable. The patient is being fed with the tube feeds, which she is tolerating well. The patient was discharged home to continue cefuroxime 500 mg twice a day for 7 days. She can resume all of her regular home medications. She can resume her tube feeding diet. I believe she is getting oral fluids for comfort. She can resume her limited regular activity and she will need to follow up with her primary care provider within 2 weeks. She also needs to follow up with her dialysis at the regular scheduled time. MD FRITZ Barrientos/ALBERTO /[id number]
--- NOTE | 2020-04-10 16:36 | NUR ---
Discharge instruction given to the patient's son. Prescription given with discharge packet. Verbalized understanding. Patient is unable to communicate with history of CVA and residual aphasia. Transported via personal wheelchair to private vehicle.
[2020-04-11] MEDS ORDERED: ALPRAZOLAM 1 MG TAB PO SCH (11:39)
== END 2020-04-10 16:36 | disposition home or self-care (01) ==
LOC: ER 15:00 → ERHOLD 17:48 → MED/SURG2 20:57
PROVIDERS: ADMIT Internal Medicine; ATTEND Internal Medicine
DX: N39.0 Urinary tract infection, site not specified (principal); E11.22 Type 2 diabetes mellitus with diabetic chronic kidney disease; I12.0 Hypertensive chronic kidney disease with stage 5 chronic kidney disease or end stage renal disease; N18.6 End stage renal disease; Z99.2 Dependence on renal dialysis; F41.9 Anxiety disorder, unspecified; Z11.59 Encounter for screening for other viral diseases; B95.2 Enterococcus as the cause of diseases classified elsewhere; G93.41 Metabolic encephalopathy; I69.354 Hemiplegia and hemiparesis following cerebral infarction affecting left non-dominant side; Z86.19 Personal history of other infectious and parasitic diseases; E11.319 Type 2 diabetes mellitus with unspecified diabetic retinopathy without macular edema; D63.8 Anemia in other chronic diseases classified elsewhere
CPT/HCPCS: 36415 ×3; 70450; 71045; 80048; 80053; 81001; 82948 ×3; 83605; 84484; 85025 ×2; 85610; 86704; 86705; 86706; 87086; 87186; 87340; 90970; 93005; 99284; G0378 ×3; J0696 ×2; J1644; J7050; S0164; U0002

== ENCOUNTER 2020-05-27 21:51 | Emergency (ER) | payer MEDICARE, OTHER ==
[~2020-05-27] VITALS: Ht 157.5 cm; Wt 55.3 kg
[~2020-05-27 21:51] MED LIST changes: +ALPRAZOLAM1 MG PO; +CEFUROXIME250 MG PO; +QUETIAPINE FUMA25 MG PO
--- OUTSIDE RECORDS SUMMARY | 2020-05-27 22:04 | XMS REPORT | Continuity of Care Document ---
Author Author Stevo Best Bid Awilda Lopez [employer] Information [place] Address Unknown Phone Unavailable Care Team Providers Care Portal Developer Name Role Phone [employer] Exchange Unavailable Un available Problems Problem Status Onset Date Classification Date Reported Comments Source MAMMO --- BONE DENSITY Active 09/25/2018 [facility] M25.512 Active 09/22/2018 [facility] Discharge Diagnosis: Abdominal pain 03/06/2014 03/08/2014 [facility] Discharge Diagnosis: Acute lower urinary tract infection 03/06/2014 03/08/2014 [facility] ABD PAIN Active 03/05/2014 [facility] 719.4 - PAIN IN JOINT Active 07/24/2013 [facility] [place] SORE THROAT Active 04/01/2013 [facility] CHEST PAIN Active 07/27/2011 [facility] HTN - Hypertension Active 01/22/2001 Problem 08/03/2011 [facility] Cerebrovascular disease (disorder) Active Problem [facility] Finding of body mass index (finding) Active Problem [facility] Hypertensive disorder, systemic arterial (disorder) Active Problem 07/12/2019 [facility], [facility] [place] Left hemiparesis (disorder) Ac tive Problem [facility] Mixed hyperlipidemia (disorder) Active Problem Medical [...] [facility] Chest pain Active Problem 04/04/2013 [facility] DM - Diabetes mellitus Active Problem 04/04/2013 [facility] Chest pain (finding) Active Problem 03/08/2014 [facility] Guerline mendez Diabetes mellitus (disorder) A ctive Problem [facility] Guerline mendez Hyperlipidemia (disorder) Acti ve Problem ASHLEY Degroot, Guerline t HTN - Hypertension Active Problem 04/04/2013 [facility] Hyperlipidemia Active Problem 04/04/2013 [facility] CHEST PAIN NOS Active [facility] Medications Medication Details Route Status Patient Instructions Ordering Provider Order Date Source Metoprolol Tartrate 25 mg oral tablet = 0.5 tab, PO, BID, # 90 tab, Pharmacy: [facility] #[id number] Active 05/25/2019 [facility] Furosemide 20 MG Oral Tablet = 1 tab, PO, Daily, # 90 tab, STOP LISINOPRIL HCTZ, Pharmacy: [facility] #[id number] Active 04/08/2019 [facility] atorvastatin 80 mg oral tablet 80 mg = 1 tab, PO, Bedtime, # 90 tab, 1 Refill(s), Pharmacy: [facility] #[id number] Active 01/29/2019 [facility] amLODIPine 5 mg oral tablet = 1 tab, PO, BID, # 180 tab, Refill(s) 1, Pharmacy: [facility] #[id number] Active 01/28/2019 [facility] amLODIPine 5 mg oral tablet 5 mg = 1 tab, PO, BID, # 60 tab, 1 Refill(s), Pharmacy: [facility] #[id number] Inactive 01/28/2019 [facility] NIFEdipine 30 mg oral tablet, extended release 30 mg = 1 tab, PO, Daily, # 90 tab, 1 Refill(s), Pharmacy: [facility] #[id number] No Longer Active 01/28/2019 [facility] pantoprazole 40 mg oral enteric coated tablet See Instructions, 1 tab PO a day only 2 times a week, # 90 tab, 0 Refill(s), called to pharmacy Active 01/21/2019 [facility] Ergocalciferol 67594 UNT Oral Capsule 50,000 IntlUnit = 1 cap, PO, qWeek, # 12 cap, 2 Refill(s), [id number] Active 01/19/2019 [facility] Alendronic acid 70 MG Oral Tablet 70 mg = 1 tab, PO, Q7D, with 6 to 8 ounces plain water, at least 30 minutes before first food, beverage, or medication of the day, # 12 tab, 3 Refill(s), [id number] No Longer Active 01/19/2019 [facility] atorvastatin 80 mg oral tablet 80 mg = 1 tab, PO, Daily, # 90 tab, 1 Refill(s), [id number] Active 01/19/2019 [facility] lisinopril 30 mg oral tablet 3 0 mg = 1 tab, PO, Daily, # 90 tab, 1 Refill(s), [id number], stop lisinopril hctz Active 01/19/2019 [facility] Furosemide 20 MG Oral Tablet 2 0 mg = 1 tab, PO, Daily, # 90 tab, 0 Refill(s), [id number], stop lisinopril hctz Active 01/19/2019 [facility] atorvastatin 80 mg oral tablet 80 mg = 1 tab, PO, Daily, # 90 tab, 3 Refill(s) Inactive 01/19/2019 [facility] Ergocalciferol 85943 UNT Oral Capsule 50,000 IntlUnit = 1 cap, PO, qWeek, # 12 cap, 2 Refill(s), [facility] [id number] Active 10/21/2018 [facility] citalopram 10 mg oral tablet 1 0 mg = 1 tab, PO, Daily, # 30 tab, 1 Refill(s), [id number] Active 10/20/2018 [facility] Alendronic acid 70 [...] DM eval date 10/20/18, 3 Refill(s), Pharmacy: [facility] [id number] Active 10/20/2018 [facility] atorvastatin 40 mg oral tablet 40 mg = 1 tab, PO, Bedtime, # 90 tab, 1 Refill(s), Pharmacy: [facility] [id number] Active 10/20/2018 [facility] Hydrochlorothiazide 12.5 MG / Lisinopril 20 MG Oral Tablet 1 tab, PO, Daily, # 90 tab, 1 Refill(s), Pharmacy: [facility] [id number], stop losartan hctz and amlodipine. Active 10/20/2018 [facility] atorvastatin 40 mg oral tablet 40 mg = 1 tab, PO, Bedtime, # 90 tab, 1 Refill(s), Pharmacy: [facility] [id number] Active 10/09/2018 [facility] Trazodone Hydrochloride 50 MG Oral Tablet 50 mg = 1 tab, PO, Bedtime, after meals for insomnia, # 30 tab, 1 Refill(s), Pharmacy: [facility] [id number] Active 09/19/2018 [facility] gabapentin 300 MG Oral Capsule 300 mg = 1 cap, PO, BID, # 60 cap, 1 Refill(s), Pharmacy: [facility] [id number] Active 09/19/2018 [facility] metoprolol tartrate 25 mg oral tablet 12.5 mg = 0.5 tab, PO, BID, 0 Refill(s) Active 09/19/2018 [facility] Hydrochlorothiazide 12.5 MG / Losartan P otassium 50 MG Oral Tablet 1 tab, PO, Daily, # 90 tab, 0 Refill(s) Active 09/19/2018 [facility] amLODIPine 10 mg oral tablet 1 0 mg = 1 tab, PO, Daily, # 90 tab, 1 Refill(s) Active 09/19/2018 [facility] Aspirin Enteric Coated 325 mg oral delay ed release tablet 325 mg = 1 tab, PO, Daily, 0 Refill(s) Active 09/19/2018 [facility] Glipizide 5 MG Oral Tablet [...] # 12 tab, 0 Refill(s) Active 03/06/2014 [facility] ciprofloxacin 500 mg oral tablet 500 mg = 1 tab, PO, Q12H, # 20 tab, 0 Refill(s) Active 03/06/2014 [facility] Zofran 4 mg, Route: IVP, Drug form: INJ, ONCE, Dosing Weight 78.636, kg, Priority: STAT, Start date: 03/05/14 22:16:00, Stop date: 03/05/14 22:16:00 Inactive 03/06/2014 [facility] Morphine 4 mg, Route: IVP, Reyes g form: INJ, ONCE, Dosing Weight 78.636, kg, Priority: STAT, Start date: 03/05/14 22:15:00, Stop date: 03/05/14 22:15:00 Inactive 03/06/2014 [facility] lisinopril 10 mg oral tablet 1 0 mg, 1 tab, PO, Daily, 30 tab, Substitution Allowed, TAB Active Sam dan 04/01/2013 [facility] metFORmin 500 mg oral tablet 5 00 mg, 1 tab, PO, BID, 30 tab, Substitution Allowed Active Luis Carlos 04/01/2013 [facility] Insulin regular 8 unit, Route: SUB-Q, ONCE, Dosing Weight 79.091, kg, Start date: 04/01/13 12:23:00, Stop date: 04/01/13 12:23:00 Inactive Luis Carlos 02/2013 [facility] dexamethasone 10 mg, Route: IM , ONCE, Dosing Weight 79.091, kg, Priority: STAT, Start date: 04/01/13 11:36:00, Stop date: 04/01/13 11:36:00 Inactive LuisC arlos 02/2013 [facility] ketorolac 60 mg, Route: IM, Dr ug form: INJ, ONCE, Dosing Weight 79.091, kg, Priority: STAT, Start date: 04/01/13 11:35:00, Stop date: 04/01/13 11:35:00 Inactive Aldridge 04/01/2013 [facility] Bicillin L-A 1,200,000 unit, 2 mL, Route: IM, Drug form: INJ, ONCE, Dosing Weight 79.091, kg, Start date: 04/01/13 11:35:00, Stop date: 04/01/13 11:35:00(penicillin G benzathine 1.2 MilUnit/2 ml INJ) (Same as: Bi cillin L-A, Permapen) NOT For Daily Use Inactive [facility] 04/01/2013 [facility] acetaminophen 500 mg, 1 tab, R oute: PO, Drug form: TAB, Q6H, PRN Pain, Start date: 07/31/11 19:22:00, Duration: 30 day, Stop date: 08/30/11 19:21:00 PO No Longer Active Pilgr[place] 08/01/2011 [facility] Metoprolol Succinate ER 25 mg oral table t, extended release 25 mg, 1 tab, Route: PO, Drug form: ERTA B, Daily, Start date: 07/30/11 9:00:00, Duration: 30 day, Stop date: 08/28/11 9:00:00 PO No Longer Active [place] 07/30/2011 [facility] aspirin 325 mg tablet, enteric coated 325 mg, 1 tab, Route: PO, Drug form: ECTAB, Daily, Start date: 07/30/11 9:00:00, Duration: 30 day, Stop date: 08/28/11 9:00:00 PO No Longer Active [place] 07/30/2011 [facility] Saline Flush 0.9% 5 ml, Route: IVP, Drug Form: INJ, Q12H, Start date: 07/29/11 21:00:00, Duration: 30 day, Stop date: 08/28/11 9:00:00 IVP No Longer Active [place] 07/30/2011 [facility] simvastatin 20 mg, 1 tab, Rout e: PO, Drug form: TAB, Bedtime, Start date: 07/29/11 21:00:00, Duration: 30 day, Stop date: 08/27/11 21:00:00 PO No Longer Active [place] 07/30/2011 [facility] Dextrose 50% in Water IV 50 mL , Route: IVP, PRN, Blood Glucose Results, Start date: 07/29/11 17:36:00, Duration: 30 day, Stop date: 08/28/11 17:35:00 IVP No Longer Active [place] 07/29/2011 [facility] Dextrose 50% in Water IV 25 mL , Route: IVP, PRN, Blood Glucose Results, Start date: 07/29/11 17:35:00, Duration: 30 day, Stop date: 08/28/11 17:34:00 IVP No Longer Active [place] 07/29/2011 [facility] metFORmin 500 mg oral tablet 5 00 mg, 1 tab, Route: PO, Drug form: TAB, BID-Meals, Start date: 07/29/11 17:00:00, Duration: 30 day, Stop date: 08/28/11 8:00:00 PO No Longer Active [place] 07/29/2011 [facility] insulin aspart 4 unit, 0.04 mL , Route: SUB-Q, Drug form: SOLN, TID-Before Meals, PRN Blood Glucose Results, Start date: 07/29/11 16:33:00, Duration: 30 day, Stop date: 08/28/11 16:32:00 SUB-Q No Longer Active [place] 07/29/2011 [facility] Saline Flush 0.9% 5 ml, Route: IVP, Drug Form: INJ, PRN, PRN Line Flush, Start date: 07/29/11 16:33:00, Duration: 30 day, Stop date: 08/28/11 16:32:00 IVP No Longer Active [place] 07/29/2011 [facility] nitroglycerin SL Tab 0.4 mg, 1 tab, Route: SL, Drug form: TAB, Q5Min, PRN Chest Pain, Start date: 07/29/11 16:33:00, Duration: 3 doses or times, Stop date: Limited # of times SL No Longer Active Pil[place] 07/29/2011 [facility] insulin aspart 2 unit, 0.02 mL , Route: SUB-Q, Drug form: SOLN, TID-Before Meals, PRN Blood Glucose Results, Start date: 07/29/11 16:32:00, Duration: 30 day, Stop date: 08/28/11 16:31:00 SUB-Q No Longer Active [place] 07/29/2011 [facility] glucagon 1 mg, Route: IM, Drug form: PDR/INJ, PRN, PRN Blood Glucose Results, Start date: 07/29/11 16:32:00, Duration: 30 day, Stop date: 08/28/11 16:31:00 IM No Longer Active [place] 07/29/2011 [facility] atropine 0.5 mg, 5 mL, Route: IVP, Drug form: INJ, PRN, PRN Bradycardia, Start date: 07/29/11 16:32:00, Duration: 30 day, Stop date: 08/28/11 16:31:00 IVP No Longer Active [place] 07/29/2011 [facility] Tylenol 650 mg, 2 tab, Route: PO, Drug form: TAB, Q6H, PRN Pain, Start date: 07/29/11 16:32:00, Duration: 30 day, Stop date: 08/28/11 16:31:00 PO No Longer Active [place] 07/29/2011 [facility] Dextrose 50% Syringe 12.5 gm, Route: IVP, Drug Form: INJ, PRN, PRN Blood Glucose Results, Start date: 07/29/11 16:32:00, Duration: 30 day, Stop date: 08/28/11 16:31:00 IVP No Longer Active [place] 07/29/2011 [facility] Dextrose 50% Syringe 25 gm, [place]: IVP, Drug Form: INJ, PRN, PRN Blood Glucose Results, Start date: 07/29/11 16:31:00, Duration: 30 day, Stop date: 08/28/11 16:30:00 IVP No Longer Active [place] 07/29/2011 [facility] Metoprolol Succinate ER 25 mg oral table t, extended release 25 mg, 1 tab, Route: PO, Drug form: ERTA B, Daily, Start date: 07/29/11 9:00:00, Duration: 30 day, Stop date: 08/27/11 9:00:00 PO No Longer Active Frederick 07/29/2011 [facility] simvastatin 20 mg, 1 tab, Rout e: PO, Drug form: TAB, Bedtime, Start date: 07/28/11 21:00:00, Duration: 30 day, Stop date: 08/26/11 21:00:00 PO No Longer Active Frederick 07/29/2011 [facility] metFORmin 500 mg oral tablet 5 00 mg, 1 tab, Route: PO, Drug form: TAB, BID-Meals, Start date: 07/28/11 17:00:00, Duration: 30 day, Stop date: 08/27/11 8:00:00 PO No Longer Active Frederick 07/28/2011 [facility] Tylenol 650 mg, 2 tab, Route: PO, Drug form: TAB, Q6H, PRN Pain, Start date: 07/28/11 4:25:00, Duration: 30 day, Stop date: 08/27/11 4:24:00 PO No Longer Active Frederick 07/28/2011 [facility] Saline Flush 0.9% 5 ml, Route: IVP, Drug Form: INJ, Q12H, Start date: 07/27/11 21:00:00, Duration: 30 day, Stop date: 08/26/11 9:00:00 IVP No Longer Active [place] 07/28/2011 [facility] atropine 0.5 mg, 5 mL, Route: IVP, Drug form: INJ, PRN, PRN Bradycardia, Start date: 07/27/11 19:19:00, Duration: 30 day, Stop date: 08/26/11 19:18:00 IVP No Longer Active [place] 07/28/2011 [facility] aspirin 325 mg tablet, enteric coated 325 mg, 1 tab, Route: PO, Drug form: ECTAB, Q24H, Start date: 07/27/11 19:00:00, Duration: 30 day, Stop date: 08/25/11 19:00:00 PO No Longer Active [place] 07/28/2011 [facility] Saline Flush 0.9% 5 ml, Route: IVP, Drug Form: INJ, PRN, PRN Line Flush, Start date: 07/27/11 18:25:00, Duration: 30 day, Stop date: 08/26/11 18:24:00 IVP No Longer Active [place] 07/28/2011 [facility] nitroglycerin SL Tab 0.4 mg, 1 tab, Route: SL, Drug form: TAB, Q5Min, PRN Chest Pain, Start date: 07/27/11 18:25:00, Duration: 3 doses or times, Stop date: Limited # of times SL No Longer Active [place] 07/28/2011 [facility] Dextrose 50% Syringe 12.5 gm, 25 mL, Route: IVP, Drug Form: INJ, PRN, PRN Blood Glucose Results, Start date: 07/27/11 18:24:00, Duration: 30 day, Stop date: 08/26/11 18:23:00 IVP No Longer Active [place] 07/28/2011 [facility] glucagon 1 mg, Route: IM, Drug form: PDR/INJ, PRN, PRN Blood Glucose Results, Start date: 07/27/11 18:24:00, Duration: 30 day, Stop date: 08/26/11 18:23:00 IM No Longer Active [place] 07/28/2011 [facility] insulin aspart 2 unit, 0.02 mL , Route: SUB-Q, Drug form: SOLN, TID-Before Meals, PRN Blood Glucose Results, Start date: 07/27/11 18:24:00, Duration: 30 day, Stop date: 08/26/11 18:23:00 SUB-Q No Longer Active [place] 07/28/2011 [facility] Tylenol 1,000 mg, Route: PO, D rug form: TAB, ONCE, PRN Pain, Priority: STAT, Start date: 07/27/11 17:44:00, Stop date: 08/26/11 17:43:00 PO No Longer Active Santi 07/27/2011 [facility] metFORmin 500 mg oral tablet 5 00 mg, 1 tab, PO, BID- Meals, Substitution Allowed PO Active Frederick 07/27/2011 [facility] hydrochlorothiazide-lisinopril 12.5 mg-1 0 mg oral tablet 1 tab, PO, Daily, Substitution Allowed, Maintenance PO Active 07/27/2011 [facility] simvastatin 20 mg, PO, Bedtime , Substitution Allowed PO Active Frederick 07/27/2011 [facility] Vitamin D 50,000 intl units oral capsule 50,000 IntlUnit, 1 cap, PO, QFri, Substitution Allowed PO Active 07/27/2011 [facility] ibuprofen 400 mg oral tablet 4 00 mg, 1 tab, PO, TID, PRN, as needed for headache, Substitution Allowed PO Active 07/27/2011 [facility] Saline Flush 0.9% 5 ml, Route: IVP, Drug Form: INJ, PRN, PRN Line Flush, Start date: 07/27/11 14:54:00, Duration: 24 hr, Stop date: 07/28/11 14:53:00 IVP No Longer Active [place] 07/27/2011 [facility] aspirin 325 mg tablet 325 mg, Route: PO, Drug form: TAB, ONCE, Priority: STAT, Start date: 07/27/11 14:54:00, Stop date: 07/27/11 14:54:00 PO No Longer Active Santi 07/27/2011 [facility] Allergies, Adverse Reactions, Alerts Substance Category [...] should be multiplied by the estimated BMI. [facility] CHEM PANEL Bili Total 0.9 0.2 - 1.3 03/06/2014 [facility] CHEM PANEL AGAP 13.0 10.0 - 20.0 03/06/2014 [facility] CHEM PANEL B/C Ratio 18 6 - 25 03/06/2014 [facility] CHEM PANEL ALT 28 0 - 65 03/06/2014 [facility] CHEM PANEL AST 18 0 - [...] values reflect the clinical guidelines
of the [place] [employer]. [facility] CHEM PANEL BUN 11 7 - 22 03/06/2014 [facility] CHEM PANEL Albumin Lvl 3.6 3.5 - 5.0 03/06/2014 [facility] CHEM PANEL Total Protein 8.0 6.4 - 8.4 03/06/2014 [facility] CHEM PANEL Calcium Lvl 9.1 8.5 - 10.5 03/06/2014 [facility]M PANEL CO2 25 24 - 32 03/06/2014 [facility] CHEM PANEL A/G Ratio 0.8 0.7 - 1.6 03/06/2014 [facility] CHEM PANEL Globulin 4.4 2.0 - 4.0 03/06/2014 [facility] HEMATOLOGY Segs 60.9 45.0 - 75.0 03/06/2014 [facility] HEMATOLOGY Basophils 1.1 0.0 - 1.0 03/06/2014 [facility] HEMATOLOGY Eosinophils 1.2 0.0 - 4.0 03/06/2014 [facility] HEMATOLOGY Monocytes 4.4 2.0 - 12.0 03/06/2014 [facility] HEMATOLOGY Lymphocytes 32.4 20.0 - 40.0 03/06/2014 [facility] HEMATOLOGY Eosinophils # 0.1 0.0 - 0.5 03/06/2014 [facility] HEMATOLOGY Monocytes # 0.5 0.0 - 0.8 03/06/2014 [facility] HEMATOLOGY Lymphocytes # 3.5 1.0 - 5.5 03/06/2014 [facility] HEMATOLOGY Segs-Bands # 6.5 1.5 - 8.1 03/06/2014 [facility] HEMATOLOGY Basophils # 0.1 0.0 - 0.2 03/06/2014 [facility] HEMATOLOGY RDW 13.0 11.5 - 14.5 03/06/2014 [facility] HEMATOLOGY MCHC 33.4 32.0 - 36.0 03/06/2014 [facility] HEMATOLOGY MCH 28.3 27.0 - 31.0 03/06/2014 [facility] HEMATOLOGY MCV 84.7 80.0 - 98.0 03/06/2014 [facility] HEMATOLOGY MPV 8.7 7.4 - 10.4 03/06/2014 [facility] HEMATOLOGY Platelet 366 133 - 450 03/06/2014 [facility] HEMATOLOGY WBC 10.7 3.7 - 10.4 03/06/2014 [facility] HEMATOLOGY Hct 49.5 36.0 - 48.0 03/06/2014 [facility] HEMATOLOGY Hgb 16.5 12.0 - 16.0 03/06/2014 [facility] HEMATOLOGY RBC 5.84 4.20 - 5.40 03/06/2014 [facility] URINE AND STOOL UA Urobilinogen <=1.0 mg/dL 0.1 - 1.0 03/05/2014 [facility] URINE AND STOOL UA Blood Small *ABN* (03/05/14 12:30 AM) Negative 03/05/2014 [facility] URINE AND STOOL UA Nitrite Negative (03/05/14 12:30 AM) Negative 03/05/2014 [facility] URINE AND STOOL UA Turbidity Marked *ABN* (03/05/14 12:30 AM) Clear 03/05/2014 [facility] URINE AND STOOL UA Spec Grav 1.032 <=1.030 03/05/2014 [facility] URINE AND STOOL UA Color Yellow *NA* (03/05/14 12:30 AM) Yellow 03/05/2014 [facility] URINE AND STOOL UA Sq Epi Many /LPF Few /LPF 03/05/2014 [facility] URINE AND STOOL UA WBC 128 0 - 5 03/05/2014 [facility] URINE AND STOOL UA RBC 15 0 - 2 03/05/2014 [facility] URINE AND STOOL UA Leuk Est Large *ABN* (03/05/14 12:30 AM) Negative 03/05/2014 [facility] URINE AND STOOL UA Bili Negative *NA* (03/05/14 12:30 AM) Negative 03/05/2014 [facility] URINE AND STOOL UA pH 5.0 5.0 - 8.0 03/05/2014 [facility] URINE AND STOOL UA Protein 30 mg/dL Negative mg/dL 03/05/2014 [facility] URINE AND STOOL UA Glucose 500 mg/dL Negative mg/dL 03/05/2014 [facility] URINE AND STOOL UA Ketones 20 mg/dL Negative mg/dL 03/05/2014 [facility] BEDSIDE GLUCOSE TESTING Glucose POC 340 70 - 99 04/01/2013 [facility] <sup>1</sup>Interpretive Data: Upper Reportable Limit: 200 mg/dL. [facility] BEDSIDE GLUCOSE TESTING Glucose POC 356 70 - 99 04/01/2013 [facility] <sup>2</sup>Interpretive Data: Upper Reportable Limit: 200 mg/dL. [facility] BEDSIDE GLUCOSE TESTING Gluc POC Lif scn 162 65 - 110 08/01/2011 [facility] <sup>1</sup>Interpretive Data: Upper Reportable Limit: 200 mg/dL. [facility] BEDSIDE GLUCOSE TESTING Gluc POC Lif scn 226 65 - 110 08/01/2011 [facility] <sup>2</sup>Interpretive Data: Upper Reportable Limit: 200 mg/dL. [facility] BEDSIDE GLUCOSE TESTING Gluc POC Lif scn 144 65 - 110 07/31/2011 [facility] <sup>3</sup>Interpretive Data: Upper Reportable Limit: 200 mg/dL. [facility] BEDSIDE GLUCOSE TESTING Comment1 Notify RN/MD 07/31/2011 NA [facility] BEDSIDE GLUCOSE TESTING Comment1 Notify RN/MD 07/31/2011 NA [facility] BEDSIDE GLUCOSE TESTING Comment1 Notify RN/MD 07/30/2011 NA [facility] CHEMISTRY Troponin-I <0.02 0.00 - 0.40 07/28/2011 Normal [facility] CHEMISTRY Total CK 35 12 - 191 07/28/2011 Normal [facility] CHEMISTRY Total CK 35 12 - 191 07/28/2011 Normal [facility] CHEMISTRY Troponin-I <0.02 0.00 - 0.40 07/28/2011 Normal [facility] CHEMISTRY CK MB Index <1.1 0.0 - 2.5 07/27/2011 Normal [facility] CHEMISTRY Total CK 45 12 - 191 07/27/2011 Normal [facility] CHEMISTRY CK MB <0.5 0.5 - 3.6 07/27/2011 Normal [facility] CHEMISTRY Troponin-I <0.02 0.00 - 0.40 07/27/2011 Normal [facility] CHEMISTRY Chloride Lvl 103 95 - 109 07/27/2011 Normal [facility] CHEMISTRY CO2 21 24 - 32 07/27/2011 LOW [facility] CHEMISTRY Sodium Lvl 135 135 - 145 07/27/2011 Normal [facility] CHEMISTRY Potassium Lvl 3.9 3.5 - 5.1 07/27/2011 Normal [facility] CHEMISTRY Creatinine Lvl 0.8 0.5 - 1.4 07/27/2011 Normal [facility] CHEMISTRY Glucose Lvl 352 07/27/2011 NA <sup>4</sup>Interpretive Data: Reference Ranges : 0 - 7 days : 41 - 90 mg/dL 7 days - 150 yrs : 70 - 99 mg/dL (fasting), based on the clinical recommendations of the [place] [employer]. [facility] CHEMISTRY BUN 23 7 - 22 07/27/2011 HI [facility] CHEMISTRY Bili Total 0.4 0.2 - 1.3 07/27/2011 Normal [facility] CHEMISTRY Alk Phos 99 39 - 136 07/27/2011 Normal [facility] CHEMISTRY AST 6 0 - 37 07/27/2011 Normal [facility] CHEMISTRY ALT 22 0 - 65 07/27/2011 Normal [facility] CHEMISTRY Total Protein 8.0 6.4 - 8.4 07/27/2011 Normal [facility] CHEMISTRY Albumin Lvl 3.8 3.5 - 5.0 07/27/2011 Normal [facility] CHEMISTRY Calcium Lvl 8.9 8.5 - 10.5 07/27/2011 Normal [facility] CHEMISTRY A/G Ratio 0.9 0.7 - 1.6 07/27/2011 Normal [facility] CHEMISTRY B/C Ratio 29 6 - 25 07/27/2011 [facility] CHEMISTRY Globulin 4.2 2.0 - 4.0 07/27/2011 [facility] CHEMISTRY AGAP 14.9 10.0 - 20.0 07/27/2011 Normal [facility] HEMATOLOGY Segs 73.9 45.0 - 75.0 07/27/2011 Normal [facility] HEMATOLOGY Eosinophils 0.6 0.0 - 4.0 07/27/2011 Normal [facility] HEMATOLOGY Lymphocytes 20.8 20.0 - 40.0 07/27/2011 Normal [facility] HEMATOLOGY Segs-Bands # 7.5 1.5 - 8.1 07/27/2011 Normal [facility] HEMATOLOGY Basophils 0.3 0.0 - 1.0 07/27/2011 Normal [facility] HEMATOLOGY Monocytes 4.4 2.0 - 12.0 07/27/2011 Normal [facility] HEMATOLOGY Lymphocytes # 2.1 1.0 - 5.5 07/27/2011 Normal [facility] HEMATOLOGY Basophils # 0.0 0.0 - 0.2 07/27/2011 Normal [facility] HEMATOLOGY Monocytes # 0.4 0.0 - 0.8 07/27/2011 Normal [facility] Eosinophils # 0.1 0.0 - 0.5 07/27/2011 Normal [facility] MPV 7.9 7.4 - 10.4 07/27/2011 Normal [facility] MCHC 35.4 32.0 - 36.0 07/27/2011 Normal [facility] MCH 29.2 27.0 - 31.0 07/27/2011 Normal [facility] RDW 13.2 11.5 - 14.5 07/27/2011 Normal [facility] Platelet 360 133 - 450 07/27/2011 Normal [facility] RBC 4.86 4.20 - 5.40 07/27/2011 Normal [facility] Hct 40.0 36.0 - 48.0 07/27/2011 Normal [facility] MCV 82.4 81.0 - 99.0 07/27/2011 Normal [facility] Hgb 14.2 12.0 - 16.0 07/27/2011 Normal [facility] WBC 10.2 3.7 - 10.4 07/27/2011 Normal [facility] INR 0.95 0.85 - 1.17 07/27/2011 Normal <sup>5</sup>Interpretive Data: RECOMMEND ED RANGES FOR PROTIME INR: 2.0-3.0 for most medical and surgical thromboembolic states. 2.5-3.5 for artificial heart valves and recurrent embolism. INR SHOULD BE USED ONLY FOR PATIENTS ON STABLE ANTICOAGULANT THERAPY. [facility] PT 12.7 12.0 - 14.7 07/27/2011 Normal [facility] PTT 25.2 22.9 - 35.8 07/27/2011 Normal <sup>6</sup>Interpretive Data: Heparin T herapeutic Range: 57 - 92 Seconds [facility] Pathology Reports No Data Provided for This Section Diagnostic Reports Report Value Date Source Breast Mammo Scrn KIMBERLY incl CAD MA BILATERAL DIGITAL SCREENING MAMMOGRAM WITH CAD: 10/15/2018 CLINICAL: /Routine. Current study was evaluated with a Computer Aided Detection (CAD) system. COMPARISON:Comparison is made to exam dated: 10/02/2011 mammogram - [facility]. TECHNIQUE: Mammographic views were obtained using digital acquisition. [employer] Power Version 1.3 was utilized for computer aided [...] is recommended.(10/16/2019) This exam was interpreted at [id number] for [facility] Breast [employer]. Fran johnson/sonia:10/15/2018 15:19:21 Hemmer Lockstitch(s): Kimberly [facility] letter sent: BI-RADS 1/2 Mammogram BI-RADS: 2 Benign 10/15/2018 [facility] Bone Density Scan Study: Bone Density Scan Clinical Indication: Osteoporosis screening; Images of the axial lumbar spine and left hip have been performed using Widbook Discovery SL scanner. COMPARISON: None FINDINGS: The [...] standard deviations below peak bone mass. SL: [id number] 10/15/2018 [facility] Shoulder series DX Left should er 3 views DX, 09/22/2018 12:37 CDT HISTORY: - left shoulder pain COMPARISON: None FINDINGS: No evidence for acute fracture. Humeral head is intact and located. Acromioclavicular joint is also intact mild degenerative changes. Soft tissues unremarkable. IMPRESSION: No acute osseous abnormality SL: [id number] 09/22/2018 [facility] Abdomen/Pelvis wo IV contrast CT CT [...] cholecystectomy, append ectomy and hysterectomy. SL: 03/05/2014 [facility] Brain wo contrast CT CT head [...] Dedicated MRI brain if indicated. SL: 03/05/2014 [facility] Ribs bilateral Exam: Bilateral rib x-ray [...] 03/06/2014 [facility] Systolic (mm Hg) 134 03/06/2014 [facility] Heart Rate 75 03/06/2014 [facility] Respitory Rate 16 03/06/2014 [facility] Height 160.02 cm 03/05/2014 [facility] BMI Calculated 30.71 03/05/2014 [facility] Weight 78.636 03/05/2014 [facility] Temperature Oral (F) 98.3 F 03/05/2014 [facility] Heart Rate 74 03/05/2014 [facility] Systolic (mm Hg) 143 03/05/2014 [facility] Respitory Rate 16 03/05/2014 [facility] Diastolic (mm Hg) 81 03/05/2014 [facility] Heart Rate 86 04/01/2013 [facility] Systolic (mm Hg) 136 04/01/2013 [facility] Diastolic (mm Hg) 84 04/01/2013 [facility] Respitory Rate 16 04/01/2013 [facility] Respitory Rate 16 04/01/2013 [facility] Diastolic (mm Hg) 68 04/01/2013 [facility] Heart Rate 90 04/01/2013 [facility] Systolic (mm Hg) 142 04/01/2013 [facility] Weight 79.091 04/01/2013 [facility] Height 160.02 cm 04/01/2013 [facility] Respitory Rate 18 04/01/2013 [facility] Heart Rate 90 04/01/2013 [facility] Systolic (mm Hg) 132 04/01/2013 [facility] Diastolic (mm Hg) 85 04/01/2013 [facility] Temperature Oral (F) 98.2 F 04/01/2013 [facility] Heart Rate 69 08/01/2011 [facility] Temperature Oral (F) 98.2 F 08/01/2011 [facility] Respitory Rate 18 08/01/2011 [facility] Systolic (mm Hg) 122 08/01/2011 [facility] Diastolic (mm Hg) 69 08/01/2011 [facility] Diastolic (mm Hg) 71 08/01/2011 [facility] Heart Rate 71 08/01/2011 [facility] Systolic (mm Hg) 109 08/01/2011 [facility] Respitory Rate 20 08/01/2011 [facility] Temperature Oral (F) 97.4 F 08/01/2011 [facility] Diastolic (mm Hg) 56 08/01/2011 [facility] Respitory Rate 18 08/01/2011 [facility] Systolic (mm Hg) 92 08/01/2011 [facility] Heart Rate 70 08/01/2011 [facility] Temperature Oral (F) 98.2 F 08/01/2011 [facility] Weight 81.364 07/28/2011 [facility] Height 157.48 cm 07/28/2011 [facility] Weight 81.364 07/27/2011 [facility] Height 157.48 cm 07/27/2011 [facility] Encounters Location Location Details Encounter Type Encounter Number Reason For Visit Attending Provider ADM Date DC Date Status Source [facility] Inpatient [id number] CHEST PAIN CASTILLOJazzy GOMEZ 07/27/2011 08/01/2011 Active [facility] Emergency [id number] ZACHARY YEUNG 04/01/2013 04/01/2013 Discharged [facility] OD [id number] 719.4 - PAIN IN JOINT MILLIE LYONS 07/24/2013 07/24/2013 Active ASHLEY Degroot [facility] [id number] Susi Stanford 03/05/2014 03/06/2014 [facility] Outpatient [id number] Ciara Cardoso 09/19/2018 Active [facility] Outpatient [id number] Ciara Cardoso 09/19/2018 09/20/2018 [facility] Outpatient [id number] Ciara Cardoso 09/22/2018 09/23/2018 [facility] Outpatient [id number] Dasha Canchola 10/09/2018 Active [facility] Outpatient [id number] Ciara Cardoso 10/09/2018 10/10/2018 Medical [facility] Outpatient [id number] Ciara Osunaero 10/15/2018 10/16/2018 [facility] Outpatient [id number] Ciara Cardoso 10/20/2018 Active [facility] Outpatient [id number] Ciara Cardoso 10/20/2018 Active [facility] Outpatient [id number] Ciara Osunaero 10/20/2018 10/21/2018 [facility] Pre-Reg [id number] Ciara Cardoso 10/20/2018 10/20/2018 [facility] Outpatient [id number] Zhchiao Renetta 11/28/2018 Active [facility] Pre-Reg [id number] Zhchiao Renetta 11/28/2018 11/28/2018 Medical [facility] Outpatient [id number] Ciara Cardoso 01/19/2019 Active [facility] Outpatient [id number] Ciara Cardoso 01/19/2019 01/20/2019 [facility] Phone Message [id number] 01/27/2019 01/29/2019 [facility] Internal Medicine [facility] Phone Message [id number] 04/07/2019 04/09/2019 [facility] Outpatient [id number] Ciara Cardoso 04/21/2019 Active [facility] Phone Message [id number] 05/25/2019 05/27/2019 [facility] Internal Medicine [facility] Phone Message [id number] 07/08/2019 07/10/2019 [facility] Procedures Procedure Code Date Perfomer Comments Source Bone density scan<sup>1</sup> [id number] 10/15/2018 1. Osteoporosis of the left femoral neck. 2. Osteopenia of the total left hip. 3. Osteopenia of the lumbar spine. [facility] Mammogram<sup>2</sup> [id number] 10/15/2018 There is no mammographic evidence of malignancy. A 1 year screening mammogram is recommended.(10/16/2019) [facility] Diabetic Retinopathy [facility] 7 field stere oscopic fundus photography<sup>3, 4</sup> [id number] 10/08/[address] Ronak Lott i s retinal specialist. [facility] Diabetic Retinopathy Study 7 field stere oscopic fundus photography<sup>1, 2</sup> [id number] 10/08/[address] Ronak valdez retinal specialist. [facility] Colonoscopy<sup>5</sup> [id number] 06/24/2014 Per patient it was ok. [facility] Colonoscopy<sup>3</sup> [id number] 06/24/2014 Per patient it was ok. [facility] Colonoscopy<sup>1</sup> [id number] 06/24/2014 Per patient it was ok. Medical [facility] Emergency department visit for the evalu ation and management of a patient, which requires these 3 sullivan components: A detailed history; A detailed examination; and Medical decision making of moderate complexity. Counseling and/or coordination of care with o [id number] 04/01/2013 [facility] Therapeutic, prophylactic, or diagnostic injection (specify substance or drug); subcutaneous or intramuscular [id number] 04/01/2013 [facility] Hysterectomy<sup>6</sup> [id number] 06/24/1979 Due to fibroids Medical [facility] Hysterectomy<sup>4</sup> [id number] 06/24/1979 Due to fibroids [facility] Hysterectomy<sup>2</sup> [id number] 06/24/1979 Due to fibroids Medical [facility] Appendectomy [id number] Medical [facility] Cholecystectomy [id number] Medical [facility] Tubal ligation [id number] Medical [facility] Appendectomy [id number] [facility] Cholecystectomy [id number] [facility] Tubal ligation [id number] [facility] Assessment and Plan No Data Provided for This Section Plan of Care No Data Provided for This Section Social History Social History Date Source Social History TypeResponse Alcohol Past Smoking Status Former smoker; Type: Cigarettes; Exposure to Tobacco Smoke None; Cigarette Smoking Last 365 Days No; Reg Smoking Cessation Counseling No entered on: 01/19/19 09/19/2018 [facility] Social History TypeResponse Alcohol Past Smoking Status Former smoker; Type: Cigarettes; Exposure to Tobacco Smoke None; Cigarette Smoking Last 365 Days No; Reg Smoking Cessation Counseling No entered on: 10/09/18 09/19/2018 [facility] Family History No Data Provided for This Section Advance Directives No Data Provided for This Section Functional Status No Data Provided for This Section
--- OUTSIDE RECORDS SUMMARY | 2020-05-27 22:04 | XMS REPORT | Clinical Summary ---
Author Author ROCK [facility] Address Unknown Phone Unavailable Care Team Providers Care Ios Developer Name Role Phone Pcp, No PCP Unavailable [...] 03/01/2020 Orders Only Cardiology 03/01/2020 Travel after 05/27/2019 Social History Date Tobacco Use Types Packs/Day [...] 65+ YRS (1 2018 of 1 - [id number]) Medicare IPPE (WELCOME TO 06/24/2019 MEDICARE) [...] ms QTC Calculatio n(Bazett) 495 ms P Clinton 62 degrees R Clinton 45 degrees T Clinton -5 degrees Normal sinus rhythm Normal ECG No previous ECGs available ECG 12-LEAD Routine 03/03/2020 2:59 PM CDT BASIC METABOLIC PANEL (7) Routine 03/03/2020 2:58 PM CDT HEMOGLOBIN Routine 03/03/2020 2:58 PM CDT SARS-COV2/RT-PCR ([facility] & Routine 03/03/2020 Estefany trujillo for viral REF LABS) 2:58 PM CDT disease after 05/27/2019 Results * TRANSFUSION SERVICE REPORT - SCAN (03/05/2020 6:04 PM CDT) Narrative Performed At This result has an attachment that is n ot available. * POC-Potassium (03/04/2020 1:02 PM CDT) Only the most recent of 2 results within the time period is included. [facility] POC-Potassium 3.2 (L)Comment: : TESTED AT 3.6 - 5.5 meq/L C [facility] [address] [place] [address] 084[address]: Salesperson Surgical Appliances/Composite Technician ID [facility] = [id number] for BAGUNDOL ARNOLD Specimen Blood Performing Organization Address [facility] one Number [address] [phone] [place] [address] * POC-Glucose meter (03/04/2020 6:52 AM CDT) [facility] POC-Glucose 91Comment: : TESTED AT [facility] 70 - 110 mg/dL C [facility] Meter [address] [place] [address] 79186: Salesperson Surgical Appliances/Composite Technician ID [facility] = [id number] for ARNOLD MARTINEZ Specimen Blood Performing Organization Address [facility] one Number [address] [phone] [address] * Type and screen, automated (03/04/2020 6:43 AM CDT) Pathologist [facility] ABO/RH O [facility] Ab Scrn NEGATIVE [facility] Specimen Blood Performing Organization Address City/[facility] Ph one Number [address] [address] [phone] [facility] * CBC with platelet count + automated diff (03/04/2020 6:43 AM CDT) Pathologist [facility] WBC 10.3 3.5 - 10.5 K/L [facility] RBC 3.99 3.93 - 5.22 M/L [facility] Hemoglobin 11.0 (L) 11.2 - 15.7 GM/DL [facility] Hematocrit 34.8 34.1 - 44.9 % [facility] MCV 87.2 79.4 - 94.8 fL [facility] MCH 27.6 25.6 - 32.2 pg [facility] MCHC 31.6 (L) 32.2 - 35.5 GM/DL [facility] RDW 17.0 (H) 11.7 - 14.4 % [facility] Platelets 312 150 - 450 K/CU MM [facility] MPV 9.8 9.4 - 12.3 fL [facility] nRBC 0 0 - 0 /100 WBC [facility] % Neutros 73 % [facility] % Lymphs 17 % [facility] % Monos 5 % [facility] % Eos 4 % [facility] % Baso 1 % [facility] # Neutros 7.52 (H) 1.56 - 6.13 K/L [facility] # Lymphs 1.71 1.18 - 3.74 K/L [facility] # Monos 0.56 (H) 0.24 - 0.36 K/L [facility] # Eos 0.37 (H) 0.04 - 0.36 K/L [facility] # Baso 0.11 (H) 0.01 - 0.08 K/L [facility] Immature 1 0 - 1 % [facility] Specimen Blood Performing Organization Address City/State/Zipcode Ph one Number [facility] [address] [place], [place] [address] [facility] * aPTT (03/04/2020 6:43 AM CDT) PTT 31.4 22.5 - 36.0 seconds [facility] Specimen Blood Performing Organization Address [facility] Ph one Number [address] [facility] * Prothrombin time/INR (03/04/2020 6:43 AM CDT) Protime 12.9 11.9 - 14.2 seconds [facility] INR 1.00 <=5.90 [facility] Specimen Blood Narrative Performed At Effective 11/19/2018: PT Reference Range Change [facility] New: 11.9-14.2 Previous: 11.7-14.7 [facility] MEDICAL JOSE TER RECOMMENDED COUMADIN/WARFARIN INR THERA PY RANGES STANDARD DOSE: 2.0-3.0 Includes: PROP HYLAXIS for venous thrombosis, systemic embolization; TREATMENT for venous thro mbosis and/or pulmonary embolus. HIGH RISK: Target INR is 2.5-3.5 for pa tients wiht mechanical heart valves. Performing Organization Address [facility] one Number [address] [facility] * Phosphorus (03/04/2020 6:43 AM CDT) Phosphorus 2.4 2.3 - 4.7 mg/dL [facility] Specimen Blood Narrative Performed At Salesperson Surgical Appliances ID - [facility] Performing Organization Address City/[facility] Ph one Number [address] [facility] * Magnesium (03/04/2020 6:43 AM CDT) Magnesium 1.8 1.6 - 2.6 mg/dL [facility] Specimen Blood Narrative Performed At Salesperson Surgical Appliances ID - [facility] Performing Organization Address City/[facility] Ph one Number [facility] [address] [place], [place] [address] [facility] * Basic Metabolic Panel (03/04/2020 6:43 AM CDT) Only the most recent of 2 results within the time period is included. Sodium 136 136 - 145 meq/L [facility] Potassium 2.7 (L) 3.5 - 5.1 meq/L [facility] Chloride 100 98 - 107 meq/L [facility] CO2 28 22 - 29 meq/L [facility] BUN 17 7 - 21 mg/dL [facility] Creatinine 2.18 (H) 0.57 - 1.25 mg/dL [facility] Glucose 93 70 - 105 mg/dL [facility] Calcium 8.7 8.4 - 10.2 mg/dL [facility] EGFR 22Comment: ESTIMATED GFR IS mL/min/1.73 sq m [facility] NOT ACCURATE CREATININE [facility] CLEARANCE IN PREDICTING [facility] GLOMERULAR FILTRATION RATE. ESTIMATED GFR IS NOT APPLICABLE FOR DIALYSIS PATIENTS. Specimen Blood Narrative Performed At Salesperson Surgical Appliances ID - [facility] Performing Organization Address City/[facility] Ph one Rashida [address] [address] [facility] * ECG 12 lead (03/03/2020 2:59 PM CDT) Specimen Narrative Performed At Ventricular Rate 87 BPM GE MUSE Atrial Rate 87 BPM P-R Interval 194 ms QRS Duration 82 ms Q-T Interval 412 ms QTC Calculation(Bazett) 495 ms P Clinton 62 degrees R Clinton 45 degrees T Clinton -5 degrees Normal sinus rhythm Normal ECG No previous ECGs available Confirmed by MD STEFANIA, EVITA Chappell ([id number]) on 03/05/2020 8:24:45 AM Procedure Note Interface, External Ris In - 03/05/2020 8:24 AM CDT Ventricular Rate 87 BPM Atrial Rate 87 BPM P-R Interval 194 ms QRS Duration 82 ms Q-T Interval 412 ms QTC Calculation(Bazett) 495 ms P Clinton 62 degrees R Clinton 45 degrees T Clinton -5 degrees Normal sinus rhythm Normal ECG No previous ECGs available Confirmed by MD STEFANIA, EVITA Chappell ([id number]) on 03/05/2020 8:24:45 AM Performing Organization Address City/State/Zipcode Ph one Number GE MUSE * SARS-CoV2/RT-PCR ([facility] & Ref Labs) (03/03/2020 2:58 PM CDT) SARS-COV2/RT-PC Negative Not Detected, [facility] R Negative, See [facility] external report for [facility] linked test SARS-COV-2 [facility] IRVIN [facility] PERFORMING LAB HEALTH [facility] Specimen Other - Nasopharyngeal wall structure (body structure) Narrative Performed At Negative result for this test determine s that SARS-CoV-2 RNA was not present in [facility] the specimen above the Limit of Detecti on (LOD). However, Negative results do [facility] not preclude SARS-CoV-2 infection and s [...] the Act. Fact Sheet for Healthcare Providers: https://www.CC video/sites/default/files/product/documents/Fact_Sheet_HC_Provi nyak_Nfre_TTUF-NgL-5.pdf Fact Sheet for Healthcare Patients: https://www.CC video/sites/default/files/product/documents/Fact_Sheet_Patients _Qcjw_ALXR-CdG-9.pdf Performing Laboratory: [address] [place] [address] Performing Organization Address [facility] Ph one Number [address] [facility] * Hemoglobin (03/03/2020 2:58 PM CDT) Hemoglobin 11.5 11.2 - 15.7 GM/DL [facility] Specimen Blood - Entire left upper arm (body structure) Narrative Performed At Salesperson Surgical Appliances ID - [id number] [facility] Performing Organization Address City/[facility] Ph one Number [address] [facility] after 05/27/2019 Insurance Type Payer Benefit Subscriber ID Effective Phone Address Plan / Dates Group Medicaid Contracted MEDICAID - MEDICAID MGD [facility] [id number] 20-P CARE COMM STAR resent PLAN [facility] [id number] 2019-P MEDICARE MGD CARE MEDICARE resent [place]MO (Home) [place] [address] Advance Directives For more information, please contact: [phone] Patient Drapery Cutter Machine Explanation Type Date Recorded [email or web address] Power of Marinator 03/04/2020 12:00 AM
--- OUTSIDE RECORDS SUMMARY | 2020-05-27 22:07 | XMS REPORT | Continuity of Care Document ---
Author Author [facility] t Organization [facility] Address [address] [place] [address] Phone Unavailable Care Team Providers Care Protection Mgr Name Role Phone Satya MARTINEZ PCP Cornelius Bojorquez MD Attphys [phone] Dewayne Schaeffer Attphys Unavailable Cornelius Bojorquez MD Attphys [phone] Valeria KOHLER, Jamar Ramírez Attphys Eagle KOHLER, Briseida Chaudhary Attphys [phone] CORNELIUS BOJORQUEZ Attphys Unavailable Ector LOVELACE, [place]ford Attphys Chayito GANDHI Attphys Unavailable EHSAN BAE Attphys Unavailable JOSR SAENZ Attphys Unavailable CELENA CHRISTENSEN Attphys Unavailable Delilah Cardoso Attphys Sunni GORDON Attphys Unavailable Shelton Jackson Attphys Yari Stanford Attphys CORNELIUS BOJORQUEZ YAQUELIN Admphys Unavailable CELENA CHRISTENSEN Admphys Unavailable Sunni GORDON Admphys Unavailable Payers Payer Name Policy Type Policy Number Effective Date Expiration Date S rahel [facility] [id number] 2019 00:00 :00 [facility] [id number] 2018 00:00:00 2019 00:00:00 [facility] MEDICAID - MEDICAID MGD 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 [id number] 2019- PresentMedicaid Contracted [id number] 2019 00:00:00 [facility] - MEDICARE MGD CAREUNI ESTER MEDICARE [id number] 2019-Present [id number] 2019 00:00:00 [facility] Problems Condition Name Condition Details Condition [...] - PAIN IN JOINT Active 07/24/2013 [facility] [place] [facility] Active 2013-07-24 00:01:00 2013-07-30 08:00:00 Stevo Sales SORE THROAT SORE THROAT Active 04/01/2013 [facility] Active 2013-04-01 00:00:00 2013-04-01 11:50:00 [facility] CHEST PAIN CHES T PAIN Active 07/27/2011 [facility] Active 2011-07-27 13:30:00 2011-08-07 13:33:00 [facility] HTN - Hypertension HTN - Hypertension Active 01/22/2001 Problem 08/03/2011 [facility] Problem Active 2001-01-22 00:00:00 2011-08-03 09:48:46 [facility] Cerebrovascular accident (CVA) CVA (cerebral vascular accident) Pro blem Active [facility] Dehydration Dehydration Problem Active [facility] Acute renal failure superimposed on chronic kidney dis ease Renal failure (ARF), acute on chronic Problem Active [facility] Acute on chronic renal insufficiency Acute on chronic renal insufficiency Problem Active [facility] 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 Hypoglycemia secondar y to sulfonylurea Problem Active [facility] Constipation Problem Active [facility] Pneumonia due to severe acute respiratory syndrome coronavir us 2 (SARS-CoV-2) Problem Active [facility] Urinary tract infection Problem Active [facility] Cerebrovascular disease (disorder) Cerebrovascular disease (disorder) [facility] Active 2019-07-12 00:50:24 [facility] Finding of body mass index (finding) Finding of body mass index (finding) Active Problem 07/12/2019 [facility] Problem Active 2019-07-12 00:50:24 [facility] Hypertensive disorder, systemic arterial (disorder) Hypertensive disorder, systemic arterial (disorder) Active [facility]12[facility] Problem Active 2019-07-12 00:50:24 [facility] Left hemiparesis (disorder) Le ft hemiparesis (disorder) Active Problem 07/12/2019 [facility] Problem Active 2019-07-12 00:50:24 [facility] Mixed hyperlipidemia (disorder) Mixed hyperlipidemia (disorder) Active Problem 07/12/2019 [facility] Problem Active 2019-07-12 00:50:24 [facility] Shoulder pain (finding) Shou lder pain (finding) Active Problem 07/12/2019 [facility] Problem Active 2019-07-12 00:50:24 Stevo Sales Diabetes mellitus type 2 (disorder) Diabetes mellitus type 2 (disorder) Active Problem 11/30/2018 [facility] Problem Active 2018-11-30 21:55:37 Kai Sales Unsteady when walking (finding) Unsteady when walking (finding) Active Problem 07/12/2019 [facility] Problem Active 2019-07-12 00:50:24 Stevo Sales Vitamin D deficiency (disorder) Vitamin D deficiency (disorder) Active Problem 07/12/2019 Medical [facility] Problem Active 2019-07-12 00:50:24 Stevo Sales [...] Problem 04/04/2013 [facility] Problem Active 2013-04-04 05:57:39 Ak heidi Sales DM - Diabetes mellitus DM [...] Problem 04/04/2013 [facility] Problem Active 2013-04-04 05:57:39 [facility] Hyperlipidemia Hype rlipidemia Active Problem 04/04/2013 [facility] Problem Active 2013-04-04 05:57:39 [facility] CHEST PAIN NOS CHES T PAIN NOS Active [facility] Active 2011-08-07 13:33:00 [facility] Discharge Diagnosis: Abdominal pain Discharge Diagnosis: Abdominal pain 03/06/2014 03/08/2014 [facility] Problem 2014-03-06 05:00:00 2014-03-08 21:25:53 2014-03-08 21:25:53 [facility] Discharge Diagnosis: Acute lower urinary tract infecti on Discharge Diagnosis: Acute lower urinary tract infection 03/06/2014 03/08/2014 [facility] Problem 2014-03-06 05:00:00 2014-03-08 21:25:53 2014-02 21:25:53 [facility] Allergies, Adverse Reactions, Alerts Allergy Name Allergy Type Status Severity Reaction(s) Onset Date Inacti ve Date Treating Clinician Comments Source Peanut Propensity to adverse reactions Active Swelling 2020-02 00:00:00 [facility] I[facility] Propensity to adverse reactions Active Othe r (See Comments) 2020-01-28 00:00:00 unsure [facility] iodine DA Active U 2019-07-14 00:00:00 [facility] diphenhydramine DA Active U 2019-07-14 00:00:00 [facility] vancomycin DA Active U 2019-07-14 00:00:00 [facility] tomato FA Active U 2019-07-14 00:00:00 [facility] Diphenhydramine Allergy to substance Active Severe RASH 2019-04-17 00:00:00 [facility] Tomato Allergy to substance Active Severe RASH/VOMITING 2019-04-17 00 :00:00 [facility] iodine DA Active MO 2016-07-05 00:00:00 [facility] vancomycin DA Active U 2016-07-05 00:00:00 [facility] tomato FA Active U 2016-07-05 00:00:00 [facility] vancomycin vancomycin Active Low Ak morial Henrry iodine iodine Active [facility] Social History Social Habit Start Date Stop Date Quantity Comments Source History SDOH Alcohol Std Drinks [facility] History SDOH Alcohol Binge [facility] Tobacco use and exposure 2020-03-04 00:00:00 2020-03-04 00:00:00 Pedro murphy used [facility] Alcohol intake 2020-03-04 00:00:00 2020-03-04 00:00:00 Current non-drinker of alcohol (finding) [facility] Alena r History SDOH Alcohol Frequency 2020-03-01 00:00:00 2020-03-01 00:00:0 0 1 [facility] Tobacco Comment 2020-03-01 00:00:00 2020-03-01 00:00:00 occassio nal smoker for 4 years only [facility] Social History 2018-09-19 16:43:09 2018-09-19 16:43:09 [facility] Sex Ass[birth year] At 1955 00:00:00 1955 00:00:00 Female [facility] Smoking Status Start Date Stop Date Source Former smoker 2020-03-04 00:00:00 2020-03-04 00:00:00 [facility] Medications Ordered Medication Name Filled Medication Name Start Date Stop Da te Current Medication? Ordering Clinician Indication Dosage Frequency Signature (SIG) Comments Components Source Cefuroxime Axetil (Cefuroxime) 250 Mg TABLET Cefuroxim e Axetil (Cefuroxime) 250 Mg TABLET 2020-04-10 15:15:00 Yes 500 Every 12 Hours [facility] amLODIPine (NORVASC) 5 MG tablet 2020-03-04 17:24:01 Yes 5mg QD Take 5 mg by mouth daily. [facility] pantoprazole (PROTONIX) 40 MG tablet 2020-03-04 17:24:01 Ye s 40mg QD Take 40 mg by mouth daily. [facility] aspirin 81 MG EC tablet 2020-03-04 17:24:01 Yes 81mg QD Take 81 mg by mouth daily. [facility] atorvastatin (LIPITOR) 80 MG tablet 2020-03-04 17:24:01 Yes 80mg QD Take 80 mg by mouth daily. [facility] QUEtiapine (SEROQUEL) 25 MG tablet 2020-03-04 17:24:01 Yes 25mg QD Take 25 mg by mouth nightly. [facility] clopidogreL (PLAVIX) 75 mg tablet 2020-03-04 17:24:01 Yes 75mg QD Take 75 mg by mouth daily. [facility] ergocalciferol (VITAMIN D2) 1,250 mcg (50,000 unit) capsule 2020-03-04 17:24:01 Yes 33414O Q7D Take 50,000 Units by mouth on ce a week. [facility] traMADoL (ULTRAM) 50 mg tablet 2020-03-04 00:00:00 2020-03-09 23 :59:00 No 50mg Take 1 tablet (50 mg total) by mouth every 6 (six) hours as needed for Pain for up to 5 days. Max Daily Amount: 200 mg [facility] Metoprolol Tartrate 25 mg oral tablet 2019-05-25 16:19:08 Y es = 0.5 tab, PO, BID, # 90 tab, [id number] Furosemide 20 MG Oral Tablet 2019-04-08 02:10:03 Yes = 1 tab, PO, Daily, # 90 tab, STOP LISINOPRIL HCTZ, [id number] atorvastatin 80 mg oral tablet 2019-01-29 02:40:00 Yes 80 mg = 1 tab, PO, Bedtime, # 90 tab, 1 Refill(s), [id number] amLODIPine 5 mg oral tablet 2019-01-28 21:42:09 Yes = 1 tab, PO, BID, # 180 tab, Refill(s) 1, [id number] amLODIPine 5 mg oral tablet 2019-01-28 21:36:00 No 5 mg = 1 tab, PO, BID, # 60 tab, 1 Refill(s), [id number] NIFEdipine 30 mg oral tablet, extended release 2019-01-28 02:09: 00 No 30 mg = 1 tab, PO, Daily, # 90 tab, 1 Re fill(s), Pharmacy: [facility] #[id number] [facility] pantoprazole 40 mg oral enteric coated tablet 2019-01-21 02:07:0 0 Yes See Instructions, 1 tab PO a day only 2 times a week, # 90 tab, 0 Refill(s), called to pharmacy [facility] Ergocalciferol [id number] UNT Oral Capsule 2019-01-19 16:11:16 Y es 50,000 IntlUnit = 1 cap, PO, qWeek, # 12 cap, 2 Refill(s), Pharmacy: [facility] #[id number] [facility] Alendronic acid 70 MG Oral Tablet 2019-01-19 16:10:38 No 70 mg = 1 tab, PO, Q7D, with 6 to 8 ounces plain water, at least 30 minutes before first food, beverage, or medication of the day, # 12 tab, 3 Refill(s), Pharmacy: [facility] #[id number] [facility] atorvastatin 80 mg oral tablet 2019-01-19 16:10:00 Yes 80 mg = 1 tab, PO, Daily, # 90 tab, 1 Refill(s), Pharmacy: [facility] #[id number] [facility] lisinopril 30 mg oral tablet 2019-01-19 16:10:00 Yes 30 mg = 1 tab, PO, Daily, # 90 tab, 1 Refill(s), Pharmacy: [facility] #[id number], stop lisinopril hctz [facility] Furosemide 20 MG Oral Tablet 2019-01-19 16:10:00 Yes 20 mg = 1 tab, PO, Daily, # 90 tab, 0 Refill(s), Pharmacy: [facility] #[id number], stop lisinopril hctz [facility] atorvastatin 80 mg oral tablet 2019-01-19 15:36:00 No 80 mg = 1 tab, PO, Daily, # 90 tab, 3 Refill(s) Cynthia kwon [facility] Ergocalciferol 57120 UNT Oral Capsule 2018-10-21 21:15:00 Y es 50,000 IntlUnit = 1 cap, PO, qWeek, # 12 cap, 2 Refill(s), Pharmacy: [facility] [id number] [facility] citalopram 10 mg oral tablet 2018-10-20 17:05:00 Yes 10 mg = 1 tab, PO, Daily, # 30 tab, 1 Refill(s), Pharmacy: [facility] [id number] [facility] Alendronic acid 70 MG Oral Tablet 2018-10-20 17:03:00 Yes 70 mg = 1 tab, PO, Q7D, with 6 to 8 ounces plain water, at least 30 minutes before first food, beverage, or medication of the day, # 12 tab, 3 Refill(s) [facility] OneTouch Ultra Blue Blood Glucose Test Strip 2018-10-20 16:57:00 Yes , # 270 ea, Insulin dependent, Does not use insulin pump, Last DM eval date 10/20/18, 3 Refill(s), Pharmacy: [facility] [id number] [facility] atorvastatin 40 mg oral tablet 2018-10-20 16:56:30 Yes 40 mg = 1 tab, PO, Bedtime, # 90 tab, 1 Refill(s), Pharmacy: [facility] [id number] [place] [address] Hydrochlorothiazide 12.5 MG / Lisinopril 20 MG Oral Tablet 2018-10-20 16:53:00 Yes 1 tab, PO, Daily, # 90 tab, 1 Refill(s), Pharmacy: [facility] [id number], stop losartan hctz and amlodipine. [facility] atorvastatin 40 mg oral tablet 2018-10-09 19:40:00 Yes 40 mg = 1 tab, PO, Bedtime, # 90 tab, 1 Refill(s), Pharmacy: [facility] [id number] [facility] Trazodone Hydrochloride 50 MG Oral Tablet 2018-09-19 21:12:00 Yes 50 mg = 1 tab, PO, Bedtime, after meals for insomnia, # 30 tab, 1 Refill(s), Pharmacy: [facility] [id number] [facility] orial Sundance gabapentin 300 MG Oral Capsule 2018-09-19 17:33:00 Yes 300 mg = 1 cap, PO, BID, # 60 cap, 1 Refill(s), Pharmacy: [facility] [id number] [facility] metoprolol tartrate 25 mg oral tablet 2018-09-19 16:44:00 Y es 12.5 mg = 0.5 tab, PO, BID, 0 Refill(s) [facility] Hydrochlorothiazide 12.5 MG / Losartan Potassium 50 MG Oral Tablet 2018-09-19 16:44:00 Yes 1 tab, PO, Daily, # 90 tab, 0 Refill(s) Stevo Sales amLODIPine 10 mg oral tablet 2018-09-19 16:44:00 Yes 10 mg = 1 tab, PO, Daily, # 90 tab, 1 Refill(s) Jose Guadalupegustavo kwon Henrry Aspirin Enteric Coated 325 mg oral delayed [...] 18 unit, SUB-Q, Bedtime, 0 Re fill(s) [facility] Henrry atorvastatin 40 mg oral tablet 2018-09-19 16:44:00 Yes 40 mg = 1 tab, PO, Bedtime, # 90 tab, 1 Refill(s) Stevo Sales Acetaminophen 325 MG / Hydrocodone Bitartrate 5 MG Oral Tabl et 2014-03-06 07:48:00 Yes 1 tab, PO, Q4H, for pain, # 1 2 tab, 0 Refill(s) [facility] Henrry ciprofloxacin 500 mg oral tablet 2014-03-06 07:48:00 Yes 500 mg = 1 tab, PO, Q12H, # 20 tab, 0 Refill(s) [facility] adisal Henrry Zofran 2014-03-06 03:16:00 No 4 mg, Route: IVP, Drug form: INJ, ONCE, Dosing Weight 78.636, kg, Priority: STAT, Start date: 03/05/14 22:16:00, Stop date: 03/05/14 22:16:00 Stevo tracee Morphine 2014-03-06 03:15:00 No 4 mg, Route: IVP, Drug form: INJ, ONCE, Dosing Weight 78.636, kg, Priority: STAT, Start date: 03/05/14 22:15:00, Stop date: 03/05/14 22:15:00 [facility] oral tablet 2013-04-01 18:36:01 Yes Bobbi Talib Aldridge 10 mg, 1 tab, PO, Daily, 30 tab, Substit ution Allowed, TAB [facility] metFORmin 500 mg oral tablet 2013-04-01 18:35:52 Yes Bobbi Talib Aldridge 500 mg, 1 tab, PO, BID, 30 tab, Substitu tion Allowed [facility] Insulin regular 2013-04-01 17:23:00 No Bobbi Aldridge 8 unit, Route: SUB-Q, ONCE, Dosing Weight 79.091, kg, Start date: 04/01/13 12:23:00, Stop date: 04/01/13 12:23:00 [facility] dexamethasone 2013-04-01 16:36:00 No Bobbi lees 10 mg, Route: IM, ONCE, Dosing Weight 79.091, kg, Priority: STAT, Start date: 04/01/13 11:36:00, Stop date: 04/01/13 11:36:00 [facility] 2013-04-01 16:35:00 No Bobbi Franklin s 60 mg, Route: IM, Drug form: INJ, ONCE, Dosing Weight 79.091, kg, Priority: STAT, Start date: 04/01/13 11:35:00, Stop date: 04/01/13 11:35:00 [facility] Bicillin L-A 2013-04-01 16:35:00 No Bobbi Lawrence ards 1,200,000 unit, 2 mL, Route: IM, Drug form: INJ, ONCE, Dosing Weight 79.091, kg, Start date: 04/01/13 11:35:00, Stop date: 04/01/13 11:35:00(penicillin G benzathine 1.2 MilUnit/2 ml INJ) (Same as: Bicillin L-A, Permapen) NOT For Daily Use [facility] acetaminophen 2011-08-01 01:22:00 No Caden Whiter 500 mg, 1 tab, Route: PO, Drug form: TAB, Q6H, PRN Pain, Start date: 07/31/11 19:22:00, Duration: 30 day, Stop date: 08/30/11 19:21:00 [facility] Metoprolol Succinate ER 25 mg oral tablet, extended release 2011-07-30 15:00:00 No Caden Nasim 25 mg, 1 tab, Route: PO, Drug form: ERTAB, Daily, Start date: 07/30/11 9:00:00, Duration: 30 day, Stop date: 08/28/11 9:00:00 [facility] aspirin 325 mg tablet, enteric coated 2011-07-30 15:00:00 No Caden Nasim 325 mg, 1 tab, Route : PO, Drug form: ECTAB, Daily, Start date: 07/30/11 9:00:00, Duration: 30 day, Stop date: 08/28/11 9:00:00 [facility] Saline Flush 0.9% 2011-07-30 03:00:00 No Caden Spencer 5 ml, Route: IVP, Drug Form: INJ, Q12H, Start date: 07/29/11 21:00:00, Duration: 30 day, Stop date: 08/28/11 9:00:00 [facility] simvastatin 2011-07-30 03:00:00 No Caden Nasim 20 mg, 1 tab, Route: PO, Drug form: TAB, Bedtime, Start date: 07/29/11 21:00:00, Duration: 30 day, Stop date: 08/27/11 21:00:00 [facility] Dextrose 50% in Water IV 2011-07-29 23:36:00 No Caden Nasim 50 mL, Route: IVP, PRN, Blood Glucose Results, Start date: 07/29/11 17:36:00, Duration: 30 day, Stop date: 08/28/11 17:35:00 Ak heidi Sales Dextrose 50% in Water IV 2011-07-29 23:35:00 No Caden Nasim 25 mL, Route: IVP, PRN, Blood Glucose Results, Start date: 07/29/11 17:35:00, Duration: 30 day, Stop date: 08/28/11 17:34:00 Ak heidi Sundance metFORmin 500 mg oral tablet 2011-07-29 23:00:00 No Placido eev Nasim 500 mg, 1 tab, Route: PO, Drug form: TAB, BID-Meals, Start date: 07/29/11 17:00:00, Duration: 30 day, Stop date: 08/28/11 8:00:00 [facility] insulin aspart 2011-07-29 22:33:00 No Caden Spencer 4 unit, 0.04 mL, Route: SUB-Q, Drug form: SOLN, TID-Before Meals, PRN Blood Glucose Results, Start date: 07/29/11 16:33:00, Duration: 30 day, Stop date: 08/28/11 16:32:00 [facility] Saline Flush 0.9% 2011-07-29 22:33:00 No Caden Spencer 5 ml, Route: IVP, Drug Form: INJ, PRN, PRN Line Flush, Start date: 07/29/11 16:33:00, Duration: 30 day, Stop date: 08/28/11 16:32:00 [facility] nitroglycerin SL Tab 2011-07-29 22:33:00 No Caden Grov er 0.4 mg, 1 tab, Route: SL, Drug form: TAB, Q5Min, PRN Chest Pain, Start date: 07/29/11 16:33:00, Duration: 3 doses or times, Stop date: Limited # of times [facility] insulin aspart 2011-07-29 22:32:00 No Caden Nasim 2 unit, 0.02 mL, Route: SUB-Q, Drug form: SOLN, TID-Before Meals, PRN Blood Glucose Results, Start date: 07/29/11 16:32:00, Duration: 30 day, Stop date: 08/28/11 16:31:00 [facility] glucagon 2011-07-29 22:32:00 No Caden Spencer 1 mg, Route: IM, Drug form: PDR/INJ, PRN, PRN Blood Glucose Results, Start date: 07/29/11 16:32:00, Duration: 30 day, Stop date: 08/28/11 16:31:00 [facility] atropine 2011-07-29 22:32:00 No Caden Nasim 0.5 mg, 5 mL, Route: IVP, Drug form: INJ, PRN, PRN Bradycardia, Start date: 07/29/11 16:32:00, Duration: 30 day, Stop date: 08/28/11 16:31:00 [facility] Tylenol 2011-07-29 22:32:00 No Caden Spencer 650 mg, 2 tab, Route: PO, Drug form: TAB, Q6H, PRN Pain, Start date: 07/29/11 16:32:00, Duration: 30 day, Stop date: 08/28/11 16:31:00 [facility] Dextrose 50% Syringe 2011-07-29 22:32:00 No Caden Grov er 12.5 gm, Route: IVP, Drug Form: INJ, PRN, PRN Blood Glucose Results, Start date: 07/29/11 16:32:00, Duration: 30 day, Stop date: 08/28/11 16:31:00 [facility] Dextrose 50% Syringe 2011-07-29 22:31:00 No Caden Grov er 25 gm, Route: IVP, Drug Form: INJ, PRN, PRN Blood Glucose Results, Start date: 07/29/11 16:31:00, Duration: 30 day, Stop date: 08/28/11 16:30:00 [facility] Metoprolol Succinate ER 25 mg oral tablet, extended release 2011-07-29 15:00:00 No Palur V Frederick 25 mg, 1 tab, Route: PO, Drug form: ERTAB, Daily, Start date: 07/29/11 9:00:00, Duration: 30 day, Stop date: 08/27/11 9:00:00 [facility] simvastatin 2011-07-29 03:00:00 No Palur V Frederick 20 mg, 1 tab, Route: PO, Drug form: TAB, Bedtime, Start date: 07/28/11 21:00:00, Duration: 30 day, Stop date: 08/26/11 21:00:00 [facility] metFORmin 500 mg oral tablet 2011-07-28 23:00:00 No Palur V Frederick 500 mg, 1 tab, Route: PO, Dr ug form: TAB, BID-Meals, Start date: 07/28/11 17:00:00, Duration: 30 day, Stop date: 08/27/11 8:00:00 [facility] Tylenol 2011-07-28 10:25:00 No Palur Jazzy MajorFrederick 650 mg, 2 tab, Route: PO, Drug form: TAB, Q6H, PRN Pain, Start date: 07/28/11 4:25:00, Duration: 30 day, Stop date: 08/27/11 4:24:00 [facility] Saline Flush 0.9% 2011-07-28 03:00:00 No Caden Nasim 5 ml, Route: IVP, Drug Form: INJ, Q12H, Start date: 07/27/11 21:00:00, Duration: 30 day, Stop date: 08/26/11 9:00:00 [facility] at[facility]ine 2011-07-28 01:19:00 No Caden Spencer 0.5 mg, 5 mL, Route: IVP, Drug form: INJ, PRN, PRN Bradycardia, Start date: 07/27/11 19:19:00, Duration: 30 day, Stop date: 08/26/11 19:18:00 [facility] aspirin 325 mg tablet, enteric coated 2011-07-28 01:00:00 No Caden Nasim 325 mg, 1 tab, Route : PO, Drug form: ECTAB, Q24H, Start date: 07/27/11 19:00:00, Duration: 30 day, Stop date: 08/25/11 19:00:00 [facility] Saline Flush 0.9% 2011-07-28 00:25:00 No Caden Nasim 5 ml, Route: IVP, Drug Form: INJ, PRN, PRN Line Flush, Start date: 07/27/11 18:25:00, Duration: 30 day, Stop date: 08/26/11 18:24:00 [facility] nitroglycerin SL Tab 2011-07-28 00:25:00 No Caden Grov er 0.4 mg, 1 tab, Route: SL, Drug form: TAB, Q5Min, PRN Chest Pain, Start date: 07/27/11 18:25:00, Duration: 3 doses or times, Stop date: Limited # of times [facility] Dextrose 50% Syringe 2011-07-28 00:24:00 No Caden Lujanv er 12.5 gm, 25 mL, Route: IVP, Drug Form: INJ, PRN, PRN Blood Glucose Results, Start date: 07/27/11 18:24:00, Duration: 30 day, Stop date: 08/26/11 18:23:00 [facility] glucagon 2011-07-28 00:24:00 No Caden Whiter 1 mg, Route: IM, Drug form: PDR/INJ, PRN, PRN Blood Glucose Results, Start date: 07/27/11 18:24:00, Duration: 30 day, Stop date: 08/26/11 18:23:00 [facility] insulin aspart 2011-07-28 00:24:00 No Caden Whiter 2 unit, 0.02 mL, Route: SUB-Q, Drug form: SOLN, TID-Before Meals, PRN Blood Glucose Results, Start date: 07/27/11 18:24:00, Duration: 30 day, Stop date: 08/26/11 18:23:00 [facility] Tylenol 2011-07-27 23:44:00 No Cornelius Hendry 1,000 mg, Route: PO, Drug form: TAB, ONCE, PRN Pain, Priority: STAT, Start date: 07/27/11 17:44:00, Stop date: 08/26/11 17:43:00 [facility] metFORmin 500 mg oral tablet 2011-07-27 22:00:40 Yes Palur V Frederick 500 mg, 1 tab, PO, BID-Meals, Substitution Allowed [facility] hydrochlorothiazide-lisinopril 12.5 mg-10 mg oral tablet 2011-07-27 22:00:27 Yes 1 tab, PO, Daily, Substitution A llowed, Maintenance [facility] simvastatin 2011-07-27 22:00:11 Yes Palur V Frederick 20 mg, PO, Bedtime, Substitution Allowed [facility] Vitamin D 50,000 intl units oral capsule 2011-07-27 22:00:01 Yes 50,000 IntlUnit, 1 cap, PO, QFri, Substitution Allowed [facility] ibuprofen 400 mg oral tablet 2011-07-27 21:59:45 Yes 400 mg, 1 tab, PO, TID, PRN, as needed for headache, Substitution Allowed [facility] Saline Flush 0.9% 2011-07-27 20:54:00 No Caden Whiter 5 ml, Route: IVP, Drug Form: INJ, PRN, PRN Line Flush, Start date: 07/27/11 14:54:00, Duration: 24 hr, Stop date: 07/28/11 14:53:00 [facility] aspirin 325 mg tablet 2011-07-27 20:54:00 No Cornelius Hernandez all 325 mg, Route: PO, Drug form: TAB, ONCE, Priority: STAT, Start date: 07/27/11 14:54:00, Stop date: 07/27/11 14:54:00 [facility] Alprazolam Alprazolam Yes 1 Use As Directed [facility] Amlodipine Besylate Amlodipine Besylate Yes 10 Daily [facility] Aspirin Aspirin Yes 81 Daily [facility] Atorvastatin Calcium Atorvastatin Calcium Yes 80 Bedtime [facility] Clonidine Clonidine Yes Every 72 Hours [facility] Clopidogrel Bisulfate (Clopidogrel) 75 Mg TABLET Clopi dogrel Bisulfate (Clopidogrel) 75 Mg TABLET Yes 75 Daily [facility] Famotidine Famotidine Yes 20 Every 48 Hours [facility] Lisinopril (Prinavil / Zestril) 20 Mg TABLET Lisinopri l (Prinavil / Zestril) 20 Mg TABLET Yes 20 Every 12 Hours C [facility] Nifedipine Nifedipine Yes 20 Daily [facility] Pantoprazole Sodium (Protonix) 40 Mg TABLET. Pantopr azole Sodium (Protonix) 40 Mg TABLET. Yes 40 Daily [facility] Quetiapine Fumarate Quetiapine Fumarate Yes 25 Daily [facility] Unk Uti Antibiotic Unk Uti Antibiotic 2019-09-10 00:00:00 No [facility] Rivastigmine Tartrate (Rivastigmine) 6 Mg CAPSULE Rina stigmine Tartrate (Rivastigmine) 6 Mg CAPSULE 2019-09-02 00:00:00 No 6 Twice A Day [facility] Alendronate Sodium Alendronate Sodium 2019-08-11 00:00:00 No 70 Weekly [facility] Aspirin Aspirin 2019-08-11 00:00:00 No 325 Daily [facility] Metoprolol Succinate Metoprolol Succinate 2019-08-11 00:00:00 No 12.5 Twice A Day [facility] Pantoprazole Sodium (Protonix) 40 Mg TABLET. Pantopr azole Sodium (Protonix) 40 Mg TABLET. 2019-08-11 00:00:00 No 40 Daily [facility] Trazodone Hcl Trazodone Hcl 2019-08-11 00:00:00 No 50 Bedtime as needed for Insomnia [facility] Vit D2 86832 Vit D2 [id number] 2019-08-11 00:00:00 No Weekly [facility] Atorvastatin Atorvastatin 2019-04-19 00:00:00 No 80 Daily [facility] Atorvastatin Calcium Atorvastatin Calcium 2019-04-19 00:00:00 No 40 Bedtime [facility] Glipizide Glipizide 2019-04-19 00:00:00 No 2.5 Daily [facility] Hydrochlorothiazide Hydrochlorothiazide 2019-04-19 00:00:00 No 12.5 Daily [facility] Lisinopril Lisinopril 2019-04-19 00:00:00 No 20 Renetta ly [facility] Glipizide Glipizide 2019-01-05 00:00:00 No 5 Daily [facility] Amlodipine Besylate Amlodipine Besylate 2019-01-02 00:00:00 No 5 Daily [facility] Vital Signs Vital Name Observation Time Observation Value Comments Source Body Temperature 2020-04-10 14:59:00 98.4 [degF] [facility] Weight 2020-04-08 21:45:00 122.50 [lb_av] [facility] BMI (Body Mass Index) 2020-04-08 21:45:00 22.4 kg/m2 [facility] Systolic blood pressure 2020-03-04 16:45:00 164 mm[Hg] [facility] Diastolic blood pressure 2020-03-04 16:45:00 77 mm[Hg] [facility] Heart rate 2020-03-04 16:45:00 68 /min [facility] Respiratory rate 2020-03-04 16:45:00 14 /min [facility] Oxygen saturation in Arterial blood by Pulse oximetry 03-04 16:45:00 95 /[facility] Body temperature 2020-03-04 15:45:00 36.44 Terra [facility] Body weight 2020-03-04 06:50:00 51.665 kg [facility] BMI 2020-03-04 06:50:00 20.83 kg/m2 [facility] Body height 2020-03-04 06:47:00 157.5 cm [facility] Weight 2020-01-05 13:29:00 160 [lb_av] [facility] BMI (Body Mass Index) 2020-01-05 13:29:00 29.3 kg/m2 [facility] Weight 2019-11-17 16:33:00 129 [lb_av] [facility] BMI (Body Mass Index) 2019-11-17 16:33:00 23.6 kg/m2 [facility] Body Temperature 2019-09-10 13:23:00 96.7 [degF] [facility] Systolic (mm Hg) 2019-01-19 18:06:00 [place] [facility] Diastolic (mm Hg) 2019-01-19 18:06:00 [facility] Weight 2019-01-19 15:34:00 [facility] Height 2019-01-19 15:34:00 157.48 cm [facility] BMI Calculated 2019-01-19 15:34:00 [facility] Temperature Oral (F) 2019-01-19 15:34:00 98.0 F [facility] Systolic (mm Hg) 2019-01-19 15:34:00 [place] [facility] Diastolic (mm Hg) 2019-01-19 15:34:00 [facility] Respitory Rate 2019-01-19 15:34:00 [facility] Heart Rate 2019-01-19 15:34:00 [facility] BMI Calculated 2018-10-20 16:23:00 [facility] Weight 2018-10-20 16:23:00 [facility] Height 2018-10-20 16:23:00 154.94 cm [facility] Temperature Oral (F) 2018-10-20 16:23:00 97.9 F [facility] Respitory Rate 2018-10-20 16:23:00 [facility] Heart Rate 2018-10-20 16:23:00 [facility] Systolic (mm Hg) 2018-10-20 16:23:00 [place] [facility] Diastolic (mm Hg) 2018-10-20 16:23:00 [facility] Temperature Oral (F) 2018-10-09 19:23:00 98.0 F [facility] Respitory Rate 2018-10-09 19:23:00 [facility] Heart Rate 2018-10-09 19:23:00 [facility] Weight 2018-10-09 19:23:00 [facility] BMI Calculated 2018-10-09 19:23:00 [facility] Systolic (mm Hg) 2018-10-09 19:23:00 [place] [facility] Diastolic (mm Hg) 2018-10-09 19:23:00 [facility] Height 2018-10-09 19:23:00 157.48 cm [facility] Weight 2018-09-19 16:42:00 [facility] Height 2018-09-19 16:42:00 157.48 cm [facility] BMI Calculated 2018-09-19 16:42:00 [facility] Temperature Oral (F) 2018-09-19 16:42:00 98.5 F [facility] Respitory Rate 2018-09-19 16:42:00 [facility] Heart Rate 2018-09-19 16:42:00 [facility] Systolic (mm Hg) 2018-09-19 16:42:00 [place] [facility] Diastolic (mm Hg) 2018-09-19 16:42:00 [facility] Heart Rate 2014-03-06 08:46:00 [facility] Respitory Rate 2014-03-06 08:46:00 [facility] Diastolic (mm Hg) 2014-03-06 08:46:00 [facility] Systolic (mm Hg) 2014-03-06 08:46:00 [place] [facility] Diastolic (mm Hg) 2014-03-06 03:24:00 [facility] Systolic (mm Hg) 2014-03-06 03:24:00 [place] [facility] Heart Rate 2014-03-06 03:24:00 [facility] Respitory Rate 2014-03-06 03:24:00 [facility] Height 2014-03-05 22:44:00 160.02 cm [facility] BMI Calculated 2014-03-05 22:44:00 [facility] Weight 2014-03-05 22:44:00 [facility] Temperature Oral (F) 2014-03-05 22:44:00 98.3 F [facility] Heart Rate 2014-03-05 22:44:00 [facility] Systolic (mm Hg) 2014-03-05 22:44:00 [place] [facility] Respitory Rate 2014-03-05 22:44:00 [facility] Diastolic (mm Hg) 2014-03-05 22:44:00 [facility] Heart Rate 2013-04-01 18:51:00 [facility] Systolic (mm Hg) 2013-04-01 18:51:00 [place] [facility] Diastolic (mm Hg) 2013-04-01 18:51:00 [facility] Respitory Rate 2013-04-01 18:51:00 [facility] Respitory Rate 2013-04-01 15:19:00 [facility] Diastolic (mm Hg) 2013-04-01 15:19:00 [facility] Heart Rate 2013-04-01 15:19:00 [facility] Systolic (mm Hg) 2013-04-01 15:19:00 [place] [facility] Weight 2013-04-01 14:47:00 [facility] Height 2013-04-01 14:47:00 160.02 cm [facility] Respitory Rate 2013-04-01 14:47:00 [facility] Heart Rate 2013-04-01 14:47:00 [facility] Systolic (mm Hg) 2013-04-01 14:47:00 [place] [facility] Diastolic (mm Hg) 2013-04-01 14:47:00 [facility] Temperature Oral (F) 2013-04-01 14:47:00 98.2 F [facility] Heart Rate 2011-08-01 13:57:00 [facility] Temperature Oral (F) 2011-08-01 13:57:00 98.2 F [facility] Respitory Rate 2011-08-01 13:57:00 [facility] Systolic (mm Hg) 2011-08-01 13:57:00 [place] [facility] Diastolic (mm Hg) 2011-08-01 13:57:00 [facility] Diastolic (mm Hg) 2011-08-01 10:00:00 [facility] Heart Rate 2011-08-01 10:00:00 [facility] Systolic (mm Hg) 2011-08-01 10:00:00 [place] [facility] Respitory Rate 2011-08-01 10:00:00 [facility] Temperature Oral (F) 2011-08-01 10:00:00 97.4 F [facility] Diastolic (mm Hg) 2011-08-01 06:00:00 [facility] Respitory Rate 2011-08-01 06:00:00 [facility] Systolic (mm Hg) 2011-08-01 06:00:00 [place] [facility] Heart Rate 2011-08-01 06:00:00 [facility] Temperature Oral (F) 2011-08-01 06:00:00 98.2 F [facility] Weight 2011-07-28 00:35:00 [facility] Height 2011-07-28 00:35:00 157.48 cm [facility] Weight 2011-07-27 20:46:00 [facility] Height 2011-07-27 20:46:00 157.48 cm [facility] Procedures Procedure Date / Time Performed Performing Clinician [facility] e Computed tomography of brain without radiopaque contrast 2020-03 00:00:00 [facility] TRANSFUSION SERVICE REPORT - SCAN 2020-03-05 18:04:26 Provid er, Default Scanning [facility] CREATION,A-V FISTULA 2020-03-04 13:46:00 Yaquelin Bojorquez [facility] POCT-POTASSIUM 2020-03-04 13:02:00 Yaquelin Bojorquez [facility] POCT-GLUCOSE METER 2020-03-04 06:52:00 Yaquelin Bojorquez [facility] POCT-POTASSIUM 2020-03-04 06:49:00 Yaquelin Bojorquez [facility] BASIC METABOLIC PANEL (7) 2020-03-04 06:43:00 ManekMichael Edw bruce [facility] MAGNESIUM 2020-03-04 06:43:00 Manek, Michael Franklin [facility] PHOSPHORUS 2020-03-04 06:43:00 Manek, [facility] PROTHROMBIN TIME/INR 2020-03-04 06:43:00 Manek, Michael Franklin C [facility] APTT 2020-03-04 06:43:00 Manek, [facility] TYPE AND SCREEN, AUTOMATED 2020-03-04 06:43:00 Manek, Michael Hernandez lazaro [facility] CBC W/PLT COUNT & AUTO DIFFERENTIAL 2020-03-04 06:43:00 ManekSunni [facility] ECG 12-LEAD 2020-03-03 14:59:08 Unknown, Hl7 Doctor [facility] SARS-COV2/RT-PCR ([facility]) 2020-03-03 14:58:00 Sanford Barney [facility] HEMOGLOBIN 2020-03-03 14:58:00 Coy Magana [facility] BASIC METABOLIC PANEL (7) 2020-03-03 14:58:00 Coy Magana nd [facility] Computed tomography of brain without radiopaque contrast 2019-12 00:00:00 [facility] CT of abdomen and pelvis without contrast 2020-01-05 00:00:00 [facility] Computed tomography of chest without contrast 2020-01-05 00:00:0 [address] [facility] [address] of abdomen and pelvis without contrast 2019-11-17 00:00:00 [facility] PERFORMANCE OF URINARY FILTRATION, <6 HRS/DAY 2019-09-04 00:00:0 0 [facility] Computed tomography of brain without radiopaque contrast 202 00:00:00 MEENAKSHI GANDHI [facility] CT of abdomen and pelvis without contrast 2019-08-25 00:00:00 [facility] EGD PLACE GASTROSTOMY TUBE 2019-08-10 00:00:00 C [facility] HEMODIALYSIS ONE EVALUATION 2019-08-10 00:00:00 [facility] INSERTION OF FEEDING DEVICE INTO STOMACH, PERC APPROACH 00:00:00 [facility] Computed tomography of chest without contrast 2019-07-10 00: 00:00 ABDIRASHID ALFORD [facility] Computed tomography of abdomen without contrast 2019-07-10 00:00 :00 [facility] Computed tomography of brain without radiopaque contrast 202 00:00:00 NADIA SOW [facility] Computed tomography of chest without contrast 2019-07-03 00: 00:00 ABDIRASHID ALFORD [facility] Magnetic resonance imaging of brain without contrast 2019-06 00:00:00 ABDIRASHID ALFORD [facility] Computed tomography angiography of brain 2019-07-03 00:00:00 NADIA GARCIA [facility] CT angiography of neck 2019-07-03 00:00:00 NADIA SOW [facility] Ultrasound guidance for vascular access 2019-07-01 00:00:00 CELENA HINTON AM [facility] Sedate Initial > 5 Yrs 2019-07-01 00:00:00 MICHAEL BEACH [facility] INSERT OF TUNNEL VAD INTO CHEST SUBCU/FASCIA, PERC APPROACH 2019-07-01 00:00:00 [facility] INSERTION OF INFUSION DEV INTO SUP VENA CAVA, PERC APPROACH 2019-07-01 00:00:00 [facility] EXCISION OF STOMACH, ENDO, DIAGN 2019-06-30 00:00:00 [facility] EXCISION OF STOMACH, PYLORUS, ENDO, DIAGN 2019-06-30 00:00:00 [facility] US abdomen complete 2019-06-29 00:00:00 ABDIRASHID ALFORD [facility] Computed tomography of abdomen without contrast 2019-06-29 00:00 :00 [facility] PERFORMANCE OF URINARY FILTRATION, <6 HRS/DAY 2019-06-27 00:00:0 0 [facility] Bone density scan<sup>1</sup> 2018-10-15 05:00:00 [facility] Mammogram<sup>2</sup> 2018-10-15 05:00:00 Sebastian pr [facility] Diabetic Retinopathy Study 7 field stere oscopic fundus photography<sup>3, 4</sup> 2018-10-08 05:00:00 [facility] Colonoscopy<sup>5</sup> 2014-06-24 00:00:00 [place] [facility] Emergency department visit for the evalu ation and management of a patient, which requires these 3 sullivan components: A detailed history; A detailed examination; and Medical decision making of moderate complexity. Counseling and/or coordination of care with o 2013-04-01 05:00:00 [facility] Therapeutic, prophylactic, or diagnostic injection (specify substance or drug); subcutaneous or intramuscular 2013-04-01 05:00:00 [facility] Hysterectomy<sup>6</sup> 1979-06-24 00:00:00 [facility] Appendectomy [facility] Cholecystectomy [facility] Tubal ligation [facility] Appendectomy [facility] Cholecystectomy [facility] Tubal ligation [facility] Plan of Care Planned Activity Planned Date Details Comments Source Future Scheduled Test 2020-02-23 00:00:00 INFLUENZA VACCINE (#1) [code = INFLUENZA VACCINE (#1)] [facility] Future Scheduled Test 2019-06-24 00:00:00 Medicare IPPE (WEL COME TO MEDICARE) [code = Medicare IPPE (WELCOME TO MEDICARE)] [facility] Future Scheduled Test 2018 00:00:00 PNEUMOCOCCAL 65+ Y RS (1 of 1 - [id number] PCV13) [code = PNEUMOCOCCAL 65+ YRS (1 of 1 - [id number] PCV13)] [facility] 1955 00:00:00 Screening for anna gnant neoplasm of breast (procedure) [code = 722522867] [facility] 1953 00:00:00 Screening for anna gnant neoplasm of colon (procedure) [code = 009018499] [facility] dical [place] Instructions COVID-19: 09/07/2019 [facility] Instructions Urinary Tract Infection - Women [facility] Encounters Start Date/Time End Date/Time Encounter Type Admission Type Attendi [facility] Care Department Encounter ID Source 2018-09-30 16:57:58 Outpatient [id number] 2020-04-21 14:57:07 2020-04-21 15:12:07 Office Visit Yaquelin Menchaca [facility] [id number] 2020-04-08 17:48:00 2020-04-10 16:36:00 Discharged Inpatient (obs) Batsheva Schaeffer [facility] [id number] [facility] 2020-03-17 10:00:59 2020-03-17 10:29:55 Office Visit Yaquelin Menchaca [facility] [id number] 2020-01-21 15:00:00 2020-01-21 15:30:00 Office Visit Yaquelin Menchaca [facility] [id number] 2020-01-05 13:20:00 2020-01-05 17:33:00 Departed Emergency Room 1 MEENAKSHI GANDHI [facility] [id number] [facility] 2019-11-17 16:05:00 2019-11-17 21:00:00 Departed Emergency Room 1 MEENAKSHI GANDHI [facility] [id number] [facility] 2019-09-04 11:14:00 2019-09-10 16:46:00 Discharged Inpatient 1 MEENAKSHI GANDHI [facility] [id number] [facility] 2019-08-28 09:40:00 2019-08-28 10:27:00 Departed Emergency Room [facility] [id number] [facility] 2019-08-25 16:32:00 2019-08-25 20:42:00 Departed Emergency Room 1 EHSAN BAE [facility] [id number] [facility] 2019-08-10 20:35:00 2019-08-12 20:45:00 Discharged Inpatient (obs) 1 JOSR SAENZ [facility] [id number] [facility] 2019-07-01 05:10:00 2019-07-14 20:16:00 Discharged Inpatient 1 CELENA CHRISTENSEN [facility] [id number] [facility] 2019-07-08 06:33:47 2019-07-09 23:59:59 Outpatient [facility] [id number] 2019-06-22 10:47:00 2019-06-22 15:49:00 Departed Emergency Room 1 MEENAKSHI GANDHI [facility] [id number] [facility] 2019-05-25 07:37:21 2019-05-26 23:59:59 Outpatient [facility] [id number] 2019-04-17 19:23:00 2019-04-20 10:33:00 Discharged Inpatient 1 MEENAKSHI GANDHI [facility] [id number] [facility] 2019-04-07 12:02:54 2019-04-08 23:59:59 Outpatient [facility] [id number] 2019-01-27 14:36:25 2019-01-28 23:59:59 Outpatient [facility] [id number] 2019-01-19 10:00:00 2019-01-19 23:59:59 Outpatient WalkerCiara plunkett [facility] [id number] 2019-01-01 16:57:00 2019-01-05 13:11:00 Discharged Inpatient 1 ZAINA GORDON [facility] [id number] [facility] 2018-11-28 16:00:00 2018-11-28 16:00:00 Outpatient Shelton Jackson [facility] [id number] 2018-10-27 16:23:00 2018-10-27 18:01:00 Departed Emergency Room [facility] [id number] [facility] 2018-10-20 11:00:00 2018-10-20 23:59:59 Outpatient WalkerCiara plunkett [facility] [id number] 2018-10-20 13:00:00 2018-10-20 13:00:00 Outpatient Ciara Cardoso [facility] [id number] 2018-10-15 14:05:00 2018-10-15 23:59:00 Outpatient WalkerCiaraAnnette [facility] [id number] 2018-10-15 14:05:00 2018-10-15 14:05:[address] 2018-10-09 15:30:00 2018-10-09 23:59:59 Outpatient WalkerCiara plunkettAnnette [facility] [id number] 2018-09-30 15:13:00 2018-10-02 17:49:00 Discharged Inpatient (obs) 1 ZAINA GORDON [facility] [id number] [facility] 2018-09-22 12:25:00 2018-09-22 23:59:00 Outpatient Ciara Cardoso [facility] [id number] 2018-09-22 12:25:00 2018-09-22 12:25:00 Outpatient [facility] [address] [place] [address] 2018-09-19 11:00:00 2018-09-19 23:59:59 Outpatient Ciara Cardoso [facility] [id number] 2018-07-29 11:33:00 2018-07-29 14:15:00 Departed Emergency Room [facility] [id number] [facility] 2018-07-12 16:59:00 2018-07-18 10:56:00 Discharged Inpatient 1 ZAINA GORDON [facility] [id number] [facility] 2014-03-05 17:41:00 2014-03-06 03:48:00 [id number] 2013-07-24 13:30:00 2013-07-24 23:59:00 Outpatient IE IE [id number] [facility] [place] 2013-04-01 09:45:00 2013-04-01 14:00:00 [address] IE [place] [id number] [facility] 2013-04-01 09:45:00 2013-04-01 14:00:00 Outpatient [place] [id number] [facility] 2013-04-01 09:45:00 2013-04-01 14:00:00 [address] [place] [id number] [facility] 2013-04-01 09:45:00 2013-04-01 14:00:00 Outpatient IE IE [id number] [facility] Results Test Description Test Time Test Comments Results Result Comments Source Capillary blood glucose measurement by glucometer (mas s/volume) 2020-04-10 10:27:00 Test Item Bedside Glucose (test code = 72171-9) 97 70-120 Meter ID: [id number] automated count (number/volume)2020-04-09 04:58:00* Test Item Value Reference Range Interpretation Comments White Blood Count (test code = 6690-2) 8.01 4.8-10.8 [facility] count (number/volume)2020-04-09 04:58:00* Test Item Value Reference Range Interpretation Comments Red Blood Count (test code = 789-8) 3.68 3.6-5.1 [facility] (moles/volume)2020-04-09 04:58:00* Test Item Value Reference Range Interpretation Comments Hemoglobin (test code = 30476-3) 10.2 12.0-16.0 [facility] hematocrit (volume fraction)2020-04-09 04:58:00* Test Item Value Reference Range Interpretation Comments Hematocrit (test code = 4544-3) 31.3 34.2-44.1 [facility] eryth[facility] mean corpuscular [id number] 04:58:00* Test Item Value Reference Range Interpretation Comments Mean Corpuscular Volume (test code = 787-2) 85.1 81-99 [facility] mean corpuscular hemoglobin (mass per erythrocyte)2020-04-09 04:58:00* Test Item Value Reference Range Interpretation Comments Mean Corpuscular Hemoglobin (test code = 785-6) 27.7 28-32 [facility] mean corpuscular hemoglobin concentration measurement (mass/volume)2020-04-09 04:58:00* Test Item Value Reference Range Interpretation Comments Mean Corpuscular Hemoglobin Concent (test code = 786-4) 32.6 31-35 [facility] CenterRDW [id number] 04:58:00* Test Item Value Reference Range Interpretation Comments Red Cell Distribution Width (test code = 29143-0) 15.4 11.7 -14.4 [facility] [facility] [place] platelet count (count/volume)2020-04-09 04:58:00* Test Item Value Reference Range Interpretation Comments Platelet Count (test code = 777-3) 286 140-360 [facility] CenterAutomated blood segmented neutrophil count as percentage of total aaqytgwfgl1465-08-76 04:58:00* Test Item Value Reference Range Interpretation Comments Neutrophils (%) (Auto) (test code = 68708-2) 53.4 38.7-80.0 [facility] CenterAutomated blood lymphocyte count as percentage ot total zhagthogrm3714-92-08 04:58:00* Test Item Value Reference Range Interpretation Comments Lymphocytes (%) (Auto) (test code = 736-9) 33.5 18.0-39.1 [facility] CenterAutomated blood monocyte count as percentage of total xsxzrjyuht5356-94-20 04:58:00* Test Item Value Reference Range Interpretation Comments Monocytes (%) (Auto) (test code = 5905-5) 5.9 4.4-11.3 [facility] CenterAutformerly [facility]ed blood eosinophil count as percentage of total usnmwplaqw3275-46-15 04:58:00* Test Item Value Reference Range Interpretation Comments Eosinophils (%) (Auto) (test code = 713-8) 5.7 0.0-6.0 [facility] CenterAutomated blood basophil count as percentage of total xdhecsbytc3096-46-72 04:58:00* Test Item Value Reference Range Interpretation Comments Basophils (%) (Auto) (test code = 706-2) 1.1 0.0-1.0 [facility] CenterFluoroscopic procedure less than one hour crcnnank7621-65-52 04:58:00* Test Item Value Reference Range Interpretation Comments IM GRANULOCYTES % (test code = IM GRANULOCYTES %) 0.4 0.0- 1.0 [facility] CenterAutomated blood neutrophil count 2020-04-09 04:58:00* Test Item Value Reference Range Interpretation Comments Neutrophils # (Auto) (test code = 751-8) 4.3 2.1-6.9 [facility] CenterBlriver[facility] clinic lymphocytes count (number/volume) 2020-04-09 04:58:00* Test Item Value Reference Range Interpretation Comments Lymphocytes # (Auto) (test code = 33544-2) 2.7 1.0-3.[address] [facility] monocytes automated count (number/volume)2020-04-09 04:58:00* Test Item Value Reference Range Interpretation Comments Monocytes # (Auto) (test code = 742-7) 0.5 0.2-0.8 [facility] CenterAutomated blood eosinophil count 2020-04-09 04:58:00* Test Item Value Reference Range Interpretation Comments Eosinophils # (Auto) (test code = 711-2) 0.5 0.0-0.4 [facility] CenterAutomated blood basophil count (count/volume)2020-04-09 04:58:00* Test Item Value Reference Range Interpretation Comments Basophils # (Auto) (test code = 704-7) 0.1 0.0-0.1 [facility] CenterFluoroscopic procedure less than one hour fmqitakj8417-88-14 04:58:00* Test Item Value Reference Range Interpretation Comments Absolute Immature Granulocyte (auto (jake t code = Absolute Immature Granulocyte (auto) 0.03 0-0.1 [facility] Hospitalerum or plasma sodium measurement (moles/volume)2020-04-09 04:58:00* Test Item Value Reference Range Interpretation Comments Sodium Level (test code = 2951-2) 139 136-145 [facility] Hospitalerum or plasma potassium measurement (moles/volume)2020-04-09 04:58:00* Test Item Value Reference Range Interpretation Comments Potassium Level (test code = 2823-3) 3.5 3.5-5.1 [facility] Hospitalerum or plasma chloride measurement (moles/volume)2020-04-09 04:58:00* Test Item Value Reference Range Interpretation Comments Chloride Level (test code = 2075-0) 100 98-107 [facility] Hospitalerum or plasma carbon dioxide, total measurement (moles/volume)2020-04-09 04:58:00* Test Item Value Reference Range Interpretation Comments Carbon Dioxide Level (test code = 2028-9) 26 22-29 [facility] Hospitalerum or plasma anion fmr6273-86-40 04:58:00* Test Item Value Reference Range Interpretation Comments Anion Gap (test code = 85889-7) 16.5 8-16 [facility] Hospitalerum or plasma urea nitrogen measurement (mass/volume)2020-04-09 04:58:00* Test Item Value Reference Range Interpretation Comments Blood Urea Nitrogen (test code = 3094-0) 64 7-26 [facility] Hospitalerum or plasma creatinine measurement (mass/volume)2020-04-09 04:58:00* Test Item Value Reference Range Interpretation Comments Creatinine (test code = 2160-0) 4.21 0.57-1.11 [facility] Hospitalerum or plasma urea nitrogen/creatinine mass kzfgz6687-15-81 04:58:00* Test Item Value Reference Range Interpretation Comments BUN/Creatinine Ratio (test code = 3097-3) 15 6-25 [facility] CenterEstimated glomerular filtration rate (GFR) tfrsdcenhortp5899-08-73 04:58:00* Test Item Value Reference Range Interpretation Comments Estimat Glomerular Filtration Rate (test code = 720914400) 11 >60 Ranges were taken from the National Kidney Disease Education Program and the [facility] Kidney Foundation literature.Reference ranges:60 or greater: Uopfvm10-39 ( for 3 consecutive months): Chronic kidney disease 15 or less: Kidney failureMethodist Charlton Medical CenterGlucose woxkrtezsdt8485-20-26 04:58:00* Test Item Value Reference Range Interpretation Comments Glucose Level (test code = RYC6913) 115 74-118 [facility] Hospitalerum or plasma calcium measurement (mass/volume)2020-04-09 04:58:00* Test Item Value Reference Range Interpretation Comments Calcium Level (test code = 11643-5) 8.5 8.4-10.2 [facility] CenterFluoroscopic procedure less than one hour oohkieec6425-72-14 17:47:00* Test Item Value Reference Range Interpretation Comments Coronavirus (PCR) (test code = Coronavirus (PCR)) NOT DETECTED NOTD ETECTED SARS-CoV-2 PCRHologic Aptima SARS-CoV-2 assay is a nucleic amplification test in tended for the qualitative detection of RNA from SARS-CoV-2 from nasopharyngeal (PECAN MALLOW DIPPER) specimens. It is used under Emergency Use Authorization (EUA) by FDA.A posi tive result is indicative of the presence of SARS-CoV-2 RNA. Clinical correlatio n with patient history and other diagnostic information is necessary to determin e patient infection status.A negative (Not Detected) result does not preclude SA RS-CoV-2 infection. Clinical Correlation with patient history and other diagnost ic information should be used in patient management decisions.Invalid: Unable to generate a valid result on this specimen. Please submit a new specimen for repr at testing oc clinically indicated.Tesing performed by:[facility] [[email or web address]] Laboratory Services[address] [place] [id number], Ronak villeda MD, PhDMethod[facility] CenterUrine color determination 2020-04-08 17:03:00* Test Item Value Reference Range Interpretation Comments Urine Color (test code = 5778-6) YELLOW YELLOW [facility] CenterUrine ftyvzbq9136-60-06 17:03:00* Test Item Value Reference Range Interpretation Comments Urine Clarity (test code = 30487-9) CLOUDY CLEAR [facility] Hospitalpecific gravity of Urine by Test strip 2020-04-08 17:03:00* Test Item Value Reference Range Interpretation Comments Urine Specific [place] (test code = 5811-5) 1.020 1.010-1.02 5 [facility] CenterUrine pH measurement by automated test qqaly8980-78-86 17:03:00* Test Item Value Reference Range Interpretation Comments Urine pH (test code = 23631-0) 7 5-7 [facility] CenterUrine leukocyte esterase detection by lcnjunjs0363-71-74 17:03:00* Test Item Value Reference Range Interpretation Comments Urine Leukocyte Esterase (test code = 5799-2) SMALL NEGATIVE [facility] CenterUrine nitrite lnlutanzv1518-90-63 17:03:00* Test Item Value Reference Range Interpretation Comments Urine Nitrite (test code = 90694-0) NEGATIVE NEGATIVE [facility] CenterUrine protein measurement by test strip (mass/volume)2020-04-08 17:03:00* Test Item Value Reference Range Interpretation Comments Urine Protein (test code = 5804-0) >=300 NEGATIVE [facility] CenterUrine glucose pslctwgab6161-37-16 17:03:00* Test Item Value Reference Range Interpretation Comments Urine Glucose (UA) (test code = 2349-9) 1+ NEGATIVE [facility] CenterUrine ketones detection by automated test adntx2310-40-33 17:03:00* Test Item Value Reference Range Interpretation Comments Urine Ketones (test code = 10433-7) TRACE NEGATIVE [facility] CenterUrine urobilinogen measurement by test strip (mass/volume)2020-04-08 17:03:00* Test Item Value Reference Range Interpretation Comments Urine Urobilinogen (test code = 78345-0) 0.2 0.2-1 [facility] CenterUrine total bilirubin measurement (mass/volume)2020-04-08 17:03:00* Test Item Value Reference Range Interpretation Comments Urine Bilirubin (test code = 1978-6) NEGATIVE NEGATIVE [facility] CenterUrine erythrocytes rgawbvebm2598-09-81 17:03:00* Test Item Value Reference Range Interpretation Comments Urine Blood (test code = 74713-2) TRACE NEGATIVE [facility] CenterAutomated urine sediment leukocyte count by microscopy (number/high power field)2020-04-08 17:03:00* Test Item Value Reference Range Interpretation Comments Urine WBC (test code = 5821-4) 11-20 0-5 [facility] CenterErythrocytes detection in urine sediment by light tqakdcabox4602-92-69 17:03:00* Test Item Value Reference Range Interpretation Comments Urine RBC (test code = 64226-9) 6-10 0-5 [facility] CenterBacteria detection in urine sediment by light cmjzswtwbw5395-99-79 17:03:00* Test Item Value Reference Range Interpretation Comments Urine Bacteria (test code = 48314-0) MANY NONE [facility] CenterEpithelial cells detection in urine sediment by light qnekdbxgug5177-60-71 17:03:00* Test Item Value Reference Range Interpretation Comments Urine Epithelial Cells (test code = 73075-8) RARE NONE [facility] CenterBacterial urine wusvnai1241-83-43 17:03:00* Test Item Value Reference Range Interpretation Comments Urine Culture (test code = 630-4) ENTEROCOCCUS FAECALIS [facility] CenterFluoroscopic procedure less than one hour lrptwkdw7597-62-45 15:38:00* Test Item Value Reference Range Interpretation Comments Lactic Acid Level (test code = Lactic Acid Level) 0.5 0.5- 2.0 [facility] MN7522-90-45 15:25:00 [facility] : 1955 Sex: F [place] [address] Patient Name: AWILDA ESCUDERO MR #: [id number] : 1955 Age/Sex: 65/F Req #: [id number] [facility] Physician: Sukh gordillo by: Batsheva Schaeffer MD Report #: [id number] Location: Room/Bed: Procedure: [id number] CT/CT BRAIN WO Exam Date: 04/08/20 Exam Time: 1440 REPORT STATUS: Signed EXAMINATION: Head CT HISTORY: 65-year-old female with altered mental status, right hand numbness COMPARISON: Head CT TECHNIQUE: Helical axial images of the head were obtained. Reformatt ed coronal and sagittal images from the axial data. Dose modulation, iterativ e reconstruction, and/or weight based adjustment of the mA/kV was utilized to reduce the radiation dose to as low as reasonably achievable. FINDINGS: Parenchyma: Unchanged nonspecific moderate confluent chronic microva scular ischemic disease. 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 Chronic lacunar infarcts in the right striato-capsular region, bilateral subinsular cortices, thalami and putamina. No mass or hemorrhage. No CT evidence of acute territorial vascular insult. Extra-axial spaces:No abnormal density. No extra-axial fluid collections Brain volum e: Normal for age. Ventricles: No hydrocephalus or displacement. Arteries: No density suggestive of thrombus. Dural sinuses: No abnormal density. Foramen magnum: No mass, Chiari malformation, or basilar inva gination. Sella: No obvious mass. Paranasal/mastoid sinuses: Im aged portions unremarkable. Skull/Scalp: No lytic or blastic lesions. N o fractures. IMPRESSION: 1. No acute intracranial hemorrhage or gabriel ical infarcts. 2. Unchanged left temporoparietal/MCA chronic infarct germain red to head CT of 01/05/2020. 3. Moderate chronic microvascular ischemic changes and small chronic lacunar infarcts are also unchanged. Signed by: Dr. Thomas Perez M.D. on 04/08/2020 3:43 PM Dictated By: THOMAS PEREZ MD 3404 Transcribed By: LUCINDA ROBERTS on 04/08/201542 COPY TO: BATSHEVA SCHAEFFER MD CHEST SINGLE (PORTABLE)2020-04-08 15:04:00 [facility] : 1955 Sex: F [facility] [address] [place] [address] Patient Name: AWILDA ESCUDERO MR #: [id number] : 1955 Age/Sex: 65/F Req #: [id number] Adm Physician: Ord ered by: Batsheva Schaeffer MD Report #: [id number] Location: ER Room/Bed: Procedure: [id number] DX/CHEST SINGLE (PORTABLE) Exam Da te: 04/08/20 Exam Time: 1440 REPORT STATUS: Signed EXAM: CHEST SINGLE (PORTABLE) DATE: 04/08/2020 2:40 PM INDICATION: Altered mental status COMPAR MACK: 11/17/2019 FINDINGS/IMPRESSION: Right IJ tunneled dialysis catheter identified in stable position. The trachea is midline. There is minimal lef t basilar opacity suggestive of atelectasis. There is no evidence for large fo lawrence consolidation, pneumothorax, or significant pleural effusion. The ca rdiomediastinal silhouette appears magnified by technique but otherwise unrema rkable.. Atherosclerotic calcifications are noted within the thoracic aorta. N o acute osseous abnormalities identified. Signed by: Dr. Popeye Navarro MD o n 04/08/2020 3:07 PM Dictated By: POPEYE NAVARRO MD 06 Transcribed By: SCAR on 04/08/201506 COPY TO: BATSHEVA SCHAEFFER MD Prothrombin time (PT) in platelet poor plasma by coagulation ruktv8787-73-34 14:36:00* Test Item Value Reference Range Interpretation Comments Prothrombin Time (test code = 5902-2) 12.9 11.9-14.5 [facility] CenterINR in Platelet poor plasma by Coagulation ytxux4663-33-46 14:36:00* Test Item Value Reference Range Interpretation Comments Prothromb Time International Ratio (test code = 6301-6) 0.93 Oral Anticoagulant Therapy INR Values:1. Low Intensity Therapy 1.5 - 2.02 . Moderate Intensity Therapy 2.0 - 3.03. High Intensity Therapy(1) 2.5 - 3. 54. High Intensity Therapy(2) 3.0 - 4.05. Panic Value INR > 5.0 [facility] Hospitalerum or plasma total bilirubin measurement (mass/volume)2020-04-08 14:36:00* Test Item Value Reference Range Interpretation Comments Total Bilirubin (test code = 1975-2) 0.5 0.2-1.2 [facility] CenterFluoroscopic procedure less than one hour jlzjfkmx4960-78-17 14:36:00* Test Item Value Reference Range Interpretation Comments Aspartate Amino Transf (AST/SGOT) (test code = Aspartate Amino Transf (AST/SGOT)) 18 5-34 [facility] Hospitalerum or plasma alanine aminotransferase measurement (enzymatic activity/volume)2020-04-08 14:36:00* Test Item Value Reference Range Interpretation Comments Alanine Aminotransferase (ALT/SGPT) (test code = 1742-6) 9 0-55 [facility] Hospitalerum or plasma protein measurement (mass/volume)2020-04-08 14:36:00* Test Item Value Reference Range Interpretation Comments Total Protein (test code = 2885-2) 6.6 6.5-8.1 [facility] Hospitalerum or plasma albumin measurement (mass/volume)2020-04-08 14:36:00* Test Item Value Reference Range Interpretation Comments Albumin (test code = 1751-7) 3.4 3.5-5.0 [facility] CenterPlasma globulin measurement (mass/volume) 2020-04-08 14:36:00* Test Item Value Reference Range Interpretation Comments Globulin (test code = 14659-5) 3.2 2.3-3.5 [facility] Hospitalerum or plasma albumin/globulin mass uwfua3719-26-26 14:36:00* Test Item Value Reference Range Interpretation Comments Albumin/Globulin Ratio (test code = 1759-0) 1.1 0.8-2.0 [facility] Hospitalerum or plasma alkaline phosphatase measurement (enzymatic activity/volume)2020-04-08 14:36:00* Test Item Value Reference Range Interpretation Comments Alkaline Phosphatase (test code = 6768-6) 72 40-150 [facility] CenterTroponin I measurement by highly sensitive enzyme lvsvndctdhc8484-82-93 14:36:00* Test Item Value Reference Range Interpretation Comments Troponin I (test code = 93011-9) < 0.001 0-0.300 [facility] CenterECG 12 rdpo4782-19-60 08:24:49Interface, External Ris In - 03/05/2020 8:24 AM CDTVentricular Rate 87 BPMAtrial Rate 87 BPMP-R Interval 194 msQRS Duration 82 msQ-T Interval 412 msQTC Calcula tion(Bazett) 495 msP [place] 62 degreesR [place] 45 degreesT [place] -5 degreesNormal sin us rhythmNormal ECGNo previous ECGs availableConfirmed by MD STEFANIA, EVITA Chappell ([id number]) on 03/05/2020 8:24:45 [facility]Potassium 2020-03-04 13:21:00* Test Item Value Reference Range Interpretation Comments POC-Potassium (test code = 1540) 3.2 meq/L 3.6-5.5 L : TESTED AT [address], [address]: Farm Reporter/Videogame Tester ID = [id number] for BAGUNDOL, ARNOLD Lab Interpretation (test code = 72708-9) Abnormal [facility]POCT-OFVQHAAKI1387-02-12 13:21:00* Test Item Value Reference Range Interpretation Comments POC-POTASSIUM (BEAKER) (test code = 1540) 3.2 meq/L 3.6-5.5 L : TESTED AT [facility] [address] [facility], [address]: Farm Reporter/Videogame Tester ID = [id number] for BAGUNDOL, ARNOLD CBC with platelet count + automated etvh7082-86-63 09:00:00* Test Item Value Reference Range Interpretation [...] 450 K/CU MM MPV (test code = 77575-0) 9.8 fL 9.4-12.3 nRBC (test code = [...] % 0-1 Lab Interpretation (test code = 84739-5) Abnormal [facility]/PLT COUNT & AUTO KQKSPIYTEZCA0105-56-44 09:00:00* Test Item Value Reference Range Interpretation [...] 2801) 1 % 0-1 Type and screen, fixcwvgpq2196-37-36 08:46:00* Test Item Value Reference Range Interpretation Comments ABO/RH AUTOMATED (BEAKER) (test code = 2260) O POSITIVE Ab Scrn (test code = 890-4) NEGATIVE [facility] Metabolic Bbods4339-61-76 08:17:00* Test Item Value Reference Range Interpretation Comments Sodium (test code = 2951-2) 136 meq/L 136-145 Potassium (test code = 2823-3) 2.7 meq/L 3.5-5.1 L Chloride (test code = 2075-0) 100 meq/L 98-107 CO2 (test code = 2028-9) 28 meq/L 22-29 BUN (test code = 3094-0) 17 mg/dL 7-21 Creatinine (test code = 2160-0) 2.18 mg/dL 0.57-1.25 H Glucose (test code = 2345-7) 93 mg/dL 70-105 Calcium (test code = 68608-1) 8.7 mg/dL 8.4-10.2 EGFR (test code = 68075-0) 22 mL/min/1.73 sq m ESTIMATED GFR IS NOT ACCURATE CREATININE CLEARANCE IN PREDICTING GLOMERULAR FILTRATION RATE. ESTIMATED GFR IS NOT APPLICABLE FOR DIALYSIS PATIENTS. ALBERTO (test code = ALBERTO) Farm Reporter Faves F Lab Interpretation (test code = 73144-4) Abnormal [facility] METABOLIC ZUOCR8630-46-57 08:17:00* Test Item Value Reference Range Interpretation [...] GFR IS NOT APPLICABLE FOR DIALYSIS PATIENTS. Farm Reporter Faves CHxqhbjzsv7370-47-20 08:13:00* Test Item Value Reference Range Interpretation Comments Magnesium (test code = 13719-3) 1.8 mg/dL 1.6-2.6 ALBERTO (test code = ALBERTO) Farm Reporter ID Pedro Nicole Lab Interpretation (test code = 33484-7) Normal [facility] HospitalPhosphorus2020-09-11 08:13:00* Test Item Value Reference Range Interpretation Comments Phosphorus (test code = 2777-1) 2.4 mg/dL 2.3-4.7 ALBERTO (test code = ALBERTO) Farm Reporter ID Pedro Nicole Lab Interpretation (test code = 18514-8) Normal [facility] HospitalPHOSPHORUS2020-09-11 08:13:00* Test Item Value Reference Range Interpretation Comments PHOSPHORUS (BEAKER) (test code = 604) 2.4 mg/dL 2.3-4.7 Farm Reporter ID - LIVAN CBSFPGTNNK6787-89-35 08:13:00* Test Item Value Reference Range Interpretation Comments MAGNESIUM (BEAKER) (test code = 627) 1.8 mg/dL 1.6-2.6 Farm Reporter ID Pedro LICONA CYXPZ-YIYLJHMIA5333-07-11 07:13:00* Test Item Value Reference Range Interpretation Comments POC-POTASSIUM (BEAKER) (test code = 1540) 2.6 meq/L 3.6-5.5 LL : TESTED AT [facility] [address] [facility], [address]: Farm Reporter/Videogame Tester ID = [id number] for ARNOLD MARTINEZ [id number] 07:05:00* Test Item Value Reference Range Interpretation Comments PTT (test code = 85371-3) 31.4 22.5- 36.0 seconds Lab Interpretation (test code = 16448-7) Normal [facility] HospitalAPTT2020-09-11 07:05:00* Test Item Value Reference Range Interpretation Comments PARTIAL THROMBOPLASTIN TIME (BEAKER) (test code = 760) 31.4 seconds 22.5-36.0 Prothrombin time/HCM4642-80-06 07:04:00* Test Item Value Reference Range Interpretation [...] heart valves. Lab Interpretation (test code = 39062-7) Normal [facility] HospitalPROTHROMBIN TIME/UKG7031-97-26 07:04:00* Test Item Value Reference Range Interpretation [...] for patie nts wiht mechanical heart valves.POC-Glucose uawgr9247-43-35 07:03:00* Test Item Value Reference Range Interpretation Comments POC-Glucose Meter (test code = 1538) 91 mg/dL 70-110 : TESTED AT [address], [address]: Farm Reporter/Videogame Tester ID = [id number] for ARNOLD MARTINEZ Lab Interpretation (test code = 35858-4) Normal [facility] HospitalPOCT-GLUCOSE BFMYS5840-45-52 07:03:00* Test Item Value Reference Range Interpretation Comments POC-GLUCOSE METER (BEAKER) (test code = 1538) 91 mg/dL 70-110 : TESTED AT [facility] [address] [facility], [address]: Farm Reporter/Videogame Tester ID = [id number] for ARNOLD MARTINEZ SARS-CoV2/RT-PCR ([facility])2020-03-03 21:15:00* Test Item Value Reference Range Interpretation Comments SARS-COV2/RT-PCR (test code = 43171-3) Negative N ot Detected, Negative, See external report for linked test SARS-COV-2 PERFORMING LAB (test code = 69485-4) [facility] IRVIN ALBERTO (test code [...] of the Act. Fact Sheet for Healthcare Providers:https://www.RCT Logic.TekLinks/sites/default/files/product/documents/Fact_Shee x_YK_Pfowuxnzf_Slnx_QBJC-KuV-7.pdf Fact Sheet for Healthcare Patients:https://www.[employer].TekLinks/sites/default/files/pro duct/documents/Oxdq_Caghm_Fxvoiecq_Drbl_DEDD-EgT-8.pdf Performing Laboratory:[place] [address] [address].[place] [id number] [facility]ARS[facility]OV[facility] ([facility])2020-03-03 21:15:00* Test Item Value Reference Range Interpretation Comments SARS-COV2/RT-PCR (test code = 1333037) Negative N ot Detected, Negative, See external report for linked test SARS-COV-2 PERFORMING LAB (test code = 6671557) [facility] IRVIN Negative result for [...] from individuals suspected of COVID-19 by their [facility] provider.This test has not been Food and Drug Administration (FDA) clear ed or approved. This is a modified version of an approved Emergency Use Authori zation (EUA) and is in the process of review by the FDA. Once authorized by [facility] FDA, the issued EUA will be effective until the declaration that circumstances exist justifying the authorization of the emergency use of in vitro diagnostic tests for detection and/or diagnosis of COVID-19 is terminated under Section 564 (b)(2) of the Act or the EUA is revoked under Section 564(g) of the Act.Fact She et for Healthcare Providers:https://www.Foodspottingidel.com/sites/default/files/product/d ocuments/Rnlo_Syvbq_IH_Momtzwdnd_Ltpk_AVIM-UiX-4.pdfFact Sheet for Healthcare Pa tients:https://www.R[employer].TekLinks/sites/default/files/product/documents/Fact_Sheet_P vaefgfs_Jaoh_NBES-PdH-8.pdfPerforming Laboratory:[facility] [address].[place], [place] [address]JGWEX METABOLIC PDZLV5705-02-70 15:35:00* Test Item Value Reference Range Interpretation [...] = 652) 114 mg/dL 70-105 H CALCIUM (BEAKER) (test code = 697) 8.7 mg/dL 8.4-10.2 EGFR (BEAKER) (test code = 1092) 39 mL/min/1.73 sq m ESTIMATED GFR IS NOT ACCURATE CREATININE CLEARANCE IN PREDICTING GLOMERULAR FILTRATION RATE. ESTIMATED GFR IS NOT APPLICABLE FOR DIALYSIS PATIENTS. Farm Reporter ID - [id number] 15:14:00* Test Item Value Reference Range Interpretation Comments Hemoglobin (test code = 786-4) 11.5 11.2- 15.7 GM/DL ALBERTO (test code = ALBERTO) [employer] Reporter ID - [id number] Lab Interpretation (test code = 98232-3) [facility] 15:14:00* Test Item Value Reference Range Interpretation Comments HEMOGLOBIN (BEAKER) (test code = 410) 11.5 GM/DL 11.2-15.7 [employer] ID - [id number] time (PT) in platelet poor plasma by coagulation dllpz6404-02-04 15:20:00* Test Item Value Reference Range Interpretation Comments Prothrombin Time (test code = 5902-2) 12.2 11.9-14.5 [facility] CenterINR in Platelet poor plasma by Coagulation vqcgf4546-60-58 15:20:00* Test Item Value Reference Range Interpretation Comments Prothromb Time International Ratio (test code = 6301-6) 0.86 Oral Anticoagulant Therapy INR Values:1. Low Intensity Therapy 1.5 - 2.02 . Moderate Intensity Therapy 2.0 - 3.03. High Intensity Therapy(1) 2.5 - 3. 54. High Intensity Therapy(2) 3.0 - 4.05. Panic Value INR > 5.0 [facility] CenterActivated partial thromboplastin time (aPTT) in platelet poor plasma by coagulation sjyzx5617-34-61 15:20:00* Test Item Value Reference Range Interpretation Comments Activated Partial Thromboplast Time (test code = 07969-4) 73.6 23.8-35.5 [facility] CenterActivated partial thromboplastin time (aPTT) in platelet poor plasma by coagulation bjmgt0105-62-37 15:20:00* Test Item Value Reference Range Interpretation Comments Activated Partial Thromboplast Time (test code = 70550-3) 73.6 23.8-35.5 [facility] CenterCT [facility]/PELVIS FK4404-69-26 15:19:00 [place] [address] Patient Name: AWILDA ESCUDERO MR #: [id number] : 1955 Age/Sex: 64/F Req #: [id number] Adm Physician: Ordered by: MEENAKSHI GANDHI MD Report #: [id number] Location: ER Room/Bed: Procedure: [id number] CT/CT ABDOMEN/PE LVIS WO Exam Date: 01/05/20 [...] COPY TO: MEENAKSHI GANDHI MD CT CHEST [id number] 15:19:00 [facility] [address] [address] Patient Name: AWILDA ESCUDERO MR #: [id number] : 1955 Age/Sex: 64/F Req #: [id number] Adm Physician: Ordered by: MEENAKSHI GANDHI MD Report #: [id number] Location: ER Room/Bed: Procedure: [id number] CT/CT CHEST WO Exam Date: 01/05/20 Exam [...] GANDHI MD CT BRAIN WO 2020-01-05 14:57:00 [place] [address] Patient Name: AWILDA ESCUDERO MR #: [id number] : 1955 Age/Sex: 64/F Req #: [id number] Adm Physician: Ordered by: MEENAKSHI GANDHI MD Report #: [id number] Location: ER Room/Bed: Procedure: [id number] CT/CT BRAIN WO Exam Date: 01/05/20 Exam [...] (test code = 6690-2) 5.73 4.8-10.8 [facility] CenterBlood erythrocytes automated count (number/volume)2020-01-05 14:05:00* Test Item Value Reference Range Interpretation Comments Red Blood Count (test code = 789-8) 4.29 3.6-5.1 [facility] CenterBlood hemoglobin measurement (moles/volume)2020-01-05 14:05:00* Test Item Value Reference Range Interpretation Comments Hemoglobin (test code = 66639-6) 12.1 12.0-16.0 [facility] CenterAutomated blood hematocrit (volume fraction)2020-01-05 14:05:00* Test Item Value Reference Range Interpretation Comments Hematocrit (test code = 4544-3) 37.9 34.2-44.1 [facility] CenterAutomated erythrocyte mean corpuscular krlsar6700-40-73 14:05:00* Test Item Value Reference Range Interpretation Comments Mean Corpuscular Volume (test code = 787-2) 88.3 81-99 [facility] CenterAutomated erythrocyte mean corpuscular hemoglobin (mass per erythrocyte)2020-01-05 14:05:00* Test Item Value Reference Range Interpretation Comments Mean Corpuscular Hemoglobin (test code = 785-6) 28.2 28-32 [facility] CenterAutomated erythrocyte mean corpuscular hemoglobin concentration measurement (mass/volume)2020-01-05 14:05:00* Test Item Value Reference Range Interpretation Comments Mean Corpuscular Hemoglobin Concent (test code = 786-4) 31.9 31-35 [facility] CenterRDW UzkDl-Ezp0496-21-14 14:05:00* Test Item Value Reference Range Interpretation Comments Red Cell Distribution Width (test code = 88685-1) 14.1 11.7 -14.4 [facility] CenterAutformerly [facility] countyed blood platelet count (count/volume)2020-01-05 14:05:00* Test Item Value Reference Range Interpretation Comments Platelet Count (test code = 777-3) 278 140-360 [facility] CenterAutomated blood segmented neutrophil count as percentage of total viarowxjdy9746-07-59 14:05:00* Test Item Value Reference Range Interpretation Comments Neutrophils (%) (Auto) (test code = 64082-6) 77.4 38.7-80.0 [facility] CenterAutformerly [facility] countyed blood lymphocyte count as percentage ot total xqjzjlkjpq4245-44-65 14:05:00* Test Item Value Reference Range Interpretation Comments Lymphocytes (%) (Auto) (test code = 736-9) 13.4 18.0-39.1 [facility] CenterAutomated blood monocyte count as percentage of total rjszfutigb5188-89-69 14:05:00* Test Item Value Reference Range Interpretation Comments Monocytes (%) (Auto) (test code = 5905-5) 7.0 4.4-11.3 [facility] CenterAutomated blood eosinophil count as percentage of total scvwlxoiir1637-74-62 14:05:00* Test Item Value Reference Range Interpretation Comments Eosinophils (%) (Auto) (test code = 713-8) 0.7 0.0-6.0 [facility] CenterAutomated blood basophil count as percentage of total euiewwokqk2404-28-86 14:05:00* Test Item Value Reference Range Interpretation Comments Basophils (%) (Auto) (test code = 706-2) 0.3 0.0-1.0 [facility] CenterFluoroscopic procedure less than one hour xjwjgzez4076-23-76 14:05:00* Test Item Value Reference Range Interpretation Comments IM GRANULOCYTES % (test code = IM GRANULOCYTES %) 1.2 0.0- 1.0 [facility] CenterAutomated blood neutrophil count 2020-01-05 14:05:00* Test Item Value Reference Range Interpretation Comments Neutrophils # (Auto) (test code = 751-8) 4.4 2.1-6.9 [facility] CenterBlood lymphocytes count (number/volume) 2020-01-05 14:05:00* Test Item Value Reference Range Interpretation Comments Lymphocytes # (Auto) (test code = 79591-7) 0.8 1.0-3.2 [facility] CenterBlood monocytes automated count (number/volume)2020-01-05 14:05:00* Test Item Value Reference Range Interpretation Comments Monocytes # (Auto) (test code = 742-7) 0.4 0.2-0.8 [facility] CenterAutomated blood eosinophil count 2020-01-05 14:05:00* Test Item Value Reference Range Interpretation Comments Eosinophils # (Auto) (test code = 711-2) 0.0 0.0-0.4 [facility] CenterAutomated blood basophil count (count/volume)2020-01-05 14:05:00* Test Item Value Reference Range Interpretation Comments Basophils # (Auto) (test code = 704-7) 0.0 0.0-0.1 [facility] CenterFluoroscopic procedure less than one hour kmfduiwd7370-65-91 14:05:00* Test Item Value Reference Range Interpretation Comments Absolute Immature Granulocyte (auto (jake t code = Absolute Immature Granulocyte (auto) 0.07 0-0.1 [facility] CenterUrine color nsbxbrjkzzlxl9934-54-99 14:05:00* Test Item Value Reference Range Interpretation Comments Urine Color (test code = 5778-6) YELLOW YELLOW [facility] CenterUrine ainapqn7007-44-98 14:05:00* Test Item Value Reference Range Interpretation Comments Urine Clarity (test code = 26635-6) SL CLOUDY CLEAR [facility] Hospitalpecific gravity of Urine by Test strip 2020-01-05 14:05:00* Test Item Value Reference Range Interpretation Comments Urine Specific [place] (test code = 5811-5) 1.025 1.010-1.02 5 [facility] CenterUrine pH measurement by automated test ierjb0581-91-59 14:05:00* Test Item Value Reference Range Interpretation Comments Urine pH (test code = 05185-7) 6 5-7 [facility] CenterUrine leukocyte esterase detection by lrvoxibi2510-42-29 14:05:00* Test Item Value Reference Range Interpretation Comments Urine Leukocyte Esterase (test code = 5799-2) TRACE NEGATIVE [facility] CenterUrine nitrite lgksxscdu3613-58-68 14:05:00* Test Item Value Reference Range Interpretation Comments Urine Nitrite (test code = 76831-9) NEGATIVE NEGATIVE [facility] CenterUrine protein measurement by test strip (mass/volume)2020-01-05 14:05:00* Test Item Value Reference Range Interpretation Comments Urine Protein (test code = 5804-0) >=300 NEGATIVE [facility] CenterUrine glucose swwbqatit6691-41-52 14:05:00* Test Item Value Reference Range Interpretation Comments Urine Glucose (UA) (test code = 2349-9) NEGATIVE NEGATIVE [facility] CenterUrine ketones detection by automated test sacpw1991-07-77 14:05:00* Test Item Value Reference Range Interpretation Comments Urine Ketones (test code = 56081-4) TRACE NEGATIVE [facility] CenterUrine urobilinogen measurement by test strip (mass/volume)2020-01-05 14:05:00* Test Item Value Reference Range Interpretation Comments Urine Urobilinogen (test code = 87266-9) 0.2 0.2-1 [facility] CenterUrine total bilirubin measurement (mass/volume)2020-01-05 14:05:00* Test Item Value Reference Range Interpretation Comments Urine Bilirubin (test code = 1978-6) NEGATIVE NEGATIVE [facility] CenterUrine erythrocytes xxeeauzkx7782-30-98 14:05:00* Test Item Value Reference Range Interpretation Comments Urine Blood (test code = 98398-0) TRACE NEGATIVE [facility] CenterAutomated urine sediment leukocyte count by microscopy (number/high power field)2020-01-05 14:05:00* Test Item Value Reference Range Interpretation Comments Urine WBC (test code = 5821-4) 0-5 0-5 [facility] CenterErythrocytes detection in urine sediment by light lkwnfkuoxy5269-75-54 14:05:00* Test Item Value Reference Range Interpretation Comments Urine RBC (test code = 69977-8) 0-5 0-5 [facility] CenterBacteria detection in urine sediment by light jpqpoijsii8501-18-38 14:05:00* Test Item Value Reference Range Interpretation Comments Urine Bacteria (test code = 98859-1) MANY NONE [facility] CenterEpithelial cells detection in urine sediment by light pocxfyjeze9311-17-30 14:05:00* Test Item Value Reference Range Interpretation Comments Urine Epithelial Cells (test code = 13888-6) NONE NONE [facility] Hospitalerum or plasma sodium measurement (moles/volume)2020-01-05 14:05:00* Test Item Value Reference Range Interpretation Comments Sodium Level (test code = 2951-2) 130 136-145 [facility] Hospitalerum or plasma potassium measurement (moles/volume)2020-01-05 14:05:00* Test Item Value Reference Range Interpretation Comments Potassium Level (test code = 2823-3) 4.2 3.5-5.1 [facility] Hospitalerum or plasma chloride measurement (moles/volume)2020-01-05 14:05:00* Test Item Value Reference Range Interpretation Comments Chloride Level (test code = 2075-0) 100 98-107 [facility] Hospitalerum or plasma carbon dioxide, total measurement (moles/volume)2020-01-05 14:05:00* Test Item Value Reference Range Interpretation Comments Carbon Dioxide Level (test code = 2028-9) 15 22-29 [facility] Hospitalerum or plasma anion ihf8934-19-04 14:05:00* Test Item Value Reference Range Interpretation Comments Anion Gap (test code = 24055-1) 19.2 8-16 [facility] Hospitalerum or plasma urea nitrogen measurement (mass/volume)2020-01-05 14:05:00* Test Item Value Reference Range Interpretation Comments Blood Urea Nitrogen (test code = 3094-0) 30 7-26 [facility] Hospitalerum or plasma creatinine measurement (mass/volume)2020-01-05 14:05:00* Test Item Value Reference Range Interpretation Comments Creatinine (test code = 2160-0) 3.66 0.57-1.11 [facility] Hospitalerum or plasma urea nitrogen/creatinine mass qsepj7620-57-84 14:05:00* Test Item Value Reference Range Interpretation Comments BUN/Creatinine Ratio (test code = 3097-3) 8 6-25 [facility] CenterEstimated glomerular filtration rate (GFR) kyrtpfadkwlhu4559-26-60 14:05:00* Test Item Value Reference Range Interpretation Comments Estimat Glomerular Filtration Rate (test code = 532138964) 12 >60 Ranges were taken from the National Kidney Disease Education Program and the [facility] Kid[facility] Foundation literature.Reference ranges:60 or greater: Qeddqk92-91 ( for 3 consecutive months): Chronic kidney disease 15 or less: Kidney failureMethodist Charlton Medical CenterGlucose dxxdphkokis9479-11-87 14:05:00* Test Item Value Reference Range Interpretation Comments Glucose Level (test code = FHA0923) 84 74-118 [facility] Hospitalerum or plasma calcium measurement (mass/volume)2020-01-05 14:05:00* Test Item Value Reference Range Interpretation Comments Calcium Level (test code = 98324-6) 8.1 8.4-10.2 [facility] Hospitalerum or plasma magnesium measurement (mass/volume)2020-01-05 14:05:00* Test Item Value Reference Range Interpretation Comments Magnesium Level (test code = 14951-8) 1.8 1.3-2.1 [facility] Hospitalerum or plasma total bilirubin measurement (mass/volume)2020-01-05 14:05:00* Test Item Value Reference Range Interpretation Comments Total Bilirubin (test code = 1975-2) 0.3 0.2-1.2 [facility] CenterFluoroscopic procedure less than one hour sujgnzmw3126-13-01 14:05:00* Test Item Value Reference Range Interpretation Comments Aspartate Amino Transf (AST/SGOT) (test code = Aspartate Amino Transf (AST/SGOT)) 24 5-34 [facility] Hospitalerum or plasma alanine aminotransferase measurement (enzymatic activity/volume)2020-01-05 14:05:00* Test Item Value Reference Range Interpretation Comments Alanine Aminotransferase (ALT/SGPT) (test code = 1742-6) 11 0-55 [facility] Hospitalerum or plasma protein measurement (mass/volume)2020-01-05 14:05:00* Test Item Value Reference Range Interpretation Comments Total Protein (test code = 2885-2) 7.0 6.5-8.1 [facility] Hospitalerum or plasma albumin measurement (mass/volume)2020-01-05 14:05:00* Test Item Value Reference Range Interpretation Comments Albumin (test code = 1751-7) 3.1 3.5-5.0 [facility] CenterPlasma globulin measurement (mass/volume) 2020-01-05 14:05:00* Test Item Value Reference Range Interpretation Comments Globulin (test code = 66276-3) 3.9 2.3-3.5 [facility] Hospitalerum or plasma albumin/globulin mass rdeer4117-50-88 14:05:00* Test Item Value Reference Range Interpretation Comments Albumin/Globulin Ratio (test code = 1759-0) 0.8 0.8-2.0 [facility] Hospitalerum or plasma alkaline phosphatase measurement (enzymatic activity/volume)2020-01-05 14:05:00* Test Item Value Reference Range Interpretation Comments Alkaline Phosphatase (test code = 6768-6) 59 40-150 [facility]-wGyx0712-07-23 14:05:00* Test Item Value Reference Range Interpretation Comments B-Type Natriuretic Peptide (test code = 40458-4) 45.9 0-100 [facility] Hospitalerum or plasma creatine kinase measurement (enzymatic activity/volume)2020-01-05 14:05:00* Test Item Value Reference Range Interpretation Comments Creatine Kinase (test code = 2157-6) 17 29-168 [facility] Hospitalerum or plasma creatine kinase MB measurement (mass/volume)2020-01-05 14:05:00* Test Item Value Reference Range Interpretation Comments Creatine Kinase MB (test code = 22499-9) 0.70 0-5.0 [facility] CenterTroponin I measurement by highly sensitive enzyme gyejezfrjwg8606-08-94 14:05:00* Test Item Value Reference Range Interpretation Comments Troponin I (test code = 60895-6) 0.020 0-0.300 [facility] Hospitalerum or plasma magnesium measurement (mass/volume)2020-01-05 14:05:00* Test Item Value Reference Range Interpretation Comments Magnesium Level (test code = 42485-0) 1.8 1.3-2.1 [facility]d-bYpn1628-52-09 14:05:00* Test Item Value Reference Range Interpretation Comments B-Type Natriuretic Peptide (test code = 46166-1) 45.9 0-100 [facility] Hospitalerum or plasma creatine kinase measurement (enzymatic activity/volume)2020-01-05 14:05:00* Test Item Value Reference Range Interpretation Comments Creatine Kinase (test code = 2157-6) 17 29-168 [facility] Hospitalerum or plasma creatine kinase MB measurement (mass/volume)2020-01-05 14:05:00* Test Item Value Reference Range Interpretation Comments Creatine Kinase MB (test code = 13569-2) 0.70 0-5.0 [facility] CenterCT ABDOMEN/PELVIS DA4060-12-85 18:14:00 [facility] [address] [address] Patient Name: AWILDA ESCUDERO MR #: [id number] : 1955 Age/Sex: 64/F Req #: [id number] Adm Physician: Ordered by: MEENAKSHI GANDHI MD Report #: [id number] Location: ER Room/Bed: Procedure: [id number] CT/CT ABDOMEN/PE LVIS WO Exam Date: 11/17/19 [...] MEENAKSHI GANDHI MD CHEST SINGLE (PORTABLE)2019-11-17 17:14:00 [place] [address] Patient Name: AWILDA ESCUDERO MR #: [id number] : 1955 Age/Sex: 64/F Req #: [id number] Adm Physician: Ordered by: MEENAKSHI GANDHI MD Report #: [id number] Location: ER Room/Bed: Procedure: [id number] DX/CHEST SINGLE (PORTABLE) Exam Date: 11/17/19 Exam [...] MD on 11/17/191714 Transcribed By: SCAR on 11/17/191714 COPY TO: MEENAKSHI GANDHI MD Blood leukocytes automated count (number/volume)2019-11-17 16:00:00* Test Item Value Reference Range Interpretation Comments White Blood Count (test code = 6690-2) 10.70 4.8-10.8 [facility] CenterBlood erythrocytes automated count (number/volume)2019-11-17 16:00:00* Test Item Value Reference Range Interpretation Comments Red Blood Count (test code = 789-8) 4.57 3.6-5.1 [facility] CenterBlood hemoglobin measurement (moles/volume)2019-11-17 16:00:00* Test Item Value Reference Range Interpretation Comments Hemoglobin (test code = 04371-2) 13.0 12.0-16.0 [facility] CenterAutomated blood hematocrit (volume fraction)2019-11-17 16:00:00* Test Item Value Reference Range Interpretation Comments Hematocrit (test code = 4544-3) 39.4 34.2-44.1 [facility] CenterAutomated erythrocyte mean corpuscular jmodcb1592-39-57 16:00:00* Test Item Value Reference Range Interpretation Comments Mean Corpuscular Volume (test code = 787-2) 86.2 81-99 [facility] CenterAutomated erythrocyte mean corpuscular hemoglobin (mass per erythrocyte)2019-11-17 16:00:00* Test Item Value Reference Range Interpretation Comments Mean Corpuscular Hemoglobin (test code = 785-6) 28.4 28-32 [facility] CenterAutomated erythrocyte mean corpuscular hemoglobin concentration measurement (mass/volume)2019-11-17 16:00:00* Test Item Value Reference Range Interpretation Comments Mean Corpuscular Hemoglobin Concent (test code = 786-4) 33.0 31-35 [facility] CenterRDW MtbGn-Eqs5283-40-26 16:00:00* Test Item Value Reference Range Interpretation Comments Red Cell Distribution Width (test code = 52235-2) 14.4 11.7 -14.4 [facility] CenterAutomated blood platelet count (count/volume)2019-11-17 16:00:00* Test Item Value Reference Range Interpretation Comments Platelet Count (test code = 777-3) 501 140-360 [facility] CenterAutomated blood segmented neutrophil count as percentage of total mydgmwlzma8911-75-35 16:00:00* Test Item Value Reference Range Interpretation Comments Neutrophils (%) (Auto) (test code = 23919-0) 63.6 38.7-80.0 [facility] CenterAutomated blood lymphocyte count as percentage ot total ohqwjzrame0993-79-80 16:00:00* Test Item Value Reference Range Interpretation Comments Lymphocytes (%) (Auto) (test code = 736-9) 27.8 18.0-39.1 [facility] CenterAutomated blood monocyte count as percentage of total dqerbhaojs5177-52-11 16:00:00* Test Item Value Reference Range Interpretation Comments Monocytes (%) (Auto) (test code = 5905-5) 4.5 4.4-11.3 [facility] CenterAutomated blood eosinophil count as percentage of total zkkjdhlefq7760-45-05 16:00:00* Test Item Value Reference Range Interpretation Comments Eosinophils (%) (Auto) (test code = 713-8) 2.8 0.0-6.0 [facility] CenterAutomated blood basophil count as percentage of total ebucsbnlyw5511-53-58 16:00:00* Test Item Value Reference Range Interpretation Comments Basophils (%) (Auto) (test code = 706-2) 0.9 0.0-1.0 [facility] CenterFluoroscopic procedure less than one hour wdyidiic0838-87-81 16:00:00* Test Item Value Reference Range Interpretation Comments IM GRANULOCYTES % (test code = IM GRANULOCYTES %) 0.4 0.0- 1.0 [facility] CenterAutomated blood neutrophil count 2019-11-17 16:00:00* Test Item Value Reference Range Interpretation Comments Neutrophils # (Auto) (test code = 751-8) 6.8 2.1-6.9 [facility] CenterBlood lymphocytes count (number/volume) 2019-11-17 16:00:00* Test Item Value Reference Range Interpretation Comments Lymphocytes # (Auto) (test code = 71619-6) 3.0 1.0-3.2 [facility] CenterBlriverview health clinic monocytes automated count (number/volume)2019-11-17 16:00:00* Test Item Value Reference Range Interpretation Comments Monocytes # (Auto) (test code = 742-7) 0.5 0.2-0.8 [facility] CenterAutomated blood eosinophil count 2019-11-17 16:00:00* Test Item Value Reference Range Interpretation Comments Eosinophils # (Auto) (test code = 711-2) 0.3 0.0-0.4 [facility] CenterAutomated blood basophil count (count/volume)2019-11-17 16:00:00* Test Item Value Reference Range Interpretation Comments Basophils # (Auto) (test code = 704-7) 0.1 0.0-0.1 [facility] CenterFluoroscopic procedure less than one hour fulxbokh9984-62-78 16:00:00* Test Item Value Reference Range Interpretation Comments Absolute Immature Granulocyte (auto (jake t code = Absolute Immature Granulocyte (auto) 0.04 0-0.1 [facility] CenterProthrombin time (PT) in platelet poor plasma by coagulation lixdk1527-28-36 16:00:00* Test Item Value Reference Range Interpretation Comments Prothrombin Time (test code = 5902-2) 12.1 11.9-14.5 [facility] CenterINR in Platelet poor plasma by Coagulation kmlqo1841-16-17 16:00:00* Test Item Value Reference Range Interpretation Comments Prothromb Time International Ratio (test code = 6301-6) 0.85 Oral Anticoagulant Therapy INR Values:1. Low Intensity Therapy 1.5 - 2.02 . Moderate Intensity Therapy 2.0 - 3.03. High Intensity Therapy(1) 2.5 - 3. 54. High Intensity Therapy(2) 3.0 - 4.05. Panic Value INR > 5.0 [facility] CenterActivated partial thromboplastin time (aPTT) in platelet poor plasma by coagulation tcihv5208-54-10 16:00:00* Test Item Value Reference Range Interpretation Comments Activated Partial Thromboplast Time (test code = 86260-0) 29.2 23.8-35.5 [facility] Hospitalerum or plasma sodium measurement (moles/volume)2019-11-17 16:00:00* Test Item Value Reference Range Interpretation Comments Sodium Level (test code = 2951-2) 142 136-145 [facility] Hospitalerum or plasma potassium measurement (moles/volume)2019-11-17 16:00:00* Test Item Value Reference Range Interpretation Comments Potassium Level (test code = 2823-3) 3.7 3.5-5.1 [facility] Hospitalerum or plasma chloride measurement (moles/volume)2019-11-17 16:00:00* Test Item Value Reference Range Interpretation Comments Chloride Level (test code = 2075-0) 101 98-107 [facility] Hospitalerum or plasma carbon dioxide, total measurement (moles/volume)2019-11-17 16:00:00* Test Item Value Reference Range Interpretation Comments Carbon Dioxide Level (test code = 2028-9) 26 22-29 [facility] Hospitalerum or plasma anion czh7078-72-03 16:00:00* Test Item Value Reference Range Interpretation Comments Anion Gap (test code = 17971-8) 18.7 8-16 [facility] Hospitalerum or plasma urea nitrogen measurement (mass/volume)2019-11-17 16:00:00* Test Item Value Reference Range Interpretation Comments Blood Urea Nitrogen (test code = 3094-0) 36 7-26 [facility] Hospitalerum or plasma creatinine measurement (mass/volume)2019-11-17 16:00:00* Test Item Value Reference Range Interpretation Comments Creatinine (test code = 2160-0) 3.62 0.57-1.11 [facility] Hospitalerum or plasma urea nitrogen/creatinine mass nqqro1998-37-10 16:00:00* Test Item Value Reference Range Interpretation Comments BUN/Creatinine Ratio (test code = 3097-3) 10 6-25 [facility] CenterEstimated glomerular filtration rate (GFR) spkymodfapayb6128-53-86 16:00:00* Test Item Value Reference Range Interpretation Comments Estimat Glomerular Filtration Rate (test code = 367519872) 13 >60 Ranges were taken from the National Kidney Disease Education Program and the [facility] Kidney Foundation literature.Reference ranges:60 or greater: Fcgkrj41-93 ( for 3 consecutive months): Chronic kidney disease 15 or less: Kidney failureMethodist Charlton Medical CenterGlucose nsqzcadgqdy5051-69-46 16:00:00* Test Item Value Reference Range Interpretation Comments Glucose Level (test code = HOO5323) 114 74-118 [facility] Hospitalerum or plasma calcium measurement (mass/volume)2019-11-17 16:00:00* Test Item Value Reference Range Interpretation Comments Calcium Level (test code = 79965-5) 10.0 8.4-10.2 [facility] Hospitalerum or plasma magnesium measurement (mass/volume)2019-11-17 16:00:00* Test Item Value Reference Range Interpretation Comments Magnesium Level (test code = 04319-3) 2.0 1.3-2.1 [facility] Hospitalerum or plasma total bilirubin measurement (mass/volume)2019-11-17 16:00:00* Test Item Value Reference Range Interpretation Comments Total Bilirubin (test code = 1975-2) 0.5 0.2-1.2 [facility] CenterFluoroscopic procedure less than one hour ngcjzjda2624-38-56 16:00:00* Test Item Value Reference Range Interpretation Comments Aspartate Amino Transf (AST/SGOT) (test code = Aspartate Amino Transf (AST/SGOT)) 16 5-34 [facility] Hospitalerum or plasma alanine aminotransferase measurement (enzymatic activity/volume)2019-11-17 16:00:00* Test Item Value Reference Range Interpretation Comments Alanine Aminotransferase (ALT/SGPT) (test code = 1742-6) 11 0-55 [facility] Hospitalerum or plasma protein measurement (mass/volume)2019-11-17 16:00:00* Test Item Value Reference Range Interpretation Comments Total Protein (test code = 2885-2) 7.7 6.5-8.1 [facility] Hospitalerum or plasma albumin measurement (mass/volume)2019-11-17 16:00:00* Test Item Value Reference Range Interpretation Comments Albumin (test code = 1751-7) 3.8 3.5-5.0 [facility] CenterPlasma globulin measurement (mass/volume) 2019-11-17 16:00:00* Test Item Value Reference Range Interpretation Comments Globulin (test code = 12739-8) 3.9 2.3-3.5 [facility] Hospitalerum or plasma albumin/globulin mass kowec1865-69-07 16:00:00* Test Item Value Reference Range Interpretation Comments Albumin/Globulin Ratio (test code = 1759-0) 1.0 0.8-2.0 [facility] Hospitalerum or plasma alkaline phosphatase measurement (enzymatic activity/volume)2019-11-17 16:00:00* Test Item Value Reference Range Interpretation Comments Alkaline Phosphatase (test code = 6768-6) 74 40-150 [facility] Hospitalerum or plasma creatine kinase measurement (enzymatic activity/volume)2019-11-17 16:00:00* Test Item Value Reference Range Interpretation Comments Creatine Kinase (test code = 2157-6) 13 29-168 [facility] Hospitalerum or plasma creatine kinase MB measurement (mass/volume)2019-11-17 16:00:00* Test Item Value Reference Range Interpretation Comments Creatine Kinase MB (test code = 87769-8) 0.80 0-5.0 [facility] CenterTroponin I measurement by highly sensitive enzyme augpbemjlst3718-85-99 16:00:00* Test Item Value Reference Range Interpretation Comments Troponin I (test code = 62186-8) 0.031 0-0.300 [facility] CenterBedside Immolib1554-07-60 11:56:00* Test Item Value Reference Range Interpretation Comments Bedside Glucose (test code = 01559-6) 89 70-120 Meter ID: [id number] [facility] ResourcesCapillary blood glucose measurement by glucometer (mass/volume)2019-09-10 07:11:00* Test Item Value Reference Range Interpretation Comments Bedside Glucose (test code = 80326-4) 89 70-120 Meter ID: [id number] [facility] ResourcesCapillary blood glucose measurement by glucometer (mass/volume)2019-09-10 07:11:00* Test Item Value Reference Range Interpretation Comments Bedside Glucose (test code = 97025-6) 89 70-120 Meter ID: [id number] Medical Center Southerum or plasma hepatitis B virus surface antigen detection by abkaxnbaexa8679-60-87 19:30:00* Test Item Value Reference Range Interpretation Comments Hepatitis B Surface Antigen (test code = 5196-1) Negative Negat francois Performed at: [facility] [id number] Director: Kevin Lino MD, Phone: [phone] [place], [place] [address]erum or plasma hepatitis B virus surface antigen detection by immunoassay 2019-09-09 19:30:00* Test Item Value Reference Range Interpretation Comments Hepatitis B Surface Antigen (test code = 5196-1) Negative Negat francois Performed at: [address] [id number] Director: Kevin Lino MD, Phone: [phone] Memorial Hospitalerum or plasma hepatitis B virus surface antigen detection by immunoassay 2019-09-09 19:30:00* Test Item Value Reference Range Interpretation Comments Hepatitis B Surface Antigen (test code = 5196-1) Negative Negat francois Performed at: [address] [id number] Director: Kevin Lino MD, Phone: [phone] [place], [place] [address]Hepatitis Be Kzzlvssh6360-06-18 15:30:00* Test Item Value Reference Range Interpretation Comments Hepatitis Be Antibody (test code = 65638-3) Negative Negative Performed at: [facility] [id number] Transcriptionist: Kanika Corrales MD, Phone: [phone] Charlton Medical CenterHepatitis B Surface Antibody, Iidel4507-48-97 10:48:00* Test Item Value Reference Range Interpretation Comments Hepatitis B Surface Antibody, Quant (test code = 5194-6) <3.1 Immunity>9.9 L Status of Immunity Anti-HBs Level Inconsistent with Immunity 0.0 - 9.9Consistent with Immunity >9.9CHI [facility] ResourcesHehunting[facility] B Core Total Mwwhdwpa5340-04-40 10:48:00* Test Item Value Reference Range Interpretation Comments Hepatitis B Core Total Antibody (test code = 28531-3) Negative Negative [facility] B Core IgM Nwomeunm6281-92-00 10:48:00* Test Item Value Reference Range Interpretation Comments Hepatitis B Core IgM Antibody (test code = 69222-4) Negative Ne gative Performed at: - [facility] [id number] Director: Kevin Lino MD, Phone: [phone] Memorial Hospitalodium Polpa2755-85-57 06:01:00* Test Item Value Reference Range Interpretation Comments Sodium Level (test code = 2951-2) 136 136-145 [facility] CenterPotassium Ttprf6182-53-85 06:01:00* Test Item Value Reference Range Interpretation Comments Potassium Level (test code = 2823-3) 3.7 3.5-5.1 [facility] CenterChloride Zwjao5746-82-45 06:01:00* Test Item Value Reference Range Interpretation Comments Chloride Level (test code = 2075-0) 103 98-107 [facility] CenterCarbon Dioxide Rqdot7731-10-01 06:01:00* Test Item Value Reference Range Interpretation Comments Carbon Dioxide Level (test code = 2028-9) 26 22-29 [facility] CenterAnion Vtd5286-98-45 06:01:00* Test Item Value Reference Range Interpretation Comments Anion Gap (test code = 05189-1) 10.7 8-16 [facility] CenterBlood Urea Vvdcskjr4081-19-70 06:01:00* Test Item Value Reference Range Interpretation Comments Blood Urea Nitrogen (test code = 3094-0) 32 7-26 H [facility] CenterCreatinine2020-03-16 06:01:00* Test Item Value Reference Range Interpretation Comments Creatinine (test code = 2160-0) 4.40 0.57-1.11 H [facility] CenterBUN/Creatinine Iddci1315-24-66 06:01:00* Test Item Value Reference Range Interpretation Comments BUN/Creatinine Ratio (test code = 3097-3) 7 6-25 [facility] CenterEstimat Glomerular Filtration Rate 2019-09-07 06:01:00* Test Item Value Reference Range Interpretation Comments Estimat Glomerular Filtration Rate (test code = 888348596) 10 >60 L Ranges were taken from the National Kidney Disease Education Program and the [facility] Kid[facility] Foundation literature.Reference ranges:60 or greater: Tskati37-77 ( for 3 consecutive months): Chronic kidney disease 15 or less: Kidney failureMethodist Charlton Medical CenterGlucose Fqxhf1148-96-81 06:01:00* Test Item Value Reference Range Interpretation Comments Glucose Level (test code = PYB3085) 84 74-118 [facility] CenterCalcium Ywcfo6216-15-40 06:01:00* Test Item Value Reference Range Interpretation Comments Calcium Level (test code = 17185-6) 9.0 8.4-10.2 [facility] CenterMagnesium Ilzek3147-20-22 06:01:00* Test Item Value Reference Range Interpretation Comments Magnesium Level (test code = 60023-2) 2.0 1.3-2.1 [facility] CenterTotal Kudohvoyb1710-65-70 06:01:00* Test Item Value Reference Range Interpretation Comments Total Bilirubin (test code = 1975-2) 0.6 0.2-1.2 [facility] CenterAspartate Amino Transf (AST/SGOT) 2019-09-07 06:01:00* Test Item Value Reference Range Interpretation Comments Aspartate Amino Transf (AST/SGOT) (test code = Aspartate Amino Transf (AST/SGOT)) 18 5-34 [facility] CenterAlanine Aminotransferase (ALT/SGPT) 2019-09-07 06:01:00* Test Item Value Reference Range Interpretation Comments Alanine Aminotransferase (ALT/SGPT) (test code = 1742-6) 19 0-55 [facility] CenterTotal Nbjnfan4432-06-51 06:01:00* Test Item Value Reference Range Interpretation Comments Total Protein (test code = 2885-2) 6.2 6.5-8.1 L [facility] CenterAlbumin2020-03-16 06:01:00* Test Item Value Reference Range Interpretation Comments Albumin (test code = 1751-7) 2.8 3.5-5.0 L [facility] CenterGlobulin2020-03-16 06:01:00* Test Item Value Reference Range Interpretation Comments Globulin (test code = 94543-5) 3.4 2.3-3.5 [facility] CenterAlbumin/Globulin Qeldo9576-37-45 06:01:00 * Test Item Value Reference Range Interpretation Comments Albumin/Globulin Ratio (test code = 1759-0) 0.8 0.8-2.0 [facility] CenterAlkaline Dlbcyiqyylz9198-72-34 06:01:00* Test Item Value Reference Range Interpretation Comments Alkaline Phosphatase (test code = 6768-6) 74 40-150 [facility] CenterWhite Blood Eunth9279-22-68 05:47:00* Test Item Value Reference Range Interpretation Comments White Blood Count (test code = 6690-2) 9.44 4.8-10.8 [facility] CenterRed Blood Zknam3723-90-48 05:47:00* Test Item Value Reference Range Interpretation Comments Red Blood Count (test code = 789-8) 4.58 3.6-5.1 [facility] CenterHemoglobin2020-03-16 05:47:00* Test Item Value Reference Range Interpretation Comments Hemoglobin (test code = 59876-1) 12.9 12.0-16.0 [facility] CenterHematocrit2020-03-16 05:47:00* Test Item Value Reference Range Interpretation Comments Hematocrit (test code = 4544-3) 40.4 34.2-44.1 [facility] CenterMean Corpuscular Ccvqrz6791-27-20 05:47:00* Test Item Value Reference Range Interpretation Comments Mean Corpuscular Volume (test code = 787-2) 88.2 81-99 [facility] CenterMean Corpuscular Hflevqzlmw1448-17-42 05:47:00* Test Item Value Reference Range Interpretation Comments Mean Corpuscular Hemoglobin (test code = 785-6) 28.2 28-32 [facility] CenterMean Corpuscular Hemoglobin Concent 2019-09-07 05:47:00* Test Item Value Reference Range Interpretation Comments Mean Corpuscular Hemoglobin Concent (test code = 786-4) 31.9 31-35 [facility] CenterRed Cell Distribution Utemz4557-21-44 05:47:00* Test Item Value Reference Range Interpretation Comments Red Cell Distribution Width (test code = 20929-7) 15.8 11.7 -14.4 H [facility] CenterPlatelet Tphly4785-64-22 05:47:00* Test Item Value Reference Range Interpretation Comments Platelet Count (test code = 777-3) 355 140-360 [facility] CenterNeutrophils (%) (Auto)2019-09-07 05:47:00 * Test Item Value Reference Range Interpretation Comments Neutrophils (%) (Auto) (test code = 96180-0) 62.4 38.7-80.0 [facility] CenterLymphocytes (%) (Auto)2019-09-07 05:47:00 * Test Item Value Reference Range Interpretation Comments Lymphocytes (%) (Auto) (test code = 736-9) 24.4 18.0-39.1 [facility] CenterMonocytes (%) (Auto)2019-09-07 05:47:00* Test Item Value Reference Range Interpretation Comments Monocytes (%) (Auto) (test code = 5905-5) 6.1 4.4-11.3 [facility] CenterEosinophils (%) (Auto)2019-09-07 05:47:00 * Test Item Value Reference Range Interpretation Comments Eosinophils (%) (Auto) (test code = 713-8) 5.8 0.0-6.0 [facility] CenterBasophils (%) (Auto)2019-09-07 05:47:00* Test Item Value Reference Range Interpretation Comments Basophils (%) (Auto) (test code = 706-2) 1.0 0.0-1.0 [facility] CenterIM GRANULOCYTES %2019-09-07 05:47:00* Test Item Value Reference Range Interpretation Comments IM GRANULOCYTES % (test code = IM GRANULOCYTES %) 0.3 0.0- 1.0 [facility] CenterNeutrophils # (Auto)2019-09-07 05:47:00* Test Item Value Reference Range Interpretation Comments Neutrophils # (Auto) (test code = 751-8) 5.9 2.1-6.9 [facility] CenterLymphocytes # (Auto)2019-09-07 05:47:00* Test Item Value Reference Range Interpretation Comments Lymphocytes # (Auto) (test code = 44474-5) 2.3 1.0-3.2 [facility] CenterMonocytes # (Auto)2019-09-07 05:47:00* Test Item Value Reference Range Interpretation Comments Monocytes # (Auto) (test code = 742-7) 0.6 0.2-0.8 [facility] CenterEosinophils # (Auto)2019-09-07 05:47:00* Test Item Value Reference Range Interpretation Comments Eosinophils # (Auto) (test code = 711-2) 0.6 0.0-0.4 H [facility] CenterBasophils # (Auto)2019-09-07 05:47:00* Test Item Value Reference Range Interpretation Comments Basophils # (Auto) (test code = 704-7) 0.1 0.0-0.1 [facility] CenterAbsolute Immature Granulocyte (auto 2019-09-07 05:47:00* Test Item Value Reference Range Interpretation Comments Absolute Immature Granulocyte (auto (jake t code = Absolute Immature Granulocyte (auto) 0.03 0-0.1 [facility] Hospitalerum hepatitis B virus surface antibody assay by radioimmunoassay (units/volume)2019-09-04 22:15:00* Test Item Value Reference Range Interpretation Comments Hepatitis B Surface Antibody, Quant (test code = 5194-6) <3.1 Immunity>9.9 Status of Immunity Anti-HBs Level Inconsistent with Immunity 0.0 - 9.9Consistent with Immunity >9.9[facility] ResourcesQualitative serum or plasma hepatitis B virus e antibody by enzyme cpbehbuytea0704-94-64 22:15:00* Test Item Value Reference Range Interpretation Comments Hepatitis Be Antibody (test code = 10301-1) Negative Negative Performed at: - [employer] [id number] Transcriptionist: Kanika Corrales MD, Phone: [phone] Memorial Hospitalerum or plasma hepatitis B virus core antibody detection by dcsaojmrivv4679-17-66 22:15:00* Test Item Value Reference Range Interpretation Comments Hepatitis B Core Total Antibody (test code = 90533-5) Negative Negative [facility] Hospitalerum or plasma hepatitis B virus core IgM antibody detection by lcterrohcrq0484-70-18 22:15:00* Test Item Value Reference Range Interpretation Comments Hepatitis B Core IgM Antibody (test code = 20608-5) Negative Ne gative Performed at: - [facility] [address] [id number] Director: Kevin Lino MD, Phone: [phone] Memorial Hospitalerum hepatitis B virus surface antibody assay by radioimmunoassay (units/volume)2019-09-04 22:15:00* Test Item Value Reference Range Interpretation Comments Hepatitis B Surface Antibody, Quant (test code = 5194-6) <3.1 Immunity>9.9 Status of Immunity Anti-HBs Level Inconsistent with Immunity 0.0 - 9.9Consistent with Immunity >9.9[facility] ResourcesQualitative serum or plasma hepatitis B virus e antibody by enzyme cdewlfkzilr8213-06-35 22:15:00* Test Item Value Reference Range Interpretation Comments Hepatitis Be Antibody (test code = 32363-9) Negative Negative Performed at: [facility] [address] [id number] Transcriptionist: Kanika Corrales MD, Phone: [phone] Memorial Hospitalerum or plasma hepatitis B virus core antibody detection by yusyevljnhj6914-30-75 22:15:00* Test Item Value Reference Range Interpretation Comments Hepatitis B Core Total Antibody (test code = 99758-5) Negative Negative [facility] Hospitalerum or plasma hepatitis B virus core IgM antibody detection by zmvfhfqgtsr4648-09-48 22:15:00* Test Item Value Reference Range Interpretation Comments Hepatitis B Core IgM Antibody (test code = 76471-2) Negative Ne gative Performed at: [employer] [id number] Director: Kevin Lino MD, Phone: [phone] Memorial Hospitalerum hepatitis B virus surface antibody assay by radioimmunoassay (units/volume)2019-09-04 22:15:00* Test Item Value Reference Range Interpretation Comments Hepatitis B Surface Antibody, Quant (test code = 5194-6) <3.1 Immunity>9.9 Status of Immunity Anti-HBs Level Inconsistent with Immunity 0.0 - 9.9Consistent with Immunity >9.9[facility] ResourcesQualitative serum or plasma hepatitis B virus e antibody by enzyme dqivucgjgob7777-15-98 22:15:00* Test Item Value Reference Range Interpretation Comments Hepatitis Be Antibody (test code = 76958-4) Negative Negative Performed at: [facility] [address] [id number] Transcriptionist: Kanika Corrales MD, Phone: [phone] Memorial Hospitalerum or plasma hepatitis B virus core antibody detection by zvroswueqak3045-43-94 22:15:00* Test Item Value Reference Range Interpretation Comments Hepatitis B Core Total Antibody (test code = 32928-8) Negative Negative [facility] Hospitalerum or plasma hepatitis B virus core IgM antibody detection by rdkjexemxpg8066-17-37 22:15:00* Test Item Value Reference Range Interpretation Comments Hepatitis B Core IgM Antibody (test code = 76076-9) Negative Ne gative Performed at: - [facility] [id number] Director: Kevin Lino MD, Phone: [phone] Charlton Medical CenterPhosphorus Niwwk9114-72-69 06:16:00* Test Item Value Reference Range Interpretation Comments Phosphorus Level (test code = YDP9896) 3.3 2.3-4.7 [facility] CenterPhosphorus kylbgpdmzqt9064-52-36 05:25:00 * Test Item Value Reference Range Interpretation Comments Phosphorus Level (test code = ZGA5940) 3.3 2.3-4.7 [facility] CenterPhosphorus tyqxzgzcrej6262-87-74 05:25:00 * Test Item Value Reference Range Interpretation Comments Phosphorus Level (test code = SHS6392) 3.3 2.3-4.7 [facility] CenterPhosphorus oblggzoikav3775-81-45 05:25:00 * Test Item Value Reference Range Interpretation Comments Phosphorus Level (test code = NRR5076) 3.3 2.3-4.7 [facility] CenterTriglycerides Hdpgo8685-91-84 09:23:00* Test Item Value Reference Range Interpretation Comments Triglycerides Level (test code = 2571-8) 112 0-149 [facility] CenterCholesterol Hpcoo9080-79-52 09:23:00* Test Item Value Reference Range Interpretation Comments Cholesterol Level (test code = 2093-3) 100 0-199 Less than 200 mg/dL Low Qmto455 - 239 mg/dL Borderline Plnm236 m g/dl and greater High Risk [facility] CenterLDL Gfkppnacksw0119-32-21 09:23:00* Test Item Value Reference Range Interpretation Comments LDL Cholesterol (test code = 2089-1) 45 60-130 L [facility] CenterHDL Veckjnlejhr1684-85-64 09:23:00* Test Item Value Reference Range Interpretation Comments HDL Cholesterol (test code = 2085-9) 33 40-60 L [facility] CenterCholesterol/HDL Dvmef4831-74-10 09:23:00 * Test Item Value Reference Range Interpretation Comments Cholesterol/HDL Ratio (test code = 9830-1) 3.0 3.0-3.6 [facility] Hospitalerum or plasma triglyceride measurement (mass/volume)2019-09-03 08:10:00* Test Item Value Reference Range Interpretation Comments Triglycerides Level (test code = 2571-8) 112 0-149 [facility] Hospitalerum or plasma cholesterol measurement (mass/volume)2019-09-03 08:10:00* Test Item Value Reference Range Interpretation Comments Cholesterol Level (test code = 2093-3) 100 0-199 Less than 200 mg/dL Low Oind621 - 239 mg/dL Borderline Tqqo071 m g/dl and greater High Risk [facility] Hospitalerum or plasma cholesterol in LDL measurement (mass/volume) 2019-09-03 08:10:00* Test Item Value Reference Range Interpretation Comments LDL Cholesterol (test code = 2089-1) 45 60-130 [facility] Hospitalerum or plasma cholesterol in HDL measurement (mass/volume)2019-09-03 08:10:00* Test Item Value Reference Range Interpretation Comments HDL Cholesterol (test code = 2085-9) 33 40-60 [facility] Hospitalerum or plasma total cholesterol/cholesterol in HDL mass vlesr4814-40-82 08:10:00* Test Item Value Reference Range Interpretation Comments Cholesterol/HDL Ratio (test code = 9830-1) 3.0 3.0-3.6 [facility] Hospitalerum or plasma triglyceride measurement (mass/volume)2019-09-03 08:10:00* Test Item Value Reference Range Interpretation Comments Triglycerides Level (test code = 2571-8) 112 0-149 [facility] Hospitalerum or plasma cholesterol measurement (mass/volume)2019-09-03 08:10:00* Test Item Value Reference Range Interpretation Comments Cholesterol Level (test code = 2093-3) 100 0-199 Less than 200 mg/dL Low Hjti103 - 239 mg/dL Borderline Siio811 m g/dl and greater High Risk [facility] Hospitalerum or plasma cholesterol in LDL measurement (mass/volume) 2019-09-03 08:10:00* Test Item Value Reference Range Interpretation Comments LDL Cholesterol (test code = 2089-1) 45 60-130 [facility] Hospitalerum or plasma cholesterol in HDL measurement (mass/volume)2019-09-03 08:10:00* Test Item Value Reference Range Interpretation Comments HDL Cholesterol (test code = 2085-9) 33 40-60 [facility] Hospitalerum or plasma total cholesterol/cholesterol in HDL mass wyghy6849-17-48 08:10:00* Test Item Value Reference Range Interpretation Comments Cholesterol/HDL Ratio (test code = 9830-1) 3.0 3.0-3.6 [facility] Hospitalerum or plasma triglyceride measurement (mass/volume)2019-09-03 08:10:00* Test Item Value Reference Range Interpretation Comments Triglycerides Level (test code = 2571-8) 112 0-149 [facility] Hospitalerum or plasma cholesterol measurement (mass/volume)2019-09-03 08:10:00* Test Item Value Reference Range Interpretation Comments Cholesterol Level (test code = 2093-3) 100 0-199 Less than 200 mg/dL Low Ijrq842 - 239 mg/dL Borderline Iinr343 m g/dl and greater High Risk [facility] Hospitalerum or plasma cholesterol in LDL measurement (mass/volume) 2019-09-03 08:10:00* Test Item Value Reference Range Interpretation Comments LDL Cholesterol (test code = 2089-1) 45 60-130 [facility] Hospitalerum or plasma cholesterol in HDL measurement (mass/volume)2019-09-03 08:10:00* Test Item Value Reference Range Interpretation Comments HDL Cholesterol (test code = 2085-9) 33 40-[address] [facility] CenterSerum or plasma total cholesterol/cholesterol in HDL mass bidye9579-33-01 08:10:00* Test Item Value Reference Range Interpretation Comments Cholesterol/HDL Ratio (test code = 9830-1) 3.0 3.0-3.6 [facility] CenterUrine Juaps2351-83-00 06:31:00* Test Item Value Reference Range Interpretation Comments Urine Color (test code = 5778-6) YELLOW YELLOW [facility] Gbhmafl6383-33-95 06:31:00* Test Item Value Reference Range Interpretation Comments Urine Clarity (test code = 87768-1) TURBID CLEAR H [facility] CenterUrine Specific Mbcwhow0307-85-50 06:31:00 * Test Item Value Reference Range Interpretation Comments Urine Specific [place] (test code = 5811-5) 1.025 1.010-1.02 5 [facility] yX5886-21-98 06:31:00* Test Item Value Reference Range Interpretation Comments Urine pH (test code = 25879-9) 5.5 5-7 [facility] Leukocyte Uzgguanu9005-08-49 06:31:00* Test Item Value Reference Range Interpretation Comments Urine Leukocyte Esterase (test code = 5799-2) TRACE NEGATIVE H [facility] Riawmln2059-96-78 06:31:00* Test Item Value Reference Range Interpretation Comments Urine Nitrite (test code = 03814-3) NEGATIVE NEGATIVE [facility] Zgnzhbh3193-08-89 06:31:00* Test Item Value Reference Range Interpretation Comments Urine Protein (test code = 5804-0) 3+ NEGATIVE H [facility] CenterU[facility] Glucose (UA)2019-09-03 06:31:00* Test Item Value Reference Range Interpretation Comments Urine Glucose (UA) (test code = 2349-9) NEGATIVE NEGATIVE [facility] Wclulue8655-35-72 06:31:00* Test Item Value Reference Range Interpretation Comments Urine Ketones (test code = 27936-3) 1+ NEGATIVE H [facility] Komtwccmaqep6792-86-17 06:31:00* Test Item Value Reference Range Interpretation Comments Urine Urobilinogen (test code = 61554-4) 0.2 0.2-1 [facility] Hipmrlifo0580-79-01 06:31:00* Test Item Value Reference Range Interpretation Comments Urine Bilirubin (test code = 1978-6) SMALL NEGATIVE [facility] Abmxl9686-56-34 06:31:00* Test Item Value Reference Range Interpretation Comments Urine Blood (test code = 55304-8) MODERATE NEGATIVE [facility] PDU0552-11-78 06:31:00* Test Item Value Reference Range Interpretation Comments Urine WBC (test code = 5821-4) 11-20 0-5 H [facility] GQP7985-23-10 06:31:00* Test Item Value Reference Range Interpretation Comments Urine RBC (test code = 41039-6) 21-50 0-5 H [facility] Opbwrjdj7383-68-94 06:31:00* Test Item Value Reference Range Interpretation Comments Urine Bacteria (test code = 34064-8) MODERATE NONE H [facility] Epithelial Wnhuu6522-56-08 06:31:00 * Test Item Value Reference Range Interpretation Comments Urine Epithelial Cells (test code = 37302-6) RARE NONE [facility] Amorphous Dtbqlkmz8120-18-67 06:31:00* Test Item Value Reference Range Interpretation Comments Urine Amorphous Sediment (test code = 8246-1) FEW FEW [facility] CenterU[facility] color eafxtooovwkwx6680-49-27 05:25:00* Test Item Value Reference Range Interpretation Comments Urine Color (test code = 5778-6) YELLOW YELLOW [facility] kdrgmrm3843-63-93 05:25:00* Test Item Value Reference Range Interpretation Comments Urine Clarity (test code = 15757-6) TURBID CLEAR [facility] by Test strip 2019-09-03 05:25:00* Test Item Value Reference Range Interpretation Comments Urine Specific [place] (test code = 5811-5) 1.025 1.010-1.02 5 [facility] pH measurement by automated test nfnne8773-01-06 05:25:00* Test Item Value Reference Range Interpretation Comments Urine pH (test code = 67976-6) 5.5 5-7 [facility] CenterU[facility] leukocyte esterase detection by hxdxfiba3792-62-23 05:25:00* Test Item Value Reference Range Interpretation Comments Urine Leukocyte Esterase (test code = 5799-2) TRACE NEGATIVE [facility] nitrite itazvfylq7342-45-67 05:25:00* Test Item Value Reference Range Interpretation Comments Urine Nitrite (test code = 95423-1) NEGATIVE NEGATIVE [facility] CenterU[facility] protein measurement by test strip (mass/volume)2019-09-03 05:25:00* Test Item Value Reference Range Interpretation Comments Urine Protein (test code = 5804-0) 3+ NEGATIVE [facility] CenterU[facility] glucose xcflhwjri7004-82-75 05:25:00* Test Item Value Reference Range Interpretation Comments Urine Glucose (UA) (test code = 2349-9) NEGATIVE NEGATIVE [facility] CenterUrine ketones detection by automated test uhfpc5587-02-85 05:25:00* Test Item Value Reference Range Interpretation Comments Urine Ketones (test code = 17484-3) 1+ NEGATIVE [facility] CenterUrine urobilinogen measurement by test strip (mass/volume)2019-09-03 05:25:00* Test Item Value Reference Range Interpretation Comments Urine Urobilinogen (test code = 44693-9) 0.2 0.2-1 [facility] CenterU[facility] total bilirubin measurement (mass/volume)2019-09-03 05:25:00* Test Item Value Reference Range Interpretation Comments Urine Bilirubin (test code = 1978-6) SMALL NEGATIVE [facility] CenterU[facility] erythrocytes vesqxugls0919-92-42 05:25:00* Test Item Value Reference Range Interpretation Comments Urine Blood (test code = 96694-2) MODERATE NEGATIVE [facility] CenterAutomated urine sediment leukocyte count by microscopy (number/high power field)2019-09-03 05:25:00* Test Item Value Reference Range Interpretation Comments Urine WBC (test code = 5821-4) 11-20 0-5 [facility] CenterErythrocytes detection in urine sediment by light mbingymvur4013-65-73 05:25:00* Test Item Value Reference Range Interpretation Comments Urine RBC (test code = 58429-6) 21-50 0-5 [facility] CenterBacteria detection in urine sediment by light xmurvvvyxy7299-55-82 05:25:00* Test Item Value Reference Range Interpretation Comments Urine Bacteria (test code = 53850-9) MODERATE NONE [facility] CenterEpithelial cells detection in urine sediment by light ekvrvorlgg3882-14-89 05:25:00* Test Item Value Reference Range Interpretation Comments Urine Epithelial Cells (test code = 51555-3) RARE NONE [facility] CenterAmorphous sediment detection in urine sediment by light dxvjomwiyv5625-95-02 05:25:00* Test Item Value Reference Range Interpretation Comments Urine Amorphous Sediment (test code = 8246-1) FEW FEW [facility] CenterAmorphous sediment detection in urine sediment by light bzhfihqvrv5526-05-70 05:25:00* Test Item Value Reference Range Interpretation Comments Urine Amorphous Sediment (test code = 8246-1) FEW FEW [facility] CenterAmorphous sediment detection in urine sediment by light lpzmzwakop9355-21-90 05:25:00* Test Item Value Reference Range Interpretation Comments Urine Amorphous Sediment (test code = 8246-1) FEW FEW [facility] CenterCreatine Kinase AW3827-59-98 21:27:00* Test Item Value Reference Range Interpretation Comments Creatine Kinase MB (test code = 33731-9) 0.60 0-5.0 [facility] CenterTroponin Z2391-92-85 21:27:00* Test Item Value Reference Range Interpretation Comments Troponin I (test code = HZL8863) < 0.001 0-0.300 [facility] CenterCreatine Riwpyl4954-87-47 21:18:00* Test Item Value Reference Range Interpretation Comments Creatine Kinase (test code = 2157-6) 15 29-168 L [facility] CenterCHEST SINGLE (PORTABLE)2019-09-02 19:12:00 [facility] [address] [id number] Patient Name: AWILDA ESCUDERO MR #: [id number] : 1955 Age/Sex: 64/F Req #: [id number] [facility] Physician: Ordered by: MEENAKSHI GANDHI MD Report #: [id number] Location: ER Room/Bed: Procedure: [id number] DX/CH EST SINGLE (PORTABLE) Exam Date: 09/02/19 Exam Time: 1829 REPORT STATUS: Signed EXAM INATION: CHEST SINGLE (PORTABLE) COMPARISON: Chest x-ray 08/10/2019 INDICATION: Altered level of consciousness [facility] [id number] DISCUSSION: Frontal view of the [...] COPY TO: MEENAKSHI GANDHI MD CT BRAIN CA6600-31-31 18:56:00 [facility] [address] [place] [address] Patient Name: AWILDA ESCUDERO MR #: [id number] : 1955 Age/Sex: 64[facility]F [id number] Req #: [id number] Adm Physician: Ordered by: MEENAKSHI GANDHI MD Report #: [id number] Location: ER Room/Bed: Procedure: [id number] CT/CT BRAIN WO Exam Date: 09/02/19 Exam [...] MD 00 Transcribed By: SCAR on 09/02/19 190 COPY TO: MEENAKSHI GANDHI MD Urine Asoifuj2625-90-94 07:53:00* Test Item Value Reference Range Interpretation Comments Urine Culture (test code = 630-4) No Result Data Provided [facility] Ooxutgl6652-73-66 07:53:00* Test Item Value Reference Range Interpretation Comments Urine Culture (test code = 630-4) No Result Data Provided [facility] CenterU[facility] JLK1711-69-91 20:26:00* Test Item Value Reference Range Interpretation Comments Urine WBC (test code = 5821-4) >50 0-5 H [facility] CenterU[facility] CZE2889-37-14 20:26:00* Test Item Value Reference Range Interpretation Comments Urine RBC (test code = 38783-4) 21-50 0-5 H [facility] CenterU[facility] Jxtnadvw5467-39-93 20:26:00* Test Item Value Reference Range Interpretation Comments Urine Bacteria (test code = 91209-8) MANY NONE H [facility] CenterUrine Epithelial Uhcdq9792-48-16 20:26:00 * Test Item Value Reference Range Interpretation Comments Urine Epithelial Cells (test code = 09228-7) FEW NONE [facility] CenterU[facility] BIY4783-39-19 20:26:00* Test Item Value Reference Range Interpretation Comments Urine WBC (test code = 5821-4) >50 0-5 H [facility] CenterU[facility] ENO7126-49-02 20:26:00* Test Item Value Reference Range Interpretation Comments Urine RBC (test code = 89284-5) 21-50 0-5 H [facility] CenterUrine Wslwmgjt2562-24-02 20:26:00* Test Item Value Reference Range Interpretation Comments Urine Bacteria (test code = 22951-7) MANY NONE H [facility] CenterUrine Epithelial Qbcuj8809-90-16 20:26:00 * Test Item Value Reference Range Interpretation Comments Urine Epithelial Cells (test code = 52509-1) FEW NONE [facility] CenterU[facility] Shuos3457-24-87 20:16:00* Test Item Value Reference Range Interpretation Comments Urine Color (test code = 5778-6) YELLOW YELLOW [facility] CenterU[facility] Fofpebe7798-83-53 20:16:00* Test Item Value Reference Range Interpretation Comments Urine Clarity (test code = 94338-6) CLOUDY CLEAR H [facility] CenterUrine Specific Xccwiyb1196-44-41 20:16:00 * Test Item Value Reference Range Interpretation Comments Urine Specific [place] (test code = 5811-5) 1.020 1.010-1.02 5 [facility] CenterU[facility] eT0782-39-28 20:16:00* Test Item Value Reference Range Interpretation Comments Urine pH (test code = 01478-0) 6 5-7 [facility] CenterU[facility] Leukocyte Ccisarti1816-05-18 20:16:00* Test Item Value Reference Range Interpretation Comments Urine Leukocyte Esterase (test code = 5799-2) MODERATE NEGATIVE [facility] CenterUrine Hoacrmw3420-89-64 20:16:00* Test Item Value Reference Range Interpretation Comments Urine Nitrite (test code = 55819-6) NEGATIVE NEGATIVE [facility] CenterU[facility] Pwtjmom6570-18-66 20:16:00* Test Item Value Reference Range Interpretation Comments Urine Protein (test code = 5804-0) 3+ NEGATIVE H [facility] CenterUrine Glucose (UA)2019-08-25 20:16:00* Test Item Value Reference Range Interpretation Comments Urine Glucose (UA) (test code = 2349-9) NEGATIVE NEGATIVE [facility] CenterU[facility] Ntvekgb0372-49-67 20:16:00* Test Item Value Reference Range Interpretation Comments Urine Ketones (test code = 32582-1) NEGATIVE NEGATIVE [facility] CenterU[facility] Ihixginxhrxo3920-47-56 20:16:00* Test Item Value Reference Range Interpretation Comments Urine Urobilinogen (test code = 31685-0) 0.2 0.2-1 [facility] CenterU[facility] Khycxqkjb9976-67-08 20:16:00* Test Item Value Reference Range Interpretation Comments Urine Bilirubin (test code = 1978-6) SMALL NEGATIVE [facility] CenterU[facility] Pslsr7572-11-90 20:16:00* Test Item Value Reference Range Interpretation Comments Urine Blood (test code = 92841-5) 1+ NEGATIVE [facility] CenterU[facility] Wukot4019-34-43 20:16:00* Test Item Value Reference Range Interpretation Comments Urine Color (test code = 5778-6) YELLOW YELLOW [facility] CenterUrine Dfsjgno3075-68-06 20:16:00* Test Item Value Reference Range Interpretation Comments Urine Clarity (test code = 86175-6) CLOUDY CLEAR H [facility] CenterUrine Specific Fkjxshi5221-87-82 20:16:00 * Test Item Value Reference Range Interpretation Comments Urine Specific [place] (test code = 5811-5) 1.020 1.010-1.02 5 [facility] CenterU[facility] fL3282-96-70 20:16:00* Test Item Value Reference Range Interpretation Comments Urine pH (test code = 95322-8) 6 5-7 [facility] CenterU[facility] Leukocyte Kharodru7673-77-22 20:16:00* Test Item Value Reference Range Interpretation Comments Urine Leukocyte Esterase (test code = 5799-2) MODERATE NEGATIVE [facility] CenterU[facility] Ejnfhaw6580-80-13 20:16:00* Test Item Value Reference Range Interpretation Comments Urine Nitrite (test code = 03539-7) NEGATIVE NEGATIVE [facility] CenterUrine Fdulrry0043-47-02 20:16:00* Test Item Value Reference Range Interpretation Comments Urine Protein (test code = 5804-0) 3+ NEGATIVE H [facility] CenterUrine Glucose (UA)2019-08-25 20:16:00* Test Item Value Reference Range Interpretation Comments Urine Glucose (UA) (test code = 2349-9) NEGATIVE NEGATIVE [facility] CenterUrine Mrdnmgv7018-45-84 20:16:00* Test Item Value Reference Range Interpretation Comments Urine Ketones (test code = 33544-6) NEGATIVE NEGATIVE [facility] CenterU[facility] Pygleqzmrsvm6139-55-74 20:16:00* Test Item Value Reference Range Interpretation Comments Urine Urobilinogen (test code = 86854-3) 0.2 0.2-1 [facility] CenterU[facility] Awktygecy6116-06-26 20:16:00* Test Item Value Reference Range Interpretation Comments Urine Bilirubin (test code = 1978-6) SMALL NEGATIVE [facility] CenterUrine Oryhc8436-23-45 20:16:00* Test Item Value Reference Range Interpretation Comments Urine Blood (test code = 29204-1) 1+ NEGATIVE [facility] CenterCT ABDOMEN/PELVIS LR9262-30-27 19:21:00 [facility] [address] [place] [address] Patient Name: AWILDA ESCUDERO MR #: [id number] : 1955 Age/Sex: 64/F Req #: [id number] Adm Physician: Ordered by: EHSAN BAE DO Report #: [id number] Location: ER Room/Bed: Procedure: [id number] CT/CT ABDOMEN/PELVIS WO Exam Date: 08/25/19 Exam [...] limits set by the Radiation Protocol Co mmittee ([facility]). FINDINGS: LINES and TUBES: There is [...] 36 COPY TO: EHSAN BAE DO Sodium Pjxpa5649-92-12 19:09:00* Test Item Value Reference Range Interpretation Comments Sodium Level (test code = 2951-2) 136 136-145 [facility] CenterPotassium Shvcg7651-64-73 19:09:00* Test Item Value Reference Range Interpretation Comments Potassium Level (test code = 2823-3) 3.4 3.5-5.1 L [facility] CenterChloride Ivemf9947-76-84 19:09:00* Test Item Value Reference Range Interpretation Comments Chloride Level (test code = 2075-0) 99 98-107 [facility] CenterCarbon Dioxide Nfyol1492-78-16 19:09:00* Test Item Value Reference Range Interpretation Comments Carbon Dioxide Level (test code = 2028-9) 26 22-29 [facility] CenterAnion Ppw0445-91-87 19:09:00* Test Item Value Reference Range Interpretation Comments Anion Gap (test code = 81247-6) 14.4 8-16 [facility] CenterBlood Urea Wcvkbjww6193-91-86 19:09:00* Test Item Value Reference Range Interpretation Comments Blood Urea Nitrogen (test code = 3094-0) 25 7-26 [facility] CenterCreatinine2020-03-03 19:09:00* Test Item Value Reference Range Interpretation Comments Creatinine (test code = 2160-0) 4.06 0.57-1.11 H [facility] CenterBUN/Creatinine Tbkox3461-14-74 19:09:00* Test Item Value Reference Range Interpretation Comments BUN/Creatinine Ratio (test code = 3097-3) 6 6-25 [facility] CenterEstimat Glomerular Filtration Rate 2019-08-25 19:09:00* Test Item Value Reference Range Interpretation Comments Estimat Glomerular Filtration Rate (test code = 918464941) 11 >60 L Ranges were taken from the National Kidney Disease Education Program and the [facility] Kid[facility] Foundation literature.Reference ranges:60 or greater: Btmvey11-01 ( for 3 consecutive months): Chronic kidney disease 15 or less: Kidney failureMethodist Charlton Medical CenterGlucose Xhpdu0024-66-40 19:09:00* Test Item Value Reference Range Interpretation Comments Glucose Level (test code = NUI5988) 189 74-118 H [facility] CenterCalcium Eirtt1358-49-91 19:09:00* Test Item Value Reference Range Interpretation Comments Calcium Level (test code = 14528-7) 8.8 8.4-10.2 [facility] CenterTotal Syaorvdqo8722-63-63 19:09:00* Test Item Value Reference Range Interpretation Comments Total Bilirubin (test code = 1975-2) 0.3 0.2-1.2 [facility] CenterAspartate Amino Transf (AST/SGOT) 2019-08-25 19:09:00* Test Item Value Reference Range Interpretation Comments Aspartate Amino Transf (AST/SGOT) (test code = Aspartate Amino Transf (AST/SGOT)) 25 5-34 [facility] CenterAlanine Aminotransferase (ALT/SGPT) 2019-08-25 19:09:00* Test Item Value Reference Range Interpretation Comments Alanine Aminotransferase (ALT/SGPT) (test code = 1742-6) 18 0-55 [facility] CenterTotal Kxqyvoi0109-38-86 19:09:00* Test Item Value Reference Range Interpretation Comments Total Protein (test code = 2885-2) 6.6 6.5-8.1 [facility] CenterAlbumin2020-03-03 19:09:00* Test Item Value Reference Range Interpretation Comments Albumin (test code = 1751-7) 2.8 3.5-5.0 L [facility] CenterGlobulin2020-03-03 19:09:00* Test Item Value Reference Range Interpretation Comments Globulin (test code = 62553-6) 3.8 2.3-3.5 H [facility] CenterAlbumin/Globulin Alefq4410-69-89 19:09:00 * Test Item Value Reference Range Interpretation Comments Albumin/Globulin Ratio (test code = 1759-0) 0.7 0.8-2.0 L [facility] CenterAlkaline Cofsqxlokqv0153-65-95 19:09:00* Test Item Value Reference Range Interpretation Comments Alkaline Phosphatase (test code = 6768-6) 92 40-150 [facility]odium Kaztk7393-16-30 19:09:00* Test Item Value Reference Range Interpretation Comments Sodium Level (test code = 2951-2) 136 136-145 [facility] CenterPotassium Wmpek3471-28-07 19:09:00* Test Item Value Reference Range Interpretation Comments Potassium Level (test code = 2823-3) 3.4 3.5-5.1 L [facility] CenterChloride Lowxt5844-24-48 19:09:00* Test Item Value Reference Range Interpretation Comments Chloride Level (test code = 2075-0) 99 98-107 [facility] CenterCarbon Dioxide Tziks5504-69-99 19:09:00* Test Item Value Reference Range Interpretation Comments Carbon Dioxide Level (test code = 2028-9) 26 22-29 [facility] CenterAnion Lpe5880-63-61 19:09:00* Test Item Value Reference Range Interpretation Comments Anion Gap (test code = 23099-9) 14.4 8-16 [facility] CenterBlood Urea Vwqestep1364-25-78 19:09:00* Test Item Value Reference Range Interpretation Comments Blood Urea Nitrogen (test code = 3094-0) 25 7-26 [facility] CenterCreatinine2020-03-03 19:09:00* Test Item Value Reference Range Interpretation Comments Creatinine (test code = 2160-0) 4.06 0.57-1.11 H [facility] CenterBUN/Creatinine Tlidv5213-06-71 19:09:00* Test Item Value Reference Range Interpretation Comments BUN/Creatinine Ratio (test code = 3097-3) 6 6-25 [facility] CenterEstimat Glomerular Filtration Rate 2019-08-25 19:09:00* Test Item Value Reference Range Interpretation Comments Estimat Glomerular Filtration Rate (test code = 466296862) 11 >60 L Ranges were taken from the National Kidney Disease Education Program and the [facility] Kid[facility] Foundation literature.Reference ranges:60 or greater: Zhrwqb01-74 ( for 3 consecutive months): Chronic kidney disease 15 or less: Kidney failureMethodist Charlton Medical CenterGlucose Xddfw6502-96-10 19:09:00* Test Item Value Reference Range Interpretation Comments Glucose Level (test code = QVE5916) 189 74-118 H [facility] CenterCalcium Hgnct8383-18-17 19:09:00* Test Item Value Reference Range Interpretation Comments Calcium Level (test code = 67262-3) 8.8 8.4-10.2 [facility] CenterTotal Kmmsxavls5607-83-28 19:09:00* Test Item Value Reference Range Interpretation Comments Total Bilirubin (test code = 1975-2) 0.3 0.2-1.2 [facility] CenterAspartate Amino Transf (AST/SGOT) 2019-08-25 19:09:00* Test Item Value Reference Range Interpretation Comments Aspartate Amino Transf (AST/SGOT) (test code = Aspartate Amino Transf (AST/SGOT)) 25 5-34 [facility] CenterAlanine Aminotransferase (ALT/SGPT) 2019-08-25 19:09:00* Test Item Value Reference Range Interpretation Comments Alanine Aminotransferase (ALT/SGPT) (test code = 1742-6) 18 0-55 [facility] CenterTotal Euzmeim5088-43-34 19:09:00* Test Item Value Reference Range Interpretation Comments Total Protein (test code = 2885-2) 6.6 6.5-8.1 [facility] CenterAlbumin2020-03-03 19:09:00* Test Item Value Reference Range Interpretation Comments Albumin (test code = 1751-7) 2.8 3.5-5.0 L [facility] CenterGlobulin2020-03-03 19:09:00* Test Item Value Reference Range Interpretation Comments Globulin (test code = 85592-1) 3.8 2.3-3.5 H [facility] CenterAlbumin/Globulin Wqagg1445-09-09 19:09:00 * Test Item Value Reference Range Interpretation Comments Albumin/Globulin Ratio (test code = 1759-0) 0.7 0.8-2.0 L [facility] CenterAlkaline Btqratlshid2162-26-64 19:09:00* Test Item Value Reference Range Interpretation Comments Alkaline Phosphatase (test code = 6768-6) 92 40-150 [facility] CenterWhite Blood Wnfjx3555-66-37 19:08:00* Test Item Value Reference Range Interpretation Comments White Blood Count (test code = 6690-2) 9.36 4.8-10.8 [facility] CenterRed Blood Nvsxl7123-10-33 19:08:00* Test Item Value Reference Range Interpretation Comments Red Blood Count (test code = 789-8) 4.91 3.6-5.1 [facility] CenterHemoglobin2020-03-03 19:08:00* Test Item Value Reference Range Interpretation Comments Hemoglobin (test code = 89861-5) 13.8 12.0-16.0 [facility] CenterHematocrit2020-03-03 19:08:00* Test Item Value Reference Range Interpretation Comments Hematocrit (test code = 4544-3) 42.3 34.2-44.1 [facility] CenterMean Corpuscular Pnojsl5727-93-40 19:08:00* Test Item Value Reference Range Interpretation Comments Mean Corpuscular Volume (test code = 787-2) 86.2 81-99 [facility] CenterMean Corpuscular Avrciarctg1512-31-71 19:08:00* Test Item Value Reference Range Interpretation Comments Mean Corpuscular Hemoglobin (test code = 785-6) 28.1 28-32 [facility] CenterMean Corpuscular Hemoglobin Concent 2019-08-25 19:08:00* Test Item Value Reference Range Interpretation Comments Mean Corpuscular Hemoglobin Concent (test code = 786-4) 32.6 31-35 [facility] CenterRed Cell Distribution Vplty4915-70-22 19:08:00* Test Item Value Reference Range Interpretation Comments Red Cell Distribution Width (test code = 05610-2) 15.4 11.7 -14.4 H [facility] CenterPlatelet Ivlmk9959-29-42 19:08:00* Test Item Value Reference Range Interpretation Comments Platelet Count (test code = 777-3) 397 140-360 H [facility] CenterNeutrophils (%) (Auto)2019-08-25 19:08:00 * Test Item Value Reference Range Interpretation Comments Neutrophils (%) (Auto) (test code = 08549-4) 63.2 38.7-80.0 [facility] CenterLymphocytes (%) (Auto)2019-08-25 19:08:00 * Test Item Value Reference Range Interpretation Comments Lymphocytes (%) (Auto) (test code = 736-9) 24.9 18.0-39.1 [facility] CenterMonocytes (%) (Auto)2019-08-25 19:08:00* Test Item Value Reference Range Interpretation Comments Monocytes (%) (Auto) (test code = 5905-5) 7.7 4.4-11.3 [facility] CenterEosinophils (%) (Auto)2019-08-25 19:08:00 * Test Item Value Reference Range Interpretation Comments Eosinophils (%) (Auto) (test code = 713-8) 2.5 0.0-6.0 [facility] CenterBasophils (%) (Auto)2019-08-25 19:08:00* Test Item Value Reference Range Interpretation Comments Basophils (%) (Auto) (test code = 706-2) 1.1 0.0-1.0 H [facility] CenterIM GRANULOCYTES %2019-08-25 19:08:00* Test Item Value Reference Range Interpretation Comments IM GRANULOCYTES % (test code = IM GRANULOCYTES %) 0.6 0.0- 1.0 [facility] CenterNeutrophils # (Auto)2019-08-25 19:08:00* Test Item Value Reference Range Interpretation Comments Neutrophils # (Auto) (test code = 751-8) 5.9 2.1-6.9 [facility] CenterLymphocytes # (Auto)2019-08-25 19:08:00* Test Item Value Reference Range Interpretation Comments Lymphocytes # (Auto) (test code = 98907-5) 2.3 1.0-3.2 [facility] CenterMonocytes # (Auto)2019-08-25 19:08:00* Test Item Value Reference Range Interpretation Comments Monocytes # (Auto) (test code = 742-7) 0.7 0.2-0.8 [facility] CenterEosinophils # (Auto)2019-08-25 19:08:00* Test Item Value Reference Range Interpretation Comments Eosinophils # (Auto) (test code = 711-2) 0.2 0.0-0.4 [facility] CenterBasophils # (Auto)2019-08-25 19:08:00* Test Item Value Reference Range Interpretation Comments Basophils # (Auto) (test code = 704-7) 0.1 0.0-0.1 [facility] CenterAbsolute Immature Granulocyte (auto 2019-08-25 19:08:00* Test Item Value Reference Range Interpretation Comments Absolute Immature Granulocyte (auto (jake t code = Absolute Immature Granulocyte (auto) 0.06 0-0.1 [facility] CenterWhite Blood Injli2106-77-74 19:08:00* Test Item Value Reference Range Interpretation Comments White Blood Count (test code = 6690-2) 9.36 4.8-10.8 [facility] CenterRed Blood Xrgel5262-11-94 19:08:00* Test Item Value Reference Range Interpretation Comments Red Blood Count (test code = 789-8) 4.91 3.6-5.1 [facility] CenterHemoglobin2020-03-03 19:08:00* Test Item Value Reference Range Interpretation Comments Hemoglobin (test code = 69137-9) 13.8 12.0-16.0 [facility] CenterHematocrit2020-03-03 19:08:00* Test Item Value Reference Range Interpretation Comments Hematocrit (test code = 4544-3) 42.3 34.2-44.1 [facility] CenterMean Corpuscular Tswnbe0984-98-98 19:08:00* Test Item Value Reference Range Interpretation Comments Mean Corpuscular Volume (test code = 787-2) 86.2 81-99 [facility] CenterMean Corpuscular Rrvikmnjzs2637-04-16 19:08:00* Test Item Value Reference Range Interpretation Comments Mean Corpuscular Hemoglobin (test code = 785-6) 28.1 28-32 [facility] CenterMean Corpuscular Hemoglobin Concent 2019-08-25 19:08:00* Test Item Value Reference Range Interpretation Comments Mean Corpuscular Hemoglobin Concent (test code = 786-4) 32.6 31-35 [facility] CenterRed Cell Distribution Cfqyo2173-45-01 19:08:00* Test Item Value Reference Range Interpretation Comments Red Cell Distribution Width (test code = 15210-5) 15.4 11.7 -14.4 H [facility] CenterPlatelet Kvqoi2753-67-96 19:08:00* Test Item Value Reference Range Interpretation Comments Platelet Count (test code = 777-3) 397 140-360 H [facility] CenterNeutrophils (%) (Auto)2019-08-25 19:08:00 * Test Item Value Reference Range Interpretation Comments Neutrophils (%) (Auto) (test code = 94206-0) 63.2 38.7-80.0 [facility] CenterLymphocytes (%) (Auto)2019-08-25 19:08:00 * Test Item Value Reference Range Interpretation Comments Lymphocytes (%) (Auto) (test code = 736-9) 24.9 18.0-39.1 [facility] CenterMonocytes (%) (Auto)2019-08-25 19:08:00* Test Item Value Reference Range Interpretation Comments Monocytes (%) (Auto) (test code = 5905-5) 7.7 4.4-11.3 [facility] CenterEosinophils (%) (Auto)2019-08-25 19:08:00 * Test Item Value Reference Range Interpretation Comments Eosinophils (%) (Auto) (test code = 713-8) 2.5 0.0-6.0 [facility] CenterBasophils (%) (Auto)2019-08-25 19:08:00* Test Item Value Reference Range Interpretation Comments Basophils (%) (Auto) (test code = 706-2) 1.1 0.0-1.0 H [facility] CenterIM GRANULOCYTES %2019-08-25 19:08:00* Test Item Value Reference Range Interpretation Comments IM GRANULOCYTES % (test code = IM GRANULOCYTES %) 0.6 0.0- 1.0 [facility] CenterNeutrophils # (Auto)2019-08-25 19:08:00* Test Item Value Reference Range Interpretation Comments Neutrophils # (Auto) (test code = 751-8) 5.9 2.1-6.9 [facility] CenterLymphocytes # (Auto)2019-08-25 19:08:00* Test Item Value Reference Range Interpretation Comments Lymphocytes # (Auto) (test code = 65548-7) 2.3 1.0-3.2 [facility] CenterMonocytes # (Auto)2019-08-25 19:08:00* Test Item Value Reference Range Interpretation Comments Monocytes # (Auto) (test code = 742-7) 0.7 0.2-0.8 [facility] CenterEosinophils # (Auto)2019-08-25 19:08:00* Test Item Value Reference Range Interpretation Comments Eosinophils # (Auto) (test code = 711-2) 0.2 0.0-0.4 [facility] CenterBasophils # (Auto)2019-08-25 19:08:00* Test Item Value Reference Range Interpretation Comments Basophils # (Auto) (test code = 704-7) 0.1 0.0-0.1 [facility] CenterAbsolute Immature Granulocyte (auto 2019-08-25 19:08:00* Test Item Value Reference Range Interpretation Comments Absolute Immature Granulocyte (auto (jake t code = Absolute Immature Granulocyte (auto) 0.06 0-0.1 [facility] CenterBacterial urine wjazwpr1847-86-93 19:00:00* Test Item Value Reference Range Interpretation Comments Urine Culture (test code = 630-4) ENTEROBACTER AEROGENES [facility] CenterBacteria urine bypstsm6388-00-07 19:00:00* Test Item Value Reference Range Interpretation Comments Urine Culture (test code = 630-4) ENTEROBACTER AEROGENES [facility] CenterBacterial urine dfbjeoa3428-56-25 19:00:00* Test Item Value Reference Range Interpretation Comments Urine Culture (test code = 630-4) ENTEROBACTER AEROGENES [facility] B Surface Antibody, Quant 2019-08-12 21:53:00* Test Item Value Reference Range Interpretation Comments Hepatitis B Surface Antibody, Quant (test code = 5194-6) <3.1 Immunity>9.9 L Status of Immunity Anti-HBs Level Inconsistent with Immunity 0.0 - 9.9Consistent with Immunity >9.9[facility] Be Xpthomh4799-71-42 21:53:00* Test Item Value Reference Range Interpretation Comments Hepatitis Be Antigen (test code = 07944-2) Negative Negative [facility] B Core Total Ibktoyuf3339-29-44 21:53:00* Test Item Value Reference Range Interpretation Comments Hepatitis B Core Total Antibody (test code = 95509-4) Negative Negative [facility] B Surface Zswxvkg8970-39-49 21:53:00* Test Item Value Reference Range Interpretation Comments Hepatitis B Surface Antigen (test code = 5196-1) Negative Negat francois [facility] B Core IgM Khwlttwy8980-83-82 21:53:00* Test Item Value Reference Range Interpretation Comments Hepatitis B Core IgM Antibody (test code = 12251-5) Negative Ne gative Performed at: [facility] [id number] Director: Kevin Lino MD, Phone: [phone] Methodist Hospital B Surface Antibody, Mdsgm3207-98-70 21:53:00* Test Item Value Reference Range Interpretation Comments Hepatitis B Surface Antibody, Quant (test code = 5194-6) <3.1 Immunity>9.9 L Status of Immunity Anti-HBs Level Inconsistent with Immunity 0.0 - 9.9Consistent with Immunity >9.9[facility] Be Xinhedr0184-74-57 21:53:00* Test Item Value Reference Range Interpretation Comments Hepatitis Be Antigen (test code = 49340-9) Negative Negative [facility] B Core Total Xihzfsaz0660-81-09 21:53:00* Test Item Value Reference Range Interpretation Comments Hepatitis B Core Total Antibody (test code = 51889-8) Negative Negative [facility] B Surface Pinjhkd7705-38-59 21:53:00* Test Item Value Reference Range Interpretation Comments Hepatitis B Surface Antigen (test code = 5196-1) Negative Negat francois [facility] B Core IgM Eikpctzz3101-59-77 21:53:00* Test Item Value Reference Range Interpretation Comments Hepatitis B Core IgM Antibody (test code = 08631-0) Negative Ne gative Performed at: [facility] [id number] Director: Kevin Lino MD, Phone: [phone] Methodist Hospital B Surface Antibody, Fwqhs6208-28-31 21:53:00* Test Item Value Reference Range Interpretation Comments Hepatitis B Surface Antibody, Quant (test code = 5194-6) <3.1 Immunity>9.9 L Status of Immunity Anti-HBs Level Inconsistent with Immunity 0.0 - 9.9Consistent with Immunity >9.9[facility] Be Vikunkr1512-83-66 21:53:00* Test Item Value Reference Range Interpretation Comments Hepatitis Be Antigen (test code = 28733-4) Negative Negative [facility] B Core Total Lhccegom7672-06-58 21:53:00* Test Item Value Reference Range Interpretation Comments Hepatitis B Core Total Antibody (test code = 05659-8) Negative Negative [facility] B Surface Uazcjpb9563-77-27 21:53:00* Test Item Value Reference Range Interpretation Comments Hepatitis B Surface Antigen (test code = 5196-1) Negative Negat francois [facility] B Core IgM Omarobhd3584-36-37 21:53:00* Test Item Value Reference Range Interpretation Comments Hepatitis B Core IgM Antibody (test code = 38842-4) Negative Ne gative Performed at: - [address] [id number] Director: Kevin Lino MD, Phone: [phone] [facility] Hospital Be Uljbpce3029-21-26 21:53:00* Test Item Value Reference Range Interpretation Comments Hepatitis Be Antigen (test code = 67575-6) Negative Negative [facility] B Surface Cdlceyi4181-23-86 21:53:00* Test Item Value Reference Range Interpretation Comments Hepatitis B Surface Antigen (test code = 5196-1) Negative Negat francois [facility] Nqxaims7858-05-06 15:09:00* Test Item Value Reference Range Interpretation Comments Bedside Glucose (test code = 40814-8) 107 70-120 Meter ID: [id number] [facility] Glucose 2019-08-12 15:09:00* Test Item Value Reference Range Interpretation Comments Bedside Glucose (test code = 85473-4) 107 70-120 Meter ID: [id number] [facility] Glucose 2019-08-12 15:09:00* Test Item Value Reference Range Interpretation Comments Bedside Glucose (test code = 54775-0) 107 70-120 Meter ID: [id number] Medical Center Southodium Level 2019-08-12 05:46:00* Test Item Value Reference Range Interpretation Comments Sodium Level (test code = 2951-2) 142 136-145 [facility] CenterPotassium Phira5470-12-94 05:46:00* Test Item Value Reference Range Interpretation Comments Potassium Level (test code = 2823-3) 3.6 3.5-5.1 [facility] CenterChloride Obomr1992-83-12 05:46:00* Test Item Value Reference Range Interpretation Comments Chloride Level (test code = 2075-0) 107 98-107 [facility] CenterCarbon Dioxide Tmres8635-10-79 05:46:00* Test Item Value Reference Range Interpretation Comments Carbon Dioxide Level (test code = 2028-9) 24 22-29 [facility] CenterAnion Rbr8900-88-43 05:46:00* Test Item Value Reference Range Interpretation Comments Anion Gap (test code = 08147-3) 14.6 8-16 [facility] CenterBlood Urea Rwdchrxe2218-99-40 05:46:00* Test Item Value Reference Range Interpretation Comments Blood Urea Nitrogen (test code = 3094-0) 26 7-26 [facility] CenterCreatinine2020-02-19 05:46:00* Test Item Value Reference Range Interpretation Comments Creatinine (test code = 2160-0) 5.47 0.57-1.11 H [facility] CenterBUN/Creatinine Cxzwc3339-39-30 05:46:00* Test Item Value Reference Range Interpretation Comments BUN/Creatinine Ratio (test code = 3097-3) 5 6-25 L [facility] CenterEstimat Glomerular Filtration Rate 2019-08-12 05:46:00* Test Item Value Reference Range Interpretation Comments Estimat Glomerular Filtration Rate (test code = 297285926) 8 >60 L Ranges were taken from the National Kidney Disease Education Program and the [facility] Kidney Foundation literature.Reference ranges:60 or greater: Pvilcw14-28 ( for 3 consecutive months): Chronic kidney disease 15 or less: Kidney failureMethodist Charlton Medical CenterGlucose Ywzrx9446-32-51 05:46:00* Test Item Value Reference Range Interpretation Comments Glucose Level (test code = JCS1109) 78 74-118 [facility] CenterCalcium Ucbjf8000-76-49 05:46:00* Test Item Value Reference Range Interpretation Comments Calcium Level (test code = 67348-7) 7.9 8.4-10.2 L [facility] CenterWhite Blood Itbae4578-83-29 05:29:00* Test Item Value Reference Range Interpretation Comments White Blood Count (test code = 6690-2) 8.99 4.8-10.8 [facility] CenterRed Blood Iivce1399-61-93 05:29:00* Test Item Value Reference Range Interpretation Comments Red Blood Count (test code = 789-8) 4.49 3.6-5.1 [facility] CenterHemoglobin2020-02-19 05:29:00* Test Item Value Reference Range Interpretation Comments Hemoglobin (test code = 33607-8) 12.4 12.0-16.0 [facility] CenterHematocrit2020-02-19 05:29:00* Test Item Value Reference Range Interpretation Comments Hematocrit (test code = 4544-3) 40.1 34.2-44.1 [facility] CenterMean Corpuscular Tsiuti0223-08-31 05:29:00* Test Item Value Reference Range Interpretation Comments Mean Corpuscular Volume (test code = 787-2) 89.3 81-99 [facility] CenterMean Corpuscular Vxngswlehd0682-79-34 05:29:00* Test Item Value Reference Range Interpretation Comments Mean Corpuscular Hemoglobin (test code = 785-6) 27.6 28-32 L [facility] CenterMean Corpuscular Hemoglobin Concent 2019-08-12 05:29:00* Test Item Value Reference Range Interpretation Comments Mean Corpuscular Hemoglobin Concent (test code = 786-4) 30.9 31-35 L [facility] CenterRed Cell Distribution Whrch3604-61-68 05:29:00* Test Item Value Reference Range Interpretation Comments Red Cell Distribution Width (test code = 13813-8) 16.3 11.7 -14.4 H [facility] CenterPlatelet Loyoh4428-92-23 05:29:00* Test Item Value Reference Range Interpretation Comments Platelet Count (test code = 777-3) 482 140-360 H [facility] CenterNeutrophils (%) (Auto)2019-08-12 05:29:00 * Test Item Value Reference Range Interpretation Comments Neutrophils (%) (Auto) (test code = 00820-7) 63.6 38.7-80.0 [facility] CenterLymphocytes (%) (Auto)2019-08-12 05:29:00 * Test Item Value Reference Range Interpretation Comments Lymphocytes (%) (Auto) (test code = 736-9) 25.0 18.0-39.1 [facility] CenterMonocytes (%) (Auto)2019-08-12 05:29:00* Test Item Value Reference Range Interpretation Comments Monocytes (%) (Auto) (test code = 5905-5) 6.3 4.4-11.3 [facility] CenterEosinophils (%) (Auto)2019-08-12 05:29:00 * Test Item Value Reference Range Interpretation Comments Eosinophils (%) (Auto) (test code = 713-8) 3.8 0.0-6.0 [facility] CenterBasophils (%) (Auto)2019-08-12 05:29:00* Test Item Value Reference Range Interpretation Comments Basophils (%) (Auto) (test code = 706-2) 0.9 0.0-1.0 [facility] CenterIM GRANULOCYTES %2019-08-12 05:29:00* Test Item Value Reference Range Interpretation Comments IM GRANULOCYTES % (test code = IM GRANULOCYTES %) 0.4 0.0- 1.0 [facility] CenterNeutrophils # (Auto)2019-08-12 05:29:00* Test Item Value Reference Range Interpretation Comments Neutrophils # (Auto) (test code = 751-8) 5.7 2.1-6.9 [facility] CenterLymphocytes # (Auto)2019-08-12 05:29:00* Test Item Value Reference Range Interpretation Comments Lymphocytes # (Auto) (test code = 93616-7) 2.3 1.0-3.2 [facility] CenterMonocytes # (Auto)2019-08-12 05:29:00* Test Item Value Reference Range Interpretation Comments Monocytes # (Auto) (test code = 742-7) 0.6 0.2-0.8 [facility] CenterEosinophils # (Auto)2019-08-12 05:29:00* Test Item Value Reference Range Interpretation Comments Eosinophils # (Auto) (test code = 711-2) 0.3 0.0-0.4 [facility] CenterBasophils # (Auto)2019-08-12 05:29:00* Test Item Value Reference Range Interpretation Comments Basophils # (Auto) (test code = 704-7) 0.1 0.0-0.1 [facility] CenterAbsolute Immature Granulocyte (auto 2019-08-12 05:29:00* Test Item Value Reference Range Interpretation Comments Absolute Immature Granulocyte (auto (jake t code = Absolute Immature Granulocyte (auto) 0.04 0-0.1 [facility] Hospitalerum hepatitis B virus e antigen detection by enzyme ukcxxbjiffm5464-54-06 06:25:00* Test Item Value Reference Range Interpretation Comments Hepatitis Be Antigen (test code = 13508-5) Negative Negative [facility] Hospitalerum hepatitis B virus e antigen detection by enzyme xbnwdmjmvgr5985-09-14 06:25:00* Test Item Value Reference Range Interpretation Comments Hepatitis Be Antigen (test code = 21366-9) Negative Negative [facility] Hospitalerum hepatitis B virus e antigen detection by enzyme gwcvgeklxhg0881-01-39 06:25:00* Test Item Value Reference Range Interpretation Comments Hepatitis Be Antigen (test code = 22603-9) Negative Negative [facility] CenterPhosphorus Qgawl0291-01-61 05:23:00* Test Item Value Reference Range Interpretation Comments Phosphorus Level (test code = IKZ9829) 4.3 2.3-4.7 [facility]ergnesium Fynce4581-62-46 05:23:00* Test Item Value Reference Range Interpretation Comments Magnesium Level (test code = 79867-4) 1.9 1.3-2.1 [facility] CenterPhosphorus Bywiu1974-48-66 05:23:00* Test Item Value Reference Range Interpretation Comments Phosphorus Level (test code = WYS8139) 4.3 2.3-4.7 [facility] Vewdl6394-32-27 05:23:00* Test Item Value Reference Range Interpretation Comments Magnesium Level (test code = 49884-5) 1.9 1.3-2.1 [facility] CenterPhosphorus Iqrvm4445-14-01 05:23:00* Test Item Value Reference Range Interpretation Comments Phosphorus Level (test code = PLX4109) 4.3 2.3-4.7 [facility] CenterMagnesium Pvkvj9657-10-37 05:23:00* Test Item Value Reference Range Interpretation Comments Magnesium Level (test code = 94513-2) 1.9 1.3-2.1 [facility] CenterTotal Ngqpdcqhe4208-18-40 23:32:00* Test Item Value Reference Range Interpretation Comments Total Bilirubin (test code = 1975-2) 0.4 0.2-1.2 [facility] CenterAspartate Amino Transf (AST/SGOT) 2019-08-10 23:32:00* Test Item Value Reference Range Interpretation Comments Aspartate Amino Transf (AST/SGOT) (test code = Aspartate Amino Transf (AST/SGOT)) 12 5-34 [facility] CenterAlanine Aminotransferase (ALT/SGPT) 2019-08-10 23:32:00* Test Item Value Reference Range Interpretation Comments Alanine Aminotransferase (ALT/SGPT) (test code = 1742-6) 8 0-55 [facility] CenterTotal Bghnnxh8083-19-08 23:32:00* Test Item Value Reference Range Interpretation Comments Total Protein (test code = 2885-2) 5.6 6.5-8.1 L [facility] CenterAlbumin2020-02-17 23:32:00* Test Item Value Reference Range Interpretation Comments Albumin (test code = 1751-7) 2.0 3.5-5.0 L [facility] CenterGlobulin2020-02-17 23:32:00* Test Item Value Reference Range Interpretation Comments Globulin (test code = 08443-5) 3.6 2.3-3.5 H [facility] CenterAlbumin/Globulin Jlgrb1662-59-52 23:32:00 * Test Item Value Reference Range Interpretation Comments Albumin/Globulin Ratio (test code = 1759-0) 0.6 0.8-2.0 L [facility] CenterAlkaline Czgvarczere4674-08-57 23:32:00* Test Item Value Reference Range Interpretation Comments Alkaline Phosphatase (test code = 6768-6) 77 40-150 [facility] CenterProthrombin Xrya4512-97-07 23:23:00* Test Item Value Reference Range Interpretation Comments Prothrombin Time (test code = 5902-2) 13.3 11.9-14.5 [facility] CenterProthromb Time International Ratio 2019-08-10 23:23:00* Test Item Value Reference Range Interpretation Comments Prothromb Time International Ratio (test code = 6301-6) 0.96 Oral Anticoagulant Therapy INR Values:1. Low Intensity Therapy 1.5 - 2.02 . Moderate Intensity Therapy 2.0 - 3.03. High Intensity Therapy(1) 2.5 - 3. 54. High Intensity Therapy(2) 3.0 - 4.05. Panic Value INR > 5.0 [facility] CenterProthrombin Zatm7331-65-19 23:23:00* Test Item Value Reference Range Interpretation Comments Prothrombin Time (test code = 5902-2) 13.3 11.9-14.5 [facility] CenterProthromb Time International Ratio 2019-08-10 23:23:00* Test Item Value Reference Range Interpretation Comments Prothromb Time International Ratio (test code = 6301-6) 0.96 Oral Anticoagulant Therapy INR Values:1. Low Intensity Therapy 1.5 - 2.02 . Moderate Intensity Therapy 2.0 - 3.03. High Intensity Therapy(1) 2.5 - 3. 54. High Intensity Therapy(2) 3.0 - 4.05. Panic Value INR > 5.0 [facility] CenterProthrombin Ahft5817-53-81 23:23:00* Test Item Value Reference Range Interpretation Comments Prothrombin Time (test code = 5902-2) 13.3 11.9-14.5 [facility] CenterProthromb Time International Ratio 2019-08-10 23:23:00* Test Item Value Reference Range Interpretation Comments Prothromb Time International Ratio (test code = 6301-6) 0.96 Oral Anticoagulant Therapy INR Values:1. Low Intensity Therapy 1.5 - 2.02 . Moderate Intensity Therapy 2.0 - 3.03. High Intensity Therapy(1) 2.5 - 3. 54. High Intensity Therapy(2) 3.0 - 4.05. Panic Value INR > 5.0 [facility] CenterProthrombin Obis5288-33-22 23:23:00* Test Item Value Reference Range Interpretation Comments Prothrombin Time (test code = 5902-2) 13.3 11.9-14.5 [facility] CenterProthromb Time International Ratio 2019-08-10 23:23:00* Test Item Value Reference Range Interpretation Comments Prothromb Time International Ratio (test code = 6301-6) 0.96 Oral Anticoagulant Therapy INR Values:1. Low Intensity Therapy 1.5 - 2.02 . Moderate Intensity Therapy 2.0 - 3.03. High Intensity Therapy(1) 2.5 - 3. 54. High Intensity Therapy(2) 3.0 - 4.05. Panic Value INR > 5.0 [facility] CenterCHEST SINGLE (PORTABLE)2019-08-10 21:12:00 [place] [address] Patient Name: AWILDA ESCUDERO MR #: [id number] : 1955 Age/Sex: 64/F Req #: [id number] Adm Physician: Ordered by: JOSR SAENZ MD Report #: [id number] Location: OR Room/Bed: Procedure: [id number] DX/C HEST SINGLE (PORTABLE) Exam Date: Exam [...] 9:14 PM Dictated By: VLAD JOHNSON MD Electronica lly Signed By: VLAD JOHNSON MD on 08/10/192113 Transcribed By: SCAR on 2113 COPY TO: JOSR SAENZ MD ABDOMEN-1VIEW (KU) 2019-08-10 13:39:00 [place] [address] Patient Name: AWILDA ESCUDERO MR #: [id number] : 1955 Age/Sex: 64/F Req #: [id number] Adm Physician: CELENA CHRISTENSEN MD Ordered by: EHSAN BAE DO Report #: [id number] Location: [facility] Room/Bed: [place] [address] Procedure: [id number] DX/AB DOMEN-1VIEW (KUB) Exam Date: 08/10/19 Exam [...] 08/10/19 1341 COPY TO: EHSAN BAE DO MTFJAK4998-84-82 12:08:00* Test Item Value Reference Range Interpretation Comments GLUBED (test code = GLUBED) 137 mg/dL 74-106 H Performed by certified numerical control machine operator at [facility] [id number] 05:52:00* Test Item Value Reference Range Interpretation Comments GLUBED (test code = GLUBED) 107 mg/dL 74-106 H Performed by certified numerical control machine operator at [facility] URINALYSIS [id number] 02:18:00* Test Item Value Reference Range Interpretation [...] FEW SPECIMEN COMMENTS: may straight cathUrine Source? [id number] 01:40:00* Test Item Value Reference Range Interpretation Comments GLUBED (test code = GLUBED) 129 mg/dL 74-106 H Performed by certified numerical control machine operator at [facility] [id number] 17:42:00* Test Item Value Reference Range Interpretation Comments GLUBED (test code = GLUBED) 122 mg/dL 74-106 H Performed by certified numerical control machine operator at [facility] [id number] 12:11:00* Test Item Value Reference Range Interpretation Comments GLUBED (test code = GLUBED) 111 mg/dL 74-106 H Performed by certified numerical control machine operator at [facility] BASIC METABOLIC [id number] 12:03:00* Test Item Value Reference Range Interpretation [...] CA) 7.6 mg/dL 8.5-10.1 L BASIC METABOLIC [id number] 11:59:00* Test Item Value Reference Range Interpretation [...] code = CA) mg/dL 8.5-10.1 CBC W/AUTO [id number] 11:23:00* Test Item Value Reference Range Interpretation [...] code = NRBC#) 0.00 K/mm3 0.0-0.1 N [id number] 06:00:00* Test Item Value Reference Range Interpretation Comments GLUBED (test code = GLUBED) 88 mg/dL 74-106 N Performed by certified numerical control machine operator at [facility] [id number] 18:28:00* Test Item Value Reference Range Interpretation Comments GLUBED (test code = GLUBED) 94 mg/dL 74-106 N Performed by certified numerical control machine operator at [facility] - CT HEAD/BRAIN W/O [id number] 14:49:00 Name: AWILDA ESCUDERO [facility] : 1955 Age/S: 64 / F [address] Unit #: [id number] Loc: [place] [address] Phys: Francesco Clement Peamando Griffiths DO Acct: [id number] Dis Date: Status: ADM IN PHONE #: [phone] Exam Date: 07/28/2019 1400 FAX #: [phone] Reason: INCREASED DROWSINESS EXAMS: CPT CODE: [id number] CT HEAD/BRAIN W/O CONT 71618 HISTORY: INCREASED DROWSINESS TECHNIQUE: Noncontrast 2.5 mm [...] similar to th e prior exam. Location: [facility] at 1449 Reported and sig edilberto by: Wade Adams MD PAGE 1 Signed Report (CONTINUED) Name: AWILDA ESCUDERO [facility] : 1955 Age/S: 64 / F [address] Unit #: [id number] Loc: [place] [address] Phys: Francesco Clement DO Acct: [id number] Dis Date: Status: ADM IN PHONE #: [phone] Exam Date: 07/28/2019 1400 FAX #: [phone] Reason: INCREASED DROWSINESS EXAMS: CPT CODE: [id number] CT HEAD/BRAIN W/O CONT 26686 < Continued> CC: Francesco Clement DO Technologist:Flora Mayen RT(R) CTDI: DLP: Trnscb Date/Time: 07/28/2019 (144) t.SDR.RR31 Orig Print D/T: S: 07/28/2019 (1468) PAGE 2 Signed Report [id number] 12:34:00* Test Item Value Reference Range Interpretation Comments GLUBED (test code = GLUBED) 157 mg/dL 74-106 H Performed by certified numerical control machine operator at [facility] [id number] 06:00:00* Test Item Value Reference Range Interpretation Comments GLUBED (test code = GLUBED) 107 mg/dL 74-106 H Performed by certified numerical control machine operator at [facility] [id number] 00:14:00* Test Item Value Reference Range Interpretation Comments GLUBED (test code = GLUBED) 115 mg/dL 74-106 H Performed by certified numerical control machine operator at [facility] [id number] 18:26:00* Test Item Value Reference Range Interpretation Comments GLUBED (test code = GLUBED) 104 mg/dL 74-106 N [facility] certified [facility] control [facility] BASIC METABOLIC [id number] 11:56:00* Test Item Value Reference Range Interpretation [...] CA) 7.5 mg/dL 8.5-10.1 L BASIC METABOLIC [id number] 11:50:00* Test Item Value Reference Range Interpretation [...] code = CA) mg/dL 8.5-10.1 CBC W/AUTO [id number] 11:33:00* Test Item Value Reference Range Interpretation [...] code = NRBC#) 0.00 K/mm3 0.0-0.1 N [id number] 06:56:00* Test Item Value Reference Range Interpretation Comments GLUBED (test code = GLUBED) 90 mg/dL 74-106 N Performed by certified numerical control machine operator at [facility] [id number] 00:33:00* Test Item Value Reference Range Interpretation Comments GLUBED (test code = GLUBED) 152 mg/dL 74-106 H Performed by certified numerical control machine operator at [facility] [id number] 20:28:00* Test Item Value Reference Range Interpretation Comments GLUBED (test code = GLUBED) 183 mg/dL 74-106 H Performed by certified numerical control machine operator at [facility] [id number] 16:57:00* Test Item Value Reference Range Interpretation Comments GLUBED (test code = GLUBED) 169 mg/dL 74-106 H Performed by certified numerical control machine operator at [facility] [id number] 11:42:00* Test Item Value Reference Range Interpretation Comments GLUBED (test code = GLUBED) 128 mg/dL 74-106 H Performed by certified numerical control machine operator at [facility] [id number] 07:36:00* Test Item Value Reference Range Interpretation Comments GLUBED (test code = GLUBED) 108 mg/dL 74-106 H Performed by certified numerical control machine operator at [facility] [id number] 06:27:00* Test Item Value Reference Range Interpretation Comments GLUBED (test code = GLUBED) 102 mg/dL 74-106 N Performed by certified numerical control machine operator at [facility] [id number] 00:16:00* Test Item Value Reference Range Interpretation Comments GLUBED (test code = GLUBED) 138 mg/dL 74-106 H Performed by certified numerical control machine operator at [facility] [id number] 20:28:00* Test Item Value Reference Range Interpretation Comments GLUBED (test code = GLUBED) 134 mg/dL 74-106 H Performed by certified numerical control machine operator at [facility] [id number] 17:32:00* Test Item Value Reference Range Interpretation Comments GLUBED (test code = GLUBED) 107 mg/dL 74-106 H Performed by certified numerical control machine operator at [facility] [id number] 11:36:00* Test Item Value Reference Range Interpretation Comments GLUBED (test code = GLUBED) 136 mg/dL 74-106 H Performed by certified numerical control machine operator at [facility] [id number] 05:28:00* Test Item Value Reference Range Interpretation Comments GLUBED (test code = GLUBED) 121 mg/dL 74-106 H Performed by certified numerical control machine operator at [facility] [id number] 20:08:00* Test Item Value Reference Range Interpretation Comments GLUBED (test code = GLUBED) 169 mg/dL 74-106 H Performed by certified numerical control machine operator at [facility] [id number] 17:43:00* Test Item Value Reference Range Interpretation Comments GLUBED (test code = GLUBED) 142 mg/dL 74-106 H Performed by certified numerical control machine operator at [facility] [id number] 14:04:00* Test Item Value Reference Range Interpretation Comments GLUBED (test code = GLUBED) 137 mg/dL 74-106 H Performed by certified numerical control machine operator at [facility] [id number] 11:03:00* Test Item Value Reference Range Interpretation Comments GLUBED (test code = GLUBED) 141 mg/dL 74-106 H Performed by certified numerical control machine operator at [facility] [id number] 08:42:00* Test Item Value Reference Range Interpretation Comments GLUBED (test code = GLUBED) 119 mg/dL 74-106 H Performed by certified numerical control machine operator at [facility] BASIC METABOLIC [id number] 08:40:00* Test Item Value Reference Range Interpretation [...] CA) 7.2 mg/dL 8.5-10.1 L BASIC METABOLIC [id number] 08:35:00* Test Item Value Reference Range Interpretation [...] code = CA) mg/dL 8.5-10.1 CBC W/AUTO [id number] 07:56:00* Test Item Value Reference Range Interpretation [...] DIFF REQUIRED (test code = MDIFF) NO [id number] 06:13:00* Test Item Value Reference Range Interpretation Comments GLUBED (test code = GLUBED) 123 mg/dL 74-106 H Performed by certified numerical control machine operator at [facility] [id number] 20:48:00* Test Item Value Reference Range Interpretation Comments GLUBED (test code = GLUBED) 147 mg/dL 74-106 H Performed by certified numerical control machine operator at [facility] [id number] 19:37:00* Test Item Value Reference Range Interpretation Comments GLUBED (test code = GLUBED) 143 mg/dL 74-106 H Performed by certified numerical control machine operator at [facility] [id number] 11:49:00* Test Item Value Reference Range Interpretation Comments GLUBED (test code = GLUBED) 116 mg/dL 74-106 H Performed by certified numerical control machine operator at [facility] [id number] 08:42:00* Test Item Value Reference Range Interpretation Comments GLUBED (test code = GLUBED) 118 mg/dL 74-106 H Performed by certified numerical control machine operator at [facility] [id number] 06:32:00* Test Item Value Reference Range Interpretation Comments GLUBED (test code = GLUBED) 90 mg/dL 74-106 N Performed by certified numerical control machine operator at [facility] [id number] 21:10:00* Test Item Value Reference Range Interpretation Comments GLUBED (test code = GLUBED) 129 mg/dL 74-106 H Performed by certified numerical control machine operator at [facility] BASIC METABOLIC [id number] 18:15:00* Test Item Value Reference Range Interpretation [...] CA) 7.0 mg/dL 8.5-10.1 L BASIC METABOLIC [id number] 18:10:00* Test Item Value Reference Range Interpretation [...] CALCIUM (test code = CA) mg/dL 8.5-10.1 [id number] 16:51:00* Test Item Value Reference Range Interpretation Comments GLUBED (test code = GLUBED) 159 mg/dL 74-106 H Performed by certified numerical control machine operator at [facility] CBC W/MANUAL [id number] 13:35:00* Test Item Value Reference Range Interpretation [...] code = IMMAT) 0 % 0-0 N [id number] 11:58:00* Test Item Value Reference Range Interpretation Comments GLUBED (test code = GLUBED) 129 mg/dL 74-106 H Performed by certified numerical control machine operator at [facility] CBC W/MANUAL [id number] 11:34:00* Test Item Value Reference Range Interpretation [...] code = PLTMORPH) - XR CHEST 1 [id number] 11:09:00 FAX: Francesco Champagne amando Outlook: B St: ADM FAX: Kiley Jones NP [phone] Name: AWILDA ESCUDERO [facility] : 1955 Age/S: 64/F [address] Unit #: [id number] Loc: V.[address] [place] [address] Phys: Kiley Jones NP Acct: [id number] Dis Date: Status: ADM IN PHONE #: [phone] Exam Date: 07/21/20191731 FAX #: [phone] Reason: r/o pneumonia EXAMS: CPT CODE: [id number] XR CHEST 1 V 00733 REASON FOR EXAM: r/o pneumonia Exam Order [...] of cardiomegaly this may represent CHF. Location: [facility] at 1109 Reported and signed by: Wade Adams MD CC: Francesco Clement DO; Kiley Jones NP Technologist[facility] Date/Time/By: 07/22/2019 (1109) : By: John CarmichaelRR31 Orig Print D/T: S: 07/22/2019 (111) PAG E 1 Signed Report GLUBED 2019-07-22 08:05:00* Test Item Value Reference Range Interpretation Comments GLUBED (test code = GLUBED) 92 mg/dL 74-106 N Performed by certified numerical control machine operator at [facility] [id number] 05:56:00* Test Item Value Reference Range Interpretation Comments GLUBED (test code = GLUBED) 99 mg/dL 74-106 N Performed by certified numerical control machine operator at [facility] [id number] 02:26:00* Test Item Value Reference Range Interpretation Comments GLUBED (test code = GLUBED) 115 mg/dL 74-106 H Performed by certified numerical control machine operator at [facility] URINALYSIS [id number] 16:37:00* Test Item Value Reference Range Interpretation [...] BACU) MODERATE #/HPF NONE A Urine Source? [id number] 16:18:00* Test Item Value Reference Range Interpretation Comments GLUBED (test code = GLUBED) 140 mg/dL 74-106 H Performed by certified numerical control machine operator at [facility] PROCALCITONIN (PCT)2019-07-21 14:25:00* Test Item Value Reference [...] taking into account the patients history. LACTIC [id number] 13:49:00* Test Item Value Reference Range Interpretation Comments LACTIC ACID (test code = LACT) 0.7 mmol/L 0.4-1.9 N [id number] 11:47:00* Test Item Value Reference Range Interpretation Comments GLUBED (test code = GLUBED) 188 mg/dL 74-106 H Performed by certified numerical control machine operator at [facility] [id number] 08:00:00* Test Item Value Reference Range Interpretation Comments GLUBED (test code = GLUBED) 131 mg/dL 74-106 H Performed by certified numerical control machine operator at [facility] BASIC METABOLIC [id number] 07:22:00* Test Item Value Reference Range Interpretation [...] code = CA) 7.6 mg/dL 8.5-10.1 L [id number] 07:22:00* Test Item Value Reference Range Interpretation Comments MAGNESIUM (test code = MAG) 1.5 mg/dL 1.8-2.4 L BASIC METABOLIC [id number] 07:20:00* Test Item Value Reference Range Interpretation [...] CALCIUM (test code = CA) mg/dL 8.5-10.1 [id number] 07:20:00* Test Item Value Reference Range Interpretation Comments MAGNESIUM (test code = MAG) mg/dL 1.8-2.4 CBC W/AUTO [id number] 07:03:00* Test Item Value Reference Range Interpretation [...] code = NRBC#) 0.00 K/mm3 0.0-0.1 N [id number] 05:55:00* Test Item Value Reference Range Interpretation Comments GLUBED (test code = GLUBED) 120 mg/dL 74-106 H Performed by certified numerical control machine operator at [facility] [id number] 00:30:00* Test Item Value Reference Range Interpretation Comments GLUBED (test code = GLUBED) 133 mg/dL 74-106 H Performed by certified numerical control machine operator at [facility] [id number] 20:54:00* Test Item Value Reference Range Interpretation Comments GLUBED (test code = GLUBED) 158 mg/dL 74-106 H Performed by certified numerical control machine operator at [facility] [id number] 18:09:00* Test Item Value Reference Range Interpretation Comments GLUBED (test code = GLUBED) 200 mg/dL 74-106 H Performed by certified numerical control machine operator at [facility] PARATHYROID HORMONE [id number] 17:06:00* Test Item Value Reference Range Interpretation Comments PARATHYROID HORMONE INTACT (test code = PARAI) 96.30 pgram/mL 8.4-8 8 H VITAMIN [id number] 15:09:00* Test Item Value Reference Range Interpretation Comments VITAMIN B12 (test code = VITB12) 1507 pg/mL 193-986 H THYROID PROFILE [id number] 15:09:00* Test Item Value Reference Range Interpretation [...] HYPER : < 0.35 mIU/mL VITAMIN D 1,04-QQKZXZEBS9281-20-27 15:09:00* Test Item Value Reference Range Interpretation Comments VITAMIN D 1,25-DIHYDROXY (test code = INGQ097) 9.3 pg/mL 19.9-79 .3 A Performed At: [address] [id number] Sanjai MD Ph:[phone] performed at: [facility] [address] [place] [address] BASIC METABOLIC [id number] 12:14:00* Test Item Value Reference Range Interpretation [...] CA) 7.3 mg/dL 8.5-10.1 L BASIC METABOLIC [id number] 12:05:00* Test Item Value Reference Range Interpretation [...] CALCIUM (test code = CA) mg/dL 8.5-10.1 [id number] 11:40:00* Test Item Value Reference Range Interpretation Comments GLUBED (test code = GLUBED) 187 mg/dL 74-106 H Performed by certified numerical control machine operator at [facility] CBC W/AUTO [id number] 10:58:00* Test Item Value Reference Range Interpretation [...] DIFF REQUIRED (test code = MDIFF) NO [id number] 07:45:00* Test Item Value Reference Range Interpretation Comments GLUBED (test code = GLUBED) 90 mg/dL 74-106 N Performed by certified numerical control machine operator at [facility] [id number] 06:14:00* Test Item Value Reference Range Interpretation Comments GLUBED (test code = GLUBED) 99 mg/dL 74-106 N Performed by certified numerical control machine operator at [facility] [id number] 23:48:00* Test Item Value Reference Range Interpretation Comments GLUBED (test code = GLUBED) 134 mg/dL 74-106 H Performed by certified numerical control machine operator at [facility] [id number] 16:33:00* Test Item Value Reference Range Interpretation Comments GLUBED (test code = GLUBED) 102 mg/dL 74-106 N Performed by certified numerical control machine operator at [facility] [id number] 11:26:00* Test Item Value Reference Range Interpretation Comments GLUBED (test code = GLUBED) 111 mg/dL 74-106 H Performed by certified numerical control machine operator at [facility] [id number] 08:45:00* Test Item Value Reference Range Interpretation Comments GLUBED (test code = GLUBED) 120 mg/dL 74-106 H Performed by certified numerical control machine operator at [facility] [id number] 06:12:00* Test Item Value Reference Range Interpretation Comments GLUBED (test code = GLUBED) 110 mg/dL 74-106 H Performed by certified numerical control machine operator at [facility] [id number] 00:00:00* Test Item Value Reference Range Interpretation Comments GLUBED (test code = GLUBED) 102 mg/dL 74-106 N Performed by certified numerical control machine operator at [facility] [id number] 15:36:00* Test Item Value Reference Range Interpretation Comments GLUBED (test code = GLUBED) 87 mg/dL 74-106 N Performed by certified numerical control machine operator at [facility] HEPATITIS B CORE ANTIBODY,[id number] 13:08:00* Test Item Value Reference Range Interpretation Comments HEPATITIS B CORE ANTIBODY,TOT (test code = HBCAB) Negative Nega tive Performed At: [facility] [id number] Kyle L MD Ph:[phone] [id number] 11:22:00* Test Item Value Reference Range Interpretation Comments GLUBED (test code = GLUBED) 91 mg/dL 74-106 N Performed by certified numerical control machine operator at [facility]2020-01-25 07:34:00* Test Item Value Reference Range Interpretation Comments GLUBED (test code = GLUBED) 75 mg/dL 74-106 N Performed by certified numerical control machine operator at [facility] [id number] 06:15:00* Test Item Value Reference Range Interpretation Comments GLUBED (test code = GLUBED) 89 mg/dL 74-106 N Performed by certified numerical control machine operator at [facility] AB HEPATITIS B [id number] 06:09:00* Test Item Value Reference Range Interpretation Comments AB HEPATITIS B SURFACE (test code = HBSAB) Non Reactive () Non Reactive: Inconsistent with immunity, less than 10 mIU/mL Reactive: Consistent with immunity, greater than 9.9 mIU/mLPerformed At: LabCo[address] [id number] Kevin Kwon MD Ph:[phone] [id number] 01:40:00* Test Item Value Reference Range Interpretation Comments GLUBED (test code = GLUBED) 114 mg/dL 74-106 H Performed by certified numerical control machine operator at [facility] [id number] 21:18:00* Test Item Value Reference Range Interpretation Comments GLUBED (test code = GLUBED) 161 mg/dL 74-106 H Performed by certified numerical control machine operator at [facility] [id number] 11:16:00* Test Item Value Reference Range Interpretation Comments GLUBED (test code = GLUBED) 159 mg/dL 74-106 H Performed by certified numerical control machine operator at [facility] BASIC METABOLIC [id number] 08:16:00* Test Item Value Reference Range Interpretation [...] CA) 7.1 mg/dL 8.5-10.1 L BASIC METABOLIC [id number] 08:05:00* Test Item Value Reference Range Interpretation [...] code = CA) mg/dL 8.5-10.1 CBC W/O [id number] 08:04:00* Test Item Value Reference Range Interpretation [...] code = MPV) 10.8 fL 6.7-11.0 N [id number] 07:47:00* Test Item Value Reference Range Interpretation Comments GLUBED (test code = GLUBED) 125 mg/dL 74-106 H Performed by certified numerical control machine operator at [facility] VITAMIN [id number] 06:44:00* Test Item Value Reference Range Interpretation Comments VITAMIN B12 (test code = VITB12) 1507 pg/mL 193-986 H THYROID PROFILE [id number] 06:44:00* Test Item Value Reference Range Interpretation [...] HYPER : < 0.35 mIU/mL VITAMIN D 1,69-UJKDOTNQG3745-71-24 06:44:00* Test Item Value Reference Range Interpretation Comments VITAMIN D 1,25-DIHYDROXY (test code = PEOK375) pgram/mL [id number] 06:10:00* Test Item Value Reference Range Interpretation Comments AMMONIA (test code = AMM) < 10 umol/L 11-32 L [id number] 05:32:00* Test Item Value Reference Range Interpretation Comments GLUBED (test code = GLUBED) 113 mg/dL 74-106 H Performed by certified numerical control machine operator at [facility] - CT HEAD/BRAIN W/O [id number] 23:35:00 Name: AWILDA ESCUDERO [facility] : 1955 Age/S: 64 / F [address] Unit #: [id number] Loc: [place] [address] Phys: Nadia Sow MD Acct: [id number] Dis Date: Status: ADM IN PHONE #: [phone] Exam Date: 07/16/2019 2307 FAX #: [phone] Reason: ams EXAMS: CPT CODE: [id number] CT HEAD/BRAIN W/O CONT 93736 DICTATION LOCATION: H48 HISTORY: Female, 64 years [...] by: Kathy Maria MD CC: Francesco Clement [facility] CenterNadia Loera MD Technologist:CHRISTINE MEDINA; [place]ne CTDI: DLP: Trnscb Date/Time: 07/16/2019 (2054) tZOHAIB Orig Print D/T: S: 07/16/2019 (7871) PAGE 1 Signed Report [id number] 23:14:00* Test Item Value Reference Range Interpretation Comments GLUBED (test code = GLUBED) 111 mg/dL 74-106 H Performed by certified numerical control machine operator at [facility] [id number] 16:30:00* Test Item Value Reference Range Interpretation Comments GLUBED (test code = GLUBED) 65 mg/dL 74-106 L [facility] by certified numerical control [facility]~ [id number] 08:18:00* Test Item Value Reference Range Interpretation Comments GLUBED (test code = GLUBED) 75 mg/dL 74-106 N Performed by certified numerical control machine operator at [facility] [id number] 06:47:00* Test Item Value Reference Range Interpretation Comments GLUBED (test code = GLUBED) 72 mg/dL 74-106 L Performed by certified numerical control machine operator at [facility] [id number] 00:54:00* Test Item Value Reference Range Interpretation Comments GLUBED (test code = GLUBED) 82 mg/dL 74-106 N Performed by certified numerical control machine operator at [facility] [id number] 18:39:00* Test Item Value Reference Range Interpretation Comments GLUBED (test code = GLUBED) 116 mg/dL 74-106 H Performed by certified numerical control machine operator at [facility] URINALYSIS [id number] 15:45:00* Test Item Value Reference Range Interpretation [...] #/LPF FEW Urine Source? CatheterAG HEPAT B [id number] 13:17:00* Test Item Value Reference Range Interpretation Comments AG HEPAT B SURF (test code = HBSAG) Nonreactive Index Nonreactive Blood [id number] 12:08:00* Test Item Value Reference Range Interpretation Comments Blood Culture (test code = [id number]) NO GROWTH AFTER 5 DAYS, FINAL REPORT [facility] Jstulut7470-38-70 12:08:00* Test Item Value Reference Range Interpretation Comments Blood Culture (test code = [id number]) NO GROWTH AFTER 5 DAYS, FINAL REPORT [facility] [id number] 12:08:00* Test Item Value Reference Range Interpretation Comments Blood Culture (test code = 19578033) NO GROWTH AFTER 5 DAYS, FINAL REPORT [facility] [id number] 12:08:00* Test Item Value Reference Range Interpretation Comments Blood Culture (test code = [id number]) NO GROWTH AFTER 5 DAYS, FINAL REPORT [facility] CenterGLUBED2020-01-22 11:20:00* Test Item Value Reference Range Interpretation Comments GLUBED (test code = GLUBED) 73 mg/dL 74-106 L Performed by certified numerical control machine operator at [facility] BASIC METABOLIC YFTPF5684-40-70 10:46:00* Test Item Value Reference Range Interpretation [...] code = CA) 7.8 mg/dL 8.5-10.1 L GEOXHOMDMD5430-22-98 10:46:00* Test Item Value Reference Range Interpretation Comments PHOSPHORUS (test code = PHOS) 3.7 mg/dL 2.5-4.9 N BASIC METABOLIC YGAWS3137-64-18 10:34:00* Test Item Value Reference Range Interpretation [...] CALCIUM (test code = CA) mg/dL 8.5-10.1 YSSHHKERUM4377-71-96 10:34:00* Test Item Value Reference Range Interpretation Comments PHOSPHORUS (test code = PHOS) mg/dL 2.5-4.9 CBC W/AUTO RBNO3764-74-55 10:26:00* Test Item Value Reference Range Interpretation [...] code = NRBC#) 0.00 K/mm3 0.0-0.1 N AIMYYA3989-70-88 07:46:00* Test Item Value Reference Range Interpretation Comments GLUBED (test code = GLUBED) 65 mg/dL 74-106 L Performed by certified numerical control machine operator at [facility] MIMHPY5158-03-72 05:47:00* Test Item Value Reference Range Interpretation Comments GLUBED (test code = GLUBED) 67 mg/dL 74-106 L Performed by certified numerical control machine operator at [facility] Bedside Pcesndy3111-02-59 21:13:00* Test Item Value Reference Range Interpretation Comments Bedside Glucose (test code = 18915-0) 74 70-120 Meter ID: [id number] Charlton Medical CenterPotassium Level 2019-07-14 12:16:00* Test Item Value Reference Range Interpretation Comments Potassium Level (test code = 2823-3) 3.5 3.5-5.1 [facility] CenterBlood Izgswzs7852-06-45 12:08:00* Test Item Value Reference Range Interpretation Comments Blood Culture (test code = 27326185) NO GROWTH AFTER 72 HOURS [facility] CenterHepatitis B Surface Jmutnfl8075-98-65 11:08:00* Test Item Value Reference Range Interpretation Comments Hepatitis B Surface Antigen (test code = 5196-1) Negative Testing performed by:[facility]aceuticalsP[facility] Tu[facility] HospitalHbylasl[address] [place], [place] [phone] [id number]: Kevin Lino [facility] 2019-07-13 06:02:00* Test Item Value Reference Range Interpretation Comments Sodium Level (test code = 2951-2) 139 136-145 [facility] CenterChloride Ykdug8261-83-13 06:02:00* Test Item Value Reference Range Interpretation Comments Chloride Level (test code = 2075-0) 102 98-107 [facility] CenterCarbon Dioxide Omjuh7473-81-02 06:02:00* Test Item Value Reference Range Interpretation Comments Carbon Dioxide Level (test code = 2028-9) 25 22-29 [facility] CenterAnion Wxi8613-50-23 06:02:00* Test Item Value Reference Range Interpretation Comments Anion Gap (test code = 57742-5) 15.4 8-16 [facility] CenterBlood Urea Priraxxa0760-79-53 06:02:00* Test Item Value Reference Range Interpretation Comments Blood Urea Nitrogen (test code = 3094-0) 11 7-26 [facility] CenterCreatinine2020-01-20 06:02:00* Test Item Value Reference Range Interpretation Comments Creatinine (test code = 2160-0) 3.76 0.57-1.11 H [facility] CenterBUN/Creatinine Iuohg8646-01-10 06:02:00* Test Item Value Reference Range Interpretation Comments BUN/Creatinine Ratio (test code = 3097-3) 3 6-25 L [facility] CenterEstimat Glomerular Filtration Rate 2019-07-13 06:02:00* Test Item Value Reference Range Interpretation Comments Estimat Glomerular Filtration Rate (test code = 713556998) 12 >60 L Ranges were taken from the National Kidney Disease Education Program and the [facility] Kidney Foundation literature.Reference ranges:60 or greater: Ooqzqs57-26 ( for 3 consecutive months): Chronic kidney disease 15 or less: Kidney failureMethodist Charlton Medical CenterGlucose Ousvx0645-12-44 06:02:00* Test Item Value Reference Range Interpretation Comments Glucose Level (test code = HNG7898) 65 74-118 L [facility] CenterCalcium Rnkab9687-25-50 06:02:00* Test Item Value Reference Range Interpretation Comments Calcium Level (test code = 14619-3) 7.1 8.4-10.2 L [facility] CenterWhite Blood Afejd5434-48-54 05:56:00* Test Item Value Reference Range Interpretation Comments White Blood Count (test code = 6690-2) 8.50 4.8-10.8 [facility] CenterRed Blood Itcmo9671-34-10 05:56:00* Test Item Value Reference Range Interpretation Comments Red Blood Count (test code = 789-8) 3.66 3.6-5.1 [facility] CenterHemoglobin2020-01-20 05:56:00* Test Item Value Reference Range Interpretation Comments Hemoglobin (test code = 29275-6) 9.8 12.0-16.0 L [facility] CenterHematocrit2020-01-20 05:56:00* Test Item Value Reference Range Interpretation Comments Hematocrit (test code = 4544-3) 32.5 34.2-44.1 L [facility] CenterMean Corpuscular Bznpzy2981-78-56 05:56:00* Test Item Value Reference Range Interpretation Comments Mean Corpuscular Volume (test code = 787-2) 88.8 81-99 [facility] CenterMean Corpuscular Nqgxtrwlst3851-06-17 05:56:00* Test Item Value Reference Range Interpretation Comments Mean Corpuscular Hemoglobin (test code = 785-6) 26.8 28-32 L [facility] CenterMean Corpuscular Hemoglobin Concent 2019-07-13 05:56:00* Test Item Value Reference Range Interpretation Comments Mean Corpuscular Hemoglobin Concent (test code = 786-4) 30.2 31-35 L [facility] CenterRed Cell Distribution Krarb1315-70-69 05:56:00* Test Item Value Reference Range Interpretation Comments Red Cell Distribution Width (test code = 78241-0) 15.0 11.7 -14.4 H [facility] CenterPlatelet Osptf5974-30-55 05:56:00* Test Item Value Reference Range Interpretation Comments Platelet Count (test code = 777-3) 309 140-360 [facility] CenterNeutrophils (%) (Auto)2019-07-13 05:56:00 * Test Item Value Reference Range Interpretation Comments Neutrophils (%) (Auto) (test code = 90618-9) 63.9 38.7-80.0 [facility] CenterLymphocytes (%) (Auto)2019-07-13 05:56:00 * Test Item Value Reference Range Interpretation Comments Lymphocytes (%) (Auto) (test code = 736-9) 21.8 18.0-39.1 [facility] CenterMonocytes (%) (Auto)2019-07-13 05:56:00* Test Item Value Reference Range Interpretation Comments Monocytes (%) (Auto) (test code = 5905-5) 7.4 4.4-11.3 [facility] CenterEosinophils (%) (Auto)2019-07-13 05:56:00 * Test Item Value Reference Range Interpretation Comments Eosinophils (%) (Auto) (test code = 713-8) 4.8 0.0-6.0 [facility] CenterBasophils (%) (Auto)2019-07-13 05:56:00* Test Item Value Reference Range Interpretation Comments Basophils (%) (Auto) (test code = 706-2) 0.9 0.0-1.0 [facility] CenterIM GRANULOCYTES %2019-07-13 05:56:00* Test Item Value Reference Range Interpretation Comments IM GRANULOCYTES % (test code = IM GRANULOCYTES %) 1.2 0.0- 1.0 H [facility] CenterNeutrophils # (Auto)2019-07-13 05:56:00* Test Item Value Reference Range Interpretation Comments Neutrophils # (Auto) (test code = 751-8) 5.4 2.1-6.9 [facility] CenterLymphocytes # (Auto)2019-07-13 05:56:00* Test Item Value Reference Range Interpretation Comments Lymphocytes # (Auto) (test code = 01589-9) 1.9 1.0-3.2 [facility] CenterMonocytes # (Auto)2019-07-13 05:56:00* Test Item Value Reference Range Interpretation Comments Monocytes # (Auto) (test code = 742-7) 0.6 0.2-0.8 [facility] CenterEosinophils # (Auto)2019-07-13 05:56:00* Test Item Value Reference Range Interpretation Comments Eosinophils # (Auto) (test code = 711-2) 0.4 0.0-0.4 [facility] CenterBasophils # (Auto)2019-07-13 05:56:00* Test Item Value Reference Range Interpretation Comments Basophils # (Auto) (test code = 704-7) 0.1 0.0-0.1 [facility] CenterAbsolute Immature Granulocyte (auto 2019-07-13 05:56:00* Test Item Value Reference Range Interpretation Comments Absolute Immature Granulocyte (auto (jake t code = Absolute Immature Granulocyte (auto) 0.10 0-0.1 [facility] OI5598-42-69 16:09:00 [facility] [address] [address] Patient Name: AWILDA ESCUDERO MR #: [id number] : 1955 Age/Sex: 64/F Req #: [id number] Adm Physician: CELENA CHRISTENSEN MD Ordered by: Abdirashid Alford NP Report #: [id number] Location: MED/SURG3 Room/Bed: 285-1 Procedure: [id number] CT/ CT ABDOMEN WO Exam Date: 07/10/19 [...] By: JOHNATHAN HEADLEY MD 18 Transcribed By: OMNO SALAZAR on 07/10/191618 COPY TO: ABDIRASHID ALFORD NP CT CHEST WO 2019-07-10 16:09:[address] [address] Patient Name: AWILDA ESCUDERO MR #: [id number] : 1955 Age/Sex: 64/F Req #: [id number] Adm Physician: CELENA CHRISTENSEN MD Ordered by: Abdirashid Alford NP Report #: [id number] Location: MED/SURG3 Room/Bed: 285-1 Procedure: [id number] CT/ CT CHEST WO Exam Date: 07/10/19 [...] ALFORD NP MODIFIED BA. SWALLOW 2019-07-10 14:46:00 [address] [address] Patient Name: AWILDA ESCUDERO MR #: [id number] : 1955 Age/Sex: 64/F Req #: [id number] Adm Physician: CELENA CHRISTENSEN MD Ordered by: CELENA CHRISTENSEN MD Report #: [id number] Location: MED/SURG3 Room/Bed: [facility] Procedure: [id number] DX/M ODIFIED BA. SWALLOW Exam Date: 07/09/19 [...] 1446 COPY TO: CELENA CHRISTENSEN MD Urine AEK8233-97-05 13:01:00* Test Item Value Reference Range Interpretation Comments Urine WBC (test code = 5821-4) >50 0-5 H [facility] CenterUrine KBX1659-83-36 13:01:00* Test Item Value Reference Range Interpretation Comments Urine RBC (test code = 44204-9) >50 0-5 H [facility] CenterUrine Hefifcgd6902-69-80 13:01:00* Test Item Value Reference Range Interpretation Comments Urine Bacteria (test code = 39625-5) MANY NONE H [facility] CenterUrine Epithelial Xtgpf3041-72-02 13:01:00 * Test Item Value Reference Range Interpretation Comments Urine Epithelial Cells (test code = 34293-0) MANY NONE [facility] CenterUrine FYY3002-16-44 13:01:00* Test Item Value Reference Range Interpretation Comments Urine WBC (test code = 5821-4) >50 0-5 H [facility] CenterUrine VPQ6480-05-09 13:01:00* Test Item Value Reference Range Interpretation Comments Urine RBC (test code = 90175-2) >50 0-5 H [facility] CenterUrine Rihbkcdz2085-94-17 13:01:00* Test Item Value Reference Range Interpretation Comments Urine Bacteria (test code = 61855-1) MANY NONE H [facility] CenterUrine Epithelial Vvjom4268-11-64 13:01:00 * Test Item Value Reference Range Interpretation Comments Urine Epithelial Cells (test code = 27547-1) MANY NONE [facility] CenterUrine Rfwby9744-98-84 12:48:00* Test Item Value Reference Range Interpretation Comments Urine Color (test code = 5778-6) YELLOW YELLOW [facility] CenterUrine Riuybjb9963-33-92 12:48:00* Test Item Value Reference Range Interpretation Comments Urine Clarity (test code = 66579-5) CLEAR CLEAR [facility] CenterUrine Specific Ecejlbz1377-29-79 12:48:00 * Test Item Value Reference Range Interpretation Comments Urine Specific [place] (test code = 5811-5) 1.015 1.010-1.02 5 [facility] CenterUrine iA3788-34-26 12:48:00* Test Item Value Reference Range Interpretation Comments Urine pH (test code = 85702-9) 8.5 5-7 [facility] CenterUrine Leukocyte Uojupktv6851-46-44 12:48:00* Test Item Value Reference Range Interpretation Comments Urine Leukocyte Esterase (test code = 5799-2) TRACE NEGATIVE H [facility] CenterUrine Doiwfjv4369-42-96 12:48:00* Test Item Value Reference Range Interpretation Comments Urine Nitrite (test code = 96352-3) NEGATIVE NEGATIVE [facility] CenterUrine Ssnlpvs0974-26-08 12:48:00* Test Item Value Reference Range Interpretation Comments Urine Protein (test code = 5804-0) 3+ NEGATIVE H [facility] CenterUrine Glucose (UA)2019-07-10 12:48:00* Test Item Value Reference Range Interpretation Comments Urine Glucose (UA) (test code = 2349-9) 1+ NEGATIVE H [facility] CenterUrine Obyynsp4891-52-74 12:48:00* Test Item Value Reference Range Interpretation Comments Urine Ketones (test code = 31698-9) 2+ NEGATIVE H [facility] CenterUrine Zagqojvyhtke6361-96-67 12:48:00* Test Item Value Reference Range Interpretation Comments Urine Urobilinogen (test code = 91962-4) 0.2 0.2-1 [facility] CenterUrine Gysxhinnv4539-49-97 12:48:00* Test Item Value Reference Range Interpretation Comments Urine Bilirubin (test code = 1978-6) MODERATE NEGATIVE [facility] Ngbop5733-20-74 12:48:00* Test Item Value Reference Range Interpretation Comments Urine Blood (test code = 60686-3) TRACE NEGATIVE [facility] CenterUrine Tchty3968-60-15 12:48:00* Test Item Value Reference Range Interpretation Comments Urine Color (test code = 5778-6) YELLOW YELLOW [facility] CenterUrine Mnprquv4951-18-60 12:48:00* Test Item Value Reference Range Interpretation Comments Urine Clarity (test code = 26406-1) CLEAR CLEAR [facility] Specific Exnzafe2641-68-28 12:48:00 * Test Item Value Reference Range Interpretation Comments Urine Specific [place] (test code = 5811-5) 1.015 1.010-1.02 5 [facility] CenterUrine mR2547-81-90 12:48:00* Test Item Value Reference Range Interpretation Comments Urine pH (test code = 22523-0) 8.5 5-7 [facility] CenterUrine Leukocyte Dknccayw1372-63-17 12:48:00* Test Item Value Reference Range Interpretation Comments Urine Leukocyte Esterase (test code = 5799-2) TRACE NEGATIVE H [facility] CenterUrine Tbuiwez7466-82-02 12:48:00* Test Item Value Reference Range Interpretation Comments Urine Nitrite (test code = 87001-1) NEGATIVE NEGATIVE [facility] CenterUrine Dbvvhgw7329-60-53 12:48:00* Test Item Value Reference Range Interpretation Comments Urine Protein (test code = 5804-0) 3+ NEGATIVE H [facility] CenterUrine Glucose (UA)2019-07-10 12:48:00* Test Item Value Reference Range Interpretation Comments Urine Glucose (UA) (test code = 2349-9) 1+ NEGATIVE H [facility] CenterUrine Ineitci2632-23-48 12:48:00* Test Item Value Reference Range Interpretation Comments Urine Ketones (test code = 93060-5) 2+ NEGATIVE H [facility] CenterUrine Hkieheniexhu8673-91-43 12:48:00* Test Item Value Reference Range Interpretation Comments Urine Urobilinogen (test code = 58754-7) 0.2 0.2-1 [facility] CenterUrine Mlkkudyvj8331-24-56 12:48:00* Test Item Value Reference Range Interpretation Comments Urine Bilirubin (test code = 1978-6) MODERATE NEGATIVE [facility] CenterUrine Osmet6451-13-83 12:48:00* Test Item Value Reference Range Interpretation Comments Urine Blood (test code = 29151-6) TRACE NEGATIVE [facility] wvqziny4357-49-43 11:00:00* Test Item Value Reference Range Interpretation Comments Blood Culture (test code = 79153734) NO GROWTH AFTER 5 DAYS, FINAL REPORT [facility] gdlkmue6285-22-05 11:00:00* Test Item Value Reference Range Interpretation Comments Blood Culture (test code = 26278973) NO GROWTH AFTER 5 DAYS, FINAL REPORT [facility] tthcztb3586-67-79 11:00:00* Test Item Value Reference Range Interpretation Comments Blood Culture (test code = 29492975) NO GROWTH AFTER 5 DAYS, FINAL REPORT [facility] CenterCHEST SINGLE (PORTABLE)2019-07-09 16:02:00 [address] [address] Patient Name: AWILDA ESCUDERO MR #: [id number] : 1955 Age/Sex: 64/F Req #: [id number] Adm Physician: CELENA CHRISTENSEN MD Ordered by: VIRAL SCHULZ MD Report #: [id number] Location: MED/SURG3 Room/Bed: 285-1 Procedure: [id number] DX/ELIZAEBTH ST SINGLE (PORTABLE) Exam Date: 07/09/19 Exam [...] 1603 COPY TO: ODALIS SCHULZ MD Total Lkoiusscc2538-48-45 06:10:00* Test Item Value Reference Range Interpretation Comments Total Bilirubin (test code = 1975-2) 0.3 0.2-1.2 [facility] CenterAspartate Amino Transf (AST/SGOT) 2019-07-09 06:10:00* Test Item Value Reference Range Interpretation Comments Aspartate Amino Transf (AST/SGOT) (test code = Aspartate Amino Transf (AST/SGOT)) 18 5-34 [facility] CenterAlanine Aminotransferase (ALT/SGPT) 2019-07-09 06:10:00* Test Item Value Reference Range Interpretation Comments Alanine Aminotransferase (ALT/SGPT) (test code = 1742-6) 9 0-55 [facility] CenterTotal Fcrsgfp3752-17-83 06:10:00* Test Item Value Reference Range Interpretation Comments Total Protein (test code = 2885-2) 4.8 6.5-8.1 L [facility] CenterAlbumin2020-01-16 06:10:00* Test Item Value Reference Range Interpretation Comments Albumin (test code = 1751-7) 1.9 3.5-5.0 L [facility] CenterGlobulin2020-01-16 06:10:00* Test Item Value Reference Range Interpretation Comments Globulin (test code = 79161-2) 2.9 2.3-3.5 [facility] CenterAlbumin/Globulin Dquqm2007-42-44 06:10:00 * Test Item Value Reference Range Interpretation Comments Albumin/Globulin Ratio (test code = 1759-0) 0.7 0.8-2.0 L [facility] CenterAlkaline Llvtjnqyvzm3221-34-51 06:10:00* Test Item Value Reference Range Interpretation Comments Alkaline Phosphatase (test code = 6768-6) 53 40-150 [facility] CenterCT BRAIN RC6170-28-97 11:32:00 [facility] [address] [place] [address] Patient Name: AWILDA ESCUDERO MR #: [id number] : 1955 Age/Sex: 64/F Req #: [id number] Adm Physician: CELENA CHRISTENSEN MD Ordered by: NADIA SOW MD Report #: [id number] Location: ICU Room/Bed: ICU [facility] Procedure: [id number] CT /CT BRAIN WO Exam Date: Exam [...] NADIA SOW MD CHEST SINGLE (PORTABLE)2019-07-07 06:47:00 [address] [address] Patient Name: AWILDA ESCUDERO MR #: [id number] : 1955 Age/Sex: 64/F Req #: [id number] Adm Physician: CELENA CHRISTENSEN MD Ordered by: VIRAL SCHULZ MD Report #: [id number] Location: ICU Room/Bed: ICU 1911 Procedure: [id number] DX/[facility] ST SINGLE (PORTABLE) Exam Date: 07/07/19 [...] TO: VIRAL SCHULZ MD Differential Total Cells Xtedqnf6786-21-78 06:43:00* Test Item Value Reference Range Interpretation Comments Differential Total Cells Counted (test code = Differen tial Total Cells Counted) 100 [facility] CenterNeutrophils % (Manual)2019-07-06 06:43:00 * Test Item Value Reference Range Interpretation Comments Neutrophils % (Manual) (test code = 48180-6) 82 40-74 H [facility] CenterLymphocytes % (Manual)2019-07-06 06:43:00 * Test Item Value Reference Range Interpretation Comments Lymphocytes % (Manual) (test code = 737-7) 15 19-48 L [facility] CenterMonocytes % (Manual)2019-07-06 06:43:00* Test Item Value Reference Range Interpretation Comments Monocytes % (Manual) (test code = 744-3) 3 3.4-9.0 L [facility] CenterPlatelet Mcyqcleh5187-09-67 06:43:00* Test Item Value Reference Range Interpretation Comments Platelet Estimate (test code = 31475-8) ADEQUATE [facility] CenterPlatelet Morphology Bsethqr1315-31-38 06:43:00* Test Item Value Reference Range Interpretation Comments Platelet Morphology Comment (test code = 99955-0) NORMAL [facility] CenterRed Cell Morphology Wkitocg0602-45-83 06:43:00* Test Item Value Reference Range Interpretation Comments Red Cell Morphology Comment (test code = 6742-1) NORMAL [facility] CenterDifferential Total Cells Counted 2019-07-06 06:43:00* Test Item Value Reference Range Interpretation Comments Differential Total Cells Counted (test code = Differen tial Total Cells Counted) 100 [facility] CenterNeutrophils % (Manual)2019-07-06 06:43:00 * Test Item Value Reference Range Interpretation Comments Neutrophils % (Manual) (test code = 68450-3) 82 40-74 H [facility] CenterLymphocytes % (Manual)2019-07-06 06:43:00 * Test Item Value Reference Range Interpretation Comments Lymphocytes % (Manual) (test code = 737-7) 15 19-48 L [facility] CenterMonocytes % (Manual)2019-07-06 06:43:00* Test Item Value Reference Range Interpretation Comments Monocytes % (Manual) (test code = 744-3) 3 3.4-9.0 L [facility] CenterPlatelet Plhssizf2904-47-75 06:43:00* Test Item Value Reference Range Interpretation Comments Platelet Estimate (test code = 39676-1) ADEQUATE [facility] CenterPlatelet Morphology Wbmhhqe7671-15-63 06:43:00* Test Item Value Reference Range Interpretation Comments Platelet Morphology Comment (test code = 92465-6) NORMAL [facility] CenterRed Cell Morphology Rmuioxr3422-84-59 06:43:00* Test Item Value Reference Range Interpretation Comments Red Cell Morphology Comment (test code = 6742-1) NORMAL [facility] CenterDifferential Total Cells Counted 2019-07-06 06:43:00* Test Item Value Reference Range Interpretation Comments Differential Total Cells Counted (test code = Differen tial Total Cells Counted) 100 [facility] CenterNeutrophils % (Manual)2019-07-06 06:43:00 * Test Item Value Reference Range Interpretation Comments Neutrophils % (Manual) (test code = 92215-3) 82 40-74 H [facility] CenterLymphocytes % (Manual)2019-07-06 06:43:00 * Test Item Value Reference Range Interpretation Comments Lymphocytes % (Manual) (test code = 737-7) 15 19-48 L [facility] CenterMonocytes % (Manual)2019-07-06 06:43:00* Test Item Value Reference Range Interpretation Comments Monocytes % (Manual) (test code = 744-3) 3 3.4-9.0 L [facility] CenterPlatelet Svxiooca9831-59-67 06:43:00* Test Item Value Reference Range Interpretation Comments Platelet Estimate (test code = 95152-4) ADEQUATE [facility] CenterPlatelet Morphology Pfltizh5541-88-13 06:43:00* Test Item Value Reference Range Interpretation Comments Platelet Morphology Comment (test code = 55365-8) NORMAL [facility] CenterRed Cell Morphology Dpefycb5009-84-16 06:43:00* Test Item Value Reference Range Interpretation Comments Red Cell Morphology Comment (test code = 6742-1) NORMAL [facility] CenterDifferential Total Cells Counted 2019-07-06 06:43:00* Test Item Value Reference Range Interpretation Comments Differential Total Cells Counted (test code = Differen tial Total Cells Counted) 100 [facility] CenterNeutrophils % (Manual)2019-07-06 06:43:00 * Test Item Value Reference Range Interpretation Comments Neutrophils % (Manual) (test code = 25691-7) 82 40-74 H [facility] CenterLymphocytes % (Manual)2019-07-06 06:43:00 * Test Item Value Reference Range Interpretation Comments Lymphocytes % (Manual) (test code = 737-7) 15 19-48 L [facility] CenterMonocytes % (Manual)2019-07-06 06:43:00* Test Item Value Reference Range Interpretation Comments Monocytes % (Manual) (test code = 744-3) 3 3.4-9.0 L [facility] CenterPlatelet Nyhqxhvw4642-53-80 06:43:00* Test Item Value Reference Range Interpretation Comments Platelet Estimate (test code = 96268-4) ADEQUATE [facility] CenterPlatelet Morphology Narrhwv6811-18-35 06:43:00* Test Item Value Reference Range Interpretation Comments Platelet Morphology Comment (test code = 79657-2) NORMAL [facility] CenterRed Cell Morphology Nuznjqb4460-37-05 06:43:00* Test Item Value Reference Range Interpretation Comments Red Cell Morphology Comment (test code = 6742-1) NORMAL [facility] CenterDifferential Total Cells Counted 2019-07-06 06:43:00* Test Item Value Reference Range Interpretation Comments Differential Total Cells Counted (test code = Sinai tial Total Cells Counted) 100 [facility] CenterNeutrophils % (Manual)2019-07-06 06:43:00 * Test Item Value Reference Range Interpretation Comments Neutrophils % (Manual) (test code = 67193-2) 82 40-74 H [facility] CenterLymphocytes % (Manual)2019-07-06 06:43:00 * Test Item Value Reference Range Interpretation Comments Lymphocytes % (Manual) (test code = 737-7) 15 19-48 L [facility] CenterMonocytes % (Manual)2019-07-06 06:43:00* Test Item Value Reference Range Interpretation Comments Monocytes % (Manual) (test code = 744-3) 3 3.4-9.0 L [facility] CenterPlatelet Gsakktap5335-15-85 06:43:00* Test Item Value Reference Range Interpretation Comments Platelet Estimate (test code = 45478-5) ADEQUATE [facility] CenterPlatelet Morphology Rpmbgtu2707-38-54 06:43:00* Test Item Value Reference Range Interpretation Comments Platelet Morphology Comment (test code = 87891-7) NORMAL [facility] CenterRed Cell Morphology Ubixevs2550-28-50 06:43:00* Test Item Value Reference Range Interpretation Comments Red Cell Morphology Comment (test code = 6742-1) NORMAL [facility] CenterMagnesium Eripa1522-22-88 03:31:00* Test Item Value Reference Range Interpretation Comments Magnesium Level (test code = 18909-9) 1.5 1.3-2.1 [facility] CenterFluoroscopic procedure less than one hour aqdyzpys4980-60-44 02:00:00* Test Item Value Reference Range Interpretation Comments Differential Total Cells Counted (test code = Sinai tial Total Cells Counted) 100 [facility]100 leukocytes 2019-07-06 02:00:00* Test Item Value Reference Range Interpretation Comments Neutrophils % (Manual) (test code = 26596-3) 82 40-74 [facility] blood lymphocytes/100 leukocytes 2019-07-06 02:00:00* Test Item Value Reference Range Interpretation Comments Lymphocytes % (Manual) (test code = 737-7) 15 19-48 [facility] blood monocytes/100 leukocytes 2019-07-06 02:00:00* Test Item Value Reference Range Interpretation Comments Monocytes % (Manual) (test code = 744-3) 3 3.4-9.0 [facility] CenterBlood platelets count by estimate (number/volume)2019-07-06 02:00:00* Test Item Value Reference Range Interpretation Comments Platelet Estimate (test code = 38527-4) ADEQUATE [facility] CenterPlatelet sammblmhdx4537-44-01 02:00:00* Test Item Value Reference Range Interpretation Comments Platelet Morphology Comment (test code = 39686-0) NORMAL [facility] CenterRBC dxjsnamfzg7123-79-15 02:00:00* Test Item Value Reference Range Interpretation Comments Red Cell Morphology Comment (test code = 6742-1) NORMAL [facility] CenterFluoroscopic procedure less than one hour rxsairpf3197-15-81 02:00:00* Test Item Value Reference Range Interpretation Comments Differential Total Cells Counted (test code = Differrocco tial Total Cells Counted) 100 [facility] blood neutrophils/100 leukocytes 2019-07-06 02:00:00* Test Item Value Reference Range Interpretation Comments Neutrophils % (Manual) (test code = 05162-8) 82 40-74 [facility] blood lymphocytes/100 leukocytes 2019-07-06 02:00:00* Test Item Value Reference Range Interpretation Comments Lymphocytes % (Manual) (test code = 737-7) 15 -48 [facility] blood monocytes/100 leukocytes 2019-07-06 02:00:00* Test Item Value Reference Range Interpretation Comments Monocytes % (Manual) (test code = 744-3) 3 3.4-9.0 [facility] CenterBlood platelets count by estimate (number/volume)2019-07-06 02:00:00* Test Item Value Reference Range Interpretation Comments Platelet Estimate (test code = 30228-2) ADEQUATE [facility] CenterPlatelet lqgymofvfk7742-52-61 02:00:00* Test Item Value Reference Range Interpretation Comments Platelet Morphology Comment (test code = 61305-0) NORMAL [facility] CenterRB xqskzqrcnt4014-68-00 02:00:00* Test Item Value Reference Range Interpretation Comments Red Cell Morphology Comment (test code = 6742-1) NORMAL [facility] CenterFluoroscopic procedure less than one hour zewhronl3446-83-48 02:00:00* Test Item Value Reference Range Interpretation Comments Differential Total Cells Counted (test code = Sinai tial Total Cells Counted) 100 [facility] blood neutrophils/100 leukocytes 2019-07-06 02:00:00* Test Item Value Reference Range Interpretation Comments Neutrophils % (Manual) (test code = 76917-0) 82 40-74 [facility] blood lymphocytes/100 leukocytes 2019-07-06 02:00:00* Test Item Value Reference Range Interpretation Comments Lymphocytes % (Manual) (test code = 737-7) 15 -48 [facility] blood monocytes/100 leukocytes 2019-07-06 02:00:00* Test Item Value Reference Range Interpretation Comments Monocytes % (Manual) (test code = 744-3) 3 3.4-9.0 [facility] CenterBlood platelets count by estimate (number/volume)2019-07-06 02:00:00* Test Item Value Reference Range Interpretation Comments Platelet Estimate (test code = 29962-7) ADEQUATE [facility] CenterPlatelet frsqmudqxu3029-92-69 02:00:00* Test Item Value Reference Range Interpretation Comments Platelet Morphology Comment (test code = 73897-3) NORMAL [facility] CenterRBC uxvocnxuhw1571-70-08 02:00:00* Test Item Value Reference Range Interpretation Comments Red Cell Morphology Comment (test code = 6742-1) NORMAL [facility] CenterCHEST SINGLE (PORTABLE)2019-07-05 09:33:00 [facility] [address] [place] [address] Patient Name: AWILDA ESCUDERO MR #: [id number] : 1955 Age/Sex: 64/F Req #: [id number] Adm Physician: CELENA CHRISTENSEN MD Ordered by: VIRAL SCHULZ MD Report #: [id number] Location: ICU Room/Bed: [place] [address] Procedure: [id number] DX/ELIZAB[facility] ST SINGLE (PORTABLE) Exam Date: 07/05/19 [...] (test code = 714-6) 1 0-7 [facility] CenterEosinophils % (Manual)2019-07-05 08:49:00 * Test Item Value Reference Range Interpretation Comments Eosinophils % (Manual) (test code = 714-6) 1 0-7 [facility] CenterEosinophils % (Manual)2019-07-05 08:49:00 * Test Item Value Reference Range Interpretation Comments Eosinophils % (Manual) (test code = 714-6) 1 0-7 [facility] ([facility])2019-07-05 08:49:00 * Test Item Value Reference Range Interpretation Comments Eosinophils % (Manual) (test code = 714-6) 1 0-7 [facility] CenterEosinophils % (Manual)2019-07-05 08:49:00 * Test Item Value Reference Range Interpretation Comments Eosinophils % (Manual) (test code = 714-6) 1 0-7 [facility] eosinophil count as percentage of total jyklpffrwx4947-16-63 02:20:00* Test Item Value Reference Range Interpretation Comments Eosinophils % (Manual) (test code = 714-6) 1 0-7 [facility] eosinophil count as percentage of total znpueisbmg9578-67-88 02:20:00* Test Item Value Reference Range Interpretation Comments Eosinophils % (Manual) (test code = 714-6) 1 0-7 [facility] blood eosinophil count as percentage of total ihatnkyrro7801-42-79 02:20:00* Test Item Value Reference Range Interpretation Comments Eosinophils % (Manual) (test code = 714-6) 1 0-7 [facility] CenterBasophils % (Manual)2019-07-04 08:48:00* Test Item Value Reference Range Interpretation Comments Basophils % (Manual) (test code = 87523-7) 1 0-1.5 [facility] CenterBasophils % (Manual)2019-07-04 08:48:00* Test Item Value Reference Range Interpretation Comments Basophils % (Manual) (test code = 49477-0) 1 0-1.5 [facility] CenterBasophils % (Manual)2019-07-04 08:48:00* Test Item Value Reference Range Interpretation Comments Basophils % (Manual) (test code = 15786-7) 1 0-1.5 [facility] CenterBasophils % (Manual)2019-07-04 08:48:00* Test Item Value Reference Range Interpretation Comments Basophils % (Manual) (test code = 77879-1) 1 0-1.5 [facility] CenterBasophils % (Manual)2019-07-04 08:48:00* Test Item Value Reference Range Interpretation Comments Basophils % (Manual) (test code = 31245-1) 1 0-1.5 [facility] CenterManual basophil tqsqhsfceu5850-56-73 02:15:00* Test Item Value Reference Range Interpretation Comments Basophils % (Manual) (test code = 33391-9) 1 0-1.5 [facility] CenterManual basophil tpbdzqdcmq5009-40-70 02:15:00* Test Item Value Reference Range Interpretation Comments Basophils % (Manual) (test code = 07900-7) 1 0-1.5 [facility] basophil vcjetpmdny5185-78-91 02:15:00* Test Item Value Reference Range Interpretation Comments Basophils % (Manual) (test code = 41873-5) 1 0-1.5 [facility] Resources[facility] LMEJT8760-07-63 20:54:00 [facility] [address] [address] Patient Name: AWILDA ESCUDERO MR #: [id number] : 1955 Age/Sex: 64/F Req #: [id number] Adm Physician: CELENA CHRISTENSEN MD Ordered by: NADIA SOW MD Report #: [id number] Location: ICU Room/Bed: ICU 191 Procedure: [id number] CT /CTA BRAIN Exam Date: 07/03/19 Exam [...] the arterial circulation of the neck and [place] were reformatted from th e [...] bilateral superior cerebellar arteries and left P1 COMPENSATION AND BENEFITS ADMINISTRATOR segment. Posterior cerebral arteries: Patent bilaterally. The right P1 segment is not visualized and may be absent or hypoplastic beyond resolution of CTA and there is a prom inent right posterior communicator artery which supplies the right COMPENSATION AND BENEFITS ADMINISTRATOR (- type COMPENSATION AND BENEFITS ADMINISTRATOR origin). Anatomical variants: Acom: Patent. Pcoms: Patent bila terally. Right -type COMPENSATION AND BENEFITS ADMINISTRATOR origin. Vertebral arteries: Codominant. Add itional findings: [...] basilar ar ciaran. 5. Anatomical variant right COMPENSATION AND BENEFITS ADMINISTRATOR origin. Signed by: Dr. Ronald Wharton M.D. on 07/03/2019 9:42 PM Dictated By: RONALD WHARTON MD Elec tronically Signed By: RONALD WHARTON MD on 07/03/192141 Transcribed By: MONO SALAZAR on 07/03/192141 COPY TO: NADIA SOW MD CTA NECK 2019-07-03 20:54:00 [place] [address] Patient Name: AWILDA ESCUDERO MR #: [id number] : 1955 Age/Sex: 64/F Req #: [id number] Adm Physician: CELENA CHRISTENSEN MD Ordered by: NADIA SOW MD Report #: [id number] Location: ICU Room/Bed: ICU [facility] Procedure: [id number] CT /CTA NECK Exam Date: 07/03/19 Exam [...] a rterial circulation of the neck and [place] were reformatted from the axial [...] bilateral superior cerebellar arteries and left P1 COMPENSATION AND BENEFITS ADMINISTRATOR segment. Posterior cerebral arteries: Patent bilaterally. The right P1 segment is not visualized and may be absent or hypoplastic beyond resolution of CTA and there is a promi nent right posterior communicator artery which supplies the right COMPENSATION AND BENEFITS ADMINISTRATOR (-t ype COMPENSATION AND BENEFITS ADMINISTRATOR origin). Anatomical variants: Acom: Patent. Pcoms: Patent bilat erally. Right -type COMPENSATION AND BENEFITS ADMINISTRATOR origin. Vertebral arteries: Codominant. Jesus tional findings: [...] basilar art orlin. 5. Anatomical variant right COMPENSATION AND BENEFITS ADMINISTRATOR origin. Signed by: Dr. Ronald Wharton M.D. on 07/03/2019 9:42 PM Dictated By: RONALD WHARTON MD Elect ronically Signed By: RONALD WHARTON MD on 07/03/192141 Transcribed By: JARRED Isbell on 07/03/192141 COPY TO: NADIA SOW MD MRI BRAIN WO 2019-07-03 16:21:00 [place] [address] Patient Name: AWILDA ESCUDERO MR #: [id number] : 1955 Age/Sex: 64/F Req #: [id number] Adm Physician: CELENA CHRISTENSEN MD Ordered by: Abdirashid Alford PECAN MALLOW DIPPER Report #: [id number] Location: MED/SURG3 Room/Bed: 284-1 Procedure: [id number] MRI /MRI BRAIN WO Exam Date: Exam Time: REPORT STATUS: Signed Examination: Brain MRI w ithout Contrast History: Altered mental status. Confusion. Comparison [facility]: Brain MRI performed January 02, 2019 Technique: [...] 07/03/19 1629 COPY TO: ABDIRASHID ALFORD NP Ymjvxyh2289-41-65 15:56:00* Test Item Value Reference Range Interpretation Comments Ammonia (test code = 10688-1) 41 31-123 [facility]2020-01-10 15:56:00* Test Item Value Reference Range Interpretation Comments Ammonia (test code = 24694-9) 41 31-123 [facility]2020-01-10 15:56:00* Test Item Value Reference Range Interpretation Comments Ammonia (test code = 51439-7) 41 31-123 [facility]2020-01-10 15:56:00* Test Item Value Reference Range Interpretation Comments Ammonia (test code = 42049-1) 41 31-123 [facility]2020-01-10 15:56:00* Test Item Value Reference Range Interpretation Comments Ammonia (test code = 92732-8) 41 31-123 [facility]2020-01-10 14:20:00* Test Item Value Reference Range Interpretation Comments Ammonia (test code = 97288-2) 41 31-123 [facility]2020-01-10 14:20:00* Test Item Value Reference Range Interpretation Comments Ammonia (test code = 27813-5) 41 31-123 [facility]2020-01-10 14:20:00* Test Item Value Reference Range Interpretation Comments Ammonia (test code = 33673-8) 41 31-123 [facility] CenterHe[facility] B Surface Antibody, Quant 2019-07-03 10:33:00* Test Item Value Reference Range Interpretation Comments Hepatitis B Surface Antibody, Quant (test code = 5194-6) <3.1 Status of Immunity Anti-HBs Level Inconsistent with Immunity 0.0 - 9 .9Consistent with Immunity >9.9Performed at: [facility] [address] [id number] Director: Kevin Lino MD, Phone: [phone] [facility] Hospital B Core Total Ojnineop4950-33-02 10:33:00* Test Item Value Reference Range Interpretation Comments Hepatitis B Core Total Antibody (test code = 78655-9) Negative [facility] B Core IgM Grxlssgh5691-72-81 10:33:00* Test Item Value Reference Range Interpretation Comments Hepatitis B Core IgM Antibody (test code = 25340-7) Negative Performed at: [facility] [address] [id number] Director: Kevin Lino MD, Phone: [phone] Methodist Hospital C Pjgujkuw7270-65-57 10:33:00* Test Item Value Reference Range Interpretation Comments Hepatitis C Antibody (test code = 12271-4) <0.1 Reference Range:0.0 - 0.9 s/co ratio Negative: < 0.8 Indeterminate: 0.8 - 0.9 Positive: > 0.9 The CDC recommends that a positive HCV antibody result be followed up with a HCV Nucleic Acid Amplification test (456085).Performed at: [address] [id number] Director: Kevin Lino MD, Phone: [phone] [facility] Qurwvmxv6333-66-46 10:33:00* Test Item Value Reference Range Interpretation Comments Hepatitis C Antibody (test code = 50339-3) <0.1 Reference Range:0.0 - 0.9 s/co ratio Negative: < 0.8 Indeterminate: 0.8 - 0.9 Positive: > 0.9 The CDC recommends that a positive HCV antibody result be followed up with a HCV Nucleic Acid Amplification test (578392).Performed at: [address] [id number] Director: Kevin Lino MD, Phone: [phone] [facility] Ogvugbpp4204-87-56 10:33:00* Test Item Value Reference Range Interpretation Comments Hepatitis C Antibody (test code = 21376-5) <0.1 Reference Range:0.0 - 0.9 s/co ratio Negative: < 0.8 Indeterminate: 0.8 - 0.9 Positive: > 0.9 The CDC recommends that a positive HCV antibody result be followed up with a HCV Nucleic Acid Amplification test (478879).Performed at: [address] [id number] Director: Kevin Lino MD, Phone: [phone] [facility] C Fczphica0288-93-74 10:33:00* Test Item Value Reference Range Interpretation Comments Hepatitis C Antibody (test code = 15016-8) <0.1 Reference Range:0.0 - 0.9 s/co ratio Negative: < 0.8 Indeterminate: 0.8 - 0.9 Positive: > 0.9 The CDC recommends that a positive HCV antibody result be followed up with a HCV Nucleic Acid Amplification test (374081).Performed at: [address] [id number] Director: Kevin Lino MD, Phone: [phone] [facility] CenterHepatitis C Wugpkxdk5072-96-18 10:33:00* Test Item Value Reference Range Interpretation Comments Hepatitis C Antibody (test code = 12394-8) <0.1 Reference Range:0.0 - 0.9 s/co ratio Negative: < 0.8 Indeterminate: 0.8 - 0.9 Positive: > 0.9 The CDC recommends that a positive HCV antibody result be followed up with a HCV Nucleic Acid Amplification test (044126).Performed at: - [facility] [id number] Director: Kevin Lino MD, Phone: [phone] [facility] CenterCT CHEST EM6709-70-21 09:37:00 [place] [address] Patient Name: AWILDA ESCUDERO MR #: [id number] : 1955 Age/Sex: 64/F Req #: [id number] Adm Physician: CELENA CHRISTENSEN MD Ordered by: Abdirashid Alford PEC[employer] MALLOW DIPPER Report #: [id number] Location: [facility] Room/Bed: [facility] Procedure: [id number] CT/ CT CHEST WO Exam Date: Exam [...] on 07/03/19951 COPY TO: ABDIRASHID ALFORD NP Zxacwu5519-41-67 11:48:00* Test Item Value Reference Range Interpretation Comments Folate (test code = 2284-8) <2.0 >3.0 L A serum folate concentration of less than 3.1 ng/mL isconsidered to represent cl inical deficiency.Performed at: [address] [id number] Director: Kevin Lino MD, Phone: [phone] Charlton Medical CenterFolate2020-01-09 11:48:00* Test Item Value Reference Range Interpretation Comments Folate (test code = 2284-8) <2.0 >3.0 L A serum folate concentration of less than 3.1 ng/mL isconsidered to represent cl inical deficiency.Performed at: [address] [id number] Director: Kevin Lino MD, Phone: [phone] Charlton Medical CenterFolate2020-01-09 11:48:00* Test Item Value Reference Range Interpretation Comments Folate (test code = 2284-8) <2.0 >3.0 L A serum folate concentration of less than 3.1 ng/mL isconsidered to represent cl inical deficiency.Performed at: [address] [id number] Director: Kevin Lino MD, Phone: [phone] Charlton Medical CenterFolate2020-01-09 11:48:00* Test Item Value Reference Range Interpretation Comments Folate (test code = 2284-8) <2.0 >3.0 L A serum folate concentration of less than 3.1 ng/mL isconsidered to represent cl inical deficiency.Performed at: [address] [id number] Director: Kevin Lino MD, Phone: [phone] Charlton Medical CenterFolate2020-01-09 11:48:00* Test Item Value Reference Range Interpretation Comments Folate (test code = 2284-8) <2.0 >3.0 L A serum folate concentration of less than 3.1 ng/mL isconsidered to represent cl inical deficiency.Performed at: HD - [facility] [id number] Director: Kevin Lino MD, Phone: [phone] Charlton Medical CenterPhosphorus Vsklh9035-17-61 07:05:00* Test Item Value Reference Range Interpretation Comments Phosphorus Level (test code = QAQ0750) 4.0 2.3-4.7 [facility] antibody lpiwfnyhv9055-50-66 04:15:00* Test Item Value Reference Range Interpretation Comments Hepatitis C Antibody (test code = 57329-8) <0.1 Reference Range:0.0 - 0.9 s/co ratio Negative: < 0.8 Indeterminate: 0.8 - 0.9 Positive: > 0.9 The CDC recommends that a positive HCV antibody result be followed up with a HCV Nucleic Acid Amplification test (961763).Performed at: [address] [id number] Director: Kevin Lino MD, Phone: [phone] [facility] Hospitaler[facility] hepatitis C virus antibody wvnwtouyc8364-74-81 04:15:00* Test Item Value Reference Range Interpretation Comments Hepatitis C Antibody (test code = 25426-8) <0.1 Reference Range:0.0 - 0.9 s/co ratio Negative: < 0.8 Indeterminate: 0.8 - 0.9 Positive: > 0.9 The CDC recommends that a positive HCV antibody result be followed up with a HCV Nucleic Acid Amplification test (607312).Performed at: [address] [id number] Director: Kevin Lino MD, Phone: [phone] [facility] Hospitalerum hepatitis C virus antibody qxfyybnoo3652-98-19 04:15:00* Test Item Value Reference Range Interpretation Comments Hepatitis C Antibody (test code = 74429-1) <0.1 Reference Range:0.0 - 0.9 s/co ratio Negative: < 0.8 Indeterminate: 0.8 - 0.9 Positive: > 0.9 The CDC recommends that a positive HCV antibody result be followed up with a HCV Nucleic Acid Amplification test (880480).Performed at: [address], [place] [id number] Director: Kevin Lino MD, Phone: [phone] [facility] CenterMD SEDATE INITIAL > 5 DGW2722-76-45 12:41:00 [facility] [address] [place] [place], [place] [address] Patient Name: AWILDA ESCUDERO MR #: [id number] : 1955 Age/Sex: 64/F Req #: [id number] Adm Physician: CELENA CHRISTENSEN MD Ordered by: MICHAEL BEACH MD Report #: [id number] Location: ICU Room/Bed: ICU [facility] Procedure: [id number] Dre Arenas/ SEDATE INITIAL > 5 YRS Exam Date: 07/01/19 Exam Time: 1154 REPORT STATUS: Signed Tunneled dialysis catheter insertion, 07/01/2019. History: Renal failure. Modality: Sonography and fluoroscopy. Sedation: Versed 1.0 mg and fentanyl 50 mcg was given intravenously for conscious sedation. Vital signs were monitored throughout the procedure by a nurse, and remained stable. Physician intra-service time was 15 in its. Shot Bagger: Baylee. Childcare Center Administrator: None. Approach: Right internal jugular vein Estimated [...] needle into the right atrium. A 4 Croatian micropuncture sheath was placed. A subcutaneous tunnel was created in the right anterior chest wall by blunt dissection. A 1 cm 14.5 Croatian Palindrome catheter was brought through the tunnel. [...] on 07/08/191422 COPY TO: MICHAEL BEACH MD US GUIDANCE FOR VASCULAR VCMHZ2688-76-55 12:41:[address] [place] [address] Patient Name: AWILDA ESCUDERO MR #: [id number] : 1955 Age/Sex: 64/F Req #: [id number] Adm Physician: CELENA CHRISTENSEN MD Ordered by: CELENA CHRISTENSEN MD Report #: [id number] Location: ICU Room/Bed: ICU 191-1 Procedure: [id number] US/U S GUIDANCE FOR VASCULAR ACCES Exam Date: 07/01/19 Ex am Time: 1136 REPORT STATUS: Signed Tunneled dialysis catheter insertion, 07/01/2019. History: Renal failure. Modality: Sonography and fluoroscopy. Sedation: Versed 1.0 mg and fentanyl 50 mcg was given intravenously for conscious sedation. Vital signs were monitored throughout the procedure by a nurse, and remained stable. Physician intra-service time was 15 in its. Shot Bagger: Baylee. Childcare Center Administrator: None. Approach: Right internal jugular vein Estimated [...] needle into the right atrium. A 4 Croatian micropuncture sheath was placed. A subcutaneous tunnel was created in the right anterior chest wall by blunt dissection. A 1 cm 14.5 Croatian Palindrome catheter was brought through the tunnel. [...] on 07/08/191422 COPY TO: CELENA CHRISTENSEN MD IR CONSULT 2019-07-01 12:41:00 [place] [address] Patient Name: AWILDA ESCUDERO MR #: [id number] : 1955 Age/Sex: 64/F Req #: [id number] Adm Physician: CELENA CHRISTENSEN MD Ordered by: CELENA CHRISTENSEN MD Report #: [id number] Location: ICU Room/Bed: ICU [facility] Procedure: [id number] DX/I R CONSULT Exam Date: Exam Time: REPORT STATUS: Signed Tunneled dialysis catheter i nsertion, 07/01/2019. History: Renal failure. Modality: Sonogr aphy and fluoroscopy. Sedation: Versed 1.0 mg and fentanyl 50 mcg was given intravenously for conscious sedation. Vital signs were monitored throughout the procedure by a nurse, and remained stable. Physician intra-service time was 15 in its. Primary O perator: Baylee. Childcare Center Administrator: None. Approach: Right internal jugular vein Estimated [...] needle into the right atrium. A 4 Croatian micropuncture sheath was placed. A subcutaneous tunnel was created in the right anterior chest wall by blunt dissection. A 1 cm 14.5 Croatian Palindrome catheter was brought through the tunnel. [...] CELENA CHRISTENSEN MD TUNNELLED CVC INSERT W/O TXUO2356-24-58 12:41:00 [place] [address] Patient Name: AWILDA ESCUDERO MR #: [id number] : 1955 Age/Sex: 64/F Req #: [id number] Adm Physician: CELENA CHRISTENSEN MD Ordered by: CELENA CHRISTENSEN MD Report #: [id number] Location: ICU [facility]Bed[facility] [facility] Procedure: [id number] IR/T UNNELLED CVC INSERT W/O PORT Exam Date: Exam Time: REPORT STATUS: Signed Tunneled dialysis catheter insertion, 07/01/2019. History: Renal failure. Modality: Sonography and fluoroscopy. Sedation: Versed 1.0 mg and fentanyl 50 mcg was given intravenously for consci ous sedation. Vital signs were monitored throughout the procedure by a nurse, and remained stable. Physician intra-service time was 15 in its. Shot Bagger: Baylee. Childcare Center Administrator: None. Approach: Right internal jugular vein Estimated [...] needle into the right atrium. A 4 Croatian micropuncture sheath was placed. A subcutaneous tunnel was created in the right anterior chest wall by blunt dissection. A 1 cm 14.5 Croatian Palindrome catheter was brought through the tunnel. [...] 07/08/19 1423 COPY TO: CELENA CHRISTENSEN MD Ferritin 2019-07-01 04:35:00* Test Item Value Reference Range Interpretation Comments Ferritin (test code = 2276-4) 270.21 4.63-204.00 [facility]Vit[facility]12 Edjjw1537-27-25 04:35:00* Test Item Value Reference Range Interpretation Comments Vitamin B12 Level (test code = 06524-5) 548 213-816 [facility] CenterFerritin2020-01-08 04:35:00* Test Item Value Reference Range Interpretation Comments Ferritin (test code = 2276-4) 270.21 4.63-204.00 [facility] CenterVitamin B12 Psgsr8104-18-35 04:35:00* Test Item Value Reference Range Interpretation Comments Vitamin B12 Level (test code = 03071-1) 548 213-816 [facility] CenterFerritin2020-01-08 04:35:00* Test Item Value Reference Range Interpretation Comments Ferritin (test code = 2276-4) 270.21 4.63-204.00 [facility] CenterVitamin B12 Adkke2171-03-65 04:35:00* Test Item Value Reference Range Interpretation Comments Vitamin B12 Level (test code = 48270-6) 548 213-816 [facility] CenterFerritin2020-01-08 04:35:00* Test Item Value Reference Range Interpretation Comments Ferritin (test code = 2276-4) 270.21 4.63-204.00 [facility] CenterVitamin B12 Orxpg1725-85-24 04:35:00* Test Item Value Reference Range Interpretation Comments Vitamin B12 Level (test code = 95415-4) 548 213-816 [facility] CenterFerritin2020-01-08 04:35:00* Test Item Value Reference Range Interpretation Comments Ferritin (test code = 2276-4) 270.21 4.63-204.00 [facility] CenterVitamin B12 Noayh4718-47-74 04:35:00* Test Item Value Reference Range Interpretation Comments Vitamin B12 Level (test code = 27559-8) 548 213-816 [facility] CenterIron Kyxvr9293-78-38 03:57:00* Test Item Value Reference Range Interpretation Comments Iron Level (test code = 2498-4) 31 50-170 L [facility] CenterTotal Iron Binding Vwnybcyv8493-02-71 03:57:00* Test Item Value Reference Range Interpretation Comments Total Iron Binding Capacity (test code = 2500-7) 139 261-4 78 L [facility] CenterPercent Iron Fgywszbsxc6965-62-48 03:57:00* Test Item Value Reference Range Interpretation Comments Percent Iron Saturation (test code = 2502-3) 22 15-50 [facility] CenterTransferrin2020-01-08 03:57:00* Test Item Value Reference Range Interpretation Comments Transferrin (test code = 3034-6) 99 180-382 L [facility]2020-01-08 03:57:00* Test Item Value Reference Range Interpretation Comments Iron Level (test code = 2498-4) 31 50-170 L [facility] Iron Binding Gdufmwwt6555-33-51 03:57:00* Test Item Value Reference Range Interpretation Comments Total Iron Binding Capacity (test code = 2500-7) 139 261-4 78 L [facility] Iron Quinkqbvct7378-79-09 03:57:00* Test Item Value Reference Range Interpretation Comments Percent Iron Saturation (test code = 2502-3) 22 15-50 [facility] CenterTransferrin2020-01-08 03:57:00* Test Item Value Reference Range Interpretation Comments Transferrin (test code = 3034-6) 99 180-382 L [facility]2020-01-08 03:57:00* Test Item Value Reference Range Interpretation Comments Iron Level (test code = 2498-4) 31 50-170 L [facility] Iron Binding Egxbtihl9645-32-75 03:57:00* Test Item Value Reference Range Interpretation Comments Total Iron Binding Capacity (test code = 2500-7) 139 261-4 78 L [facility] Iron Qgavvufzkv2687-24-18 03:57:00* Test Item Value Reference Range Interpretation Comments Percent Iron Saturation (test code = 2502-3) 22 15-50 [facility] CenterTransferrin2020-01-08 03:57:00* Test Item Value Reference Range Interpretation Comments Transferrin (test code = 3034-6) 99 180-382 L [facility]2020-01-08 03:57:00* Test Item Value Reference Range Interpretation Comments Iron Level (test code = 2498-4) 31 50-170 L [facility] CenterTotal Iron Binding Mhjdjsse4092-66-20 03:57:00* Test Item Value Reference Range Interpretation Comments Total Iron Binding Capacity (test code = 2500-7) 139 261-4 78 L [facility] CenterPercent Iron Jyrzlhkofr3912-16-36 03:57:00* Test Item Value Reference Range Interpretation Comments Percent Iron Saturation (test code = 2502-3) 22 15-50 [facility] CenterTransferrin2020-01-08 03:57:00* Test Item Value Reference Range Interpretation Comments Transferrin (test code = 3034-6) 99 180-382 L [facility] CenterIron Aspov6006-41-90 03:57:00* Test Item Value Reference Range Interpretation Comments Iron Level (test code = 2498-4) 31 50-170 L [facility] Iron Binding Oxfyyhtu9470-14-46 03:57:00* Test Item Value Reference Range Interpretation Comments Total Iron Binding Capacity (test code = 2500-7) 139 261-4 78 L [facility] CenterPercent Iron Uluelithsq3557-59-35 03:57:00* Test Item Value Reference Range Interpretation Comments Percent Iron Saturation (test code = 2502-3) 22 15-50 [facility] CenterTransferrin2020-01-08 03:57:00* Test Item Value Reference Range Interpretation Comments Transferrin (test code = 3034-6) 99 180-382 L [facility] CenterPercent Reticulocyte Clxoi0514-14-26 03:29:00* Test Item Value Reference Range Interpretation Comments Percent Reticulocyte Count (test code = 32419-1) 2.3 0.8-2 .2 H [facility] CenterPercent Reticulocyte Xaeqd3403-19-13 03:29:00* Test Item Value Reference Range Interpretation Comments Percent Reticulocyte Count (test code = 40310-7) 2.3 0.8-2 .2 H [facility] Retic[facility]ocyte Hhcug8808-48-04 03:29:00* Test Item Value Reference Range Interpretation Comments Percent Reticulocyte Count (test code = 24885-9) 2.3 0.8-2 .2 H [facility] CenterPercent Reticulocyte Lxfja8695-86-33 03:29:00* Test Item Value Reference Range Interpretation Comments Percent Reticulocyte Count (test code = 03366-9) 2.3 0.8-2 .2 H [facility] CenterPercent Reticulocyte Suddu3346-63-91 03:29:00* Test Item Value Reference Range Interpretation Comments Percent Reticulocyte Count (test code = 22614-1) 2.3 0.8-2 .2 H [facility] CenterAutomated reticulocyte count as percentage of total vyataaguqhcb0922-44-89 02:00:00* Test Item Value Reference Range Interpretation Comments Percent Reticulocyte Count (test code = 02498-6) 2.3 0.8-2 .2 [facility] iron measurement (mass/volume)2019-07-01 02:00:00* Test Item Value Reference Range Interpretation Comments Iron Level (test code = 2498-4) 31 50-170 [facility] Hospitalerum [facility] plasma iron binding capacity measurement (mass/volume)2019-07-01 02:00:00* Test Item Value Reference Range Interpretation Comments Total Iron Binding Capacity (test code = 2500-7) 139 261-4 78 [facility] Hospitalerum [facility] plasma iron saturation measurement (mass fraction)2019-07-01 02:00:00* Test Item Value Reference Range Interpretation Comments Percent Iron Saturation (test code = 2502-3) 22 15-50 [facility] Hospitalerum or plasma transferrin measurement (mass/volume)2019-07-01 02:00:00* Test Item Value Reference Range Interpretation Comments Transferrin (test code = 3034-6) 99 180-382 [facility] Hospitalerum or plasma ferritin measurement (mass/volume)2019-07-01 02:00:00* Test Item Value Reference Range Interpretation Comments Ferritin (test code = 2276-4) 270.21 4.63-204.00 [facility] CenterBlood cobalamin (vitamin B12) measurement (mass/volume)2019-07-01 02:00:00* Test Item Value Reference Range Interpretation Comments Vitamin B12 Level (test code = 11680-6) 548 213811 [facility] Hospitalerum or plasma folate measurement (mass/volume)2019-07-01 02:00:00* Test Item Value Reference Range Interpretation Comments Folate (test code = 2284-8) <2.0 >3.0 A serum folate concentration of less than 3.1 ng/mL isconsidered to represent cl inical deficiency.Performed at: - [facility] [id number] Director: Kevin Lino MD, Phone: [phone] [facility] CenterAutomated reticulocyte count as percentage of total cxfgfktkolwm8883-40-75 02:00:00* Test Item Value Reference Range Interpretation Comments Percent Reticulocyte Count (test code = 80607-5) 2.3 0.8-2 .2 [facility]er[facility] plasma iron measurement (mass/volume)2019-07-01 02:00:00* Test Item Value Reference Range Interpretation Comments Iron Level (test code = 2498-4) 31 50-170 [facility] Hospitalerum or plasma iron binding capacity measurement (mass/volume)2019-07-01 02:00:00* Test Item Value Reference Range Interpretation Comments Total Iron Binding Capacity (test code = 2500-7) 139 261-4 78 [facility] Hospitalerum or plasma iron saturation measurement (mass fraction)2019-07-01 02:00:00* Test Item Value Reference Range Interpretation Comments Percent Iron Saturation (test code = 2502-3) 22 15-50 [facility] Hospitalerum or plasma transferrin measurement (mass/volume)2019-07-01 02:00:00* Test Item Value Reference Range Interpretation Comments Transferrin (test code = 3034-6) 99 180-382 [facility] Hospitalerum or plasma ferritin measurement (mass/volume)2019-07-01 02:00:00* Test Item Value Reference Range Interpretation Comments Ferritin (test code = 2276-4) 270.21 4.63-204.00 [facility] CenterBlood cobalamin (vitamin B12) measurement (mass/volume)2019-07-01 02:00:00* Test Item Value Reference Range Interpretation Comments Vitamin B12 Level (test code = 24528-2) 548 213810 [facility] Hospitalerum or plasma folate measurement (mass/volume)2019-07-01 02:00:00* Test Item Value Reference Range Interpretation Comments Folate (test code = 2284-8) <2.0 >3.0 A serum folate concentration of less than 3.1 ng/mL isconsidered to represent cl inical deficiency.Performed at: - [facility] [id number] Director: Kevin Lino MD, Phone: [phone] Charlton Medical CenterAutomated reticulocyte count as percentage of total uiategjizsng5890-55-26 02:00:00* Test Item Value Reference Range Interpretation Comments Percent Reticulocyte Count (test code = 06420-9) 2.3 0.8-2 .2 [facility] Hospitalerum or plasma iron measurement (mass/volume)2019-07-01 02:00:00* Test Item Value Reference Range Interpretation Comments Iron Level (test code = 2498-4) 31 50-170 [facility] Hospitalerum or plasma iron binding capacity measurement (mass/volume)2019-07-01 02:00:00* Test Item Value Reference Range Interpretation Comments Total Iron Binding Capacity (test code = 2500-7) 139 261-4 78 [facility] Hospitalerum or plasma iron saturation measurement (mass fraction)2019-07-01 02:00:00* Test Item Value Reference Range Interpretation Comments Percent Iron Saturation (test code = 2502-3) 22 15-50 [facility] Hospitalerum or plasma transferrin measurement (mass/volume)2019-07-01 02:00:00* Test Item Value Reference Range Interpretation Comments Transferrin (test code = 3034-6) 99 180-382 [facility] Hospitalerum or plasma ferritin measurement (mass/volume)2019-07-01 02:00:00* Test Item Value Reference Range Interpretation Comments Ferritin (test code = 2276-4) 270.21 4.63-204.00 [facility] CenterBlood cobalamin (vitamin B12) measurement (mass/volume)2019-07-01 02:00:00* Test Item Value Reference Range Interpretation Comments Vitamin B12 Level (test code = 09843-5) 548 213819 [facility] Hospitalerum or plasma folate measurement (mass/volume)2019-07-01 02:00:00* Test Item Value Reference Range Interpretation Comments Folate (test code = 2284-8) <2.0 >3.0 A serum folate concentration of less than 3.1 ng/mL isconsidered to represent cl inical deficiency.Performed at: - [facility] [id number] Director: Keivn Lino MD, Phone: [phone] Charlton Medical CenterTriglycerides Pgjjt7364-01-11 04:53:00* Test Item Value Reference Range Interpretation Comments Triglycerides Level (test code = 2571-8) 160 0-149 H [facility] CenterCholesterol Dlncm4033-76-45 04:53:00* Test Item Value Reference Range Interpretation Comments Cholesterol Level (test code = 2093-3) 212 0-199 H Less than 200 mg/dL Low Fvsm339 - 239 mg/dL Borderline Kgxu568 m g/dl and greater High Risk [facility] CenterLDL Miztwichyfs5895-13-01 04:53:00* Test Item Value Reference Range Interpretation Comments LDL Cholesterol (test code = 2089-1) 150 60-130 H [facility] CenterHDL Quddzvopiya6167-79-31 04:53:00* Test Item Value Reference Range Interpretation Comments HDL Cholesterol (test code = 2085-9) 30 40-60 L [facility] CenterCholesterol/HDL Lztne8714-42-61 04:53:00 * Test Item Value Reference Range Interpretation Comments Cholesterol/HDL Ratio (test code = 9830-1) 7.1 3.0-3.6 H [facility] CenterTriglycerides Kskfc1007-45-45 04:53:00* Test Item Value Reference Range Interpretation Comments Triglycerides Level (test code = 2571-8) 160 0-149 H [facility] CenterCholesterol Ofbwj5037-23-00 04:53:00* Test Item Value Reference Range Interpretation Comments Cholesterol Level (test code = 2093-3) 212 0-199 H Less than 200 mg/dL Low Svvy261 - 239 mg/dL Borderline Rmdv910 m g/dl and greater High Risk [facility] CenterLDL Ssaholakvjs7121-85-58 04:53:00* Test Item Value Reference Range Interpretation Comments LDL Cholesterol (test code = 2089-1) 150 60-130 H [facility] Sklnpfxhtnl2344-62-65 04:53:00* Test Item Value Reference Range Interpretation Comments HDL Cholesterol (test code = 2085-9) 30 40-60 L [facility] CenterCholesterol/HDL Zqiav1600-05-84 04:53:00 * Test Item Value Reference Range Interpretation Comments Cholesterol/HDL Ratio (test code = 9830-1) 7.1 3.0-3.6 H [facility] CenterTriglycerides Zwpip1870-06-36 04:53:00* Test Item Value Reference Range Interpretation Comments Triglycerides Level (test code = 2571-8) 160 0-149 H [facility] CenterCholesterol Gfvga0523-12-72 04:53:00* Test Item Value Reference Range Interpretation Comments Cholesterol Level (test code = 2093-3) 212 0-199 H Less than 200 mg/dL Low Dgig056 - 239 mg/dL Borderline Pcxi794 m g/dl and greater High Risk [facility] CenterLDL Kzvrlvuhrfs7835-70-70 04:53:00* Test Item Value Reference Range Interpretation Comments LDL Cholesterol (test code = 2089-1) 150 60-130 H [facility] Ecxnwouymjg3598-55-55 04:53:00* Test Item Value Reference Range Interpretation Comments HDL Cholesterol (test code = 2085-9) 30 40-60 L [facility] CenterCholesterol/HDL Urscz6372-92-74 04:53:00 * Test Item Value Reference Range Interpretation Comments Cholesterol/HDL Ratio (test code = 9830-1) 7.1 3.0-3.6 H [facility] CenterTriglycerides Dirlj1264-31-92 04:53:00* Test Item Value Reference Range Interpretation Comments Triglycerides Level (test code = 2571-8) 160 0-149 H [facility] CenterCholesterol Lbovd4936-10-02 04:53:00* Test Item Value Reference Range Interpretation Comments Cholesterol Level (test code = 2093-3) 212 0-199 H Less than 200 mg/dL Low Xqjk945 - 239 mg/dL Borderline Ywpe858 m g/dl and greater High Risk [facility] CenterLDL Jmwtekhsbod6550-87-87 04:53:00* Test Item Value Reference Range Interpretation Comments LDL Cholesterol (test code = 2089-1) 150 60-130 H [facility] CenterHDL Tukuavscskn1476-74-75 04:53:00* Test Item Value Reference Range Interpretation Comments HDL Cholesterol (test code = 2085-9) 30 40-60 L [facility] CenterCholesterol/HDL Zliar0739-83-75 04:53:00 * Test Item Value Reference Range Interpretation Comments Cholesterol/HDL Ratio (test code = 9830-1) 7.1 3.0-3.6 H [facility] CenterUS ABDOMEN JFJSYTQC2646-58-49 19:48:00 [facility] [address] [place] [address] Patient Name: AWILDA ESCUDERO MR #: [id number] : 1955 Age/Sex: 64/F Req #: [id number] Adm Physician: Ordered by: Abdirashid Alford [employer] Report #: [id number] Location: ER Room/Bed: Procedure: [id number] US/U S ABDOMEN COMPLETE Exam Date: 06/29/19 [...] ESQUIVEL MD 50 COPY TO: ABDIRASHID ALFORD [employer] CT ABDOMEN VH6711-65-79 19:06:00 [place] [address] Patient Name: AWILDA ESCUDERO MR #: [id number] : 1955 Age/Sex: 64/F Req #: [id number] Adm Physician: Ordered by: Abdirashid Alford NP Report #: [id number] Location: ER Room/Bed: Procedure: [id number] CT/C T ABDOMEN WO Exam Date: 06/29/19 [...] Thyroid Stimulating Hormone (TSH) (test code = 13427-6) 3.979 0.350-4.940 [facility] CenterThyroid Stimulating Hormone (TSH) 2019-06-29 17:37:00* Test Item Value Reference Range Interpretation Comments Thyroid Stimulating Hormone (TSH) (test code = 25233-7) 3.979 0.350-4.940 [facility] CenterThyroid Stimulating Hormone (TSH) 2019-06-29 17:37:00* Test Item Value Reference Range Interpretation Comments Thyroid Stimulating Hormone (TSH) (test code = 96524-7) 3.979 0.350-4.940 [facility] CenterThyroid Stimulating Hormone (TSH) 2019-06-29 17:37:00* Test Item Value Reference Range Interpretation Comments Thyroid Stimulating Hormone (TSH) (test code = 87712-1) 3.979 0.350-4.940 [facility] CenterThyroid Stimulating Hormone (TSH) 2019-06-29 17:37:00* Test Item Value Reference Range Interpretation Comments Thyroid Stimulating Hormone (TSH) (test code = 10882-2) 3.979 0.350-4.940 [facility] CenterLipase2020-01-06 17:16:00* Test Item Value Reference Range Interpretation Comments Lipase (test code = 3040-3) 8-78 [facility] CenterLipase2020-01-06 17:16:00* Test Item Value Reference Range Interpretation Comments Lipase (test code = 3040-3) 56 8-78 [facility] CenterLipase2020-01-06 17:16:00* Test Item Value Reference Range Interpretation Comments Lipase (test code = 3040-3) 56 8-78 [facility] CenterLipase2020-01-06 17:16:00* Test Item Value Reference Range Interpretation Comments Lipase (test code = 3040-3) 56 8-78 [facility] CenterLipase2020-01-06 17:16:00* Test Item Value Reference Range Interpretation Comments Lipase (test code = 3040-3) 56 8-78 [facility] CenterHemoglobin A1c Gwhhtpf5444-60-79 17:14:00 * Test Item Value Reference Range Interpretation Comments Hemoglobin A1c Percent (test code = Hemoglobin A1c Percent) 5.2 4.0-7.0 [facility] CenterHemoglobin A1c Rvvnrav6024-08-12 17:14:00 * Test Item Value Reference Range Interpretation Comments Hemoglobin A1c Percent (test code = Hemoglobin A1c Percent) 5.2 4.0-7.0 [facility] CenterHemoglobin A1c Vwbllvg2807-45-80 17:14:00 * Test Item Value Reference Range Interpretation Comments Hemoglobin A1c Percent (test code = Hemoglobin A1c Percent) 5.2 4.0-7.0 [facility] CenterHemoglobin A1c Vsucdxg1602-43-49 17:14:00 * Test Item Value Reference Range Interpretation Comments Hemoglobin A1c Percent (test code = Hemoglobin A1c Percent) 5.2 4.0-7.0 [facility] CenterHemoglobin A1c Jzjgdvk1737-48-69 17:14:00 * Test Item Value Reference Range Interpretation Comments Hemoglobin A1c Percent (test code = Hemoglobin A1c Percent) 5.2 4.0-7.0 [facility] CenterB-Type Natriuretic Dxhruro9728-05-20 15:38:00* Test Item Value Reference Range Interpretation Comments B-Type Natriuretic Peptide (test code = 35310-7) 180.0 0-100 H [facility] CenterB-Type Natriuretic Jihurea7736-28-18 15:38:00* Test Item Value Reference Range Interpretation Comments B-Type Natriuretic Peptide (test code = 99386-8) 180.0 0-100 H [facility] CenterB-Type Natriuretic Ulvmeyw2164-94-12 15:38:00* Test Item Value Reference Range Interpretation Comments B-Type Natriuretic Peptide (test code = 83143-9) 180.0 0-100 H [facility] CenterB-Type Natriuretic Gktxmas4473-45-71 15:38:00* Test Item Value Reference Range Interpretation Comments B-Type Natriuretic Peptide (test code = 87039-4) 180.0 0-100 H [facility] CenterB-Type Natriuretic Pwooqrj1500-38-25 15:38:00* Test Item Value Reference Range Interpretation Comments B-Type Natriuretic Peptide (test code = 11128-0) 180.0 0-100 H [facility] CenterCreatine Kinase IY9123-26-55 14:56:00* Test Item Value Reference Range Interpretation Comments Creatine Kinase MB (test code = 93281-3) 1.20 0-5.0 [place] 01755020-01-06 14:56:00* Test Item Value Reference Range Interpretation Comments Troponin I (test code = GMD9094) < 0.001 0-0.300 [facility] CenterCreatine Kinase RM5278-14-38 14:56:00* Test Item Value Reference Range Interpretation Comments Creatine Kinase MB (test code = 34454-2) 1.20 0-5.0 [place] 01755020-01-06 14:56:00* Test Item Value Reference Range Interpretation Comments Troponin I (test code = JAK5009) < 0.001 0-0.300 [facility] CenterCreatine Kinase TG9835-72-16 14:56:00* Test Item Value Reference Range Interpretation Comments Creatine Kinase MB (test code = 75691-4) 1.20 0-5.0 [place] 01755020-01-06 14:56:00* Test Item Value Reference Range Interpretation Comments Troponin I (test code = TSF1373) < 0.001 0-0.300 [facility] CenterCreatine Kinase XC1673-15-39 14:56:00* Test Item Value Reference Range Interpretation Comments Creatine Kinase MB (test code = 10932-1) 1.20 0-5.0 [facility] CenterTroponin U4963-63-63 14:56:00* Test Item Value Reference Range Interpretation Comments Troponin I (test code = GHD2410) < 0.001 0-0.300 [facility] CenterCreatine Pnidad4382-15-77 14:53:00* Test Item Value Reference Range Interpretation Comments Creatine Kinase (test code = 2157-6) 99 29-168 [facility] CenterCreatine Rrndcv1812-85-58 14:53:00* Test Item Value Reference Range Interpretation Comments Creatine Kinase (test code = 2157-6) 99 29-168 [facility] CenterCreatine Ceggng4722-57-31 14:53:00* Test Item Value Reference Range Interpretation Comments Creatine Kinase (test code = 2157-6) 99 -168 [facility] CenterCreatine Gcpcjp9633-51-33 14:53:00* Test Item Value Reference Range Interpretation Comments Creatine Kinase (test code = 2157-6) 99 -168 [facility] CenterProthrombin Avau8968-47-75 14:43:00* Test Item Value Reference Range Interpretation Comments Prothrombin Time (test code = 5902-2) 12.9 11.9-14.5 [facility] CenterProthromb Time International Ratio 2019-06-29 14:43:00* Test Item Value Reference Range Interpretation Comments Prothromb Time International Ratio (test code = 6301-6) 0.92 Oral Anticoagulant Therapy INR Values:1. Low Intensity Therapy 1.5 - 2.02 . Moderate Intensity Therapy 2.0 - 3.03. High Intensity Therapy(1) 2.5 - 3. 54. High Intensity Therapy(2) 3.0 - 4.05. Panic Value INR > 5.0 [facility] CenterActivated Partial Thromboplast Time 2019-06-29 14:43:00* Test Item Value Reference Range Interpretation Comments Activated Partial Thromboplast Time (test code = 07634-0) 30.4 23.8-35.5 [facility] [facility] CenterAct[facility] Thromboplast Time 2019-06-29 14:43:00* Test Item Value Reference Range Interpretation Comments Activated Partial Thromboplast Time (test code = 77023-6) 30.4 23.8-35.5 [facility] CenterAct[facility] Thromboplast Time 2019-06-29 14:43:00* Test Item Value Reference Range Interpretation Comments Activated Partial Thromboplast Time (test code = 04643-6) 30.4 23.8-35.5 [facility] CenterAct[facility] Partial Thromboplast Time 2019-06-29 14:43:00* Test Item Value Reference Range Interpretation Comments Activated Partial Thromboplast Time (test code = 80265-8) 30.4 23.8-35.5 [facility] CenterAct[facility] Partial Thromboplast Time 2019-06-29 14:43:00* Test Item Value Reference Range Interpretation Comments Activated Partial Thromboplast Time (test code = 13090-6) 30.4 23.8-35.5 [facility] CenterCHEST SINGLE (PORTABLE)2019-06-29 14:37:00 [place] [address] Patient Name: AWILDA ESCUDERO MR #: [id number] : 1955 Age/Sex: 64/F Req #: [id number] Adm Physician: Ordered by: JANIE HILL DO Report #: [id number] Location: ER Room/Bed: Procedure: [id number] DX /CHEST SINGLE (PORTABLE) Exam Date: 06/29/19 [...] = Hemoglobin A1c Percent) 5.2 4.0-7.0 [facility] CenterBNP Qzr-pGji5482-03-06 13:11:00* Test Item Value Reference Range Interpretation Comments B-Type Natriuretic Peptide (test code = 11499-9) 180.0 0-100 [facility] plasma lipase measurement (enzymatic activity/volume)2019-06-29 13:11:00* Test Item Value Reference Range Interpretation Comments Lipase (test code = 3040-3) 56 8-78 [facility] Hospitalerum or plasma thyrotropin measurement by detection limit <= 0.005 miu/l (units/volume)2019-06-29 13:11:00* Test Item Value Reference Range Interpretation Comments Thyroid Stimulating Hormone (TSH) (test code = 13137-7) 3.979 0.350-4.940 [facility] CenterFluoroscopic procedure less than one hour rqojdegc6725-10-50 13:11:00* Test Item Value Reference Range Interpretation Comments Hemoglobin A1c Percent (test code = Hemoglobin A1c Percent) 5.2 4.0-7.0 [facility] Hospitalerum or plasma lipase measurement (enzymatic activity/volume)2019-06-29 13:11:00* Test Item Value Reference Range Interpretation Comments Lipase (test code = 3040-3) 56 8-78 [facility] Hospitalerum or plasma thyrotropin measurement by detection limit <= 0.005 miu/l (units/volume)2019-06-29 13:11:00* Test Item Value Reference Range Interpretation Comments Thyroid Stimulating Hormone (TSH) (test code = 93721-4) 3.979 0.350-4.940 [facility] CenterFluoroscopic procedure less than one hour netqhckn9449-17-03 13:11:00* Test Item Value Reference Range Interpretation Comments Hemoglobin A1c Percent (test code = Hemoglobin A1c Percent) 5.2 4.0-7.0 [facility] Hospitalerum or plasma lipase measurement (enzymatic activity/volume)2019-06-29 13:11:00* Test Item Value Reference Range Interpretation Comments Lipase (test code = 3040-3) 56 78 [facility] Hospitalerum or plasma thyrotropin measurement by detection limit <= 0.005 miu/l (units/volume)2019-06-29 13:11:00* Test Item Value Reference Range Interpretation Comments Thyroid Stimulating Hormone (TSH) (test code = 85075-5) 3.979 0.350-4.940 [facility] CenterKNEE LEFT THREE IWJJD6563-87-58 14:35:00 [facility] [address] [place] [address] Patient Name: AWILDA ESCUDERO MR #: [id number] : 1955 Age/Sex: 64/F Req #: [id number] Adm Physician: Ordered by: NATALIA GREEN NP Report #: [id number] Location: ER Room/Bed: Procedure: [id number] DX/ KNEE LEFT THREE VIEWS Exam Date: [...] 06/22/19 1436 COPY TO: NATALIA GREEN NP Blood Qqtrimn0238-08-85 11:40:00* Test Item Value Reference Range Interpretation Comments Blood Culture (test code = 00302882) NO GROWTH AFTER 5 DAYS, FINAL REPORT [facility] Plasma Qxsupb5572-91-34 05:20:00* Test Item Value Reference Range Interpretation Comments Rapid Plasma Reagin (test code = 14026-7) Non Reactive Non Reactive Performed at: [address] [id number] Director: Kevin Lino MD, Phone: [phone] Children's Medical Center Plasma Yyyejb9052-34-47 05:20:00* Test Item Value Reference Range Interpretation Comments Rapid Plasma Reagin (test code = 30693-9) Non Reactive Non Reactive Performed at: [address] [id number] Director: Kevin Lino MD, Phone: [phone] Children's Medical Center Plasma Hhxyfb7992-78-65 05:20:00* Test Item Value Reference Range Interpretation Comments Rapid Plasma Reagin (test code = 86944-4) Non Reactive Non Reactive Performed at: [address] [id number] Director: Kevin Lino MD, Phone: [phone] Charlton Medical CenterRapid Plasma Vnmavm4992-41-28 05:20:00* Test Item Value Reference Range Interpretation Comments Rapid Plasma Reagin (test code = 62404-0) Non Reactive Non Reactive Performed at: [address] [id number] Director: Kevin Lino MD, Phone: [phone] Charlton Medical CenterRapid Plasma Tagycn6841-96-58 05:20:00* Test Item Value Reference Range Interpretation Comments Rapid Plasma Reagin (test code = 35244-1) Non Reactive Non Reactive Performed at: [address] [id number] Director: Kevin Lino MD, Phone: [phone] [facility]ton Medical CenterRamemorial health [facility] Plasma Agjncv1941-28-76 05:20:00* Test Item Value Reference Range Interpretation Comments Rapid Plasma Reagin (test code = 61569-4) Non Reactive Non Reactive Performed at: [address] [id number] Director: Kevin Lino MD, Phone: [phone] Charlton Medical CenterCortisol PM Onzifq7804-25-49 21:56:00* Test Item Value Reference Range Interpretation Comments Cortisol PM Sample (test code = 9812-9) 8.2 2.3-11.9 16:46 DRAW TIMEPerformed at: [address], [place] [id number] Director: Kevin Lino MD, Phone: [phone] Charlton Medical CenterCortisol PM Khlbjw7021-79-03 21:56:00* Test Item Value Reference Range Interpretation Comments Cortisol PM Sample (test code = 9812-9) 8.2 2.3-11.9 16:46 DRAW TIMEPerformed at: [address], X [id number] Director: Kevin Lino MD, Phone: [phone] Charlton Medical CenterCortisol PM Ericmx1445-81-51 21:56:00* Test Item Value Reference Range Interpretation Comments Cortisol PM Sample (test code = 9812-9) 8.2 2.3-11.9 16:46 DRAW TIMEPerformed at: - [address], [place] [id number] Director: Kevin Lino MD, Phone: [phone] Charlton Medical CenterCortisol PM Vqujmp4469-33-53 21:56:00* Test Item Value Reference Range Interpretation Comments Cortisol PM Sample (test code = 9812-9) 8.2 2.3-11.9 16:46 DRAW TIMEPerformed at: [facility] [address], [place] [id number] Director: Kevin Lino MD, Phone: [phone] Charlton Medical CenterCortisol PM Gojyja4050-31-59 21:56:00* Test Item Value Reference Range Interpretation Comments Cortisol PM Sample (test code = 9812-9) 8.2 2.3-11.9 16:46 DRAW TIMEPerformed at: - LabCo[address], X [id number] Director: Kevin Lino MD, Phone: [phone] Charlton Medical CenterCortisol PM Xilrlx3646-13-59 21:56:00* Test Item Value Reference Range Interpretation Comments Cortisol PM Sample (test code = 9812-9) 8.2 2.3-11.9 16:46 DRAW TIMEPerformed at: [facility] LabCo[address], X [id number] Director: Kevin Lino MD, Phone: [phone] Regional Medical Center Styvmyx6594-23-80 08:45:00* Test Item Value Reference Range Interpretation Comments Bedside Glucose (test code = 02804-1) 104 70-120 Meter ID: [id number] [facility] Glucose 2019-04-20 08:45:00* Test Item Value Reference Range Interpretation Comments Bedside Glucose (test code = 51617-4) 104 70-120 Meter ID: [id number] [facility] Centerodium Level 2019-04-20 05:32:00* Test Item Value Reference Range Interpretation Comments Sodium Level (test code = 2951-2) 141 136-145 [facility] CenterPotassium Libfg6611-15-18 05:32:00* Test Item Value Reference Range Interpretation Comments Potassium Level (test code = 2823-3) 3.3 3.5-5.1 L [facility] CenterChloride Smpwt9334-62-55 05:32:00* Test Item Value Reference Range Interpretation Comments Chloride Level (test code = 2075-0) 116 98-107 H [facility] CenterCarbon Dioxide Dakes0321-35-53 05:32:00* Test Item Value Reference Range Interpretation Comments Carbon Dioxide Level (test code = 2028-9) 15 22-29 L [facility] CenterAnion Imz2215-82-97 05:32:00* Test Item Value Reference Range Interpretation Comments Anion Gap (test code = 44421-0) 13.3 8-16 [facility] CenterBlood Urea Bswjmqgb1863-33-02 05:32:00* Test Item Value Reference Range Interpretation Comments Blood Urea Nitrogen (test code = 3094-0) 47 7-26 H [facility] CenterCreatinine2019-10-28 05:32:00* Test Item Value Reference Range Interpretation Comments Creatinine (test code = 2160-0) 3.62 0.57-1.11 H [facility] CenterBUN/Creatinine Epufv9587-25-27 05:32:00* Test Item Value Reference Range Interpretation Comments BUN/Creatinine Ratio (test code = 3097-3) 13 6-25 [facility] CenterEstimat Glomerular Filtration Rate 2019-04-20 05:32:00* Test Item Value Reference Range Interpretation Comments Estimat Glomerular Filtration Rate (test code = 883368468) 13 >60 L Ranges were taken from the National Kidney Disease Education Program and the [facility] Kidney Foundation literature.Reference ranges:60 or greater: Scufzt29-85 ( for 3 consecutive months): Chronic kidney disease 15 or less: Kidney failureMethodist Charlton Medical CenterGlucose Endbi9489-93-31 05:32:00* Test Item Value Reference Range Interpretation Comments Glucose Level (test code = VGS8106) 86 74-118 [facility] CenterCalcium Jemdv9592-37-26 05:32:00* Test Item Value Reference Range Interpretation Comments Calcium Level (test code = 80451-4) 8.6 8.4-10.2 [facility] Hospitalodium Iufgi5460-68-87 05:32:00* Test Item Value Reference Range Interpretation Comments Sodium Level (test code = 2951-2) 141 136-145 [facility] CenterPotassium Bfotm3671-61-37 05:32:00* Test Item Value Reference Range Interpretation Comments Potassium Level (test code = 2823-3) 3.3 3.5-5.1 L [facility] CenterChloride Wbxyj2855-44-34 05:32:00* Test Item Value Reference Range Interpretation Comments Chloride Level (test code = 2075-0) 116 98-107 H [facility] CenterCarbon Dioxide Rmffm1461-24-92 05:32:00* Test Item Value Reference Range Interpretation Comments Carbon Dioxide Level (test code = 2028-9) 15 22-29 L [facility] CenterAnion Soo9187-74-11 05:32:00* Test Item Value Reference Range Interpretation Comments Anion Gap (test code = 64861-3) 13.3 8-16 [facility] CenterBlood Urea Sbdmbtqk1476-17-39 05:32:00* Test Item Value Reference Range Interpretation Comments Blood Urea Nitrogen (test code = 3094-0) 47 7-26 H [facility] CenterCreatinine2019-10-28 05:32:00* Test Item Value Reference Range Interpretation Comments Creatinine (test code = 2160-0) 3.62 0.57-1.11 H [facility] CenterBUN/Creatinine Rawco4035-88-11 05:32:00* Test Item Value Reference Range Interpretation Comments BUN/Creatinine Ratio (test code = 3097-3) 13 6-25 [facility] CenterEstimat Glomerular Filtration Rate 2019-04-20 05:32:00* Test Item Value Reference Range Interpretation Comments Estimat Glomerular Filtration Rate (test code = 162703683) 13 >60 L Ranges were taken from the National Kidney Disease Education Program and the [facility] Kidney Foundation literature.Reference ranges:60 or greater: Tlizjw11-92 ( for 3 consecutive months): Chronic kidney disease 15 or less: Kidney failureMethodist Charlton Medical CenterGlucose Mplul1471-94-71 05:32:00* Test Item Value Reference Range Interpretation Comments Glucose Level (test code = WVK0283) 86 74-118 [facility] CenterCalcium Axqee9893-15-12 05:32:00* Test Item Value Reference Range Interpretation Comments Calcium Level (test code = 90742-2) 8.6 8.4-10.2 [facility] CenterWhite Blood Wvzyg6613-74-41 05:19:00* Test Item Value Reference Range Interpretation Comments White Blood Count (test code = 6690-2) 12.49 4.8-10.8 H [facility] CenterRed Blood Uxkcn5020-38-58 05:19:00* Test Item Value Reference Range Interpretation Comments Red Blood Count (test code = 789-8) 3.91 3.6-5.1 [facility] CenterHemoglobin2019-10-28 05:19:00* Test Item Value Reference Range Interpretation Comments Hemoglobin (test code = 46618-8) 10.5 12.0-16.0 L [facility] CenterHematocrit2019-10-28 05:19:00* Test Item Value Reference Range Interpretation Comments Hematocrit (test code = 4544-3) 32.3 34.2-44.1 L [facility] CenterMean Corpuscular Bwfava9565-29-17 05:19:00* Test Item Value Reference Range Interpretation Comments Mean Corpuscular Volume (test code = 787-2) 82.6 81-99 [facility] CenterMean Corpuscular Satkbthlgo9810-15-03 05:19:00* Test Item Value Reference Range Interpretation Comments Mean Corpuscular Hemoglobin (test code = 785-6) 26.9 28-32 L [facility] CenterMean Corpuscular Hemoglobin Concent 2019-04-20 05:19:00* Test Item Value Reference Range Interpretation Comments Mean Corpuscular Hemoglobin Concent (test code = 786-4) 32.5 31-35 [facility] CenterRed Cell Distribution Cfxgl6502-91-77 05:19:00* Test Item Value Reference Range Interpretation Comments Red Cell Distribution Width (test code = 81120-1) 14.1 11.7 -14.4 [facility] CenterPlatelet Ebjly2039-30-46 05:19:00* Test Item Value Reference Range Interpretation Comments Platelet Count (test code = 777-3) 414 140-360 H [facility] CenterNeutrophils (%) (Auto)2019-04-20 05:19:00 * Test Item Value Reference Range Interpretation Comments Neutrophils (%) (Auto) (test code = 49411-8) 63.8 38.7-80.0 [facility] CenterLymphocytes (%) (Auto)2019-04-20 05:19:00 * Test Item Value Reference Range Interpretation Comments Lymphocytes (%) (Auto) (test code = 736-9) 25.5 18.0-39.1 [facility] CenterMonocytes (%) (Auto)2019-04-20 05:19:00* Test Item Value Reference Range Interpretation Comments Monocytes (%) (Auto) (test code = 5905-5) 5.4 4.4-11.3 [facility] CenterEosinophils (%) (Auto)2019-04-20 05:19:00 * Test Item Value Reference Range Interpretation Comments Eosinophils (%) (Auto) (test code = 713-8) 3.8 0.0-6.0 [facility] CenterBasophils (%) (Auto)2019-04-20 05:19:00* Test Item Value Reference Range Interpretation Comments Basophils (%) (Auto) (test code = 706-2) 0.9 0.0-1.0 [facility] CenterIM GRANULOCYTES %2019-04-20 05:19:00* Test Item Value Reference Range Interpretation Comments IM GRANULOCYTES % (test code = IM GRANULOCYTES %) 0.6 0.0- 1.0 [facility] CenterNeutrophils # (Auto)2019-04-20 05:19:00* Test Item Value Reference Range Interpretation Comments Neutrophils # (Auto) (test code = 751-8) 8.0 2.1-6.9 H [facility] CenterLymphocytes # (Auto)2019-04-20 05:19:00* Test Item Value Reference Range Interpretation Comments Lymphocytes # (Auto) (test code = 38311-4) 3.2 1.0-3.2 [facility] CenterMonocytes # (Auto)2019-04-20 05:19:00* Test Item Value Reference Range Interpretation Comments Monocytes # (Auto) (test code = 742-7) 0.7 0.2-0.8 [facility] CenterEosinophils # (Auto)2019-04-20 05:19:00* Test Item Value Reference Range Interpretation Comments Eosinophils # (Auto) (test code = 711-2) 0.5 0.0-0.4 H [facility] CenterBasophils # (Auto)2019-04-20 05:19:00* Test Item Value Reference Range Interpretation Comments Basophils # (Auto) (test code = 704-7) 0.1 0.0-0.1 [facility] CenterAbsolute Immature Granulocyte (auto 2019-04-20 05:19:00* Test Item Value Reference Range Interpretation Comments Absolute Immature Granulocyte (auto (jake t code = Absolute Immature Granulocyte (auto) 0.08 0-0.1 [facility] CenterWhite Blood Ashgy6092-82-77 05:19:00* Test Item Value Reference Range Interpretation Comments White Blood Count (test code = 6690-2) 12.49 4.8-10.8 H [facility] CenterRed Blood Nqgzb6568-34-59 05:19:00* Test Item Value Reference Range Interpretation Comments Red Blood Count (test code = 789-8) 3.91 3.6-5.1 [facility] CenterHemoglobin2019-10-28 05:19:00* Test Item Value Reference Range Interpretation Comments Hemoglobin (test code = 14556-6) 10.5 12.0-16.0 L [facility] CenterHematocrit2019-10-28 05:19:00* Test Item Value Reference Range Interpretation Comments Hematocrit (test code = 4544-3) 32.3 34.2-44.1 L [facility] CenterMean Corpuscular Tbknla4100-36-91 05:19:00* Test Item Value Reference Range Interpretation Comments Mean Corpuscular Volume (test code = 787-2) 82.6 81-99 [facility] CenterMean Corpuscular Armlrnsefm6003-75-34 05:19:00* Test Item Value Reference Range Interpretation Comments Mean Corpuscular Hemoglobin (test code = 785-6) 26.9 28-32 L [facility] CenterMean Corpuscular Hemoglobin Concent 2019-04-20 05:19:00* Test Item Value Reference Range Interpretation Comments Mean Corpuscular Hemoglobin Concent (test code = 786-4) 32.5 31-35 [facility] CenterRed Cell Distribution Rupki2778-92-28 05:19:00* Test Item Value Reference Range Interpretation Comments Red Cell Distribution Width (test code = 67305-9) 14.1 11.7 -14.4 [facility] CenterPlatelet Bgnao7396-23-24 05:19:00* Test Item Value Reference Range Interpretation Comments Platelet Count (test code = 777-3) 414 140-360 H [facility] CenterNeutrophils (%) (Auto)2019-04-20 05:19:00 * Test Item Value Reference Range Interpretation Comments Neutrophils (%) (Auto) (test code = 10356-0) 63.8 38.7-80.0 [facility] CenterLymphocytes (%) (Auto)2019-04-20 05:19:00 * Test Item Value Reference Range Interpretation Comments Lymphocytes (%) (Auto) (test code = 736-9) 25.5 18.0-39.1 [facility] CenterMonocytes (%) (Auto)2019-04-20 05:19:00* Test Item Value Reference Range Interpretation Comments Monocytes (%) (Auto) (test code = 5905-5) 5.4 4.4-11.3 [facility] CenterEosinophils (%) (Auto)2019-04-20 05:19:00 * Test Item Value Reference Range Interpretation Comments Eosinophils (%) (Auto) (test code = 713-8) 3.8 0.0-6.0 [facility] CenterBasophils (%) (Auto)2019-04-20 05:19:00* Test Item Value Reference Range Interpretation Comments Basophils (%) (Auto) (test code = 706-2) 0.9 0.0-1.0 [facility] CenterIM GRANULOCYTES %2019-04-20 05:19:00* Test Item Value Reference Range Interpretation Comments IM GRANULOCYTES % (test code = IM GRANULOCYTES %) 0.6 0.0- 1.0 [facility] CenterNeutrophils # (Auto)2019-04-20 05:19:00* Test Item Value Reference Range Interpretation Comments Neutrophils # (Auto) (test code = 751-8) 8.0 2.1-6.9 H [facility] CenterLymphocytes # (Auto)2019-04-20 05:19:00* Test Item Value Reference Range Interpretation Comments Lymphocytes # (Auto) (test code = 29169-9) 3.2 1.0-3.2 [facility] CenterMonocytes # (Auto)2019-04-20 05:19:00* Test Item Value Reference Range Interpretation Comments Monocytes # (Auto) (test code = 742-7) 0.7 0.2-0.8 [facility] CenterEosinophils # (Auto)2019-04-20 05:19:00* Test Item Value Reference Range Interpretation Comments Eosinophils # (Auto) (test code = 711-2) 0.5 0.0-0.4 H [facility] CenterBasophils # (Auto)2019-04-20 05:19:00* Test Item Value Reference Range Interpretation Comments Basophils # (Auto) (test code = 704-7) 0.1 0.0-0.1 [facility] CenterAbsolute Immature Granulocyte (auto 2019-04-20 05:19:00* Test Item Value Reference Range Interpretation Comments Absolute Immature Granulocyte (auto (jake t code = Absolute Immature Granulocyte (auto) 0.08 0-0.1 [facility] CenterThyroid Stimulating Hormone (TSH) 2019-04-19 15:20:00* Test Item Value Reference Range Interpretation Comments Thyroid Stimulating Hormone (TSH) (test code = UTT8911) 6.260 0.450-4.500 H Performed at: [facility] [facility] [id number] Director: Kevin Lino MD, Phone: [phone] Charlton Medical CenterThyroid Stimulating Hormone (TSH)2019-04-19 15:20:00* Test Item Value Reference Range Interpretation Comments Thyroid Stimulating Hormone (TSH) (test code = JDT0770) 6.260 0.450-4.500 H Performed at: [facility] [id number] Director: Kevin Lino MD, Phone: [phone] Charlton Medical CenterThyroid Stimulating Hormone (TSH)2019-04-19 15:20:00* Test Item Value Reference Range Interpretation Comments Thyroid Stimulating Hormone (TSH) (test code = NBV8159) 6.260 0.450-4.500 H Performed at: [facility] [id number] Director: Kevin Lino MD, Phone: [phone] Charlton Medical CenterThyroid Stimulating Hormone (TSH)2019-04-19 15:20:00* Test Item Value Reference Range Interpretation Comments Thyroid Stimulating Hormone (TSH) (test code = ZNS0021) 6.260 0.450-4.500 H Performed at: [facility] [id number] Director: Kevin Lino MD, Phone: [phone] Charlton Medical CenterThyroid Stimulating Hormone (TSH)2019-04-19 15:20:00* Test Item Value Reference Range Interpretation Comments Thyroid Stimulating Hormone (TSH) (test code = CNI5583) 6.260 0.450-4.500 H Performed at: [address] [id number] Director: Kevin Lino MD, Phone: [phone] Charlton Medical CenterThyroid Stimulating Hormone (TSH)2019-04-19 15:20:00* Test Item Value Reference Range Interpretation Comments Thyroid Stimulating Hormone (TSH) (test code = JCC5192) 6.260 0.450-4.500 H Performed at: [facility] [id number] Director: Kevin Lino MD, Phone: [phone] Charlton Medical CenterThyroid Stimulating Hormone (TSH)2019-04-19 15:20:00* Test Item Value Reference Range Interpretation Comments Thyroid Stimulating Hormone (TSH) (test code = QMD7181) 6.260 0.450-4.500 H Performed at: [address] [id number] Director: Kevin Lino MD, Phone: [phone] Charlton Medical CenterBlood Bghpxhe9066-79-08 11:39:00* Test Item Value Reference Range Interpretation Comments Blood Culture (test code = 37039456) NO GROWTH AFTER 24 HOURS [facility] CenterCreatine Kinase AC0156-36-87 20:15:00* Test Item Value Reference Range Interpretation Comments Creatine Kinase MB (test code = 52945-4) 5.80 0-5.0 H [facility] CenterTroponin I5150-15-54 20:15:00* Test Item Value Reference Range Interpretation Comments Troponin I (test code = DJO7816) 0.082 0-0.300 [facility] CenterCreatine Kinase AM8746-31-93 20:15:00* Test Item Value Reference Range Interpretation Comments Creatine Kinase MB (test code = 49358-8) 5.80 0-5.0 H [facility] CenterTrcarlotta Z1693-00-26 20:15:00* Test Item Value Reference Range Interpretation Comments Troponin I (test code = HRS1967) 0.082 0-0.300 [facility] CenterCreatine Sbhivv5241-38-15 19:52:00* Test Item Value Reference Range Interpretation Comments Creatine Kinase (test code = 2157-6) 339 29-168 H [facility] CenterCreatine Pdyudy3669-08-27 19:52:00* Test Item Value Reference Range Interpretation Comments Creatine Kinase (test code = 2157-6) 339 29-168 H [facility] Hospitalerum or plasma cortisol measurement PM trough specimen (mass/volume)2019-04-18 16:46:00* Test Item Value Reference Range Interpretation Comments Cortisol PM Sample (test code = 9812-9) 8.2 2.3-11.9 16:46 DRAW TIMEPerformed at: [facility], [place] [id number] Director: Kevin Lino MD, Phone: [phone] Memorial Hospitalerum or plasma cortisol measurement PM trough specimen (mass/volume)2019-04-18 16:46:00* Test Item Value Reference Range Interpretation Comments Cortisol PM Sample (test code = 9812-9) 8.2 2.3-11.9 16:46 DRAW TIMEPerformed at: [email or web address] [address], [place] [id number] Director: Kevin Lino MD, Phone: [phone] Charlton Medical CenterIron Ustgy5127-20-98 12:26:00* Test Item Value Reference Range Interpretation Comments Iron Level (test code = 2498-4) 49 50-170 L [facility] CenterTotal Iron Binding Fssrprpm9759-07-16 12:26:00* Test Item Value Reference Range Interpretation Comments Total Iron Binding Capacity (test code = 2500-7) 185 261-4 78 L [facility] CenterPercent Iron Jabdjdewme5438-30-25 12:26:00* Test Item Value Reference Range Interpretation Comments Percent Iron Saturation (test code = 2502-3) 26 15-50 [facility] CenterTransferrin2019-10-26 12:26:00* Test Item Value Reference Range Interpretation Comments Transferrin (test code = 3034-6) 132 180-382 L [facility] CenterTriglycerides Plwgi7465-63-54 12:26:00* Test Item Value Reference Range Interpretation Comments Triglycerides Level (test code = 2571-8) 171 0-149 H [facility] CenterCholesterol Nnsey3603-64-59 12:26:00* Test Item Value Reference Range Interpretation Comments Cholesterol Level (test code = 2093-3) 154 0-199 Less than 200 mg/dL Low Aaxl707 - 239 mg/dL Borderline Liwd023 m g/dl and greater High Risk [facility] CenterLDL Vaigpehwzad1999-71-07 12:26:00* Test Item Value Reference Range Interpretation Comments LDL Cholesterol (test code = 2089-1) 87 60-130 [facility] CenterHDL Ttfwnshakie4405-29-04 12:26:00* Test Item Value Reference Range Interpretation Comments HDL Cholesterol (test code = 2085-9) 33 40-60 L [facility] CenterCholesterol/HDL Pntrc7612-81-13 12:26:00 * Test Item Value Reference Range Interpretation Comments Cholesterol/HDL Ratio (test code = 9830-1) 4.7 3.0-3.6 H [facility] CenterAmylase Voryn6339-35-51 12:26:00* Test Item Value Reference Range Interpretation Comments Amylase Level (test code = 1798-8) 85 25-125 [facility] CenterIron Jvqya7136-81-12 12:26:00* Test Item Value Reference Range Interpretation Comments Iron Level (test code = 2498-4) 49 50-170 L [facility] CenterTotal Iron Binding Qsswuwuq3651-49-77 12:26:00* Test Item Value Reference Range Interpretation Comments Total Iron Binding Capacity (test code = 2500-7) 185 261-4 78 L [facility] CenterPercent Iron Zvdgnomqlq8711-14-44 12:26:00* Test Item Value Reference Range Interpretation Comments Percent Iron Saturation (test code = 2502-3) 26 15-50 [facility] CenterTransferrin2019-10-26 12:26:00* Test Item Value Reference Range Interpretation Comments Transferrin (test code = 3034-6) 132 180-382 L [facility] CenterTriglycerides Fkdos3444-83-68 12:26:00* Test Item Value Reference Range Interpretation Comments Triglycerides Level (test code = 2571-8) 171 0-149 H [facility] CenterCholesterol Tasdo8349-26-91 12:26:00* Test Item Value Reference Range Interpretation Comments Cholesterol Level (test code = 2093-3) 154 0-199 Less than 200 mg/dL Low Kakh104 - 239 mg/dL Borderline Sthj161 m g/dl and greater High Risk [facility] CenterLDL Wxxgsilnzdv6759-15-08 12:26:00* Test Item Value Reference Range Interpretation Comments LDL Cholesterol (test code = 2089-1) 87 60-130 [facility] CenterHDL Wwxvfauzkgx3905-86-48 12:26:00* Test Item Value Reference Range Interpretation Comments HDL Cholesterol (test code = 2085-9) 33 40-60 L [facility] CenterCholesterol/HDL Twndu1027-10-75 12:26:00 * Test Item Value Reference Range Interpretation Comments Cholesterol/HDL Ratio (test code = 9830-1) 4.7 3.0-3.6 H [facility] CenterAmylase Jxuiw0436-12-19 12:26:00* Test Item Value Reference Range Interpretation Comments Amylase Level (test code = 1798-8) 85 25-125 [facility] CenterAmylase Voxlz8868-66-47 12:26:00* Test Item Value Reference Range Interpretation Comments Amylase Level (test code = 1798-8) 85 25-125 [facility] CenterAmylase Vtnwf5904-45-07 12:26:00* Test Item Value Reference Range Interpretation Comments Amylase Level (test code = 1798-8) 85 25-125 [facility] CenterAmylase Dwhxz6552-81-64 12:26:00* Test Item Value Reference Range Interpretation Comments Amylase Level (test code = 1798-8) 85 25-125 [facility] CenterAmylase Djxlx1084-49-31 12:26:00* Test Item Value Reference Range Interpretation Comments Amylase Level (test code = 1798-8) 85 25-125 [facility] CenterAmylase Oecgh7476-57-90 12:26:00* Test Item Value Reference Range Interpretation Comments Amylase Level (test code = 1798-8) 85 25-125 [facility] CenterHemoglobin A1c Nchcchb4381-33-38 12:00:00 * Test Item Value Reference Range Interpretation Comments Hemoglobin A1c Percent (test code = Hemoglobin A1c Percent) 4.9 4.0-7.0 [facility] CenterHemoglobin A1c Ggmonlv0297-78-55 12:00:00 * Test Item Value Reference Range Interpretation Comments Hemoglobin A1c Percent (test code = Hemoglobin A1c Percent) 4.9 4.0-7.0 [facility]2019-10-26 11:57:00* Test Item Value Reference Range Interpretation Comments Ammonia (test code = 80507-3) 45 31-123 [facility]2019-10-26 11:57:00* Test Item Value Reference Range Interpretation Comments Ammonia (test code = 03267-9) 45 31-123 [facility] plasma amylase measurement (enzymatic activity/volume)2019-04-18 11:15:00* Test Item Value Reference Range Interpretation Comments Amylase Level (test code = 1798-8) 85 25-125 [facility] CenterQualitative serum rapid plasma reagin (RPR) alwc9746-58-78 11:15:00* Test Item Value Reference Range Interpretation Comments Rapid Plasma Reagin (test code = 88910-8) Non Reactive Non Reactive Performed at: [facility] [id number] Director: Kevin Lino MD, Phone: [phone] Memorial Hospitalerum or plasma thyrotropin measurement (mass/volume)2019-04-18 11:15:00* Test Item Value Reference Range Interpretation Comments Thyroid Stimulating Hormone (TSH) (test code = ZFN8512) 6.260 0.450-4.500 Performed at: [address] [id number] Director: Kevin Lino MD, Phone: [phone] Memorial Hospitalerum or plasma amylase measurement (enzymatic activity/volume)2019-04-18 11:15:00* Test Item Value Reference Range Interpretation Comments Amylase Level (test code = 1798-8) 85 25-125 [facility] CenterQualitative serum rapid plasma reagin (RPR) jwrb8122-86-57 11:15:00* Test Item Value Reference Range Interpretation Comments Rapid Plasma Reagin (test code = 26371-4) Non Reactive Non Reactive Performed at: [address] [id number] Director: Kevin Lino MD, Phone: [phone] Memorial Hospitalerum or plasma thyrotropin measurement (mass/volume)2019-04-18 11:15:00* Test Item Value Reference Range Interpretation Comments Thyroid Stimulating Hormone (TSH) (test code = SFX6681) 6.260 0.450-4.500 Performed at: [facility] [id number] Director: Kevin Lino MD, Phone: [phone] Charlton Medical CenterTotal Exzdgffca6823-60-04 05:42:00* Test Item Value Reference Range Interpretation Comments Total Bilirubin (test code = 1975-2) 0.2 0.2-1.2 [facility] CenterAspartate Amino Transf (AST/SGOT) 2019-04-18 05:42:00* Test Item Value Reference Range Interpretation Comments Aspartate Amino Transf (AST/SGOT) (test code = Aspartate Amino Transf (AST/SGOT)) 25 5-34 [facility] CenterAlanine Aminotransferase (ALT/SGPT) 2019-04-18 05:42:00* Test Item Value Reference Range Interpretation Comments Alanine Aminotransferase (ALT/SGPT) (test code = 1742-6) 19 0-55 [facility] CenterTotal Rebrjgg3882-39-04 05:42:00* Test Item Value Reference Range Interpretation Comments Total Protein (test code = 2885-2) 5.7 6.5-8.1 L [facility] CenterAlbumin2019-10-26 05:42:00* Test Item Value Reference Range Interpretation Comments Albumin (test code = 1751-7) 2.2 3.5-5.0 L [facility] CenterGlobulin2019-10-26 05:42:00* Test Item Value Reference Range Interpretation Comments Globulin (test code = 59341-8) 3.5 2.3-3.5 [facility] CenterAlbumin/Globulin Sfoyd5129-22-59 05:42:00 * Test Item Value Reference Range Interpretation Comments Albumin/Globulin Ratio (test code = 1759-0) 0.6 0.8-2.0 L [facility] CenterAlkaline Vybydxzndlq5920-29-67 05:42:00* Test Item Value Reference Range Interpretation Comments Alkaline Phosphatase (test code = 6768-6) 86 40-150 [facility] CenterTotal Xsnowexjr3731-45-36 05:42:00* Test Item Value Reference Range Interpretation Comments Total Bilirubin (test code = 1975-2) 0.2 0.2-1.2 [facility] CenterAspartate Amino Transf (AST/SGOT) 2019-04-18 05:42:00* Test Item Value Reference Range Interpretation Comments Aspartate Amino Transf (AST/SGOT) (test code = Aspartate Amino Transf (AST/SGOT)) 25 5-34 [facility] CenterAlanine Aminotransferase (ALT/SGPT) 2019-04-18 05:42:00* Test Item Value Reference Range Interpretation Comments Alanine Aminotransferase (ALT/SGPT) (test code = 1742-6) 19 0-55 [facility] CenterTotal Wqkjfin5584-86-14 05:42:00* Test Item Value Reference Range Interpretation Comments Total Protein (test code = 2885-2) 5.7 6.5-8.1 L [facility] CenterAlbumin2019-10-26 05:42:00* Test Item Value Reference Range Interpretation Comments Albumin (test code = 1751-7) 2.2 3.5-5.0 L [facility] CenterGlobulin2019-10-26 05:42:00* Test Item Value Reference Range Interpretation Comments Globulin (test code = 10241-6) 3.5 2.3-3.5 [facility] CenterAlbumin/Globulin Pyfso6003-65-62 05:42:00 * Test Item Value Reference Range Interpretation Comments Albumin/Globulin Ratio (test code = 1759-0) 0.6 0.8-2.0 L [facility] CenterAlkaline Okcxweaissr7924-21-93 05:42:00* Test Item Value Reference Range Interpretation Comments Alkaline Phosphatase (test code = 6768-6) 86 40-150 [facility] CenterCHEST 2 UTLOU7098-87-23 18:43:00 [facility] [address] [address] Patient Name: AWILDA ESCUDERO MR #: [id number] : 1955 Age/Sex: 64/F Req #: [id number] Adm Physician: Ordered by: NATALIA GREEN NP Report #: [id number] Location: ER Room/Bed: Procedure: [id number] DX/CH EST 2 VIEWS Exam Date: 04/17/19 [...] SCAR on 04/17/191843 COPY TO: NATALIA GREEN [employer] Urine ADF0600-67-05 17:57:00* Test Item Value Reference Range Interpretation Comments Urine WBC (test code = 5821-4) NONE 0-5 [facility] CenterUrine VEB1050-09-77 17:57:00* Test Item Value Reference Range Interpretation Comments Urine RBC (test code = 46585-2) 11-20 0-5 H [facility] CenterUrine Neplkugd8506-30-58 17:57:00* Test Item Value Reference Range Interpretation Comments Urine Bacteria (test code = 53246-3) MODERATE NONE H [facility] CenterUrine Epithelial Mreca5276-66-20 17:57:00 * Test Item Value Reference Range Interpretation Comments Urine Epithelial Cells (test code = 53924-5) MANY NONE [facility] CenterUrine XBD7658-67-82 17:57:00* Test Item Value Reference Range Interpretation Comments Urine WBC (test code = 5821-4) NONE 0-5 [facility] CenterUrine DDO6692-30-73 17:57:00* Test Item Value Reference Range Interpretation Comments Urine RBC (test code = 71376-2) 11-20 0-5 H [facility] CenterUrine Wnvqlsmq9198-71-57 17:57:00* Test Item Value Reference Range Interpretation Comments Urine Bacteria (test code = 11711-0) MODERATE NONE H [facility] CenterUrine Epithelial Aehtg4523-00-09 17:57:00 * Test Item Value Reference Range Interpretation Comments Urine Epithelial Cells (test code = 56572-0) MANY NONE [facility] CenterUrine Kxpbi5784-66-39 17:43:00* Test Item Value Reference Range Interpretation Comments Urine Color (test code = 5778-6) YELLOW YELLOW [facility] CenterUrine Ccdexri5071-25-30 17:43:00* Test Item Value Reference Range Interpretation Comments Urine Clarity (test code = 40005-5) CLOUDY CLEAR H [facility] CenterUrine Specific Qkrtrlz6138-38-46 17:43:00 * Test Item Value Reference Range Interpretation Comments Urine Specific [place] (test code = 5811-5) 1.025 1.010-1.02 5 [facility] CenterUrine oE0522-18-48 17:43:00* Test Item Value Reference Range Interpretation Comments Urine pH (test code = 90703-6) 6 5-7 [facility] CenterUrine Leukocyte Bpmxfjza7628-24-97 17:43:00* Test Item Value Reference Range Interpretation Comments Urine Leukocyte Esterase (test code = 79264-7) NEGATIVE NEGATIV E [facility] Mwylegt0682-54-52 17:43:00* Test Item Value Reference Range Interpretation Comments Urine Nitrite (test code = 76637-9) NEGATIVE NEGATIVE [facility] Nqcracf6538-43-19 17:43:00* Test Item Value Reference Range Interpretation Comments Urine Protein (test code = 34242-9) 2+ NEGATIVE H [facility] Glucose (UA)2019-04-17 17:43:00* Test Item Value Reference Range Interpretation Comments Urine Glucose (UA) (test code = 48021-3) 1+ NEGATIVE H [facility] CenterUrine Xtrlvco0185-27-91 17:43:00* Test Item Value Reference Range Interpretation Comments Urine Ketones (test code = 83903-4) NEGATIVE NEGATIVE [facility] Ficyceybcbjz7600-92-81 17:43:00* Test Item Value Reference Range Interpretation Comments Urine Urobilinogen (test code = 88385-2) 0.2 0.2-1 [facility] Cibksnbso7587-59-77 17:43:00* Test Item Value Reference Range Interpretation Comments Urine Bilirubin (test code = 1977-8) NEGATIVE NEGATIVE [facility] Dnhby5236-86-91 17:43:00* Test Item Value Reference Range Interpretation Comments Urine Blood (test code = 53053-0) MODERATE NEGATIVE [facility] CenterUrine Ffrjz3782-58-54 17:43:00* Test Item Value Reference Range Interpretation Comments Urine Color (test code = 5778-6) YELLOW YELLOW [facility] CenterUrine Yntlbsa7680-22-12 17:43:00* Test Item Value Reference Range Interpretation Comments Urine Clarity (test code = 16927-6) CLOUDY CLEAR H [facility] CenterUrine Specific Dbvnslf0660-89-77 17:43:00 * Test Item Value Reference Range Interpretation Comments Urine Specific [place] (test code = 5811-5) 1.025 1.010-1.02 5 [facility] CenterUrine tM6838-04-50 17:43:00* Test Item Value Reference Range Interpretation Comments Urine pH (test code = 26218-6) 6 5-7 [facility] CenterUrine Leukocyte Ahtmyttf2743-03-70 17:43:00* Test Item Value Reference Range Interpretation Comments Urine Leukocyte Esterase (test code = 67369-4) NEGATIVE NEGATIV E [facility] CenterUrine Daxbecp1757-76-32 17:43:00* Test Item Value Reference Range Interpretation Comments Urine Nitrite (test code = 29861-0) NEGATIVE NEGATIVE [facility] CenterUrine Zhqgtor2292-00-30 17:43:00* Test Item Value Reference Range Interpretation Comments Urine Protein (test code = 80261-3) 2+ NEGATIVE H [facility] CenterUrine Glucose (UA)2019-04-17 17:43:00* Test Item Value Reference Range Interpretation Comments Urine Glucose (UA) (test code = 44903-0) 1+ NEGATIVE H [facility] CenterUrine Xhcldie7623-01-32 17:43:00* Test Item Value Reference Range Interpretation Comments Urine Ketones (test code = 80407-7) NEGATIVE NEGATIVE [facility] CenterUrine Mnzznelgrsgt4241-64-19 17:43:00* Test Item Value Reference Range Interpretation Comments Urine Urobilinogen (test code = 47700-6) 0.2 0.2-1 [facility] CenterUrine Dzqziccvu8928-07-24 17:43:00* Test Item Value Reference Range Interpretation Comments Urine Bilirubin (test code = 1977-8) NEGATIVE NEGATIVE [facility] CenterUrine Bfniy6914-30-82 17:43:00* Test Item Value Reference Range Interpretation Comments Urine Blood (test code = 82201-6) MODERATE NEGATIVE [facility] CenterBedside Gefucbc3164-80-71 11:41:00* Test Item Value Reference Range Interpretation Comments Bedside Glucose (test code = 63882-5) 71 70-120 Meter ID: [id number] Memorial Hospitalodium Level 2019-01-05 06:08:00* Test Item Value Reference Range Interpretation Comments Sodium Level (test code = 2951-2) 142 136-145 [facility] CenterPotassium Ekxev7556-96-36 06:08:00* Test Item Value Reference Range Interpretation Comments Potassium Level (test code = 2823-3) 3.5 3.5-5.1 [facility] CenterChloride Wdmia4324-33-57 06:08:00* Test Item Value Reference Range Interpretation Comments Chloride Level (test code = 2075-0) 120 98-107 H [facility] CenterCarbon Dioxide Ciwjs0416-31-19 06:08:00* Test Item Value Reference Range Interpretation Comments Carbon Dioxide Level (test code = 2028-9) 15 22-29 L [facility] CenterAnion Ojj3530-06-48 06:08:00* Test Item Value Reference Range Interpretation Comments Anion Gap (test code = 30174-2) 10.5 8-16 [facility] CenterBlood Urea Dqczcflh8814-79-24 06:08:00* Test Item Value Reference Range Interpretation Comments Blood Urea Nitrogen (test code = 3094-0) 25 7-26 [facility] CenterCreatinine2019-07-15 06:08:00* Test Item Value Reference Range Interpretation Comments Creatinine (test code = 2160-0) 1.77 0.57-1.11 H [facility] CenterBUN/Creatinine Jtlmr7312-58-57 06:08:00* Test Item Value Reference Range Interpretation Comments BUN/Creatinine Ratio (test code = 3097-3) 14 6-25 [facility] CenterEstimat Glomerular Filtration Rate 2019-01-05 06:08:00* Test Item Value Reference Range Interpretation Comments Estimat Glomerular Filtration Rate (test code = 285388822) 29 >60 L Ranges were taken from the National Kidney Disease Education Program and the [facility] Kidney Foundation literature.Reference ranges:60 or greater: Vsczlp11-47 ( for 3 consecutive months): Chronic kidney disease 15 or less: Kidney failureMethodist Charlton Medical CenterGlucose Eaisy8282-12-34 06:08:00* Test Item Value Reference Range Interpretation Comments Glucose Level (test code = YUV7815) 96 74-118 [facility] CenterCalcium Nlgel3545-35-56 06:08:00* Test Item Value Reference Range Interpretation Comments Calcium Level (test code = 22637-5) 8.0 8.4-10.2 L [facility] CenterWhite Blood Faesa4384-97-40 05:28:00* Test Item Value Reference Range Interpretation Comments White Blood Count (test code = 6690-2) 11.05 4.8-10.8 H [facility] CenterRed Blood Jranw7349-07-16 05:28:00* Test Item Value Reference Range Interpretation Comments Red Blood Count (test code = 789-8) 3.93 3.6-5.1 [facility] CenterHemoglobin2019-07-15 05:28:00* Test Item Value Reference Range Interpretation Comments Hemoglobin (test code = 41688-2) 10.9 12.0-16.0 L [facility] CenterHematocrit2019-07-15 05:28:00* Test Item Value Reference Range Interpretation Comments Hematocrit (test code = 4544-3) 33.2 34.2-44.1 L [facility] CenterMean Corpuscular Vlnfvc2378-70-74 05:28:00* Test Item Value Reference Range Interpretation Comments Mean Corpuscular Volume (test code = 787-2) 84.5 81-99 [facility] CenterMean Corpuscular Isgdxmcyrm0923-54-07 05:28:00* Test Item Value Reference Range Interpretation Comments Mean Corpuscular Hemoglobin (test code = 785-6) 27.7 28-32 L [facility] CenterMean Corpuscular Hemoglobin Concent 2019-01-05 05:28:00* Test Item Value Reference Range Interpretation Comments Mean Corpuscular Hemoglobin Concent (test code = 786-4) 32.8 31-35 [facility] CenterRed Cell Distribution Stgse0845-32-71 05:28:00* Test Item Value Reference Range Interpretation Comments Red Cell Distribution Width (test code = 96234-8) 13.5 11.7 -14.4 [facility] CenterPlatelet Msxwz5002-19-19 05:28:00* Test Item Value Reference Range Interpretation Comments Platelet Count (test code = 777-3) 363 140-360 H [facility] CenterNeutrophils (%) (Auto)2019-01-05 05:28:00 * Test Item Value Reference Range Interpretation Comments Neutrophils (%) (Auto) (test code = 53337-6) 59.9 38.7-80.0 [facility] CenterLymphocytes (%) (Auto)2019-01-05 05:28:00 * Test Item Value Reference Range Interpretation Comments Lymphocytes (%) (Auto) (test code = 736-9) 30.0 18.0-39.1 [facility] CenterMonocytes (%) (Auto)2019-01-05 05:28:00* Test Item Value Reference Range Interpretation Comments Monocytes (%) (Auto) (test code = 5905-5) 5.6 4.4-11.3 [facility] CenterEosinophils (%) (Auto)2019-01-05 05:28:00 * Test Item Value Reference Range Interpretation Comments Eosinophils (%) (Auto) (test code = 713-8) 3.3 0.0-6.0 [facility] CenterBasophils (%) (Auto)2019-01-05 05:28:00* Test Item Value Reference Range Interpretation Comments Basophils (%) (Auto) (test code = 706-2) 0.8 0.0-1.0 [facility] CenterIM GRANULOCYTES %2019-01-05 05:28:00* Test Item Value Reference Range Interpretation Comments IM GRANULOCYTES % (test code = IM GRANULOCYTES %) 0.4 0.0- 1.0 [facility] CenterNeutrophils # (Auto)2019-01-05 05:28:00* Test Item Value Reference Range Interpretation Comments Neutrophils # (Auto) (test code = 751-8) 6.6 2.1-6.9 [facility] CenterLymphocytes # (Auto)2019-01-05 05:28:00* Test Item Value Reference Range Interpretation Comments Lymphocytes # (Auto) (test code = 85127-3) 3.3 1.0-3.2 H [facility] CenterMonocytes # (Auto)2019-01-05 05:28:00* Test Item Value Reference Range Interpretation Comments Monocytes # (Auto) (test code = 742-7) 0.6 0.2-0.8 [facility] CenterEosinophils # (Auto)2019-01-05 05:28:00* Test Item Value Reference Range Interpretation Comments Eosinophils # (Auto) (test code = 711-2) 0.4 0.0-0.4 [facility] CenterBasophils # (Auto)2019-01-05 05:28:00* Test Item Value Reference Range Interpretation Comments Basophils # (Auto) (test code = 704-7) 0.1 0.0-0.1 [facility] CenterAbsolute Immature Granulocyte (auto 2019-01-05 05:28:00* Test Item Value Reference Range Interpretation Comments Absolute Immature Granulocyte (auto (jake t code = Absolute Immature Granulocyte (auto) 0.04 0-0.1 [facility] CenterTotal Cjsvqhjns4436-80-71 06:42:00* Test Item Value Reference Range Interpretation Comments Total Bilirubin (test code = 1975-2) 0.3 0.2-1.2 [facility] CenterAspartate Amino Transf (AST/SGOT) 2019-01-03 06:42:00* Test Item Value Reference Range Interpretation Comments Aspartate Amino Transf (AST/SGOT) (test code = Aspartate Amino Transf (AST/SGOT)) 10 5-34 [facility] CenterAlanine Aminotransferase (ALT/SGPT) 2019-01-03 06:42:00* Test Item Value Reference Range Interpretation Comments Alanine Aminotransferase (ALT/SGPT) (test code = 1742-6) < 6 0-55 [facility] CenterTotal Orwnyvf8169-63-64 06:42:00* Test Item Value Reference Range Interpretation Comments Total Protein (test code = 2885-2) 4.5 6.5-8.1 L [facility] CenterAlbumin2019-07-13 06:42:00* Test Item Value Reference Range Interpretation Comments Albumin (test code = 1751-7) 1.7 3.5-5.0 L [facility] CenterGlobulin2019-07-13 06:42:00* Test Item Value Reference Range Interpretation Comments Globulin (test code = 91464-1) 2.8 2.3-3.5 [facility] CenterAlbumin/Globulin Beveu0551-95-56 06:42:00 * Test Item Value Reference Range Interpretation Comments Albumin/Globulin Ratio (test code = 1759-0) 0.6 0.8-2.0 L [facility] [facility] Center[facility] Iesbtjlsgvr0024-11-18 06:42:00* Test Item Value Reference Range Interpretation Comments Alkaline Phosphatase (test code = 6768-6) 64 40-150 [facility] CenterMRI [facility] GL3705-93-28 11:46:00 [facility] [address] [place] [address] Patient Name: AWILDA ESCUDERO MR #: [id number] : 1955 Age/Sex: 63/F Req #: [id number] Adm Physician: ZAINA GORDON MD Ordered by: KARLI MANSFIELD MD Report #: [id number] Location: MED/SURG Room/Bed: [facility] Procedure: [id number] MRI/MRI BRAIN WO Exam Date: Exam Time: REPORT STATUS: Signed EXAMINATION: Brain MRI and MR angiogram of the [place] CLINICAL HISTORY: Left [...] significant inflammatory d isease. MRA OF THE [place] : The distal internal carotid, dis maura vertebral, basilar, and cerebral arteries are patent. No significant sten osis, occlusion, aneurysm, or arteriovenous malformation is seen. Anatomi c variation: Anterior Communicating Artery: Patent Posterior Communicating A rteries: Patent on the right with origin of the right COMPENSATION AND BENEFITS ADMINISTRATOR, not well-visu alized on the left Vertebral [...] MANSFIELD MD MRA HEAD WO 2019-01-02 11:46:00 [place] [address] Patient Name: AWILDA ESCUDERO MR #: [id number] : 1955 Age/Sex: 63/F Req #: [id number] Adm Physician: ZAINA GORDON MD Ordered by: ZAINA GORDON MD Report #: [id number] Location: MED/SURG Room/Bed: [facility] Procedure: [id number] MR I/MRA HEAD WO Exam Date: Exam Time: REPORT STATUS: Signed EXAMINATION: Brain MRI a nd MR angiogram of the [place] CLINICAL HISTORY: Left [...] significant inflammatory disea se. MRA OF THE [place] : The distal internal carotid, distal vertebral, basilar, and cerebral arteries are patent. No significant stenosis , occlusion, aneurysm, or arteriovenous malformation is seen. Anatomic va riation: Anterior Communicating Artery: Patent Posterior Communicating Arter ies: Patent on the right with origin of the right COMPENSATION AND BENEFITS ADMINISTRATOR, not well-visualiz ed on the left Vertebral [...] M.D. on 01/02/2019 12:02 PM Dictated By: HTOMAS PEREZ MD Elect ronically Signed By: THOMAS PEREZ MD on 01/02/19 120 Transcribed By: SCAR on 01/02/19 120 COPY TO: ZAINA GORDON MD MRA NECK PZ9423-89-76 11:46:00 [place] [address] Patient Name: AWILDA ESCUDERO MR #: [id number] : 1955 Age/Sex: 63/F Req #: [id number] Adm Physician: ZAINA GORDON MD Ordered by: ZAINA GORDON MD Report #: [id number] Location: MED/SURG Room/Bed: [facility] Procedure: [id number] MR I/MRA NECK WO Exam Date: Exam Time: REPORT STATUS: Signed EXAMINATION: Brain MRI a nd MR angiogram of the [place] CLINICAL HISTORY: Left [...] significant inflammatory disea se. MRA OF THE [place] : The distal internal carotid, distal vertebral, basilar, and cerebral arteries are patent. No significant stenosis , occlusion, aneurysm, or arteriovenous malformation is seen. Anatomic va riation: Anterior Communicating Artery: Patent Posterior Communicating Arter ies: Patent on the right with origin of the right COMPENSATION AND BENEFITS ADMINISTRATOR, not well-visualiz ed on the left Vertebral [...] = Hemoglobin A1c Percent) 5.5 4.0-7.0 [facility] CenterTriglycerides Ijxrr6902-97-17 07:19:00* Test Item Value Reference Range Interpretation Comments Triglycerides Level (test code = 2571-8) 166 0-149 H [facility] CenterCholesterol Mdhls2616-17-64 07:19:00* Test Item Value Reference Range Interpretation Comments Cholesterol Level (test code = 2093-3) 149 0-199 Less than 200 mg/dL Low Bzkq768 - 239 mg/dL Borderline Opcs865 m g/dl and greater High Risk [facility] CenterLDL Zdcvttagcef3606-89-25 07:19:00* Test Item Value Reference Range Interpretation Comments LDL Cholesterol (test code = 2089-1) 86 60-130 [facility] CenterHDL Ugfliadvbtg4731-52-67 07:19:00* Test Item Value Reference Range Interpretation Comments HDL Cholesterol (test code = 2085-9) 30 40-60 L [facility] CenterCholesterol/HDL Lnohx4880-43-37 07:19:00 * Test Item Value Reference Range Interpretation Comments Cholesterol/HDL Ratio (test code = 9830-1) 5.0 3.0-3.6 H [facility] CenterUrine KFU0237-15-93 15:50:00* Test Item Value Reference Range Interpretation Comments Urine WBC (test code = 5821-4) 0-5 0-5 [facility] CenterU[facility] HRH5232-31-39 15:50:00* Test Item Value Reference Range Interpretation Comments Urine RBC (test code = 36969-2) 6-10 0-5 H [facility] CenterUrine Hmdrxtxm8372-45-17 15:50:00* Test Item Value Reference Range Interpretation Comments Urine Bacteria (test code = 75568-6) MODERATE NONE H [facility] CenterUrine Epithelial Qootf3735-92-35 15:50:00 * Test Item Value Reference Range Interpretation Comments Urine Epithelial Cells (test code = 61430-4) MODERATE NONE [facility] CenterU[facility] Valwv7901-73-89 15:38:00* Test Item Value Reference Range Interpretation Comments Urine Color (test code = 5778-6) YELLOW YELLOW [facility] CenterUrine Mzdodpo6952-23-09 15:38:00* Test Item Value Reference Range Interpretation Comments Urine Clarity (test code = 13163-5) CLEAR CLEAR [facility] CenterUrine Specific [place]7211-04-86 15:38:00 * Test Item Value Reference Range Interpretation Comments Urine Specific [place] (test code = 5811-5) 1.015 1.010-1.02 5 [facility] CenterUrine dG3832-37-13 15:38:00* Test Item Value Reference Range Interpretation Comments Urine pH (test code = 04999-1) 6.5 5-7 [facility] CenterU[facility] Leukocyte Hkzrtwiy4161-79-81 15:38:00* Test Item Value Reference Range Interpretation Comments Urine Leukocyte Esterase (test code = 44460-3) NEGATIVE NEGATIV E [facility] CenterUrine Ezlzpdh5030-64-32 15:38:00* Test Item Value Reference Range Interpretation Comments Urine Nitrite (test code = 39462-2) NEGATIVE NEGATIVE [facility] CenterUrine Wvwdkxl1929-45-43 15:38:00* Test Item Value Reference Range Interpretation Comments Urine Protein (test code = 97760-8) 2+ NEGATIVE H [facility] CenterUrine Glucose (UA)2019-01-01 15:38:00* Test Item Value Reference Range Interpretation Comments Urine Glucose (UA) (test code = 35486-9) 2+ NEGATIVE H [facility] CenterUrine Rztxpsz1355-36-70 15:38:00* Test Item Value Reference Range Interpretation Comments Urine Ketones (test code = 64641-9) NEGATIVE NEGATIVE [facility] CenterUrine Bphmtukjjeiw2791-05-75 15:38:00* Test Item Value Reference Range Interpretation Comments Urine Urobilinogen (test code = 82048-0) 0.2 0.2-1 [facility] CenterU[facility] Obqcxquee6755-23-47 15:38:00* Test Item Value Reference Range Interpretation Comments Urine Bilirubin (test code = 1977-8) NEGATIVE NEGATIVE [facility] CenterU[facility] Hbqig1739-45-15 15:38:00* Test Item Value Reference Range Interpretation Comments Urine Blood (test code = 46319-0) 1+ NEGATIVE [facility] CenterCreatine Bsssxv0924-80-78 14:59:00* Test Item Value Reference Range Interpretation Comments Creatine Kinase (test code = 2157-6) 56 29-168 [facility] CenterCreatine Kinase BW1040-59-89 14:59:00* Test Item Value Reference Range Interpretation Comments Creatine Kinase MB (test code = 55506-7) 3.20 0-5.0 [facility] CenterTroponin H9419-83-72 14:59:00* Test Item Value Reference Range Interpretation Comments Troponin I (test code = FNU9875) 0.004 0-0.300 [facility] CenterProthrombin Ueny8051-92-24 14:42:00* Test Item Value Reference Range Interpretation Comments Prothrombin Time (test code = 5902-2) 12.7 11.9-14.5 [facility] CenterProthromb Time International Ratio 2019-01-01 14:42:00* Test Item Value Reference Range Interpretation Comments Prothromb Time International Ratio (test code = 6301-6) 0.91 Oral Anticoagulant Therapy INR Values:1. Low Intensity Therapy 1.5 - 2.02 . Moderate Intensity Therapy 2.0 - 3.03. High Intensity Therapy(1) 2.5 - 3. 54. High Intensity Therapy(2) 3.0 - 4.05. Panic Value INR > 5.0 [facility] CenterActivated Partial Thromboplast Time 2019-01-01 14:42:00* Test Item Value Reference Range Interpretation Comments Activated Partial Thromboplast Time (test code = 69328-4) 30.3 23.8-35.5 [facility] CenterProthrombin Vscg2190-81-09 14:42:00* Test Item Value Reference Range Interpretation Comments Prothrombin Time (test code = 5902-2) 12.7 11.9-14.5 [facility] CenterProthromb Time International Ratio 2019-01-01 14:42:00* Test Item Value Reference Range Interpretation Comments Prothromb Time International Ratio (test code = 6301-6) 0.91 Oral Anticoagulant Therapy INR Values:1. Low Intensity Therapy 1.5 - 2.02 . Moderate Intensity Therapy 2.0 - 3.03. High Intensity Therapy(1) 2.5 - 3. 54. High Intensity Therapy(2) 3.0 - 4.05. Panic Value INR > 5.0 [facility] CenterActivated Partial Thromboplast Time 2019-01-01 14:42:00* Test Item Value Reference Range Interpretation Comments Activated Partial Thromboplast Time (test code = 65566-4) 30.3 23.8-35.5 [facility] CenterProthrombin Djdc2777-10-50 14:42:00* Test Item Value Reference Range Interpretation Comments Prothrombin Time (test code = 5902-2) 12.7 11.9-14.5 [facility] CenterProthromb Time International Ratio 2019-01-01 14:42:00* Test Item Value Reference Range Interpretation Comments Prothromb Time International Ratio (test code = 6301-6) 0.91 Oral Anticoagulant Therapy INR Values:1. Low Intensity Therapy 1.5 - 2.02 . Moderate Intensity Therapy 2.0 - 3.03. High Intensity Therapy(1) 2.5 - 3. 54. High Intensity Therapy(2) 3.0 - 4.05. Panic Value INR > 5.0 [facility] CenterActivated Partial Thromboplast Time 2019-01-01 14:42:00* Test Item Value Reference Range Interpretation Comments Activated Partial Thromboplast Time (test code = 76707-9) 30.3 23.8-35.5 [facility] CenterCHEST SINGLE (PORTABLE)2019-01-01 14:24:00 [place] [address] Patient Name: AWILDA ESCUDERO MR #: [id number] : 1955 Age/Sex: 63/F Req #: [id number] Adm Physician: Ordered by: KARLI MANSFIELD MD Report #: [id number] Location: ER Room/Bed: Procedure: [id number] D X/CHEST SINGLE (PORTABLE) Exam Date: 01/01/19 Exam T emily: 1358 REPORT STATUS: Signed EXAMINATION: CHEST SINGLE (PORTABLE) [...] 2:24 PM Dictated By: DENISSE HEADLEY MD 23 Transcribe d By: SCAR on 01/01/191423 COPY TO: KARLI MANSFIELD MD CT BRAIN RF5225-15-25 13:27:00 [place] [address] Patient Name: AWILDA ESCUDERO MR #: [id number] : 1955 Age/Sex: 63/F Req #: [id number] Adm Physician: Ordered by: JANIE RIVER MD Report #: [id number] Location: ER Room/Bed: Procedure: [id number] CT/ CT BRAIN WO Exam Date: 01/01/19 [...] 1332 COPY TO: JANIE GODINEZ MD Bedside Teglqfm3068-71-04 16:59:00* Test Item Value Reference Range Interpretation Comments Bedside Glucose (test code = 45549-1) 105 70-120 Meter ID: [id number] Charlton Medical CenterBedside Glucose 2018-10-02 16:59:00* Test Item Value Reference Range Interpretation Comments Bedside Glucose (test code = 42090-6) 105 70-120 Meter ID: [id number] Charlton Medical CenterUrine Random Total Lzsfcai9945-92-60 10:39:00* Test Item Value Reference Range Interpretation Comments Urine Random Total Protein (test code = 2888-6) 1055.7 1-14 H [facility] CenterUrine Protein/Creatinine Bzqqw2016-92-25 10:39:00* Test Item Value Reference Range Interpretation Comments Urine Protein/Creatinine Ratio (test code = 10047-7) 26.00 [facility] CenterUrine Random Total Gyfgnzq3077-02-57 10:39:00* Test Item Value Reference Range Interpretation Comments Urine Random Total Protein (test code = 2888-6) 1055.7 1-14 H [facility] CenterUrine Protein/Creatinine Hyqka1193-43-99 10:39:00* Test Item Value Reference Range Interpretation Comments Urine Protein/Creatinine Ratio (test code = 11706-1) 26.00 [facility] CenterUrine Random Total Jkkiooc0478-22-37 10:39:00* Test Item Value Reference Range Interpretation Comments Urine Random Total Protein (test code = 2888-6) 1055.7 1-14 H [facility] CenterUrine Protein/Creatinine Tcnvz0918-04-95 10:39:00* Test Item Value Reference Range Interpretation Comments Urine Protein/Creatinine Ratio (test code = 38937-6) 26.00 [facility] CenterUrine Random Total Zwljjjp3997-76-46 10:39:00* Test Item Value Reference Range Interpretation Comments Urine Random Total Protein (test code = 2888-6) 1055.7 1-14 H [facility] CenterUrine Protein/Creatinine Zklju8383-23-76 10:39:00* Test Item Value Reference Range Interpretation Comments Urine Protein/Creatinine Ratio (test code = 25227-6) 26.00 [facility] CenterUrine Random Total Jwmpwjs2941-48-97 10:39:00* Test Item Value Reference Range Interpretation Comments Urine Random Total Protein (test code = 2888-6) 1055.7 1-14 H [facility] CenterUrine Protein/Creatinine Wvusf4145-30-80 10:39:00* Test Item Value Reference Range Interpretation Comments Urine Protein/Creatinine Ratio (test code = 74105-6) 26.00 [facility] CenterUrine Random Total Ihznvbm7873-00-69 10:39:00* Test Item Value Reference Range Interpretation Comments Urine Random Total Protein (test code = 2888-6) 1055.7 1-14 H [facility] CenterUrine Protein/Creatinine Tmrho5608-65-38 10:39:00* Test Item Value Reference Range Interpretation Comments Urine Protein/Creatinine Ratio (test code = 96065-0) 26.00 [facility] CenterUrine Edfqctnxtd2457-81-97 10:37:00* Test Item Value Reference Range Interpretation Comments Urine Creatinine (test code = 2161-8) 40.02 47-110 L [facility] CenterUrine Wiouekabsw0580-93-33 10:37:00* Test Item Value Reference Range Interpretation Comments Urine Creatinine (test code = 2161-8) 40.02 47-110 L [facility] CenterUrine Lostztvpfz5113-76-24 10:37:00* Test Item Value Reference Range Interpretation Comments Urine Creatinine (test code = 2161-8) 40.02 47-110 L [facility] CenterUrine Erzuuxwqyx3363-67-27 10:37:00* Test Item Value Reference Range Interpretation Comments Urine Creatinine (test code = 2161-8) 40.02 47-110 L [facility] Ebutmaemwa1951-56-86 10:37:00* Test Item Value Reference Range Interpretation Comments Urine Creatinine (test code = 2161-8) 40.02 47-110 L [facility] CenterUrine Nwpnmvbmrq0586-76-99 10:37:00* Test Item Value Reference Range Interpretation Comments Urine Creatinine (test code = 2161-8) 40.02 47-110 L [facility] CenterBedside Xxrtbip4133-82-09 07:26:00* Test Item Value Reference Range Interpretation Comments Bedside Glucose (test code = 60983-0) 101 70-120 Meter ID: [id number] Charlton Medical CenterUrine KQO8971-31-08 06:31:00* Test Item Value Reference Range Interpretation Comments Urine WBC (test code = 5821-4) 0-5 0-5 [facility] CenterUrine XLM4283-73-70 06:31:00* Test Item Value Reference Range Interpretation Comments Urine RBC (test code = 39831-3) 0-5 0-5 [facility] CenterUrine Rwxosotv6162-48-42 06:31:00* Test Item Value Reference Range Interpretation Comments Urine Bacteria (test code = 38976-4) RARE NONE [facility] CenterUrine Epithelial Fhjrz2670-20-12 06:31:00 * Test Item Value Reference Range Interpretation Comments Urine Epithelial Cells (test code = 12491-9) RARE NONE [facility] CenterUrine XCG3869-06-06 06:31:00* Test Item Value Reference Range Interpretation Comments Urine WBC (test code = 5821-4) 0-5 0-5 [facility] CenterUrine DGP9788-00-44 06:31:00* Test Item Value Reference Range Interpretation Comments Urine RBC (test code = 12307-5) 0-5 0-5 [facility] CenterUrine Hlgjsoms4893-69-23 06:31:00* Test Item Value Reference Range Interpretation Comments Urine Bacteria (test code = 06390-6) RARE NONE [facility] CenterUrine Epithelial Clvhf5537-23-79 06:31:00 * Test Item Value Reference Range Interpretation Comments Urine Epithelial Cells (test code = 00622-8) RARE NONE [facility] CenterU[facility] XMU3202-92-06 06:31:00* Test Item Value Reference Range Interpretation Comments Urine WBC (test code = 5821-4) 0-5 0-5 [facility] CenterU[facility] MYL9521-15-65 06:31:00* Test Item Value Reference Range Interpretation Comments Urine RBC (test code = 24852-2) 0-5 0-5 [facility] CenterU[facility] Bhgsmehh9368-43-61 06:31:00* Test Item Value Reference Range Interpretation Comments Urine Bacteria (test code = 35378-6) RARE NONE [facility] CenterUrine Epithelial Blofl9033-32-93 06:31:00 * Test Item Value Reference Range Interpretation Comments Urine Epithelial Cells (test code = 16839-4) RARE NONE [facility] CenterU[facility] Fndsa3705-05-68 06:19:00* Test Item Value Reference Range Interpretation Comments Urine Color (test code = 5778-6) YELLOW YELLOW [facility] CenterUrine Labvxib6969-01-68 06:19:00* Test Item Value Reference Range Interpretation Comments Urine Clarity (test code = 27251-1) SL CLOUDY CLEAR [facility] CenterUrine Specific Dinnodq2995-64-49 06:19:00 * Test Item Value Reference Range Interpretation Comments Urine Specific [place] (test code = 5811-5) 1.020 1.010-1.02 5 [facility] CenterU[facility] cR1158-37-10 06:19:00* Test Item Value Reference Range Interpretation Comments Urine pH (test code = 43747-7) 6.5 5-7 [facility] Leukocyte Thnktuxc2839-79-36 06:19:00* Test Item Value Reference Range Interpretation Comments Urine Leukocyte Esterase (test code = 5799-2) NEGATIVE NEGATIVE [facility] Mgtsgxr9113-55-25 06:19:00* Test Item Value Reference Range Interpretation Comments Urine Nitrite (test code = 34296-9) NEGATIVE NEGATIVE [facility] Cfecnnt2796-04-52 06:19:00* Test Item Value Reference Range Interpretation Comments Urine Protein (test code = 5804-0) 3+ NEGATIVE H [facility] Glucose (UA)2018-10-02 06:19:00* Test Item Value Reference Range Interpretation Comments Urine Glucose (UA) (test code = 2349-9) 2+ NEGATIVE H [facility] Kmjoiol1013-06-17 06:19:00* Test Item Value Reference Range Interpretation Comments Urine Ketones (test code = 75528-7) NEGATIVE NEGATIVE [facility] Zespfskksgpu0989-91-09 06:19:00* Test Item Value Reference Range Interpretation Comments Urine Urobilinogen (test code = 19923-4) 0.2 0.2-1 [facility] Hozgbemvm1974-17-34 06:19:00* Test Item Value Reference Range Interpretation Comments Urine Bilirubin (test code = 1978-6) NEGATIVE NEGATIVE [facility] Phmtp2246-50-29 06:19:00* Test Item Value Reference Range Interpretation Comments Urine Blood (test code = 20293-1) TRACE NEGATIVE H [facility] Fglaq0017-57-72 06:19:00* Test Item Value Reference Range Interpretation Comments Urine Color (test code = 5778-6) YELLOW YELLOW [facility] CenterU[facility] Rehkiiv6301-14-27 06:19:00* Test Item Value Reference Range Interpretation Comments Urine Clarity (test code = 77022-7) SL CLOUDY CLEAR [facility] CenterUrine Specific Txdpvbf7275-93-26 06:19:00 * Test Item Value Reference Range Interpretation Comments Urine Specific [place] (test code = 5811-5) 1.020 1.010-1.02 5 [facility] CenterU[facility] aL1512-52-90 06:19:00* Test Item Value Reference Range Interpretation Comments Urine pH (test code = 26751-3) 6.5 5-7 [facility] Leukocyte Nsuhefmj7224-71-33 06:19:00* Test Item Value Reference Range Interpretation Comments Urine Leukocyte Esterase (test code = 5799-2) NEGATIVE NEGATIVE [facility] Snzpcfm4071-21-28 06:19:00* Test Item Value Reference Range Interpretation Comments Urine Nitrite (test code = 01777-4) NEGATIVE NEGATIVE [facility] Padzbtl5630-31-67 06:19:00* Test Item Value Reference Range Interpretation Comments Urine Protein (test code = 5804-0) 3+ NEGATIVE H [facility] Glucose (UA)2018-10-02 06:19:00* Test Item Value Reference Range Interpretation Comments Urine Glucose (UA) (test code = 2349-9) 2+ NEGATIVE H [facility] Nmmfksw8614-71-89 06:19:00* Test Item Value Reference Range Interpretation Comments Urine Ketones (test code = 42743-9) NEGATIVE NEGATIVE [facility] Desdsbonqxyn2105-67-20 06:19:00* Test Item Value Reference Range Interpretation Comments Urine Urobilinogen (test code = 40903-7) 0.2 0.2-1 [facility] CenterU[facility] Jvmbksfem0599-92-20 06:19:00* Test Item Value Reference Range Interpretation Comments Urine Bilirubin (test code = 1978-6) NEGATIVE NEGATIVE [facility] Rspjz9197-61-97 06:19:00* Test Item Value Reference Range Interpretation Comments Urine Blood (test code = 06407-5) TRACE NEGATIVE H [facility] CenterU[facility] Efkwg1396-41-20 06:19:00* Test Item Value Reference Range Interpretation Comments Urine Color (test code = 5778-6) YELLOW YELLOW [facility] CenterU[facility] Yggqrkb1846-76-09 06:19:00* Test Item Value Reference Range Interpretation Comments Urine Clarity (test code = 91800-2) SL CLOUDY CLEAR [facility] Specific Gsjxems9301-36-97 06:19:00 * Test Item Value Reference Range Interpretation Comments Urine Specific [place] (test code = 5811-5) 1.020 1.010-1.02 5 [facility] CenterU[facility] eN1259-44-75 06:19:00* Test Item Value Reference Range Interpretation Comments Urine pH (test code = 38986-3) 6.5 5-7 [facility] Leukocyte Hwetbrcf6832-07-43 06:19:00* Test Item Value Reference Range Interpretation Comments Urine Leukocyte Esterase (test code = 5799-2) NEGATIVE NEGATIVE [facility] Yeblpwa8210-68-52 06:19:00* Test Item Value Reference Range Interpretation Comments Urine Nitrite (test code = 18862-3) NEGATIVE NEGATIVE [facility] Mlzbkdh4159-36-89 06:19:00* Test Item Value Reference Range Interpretation Comments Urine Protein (test code = 5804-0) 3+ NEGATIVE H [facility] Glucose (UA)2018-10-02 06:19:00* Test Item Value Reference Range Interpretation Comments Urine Glucose (UA) (test code = 2349-9) 2+ NEGATIVE H [facility] Ukvbief4505-24-74 06:19:00* Test Item Value Reference Range Interpretation Comments Urine Ketones (test code = 67797-7) NEGATIVE NEGATIVE [facility] Peglexwmvfss1148-37-94 06:19:00* Test Item Value Reference Range Interpretation Comments Urine Urobilinogen (test code = 96668-2) 0.2 0.2-1 [facility] Pvuokiunn8974-65-30 06:19:00* Test Item Value Reference Range Interpretation Comments Urine Bilirubin (test code = 1978-6) NEGATIVE NEGATIVE [facility] Knhco0132-88-92 06:19:00* Test Item Value Reference Range Interpretation Comments Urine Blood (test code = 33198-0) TRACE NEGATIVE [facility] Tlwmk8300-59-83 05:45:00* Test Item Value Reference Range Interpretation Comments Sodium Level (test code = 2951-2) 138 136-145 [facility] CenterPotassium Fikwk3345-53-83 05:45:00* Test Item Value Reference Range Interpretation Comments Potassium Level (test code = 2823-3) 4.8 3.5-5.1 [facility] CenterChloride Gzcza5867-69-26 05:45:00* Test Item Value Reference Range Interpretation Comments Chloride Level (test code = 2075-0) 116 98-107 H [facility] CenterCarbon Dioxide Dizuc9343-87-87 05:45:00* Test Item Value Reference Range Interpretation Comments Carbon Dioxide Level (test code = 2028-9) 18 22-29 L [facility] CenterAnion Tio8149-03-03 05:45:00* Test Item Value Reference Range Interpretation Comments Anion Gap (test code = 25837-6) 8.8 8-16 [facility] CenterBlood Urea Uflhdrfv1025-13-11 05:45:00* Test Item Value Reference Range Interpretation Comments Blood Urea Nitrogen (test code = 3094-0) 39 7-26 [facility] CenterCreatinine2019-04-11 05:45:00* Test Item Value Reference Range Interpretation Comments Creatinine (test code = 2160-0) 1.74 0.57-1.11 [facility] CenterBUN/Creatinine Kbfeu1736-17-37 05:45:00* Test Item Value Reference Range Interpretation Comments BUN/Creatinine Ratio (test code = 3097-3) 22 6-25 [facility] CenterEstimat Glomerular Filtration Rate 2018-10-02 05:45:00* Test Item Value Reference Range Interpretation Comments Estimat Glomerular Filtration Rate (test code = 132383811) 29 >60 L Ranges were taken from the National Kidney Disease Education Program and the [facility] literature.Reference ranges:60 or greater: Uhtevl93-60 ( for 3 consecutive months): Chronic kidney disease 15 or less: Kidney failureMethodist Charlton Medical CenterGlucose Bekir6356-40-44 05:45:00* Test Item Value Reference Range Interpretation Comments Glucose Level (test code = IOI8548) 104 74-118 [facility] CenterCalcium Djwvm6874-21-01 05:45:00* Test Item Value Reference Range Interpretation Comments Calcium Level (test code = 85209-8) 8.4 8.4-10.2 [facility] Jybvx6574-93-37 05:45:00* Test Item Value Reference Range Interpretation Comments Sodium Level (test code = 2951-2) 138 136-145 [facility] CenterPotassium Goekv3214-99-03 05:45:00* Test Item Value Reference Range Interpretation Comments Potassium Level (test code = 2823-3) 4.8 3.5-5.1 [facility] CenterChloride Mlzpy8971-33-16 05:45:00* Test Item Value Reference Range Interpretation Comments Chloride Level (test code = 2075-0) 116 98-107 [facility] CenterCarbon Dioxide Uocad4215-87-96 05:45:00* Test Item Value Reference Range Interpretation Comments Carbon Dioxide Level (test code = 2028-9) 18 22-29 L [facility] CenterAnion Ymg1274-25-58 05:45:00* Test Item Value Reference Range Interpretation Comments Anion Gap (test code = 87183-0) 8.8 8-16 [facility] CenterBlood Urea Jlwtoxji8521-28-09 05:45:00* Test Item Value Reference Range Interpretation Comments Blood Urea Nitrogen (test code = 3094-0) 39 7-26 [facility] CenterCreatinine2019-04-11 05:45:00* Test Item Value Reference Range Interpretation Comments Creatinine (test code = 2160-0) 1.74 0.57-1.11 [facility] CenterBUN/Creatinine Dhqkl6407-62-57 05:45:00* Test Item Value Reference Range Interpretation Comments BUN/Creatinine Ratio (test code = 3097-3) 22 6-25 [facility] CenterEstimat Glomerular Filtration Rate 2018-10-02 05:45:00* Test Item Value Reference Range Interpretation Comments Estimat Glomerular Filtration Rate (test code = 016616464) 29 >60 L Ranges were taken from the National Kidney Disease Education Program and the [facility] Kidney Foundation literature.Reference ranges:60 or greater: Ehqdcy39-48 ( for 3 consecutive months): Chronic kidney disease 15 or less: Kidney failureMethodist Charlton Medical CenterGlucose Duhwb4576-84-11 05:45:00* Test Item Value Reference Range Interpretation Comments Glucose Level (test code = VPD8962) 104 74-118 [facility] CenterCalcium Bjkwg0209-27-42 05:45:00* Test Item Value Reference Range Interpretation Comments Calcium Level (test code = 21736-4) 8.4 8.4-10.2 [facility]odium Rshbk0773-67-46 05:45:00* Test Item Value Reference Range Interpretation Comments Sodium Level (test code = 2951-2) 138 136-145 [facility] CenterPotassium Wcuqv2688-04-09 05:45:00* Test Item Value Reference Range Interpretation Comments Potassium Level (test code = 2823-3) 4.8 3.5-5.1 [facility] CenterChloride Zznpa2486-05-07 05:45:00* Test Item Value Reference Range Interpretation Comments Chloride Level (test code = 2075-0) 116 98-107 [facility] CenterCarbon Dioxide Qlqpk9760-46-40 05:45:00* Test Item Value Reference Range Interpretation Comments Carbon Dioxide Level (test code = 2028-9) 18 22-29 L [facility] CenterAnion Oxi3442-14-62 05:45:00* Test Item Value Reference Range Interpretation Comments Anion Gap (test code = 03200-4) 8.8 8-16 [facility] CenterBlood Urea Piiradju9642-92-72 05:45:00* Test Item Value Reference Range Interpretation Comments Blood Urea Nitrogen (test code = 3094-0) 39 7-26 [facility] CenterCreatinine2019-04-11 05:45:00* Test Item Value Reference Range Interpretation Comments Creatinine (test code = 2160-0) 1.74 0.57-1.11 [facility] CenterBUN/Creatinine Jbfms5647-33-13 05:45:00* Test Item Value Reference Range Interpretation Comments BUN/Creatinine Ratio (test code = 3097-3) 22 6-25 [facility] CenterEstimat Glomerular Filtration Rate 2018-10-02 05:45:00* Test Item Value Reference Range Interpretation Comments Estimat Glomerular Filtration Rate (test code = 748163972) 29 >60 L Ranges were taken from the National Kidney Disease Education Program and the [facility] Kidney Foundation literature.Reference ranges:60 or greater: Fiwppi24-12 ( for 3 consecutive months): Chronic kidney disease 15 or less: Kidney failureMethodist Charlton Medical CenterGlucose Tnkzf4024-49-91 05:45:00* Test Item Value Reference Range Interpretation Comments Glucose Level (test code = YPV8950) 104 74-118 [facility] CenterCalcium Kjzxh9685-31-65 05:45:00* Test Item Value Reference Range Interpretation Comments Calcium Level (test code = 99952-0) 8.4 8.4-10.2 [facility] CenterWhite Blood Qjsxy9149-45-81 04:58:00* Test Item Value Reference Range Interpretation Comments White Blood Count (test code = 6690-2) 11.01 4.8-10.8 H [facility] CenterRed Blood Itouh3818-91-89 04:58:00* Test Item Value Reference Range Interpretation Comments Red Blood Count (test code = 789-8) 4.63 3.6-5.1 [facility] CenterHemoglobin2019-04-11 04:58:00* Test Item Value Reference Range Interpretation Comments Hemoglobin (test code = 14187-5) 12.2 12.0-16.0 [facility] CenterHematocrit2019-04-11 04:58:00* Test Item Value Reference Range Interpretation Comments Hematocrit (test code = 4544-3) 38.7 34.2-44.1 [facility] CenterMean Corpuscular Cgefxr7305-06-55 04:58:00* Test Item Value Reference Range Interpretation Comments Mean Corpuscular Volume (test code = 787-2) 83.6 81-99 [facility] CenterMean Corpuscular Ghwhncmeho7563-42-15 04:58:00* Test Item Value Reference Range Interpretation Comments Mean Corpuscular Hemoglobin (test code = 785-6) 26.3 28-32 L [facility] CenterMean Corpuscular Hemoglobin Concent 2018-10-02 04:58:00* Test Item Value Reference Range Interpretation Comments Mean Corpuscular Hemoglobin Concent (test code = 786-4) 31.5 31-35 [facility] CenterRed Cell Distribution Wrcwk6279-11-19 04:58:00* Test Item Value Reference Range Interpretation Comments Red Cell Distribution Width (test code = 32297-7) 14.8 11.7 -14.4 H [facility] CenterPlatelet Gdoas0208-83-49 04:58:00* Test Item Value Reference Range Interpretation Comments Platelet Count (test code = 777-3) 394 140-360 [facility] CenterNeutrophils (%) (Auto)2018-10-02 04:58:00 * Test Item Value Reference Range Interpretation Comments Neutrophils (%) (Auto) (test code = 90625-6) 51.9 38.7-80.0 [facility] CenterLymphocytes (%) (Auto)2018-10-02 04:58:00 * Test Item Value Reference Range Interpretation Comments Lymphocytes (%) (Auto) (test code = 736-9) 37.2 18.0-39.1 [facility] CenterMonocytes (%) (Auto)2018-10-02 04:58:00* Test Item Value Reference Range Interpretation Comments Monocytes (%) (Auto) (test code = 5905-5) 5.8 4.4-11.3 [facility] CenterEosinophils (%) (Auto)2018-10-02 04:58:00 * Test Item Value Reference Range Interpretation Comments Eosinophils (%) (Auto) (test code = 713-8) 3.7 0.0-6.0 [facility] CenterBasophils (%) (Auto)2018-10-02 04:58:00* Test Item Value Reference Range Interpretation Comments Basophils (%) (Auto) (test code = 706-2) 0.9 0.0-1.0 [facility] CenterIM GRANULOCYTES %2018-10-02 04:58:00* Test Item Value Reference Range Interpretation Comments IM GRANULOCYTES % (test code = IM GRANULOCYTES %) 0.5 0.0- 1.0 [facility] CenterNeutrophils # (Auto)2018-10-02 04:58:00* Test Item Value Reference Range Interpretation Comments Neutrophils # (Auto) (test code = 751-8) 5.7 2.1-6.9 [facility] CenterLymphocytes # (Auto)2018-10-02 04:58:00* Test Item Value Reference Range Interpretation Comments Lymphocytes # (Auto) (test code = 48214-7) 4.1 1.0-3.2 [facility] CenterMonocytes # (Auto)2018-10-02 04:58:00* Test Item Value Reference Range Interpretation Comments Monocytes # (Auto) (test code = 742-7) 0.6 0.2-0.8 [facility] CenterEosinophils # (Auto)2018-10-02 04:58:00* Test Item Value Reference Range Interpretation Comments Eosinophils # (Auto) (test code = 711-2) 0.4 0.0-0.4 [facility] CenterBasophils # (Auto)2018-10-02 04:58:00* Test Item Value Reference Range Interpretation Comments Basophils # (Auto) (test code = 704-7) 0.1 0.0-0.1 [facility] CenterAbsolute Immature Granulocyte (auto 2018-10-02 04:58:00* Test Item Value Reference Range Interpretation Comments Absolute Immature Granulocyte (auto (jake t code = Absolute Immature Granulocyte (auto) 0.06 0-0.1 [facility] CenterWhite Blood Yeaux8339-52-82 04:58:00* Test Item Value Reference Range Interpretation Comments White Blood Count (test code = 6690-2) 11.01 4.8-10.8 H [facility] CenterRed Blood Plwas7685-22-95 04:58:00* Test Item Value Reference Range Interpretation Comments Red Blood Count (test code = 789-8) 4.63 3.6-5.1 [facility] CenterHemoglobin2019-04-11 04:58:00* Test Item Value Reference Range Interpretation Comments Hemoglobin (test code = 01306-2) 12.2 12.0-16.0 [facility] CenterHematocrit2019-04-11 04:58:00* Test Item Value Reference Range Interpretation Comments Hematocrit (test code = 4544-3) 38.7 34.2-44.1 [facility] CenterMean Corpuscular Cnmymh5594-92-83 04:58:00* Test Item Value Reference Range Interpretation Comments Mean Corpuscular Volume (test code = 787-2) 83.6 81-99 [facility] CenterMean Corpuscular Mvsmqqfata1130-75-67 04:58:00* Test Item Value Reference Range Interpretation Comments Mean Corpuscular Hemoglobin (test code = 785-6) 26.3 28-32 L [facility] CenterMean Corpuscular Hemoglobin Concent 2018-10-02 04:58:00* Test Item Value Reference Range Interpretation Comments Mean Corpuscular Hemoglobin Concent (test code = 786-4) 31.5 31-35 [facility] CenterRed Cell Distribution Dlwbv7808-30-67 04:58:00* Test Item Value Reference Range Interpretation Comments Red Cell Distribution Width (test code = 27734-3) 14.8 11.7 -14.4 H [facility] CenterPlatelet Pteql7217-64-69 04:58:00* Test Item Value Reference Range Interpretation Comments Platelet Count (test code = 777-3) 394 140-360 [facility] CenterNeutrophils (%) (Auto)2018-10-02 04:58:00 * Test Item Value Reference Range Interpretation Comments Neutrophils (%) (Auto) (test code = 85881-6) 51.9 38.7-80.0 [facility] CenterLymphocytes (%) (Auto)2018-10-02 04:58:00 * Test Item Value Reference Range Interpretation Comments Lymphocytes (%) (Auto) (test code = 736-9) 37.2 18.0-39.1 [facility] CenterMonocytes (%) (Auto)2018-10-02 04:58:00* Test Item Value Reference Range Interpretation Comments Monocytes (%) (Auto) (test code = 5905-5) 5.8 4.4-11.3 [facility] CenterEosinophils (%) (Auto)2018-10-02 04:58:00 * Test Item Value Reference Range Interpretation Comments Eosinophils (%) (Auto) (test code = 713-8) 3.7 0.0-6.0 [facility] CenterBasophils (%) (Auto)2018-10-02 04:58:00* Test Item Value Reference Range Interpretation Comments Basophils (%) (Auto) (test code = 706-2) 0.9 0.0-1.0 [facility] CenterIM GRANULOCYTES %2018-10-02 04:58:00* Test Item Value Reference Range Interpretation Comments IM GRANULOCYTES % (test code = IM GRANULOCYTES %) 0.5 0.0- 1.0 [facility] CenterNeutrophils # (Auto)2018-10-02 04:58:00* Test Item Value Reference Range Interpretation Comments Neutrophils # (Auto) (test code = 751-8) 5.7 2.1-6.9 [facility] CenterLymphocytes # (Auto)2018-10-02 04:58:00* Test Item Value Reference Range Interpretation Comments Lymphocytes # (Auto) (test code = 20791-5) 4.1 1.0-3.2 [facility] CenterMonocytes # (Auto)2018-10-02 04:58:00* Test Item Value Reference Range Interpretation Comments Monocytes # (Auto) (test code = 742-7) 0.6 0.2-0.8 [facility] CenterEosinophils # (Auto)2018-10-02 04:58:00* Test Item Value Reference Range Interpretation Comments Eosinophils # (Auto) (test code = 711-2) 0.4 0.0-0.4 [facility] CenterBasophils # (Auto)2018-10-02 04:58:00* Test Item Value Reference Range Interpretation Comments Basophils # (Auto) (test code = 704-7) 0.1 0.0-0.1 [facility] CenterAbsolute Immature Granulocyte (auto 2018-10-02 04:58:00* Test Item Value Reference Range Interpretation Comments Absolute Immature Granulocyte (auto (jake t code = Absolute Immature Granulocyte (auto) 0.06 0-0.1 [facility] CenterWhite Blood Glpnn7393-99-35 04:58:00* Test Item Value Reference Range Interpretation Comments White Blood Count (test code = 6690-2) 11.01 4.8-10.8 [facility] CenterRed Blood Uyhfm5249-21-76 04:58:00* Test Item Value Reference Range Interpretation Comments Red Blood Count (test code = 789-8) 4.63 3.6-5.1 [facility] CenterHemoglobin2019-04-11 04:58:00* Test Item Value Reference Range Interpretation Comments Hemoglobin (test code = 16951-2) 12.2 12.0-16.0 [facility] CenterHematocrit2019-04-11 04:58:00* Test Item Value Reference Range Interpretation Comments Hematocrit (test code = 4544-3) 38.7 34.2-44.1 [facility] CenterMean Corpuscular Xgoozj9361-22-54 04:58:00* Test Item Value Reference Range Interpretation Comments Mean Corpuscular Volume (test code = 787-2) 83.6 81-99 [facility] CenterMean Corpuscular Vryvjounms8291-49-78 04:58:00* Test Item Value Reference Range Interpretation Comments Mean Corpuscular Hemoglobin (test code = 785-6) 26.3 28-32 L [facility] CenterMean Corpuscular Hemoglobin Concent 2018-10-02 04:58:00* Test Item Value Reference Range Interpretation Comments Mean Corpuscular Hemoglobin Concent (test code = 786-4) 31.5 31-35 [facility] CenterRed Cell Distribution Stuyr3639-04-99 04:58:00* Test Item Value Reference Range Interpretation Comments Red Cell Distribution Width (test code = 54243-5) 14.8 11.7 -14.4 H [facility] CenterPlatelet Uxlip7546-59-42 04:58:00* Test Item Value Reference Range Interpretation Comments Platelet Count (test code = 777-3) 394 140-360 [facility] CenterNeutrophils (%) (Auto)2018-10-02 04:58:00 * Test Item Value Reference Range Interpretation Comments Neutrophils (%) (Auto) (test code = 08025-8) 51.9 38.7-80.0 [facility] CenterLymphocytes (%) (Auto)2018-10-02 04:58:00 * Test Item Value Reference Range Interpretation Comments Lymphocytes (%) (Auto) (test code = 736-9) 37.2 18.0-39.1 [facility] CenterMonocytes (%) (Auto)2018-10-02 04:58:00* Test Item Value Reference Range Interpretation Comments Monocytes (%) (Auto) (test code = 5905-5) 5.8 4.4-11.3 [facility] CenterEosinophils (%) (Auto)2018-10-02 04:58:00 * Test Item Value Reference Range Interpretation Comments Eosinophils (%) (Auto) (test code = 713-8) 3.7 0.0-6.0 [facility] CenterBasophils (%) (Auto)2018-10-02 04:58:00* Test Item Value Reference Range Interpretation Comments Basophils (%) (Auto) (test code = 706-2) 0.9 0.0-1.0 [facility] CenterIM GRANULOCYTES %2018-10-02 04:58:00* Test Item Value Reference Range Interpretation Comments IM GRANULOCYTES % (test code = IM GRANULOCYTES %) 0.5 0.0- 1.0 [facility] CenterNeutrophils # (Auto)2018-10-02 04:58:00* Test Item Value Reference Range Interpretation Comments Neutrophils # (Auto) (test code = 751-8) 5.7 2.1-6.9 [facility] CenterLymphocytes # (Auto)2018-10-02 04:58:00* Test Item Value Reference Range Interpretation Comments Lymphocytes # (Auto) (test code = 62587-4) 4.1 1.0-3.2 H [facility] CenterMonocytes # (Auto)2018-10-02 04:58:00* Test Item Value Reference Range Interpretation Comments Monocytes # (Auto) (test code = 742-7) 0.6 0.2-0.8 [facility] CenterEosinophils # (Auto)2018-10-02 04:58:00* Test Item Value Reference Range Interpretation Comments Eosinophils # (Auto) (test code = 711-2) 0.4 0.0-0.4 [facility] CenterBasophils # (Auto)2018-10-02 04:58:00* Test Item Value Reference Range Interpretation Comments Basophils # (Auto) (test code = 704-7) 0.1 0.0-0.1 [facility] CenterAbsolute Immature Granulocyte (auto 2018-10-02 04:58:00* Test Item Value Reference Range Interpretation Comments Absolute Immature Granulocyte (auto (jake t code = Absolute Immature Granulocyte (auto) 0.06 0-0.1 [facility] CenterCreatine Kinase NZ2603-38-75 16:45:00* Test Item Value Reference Range Interpretation Comments Creatine Kinase MB (test code = 46322-6) 1.30 0-5.0 [facility] CenterTroponin H5306-01-84 16:45:00* Test Item Value Reference Range Interpretation Comments Troponin I (test code = YVE5937) 0.021 0-0.300 [facility] CenterCreatine Kinase GC3813-83-26 16:45:00* Test Item Value Reference Range Interpretation Comments Creatine Kinase MB (test code = 91962-8) 1.30 0-5.0 [place] 01755019-04-10 16:45:00* Test Item Value Reference Range Interpretation Comments Troponin I (test code = JRS0680) 0.021 0-0.300 [facility] CenterCreatine Kinase SP6142-08-38 16:45:00* Test Item Value Reference Range Interpretation Comments Creatine Kinase MB (test code = 18573-8) 1.30 0-5.0 [place] 01755019-04-10 16:45:00* Test Item Value Reference Range Interpretation Comments Troponin I (test code = NVP3383) 0.021 0-0.300 [facility] CenterCreatine Sjytmt5912-54-73 16:39:00* Test Item Value Reference Range Interpretation Comments Creatine Kinase (test code = 2157-6) 113 29-168 [facility] CenterCreatine Rplzfp9000-63-65 16:39:00* Test Item Value Reference Range Interpretation Comments Creatine Kinase (test code = 2157-6) 113 29-168 [facility] CenterCreatine Rhjtck8434-72-11 16:39:00* Test Item Value Reference Range Interpretation Comments Creatine Kinase (test code = 2157-6) 113 29-168 [facility] CenterMRI SPINE CERVICAL RX9361-99-04 14:58:00 [facility] [address] [place] [address] Patient Name: AWILDA ESCUDERO MR #: [id number] : 1955 Age/Sex: 63/F Req #: [id number] Adm Physician: ZAINA GORDON MD Ordered by: ZAINA GORDON MD Report #: [id number] Location: [facility] Room/Bed: [address] Procedure: [id number] MR I/MRI SPINE CERVICAL WO Exam Date: [...] 3:05 PM Dictated By: BASIM VIRK MD 150 Transcribed By : SCAR on 10/01/18 1504 COPY TO: ZAINA GORDON MD MRI BRAIN CP5834-11-22 14:40:00 [place] [address] Patient Name: AWILDA ESCUDERO MR #: [id number] : 1955 Age/Sex: 63/F Req #: [id number] Adm Physician: ZAINA GORDON MD Ordered by: HOLA MUNOZ M.D. Report #: [id number] Location: [facility] Room/Bed: [place] [address] Procedure: [id number] MRI/MRI BRAIN WO Exam [...] MUNOZ MD RENAL RETROPERITONEAL COMP 2018-10-01 09:25:00 [place] [address] Patient Name: AWILDA ESCUDERO MR #: [id number] : 1955 Age/Sex: 63/F Req #: [id number] Adm Physician: ZAINA GORDON MD Ordered by: ZAINA GORDON MD Report #: [id number] Location: [facility] Room/Bed: [place] [address] Procedure: [id number] US /US RENAL RETROPERITONEAL COMP Exam Date: [...] 10/01/18925 COPY TO: ZAINA GORDON MD Total Eymibfgmb3535-27-79 09:15:00* Test Item Value Reference Range Interpretation Comments Total Bilirubin (test code = 1975-2) 0.2 0.2-1.2 [facility] CenterAspartate Amino Transf (AST/SGOT) 2018-10-01 09:15:00* Test Item Value Reference Range Interpretation Comments Aspartate Amino Transf (AST/SGOT) (test code = Aspartate Amino Transf (AST/SGOT)) 11 5-34 [facility] CenterAlanine Aminotransferase (ALT/SGPT) 2018-10-01 09:15:00* Test Item Value Reference Range Interpretation Comments Alanine Aminotransferase (ALT/SGPT) (test code = 1742-6) 6 0-55 [facility] CenterTotal Hkehggi8624-37-59 09:15:00* Test Item Value Reference Range Interpretation Comments Total Protein (test code = 2885-2) 5.2 6.5-8.1 L [facility] CenterAlbumin2019-04-10 09:15:00* Test Item Value Reference Range Interpretation Comments Albumin (test code = 1751-7) 1.8 3.5-5.0 L [facility] CenterGlobulin2019-04-10 09:15:00* Test Item Value Reference Range Interpretation Comments Globulin (test code = 30072-6) 3.4 2.3-3.5 [facility] CenterAlbumin/Globulin Rgdia6617-60-86 09:15:00 * Test Item Value Reference Range Interpretation Comments Albumin/Globulin Ratio (test code = 1759-0) 0.5 0.8-2.0 L [facility] CenterAlkaline Ormleoxysju8256-23-87 09:15:00* Test Item Value Reference Range Interpretation Comments Alkaline Phosphatase (test code = 6768-6) 76 40-150 [facility] CenterTotal Gvkbkruto3443-54-12 09:15:00* Test Item Value Reference Range Interpretation Comments Total Bilirubin (test code = 1975-2) 0.2 0.2-1.2 [facility] CenterAspartate Amino Transf (AST/SGOT) 2018-10-01 09:15:00* Test Item Value Reference Range Interpretation Comments Aspartate Amino Transf (AST/SGOT) (test code = Aspartate Amino Transf (AST/SGOT)) 11 5-34 [facility] CenterAlanine Aminotransferase (ALT/SGPT) 2018-10-01 09:15:00* Test Item Value Reference Range Interpretation Comments Alanine Aminotransferase (ALT/SGPT) (test code = 1742-6) 6 0-55 [facility] CenterTotal Bwfxspx4549-06-77 09:15:00* Test Item Value Reference Range Interpretation Comments Total Protein (test code = 2885-2) 5.2 6.5-8.1 L [facility] CenterAlbumin2019-04-10 09:15:00* Test Item Value Reference Range Interpretation Comments Albumin (test code = 1751-7) 1.8 3.5-5.0 L [facility] CenterGlobulin2019-04-10 09:15:00* Test Item Value Reference Range Interpretation Comments Globulin (test code = 98078-1) 3.4 2.3-3.5 [facility] CenterAlbumin/Globulin Advxi4122-75-13 09:15:00 * Test Item Value Reference Range Interpretation Comments Albumin/Globulin Ratio (test code = 1759-0) 0.5 0.8-2.0 L [facility] CenterAlkaline Vwzpdgdxqhl4123-00-72 09:15:00* Test Item Value Reference Range Interpretation Comments Alkaline Phosphatase (test code = 6768-6) 76 40-150 [facility] CenterTotal Mlzrobgif0612-43-35 09:15:00* Test Item Value Reference Range Interpretation Comments Total Bilirubin (test code = 1975-2) 0.2 0.2-1.2 [facility] CenterAspartate Amino Transf (AST/SGOT) 2018-10-01 09:15:00* Test Item Value Reference Range Interpretation Comments Aspartate Amino Transf (AST/SGOT) (test code = Aspartate Amino Transf (AST/SGOT)) 11 5-34 [facility] CenterAlanine Aminotransferase (ALT/SGPT) 2018-10-01 09:15:00* Test Item Value Reference Range Interpretation Comments Alanine Aminotransferase (ALT/SGPT) (test code = 1742-6) 6 0-55 [facility] CenterTotal Izeaiig7653-98-45 09:15:00* Test Item Value Reference Range Interpretation Comments Total Protein (test code = 2885-2) 5.2 6.5-8.1 L [facility] CenterAlbumin2019-04-10 09:15:00* Test Item Value Reference Range Interpretation Comments Albumin (test code = 1751-7) 1.8 3.5-5.0 L [facility] CenterGlobulin2019-04-10 09:15:00* Test Item Value Reference Range Interpretation Comments Globulin (test code = 72790-1) 3.4 2.3-3.5 [facility] CenterAlbumin/Globulin Xmund2101-47-89 09:15:00 * Test Item Value Reference Range Interpretation Comments Albumin/Globulin Ratio (test code = 1759-0) 0.5 0.8-2.0 L [facility] CenterAlkaline Syloxueehlv6546-50-47 09:15:00* Test Item Value Reference Range Interpretation Comments Alkaline Phosphatase (test code = 6768-6) 76 40-150 [facility] CenterB-Type Natriuretic Dgqxsrq8292-96-06 14:41:00* Test Item Value Reference Range Interpretation Comments B-Type Natriuretic Peptide (test code = 56005-2) 47.7 0-100 [facility] CenterThyroid Stimulating Hormone (TSH) 2018-09-30 14:41:00* Test Item Value Reference Range Interpretation Comments Thyroid Stimulating Hormone (TSH) (test code = 46444-6) 3.276 0.350-4.940 [facility] CenterB[facility] Natriuretic Bzjzyzi9229-96-15 14:41:00* Test Item Value Reference Range Interpretation Comments B-Type Natriuretic Peptide (test code = 02687-1) 47.7 0-100 [facility] CenterThyroid Stimulating Hormone (TSH) 2018-09-30 14:41:00* Test Item Value Reference Range Interpretation Comments Thyroid Stimulating Hormone (TSH) (test code = 95427-7) 3.276 0.350-4.940 [facility] CenterB-[facility] Natriuretic Bhryvtg6801-29-07 14:41:00* Test Item Value Reference Range Interpretation Comments B-Type Natriuretic Peptide (test code = 93762-6) 47.7 0-100 [facility] CenterThyroid Stimulating Hormone (TSH) 2018-09-30 14:41:00* Test Item Value Reference Range Interpretation Comments Thyroid Stimulating Hormone (TSH) (test code = 60691-4) 3.276 0.350-4.940 [facility] CenterB[facility] Natri[facility]tic Yvnrjtq8619-71-37 14:41:00* Test Item Value Reference Range Interpretation Comments B-Type Natriuretic Peptide (test code = 22265-8) 47.7 0-100 [facility] CenterThyroid Stimulating Hormone (TSH) 2018-09-30 14:41:00* Test Item Value Reference Range Interpretation Comments Thyroid Stimulating Hormone (TSH) (test code = 17141-0) 3.276 0.350-4.940 [facility] CenterB[facility] Natri[facility]tic Gqvtojr9508-03-49 14:41:00* Test Item Value Reference Range Interpretation Comments B-Type Natriuretic Peptide (test code = 11500-5) 47.7 0-100 [facility] CenterThyroid Stimulating Hormone (TSH) 2018-09-30 14:41:00* Test Item Value Reference Range Interpretation Comments Thyroid Stimulating Hormone (TSH) (test code = 32402-3) 3.276 0.350-4.940 [facility] CenterB[facility] Natriuretic Rxminmz8317-31-39 14:41:00* Test Item Value Reference Range Interpretation Comments B-Type Natriuretic Peptide (test code = 35056-4) 47.7 0-100 [facility] CenterThyroid Stimulating Hormone (TSH) 2018-09-30 14:41:00* Test Item Value Reference Range Interpretation Comments Thyroid Stimulating Hormone (TSH) (test code = 43964-2) 3.276 0.350-4.940 [facility] CenterActivated Partial Thromboplast Time 2018-09-30 14:08:00* Test Item Value Reference Range Interpretation Comments Activated Partial Thromboplast Time (test code = 66118-1) 29.7 23.8-35.5 [facility] CenterActivated Partial Thromboplast Time 2018-09-30 14:08:00* Test Item Value Reference Range Interpretation Comments Activated Partial Thromboplast Time (test code = 70618-6) 29.7 23.8-35.5 [facility] CenterActivated Partial Thromboplast Time 2018-09-30 14:08:00* Test Item Value Reference Range Interpretation Comments Activated Partial Thromboplast Time (test code = 70222-3) 29.7 23.8-35.5 [facility] CenterProthrombin Xhor1155-41-62 14:07:00* Test Item Value Reference Range Interpretation Comments Prothrombin Time (test code = 5902-2) 12.0 11.9-14.5 [facility] CenterProthromb Time International Ratio 2018-09-30 14:07:00* Test Item Value Reference Range Interpretation Comments Prothromb Time International Ratio (test code = 6301-6) 0.84 Oral Anticoagulant Therapy INR Values:1. Low Intensity Therapy 1.5 - 2.02 . Moderate Intensity Therapy 2.0 - 3.03. High Intensity Therapy(1) 2.5 - 3. 54. High Intensity Therapy(2) 3.0 - 4.05. Panic Value INR > 5.0 [facility] CenterProthrombin Klew9838-52-50 14:07:00* Test Item Value Reference Range Interpretation Comments Prothrombin Time (test code = 5902-2) 12.0 11.9-14.5 [facility] CenterProthromb Time International Ratio 2018-09-30 14:07:00* Test Item Value Reference Range Interpretation Comments Prothromb Time International Ratio (test code = 6301-6) 0.84 Oral Anticoagulant Therapy INR Values:1. Low Intensity Therapy 1.5 - 2.02 . Moderate Intensity Therapy 2.0 - 3.03. High Intensity Therapy(1) 2.5 - 3. 54. High Intensity Therapy(2) 3.0 - 4.05. Panic Value INR > 5.0 [facility] CenterProthrombin Ivcg1545-54-25 14:07:00* Test Item Value Reference Range Interpretation Comments Prothrombin Time (test code = 5902-2) 12.0 11.9-14.5 [facility] CenterProthromb Time International Ratio 2018-09-30 14:07:00* Test Item Value Reference Range Interpretation Comments Prothromb Time International Ratio (test code = 6301-6) 0.84 Oral Anticoagulant Therapy INR Values:1. Low Intensity Therapy 1.5 - 2.02 . Moderate Intensity Therapy 2.0 - 3.03. High Intensity Therapy(1) 2.5 - 3. 54. High Intensity Therapy(2) 3.0 - 4.05. Panic Value INR > 5.0 [facility] CenterCHEST SINGLE (NOT PORTABLE)2018-09-30 13:20:00 [facility] [address] [place] [address] Patient Name: AWILDA ESCUDERO MR #: [id number] : 1955 Age/Sex: 63/F Req #: [id number] Adm Physician: Ordered by: EHSAN RIVERA NP Report #: [id number] Location: ER Room/Bed: Procedure: [id number] DX/ CHEST SINGLE (NOT PORTABLE) Exam Date: [...] SCAR on 1322 COPY TO: EHSAN RIVERA PECAN MALLOW DIPPER CT BRAIN UA8780-30-62 12:43:00 [place] [address] Patient Name: AWILDA ESCUDERO MR #: [id number] : 1955 Age/Sex: 63/F Req #: [id number] Adm Physician: Ordered by: EHSAN RIVERA PECAN MALLOW DIPPER Report #: [id number] Location: ER Room/Bed: Procedure: [id number] CT/ CT BRAIN WO Exam Date: 09/30/18 [...] on 09/30/18 1252 COPY TO: EHSAN RIVERA NP Bedside Glucose 2018-07-18 08:13:00* Test Item Value Reference Range Interpretation Comments Bedside Glucose (test code = 34681-9) 113 70-120 Meter ID: [id number] Charlton Medical CenterBedside Glucose 2018-07-18 08:13:00* Test Item Value Reference Range Interpretation Comments Bedside Glucose (test code = 37168-2) 113 70-120 Meter ID: [id number] [facility] Level 2018-07-15 06:34:00* Test Item Value Reference Range Interpretation Comments Magnesium Level (test code = 85324-6) 2.3 1.3-2.1 H [facility]2019-01-22 06:34:00* Test Item Value Reference Range Interpretation Comments Magnesium Level (test code = 25366-9) 2.3 1.3-2.1 [facility]2019-01-22 06:34:00* Test Item Value Reference Range Interpretation Comments Magnesium Level (test code = 36494-1) 2.3 1.3-2.1 [facility]2019-01-22 06:34:00* Test Item Value Reference Range Interpretation Comments Magnesium Level (test code = 62953-0) 2.3 1.3-2.1 [facility]2019-01-22 06:34:00* Test Item Value Reference Range Interpretation Comments Magnesium Level (test code = 32776-2) 2.3 1.3-2.1 [facility]2019-01-22 06:34:00* Test Item Value Reference Range Interpretation Comments Magnesium Level (test code = 53913-6) 2.3 1.3-2.1 [facility]2019-01-22 06:34:00* Test Item Value Reference Range Interpretation Comments Magnesium Level (test code = 22256-5) 2.3 1.3-2.1 H [facility]2019-01-22 05:06:00* Test Item Value Reference Range Interpretation Comments Sodium Level (test code = 2951-2) 136 136-145 [facility] Ixfby8325-07-93 05:06:00* Test Item Value Reference Range Interpretation Comments Potassium Level (test code = 2823-3) 3.5 3.5-5.1 [facility] CenterChloride Eshpz3411-70-99 05:06:00* Test Item Value Reference Range Interpretation Comments Chloride Level (test code = 2075-0) 112 98-107 H [facility] CenterCarbon Dioxide Hghut4148-46-73 05:06:00* Test Item Value Reference Range Interpretation Comments Carbon Dioxide Level (test code = 2028-9) 18 22-29 L [facility] CenterAnion Txc8136-89-31 05:06:00* Test Item Value Reference Range Interpretation Comments Anion Gap (test code = 47585-7) 9.5 8-16 [facility] CenterBlood Urea Heoxhbit7618-14-69 05:06:00* Test Item Value Reference Range Interpretation Comments Blood Urea Nitrogen (test code = 3094-0) 17 7-26 [facility] CenterCreatinine2019-01-22 05:06:00* Test Item Value Reference Range Interpretation Comments Creatinine (test code = 2160-0) 1.26 0.57-1.11 H [facility] CenterBUN/Creatinine Xjyvi0370-64-17 05:06:00* Test Item Value Reference Range Interpretation Comments BUN/Creatinine Ratio (test code = 3097-3) 13 6-25 [facility] CenterEstimat Glomerular Filtration Rate 2018-07-15 05:06:00* Test Item Value Reference Range Interpretation Comments Estimat Glomerular Filtration Rate (test code = 533290371) 43 >60 L Ranges were taken from the National Kidney Disease Education Program and the [facility] Foundation literature.Reference ranges:60 or greater: Eeewsp74-10 ( for 3 consecutive months): Chronic kidney disease 15 or less: Kidney failureMethodist Charlton Medical CenterGlucose Vqwba5567-09-00 05:06:00* Test Item Value Reference Range Interpretation Comments Glucose Level (test code = JCT9128) 94 74-118 [facility] CenterCalcium Kljav7810-46-64 05:06:00* Test Item Value Reference Range Interpretation Comments Calcium Level (test code = 70036-0) 7.7 8.4-10.2 L [facility]odium Jchrr8353-20-28 05:06:00* Test Item Value Reference Range Interpretation Comments Sodium Level (test code = 2951-2) 136 136-145 [facility] CenterPotassium Tdhxa6244-93-94 05:06:00* Test Item Value Reference Range Interpretation Comments Potassium Level (test code = 2823-3) 3.5 3.5-5.1 [facility] CenterChloride Ssmvm0300-91-28 05:06:00* Test Item Value Reference Range Interpretation Comments Chloride Level (test code = 2075-0) 112 98-107 H [facility] CenterCarbon Dioxide Nrmot7175-61-73 05:06:00* Test Item Value Reference Range Interpretation Comments Carbon Dioxide Level (test code = 2028-9) 18 22-29 L [facility] CenterAnion Nkb2185-42-21 05:06:00* Test Item Value Reference Range Interpretation Comments Anion Gap (test code = 15094-9) 9.5 8-16 [facility] CenterBlood Urea Ukpxbvei4274-66-58 05:06:00* Test Item Value Reference Range Interpretation Comments Blood Urea Nitrogen (test code = 3094-0) 17 7-26 [facility] CenterCreatinine2019-01-22 05:06:00* Test Item Value Reference Range Interpretation Comments Creatinine (test code = 2160-0) 1.26 0.57-1.11 H [facility] CenterBUN/Creatinine Sxgrw2969-66-54 05:06:00* Test Item Value Reference Range Interpretation Comments BUN/Creatinine Ratio (test code = 3097-3) 13 6-25 [facility] CenterEstimat Glomerular Filtration Rate 2018-07-15 05:06:00* Test Item Value Reference Range Interpretation Comments Estimat Glomerular Filtration Rate (test code = 655555125) 43 >60 L Ranges were taken from the National Kidney Disease Education Program and the [facility] Foundation literature.Reference ranges:60 or greater: Pnsyfl72-86 ( for 3 consecutive months): Chronic kidney disease 15 or less: Kidney failureMethodist Charlton Medical CenterGlucose Ramxb3363-37-80 05:06:00* Test Item Value Reference Range Interpretation Comments Glucose Level (test code = NOD9030) 94 74-118 [facility] CenterCalcium Inirt2974-23-87 05:06:00* Test Item Value Reference Range Interpretation Comments Calcium Level (test code = 66347-6) 7.7 8.4-10.2 L [facility] CenterWhite Blood Yjoab4698-44-95 04:48:00* Test Item Value Reference Range Interpretation Comments White Blood Count (test code = 6690-2) 11.64 4.8-10.8 H [facility] CenterRed Blood Ydiru0518-66-06 04:48:00* Test Item Value Reference Range Interpretation Comments Red Blood Count (test code = 789-8) 5.11 3.6-5.1 H [facility] CenterHemoglobin2019-01-22 04:48:00* Test Item Value Reference Range Interpretation Comments Hemoglobin (test code = 49488-0) 13.6 12.0-16.0 [facility] CenterHematocrit2019-01-22 04:48:00* Test Item Value Reference Range Interpretation Comments Hematocrit (test code = 4544-3) 41.2 34.2-44.1 [facility] CenterMean Corpuscular Oacfam7076-08-45 04:48:00* Test Item Value Reference Range Interpretation Comments Mean Corpuscular Volume (test code = 787-2) 80.6 81-99 L [facility] CenterMean Corpuscular Tvioekwqvo2200-29-60 04:48:00* Test Item Value Reference Range Interpretation Comments Mean Corpuscular Hemoglobin (test code = 785-6) 26.6 28-32 L [facility] CenterMean Corpuscular Hemoglobin Concent 2018-07-15 04:48:00* Test Item Value Reference Range Interpretation Comments Mean Corpuscular Hemoglobin Concent (test code = 786-4) 33.0 31-35 [facility] CenterRed Cell Distribution Zvykk5418-52-54 04:48:00* Test Item Value Reference Range Interpretation Comments Red Cell Distribution Width (test code = 60322-1) 13.7 11.7 -14.4 [facility] CenterPlatelet Dllww0216-44-33 04:48:00* Test Item Value Reference Range Interpretation Comments Platelet Count (test code = 777-3) 395 140-360 H [facility] CenterNeutrophils (%) (Auto)2018-07-15 04:48:00 * Test Item Value Reference Range Interpretation Comments Neutrophils (%) (Auto) (test code = 72629-0) 60.0 38.7-80.0 [facility] CenterLymphocytes (%) (Auto)2018-07-15 04:48:00 * Test Item Value Reference Range Interpretation Comments Lymphocytes (%) (Auto) (test code = 736-9) 28.4 18.0-39.1 [facility] CenterMonocytes (%) (Auto)2018-07-15 04:48:00* Test Item Value Reference Range Interpretation Comments Monocytes (%) (Auto) (test code = 5905-5) 4.9 4.4-11.3 [facility] CenterEosinophils (%) (Auto)2018-07-15 04:48:00 * Test Item Value Reference Range Interpretation Comments Eosinophils (%) (Auto) (test code = 713-8) 5.2 0.0-6.0 [facility] CenterBasophils (%) (Auto)2018-07-15 04:48:00* Test Item Value Reference Range Interpretation Comments Basophils (%) (Auto) (test code = 706-2) 1.1 0.0-1.0 H [facility] CenterIM GRANULOCYTES %2018-07-15 04:48:00* Test Item Value Reference Range Interpretation Comments IM GRANULOCYTES % (test code = IM GRANULOCYTES %) 0.4 0.0- 1.0 [facility] CenterNeutrophils # (Auto)2018-07-15 04:48:00* Test Item Value Reference Range Interpretation Comments Neutrophils # (Auto) (test code = 751-8) 7.0 2.1-6.9 H [facility] CenterLymphocytes # (Auto)2018-07-15 04:48:00* Test Item Value Reference Range Interpretation Comments Lymphocytes # (Auto) (test code = 98951-4) 3.3 1.0-3.2 H [facility] CenterMonocytes # (Auto)2018-07-15 04:48:00* Test Item Value Reference Range Interpretation Comments Monocytes # (Auto) (test code = 742-7) 0.6 0.2-0.8 [facility] CenterEosinophils # (Auto)2018-07-15 04:48:00* Test Item Value Reference Range Interpretation Comments Eosinophils # (Auto) (test code = 711-2) 0.6 0.0-0.4 H [facility] CenterBasophils # (Auto)2018-07-15 04:48:00* Test Item Value Reference Range Interpretation Comments Basophils # (Auto) (test code = 704-7) 0.1 0.0-0.1 [facility] CenterAbsolute Immature Granulocyte (auto 2018-07-15 04:48:00* Test Item Value Reference Range Interpretation Comments Absolute Immature Granulocyte (auto (jake t code = Absolute Immature Granulocyte (auto) 0.05 0-0.1 [facility] CenterWhite Blood Oiiop0990-61-59 04:48:00* Test Item Value Reference Range Interpretation Comments White Blood Count (test code = 6690-2) 11.64 4.8-10.8 H [facility] CenterRed Blood Jhuzo3231-62-49 04:48:00* Test Item Value Reference Range Interpretation Comments Red Blood Count (test code = 789-8) 5.11 3.6-5.1 H [facility] CenterHemoglobin2019-01-22 04:48:00* Test Item Value Reference Range Interpretation Comments Hemoglobin (test code = 47446-5) 13.6 12.0-16.0 [facility] CenterHematocrit2019-01-22 04:48:00* Test Item Value Reference Range Interpretation Comments Hematocrit (test code = 4544-3) 41.2 34.2-44.1 [facility] CenterMean Corpuscular Jqttlk2175-55-15 04:48:00* Test Item Value Reference Range Interpretation Comments Mean Corpuscular Volume (test code = 787-2) 80.6 81-99 L [facility] CenterMean Corpuscular Rqbbohamso1362-72-91 04:48:00* Test Item Value Reference Range Interpretation Comments Mean Corpuscular Hemoglobin (test code = 785-6) 26.6 28-32 L [facility] CenterMean Corpuscular Hemoglobin Concent 2018-07-15 04:48:00* Test Item Value Reference Range Interpretation Comments Mean Corpuscular Hemoglobin Concent (test code = 786-4) 33.0 31-35 [facility] CenterRed Cell Distribution Wzoxj6238-42-59 04:48:00* Test Item Value Reference Range Interpretation Comments Red Cell Distribution Width (test code = 65621-6) 13.7 11.7 -14.4 [facility] CenterPlatelet Himmw5593-95-25 04:48:00* Test Item Value Reference Range Interpretation Comments Platelet Count (test code = 777-3) 395 140-360 H [facility] CenterNeutrophils (%) (Auto)2018-07-15 04:48:00 * Test Item Value Reference Range Interpretation Comments Neutrophils (%) (Auto) (test code = 69371-8) 60.0 38.7-80.0 [facility] CenterLymphocytes (%) (Auto)2018-07-15 04:48:00 * Test Item Value Reference Range Interpretation Comments Lymphocytes (%) (Auto) (test code = 736-9) 28.4 18.0-39.1 [facility] CenterMonocytes (%) (Auto)2018-07-15 04:48:00* Test Item Value Reference Range Interpretation Comments Monocytes (%) (Auto) (test code = 5905-5) 4.9 4.4-11.3 [facility] CenterEosinophils (%) (Auto)2018-07-15 04:48:00 * Test Item Value Reference Range Interpretation Comments Eosinophils (%) (Auto) (test code = 713-8) 5.2 0.0-6.0 [facility] CenterBasophils (%) (Auto)2018-07-15 04:48:00* Test Item Value Reference Range Interpretation Comments Basophils (%) (Auto) (test code = 706-2) 1.1 0.0-1.0 H [facility] CenterIM GRANULOCYTES %2018-07-15 04:48:00* Test Item Value Reference Range Interpretation Comments IM GRANULOCYTES % (test code = IM GRANULOCYTES %) 0.4 0.0- 1.0 [facility] CenterNeutrophils # (Auto)2018-07-15 04:48:00* Test Item Value Reference Range Interpretation Comments Neutrophils # (Auto) (test code = 751-8) 7.0 2.1-6.9 H [facility] CenterLymphocytes # (Auto)2018-07-15 04:48:00* Test Item Value Reference Range Interpretation Comments Lymphocytes # (Auto) (test code = 87983-6) 3.3 1.0-3.2 H [facility] CenterMonocytes # (Auto)2018-07-15 04:48:00* Test Item Value Reference Range Interpretation Comments Monocytes # (Auto) (test code = 742-7) 0.6 0.2-0.8 [facility] CenterEosinophils # (Auto)2018-07-15 04:48:00* Test Item Value Reference Range Interpretation Comments Eosinophils # (Auto) (test code = 711-2) 0.6 0.0-0.4 H [facility] CenterBasophils # (Auto)2018-07-15 04:48:00* Test Item Value Reference Range Interpretation Comments Basophils # (Auto) (test code = 704-7) 0.1 0.0-0.1 [facility] CenterAbsolute Immature Granulocyte (auto 2018-07-15 04:48:00* Test Item Value Reference Range Interpretation Comments Absolute Immature Granulocyte (auto (jake t code = Absolute Immature Granulocyte (auto) 0.05 0-0.1 [facility] ResourcesMODIFIED BA. TPPADSU1272-66-64 14:34:00 [place] [address] Patient Name: AWILDA ESCUDERO MR #: [id number] : 1955 Age/Sex: 63/F Req #: [id number] Adm Physician: ZAINA GORDON MD Ordered by: ZAINA GORDON MD Report #: [id number] Location: ICU Room/Bed: ICU [facility] Procedure: [id number] DX /MODIFIED BA. SWALLOW Exam Date: 07/14/18 [...] 2:35 PM Dictated By: RONALD HILLS MD [facility] y Signed By: RONALD HILLS MD on 07/14/18 1430 Transcribed By: SCAR on 07/14 8249 COPY TO: ZAINA GORDON MD MRA HEAD NR6844-67-22 13:17:00 [facility] [address] [place] [address] Patient Name: AWILDA ESCUDERO MR #: [id number] : 1955 Age/Sex: 63/F Req #: [id number] Adm Physician: ZAINA GORDON MD Ordered by: ZAINA GORDON MD Report #: [id number] Location: ICU Room/Bed: ICU [facility] Procedure: [id number] MR I/MRA HEAD WO Exam Date: Exam Time: REPORT STATUS: Signed MRA NECK WO, MRA HEAD WO HISTORY: Weakness, right-sided facial droop COMPARISON: Concurrent MRI of the brain TECHNIQUE: Axial 2D cervical, and axial 3D intracranial fkld-ou-mdmohs MRA images were obtained without contrast. Maximum intensity pr ojection and coronal/sagittal reformatted images were created. If present, an y cervical carotid stenosis will be measured as a percentage relative to the n ative artery distal to the stenosis. Intracranial MRA source axial images and MIPS were reviewed on Web [employer] system. FINDINGS: CERVICAL MRA: Motion and noise [...] MD on 07/14/181323 Transcribed By: SCAR on 4 COPY TO: ZAINA GORDON MD MRA NECK [id number] 13:17:00 [place] [address] Patient Name: AWILDA ESCUDERO MR #: [id number] : 1955 Age/Sex: 63/F Req #: [id number] Adm Physician: ZAINA GORDON MD Ordered by: ZAINA GORDON MD Report #: [id number] Location: ICU Room/Bed: ICU [facility] Procedure: [id number] MR I/MRA NECK WO Exam Date: Exam Time: REPORT STATUS: Signed MRA NECK WO, MRA HEAD WO HISTORY: Weakness, right-sided facial droop COMPARISON: Concurrent MRI of the brain TECHNIQUE: Axial 2D cervical, and axial 3D intracranial rlly-wj-haibxw MRA images were obtained without contrast. Maximum intensity pr ojection and coronal/sagittal reformatted images were created. If present, an y cervical carotid stenosis will be measured as a percentage relative to the n ative artery distal to the stenosis. Intracranial MRA source axial images and MIPS were reviewed on [employer] system. FINDINGS: CERVICAL MRA: Motion and noise [...] Transcribed By: SCAR on 1323 COPY TO: ZAINA GORDON MD MRI BRAIN QK0301-37-94 13:07:00 [place] [address] Patient Name: AWILDA ESCUDERO MR #: [id number] : 1955 Age/Sex: 63/F Req #: [id number] Adm Physician: ZAINA GORDON MD Ordered by: HOLA MUNOZ M.D. Report #: [id number] Location: ICU Room/Bed: ICU [facility] Procedure: [id number] MRI/MRI BRAIN WO Exam [...] striatocapsular region. 2. 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 3. 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 Signed by: Dr. Spencer Sanches M.D. on 07/14/2018 1:17 PM Dictated By: SPENCER SANCHES MD 1317 Transcribed By: SCAR on 07/14/18 1317 COPY TO: HOLA ROSAS MD Thyroid Stimulating Hormone (TSH)2018-07-14 05:43:00 * Test Item Value Reference Range Interpretation Comments Thyroid Stimulating Hormone (TSH) (test code = 76516-6) 3.263 0.350-4.940 [facility] CenterThyroid Stimulating Hormone (TSH) 2018-07-14 05:43:00* Test Item Value Reference Range Interpretation Comments Thyroid Stimulating Hormone (TSH) (test code = 18518-1) 3.263 0.350-4.940 [facility] [facility] Mlfpjvkjv0314-50-04 05:29:00* Test Item Value Reference Range Interpretation Comments Total Bilirubin (test code = 1975-2) 0.5 0.2-1.2 [facility] CenterAspartate Amino Transf (AST/SGOT) 2018-07-14 05:29:00* Test Item Value Reference Range Interpretation Comments Aspartate Amino Transf (AST/SGOT) (test code = Aspartate Amino Transf (AST/SGOT)) 10 5-34 [facility] CenterAlanine Aminotransferase (ALT/SGPT) 2018-07-14 05:29:00* Test Item Value Reference Range Interpretation Comments Alanine Aminotransferase (ALT/SGPT) (test code = 1742-6) 8 0-55 [facility] CenterTotal Piatzmv6310-98-35 05:29:00* Test Item Value Reference Range Interpretation Comments Total Protein (test code = 2885-2) 4.5 6.5-8.1 L [facility] CenterAlbumin2019-01-21 05:29:00* Test Item Value Reference Range Interpretation Comments Albumin (test code = 1751-7) 1.4 3.5-5.0 L [facility] CenterGlobulin2019-01-21 05:29:00* Test Item Value Reference Range Interpretation Comments Globulin (test code = 28696-8) 3.1 2.3-3.5 [facility] CenterAlbumin/Globulin Rkkox1237-33-55 05:29:00 * Test Item Value Reference Range Interpretation Comments Albumin/Globulin Ratio (test code = 1759-0) 0.5 0.8-2.0 L [facility] CenterAlkaline Wpbqxhrnepa6917-25-58 05:29:00* Test Item Value Reference Range Interpretation Comments Alkaline Phosphatase (test code = 6768-6) 55 40-150 [facility] CenterTriglycerides Iramn8178-23-60 05:29:00* Test Item Value Reference Range Interpretation Comments Triglycerides Level (test code = 2571-8) 257 0-149 H [facility] CenterCholesterol Zhjkk8439-38-17 05:29:00* Test Item Value Reference Range Interpretation Comments Cholesterol Level (test code = 2093-3) 344 0-199 H Less than 200 mg/dL Low Rfdr228 - 239 mg/dL Borderline Dvkj485 m g/dl and greater High Risk [facility] CenterLDL Csihsmojjrn7611-81-34 05:29:00* Test Item Value Reference Range Interpretation Comments LDL Cholesterol (test code = 2089-1) 259 60-130 H [facility] CenterHDL Cbsaanottyw8592-06-14 05:29:00* Test Item Value Reference Range Interpretation Comments HDL Cholesterol (test code = 2085-9) 34 40-60 L [facility] CenterCholesterol/HDL Snwwi2658-51-06 05:29:00 * Test Item Value Reference Range Interpretation Comments Cholesterol/HDL Ratio (test code = 9830-1) 10.1 3.0-3.6 H [facility] CenterTotal Bqmyorupv5031-99-47 05:29:00* Test Item Value Reference Range Interpretation Comments Total Bilirubin (test code = 1975-2) 0.5 0.2-1.2 [facility] CenterAspartate Amino Transf (AST/SGOT) 2018-07-14 05:29:00* Test Item Value Reference Range Interpretation Comments Aspartate Amino Transf (AST/SGOT) (test code = Aspartate Amino Transf (AST/SGOT)) 10 5-34 [facility] CenterAlanine Aminotransferase (ALT/SGPT) 2018-07-14 05:29:00* Test Item Value Reference Range Interpretation Comments Alanine Aminotransferase (ALT/SGPT) (test code = 1742-6) 8 0-55 [facility] Cdtggye4653-60-65 05:29:00* Test Item Value Reference Range Interpretation Comments Total Protein (test code = 2885-2) 4.5 6.5-8.1 L [facility] CenterAlbumin2019-01-21 05:29:00* Test Item Value Reference Range Interpretation Comments Albumin (test code = 1751-7) 1.4 3.5-5.0 L [facility] CenterGlobulin2019-01-21 05:29:00* Test Item Value Reference Range Interpretation Comments Globulin (test code = 89499-2) 3.1 2.3-3.5 [facility] CenterAlbumin/Globulin Qjhyf7101-27-45 05:29:00 * Test Item Value Reference Range Interpretation Comments Albumin/Globulin Ratio (test code = 1759-0) 0.5 0.8-2.0 L [facility] CenterAlkaline Usshrdierwy1960-52-88 05:29:00* Test Item Value Reference Range Interpretation Comments Alkaline Phosphatase (test code = 6768-6) 55 40-150 [facility] CenterTriglycerides Axqox0428-18-67 05:29:00* Test Item Value Reference Range Interpretation Comments Triglycerides Level (test code = 2571-8) 257 0-149 H [facility] CenterCholesterol Isdvp0776-12-80 05:29:00* Test Item Value Reference Range Interpretation Comments Cholesterol Level (test code = 2093-3) 344 0-199 H Less than 200 mg/dL Low Jdxe923 - 239 mg/dL Borderline Ziyg916 m g/dl and greater High Risk [facility] CenterLDL Abqfwokjkxy2791-86-35 05:29:00* Test Item Value Reference Range Interpretation Comments LDL Cholesterol (test code = 2089-1) 259 60-130 [facility] Wbejlldrrbp6274-05-49 05:29:00* Test Item Value Reference Range Interpretation Comments HDL Cholesterol (test code = 2085-9) 34 40-60 L [facility] CenterCholesterol/HDL Gtadl4079-10-34 05:29:00 * Test Item Value Reference Range Interpretation Comments Cholesterol/HDL Ratio (test code = 9830-1) 10.1 3.0-3.6 H [facility] CenterTriglycerides Evfxy5782-49-23 05:29:00* Test Item Value Reference Range Interpretation Comments Triglycerides Level (test code = 2571-8) 257 0-149 H [facility] CenterCholesterol Efkms4451-98-03 05:29:00* Test Item Value Reference Range Interpretation Comments Cholesterol Level (test code = 2093-3) 344 0-199 H Less than 200 mg/dL Low Cjaw086 - 239 mg/dL Borderline Qhaa534 m g/dl and greater High Risk [facility] CenterLDL Unkuylbtuac6799-06-76 05:29:00* Test Item Value Reference Range Interpretation Comments LDL Cholesterol (test code = 2089-1) 259 60-130 H [facility] Szsfooucful1596-43-21 05:29:00* Test Item Value Reference Range Interpretation Comments HDL Cholesterol (test code = 2085-9) 34 40-60 L [facility] CenterCholesterol/HDL Jnpgf5196-05-59 05:29:00 * Test Item Value Reference Range Interpretation Comments Cholesterol/HDL Ratio (test code = 9830-1) 10.1 3.0-3.6 H [facility] CenterTriglycerides Ycqdn0353-21-30 05:29:00* Test Item Value Reference Range Interpretation Comments Triglycerides Level (test code = 2571-8) 257 0-149 H [facility] CenterCholesterol Dxnob1600-44-93 05:29:00* Test Item Value Reference Range Interpretation Comments Cholesterol Level (test code = 2093-3) 344 0-199 H Less than 200 mg/dL Low Beal238 - 239 mg/dL Borderline Psbo358 m g/dl and greater High Risk [facility] CenterLDL Xszwdlbkycn6635-69-03 05:29:00* Test Item Value Reference Range Interpretation Comments LDL Cholesterol (test code = 2089-1) 259 60-130 H [facility] CenterHDL Sbjfeegtduz8915-70-31 05:29:00* Test Item Value Reference Range Interpretation Comments HDL Cholesterol (test code = 2085-9) 34 40-60 L [facility] CenterCholesterol/HDL Hrchq9767-49-77 05:29:00 * Test Item Value Reference Range Interpretation Comments Cholesterol/HDL Ratio (test code = 9830-1) 10.1 3.0-3.6 H [facility] CenterTriglycerides Wvxhy0842-34-34 05:29:00* Test Item Value Reference Range Interpretation Comments Triglycerides Level (test code = 2571-8) 257 0-149 H [facility] CenterCholesterol Zkhfd0921-14-66 05:29:00* Test Item Value Reference Range Interpretation Comments Cholesterol Level (test code = 2093-3) 344 0-199 H Less than 200 mg/dL Low Yewn689 - 239 mg/dL Borderline Pbsx151 m g/dl and greater High Risk [facility] CenterLDL Bprgixjutsx4079-71-04 05:29:00* Test Item Value Reference Range Interpretation Comments LDL Cholesterol (test code = 2089-1) 259 60-130 H [facility] CenterHDL Rhctlsgmmoz7585-38-84 05:29:00* Test Item Value Reference Range Interpretation Comments HDL Cholesterol (test code = 2085-9) 34 40-60 L [facility] CenterCholesterol/HDL Leoxf3450-74-91 05:29:00 * Test Item Value Reference Range Interpretation Comments Cholesterol/HDL Ratio (test code = 9830-1) 10.1 3.0-3.6 H [facility] CenterCT BRAIN KX2393-36-12 17:58:00 [place] [address] [place] [address] Patient Name: AWILDA ESCUDERO MR #: [id number] : 1955 Age/Sex: 63/F Req #: [id number] Adm Physician: ZAINA GORDON MD Ordered by: HOLA MUNOZ M.D. Report #: [id number] Location: ICU Room/Bed: ICU [facility] Procedure: 0120-[address]/CT BRAIN WO Exam [...] 07/13/181950 COPY TO: HOLA MUNOZ MD Troponin X0672-32-42 15:22:00* Test Item Value Reference Range Interpretation Comments Troponin I (test code = FES4126) 0.019 0-0.300 [facility] CenterTroponin I4228-81-32 15:22:00* Test Item Value Reference Range Interpretation Comments Troponin I (test code = VLK2770) 0.019 0-0.300 [facility] CenterCreatine Kinase XZ9435-44-47 14:19:00* Test Item Value Reference Range Interpretation Comments Creatine Kinase MB (test code = 45981-4) 1.00 0-5.0 [facility] CenterCreatine Kinase YV3323-83-56 14:19:00* Test Item Value Reference Range Interpretation Comments Creatine Kinase MB (test code = 31570-8) 1.00 0-5.0 [facility] CenterCreatine Jwjdne2053-78-91 14:10:00* Test Item Value Reference Range Interpretation Comments Creatine Kinase (test code = 2157-6) 55 29-168 [facility] CenterCreatine Cfwgkz1996-08-29 14:10:00* Test Item Value Reference Range Interpretation Comments Creatine Kinase (test code = 2157-6) 55 29-168 [facility] CenterFr Thyroxine Qtryf6180-71-43 08:42:00* Test Item Value Reference Range Interpretation Comments Free Thyroxine Index (test code = 80489-3) 1.9343 1.4-3.8 [facility] CenterThyroxine (T4)2018-07-13 08:42:00* Test Item Value Reference Range Interpretation Comments Thyroxine (T4) (test code = 3026-2) 5.75 4.5-10.9 Our current method for Total T4 is not recommended for use as the only marker fo r evaluating patients for thyroid disorders.[facility] CenterTriiodothyronine (T3) Pmtbyp2683-11-71 08:42:00* Test Item Value Reference Range Interpretation Comments Triiodothyronine (T3) Uptake (test code = 3050-2) 33.64 22.5 -37.0 [facility] Thyroxine Itqmr5454-55-82 08:42:00* Test Item Value Reference Range Interpretation Comments Free Thyroxine Index (test code = 96701-8) 1.9343 1.4-3.8 [facility] CenterThyroxine (T4)2018-07-13 08:42:00* Test Item Value Reference Range Interpretation Comments Thyroxine (T4) (test code = 3026-2) 5.75 4.5-10.9 Our current method for Total T4 is not recommended for use as the only marker fo r evaluating patients for thyroid disorders.[facility] CenterTriiodothyronine (T3) Ktcpol2314-30-94 08:42:00* Test Item Value Reference Range Interpretation Comments Triiodothyronine (T3) Uptake (test code = 3050-2) 33.64 22.5 -37.0 [facility] Thyroxine Oijwo6511-72-86 08:42:00* Test Item Value Reference Range Interpretation Comments Free Thyroxine Index (test code = 33610-8) 1.9343 1.4-3.8 [facility] CenterThyroxine (T4)2018-07-13 08:42:00* Test Item Value Reference Range Interpretation Comments Thyroxine (T4) (test code = 3026-2) 5.75 4.5-10.9 Our current method for Total T4 is not recommended for use as the only marker fo r evaluating patients for thyroid disorders.[facility] CenterTriiodothyronine (T3) Fplwyi9300-23-07 08:42:00* Test Item Value Reference Range Interpretation Comments Triiodothyronine (T3) Uptake (test code = 3050-2) 33.64 22.5 -37.0 [facility] Thyroxine Gtvcz0380-79-16 08:42:00* Test Item Value Reference Range Interpretation Comments Free Thyroxine Index (test code = 27160-8) 1.9343 1.4-3.8 [facility] CenterThyroxine (T4)2018-07-13 08:42:00* Test Item Value Reference Range Interpretation Comments Thyroxine (T4) (test code = 3026-2) 5.75 4.5-10.9 Our current method for Total T4 is not recommended for use as the only marker fo r evaluating patients for thyroid disorders.[facility] CenterTriiodothyronine (T3) Jrdlxu6302-77-90 08:42:00* Test Item Value Reference Range Interpretation Comments Triiodothyronine (T3) Uptake (test code = 3050-2) 33.64 22.5 -37.0 [facility] Thyroxine Tmtji7938-60-59 08:42:00* Test Item Value Reference Range Interpretation Comments Free Thyroxine Index (test code = 99198-3) 1.9343 1.4-3.8 [facility] CenterThyroxine (T4)2018-07-13 08:42:00* Test Item Value Reference Range Interpretation Comments Thyroxine (T4) (test code = 3026-2) 5.75 4.5-10.9 Our current method for Total T4 is not recommended for use as the only marker fo r evaluating patients for thyroid disorders.[facility] CenterTriiodothyronine (T3) Agtxry8284-84-45 08:42:00* Test Item Value Reference Range Interpretation Comments Triiodothyronine (T3) Uptake (test code = 3050-2) 33.64 22.5 -37.0 [facility] CenterFree Thyroxine Egrbl9941-84-19 08:42:00* Test Item Value Reference Range Interpretation Comments Free Thyroxine Index (test code = 16252-3) 1.9343 1.4-3.8 [facility] CenterThyroxine (T4)2018-07-13 08:42:00* Test Item Value Reference Range Interpretation Comments Thyroxine (T4) (test code = 3026-2) 5.75 4.5-10.9 Our current method for Total T4 is not recommended for use as the only marker fo r evaluating patients for thyroid disorders.[facility] CenterTriiodothyronine (T3) Kvhnlx1821-80-09 08:42:00* Test Item Value Reference Range Interpretation Comments Triiodothyronine (T3) Uptake (test code = 3050-2) 33.64 22.5 -37.0 [facility] CenterFr Thyroxine Pzqii9167-45-84 08:42:00* Test Item Value Reference Range Interpretation Comments Free Thyroxine Index (test code = 88039-7) 1.9343 1.4-3.8 [facility] CenterThyroxine (T4)2018-07-13 08:42:00* Test Item Value Reference Range Interpretation Comments Thyroxine (T4) (test code = 3026-2) 5.75 4.5-10.9 Our current method for Total T4 is not recommended for use as the only marker fo r evaluating patients for thyroid disorders.[facility] CenterTriiodothyronine (T3) Hvgxll5695-97-47 08:42:00* Test Item Value Reference Range Interpretation Comments Triiodothyronine (T3) Uptake (test code = 3050-2) 33.64 22.5 -37.0 [facility] CenterHemoglobin A1c Dmhgxzb4398-58-37 08:18:00 * Test Item Value Reference Range Interpretation Comments Hemoglobin A1c Percent (test code = Hemoglobin A1c Percent) 8.8 4.0-7.0 H [facility] CenterHemoglobin A1c Sslhyjt5157-75-21 08:18:00 * Test Item Value Reference Range Interpretation Comments Hemoglobin A1c Percent (test code = Hemoglobin A1c Percent) 8.8 4.0-7.0 H [facility] CenterHemoglobin A1c Bvvlldm5232-85-52 08:18:00 * Test Item Value Reference Range Interpretation Comments Hemoglobin A1c Percent (test code = Hemoglobin A1c Percent) 8.8 4.0-7.0 H [facility] CenterHemoglobin A1c Jsqgrts0940-35-18 08:18:00 * Test Item Value Reference Range Interpretation Comments Hemoglobin A1c Percent (test code = Hemoglobin A1c Percent) 8.8 4.0-7.0 H [facility] CenterHemoglobin A1c Igobvld0472-50-13 08:18:00 * Test Item Value Reference Range Interpretation Comments Hemoglobin A1c Percent (test code = Hemoglobin A1c Percent) 8.8 4.0-7.0 H [facility] CenterProthrombin Qbsp4253-90-58 04:59:00* Test Item Value Reference Range Interpretation Comments Prothrombin Time (test code = 5902-2) 13.5 11.9-14.5 [facility] CenterProthromb Time International Ratio 2018-07-13 04:59:00* Test Item Value Reference Range Interpretation Comments Prothromb Time International Ratio (test code = 6301-6) 0.95 Oral Anticoagulant Therapy INR Values:1. Low Intensity Therapy 1.5 - 2.02 . Moderate Intensity Therapy 2.0 - 3.03. High Intensity Therapy(1) 2.5 - 3. 54. High Intensity Therapy(2) 3.0 - 4.05. Panic Value INR > 5.0 [facility] CenterActivated Partial Thromboplast Time 2018-07-13 04:59:00* Test Item Value Reference Range Interpretation Comments Activated Partial Thromboplast Time (test code = 44216-6) 29.4 23.8-35.5 [facility] CenterProthrombin Uewv0521-71-24 04:59:00* Test Item Value Reference Range Interpretation Comments Prothrombin Time (test code = 5902-2) 13.5 11.9-14.5 [facility] CenterProthromb Time International Ratio 2018-07-13 04:59:00* Test Item Value Reference Range Interpretation Comments Prothromb Time International Ratio (test code = 6301-6) 0.95 Oral Anticoagulant Therapy INR Values:1. Low Intensity Therapy 1.5 - 2.02 . Moderate Intensity Therapy 2.0 - 3.03. High Intensity Therapy(1) 2.5 - 3. 54. High Intensity Therapy(2) 3.0 - 4.05. Panic Value INR > 5.0 [facility] CenterActivated Partial Thromboplast Time 2018-07-13 04:59:00* Test Item Value Reference Range Interpretation Comments Activated Partial Thromboplast Time (test code = 56118-3) 29.4 23.8-35.5 [facility] CenterB-Type Natriuretic Sppxenf8444-91-97 16:24:00* Test Item Value Reference Range Interpretation Comments B-Type Natriuretic Peptide (test code = 21196-7) 192.7 0-100 H [facility] CenterB-Type Natriuretic Ntbvsxu0688-26-50 16:24:00* Test Item Value Reference Range Interpretation Comments B-Type Natriuretic Peptide (test code = 98060-9) 192.7 0-100 H [facility] CenterCHEST SINGLE (PORTABLE)2018-07-12 16:12:00 [place] [address] Patient Name: AWILDA ESCUDERO MR #: [id number] : 1955 Age/Sex: 63/F Req #: [id number] Adm Physician: Ordered by: EHSAN RIVERA PECAN MALLOW DIPPER Report #: [id number] Location: Room/Bed: Procedure: 3746-3200 DX/ CHEST SINGLE (PORTABLE) Exam Date: 07/12/18 [...] SCAR on 07/12/181611 COPY TO: EHSAN RIVERA NP CT BRAIN OH9233-50-19 15:25:00 [place] [address] Patient Name: AWILDA ESCUDERO MR #: [id number] : 1955 Age/Sex: 63/F Req #: [id number] Adm Physician: Ordered by: JANIE RIVER MD Report #: [id number] Location: ER Room/Bed: Procedure: 2750-2727 CT/ CT BRAIN WO Exam Date: 07/12/18 [...] 1529 COPY TO: FRED RIVER MD CHEM BAYPD0319-11-15 00:50:0099[facility]annCHEM PANEL 2014-03-06 00:50:000.9[facility]annCHEM ADFEW0230-56-86 00:50:0013.0[facility]annCHEM LNEEH3814-50-23 00:50:0018[facility]annCHEM LREBI8040-33-26 00:50:0028[facility]annCHEM FBGQG5523-58-98 00:50:0018[facility]annCHEM CRPXY6775-02-80 00:50:74853Jirytkek HermannCHEM ECUBF8489-97-24 00:50:004.0 [facility]annCHEM PMTKX3114-06-62 00:50:90780Rniwfaym HermannCHEM PANEL 2014-03-06 00:50:000.6[facility]annCHEM FWOKC5506-32-06 00:50:81973Cixkceyk HermannCHEM EYXGW3154-36-78 00:50:35817Dzgpozaj HermannCHEM SNNNV8787-06-87 00:50:0011[facility]annCHEM CKOJO3273-30-51 00:50:003.6[facility]annCHEM MDGPN8727-02-40 00:50:008.0[facility]annCHEM ZQBEV7010-31-52 00:50:009.1 [facility]annCHEM RVHMC6925-10-03 00:50:0025[facility]annCHEM PANEL 2014-03-06 00:50:000.8[facility]annCHEM LDLAG3881-14-58 00:50:004.4[facility] KzrintkOHHNXDOYGI6894-45-85 00:50:0060.9[facility] BrgugwgOZXTOUZFRO6783-88-41 00:50:001.1[facility] OgscgmvCJEEKESPEM4521-16-19 00:50:001.2[facility] JSIJLWLYHH4740-38-00 00:50:004.4[facility] RkepatmWYKYCORAVS0586-49-75 00:50:00 32.4[facility] DtexuywYOYPRFMTPC2154-84-70 00:50:000.1[facility] HermannHEMATOLOGY 2014-03-06 00:50:000.5[facility] QvghgwnWLTUMVGFYL5393-04-24 00:50:003.5[facility] FbqojfdVXJFWOIUUO6424-94-36 00:50:006.5[facility] GcuqylqIMEDUUSWMS2791-88-95 00:50:000.1[facility] BvksciwIJUBMEAVPK7508-06-27 00:50:0013.0[facility] MYZJNMBXCH3638-03-52 00:50:0033.4[facility] RkswnxjBGNWLDXRYJ3225-42-35 00:50:00* Test Item Value Reference Range Interpretation Comments MCH (test code = MCH) 28.3 pg 27.0-31.0 Memorial GpbmznvOENLAJCQRY7195-65-24 00:50:0084.7[facility]annHEMATOLOGY 2014-03-06 00:50:008.7[facility] UkmqpkwWTACTNVOQZ1095-39-17 00:50:15531Rmvccogg AnxamokLXZYNVBEZQ3476-26-47 00:50:0010.7[facility] MhouempQNXYTGRPSN4121-86-40 00:50:0049.5[facility] LqkmxytKLVWHYHNNI3852-16-23 00:50:0016.5[facility] CHSKGIKBTP5090-81-96 00:50:005.84[facility]annURINE AND NBZNB1950-12-28 05:30:00Small *ABN*(03/05/14 12:30 AM)[facility] AND ZSUWR1784-33-07 05:30:00Negative (03/05/14 12:30 AM)[facility] URTTM3214-37-11 05:30:00Marked *ABN*(03/05/14 12:30 AM)[facility] AND PJUGW3331-22-20 05:30:001.032[facility]annURINE AND COIYH0855-39-79 05:30:00Yellow *NA*(03/05/14 12:30 AM)[facility] BLSLY0200-62-30 05:30:29620 [facility] AND MXARS0031-66-69 05:30:0015[facility]annUR[facility] AND KILUT8230-92-91 05:30:00Large *ABN*(03/05/14 12:30 AM)[facility] AND IVNQL9703-93-08 05:30:00Negative *NA*(03/05/14 12:30 AM)[facility] AND ZMPDR1771-33-36 05:30:005.0[facility] HermannBEDSIDE GLUCOSE WLBCLGG3997-77-12 18:22:18229Snyjizrw HermannBEDSIDE GLUCOSE GRNJLXC4162-27-59 17:03:78102Kjdyzbbv HermannBEDSIDE GLUCOSE LXIQKVA3990-80-14 12:20:35764Quafteoq HermannBEDSIDE GLUCOSE RPQRDQL3378-57-73 03:03:12874Eqfzkehc HermannBEDSIDE GLUCOSE TESTING 2011-07-31 22:04:86992Fcuypnyw JtldansLHUXOWEFV3495-66-72 09:32:00<0.02[facility] YsdbnigCXGCWMERL5422-47-13 09:32:0035[facility] MugpmadMWFFESRTR1939-80-84 04:01:0035[facility] PdcxrpcWYZGSMTGJ6315-38-99 04:01:00<0.02[facility] NWYBNKNCE8927-86-03 21:00:00<1.1[facility] HlewbdfAKAOBYFMN6490-83-68 21:00:0045 Memorial EeyxbyqZLXXIXIEJ3099-05-30 21:00:00<0.5[facility] HermannCHEMISTRY 2011-07-27 21:00:00<0.02[facility] ZofrgmvDLGHZAIXD4597-52-29 21:00:45434Flrhuerk AjtyortGKHLOTIQF0993-62-25 21:00:0021[facility] XtmeqcsBJOIDQDYL7946-31-73 21:00:22331Vxyehura DcxunwtLXTAZFEXE6543-78-75 21:00:003.9[facility] OTYYLOEJB3312-27-54 21:00:000.8[facility] IroiyxbHCYYIHISW6753-73-02 21:00:78668 [facility] UkwztpzPWFXRMBVC7495-99-87 21:00:0023[facility] HermannCHEMISTRY 2011-07-27 21:00:000.4[facility] JzwdqiuRIHTWEKKR4769-30-58 21:00:0099[facility] YzyaihdMNMCBLRRJ3442-22-31 21:00:006[facility] BprfgffBYJXBHSQD2182-38-50 21:00:00 22[facility] KicbqzvXXFWHKPQH0903-03-62 21:00:008.0[facility] HermannCHEMISTRY 2011-07-27 21:00:003.8[facility] LveljbfJCDNBGTBG7803-46-37 21:00:008.9[facility] JhtzuwfBKCXVFVOS7752-46-93 21:00:000.9[facility] ZemrjyrGNAHLQCZX5109-70-60 21:00:0029[facility] LvkiukpKEOZGWVTZ1158-33-72 21:00:004.2[facility] RGYTLDFFJ8486-27-01 21:00:0014.9[facility] OujmwdhLIESEWAGDV3577-58-19 21:00:00 73.9[facility] HzqzluoHQDADBYVWB5888-27-54 21:00:000.6[facility]annHEMATOLOGY 2011-07-27 21:00:0020.8[facility] JmdgxofONNBNTJEWP8660-03-36 21:00:007.5[facility] GbpvuiwRVXJPVPMED5016-15-57 21:00:000.3[facility] RslsjznVKYXQHPBWT0399-98-91 21:00:004.4[facility] RzhwopjUZKMJSFAZD6720-32-28 21:00:002.1[facility] CQKUNVJNKI3925-95-60 21:00:000.0[facility] IpaaptsJGQKGARLEJ0916-10-97 21:00:000.4 [facility] NtxsrhtHZDKKOMOIB0322-73-61 21:00:000.1[facility]annHEMATOLOGY 2011-07-27 21:00:007.9[facility] HyhgyrtTXBZITMNWW9417-97-00 21:00:0035.4[facility] UkgyxtrBLTEZGPPHU1886-77-93 21:00:00* Test Item Value Reference Range Interpretation Comments MCH (test code = MCH) 29.2 pg 27.0-31.0 N [facility] JxnzcmuSIAYTASITU0185-72-79 21:00:0013.2[facility] HermannHEMATOLOGY 2011-07-27 21:00:91785Ksplvuue CfzxqrmMXCFYETIMX4810-93-96 21:00:004.86[facility] OmpeskwMIUAFBGUMN4601-56-11 21:00:0040.0[facility] FamggxiQCBAVJNRYV9462-83-17 21:00:0082.4[facility] PnsscdmSTWYBCEHKN6475-13-03 21:00:0014.2[facility] ZYWVZQLEHS6742-94-09 21:00:0010.2[facility] HiyxpkwRGUAWWVDFE8301-01-16 21:00:00 0.95[facility] EqtjxhtJNYNZNMBVG6400-54-57 21:00:00* Test Item Value Reference Range Interpretation Comments PT (test code = PT) 12.7 s 12.0-14.7 [facility]GPNSMZ4164-73-14 21:00:00* Test Item Value Reference Range Interpretation Comments PTT (test code = PTT) 25.2 s 22.9-35.8 [facility]
--- NOTE | 2020-05-27 23:00 | Emergency Department Note ---
History of Present Illnes History of Present Illness Chief Complaint: General Medicine Complaints History of Present Illness This is a 65 year old female female pt presents to the er by son c/o bleeding from fistula site today after having dialysis done; son states they have changed dressing x3 times before arriving to er; nad noted at this time . Historian: Family Member Arrival Mode: Car Onset (how long ago): hour(s) (5) Location: left arm Quality: bleeding from fistula Radiation: Reports non-radiation Severity: mild Onset quality: sudden Duration (how long): hour(s) (6) Timing of current episode: constant Progression: unchanged Chronicity: new Context: Denies recent illness, Denies recent surgery Relieving factors: none Exacerbating factors: none Associated symptoms: Reports denies other symptoms Past Medical/Family History Physician Review I have reviewed the patient's past medical and family history. Any updates have been documented here. 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 Past Surgical History: Cholecysctectomy, Appendectomy, Hysterectomy Other Surgery: PEG TUBE PLACEMENT Social History Smoking Cessation: Never Smoker Alcohol Use: None Any Illegal Drug Use: No Family History Family history of heart diseas: No Other Last Tetanus: UNK Review of Systems Review of Systems Constitutional: Reports no symptoms EENTM: Reports no symptoms Cardiovascular: Reports no symptoms Respiratory: Reports no symptoms Gastrointestinal: Reports no symptoms Genitourinary: Reports no symptoms Musculoskeletal: Reports as per HPI Integumentary: Reports no symptoms Neurological: Reports no symptoms Psychological: Reports no symptoms Endocrine: Reports no symptoms Hematological/Lymphatic: Reports no symptoms Physical Exam Related Data Allergies: Coded Allergies: diphenhydramine (Verified Allergy, Severe, RASH, 04/17/19) iodine (Verified Allergy, Severe, VOMITING, 04/17/19) IV IODINE ONLY tomato (Verified Allergy, Severe, RASH/VOMITING, 04/17/19) PT STATES TOMATO SAUCE vancomycin (Verified Allergy, Severe, RASH/TURNS RED, 04/17/19) Triage Vital Signs Vital Signs Date Time Temp Pulse Resp B/P (MAP) Pulse Ox O2 Delivery O2 Flow Rate FiO2 05/27/20 22:15 98.1 85 20 153/79 100 Room Air Vital signs reviewed: Yes Physical Exam CONSTITUTIONAL Constitutional: Present well-developed, Present well-nourished; Absent distressed HENT HENT: Present normocephalic, Present atraumatic, Present oropharynx clear/moist, Present nose normal HENT L/R: Present left ext ear normal, Present right ext ear normal EYES Eyes: Reports PERRL, Reports conjunctivae normal NECK Neck: Present ROM normal PULMONARY Pulmonary: Present effort normal, Present breath sounds normal CARDIOVASCULAR Cardiovascular: Present regular rhythm, Present heart sounds normal, Present capillary refill normal, Present normal rate GASTROINTESTINAL Abdominal: Present soft, Present nontender, Present bowel sounds normal GENITOURINARY Genitourinary: Present exam deferred SKIN Skin: Present warm, Present dry MUSCULOSKELETAL Musculoskeletal: Present ROM normal, Present other (minimal bleeding from puncture site to av fistula left arm) NEUROLOGICAL Neurological: Present alert, Present oriented x 3, Present no gross motor or sensory deficits PSYCHOLOGICAL Psychological: Present mood/affect normal, Present judgement normal Results Laboratory Laboratory Laboratory Tests Test 05/27/20 22:54 White Blood Count 9.96 x10e3/uL (4.8-10.8) Red Blood Count 4.13 x10e6/uL (3.6-5.1) Hemoglobin 11.6 g/dL (12.0-16.0) Hematocrit 34.7 % (34.2-44.1) Mean Corpuscular Volume 84.0 fL (81-99) Mean Corpuscular Hemoglobin 28.1 pg (28-32) Mean Corpuscular Hemoglobin Concent 33.4 g/dL (31-35) Red Cell Distribution Width 15.5 % (11.7-14.4) Platelet Count 316 x10e3/uL (140-360) Neutrophils (%) (Auto) 67.4 % (38.7-80.0) Lymphocytes (%) (Auto) 21.4 % (18.0-39.1) Monocytes (%) (Auto) 6.2 % (4.4-11.3) Eosinophils (%) (Auto) 3.8 % (0.0-6.0) Basophils (%) (Auto) 0.8 % (0.0-1.0) Neutrophils # (Auto) 6.7 (2.1-6.9) Lymphocytes # (Auto) 2.1 (1.0-3.2) Monocytes # (Auto) 0.6 (0.2-0.8) Eosinophils # (Auto) 0.4 (0.0-0.4) Basophils # (Auto) 0.1 (0.0-0.1) Absolute Immature Granulocyte (auto 0.04 x10e3/uL (0-0.1) Prothrombin Time 12.8 seconds (11.9-14.5) Prothromb Time International Ratio 0.92 Activated Partial Thromboplast Time 35.0 seconds (23.8-35.5) Sodium Level 137 mmol/L (136-145) Potassium Level 3.0 mmol/L (3.5-5.1) Chloride Level 101 mmol/L (98-107) Carbon Dioxide Level 25 mmol/L (22-29) Anion Gap 14.0 mmol/L (8-16) Blood Urea Nitrogen 30 mg/dL (7-26) Creatinine 2.18 mg/dL (0.57-1.11) Estimat Glomerular Filtration Rate 22 ML/MIN (60-) BUN/Creatinine Ratio 14 (6-25) Glucose Level 130 mg/dL (74-118) Calcium Level 8.4 mg/dL (8.4-10.2) Lab results reviewed: Yes Assessment & Plan Medical Decision Making MDM pressure dressing applies to left arm cbc, bmp, pt/ptt ordered to eval for thrombocytopenia, coagulopathy I SPOKE WITH DR W[place] AT [facility] , SHE ACCEPTS PT FOR TRANSFER, I SPOKE WITH THE FELLOW FOR DR MACY BURKSULAR SURGEON [employer] Assessment & Plan Final Impression: (1) ESRD (end stage renal disease) (2) Hemorrhage of arteriovenous fistula Depart Disposition: TRANSFER ASSISTED Last Vital Signs Date Time Temp Pulse Resp B/P (MAP) Pulse Ox O2 Delivery O2 Flow Rate FiO2 05/27/20 22:15 98.1 85 20 153/79 100 Room Air Home Meds Reported Medications Lisinopril (LISINOPRIL) 10 Mg Tablet, 20 MG PO DAILY, #30 TAB 05/28/20 Alprazolam (ALPRAZOLAM) 1 Mg Tablet, 1 MG PO UD, #30 TAB To be given on Saturday, Saturday, and Saturday before dialysis. Or can be given on any day that dialysis falls on. To be given prior to dialysis. 04/08/20 Quetiapine Fumarate (QUETIAPINE FUMARATE) 25 Mg Tablet, 25 MG PO DAILY 04/08/20 Pantoprazole Sodium* (PROTONIX) 40 Mg Tablet.dr, 40 MG PO DAILY, TAB 04/08/20 Atorvastatin Calcium (ATORVASTATIN CALCIUM) 80 Mg Tablet, 80 MG PO HS 08/11/19 Clopidogrel Bisulfate (CLOPIDOGREL) 75 Mg Tablet, 75 MG PO DAILY 08/11/19 Amlodipine Besylate (AMLODIPINE BESYLATE) 10 Mg Tablet, 10 MG PO DAILY 08/11/19 Aspirin (ASPIRIN) 81 Mg Tab.chew, 81 MG PO DAILY 08/11/19 Discontinued Reported Medications Famotidine (FAMOTIDINE) 20 Mg Tab, 20 MG PEG Q48H 08/11/19 Lisinopril (PRINAVIL / ZESTRIL) 20 Mg Tablet, 20 MG PEG Q12H 08/11/19 Nifedipine (NIFEDIPINE) 20 Mg Capsule, 20 MG PEG DAILY 08/11/19 Clonidine (CLONIDINE) 1 Each Patch.tdwk, Q72H 08/11/19 Discontinued Scripts Cefuroxime Axetil (CEFUROXIME) 250 Mg Tablet, 500 MG PO Q12H for 7 Days, TAB Prov:CELENA CHRISTENSEN MD 04/10/20 RADHA QUIROZ MD May 27, 2020 23:00
[2020-05-27 23:14] LABS: BASOPHILS # (AUTO) 0.1 (0.0-0.1); BASOPHILS % 0.8 % (0.0-1.0); EOSINOPHILS # (AUTO) 0.4 (0.0-0.4); EOSINOPHILS % 3.8 % (0.0-6.0); HEMATOCRIT 34.7 % (34.2-44.1); HEMOGLOBIN 11.6 g/dL (12.0-16.0); LYMPHOCYTES # (AUTO) 2.1 (1.0-3.2); LYMPHOCYTES % 21.4 % (18.0-39.1); MEAN CORPUSCULAR HEMOGLOBIN 28.1 pg (28-32); MEAN CORPUSCULAR HGB CONC 33.4 g/dL (31-35); MONOCYTES # (AUTO) 0.6 (0.2-0.8); MONOCYTES % 6.2 % (4.4-11.3); NEUTROPHILS # (AUTO) 6.7 (2.1-6.9); NEUTROPHILS % 67.4 % (38.7-80.0); PLATELET COUNT 316 x10e3/uL (140-360); RED BLOOD COUNT 4.13 x10e6/uL (3.6-5.1); RED CELL DISTRIBUTION WIDTH 15.5 % (11.7-14.4)
[2020-05-27 23:19] LABS: INR 0.92; PROTHROMBIN TIME 12.8 seconds (11.9-14.5)
[2020-05-27 23:25] LABS: CALCIUM 8.4 mg/dL (8.4-10.2); CREATININE, SERUM 2.18 mg/dL (0.57-1.11)
--- NOTE | 2020-05-28 00:15 | NUR ---
Site continues to slowly drain blood. ER aware.
--- NOTE | 2020-05-28 00:17 | NUR ---
New dressing applied to left arm AV fistula.
--- NOTE | 2020-05-28 01:00 | NUR ---
TRANSFER INITIATED TO [facility]
[2020-05-28] MEDS ORDERED: LISINOPRIL10 MG PO (01:22)
[2020-05-28 02:35] VITALS: BP 165/58
--- NOTE | 2020-05-28 02:43 | Diagnostic Imaging Report ---
X-ray left humerus 2 views HISTORY: Pain. COMPARISON: None available. FINDINGS: Bones: No acute displaced fracture. Osseous alignment is within normal limits. Joints: The joint spaces are well-maintained. Soft tissues: Surgical clips in the soft tissues at the antecubital fossa. IMPRESSION: No acute radiographic osseous abnormality. Signed by: Freddy Villarreal DO on 05/28/2020 2:40 AM
--- NOTE | 2020-05-28 03:35 | NUR ---
New brief applied at this time
--- NOTE | 2020-05-28 04:22 | NUR ---
New dressing applied to left upper arm. Small amount of blood continues to drain from left AV fistula.
== END 2020-05-28 04:44 | disposition other institution (70) ==
LOC: ER 22:01
DX: T82.838A Hemorrhage due to vascular prosthetic devices, implants and grafts, initial encounter (principal); I12.0 Hypertensive chronic kidney disease with stage 5 chronic kidney disease or end stage renal disease; E11.22 Type 2 diabetes mellitus with diabetic chronic kidney disease; N18.6 End stage renal disease; Z99.2 Dependence on renal dialysis; E78.5 Hyperlipidemia, unspecified; K21.9 Gastro-esophageal reflux disease without esophagitis; I25.10 Atherosclerotic heart disease of native coronary artery without angina pectoris; H54.61 Unqualified visual loss, right eye, normal vision left eye
CPT/HCPCS: 36415; 80048; 85025; 85610; 85730; 99284

== ENCOUNTER 2020-07-03 14:41 | Emergency (ER) | payer MEDICARE, OTHER ==
[~2020-07-03] VITALS: Ht 157.5 cm; Wt 55.3 kg
[2020-07-03] MEDS ORDERED: PANTOPRAZOLE 40 MG 10ML VIAL IV NR (15:00)
[2020-07-03] MEDS ORDERED: ONDANSETRON HCL INJ 2MG/ML 2ML 2 MG/ML VIAL IV NR (15:00)
[2020-07-03 15:49] LABS: BASOPHILS # (AUTO) 0.1 (0.0-0.1); BASOPHILS % 1.1 % (0.0-1.0); EOSINOPHILS # (AUTO) 0.2 (0.0-0.4); EOSINOPHILS % 2.4 % (0.0-6.0); HEMATOCRIT 33.7 % (34.2-44.1); LYMPHOCYTES # (AUTO) 1.6 (1.0-3.2); LYMPHOCYTES % 19.3 % (18.0-39.1); MEAN CORPUSCULAR HEMOGLOBIN 28.5 pg (28-32); MEAN CORPUSCULAR HGB CONC 32.6 g/dL (31-35); MEAN CORPUSCULAR VOLUME 87.3 fL (81-99); MONOCYTES # (AUTO) 0.3 (0.2-0.8); NEUTROPHILS # (AUTO) 6.1 (2.1-6.9); NEUTROPHILS % 72.8 % (38.7-80.0); PLATELET COUNT 351 x10e3/uL (140-360); RED BLOOD COUNT 3.86 x10e6/uL (3.6-5.1); RED CELL DISTRIBUTION WIDTH 17.2 % (11.7-14.4)
[2020-07-03 15:57] LABS: INR 0.89; PARTIAL THROMBOPLASTIN TIME 29.1 seconds (23.8-35.5); PROTHROMBIN TIME 12.6 seconds (11.9-14.5)
[2020-07-03 16:06] LABS: ALBUMIN 3.9 g/dL (3.5-5.0); ALBUMIN/GLOBULIN RATIO 1.3 (0.8-2.0); ANION GAP 17.2 mmol/L (8-16); CALCIUM 8.9 mg/dL (8.4-10.2); CREATININE, SERUM 3.95 mg/dL (0.57-1.11); POTASSIUM 3.2 mmol/L (3.5-5.1)
[2020-07-03 16:13] LABS: CREATINE KINASE MB 0.8 ng/mL (0-5.0)
[2020-07-03 17:25] LABS: CLARITY,URINE CLOUDY (CLEAR); COLOR,URINE YELLOW (YELLOW); LEUKOCYTE ESTERASE ,URINE 1+ (NEGATIVE)
[2020-07-03 17:26] LABS: KETONES,URINE NEGATIVE (NEGATIVE); NITRITE,URINE NEGATIVE (NEGATIVE); PROTEIN,URINE DIPSTICK >=300 (NEGATIVE); URINE UROBILINOGEN 0.2 mg/dL (0.2 - 1)
[2020-07-03 17:40] LABS: BACTERIA,URINE MANY /HPF; EPITHELIAL CELLS,URINE FEW /LPF; WBC,URINE (MAN) >50 /HPF (0-5)
[2020-07-03] MEDS ORDERED: CEFTRIAXONE SOD 1 GM/NS 50 ML 50 ML IV ONE (19:00)
[2020-07-03 19:09] VITALS: BP 154/86
== END 2020-07-03 20:49 | disposition home or self-care (01) ==
LOC: ER 15:02
DX: N39.0 Urinary tract infection, site not specified (principal); R11.2 Nausea with vomiting, unspecified; I12.9 Hypertensive chronic kidney disease with stage 1 through stage 4 chronic kidney disease, or unspecified chronic kidney disease; E11.22 Type 2 diabetes mellitus with diabetic chronic kidney disease; N18.9 Chronic kidney disease, unspecified; Z99.2 Dependence on renal dialysis; I51.7 Cardiomegaly; J98.11 Atelectasis; H54.61 Unqualified visual loss, right eye, normal vision left eye; E78.5 Hyperlipidemia, unspecified; K21.9 Gastro-esophageal reflux disease without esophagitis
CPT/HCPCS: 36415; 70450; 71045; 74176; 80053; 81001; 82550; 82553; 84484; 85025; 85610; 85730; 87040; 87086; 99284; C9113; J0696; J2405; 87186

== ENCOUNTER 2020-10-18 11:20 | Emergency (ER) | payer MEDICARE, OTHER ==
[~2020-10-18] VITALS: Ht 157.5 cm; Wt 43.1 kg
[2020-10-18] MEDS ORDERED: DIATRIZOATE MEGL/DIATRIZOA SOD 30 ML BTL PO ONE (12:01)
[2020-10-18 12:23] LABS: BASOPHILS # (AUTO) 0.1 (0.0-0.1); EOSINOPHILS # (AUTO) 0.3 (0.0-0.4); EOSINOPHILS % 3.6 % (0.0-6.0); HEMOGLOBIN 7.9 g/dL (12.0-16.0); LYMPHOCYTES # (AUTO) 2.2 (1.0-3.2); MEAN CORPUSCULAR HGB CONC 34.6 g/dL (31-35); MEAN CORPUSCULAR VOLUME 86.7 fL (81-99); MONOCYTES # (AUTO) 0.5 (0.2-0.8); MONOCYTES % 6.4 % (4.4-11.3); NEUTROPHILS # (AUTO) 4.3 (2.1-6.9); NEUTROPHILS % 58.5 % (38.7-80.0); PLATELET COUNT 351 x10e3/uL (140-360); RED BLOOD COUNT 2.63 x10e6/uL (3.6-5.1); RED CELL DISTRIBUTION WIDTH 14.7 % (11.7-14.4)
[2020-10-18 12:28] LABS: HEMATOCRIT 22.8 % (34.2-44.1)
[2020-10-18 12:45] LABS: ALBUMIN 3.5 g/dL (3.5-5.0); ALBUMIN/GLOBULIN RATIO 1.2 (0.8-2.0); ANION GAP 16.4 mmol/L (8-16); CALCIUM 8.7 mg/dL (8.4-10.2); CREATININE, SERUM 3.04 mg/dL (0.57-1.11); POTASSIUM 3.4 mmol/L (3.5-5.1)
[2020-10-18] MEDS ORDERED: GOLYTELY SOLU4000 M1 PO (14:18)
[2020-10-18 14:25] VITALS: BP 168/72
== END 2020-10-18 14:26 | disposition home or self-care (01) ==
LOC: ER 11:41
DX: R11.2 Nausea with vomiting, unspecified (principal); K62.89 Other specified diseases of anus and rectum; G30.9 Alzheimer's disease, unspecified; F02.80 Dementia in other diseases classified elsewhere, unspecified severity, without behavioral disturbance, psychotic disturbance, mood disturbance, and anxiety; I12.0 Hypertensive chronic kidney disease with stage 5 chronic kidney disease or end stage renal disease; E11.22 Type 2 diabetes mellitus with diabetic chronic kidney disease; N18.6 End stage renal disease; Z99.2 Dependence on renal dialysis; E78.5 Hyperlipidemia, unspecified; H54.61 Unqualified visual loss, right eye, normal vision left eye
CPT/HCPCS: 36415; 71045; 74176; 80053; 83880; 84484; 85025; 93005; 99283

== ENCOUNTER 2020-12-13 17:33 | Emergency (ER) | payer MEDICARE, OTHER ==
[~2020-12-13] VITALS: Ht 157.5 cm; Wt 43.1 kg
[~2020-12-13 17:33] MED LIST changes: +GOLYTELY SOLU4000 M1 PO
[2020-12-13 18:24] LABS: BASOPHILS # (AUTO) 0.1 (0.0-0.1); BASOPHILS % 0.8 % (0.0-1.0); EOSINOPHILS # (AUTO) 0.2 (0.0-0.4); EOSINOPHILS % 2.7 % (0.0-6.0); HEMATOCRIT 35.2 % (34.2-44.1); HEMOGLOBIN 11.7 g/dL (12.0-16.0); LYMPHOCYTES # (AUTO) 2.2 (1.0-3.2); LYMPHOCYTES % 35.2 % (18.0-39.1); MEAN CORPUSCULAR HEMOGLOBIN 30.2 pg (28-32); MEAN CORPUSCULAR HGB CONC 33.2 g/dL (31-35); MEAN CORPUSCULAR VOLUME 90.7 fL (81-99); MONOCYTES # (AUTO) 0.3 (0.2-0.8); MONOCYTES % 4.8 % (4.4-11.3); NEUTROPHILS # (AUTO) 3.5 (2.1-6.9); NEUTROPHILS % 55.7 % (38.7-80.0); PLATELET COUNT 264 x10e3/uL (140-360); RED BLOOD COUNT 3.88 x10e6/uL (3.6-5.1); RED CELL DISTRIBUTION WIDTH 13.3 % (11.7-14.4)
[2020-12-13 18:36] LABS: INR 0.93
[2020-12-13 18:37] LABS: PARTIAL THROMBOPLASTIN TIME 28.3 seconds (23.8-35.5)
[2020-12-13 18:40] LABS: ALBUMIN 3.5 g/dL (3.5-5.0); ALBUMIN/GLOBULIN RATIO 1.2 (0.8-2.0); ANION GAP 18.4 mmol/L (8-16); CALCIUM 8.7 mg/dL (8.4-10.2); CREATININE, SERUM 3.66 mg/dL (0.57-1.11); POTASSIUM 4.4 mmol/L (3.5-5.1)
[2020-12-13] MEDS ORDERED: LIDOCAINE HCL 1% LOCAL INJ 20 ML VIAL ONE (21:00)
[2020-12-13] MEDS ORDERED: SILVER NITRATE SWABS ONE (21:00)
[2020-12-13 21:09] VITALS: BP 136/98
== END 2020-12-13 21:14 | disposition home or self-care (01) ==
LOC: ER 18:15
DX: T82.838A Hemorrhage due to vascular prosthetic devices, implants and grafts, initial encounter (principal); I12.0 Hypertensive chronic kidney disease with stage 5 chronic kidney disease or end stage renal disease; E11.22 Type 2 diabetes mellitus with diabetic chronic kidney disease; N18.6 End stage renal disease; Z99.2 Dependence on renal dialysis; I25.10 Atherosclerotic heart disease of native coronary artery without angina pectoris; E78.5 Hyperlipidemia, unspecified; G30.9 Alzheimer's disease, unspecified; F02.80 Dementia in other diseases classified elsewhere, unspecified severity, without behavioral disturbance, psychotic disturbance, mood disturbance, and anxiety; H54.61 Unqualified visual loss, right eye, normal vision left eye; Z86.73 Personal history of transient ischemic attack (TIA), and cerebral infarction without residual deficits; Z93.1 Gastrostomy status
CPT/HCPCS: 35190; 36415; 80053; 85025; 85610; 85730; 99284; J2001

== ENCOUNTER 2021-01-25 14:53 | Emergency (ER) | payer MEDICARE, OTHER ==
[~2021-01-25] VITALS: Ht 157.5 cm; Wt 43.1 kg
[2021-01-25 15:47] LABS: BASOPHILS # (AUTO) 0.1 (0.0-0.1); BASOPHILS % 1.2 % (0.0-1.0); EOSINOPHILS # (AUTO) 0.2 (0.0-0.4); EOSINOPHILS % 3.9 % (0.0-6.0); HEMATOCRIT 32.4 % (34.2-44.1); HEMOGLOBIN 10.6 g/dL (12.0-16.0); LYMPHOCYTES # (AUTO) 1.6 (1.0-3.2); LYMPHOCYTES % 33.3 % (18.0-39.1); MEAN CORPUSCULAR HEMOGLOBIN 28.9 pg (28-32); MEAN CORPUSCULAR HGB CONC 32.7 g/dL (31-35); MEAN CORPUSCULAR VOLUME 88.3 fL (81-99); MONOCYTES # (AUTO) 0.2 (0.2-0.8); MONOCYTES % 4.5 % (4.4-11.3); NEUTROPHILS # (AUTO) 2.8 (2.1-6.9); NEUTROPHILS % 56.9 % (38.7-80.0); PLATELET COUNT 304 x10e3/uL (140-360); RED BLOOD COUNT 3.67 x10e6/uL (3.6-5.1); RED CELL DISTRIBUTION WIDTH 14.2 % (11.7-14.4)
[2021-01-25 15:57] LABS: INR 0.93; PROTHROMBIN TIME 12.7 seconds (11.9-14.5)
[2021-01-25 15:58] LABS: PARTIAL THROMBOPLASTIN TIME 28.4 seconds (23.8-35.5)
[2021-01-25 16:01] LABS: ALBUMIN/GLOBULIN RATIO 1.3 (0.8-2.0); CALCIUM 9.1 mg/dL (8.4-10.2); CREATININE, SERUM 4.72 mg/dL (0.57-1.11)
[2021-01-25 16:09] LABS: CREATINE KINASE MB 0.4 ng/mL (0-5.0)
[2021-01-25] MEDS ORDERED: ONDANSETRON ODT4 MG PO (18:51)
== END 2021-01-25 19:05 | disposition home or self-care (01) ==
LOC: ER 16:49
DX: R11.10 Vomiting, unspecified (principal); I12.0 Hypertensive chronic kidney disease with stage 5 chronic kidney disease or end stage renal disease; E11.22 Type 2 diabetes mellitus with diabetic chronic kidney disease; N18.6 End stage renal disease; Z99.2 Dependence on renal dialysis; F03.90 Unspecified dementia, unspecified severity, without behavioral disturbance, psychotic disturbance, mood disturbance, and anxiety; E78.5 Hyperlipidemia, unspecified; I25.10 Atherosclerotic heart disease of native coronary artery without angina pectoris; Z86.73 Personal history of transient ischemic attack (TIA), and cerebral infarction without residual deficits; H54.61 Unqualified visual loss, right eye, normal vision left eye; Z93.1 Gastrostomy status
CPT/HCPCS: 36415; 71045; 74176; 80053; 82550; 82553; 83690; 84484; 85025; 85610; 85730; 99284

== ENCOUNTER → 2021-07-06 | Day surgery (SDC) | payer MEDICARE, OTHER ==
[2021-07-04 10:44] LABS: BASOPHILS # (AUTO) 0.1 (0.0-0.1); BASOPHILS % 1.1 % (0.0-1.0); EOSINOPHILS # (AUTO) 0.2 (0.0-0.4); EOSINOPHILS % 3.2 % (0.0-6.0); HEMATOCRIT 37.1 % (34.2-44.1); HEMOGLOBIN 11.7 g/dL (12.0-16.0); LYMPHOCYTES # (AUTO) 1.5 (1.0-3.2); LYMPHOCYTES % 31.8 % (18.0-39.1); MEAN CORPUSCULAR HEMOGLOBIN 28.5 pg (28-32); MEAN CORPUSCULAR HGB CONC 31.5 g/dL (31-35); MEAN CORPUSCULAR VOLUME 90.5 fL (81-99); MONOCYTES # (AUTO) 0.2 (0.2-0.8); MONOCYTES % 4.8 % (4.4-11.3); NEUTROPHILS # (AUTO) 2.8 (2.1-6.9); NEUTROPHILS % 58.9 % (38.7-80.0); PLATELET COUNT 175 x10e3/uL (140-360); RED CELL DISTRIBUTION WIDTH 15.9 % (11.7-14.4)
[~2021-07-06] MED LIST changes: +LIDOCAINE HCL 2% LOCAL INJ 5 ML SDV VIAL INJ ONE; +ONDANSETRON ODT4 MG PO; +PROPOFOL IV EMULSION 10 MG/ML 20 ML VIAL ONE; +SODIUM CHLORIDE 0.9% 500ML 500 ML ONE
[2021-07-06 15:00] VITALS: BP 160/67
== END | disposition home or self-care (01) ==
LOC: OR 09:30
PROVIDERS: ATTEND Internal Medicine Gastroenterology
DX: Z43.1 Encounter for attention to gastrostomy (principal); K29.60 Other gastritis without bleeding; K21.9 Gastro-esophageal reflux disease without esophagitis; E11.22 Type 2 diabetes mellitus with diabetic chronic kidney disease; I12.0 Hypertensive chronic kidney disease with stage 5 chronic kidney disease or end stage renal disease; N18.6 End stage renal disease; G92.9 Unspecified toxic encephalopathy; F03.90 Unspecified dementia, unspecified severity, without behavioral disturbance, psychotic disturbance, mood disturbance, and anxiety; Z88.8 Allergy status to other drugs, medicaments and biological substances; Z88.1 Allergy status to other antibiotic agents; Z91.041 Radiographic dye allergy status; Z01.810 Encounter for preprocedural cardiovascular examination; Z01.812 Encounter for preprocedural laboratory examination; Z20.822 Contact with and (suspected) exposure to COVID-19; Z79.02 Long term (current) use of antithrombotics/antiplatelets; Z79.82 Long term (current) use of aspirin; Z79.899 Other long term (current) drug therapy; Z99.2 Dependence on renal dialysis; Z99.3 Dependence on wheelchair; Z86.73 Personal history of transient ischemic attack (TIA), and cerebral infarction without residual deficits; Z87.440 Personal history of urinary (tract) infections
CPT/HCPCS: 36415 ×2; 43247; 84132; 85025; 93005; J7040; U0002; 43235; 43246; J2001